=== PATIENT | male | born 1945 | race Caucasian/White ===

== ENCOUNTER 2018-07-10 09:22 | Emergency (ER) | payer MEDICARE, OTHER, SELFPAY ==
[2018-07-10 09:23] VITALS: BP 160/88; PULSE 89; RESP 17; TEMP 37.3; O2SAT 94; O2SAT 95; BMI 30.9
--- NOTE | 2018-07-10 09:24 | RAD_ITS ---
STUDY: X-RAY CHEST REASON FOR EXAM: Male, 73 years old. Cough and chest congestion. TECHNIQUE: PA and lateral views of the chest. COMPARISON: None. FINDINGS: The lungs are clear and expanded. Scattered calcified granulomas. There is no demonstrated pleural abnormality. Normal size heart. Normal mediastinum and luann. Normal visualized pulmonary arteries. Normal visualized aortic arch and descending thoracic aorta. There are degenerative changes of the visualized thoracic spine. Normal visualized ribs, clavicles, and shoulders. Hiatal hernia. RAD/Chest PA and Lateral IMPRESSION: No acute abnormality is seen. Electronically Signed: Miguel Snyder, at 10:37 EDT , Service support ,
--- NOTE | 2018-07-10 09:25 | ED.VISSUMM ---
- ER Visit Summary Date of Service: 07/10/18 Chief Complaint: Cough congestion fever History of Present Illness: The patient is a 73 M with cough congestion and myalgias for the past 3 days he noticed a temperature of 100 today. He has sputum that is clear but was yellow earlier today. He has no breathing difficulty. He has no abdominal pain nausea vomiting or diarrhea. Physical Examination: Not appear in acute distress. Moist mucous membranes, he has upper airway congestion, rhinorrhea, swollen nasal turbinates some postnasal drip. No C-spine tenderness supple neck. Regular rate and rhythm without any obvious murmurs Clear lungs bilaterally speaking in full sentences without any obvious respiratory distress Abdomen soft and nontender no guarding or rebound Moves all extremities without any difficulty or pain. Skin does not show any obvious rashes or lesions, no trauma. Alert oriented ?3 with no gross focal deficit Emergency Department Course and Treatment: An unremarkable ED work-up. He has bronchitis, he has yellow sputum and fever he may have early pneumonia I will treat as such. Discharge stable condition Impression: [Acute bronchitis] This note was generated with [employer] dictation software. It may contain incorrect words, spelling, and punctuation that were not noted in review of the chart prior to signing ED Disposition - Plan for ED Patient: Disposition: Home or Assisted Living Instructions: Acute Bronchitis Prescriptions: Doxycycline 100 mg PO DAILY #20 cap Referrals: Scooter Robertson [Primary Care Provider] - 5-7 Days
[2018-07-10 09:43] LABS: Absolute Lymphocyte Count 1.81 X10^3/ul (0.83-4.51); Absolute Neutrophil Count 8.1 X10^3/uL (2.0-7.7); Basophil# 0.01 X10^3/uL; Basophil% 0.1 % (0-1); Eosinophil# 0.15 X10^3/uL; Eosinophils% 1.3 % (0-5); Hematocrit 38.7 % (40-54); Hemoglobin 12.9 g/dl (13.0-16.5); Lymphocyte # 1.81 X10^3/ul (4.0); Lymphocyte % 16.1 % (19-41); Mean Corp Hgb Conc 33.3 g/gl (32-36); Mean Corpuscular Hgb 33.9 pg (27.0-32.0); Mean Corpuscular Volume 101.6 fL (80-94); Mean Platelet Vol. 9.8 fl (6.2-12.0); Monocyte% 9.8 % (0-10); Neutrophil # 8.13 X10^3/uL (2.7-7.7); Neutrophil % 72.6 % (47-70); Platelet Count 147 K/mm3 (150-450); RBC Distribution Width CV 15.7 % (11.6-14.6); Red Blood Count 3.81 M/mm3 (4.6-6.2); White Blood Count 11.2 K/mm3 (4.4-11.0)
[2018-07-10 09:44] LABS: POSITIVE COUNT NO; POSITIVE DIFFERENTIAL NO; POSITIVE MORPHOLOGY NO
[2018-07-10 10:00] LABS: AST(SGOT) 18 U/L (15-37); Alanine Aminotransfer ALT/SGPT 29 U/L (16-61); Albumin, Serum 3.7 g/dL (3.2-5.0); Alkaline Phosphatase 59 U/L (45-117); Anion Gap 6 (5-15); BUN 18 mg/dL (7-18); BUN/Creat Ratio 18.9 RATIO (10-20); Calcium,Total 8.9 mg/dL (8.5-10.1); Chloride 105 mmol/L (98-107); Creatinine, Serum 0.95 mg/dL (0.70-1.30); EST Glomerular Filtration Rate 82 mL/min (>60); Est Glom Filt Rate - Afr Amer 99 mL/min (>60); Estimated Creatinine Clearance 69.37 ml/min; Globulin 3.8 g/dL (2.2-4.2); Glucose 120 mg/dL (74-106); Potassium 4.1 mmol/L (3.5-5.1); Protein, Total 7.5 g/dL (6.4-8.2); Sodium Level 136 mmol/L (136-145)
[2018-07-10 10:47] VITALS: BP 126/65; PULSE 78; RESP 17; TEMP 37.4; O2SAT 94
== END 2018-07-10 10:48 | disposition home or self-care (01) ==
PROVIDERS: Emergency Provider Emergency Medicine; Family Provider Internal Medicine; PCP Internal Medicine
DX: J20.9 Acute bronchitis, unspecified (principal); J06.9 Acute upper respiratory infection, unspecified; E11.9 Type 2 diabetes mellitus without complications; Z79.84 Long term (current) use of oral hypoglycemic drugs
CPT/HCPCS: 71046; 80053; 85025; 87804; 99283

== ENCOUNTER 2018-07-23 21:54 | Observation (INO) | payer MEDICARE, OTHER, SELFPAY ==
[2018-07-23 21:55] VITALS: BP 161/74; PULSE 83; RESP 18; TEMP 36.5; O2SAT 94; BMI 31.8
--- NOTE | 2018-07-23 22:19 | CT_ITS ---
STUDY: CT ABDOMEN AND PELVIS WITHOUT CONTRAST REASON FOR EXAM: Male, 73 years old. Low back pain. RADIATION DOSAGE (If Supplied By Facility): CTDIvol = ( 16.36 ) mGy, DLP = ( 837.91 ) mGycm TECHNIQUE: Transaxial images were obtained from the dome of the diaphragm to the symphysis pubis without oral contrast, and without intravenous contrast. Sagittal and coronal images were reconstructed. Individualized dose optimization techniques were used for this CT. COMPARISON: July 12, 2016. FINDINGS: There are scattered small pulmonary calcifications consistent with old granulomatous disease. There are coronary calcifications. There is hepatomegaly with diffuse hepatic enlargement. There are surgical clips in the gallbladder fossa consistent with a prior cholecystectomy. Normal spleen. Normal pancreas. Normal bilateral adrenal glands. There is 0.2 cm calcification of the right kidney. There is 3.0 cm cyst of the left kidney. There is a small hiatal hernia. Normal small intestine. Normal colon. There is moderate stool. The appendix is visualized and appears normal. There is diffuse atherosclerotic calcification of the abdominal aorta, without a demonstrated aneurysm. Normal inferior vena cava. Normal retroperitoneum. Normal urinary bladder. There is no free fluid in the abdomen or pelvis. There is a small supraumbilical hernia containing fat. There are diffuse degenerative changes of the visualized lumbar spine. There is compression fracture of the lower spine with prior kyphoplasty. CT/Abdomen/Pelvis without Cont IMPRESSION: Right renal calcification. No hydronephrosis. Hepatomegaly. Electronically Signed: Ryan Torrez MD at 23:46 EDT , Service support ,
[2018-07-23] MEDS: Ondansetron 4 MG/2 ML Vial IV (22:42)
[2018-07-23] MEDS: Morphine 4 MG/ML Syringe IV (22:42)
[2018-07-23 22:45] VITALS: BP 131/80; PULSE 77; RESP 16; O2SAT 95
[2018-07-23 22:46] LABS: Absolute Lymphocyte Count 2.08 X10^3/ul (0.83-4.51); Absolute Neutrophil Count 5.1 X10^3/uL (2.0-7.7); Basophil# 0.02 X10^3/uL; Basophil% 0.3 % (0-1); Eosinophil# 0.04 X10^3/uL; Eosinophils% 0.5 % (0-5); Hematocrit 37.1 % (40-54); Hemoglobin 12.3 g/dl (13.0-16.5); Lymphocyte # 2.08 X10^3/ul (4.0); Lymphocyte % 26.1 % (19-41); Mean Corp Hgb Conc 33.2 g/gl (32-36); Mean Corpuscular Hgb 33.2 pg (27.0-32.0); Mean Platelet Vol. 9.3 fl (6.2-12.0); Monocyte# 0.78 X10^3/uL; Monocyte% 9.8 % (0-10); Neutrophil # 5.05 X10^3/uL (2.7-7.7); Neutrophil % 63.2 % (47-70); POSITIVE COUNT NO; POSITIVE DIFFERENTIAL NO; POSITIVE MORPHOLOGY NO; Platelet Count 163 K/mm3 (150-450); RBC Distribution Width CV 15.6 % (11.6-14.6); Red Blood Count 3.71 M/mm3 (4.6-6.2)
[2018-07-23] MEDS: 0.9% Normal Saline 1,000 ML 150 ML IV (22:46)
[2018-07-23 22:59] LABS: Anion Gap 7 (5-15); BUN 21 mg/dL (7-18); BUN/Creat Ratio 20.6 RATIO (10-20); Calcium,Total 9.3 mg/dL (8.5-10.1); Chloride 104 mmol/L (98-107); Creatinine, Serum 1.02 mg/dL (0.70-1.30); EST Glomerular Filtration Rate 76 mL/min (>60); Est Glom Filt Rate - Afr Amer 92 mL/min (>60); Estimated Creatinine Clearance 62.57 ml/min; Glucose 143 mg/dL (74-106); Sodium Level 137 mmol/L (136-145)
[2018-07-23 23:37] LABS: Mucous, Urine 0 SEEN /hpf (<or=2+); Red Blood Cells-Urine 0 SEEN /hpf (0-5); White Blood Cells 0 SEEN /hpf (0-5)
[2018-07-23 23:38] LABS: Color, Urine Yellow (Yellow); Glucose, Dipstick Normal (Normal); Ketone-Dipstick Negative (Negative); Leukocyte Esterase-Dipstick Negative /ul (Negative); Nitrite-Dipstick Negative (Negative); Occult Blood-Urine Negative /ul (Negative); Protein-Dipstick Negative (Negative); Specific Gravity, Urine 1.015 (1.002-1.030); Urine Bilirubin Dipstick Negative (Negative); Urine Clarity Clear (Clear); Urine Urobilinogen Normal (Normal)
[2018-07-23 23:43] LABS: Bacteria RARE /hpf (None Seen); Squamous Epithelial Cells - UA 0-5 SEEN /hpf (0-5)
[2018-07-23] MEDS: HYDROmorphone 1 MG/ML Syringe IV (23:47)
[2018-07-23] MEDS: diazePAM 2 MG Tablet PO (23:47)
--- NOTE | 2018-07-23 23:56 | HP.PCM_ITS ---
Problem List (1) Lower back pain Status: Acute Qualifiers: Chronicity: acute Back pain laterality: bilateral Sciatica presence: without sciatica Qualified Code(s): M54.5 - Low back pain History of Present Illness Date of Admission: 07/23/18 Chief Complaint: Low back pain The patient is a 73 year old M who was seen in the emergency room at [facility] with a chief complaint of low back pain and inability to ambulate secondary to low back pain. Patient states he moved some lawn furniture 3 days ago and noticed a sudden sharp pain in his lower back which has been poorly controlled with [id number] medications. Patient denies any symptoms of radiculopathy, he denies any problems with his bladder-he does complain of some constipation. Patient has had a history of degenerative disc disease of his lower back including a kyphoplasty of L3 and a microdiscectomy at L4. 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 Work-up in the emergency room included labs that were remarkable for a BUN of 21, hemoglobin was 12.3, glucose was 143. CT of the abdomen and pelvis was obtained which showed hepatomegaly, right renal calcification, moderate stool in colon, and diffuse degenerative changes of the lumbar spine with a compression fracture of the lower spine with prior kyphoplasty. Supraumbilical hernia containing fat was also noted to be present. Patient was given IV pain meds and Valium for muscle spasm, he had minimal relief of pain and it was felt that he would need to be placed in observation status to be seen by PT and OT and receive further treatment. Patient was placed in observation status on MedSurg 3. Past Medical History Past Medical History (Chronic Problems): Chronic Problems Herniation of nucleus pulposus (Chronic) DM2 (diabetes mellitus, type 2) (Chronic) Cellulitis (Chronic) Allergies cefepime Allergy (Verified 07/23/18 21:54) Rash Home Medications: Ambulatory Orders Medication Instructions Recorded Aspirin [Aspirin, Baby] 1 tab PO DAILY 07/11/16 Cyanocobalamin (Vitamin B-12) 500 mcg PO DAILY 07/11/16 [Vitamin B-12] Multivitamin [Daily Multiple 1 tab PO DAILY 07/11/16 Vitamin] Sitagliptin Phosphate [Januvia] 100 mg PO DAILY 07/11/16 metFORMIN HCl [Glucophage] 850 mg PO TIDCM 07/11/16 Doxycycline 100 mg PO DAILY #20 cap 07/10/18 Finasteride [Proscar] 5 mg PO DAILY 07/10/18 Glimepiride [Amaryl] 1 mg PO DAILY 07/10/18 Tamsulosin HCl [Flomax] 0.4 mg PO DAILY 07/10/18 Surgical History: cholecystectomy, rotator cuff repair, tonsillectomy, - - Kyphoplasty L4, microdiscectomy L3 Psychiatric History: No pertinent psych hx Lives: Spouse/ Significant Other Smoking Status: Never smoker Tobacco Use: Non-smoker Alcohol: None Drugs: None - *Family History Maternal History Items: - - History of CHF Paternal History Items: Heart Disease Review of Systems Constitutional: Denies: Anorexia, Chills, Fever, Night Sweats, Malaise, Weakness, Weight Change, Fatigue Eyes: Denies: Cataracts, Conjunctivae Inflammation, Double vision, Drainage HEENT: Denies: Difficulty Swallowing, Dysphasia, Ear Pain, Eye Pain, Hearing Changes, Nasal bleeding, Nasal Congestion, Post Nasal Drip Cardiovascular: Denies: Chest Pain, Claudication, Chest Pressure, Chest Tightness, Edema, Heaviness, Palpitations Respiratory: Denies: Cough, Hemoptysis, Pleuritic Pain, Shortness of Breath, Shortness of breath at rest, Shortness of breath upon exertion Gastrointestinal: Denies: Abdominal Pain, Constipation, Diarrhea, Hematemesis, Hematochezia, Nausea, Melena, Vomiting Genitourinary: Denies: Dysuria, Frequency, Hematuria, Hesitancy, Urgency Musculoskeletal: Reports: Back Pain - Over the lower lumbar area, Muscle pain - Over the lower lumbar area. Denies: Foot Pain, Hand Pain, Joint Pain, Joint stiffness, Joint swelling, Joint Tenderness, Leg Pain, Neck Pain, Shoulder Pain Skin: Denies: Dryness, Jaundice, Pruritis, Rash Neurological: Denies: Blurred vision, Double vision, Slurred speech, Difficulty swallowing, Focal weakness, Headaches, Incoordination, Numbness, Tingling Psychiatric: Denies: Anxiety, Depression, Homicidal Ideations, Suicidal Ideations Endocrine: Denies: Change in Body Habitus, Heat/ Cold Intolerance, Polydipsia, Polyuria Hematologic/ Lymphatic: Denies: Adenopathy, Anemia, Easy Bruising, Easy Bleeding, Petechiae, Purpura VTE Information - Inpt Only VTE Present on Admission: No VTE Mechan Device Prophylaxis: SCD's VTE Pharm Prophylaxis ordered?: No Reason prophylaxis not ordered:: Treatment Not Indicated - Physical Exam General: Alert, Oriented x3, Cooperative, Well developed, Well nourished HEENT: Atraumatic, PERRLA, EOMI, Normocephalic Oral: Moist Mucosa Neck: Supple, No JVD, Negative Carotid Bruits, No Nuchal Rigidity, Trachea Midline, Thyroid Normal Size and Texture Lungs: Clear to auscultation, Normal air movement, No rhonchi, No wheeze, No rales Cardiovascular: Regular rate, Regular Rhythm, Normal S1, Normal S2, No murmurs, No Ectopic Activity, PMI Normal, No rub noted, No Gallop Abdomen: Bowel Sounds Present, Soft, Non Tender, Non-Distended, Hernia - Large ventral abdominal hernia is noted Extremities: No edema, Capillary Refill Less than 3 Seconds Skin: No rashes, No breakdown Musculoskeletal: - - Decreased range of motion is noted in flexion and extension in the lumbar spine Neurological: Cranial nerves II-XII grossly intact, Neuro grossly intact, Unsteady Gait, Sensory exam intact to light touch and pain, Coordination normal, - - Patient has abnormal gait due to Psych/Mental Status: Normal Affect, Appropriate, Alert and oriented to time, place, person, mood and affect Vital Signs Temp Pulse Resp BP Pulse Ox 97.7 F L 77 16 131/80 H 95 07/23/18 21:55 07/23/18 22:45 07/23/18 22:45 07/23/18 22:45 07/23/18 22:45 Oxygen Delivery Method Room Air Weight: 99.1 kg Body Mass Index (BMI) 31.8 Finger Stick Blood Glucose 160 Laboratory Tests Past 24 Hrs 07/23/18 07/23/18 07/23/18 22:35 22:35 23:30 WBC 8.0 RBC 3.71 L Hgb 12.3 L Hct 37.1 L MCV 100.0 H MCH 33.2 H MCHC 33.2 RDW 15.6 H RDW Differential 57.0 H Plt Count 163 MPV 9.3 Immature Gran % (Auto) 0.100 Neut % (Auto) 63.2 Lymph % (Auto) 26.1 [place] % (Auto) 9.8 Eos % (Auto) 0.5 Baso % (Auto) 0.3 Absolute Neuts (auto) 5.1 Absolute Lymphs (auto) 2.08 Total Counted Not Reportable Sodium 137 Potassium 4.0 Chloride 104 Carbon Dioxide 26.0 Anion Gap 7 BUN 21 H Creatinine 1.02 Estim Creat Clear Calc 62.57 Est GFR (MDRD) Af Amer 92 Est GFR (MDRD) Non-Af 76 BUN/Creatinine Ratio 20.6 H Glucose 143 H Calcium 9.3 Urine Color Yellow Urine Clarity Clear Urine pH 6.0 Ur Specific [place] 1.015 Urine Protein Negative Urine Glucose (UA) Normal Urine Ketones Negative Urine Occult Blood Negative Urine Nitrite Negative Urine Bilirubin Negative Urine Urobilinogen Normal Ur Leukocyte Esterase Negative Urine RBC 0 SEEN Urine WBC 0 SEEN Ur Squamous Epith Cells 0-5 SEEN Urine Bacteria RARE Urine Mucus 0 SEEN Assessment/Plan All Active Problems Lower back pain (Acute) #1 acute low back pain-probably secondary to degenerative disc disease with muscle strain-patient will be placed and observation status on [facility] 3, I will place the patient on IV Decadron, programmed Valium at 2 mg 4 times a day, and he will receive IV pain medication as needed, patient will be seen by PT and OT. Patient does not want to be seen by Dr. Cordova due to the fact he had an osteomyelitis following his kyphoplasty by Dr. Cordova #2 degenerative disc disease of the lumbar spine # 3 type 2 diabetes-patient's blood sugars will be monitored, sliding scale insulin will be administered as needed, he may require more insulin coverage since he is on Decadron. #4 BPH #5 constipation-patient will be given mag citrate Code Visit OBSV E&M: 89609 Initial observation care L3
--- NOTE | 2018-07-23 23:57 | ED.VISSUMM ---
- ER Visit Summary Date of Service: 07/23/18 Chief Complaint: [Back pain] History of Present Illness: The patient is a 73 M [presents the emergency department with back pain that started 3 days ago. Patient states that he was moving some outdoor furniture around 3 days ago when he felt a sudden severe pain in his low back. Patient states the pain kind of radiates around both sides to just above his iliac crests. Pain is worse with movement. Patient having a hard time getting out of bed. He denies any pain radiating down his legs. He denies any change in bowel or bladder function other than he is had some mild constipation since yesterday. His last bowel movement was yesterday but was smaller than usual and normally he goes several times a day. He is feeling bloated. He is describing some discomfort in his abdomen. He denies any fever. He said no vomiting. He denies any saddle anesthesia. Patient denies urinary symptoms. Patient tells me he has had prior back surgery x2 with history of kyphoplasty and prior discectomy and laminectomy at L4-5.] Physical Examination: [HEENT-PERRLA, EOMI. Cranial nerves II through XII grossly intact. TMs clear. Mucous membranes moist. No adenopathy. Cardiovascular-regular rate and rhythm without murmur or ectopy Lungs-clear to auscultation, chest wall stable without crepitus or subcu emphysema Abdomen-normoactive bowel sounds, soft. Patient has some mild diffuse tenderness. There is no rebound, rigidity, or perineal signs. Back exam-patient has tenderness diffusely to the lower lumbar spine. Patient has tenderness over lumbar paraspinal muscle which are bilaterally. He has negative straight leg raises. Deep tendon reflexes are plus 1 out of 4 bilaterally at the patella and unable to obtain at the Achilles bilaterally. Patient has diminished ability to extend L5 on the right which is a chronic issue for him as patient has a foot drop on the right. Extremities-intact ?4, normal range of motion, normal pulses, atraumatic] Test Results: [CBC with differential obtained was unremarkable. Chemistries unremarkable. Urinalysis was normal. CT scan of the abdomen pelvis without contrast showed degenerative changes of the lumbar spine otherwise nothing acute.] Emergency Department Course and Treatment: [Patient was medicated with morphine and had some mild pain relief initially but then he was having a hard time getting off the CT table requiring several nurses to help him. Patient continues to complain of severe pain and he was medicated with Dilaudid 1 mg IV as well as Valium 2 mg p.o.] Treatment Plan: [Admit for pain control] Disposition: [Admit] Impression: [Intractable back pain Constipation] This note was generated with [employer] dictation software. It may contain incorrect words, spelling, and punctuation that were not noted in review of the chart prior to signing ED Disposition - Plan for ED Patient: Referrals: Scooter Robertson [Primary Care Provider] -
[2018-07-24 00:50] VITALS: BP 155/78; PULSE 76; RESP 16; TEMP 36.5; O2SAT 95; BMI 31.9
[2018-07-24] MEDS: dexAMETHasone 4 MG/ML Vial IV ×3 (01:26→11:00)
[2018-07-24] MEDS: Magnesium Citrate 300 ML PO (01:37)
[2018-07-24 06:18] VITALS: BP 137/73; PULSE 79; RESP 16; TEMP 36.4; O2SAT 93
[2018-07-24] MEDS: 0.9% NaCl Peripheral Flush Adult/Peds IV ×2 (06:24→11:00)
[2018-07-24 06:35] LABS: Bedside Glucose 215 mg/dL (70-110)
[2018-07-24] MEDS: Aspirin 81 MG TAB.CHEW PO (08:00)
[2018-07-24] MEDS: Glimepiride 1 MG Tablet PO (08:00)
[2018-07-24] MEDS: metFORMIN HCl 850 MG Tablet PO ×2 (08:00→11:00)
[2018-07-24] MEDS: diazePAM 2 MG Tablet PO (09:38)
[2018-07-24] MEDS: Finasteride 5 MG Tablet PO (09:38)
[2018-07-24] MEDS: LINAGLIPTIN 5 MG TABLET PO (09:38)
[2018-07-24] MEDS: Tamsulosin HCl 0.4 MG Capsule PO (09:38)
[2018-07-24 10:01] VITALS: BP 130/70; PULSE 77; RESP 18; TEMP 36.5; O2SAT 95
--- NOTE | 2018-07-24 10:27 | DCINST_ITS ---
You will use the following diet at home:: Cardiac Your food should be the consistency of: Regular Your liquids should be the consistency of: Regular/Thin Discharge Activity: Return to Normal Activity Weight Bearing Status: Weight bearing as tolerated Call your doctor if you observe: Uncontrolled pain Instructions: How Your Back Works, Back Safety: Pushing and Pulling, Back Safety: Lifting Allergies/Adverse Reactions: Allergies cefepime Allergy (Verified 07/23/18 21:54) Rash Medications to take at Discharge Aspirin [Aspirin, Baby] 1 tab PO DAILY 07/11/16 Cyanocobalamin (Vitamin B-12) [Vitamin B-12] 500 mcg PO DAILY 07/11/16 Multivitamin [Daily Multiple Vitamin] 1 tab PO DAILY 07/11/16 Sitagliptin Phosphate [Januvia] 100 mg PO DAILY 07/11/16 metFORMIN HCl [Glucophage] 850 mg PO TIDCM 07/11/16 Finasteride [Proscar] 5 mg PO DAILY 07/10/18 Glimepiride [Amaryl] 1 mg PO DAILY 07/10/18 Tamsulosin HCl [Flomax] 0.4 mg PO DAILY 07/10/18 Acetaminophen [Tylenol] 650 mg PO Q6H PRN PRN #30 tablet 07/24/18 MethylPREDNISolone DosePak [Medrol DosePak] 4 mg PO UD #1 box 07/24/18 The following prescriptions were given: Acetaminophen [Tylenol] 650 mg PO Q6H PRN PRN #30 tablet PRN Reason: Pain MethylPREDNISolone DosePak [Medrol DosePak] 4 mg PO UD #1 box Primary Care Physician: Scooter Robertson [Primary Care Provider] - Please follow up with your Primary Care Physician in: one week Test Results: Test results from this visit will be discussed in further detail at your follow- up appointment, if applicable. Proposed Discharge Date: 07/24/18
--- NOTE | 2018-07-24 10:27 | PCM.DC.SUM ---
Discharge Date and Diagnosis Date of Admission: 07/23/18 Date of Discharge: 07/24/18 - Primary Discharge Diagnosis acute back pain - Secondary Discharge Diagnosis Chronic Problems Herniation of nucleus pulposus (Chronic) DM2 (diabetes mellitus, type 2) (Chronic) Cellulitis (Chronic) Hospital Course and Treatment Imaging Results: Diagnostic Data Abdomen/Pelvis CT 07/23/18 22:19 IMPRESSION: Right renal calcification. No hydronephrosis. Hepatomegaly. Electronically Signed: Ryan Torrez MD at 23:46 EDT , Service support , Operations: None, - - L3 Kyphoplasty 07/13/16. Procedures: None Summary of Care Provided: The patient is a 73 year old M with a past medical history as listed. He was admitted through the ED on 07/24/2018 with a complaint of low back pain and inability to ambulate due to the pain. He had moved some lawn furniture 3 days prior to admission and notes as a substitute pain in his back which have been poorly controlled with [id number] pain medications. He had no radiculopathy symptoms and denied any urinary or bladder incontinence. He had a history of kyphoplasty of L3 microdiscectomy at L4 and subsequent osteomyelitis of his lower back due to the kyphoplasty. CT of the abdomen and pelvis showed diffuse degenerative changes of the lumbar spine with a chronic compression fracture of the lower spine with prior kyphoplasty. Patient was admitted to be managed for mechanical acute back pain. He was started on IV pain medication and Valium for muscle spasm. Due to his inability to ambulate, he was admitted and started on IV Solu-Medrol. Patient remained stable and by the day after admission, he felt much better and was able to get up and ambulate. He was evaluated by PT/OT. He remained stable and was discharged home with a script for tylenol and medrol dose pack. Patient seen and examined prior to discharge. He had no complaints. Back pain had resolved. He denied any fever, chills, cough, chest pain, palpitations, dizziness, chest pain, diarrhea or vomiting. REview of systems was otherwise negative. Labs and vitals reviewed. o/e: Vital Signs Height 5 ft 9.5 in Weight: 219 lb 5.759 oz Weight in Pounds 219.4 lbs Pulse Ox 93 Temperature 98.5 F Pulse Rate 75 Respiratory Rate 16 Blood Pressure 126/62 Blood Pressure Position Semi-Fowlers []General: Alert, Oriented x3, Cooperative, Well developed, Well nourished HEENT: Atraumatic, PERRLA, EOMI, Normocephalic Oral: Moist Mucosa Neck: Supple, No JVD, Negative Carotid Bruits, No Nuchal Rigidity, Trachea Midline, Thyroid Normal Size and Texture Lungs: Clear to auscultation, Normal air movement, No rhonchi, No wheeze, No rales Cardiovascular: Regular rate, Regular Rhythm, Normal S1, Normal S2, No murmurs, No Ectopic Activity, PMI Normal, No rub noted, No Gallop Abdomen: Bowel Sounds Present, Soft, Non Tender, Non-Distended, Hernia - Large ventral abdominal hernia is noted Extremities: No edema, Capillary Refill Less than 3 Seconds Skin: No rashes, No breakdown Musculoskeletal: - - no tenderness on palpation. Neurological: Cranial nerves II-XII grossly intact, Neuro grossly intact, Unsteady Gait, Sensory exam intact to light touch and pain, Coordination normal Psych/Mental Status: Normal Affect, Appropriate, Alert and oriented to time, place, person, mood and affect Plan as above. - Physical Exam Vital Signs Temp Pulse Resp BP Pulse Ox 97.7 F L 77 18 130/70 H 95 07/24/18 10:01 07/24/18 10:01 07/24/18 10:01 07/24/18 10:01 07/24/18 10:01 Oxygen Delivery Method Room Air Weight: 219 lb 5.759 oz Body Mass Index (BMI) 31.9 Finger Stick Blood Glucose 160 Intake and Output for Last 24 Hours 07/22/18 07/23/18 07/24/18 23:59 23:59 23:59 Intake Total 360 / 360 Balance 360 / 360 Laboratory Tests Past 24 Hrs 07/23/18 07/23/18 07/23/18 22:35 22:35 23:30 WBC 8.0 RBC 3.71 L Hgb 12.3 L Hct 37.1 L MCV 100.0 H MCH 33.2 H MCHC 33.2 RDW 15.6 H RDW Differential 57.0 H Plt Count 163 MPV 9.3 Immature Gran % (Auto) 0.100 Neut % (Auto) 63.2 Lymph % (Auto) 26.1 [place] % (Auto) 9.8 Eos % (Auto) 0.5 Baso % (Auto) 0.3 Absolute Neuts (auto) 5.1 Absolute Lymphs (auto) 2.08 Total Counted Not Reportable Sodium 137 Potassium 4.0 Chloride 104 Carbon Dioxide 26.0 Anion Gap 7 BUN 21 H Creatinine 1.02 Estim Creat Clear Calc 62.57 Est GFR (MDRD) Af Amer 92 Est GFR (MDRD) Non-Af 76 BUN/Creatinine Ratio 20.6 H Glucose 143 H Calcium 9.3 Urine Color Yellow Urine Clarity Clear Urine pH 6.0 Ur Specific [place] 1.015 Urine Protein Negative Urine Glucose (UA) Normal Urine Ketones Negative Urine Occult Blood Negative Urine Nitrite Negative Urine Bilirubin Negative Urine Urobilinogen Normal Ur Leukocyte Esterase Negative Urine RBC 0 SEEN Urine WBC 0 SEEN Ur Squamous Epith Cells 0-5 SEEN Urine Bacteria RARE Urine Mucus 0 SEEN POC Glucose 07/24/18 06:30 POC Glucose 215 H Discharge Diet: Low fat/ Low Cholesterol Discharge Activity: Return to Normal Activity Weight Bearing Status: Weight bearing as tolerated Call your doctor if you observe: Uncontrolled pain Home Medications: Medications to take at Discharge Aspirin [Aspirin, Baby] 1 tab PO DAILY 07/11/16 Cyanocobalamin (Vitamin B-12) [Vitamin B-12] 500 mcg PO DAILY 07/11/16 Multivitamin [Daily Multiple Vitamin] 1 tab PO DAILY 07/11/16 Sitagliptin Phosphate [Januvia] 100 mg PO DAILY 07/11/16 metFORMIN HCl [Glucophage] 850 mg PO TIDCM 07/11/16 Finasteride [Proscar] 5 mg PO DAILY 07/10/18 Glimepiride [Amaryl] 1 mg PO DAILY 07/10/18 Tamsulosin HCl [Flomax] 0.4 mg PO DAILY 07/10/18 Acetaminophen [Tylenol] 650 mg PO Q6H PRN PRN #30 tablet 07/24/18 MethylPREDNISolone DosePak [Medrol DosePak] 4 mg PO UD #1 box 07/24/18 Following Prescrptions Were Given to Patient: Acetaminophen [Tylenol] 650 mg PO Q6H PRN PRN #30 tablet PRN Reason: Pain MethylPREDNISolone DosePak [Medrol DosePak] 4 mg PO UD #1 box Primary Care Physician: Scooter Robertson [Primary Care Provider] - Please follow up with your Primary Care Physician in: one week Patient Instructions: How Your Back Works, Back Safety: Lifting, Back Safety: Pushing and Pulling Disposition: Home Minutes spent on discharge:: 35 Patient Condition:: Stable Medical Necessity - Tobacco Use Smoking Status: Never smoker Tobacco Use: Non-smoker Meaningful Use Info Meaningful Use Diagnoses (Choose all that apply): None applicable Code Visit Inpatient E&M: 85322 Disch Hosp
[2018-07-24 11:06] LABS: Bedside Glucose 278 mg/dL (70-110)
--- NOTE | 2018-07-24 11:46 | CASEMGMT ---
Addendum entered by Doc Aguilera 07/24/18 11:54: ARIANA Luna, made aware pt would like assistance with completing AD paperwork. Original Note: RN CM TOTER CM to room to meet with patient for initial transition planning/care coordination assessment. RN JACKELYN introduced self and role at [facility]. Pt voices understanding and consents to assessment at this time. Pt resting in bed in no distress at this time. @ bedside. Pt is A/O at this time and answers all questions appropriately. Care providers, pharmacy, and demographics verified/updated at this time. PCP: Dr Robertson Specialists: none Preferred Pharmacy: [facility] Insurance: [facility], MMO Prescription Benefit: [employer], formerly [employer] Living Will/HPOA: [facility] does not have LW or HCPOA . States would like to talk to SW to complete paperwork. Pt planning to go home after lunch. Pt and made aware that SW may not be able to see him prior to discharge and, if not, he can come in as an outpatient to complete AD. Provided information on advanced directives and given Social Service rac card with number to call if chooses in the future to utilize [facility] social work LNOK: Living Arrangements: Lives with in 2-story home. Rails on stairs. Denies difficulty with stairs, staing we're just careful on them. States is indpendent with personal ADL's. and pt share home mgmt tasks. Transportation: Pt states drives self and states no transportation concerns at this time. able to drive pt home on d/c. DME: States has/uses the following DME: rails/grab bars, hand held shower, sock donnor. Has handicap bathroom. Has the following DME but does not use: shower chair, walker, W/C. Pt states no need for further DME at this time. HHC/SNF: Hx RU @ [facility] and [facility]. Denies needs of either on discharge. Pt wishes to return home and states has no concerns with going home at time of discharge. CM to follow for any discharge planning/needs. Pt voices no further concerns/needs at this time. Advised pt to ask for CM if any further questions/concerns/needs arise. Voices understanding. PLAN: Home with spousal support and discharge plans in place. SW consult for AD. Jenifer DCN RN CM
[2018-07-24 12:50] VITALS: BP 126/62; PULSE 75; RESP 16; TEMP 36.9; O2SAT 93
== END 2018-07-24 12:59 | disposition home or self-care (01) ==
LOC: ED 22:49 → MS3 07-24 00:10
PROVIDERS: Admitting Provider Internal Medicine; Emergency Provider Emergency Medicine; Family Provider Internal Medicine; PCP Internal Medicine; Referring Provider Internal Medicine; Visit Provider Student in an Organized Health Care Education/Training Program
DX: M54.5 Low back pain (principal); E11.9 Type 2 diabetes mellitus without complications; K59.00 Constipation, unspecified; N40.0 Benign prostatic hyperplasia without lower urinary tract symptoms; M51.36 Other intervertebral disc degeneration, lumbar region; Z79.899 Other long term (current) drug therapy; Z79.84 Long term (current) use of oral hypoglycemic drugs; Z79.82 Long term (current) use of aspirin
CPT/HCPCS: 74176; 80048; 81001; 82962; 85025; 96374; 96375; 96376; 97161; 99218; 99285; A4216; G0378; J2405

== ENCOUNTER 2018-07-28 20:10 | Emergency (ER) | payer MEDICARE, OTHER, SELFPAY ==
[2018-07-24 00:50] VITALS: BMI 31.9
[2018-07-28 20:10] VITALS: BP 136/83; PULSE 76; PULSE 85; RESP 14; RESP 18; TEMP 36.7; O2SAT 96; O2SAT 97; BMI 32.1
[2018-07-28] MEDS: diazePAM 5 MG Tablet 2.5 MG PO (20:50)
[2018-07-28] MEDS: oxyCODONE 5 MG Tablet PO (20:50)
[2018-07-28] MEDS: Lidocaine 5% Patch 1 PATCH TOPICAL (20:53)
--- NOTE | 2018-07-28 21:03 | ED.VIS.BACK ---
History of Present Illness Chief Complaint: Back Narrative: Patient presenting for evaluation secondary to back pain. Patient reports that last week he was lifting some lawn furniture, had an immediate onset of back pain, but it progressively got worse over the course of 3 days. Is located in his lower back, its both central and paraspinal and does not radiate down his legs. Is not associated with any sort of numbness weakness bowel or bladder incontinence or fevers patient has not had any recent surgeries or injections and denies any history of IV drug abuse. Patient was actually in the emergency department for this, had a work-up and had intractable pain with an inability to ambulate and was admitted. Patient states that he was given Dilaudid and Valium when he was in the hospital which seemed to improve his symptoms, but when he was discharged he was only sent home with a Medrol pack and with Tylenol. Patient states that since then his back pain is been getting somewhat worse again, despite completing his steroid taper. He denies any new symptoms or new injuries. Review of systems otherwise negative. Past Medical History - Allergies and Home Meds Allergies/Adverse Reactions: Allergies cefepime Allergy (Verified 07/28/18 20:14) Rash Primary Care Physician: Scooter Robertson [Primary Care Provider] - 3-5 Days Surgical History: cholecystectomy, rotator cuff repair, tonsillectomy, - - Kyphoplasty L4, microdiscectomy L3 Smoking Status: Never smoker - Family History Maternal Family History: Reports: - - History of CHF Paternal Family History: Reports: Heart Disease Review of Systems All systems negative except as indicated General: Denies: Fever Musculoskeletal: Reports: Back pain Physical Exam Vital Signs/Narrative: Vital Signs Temp Pulse Resp BP Pulse Ox 07/28/18 20:10 98.0 F 76 18 136/83 H 97 General: Well nourished, Well developed Head: Normocephalic, Atraumatic Eyes: Perrl, EOMI ENT: Moist mucous membranes, No rhinorrhea Cardiovascular: Regular rate, Regular rhythm, No murmurs, - - 2+ PT pulses bilaterally Abdomen: Soft, Nontender Back: Paraspinal Tenderness - bilateral Extremeties: Nontender, No edema Skin: Normal color Neuro: Alert, Oriented, Normal Strength, Normal Sensation, Normal DTR, - - 5 out of 5 strength at the hip knee ankle and foot with a mild amount of foot drop on the right which the patient states is baseline secondary to a surgical complication Psychological: Normal affect Diagnostic/Tx/Re-eval - Medical Decision Making Patient presented secondary to back pain. He has no red flag signs or symptoms. I reviewed his imaging, there is no indication for repeat imaging or repeat work-up at this point. Patient is simply stating that he is having persistent pain, his physical exam and history are consistent with a strain. Patient will be sent home with a protracted course of Percocet and Valium as well as lidocaine patches at his request. He was recommended range of motion and stretching and follow-up with primary care. Disposition: Home ED Disposition - Plan for ED Patient: Disposition: Home or Assisted Living Diagnosis: Lumbar strain Instructions: ED Sprain Strain Lumbar Prescriptions: Oxycodone HCl/Acetaminophen [Percocet 5/325] 1 tab PO Q6H PRN PRN 3 Days #12 tab PRN Reason: Pain Diazepam [Valium] 2 mg PO TID PRN PRN #10 tab PRN Reason: Vertigo Lidocaine [Lidoderm Patch] 1 patch TOPICAL DAILY #10 patch Referrals: Scooter Robertson [Primary Care Provider] - 3-5 Days
[2018-07-28 21:20] VITALS: BP 132/80; PULSE 70; RESP 14; O2SAT 97
== END 2018-07-28 21:21 | disposition home or self-care (01) ==
LOC: ED 21:15
PROVIDERS: Emergency Provider Emergency Medicine; Family Provider Internal Medicine; PCP Internal Medicine
DX: S39.012A Strain of muscle, fascia and tendon of lower back, initial encounter (principal); X50.0XXA Overexertion from strenuous movement or load, initial encounter; Y93.89 Activity, other specified; Y92.008 Other place in unspecified non-institutional (private) residence as the place of occurrence of the external cause; Y99.8 Other external cause status
CPT/HCPCS: 99284

== ENCOUNTER 2018-08-04 00:30 | Emergency (ER) | payer MEDICARE, OTHER, SELFPAY ==
[2018-08-04 00:31] VITALS: BP 172/78; PULSE 83; RESP 19; TEMP 36.4; O2SAT 98; BMI 31.7
--- NOTE | 2018-08-04 01:08 | ED.VISSUMM ---
- ER Visit Summary Date of Service: 08/04/18 Chief Complaint: Back pain History of Present Illness: The patient is a 73 M with back pain for about 3 weeks. This started after moving some furniture. No fever chills cough or congestion. No urinary retention symptoms. Physical Examination: Patient has lumbar tenderness, he has loss of lordosis, he has a negative straight leg test neurologically intact. Normal plantarflexion and dorsiflexion of both feet and great toes bilaterally. Emergency Department Course and Treatment: Patient was treated with analgesia muscle relaxants, he has those at home also, he has an appointment to get an MRI in 4 days. He has no neurological symptoms he is stable for discharge Disposition: Discharge stable condition Impression: [Back pain] This note was generated with [employer] dictation software. It may contain incorrect words, spelling, and punctuation that were not noted in review of the chart prior to signing ED Disposition - Plan for ED Patient: Disposition: Home or Assisted Living Instructions: ED Sprain Strain Lumbar Referrals: Scooter Robertson [Primary Care Provider] - 3-5 Days
[2018-08-04] MEDS: diazePAM 5 MG Tablet PO (01:16)
[2018-08-04] MEDS: HYDROmorphone 1 MG/ML Syringe IM (01:16)
== END 2018-08-04 01:41 | disposition home or self-care (01) ==
PROVIDERS: Emergency Provider Emergency Medicine; Family Provider Internal Medicine; PCP Internal Medicine
DX: M54.5 Low back pain (principal)
CPT/HCPCS: 96372; 99284

== ENCOUNTER → 2018-08-07 | Outpatient (CLI) | payer MEDICARE, OTHER, SELFPAY ==
[2018-07-28 20:10] VITALS: BMI 32.1
[2018-08-04 00:31] VITALS: BMI 31.7
--- NOTE | 2018-08-07 16:36 | MRI_ITS ---
HISTORY:lumbar disc disease, SEVERE LOW BACK PAIN MR Spine Lumbar W/O Contrast Technique:Sagittal T1-T2 and STIR and axial T1 and T2-weighted images # of images including paperwork:139 Comparison:August 30, 2016 Findings: The conus ends at the T12-L1 disc space and appears within normal limits On today's study there is a linear area of decreased signal is seen extending to the superior aspect of the L1 vertebral body which demonstrates surrounding T1 low signal and increased STIR signal is compatible with an acute fracture. This does extend into the posterior wall with mild bulging of the posterior wall seen best on STIR image 8 series 6. This is not imaged on axial T2-weighted images however on axial T1-weighted images the posterior bulging is not well visualized. The canal at this level measures approximately 1.5 cm.. T12-L1: Disc height and hydration are preserved. There is no evidence of the disc contour abnormality or canal stenosis. No significant neural foraminal narrowing or nerve root impingement. L1-2: Disc height and hydration are preserved. There is no evidence of the disc contour abnormality or canal stenosis. No significant neural foraminal narrowing or nerve root impingement. L2-3: Disc height and hydration are preserved. There is no evidence of the disc contour abnormality or canal stenosis. No significant neural foraminal narrowing or nerve root impingement. L3-4:Again noted is irregularity involving the L3 vertebral body with loss of height and prior kyphoplasty. There is no significant edema seen on today's study. There is intravertebral disc protrusion involving the inferotemporal to the L3 vertebral body. There is decreased disc height and hydration at this level. Posterior osteophytes are seen asymmetric to the left. There is a trefoil appearance to the canal. The thecal sac is mildly flattened and measures approximately 1 cm. There is no evidence of nerve impingement. There is mild bilateral neural foraminal narrowing L4-5:Decreased disc height and hydration. Trefoil appearance of the canal. There is a diffuse annular bulge disc material extending into the neural foramen bilaterally slightly greater on the right. The prior study was obtained with contrast and demonstrated residual disc material seen in the right lateral recess. There is difficult to assess for this without intravenous contrast however I suspect it is present on image 10 series 9. I would consider repeating the study with intravenous contrast for further evaluation if clinically indicated There is no central canal stenosis. There is moderate right and mild left neural foraminal narrowing. No significant nerve root impingement L5-S1:Decreased disc height and hydration with posterior osteophytes. There is mild down neural foraminal narrowing. Mild subarticular recess narrowing. There is minimal effacement of the bilateral L5 nerve roots as they exit the foramen. This is similar to prior study MRI/Spine Lumbar (Routine) IMPRESSION: Acute fracture involving the superior aspect of the L1 vertebral body extending from the anterior to the posterior wall. Minimal posterior wall bulge but no evidence of canal stenosis. Similar compression of the L3 vertebral body L4-5 there may be persistent disc material within the canal however without contrast is difficult to assess. No significant nerve impingement L5-S1 mild subarticular recess narrowing with minimal effacement of bilateral L5 nerve root similar to prior study at 1900 Reported and signed by: Shannon Almeida DO Electronically Signed: Shannon Almeida DO at 18:59 EDT Tel , Service support ,
== END | disposition home or self-care (01) ==
LOC: MRI 16:21
PROVIDERS: Family Provider Internal Medicine; PCP Internal Medicine; Referring Provider Internal Medicine; Visit Provider Internal Medicine
DX: M51.9 Unspecified thoracic, thoracolumbar and lumbosacral intervertebral disc disorder (principal)
CPT/HCPCS: 72148

== ENCOUNTER → 2018-09-08 | Outpatient (CLI) | payer MEDICARE, OTHER, SELFPAY ==
--- NOTE | 2018-09-08 18:52 | RAD_ITS ---
STUDY: X-RAY - ABDOMEN/PELVIS REASON FOR EXAM: Male, 73 years old. Pain TECHNIQUE: 2 views COMPARISON: None. FINDINGS: Normal visualized lung bases. There is an unremarkable bowel gas pattern. There is no demonstrated free abdominal air. The visualized liver, spleen and kidneys are grossly normal in size and morphology. Surgical clips in the right upper quadrant. Normal soft tissue structures. Gender vertebral changes. Mild compression of previous vertebroplasty of L3. RAD/Abdomen Single View IMPRESSION: No sign of bowel obstruction. Electronically Signed: Fritz Rivers DO at 23:58 EDT Tel [phone], Service support ,
== END | disposition home or self-care (01) ==
LOC: RAD 18:46
PROVIDERS: Family Provider Internal Medicine; PCP Internal Medicine; Referring Provider Internal Medicine; Visit Provider Internal Medicine
DX: R10.9 Unspecified abdominal pain (principal)
CPT/HCPCS: 74018

== ENCOUNTER 2018-09-30 08:46 | Emergency (ER) | payer MEDICARE, OTHER, SELFPAY ==
[2018-09-30] VITALS (7 sets, daily range): BP systolic 118–136; BP diastolic 65–72; PULSE 75–100; RESP 14–16; TEMP 36.4–36.7; O2SAT 97–98; BMI 31.0
--- NOTE | 2018-09-30 09:00 | CT_ITS ---
STUDY: CT ABDOMEN AND PELVIS WITH CONTRAST REASON FOR EXAM: Male, 73 years old. 4 week history of intermittent vomiting. RADIATION DOSAGE (If Supplied By Facility): CTDIvol = ( 16.78 ) mGy, DLP = ( 1053.38 ) mGycm TECHNIQUE: Transaxial images were obtained from the dome of the diaphragm to the symphysis pubis with oral contrast. 100 IV/Oral Isovue 300 was administered. Sagittal and coronal images were reconstructed. Individualized dose optimization techniques were used for this CT. COMPARISON: Comparison is made with prior examination dated July 23, 2018. FINDINGS: Stable calcified granuloma in the posterior medial segment of the right lower lobe. The visualized portions of the heart are within normal limits. There is decreased attenuation of the liver consistent with steatosis. There are surgical clips in the gallbladder fossa consistent with a prior cholecystectomy. Normal spleen. Normal pancreas. Normal bilateral adrenal glands. Normal right kidney. There is a 2.8 sinus cyst in the lateral inferior aspect of the left kidney. There is a small hiatal hernia. Normal small intestine. There are multiple colonic diverticula consistent with diverticulosis. The appendix is visualized and appears normal. There is diffuse atherosclerotic calcification of the abdominal aorta, without a demonstrated aneurysm. Normal inferior vena cava. Normal retroperitoneum. Distended urinary bladder. There is enlargement of the prostate gland. This measures 4.2 cm x 4.9 cm. Normal abdominal wall. There are diffuse degenerative changes of the visualized lumbar spine. Prior vertebroplasty of the L3 vertebrae with loss of height. 50% loss of height of the superior end plate of the L2 vertebrae. CT/Abdomen/Pelvis WITH Contrast IMPRESSION: Sigmoid diverticulosis. Fatty infiltration of the liver. Distended urinary bladder. Prostatic enlargement. Electronically Signed: Miguel Snyder, at 11:26 EDT , Service support ,
[2018-09-30] MEDS: 0.9% Normal Saline 1,000 ML 1000 ML IV (09:14)
[2018-09-30] MEDS: Ondansetron 4 MG/2 ML Vial IV (09:14)
[2018-09-30 09:33] LABS: Absolute Lymphocyte Count 0.37 X10^3/uL (0.83-4.51); Absolute Neutrophil Count 17.7 X10^3/uL (2.0-7.7); Basophil# 0.01 X10^3/uL; Basophil% 0.1 % (0-1); Eosinophil# 0.05 X10^3/uL; Eosinophils% 0.3 % (0-5); Hematocrit 35.7 % (40-54); Hemoglobin 12.2 g/dL (13.0-16.5); Lymphocyte # 0.37 X10^3/ul (4.0); Lymphocyte % 1.9 % (19-41); Mean Corp Hgb Conc 34.2 g/dL (32-36); Mean Corpuscular Hgb 34.8 pg (27.0-32.0); Mean Corpuscular Volume 101.7 fL (80-94); Monocyte# 1.28 X10^3/uL; Monocyte% 6.6 % (0-10); NRBC Flagged by Analyzer 0.1 % (0-5); Neutrophil # 17.69 X10^3/uL (2.7-7.7); Neutrophil % 90.5 % (47-70); POSITIVE DIFFERENTIAL YES; Platelet Count 153 K/mm3 (150-450); RBC Distribution Width CV 16.5 % (11.6-14.6); RBC Distribution Width SD 61.1 fl (35.1-43.9); Red Blood Count 3.51 M/mm3 (4.6-6.2); White Blood Count 19.5 K/mm3 (4.4-11.0)
[2018-09-30 09:36] LABS: Differential Indicated SCAN CRITERIA MET
[2018-09-30 09:47] LABS: AST(SGOT) 16 U/L (15-37); Alanine Aminotransfer ALT/SGPT 25 U/L (16-61); Albumin, Serum 3.7 g/dL (3.2-5.0); Alkaline Phosphatase 61 U/L (45-117); Anion Gap 9 (5-15); BUN 18 mg/dL (7-18); BUN/Creat Ratio 18.6 RATIO (10-20); Calcium,Total 8.8 mg/dL (8.5-10.1); Chloride 106 mmol/L (98-107); Creatinine, Serum 0.97 mg/dL (0.70-1.30); EST Glomerular Filtration Rate 81 mL/min (>60); Est Glom Filt Rate - Afr Amer 97 mL/min (>60); Globulin 3.7 g/dL (2.2-4.2); Glucose 188 mg/dL (74-106); Lipase 165 U/L (73-393); Potassium 4.1 mmol/L (3.5-5.1); Protein, Total 7.4 g/dL (6.4-8.2); Sodium Level 138 mmol/L (136-145)
[2018-09-30 09:53] LABS: Differential Comment SCANNED; Hypochromasia RARE; Macrocytosis 1+; Platelet Estimate ADEQUATE (ADEQ)
[2018-09-30 11:47] LABS: Mucous, Urine 0 SEEN /hpf (<or=2+); Red Blood Cells-Urine 0 SEEN /hpf (0-5); White Blood Cells 0 SEEN /hpf (0-5)
[2018-09-30 11:50] LABS: Color, Urine Yellow (Yellow); Glucose, Dipstick Normal (Normal); Ketone-Dipstick Negative (Negative); Leukocyte Esterase-Dipstick Negative /ul (Negative); Nitrite-Dipstick Negative (Negative); Occult Blood-Urine Negative /ul (Negative); Protein-Dipstick 15 mg/dl (Negative); Urine Bilirubin Dipstick Negative (Negative); Urine Clarity Clear (Clear); Urine Urobilinogen Normal (Normal)
[2018-09-30 11:56] LABS: Bacteria RARE /hpf (None Seen); Squamous Epithelial Cells - UA 0-5 SEEN /hpf (0-5)
--- NOTE | 2018-09-30 12:23 | NURSING ---
[id number] HUANG [phone]. IN ROOM WITH A PATIENT.
--- NOTE | 2018-09-30 12:26 | NURSING ---
CALLED DR HUANG OFFICE AGAIN. HAD TO LEAVE MESSAGE
--- NOTE | 2018-09-30 13:27 | ED.DCSUM_ITS ---
- ER Visit Summary Date of Service: 09/30/18 Chief Complaint: Nausea and vomiting History of Present Illness: The patient is a 73 M with nausea vomiting for weeks. It has been bilious. Associated with hiccups. He has now started to have diarrhea. Nonbloody. No significant pain. No fevers. No urinary symptoms. He was recently found to have a elevated white blood cell count and was started on Cipro. He has no urinary symptoms. No skin changes or joint pain. No other associated symptoms. Physical Examination: Afebrile and vital signs unremarkable except heart rate 100. Alert and oriented. Heart regular. Lungs clear. Abdomen soft and nontender. Skin appears unremarkable. Test Results: White count 19.5 and hemoglobin 12.2. CMP, lipase, urinalysis unremarkable. Stool studies were ordered, but not collected as the patient was unable to provide a sample. Blood and urine cultures pending. CT abdomen and pelvis showed diverticulosis, fatty liver, distended urinary bladder, and enlarged prostate. Emergency Department Course and Treatment: Patient was treated with fluids and Zofran while awaiting results. His work-up was all fairly unremarkable. He had a distended bladder and enlarged prostate, but no symptoms there. He was able to urinate. His urinalysis was unremarkable. His white count was elevated, 19.5. This is new. I am not sure the source of this and I spoke with his PCP to arrange follow-up. His PCP was concerned, and did not know how to best approach this from an outpatient standpoint and suggested observation to watch for fevers or any other new symptoms. I did contact the hospitalist and he will observe the patient. I did evaluate the patient again. He has no other infectious symptoms or possible sources of the leukocytosis. Hospitalist evaluated the patient in the ED. Please refer to his separate note. After discussion with the patient, the hospitalist is discharging the patient. Treatment Plan: As above Disposition: Discharge per hospitalist Impression: 1. Leukocytosis 2. Vomiting and diarrhea This note was generated with [employer] software. It may contain incorrect words, spelling, and punctuation that were not noted in review of the chart prior to signing ED Disposition - Plan for ED Patient: Referrals: Scooter Robertson [Primary Care Provider] -
--- NOTE | 2018-09-30 13:42 | NURSING ---
305 OBS LEUKOCYTOSIS KOTSONIS
--- NOTE | 2018-09-30 13:52 | PN_ITS ---
Subjective: 73-year-old male with history of type 2 diabetes, BPH, multiple vertebral fractures presents with little over 1 month of nausea vomiting and then an episode of diarrhea. He states that he typically has these symptoms at night after dinner. His makes him the dinner and she eats the same thing and has not had any difficulty with his symptoms. He states a lot of nausea and vomiting times to be associated with hiccups. His day is usually comprised of waking up at 5 AM and driving to work in [place], he eats breakfast at 5 lunch at 10 but then he does not eat anything until he gets home at 6:00 at night. At that point his makes him a big dinner. He states that he discuss this with his primary care physician who recommended that he come to the hospital for work-up. In the ER he had an elevated white count without a fever, chills, tachycardia or tachypnea. He does not meet any criteria for Sirs. He had a CT scan of his abdomen and pelvis which was unremarkable for any acute pathology and no signs of a small bowel obstruction, he has a history of a cholecystectomy. In fact, when I walked into the room for evaluation today he was drinking a soda from [employer] and eating a chocolate chip cookie. He states that he feels perfectly fine today and is not having any of the symptoms that brought him in to the hospital to begin with. A UA was obtained given his enlarged bladder and his history of BPH, and his UA was unremarkable, with no signs of urinary tract infection. The ER for the sake of completeness with a white count of 19.5, did obtain a urine culture and blood cultures. He denies any recent history of shortness of breath or cough. Vitals/I&O's: Vital Signs Temp Pulse Resp BP Pulse Ox 98 F 77 14 136/70 H 98 09/30/18 11:36 09/30/18 12:13 09/30/18 12:13 09/30/18 12:13 09/30/18 12:13 Oxygen Delivery Method Room Air Weight: 210 lb Body Mass Index (BMI) 31.0 Finger Stick Blood Glucose 160 General: Alert, Oriented x3, Cooperative, No apparent distress HEENT: Atraumatic, PERRLA, EOMI, Normocephalic Oral: Moist Mucosa Neck: Supple, No JVD Lungs: Clear to auscultation, Normal air movement, No rhonchi, No wheeze, No rales Cardiovascular: Regular rate, Regular Rhythm, Normal S1, Normal S2, No murmurs Abdomen: Soft, Non Tender, Non-Distended, No Hepato-splenomegaly, Obese, No hernias noted, - - Rectus diastases Extremities: No edema, Capillary Refill Less than 3 Seconds Skin: No rashes, No breakdown Neurological: Neuro grossly intact, Sensory exam intact to light touch and pain Psych/Mental Status: Normal Affect, Appropriate Laboratory Results 09/30/18 09:17: WBC 19.5 H, RBC 3.51 L, Hgb 12.2 L, Hct 35.7 L, MCV 101.7 H, MCH 34.8 H, MCHC 34.2, RDW Std Deviation 61.1 H, RDW Coeff of [place] 16.5 H, Plt Count 153, MPV 10.0, Immature Gran % (Auto) 0.600, Neut % (Auto) 90.5 H, Lymph % (Auto) 1.9 L, [place] % (Auto) 6.6, Eos % (Auto) 0.3, Baso % (Auto) 0.1, Absolute Neuts (auto) 17.7 H, Absolute Lymphs (auto) 0.37 L, Nucleated RBC % 0.1, Differential Comment SCANNED, Platelet Estimate ADEQUATE, Hypochromasia RARE, Macrocytosis 1+ 09/30/18 09:17: Sodium 138, Potassium 4.1, Chloride 106, Carbon Dioxide 23.0, Anion Gap 9, BUN 18, Creatinine 0.97, Estim Creat Clear Calc 65.80, Est GFR (MDRD) Af Amer 97, Est GFR (MDRD) Non-Af 81, BUN/Creatinine Ratio 18.6, Glucose 188 H, Calcium 8.8, Total Bilirubin 0.40, AST 16, ALT 25, Alkaline Phosphatase 61, Total Protein 7.4, Albumin 3.7, Globulin 3.7, Albumin/Globulin Ratio 1.0, Lipase 165 09/30/18 11:43: Urine Color Yellow, Urine Clarity Clear, Urine pH 5.0, Ur Specific [place] 1.010, Urine Protein 15 H, Urine Glucose (UA) Normal, Urine Ketones Negative, Urine Occult Blood Negative, Urine Nitrite Negative, Urine Bilirubin Negative, Urine Urobilinogen Normal, Ur Leukocyte Esterase Negative, Urine RBC 0 SEEN, Urine WBC 0 SEEN, Ur Squamous Epith Cells 0-5 SEEN, Urine Bacteria RARE, Urine Mucus 0 SEEN Medical Necessity - Tobacco Use Smoking Status: Never smoker Assessment/Plan All Active Problems Lower back pain (Acute) 1. Unexplained leukocytosis/nausea/vomiting/diarrhea -He states that he saw his PCP couple weeks ago and was found to have an elevated white count without any other signs of infection however he was given a course of Cipro, which he did complete. -It is possible that his nausea vomiting that occur after dinner could be in relation to the volume of food that he is eating -There are currently no signs of infection anywhere else and I discussed that we could bring the patient and to obtain blood cultures and urine cultures and repeat a CBC in the morning and if it remains unchanged and/or his symptoms remain unchanged or improved he could go home. He felt that he could have a CBC and blood work done as an outpatient and he would rather go home since he feels fine and follow-up with his primary care doctor. I discussed with him at length that this could be very early onset of something and that we would have a better chance of catching it early if he was here, he states that he does not have a problem coming back to the hospital if he needs to. I also discussed with him that he would need to have his CBC checked because of unexplained elevation in his white blood cell count could be a sign of leukemia and if it remains elevated without any worsening of his symptoms then he should probably see a paint line operator for evaluation. -Also his platelet count is borderline low and is been like that it looks like since 2011 with platelet counts at the lowest being 144 and at their highest 199. -He also has a chronic microcytic anemia, since 2011. He takes 500 mcg of vitamin B12 daily which may not be enough if he is continuing to have a macrocytic anemia. He may need to be evaluated for pernicious anemia as well as an outpatient and get B12 injections versus oral supplementation -He also states that for his back pain he has been on intermittent courses of prednisone he does not remember the last time he took it though, but he does not think that it was recent and I do not think that prednisone should cause a leukocytosis 1 to 2 weeks after discontinuation of the medication -He is also on a muscle relaxant for his history of back pain and muscle spasms, this particular one has a risk of nausea and vomiting as well as diarrhea so if he is taking muscle relaxant before getting in the car to drive back from [place] that could explain why he is symptomatic at night only especially if he is taking his pills on an empty stomach. 2. DM 2 -In the ER blood sugar was 188 -continue his home medications Code Visit Inpatient E&M: 51919 Subs Hosp L3
--- NOTE | 2018-09-30 15:20 | ED.DEP ---
ED Disposition - Plan for ED Patient: Instructions: Abdominal Pain Referrals: Scooter Robertson [Primary Care Provider] -
== END 2018-09-30 15:22 | disposition home or self-care (01) ==
PROVIDERS: Emergency Provider Emergency Medicine; Family Provider Internal Medicine; PCP Internal Medicine
DX: D72.829 Elevated white blood cell count, unspecified (principal); R11.2 Nausea with vomiting, unspecified; R19.7 Diarrhea, unspecified; E11.9 Type 2 diabetes mellitus without complications; N40.0 Benign prostatic hyperplasia without lower urinary tract symptoms; Z79.84 Long term (current) use of oral hypoglycemic drugs; Z79.899 Other long term (current) drug therapy
CPT/HCPCS: 74177; 80053; 81001; 83690; 85025; 87040; 87086; 96361; 96374; 99283; J7030; Q9967; A4216; J2405

== ENCOUNTER → 2018-10-21 | Outpatient (CLI) | payer MEDICARE, OTHER, SELFPAY ==
[2018-10-07 08:57] VITALS: BMI 31.0
--- NOTE | 2018-10-21 08:30 | RAD_ITS ---
STUDY: AIR-CONTRAST UPPER GI SERIES. Small bowel follow-through examination. REASON FOR EXAM: Male, 73 years old. Dysphagia. FLUOROSCOPY TIME (if supplied): (2:21) minutes/seconds TECHNIQUE: The patient ingested barium. Multiple images of the esophagus, stomach and duodenum were obtained. Following this, a small bowel follow-through examination was performed. COMPARISON: None. FINDINGS: There is evidence of a small sliding hiatal hernia without gastroesophageal reflux. There is no evidence of obstruction. The stomach and duodenum are unremarkable. There is no evidence of ulceration. No mass lesion is seen. A small bowel follow-through examination was obtained. The small bowel transit is normal. There is no evidence of intrinsic or extrinsic small bowel disease. The terminal ileum is unremarkable. RAD/Upper GI/w Small Bowel IMPRESSION: Small sliding hiatal hernia without gastroesophageal reflux. Electronically Signed: Miguel Snyder, at 13:34 EDT , Service support ,
== END | disposition home or self-care (01) ==
LOC: RAD 08:12
PROVIDERS: Family Provider Internal Medicine; PCP Internal Medicine; Referring Provider Surgery; Visit Provider Surgery
DX: R10.9 Unspecified abdominal pain (principal); R11.10 Vomiting, unspecified; R13.10 Dysphagia, unspecified
CPT/HCPCS: 74249

== ENCOUNTER 2018-11-04 07:22 | Day surgery (SDC) | payer MEDICARE, OTHER, SELFPAY ==
[2018-10-07 08:57] VITALS: BMI 31.0
[2018-11-04] VITALS (7 sets, daily range): BP systolic 108–134; BP diastolic 54–80; PULSE 66–78; RESP 18; TEMP 36.1–36.9; O2SAT 95–100; BMI 30.4
[2018-11-04] MEDS: Lactated Ringers 1,000 ML 100 ML IV (08:07)
[2018-11-04 08:16] LABS: Bedside Glucose 156 mg/dL (70-110)
--- NOTE | 2018-11-04 08:30 | HP.PCM_ITS ---
Problem List (1) Vomiting Status: Acute Qualifiers: Vomiting type: unspecified (2) Hiccups Status: Acute History and Physical Date of Admission: 11/04/18 OFFICE VISIT Date of Service: 10/07/18 MR#: [id number] Acct: [id number] Name: MED PRESLEY Rep #: [id number] : 1945 Provider: Manuel street MD Age/Sex: 73/M Location: [facility] Status: Signed Intake Vital Signs 10/07/18 Body Mass Index (BMI) 31.0 10/07/18 Height 5 ft 9.5 in 10/07/18 Weight: 211 lb 6 oz 10/07/18 Body Mass Index (BMI) 30.7 10/07/18 Blood Pressure 144/73 H 10/07/18 Blood Pressure Location Rt brachial 10/07/18 Respiratory Rate 18 10/07/18 Pulse Rate 79 10/07/18 Temperature 98.3 F 10/07/18 Temperature Source Oral 10/07/18 Pulse Ox 97 Intake Visit Reasons: VOMITING Chief Complaint: vomiting/ hiccups Research Archaeologist Required: No Is patient in pain?: No Allergies cefepime Allergy (Verified 10/07/18 08:47) Rash Medications Aspirin [Aspirin, Baby] 1 tab PO DAILY 07/11/16 [History Confirmed 10/07/18] Cyanocobalamin (Vitamin B-12) [Vitamin B-12] 500 mcg PO DAILY 07/11/16 [History Confirmed 10/07/18] Multivitamin [Daily Multiple Vitamin] 1 tab PO DAILY 07/11/16 [History Confirmed 10/07/18] Sitagliptin Phosphate [Januvia] 100 mg PO DAILY 07/11/16 [History Confirmed 10/07/18] metFORMIN HCl [Glucophage] 850 mg PO TIDCM 07/11/16 [History Confirmed 10/07/18] Finasteride [Proscar] 5 mg PO DAILY 07/10/18 [History Confirmed 10/07/18] Tamsulosin HCl [Flomax] 0.4 mg PO DAILY 07/10/18 [History Confirmed 10/07/18] Lidocaine [Lidoderm Patch] 1 patch TOPICAL DAILY #10 patch 07/28/18 [Rx Confirmed 10/07/18] Orphenadrine Citrate [Orphenadrine Citrate ER] 100 mg PO BID 08/04/18 [History Confirmed 10/07/18] alendronate 70 mg tablet 70 mg PO QWEEK 10/07/18 [History Confirmed 10/07/18] gabapentin 100 mg capsule 100 mg PO TID 10/07/18 [History Confirmed 10/07/18] meloxicam 15 mg tablet 15 mg PO DAILY 10/07/18 [History Confirmed 10/07/18] [facility] Medical History (Updated 10/07/18 @ 10:04 by Manuel Marley MD) Vomiting (Acute) Hiccups (Acute) Diastasis recti (Acute) Hepatomegaly (Acute) Ventral hernia (Acute) Anemia (Acute) Testosterone deficiency (Acute) Lumbar disc disease (Acute) Diverticulitis (Acute) Osteoarthritis (Acute) Hyperlipidemia (Acute) HTN (hypertension) (Chronic) Enlarged prostate (Acute) Leukocytosis (Acute) Lower back pain (Acute) Herniation of nucleus pulposus (Chronic) DM2 (diabetes mellitus, type 2) (Chronic) Cellulitis (Chronic) Surgical History (Updated 10/07/18 @ 08:45 by Manisha Jang) History of back surgery (Acute) History of cholecystectomy (Acute) History of rotator cuff surgery (Acute) History of colonoscopy (Acute ~2006) Family History (Updated 10/07/18 @ 08:46 by Manisha Jang) Father COPD (chronic obstructive pulmonary disease) Mother Heart disease CHF (congestive heart failure) Social History (Updated 10/07/18 @ 10:09 by Manuel Marley MD) Smoking Status: Never smoker HPI HPI HPI: MED PRESLEY, is a 73 M who presents to the office today for general surgical consultation regarding hiccups and vomiting. The patient was referred by his primary care physician Dr Robertson and a written copy of my surgical consult recommendations will return to him. 73-year-old gentleman. He claims that on 6 different intermittent occasions he has had the onset of hiccups followed by vomiting. Once his stomach is empty the episodes resolve. He also complains that by evening time he has discomfort just superior to the left iliac crest more so than discomfort in the right iliac crest. He denies fever or chills or sweats or bright red blood per rectum or melena. He has been seen by his primary care physician. He has been seen in the emergency room. By the patient report blood cultures have been drawn he is not aware of any positive results. 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 He this was diagnosed by an orthopedic surgeon and and he also saw infectious disease at that time. As well Dr Hogue.. On this occasion there is concern because his white blood cell count is 19.5 and hemoglobin 12.2 hematocrit 35.7 platelet count 153,000 with 90% segs. The etiology of the patient's leukocytosis is not identified. It is of additional note that is recent as August 07, 2018 the patient had a spine MRI performed at the [facility]. There was irregularity noted of the L3 vertebral body with loss of height and prior kyphoplasty. No significant edema. There is some protrusion of the disc. There is trefoil appearance of the canal. No nerve impingement. There is felt to be an acute fracture involving the superior aspect of L1 extending from the anterior to posterior wall. No evidence of canal stenosis. With L4-5 there may be disc material into the canal. The patient's not been seen by his orthopedic doctor or his infectious disease doctor as of yet. With his previous ostium myelitis he states that he self- administered antibiotics for 6 weeks at home. He denies abdominal pain. He was treated empirically for the leukocytosis with ciprofloxacin with my understanding is without resolution. He does not have any abdominal pain. He is previously had diverticulitis by his report in the past but no similar symptoms. The CT scan did not demonstrate any liver abscess or signs of diverticulitis or diaphragmatic fluid collections. He denies cough or productive sputum. He denies dysuria but he does have urinary frequency. He states that urinalysis was checked. He denies calf pain or swelling. He denies any recent trip. He denies history of DVT or pulmonary HPI HPI HPI: MED PRESLEY, is a 73 M who presents to the office today for ROS General General: Yes fatigue; no weight change, appetite, colon cancer, breast cancer or weakness HEENT HEENT: Yes eye surgery; no difficulty swallowing, eye injury, swollen glands or hoarseness Endo Endocrine: Yes diabetes mellitus; no thyroid disease, thyroid cancer, Hair loss, heat intolerance or cold intolerance Cardio Cardiovascular: No murmur, pacemaker, heart disease, atrial fibrillation, high blood pressure, heart attack, heart stent, palpitations, shortness of breat with exertion or chest pain Resp Respiratory: Yes shortness of breath, No sleep apnea, No cough, No COPD, No asthma, No emphysema, No wheezing Gastro Gastrointestinal: Yes abdominal pain, Yes nausea or vomiting, Yes diarrhea, No constipation, No blood in stool, No acid reflux, No hemorrhoids, No ulcers, No gallbladder problem, Yes black,tarry stools Ciaran Hematologic: No blood thinners, No blood disorders, No bleeding, No anemia, No blood clots Neuro Neurologic: No weakness Exam Const General: cooperative, comfortable, no acute distress Nutritional Appearance: obese Orientation: alert, awake Resp Effort & Inspection: normal respiratory effort Auscultation: clear to auscultation bilaterally Cardio Rate: regular rate Rhythm: regular rhythm Heart Sounds: no murmurs GI Palpation: soft, no hepatosplenomegaly Auscultation: normal bowel sounds Other: Diastases recti noted. No mass, no tenderness, normal bowel sounds Neuro Cognition: normal cognition Extrem General: no calf tenderness bilaterally Assessment & Plan Problems 1. Leukocytosis, unspecified type D72.829 2. Diastasis recti M62.08 3. Hiccups R06.6 4. Non-intractable vomiting without nausea, unspecified vomiting type R11.11 Plan 73-year-old gentleman is referred because of intermittent hiccups followed by vomiting. These episodes are not associated with any particular activity or di et or behavior. There is additional concern about peripheral lab demonstrating leukocytosis. The patient does not appear to have an acute surgical abdomen. He has had an unremarkable CT scan. I have a lower level of suspicion that this represents an acute general surgical illness. It is of note that 2017 he had osteomyelitis of the spine. This was treated with 6 weeks of antibiotics. Recent MRI suggests new onset of an L1 fracture. He has symptoms of urinary frequency but states that urinalysis was normal I do not have access that information at this moment. He does not have history of presenting findings that would suggest DVT or PE. I recommend a contrast upper GI study with small bowel follow-through looking for tentative gnosis to have diabetic gastroparesis. I recommend evaluation by his back surgeon and his infectious disease specialist. Pending the results of the contrast upper GI Study can consider whether a upper endoscopy would be of benefit. I appreciate the opportunity of assisting with his surgical care. He has had an opportunity to ask and have questions answered. cc: Dr Scooter Marley M.D., F.A.C.S. Orders Orders: Upper GI/w Small Bowel Today R10.9, R11.10, R13.10 Medications New: alendronate (Fosamax) 70 mg PO QWEEK meloxicam 15 mg PO DAILY gabapentin 100 mg PO TID Coding Level of Care Code 46405 Diagnoses Leukocytosis, unspecified type D72.829 ??Leukocytosis type: unspecified Diastasis recti M62.08 Hiccups R06.6 Non-intractable vomiting without nausea, unspecified vomiting type R11.11 ??Vomiting type: unspecified ??Vomiting Intractability: non-intractable ??Nausea presence: without nausea 10/07/18 1009 <Electronically signed by Manuel sorto MD> Date _ Manuel Marley MD Cosigner Signature: Date (if applicable) CC: Scooter Robertson ~ Upper GI with small bowel follow-through demonstrates small hiatal hernia. No o bstruction. The small bowel follow-through does not demonstrate any signs of small bowel obstruction. We will proceed with a esophagogastroduodenoscopy with close inspection of esophagogastric mucosa and biopsies as indicated. Manuel Marley M.D., F.A.C.S.
--- NOTE | 2018-11-04 08:45 | IMM_PTH ---
PATIENT: MED PRESLEY LOC: EN U#:[id number] AGE/SX: 73/M ROOM: RE11/04/[address]: Dr. Manuel Marley MD : 1945 BED: DIS: 11/04/2018 SPEC #: [id number] RECD: 11/04/18 10:12 STATUS: NICHOLAS REQ #: [id number] MARK: 11/04/18 08:[address]: Manuel Marley DEPT: IMMUNOHISTOCHEMISTRY RECD BY: Christen Mckeon ENTERED: 11/04/18 10:13 SP TYPE: IMMUNO OTHR DR: Dr. Scooter Robertson MD Tissues: B - Stomach, NOS Procedures: H Pylori (initial) PHYSICIAN & INSTITUTION [place] [id number] SPECIMEN INFORMATION: Tissue Source: B - Antrum biopsy Clinical Info: jose elias Law Specimen Number: [id number] CPT code: 91202 METHODOLOGY: Deparaffinized sections of prefer/formalin-fixed tissue or PAP/DQ stained slides are incubated with monoclonal/polyclonal antibodies/oligonucleotide probes. Localization is made via biotin free immunoperoxidase method. Appropriate controls are performed and reacted as expected. Results on target cell population are indicated in the following table: RESULTS: ANTIBODY / CLONE RESULT Block B H Pylori (polyclonal) negative These tests were developed and their performance characteristics determined by [facility]. They may not have been cleared or approved by the U.S. Food and Drug Administration. The FDA has determined that such clearance or approval is not necessary. INTERPRETATION: B. Antrum biopsy: Negative for Helicobacter pylori organisms. SJ:[place] 11/05/18
--- NOTE | 2018-11-04 08:45 | EGD_PTH ---
PATIENT: MED PRESLEY LOC: EN U#:[id number] AGE/SX: 73/M ROOM: RE11/04/[address]: Dr. Manuel Marley MD : 1945 BED: DIS: 11/04/2018 SPEC #: [id number] RECD: 11/04/18 09:30 STATUS: NICHOLAS LARRY #: [id number] MARK: 11/04/18 08:[address]: Manuel Marley DEPT: SURGICAL PATHOLOGY RECD BY: Gloria Miranda ENTERED: 11/04/18 10:40 SP TYPE: EGD [facility] DR: Dr. Scooter Robertson MD Tissues: A - Duodenum, NOS B - Gastric mucous membrane C - Esophagus, NOS Procedures: Surgery Specimen Level IV HEADER OPERATION: EGD ([facility]) PRE-OP DIAGNOSIS: Hiccups, vomiting TISSUE SUBMITTED: A. Duodenum biopsy, B. Antrum biopsy for H. pylori and path, C. Distal esophagus biopsy MICROSCOPIC DIAGNOSIS A. Duodenum, biopsy: Fragments of duodenal mucosa with mild nonspecific chronic inflammation and Maki gland hyperplasia. B. Antrum, biopsy: Mild gastritis. See microscopic description and comment. C. Distal esophageal biopsy: Fragments of squamous epithelium with mild chronic inflammation. SJ:rg 11/05/18 COMMENT B. The results of immunohistochemistry for Helicobacter pylori will be reported separately ([id number]). MICROSCOPIC DESCRIPTION Slides are reviewed. B. The specimen shows fragments of gastric mucosa with chronic inflammatory cell infiltrates in the lamina propria consisting of lymphocytes and plasma cells, consistent with mild chronic gastritis. GROSS DESCRIPTION A - Received in fixative is one container labeled with the patient's name and designated duodenum biopsy. The specimen consists of two irregular fragments of light schaffer soft tissue that in aggregate measure 0.4 x 0.3 x 0.1 cm. The specimen is totally submitted in one cassette. B - Received in fixative is one container labeled with the patient's name and designated antral biopsy for H. pylori and path. The specimen consists of multiple irregular fragments of light schaffer soft tissue that in aggregate measure 0.6 x 0.5 x 0.1 cm. The specimen is totally submitted in one cassette. C - Received in fixative is one container labeled with the patient's name and designated distal esophagus biopsy. The specimen consists of one irregular fragment of light schaffer soft tissue that measures 0.3 x 0.2 x 0.1 cm. The specimen is totally submitted in one cassette. / SJ:rg 11/04/18 TC:3 CPT: 32844 x3
--- NOTE | 2018-11-04 09:20 | OP.ENDO_ITS ---
11/04/2018 Scooter Robertson Re : Upper GI endoscopy procedure for Joss Oropeza Dear Ailyn This procedure was performed on Sunday, November 04, 2018. My impressions and recommendations are as follows: Impressions : - Small hiatal hernia. Biopsied. - Z-line variable, 41 cm from the incisors. - Erythematous mucosa in the greater curvature and antrum. Very mild with some bile staining--not remarkable. Biopsied. - Normal examined duodenum. Biopsied. Recommendations : - Discharge patient to home. - Resume previous diet. - Continue present medications. - Await pathology results. - Telephone my office for pathology results in 1 week. A source for significant hiccoughs or vomiting not identified. My findings are described in the full procedure note, which is enclosed. If I can be of further assistance, please feel free to contact me at Doctor phone number(s): Work: . Sincerely, Manuel Marley MD 11/04/2018 9:19:30 AM This report has been signed electronically.
== END 2018-11-04 09:58 | disposition home or self-care (01) ==
LOC: EN 07:23 → AC 07:24
PROVIDERS: Family Provider Internal Medicine; PCP Internal Medicine; Referring Provider Internal Medicine; Visit Provider Surgery
PROC: 0DJ08ZZ Inspection of Upper Intestinal Tract, Via Natural or Artificial Opening Endoscopic (ICD-10-PCS; CPT 43235; principal; 2018-11-04 08:40)
DX: K29.70 Gastritis, unspecified, without bleeding (principal); K29.80 Duodenitis without bleeding; K20.9 Esophagitis, unspecified; K44.9 Diaphragmatic hernia without obstruction or gangrene; R06.6 Hiccough; M62.08 Separation of muscle (nontraumatic), other site; D64.9 Anemia, unspecified; M19.90 Unspecified osteoarthritis, unspecified site; E78.5 Hyperlipidemia, unspecified; I10 Essential (primary) hypertension; N40.0 Benign prostatic hyperplasia without lower urinary tract symptoms; E11.9 Type 2 diabetes mellitus without complications; E66.9 Obesity, unspecified; D72.829 Elevated white blood cell count, unspecified; Z68.30 Body mass index [BMI] 30.0-30.9, adult; Z85.828 Personal history of other malignant neoplasm of skin; Z79.84 Long term (current) use of oral hypoglycemic drugs; Z79.82 Long term (current) use of aspirin; Z79.899 Other long term (current) drug therapy
CPT/HCPCS: 43239; 82962; 88305; 88342; J7120; J2405

== ENCOUNTER → 2018-12-25 | Outpatient (CLI) | payer MEDICARE, OTHER, SELFPAY ==
[2018-11-04 07:45] VITALS: BMI 30.4
--- NOTE | 2018-12-25 18:41 | RAD_ITS ---
STUDY: X-RAY CHEST REASON FOR EXAM: Male, 73 years old. Cough TECHNIQUE: Frontal and lateral views of the chest. COMPARISON: 07/10/2018 FINDINGS: Stable hiatal hernia. The lungs are clear and expanded. There is no demonstrated pleural abnormality. Normal size heart. Normal mediastinum and luann. Normal visualized pulmonary arteries. Normal visualized aortic arch and descending thoracic aorta. Normal visualized thoracic spine. Right rotator cuff repair. Abdominal clips. RAD/Chest PA and Lateral IMPRESSION: No acute pulmonary findings. Stable hiatal hernia. Electronically Signed: Jose Ramon Ramirez MD at 21:41 EDT Tel , Service support ,
== END | disposition home or self-care (01) ==
LOC: RAD 18:34
PROVIDERS: Family Provider Internal Medicine; PCP Internal Medicine; Referring Provider Internal Medicine; Visit Provider Internal Medicine
DX: J20.9 Acute bronchitis, unspecified (principal)
CPT/HCPCS: 71046

== ENCOUNTER → 2020-01-27 14:03 | Outpatient (CLI) | payer MEDICARE, OTHER, SELFPAY ==
[2020-01-27 13:42] VITALS: BMI 30.6
[2020-01-27 14:36] LABS: Hematocrit 37.5 % (40-54); Hemoglobin 12.4 g/dL (13.0-16.5); Mean Corp Hgb Conc 33.1 g/dL (32-36); Mean Corpuscular Hgb 34.1 pg (27.0-32.0); Mean Platelet Vol. 9.7 fl (6.2-12.0); Platelet Count 165 K/mm3 (150-450); RBC Distribution Width CV 16.7 % (11.6-14.6); RBC Distribution Width SD 63.6 fl (35.1-43.9); Red Blood Count 3.64 M/mm3 (4.6-6.2)
== END ==
PROVIDERS: PCP Internal Medicine; Referring Provider Surgery; Visit Provider Surgery
DX: K92.1 Melena (principal)
CPT/HCPCS: 36415; 85027

== ENCOUNTER → 2020-01-28 10:33 | Outpatient (CLI) | payer MEDICARE, OTHER, SELFPAY ==
[2020-01-27 13:42] VITALS: BMI 30.6
== END ==
PROVIDERS: PCP Internal Medicine; Referring Provider Surgery; Visit Provider Surgery
DX: K92.1 Melena (principal)
CPT/HCPCS: 82274

== ENCOUNTER 2020-02-23 17:34 | Emergency (ER) | payer MEDICARE, OTHER, SELFPAY ==
[2020-01-27 13:42] VITALS: BMI 30.6
[2020-02-23 17:35] VITALS: BP 148/70; PULSE 93; RESP 15; TEMP 36.4; O2SAT 98; BMI 31.0
--- NOTE | 2020-02-23 17:52 | ED.DCSUM_ITS ---
History of Present Illness Chief Complaint: General Illness Informant: Patient Onset: Today Context: Sudden Onset Timing: Continuous Quality: Flulike symptoms with nausea and vomiting Location: Presents from home Current Severity: Mild Maximum Severity: Moderate Worsened by: Nothing Relieved by: Nothing Associated Symptoms: Elevated blood sugars Narrative: Patient is an elderly male with type 2 diabetes who presents with chills, cough, dyspnea on exertion, nausea and vomiting x2, myalgias and arthralgias and congestion with change in smell. Symptoms started this morning. Patient attributes his elevated blood sugars which are markedly higher than normal because of change in work shift. He denies headache. Denies photophobia, neck pain or neck stiffness. He denies sore throat. He does report dyspnea exertion. No orthopnea or PND. He denies diarrhea. Denies blood or mucus in his stool. He denies urologic symptoms. He denies neurologic symptoms. Prior similar symptoms: No Recent Illness/Hospitalization: No - Past Medical History (1) Diverticulitis Status: Acute (2) Enlarged prostate Status: Acute (3) Hyperlipidemia Status: Acute (4) Ventral hernia Status: Acute (5) DM2 (diabetes mellitus, type 2) Status: Chronic (6) HTN (hypertension) Status: Chronic Past Medical History - Allergies and Home Meds Allergies/Adverse Reactions: Allergies cefepime Allergy (Verified 01/27/20 13:43) Rash Primary Care Physician: Scooter Robertson MD [Primary Care Provider] - Prior records reviewed: Yes Surgical History: cholecystectomy, rotator cuff repair, tonsillectomy, - - Kyphoplasty L4, microdiscectomy L3 Lives: Spouse/ Significant Other Smoking Status: Never smoker Alcohol: None Drugs: None - Family History Maternal Family History: Family History (Last Reviewed 01/27/20 @ 13:42 by Manisha Jang) Father COPD (chronic obstructive pulmonary disease) Mother Heart disease CHF (congestive heart failure) Family History: Reports: - Paternal Family History: Family History (Last Reviewed 01/27/20 @ 13:42 by Manisha Jang) Father COPD (chronic obstructive pulmonary disease) Mother Heart disease CHF (congestive heart failure) Family History: Reports: Heart Disease Review of Systems General: Reports: Malaise. Denies: Chills, Fever, Subjective, Sweats, Weight loss Eyes: Denies: Visual changes - bilaterally, Blurred Vision - bilaterally ENT: Reports: Rhinorrhea, - - Change in smell. Denies: Bilateral ear pain, Sore throat Cardiovascular: Denies: Chest pain, Palpitations Respiratory: Reports: Dyspnea, Cough, Dyspnea on exertion. Denies: Sputum, Orthopnea, Paroxysmal nocturnal dyspnea Gastrointestinal: Reports: Nausea, Vomiting. Denies: Abdominal pain, Diarrhea, Melena Genitourinary: Denies: Dysuria, Hematuria, Frequency Musculoskeletal: Reports: Myalgias, Arthralgias. Denies: Neck pain, Back pain, Swelling, Extremity Pain Skin: Denies: Rash, Wounds Neurological: Reports: Weakness. Denies: Headache Endocrine: Denies: Polyuria, Polydipsia Hematologic: Denies: Easy bruising Physical Exam Vital Signs/Narrative: Vital Signs Temp Pulse Resp BP Pulse Ox 02/23/20 17:35 97.6 F L 93 15 148/70 H 98 Inital Vital Signs reviewed: Yes General: Well nourished, Well developed, Obese, No Acute Distress Head: Normocephalic, Atraumatic Eyes: Perrl, EOMI. Negative for: Pale conjunctiva, Scleral icterus ENT: No rhinorrhea, TM's clear, Nasal congestion. Negative for: Sinus tenderness Neck: Supple, Nontender, No lymphadenopathy, No JVD Cardiovascular: Regular rate, Regular rhythm, No murmurs, Normal S1, Normal S2 Respiratory: No distress, CTA bilaterally, Chest nontender Abdomen: Soft, Nontender, Nondistended, Normal bowel sounds Back: Nontender Extremities: Nontender, No edema Skin: Normal color, No rash, No Trauma. Negative for: Cyanosis, Diaphoresis, Jaundice Neurological: Alert, Oriented x3, Cranial nerves II-XII grossly intact, Normal Strength, Normal Sensation Psychological: Normal affect Diagnostic/Tx/Re-eval 02/23/20 17:55 Mucosa - Nose SARS-CoV-2 Antigen (Rapid) - Final 02/23/20 17:55 Mucosa - Nose Influenza Types A,B Direct FA (LELA) - Final Laboratory Results 02/23/20 02/23/20 18:14 18:14 WBC 11.5 H RBC 3.75 L Hgb 12.8 L Hct 39.0 L MCV 104.0 H MCH 34.1 H MCHC 32.8 RDW Std Deviation 64.3 H RDW Coeff of Ninoska 17.0 H Plt Count 161 MPV 9.8 Immature Gran % (Auto) 0.300 Neut % (Auto) 79.4 H Lymph % (Auto) 12.7 L [place] % (Auto) 6.6 Eos % (Auto) 0.8 Baso % (Auto) 0.2 Absolute Neuts (auto) 9.1 H Absolute Lymphs (auto) 1.46 Nucleated RBC % 0 Sodium 139 Potassium 4.2 Chloride 105 Carbon Dioxide 26.0 Anion Gap 8 BUN 16 Creatinine 1.03 Estim Creat Clear Calc 61.01 Est GFR (MDRD) Af Amer 90 Est GFR (MDRD) Non-Af 75 BUN/Creatinine Ratio 15.5 Glucose 182 H Calcium 9.2 White count is elevated which is nonspecific. BUN and creatinine are normal. GFR is greater than 60. Blood sugar is elevated 182 with a normal CO2 and anion gap. Influenza a and B rapid and Covid are both negative. Patient has symptoms consistent with viral illness. Plan is to discharge to home. - Medical Decision Making Need to evaluate for infectious etiology for to explain patient's hyperglycemia. He does have flulike symptoms. Will assess for influenza as well as Covid. Suspect Covid since he has altered smell. CBC was obtained to assess white count and differential. Basic metabolic panel to assess electrolytes and renal function since he is diabetic with elevated blood sugar and history of nausea and vomiting. ED Disposition - Plan for ED Patient: Disposition: Home or Assisted Living Diagnosis: Viral illness, Hyperglycemia due to diabetes mellitus Instructions: ED Viral Syndrome (Adult) Referrals: Scooter Robertson MD [Primary Care Provider] - As Needed
[2020-02-23 18:22] LABS: Absolute Lymphocyte Count 1.46 X10^3/uL (0.83-4.51); Absolute Neutrophil Count 9.1 X10^3/uL (2.0-7.7); Basophil# 0.02 X10^3/uL; Basophil% 0.2 % (0-1); Eosinophil# 0.09 X10^3/uL; Eosinophils% 0.8 % (0-5); Hemoglobin 12.8 g/dL (13.0-16.5); Lymphocyte # 1.46 X10^3/ul (4.0); Lymphocyte % 12.7 % (19-41); Mean Corp Hgb Conc 32.8 g/dL (32-36); Mean Corpuscular Hgb 34.1 pg (27.0-32.0); Mean Platelet Vol. 9.8 fl (6.2-12.0); Monocyte# 0.76 X10^3/uL; Monocyte% 6.6 % (0-10); NRBC Flagged by Analyzer 0 % (0-5); Neutrophil % 79.4 % (47-70); Platelet Count 161 K/mm3 (150-450); RBC Distribution Width SD 64.3 fl (35.1-43.9); Red Blood Count 3.75 M/mm3 (4.6-6.2); White Blood Count 11.5 K/mm3 (4.4-11.0)
[2020-02-23 18:37] LABS: Anion Gap 8 (5-15); BUN 16 mg/dL (7-18); BUN/Creat Ratio 15.5 RATIO (10-20); Calcium,Total 9.2 mg/dL (8.5-10.1); Chloride 105 mmol/L (98-107); Creatinine, Serum 1.03 mg/dL (0.70-1.30); EST Glomerular Filtration Rate 75 mL/min (>60); Est Glom Filt Rate - Afr Amer 90 mL/min (>60); Estimated Creatinine Clearance 61.01 ml/min; Glucose 182 mg/dL (74-106); Potassium 4.2 mmol/L (3.5-5.1); Sodium Level 139 mmol/L (136-145)
[2020-02-23 18:56] VITALS: RESP 15
== END 2020-02-23 18:57 | disposition home or self-care (01) ==
PROVIDERS: Emergency Provider Emergency Medicine; PCP Internal Medicine
DX: B34.9 Viral infection, unspecified (principal); E11.65 Type 2 diabetes mellitus with hyperglycemia; E78.5 Hyperlipidemia, unspecified; I10 Essential (primary) hypertension; Z79.84 Long term (current) use of oral hypoglycemic drugs; Z79.899 Other long term (current) drug therapy; E66.9 Obesity, unspecified
CPT/HCPCS: 80048; 85025; 87426; 87804; 99283

== ENCOUNTER 2020-08-03 13:30 | Outpatient (RCR) | payer MEDICARE, OTHER, SELFPAY ==
--- NOTE | 2020-07-08 11:43 | HP.OTEVAL ---
Patient's Visit Information MED PRESLEY is a 75 year old M, referred to Occupational Therapy by ALLY MIRELES, with a diagnosis of cva. Date of Evaluation: 07/06/20 Occupational Therapist: Katiuska Jhaveri, OTR/Lesly, CHT - Subjective This 75 year old male was seen for OT eval with dx of CVA- pt states June 24, 2020 late morning he was painting his deck and noticed his left hand could not hold his paint brush- Dtr rec'd to squad- pt states he had hospital care- pt states he feels left hand is almost back to normal- pt denies LE weakness - ROM ROM Comments: WNL - Strength Fibreglass Laminator: right 75# left 55# Lateral Pinch: right 14# left 16# Tripod Pinch: right13# left 15# - Sensation Sensation Comments: denies - Nine Hole Peg Right: 29.5 Left: 29.5 Comments: WFL - Quick DASH-Disab of Arm,Shoulder& Hand Quick DASH Score: 11.3625 - Rehabilitation General Assessment: pt demo full functional UB ROM and equal UB MMT -pt demo with min decrease in left food sanitarian strength-pt and agree pt is back to his baseline with daily tasks- pt was given strengthening ideas for left hand pt and pts demo understanding and agree to d/c with HEP- pt to see PT in two days for assessment for LE. - Visit Plan General Plan: pt does not demonstrate a need for skilled OT services at this time. TEXT: Thank you for the opportunity to evaluate your patient. For Medicare and Medicare HMO plans, please review the plan of care and approve it. It will need to be FAXED BACK to us at [phone] for Medicare purposes. Please let me know if there are questions or concerns regarding this plan of care. Physician Signature: Date:
--- NOTE | 2020-07-08 13:16 | HP.PTEVAL ---
Patient's Visit Information MED PRESLEY is a 75 year old M referred to Physical Therapy by [facility] with a diagnosis of CVA. Date of Evaluation: 07/07/20 Physical Therapist: Chanel Logan DPT - Visit Plan Frequency: 2x /Week Duration: 4 Weeks Plan: Focus on LE and core strength/stabilization- can use modalities as needed. Neutral spine exercises. - Subjective June 24 he had a slight stroke and has a left hand deficit. [facility]- CT Scan- CVA with a transfer to [facility]- June 28 was released. Since then he has gotten the strength back in both hands and has no significant deficits. He has pain in right hip that was there prior to the stroke. He thinks it was flared up by the ambulance ride to [facility]. He is back to his normal stuff and did not have home health. Yesterday he spent the day on a zero turn mower- he does not push mow. Walks on uneven surfaces- painful when he puts weight on his right hip. Pain is in the right buttock- the pain stays in the same spot. Worst: 7/10 Agg: putting weight on it, getting out of a vehicle- drivers side. Eases: sitting down. Best; 0/10. Pain instantly goes away. Describes the pain as dull and achy- intense tooth ache. Sleep: not disturbed. No falls or loss of balance. No noticed weakness or buckling of the LE. Does have drop foot from a surgical error during a back surgery at [facility]- right foot- he consciously lift his leg more than the other one. Lives with and has a 2 story home- does stairs without an issue with a handrail. Everything on main floor as needed. No pain in the left side. Retired in February. He has had 2 back surgeries- Dr. Villanueva at [facility]- one 2016 Dr. Cordova performed a Kyphoplasty. He has little to no back pain. He had injections in his back but they did not help. PMHx/Meds: see list- add Plavix - Objective Posture: FH, RS- can correct but is unable to maintain. Gait: right LE has foot drop (prior back surgery complication) valgus at the knees and toes turned out to the side. Palpation: tender along sacrum on the right. ROM: WFL in all planes- pain with SKTC. Strength: Core: poor, Hip: 4/5 throughout, Knee: 5/5 Ankle: left: 5/5, Right: DF: 2+/5 all other motions 5/5. Flex: HS: severe, Gastroc: moderate, Piriformis: severe. Special Test: KAMAR: positive, LLD:negative, Pelvic Alignment: WFL. Sensation/Reflex: WNL. Balance: see FGA. Stairs: asc/desc 8 recip with 1 HR - Balance Scores Functional Gait Assessment Score: 20 % Disability: 33.3400 - Goals Goal 1:: Patient will be I with HEP and progression Goal Time Frame: 4-6 Weeks Goal 2:: Patient will maintain proper posture t/o tx session to demo increased core s/s Goal Time Frame: 4-6 Weeks Goal 3:: Patient will report no pain in his hip for 1 week Goal Time Frame: 4-6 Weeks - Rehabilitation Potential Physical Therapy Diagnosis: Patient presents with hypmobility- he has decreased painfree ROM, core strength/stabilization, flexibility and muscular endurance leading to increased pain with ADL's. Rehabilitation Potential: Fair - Anticipated Interventions Patient/Client Instruction: Educate patient on: Benefits of Fitness Program Therapeutic Exercise to Include: Strength training, Endurance training, Body mechanics, Postural training, Flexibilty training, Neuromotor development, Dynamic Lumbar Stabilization, Steven Exercises For the Purpose of:: To improve muscle performance and motor function TENS: Yes Cryotherapy (ice pack, ice massage): Yes Thermo therapy (hot pack): Yes Ultrasound (thermal/non thermal): Yes Thank you for the opportunity to evaluate your patient. For Medicare and Medicare HMO plans, please review the plan of care and approve it. It will need to be FAXED BACK to us at [phone] for Medicare purposes. For Medicare only, by signing this I certify the plan of care. Please let me know if there are questions or concerns regarding this plan of care. Physician Signature: Date:
--- NOTE | 2020-08-03 13:57 | HP.PTDCSUM ---
It has been my pleasure to treat MED PRESLEY referred by ALLY MIRELES, with the diagnosis of CVA for a total of 8 visit(s). Discharge Date: Please see the following information for a summary of their discharge status. Subjective: Patient reports that he is doing great- he is back to all of his normal activities without issues. % Improvement: 100 Objective/Function: Posture: FH, RS- can correct but is unable to maintain. Gait: right LE has foot drop (prior back surgery complication) valgus at the knees and toes turned out to the side. Palpation: not tender. ROM: WFL in all planes- pain with SKTC. Strength: Core: fair, Hip: 4+/5 throughout, Knee: 5/5 Ankle: left: 5/5, Right: DF: 2+/5 all other motions 5/5. Flex: HS: severe, Gastroc: moderate, Piriformis: severe. Special Test: KAMAR: positive, LLD:negative, Pelvic Alignment: WFL. Sensation/Reflex: WNL. Balance: see FGA. Stairs: asc/desc 8 recip with 1 HR Goal 1:: Patient will be I with HEP and progression Goal Progress: Goal Met Goal 2:: Patient will maintain proper posture t/o tx session to demo increased core s/s Goal Progress: Goal Met Goal 3:: Patient will report no pain in his hip for 1 week Goal Progress: Goal Met Plan: 08/03/2020: Gave written HEP with machine weights- discharge to I HEP. Focus on LE and core (neutral spine) strength/stabilization. Modalities as needed. If there are questions or concerns regarding this patient's physical therapy, please feel free to call me at [phone]. Thank you for the referral of this patient. Sincerely, Chanel Logan DPT
== END 2020-08-03 19:00 | disposition home or self-care (01) ==
LOC: PT 13:30
PROVIDERS: PCP Internal Medicine
DX: I63.00 Cerebral infarction due to thrombosis of unspecified precerebral artery (principal)
CPT/HCPCS: 97110; 97162; 97164; 97165

== ENCOUNTER 2020-08-07 04:37 | Emergency (ER) | payer MEDICARE, OTHER, SELFPAY ==
[2020-08-07 04:38] VITALS: BP 172/85; PULSE 92; RESP 18; TEMP 36.5; O2SAT 97; BMI 35.4
[2020-08-07 04:41] VITALS: BP 172/85; PULSE 92; RESP 18; TEMP 36.5; O2SAT 97
--- NOTE | 2020-08-07 05:03 | EKG12_ITS ---
Test Reason : SOB Blood Pressure : / mmHG Vent. Rate : 084 BPM Atrial Rate : 084 BPM P-R Int : 162 ms QRS Dur : 092 ms QT Int : 382 ms P-R-T Axes : 048 043 048 degrees QTc Int : 451 ms Normal sinus rhythm Normal ECG Confirmed by BAKARI ZIEGLER, JEFF ([id number]), editorial specialist JOHANA LI ([id number]) on 08/11/2020 9:43:35 AM Referred By: FREDERICK Confirmed By:JEFF VILLEGAS MD
[2020-08-07 05:28] VITALS: BP 172/85; PULSE 92; RESP 18; TEMP 36.5; O2SAT 97
--- NOTE | 2020-08-07 05:36 | RAD_ITS ---
STUDY: X-RAY CHEST REASON FOR EXAM: Male, 75 years old. sob TECHNIQUE: Single AP portable view of the chest. COMPARISON: None. FINDINGS: The lungs are clear and expanded. There is no demonstrated pleural abnormality. Normal size heart. Normal mediastinum and luann. Normal visualized pulmonary arteries. Normal visualized aortic arch and descending thoracic aorta. Normal visualized thoracic spine. There is degenerative osteoarthritis of the bilateral shoulders. There is no demonstrated abnormality of the visualized soft tissue structures of the upper abdomen. RAD/Chest 1 View (Portable) IMPRESSION: Degenerative changes, as described above. No demonstrated acute cardiopulmonary process. Electronically Signed: Angie Vogt MD at 6:00 EDT Tel , Service support ,
[2020-08-07 05:52] LABS: Absolute Lymphocyte Count 1.44 X10^3/uL (0.83-4.51); Absolute Neutrophil Count 6.3 X10^3/uL (2.0-7.7); Basophil# 0.02 X10^3/uL; Basophil% 0.2 % (0-1); Eosinophil# 0.13 X10^3/uL; Eosinophils% 1.5 % (0-5); Hemoglobin 10.1 g/dL (13.0-16.5); Lymphocyte # 1.44 X10^3/ul (0.83-4.51); Lymphocyte % 16.6 % (19-41); Mean Corp Hgb Conc 32.6 g/dL (32-36); Mean Corpuscular Hgb 33.1 pg (27.0-32.0); Mean Corpuscular Volume 101.6 fL (80-94); Mean Platelet Vol. 10.6 fl (6.2-12.0); Monocyte# 0.71 X10^3/uL; Monocyte% 8.2 % (0-10); NRBC Flagged by Analyzer 0 % (0-5); Neutrophil # 6.34 X10^3/uL (2.7-7.7); Platelet Count 158 K/mm3 (150-450); RBC Distribution Width CV 17.2 % (11.6-14.6); RBC Distribution Width SD 63.9 fl (35.1-43.9); Red Blood Count 3.05 M/mm3 (4.6-6.2); White Blood Count 8.7 K/mm3 (4.4-11.0)
--- NOTE | 2020-08-07 06:10 | EDS_ITS ---
HPI History of Present Illness Chief Complaint: Cold Sx Informant: patient Narrative Narrative: 75-year-old male presenting with congestion, sore throat, shortness of breath. He states the symptoms started yesterday. He denies fever. Denies chest pain. He had a stroke in May and family was concerned about possible pneumonia. He has had Covid vaccine. Denies other complaints. Prior similar symptoms: Yes PFSH PFS Medical History (Updated 08/07/20 @ 07:[address] Gill Velez MD) Anemia Cellulitis Complaint of melena Diastasis recti Diverticulitis DM2 (diabetes mellitus, type 2) Enlarged prostate Hepatomegaly Herniation of nucleus pulposus Hiccups HTN (hypertension) Hyperlipidemia Leukocytosis Lower back pain Lumbar disc disease Osteoarthritis Testosterone deficiency Ventral hernia Vomiting Home Medications aspirin 1 tab PO DAILY 07/11/16 [History Last Taken 07/23/18 05:00 81 mg] cyanocobalamin (vitamin B-12) 500 mcg PO DAILY 07/11/16 [History Last Taken 07/23/18 05:00 500 mcg] metformin 850 mg PO TIDCM 07/11/16 [History Last Taken 07/23/18 18:00 850 mg] multivitamin 1 tab PO DAILY 07/11/16 [History Last Taken 07/23/18 05:00] sitagliptin 100 mg PO DAILY 07/11/16 [History Last Taken 07/23/18 18:00 100 mg] finasteride 5 mg PO DAILY 07/10/18 [History Last Taken 07/23/18 18:00] tamsulosin 0.4 mg PO DAILY 07/10/18 [History Last Taken 07/23/18 05:00] alendronate 70 mg tablet 70 mg PO QWEEK 10/07/18 [History Last Taken Unknown] glimepiride 2 mg PO DAILY 10/30/18 [History Last Taken Unknown] amoxicillin 500 mg PO BID #14 cap 08/07/20 [Rx Last Taken Unknown] Allergy/AdvReac Type Severity Reaction Status Date / Time cefepime Allergy Rash Verified 08/07/20 04:41 Family History Father COPD (chronic obstructive pulmonary disease) Mother Heart disease CHF (congestive heart failure) Surgical History History of back surgery History of cholecystectomy History of colonoscopy (~2006) History of rotator cuff surgery Social History Smoking Status: Never smoker ROS ROS ED Constitutional Constitutional ED: Denies fever(s) Eyes Eyes: Denies change in vision ENT ENT ED: Reports rhinorrhea and sore throat Cardiovascular Cardiovascular: Denies chest pain or palpitations Respiratory/Chest Respiratory/Chest: Reports dyspnea; Denies cough Gastrointestinal Gastrointestinal: Denies abdominal pain, diarrhea, nausea or vomiting Genitourinary Genitourinary ED: Denies dysuria Musculoskeletal Musculoskeletal: Denies myalgias Integumentary Denies rash Neurologic Neurologic: Denies headache(s) Psychiatric Psychiatric: Denies suicidal thoughts EXAM Physical Exam Const Vital Signs: 08/07/20 04:38 08/07/20 04:41 08/07/20 04:43 Temperature 97.7 F L 97.7 F L Temperature Source Oral Oral Pulse Rate 92 92 Respiratory Rate 18 18 Respiratory Effort Normal Respiratory Pattern Normal Blood Pressure 172/85 H 172/85 H Blood Pressure Mean 114 114 Pulse Ox 97 97 08/07/20 05:28 Temperature 97.7 F L Temperature Source Oral Pulse Rate 92 Respiratory Rate 18 Respiratory Effort Respiratory Pattern Blood Pressure 172/85 H Blood Pressure Mean 114 Pulse Ox 97 Positive well nourished and well developed General Appearance ED: well developed HEENT Reports normocephalic and head/scalp atraumatic HEENT Narrative: Mild pharyngeal erythema, uvula swollen. Eyes PERRL and EOMs intact bilaterally Neck supple General: Negative for tenderness Chest Wall inspection of chest normal Resp normal respiratory effort and clear to auscultation bilaterally Cardio regular rate and regular rhythm GI non-tender and non-distended Palpation: soft; Negative for guarding or rebound tenderness present no CVA tenderness Extremity normal to inspection Neuro oriented x3 Sensorium / Orientation: alert Psych mental status grossly normal MDM MDM MDM Narrative Medical decision making narrative: EKG is sinus rhythm rate of 84 with no acute ischemic changes. Pulse ox 94% on room air with ambulation. Covid is negative. Age-adjusted D-dimer is normal. CT soft tissue neck shows no evidence of abscess. Patient was given decadron, amoxicillin. Advised to follow up with primary care physician. Advised to return to the ED for worsening complaints. Lab Data Attestation: I reviewed the patient's lab results. Labs: Laboratory Results - last 24 hr 08/07/20 08/07/20 08/07/20 05:20 05:20 05:20 WBC 8.7 RBC 3.05 L Hgb 10.1 L Hct 31.0 L MCV 101.6 H MCH 33.1 H MCHC 32.6 RDW Std Deviation 63.9 H RDW Coeff of [place] 17.2 H Plt Count 158 MPV 10.6 Immature Gran % (Auto) 0.500 Neut % (Auto) 73.0 H Lymph % (Auto) 16.6 L [place] % (Auto) 8.2 Eos % (Auto) 1.5 Baso % (Auto) 0.2 Absolute Neuts (auto) 6.3 Absolute Lymphs (auto) 1.44 Nucleated RBC % 0 D-Dimer Quant (PE/DVT) 0.51 H* Sodium 139 Potassium 3.8 Chloride 106 Carbon Dioxide 24.0 Anion Gap 9 BUN 17 Creatinine 0.93 Estim Creat Clear Calc 66.52 Est GFR (MDRD) Af Amer 101 Est GFR (MDRD) Non-Af 83 BUN/Creatinine Ratio 18.2 Glucose 194 H Calcium 8.8 Troponin I < 0.015 Radiography Chest X-Ray - ED: 1 View, Read by ED Physician, Read by Radiologist and No Acute Disease Diagnostic Testing: Radiology Impression Chest X-Ray 08/07/20 05:36 IMPRESSION: Degenerative changes, as described above. No demonstrated acute cardiopulmonary process. Electronically Signed: Angie Vogt MD at 6:00 EDT Tel , Service support , Soft Tissue Neck CT 08/07/20 06:30 IMPRESSION: There is nonspecific nodule in the thyroid isthmus measures 20 mm. There is no evidence of peritonsillar abscess or retropharyngeal abscess. Electronically Signed: Angie Vogt MD at 7:22 EDT Tel , Service support , EKG Initial EKG: Attestation: I personally reviewed and interpreted this EKG as follows: Interpretation: Sinus Rhythm and No Acute Injury Pattern Discharge Plan Triage Chief Complaint: Cold Sx ED Provider: Gill Velez Dx/Rx/DC Orders Clinical Impression: Uvulitis Instructions: ED Uvulitis Prescriptions: New amoxicillin 500 mg capsule 500 mg PO BID Qty: 14 RF: 0 No Action alendronate [Fosamax] 70 mg tablet 70 mg PO QWEEK RF: 0 multivitamin 1 EACH tablet 1 tab PO DAILY RF: 0 metformin 850 MG tablet 850 mg PO TIDCM RF: 0 cyanocobalamin (vitamin B-12) 500 MCG tablet 500 mcg PO DAILY RF: 0 aspirin 81 MG tablet,chewable 1 tab PO DAILY RF: 0 sitagliptin 100 MG tablet 100 mg PO DAILY RF: 0 tamsulosin 0.4 MG capsule 0.4 mg PO DAILY RF: 0 finasteride 5 MG tablet 5 mg PO DAILY RF: 0 glimepiride 2 MG tablet 2 mg PO DAILY RF: 0 Primary Care Provider: Scooter Robertson Referrals: Scooter Robertson MD [Primary Care Provider] - Disposition Disposition: Home, self care
[2020-08-07 06:15] LABS: Anion Gap 9 (5-15); BUN 17 mg/dL (7-18); BUN/Creat Ratio 18.2 RATIO (10-20); Calcium,Total 8.8 mg/dL (8.5-10.1); Chloride 106 mmol/L (98-107); Creatinine, Serum 0.93 mg/dL (0.70-1.30); EST Glomerular Filtration Rate 83 mL/min (>60); Est Glom Filt Rate - Afr Amer 101 mL/min (>60); Estimated Creatinine Clearance 66.52 ml/min; Glucose 194 mg/dL (74-106); Potassium 3.8 mmol/L (3.5-5.1); Sodium Level 139 mmol/L (136-145)
[2020-08-07 06:29] LABS: D-Dimer Quantitative (DVT/PE) 0.51 FEU/ug/m (0.27-0.49)
--- NOTE | 2020-08-07 06:30 | CT_ITS ---
STUDY: CT SOFT TISSUE NECK WITH CONTRAST REASON FOR EXAM: Male, 75 years old. sore throat RADIATION DOSAGE (If Supplied By Facility): CTDIvol = ( 16.48 ) mGy, DLP = ( 432.21 ) mGycm TECHNIQUE: The patient was scanned in a multi-detector CT scanner. High resolution transaxial imaging was performed following intravenous administration of IV 75mL Isovue-370. Sagittal and coronal images were reconstructed. Individualized dose optimization techniques were used for this CT. COMPARISON: None. FINDINGS: Normal bilateral parotid glands. Normal bilateral pump assembler spaces. Normal bilateral parapharyngeal spaces. Normal bilateral carotid spaces. Normal bilateral sublingual and submandibular glands and spaces. Normal visualized nasopharynx. Normal retropharyngeal space. Normal perivertebral space. Normal visualized bilateral faucial tonsils. The visualized tongue, tongue base and oropharynx are normal. The visualized cervical lymph nodes (levels I-) are within normal size limits, and maintain normal morphology. There is no demonstrated solid or cystic mass lesion. There is no abnormal contrast enhancement. Normal epiglottis, bilateral vallecula and hypopharynx. The pre-epiglottic and paraglottic adipose spaces are normal. Normal visualized bilateral piriform sinuses, aryepiglottic folds, vocal cords, and arytenoid-cricoid articulations. Normal subglottic trachea. There is nonspecific nodule in the thyroid isthmus measures 20 mm. Normal visualized pulmonary apices. Normal visualized paranasal sinuses. Normal visualized cervical spine. CT/Soft Tissue Neck WITH Contrast IMPRESSION: There is nonspecific nodule in the thyroid isthmus measures 20 mm. There is no evidence of peritonsillar abscess or retropharyngeal abscess. Electronically Signed: Angie Vogt MD at 7:22 EDT Tel , Service support ,
[2020-08-07 06:41] VITALS: O2SAT 97
[2020-08-07] MEDS: dexAMETHasone 4 MG Tablet PO (07:45)
[2020-08-07] MEDS: AMOXICILLIN 500 MG CAPSULE PO (07:45)
[2020-08-07 07:51] VITALS: BP 171/82; PULSE 62; RESP 14; O2SAT 98
== END 2020-08-07 08:00 | disposition home or self-care (01) ==
PROVIDERS: Emergency Provider Emergency Medicine; PCP Internal Medicine
DX: K12.2 Cellulitis and abscess of mouth (principal); E11.9 Type 2 diabetes mellitus without complications; I10 Essential (primary) hypertension; E78.5 Hyperlipidemia, unspecified; M19.90 Unspecified osteoarthritis, unspecified site; Z86.73 Personal history of transient ischemic attack (TIA), and cerebral infarction without residual deficits; Z79.84 Long term (current) use of oral hypoglycemic drugs; Z79.899 Other long term (current) drug therapy
CPT/HCPCS: 70491; 71045; 80048; 84484; 85025; 85379; 87426; 87880; 93005; 99283; Q9967; A4216

== ENCOUNTER 2020-08-08 14:06 | Emergency (ER) | payer MEDICARE, OTHER, SELFPAY ==
[2020-08-07 04:38] VITALS: BMI 35.4
[2020-08-08 14:07] VITALS: BP 148/73; PULSE 86; RESP 18; TEMP 36.6; O2SAT 97; BMI 34.0
--- NOTE | 2020-08-08 14:29 | EDS_ITS ---
HPI History of Present Illness Chief Complaint: Shortness of Breath Informant: patient Narrative Narrative: 75-year-old male presents the emergency department out of concern for pneumonia. He was seen and discharged from the emergency department early yesterday morning. At that time he was diagnosed with uvulitis and given a prescription for amoxicillin. He also received a dose of Decadron. He states that is improved but his cough is worsened. His daughter is worried that he has an aspiration pneumonia because he had a stroke in the spring. He denies any known lung conditions. Non-smoker. He does note sputum production as well as sneezing and rhinorrhea. Patient notes chest pain with his cough. [facility] Medical History (Updated 08/08/20 @ 15:[address] Junior Seals, ) Anemia Cellulitis Complaint of melena Diastasis recti Diverticulitis DM2 (diabetes mellitus, type 2) Enlarged prostate Hepatomegaly Herniation of nucleus pulposus Hiccups HTN (hypertension) Hyperlipidemia Leukocytosis Lower back pain Lumbar disc disease Osteoarthritis Testosterone deficiency Ventral hernia Vomiting Home Medications aspirin 1 tab PO DAILY 07/11/16 [History Last Taken 07/23/18 05:00 81 mg] cyanocobalamin (vitamin B-12) 500 mcg PO DAILY 07/11/16 [History Last Taken 07/23/18 05:00 500 mcg] metformin 850 mg PO TIDCM 07/11/16 [History Last Taken 07/23/18 18:00 850 mg] multivitamin 1 tab PO DAILY 07/11/16 [History Last Taken 07/23/18 05:00] sitagliptin 100 mg PO DAILY 07/11/16 [History Last Taken 07/23/18 18:00 100 mg] finasteride 5 mg PO DAILY 07/10/18 [History Last Taken 07/23/18 18:00] tamsulosin 0.4 mg PO DAILY 07/10/18 [History Last Taken 07/23/18 05:00] alendronate 70 mg tablet 70 mg PO QWEEK 10/07/18 [History Last Taken Unknown] amoxicillin 500 mg PO BID #14 cap 08/07/20 [Rx Last Taken Unknown] albuterol sulfate [Ventolin HFA] 2 puff INHALATION Q4H PRN PRN #1 inhaler 08/08/20 [Rx Last Taken Unknown] clopidogrel 75 mg PO DAILY 08/08/20 [History Last Taken Unknown] glimepiride 1 mg PO DAILY 08/08/20 [History Last Taken Unknown] prednisone 40 mg PO DAILY #12 tablet 08/08/20 [Rx Last Taken Unknown] Allergy/AdvReac Type Severity Reaction Status Date / Time cefepime Allergy Rash Verified 08/08/20 14:11 Family History Father COPD (chronic obstructive pulmonary disease) Mother Heart disease CHF (congestive heart failure) Surgical History History of back surgery History of cholecystectomy History of colonoscopy (~2006) History of rotator cuff surgery Social History (Updated 08/08/20 @ 14:[address] Junior Seals DO) Smoking Status: Never smoker substance use type: does not use ROS ROS ED Constitutional Constitutional ED: Denies chills, fever(s) or weight loss Eyes Eyes: Denies change in vision or diplopia ENT ENT ED: Reports rhinorrhea and sore throat; Denies ear pain Cardiovascular Cardiovascular: Denies chest pain, orthopnea, palpitations or racing heartbeat Respiratory/Chest Respiratory/Chest: Reports cough and sputum; Denies dyspnea or orthopnea Gastrointestinal Gastrointestinal: Denies abdominal pain, diarrhea, nausea or vomiting Genitourinary Genitourinary ED: Denies dysuria, hematuria or urinary frequency Musculoskeletal Musculoskeletal: Denies arthralgias or myalgias Integumentary Denies abscess or rash Neurologic Neurologic: Denies headache(s) or weakness Psychiatric Psychiatric: Denies anxiety, depression, suicidal ideation or suicidal thoughts Endocrine Endocrinology: Denies polydipsia, polyphagia or polyuria Allergic/Immunologic Allergic/Immunologic ED: Denies mouth swelling, tongue swelling or urticaria EXAM Physical Exam Const Vital Signs: 08/08/20 14:07 08/08/20 14:36 08/08/20 14:45 Temperature 97.9 F Temperature Source Temporal Pulse Rate 86 85 Respiratory Rate 18 18 Respiratory Effort Normal Non-Labored Respiratory Depth Normal Respiratory Pattern Normal Normal Blood Pressure 148/73 H Blood Pressure Mean 98 Pulse Ox 97 Oxygen Delivery Method Room Air Room Air Positive well nourished and well developed General Appearance ED: well developed HEENT Reports normocephalic, head/scalp atraumatic and moist mucous membranes Eyes PERRL and EOMs intact bilaterally Neck no lymphadenopathy, supple and no JVD Resp normal respiratory effort Auscultation: wheezes Cardio regular rate, regular rhythm and no murmurs GI normal to inspection, nondistended, normoactive bowel sounds and non-tender Palpation: soft Back/Spine no CVA tenderness and normal ROM Extremity normal to inspection General Extremety ED: Negative for edema General Extremity: Negative for edema Neuro oriented x3 and CN's II-XII intact bilaterally Sensorium / Orientation: alert Motor Exam: strength 5/5 throughout Psych mental status grossly normal Mood & Affect: Negative for depressed or tearful Skin no rashes or lesions noted and no wounds MDM MDM MDM Narrative Medical decision making narrative: My interpretation of the plain film of the chest is no acute process. No change from yesterday. Patient received a DuoNeb. His wheezing is less. We will place the patient on albuterol MDI 40 of prednisone a day have him continue his antibiotics return if worsening or concerns follow-up primary care if not improving Radiography Diagnostic Testing: Radiology Impression Chest X-Ray 08/08/20 14:55 IMPRESSION: No acute abnormality is seen. Electronically Signed: Miguel Snyder MD at 15:13 EDT , Service support , Discharge Plan Triage Chief Complaint: Shortness of Breath ED Provider: Junior Seals Dx/Rx/DC Orders Clinical Impression: Bronchitis with acute wheezing Instructions: ED Bronchitis with Wheezing (Adult) Prescriptions: New albuterol sulfate [Ventolin HFA] 1 INHALER inhaler 2 puff inhalation Q4H PRN PRN (Reason: Wheezing) Qty: 1 RF: 0 prednisone 20 MG tablet 40 mg PO DAILY Qty: 12 RF: 0 No Action alendronate [Fosamax] 70 mg tablet 70 mg PO QWEEK RF: 0 multivitamin 1 EACH tablet 1 tab PO DAILY RF: 0 metformin 850 MG tablet 850 mg PO TIDCM RF: 0 cyanocobalamin (vitamin B-12) 500 MCG tablet 500 mcg PO DAILY RF: 0 aspirin 81 MG tablet,chewable 1 tab PO DAILY RF: 0 sitagliptin 100 MG tablet 100 mg PO DAILY RF: 0 tamsulosin 0.4 MG capsule 0.4 mg PO DAILY RF: 0 finasteride 5 MG tablet 5 mg PO DAILY RF: 0 amoxicillin 500 mg capsule 500 mg PO BID Qty: 14 RF: 0 clopidogrel 75 mg tablet 75 mg PO DAILY RF: 0 glimepiride 1 mg tablet 1 mg PO DAILY RF: 0 Primary Care Provider: Scooter Robertson Referrals: Scooter Robertson MD [Primary Care Provider] - 1 Week if not improving Disposition Disposition: Home, self care
[2020-08-08] MEDS: Ipratropium/Albuterol Sulfate 3 ML AMPUL.NEB INHALATION (14:33)
[2020-08-08 14:36] VITALS: PULSE 85; RESP 18
[2020-08-08 14:45] VITALS: O2SAT 98
--- NOTE | 2020-08-08 14:55 | RAD_ITS ---
STUDY: X-RAY CHEST REASON FOR EXAM: Male, 75 years old. Cough TECHNIQUE: Single AP portable view of the chest. COMPARISON: Comparison is made with prior examination dated 08/07/2020. FINDINGS: Scattered calcified granulomas. The lungs are clear. There is no demonstrated pleural abnormality. Normal size heart. Normal mediastinum and luann. Normal visualized pulmonary arteries. There is atherosclerotic calcification of the aortic arch with tortuosity. There are diffuse degenerative changes of the visualized thoracic spine. Normal visualized ribs, clavicles, and shoulders. There is no demonstrated abnormality of the visualized soft tissue structures of the upper abdomen. RAD/Chest 1 View (Portable) IMPRESSION: No acute abnormality is seen. Electronically Signed: Miguel Snyder MD at 15:13 EDT , Service support ,
[2020-08-08 16:05] VITALS: BP 157/72; PULSE 83; RESP 18; O2SAT 96
== END 2020-08-08 16:06 | disposition home or self-care (01) ==
PROVIDERS: Emergency Provider Emergency Medicine; PCP Internal Medicine
DX: J40 Bronchitis, not specified as acute or chronic (principal); R06.2 Wheezing; E11.9 Type 2 diabetes mellitus without complications; I10 Essential (primary) hypertension; E78.5 Hyperlipidemia, unspecified; M19.90 Unspecified osteoarthritis, unspecified site; Z79.84 Long term (current) use of oral hypoglycemic drugs; Z79.899 Other long term (current) drug therapy
CPT/HCPCS: 71045; 94640; 99282

== ENCOUNTER 2021-09-07 05:12 | Day surgery (SDC) | payer MEDICARE, SELFPAY ==
[2021-09-07] VITALS (7 sets, daily range): BP systolic 122–150; BP diastolic 63–77; PULSE 60–67; RESP 16–18; TEMP 36.1–36.9; O2SAT 93–100; BMI 30.8
[2021-09-07] MEDS: Lactated Ringers 1,000 ML 15 ML IV (06:07)
--- NOTE | 2021-09-07 06:30 | COLBX_PTH ---
PATIENT: MED PRESLEY LOC: EN U#:[id number] AGE/SX: 76/M ROOM: RE09/07/[address]: Dr. Naveen Hernandez DO : 1945 BED: DIS: 09/07/2021 SPEC #: [id number] RECD: 09/07/21 10:26 STATUS: NICHOLAS RETimi #: [id number] MARK: 09/07/21 06:[address]: Naveen Hernandez DEPT: SURGICAL PATHOLOGY RECD BY: Serina Jasmine ENTERED: 09/07/21 11:08 SP TYPE: COLON BX OTHR DR: Dr. Scooter Robertson MD Tissues: COLON BIOPSY Procedures: Surgery Specimen Level IV HEADER OPERATION: Colonoscopy (MAC), biopsy PRE-OP DIAGNOSIS: Screening TISSUE SUBMITTED: Base of colon polyp biopsy MICROSCOPIC DIAGNOSIS Base of colon polyp, biopsy: Tubular adenoma. SJ:[place] 09/08/2021 MICROSCOPIC DESCRIPTION Slides are reviewed. GROSS DESCRIPTION Received in fixative is one container labeled with the patient's name and designated base of colon polyp biopsy. The specimen consists of one irregular fragment of light schaffer soft tissue that measures 0.3 x 0.3 x 0.1 cm. The specimen is totally submitted in one cassette. / SJ:rg 09/07/2021 TC:1 CPT: 73610
[2021-09-07 06:31] LABS: Bedside Glucose 186 mg/dL (74-106)
--- NOTE | 2021-09-07 06:32 | HP.PCM_ITS ---
History and Physical Date of Admission: 09/07/21 Details: MED PRESLEY, is a 76 M who presents to the office today for Initial consult. Med established with this clinic 6.05.16 for screening colonoscopy. He is above the age of 73 and therefore unable to pursue this through open access. History of stroke 2020 and saw Valarie Youssef. He is not currently following with cardiology. PCP Scooter Robertson ([facility]) and is monitoring any residual symptoms. No personal or family history of bowel disease or cancer. He does have an abdominal hernia. Denies reflux or dysphagia. ROS Const Constitutional: No fatigue, malaise, night sweats, weight change, sleep problems, abnormal sleep pattern or change in appetite ENT ENT: No difficulty swallowing, hoarseness or sore throat Cardio Cardiology: No chest pain at rest Gastro GI: No abdominal pain, belching, bloating, change in bowel habits, change in stool character, coffee ground emesis, constipation, cramping, diarrhea, heartburn, difficulty swallowing, feeling full early, excessive flatus, incontinent of stools, Vomiting blood/hematemesis, Blood in stool, loose stools, Black,tarry stools, nausea/dyspepsia, pain with swallowing, vomiting or other Musc Musculoskeletal: No joint pain Skin Skin: No yellowing of the eye or itchy eyes Neuro Neurology: No behavioral changes Psych Psychiatric: No abnormal sleep pattern, No anxiety, No behavioral changes, No change in appetite and No depression Endo Endocrine: No fatigue or weight change Aller/Imm Allergy/Immunologic: No itchy eyes Ciaran/Lymp Hematologic/Lymphatic: No easy bleeding or easy bruising Exam Const General: cooperative and comfortable Nutritional Appearance: average body habitus and well nourished [facility] Head: normal to inspection Ears: hearing grossly normal bilaterally Nose: external nose normal Face and sinus: normal facial exam Mouth: oral mucosae normal Throat: posterior oropharynx normal Eyes General: appearance normal, both eyes and all related structures Neck Neck: normal visual inspection Chest Chest palpation & inspection: normal inspection of the chest and normal p alpation of entire chest wall Resp Effort & Inspection: normal respiratory effort Auscultation: Bilateral: Clear to Auscultation Cardio Palpation: normal PMI Rate: regular rate Rhythm: regular rhythm GI Inspection: normal to inspection Auscultation: normal bowel sounds Percussion: normal to percussion Palpation: no hepatosplenomegaly Skin General: no rashes or lesions noted Neuro General: patient alert Extrem General: normal to inspection Psych Affect: normal affect Quality Reporting Tobacco Screening ([facility] 138) Smoking Status: Never smoker Assessment and Plan Assessment and Plan (1) Encounter for screening colonoscopy: ?Status:?Acute ? ? ? Orders:?Orders: ? Colonoscopy Today ?Plan - Dr. Hodge Friend, DO: He does not have any history of polyps.? It has been at least 10 years since he had his last colonoscopy.? He was explained alternatives, risk, benefits including outstanding bleeding, infection, sepsis, perforation, need for emergent .? Have an ASA of 3. I have re-examined the patient. There are no clinical changes since date of exam.
--- NOTE | 2021-09-07 07:05 | OP.CCLET_ITS ---
11/29/2021 Scooter Robertson Re : Colonoscopy procedure for Joss Oropeza Dear Ailyn This procedure was performed on August. My impressions and recommendations are as follows: Impressions : - Severe diverticulosis in the entire examined colon. There was no evidence of diverticular bleeding. - One 5 mm polyp in the ascending colon, removed with a cold biopsy forceps. Resected and retrieved. Recommendations : - Repeat colonoscopy in 5 years for surveillance. - Continue present medications. My findings are described in the full procedure note, which is enclosed. If I can be of further assistance, please feel free to contact me at . Sincerely, Naveen Hernandez, 09/07/2021 7:04:32 AM This report has been signed electronically.
--- NOTE | 2021-09-07 07:05 | OP.COLON_ITS ---
Patient Name: Joss Oropeza Procedure Date: 09/07/2021 6:23 AM Date of : 1945 Age: 76 Procedure: Colonoscopy Indications: Screening for colorectal malignant neoplasm Providers: Naveen Hernandez DO Medicines: Monitored Anesthesia Care Patient Profile: This is a 76 year old male. Refer to note in patient chart for documentation of history and physical. Last Colonoscopy: more than 10 years ago. Complications: No immediate complications. Procedure: Pre-Anesthesia Assessment: - Prior to the procedure, a History and Physical was performed, and patient medications and allergies were reviewed. The risks and benefits of the procedure and the sedation options and risks were discussed with the patient. All questions were answered and informed consent was obtained. Patient identification and proposed procedure were verified by the physician. Mental Status Examination: alert and oriented. Airway Examination: normal oropharyngeal airway and neck mobility. Respiratory Examination: clear to auscultation. CV Examination: normal. Prophylactic Antibiotics: The patient does not require prophylactic antibiotics. Prior Anticoagulants: The patient has taken no previous anticoagulant or antiplatelet agents. After reviewing the risks and benefits, the patient was deemed in satisfactory condition to undergo the procedure. The anesthesia plan was to use moderate sedation / analgesia (conscious sedation). Immediately prior to administration of medications, the patient was re-assessed for adequacy to receive sedatives. The heart rate, respiratory rate, oxygen saturations, blood pressure, adequacy of pulmonary ventilation, and response to care were monitored throughout the procedure. The physical status of the patient was re-assessed after the procedure. After I obtained informed consent, the scope was passed under direct vision. Throughout the procedure, the patient's blood pressure, pulse, and oxygen saturations were monitored continuously. The Colonoscope was introduced through the anus and advanced to the cecum, identified by appendiceal orifice and ileocecal valve. The colonoscopy was performed without difficulty. The patient tolerated the procedure well. The quality of the bowel preparation was adequate. Scope In: 6:39:13 AM Scope Withdrawal Time 0 hours 12 minutes 5 seconds Scope Out: 6:57:40 AM Total Procedure Duration Time 0 hours 18 minutes 27 seconds Findings: The perianal and digital rectal examinations were normal. Multiple small and large-mouthed diverticula were found in the entire colon. There was no evidence of diverticular bleeding. A 5 mm polyp was found in the ascending colon. The polyp was sessile. The polyp was removed with a cold biopsy forceps. Resection and retrieval were complete. Verification of patient identification for the specimen was done. Estimated blood loss was minimal. Impression: - Severe diverticulosis in the entire examined colon. There was no evidence of diverticular bleeding. - One 5 mm polyp in the ascending colon, removed with a cold biopsy forceps. Resected and retrieved. Recommendation: - Repeat colonoscopy in 5 years for surveillance. - Continue present medications. Procedure Code(s): --- Professional --- 17694, Colonoscopy, flexible; with biopsy, single or multiple CPT copyright 2017 [employer]. All rights reserved. The codes documented in this report are preliminary and upon curtain fitter review may be revised to meet current compliance requirements. Naveen Hernandez DO 09/07/2021 7:04:32 AM This report has been signed electronically. Number of Addenda: 1 Note Initiated On: 09/07/2021 6:23 AM Addendum Number: 1 Addendum Date: 11/29/2021 6:19:34 AM MAC was used as sedation for this procedure. Naveen Hernandez DO 11/29/2021 6:19:38 AM This report has been signed electronically.
== END 2021-09-07 07:53 | disposition home or self-care (01) ==
LOC: EN 05:15 → AC 05:17
PROVIDERS: PCP Internal Medicine; Referring Provider Internal Medicine; Visit Provider Internal Medicine Gastroenterology
PROC: 0DJD8ZZ Inspection of Lower Intestinal Tract, Via Natural or Artificial Opening Endoscopic (ICD-10-PCS; CPT 45378; principal; 2021-09-07 06:25)
DX: Z12.11 Encounter for screening for malignant neoplasm of colon (principal); E11.9 Type 2 diabetes mellitus without complications; D12.2 Benign neoplasm of ascending colon; K57.30 Diverticulosis of large intestine without perforation or abscess without bleeding; E78.5 Hyperlipidemia, unspecified; Z79.82 Long term (current) use of aspirin; Z79.84 Long term (current) use of oral hypoglycemic drugs; Z79.899 Other long term (current) drug therapy; Z86.73 Personal history of transient ischemic attack (TIA), and cerebral infarction without residual deficits
CPT/HCPCS: 45380; 82962; 88305; J7120; J2405

== ENCOUNTER → 2022-05-22 | Outpatient (CLI) | payer MEDICARE, SELFPAY ==
--- NOTE | 2022-05-22 14:20 | RAD_ITS ---
STUDY: X-RAY CHEST REASON FOR EXAM: Male, 76 years old. Dyspnea on exertion. TECHNIQUE: PA and lateral views of the chest. COMPARISON: Comparison is made with prior study dated August 08, 2020. FINDINGS: Vascular congestion and mild CHF with increased markings at the right lung base suggestive of a right basilar atelectasis. There is no demonstrated pleural abnormality. Normal size heart. Normal mediastinum and luann. Normal visualized pulmonary arteries. Metallic anchor is seen overlying the right humeral head. Normal visualized thoracic spine. Normal visualized ribs, clavicles, and shoulders. There is no demonstrated abnormality of the visualized soft tissue structures of the upper abdomen. RAD/Chest PA and Lateral IMPRESSION: Mild degree of vascular congestion and CHF with right basilar atelectasis. Electronically Signed: Miguel Snyder MD at 15:10 EDT ,
== END | disposition home or self-care (01) ==
LOC: RAD 14:13
PROVIDERS: PCP Internal Medicine; Visit Provider Internal Medicine
DX: R06.00 Dyspnea, unspecified (principal)
CPT/HCPCS: 71046

== ENCOUNTER → 2022-06-14 | Outpatient (CLI) | payer MEDICARE, SELFPAY ==
--- NOTE | 2022-06-14 17:56 | STRESSREP_ITS ---
Stress Test Report Lexiscan myocardial perfusion stress test. Indication; 77-year-old patient multiple risk factors for CAD Hypertension, hyperlipidemia, diabetes mellitus Lexiscan sestamibi was done to evaluate for CAD Stress protocol: Resting EKG demonstrates. Normal sinus rhythm. 0.4 mg of regadenoson was infused per usual protocol followed by rapid intravenous saline flush injection continuous EKG monitoring was performed. The maximum heart rate attained was 110 bpm which was 78% of maximum predicted heart . Stress EKG showed[, no significant change from the resting EKG, with maximum heart rate of 100 bpm. Arrhythmia: No arrhythmia demonstrated Symptoms: Patient had no symptoms of chest pain Blood pressure at rest: 138/62 mmHg blood pressure at the end of stress: 158/70 mmHg Myocardial perfusion protocol. 14.8 mCi ]of Technetium 99m Sestamibi was injected at rest. [ 0.4 mg ]of Regadenoson was infused per usual protocol peak infusion 44.6 mCi ]of Technetium 99m sestamibi was injected. Stress images were obtained stress and rest images were reconstructed and compared in the short axis vertical and horizontal long axis. Gated images were also obtained Perfusion SPECT analysis: Review of the images demonstrate normal uptake of sestamibi at rest, post stress images demonstrate similar uptake of sestamibi to the resting images, homogeneous tracer uptake With no evidence of reversible myocardial ischemia. Gated SPECT analysis: The gated ejection fraction is 76%. Normal left ventricular wall motion Conclusion: Negative Lexiscan sestamibi myocardial perfusion study for reversible myocardial ischemia Normal LV systolic function Sade Castellanos MD,FACC,[facility]
== END | disposition home or self-care (01) ==
LOC: CVS 06:34
PROVIDERS: PCP Internal Medicine; Referring Provider Internal Medicine; Visit Provider Internal Medicine
DX: R06.09 Other forms of dyspnea (principal)
CPT/HCPCS: 78452; 93017; A9500; A4216; J2785

== ENCOUNTER → 2022-07-26 | Outpatient (CLI) | payer MEDICARE, SELFPAY ==
[2022-07-26 17:21] LABS: Hemoglobin A1c 7.7 % (3.8-5.6)
== END | disposition home or self-care (01) ==
LOC: LAB 16:15
PROVIDERS: PCP Internal Medicine; Referring Provider Internal Medicine Endocrinology, Diabetes & Metabolism; Visit Provider Internal Medicine Endocrinology, Diabetes & Metabolism
DX: E11.9 Type 2 diabetes mellitus without complications (principal)
CPT/HCPCS: 36415; 83036

== ENCOUNTER → 2024-08-09 | Outpatient (CLI) | payer MEDICARE, SELFPAY ==
--- OUTSIDE RECORDS SUMMARY | 2024-08-09 15:33 | XMS RPT_ITS | CCD ---
Author Organization [facility] Care Team Providers Care Performance Improvement Analyst Name Role Phone Mendpara, Carlos Devjibhai Unavailable Unava ilable Mendpara, Carlos Devjibhai Unavailable Unava ilable German Robertson Unavailable Unavaila ble Katsaros, German Denney Unavailable Unavaila ble Mendpara, Carlos Devjibhai Unavailable Unava ilable Mendpara, Carlos Devjibhai Unavailable Unava ilable German Robertson Unavailable Unavaila ble KatsaGerman petersen Unavailable Unavaila ble NO REFERRING Unavailable Unavailable TRACY MARTINEZ Unavailable Unavailable TRAYC MARTINEZ Unavailable Unavailable YO KOHLI Unavailable Unavailable BUCHINOMERARY Unavailable Unavailable JANE, RONALD Unavailable Unavailable BUCHINO, MERARY Unavailable Unavailable EDUAR, MARTIR Unavailable Unavailable EDUAR, MARTIR Unavailable Unavailable NO REFERRING Unavailable Unavailable GERMAN ROBERTSON Unavailable Unavailable GERMAN ROBERTSON Unavailable Unavailable NO REFERRING Unavailable Unavailable IMCA Unavailable Unavailable IMCA Unavailable Unavailable NO REFERRING DR Unavailable Unavailable YO KOHLI Unavailable Unavailable YO KOHLI Unavailable Unavailable YO KOHLI Unavailable Unavailable Dr. German Robertson Primary Care Provider Dr. German Robertson Referring Provider [phone] Dr. Naveen Hernandez Attending Provider FriendDr. Hodge Other Provider [phone] German Robertson Primary Care Provider [phone] Dr. German Robertson Primary Care Provider Dr. German Robertson Referring Provider [phone] Dr. Maurisio Londono Attending Provider Ailyn ZIEGLER, German [facility] Primary Care Provider Dr. German Robertson Other Provider Dr. Sade Castellanos Attending Provider [phone] Ailyn [facility] Provider Alka Noriega MD Unavailable [phone] AILYN [facility] Primary Care Unavaila ble KILANI, AHMAD FABRICE Admitting Unavailable SARALAYA, SPARSHA Attending Unavailable PHILIP SMITH Consulting Unavailable Ailyn ZIEGLER, [facility] Primary Care Provider Maurisio Londono Attending Unavailable Katestevan, German Primary Care Unavailable Katsaros, German Referring Unavailable Maurisio Londono Attending Unavailable Ailyn, German Primary Care Unavailable Katsanicola, German Referring Unavailable Katsanicola, German Primary Care Unavailable Katestevan, German Referring Unavailable Maurisio Londono Attending Unavailable ROWENA PARRA Attending Unavailable KATROS, [facility] Primary Care Unavaila ble KATSAROS, [facility] Care Unavaila ble THUESTAD, MAYNOR A Referring Unavailable TRACY FARFAN Attending Unavailable Girma Vargas MD, Greg Unavailable SABAS HERRING Attending Unavailable AILYN, GERMAN [facility] Care Unavailable KATSAROS, [facility] Care Unavaila ble KATSANICOLA, [facility] Primary Care Unavaila ble GARCIA-ALKA CRUZ Referring Unavailabl e KATSAROS, [facility] Primary Care Unavaila ble GARCIA-ALKA CRUZ Referring Unavailabl e KATSAROS, [facility] Primary Care Unavaila ble GARCIA-ALKA CRUZ Referring Unavailabl e KATSAROS, [facility] Primary Care Unavaila ble KATSAROS, [facility] Primary Care Unavaila ble GARCIA-ALKA CRUZ Attending Unavailabl e KATSAROS, [facility] Care Unavaila ble GARCIA-ALKA CRUZ Referring Unavailabl e KATSAROS, [facility] Primary Care Unavaila ble GARCIA-ALKA CRUZ Attending Unavailabl e KATSAROS, PETER NIKETAS Primary Care Unavaila ble SCHAEF, IOANA Admitting Unavailable GARRETTNEO BUI Attending Unavailable KATSAROS, [facility] Care Unavaila ble GARCIA-ANTHONYALKA GRACE Referring Unavailabl e KATSAROS, [facility] Care Unavaila ble GARCIA-ANTHONYALKA Referring Unavailabl e KATSAROS, [facility] Care Unavaila ble BERNARD MOORE Attending Unavailable KIRTI ARELLANO Attending Unavaila ble KATSAROS, [facility] Care Unavaila ble KATSAROS, [facility] Care Unavaila ble MARÍATHOMAS Attending Unavailable MARÍA, THOMAS Admitting Unavailable KATSAROS, [facility] Unavaila ble PRABHAKARAN, KYLEIGHBAZHAGAN Admitting Unavaila ble PRABHAKALETTY VALLECILLOZHAGAN Attending Unavaila ble GARCIA-ALKA CRUZ Referring Unavailabl e KATSAROS, [facility] Unavaila ble GARCIA-ANTHONYALKA Grace Referring Unavailabl e KATSAROS, [facility] Care Unavaila ble KATSAROS, [facility] Unavaila ble GARCIA-ANTHONYALKA GRACE Referring Unavailabl e KATSAROS, [facility] Unavaila ble GARCIA-ALKA CRUZ Referring Unavailabl e KATSAROS, [facility] Unavaila ble GARCIA-ANTHONYALKA Grace Referring Unavailabl e KATSAROS, [facility] Care Unavaila ble GARCIA-ALKA CRUZ Referring Unavailabl e GARCIA-ANTHONYALKA Attending Unavailabl e KATSAROS, [facility] Unavaila ble RODRIGO MAGANA Admitting Unavailable CHINO, RODRIGO Garcia Attending Unavailable KATSAROS, [facility] Unavaila ble OWEN AC Referring Unavailable KATSAROS, [facility] Unavaila ble KATSAROS, [facility] Unavaila ble GARCIA-ANTHONYALKA Referring Unavailabl e KATSAROS, [facility] Care Unavaila OWEN Wilson Attending Unavailable GARCIA-ANTHONYALKA GRACE Referring Unavailabl e KATSAROS, [facility] Unavaila ble THUESTAD, MAYNOR A Attending Unavailable KATSAROS, [facility] Unavaila ble HAZZI, NELSONI Admitting Unavailable KATSAROS, [facility] Unavaila ble GARCIA-ANTHONY, ALKA Sesay Referring Unavailabl e GARCIA-ANTHONY, ALKA Sesay Referring Unavailabl e KATSAROS, [facility] Care Unavaila ble GARCIA-ANTHONY, ALKA Sesay Referring Unavailabl e KATSAROS, [facility] Care Unavaila ble GARCIA-ANTHONY, ALKA Sesay Referring Unavailabl e KATSAROS, [facility] Unavaila ble KATSAROS, [facility] Unavaila ble GARCIA-ANTHONY, ALKA Sesay Referring Unavailabl e GARCIA-ANTHONY, ALKA Sesay Attending Unavailabl e KATSAROS, [facility] Unavaila ble GARCIA-ANTHONY, ALKA Sesay Referring Unavailabl e GARCIA-ANTHONY, ALKA Sesay Attending Unavailabl e KATSAROS, [facility] Unavaila ble GARCIA-ANTHONY, ALKA Sesay Referring Unavailabl e GARCIA-ANTHONY, ALKA Sesay Attending Unavailabl e KATSAROS, [facility] Unavaila ble KATSAROS, [facility] Unavaila ble GARCIA-ANTHONY, ALKA Sesay Referring Unavailabl e KATSAROS, [facility] Unavaila ble GARCIA-ANTHONY, ALKA Sesay Referring Unavailabl e GARCIA-ANTHONYALKA Attending Unavailabl e KATSAROS, [facility] Unavaila ble GARCIA-ANTHONY, ALKA Sesay Referring Unavailabl e GARCIA-ANTHONYALKA Attending Unavailabl e KATSAROS, [facility] Unavaila ble GARCIA-ANTHONY, ALKA Sesay Referring Unavailabl e KATSAROS, [facility] Unavaila ble KATSAROS, [facility] Unavaila ble KATSAROS, [facility] Unavaila ble GARCIA-ANTHONY, ALKA Sesay Referring Unavailabl e KATSAROS, [facility] Unavaila ble KATSAROS, [facility] Unavaila ble GARCIA-ANTHONY, ALKA Sesay Referring Unavailabl e KATSAROS, [facility] Unavaila ble GARCIA-ANTHONY, ALKA Sesay Referring Unavailabl e KATSAROS, [facility] Unavaila ble KATSAROS, [facility] Unavaila ble GARCIA-ANTHONY, ALKA Sesay Referring Unavailabl e KATSAROS, [facility] Unavaila ble GARCIA-ANTHNOY, ALKA Sesay Referring Unavailabl e KATSAROS, [facility] Primary [facility] Unavaila ble GARCIA-ANTHONY, ALKA Sesay Referring Unavailabl e KATSAROS, [facility] Unavaila ble GARCIA-ANTHONY, ALKA Sesay Referring Unavailabl e KATSAROS, [facility] Unavaila ble GARCIA-ANTHONY, ALKA Sesay Referring Unavailabl e KATSAROS, [facility] Unavaila ble KATSAROS, [facility] Unavaila ble GARCIA-ANTHONY, ALKA Sesay Referring Unavailabl e KATSAROS, [facility] Unavaila ble GARCIA-ANTHONY, ALKA Sesay Referring Unavailabl e KATSAROS, [facility] Unavaila ble GARCIA-ANTHONY, ALKA Sesay Referring Unavailabl e KATSAROS, [facility] Unavaila ble GARCIA-ANTHONY, ALKA Sesay Referring Unavailabl e KATSAROS, [facility] Unavaila ble KATSAROS, [facility] Unavaila ble GARCIA-ANTHONY, ALKA Sesay Referring Unavailabl e KATSAROS, [facility] Unavaila ble Allergies Allergy Classification Reported Allergen(s) Allergy Type Date of Onset Reaction(s) Facility Cephalosporins (antibiotic) (2 sources) cefepime Drug Allergy 1 Unknown [facility] (1 source) NO KNOWN ALLERGIES; Translations: [NO KNOWN ALLERGIES] Propensity to adverse reactions (disorder) [facility] (1 source) NKA; Translations: [NKA] Propensity to adverse reactions (disorder) [facility] (20 sources) cefepime; Translations: [CEFEPIME] Drug Allergy 1 Unknown [facility] (8 sources) HMG-CoA reductase inhibitor Drug Allergy 1 Other: See Comments, Unknown [facility] (1 source) cefepime Drug Allergy 3 [facility] Rep[facility] Medications Current Medications Medication Drug Class(es) Dates Sig (Normalized) Sig (Original) alendronic acid 70 mg oral tablet (20 sources) Bisphosphonate Start: 10-07-2018 take 1 tablet by mouth every week Alendronate (Fosamax) 70 mg tablet Active 70 MG PO EVERY WEEK October 07, 2018 12:00am Fridays Comment on above: Take 70 mg by mouth one time a week. In AM with cup of water on empty stomach. Nothing else by mouth and stay upright for 30 min. amLODIPine 5 mg oral tablet (6 sources) Dihydropyridine Calcium Channel Monster Start: 06-10-2024 take 1 tablet by mouth once daily amLODIPine (NORVASC) 5 mg tablet Take 1 tablet by mouth once daily. 90 tablet 06/10/2024 Active aspirin 81 mg chewable tablet (20 sources) Platelet Aggregation Inhibitor, Nonsteroidal Anti-inflammatory Drug Start: 07-11-2016 take 1 tablet by mouth once daily aspirin 81 mg chewable tablet Take 81 mg by mouth once daily. 07/11/2016 Active Start: 01-03-2013 End: 03-05-2023 take 1 tablet by mouth once daily aspirin, enteric coated (ASPIR-LOW) 81 mg EC tablet Take 1 tablet by mouth once daily. 0 01/03/2013 03/05/2023 Discontinued (Changing Therapy/Dosage Form) Comment on above: Take 1 tablet by lauryn th once daily. Take by mouth. bisacodyl 5 mg delayed release oral tablet (1 source) Stimulant Laxative Start: 5 End: 5 take 1 tablet by mouth once daily as needed bisacodyl EC (DULCOLAX) 5 mg EC tablet Take 1-2 tablets by mouth once daily as needed for constipation for up to 14 days. 10 tablet 07/02/2024 07/16/2024 Active clopidogrel 75 mg oral tablet (20 sources) P2Y12 Platelet Inhibitor Start: 4 End: 4 take 1 tablet by mouth once daily clopidogrel (PLAVIX) 75 mg tablet Take 1 tablet by mouth once daily for 19 doses. 19 tablet 06/11/2023 Active finasteride 5 mg oral tablet (20 sources) 5-alpha Reductase Inhibitor Start: 9 take 1 tablet by mouth once daily Finasteride (Proscar) 5 MG tablet Active 5 MG PO DAILY July 10, 2018 12:00am Comment on above: Take 5 mg by mouth o nce daily. finasteride 0.1% minoxidil 7.5% topical solution (CPD) (20 sources) Start: 9 finasteride 0.1% minoxidil 7.5% topical solution (CPD) Finasteride Active 5 MG DAILY July 10, 2018 9:31am 07/10/2018 Active Start: 07-10-2018 finasteride 0. 1% minoxidil 7.5% topical solution (CPD) Finasteride Active 5 MG DAILY July 10, 2018 9:31am 0 07/10/2018 Active Comment on above: Finasteride Active 5 MG DAILY July 10, 2018 9:31am glimepiride 4 mg oral tablet (20 sources) Sulfonylurea Start: take 1 tablet by mouth once daily at dinner glimepiride (AMARYL) 4 mg tablet Take 4 mg by mouth daily with dinner. 01/11/2023 Active Start: 01-11-2023 take 1 tablet by lauryn th twice daily at mealtime glimepiride (AMARYL) 4 mg tablet Take 4 mg by mouth two times a day with meals. 01/11/2023 Active Start: 04-13-2022 End: 07-31-2022 take 4 mg by mouth twice daily Glimepiride Discontinue d 4 MG PO TWICE A DAY July 31, 2022 2:11pm July 31, 2022 2:32pm Start: 01-04-2022 End: 04-13-2022 take 4 tablets by mouth once daily Glimepiride (Amaryl) 1 mg tablet Discontinued 4 MG PO DAILY January 04, 2022 2:25pm April 13, 2022 4:33pm Start: 08-08-2020 End: 01-22-2023 take 1 tablet by mouth once daily at dinner glimepiride (AMARYL) 1 mg tablet Take 1 tablet by mouth daily with dinner. 0 06/12/2021 01/22/2023 Discontinued (Changing Therapy/Dosage Form) Start: 07-10-2018 End: 10-07-2018 take 1 mg by mouth once daily Glimepiride Discontinued 1 MG PO DAILY July 10, 2018 12:00am October 07, 2018 8:53am Comment on above: Take 1 tablet by lauryn th daily with dinner. 3 ml insulin glargine 100 unt/ml pen injector (20 sources) Insulin Analog Start: 01-29-2023 BASAGLAR KWIKPEN U-100 INSULIN 100 unit/mL (3 mL) Inject 27 Units subcutaneously every morning. 01/29/2023 Active Start: 01-29-2023 BASAGLAR KWIKP EN U-100 INSULIN 100 unit/mL (3 mL) Inject 25 Units subcutaneously every morning. 01/29/2023 Active Start: 01-29-2023 BASAGLAR KWIKP EN U-100 INSULIN 100 unit/mL (3 mL) MEN'S MULTI-VITAMIN ORAL (20 sources) MEN'S MULTI-KAILA MIN ORAL Take 1 tablet by mouth. Active MEN'S MULTI-KAILA MIN ORAL Take 1 tablet by mouth. 0 Active Comment on above: Take 1 tablet by lauryn th. Multiple Vitamin (MULTIVITAMIN ADULT PO) (8 sources) Multiple Vitamin (MULTIVITAMIN ADULT PO) Take by mouth. Active Multivitamin preparation (4 sources) Start: 7 take 1 tablet by mouth once daily Multivitamin Active 1 TABLET PO DAILY July 11, 2016 12:00am oxycodone HCl/acetaminophen (PERCOCET ORAL) (4 sources) oxycodone HCl/acetaminophen (PERCOCET ORAL) Take by mouth. 0 Active polyethylene glycol 3350 74004 mg powder for oral solution (6 sources) Osmotic Laxative Start: 5 polyethylene glycol 3350 17 gram packet Take 1 packet by mouth once daily. Dissolve dose in 4 - 8 ounces of liquid and take as directed. 06/10/2024 Active psyllium 400 mg oral capsule (3 sources) Start: 5 End: 5 psyllium husk (METAMUCIL) 0.4 gram cap Take 1 capsule by mouth once daily. 100 capsule 07/02/2024 08/01/2024 Active rosuvastatin calcium 10 mg oral tablet (20 sources) HMG-CoA Reductase Inhibitor Start: 1 End: 2 take 1 tablet by mouth once daily at bedtime rosuvastatin (CRESTOR) 10 mg tablet Take 1 tablet by mouth daily at bedtime. 90 tablet 3 12/12/2020 Active Comment on above: Take 1 tablet by lauryn daily at bedtime. SITagliptin 100 mg oral tablet (20 sources) Dipeptidyl Peptidase 4 Inhibitor Start: 7 End: 3 SITagliptin (ZITUVIO) 100 mg tablet Take by mouth. 07/11/2016 Active take 1 tablet by mouth once steven y SITagliptin (Januvia) 100 MG tablet Take 100 mg by mouth daily. Active Comment on above: Take 1 tablet by lauryn twice daily. tamsulosin hydrochloride 0.4 mg oral capsule (20 sources) alpha-Adrenergic Monster Start: 07-10-2018 take 0.4 mg by mouth once daily Tamsulosin Active 0.4 MG PO DAILY July 10, 2018 12:00am take 0.4 mg by mouth twice daily tamsulosin (FLOMAX) 0.4 mg Take 0.4 mg by mouth two times a day. Active Comment on above: Take 0.4 mg by mouth once daily. traMADol (4 sources) Opioid Agonist tramadol HCl (UL TRAM ORAL) Take by mouth. Active vitamin b12 0.5 mg oral tablet (20 sources) Vitamin B12 Start: 07-11-2016 take 500 ug by mouth once daily Cyanocobalamin (Vitamin B-12) Active 500 MCG PO DAILY July 11, 2016 12:00am take 1 tablet by mouth once steven y cyanocobalamin (VITAMIN B-12) 1,000 mcg tab Take 1,000 mcg by mouth once daily. Active Comment on above: Take 1,000 mcg by mo [facility] once daily. Completed/Discontinued Medications Medication Drug Class(es) Dates Sig (Normalized) Sig (Original) acetaminophen 325 mg oral tablet (8 sources) Start: 07-21-2024 End: 07-22-2024 take 1 tablet by mouth every four hours as needed Start: 06-05-2024 End: 07-05-2024 take 2 tablets by mouth every eight hours acetaminophen (TYLENOL) 500 mg tablet Take 2 tablets by mouth every 8 hours. 180 tablet 06/05/2024 07/05/2024 Start: 07-24-2018 End: 07-28-2018 take 2 tablets by mouth every six hours as needed Acetaminophen (Tylenol) 325 MG tablet Discontinued 650 MG PO EVERY 6 HOURS NEEDED July 24, 2018 10:24am July 28, 2018 8:53pm acetaminophen 325 mg / HYDROcodone bitartrate 5 mg oral tablet (5 sources) Opioid Agonist Start: 07-21-2024 End: 07-22-2024 take 1-2 tablets by mouth every four hours as needed Start: 07-11-2016 End: 07-14-2016 Hydrocodone-Acetaminophen (N orco 5-325 Tablet) 1 EACH tablet Discontinued 1 EACH PO EVERY 6 HOURS NEEDED July 11, 2016 12:00am July 14, 2016 11:08am acetaminophen 325 mg / oxyCODONE hydrochloride 5 mg oral tablet (4 sources) Opioid Agonist Start: 07-28-2018 End: 07-31-2018 take 1 tablet by mouth every six hours as needed Oxycodone-Acetaminophen Discontinued 1 TABLET PO EVERY 6 HOURS NEEDED 12 3 July 28, 2018 12:00am July 31, 2018 12:06am dapagliflozin 10 mg oral tablet (3 sources) Sodium-Glucose Cotransporter 2 Inhibitor Start: 04-13-2022 End: 07-31-2022 take 1 tablet by mouth once daily Dapagliflozin Propanediol (Farxiga) 10 mg tablet Discontinued 10 MG PO DAILY April 13, 2022 1:00am July 31, 2022 2:11pm diclofenac sodium 0.01 mg/mg topical gel (3 sources) Nonsteroidal Anti-inflammator y Drug Start: 06-05-2024 End: 07-05-2024 apply 4 g topically four times daily diclofenac (VOLTAREN ARTHRITIS PAIN) 1 % topical gel Apply 4 g to affected area four times daily. 450 g 06/05/2024 07/05/2024 diphenhydrAMINE hydrochloride 25 mg oral capsule (6 sources) Histamine-1 Receptor Antagonist Start: 06-30-2024 End: 06-30-2024 take 1 dose by mouth once 50 mg, ORAL, ONCE, 1 dose, On Sat06/30/24 at 1230 Start: 06-02-2024 End: 06-02-2024 take 1 dose by mouth once 50 mg, ORAL, ONCE, 1 dose, O n Sat06/02/24 at 1200 Start: 05-05-2024 End: 05-05-2024 take 1 dose by mouth once 50 mg, ORAL, ONCE, 1 dose, O n 05/05/24 at 1230 Start: 04-07-2024 End: 04-07-2024 take 1 dose by mouth once 50 mg, ORAL, ONCE, 1 dose, O n 04/07/24 at 1230 Start: 02-07-2024 End: 02-07-2024 take 1 dose by mouth once 50 mg, ORAL, ONCE, 1 dose, O n Sat02/07/24 at 1100 Start: 01-10-2024 End: 01-10-2024 take 1 dose by mouth once 50 mg, ORAL, ONCE, 1 dose, O n Sat01/10/24 at 1100 docusate sodium 100 mg oral capsule (3 sources) Start: 06-05-2024 End: 07-05-2024 take 1 capsule by mouth every twelve hours as needed docusate sodium (COLACE) 100 mg capsule Take 1 capsule by mouth two times a day as needed for constipation. 30 capsule 06/05/2024 07/05/2024 doxycycline monohydrate 100 mg oral capsule (4 sources) Tetracycline-class Drug Start: 07-10-2018 End: 07-24-2018 take 100 mg by mouth once daily Doxycycline Monohydrate Discontinued 100 MG PO DAILY July 10, 2018 12:00am July 24, 2018 10:22am infection hydrocortisone 100 mg injection (6 sources) Corticosteroid Start: 06-30-2024 End: 06-30-2024 100 mg, INTRAVENOUS, ONCE, 1 dose, On Sat06/30/24 at 1230 Start: 06-02-2024 End: 06-02-2024 100 mg, INTRAVENOUS, ONCE, 1 dose, On Sat06/02/24 at 1200 Start: 05-05-2024 End: 05-05-2024 100 mg, INTRAVENOUS, ONCE, 1 dose, On Sat05/05/24 at 1230 Start: 04-07-2024 End: 04-07-2024 100 mg, INTRAVENOUS, ONCE, 1 dose, On Sat04/07/24 at 1230 Start: 02-07-2024 End: 02-07-2024 100 mg, INTRAVENOUS, ONCE, 1 dose, On Sat02/07/24 at 1100 Start: 01-10-2024 End: 01-10-2024 100 mg, INTRAVENOUS, ONCE, 1 dose, On Sat01/10/24 at 1100 imetelstat 543.76 mg in NaCl 0.9% 500 mL (RYTELO) (4 sources) Start: 06-30-2024 End: 06-30-2024 543.76 mg (5.6 mg/kg/dose 97 .1 kg Treatment plan Recorded weight), INTRAVENOUS, Administer over 120 Minutes, ONCE, 1 dose, On Sat06/30/24 at 1300, Total Volume. Refrigerate. Hazardous Chemotherapy Drug: Use appropriate PPE. Start: 06-02-2024 End: 06-02-2024 543.76 mg (5.6 mg/kg/dose 97 .1 kg Treatment plan Recorded weight), INTRAVENOUS, Administer over 120 Minutes, ONCE, 1 dose, On Sat06/02/24 at 1230, Total volume = 557.3ml Total Volume. Refrigerate. Hazardous Chemotherapy Drug: Use appropriate PPE. Start: 05-05-2024 End: 05-05-2024 543.76 mg (5.6 mg/kg/dose 97 .1 kg Treatment plan Recorded weight), INTRAVENOUS, Administer over 120 Minutes, ONCE, 1 dose, On Sat05/05/24 at 1300, Total Volume. Refrigerate. Hazardous Chemotherapy Drug: Use appropriate PPE. Start: 04-07-2024 End: 04-07-2024 543.76 mg (5.6 mg/kg/dose 97 .1 kg Treatment plan Recorded weight), INTRAVENOUS, Administer over 120 Minutes, ONCE, 1 dose, On Sat04/07/24 at 1300, Total Volume. Refrigerate. Hazardous Chemotherapy Drug: Use appropriate PPE. imetelstat 689.41 mg in NaCl 0.9% 500 mL (RYTELO) (2 sources) Start: 02-07-2024 End: 02-07-2024 689.41 mg (7.1 mg/kg/dose 97 .1 kg Treatment plan Recorded weight), INTRAVENOUS, Administer over 120 Minutes, ONCE, 1 dose, On Sat02/07/24 at 1130, Total Volume. Refrigerate. Hazardous Chemotherapy Drug: Use appropriate PPE. Start: 01-10-2024 End: 01-10-2024 689.41 mg (7.1 mg/kg/dose 97 .1 kg Treatment plan Recorded weight), INTRAVENOUS, Administer over 120 Minutes, ONCE, 1 dose, On Sat01/10/24 at 1130, Total Volume. Refrigerate. Hazardous Chemotherapy Drug: Use appropriate PPE. insulin glargine-aglr 100 unit/mL (3 mL) inpn (1 source) Start: 01-29-2023 End: 03-05-2023 insulin glargine-aglr 100 unit/mL (3 mL) inpn Insulin Glargine (Basaglar Kwikpen U-100 Insulin) 100 unit/mL (3 mL) insulin pen Active 10 UNIT SC EVERY EVENING January 29, 2023 12:00am 0 01/29/2023 03/05/2023 Discontinued (Changing Therapy/Dosage Form) luspatercept-aamt 125 mg in syringe 2.5 mL (REBLOZYL) (2 sources) Start: 07-12-2023 End: 07-12-2023 luspatercept-aamt 125 mg in syringe 2.5 mL (REBLOZYL) Start: 06-21-2023 End: 06-21-2023 luspatercept-aamt 125 mg in syringe 2.5 mL (REBLOZYL) luspatercept-aamt 170.5 mg i n syringe 3.41 mL (REBLOZYL) (12 sources) Start: 06-30-2024 End: 06-30-2024 170.5 mg (rounded from 170.625 mg = 1.75 mg/kg/dose 97.5 kg Treatment plan Recorded weight), SUBCUTANEOUS, ONCE, 1 dose, On Sat06/30/24 at 1230, EXP: 06/30/24 at 2100 Refrigerate - EXP: (24 HR) Inject into the upper arm, thigh, and/or abdomen. Doses requiring larger reconstituted volumes (greater than 1.2 mL) should be divided into separate syringes; inject into separate sites. Start: 05-26-2024 End: 05-26-2024 170.5 mg (rounded from 170.6 25 mg = 1.75 mg/kg/dose 97.5 kg Treatment plan Recorded weight), SUBCUTANEOUS, ONCE, 1 dose, On Sat05/26/24 at 1400, EXP: 05/06/24 @ 1400 Refrigerate - EXP: (24 HR) Inject into the upper arm, thigh, and/or abdomen. Doses requiring larger reconstituted volumes (greater than 1.2 mL) should be divided into separate syringes; inject into separate sites. Start: 05-05-2024 End: 05-05-2024 170.5 mg (rounded from 170.6 25 mg = 1.75 mg/kg/dose 97.5 kg Treatment plan Recorded weight), SUBCUTANEOUS, ONCE, 1 dose, On Sat05/05/24 at 1330, EXP: 05/06/24 @ 1400 Refrigerate - EXP: (24 HR) Inject into the upper arm, thigh, and/or abdomen. Doses requiring larger reconstituted volumes (greater than 1.2 mL) should be divided into separate syringes; inject into separate sites. Start: 04-14-2024 End: 04-14-2024 170.5 mg (rounded from 170.6 25 mg = 1.75 mg/kg/dose 97.5 kg Treatment plan Recorded weight), SUBCUTANEOUS, ONCE, 1 dose, On Sat04/14/24 at 1330, EXP: Refrigerate - EXP: (24 HR) Inject into the upper arm, thigh, and/or abdomen. Doses requiring larger reconstituted volumes (greater than 1.2 mL) should be divided into separate syringes; inject into separate sites. Start: 03-24-2024 End: 03-24-2024 170.5 mg (rounded from 170.6 25 mg = 1.75 mg/kg/dose 97.5 kg Treatment plan Recorded weight), SUBCUTANEOUS, ONCE, 1 dose, On Sat03/24/24 at 1400, EXP: 03/25/23 @ 1330 Refrigerate - EXP: (24 HR) Inject into the upper arm, thigh, and/or abdomen. Doses requiring larger reconstituted volumes (greater than 1.2 mL) should be divided into separate syringes; inject into separate sites. Start: 12-11-2023 End: 12-11-2023 170.5 mg (rounded from 170.6 25 mg = 1.75 mg/kg/dose 97.5 kg Treatment plan Recorded weight), SUBCUTANEOUS, ONCE, 1 dose, On Sat12/11/23 at 1430, Refrigerate - EXP: (24 HR) Inject into the upper arm, thigh, and/or abdomen. Doses requiring larger reconstituted volumes (greater than 1.2 mL) should be divided into separate syringes; inject into separate sites. Start: 11-19-2023 End: 11-19-2023 170.5 mg (rounded from 170.6 25 mg = 1.75 mg/kg/dose 97.5 kg Treatment plan Recorded weight), SUBCUTANEOUS, ONCE, 1 dose, On Sat11/19/23 at 1330, Refrigerate - EXP: (24 HR) Inject into the upper arm, thigh, and/or abdomen. Doses requiring larger reconstituted volumes (greater than 1.2 mL) should be divided into separate syringes; inject into separate sites. Start: 10-29-2023 End: 10-29-2023 170.5 mg (rounded from 170.6 25 mg = 1.75 mg/kg/dose 97.5 kg Treatment plan Recorded weight), SUBCUTANEOUS, ONCE, 1 dose, On Sat10/29/23 at 1400, Refrigerate - EXP: (24 HR) Inject into the upper arm, thigh, and/or abdomen. Doses requiring larger reconstituted volumes (greater than 1.2 mL) should be divided into separate syringes; inject into separate sites. Start: 10-08-2023 End: 10-08-2023 luspatercept-aamt 170.5 mg i n syringe 3.41 mL (REBLOZYL) Start: 09-13-2023 End: 09-13-2023 luspatercept-aamt 170.5 mg i n syringe 3.41 mL (REBLOZYL) Start: 08-23-2023 End: 08-23-2023 luspatercept-aamt 170.5 mg i n syringe 3.41 mL (REBLOZYL) Start: 08-02-2023 End: 08-02-2023 luspatercept-aamt 170.5 mg i n syringe 3.41 mL (REBLOZYL) metFORMIN hydrochloride 1000 mg oral tablet (20 sources) Biguanide Start: 12-31-2022 End: 03-05-2023 metFORMIN (GLUCOPHAGE) 1,000 mg tablet Start: 06-12-2021 End: 01-22-2023 take 1 tablet by mouth twice daily metFORMIN ER (GLUCOPHAGE XR) 750 mg 24 hr tablet Take 1 tablet by mouth twice daily. 0 06/12/2021 01/22/2023 Discontinued (Changing Therapy/Dosage Form) Start: 07-11-2016 End: 07-31-2022 take 850 mg by mouth once daily Metformin Discontinued 850 MG PO DAILY July 11, 2016 12:00am July 31, 2022 2:32pm Comment on above: Take 1 tablet by lauryn twice daily. metFORMIN hydrochloride 1000 mg / SITagliptin 50 mg oral tablet (20 sources) Biguanide, Dipeptidyl Peptidase 4 Inhibitor Start: 09-28-2022 End: 01-22-2023 JANUMET 50-1,000 mg per tablet Start: 01-04-2022 End: 01-04-2022 take 1 tablet by mouth twice daily Sitagliptin Phos-Metformin (Janumet) 50-1,000 mg tablet Discontinued 1 TABLET PO TWICE A DAY January 04, 2022 2:12pm January 04, 2022 2:25pm Start: 12-20-2021 End: 07-31-2022 take 1 tablet by mouth once daily Sitagliptin Phos-Metformin (Janumet Xr) 100-1,000 mg tablet, ER multiphase 24 hr Active 1 TABLET PO DAILY 180 July 31, 2022 2:32pm Start: 09-05-2021 End: 01-04-2022 take 1 tablet by mouth once daily Sitagliptin Phos-Metformin (Janumet) 50-1,000 mg Tablet Discontinued 1 TABLET PO DAILY September 05, 2021 12:00am January 04, 2022 2:13pm 2 ml ondansetron 2 mg/ml injection (1 source) Serotonin-3 Receptor Antagonist Start: 07-21-2024 End: 07-22-2024 take 4 mg intravenously every six hours as needed oxyCODONE hydrochloride 5 mg oral tablet (4 sources) Opioid Agonist Start: 07-14-2016 End: 09-15-2016 take 5 mg by mouth every four hours as needed Oxycodone Discontinued 5 MG PO EVERY 4 HOURS NEEDED July 14, 2016 12:00am September 15, 2016 2:16am pantoprazole 40 mg delayed release oral tablet (10 sources) Proton Pump Inhibitor Start: 2022 End: 01-22-2023 take 1 tablet by mouth once daily, then take 6 tablets by mouth in the morning pantoprazole DR (PROTONIX) 40 mg tablet Take 1 tablet by mouth DAILY (6 AM). 30 tablet 0 2022 01/22/2023 Discontinued (Changing Therapy/Dosage Form) Comment on above: Take 1 tablet by lauryn th DAILY (6 AM). predniSONE 20 mg oral tablet (4 sources) Start: 08-04-2018 End: 10-07-2018 take 20 mg by mouth once daily Prednisone Discontinued 20 MG PO DAILY August 04, 2018 12:00am October 07, 2018 8:53am sildenafil (1 source) Phosphodiesterase 5 Inhibitor sildenafil citrate (VIAGRA ORAL) Take 1 tablet by mouth as needed. 0 Active Comment on above: Take 1 tablet by lauryn th as needed. sitagliptin phos/metformin HCl (JANUMET ORAL) (9 sources) End: 01-22-2023 sitagliptin phos/metformin HCl (JANUMET ORAL) Take 100 mg by mouth. 0 01/22/2023 Discontinued (Discontinued by another Health Care Provider) sitagliptin phos /metformin HCl (JANUMET ORAL) Take 100 mg by mouth. 0 Active Comment on above: Take 100 mg by mouth . tiZANidine 2 mg oral tablet (3 sources) Central alpha-2 Adrenergic Agonist Start: 06-05-2024 End: 07-05-2024 take 1 tablet by mouth every eight hours as needed tiZANidine (ZANAFLEX) 2 mg tablet Take 1 tablet by mouth every 8 hours as needed. 60 tablet 06/05/2024 07/05/2024 Problems Active Problems Problem Classification Problem Date Documented Da te Episodic/Chronic Abdominal hernia (6 sources) Unspecified abdominal hernia without obstruction or gangrene; Translations: [Hernia of anterior abdominal wall] Onset: 7 11-04-2018 Episodic Acquired foot deformities (1 source) Foot drop, right foot; Translations: [Right foot drop] Onset: 5 Episodic Acute cerebrovascular disease (20 sources) Cerebrovascular accident; Translations: [Cerebral infarction, unspecified] Onset: 1 06-27-2020 Chronic Cardiac dysrhythmias (1 source) Supraventricular tachycardia; Translations: [SVT (supraventricular tachycardia) (HCC)] 09-19-2023 Chronic Chronic obstructive pulmonary disease and bronchiectasis (12 sources) Bronchitis co-occurrent with acute wheeze; Translations: [Bronchitis, not specified as acute or chronic] Onset: 5 08-08-2020 Episodic Coagulation and hemorrhagic disorders (20 sources) Platelet count below reference range; Translations: [Thrombocytopenia, unspecified] Onset: 3 01-22-2023 Chronic Conduction disorders (1 source) Mobitz type I incomplete atrioventricular block; Translations: [Atrioventricular block, second degree] 09-19-2023 Chronic Congestive heart failure; nonhypertensive (8 sources) Heart failure; Translations: [Heart failure, unspecified] Onset: 5 07-24-2024 Chronic Deficiency and other anemia (3 sources) Anemia, unspecified; Translations: [Anemia, unspecified type] Onset: 4 Episodic Deficiency and other anemia (1 source) Deficiency and other anemia Onset: 8 Diabetes mellitus with complications (20 sources) Hyperglycemia due to diabetes mellitus; Translations: [Type 2 diabetes mellitus with hyperglycemia] Onset: 4 02-24-2020 Chronic Diabetes mellitus with complications (1 source) Type 2 diabetes mellitus with diabetic neuropathy, unspecified; Translations: [TYPE 2 DM W/DIABETIC OSMEL] Onset: 7 Diabetes mellitus without complication (20 sources) Type 2 diabetes mellitus; Translations: [Type 2 diabetes mellitus without complications] Onset: 3 04-16-2022 Chronic Diseases of mouth; excluding dental (12 sources) Uvulitis; Translations: [Cellulitis and abscess of mouth] Onset: 5 08-07-2020 Episodic Diseases of white blood cells (12 sources) Leukocytosis; Translations: [Elevated white blood cell count, unspecified] Onset: 5 11-04-2018 Chronic Disorders of lipid metabolism (20 sources) Hyperlipidemia; Translations: [Hyperlipidemia, unspecified] Onset: 3 11-04-2018 Chronic Diverticulosis and diverticulitis (12 sources) Diverticulitis; Translations: [Diverticulitis of intestine, part unspecified, without perforation or abscess without bleeding] Onset: 5 11-04-2018 Chronic Essential hypertension (15 sources) Hypertensive disorder; Translations: [Essential (primary) hypertension] Onset: 5 04-16-2022 Chronic Gastritis and duodenitis (8 sources) Gastritis; Translations: [Gastritis, unspecified, without bleeding] Onset: 5 07-24-2024 Episodic Gastrointestinal hemorrhage (4 sources) Black feces symptom; Translations: [Melena] 01-27-2020 Episodic Hyperplasia of prostate (20 sources) Benign prostatic hyperplasia without lower urinary tract symptoms; Translations: [Large prostate ] Onset: 7 11-04-2018 Chronic Infective arthritis and osteomyelitis (except that caused by tuberculosis or sexually transmitted di (3 sources) Osteomyelitis of vertebra, lumbar region; Translations: [OSTEOMYELITIS VERTEBRA L] Onset: Chronic Intestinal obstruction without hernia (1 source) Fecal impaction; Translations: [Fecal impaction (HCC)] Onset: 5 Episodic Malignant neoplasm without specification of site (20 sources) Malignant tumor of unknown origin; Translations: [Malignant (primary) neoplasm, unspecified] Onset: 3 03-29-2023 Chronic Nausea and vomiting (12 sources) Vomiting; Translations: [Vomiting, unspecified] Onset: 5 11-04-2018 Episodic Neoplasms of unspecified nature or uncertain behavior (20 sources) Myelodysplastic syndrome (clinical); Translations: [Myelodysplastic syndrome, unspecified] Onset: 4 08-02-2023 Episodic Occlusion or stenosis of precerebral arteries (8 sources) Carotid artery stenosis; Translations: [Occlusion and stenosis of unspecified carotid artery] Onset: 5 07-24-2024 Chronic Osteoarthritis (12 sources) Osteoarthritis; Translations: [Unspecified osteoarthritis, unspecified site] Onset: 5 11-04-2018 Chronic Osteoporosis (12 sources) Age-related osteoporosis without current pathological fracture; Translations: [Osteoporosis] Onset: 7 01-04-2022 Chronic Other aftercare (1 source) assisted (current) use of insulin; Translations: [Type 2 diabetes mellitus without complication, with long-term current use of insulin (HCC)] Onset: 4 Episodic Other aftercare (6 sources) Follow-up status; Translations: [Encounter for other specified aftercare] Onset: 5 06-09-2024 Episodic Other and unspecified benign neoplasm (11 sources) Tubular adenoma of colon; Translations: [Benign neoplasm of colon, unspecified] Onset: 5 10-06-2021 Episodic Other circulatory disease (6 sources) History of cerebrovascular accident; Translations: [Personal history of transient ischemic attack (TIA), and cerebral infarction without residual deficits] Onset: 5 06-10-2024 Episodic Other endocrine disorders (8 sources) Deficiency of testosterone biosynthesis; Translations: [Testicular hypofunction] Onset: 5 07-24-2024 Chronic Other endocrine disorders (12 sources) Hypotestosteronism; Translations: [Endocrine disorder, unspecified] Onset: 5 11-04-2018 Episodic Other gastrointestinal disorders (8 sources) Constipation; Translations: [Constipation, unspecified] Onset: 5 07-24-2024 Episodic Other gastrointestinal disorders (1 source) Drug induced constipation; Translations: [Drug-induced constipation] Onset: 5 Episodic Other hematologic conditions (16 sources) Cytopenia; Translations: [Disease of blood and blood-forming organs, unspecified] 07-03-2022 Episodic Other hematologic conditions (1 source) Disease of blood and blood-forming organs, unspecified; Translations: [Clonal cytopenia of undetermined significance (CCUS)] Onset: 5 Episodic Other liver diseases (8 sources) Lesion of liver; Translations: [Liver disease, unspecified] Onset: 5 07-24-2024 Chronic Other liver diseases (12 sources) Large liver; Translations: [Hepatomegaly, not elsewhere classified] Onset: 5 11-04-2018 Episodic Other lower respiratory disease (12 sources) Hiccoughs; Translations: [Hiccough] Onset: 5 10-07-2018 Episodic Other male genital disorders (8 sources) Male erectile dysfunction, unspecified; Translations: [Impotence of organic origin] Onset: 5 07-24-2024 Chronic Other nervous system disorders (20 sources) Expressive dysphasia; Translations: [Aphasia] Onset: 4 06-09-2023 Chronic Other nervous system disorders (8 sources) Paresthesia; Translations: [Paresthesia of skin] Onset: 5 07-24-2024 Episodic Other nervous system disorders (1 source) Unspecified abnormalities of gait and mobility; Translations: [Gait difficulty] Onset: 5 Episodic Other nutritional; endocrine; and metabolic disorders (3 sources) Obesity; Translations: [Obesity, unspecified] 01-04-2022 Chronic Other nutritional; endocrine; and metabolic disorders (3 sources) Obesity, unspecified; Translations: [Obesity, unspecified] 04-13-2022 Chronic Other nutritional; endocrine; and metabolic disorders (20 sources) Obese class I; Translations: [Obesity, unspecified] Onset: 3 05-26-2022 Chronic Other screening for suspected conditions (not mental disorders or infectious disease) (5 sources) Patient encounter status; Translations: [Encounter for screening for malignant neoplasm of colon] Episodic Residual codes; unclassified (4 sources) History of colonoscopy; Translations: [Other specified postprocedural states] 11-04-2018 Episodic Residual codes; unclassified (4 sources) H/O Spinal surgery; Translations: [Other specified postprocedural states] 11-04-2018 Episodic Residual codes; unclassified (1 source) Other specified health status; Translations: [Decreased activities of daily living (ADL)] Onset: 5 Episodic Skin and subcutaneous tissue infections (12 sources) Cellulitis; Translations: [Cellulitis, unspecified] Onset: 5 10-07-2018 Episodic Spondylosis; intervertebral disc disorders; other back problems (20 sources) Infection of intervertebral disc (pyogenic), lumbar region; Translations: [Herniation of nucleus pulposus] Onset: 7 10-07-2018 Chronic Spondylosis; intervertebral disc disorders; other back problems (20 sources) Intervertebral disc disorders with radiculopathy, lumbosacral region; Translations: [Spinal stenosis, lumbar region] Onset: 7 10-07-2018 Episodic Sprains and strains (16 sources) Low back strain; Translations: [Strain of muscle, fascia and tendon of lower back, initial encounter] Onset: 5 07-06-2016 Episodic Transient cerebral ischemia (20 sources) Transient cerebral ischemic attack, unspecified; Translations: [Transient cerebral ischemia] Onset: 4 06-08-2023 Chronic Unclassified (1 source) Abnormal weight loss / R63.4(ICD-10) Onset: 8 Unclassified (1 source) assisted (current) use of oral hypoglycemic drugs; Translations: [RESIDENTIAL USE ORAL HYPOG] Onset: 7 Unclassified (1 source) Unknown / UNK(Unknown) Onset: 7 Unclassified (1 source) Acute bilateral low back pain without sciatica; Translations: [Acute bilateral low back pain without sciatica] Onset: 5 Unclassified (1 source) Established Patient Onset: 4 Viral infection (12 sources) Viral disease; Translations: [Viral infection, unspecified] Onset: 5 02-24-2020 Episodic Past or Other Problems Problem Classification Problem Date Documented Da te Episodic/Chronic Bacterial infection (1 source) Personal history of Methicillin resistant Staphylococcus aureus infection; Translations: [PERS HX METHICILLIN RSIS] Onset: 08-31-2016 Episodic Deficiency and other anemia (20 sources) Anemia; Translations: [Anemia, unspecified] Onset: 05-22-2022 09-05-2021 Episodic Genitourinary symptoms and ill-defined conditions (1 source) Frequency of micturition; Translations: [FREQUENCY OF MICTURITION] Onset: 08-31-2016 Episodic Malaise and fatigue (20 sources) Asthenia; Translations: [Weakness] Onset: 06-12-2021 06-12-2021 Episodic Other acquired deformities (1 source) Other specified deforming dorsopathies, lumbar region; Translations: [OTH DEFORMING DORSOPATHI] Onset: 10-31-2016 Episodic Other aftercare (2 sources) termite control representative (current) use of aspirin; Translations: [Other meterman (current) drug therapy] Onset: 08-31-2016 Episodic Other connective tissue disease (20 sources) Diastasis recti; Translations: [Separation of muscle (nontraumatic), other site] Onset: 01-03-2013 01-03-2013 Episodic Other diseases of kidney and ureters (3 sources) Cyst of kidney, acquired; Translations: [CYST OF KIDNEY ACQUIRED] Onset: 10-22-2016 Episodic Other gastrointestinal disorders (1 source) Constipation, unspecified; Translations: [CONSTIPATION UNSPECIFIED] Onset: 08-31-2016 Episodic Pneumonia (except that caused by tuberculosis or sexually transmitted disease) (20 sources) Pneumonia; Translations: [Pneumonia, unspecified organism] Onset: 06-11-2021 06-11-2021 Episodic Superficial injury; contusion (1 source) Contusion of right front wall of thorax, initial encounter; Translations: [Contusion of right chest wall, initial encounter] Onset: 09-30-2023 Episodic Unclassified (1 source) Localized edema; Translations: [LOCALIZED EDEMA] Onset: 10-31-2016 Episodic Unclassified (1 source) M54.16...LUMBAR RADIUCULOPATHY Onset: 11-19-2016 Results Test Name Value Interpretation Reference Range Facility [facility] 08-05-2024 CNPN Normal [facility] CBC W Auto Differential pane l (Bld)on 08-04-2024 Basophils (Bld) [#/Vol] 0.04 10*3/uL Normal <0.11 [facility] Comment on above: Order Comment: Speci men Type: BLOOD SPECIMENOrdering Facility: [facility] Address: [address] [place] [address] Performed By: #### 5 7021-8 ####[facility] [place] LABCLIA [id number] [address] [place] Basophils/100 WBC (Bld) 0.6 % Normal [facility] Comment on above: Order Comment: Speci men Type: BLOOD SPECIMENOrdering Facility: [facility] Address: [address] [place] [address] Performed By: #### 5 7021-8 ####[facility] [place] LABCLIA [id number] [place] [id number] [place] Differential cell count method Nom (Bld) Auto Normal [facility] Comment on above: Order Comment: Speci men Type: BLOOD SPECIMENOrdering Facility: [facility] Address: [address] [place] [address] Performed By: #### 5 7021-8 ####[facility] [place] LABCLIA [id number] [facility] [place] [address] [facility] Eosinophils (Bld) [#/Vol] 10*3/uL Normal <0.46 [facility] Comment on above: Order Comment: Speci men Type: BLOOD SPECIMENOrdering Facility: [facility] Address: [address] [place] [address] Performed By: #### 5 7021-8 ####[facility] [place] LABCLIA [id number] [facility] [place] [address] [facility] Eosinophils/100 WBC (Bld) 0.1 % Normal [facility] Comment on above: Order Comment: Speci men Type: BLOOD SPECIMENOrdering Facility: [facility] Address: [address] [place] [address] Performed By: #### 5 7021-8 ####[facility] [place] LABCLIA [id number] [facility] [place] [address] [facility] Erythrocyte distribution width (RBC) [Ratio] 16.2 % High 11.5-15.0 [facility] Comment on above: Order Comment: Speci men Type: BLOOD SPECIMENOrdering Facility: [facility] Address: [address] [place] [address] Performed By: #### 5 7021-8 ####[facility] [place] LABCLIA [id number] [facility] [place] [address] [facility] Hematocrit (Bld) [Volume fraction] 22.1 % Low 39.0-51.0 [facility] Comment on above: Order Comment: Speci men Type: BLOOD SPECIMENOrdering Facility: [facility] Address: [address] [place] [address] Performed By: #### 5 7021-8 ####[facility] [place] LABCLIA [id number] [facility] [place] [address] [place] Hemoglobin (Bld) [Mass/Vol] 7.2 g/dL Low 13.0-17.0 [facility] Comment on above: Order Comment: Speci men Type: BLOOD SPECIMENOrdering Facility: [facility] Address: [address] [place] [address] Performed By: #### 5 7021-8 ####[facility] [place] LABCLIA [id number] [place] [address] [place] Immature granulocytes (Bld) [#/Vol] 10*3/uL Normal <0.10 [facility] Comment on above: Order Comment: Speci men Type: BLOOD SPECIMENOrdering Facility: [facility] Address: [address] [place] [address] Performed By: #### 5 7021-8 ####[facility] [place] LABCLIA [id number] [place] [address] [place] Immature granulocytes/100 WBC (Bld) 0.3 % Normal [facility] Comment on above: Order Comment: Speci men Type: BLOOD SPECIMENOrdering Facility: [facility] Address: [address] [place] [address] Performed By: #### 5 7021-8 ####[facility] [place] LABCLIA [id number] [place] [address] [place] Lymphocytes (Bld) [#/Vol] 2.63 10*3/uL Normal 1.00-4.00 [facility] Comment on above: Order Comment: Speci men Type: BLOOD SPECIMENOrdering Facility: [facility] Address: [address] [place] [address] Performed By: #### 5 7021-8 ####[facility] [place] LABCLIA [id number] [place] [id number] [facility] [place] Lymphocytes/100 WBC (Bld) 38.8 % Normal [facility] Comment on above: Order Comment: Speci men Type: BLOOD SPECIMENOrdering Facility: [facility] Address: [address] [place] [address] Performed By: #### 5 7021-8 ####[facility] [place] LABCLIA [id number] [place] [address] [facility] MCH (RBC) [Entitic mass] 28.8 pg Normal 26.0-34.0 [facility] Comment on above: Order Comment: Speci men Type: BLOOD SPECIMENOrdering Facility: [facility] Address: [address] [place] [address] Performed By: #### 5 7021-8 ####[facility] [place] LABCLIA [id number] [place] [address] [facility] MCHC (RBC) [Mass/Vol] 32.6 g/dL Normal 30.5-36.0 [facility] Comment on above: Order Comment: Speci men Type: BLOOD SPECIMENOrdering Facility: [facility] Address: [address] [place] [address] Performed By: #### 5 7021-8 ####[facility] LABCLIA [id number] [address] MCV (RBC) [Entitic vol] 88.4 fL Normal 80.0-100.0 [facility] Comment on above: Order Comment: Speci men Type: BLOOD SPECIMENOrdering Facility: [facility] Address: [address] [place] [address] Performed By: #### 5 7021-8 ####[facility] LABCLIA [id number] [place] [id number] [place] [facility] Monocytes (Bld) [#/Vol] 0.54 10*3/uL Normal <0.87 [facility] Comment on above: Order Comment: Speci men Type: BLOOD SPECIMENOrdering Facility: [facility] Address: [address] [place] [address] Performed By: #### 5 7021-8 ####[facility] LABCLIA [id number] [place] [address] [facility] Monocytes/100 WBC (Bld) 8.0 % Normal [facility] Comment on above: Order Comment: Speci men Type: BLOOD SPECIMENOrdering Facility: [facility] Address: [address] [place] [address] Performed By: #### 5 7021-8 ####[facility] [place] LABCLIA [id number] [place] [address] [place] Neutrophils (Bld) [#/Vol] 3.53 10*3/uL Normal 1.45-7.50 [facility] Comment on above: Order Comment: Speci men Type: BLOOD SPECIMENOrdering Facility: [facility] Address: [address] [place] [address] Performed By: #### 5 7021-8 ####[facility] [place] LABCLIA [id number] [place] [address] [place] Neutrophils/100 WBC (Bld) 52.2 % Normal [facility] Comment on above: Order Comment: Speci men Type: BLOOD SPECIMENOrdering Facility: [facility] Address: [address] [place] [address] Performed By: #### 5 7021-8 ####[facility] [place] LABCLIA [id number] [place] [address] [place] Nucleated RBC (Bld) [#/Vol] Normal [facility] Comment on above: Order Comment: Speci men Type: BLOOD SPECIMENOrdering Facility: [facility] Address: [address] [place] [address] Performed By: #### 5 7021-8 ####[facility] [place] LABCLIA [id number] [place] [address] [place] [place] Nucleated RBC/100 WBC (Bld) [Ratio] Normal [facility] Comment on above: Order Comment: Speci men Type: BLOOD SPECIMENOrdering Facility: [facility] Address: [address] [place] [address] Performed By: #### 5 7021-8 ####[facility] [place] LABCLIA [id number] [place] [address] [place] Platelet mean volume (Bld) [Entitic vol] 11.1 fL Normal 9.0-12.7 [facility] Comment on above: Order Comment: Speci men Type: BLOOD SPECIMENOrdering Facility: [facility] Address: [address] [place], [place] [id number] Performed By: #### 5 7021-8 ####[facility] [place] LABCLIA [id number] [place] [address] [facility] [place] Platelets (Bld) [#/Vol] 119 10*3/uL Low 150-400 [facility] Comment on above: Order Comment: Speci men Type: BLOOD SPECIMENOrdering Facility: [facility] Address: [address] [place] [address] Performed By: #### 5 7021-8 ####[facility] LAB[facility] [id number] [place] [address] [facility] RBC (Bld) [#/Vol] 2.50 10*6/uL Low 4.20-6.00 [facility] Comment on above: Order Comment: Speci men Type: BLOOD SPECIMENOrdering Facility: [facility] Address: [address] [place] [address] Performed By: #### 5 7021-8 ####[facility] LABCLIA [id number] [place] [address] [facility] [place] WBC (Bld) [#/Vol] 6.77 10*3/uL Normal 3.70-11.00 [facility] Comment on above: Order Comment: Speci men Type: BLOOD SPECIMENOrdering Facility: [facility] Address: [address] [place] [address] Performed By: #### 5 7021-8 ####[facility] LABCLIA [id number] [place] [address] [facility] TYPE + SCREENon 08-04-2024 ABO B Normal [facility] Comment on above: Order Comment: Speci men Type: BLOOD SPECIMENOrdering Facility: [facility] Address: [address] [place], [place] [id number] Performed By: #### T SCR ####[facility] BLOOD BANKCLIA [id number] [place] [id number] [facility] Rh Nom (Bld) Positive Normal [facility] Comment on above: Order Comment: Speci men Type: BLOOD SPECIMENOrdering Facility: [facility] Address: [address] [place] [address] Performed By: #### T SCR ####[facility] BLOOD BANKCLIA [id number] [place] [id number] [facility] TYPE AND SCREEN EXPIRATION 08/07/2024 23:59 Normal [facility] Comment on above: Order Comment: Speci men Type: BLOOD SPECIMENOrdering Facility: [facility] Address: [address] [place] [address] Performed By: #### T SCR ####[facility] BLOOD BANKCLIA [id number] [place] [phone] [facility] BONE MARROW ANALYSISOrdered By: Carla Storm on 07-31-2024 Addendum z2kqgEMvPCMumWZdYCWq NlxhbnN jLXSnmXBrC0LyjwmrVRuzKR0zAY 0ziCcxgTFhbOEdSHNzNoPxe2viv 703xLKjg4hjRKRXrnukcIy7yCku L01nv3Q4SlsvA01kjVHxLLS5HIA rHBWpbEHaSRJdZOK1WHWldUOwG1 cxZAIyMV0qldkzLVryRTtvBLRpf WL1HOZqvZDqQ4FaFNBdNFvyTXQq rbi4QzDcGy9gmPZphYlbEOwfJVW kXHBsYWluXGZzMjAgUGVyIHJlcG 2ksBEgvn4dYROGJgMcESogRUZpe MSon5aaDQ7NQpWjZQ7kkkC0hnQ1 MNC4UJBkoaKSRFTJRDVsV6AMMKW HKBMPLMYgAD98mjBTJSHdM2JuMY IUtCVeuttgK3mhkxboZRpkP0zkl mlmaWNhbmNlIFBvdGVudGlhbCBD aYndpCJfsJANtWfbyUOmB1GgS7P xMEAOCQIwtE3YPEs0FumnBn3aMG AzNjIwLjMsIGMuMTQzNEM+QSBWQ EB6ZPQ2EGOKTJgXTKLGZHJGTnUD Qs2UOFnHIeU2NR61BMPoBG5kEQY zEHbzIUdgaJfnQAHjpPC2e4I0BW 3zVL5pL0GyY1h6aOSoPZ2zoTbbA SKvJNR6gPQgwYCnS0t4e1Niqbcc FJBgzK3kSNE1REq7VJKlUZSzw1C ayA7uw7qnfSVbtSownL0vzUSkmN McdIkzZUA2zxEjt16lMlNQu44kA U7pxvLaleLwyI8bcT8epmXjQ5Co EG9uMQB7VIFzFG4eiVIpUGL8UFB deU92AE2boq7uH2HazTMsGORzjJ Qigr41CZzmqAyqQZzbSYP0mTsxb 9LdcXWldRFdeB7nqJEaiL4bJSHe vtpnu8ooDTNbBjhad0TyQHHfUAU neElnMK9bP6WvDSY8o6Q9vDXeAL J5wMcnDyARFQU9r5I2vFboVrIux eGsk0VvSTpbUIRikI5sPK2UXaXx DI2zlUKgsbIkn05eDV7xxiLflnT ptkFKnQKirTGxYGNjSRoeZR47fP CcTMSldXieQPQxwEdpa0hcHxQyv DpudDRpsXr6AIAsW57jFocyGR14 BADycsmesyI3ZEUAQCTQKDUoDuH 7KUsfPSHtDMF5YxSZZjZeHDWGCi ogMzguMyUpLiBJTlRFUlBSRVRBV CiFLePVSI2QHOROSWZueZPpxxFf mrckTI0qiSrolMApo0zle5OuoEs dUOBqWSNgu8XydUtwjPDxkaFuVb jfYZC1WQHvGQ30HW8yNDZwcH2vE 4TrTDZqY31eYddkCF7iFSDdfjBQ RP3fMC2bULkhJUKhknGgbsxdIXp wFGyuYCIrTKXcCREulrQdYU8fJK GbFyVtCXFmhBZ0AR05HIFne03ga CGoBC8taJ6mk4kwh5ecDjOUmLC0 wK1xnExexeDcPGK9NIHfBRBso83 jpUUxJU0exJ3yd2vwa0apEVGea9 4lgGY0NMJwg4s7jKJrkWNbs1ijQ I7fs8GpLXLoFRPxSEPndD4uBVlo dZLgNWSpgG8yFRJqxoM4uJCwt9L 0SA99YQM4BM30CMmxjOVekqDpqX yui20rNFSLVOPcEDCPLRPbTDCMW VMpIHJlcXVpcmVzIGNvcnJlbGF0 eG0hDSompOkfyWzoYGXvgA7hE0Y eHFfub7FirdspPP7waoZkcfLkt2 KcdC9sa6v6BUGgLDJeeKIpG6HtC BQnZ6GaIEZJULK5TUV1PVI3GRSd ZK9iFYZ2WWHkh41jTScmNPPFLPW MGCLiVXRmc1CoO7otfLTnZYlytJ bqoMCok5GfKTvul1Y9mrRnpH8oA P2UILYibJGxgC6eKOEqKN06ihzw BU0cDCHzWRGuliLcUU49WLspJGC plYtgnFOqIBEbEA24ZIkfFO6bES Fbn0EdDV1vILXdBPEhdBmcetQyB CJpKMXgfEYzo2meHH0sl5ZkFMYb qxAnAK2VHKpwNzKqOQj5TaCyMvT lPTNjYMEii1SikXFol2pevSigRC JlIGludGVycHJldGVkIGluIHRoZ NOfv949EGh8MZ1zNEOlKZVcrDtq bYWvzWQgcyFojGK9fO0hb1lmK1N uDPAqhpTiqhanSFHpsvHmrY6bkM SoxnGrsZC8nO5pXonnWGIktUVwT SCmIGNxfL0wtV2wfuNmkfXmH96a m4uuuUDdnZF1qEMtBXJ4ZHquJMW 4KQWmn50dxRNbiIPmtKYmeAFsz8 OywM1lZGFehz9jnhYaQQQvO24cL wpkYD2tFWWkoXXfx9XhwYBpzsWm jKT7kQ2eIYCkbkVhrIBpvJCnxDV gaXMgbGltaXRlZCBpbiBhIHBvc3 FfgHQgZUPoRQ36MBMtggTqxTXci w04YsGDDBTekR5vxhKcY6dvjgwh YWlzM42dvaAsMNJhu65zGFKgcpK JGTYcHDFzlrDkxVd8KSOqmMcmXD WhwS1qzYFxpM8aYTYcjhkdlIFiJ YxqSylvw7Yyr52hPPNcTTJudHrk JZJyZUCnqP4xr5nhBYvrz99cy3H yjE5qMQXvVZIukA32ly3vwTI2s7 QvXB8wW4DjARH2MYbbbzZyl0KeW 0QzLCBDRDIwLCBDRDEzOCBhbmQg m0UarQAxoQQbXqMyWVOPP1gcw8K pQFJiwY23skVxjRHYE2WdaGJuKA XscTB9pJ4qi5k6PSEauqEykfJ6p pFru97eVBCpmfZxPGCtZWA7QXcz jRL0jQ8il5z2PK8hZBElCi0tEHM 3dDNxYXFjxkKzciJ6kzFhylC3wY ZjFZhvO78mx0zqMXcJiu5dX32ix ywgRHIuIEJoYXZzYXIpLlxwYXJ9 [facility] Work Phone: Case Report Bone Marrow Patholog y Report Case: [id number] Authorizing Provider: Alka Noriega MD Collected: 07/21/2024 12:28 PM Ordering Location: [facility] Hematology/Oncology Received: 07/21/2024 01:43 PM Pathologist: Carla Storm MD Specimens: A) - Bone Marrow, Aspirate, Left, Posterior, Iliac Crest B) - Bone Marrow, Biopsy, Left, Posterior, Iliac Crest C) - Bone Marrow, Clot, Left, Posterior, Iliac Crest [facility] Work Phone: Clinical History m5kmjBDeJWFpqPEqTBCv NlxhbnN rOOBijDQzX7CsegdkWLocSO4rZJ 6grJoasYOyfIWtXYUlEuDcj4yrn 811qCRuj9leLXZUnssnxYo4fLcx M14xb0X8FrpaT6mzSGXiDQcmZFB rMEhloQFrWJl8ALPxqQBfocJyNd ByGOIyfUOuyXR3QACaVN8mvzccD WkfVDwdZLWxuqV1BECjcPZdP3Ch ZRMgBL8resbhNXT3AWdrJHTpJYL 0OuAcLRKlx4Tpwfc5ApPjfVNaEY xwbGFpblxmczIwIDgxLXllYXItb 8lfZF3byKZmy1k8uNHeagNmnFGz TQAScSduwCZwyCS1EJdye5Stiwf kc5VsAEMqGQGVADVtq7r3fCNcnk PanUFqGN7jUFNoth4sPe0ogLUor QJthPVzLVEwoUBhoocgLtG7pjEo f1L3w4xbomLmnoApV8TvqgNdfPe 5YS0nEIQxCS3cSDI3oGHwuzTavi TwcqAgtP47gYqgGQF6ZeFmDwMaI u9dZVZhUEAgr6ssHvyOKCWinP9d o5DxBCEsZTIleCYrgEapxzXuxsF SPP3qAXPlJjfnOrZsNiLGQDInCo Yau4XlivQcQBppW3nyivrkLSvlx 3ucuyjzkDPiybMvBYNkFROvh9Cp GVvtL3g0p6qidnX1iWBwGyroNCM 9 [facility] Work Phone: Diagnosis Comment e4yvsMIaONRdxWRoLDCw NlxhbnN iSHXtdUHqH9HhqsheXVsgAJ0tED 6scPsdfBUzpAIuLREvIeJst9nrc 173fEJpe5vuWOJCjwzwjUl1sDqg B77tk9K8LxzhO12esTYwALO5SYD rZNCnwABwLYYjHGM5JMGerOMlJ4 hiIIIxOU9lyolmCTuhBJfhXFNsb MR6BOEozBCsQ0UeLHEpITwrXDKl wzu2RlSfUg5stOPhdHixRNxbVAK kXHBsYWluXGZzMjAgVGhlIHBhdG goplNngQXdZTPlqOwjcS0yhEBvF dDxs26oNT8vmmRdooCyvC3ok8jg j8o9rSIfgbg2zTHkiQSrOD4fFI6 kF4RtTFJ8o5K0pNVjVAX1tIvsZE QmJHFeTTNtwA4cR7AvEBWyIUaij 8NnzeNeXuZir9elY7HuCEHssSct fA0tqOXesVJchSwmJMO1ciHgh11 eNwYhZTcqSGU3zaFklkByKwjnaQ E5PHTeeM9wa9GeYLQlrvIjzEZjk pi6rQUkgR6kWMRdlqQcrdMjEYOe SXKnAHEpODEihjVnjdv4fBTytQF iHmIySMJvoG7ltFGlLECxsjv9tX JvaWRzIGNvbnRpbnVlIHRvIGRlb I1ky8XvYHBpJIM2aN3ieVXotXjv HTIrQ4IqkDKbJItbpKMkPKUmkEI xUOJyQFSpk5PglAGvbRd8iCVyf6 RvKTBfTVBnnCOzCP5ecU6iZNOfL 41jlEReBTRyi2WhPMpqvHqrnuX3 aXRoIHNlcnVtIGNvcHBlciBsZXZ ogGVoMPCOORJ4PLApqUazEPxhlC nsoE3zCQ0hictfTpekZQ9viyMxo 5pwU4ycYMVty3AfdRWpbxHyl0c9 sUnjeBSsfLzof95uBTLotMqzNKP rOMZcawHwGWBcCLErTCO7KGzbHU KdVDYvuo4vCAqpZMgeN6RnJAPlV E3cWAdkCRJdQzieibCpuSJmrEP2 jzgzHTI4CQR4VHJvJTRolVLfxIL ax6E5vRQ0aP5mZK1mENGugAncQ2 thicNkORCIGZXaTBzmiSp1HSpiW 3EeZZAbTOimqJo0JBDitYFzzUUL IGNlbGxzIGFzIHdlbGwgYXMgYSB upWT3kO2ppTLaj8R3uPX1eB0mIC 7dRHQrQ6UzvWLuy7x0aDSxn5J6K MIoRQSBSkPlLKsoqlKaj4bppu3z VWKgXImxfKGkl4M9FVrsTHCbllL TJYDwYAXhILTms6XdJRS4BOG4FC Wqt2qynvdzoLPselQriX7emsOhh 0IvyT9il59tySziKfDuHMbqps6k VPMgEGkekLWup2E6SBroBRHsbeF RAIVvgEsqiJukF6p6HNZhKZSukK qwUAkgY1AyIZYwPZunGBzohPUdd 3RpdGlhbCBUIGNlbGxzIGFsdGhv uNnkGKOzFVAeTEhdLE5yMDNtjli wjHOtFWrdBanmt3QijKiyaZetA6 r4i0Dusb3kIIHmO60caLYySCOhb WsvaOGxiVLmc8UxXSyqqKpkwgTc onZkJx6kqR64AEYfOpVvRnTlh25 uKU7zQZSllqGpqKG8dH3cJMlooO jmfEUnCSkoKqQbgVGfa9wgWS5CU s0nfBQfFDEnErNUqiYyHRqgP4Ei GjXvGBFegahrw9IwJNEpLJRrQMQ iSSZdKNNlG1ZiGXQvs5y7lDJ6tW PxTXgrC89lw4beNlqqDQN1 [facility] Work Phone: Disclaimer a0rnlJHkCXGvf9keWNCd bGFuZzE wMzNcZnRuYmpcdWMxIHtccnRmMV uorRoxRALrYURly8omz4wqmIAsP YPnl3swp2ZwgJIeqFXuYRpjpUSt ctUnda85sRA9zO90DV5mQOHeGlS 7SPDideK7Kpy7ZZBcZNJrhQHjH2 79v2mud2cycjLjxGV3KMJoOTXfN 3IpWT7oOTTgtPQyF03lyKYjNJL2 IXLjNYVpaVGxAEJcUXZ6FBRpkYR nW0aoJYJtVZ1idiqjWExgCEjdAG VjfKL3ETOyeXMbP6KyXZUkDEckP GCjted9DwWxRl0mlRJpkAscIYzf U8ktjP1vZtC1IMmwZ3ztmQ9oFRw 5IAhsQZXivDN1prL9EVUfjQDiQ1 XnlK7sFLEgIP9qcwb2n3ytYDJ4R TbbTQJzDmU4zvX2MFBkhGTyXMmd qXHoixnaBRToADRjK3TdTSqhRy1 sNEQcpxdhDYY8RGoxjSDjITEkf5 KpTBhKIZfpTCkgF7arbK7ztzsip FDkXFJnVMQgSEKHLZTqa2QjTK1x PWSjtBYjVOH7XOQgx8McH1Idf8U dcU4lzL3ntHfzwX7vcZUrvVRnqY hveQ7kbI1fFzs4v2Rle4JkolLxH NGaHJVjrQGvrV9cMO9nCiSfcr8i rMQ4LKf3PjJhKIk6UEVci72eeAE qeZVlzXZ2JNFdBMAdXMKolJKgnA jdJZRlMzwhkYvpBFYqrjUgaq9qs hlzgMCyf4CssE5ovWF5oNDvdB2k J5irvrXyWD0hCPGqcL9gLxoeXLS sYoSkcZEVTzOJp32duOXwZQJwzL wmcH9riDVqkaQnVSRbe8NxxQ6bk DWTOQSrI7srMOYDEIUfqbEhAZ46 SDgXVMgvHIGpoIG7clLSm2JvzRI vaGceHMjup14pQ8UsLQHorZYXj0 AhpUUaiYauPnoobrhmGNSFXAD6g 25zHI7mnHd3BZlfUS7xmcW5DTvb w9HphITvCAMXleLuXX2bQtk8MWA sDWAozUPpeOJKGR52DKVpRR0wpb IcooEDNHJttAfeLw7glUavBX6oz Pm2CNmiXI4zAEMmdP6jNOljp6Fk sTWcBQQarkSzVM8ivk1kotWpd33 nnOM7MP10UNsggSmeD5rAMVDtXJ W2kSRwhISlwMVtRS5cRBAhyvFhh 0FhJP6yTUBzVUWmATPat1EvEC3h kIBya7MfvKL5OOSoFQLdABWiDQB rLIKhz7HmPZBdmk50XAPdPcakgM qgHQVNDI1jYuMsTHmSCOsaUQYnH 4GuMRNqWYN3xvLairYRSDkJVTXq QJQ7ACerXanwPCW3qiQmGGGue8X sQNdxB3rsI38ujSofoKf1wSB7BK V8rD3tBlIDwSWbOMH4ZCM4wuVvd jRwdEDaHRDjm8PbT7ttftooWRyi vIMfjQ6tFHPfHRBcQREpQHWuh7J fRVRqd2KfAwWxokCcGIUmLWPaJK ObiS84EZR2kRbzvYacpkImPM9fD MUykjAnXEKhNTLlqN3jDN2wuGFy liHfZN5gYS7oC2I1pXVgUVLqokR gg4ogJUL8THjdXSKadJUwvTZgMX IxbXfiROXtlh82 [facility] Work Phone: FINAL DIAGNOSIS y9efwSWwPBJcdFFaTCSw NlxhbnN iOGDjeJQhS0ErgizxMPdoTD0hYI 5qmJmnuNXzqCRuJLNvXnHys4qba 539wUEif7wmCFEUkbeglNl8uDtb L46nj3C8CazjA33wuRZwCZE4HVN dLGTrvBQoUGTaPSP4JFIsoVWeH6 yrPVOhZV5uwlsxRItsEHlrQCSva QL6GPVtyTHtL5QgAHIuIWxzEFLf zek3YlEsSi1vwBKeoYvxHXnuAUC kXHBsYWluXGZzMjAgQSwgQiwgYW 9cXZYeSORLt34wZO4ohfKjlvumU VZepHAmlSBbGNSql4JymCcmW2nr dCBwcmVwYXJhdGlvbiBhbmQgcGV yaXBoZXJhbCBzbWVhcjpccGFyXG ArDFUuxYUiVf7odO5rLQdzwHuzj rIgQVWhc2bcr9e0rEM1llbbqW8n QGhuHMijfYR1i3YlgLXjnMDyPGI oY3TsIKDpTFYrkkl8xUBhvGYlFA tizZcmCAzwEIR2bFaua2YmcWWao VVviY8hnRSjaY3jGLNdzilxv8sh RTVfYpbew8ViASAmavZleEdaVBX nGTagt2LuzN4jfHWlBOE2lWDfBG 1gcTMfLFByIVPkmYBuB28beAknr H9poNezzQwkefKmUlXgcI0sLOrv G3P4QG6xG4H7qNOpCBZZKAJpFX8 yG2G1zTTmKGAuJ6BlfBUnBFQ3WM H1TAIsBwkvAurwtsBuuQLswNI4o utjKZGfhkmegoZvp5ibIBYjNOqx OCYuf1WwxgC8CBQlqMJtBBKyr70 fj0GrQ4G2LCJwh3w2xYShZAYIPV P7A8PMHZLvCWWkYLtmqaPgBTAyY 9YbBHNhrQWmrA97ZRA1hZ3lBOJb jX7xFLSbXRIeHJNpreZdWtBfp3o pYQPypijxwbTzv5pfQO2afFXkiY DdheZfQKVbRBFobQ7maEP0nNcvL FPaEXDcSTDjBTjfdc4quRAaRDOg AEIzzLSgIZ5tvyCdk5FgAVN2CBg aHCDpVKRmrs9kBwafOYGxAH6nDY NoICBNaWxkIChNRiAxKSByZXRpY 3SnlN6mWsytiw0eeSFcBOPyruir seMjx1xvGPRnbsmkiHVlSIzwXcz bd8Nryy9zqG8jfLSwYjQfhlHbcA VuJX4kMGKbrh4fCz8tkCZmhCPqt WEuXHBhcn0= [facility] Work Phone: Gross Description z2mqlWGpWAZfqSZDVCZj MDNcYW5 xhIwjsUb1kWotCIUwikF6zGPhYR stk3vkKMG5v1xajySQLhbbRDBcP Q1kSVlaFSXvKE3lIaDrDECnEqCn XHBhcGVydzEyMjQwXHBhcGVyaDE 3CGMpDY5aulaxMFsbEUrbXKHfil V2CVEobOAqZ0KlWLRzCW2hntdbF AZ6LHKEOwrfWi1jrXKwoShiJpMj RuUiBAGvJKPmYXGwd0oljcPKwnr djHc6iT2TRIPfA6LyNM3Hl9srAU DeiKHkSDE7JZzxh6soOJudBXZ1U SPzRLJbPWHtJZ0XCvTeIPa7DSW2 JCz9YyD6POs7UTKASCSpUBW6Ncn 7RAwkOLd1DAqqMUrjcSGzCOWxKS DaMEMpPQbsrsW9y6vtZIUboRLfU DB0HOrjk2lrYCztHZF2PHNoWlFx BDSoRC1ZKbElPHw0WOW1LJv1DuE 7VHf7OYAKBeKfKlMvEgWxInbrBj qrNOa4BTg2TWfGPhRzMVlmRJB3C wZ5XPF1KUU9LKAlWLQbMzMwBZAi QADnHYhoeKQpDL0usUslOGYzIU1 KYBGrKNxuBNGqYsBlXQ1rFt7cHU FUNTFxb7bmJTRlwDnrTRBuRZGWG RM2YFVLg6N2ZEWdv0ZuLQxyjTSw EBBaIIS3KEm6isGaTZDtCnEufGA pQW1FIIZyhmVqBDohhQmtyR9hlO YhZ6ujEuIsAxhnwVxjGpHipNIjP mQtQBpriFOcxITeCP7YOEIfZlPr RqEsHPj5VUZzUPQkABYdou6likp rRQYju56pJH0evnSpxpCgz7Qeam R9EJKnwLAfglKuQXD4Pg8fvZQmF NDmw3DtfTahdPWsyQhsbi1zK70p eC7mqDBpYA6EJIHsJaHjRYIyI4d aDWFdQJ4TMQCvdSQHAGH8CI9pCY yeVDMaC6ZfO4BzvmC8JIDlkvZHY coeQviofJsds7LpuIWpNAZjATwu aWQgNTEwMDIgXFxkYiBPVlIgIiA 4LGP9FcI5OrKzMWz1UOscR6TXLW DoFIbrHKeiScQdCwW9UMf6UCGHX i6jQOP8FRxxENE7KVZsVMQrMajr KQe8SRZgGNmuylAsEQwgBfssJOj zQ59stZQiUAgcLsVbBXvhfNjcOD XzFRR4JB5RHk4qEd4lAGYNFKDwj 8usEJSeh1GldQgsGFFwfQjaZC3j ePCaeL2cAAJWuOksVbGItcGhuEt uhkNsNHBvhsDUKhqrKUOaOJ3AIL VoSFipYHb7icDbRWDrDrFyJNUcC 93io1GZj6PpUA8KDHw1jsSdkkcj IhHhCVSbuTRCp1HlOZnlHBZcXCY aiMRNu2TbNZXRSgRtJ9KkivBjLU jzWENtku3mwDyrWQwoJnMoQMGyM PFeFaBitqQmuVTbvz43WXSfa0So dHOeSFM6NGPgf1XfmdtfpyKncSw hYyBjcmVzdCIgaXMgYSBjeWxpbm BagMHrvTBtLPsgZN52DG6oMJHmz gZaaZJtr7GvlF7mRJBpVbR2JOCv OzH9RQTnBtPqlF6fPUJfPURueJM xkT5lebMjyhR2v7AreBd8XSB4Xg 3ivCOuMKRdyfPmijPgG0Eys3N5p EArFGWfgWmbz4qeTlBhzZvdaYVx INOrxWRuApabCUHfs29iRDprPGK tH90oh0MYt7Fxj1kyaPgfm1GtnV ObHE2fzMOxLX0Jc6xlYQOtgAArZ MT8SRltv8erKLhwHCA9DISdTcQs ESRhCV3IHmRqDEl4KHR8YUy1GdL 9LBn4VTYXBzAkMsAvHuLmDKA7Qa pqYMk6ETp2BYfIKwQyVZoaXQN0N ZdcCWH3LLF6CDHjHBSbMgPcVGAt VBXuRVjzyHMwCM1hdQnaUPKpIXE nFEG9IBJqwXBKm2OvLXDqDTreTf WaDZHYKzNWh64bOI5nvtIhuycqN 7rrqGlyFQOziKoaZY6muTUvdN3q LCBJbGlhYyBDcmVzdFxmczIyXHB iewQKIgbvYATfDX4BRJSgSGygOO l5kvDkQYWpAmIrBMViL80ny0EKv 5IjIC3QUYh9ilTfioqhFpDeXGYr kJMJi6LxZGFCNkDwT3DjmnDuTTi fTHYilq9dhNphTOtrOiUxXQKwVG FjUjYhamJqrZXuft92EJRbf7Bwu NOnhWOxw0M6YXYvy9RnfBjsSPZb U2Tjz8HwPYCcXIRvmMn7wZJcKIF oBGgxXP79njVeZwApMNGyUJZoAE CjUF0jeoKdTDymMxYfMPAxnLQsS HooCGnefeVeMKSrjibsbF3nSP5f EZvtDK2rORmpJK81TLZaUiWCf6O grUk8KNU7Yl8iwVVnMWVwmyKmei NbH3Sgt1X3sAUpZKPxgmUTKosiU LDePHo2xvGugyCAJmupJTYtCImx mAKlFV9SY6Hms8DqCIpufGflIPB ci75sxSTyXu1grAGdDXC8OJAbWM PhzWWmQQWCqHjzbKAmTAbzl63jX 1CkNZJfwVHYWJFmD3LdJDSgfeEb jlkjRZVDp3PjvnZJNO3cxeOtHHI 8QB39WIheJDetf29oIC9ORJQ9Kk Y1QRouPTMbOPdTIjvfAQJ0XDJ0P NSfBNH2AAY9IMfbYM7gtMUlIF1I DGDbMcDwRABeM1mhSLWiGV2UGNN ifTVBOUV2PT6yHGhkAXMmU3IfR9 JsfvE2q5cltYhux0MxxFGlKN4le CWgXK2XWGEpylUlCVpazAnfkO8z DQp9 [facility] Work Phone: Microscopic Description l8sosVZeEAKwwXEbDHPgSdocfsB aGTAipPZtB9QftbefHDiqMX7wZK 1wePjfcKKnlYXsZJMrDfBhj2zeh 936gYXrh5ouLNOJmscyuQx6uIuz L94ej1O5WfkdJ6dcARBwQLorR7Y dQA5iYDOdGtj2YMIiQEonfzCcRR uxlzEjmtChIrl2HXO8NRVpGDReG ntvwlMaxbPtTujktAMpHfR0E5lo ZWQxMFxncmVlbjEwMFxibHVlMTU 2M8bvVJRfCBTuV6LrBX5vPVWuAl z2NOB1DFwdzkGyDIa0KYwxMPVjG Tc9MSGqpMUrCIu2zHsmHMPbdyzg BxK2LXhnIIJujbruHVl9KBwwJCK dqUW2BVKutOPzA2KqEOEoJD9mcl l5SRW9NTjeXQUzAjA3JZFbbBRpZ BPquKqmDMcfz140ZBE7FxUoYUKm vlQzmPlofF9cStdzwfFtPCYONum NITGSPLgsFlzBX9C6KCrvJWJxuN Evb5UuxAUdxET8HGm1jnZtPOWwh DNcdHJwYWRkZmwzXHRycGFkZGwx MDVcdHJwYWRkZnIzXHRycGFkZHI oSFWjwKGcQJYhIoJpIMGpZ4FrZM QxXGNsYnJkcnRcYnJkcnNcYnJkc ncxMFxjbGJyZHJsXGJyZHJzXGJy FDA6DPIuY8ueleJltrkgabLnq0s icmRydzEwXGNsYnJkcmJcYnJkcn NcYnJkcncxMFxjbHZlcnRhbHRcY 4ibtZJJlFT3wZOhV5d5R1jvqPqh KhPjMKEcuNy4YyS5DYxlpLDnbTA 4QVrftBKdUEI9VAYmNCJlMMOwRB F1BWEdK6fwbtWdkFjstzPca1wub mRydzEwXGNsYnJkcnJcYnJkcnNc YnJkcncxMFxjbGJyZHJiXGJyZHJ gMTSnMFX0FIVgR5m7WFK1XYw5QF BmOgOlJ2rhgYlfQCQqp8jhRPKbP tA2DProFQwxyCCmJBKxxUUtLYdt nfCquIwlL5k4sSKadZtcVWPkC2R mWOEABwMlXIZop2WnD9W5XZVyRK uol7dfSDBuISyrg7ReMUiHEUCTZ W0AQZ7azUG9QBuLP3MDS1hCgRGp ZoVbSIKqHHO8IEgHUTBSOPvIAQJ LqLNaCEN4CTBhYXcnvHgxmPc8c6 dggIGxr7y4BIvxEAJ5vLSnKzgbX jAyNSAxMTozMCBBTXtcZmllbGR7 KZpuUmnnzQ5anOVJXHGLFwbHMzk lvwWtYV9DFM4VQC1CfBEvSeCoTO BdRTM3KRaIBHKTLMtUXUTCrNRdM VA3FQAjBZcaqOtltQw5s0ikfXIm n6k1DXabCCE4vAferAEedpmaCFU jSwRhZ1LqERwvC7LgeYjpCYCgEY gwxUXcQIYyRLmbMND5jJInynDCl WZmOiBccHJvdGVjdHtcZmllbGR7 RXpdLozawC7slZNSWKDBDkeEXvk wglYlQP5PMB6RMtDTBY97ARZsEx R8QQNoHWjuuCpAWqFBOSQHGiR2C OGdWan2AfE2SRM1zEZ4cZ40DXAz FKRpsGNfMUmhV876UXH6b4uyRgy trJM2HObuAbdshM1abSNAXNOOOs bLDoqsetEsFZ9IUK8CMP6IkJHcG bToAWTjODG5CfsQPAJEHQtDOPBQ wFVcTBZ0XHMpPKnojOpjuRt7l5u crROdn5g3ZLarTSX0aJcwjDZxga evQTDgErIkR8KuBYYeoOrknY79F qybdn14LDJjo0mcBVQyn6JqbUl4 cnBhZGRmdDNcdHJwYWRkZmwzXHR ycGFkZGwxMDVcdHJwYWRkZnIzXH RycGFkZHIxMDVcdHJwYWRkZmIzX GNsYnJkcnRcYnJkcnNcYnJkcncx MFxjbGJyZHJsXGJyZHJzXGJyZHJ 7WVKaK8cxwrFzxzdbxcLzw4vzdj RydzEwXGNsYnJkcmJcYnJkcnNcY tMwmzpwAPnycKLlsjPqeDIzV8wc uEGCaIU1zUQnP1c6W5hcgRlwXeJ uYNLmfQg5YKNqZAhfoBXuOHF7FQ BhTDHbZNWaRYH1XTUhM5lcotTmj FhwvxWmt2bysyDragFwJEMhPdAt cnJcYnJkcnNcYnJkcncxMFxjbGJ fSMXuYDIbWWOmVQWvGQW9NPIlS1 j5VOA2RNs5JLNcZbMmN4lbkXtmG DTcs8duXDLbFDMfLSnfDRziiGUy KCJfI0huevQuxAqbcqFrm4smezU ydzEwXGNsYnJkcmxcYnJkcnNcYn JkcncxMFxjbGJyZHJyXGJyZHJzX AZiPSM4RLDpR3tlfdJsRppnghXr k6dlwjLzznAxVDWacdAgzZQqkUz dtMK7c0drZYFaB4ymvQeDhUX0vD O2RdBqE2ScmHe0CaoyQKFdRuEhg nRcYnJkcnNcYnJkcncxMFxjbGJy TQTyZPBmWEYmFQLwFHW5LXWpV8b kigMvkunqmiRqd3bzoaMeqrJrMQ NsYnJkcmJcYnJkcnNcYnJkcncxM FywrUFvwzTfuLYiM6slpMFSiEW3 hAQsP7h7F5jtiZvwDHMsVJZrrOv 4NjMwMFxwYXJkXGludGJsXHdpZG D5pNQjvnppFVvjRwKuoGSppXGxj CxiLmoicEP9MDmdRoldfT6puTCS OVBHThcLMwglzsCjNI8TEB1EDtI UAN77LHLtUMr3X2oTXYBHU24DGM 9FV9lqAuIjvVtSHqzUH32IYhHGP KlbQDexgAgtsOf1q1hzhZOce8j2 OCjsEON7wOeZM1ayNgkbzLT5EMu aLxlbmE1chNVYIGAXCicPZpviwl VlZI2NKM6JOC5OvFJsPSA0tIX4U TBFO05VYHoEWf57BHFuTshGInUq E12YHY9DUFHoXGwiITq3GTq8sWm lJxitjgBfbWZwBnRrdK4owDppyI 9tUqEfUWsaMcYqY8EbmIknVVGzS MxrpQFeWZmoSAD8uUJcscjxJcLh nDJraFNeoEleRhglcTM3OWtvCbh amT3knQRBBLFOEosLBswowiPpOQ 0SVO1AYmBPAP36ZZGjVKj1CJuVM FBMY99MVY3XJ9igRoWrvLtMDrtM UDlIEHcnTThhiPyaqXd7k6cszDR to4v8RPueQWF4lDRdHbU4JIPgJE zgs6qlOQWaBBnxf6HzCMkABNWCK K1UTB2bhOX1JYuUJ9XSUTz1EIMj JYl9fQfXEeYELUQECkUStVRlHQZ 3E5CYQXKMAGBQZQGkOOJ9cHI1wT 20NMRoYGSkjQJnHHjeO903EAHrQ AhpCGOmWwXnM5OeNIGurBDzlVAr vIykSyU5ZDGqJFbes0kbZMSlBGn fm5LnOJtIHINWEB8QRS2uxCV9RU yAK0QCK4vRfBQdQUW4eNG2SLTKO 36CTXlDZj50MHZrJmnGEfCyGB9F VGdrVKhyuEojsMu6g0wxtHUek3t 4DIegPHX8eKpnxJl1ZDTzINfsb3 oaIPWsIEugb1QfVAqGSKWRMM2IH T4rzTO5QQeMU1NOZSu8THNfGTz9 dHnXHsAXLPPKImUMwWFqAVB4C9E XHYDUTWSxDYsrNVe1VPl7qKkuFa pjuqWaoTQbDtUfwX7ubVgpyE6gN rAaAEzcNvBiV3TejKunAVMyIYwq dMZrNSrvWRD6oYTvednxXtZlcNJ etQLygOtsEriobGT9BXojLmcpmP 0alUXKNYIGZagILmbxqjFyKB6BP I7BVpWUHX84ITSbCAq3BgsVNXKH S73ZVN1OG8gmQqCxaL9QCIMrVVQ QBSBUNR1UBPGiOTQ2sFO1gR56WQ OwATWbkMVeIOsuQ464OwI9dIAvv BskeOLfOEovEfugqBR3XRxrWhjy lV0exAPFRHLBDyqCAelrowOfTV5 HLI5MLT6SySVwMZC9rET3TWUHO9 1YSRqTRb24LYWsLgvVDGPUYBkKD 49JPjFWHBotKVicmOnrjMv0b3nm tCOtl8l7NJenPOV9lWvztKDkpba mczIwXGNmMlxjZWxsXHBhcmRcaW 40EcrmW2XxABQlm4HxI5S5QLYyD Drjq6sgWCChITcgg4FvQNzMTLNY OQ7IWH4drPZ6ODoME9HCQ2jXaWP ePfVlUQYlYTN2K4iIXEEVDJkGNX VHyEXlGBF1ICIlVASewLjkbTo6h 9jcaUPfd8u2RLdkOFP2yOG6RfB0 BCOyWZbui9vkLLUwTQwbb3AtRHa DDSIXHA2ZJT6tsZO7BTvND1JBAR rdWwN5NPYyVsChnRn7QAEDWoDAK JSUNzoiZhVkpGalUcb2Wsn1BDs6 rYcsStgnrhMwvRAkNwOijN1shWb bcZ4iDhSaPLydJcFtE4PsaPkebl UjfSjin8djlGAxi1XahXQgBUUqC xDkYYMmgYVuMXYoQ5j9ntVgLNBh DEN8ZKNyxVBoWMRyF9g9spRvATV nJSK9QMAquJNpXSSyL8hjiZLrUF O3FXTbRRMnJCAhDKG9XPEsM1dnf eXkeVqzbnPew3jibaCrwaVxUDDb YnJkcnJcYnJkcnNcYnJkcncxMFx qgODlBKUjLPItMJYdSBOwAMN2SP FjP5g1CFM4UTe1JMMvCoXzH2iht JhtGWQep8dhJGWpFROlXKbnVEze hBS0SmHoG7yzwhEufMqwgqOgp1m icmRydzEwXGNsYnJkcmxcYnJkcn NcYnJkcncxMFxjbGJyZHJyXGJyZ DIkBFOnQYA9LJEhS9vcvmKdWcda qsEmm8jlzqZkkgEkNDGsrzUtiDU vrQakcPW1u9iiFJXaT5vszPaUdR T9pZU0KyTdQ1CyrJdrTcZtQAPkU nJkcnRcYnJkcnNcYnJkcncxMFxj dVDwLBQhBUJmHZNtPGNuEZD9NGQ mP9fvzhWuljfiusJvr6bjbyXuec EwXGNsYnJkcmJcYnJkcnNcYnJkc bjfJBaglBGwswLgbDStC2hpcHNM mFU6jDCaY4t2H9qhmEhnMWLvRIH wiJt8VSc3QBjqqPOmGQJ2XHKfVB ViIMRmHUO9ABQoR1adncBneFnsq gKoi9bmjxTnafPiNKXzWlNrxbDi YnJkcnNcYnJkcncxMFxjbGJyZHJ sVOZoFAJzLQUjWYL3XBIjZ7s2QC C9MCp7QTVmEtDbY9cptQjgTKCfj 1dpZHRoMTUzMFxjZWxseDYzMDBc nYGwFQwiqoUheWb0bYOqeRtoEOI rO6CfJUDbw2DxY8H2NECpAXtdi8 lhSWCwXKqlz8AnGDcSBBJBPF8UV S6irHS7EFgWN7DSB3nEgNKgRHL5 yYv2BGFJD84JEChNYr59CRErDes JBE0TG2tTGotGRLZOOFUFSC3BYI LePYF3tGP1qN96VXJiQOThuJHtK NttK942RQJas0rcc5HfgcuaWehi pTT9UFhvAikkqI1qkHROFQRYMrp FEdapnxVkSX9ZYI3DQR6UqEOsEV M4vOr3OGNXR66HWEeLJu06CWMfS kpDCE7TH8yOSzsFHGSDTWYMFG5U EGImVSM8fQK5pN64XIXkLPKguEY wZLuuC362TRMpRGxoKZWiRbZqE6 OhTKNhoXiihVBhKDgxtbJmaZe2u MYpuBcnJCPjA3WsVJUsw6WoE7S4 WXRwMQbvl7cgDDLuCCblf3GmQHy DZATTCG1NNV2luFQ6TKtPH6YJS6 pQpZCrIBM8wFz8HCXCO34PCHaKR j13NWLfNknNNU6MG4pCGxrZKZOG XTGBTHMjQUG7zVF6uB77PVVfDCU pmBPxCHmeG741Tz81u4lylZSiRL kfBbpavVMptaP1POnNUFFHTArQG iNePZ6qRCpBAusLUqN3UHTeGXk5 AKkSTPRFY67REM5CI1jsZvMkpGw HIV2PPX0JAC8mFxOGCNLoDUaqQU m7BQs1iHxgDikpdbFocJOwSgXib V3cvCkcaZ2yOdHcMBatFvQeGQji yq14NYN1GVVoNMwwDplqvKO0LEy hIhdyqE9cgFXILQARAcsMQcxpfo JgWD8IVM3ITgTRPX90YBVlESu5E CG0MYZFU88TYUfNWz07NPDkJquP KI6ZN1bWNygOCRGMPACzDHngNHl 8VQa3nWicMafunvAewVOnGhMdkJ 0nH4TJe3ffjCQfPMbaDxwkeRDgw kC7WJdUHSMFMViUGrRtVD6oAWaJ ItdBYmC4GPAdINp7BHK6XKJTP65 IPTuAUo13AJTgTlvXHM8VT0wQVs sMPMOXWQLeNVndWSe1NKk6oUcaG dltdkJteZMbJlYeaH4lwLnvnW3k FfKuULdfBiHyT9MhtVyvUBBvWXn wgOMqKPvhYYH8oMOcxfypHkJzfT PreESzmDwkOkxsqSC7ABueJcfus P4rrAAZDYVTKwiDGivnzeIjWJ1G CA1HMiUDJH00OJWwUFz7UWG7AOA OD98IWOsYEp09XVLdMblZKW0JVY QyN95VQX7QCQDsHJkvJEz6JFd5l DabIkujezGiaDWlUmJttY8YpK8z kU4rwGPugpNuw6xhqNHbJOrzEji gaBQaasE3JEyTKNTFIDlMMdUtCK 4jQXzWNrhURsC5GDIkHHw7DUK1P WGCB22KSLfILs16KMMmUfdIMM0Z QNXvK30VUN3YFJVvNKcjITl8RNy 4uJvpXsoilhBnqFKqGeKffP5hwD mliS8cEiAmFEfnZyMgZ0JwyNocE CXgYWdjzEScWYPgROoplz86WIR6 s9aiuXWgPRosKlvdbGRasqR7OIh CBOWKQPwPQmWcTM5oGOuFJvxFCA qPSskpHbA1ODHvHcJfgDRujAaSQ yDJSIPUFtM3JFIdBjz6XeM9UPW4 hPE2cM47MBEnOGQujNYnUSdrF81 7UIKyHVzwBcbvzJK8YXgaXgqftS 0cdPTYGUOVMqqSZmhxjeCvGN4NE Q4CJC3AcHUvPzPpYQBsMBQ8FSE1 TEFCUlVMRUVSUnwxMjAyfDgzMzg 9I8b2TZx9dGubNnoebqOdwXQqTa HbhJ3mlHfvrT4sOeKkKZzaGjDeU 0XgwHxomqMgeKose5jenXEab7Cz wEObBIGsStUiNMZpeUVlETUjP0c 7veYcVXVwRQI2TRDlnGOhZMOoF9 k7zrVsXQPuBFF2BJQrsTDhFTYhA 7ltbQExZWD7EMAyXJDfUDXeBFU5 FLZyI3jcvyWjnVecriLxn7xjrxQ ydzEwXGNsYnJkcnJcYnJkcnNcYn JkcncxMFxjbGJyZHJiXGJyZHJzX CUuSFL9WJCnT0n9CYY3KKy1HVZk MhWtS1berRlgWXBkf2tgZQSsZVZ wEPgcESutwCJ5IwTtJ1urdkKjcH iuviQen1elvxQgmyGpUUMqHeRxi mxcYnJkcnNcYnJkcncxMFxjbGJy VGLiQUZiIZEdTBIuPIG4VLYnG3i bpaHnEpfjvjSrh8wdexCenjCiQA SnapAvgQUtsZxzfQW8s1rhKBDyF 7gziFkRiTM7oTO6MnVgV0JusDiu MjQwXGNsYnJkcnRcYnJkcnNcYnJ kcncxMFxjbGJyZHJsXGJyZHJzXG NtKDN4KGFoV6lmwqHfhzprpeDsa 1xicmRydzEwXGNsYnJkcmJcYnJk cnNcYnJkcncxMFxjbHZlcnRhbHR yK7xoeWQLxDY8eGBkM2q3J7jicZ fsJKWcKHVqdFg7MPm6QBvcfJIaV VK6QFKoKZSgDNZqTOM8QZRnE1od heQbeFbdciYge5hbzcRebkBuLXR sYnJkcnJcYnJkcnNcYnJkcncxMF ccnZFgKRGwNZJfXTRaZDNaKBF8Q NGtL6v8FLW9PUw1FNKpRvPiW6hn qZqyUTEaa4zoGZMiEVDsGYnmQZj euZUyFNDuuXDaVOzyeyEmmQn6wV XifYrjVJSrM8GhNMNet5TnJ9N0C QFtGFnqk7qwNMXwVMvdv7IqVUaF AAQRHS6XDD1btTX8TVjXI0DEA5y HnVSbPTJ1eYCmePnXLoBHULHVSm QLbVUbYWM3JHDIALNIBGUNGW7AJ NReMAP0bEE9eI56RTWhPKYgoSPb WJkdK381LLCHd5ilkAHbKLjbYwy vvYRuphD3PKhSMVKKBBiRJlSjOU 0yHZaNTokINjE8JQLcYTe8ITP5D HYYX70ZACkCAg39IBNmQhmTW1Ya V77VIX2TSQFiNUvkHQz4JYa4eLd aUyjyhkQbyJUpGhYhgD6zcGtptP 6xAkTdROzsHcDaC4LhtMpaIHFeW VrceYIfRRfsKVA1oQCvrwziTsRp xQWwmOSzhTnjXuqbgID6BUwwQhd fvF5unILSXIECWtmSZlnprxFgAZ 8OTE4HUgGTUX56VJZvMYf0POH6Z SKNH94FEEfQZl32EAEfBpfOA2Di XuFMVMHwZEbeBCc4LXq1nMryZcd aydCclUQhMzOqyL73FL3tz1jwsJ KdVSxtOsmwbTComgC2WYeVEHDHF DuMYfOeKV4uGEhNVieIVnV6PDIq WVc3QHT5ETWFE22NVCxZIr89ACQ zLqtCP4AyQpWCKWUmSNesMIw1TA r0vQycNzjwqwQupSHvBeBchE2hq RjamC1eDbZiSRpvDrJhDQhnnx49 XHV3XFYqAWsxMwjkoCP2DSgjBqr sxI2fdJZKTZPXZdmPTecbqqAnBM 7HEA3WTuBHIG60JQJcVLu8AIZ3D JIWE40BTPyAKt43SIQtQtoMN9Qq HV5BRKbeSTeuvPneyWe7e2ldaTS go4x1CTxjLAK5sUDEk9fvqVVvKD ljMjhpiBFbgoI1WPyGVRGQRXeUQ eAzRL4pKXcOInbSZsI5OJErJIx5 GQX5KUSYH47ZZMiCEg55KSGwPgt CD4YuXC4MZUnwFAonaWvgpKu2k2 cliNYsz4z8PIesAJN4mWaiwQWpe lxmczIwXGNmMlxjZWxsXHBhcmRc dS38Trddq9woT5HnyGDdFHEcGBm nzr48GQB7a5jpfJVgQWnlFhjcsK RzpmY8YRaHIZYZHSqFJsVdYB2mA FyGEwrHDUnUJqc8SKAsJUuzCxfZ QIWDO05UUV7AE0odNsJwpY0RRb3 yGACLBIFSDG6BMNXrIIP0gQP0hK 84DROoQTYlbLEoDYxbB533XZ2fk 0D8pWNxBBL8UWXoTFcgy2vpXKEo NUzwi2ToVIrYHAEDXM4TBP2xgRO 2RIwLO7WOJWf7OXWjJKeyYujWQK QTC58RQT6FS1xnMxKudV9FRb1rO UBFYDAXVN8WACHyHYG6zME2cW59 VIRvZZNysAQlHSgaU188QHDlFLj zEGXoEpLmG2AxVHVxvYafmGBwAI xpbnRibFxjZjBccHJvdGVjdHtcZ ckikJC5PYprFfrkoP6cqUNMAPNM AjjSFymciuPaWI7YIC5ONyHTTF0 2DLKqGuU0EBBySSqnD7hKHSSPOJ pEOFWGgUQaAVO4CXEtBVJ3vZuty Yr5c5qrdGJxo9y5NDjzYDI6uEq1 GNFrENfth3suPLZeAOuxw1EzCYx OURBMAH7IFO4hsAJ1URtCQ7MYBF ygJpE0OJUgWeLzmYE3nNjZViXLC PIUMtK4KTLkXwc6VdO2GYL9cDO2 uV92UHVyQXWtsGGrPSedP159KAX iMDazIPDwPbDvJ3RtJVVyxRxcdC 57Hjihhm95QCRbl8deCZVhwJZeR QM9R8t9jeLnOSIrfEPdvMHuYLQk sDXuRHu2lnOcSBZqtiRrsTPwSHH wgwVnZWy7oaOvJPQpAkIjZ6tfvt GkaFhvybXrq0juucQspoPfDQJtZ nJkcmxcYnJkcnNcYnJkcncxMFxj vYGiQJYuDYWySYLbOTTnRUN8HBW lY9zjzfFmBtnlsaBms8dcyiBcbu YwVXUtnhMhmJQxyHcplFF5b5igC CJzJ7cdrLtWcRK4zHH2DgBxG2Jg bHgxNjIwXGNsYnJkcnRcYnJkcnN cYnJkcncxMFxjbGJyZHJsXGJyZH VgCJTaVQR6GIXzH7mtxiFjwlmqy pFiq7tjbhPdqjUlBOMiKsDfhrLv YnJkcnNcYnJkcncxMFxjbHZlcnR imLIfJ1ltfLHHnOO1cSOiZ3f1W7 bitRfdMsAhKOUbtZb8CbR2KGogs TDiCSO0EBJyFHJlPQDlUXC7TQDs I5byhtCkvQuczbOlm2rpbzLwfwL wXGNsYnJkcnJcYnJkcnNcYnJkcn cxMFxjbGJyZHJiXGJyZHJzXGJyZ XJ3MMUqR1s8ZGB8VFu0PHBpUfPn C2gbfSwcOCVxc5jpVUUyPDHcSXm kNFbqdMV9TzQmU6stsqAjhBguvs Qot4uikxInvbIlDNYyHwXtvbnvG nJkcnNcYnJkcncxMFxjbGJyZHJy YNChUFDzAZHsQSS8CWDgL8evooN gToigrrKga1uqmzIyiaUqKYDdyg QyjEBwyGkloRR9r7yiXAHzW9qzm SfDpME2lME5ToNgO5QpaWm4CuEa GWZyivPfqW50Ctqqr9sfT3JwnTA tWMJpODpygs23MFO5s2nvtVSdDZ isEpnlcJQzeyF7VHpFVNFCNHvGB uMhQU4iPWlMDkbIBPcANlm3DIWr FAtoRVnZYPFDV15LXC4ZC4hdTcD oiPPEAm6SObeQJ66RImVVMZepQV kmnDypfZr6w4qjmNDoc7y7PBmmN VM3xOKQSe5IJbynGpqzdFH8WZgp FpbmfU8tsYCOGSOLTmwTAaiqlbU xGB9STC9GYY6YjTKqIAR3uRS7sH iVEaHJVLUDUvYMaEFjVVI1AmFFV XARGBNLWGYHPT4YOAEgIIL8oOJ9 xR16OIIuNLZnzYCuKMdgE297FFG ePDudORVkScGbQ7RaFHVndKaehT HmDMqozwVmoOr1uQBvpHldSOWxR 3GmVALso9HtA1C4SMUbGSsxl7hj OJPcFWzil9OmNQxYKFJDMN8ZCF4 olAH8TPmTG2GOH8gFuKVhZET0pB J0nOeLHsDUHQGLOsQEkEYiFVL2T lSNIRDAJLNFKITFUCPhLYG4uBJ4 cA52EOUaPZSasFOwYCdrX040QCN yFHeaTksvtIG3MNgsAradaD6jzY FIFJNCRarWHyiokeXcTU2JYD7QJ L5YpHYbGGT3sUV1iMkBDpNFUKKS AbPQcHIkOZS4DhYVRMQSGMAJIAN XOADeZBS2mPY7dS62JTDxIOXtjK IrOYliT895OBZbHSvlAMEtRpXpW 6EiDCKvnMFqpPYimPdjPfD5JSUi PCwmt8cpRTWuIOhuo6MkHMmKEUX BSX7YWT4anJZ6GPqWJ5TOY9aKbH EhDRA1iCGhjYfRDkVWBPVKSqNUg OYjUTC2BiLUUURLFONYLTQpWRlt UWu1ZIo9bQnoKtprywQjePVtWaB diR7ql8lngSQfFTssLvwwdYHeqm C1BPcFEOLJXIkAEbZxLQ8zSJcVL brRDzF1YXXcDLs7TeE2UBYZE10Q HJxMSq47ZBUgYqaXLSobZ1WiUA1 CDLnfSBzyoYocpHk9l9jlwAEzl5 g3JVlxWZN9fQfdqXKxcaywdjTiI JXsQnzsKXdfJTKqxuRakY57Nxpp n9gvU7PdnHWfASIdPRfnuq61NFZ 9b8ezbHGaNHbyDhlejCHwqpV7KZ jKYGGOBHcQPqDtAL1mMBfSEjhHX KiEDah1NSGnYEgrAQlMTQFQO54V ZB2HK1zlXyTkqZNHN8tKQHjUS24 PShEGGZhmTUthaFkosNn5b6zncQ Vah6h9SGgoGCR1yIHpy0lwi8Xdh OthXAE8JZTcCHbzc6zcCROaTCqs z7TbTHcONEYJUH7SCA0gcJD6GPj TR6WEUFo9NYZmNMsnJFcVQXRZA2 8ILJ6QK9koKsTigRHVF0zDOEeTM 36CNcJBFVreTDhogKpjrKv6y8jk fNExg7h4NNggZMU3gYbnlZEqoen mczIwXGNmMlxjZWxsXHBhcmRcaW 59MmuzH5KxTUGwp9CfH8I6AOKoY Aqzm5ahXDIbYCrsv5LvVCkXNGBA ZL9UTI6ruXL1LYiWO6XMD2yFcHI kQiPnWGJpJAP1UnW5VRLGSlENTA AQAmouAgVhkKolDxl2FMb5EBn9b DifBitaprRxaRYkKfWciM0gQtP4 AVUqMXsdi3klPJMcDCxqu3DqHQk QOTCWIT4SIL3ltRI0HIfQF0KHAI vgBiM7AGXvXtQksAWruYrOQtOFW AQFVrY2RUWcHqc9QwS1ZOM2rQG7 kW40JHFuZEEjjIEaOTyoC684WYZ nAWkpZCEpAyNtG5NgJDVraHuasO 52Fmxanj84IQXhy5koATUwh7Mky Oq6xiJxOYXxxJMczNSlWRObHlxn XHRycGFkZGwxMDVcdHJwYWRkZnI zXHRycGFkZHIxMDVcdHJwYWRkZm IzXGNsYnJkcnRcYnJkcnNcYnJkc ncxMFxjbGJyZHJsXGJyZHJzXGJy MBO6QETyA5fwjvBereowsnCfg9t icmRydzEwXGNsYnJkcmJcYnJkcn NcYnJkcncxMFxjbHZlcnRhbHRcY 6gfsYKWvMY2aKYnY8c6T4fnrQbn FdGwBEMymUh8NMMyQIpfdSNzBNC 4WZOnAWVlAOWpFKK8WTPxI2pmju MvuEplpgCco5qahvMaqcWcDLQsY nJkcnJcYnJkcnNcYnJkcncxMFxj fNYwSOUrQEBwZICfSAQuPVU4JRW wX9k8KQK2XKg9GJFuRsQhT1ubxS soSOFer8msEVVoOJJqVYwwSQtnw YFdECKjP7afueEkgRbevnGce8xt cmRydzEwXGNsYnJkcmxcYnJkcnN cYnJkcncxMFxjbGJyZHJyXGJyZH FxQNWaEXO4GJDiD6nefnApJppdx vVza6qgmtIscuAzMTKewuXgsPDg bLocrXY8b7suCOZlJ6bwxMfCuUV 8zQZ8GoSiB2XcaXy2DxkhSIVoZh JkcnRcYnJkcnNcYnJkcncxMFxjb BTdINYwYMOeNJTeOFKoBDK7VMEq B9aefgPpizkjdzXky0fuypVmdjX wXGNsYnJkcmJcYnJkcnNcYnJkcn spKBuepGEthcVsxXZdA4eliCLHc UM0bXKbA8o0A0zwyAosNLVgXNHb hHz4RkHjCJkrRGAvRXfpwNZeFWj oZSF0dHToyvvfOxBxoPUvlIVneA juHfvbkHX0UYqqYooobU3piYFSJ IJXPsfLYfqxqtVkAH6GHG0IGuVD KK97LSRtGGd6ShF2CFKTG93UKVq FBt18KEYmHcoLORBPAShOSGIyW0 5XVS5WTWIsVXtpHKm8PYc5sMitU kgvwfAjgKAuWxTcfJ9QoUN2ZHbi bJQJu5WkhLmfAivzyBX8SJlnRdt glC1bmZSIZAKZNrgGDjjtamMmQM 8VME2MMN5VgOMmSHS0oLZemEgEJ dMVFXYWBjKRxVZqHGM7PWkPULEO RSUVKVGMWZUEDN2AHVNwBLN9cKU 6xS54GNYjQAZyeQOzLJmeY018JY OoAIojEHVnPrOnX9KhAMNckIzmu VTdQRbmazOvcRg2zRWfvSvvIBZq Z1YfAHRzw4DiT0B1GTUnFUnau9p qVQWgNKvxw6GmGLkAFMEXVH8MFE 3xaED5ZVuMJ8MIU0mFdCQoBTF5r JT4wVwWFzBDQSZOIrMJiPFkZDF1 UExBVEVMRVRTLFZBTFVFLDAsLDF 8wGJ9zQ63HRZwJWMxaRIxSDqiN6 27ERl5NWKbWPwqr8haDKEoQPviy 1AjTLoVSDBMKW5NWH7ceWF9DUgK I8TCCOf9PYYdFPacQVgWIYRUK22 CEA0JQ2frOzFenLUWQRETXRUGUq xMGPfXOStqGIwmeJtxbCl1g4smb LNju1a9RYaiQGZ2pAeknAPflszk hsGyKXHiVdZfUMWon4IhU6KzX3K qy4vanGXrTVjeXgahtRWsstF6XW lICNJQKPtMLdSuWD3iGAtZHwzVJ IwNClm6AHEkYYmwTWkGZNPAD91P MX1BL0sfOrKtbVWQMTSJADABZld ILnmJHHBrBVG6zCN8vP19GTNpPV KlkPXjLDolJ192rm54EUefYzllq FO9NPqqYbccuU6vlWTLWJRLYpjP WegmxtKzJP3DPK0ELP7VmHRjUUU 6oQM1cFyZInMOXBOSWzGNjMQkIH O6DNvWTCGDPTFFTAFBMQPdPTqoS Wv6LSt5lPacBdcrnwBjaLCrFuGb sO5lyZltqT0jHzCiSIleTgLjI7P cwUfgVGPyFKdsxKJyTBsbQWE7cT BhclxjZjBccHJvdGVjdHtcZmllb QB9QYacCsfgtD8ygAZNXDTHQwgL BfimseDtCC5IJW4ASyLRZQ74NIE tUPm9AaQ9MXJWI48FHWxEQm91IC ZtIptCBVLACMvCE20KVhIJKRrqY ZxyxAkgqPb9f5sqsDWvx1f3HIeh DHU3oYPje26qdFxptsBqf2vbdVA sDWqqLqmreINiymP6OAqXGSNCLY kKZpKgJG9sXDdIVvbGSfE1SLUpU Km5ZuL7AABFY67JXBpRJs13PBQz IssYWXDPBOsEI37GNcBYXIrtDCm hnMsaqMr5f5bcvATgd0j0HIthUD B2uDyzlCUsxbczdnYgATMrBuxzA IlzDBGafxCdkA00NzrqN8KfLMSk y9GoS3M1VTNoPHwia7qnOBLmUOd uw7QnNCdRWGPWLN5YIR4ufFZ6WL uPH6IXF9vVgYOmZvIcSWIdWWG7D ib4SOGPUvTIIHZMJcbwEpPwbEka Rzw4Rje5MHx2aSqvPcujvjNmrOR mNtJfhI0wXqP5BCEjHMdku4emDM NnPAgwr2LqZNmCEWIGOE0FJW5xp YL3GHdXQ9PTZAfdTzI7LGPsVzWs hTO0xMxKWqBEUASAAdQ1BLQjVqa 4GeB0RQB4tKA6hD79RWTvLAXqqN TaCKvcF857ZIGgAPshLLCkPiImM 1NaUGMwvSqyzS33Dphuqg55VQDp i5dfXIQepDVoVUF5I8s1iyQrWTC elOKxpMCcFWPkwJIsNNy5dkLbRT DcdgPzmBBtIMHqrrDrTEs0xqNeP QHyNoZwR9mevhEybRxfpqNyi6mv cmRydzEwXGNsYnJkcmxcYnJkcnN cYnJkcncxMFxjbGJyZHJyXGJyZH OrHKQkESY3ZFPbS0vsnrSySamgm oOhk7uvooWaobViFUTrdtEgeCXn tLibnCU8v7gyLFJkN8tssRxPwHX 5hRS0AdQoN5RgwDhkKlIuTXOvOo JkcnRcYnJkcnNcYnJkcncxMFxjb WUpRQInILLlVSTbCEMoMWG4CHDt F3vxafSysqhpxzAjb1pzrbZwopO wXGNsYnJkcmJcYnJkcnNcYnJkcn lxJMlpkLGqkfVetMEwZ7gjsWTRm DE5mKAqM3b9U6rarAbeEuDvAVJu bXg0AeL5GHapgQKgNNH1MVIvXZB aUFBeOAH8OLHmK4uzwnUtpYybot Abt0bscrXuqyBxXNTyDkKyxyGkK nJkcnNcYnJkcncxMFxjbGJyZHJi FAYjXBUnCQLaVTI2CQBcM6r1RHW 4WKe1HZJdIlKsH0lffCntLQMft3 aePSKdEBMkTWkpHSpwpKI4OrGvT 0bovzBedKvagtLwp9nhlwNnerBx XGNsYnJkcmxcYnJkcnNcYnJkcnc xMFxjbGJyZHJyXGJyZHJzXGJyZH O2UURzV2pbbbQoAobyhhWzu8cvp mRydzEwXGNsdmVydGFsdFxjbGZ0 a4seFNEqH7zolOgYjHY1sKS0HsQ uR0AszOh3BaHiGGUaetDvpM74Js hsc0bvY9ArwMXmAAKpxTxpnZPnA DybjdEtwWh1cNJhoRftTHXrC5Zh rLgzIWJiQOyjtWDzFBwrETH9cXR hclxjZjBccHJvdGVjdHtcZmllbG J6LJgwKaopuV4nhSIEAZVDPxbIC yybqvWyNV4NCD1YQwVMCR03UPZh NMu1Tdo0OQOCL55NDVxTSa02EJM oCdqIDA3UWEMERVGAQaRNHmdCI2 1LVuRTACtxXUjbjLimkXm8a7jqi MLhh3n8BFziDSS5xJrvlJJ3dLNf KCqkDC61qX2kmYZpxhQlp1gscQC kLVwcZitzsQEtbmV0KVfXOLYYXR aBKyHeJT7kZWoTFzuSIsJ4FWRiY Ou6Gvn3ZRQUA19SZTpMGu15GWVy CljFDS1UJGSIMQIOLbYABzoPI70 ZQyZACPhlPVijaHvqzNp7r9oobR Mmi5q6UTpxXWJ6hOzwvDXeulers oRfBXOrOhpdNFgaKYKdraTriA39 DvwnL1RoTQNiu3DsY6R9QSAfZXg jn9ibXMHrSTznm0WbBQoATUZDGT 1UKZ0nrZE0GZlDK0IXG5wNgQMsC aYrJFGjEPK9Ehu5FZDRZlXOGVOP IkvtCqScqGa9TZzxSZm6ZUj5gOu mCzjghiNifOFeSvUlyW7iCjE7PJ RkOQxvb0vmTIOnMVvql8IgAKrJV DYTSW5GWL4kyTT2CWnLJ6VRKZtx SwE7JPDnKkGrsWH8eLfTRiTUXCO SUmI3XSNqMkm5XjQ5ZRm4wGU5bU 26PJZuEKOzrXXnKAzlA824KJKhY XecJGOoLmKuB6HoEIPcyBcmjJ32 Wkcykb64YRNot5bnXGAeayxxAwO eqJRsMMGoRRrys5Lcj4vvzWVmCI ToTaTlOXAleRFiKBBlQ9e3kmZsI ZVnLXV8XFUeoHTlWZEqU0x5zwLf SNWsBVT4DJKknIUeLGUyH4fxbBX hQBF8SNMgLAKxDWPgZCA8BTOcB9 zxslXdqJvnalQoc8efnpLirkOnR GNsYnJkcnJcYnJkcnNcYnJkcncx MFxjbGJyZHJiXGJyZHJzXGJyZHJ 2BVRrB8q4YCO9TSz7YMPfYbKmO0 fwiAqkWCZyr5gyKAStLbUcVLyiH WxseDYzMDBccGFyZFxpbnRibFx3 eAFolTxdYKXnL3HiuCaejjLdxGd vg4crjEMnRWztRhLkvNKxFT4oki Dnx9qzQ2miXM58HMQcxrE1STNhy 241TH7qim6bG5t5nPZpWQ5jqNws XOrgiYahw5taA0d5VOSrlKyvVJY 6BMZzfa7aeKnmqxMyehWynuLtUZ TlvGTnVRF9WXNhlpXqMEKot56pG THwdIecBtVyXRdyr62be3D3vB9r SJ2xLM3oPJ7ggQPaluBnoVPqwxG dAOxjCR82MRDbl58pJJC4kJqvXO ckRMGaHXZntzXyiVlsU4b1WXWjg 5gyF6xdXUDfJIUvxwhzq1esH4i4 bHkgbGVmdCBzaGlmdGVkLlxwYXJ noFYpGCCkWq1XLJQLVBUNY7fpOA EMXAPBCRQ9SFDphcngPSzwYOIbx YXch8JojXNuGNC4NpwqNJJjkXPv XCC5Y9e4uuKqFANmpCYjuMXcXFK bxOXnOTs2hrDjTLOiazKehDJgMC ArizYcMNo9fhLiQJHzNuIvI2kzj jOquZzwdyLvx4komtOkyeVpVLJd YnJkcmxcYnJkcnNcYnJkcncxMFx uhWKgDQTeWTVbMTHgJLZpKHE7NG SiO9tfvpDaVqoneoPzm3zpnlVfk xNiKSFvwuWemNUcsAlznZL4t7pe WNZuT6liuCmTtPY8rYigIFvdPNx pzHMxBaEdM4njexVksWhotbOmv6 xicmRydzEwXGNsYnJkcmxcYnJkc nNcYnJkcncxMFxjbGJyZHJyXGJy TWYtAIAgLVR4BHSnY2drihVyCen lmbKmn7eyiiBhhvWpCRHejiHisM PbrTgttXH5u2noVTYwZ3zrnKiEn XQ2jLO2QRJsW5LsjKa5LYXmUTUi YnJkcnRcYnJkcnNcYnJkcncxMFx ncJRdJUTvZSCyBQPwEIFmOLJ4ZS FpP0ljhkPrwcwamrYqj4zlitMjn zEwXGNsYnJkcmJcYnJkcnNcYnJk bjdoJOzspMOsazJomDKyD0sqkBB SzYE1nHJtU4h3O6eudWxzGQvvSN UgsHq5GcswROwoZRKmLGbveZHaT LJuUXjbWDS1qCTwvjJYIVD9hDKv G8BvoXyoSYNhLPkwiQNkBIasMKB 8lAAgeaftCeIgY5HaaMrjHMQcQZ myhTSvYOewNOD9jZVedcmaWmHoR x0syQVgGSBduszuFCChBokrWQvw INywxCExUJUsn7h6pd46YEh3hiy lZnQyNzBcdHJwYWRkZnQzXHRycG CvIGRdZ4g5tkYpLHVyXCI3FKQah SYwUFAxS4p2kaFzDQMcCZS0UDBk gEYjKYReB2jmzHSuINR5IZKrTDW mLDTiZVR8WLEiM1urmvRwdUqomc Plr0nsecPbmoRzFQMqTsGfidGxV nJkcnNcYnJkcncxMFxjbGJyZHJi JOLpXSAjFXXmPNI3HVWxY2w5RNA 6PWq8MPYpWpLdF9dicKgkGRNqb7 naCFBgDPVzNRGopBr9OAA3KDmze VDnVPP6AKUyXRQyVCXzHNP4VKBn J6fiphApcTsqqjQeu8zvceVnjoQ wXGNsYnJkcnJcYnJkcnNcYnJkcn cxMFxjbGJyZHJiXGJyZHJzXGJyZ UD5ZRLyE1w3YWE8VUy4PWDfRoXt R8keaVprAEDms0maRUZrIwe7QQc oAUuqrEV8BVRhI2xzyfYyfOgumu Smz1pzlgTutuGtHJYpTtOdpmuzR nJkcnNcYnJkcncxMFxjbGJyZHJy JQFtRVQaKKDyADB2JIZpT4hccpP rCgvnffEet9ubiyYsikFnEYHvkb QmdOSjaVkfaYF2j2hsXRCzX5qav DoCwSI4bYL3FCApF8XayZg1CPVz ABOxapDubV75LpkfpITka7wmD9R scGFyXGNmMiAwXGNlbGxccGFyZF wqwjWhxWa5gPRquWpoORUrI9NbT APbGTGnWhDAfVEetAUfU9HnsGzd LZPaVFfqdDPfJZayDLA5xINxovn tHlCnZL5aZROdpKrwfQ81Anrvml 77SRAev7mvFKVvoEYxdFS0KNk0c nBhZGRmdDNcdHJwYWRkZmwzXHRy cGFkZGwxMDVcdHJwYWRkZnIzXHR ycGFkZHIxMDVcdHJwYWRkZmIzXG NsYnJkcnRcYnJkcnNcYnJkcncxM FxjbGJyZHJsXGJyZHJzXGJyZHJ3 NWUtP5kwotZriqgywcDeb3iyzxE ydzEwXGNsYnJkcmJcYnJkcnNcYn IlaqjmSKntqSMvwxLppNPuL3mbj INOjDC6vJMcS7o5T4otmOt7MYCf H3CnpPofOQfnKMSlPnWnoxTgLkY kcnNcYnJkcncxMFxjbGJyZHJsXG MiMPJbCOPgDQY1FGLhI9hugdQqy bevpmXsa0jbeaNlknJlLUJlRyRp cmJcYnJkcnNcYnJkcncxMFxjbHZ bqcSyrDEsK1qtoOBVjAM1cCWvL4 w6C9wslKgaUmqwPTBjtZl1IBk3W PamyULpPLE1RGEdYQOjRJNiYFQ5 SKBvQ2weaxMmqRmantBcx0smyzM ydzEwXGNsYnJkcnJcYnJkcnNcYn JkcncxMFxjbGJyZHJiXGJyZHJzX RSxWSK2OAGtZ0d8YYR3EAa1VNXj AiXcT6jgoCncXYMlc2luKTBrZQm 9HOhgTIozxDK0MsHamRBqZLkboh JubUetdaw1pHKzeOuaOTMkM2PcN NDaE3NjoIxhWQUaRRuvgWKoSOhh VRV0pMTyctuvNzWeOIUaS2AyKSX vm678NHzjJVSkDGUwhTVsy8eoNP geHQMqqrAqxI31Ehhzb0vqE9Qou GFyIDEtNVxjZWxsXGludGJsXHJv r0c5rj65YAj2vawhQbKuFhQpzQY kSCGyFdWuRRFucHRhLDQhI7s6fs LxURGfMFO2RZHzbQLeTYOwL6a2l vVyIQGdZVK2BLHasBZbNOJuS6fm aHNmKXY1KSDjRLMvIOUhPOL2BQE hM5mcnrNybGdewmEag4nfdvQzca EwXGNsYnJkcnJcYnJkcnNcYnJkc ncxMFxjbGJyZHJiXGJyZHJzXGJy WKG4ZBAiC9x4DGY1NIg8VNSbJtI rY0hvoThpTMZvf7upTRHqECVqVC SueEt6LWS5ZUyylHZfXCO6SOLyC RZrVSUxTDI1OGLuD7qjzhWbzCld mjZbw3vfngFrguDzKNEzElUywoV cYnJkcnNcYnJkcncxMFxjbGJyZH UlUPYgHGPoZPRqYNK2DGAsS8a6Q DZ1MUh6GSWnBxZrD1uooFwrCYRh o3ykVHZyRwp1MMufXWrwiCH1JHW nT8gspkEyjUsqjuExn2onuoYcxh EwXGNsYnJkcmxcYnJkcnNcYnJkc ncxMFxjbGJyZHJyXGJyZHJzXGJy CYI7KBMzT8wubfNjLngcvcPdq0m icmRydzEwXGNsdmVydGFsdFxjbG U3v0emHGXvG5uepSkWpTL7wIW9H IGdA1JgdBw5KPIiLOHmycVxzQ77 IgvgaCBjr8jdD0AckXAnQNDrSyI 9S1tgOOsxJJEtjoMvtH52Xpiuq1 hoZ3GzrGEmQIWoGBPhTYgoUfAtX OhqbR8eS97anQLeU7EsfkWhA6Sd A9UzF4KteMatPPHgIZiqwCYaQSx rBFX5wNUzwsjbYkEhKfJbRvUrE5 RrpUswolOspGing1odpTXuk4Dpn PFiQYF1VtahTIIzvNNpFGS6O1e2 cnBhZGRmbDNcdHJwYWRkbDEwNVx 0cnBhZGRmcjNcdHJwYWRkcjEwNV m7pbCeJKOlQpQkE4tjsgGvqVtdd nTvm0taovZhqeZrCCAbCzDrojia YnJkcnNcYnJkcncxMFxjbGJyZHJ tHJFmYDLoFSWsBTS7KFWjU3nuyp FvTgvukeDpl0avctXivfVaDSTwc iAgcWPdzWspbQF4u1dtWWKfY0cd mPoZjOU3hSacEQlhPThfiXFfSvJ oH7ygkyOhfSlzpxOdl9mgevDowl EwXGNsYnJkcmxcYnJkcnNcYnJkc ncxMFxjbGJyZHJyXGJyZHJzXGJy FZO6VFJwU1aviyLsMcifjvLel1z icmRydzEwXGNsdmVydGFsdFxjbG A4l1jmTITpD2ahdMsZaYB7nMT2I UGmZ8LtoJw0TSIkHJVeSuRkesKx YnJkcnNcYnJkcncxMFxjbGJyZHJ bVZPoLZOmUZAkQBN8JEGxP0byje PtofmnqtTqf0owcqVojnWiCLXrY nJkcmJcYnJkcnNcYnJkcncxMFxj aOXntgIapJEzA2kepVUXmZM2pWN cN6r1G2pusHncMUgyIFWffBb6Ma kzMFxwYXJkXGludGJsXHFyXHdpZ BA1tNLjujjuVlXwDBluQJlkEHWz ekIgrY64Pihfz2ggB9OyyOVjGEL hGPQfLUdoYzXlZD7zsG2nfQvqbZ BkT3WbeCjfWZZmLYmvgUNfASgzC RA7sQFwihecHpYaYS67UFTeoAru xE65Sswwii78UJLio0rnEKMddYZ djBD0BXd7wpQwGVExdAVaxKXzCQ RkZmwzXHRycGFkZGwxMDVcdHJwY WRkZnIzXHRycGFkZHIxMDVcdHJw YWRkZmIzXGNsYnJkcnRcYnJkcnN cYnJkcncxMFxjbGJyZHJsXGJyZH VuWEWjAVY9DRMsD6bezrHavbmci aNhj8flzoTyimLdITPcDlVedcNu YnJkcnNcYnJkcncxMFxjbHZlcnR apZTuO2xnuENCyFV3hJZwN2k0L5 abmLj3HAZtH8HaqOxoVKysOTKuR nJkcnRcYnJkcnNcYnJkcncxMFxj tDApFZBiEMMbUHUkVQKiELJ0KSR sM0dlqcNymevatxTmm5kgmvObel EwXGNsYnJkcmJcYnJkcnNcYnJkc hprHHjhzQGcayOhuZZqE4lhgPHT kEA9rUTvS6w2J9ukeVlfGgzdBNR lyRi5LWk9XMlmsXQbBCX7YCClEP KiYIUsCXV3BZDjI1wbocVkqLhlt xEma2ykosKbrtIdMHHjKdJwqzGp YnJkcnNcYnJkcncxMFxjbGJyZHJ pWRGuXONdLRAgMMC4LXZbQ8b0PZ V2UTp8BPMiMwYiC0yvaRpvEJPlk 1mzMEWhWYg9NPxvMHomnNY8CaHl nWOqXOvvvzJgxTqgryr4rLAwsLb sTEOaG8PlQEIkT5CozQrwDYWbAK dzoIUxHVkhPVG3cLWiivotGkQyX ALaC9WgWIRjk32fvTrlv6uhITap FOLyexZteR16Ycwsz2hjW7JcbGN qRDPtCTSeWBYuM2OjtKxxiuYnrN wbx6ubmTWsb0HipQYpJWU8DlaaA PUefXVmJXW3Q5m9khQrBXAllIAh lCQbNFEsfKNmCKt6ztBfOEJqyoJ scUNvKZWzqxNgKSg0xxAuWDDwHw KjC3nsmiIrlVgjukHku8mesyWxn zEwXGNsYnJkcmxcYnJkcnNcYnJk cncxMFxjbGJyZHJyXGJyZHJzXGJ zJYO0XPHoE6nzuePdZhrknrHsa6 xicmRydzEwXGNsdmVydGFsdFxjb YC3z2kbPTBoQ7nuoAmFvFV9uMlm MLhoOLuubRPmUwCeQ6nyqtJfaIe tvrMqv9wobpMcutYoSUHwCbVmgw xcYnJkcnNcYnJkcncxMFxjbGJyZ OMkUKRcSYFmCLVtNYD4BIDcU7kd knVnSrmmmsDiy2kcutGqjvGrLFD iivEvaCChwGcynFV9x5nePZLvT7 gutCvHxGL3wZF0VXQmP6WzmPu3P TUwXGNsYnJkcnRcYnJkcnNcYnJk cncxMFxjbGJyZHJsXGJyZHJzXGJ yRQH8TWWpE2ndgeMcnofturBll7 xicmRydzEwXGNsYnJkcmJcYnJkc nNcYnJkcncxMFxjbHZlcnRhbHRc Z0vriWTBcAT2dLZpO4j1A5amkGn fYPmcIAEylKk8RvgjZNcfIKAhJI yluMCuKARpAZcdXIU2lWCbuydpY fRiYatcUMtwJVRjzrXvdQ53Yebe h4rzB0LgwPZwIGYnKZHjTEyqCdC tWA7tz8L7qWBzBWEzoArujXZpRY sqwbZnvQk1gQCsnIivYSUuU9EgR ZRjNRxeRBruABlmwMVfOLZmv4d1 fg49PAo4clwbWhWvRqJljWIjYGW kKfItPMXzgXMbSOPoV6j1rhOpIH PmMDL3AWUliFBiFWWeI8f7vjTnU QJdCNB4AMPmuJKnJIVlO2qfbCHb JQZ3XYXhKMKjIQQdTYK4WUMeC1w jimQgiGexllYny3nswvCxuzOtYU NsYnJkcnJcYnJkcnNcYnJkcncxM FxjbGJyZHJiXGJyZHJzXGJyZHJ3 LUXhR8k7KFQ0HSf3VIWhGfGgB9b pbFwqULJcq7lyGXOlUKVaMCYtoW h5LMT5BQkzcQIfFHN9ESRwPQUdK OFxBGX8UXBxW7ynrxGxiDoslsAq m6ckrdOplgOsETFlRcHgkqLdVpW kcnNcYnJkcncxMFxjbGJyZHJiXG WfPJPeBHLaVXU3HBNuP7s9TWK4U Ya7UCLnOgDtB1xfyJamZFXdz2iq MMNvHpp1GPhuZIawlVM9MEVsI6d ztjKzqRcvhnLtz8qivyBoisNrVV NsYnJkcmxcYnJkcnNcYnJkcncxM FxjbGJyZHJyXGJyZHJzXGJyZHJ3 GQEtV3iczfTpAlqrqyJhi4rpgpR yltBkOHZqlxXlhGFkeVzhvQK0t0 bbXIXrK1aslWlPiZQ0bJP2JQTiV 4KxaFx5PJNrRGEhevDonY36Brjo mBJja2cjM5KrrAMtOKMoAmK8BQW qfOlebOXyBRqcyqSntFe7nPBxiJ leNXAjK4MbEQBjQCDvNfARoup4r ENvfMCkjMQeG0Pkr59dr1cgFSfj SDDatwFabV86Hputd9yzS7TdvYH pNJCiGAXqWo0nR2kqWJsmQVurcO QnJQLta2s9sh25LTw6xpiaDxEwA zBcdHJwYWRkZnQzXHRycGFkZGZs G6l4sfNvYEJtIPG9GRTamLXfLRZ rC3x6qoLqCRIxKYB7WZAvaSKyAC WiU1vbbJQvEBL7QUPuTYSnCSViL UT6WARiY9niqbNcfClkrmGcs6kj cmRydzEwXGNsYnJkcnJcYnJkcnN cYnJkcncxMFxjbGJyZHJiXGJyZH HhREVxIQW4AQTxE7t2CAQ8DAq1X JIwRsEuD0ohcLxcDAYtm0mcBTXn CTLfEARslMr0BPD5DNqnsMLrPJT 2MKFtZAGuCHPsNER7DXEiK4ncdv VzhWguzyZyb5wfxyYxutWeBIJpH nJkcnJcYnJkcnNcYnJkcncxMFxj jOEwITEpMHPyEGBbPQFxHHY9QOB vT9w5ILU9ZGd5UYEuBgIoN0grwM toSQWth8qjDXUuVvs6PXzyEJcfn QE1PWZkT6zhwwFotRqkpnAnb2mj cmRydzEwXGNsYnJkcmxcYnJkcnN cYnJkcncxMFxjbGJyZHJyXGJyZH ZlWCVzVJB1IKOqZ1oxcvLiKjpvw wJbl8mpmmDhpmJaWIMeubGghEYl sVmqiPN2p0hmGTLpH8blnHqUuLY 5kDK4DLAmV6PvaLq4GXGdJDLdea QfnN23MlkmiNRjm1isW5XxjFCaX YRbHvNeKQzbRMqzEHFmemTuhI69 Mpcsb6yiY5UixSGjFSMpIJSyWDr yBlBiAViwfVdnZ2y3KGNzZ4GrkF qdMXSgMGmeeJIwJQmiIWR2nUYgw iqrBnTyZf1lJ5gdAQygVSeojJDl LMItt9c9jy05MKn3knuvEiTfNoX oaDAcuBNld5q8gxXdGVAopBCwpX JwYWRkZmwzXHRycGFkZGwxMDVcd HJwYWRkZnIzXHRycGFkZHIxMDVc dHJwYWRkZmIzXGNsYnJkcnRcYnJ kcnNcYnJkcncxMFxjbGJyZHJsXG KlNGWoEMBfZPM1ABVxZ1gxxpFzn tduokGtr7xkegNnbqHxGBEyNoDe cmJcYnJkcnNcYnJkcncxMFxjbHZ ydsCmxCZpC7fdqPUJwDD1uVNhQ5 u3O3engWu0RZAcJ0WtbUgiGLidT GNsYnJkcnRcYnJkcnNcYnJkcncx MFxjbGJyZHJsXGJyZHJzXGJyZHJ 1JJJbY7bcfzKgtzmypgAhl6kwss RydzEwXGNsYnJkcmJcYnJkcnNcY hMvowykXIqjoPFbldJdeRUrT1vf dKNAoRJ2oXUoX3u2C5nvbYpfCjk xJUFcgPd7HDm0FTigsWWtKOK1TL TcYANjPZNiWVU5XVCdC0girlXdg FtukqKvy7ctqyPafoSeHNBnHkXl cnJcYnJkcnNcYnJkcncxMFxjbGJ jGILpYHZsGAHiOCNqEOL5RVSgX3 c4IAF4KRe7HEUfTxLoS9foiSrvM IVuz1cyUEJtTMo2SGdeCEtzuNZ0 NeAkzTHeIZvzsbGtkMvvwek3aAO ukLgrLJJjW8MvKELmL3QqcFtxPJ VnRAsapRIxQCdtLZH7eNUiyswyH tEjDKTqY4IaAXNsLUUbMSMzGKot a0rwGHlcLFRavhRwoC39Uwovq2p vE0OrhVCvONAaKSDxZCPwL4MakW uigyRhrTdlo0jkkTXuVVU9RMHmI OF4SGFlwSejGWPrsxzgOCPoFIYs NLdknM7eVO4Glvj1oPYtYRhfAbB qJFc2EYBxOXUaMZIADDybxqYpi8 ZmoJBnSeB3CDSuBTQgTQPqUJcdQ PCvnUXxBBRkLFxkn59hl0ZifT2o aySegEb5XpYUplFoSFDhCOWam7D ssiIqYZPhnv1nQWfcwNmpUSXqUK Xfnqdxe4uiCPXtXdgru1BpYbluZ XJccGFyICAgIFNwZWNpbWVuIFF1 TFtycQa2YOFptWe0kBWdWSIjlNS 1bGVzIHdpdGggdHJpbGluZWFnZS FcYC0pjJ2ok7xdg6mkLVHvDDQsj rFeUGMlTXLvzCMieCRkGWgqwg7i XHBhclxwYXIgICAgTWVnYWthcnl zI6x7JYT5KTHjQYRdysIcGMHCKO QqkkElMT5hn4GzPU4yV4QoRRD8z 6R6hAWqxxWkcUAeKn7qkZBnFCJz vsNjWQLZdxp7gYPemK7zDCNemoj fYFDii8NtxRQerYIwFFSeyxYhf5 YlRR4hR4YbcC3mUIhyoGH5fAUpY ZK2eY1mnXGluFraXJWyS7SsgBCp NrrsVTVndNChHQOiSLgyCP69aY7 ei9wfg2neBzUZdpUnSJ31CJvnbT ojwUEhJ7Ooh4PvbwDcvQD8mQKcb Gilwx7zaVFdVQJjliGxCGSVzRrl wbqwTKbdoVuuQ2p2YIRjQZOaPET mWVeeVCSeBZNxFYZ5mpKmd3e6eX Coy9KhAISeyLDaZTbsBRZTYUZ2H GNlbGxzIGFyZSBpbmNyZWFzZWQg WJ3mHOBoiD5fc7PgNOPvKUIwuUU axXLjk0WmWJkvdF8ucRuimA4baS O6oRXnPYKmzc60ubDcB3RpyLOmf CBudWNsZXVzIGFuZCBhYnVuZGFu gGDryDEojLjfa83jWaIrlgLheYs mvi8nAHLzRDGrGWOyDSoaegDrdl ZfqMfkIZk8IOvrH9McOYRlSKSjh lNkiXxoODx7RXO4cGDxE3FeNYew V7f9HQugTvUopOyfvKHzrGRczob jbgfxXMGhc8Ymgp4zJQbhMMBuzQ YkHKJpVk4AYQTDJLPYM4wjElqRL FNZOlxwYXJcYjBccGFyICAgIEFk GJR3XWZ9TzVVfFOirUNtfWFeWKO hTKXutHWxy4H8gBWqrFU6vGGpTW VpTvRvK3CyjUwzDQynfw34lxC8j JUetRBxFZSyvguwLXUkBOKwQ3Un fMMdAMWxzPq2MUXabXd0wJSuuJO 8QQrnCXFtXzPnC3CakQM3giSsZP Xtwp4vcnWaTJs7yU20A4acz2yux rNhxRTzfq83NCVyKC7iufQiKEVq WJXyrgXnRW82ZWMjhFPrcYTmMGZ kQZFvULWfLLCrsJHhlBOxu2Xcn7 QvhXt5wIXpHXpdTP2mILXfL5Nha NNcIJXrIcevHYOamWXpQYNeXY2E KXHuuLncLsTDlKKrVHBqNNcjE8L sXUZxDI9tzWGxFUBnlvUkSEUTKN 9cjN7ez7rny5kbEgSUrpemfQ5hF RnyBSgzaLF7a0PphYEarATuWSXb qlreFYAqEHWfKAMhXYxtsfttM0c 6FFL2ESIuBXErwmHoKHOjwsisEL YuZMYbTINeGDqfkgxgS3q7RGAou 6MfiF4iu5q6OcPJm40eLzI3XZ4l Z1TrSAD9s4I4bXPmECVoCDCbzsZ sSa6gCVItDDO8TAPsSYK8RNr1PN Lzt68dv5OaLJalgEvbc6xfJpTgH xDcJRDzpGXopYBxf1ZfggD7hXXc KXzuP0rgErkgEsOjHUDagq7ieJS fROAxhdCpLGQYxS8gaH1kMTHhtl OdeDOsVCEzZmFLh16eRFmeOC75i NAsIXZkMZCqgidnOVQpREHxLa4j GKF0gtIwEJS6cQXfOfWJqXFjFDZ jj6z4dVcrJR5jie1bfBSuxZ0moV GbRLQfblraIMCtEMNnJ6FuZKW1K PPvJTSqMDrac5QnjN8sLk4vUDfk s63lCVOco72mnVGbkYGaJJteQ6A nSVLjBZBogK8kTJljKQmli82oUN AOiYWdhRZhDPD9SRcmICEnlzMNO IScFDWxp51qnLPwkWTjSXWrviUq bvrrLXUinRdqIXKxsT1fhHdkTRx mNZ8sRCSdOSMaGDdzo9RcaB3bLi 9pQJMxgVyjiYtnkwXkBO8qqbY8m eY3QFIquBphXUOyZJQjMXyhgvR7 sPI0hWhtRGSkHxKym6igSryvXOJ bNW0fhN9ckCwsmO2miBVrwPFssB CynRVwbiMzb4UpWY9uHWOhTWMjj aNiDI3nvxE7zxC2OHRvXADycwHg s3FzHWUghDYdwq7yTVXqKNugyJE mg0lzy5PzN7miyShvFHpsz4AlyU 4uDq2aSOSGDnXqnIfrsVdfQ4g7o wRnU0P4dKTgDBXqNHJtvfetJBEx sDUrnJCrNLwll5PdpVrkunE6OCx fAUAFoP76ic5qnKT9h3EmIS2rK4 SxKPP9KWlcKUMnjxVIWHUwErPop YornPxykIHsVUmomFS3vMBxNC28 ZWxvaWRzIGFuZCBtaWxkbHkgaW5 flhAyu3XqXQ0lw3XwE8SydQLdOX UOcS21ae0inVP2o4UkTI8yN1HjT DK7YXcvAIZmstIEVHSkEHHusDew dAhayBAhBQVzGUN3HPScRSYqwMK wuIPrX8LgrRAvWSZbNMLmTAluxT PaSAZiHLFna0y8iUjxnLKoDc4tV KkiyPMmGMZmLMRxRF9oIIIxPrnn M7iFIN2xOMKvYDUbSUejw3IlxR4 cSw6dADWdjctlUOOrILFakgKnNY ovtBq8UPSpc8RrXHRdvVRdE7UhW X8aJzlaGGPueB9pCX5yHF2eZJng yGPak0pbo3IsZ1zobSufBYzpq8N reZ2bYl6oFVUBAeLynKtwsWneD8 h4ldQoBUvsQCEjPUK3ZISeITPzo WFsbCBCIGNlbGxzIHdpdGggMSB0 tW50NNTyG5BoD2N3CGIligU7wDC jKPKgBWAhOaK4cLOblPsjb1MkRs NbY7XdEPcwI9dfqGwjqQAqpCmfP Li8RKlxP1IfHWDlYAOdbrFhwoL9 sLBbWRoeGVFaVPhhbtN9jLungFI hcmUgYWxzbyBpbmNyZWFzZWQgYW 9mVSHudNf3YQZtjZ9eaEnbVHUtd 21hbGwgYWdncmVnYXRlLlxwYXJc gIYjSLOwZ6fJALTBEHVJRF3BDap eGHAcGfAtoFZsVYMxBE3selZbst DaNSH1nSDlYGT0GFHpFAdhSMVyj cElD8wfrpX6fUEzVScaMA90uU8p eUKyRRVuHQFfgFgrQN65ICAayYg lsePmI8AjcMYkEIWntK5nJGSutg 5nnOXiNLIfxuMhFYFSv5FkoU1cl 8n2PsJGJZW3uQRjHKYlZLGoMXHu MV3vbIFkzQDxgXEfD6CchQDcAQX jCVVePPWoEXYfeTg4cHBcZO1fyC PaKZEzfrxkREWSR8uLBDBIFGBAT LDGVyfnD0YuDBEfbABhTIYaVBFf MFxwYXIgICAgRmxvdyBjeXRvbWV 5fum5SAZbfsUrJJGqvjPqKxTjnL APG5HnoSOkzjapJoqvilYeoUYbe IW0oulzDLEmv38ksICkoHVqFlax IQHjjTLxu1PgG8ylqjTttRzyczK wap4mKFoniSQvVAUpSLMaILZmh9 6lAVMkFzTyuuUqRlProa4sptIxY 4adggImPvzcrlBkkk0iYGtoqGJd gbFegITvX4zrjJPRrYX9wTZsH6t 7M7lsxAy6PWIlVNEmtNf9BQSdVH xwYXJkXGludGJsXGxpMjQwXGJyZ JT1AUAkMNBxb79vEAJbXWSwVYGz NFCiq58xXOEdPFDbGXQjOPSfq14 bSWCiUXMyZEHkCWBbETJnTZM1GG DvYvLdizGtZ0yyRERxOEJVwtEcz uOtVKZxhAsttbdoDQXlHgYoG7Pz QENinpjgUMUtBEyqhPTtJIo8NKN yXGNmMCBUaGVyZSBpcyBhbiBpbW 95eg5fhQEel9U6wZktMBmgzQAmp NA7fB3abVVXIZJxlQuay8Qzg5P6 EBjULYT9FsEGTCXrFaJmSXvxDmI 1GYVaYuUitF7oaF6tjXZtaissLM ycPXTgKkWkn0oia6GcGUEkBtCin 3c4sJxsgPGcHqOiVGonkd5wM9iy oGidxtO1jNuxYGFjyYWem8RdmOU mjUcaKZDwr0S5RFZfmIMovnHmLP 46ZY0vOIAodK5mq9Zlt27quUVSH ZLwnPrquEdvyXjhL4n2o4KgdhHv ymDnn2cenCC8WTcpwH60c7u5FD3 cxlPzYlbkCDWknHL2RM0xShMunT 4qkX6cCUEgZL8hUsYzCGEukE5lt ZU5a08dQXy6iNDax05dWKSyjT3e wJ2pjBVmqSXvpXKbYmExhM0aqJ9 fDPwdMY5mxtoay0BoYOSwiUoquO stpBSloMwiWMIfyUi8QAPkqMItm rNipbFtl0u1hKMtJA4zkaOmBKGo EweiQGBGNY6SSAZxKW8tF6G5fZF iIRdzjLDni8UjVR7nvGbxOGxrgf UfvHuuJOGvU82xujNyHGRht51mw 8w1dRE6oBHsH5ilpsyxHGzlNZ0v ZWPvszCurABxzx70ZHquc1UzyLM 5dF8dv8stBiFguB8aiE1rin7rvQ JvTU2mkCVtFAOaNEPxTJoxGUNdF PpqfOFsf7UhHW9roWiptYBkiXc5 FBWgm7TdmaR0DUEvE4QybJMgyYM yPNQkAIFWXybypK0gX7L8UyKOPZ P7JaG7TpvyBaWye0UsiJxneWkiD 9e1AODfVFDhihSpRSFmB6xmrr74 arGfx2ZqrE2pIR3stqxgDvgoLST zO9YoaHDsDYnsPBAsGXLvbZeuqt XfALJuTTHrjkTlHUQqkgEaO4Zjx yVtWYXcQNtbOWY8fUQmy3tkziTd AE2wDbGiaARxeS5daJ8fQHHavTq iRdHhnWMfuG4rkK4jMULxm21fAN JiSQWwmtKwZT6aOUDhk93lAMnqF lLtjAokjcaxWY5blvqqh9EcYRBj H1J5o6XhCWRjumFbDEFhA4KtgGD knZ8yrX0qjc1qoOQupbM3bDSzCW Lax44gQXGrSTBluNHecsCgSVQvd cDyaII2dU3uOFvgdCrbpIbiOPBj vG8dA5WyUNUkTEPcn53yVM0cyiU iktItfHD5b4XusEmatP6oxKOqLi fiQAejW8WyWRAnbhs+XHBhciBUa CHoIZJuagXrqlFitK73cc6mnPFa b0C9sVywLTT5gKPxfjHsWP2dYLF lZHMhit0uiGYmTHAqDUH5ZCVtgL UhWZQhe45tRKUlcR3jY0CkPQDlt gPpkAW6aG5rIVpgQVHaL09sxZFo HLGnGdtoWXNdPSIrVHFzLD3yq4E tBKzhg3wcb53bv9D6PWWqOFVtmR IbxStxdjZipIkabTEoKgx0UQpsi gHsuKMtOtlxiTCqyEYsxLXvg4Ik vRWpLUR2TpBoHQmpl0Mms1lqR3q yNlFsvLLmV7uxnhFjdGjhcjNudl 6vTGqkvVTcQXHeSPYuLEZhm53dS KMbRyJdfsLqUhPovr6mdcGiO1ws ewJuRbfawhVvzv1uWUwxqYHsdwP qyMNpY2thcRBCxUA7oVWqE2d4F5 exxKq2QlP1ZGThkZk1QGU2ZIprE GE4py98bXhent2mYPF9oSWauRGr QFWvlo90XWZwqoXibE79AoveK7K uEWRvoNujdL60Tqhhfc77OSKar1 xbORkuf2Yvn5myI8kyyqDyiWfpz aCzfc0jHDgiyDUyBKRkENBkAFAo c67bNSYdAoDqldZpNmFhzi6gfpC aX5qsjyKjUdezzaEjle5mKAmvfA IvgkJtpFOiI9mdiIUGpWQ7hSOqB 0c9Z6sxmIm4BNTuWFCbiSc2CDOg MFxwYXJkXGludGJsXGxpMjQwXGJ zHMH4YYIdBSDgb25nBTJzUTFiVF XuSDMuf15bFICcJMVwGAJiMJHfi 57dYRTnINKgIURpLUFuTRIfFEE4 ECSmAnOqvsJxN3uhUZIxXKRNTVN 1bHRzXHBhclxiMFxjZjJccGFyXH WkxcPinM39XdlsxCVoqKRjInLJe O46XOT6eR7xKATyjRGVy06kJF4e iiTlzaUDeW55yu2liBHqn1J0rYb nI9lpHLIrdjkuVBArZqKdY3AyTC 5kkMKgNPNrlaVeyA50VzgmlZGzs RHwjva9WXizQKHlIsJECXRgRTOg yjIbuKSrbEi3YM6xtnIccCPlCry cp8stMQY4HMXxhvIhiM78RghdnN GixNSaqak4KYVCz4ArVTlkL3Siy SOMcGFqCE3oy3ZeGQcgn5anz54y z6R6OBPuNPYreOKvgCgaPESfKSl scMQyQBx2NMQhSRSjOTDxIgOiyG j4UJqCGf0wvt8hxCXDTFDgwXpqs 2Taf6V2MOvcSHR1Z9ZhcOypwg4z IVH5xGZgwDPxRWBbtc4sgT93Exi npJUwtDX5w7nuNP8ml9N2RMSwLV Caq9VzQVPkc6kgYLFjJ0XvMNB2R WFbKhTbhfDwTrOlbb6pkpZbI5sh tvReoJavfqMggg2jCYuqqISvFXI bWKVsWPOyo04aQQSpQlUgwxQyYt Szgq6dmlGcX6u0WXK7NZa1FVGuF aGiR5ecmOacRBOnv4lyFXLoIYrd SOnaFKtogOQ0CVEyO4boFiEjiNK bI9fqjzHdnDjmxvCaaj2fXPcmnX IdUFVmTGRqZMBtc88hJMIhFfMlz sHySaRqmc0qgwXrV6pzjbVwYtey dtNlih1lCXwwaOWwbqLgoKRhH8a unCEFnGA0zCUbO4d4S7swsBbjKT N8RMNhuHu0TVO8O9bduBUaeVV1A sjmjYMpJLW4TVWjWQCax31dUSOa XeEquuubJuVoug8fdrGsC4gllgJ lpryshtQqld1hAYytcSLfJFNoQO SgCOBjh69pQGCcgjXyvWRsyCzze PF5f1zbAZZdG0yupLxDeVP3jAB9 DCKbU9SqvOd4MbE3HL2ul1Eci7r 9d9ydz83md2V5KDLoZSWthFNndZ 7uqZJuPXgsyyMgiCjzgNYnR6oho TkwXGIwXGNmMCBDRDJcbmVzdGNl gEa0UA6awfLfnMRvDlwko2irRFS 4SHBnwjJjqP75FzznrULloJNuls s5ZCNRY15DYKLxzCzuWS5np5QfR Umzp8elg59ei7A7QPSzFMZyaDWc mFlaXLDtKLqxrBNtYDd1YKMwRWS pOTAgTmVnYXRpdmVcbmVzdGNlbG c2PE9nzdDbaJHdMmrgq9moLSC2I MtlgJOqQVe6KLHsd9ssRfrwVMG4 aTKedJZlvj5wm6a7ef65KNmrfAM upBE8TDdkcQVrGVS3ARGlERPlAP EpUWD3DZHfR8mvzsIocKkimgGie l7lQYgqzAYaXWFfXFPnAYWid37t NYDvVgXlhwGwVbIjow0bqeZtJ5u 7CJA6RIg3KJKrAzUuA3bicWwyTL Jmm8kuYYBvHAlsSDalOJxjkES0G QIxB5tbLhUarQEfQ0jsleQrfKec bjSxp5vmfwDiovOyOIBdNnHqnzu eCdRnsa7isbIyA0ictmZhtalgiz Rktc8hVPuegZIlGOMaBQJrHDXld 43wQORlmbIfuSDwvEnexRH3k9nm FOIqE8kygNfEoRB2wKX5OFijW9N dnLm0COgjOHTiB3GxPFC3WOFgTg JkcnRcYnJkcnNcYnJkcncxMFxjb NCdNDWaHJHmXPDxh12qLNPdKaQt gmGlItFbpm0qumMcN5fowvKqKoi ierKcqm2aUNqubHOemgFhvZUrG8 aazGATqIX7gVStT7r1G3khuQaoM gCiBIWooEy0PUBkGqanVLV5vn71 hSlkwb1aGOC9zWLidGAzKCOkgn7 9IYHqokFsqP37WmnluVKtyFRtyf n6TJEDZXMckgGpbGVqkVj1IT0ox cGxbYViUerha9exMTI0PWOqlyOu bS52PphfjLXqtARcyzf0FCFIQTH dkGxrQZ5jx9NdHWiin1zeh59bi3 W6DQYqLYGusHFurVorPZInNByzm SHlNNe5GHFfJARjVIPwEnLkOPNl loEavuWpdDRyjBs0IJ8ukrXbaGV rJuxpk0leEUJ2WXdzaJMpRVy0NA Ezp7itTpczHAK5gOXrnJEflt8wm 1v7ou22YSltlPSjdFR8AQrssYVc QPA5OONrZXLqIEUpJKI7ZIJnQ8e ztjSnxKjxdaIleq1jBNhqiRFpWX MtFRPqWHFkm34sPEGkAhNjsmLtK mFwrr5ysjJhW6k6IPJ9OYr2JRUt RnQmD2icmNmzTOUio0jeZVTuWEn dHKqhOFzbnMO0NHDvA1zhHcHkxD EsC0utxeGvuKycuaRyk6nexnOfe bKzTFXyIdYyvsfyAqHafi4zggCc Q9zqnaUzswfiwbAasb8aMMkflQZ sKJCaWNWwJIJry70jCKAhqeBnvY RrmRxicWI3r6xnBRSyZ4ufjUpLx LA4pVF2XFwxT0JhmJf7YFebKKUi M9YrHKG4EIOeEsSatbGkCwMtroS cYnJkcncxMFxjbGJyZHJsXGJyZH Smg50jGBBxDnJwdaXnHkHvzx7jt gApQ8rqryCrJhzwjtLhrt1eMVse cIZqajCeuEEkY1obqDKRaAY9yKO yD3r7V9cebSiqLvWfDQVewPf5RJ HhWmmpTDV5kz75pXwtaz0cGAU4b YZkbHAjIOLzpx54SURvpnLevG71 XwaqySHjsEUoyye4OUGOESFndbV nhTAqnYr9NQ5eufYjoOPgKnnbv7 lqNNX6WXZzqlFpgZ67IkzbfXDoi CRjnxc6SYMVBSCtyVjru0Fxz8C8 ZE8ti2XtAPkww5xxo24gb6Y7DDK sZXNccGFyfVxwYXJkXGludGJsXG m4JIWzHESqIUOdYpOgWAMkjfYnf sMtjUQxpZr0PN3ujfPukOJgWvqq f4zxEDL8JNyrmLIdWZf9ZSUil5j sRqlmDLH6lSKllDDcts1hb1z9ut 99JLpbuYEumSM9MRejjCVsPAA1O UHqYJYzKFKyXIR7AHYpO2iosqTw nXmaowWosd7wXDjedRQjWJIqESR uRBAdv56vHFLhPxHuenQjIpFdhf 1thsLsY2i2CVI2FJq3NEEzZcIpO 9vycEvyJUYbp5ynMPGaZMwaNNjf BVxfbKQ2PIVxA9ciXnVcpJLsX1c adcNkhDtkkmMjb7lqbzByyfPvVG XpIyBcxaooMdOtjx5pwjGiH2qan rMtqqgspdPfzg9hRVwgdBYaQHBw EPZcPXVwo70vXBYqjzBqqXRilMx urVG9o5fvCMCyN0uitBrKgSB5fJ O7VZpcL2CkkMj3TIddMPNkR9TyR BZ6DURpFlCgxjAkVwTiryUgPpLq uetxLTubfRRqEAUvMAEnQBAmh97 bBWIfDcDtiuHlKuCrkb3psqZkJ4 osvwYvSgtzqsDucb7uZVsntKDiv fIlgHVqQ1cojUSVnNI0fSOcT0n8 F6quuWfgHbQjZYQbuPm3CGIsFuy bJCI7io45vHbjrp4wSZQ7lUSkxY UcCYWfrv36GUZkjhZrvY28Yntjq FPqtYImmai1ZLCWRQGirjFyjAMq rYn2IM4dotRmkTCaOemkc5ulVUP 3SZAioiPecY78BmbgdCBcrYQjsr g0BUOALHGovSecWT6si0BfJGtlo 5iyc51lq9S6MZFnLXQjaZAflYws RYJpXHqjzOKfWJc7DECrXFSaGFK vIqTzNLGrltCtglZhxINxuRt8WV 3prqRkcQTjZhovp8iyQUG6HDieh UNmVRz9CAOdk1buPtnjBEB2xGUs jLJeyf7rr4o5xa95WNh4njCuNqs uTSOtH6ObTTI1HBAlJzCvurTpLp JkcnNcYnJkcncxMFxjbGJyZHJsX EQmMMByj53zKFSmAwSwhkCyTfSz rk6yjfOeT1iimwFeZpcnltZmvs6 jQHxkjASwywYntYKhJ4gmbNCOgU P7cLNnQ9z9N2xrzMmrHGS6CTBjm Nl6IIsdPXrkvGOtxNQ0TKvzaZJx JML0WMIsQSWoLGBbKLJ4PUGpK1l spxMtiRopliKzsm8jHPkfcIFtVS TfGTNiSCDcx88sGBPgLtLlkrUkM cCjpl0hbzAmX4t3BEY6YAo5XFCn YiGdF9uzdYukLFAep6zaKJEuRxB 8LLxqMIjhdNJ7VrYpS9uyWjBdjZ OzG4zgngQdyTigatSdx2abnmRiu bUuGVOrNlAagjzkFqGwdq1lafCo D9dlyaKatbhryyNukq6jWXyuhBN uURFeFRHyFPDlp92cVXLpfpQmzI TegXimoZW2a2dgEDJzQ3nfpRcNs XH9aCX5IHLkN7FarOa0RyI7YQ9q n7Nkp5h7k2yec59iq0K6FPEoZOJ igLCbeQ0vpREeDMmbzvYrtBjhoT VmX0jgbVofNNTOC5yjJFD4N1Riw Vdobu5lIEL8nJIrnVDjWTJfme9k qMXxOSwqsaEquIkbwGLlT1resIs gTBDfKqbgF8UagJWvmuUfcJFnvE e8DY3hgwGxbDVvJqkzu5zpUMO7Q GOnkeTuqB87FqedmDOvzVHjngy7 JKTOZGjjzPf5XGxjLNH1D2CqxJf dsn0rADN6iFDjfQNfNCHrbm3odC 71OvomuWTsvDR2n4jvID8bv1M3P TEkZLOzd7GaDDEuc3vhUTOhK0Bl OTN0AYAiVxAqpxYmSwIkbkUbFzN kcncxMFxjbGJyZHJsXGJyZHJub2 8zZZMpSvFeqyYjIxVhxy9wpyPmA 1npqyGwUgbwlzLttc4fJQbkxCRt tjEzsCHkR1ydqXNIyJV3nUAqU0z 5V3jlgKctENR8RWNewAp6FYuhLT nahVPmnTN5GKucfYFiAYC8XMNfK OQkCXCrYLB7QSPcF9nalsYcyIxp osLhfb4pDOybxCVlHXApOIUjDBM xe67lZLEaEwSezbQsDsLbfw4nxf ZiO7i0ZLR6BPp7BIVeVkUjD9pps JyvLLQmt2uyJNXcMvH9YBwuUEss uCS7NuHvM8xmOkJlmUQlP0fkwuI baJpeljGgk4yvyzMyxoJeCQGgIz QdpfseOuKcvj3frtOhZ0mcraMfq nxsfkFrwa4rCZjsbEGzOCPzPHMs MRCtf47tLKYfrlFudYOsyBfgmYZ 2y6mfGVMhE9kxtTtGeVI0uPD8XM WqB9HcgBk2RcI9BU4wn4Bnj4a2k 9gyz22nk5S0CCWcFNJsiCEprZ9d tMOeNDrohdHnvPbvkSQaF0eilWv cCHGJRDtoEAW7M8PzsJaebc9zFR P6jFDtmGPvRKXgra5exCVmASiyw xNcoUwpkZWzX4acrZmxGMZwO2Yl dCDuhGNfWIIaenPjyXLmsAh3OQ2 iekQxiKWgJewle9xtHAR7AFDhtd VsvY86MokgyVJyrRVtlbk1CUUQW DuqhFj9HPbfDUP3F7MifSvumu9k GUP1kWAddVJdKQTtbs9kiT13Kea ksTZiuUM2u9euDF0ba0N9ZWYgGY Vdz9KtOESqs8nyLFCmT4PiCXV3O GNsYnJkcnRcYnJkcnNcYnJkcncx XQivfAUxJCDyXSJiGTHpd52cLCE cAlMkwlSpAdUdgl6rfaSmM9ntpl OkDsynznPszd3cGSegmMCvmuRjo XRfZ7ibkWMGrMK8jHGaI8z8X0kn mIkzCSZ6CLFvrGn5MBcpAFtltBZ zqTM8GBjvoEFpBPF0HWPkRLIvZD HjZJI9GHYhZ6nuagJzhMqdwoIoo d1oLOlasMYlRBLsCQLdCKGnj17s PXEjNgFrglNnUkWhua4iugDfO8r 3DEJ0DNb6TJKvDtMqR8kovKwwGE Ejd5mmRBCaHqN4ZEkvQSgjsEO0Y sKgE5gsObPkiXSfQ0gtlyBixJxc svGdz4bfniLsycTfKNKsQqOvmlu hCmDxxu4jsmOmX4xbrmExorynan Gfgs4fAZrxxASfRRPuWAXwVTBpm 51nMBWmajHfzUPgqVuhbNW6w6cz OAHwJ9pzkDxQxUJ1pTA9COSqU6J ysCt2QtJ6EI7wq9Dhy8v6c6gmr4 4ds6T0OZChYCRqiTWivA1wcNXeP RzydlQqwIojqGRkZ8hczBfhNQCM BDVajpOiuCPcsZj9AG3hczYbvMG iBdabv6geXUT3CDLockJueD45Uz udjYWqaYPmqoa7ZFSCAEXvqJvsp 7Uil8J0LD1fi1RbVJnpa3sbf16z j6V8VFRaWSKfiDOibFgqNZHnQOm ppNKdNSk1FDXfPTTgCVYoXjUzTI LcpySnbkChfQPffIf7OQ7ikqBra KYrPypdu4seAHD7XLpwoWNoOVm4 PGOvd2omYmwkAOE5pLVplBJapr4 hj5c4mx14ARlaoURctNW4YTiapA LpDSR6NJOkTOJgYXVlOFT0NRDdS 4nvdqCmcAqtciUiet3cLBugaBJt SNMgFIMhYGZqu38oKIVuSqOeczS bUpNrav4ornSpA4q8DOR6UTu7WB ZeGtRhY7gssKcaGKQjk9qsGYYtB RsbKMglFVhvbIR7UBNrJ2vsNsVl gXPwA9gifhTkkYpdvwYhz5mwofC rqbVtRWZbZbMdrhmtByMxjv8mfl PpQ8xmmtLqmbuwxlXayt5wCQceo HZiOIDiJWCjMLZpc87aIECqdrCv lDMtuXawoZM1z4oaLPOaJ3rdfNr JoXL9rFQ8ASiaN3SmxXf3SWtgRY KnZ3NcUIP1EPViSzLcsiUmYdTpj nNcYnJkcncxMFxjbGJyZHJsXGJy SQGbo71iCDGuMxSisbPnUhWquc2 ykpCoP3gjisSwSraspjMndz3rZQ blwDMeluHgcUQfC7motNUIfEK4s TFfU1j8F8wfvWuuHoGrYTYojGd9 VSGwPjinZUS9kt17tIchdg1hBML 0zOMfmHTrQEKxvt04QPPkvjFwbM 96QohokAOpvCWqris5PXSMKCUyL M3uq3DeNJbho5mhu04oh3G7HUJp ZXNccGFyfVxwYXJkXGludGJsXGl 0UUUuIQSkVXVlCWuxqZ5oPSjdMM K6W0TryZquzk4qLUD8pTPbeYEtF RTvad1yzNQnOQyqivVftRembXYt A1mrlGjlTO1qW4B4iNIsFM1tf4L eCKrie4rhh65fo9B8HGUaBXTsgJ MehOdyexHysAwaqJVjA3x6RNjys oDmyBRpVvbltHTpsNZmnGZen3Zu K4ukAgOloINnW6frscTswXkhwkG yj8qideEqhxEyXERmNlLjookmSm Iwmt4khnIlO6sdmdOlrjfzomBil v8mERrqwGKpCCCpOMUhZNKsl76c VQTfsbGulJTjaHqxtKZ0n1iuWCT cQ0eqjTeHgAW9kQE0ENTiF3DubO uuXGP0MWOsT5DdHXX0GIZjAkWrr nRcYnJkcnNcYnJkcncxMFxjbGJy BQNoZONjJGSgs72kFFYwBxVhzgN kCiIeiq3rldMxW1qdvyWdSpdfzf Mtcw0fJHuclNYtzkBuzYRrD1dcd HCRpWD2cMKbU7u6L1mmxKpyWDA3 TJPypYp1GHW1F5ewuEYrcWC4SYq uwGIvGJN5RFCiQMRzTSAlJTL0WB IvE6ikmpSlnJxejxUpfp1kUWels KKzNECtAETtQCBdm42kFJCbPyYi iiRtUqMlfb0dkjMgI0n9JZY5LCw 0TFDlHwElD9npnAwmZOHtr5vqKR GjScy8E7eiMLrbvOjcHxOhmyEiv HHjd228YL9kxhFvoYFvYcjfh1oi GLY4yLpuGXGgNXodxVGgELu8RLX wLOEtJNWhZ3ZgBs14XckpDPK8T2 ElhYpzoa5yXSE8lEBrgOLcIMBto f2orZNiSTmvfuVdmFnvgCNzT0an iSalYT6AFYLrmPfsHJ6kj9GjBYv ai1jjr75jd0G7BGBxLONlcOXwvR spVCRuKMlryTEfXSk7UYYsLAXdA TAgTmVnYXRpdmVcbmVzdGNlbGx7 XQ3kcyGmkNJtIravm0diIGX7ZRj dfOBpRXm7KHZan1ihGqngREZ8uK VgmTWuoj2id0h8uk04FXiehNTfy KC0IEtpxDSnGBW6ZIXlHJSbVYEv IRG8HFOyQ0dongMivZeyprZmtt1 uTUikpMTiDYDmEUXfIMXvk59jUE TyMqIyeaUrHeExjv3dldKnP2u0P IH8XOj8DYJnRzJiD5qcaBluXUXt t5ryPOAcAZlkZEtkXBqmlFK2BPS wM9smHwMmmVCuW6amkiDidGeebd Wfw9lxksUqiqBnEHKdLtCabsxcF oTcmm4jbjDmK2twgcVtxlihkbAh ec3yZFiisGIvAQOxHBDhFTVrl39 vZXDuciMbmKHobOjvqEG0e1diFI DqJ3swtPeVzPW7cKC3IYgoH5Kpe Yk2FAwaJEZpA3WiUQQ2ACLmFgYe cnRcYnJkcnNcYnJkcncxMFxjbGJ nEVPwXMFhFXThd48qUDWsZqIxpv GbJsAkxg5gyzQbF7uyduLhSsqks qAaec3mYBmvvNXwgeUhbTBnI6tv iHLJmID9bAHpT2n4O0zjnGeyBbR eIJAjcGs0NLWpTgccWFX7bn92qH pycm7fTRQ8xSRrfHCrZZFphc22J LWdotVfkY22RzuorVEodZJwnrp8 CUTSMZW3AI8lr4WfYLapn5axx94 pv3J5LQZsNLNplKBrbEitMGNwSG fykNCyMYh4OCYzBANhESRvRd3hQ Nfia3ubJCM6E5EdwVuwqk0aQKU9 iGToiKKgVQZcgd7tkTZgOEggbaG joDerkGSgD6zxvOogUZ6vS7Q2sM KkZP2kr8OaDQzup9zmp74xv9R4E WJsZXNccGFyfVxpbnRibFxpdGFw W4c4ALeixiHfgTUmQnupyQKueID fuWXlj0HswPRxcAT0SYmcrEZovI C5EQdueRFcRPZ5LAGaXHLqTDCiU HS3UXXxY4oihmVqxAwclsLupr8c SMncmEJfHHRsAMZtSDVkh89eHEP bCbCgllViZbGbpt0tijEvN4c0UZ M0KTw2UKFaMfTsK1aycTyiIVXhg 1yjBNWdHZndIKhoEFpksTD0TABj S3xyCzVfcSJvH7qqarXaxFspvpY yn9dmmtHdseWsBKSwMcQkejihEy Fpcw2fkrYlY1hscrDqgmrqowXtd m2hLUswaXHpSXKiCXLnFJGlo78i USXiteTquKStaXdfnMN0o7enNYP nA0izlVuBkDV9iQF9GSewP6GfrD y2BKvmQZMwA6VwFVL6MPXlGxFah nRcYnJkcnNcYnJkcncxMFxjbGJy HXNkTFZsACOzr86fSOOwGqGiweX cEtKyqa9muyReI7asixIvElzrsp Uihq9fOQsmiZGkfpQrrDLkD7poy ITJfNA1mPPtO1i4Z9mgdGeyWwNi QWZtuUx4JFHdGubpOIF1yk98rRn ziy3yDSE2jAFbxNFcNXDkdl66WE GlkiLgqP07VbdfgRZvgZOmbsw2P WNMHYUcPI3ty4QsKZcki1sgr85h h0U1SIBfBQIodSRnwKnrEWPkUZy ifGLuNXj4YHVdGHMoGPSiUu3iEB vtl1ufQLS8I2LuaEysvr6oPRT0x JVniRCkOEBqkh0huJXjWFtceiMb lLuhwNWaQ9ujqSsbJUYoz8m8oJQ pIV0ds9WqYQmvy1rxw96mq2K0UL JsZXNccGFyfVxpbnRibFxpdGFwM 9q1NOscuiQxwAGiEwgqoLXuhXEf kCRpu3CbT2ofAqMthGTkS3ktzaF crKgrdrHck8opeaMftfApZFErEv YslxkyRnVjlc8mibLwR6hnclZiy gqutdTxfx4bAXuepHEyXNRuAMGj QPZea94sUEZgquAamYNzhVptxWB 5i4ozLXAoB4lazVtVuDC0vKN6RW DkL1IvdXmqRCR8UPGdA7OfGPS3R GNsYnJkcnRcYnJkcnNcYnJkcncx GJruxOUvRNYpWGUvNKUuj94rTCE yVdTlsuCiCrHrda3swpMvR3lwge GrQticcmXscd9xBNbzwEMayqJzz DZeW5cinEZMmGJ4eLLsI4t3P1ec hJdsTFU1KVBnhZr2GZK1X6xnwBE ruQI1VAgcbYSdEBA0YABtPQOgLV RjKHZ1BINdG1aebhPoiLpcsyOqg x0rDUgsxUAwCRZsHGNnCVQfg27t OKMhXmXxbjEvToArgt9ufvObS1n 4VHF0LBd6HKQjXeIqA3zdcFkxCF Vlx2aaCQIiJpt6X4xxAIeycVdmR eDjywWpmHLpo950IO1uzhAqbYWd Aztrg4vmDNC1bEicDSSeLAygfFK jEAh9MGFbYLPiOPYcR6HvF7owWS E9Q6DsbBvhon8pECA6sFDlkHQsI LXjxq1zcJNiEFampdQjaLmqbPBn F0jzjRxaOKDuN0FjbETtg9Dhy2G 6KP3bk3QaOKhvc6tof30wy9O6FM JsZXNccGFyfVxwYXJkXGludGJsX Fp5ZRNcOOHzRDIiRlOwQELvisTz ubZnnDTqfDf4UO4qwtAayUQmKlu rn6xiFLE5MMwutTEjLOc5EXJtb0 opAljkUCY0iOVdyFMols4sg5b5y m19IKmttAQlyEC9KDwioSDpDEU4 HQEpBAHgDOAyGLW2MKWuG6vdmpK enUgtbbDrjr1xEPxbbUBdKGErAK FhTPTjf02mDZSdMfTmzmXzOeUdv m6qmiSfJ8f5DPB4KGf8DVVgZsRy L9jqtJmyRXOqb5flXQFySWdhWLe mMZkivQV6QQUiT4miTlAohOPbP4 bxlwHfaZyvklGlf8vnbcPllkMuD UPbGqTxbxvlClGxfy7wdyWpQ2zs ndRszltdqjGjir6cARqtgLNiCJI oMRWfBFPfd83hSVGyvzBcyZDuqT pycWQ2q7drSRNxE9vstGoWaAM2t HP4PQqvL6KtwEo6YUeoGJBoX8Qr LGX4NIMjNiKinaTcXoGqyjWcJmF kcncxMFxjbGJyZHJsXGJyZHJub2 0uPRGjCwCnrmKwEmXcyw5jraCbU 1hfqdCnXjvritQdsy6eRJtwfSHo dlUifIHeD6mjuNKVqHJ6xDCvU2h 6B6zqzSshIkAcOGVssZx6JYUvMt swBHI0oo83oFisio2pRTZ1fSTzk AWzINSclh45XUIofwNnzD23Hydt dUCnsRLwgua0PSAAFKH3ZT6zz1K zPXtok2jqr85gz0P2QXIkDUVhpU DpbFzrZXPrQFfokRBbMFw8QIHmP VPpZASuQwfyq5WfibYonVKbhLs0 PD3rcaCuvIKnFgqrp7zxFYV5MVG ddaNmpD37EpjsmRGjtAMhtai8OM CXZUyodJv9NKzuBJW3G6EjlOrzw r0rNBV9rNZncATlVFYxjn7pqY66 ZrvocFYwmUS8z9kcPJ8uv1O5ALL iALDnx1OkVWChh5rgXDHcV3FfKA Y6QJGtOxYaesWqLaIebkBgMwMdy nnhOTilrVDiDVQlZUDbQWAan27l JBNeRjJmtcUgJaFbtj1xeiNhQ3m ubmPpUxvvkmCsvt6zSNwvuSRatm PsrGFjT0qufLVZmRV1fVHzP1v3M 8ihzNqoHTK5VFGddGb5RRtfSXsc jELkySX7KHeaeFTyCFJ0DMVbCDO eTWXtKXB8EGHxF8wufoJxyWlncc Kafh4pFHnyfUAhJODhUXWsACRqp 39aNGXwPpPcypXlYnAael6figRx Z3c3LJY6JZw3FXRbPcRkC8nzfGm qMCTdm7suVINuLsW1WIzrPPdnnP B4OxDwJ1mbNtSnnPDjS8fmshQnr CsjirSdx7ylfkPjwlFvBLRtGaZb vwetAzUasj9oanCcT4xqlyYdile nfqKxnr3rCRrvvAVhPNQkKRXlUY Llq90dQNYjiqNddVNagGafiGC3g 4zqQCYmF8afeOkWwYL6nSW2WJMx S9BpoHc4KfE5EV7tq3Owr4u5x7u fn16mm8G4PCNpIVAmbXYyuA7vbR TpAWndyrMlxAhzrRWsP7hquAgtQ VYSAQUzueBwnGTuwQq8VY4iiwXo zASgYczvg7giXBO4VACrkyIpsO7 1RixsnYAmpJIxzsd8EQXUUL1fzP U0d19omAZzFD5da1KhBSqzc9mor 48id0M6RXFuDIBjvKKvjVatAOTt QNrsdIAlZOk4AKSxALOsGCGqAX8 hhFEgwzYuenKisWMufYr3OW6emy CkySLsCqabk0knNPC9MQylbNPzN St5HMScx5liCtagNCZ4oAFioLHb sg4dr5f7bw05NXsuuJWosMW9EPw clNCjJYL2BHEmKEDrJRJoDAI9NH ZyA6twkaDzlGtgopFxoz7dZIqlw NUgAXJiRIAuZSPrv26qQPXbXmUx vbEiRsArcx2ghxWxU1y1ESK5DYo 6ZAWwLdPbH4pnqPbuGYTor7afID HbTGnwQYthXFfmjIK2DTUqA3ujW qHduUFjB5vxwpUhdBhzcdAui2qx cmRydzEwXGNsYnJkcmxcYnJkcm5 cqgIqT6qcjqVafnznvvIzfi0wJA mpaLOdJYRcLSWvDWVif76fAEQbc jXpoXDejQgdpEI6g0kxSUPdS3hx fObNyKJ8tMP5EXhlC4LrrAa2LRi hDDPjX5VtERO5MHFrFhMyoxVlNk JkcnNcYnJkcncxMFxjbGJyZHJsX IHmNXPwf13eLBFhPgMeywWuBuFc vo4prpNaO8zxqpCjEzhxrtGtmc9 mJMltfPRjuqPrjXRnO2ngjNMQyN N8sWNcS3j4I2timFlaXpWdHFNsw Dw3HCBqHbolTBZ9rh91xIapfe1s ZCV2fRPzqKUvJWTarl66LQCamyM kuY17OrowgSXqtSKevhr2FHSUEI LqX9fqZVD2E3JkbBzbsj1wSZU7y HFizALtVVLvli7xgRYsMZzawaMi sGzmgZLkE7nhfXqkHGQrphHvqKF oV3cxWZS5C8AgaUmehl3rDJC8aC IkxTXwZZCakb5qvSQzVHtjtoFmw HulrFAlM0jvtOpjXB8eD7Q9fPKl HR0xd1OpWBtap8yst76mz5G0ANL sZXNccGFyfVxpbnRibFxpdGFwM3 k7MHjaqlLboSDmYdxpkBJkcPDmh JSmc6UoL8zmGtHvvPGkX4uiykJp fThxpePry2gceuLjsrErYHAiEfS dfnptYqLmsr9qcqKhI4ktclMijc pigoEdbl3iGGovqPTlBIJmTFHrJ DCux46wULRakrIyjJOmsGbmnLP5 x6wjHOQsN3mnfNaAxTV1nKM3FKS cY6TweTznVAY8DNNhT9IjYXI3FO NsYnJkcnRcYnJkcnNcYnJkcncxM BwxpYGoMIAfYJKzZSPeb11vCWHy RwHdjcYtXrXdpi0oetYiN5uulxT dWqkfdsMcev8eJRweqYUkogDbuL PbD5rhhUOVkEL0mWGtM2r5C2xzi FyoLEK2BSFxqYl6YLS8A1yqbZQo cFL7SGhyyYUgARH5DFMjIJQtAUY fBBX3JSJoU3cdbpGqaJkqicRfzt 5sMXjdhDXlEYYnJDWjFJLje40pM LGbNxHqpnGxXzRziq5oioCcG5g2 NBN1BPs9FCSaGdOwX3rvaCxvSXQ xz2oiMBGsLwg0C1gjIEjkiOmiDs SdxuNwaJDzw725DE7aoqPtsOVuE yejd1cbGJD7zZcpZEJqPBhkiNSe IEx6GTZiWFXdIKRmD9VjLMNmioH mpPMblIj5UZ1taiFlqFGwMjqcw4 lgXNV4AQGstyJigU79FvzhlKYeb FSfrob7XDVQUHQadLznWB4bd5Vt JVqzk0sub82pl7V9ETEzDEMypCU nfFwzSWEzYVyusVBbFWz7GKChJH QtWTTbQI1viOZumsUcCMZyhUfjy vOghHUydGd4HV9ptxWmrAHaPijj t5bpNUE2XYizoNMxMFa0PENus7o sXznwTXQ3aISetQGbpr9ts2g9it 33NSdrmLHtcQO5DXdggLXvDKO2I VCyQYGtSPVzVQU8USAzH3alhzAb aJkqriLndl1lXXabbHUiISLmLXY pIDPbp17nCMFzWaQznsVbSpDunf 6mnrGfN3a5QFN7RWo1AEXrBqEfT 9fioIqyOXEot4jySQOcXKdsCRic TIpalIE1AYWgB3gdEcUeaRJtS8y lyhOujGqupaSkn7qtyqFmdsHmWR MwIfTsveewAcXojk7qdsTfX5lgc oFjsffdwjOcoc1uEOjgbKKbZSGt UMNvENBcy06rAELezbHakKMmsEa idUW1l4mxEXSeN9ipsOoAbKY9wJ P9HFsrL4BxqGt5ELnpUPAuX9RlK EA2PIHgVxUjfnKwNgKqozDhJnCk rupwVRoxlMVpGZPdTMSmVJQls25 vQVVbTbInqePcEaGxqb3nikFmW0 yoxiJdYkzasfZsno3fHVxdfRSud ySulUGkM2skjUKIaFR8iMFnL9l5 G2gitTbgLgFtIXYpnFk3GZKaGpd pOBN0rg69fOjwqd2vQCI3pNEndI TeZWLxgi96JFAstjGmaS73Uxhat ZDmgASnerq6QLCyRHRlOQ0nIE9e UGZwhpSjuSWlqBw1XE3kenSlqPJ bQliuh8cdXDP2LPRtyrNfwI63Be tcxJMidZUrPf3uCGpji5gqPSY8J 2NubLrfsg4eDNY4oDHihGBnRZQw sp4uhVDfXIigfcXuoZugfRJbL3a xzYjoOD1eB8T3hKCbZU4le2YtBE ecm4oqh62ik3N5YGFtWFOvmWFtt DhnisGjqWkybJSyU2k1NIdyfdUr dLYfZzpgtVZhfJBooEMte3TiI8v nEhXyvRJuO2bujtYygIsnqxZfw6 xicmRydzEwXGNsYnJkcmxcYnJkc f5pazUcG5cpvqYyggvhejDpvr2m PPgjwFDlFWYfCLHkXJYkl95oCUL vusIkoXWlfKmkbER8f5mzUKCcY3 dpdEuIyRW7zHR2PFFzJ2DatFrfX IS6PDOcK4RtPUQ8GLWmZcKsksRx YnJkcnNcYnJkcncxMFxjbGJyZHJ uLEKdDRBqp64gAUEmOaGnoxRlOx Ybsm9oxhVhA6zltzDaJhopduZga p4oAIxfiXQinuZmzRHcP4lkmSGB oGN9uARvH7m8A9offSocDTU4ILO idOw7OMF8M3pdlTNvsPR6QOnwdD FhPZZ3FQBdSLYcIZTsPSK5FHUoI 2ldevSvmAxdhxJwho0dXRcvqJEa TQVyZBKlVPWbd55tCFHqRuKrhkH nKbVula2jheFoW7p0JIM1OAu0AM VeZtFuD7erxFcvNPGcw0bjFYQgE vx9X9jnABvndTgtFmBemtYgmRJw a259JT7jvaQvxNNtKubjh0bpHPU 4gGtiNEWfHCztfLRrFNl9IJCnCE ZqVAQeRQAVUmFlapAdnODmlRd3O M2zgyNesISyJgjyi0huXBY9RWIf vrYjwE94ApuvuFGstPSzNT3gDBm ia0myJIM2V0UgrZfcyy1vQZX5nH BxnXOeMXGrsr6awQOeNNnpnzSqp PziwEJtM5zcpZxcFZ2dT7H7kSSn FK9cb9DvFEbgk1urb14cl2N0HQD sZXNccGFyfVxpbnRibFxpdGFwM3 v8JLnoanMptGHvQobywTDzoSSgk LEpu3HgjWMpfUWoc8lkjOZixXX0 EJrnuOUvWUR1CEEeMEHyGPIhTSO 7QPCxB4jhmeJjfVmzkoWquz4kPD hdaAUoVHLpCRMgKZBfr37uUGRrM tIdqaLkOhYvui1hmaDpA1o9PLO2 FMm4KAXtXeOqP2yomOycZFIbf8o zYSTsKCteFVwtFSsguRD5LAKeA3 kuLsAllWGwJ6ngoxQpbScjunRsn 1xicmRydzEwXGNsYnJkcmxcYnJk bo7zroZrK2sljuOphvloxsAktq6 hKFjbdKTiQRPpOFDbPUTsy54iWO NelqYfxARoxZxapJB2g1pvNCYwS 9djiNnNrLT8zDA8UApjD9IuqQf0 SJnoUILtP5LdFOS2EWRmFuFamwJ cYnJkcnNcYnJkcncxMFxjbGJyZH MjHMMkGXGkz45lQEWnYtGypiTgP dUpnf3oypMfI5srznYxGjdujaTb af5yMZeurHTxrtAzeCDhZ6sxqJE ZrGM2tOJyZ4q6R1gcaHbdBaLsTD BsdFi0EJItXjhkGSB9qr59xMqee c0bJCJ9qOWilDHxGIAgoc75NTOa ilYaeU58AeiooIZurUKlgfzgTKU xGdfrefYycIQboJD0wkpoOYAlNF u0p8ewYR7nTRVvVZWrm87qGQ2dw cTjsjLgd3QwtgI9TTKeQFOjYGlm PCAoPUAwNsEdPO0fXZOwhVNkKXW 1GH62dmHzVIIaMKGxVVEJGRS9AK OtIHFljDOvVSHkLQZ8BUJvaTOee ZOjgXmeovVmViIjoA3fuU5uoHAf fk4dRMgxJHi4zOVgn4C4tCMfKOV nIPUog66hr8TcRZSqJhIjWH3bqM C2jyZia0DhpCT9HWYoL4Oeq5IvX YRuO2WltGWiROg7HWhzD5W8MjRW YPVbKWIixvE1MIZrPrObGJIEAqT wIYcgbsZzHVVpZHCscnSlOu0nLF fdihXiWNDoFD2lJItkdgXoiCZbU XCiaCWxfVNfjCVgBAQkAGBwEF0l GZe2bZOtb8N1nEFrZlS9GGQhBmB JHFUayZbkJHwua2xzK8dtsKZjgP 9bfC2aaYzatc89oUWaQ8OcvYvpH QqvmFlcO6OnYBBRGedvtU2cR0Cw Sg33DdmgOXBrj0AvqNe8LQEew4Q xG7I6LOenQ4XxRRkloC7eYXRUCL W4TgH0VRUWGKjrMWctnMHqr7ppw zSaoVMoSBHquHM2fzJiYAfkuNc0 SBpoTEQOHdiyV4U3ZWHFMLFzYEH lfBojWYDzq4wew8aie5MuGFZERw CiAPD9wZMbe0Vrf50kMHzpPIEfY cHhh6O6wHQ5rP0vRMgxQA6cR3T1 lKXdMXBtxhQOSfDSQSwbZU9gVN0 vW5T1oHOcBVKzpiN3yTWxarSjMY mmfM2ySQXvj5FcWQJbJEYoUDTrD FRjXYqzz9XvUVYjHl49CD1xOPcg jcLufTJaHLFJUVKkzUxmd2Oyw6U 9QRl9OHCaBgQqzH8zfF3zoXVbyf aaXYCwHA8wQPIjM1TrsWGwFYS4l BdzzAThaR34bhKmb0gtGw5xo2Gr DLGnicHklY86ZKRtGEOjd5SwbSH jzxJyADUxCQJqK3XbsmwnhMtykr ElhdEdfKFglF9wvY9mbMlzff76b YFvX6QaiVopLEnfvHseI4VpOJRK ERclM9YPPsGrK0LPLi4iMAEjp2I veAz7SYSfx8XcO9A0LGqnV9HqAF aeN3DyGYdeR2CaAWUlEAPntPniG CZhQELnQPmvyZb5PAJgb8Dhp4Ey HvXoEZInwS11yf4iiN5ptTngijY wnIkdqFUivSWrbrSmAA5wIMIrPZ OtRB4csV9suoxvqAHwkEGnTV5xx tbuzxSsGOYnuFqbuVDgSDUvc5Bw DmLKyHGfpgDmZFwlkS7xJWFkS8Y fuSMiREZxZHeicSNbl3PeXZ2whB dzjUUzeQc9DIYtmcViBVTvBYXcH RAcetHeyZ2aoJM7cDhiXTDbcuSn ZCSkWJGubmIdxEYrRtRhFNC4zpZ jJ3ApcE2srP7dC5zkAtSjwS8pcS uvwIMzA1ecgF7eAbSUriXdyHbbR 5x4TSEhSYYyCPH2JOSsTbY7b8Xx oOTzauFskYEwFGJzAHX3kdEvsuB anb26VMtyQ5BcCUDmRB9iTT9nm9 TgEEzaj2whz53gx3Q5MSBbGQBux KPdwPimobJuzGmiyNHgUuc3OCpl dmBmrTKgArprrVXtzFZgzRAqm3G jzWBvEOT4AgDdJLjlu5Qwb3vtY7 slHsSsvFLgZ2uuvfKyxWcohbPjl a1vYVezgNVlUCOeHMNoXYVqv75h PAGeMpXnpiAuHbPogh8uimPqE3d hvvUxSsfojtDubu7rMImpjPNyii RrlNMbK2wkfAMBpTP3mCSgR5b1D 5lggTu8OaT3BIEyaUd1BOK5OJxf OOP2dx30zZhoru6fYHV3vMCrhGG hCLIixf01LDRuvqVkvZ49JysnU0 WuIXWylTjkjG39Xspkmm28ASJmq mSaAMmqIJNrSFSrMXXqk42leVF0 ZSByZXBvcnRccGFyXGNmMFxwYXI hJSMgZ4s1v2locmR9xKIaKuKSHP MvlqGqi2A9BGLte35kG4SJRQ0nh F4tREB9yB8rVR9jwByvYANnWEm5 q1noDEDetC1pf7HfMTMnIXyxxED bJWBXQRuKV1MXJoxyVMOuWNfzeO 52KDkpKHAxMnExMyljWzIwXSBcb IlqSWpacR8bWFpETJYOWTXOHJFO FH9UCvMtgq4yct1epDzeuILbWRL eLLF1u6Y3wZLjDCpmrbEanQddCS ZWZ81MIX1BQlJXKO1dbKU9PRIhP DPjZENexPfqKHunvwCsSA1gqJq3 UABvVnCmyFO3fUGiZ2NgbPKpZOZ jlFtbZVEmeMMyhQNzZL33ZSSfo8 t0cFMZKK9BG3BzWP7zCMVjwdOgE SSomHndr2YrQ5BhqBFbu4RcXFUs weUdeBsfAJHpjq4iUHlzpE4wWVD tTCMnQRJpp4OrGKOrd7LnsNIeBI TnFNDvrDl6bCXcPyIkjzC3XY90s PXsDAapjvDkvuFjdFtbHIWzmE62 JKExPIShwWmpZLZ1GyaHQEemgrZ mREqzgQGkdLChCIUoOVI8l6E1jB DzZOVxJIIyCDIiZ1YvdKDbFgWgd aQztmEsm56qm7KcWUffkuFcW7qr l30qw85nBYL1ODrqENYcPpLmgAv cMMItc07nhFo4yATfh24fhXE8DS XaHX13LMzjuUbnoj9iA9mcvgtxH LhaJAtacrMqp8zxyeblsYYfukQj LhTPyXRmZFS9CAAlyv4iv9bvsvj sgTCgdrAgocRfVSOvP0EqEZJjlu 4cv9ZwpNQnSAevrrQpXKJvf9EnK HzbjWmuNJ0sHV9xJPZ5ttVggHSs QDfjB2dkgotbARWmqEKvdAZeRVs lkDinjuB2iOVrzDwrtJVzTR1qJV lvmN8hAQSrs44htEMsf76vEMZHw KUuv6Qwy3ZvWZBhhCNzXLKmBLSf eR1caP4urCOzYJTlckKyhHTlSMK sXS1muXLlePlplspfRYxwsC8cKK MGO4LboTLnOAaoIp5gWYKwxk4= [facility] Work Phone: Performing Lab l4nfiJWrMQSynDUdURIc MlxhbnN jHVZnyLQdZ3VupwrgPIvjWV5qLC 6hpFkmdJDijGMcTHTxGvVmq1jat 630aSFvj0obOXLVyqenmEv8oIjl K55gp9P8CtxaL83yvUPlZMK4FQF rGINbvXWsMCRjDSK2QYKjzWVgZ2 wlBKLmHX0omvqpLZgkUIqjQKRrx WK8DYHurIUtJ8GxMSAuNChgXBKb xue0AyBwJh3ivBQhhXbdXTicG0t rcN9vKvI5RPjzF5cjnM2fWPu8RH asXZNfaJI6yhO2SPBfhQCoV2Tfh H3dONOjHK6ctde2k9rhDYN9ETyl HGFjBfO7mmS2HXTtiEZwMHaosFU dguftrgZaFVZeLLgrp6P5eYVrfU 35PRTuuzK7DLQof80rgMEjNh5uv KUwZEM7NrKHp7DtgyIFUQ0byuGl JPrrl7PxzKYlHGhbKo3sZKLkkxs nDQLyNGmjt93iI6AdHDXrlKDHpn CqpZSkZVDtdk4jFH8KWYN2TnF1U XWyO0gJZVFhJlMBMTI4XCV8O7fj IQBvNNWpwuVIXPFzqwV6h1Y8QWI tprObnE0eXdHJsbywPMFzUCVinE FuLCBNRFxwYXJ9 [facility] Work Phone: [facility] Work Phone: MYELOID NGS PANEL BONE MARRO WOrdered By: Alla Norman on 07-30-2024 MYELOID NGS PANEL BONE MARROW Myeloid NGS Panel Bone Marrow Laboratory Accession Number: [id number] Result: Please see linked document and/or separate report for full result when available. 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 Twenty cells analyzed showed a 46,XY,inv(9)(p12q13) karyotype. The pericentric inversion of chromosome 9 is a benign, constitutional variant with no clinical significance. There was no significant numerical chromosome abnormality and no structural change detected within the limits of resolution. The analysis in May 2022 also showed a normal, male karyotype. Clinical and pathologic correlation is recommended. Interpretation performed by Philip De Oliveira, PhD, FACMG Performed by [facility] ([id number]), Division of Laboratory Medicine Manuel Renteria Department of Pathology & Laboratory Medicine, [facility] [place] [address] [place] [address] Toll free: [facility] CBC W Auto Differential pane l (Bld)on 07-28-2024 Basophils (Bld) [#/Vol] 0.04 10*3/uL Normal <0.11 [facility] Comment on above: Order Comment: Speci men Type: BLOOD SPECIMENOrdering Facility: [facility] Address: [address] [place] [address] Performed By: #### 5 7021-8 ####[facility] [place] LABCLIA [id number] [place] [address] [place] Basophils/100 WBC (Bld) 0.7 % Normal [facility] Comment on above: Order Comment: Speci men Type: BLOOD SPECIMENOrdering Facility: [facility] Address: [address] [place] [address] Performed By: #### 5 7021-8 ####[facility] [place] LABCLIA [id number] [place] [address] [place] Differential cell count method Nom (Bld) Auto Normal [facility] Comment on above: Order Comment: Speci men Type: BLOOD SPECIMENOrdering Facility: [facility] Address: [address] [place] [address] Performed By: #### 5 7021-8 ####[facility] [place] LABCLIA [id number] [place] [address] [place] Eosinophils (Bld) [#/Vol] 10*3/uL Normal <0.46 [facility] Comment on above: Order Comment: Speci men Type: BLOOD SPECIMENOrdering Facility: [facility] Address: [address] [place] [address] Performed By: #### 5 7021-8 ####[facility] [place] LABCLIA [id number] [place] [address] [place] Eosinophils/100 WBC (Bld) 0.2 % Normal [facility] Comment on above: Order Comment: Speci men Type: BLOOD SPECIMENOrdering Facility: [facility] Address: [address] [place] [address] Performed By: #### 5 7021-8 ####[facility] [place] LABCLIA [id number] [facility] [place] [address] [place] Erythrocyte distribution width (RBC) [Ratio] 16.6 % High 11.5-15.0 [facility] Comment on above: Order Comment: Speci men Type: BLOOD SPECIMENOrdering Facility: [facility] Address: [address] [place] [address] Performed By: #### 5 7021-8 ####[facility] LABCLIA [id number] [facility] [place] [address] [place] Hematocrit (Bld) [Volume fraction] 20.3 % Low 39.0-51.0 [facility] Comment on above: Order Comment: Speci men Type: BLOOD SPECIMENOrdering Facility: [facility] Address: [address] [place] [address] Performed By: #### 5 7021-8 ####[facility] [place] LABCLIA [id number] [facility], [place] [address] [place] Hemoglobin (Bld) [Mass/Vol] 6.6 g/dL Low 13.0-17.0 [facility] Comment on above: Order Comment: Speci men Type: BLOOD SPECIMENOrdering Facility: [facility] Address: [address] [place] [address] Performed By: #### 5 7021-8 ####[facility] [place] LABCLIA [id number] [facility] [place] [address] [facility] [place] Immature granulocytes (Bld) [#/Vol] 0.05 10*3/uL Normal <0.10 [facility] Comment on above: Order Comment: Speci men Type: BLOOD SPECIMENOrdering Facility: [facility] Address: [address] [place] [address] Performed By: #### 5 7021-8 ####[facility] [place] LABCLIA [id number] [place] [address] [facility] Immature granulocytes/100 WBC (Bld) 0.8 % Normal [facility] Comment on above: Order Comment: Speci men Type: BLOOD SPECIMENOrdering Facility: [facility] Address: [address] [place] [address] Performed By: #### 5 7021-8 ####[facility] [place] LABCLIA [id number] [place] [address] [place] [facility] Lymphocytes (Bld) [#/Vol] 2.76 10*3/uL Normal 1.00-4.00 [facility] Comment on above: Order Comment: Speci men Type: BLOOD SPECIMENOrdering Facility: [facility] Address: [address] [place] [address] Performed By: #### 5 7021-8 ####[facility] [place] LABCLIA [id number] [place] [id number] [facility] Lymphocytes/100 WBC (Bld) 46.5 % Normal [facility] Comment on above: Order Comment: Speci men Type: BLOOD SPECIMENOrdering Facility: [facility] Address: [address] [place] [address] Performed By: #### 5 7021-8 ####[facility] [place] LABCLIA [id number] [place] [address] [place] MCH (RBC) [Entitic mass] 28.3 pg Normal 26.0-34.0 [facility] Comment on above: Order Comment: Speci men Type: BLOOD SPECIMENOrdering Facility: [facility] Address: [address] [place] [address] Performed By: #### 5 7021-8 ####[facility] [place] LABCLIA [id number] [place] [address] [facility] MCHC (RBC) [Mass/Vol] 32.5 g/dL Normal 30.5-36.0 [facility] Comment on above: Order Comment: Speci men Type: BLOOD SPECIMENOrdering Facility: [facility] Address: [address] [place] [address] Performed By: #### 5 7021-8 ####[facility] [place] LABCLIA [id number] [place] [address] [place] MCV (RBC) [Entitic vol] 87.1 fL Normal 80.0-100.0 [facility] Comment on above: Order Comment: Speci men Type: BLOOD SPECIMENOrdering Facility: [facility] Address: [address] [place] [address] Performed By: #### 5 7021-8 ####[facility] [place] LABCLIA [id number] [facility] [address] [place] Monocytes (Bld) [#/Vol] 0.69 10*3/uL Normal <0.87 [facility] Comment on above: Order Comment: Speci men Type: BLOOD SPECIMENOrdering Facility: [facility] Address: [address] [place] [address] Performed By: #### 5 7021-8 ####[facility] [place] LABCLIA [id number] [place] [address] [place] Monocytes/100 WBC (Bld) 11.6 % Normal [facility] Comment on above: Order Comment: Speci men Type: BLOOD SPECIMENOrdering Facility: [facility] Address: [address] [place] [address] Performed By: #### 5 7021-8 ####[facility] [place] LABCLIA [id number] [place] [address] [place] Neutrophils (Bld) [#/Vol] 2.39 10*3/uL Normal 1.45-7.50 [facility] Comment on above: Order Comment: Speci men Type: BLOOD SPECIMENOrdering Facility: [facility] Address: [address] [place] [address] Performed By: #### 5 7021-8 ####[facility] [place] LABCLIA [id number] [place] [address] [place] Neutrophils/100 WBC (Bld) 40.2 % Normal [facility] Comment on above: Order Comment: Speci men Type: BLOOD SPECIMENOrdering Facility: [facility] Address: [address] [place] [address] Performed By: #### 5 7021-8 ####[facility] [place] LABCLIA [id number] [place] [address] [place] Nucleated RBC (Bld) [#/Vol] Normal [facility] Comment on above: Order Comment: Speci men Type: BLOOD SPECIMENOrdering Facility: [facility] Address: [address] [place] [address] Performed By: #### 5 7021-8 ####[facility] [place] LABCLIA [id number] [facility] [place] [address] [place] Nucleated RBC/100 WBC (Bld) [Ratio] Normal [facility] Comment on above: Order Comment: Speci men Type: BLOOD SPECIMENOrdering Facility: [facility] Address: [address] [place] [address] Performed By: #### 5 7021-8 ####[facility] [place] LABCLIA [id number] [facility] [place] [address] [place] Platelet mean volume (Bld) [Entitic vol] 11.0 fL Normal 9.0-12.7 [facility] Comment on above: Order Comment: Speci men Type: BLOOD SPECIMENOrdering Facility: [facility] Address: [address] [place] [address] Performed By: #### 5 7021-8 ####[facility] [place] LABCLIA [id number] [facility] [place] [address] [place] Platelets (Bld) [#/Vol] 122 10*3/uL Low 150-400 [facility] Comment on above: Order Comment: Speci men Type: BLOOD SPECIMENOrdering Facility: [facility] Address: [address] [place] [address] Performed By: #### 5 7021-8 ####[facility] [place] LABCLIA [id number] [place] [address] [place] RBC (Bld) [#/Vol] 2.33 10*6/uL Low 4.20-6.00 [facility] Comment on above: Order Comment: Speci men Type: BLOOD SPECIMENOrdering Facility: [facility] Address: [address] [place] [address] Performed By: #### 5 7021-8 ####[facility] [place] LABCLIA [id number] [place] [address] [facility] WBC (Bld) [#/Vol] 5.94 10*3/uL Normal 3.70-11.00 [facility] Comment on above: Order Comment: Speci men Type: BLOOD SPECIMENOrdering Facility: [facility] Address: [address] [place] [address] Performed By: #### 5 7021-8 ####[facility] [place] LABCLIA [id number] [place] [address] [facility] TYPE + SCREENon 07-28-2024 ABO B Normal [facility] Comment on above: Order Comment: Speci men Type: BLOOD SPECIMENOrdering Facility: [facility] Address: [address] [place] [address] Performed By: #### T SCR ####[facility] BLOOD BANKCLIA [id number] [address] Rh Nom (Bld) Positive Normal [facility] Comment on above: Order Comment: Speci men Type: BLOOD SPECIMENOrdering Facility: [facility] Address: [address] [place] [address] Performed By: #### T SCR ####[facility] BLOOD BANKCLIA [id number] [address] TYPE AND SCREEN EXPIRATION 07/31/2024 23:59 Normal [facility] Comment on above: Order Comment: Speci men Type: BLOOD SPECIMENOrdering Facility: [facility] Address: [address] [place] [id number] Performed By: #### T SCR ####[facility] BLOOD BANKCLIA [id number] [place] [address] [facility] 36on 07-27-2024 36 Noted. Message sent to PHIL Barros. No further orders at this time. Normal [facility] 36 Noted. No need to chanel ve him come back for redraw. We can await labs we have and discuss at next appt Carla Spears RN to Nh (Selected Message) [place] 07/27/24 11:30 AM Please see message and advise, thanks Carla Spears RN [place] 07/27/24 11:29 AM Note Noted. Message sent to . 07/27/24 11:28 AM Fiorella Murdock MA routed this conversation to [facility] Clinical Director Of Employer Services MD Fiorella Coon MA VE 07/27/24 11:27 AM Note Zinc and Copper tests where Canceled. Send outs called me and stated that I did not spin tubes properly. New Store Protection Specialist in Send outs. She states that the way I have been sending these tests is incorrect and they need redrawn. DO NOT spin them and I am [facility]royal blue[facility] Do you want these test redrawn?? Or wait till he comes back in to see you? Thank You José Miguel : ) [facility] 36 Noted. Message sent to . Normal [facility] 36 Zinc and Copper test s where Canceled. Send outs called me and stated that I did not spin tubes properly. New Store Protection Specialist in Send outs. She states that the way I have been sending these tests is incorrect and they need redrawn. DO NOT spin them and I am to send these [facility]royal blue[facility] Do you want these test redrawn?? Or wait till he comes back in to see you? Thank You José Miguel : ) [facility] DNA EXTRACTION BONE MARROW ( BUFFY COAT)on 07-25-2024 DNA Extraction Bone Marrow (Buffy Coat) This specimen was received and successfully processed for future DNA purification should molecular testing be needed. Specimens will be available for 3 years from date of collection. To order testing on this specimen for [facility] patients, please place an [facility] order for DNA and RNA Clinical Testing ([id number]). To order testing for patients outside of the [facility] system, please request DNA and RNA for Clinical Testing, order code [id number]. If additional paperwork is required for testing, please send completed forms via secure email to [email or web address]. [facility] CBC W Auto Differential pane l (Bld)Ordered By: Julia Moore on 07-24-2024 Basophils (Bld) [#/Vol] 0 10*3/uL 0.0 - 0.2 10*3/uL [employer] Basophils/100 WBC (Bld) 0.5 % 0.0 - 2.0 % [facility] [employer] Eosinophils (Bld) [#/Vol] 0 10*3/uL 0.0 - 0.5 10*3/uL [employer] Eosinophils/100 WBC (Bld) 0.2 % 0.0 - 6.0 % [employer] Erythrocyte distribution width (RBC) [Ratio] 16.3 % High 11.5 - 15.0 % [facility] [employer] Hematocrit (Bld) [Volume fraction] 20.7 % Low 40.0 - 52.0 % [employer] Hemoglobin (Bld) [Mass/Vol] 7.1 g/dL Low 13.0 - 18.0 g/dL [employer] Immature granulocytes (Bld) [#/Vol] 0 10*3/uL NINF - 0.1 10*3/uL [employer] Immature granulocytes/100 WBC (Bld) 0.9 % 0.0 - 2.0 % [employer] Interpretation and review of laboratory results Abnormal [employer] Lymphocytes (Bld) [#/Vol] 1.7 10*3/uL 1.0 - 4.3 10*3/uL [facility] Lymphocytes/100 WBC (Bld) 37.6 % 15.0 - 45.0 % [employer] MCH (RBC) [Entitic mass] 29.2 pg 26.0 - 34.0 pg [employer] MCHC (RBC) [Mass/Vol] 34.3 % 30.5 - 36.0 % [facility] MCV (RBC) [Entitic vol] 85.2 fL 77.0 - 99.0 fL [facility] Monocytes (Bld) [#/Vol] 0.4 10*3/uL 0.0 - 0.9 10*3/uL [facility] Monocytes/100 WBC (Bld) 10 % 5.0 - 13.0 % [facility] Neutrophils (Bld) [#/Vol] 2.2 10*3/uL 1.8 - 7.5 10*3/uL [facility] Neutrophils/100 WBC (Bld) 50.8 % 38.0 - 82.0 % [facility] Nucleated RBC/100 WBC (Bld) [Ratio] 1.1 % [facility] Platelet mean volume (Bld) [Entitic vol] 11.6 fL 9.0 - 12.7 fL [facility] Platelets (Bld) [#/Vol] 112 10*3/uL Low 140 - 440 10*3/uL [facility] RBC (Bld) [#/Vol] 2.43 10*6/uL Low 4.40 - 5.9 0 10*6/uL [facility] WBC (Bld) [#/Vol] 4.4 10*3/uL 3.6 - 10.7 10*3/uL [facility] CBC WITH AUTO DIFFERENTIALon 07-24-2024 Basophils (Bld) [#/Vol] 0.0 10*3/uL Normal 0.0-0.2 [facility] Comment on above: Performed By: #### Lesly [id number], [id number], QEG474 #### Policy Manager: DARIA SANTIAGO ([id number]) [facility] ([facility]) [address] [place] [address] Basophils/100 WBC (Bld) 0.5 % Normal 0.0-2.0 [facility] Comment on above: Performed By: #### L [id number], [id number], [id number] #### Policy Manager: DARIA SANTIAGO ([id number]) [facility] ([facility]) [address] [place] [address] Eosinophils (Bld) [#/Vol] 0.0 10*3/uL Normal 0.0-0.5 [facility] Comment on above: Performed By: #### L [id number], YIL053, ESC597 #### Policy Manager: DARIA SANTIAGO ([id number]) [facility]) [address] [place] [address] Eosinophils/100 WBC (Bld) 0.2 % Normal 0.0-6.0 [facility] Comment on above: Performed By: #### L [id number], UJX948, DNU855 #### Policy Manager: DARIA SANTIAGO ([id number]) [facility]) [address] [place] [address] Erythrocyte distribution width (RBC) [Ratio] 16.3 % High 11.5-15.0 [facility] Comment on above: Performed By: #### L [id number], EGH372, OSJ092 #### Policy Manager: DARIA SANTIAGO ([id number]) [address] Hematocrit (Bld) [Volume fraction] 20.7 % Low 40.0-52.0 [facility] Comment on above: Performed By: #### L [id number], UCQ356, LUD518 #### Policy Manager: DARIA SANTIAGO ([id number]) [address] Hemoglobin (Bld) [Mass/Vol] 7.1 g/dL Low 13.0-18.0 [facility] Comment on above: Performed By: #### L [id number], JGA474, BZV533 #### Policy Manager: DARIA SANTIAGO ([id number]) [facility]) [address] [place] [address] IMMATURE GRANS % 0.9 % Normal 0.0-2.0 [facility] Comment on above: Performed By: #### L [id number], [id number], PVH356 #### Policy Manager: DARIA SANTIAGO ([id number]) [address] IMMATURE GRANS ABSOLUTE 0.0 10*3/uL Normal <0.1 [facility] Comment on above: Performed By: #### L [id number], NJG508, JPL278 #### Policy Manager: DARIA SANTIAGO ([id number]) [facility]) [address] [place] [address] Lymphocytes (Bld) [#/Vol] 1.7 10*3/uL Normal 1.0-4.3 [facility] Comment on above: Performed By: #### L [id number], EIH258, KTM442 #### Policy Manager: DARIA SANTIAGO ([id number]) [facility]) [address] [place] [address] Lymphocytes/100 WBC (Bld) 37.6 % Normal 15.0-45.0 [facility] Comment on above: Performed By: #### L [id number], FSS938, ZLZ190 #### Policy Manager: DARIA SANTIAGO ([id number]) [facility] ([facility]) [address] [place] [address] MCH (RBC) [Entitic mass] 29.2 pg Normal 26.0-34.0 [facility] Comment on above: Performed By: #### L [id number], OUH171, BGO266 #### Policy Manager: DARIA SANTIAGO ([id number]) [facility]) [address] [place] [address] MCHC 34.3 % Normal 30.5-36.0 [facility] Comment on above: Performed By: #### L [id number], CYN243, HQF444 #### Policy Manager: DARIA SANTIAGO ([id number]) [facility]) [address] [place] [address] MCV (RBC) [Entitic vol] 85.2 fL Normal 77.0-99.0 [facility] Comment on above: Performed By: #### L [id number], DIF033, YZC220 #### Policy Manager: DARIA SANTIAGO ([id number]) [facility]) [address] [place] [address] Monocytes (Bld) [#/Vol] 0.4 10*3/uL Normal 0.0-0.9 [facility] Comment on above: Performed By: #### L [id number], FUQ710, CNS974 #### Policy Manager: DARIA SANTIAGO ([id number]) [facility] ([facility]) [address] [place] [address] Monocytes/100 WBC (Bld) 10.0 % Normal 5.0-13.0 [facility] Comment on above: Performed By: #### L [id number], NRQ800, USQ421 #### Policy Manager: DARIA SANTIAGO ([id number]) [facility]) [address] [place] [address] NEUTROPHILS ABSOLUTE 2.2 10*3/uL Normal 1.8-7.5 [facility] Comment on above: Performed By: #### L [id number], GLR932, LED068 #### Policy Manager: DARIA SANTIAGO ([id number]) [facility] ([facility]) [address] [place] [address] Neutrophils/100 WBC (Bld) 50.8 % Normal 38.0-82.0 [facility] Comment on above: Performed By: #### L [id number], GRF071, YFA140 #### Policy Manager: DARIA SANTIAGO ([id number]) [facility] ([facility]) [address] [place] [address] NRBC 1.1 /100 WBCs Normal 0.0-2.0 [facility] Comment on above: Performed By: #### L [id number], QJZ423, LOG304 #### Policy Manager: DARIA SANTIAGO ([id number]) [facility]) [address] [place] [address] Platelet mean volume (Bld) [Entitic vol] 11.6 fL Normal 9.0-12.7 [facility] Comment on above: Performed By: #### L [id number], DMP860, DVR297 #### Policy Manager: DARIA [id number]) [facility] [address] [place] [address] Platelets (Bld) [#/Vol] 112 10*3/uL Low 140-440 [facility] Comment on above: Performed By: #### L [id number], PUI434, ZZA665 #### Policy Manager: DARIA SANTIAGO ([id number]) [facility] ([facility]) [address] [place] [address] RBC (Bld) [#/Vol] 2.43 10*6/uL Low 4.40-5.90 [facility] Comment on above: Performed By: #### L [id number], OIA384, WOP447 #### Policy Manager: DARIA SANTIAGO ([id number]) [facility] ([facility]) [address] [place] [address] WBC (Bld) [#/Vol] 4.4 10*3/uL Normal 3.6-10.7 [facility] Comment on above: Performed By: #### L [id number], CAP119, JNT708 #### Policy Manager: DARIA SANTIAGO ([id number]) [facility] ([facility]) [address] [place] [address] COMPREHENSIVE METABOLIC PANE Siva 07-24-2024 Albumin [Mass/Vol] 3.3 g/dL Low 3.4-4.8 [facility] Comment on above: Performed By: #### L AB17, LAB89, LAB96, LAB67, LAB68, LAB69 #### Policy Manager: DARIA SANTIAGO ([id number]) [facility] ([facility]) [address] [place] [address] ALP [Catalytic activity/Vol] 119 U/L Normal 40-150 [facility] Comment on above: Performed By: #### L AB17, LAB89, LAB96, LAB67, LAB68, LAB69 #### Policy Manager: DARIA SANTIAGO ([id number]) [facility] ([facility]) [address] [place] [address] ALT [Catalytic activity/Vol] 21 U/L Normal <40 [facility] Comment on above: Performed By: #### L AB17, LAB89, LAB96, LAB67, LAB68, LAB69 #### Policy Manager: DARIA SANTIAGO ([id number]) [facility]) [address] [place] [address] Anion gap [Moles/Vol] 6 mmol/L Normal 3-13 [facility] Comment on above: Performed By: #### L AB17, LAB89, LAB96, LAB67, LAB68, LAB69 #### Policy Manager: DARIA SANTIAGO ([id number]) [facility] ([facility]) [address] [place] [address] AST [Catalytic activity/Vol] 22 U/L Normal <34 [facility] Comment on above: Performed By: #### L AB17, LAB89, LAB96, LAB67, LAB68, LAB69 #### Policy Manager: DARIA SANTIAGO ([id number]) [facility] ([facility]) [address] [place] [address] Bilirubin [Mass/Vol] 0.2 mg/dL Normal <1.2 [facility] Comment on above: Performed By: #### L AB17, LAB89, LAB96, LAB67, LAB68, LAB69 #### Policy Manager: DARIA SANTIAGO ([id number]) [facility] ([facility]) [address] [place] [address] Calcium [Mass/Vol] 9.0 mg/dL Normal 8.8-10.0 [facility] Comment on above: Performed By: #### L AB17, LAB89, LAB96, LAB67, LAB68, LAB69 #### Policy Manager: DARIA SANTIAGO ([id number]) [facility] ([facility]) [address] [place] [address] Chloride [Moles/Vol] 103 mmol/L Normal 98-107 [facility] Comment on above: Performed By: #### L AB17, LAB89, LAB96, LAB67, LAB68, LAB69 #### Policy Manager: DARIA SANTIAGO ([id number]) [facility]) [address] [place] [address] CO2 [Moles/Vol] 24 mmol/L Normal 23-31 [facility] Comment on above: Performed By: #### L AB17, LAB89, LAB96, LAB67, LAB68, LAB69 #### Policy Manager: DARIA SANTIAGO ([id number]) [facility]) [address] [place] [address] Creatinine [Mass/Vol] 1.08 mg/dL Normal 0.72-1.25 [facility] Comment on above: Performed By: #### L AB17, LAB89, LAB96, LAB67, LAB68, LAB69 #### Policy Manager: DARIA SANTIAGO ([id number]) [facility]) [address] [place] [address] GLOMERULAR FILTRATION RATE ML/MIN/1.73 SQ M.PREDICTED 68.9 mL/min/1.73m*2 Normal >60.0 [facility] Comment on above: Result Comment: Calc ulation based on the Chronic Kidney Disease Epidemiology Collaboration (CKD-EPI) equation refit without adjustment for race Performed By: #### L AB17, LAB89, LAB96, LAB67, LAB68, LAB69 #### Policy Manager: DARIA SANTIAGO ([id number]) [facility]) [address] [place] [address] Glucose [Mass/Vol] 215 mg/dL High 82-115 [facility] Comment on above: Performed By: #### L AB17, LAB89, LAB96, LAB67, LAB68, LAB69 #### Policy Manager: DARIA SANTIAGO ([id number]) [facility]) [address] [place] [address] [place] Potassium [Moles/Vol] 4.4 mmol/L Normal 3.5-5.1 [facility] Comment on above: Result Comment: Plas ma potassium values may be up to 0.5 mmol/L lower than serum values. Performed By: #### L AB17, LAB89, LAB96, LAB67, LAB68, LAB69 #### Policy Manager: DARIA SANTIAGO ([phone]) [facility] ([facility]) [address] [place] [address] Protein [Mass/Vol] 6.7 g/dL Normal 6.4-8.3 [facility] Comment on above: Performed By: #### L AB17, LAB89, LAB96, LAB67, LAB68, LAB69 #### Policy Manager: DARIA SANTIAGO ([phone]) [facility] [address] [place] [address] Sodium [Moles/Vol] 133 mmol/L Low 136-145 [facility] Comment on above: Performed By: #### L AB17, LAB89, LAB96, LAB67, LAB68, LAB69 #### Policy Manager: DARIA SANTIAGO ([id number]) [facility] [address] [place] [address] Urea nitrogen [Mass/Vol] 23 mg/dL Normal 9-23 [facility] Comment on above: Performed By: #### L AB17, LAB89, LAB96, LAB67, LAB68, LAB69 #### Policy Manager: DARIA SANTIAGO ([phone]) [facility] - [place] ([facility] [address] [place] [address] Cobalamin (Vitamin B12) [Mas s/Vol]on 07-24-2024 Interpretation and review of laboratory results Normal [facility] Comprehensive metabolic 1998 panelon 07-24-2024 Albumin [Mass/Vol] 3.3 g/dL Low 3.4 - 4.8 g/dL [facility] ALP [Catalytic activity/Vol] 119 U/L 40 - 150 U/L [facility] ALT [Catalytic activity/Vol] 21 U/L NINF - 40 U/L [facility] Anion gap [Moles/Vol] 6 mmol/L 3 - 13 mmol/L [facility] AST [Catalytic activity/Vol] 22 U/L NINF - 34 U/L [facility] Bilirubin [Mass/Vol] 0.2 mg/dL NINF - 1.2 mg/dL [facility] Calcium [Mass/Vol] 9 mg/dL 8.8 - 10. 0 mg/dL [facility] Chloride [Moles/Vol] 103 mmol/L 98 - 10 7 mmol/L [facility] CO2 [Moles/Vol] 24 mmol/L 23 - 31 mmol/L [facility] Creatinine [Mass/Vol] 1.08 mg/dL 0.72 - 1.25 mg/dL [facility] GFR/1.73 sq M.predicted (S/P/Bld) [Vol rate/Area] 68.9 mL/min - PINF [facility] Comment on above: Calculation based on the Chronic Kidney Disease Epidemiology Collaboration (CKD-EPI) equation refit without adjustment for race Glucose [Mass/Vol] 215 mg/dL High 82 - 115 mg/dL [facility] Interpretation and review of laboratory results Abnormal [facility] Potassium [Moles/Vol] 4.4 mmol/L 3.5 - 5.1 mmol/L [facility] Comment on above: Plasma potassium ermias ues may be up to 0.5 mmol/L lower than serum values. Protein [Mass/Vol] 6.7 g/dL 6.4 - 8.3 g/dL [facility] Sodium [Moles/Vol] 133 mmol/L Low 136 - 145 mmol/L [facility] Urea nitrogen [Mass/Vol] 23 mg/dL 9 - 23 mg/dL [facility] FERRITINon 07-24-2024 Ferritin [Mass/Vol] 3521 ng/mL High 22-275 [facility] Comment on above: Result Comment: ERNESTO Garcia COMMENTS: Ferritin levels below 10 ng/mL have been reported as indicative of iron deficiency anemia. Performed By: #### L AB17, LAB89, LAB96, LAB67, LAB68, LAB69 #### Policy Manager: DARIA SANTIAGO ([phone]) [facility] [place] ([facility]) [address] [place] [address] FOLATEon 07-24-2024 FOLATE RESULT 16.9 ng/mL Normal 7.0-31.4 [facility] Comment on above: Performed By: #### L AB17, LAB89, LAB96, LAB67, LAB68, LAB69 #### Policy Manager: DARIA SANTIAGO ([id number]) [facility] [place] ([facility]) [address] [place] [address] Ferritin [Mass/Vol]on 2024 Interpretation and review of laboratory results Abnormal [facility] Ferritin levels belo w 10 ng/mL have been reported as indicative of iron deficiency anemia. [facility] Folate [Mass/Vol]on 07-25-19 Interpretation and review of laboratory results Normal [facility] HAPTOGLOBINon 07-24-2024 HAPTOGLOBIN 218 mg/dL Normal 50-270 [facility] Comment on above: Performed By: #### L AB17, LAB89, LAB96, LAB67, LAB68, LAB69 #### Policy Manager: DARIA SANTIAGO ([id number]) [facility] [place] ([facility]) [address] [place] [address] IG CONCENTRATION, BLOOD (IMM UNOFIXATION ELECTROPHORESIS)on 07-24-2024 IGA, BLOOD 374 mg/dL Normal 85-600 [facility] Comment on above: Order Comment: THIS IS A CARVE-OUT LAB: SPECIMEN MUST BE SENT TO [facility] FOR PROCESSING Performed By: #### L [id number], [id number], [id number] #### Policy Manager: DARIA SANTIAGO ([id number]) [facility] [place] ([facility]) [address] [place] [address] IGG, BLOOD 1114 mg/dL Normal 540-1722 [facility] Comment on above: Order Comment: THIS IS A CARVE-OUT LAB: SPECIMEN MUST BE SENT TO [facility] FOR PROCESSING Performed By: #### L [id number], [id number], [id number] #### Policy Manager: DARIA SANTIAGO ([id number]) [facility] [place] ([facility]) [address] [place] [address] IGM, BLOOD 146 mg/dL Normal 25-265 [facility] Comment on above: Order Comment: THIS IS A CARVE-OUT LAB: SPECIMEN MUST BE SENT TO [facility] FOR PROCESSING Performed By: #### L [id number], [id number], [id number] #### Policy Manager: DARIA SANTIAGO ([id number]) [facility]) [address] [place] [address] IMMUNOFIXATION ELECTROPHORES Leda 07-24-2024 IMMUNOFIXATION ELECTROPHORESIS See Below Normal [facility] Comment on above: Order Comment: THIS IS A CARVE-OUT LAB: SPECIMEN MUST BE SENT TO [facility] FOR PROCESSING Result Comment: A fa int monoclonal IgG kappa protein cannot be excluded. Serum free light chain levels are recommended, if clinically indicated. Performed By: #### L [id number], [id number], [id number] #### Policy Manager: DARIA SANTIAGO ([phone]) [facility] [place] ([facility]) [address] [place] [address] IRON AND TIBCon 07-24-2024 IRON BINDING CAPACITY <303 Normal 250-450 [facility] Comment on above: Performed By: #### L [id number], [id number], [id number] #### Policy Manager: DARIA SANTIAGO ([id number]) [facility] [place] ([facility]) [address] [place] [address] IRON SATURATION >91.7 High 20.0-50.0 [facility] Comment on above: Performed By: #### L [id number], [id number], [id number] #### Policy Manager: DARIA SANTIAGO ([id number]) [facility] [place] ([facility]) [address] [place] [address] IRON, TOTAL 278 ug/dL High 65-175 [facility] Comment on above: Performed By: #### L [id number], [id number], [id number] #### Policy Manager: DARIA SANTIAGO ([id number]) [facility]) [address] [place] [address] Iron and Iron binding capaci ty panelon 07-24-2024 Interpretation and review of laboratory results Abnormal [facility] Iron [Mass/Vol] 278 ug/dL High 65 - 175 ug/dL [facility] Iron binding capacity [Mass/Vol] ug/dL 250 - 450 ug/dL [facility] Iron saturation [Mass fraction] % High 20.0 - 50.0 % [facility] LACTATE DEHYDROGENASEon 06-27 LDH [Catalytic activity/Vol] 152 U/L Normal 125-220 [facility] Comment on above: Performed By: #### L AB17, LAB89, LAB96, LAB67, LAB68, LAB69 #### Policy Manager: DARIA SANTIAGO ([id number]) [facility] [place] ([facility]) [address] [place] [address] LDH Lactate to pyruvate reac tion [Catalytic activity/Vol]on 07-24-2024 Interpretation and review of laboratory results Normal [facility] Laboratory - Chemistry and C hemistry - challengeon 07-24-2024 Ferritin [Mass/Vol] 3521 ng/mL High 22 - 275 ng/mL [facility] Folate [Mass/Vol] 16.9 ng/mL 7.0 - 31.4 ng/mL [facility] Cobalamin (Vitamin B12) [Mass/Vol] 662 pg/mL 213 - 816 pg/mL [facility] LDH Lactate to pyruvate reaction [Catalytic activity/Vol] 152 U/L 125 - 220 U/L [facility] TSH Qn 1.33 m[IU]/L [facility] IgA [Mass/Vol] 374 mg/dL 85 - 600 mg/dL [facility] IgG [Mass/Vol] 1114 mg/dL 540 - 1722 mg/dL [facility] IgM [Mass/Vol] 146 mg/dL 25 - 265 mg/dL [facility] Laboratory - Hematology and Cell countson 07-24-2024 Haptoglobin [Mass/Vol] 218 mg/dL 50 - 270 mg/dL [facility] No Panel Informationon 07-24 Interpretation and review of laboratory results Normal [facility] Interpretation and review of laboratory results Normal [facility] Office Visiton 07-24-2024 Follow-up visit [id number] Oropeza Joss 1945 M Date Provider Department Center 07/24/2024 [id number] YOU [facility] ONC None Family History Problem Relation Age of Onset Thyroid cancer Mother Pulmonary embolism Sister Thyroid cancer Daughter Family Status - Relation Status Age at Mother Father Sister Daughter Alive Level of Service:13089 [place] OFFICE/OUTPATIENT NEW HIGH MDM 60 MINUTES Reason for Visit and Comments: New Patient [542] - Myelodysplastic syndrome, Clonal cytopenia of undetermined significance (CCUS) Normal [facility] Progress Noteon 07-24-2024 Progress Note Sabas You MD [facility] Hematology/Oncology - [facility] [address] [facility] [address] [facility] [address] Dept: [phone] Dept PROBLEM LIST: 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 -03/08/2023 started Luspatercept which was increased to max dose -01/10/2024 = started on Imetelstat via Dr Alka Noriega -Receiving luspatercept and Imetelstat through [facility]/Alka Noriega -07/24/2024 =2nd opinion w/ me 2. Fatty liver Documented on 11/24/2021 abd u/s 3.Iron overload ASSESSMENT AND PLAN: Joss Oropeza is a 79 y.o. male here for 1. MDS: I have reviewed the entire case including the past bone marrow biopsy as well as the interventions taken in the past. 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 I discussed options going forward including pursuing a bone marrow biopsy to further evaluate the disease and evaluate for further clonal evolution. With the worsening platelet count, hypomethylating agent may be indicated. Pt reports a BMBx was done last week at [facility] We discussed all options going forward including second opinion at academic center based on the bone marrow biopsy report versus other interventions etc. -All questions were answered to patient, son/ satisfaction - Labs today and - Follow-up after bone marrow biopsy to discuss next steps On this date, 07/24/24 , I have spent 60 minutes preparing to see the patient, reviewing previous notes and test results, completing clinical documentation as well as with [id number] patient care, performing a medically appropriate examination, counseling / educating the patient/family/caregiver, and ordering medications, tests, or procedures. HPI: Joss Oropeza is a 79 y.o. male who presents here today with MDS Patient with a past medical history of diabetes, dyslipidemia, myelodysplastic syndrome who reported a prodrome of 1 year of weakness and fatigue. He presented with macrocytic anemia and thrombocytopenia in the setting of normal kidney function. Reportedly CT imaging is all negative including a CT of the chest, abdomen pelvis He was admitted in May 2024 with back pain complaints. MRI was obtained and he was then transferred to [place] for rehab services The most recent communication from Dr. Zelaya was on July 09 at which time the hemoglobin was reported at 7.9 and patient was requesting RBC transfusion. Dr. Zelaya plan to hold off with transfusion and repeat labs 1 week from that With each dose of Imetelstat pt reports drop in Hgb. 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 Vaping Use Vaping status: Never Used Substance and Sexual Activity Alcohol use: Yes Comment: rare Drug use: Never Sexual activity: Not on file Other Topics Concern Not on file Social History Narrative Not on file Social Drivers of Health Financial Resource Strain: Low Risk (05/23/2022) Received from [facility] Overall Financial Resource Strain (CARDIA) Difficulty of Paying Living Expenses: Not hard at all Food Insecurity: No Food Insecurity (06/07/2024) Received from [facility] Hunger Vital Sign Worried About Running Out of Food in the Last Year: Never true Ran Out of Food in the Last Year: Never true Transportation Needs: No Transportation Needs (06/07/2024) Received from [facility] PRAPARE - Transportation Lack of Transportation (Medical): No Lack of Transportation (Non-Medical): No Physical Activity: Not on file Stress: Not on file Social Connections: Not on file Intimate Partner Violence: Not on file Housing Stability: Unknown (06/07/2024) Received from [facility] Housing Stability Vital Sign Unable to Pay for Housing in the Last Year: No Number of Times Moved in the Last Year: Not on file Homeless in the Last Year: No Family History[7] Allergies[8] Reviewed medications, allergies, past medical history, social history, family history as above. ROS: Constitutional: No fever, chills, night sweats, weight loss FISH PITCHER: No blurry vision , headaches, focal neurologic deficits HEENT: no oral lesions, sores, dys (more content not included)... Normal [facility] Progress Note Patient seen by Dr Asha blancas Labs drawn 1 stick right arm 2 lav 2 royal blue 4-10ml sst All labs sent to [facility] Normal [facility] RETICULOCYTESon 07-24-2024 Reticulocytes/100 RBC (Bld) 0.78 % Normal [facility] Comment on above: Result Comment: Newb orn < 5% Adults 0.4 - 2.0% Performed By: #### L [id number], [id number], [id number] #### Policy Manager: DARIA SANTIAGO ([id number]) [facility] [place] ([facility]) [address] [place] [address] Reticulocytes panel (Bld)on 07-24-2024 Reticulocytes/100 RBC (Bld) 0.78 % [facility] Comment on above: < 5% Adults 0.4 - 2.0% [facility] SERUM ELECTROPHORESISon 06-27 Albumin [Mass/Vol] 3.6 g/dL Normal 3.1-4.8 [facility] Comment on above: Order Comment: THIS IS A CARVE-OUT LAB: SPECIMEN MUST BE SENT TO [facility] FOR PROCESSING Performed By: #### L [id number] #### Policy Manager: DARIA SANTIAGO ([phone]) [address] ALPHA 1 0.3 g/dL Normal 0.2-0.4 [facility] Comment on above: Order Comment: THIS IS A CARVE-OUT LAB: SPECIMEN MUST BE SENT TO [facility] FOR PROCESSING Performed By: #### L [id number] #### Policy Manager: DARIA SANTIAGO ([id number]) [facility]) [address] [place] [address] ALPHA 2 0.9 g/dL Normal 0.6-1.0 [facility] Comment on above: Order Comment: THIS IS A CARVE-OUT LAB: SPECIMEN MUST BE SENT TO [facility] FOR PROCESSING Performed By: #### L [id number] #### Policy Manager: DARIA SANTIAGO ([phone]) [facility]) [address] [place] [address] BETA 1 0.4 g/dl Normal 0.3-0.6 [facility] Comment on above: Order Comment: THIS IS A CARVE-OUT LAB: SPECIMEN MUST BE SENT TO [facility] FOR PROCESSING Performed By: #### L [id number] #### Policy Manager: DARIA SANTIAGO ([id number]) [facility]) [address] [place] [address] BETA 2 0.4 g/dl Normal 0.3-0.5 [facility] Comment on above: Order Comment: THIS IS A CARVE-OUT LAB: SPECIMEN MUST BE SENT TO [facility] FOR PROCESSING Performed By: #### L [id number] #### Policy Manager: DARIA SANTIAGO ([id number]) [address] GAMMA GLOBULIN 1.1 g/dL Normal 0.4-1.4 [facility] Comment on above: Order Comment: THIS IS A CARVE-OUT LAB: SPECIMEN MUST BE SENT TO [facility] FOR PROCESSING Performed By: #### L [id number] #### Policy Manager: DARIA SANTIAGO ([id number]) [address] PROTEIN FRACTION (INTERPRETATION) IN SER/PLAS BY ELECTROPHORESIS See Below Normal [facility] Comment on above: Order Comment: THIS IS A CARVE-OUT LAB: SPECIMEN MUST BE SENT TO [facility] FOR PROCESSING Result Comment: Ques tionable band present in the gamma region. The band has a concentration of 0.15 g/dL. See NAEL for additional information. Performed By: #### L [id number] #### Policy Manager: DARIA SANTIAGO ([id number]) [address] RELEASED BY Daria Santiago M.D. [facility] Comment on above: Order Comment: THIS IS A CARVE-OUT LAB: SPECIMEN MUST BE SENT TO [facility] FOR PROCESSING Result Comment: This is an appended report. These results have been appended to a previously preliminary verified report. Performed By: #### L [id number] #### Policy Manager: DARIA SANTIAGO ([id number]) [facility]) [address] [place] [address] Performed By: #### L [id number], [id number], [id number] #### Policy Manager: DARIA SANTIAGO ([id number]) [facility]) [address] [place] [address] REVIEWED BY Arlette Guo, Ph.D. Normal [facility] Comment on above: Order Comment: THIS IS A CARVE-OUT LAB: SPECIMEN MUST BE SENT TO [facility] FOR PROCESSING Performed By: #### L [id number] #### Policy Manager: DARIA SANTIAGO ([id number]) [facility]) [address] [place] [address] Performed By: #### L [id number], [id number], ZSP989 #### Policy Manager: DARIA SANTIAGO ([id number]) [facility] [place] ([facility]) [address] [place] [address] THYROID STIMULATING HORMONEo n 07-24-2024 THYROID STIMULATING HORMONE 1.33 uIU/mL Normal 0.35-4.94 [facility] Comment on above: Performed By: #### L [id number], [id number], [id number] #### Policy Manager: DARIA SANTIAGO ([id number]) [facility]) [address] [place] [address] TSH Qnon 07-24-2024 Interpretation and review of laboratory results Normal [facility] VITAMIN B12on 07-24-2024 Cobalamin (Vitamin B12) [Mass/Vol] 662 pg/mL Normal 213-816 [facility] Comment on above: Performed By: #### L AB17, LAB89, LAB96, LAB67, LAB68, LAB69 #### Policy Manager: DARIA SANTIAGO ([id number]) [facility] ([facility]) [address] [place] [address] CBC W Auto Differential pane l (Bld)on 07-23-2024 Basophils (Bld) [#/Vol] 0.03 10*3/uL Normal <0.11 [facility] Comment on above: Order Comment: Speci men Type: BLOOD SPECIMENOrdering Facility: [facility] Address: [address] [place] [address] Performed By: #### 5 7021-8 ####[facility] [place] LABCLIA [id number] [facility] [place] [address] [place] Basophils/100 WBC (Bld) 0.7 % Normal [facility] Comment on above: Order Comment: Speci men Type: BLOOD SPECIMENOrdering Facility: [facility] Address: [address] [place] [address] Performed By: #### 5 7021-8 ####[facility] [place] [facility]IA [id number] [facility] [place] [address] [place] Differential cell count method Nom (Bld) Auto Normal [facility] Comment on above: Order Comment: Speci men Type: BLOOD SPECIMENOrdering Facility: [facility] Address: [address] [place] [address] Performed By: #### 5 7021-8 ####[facility] [place] [facility] [id number] [facility] [place] [address] [place] Eosinophils (Bld) [#/Vol] 10*3/uL Normal <0.46 [facility] Comment on above: Order Comment: Speci men Type: BLOOD SPECIMENOrdering Facility: [facility] Address: [address] [place] [address] Performed By: #### 5 7021-8 ####[facility] [place] [facility]CLIA [id number] [facility] [place] [address] [place] Eosinophils/100 WBC (Bld) 0.2 % Normal [facility] Comment on above: Order Comment: Speci men Type: BLOOD SPECIMENOrdering Facility: [facility] Address: [address] [place] [address] Performed By: #### 5 7021-8 ####[facility] [place] LABCLIA [id number] [place] [address] [place] Erythrocyte distribution width (RBC) [Ratio] 16.5 % High 11.5-15.0 [facility] Comment on above: Order Comment: Speci men Type: BLOOD SPECIMENOrdering Facility: [facility] Address: [address] [place] [address] Performed By: #### 5 7021-8 ####[facility] [place] LABCLIA [id number] [place] [address] [place] Hematocrit (Bld) [Volume fraction] 21.5 % Low 39.0-51.0 [facility] Comment on above: Order Comment: Speci men Type: BLOOD SPECIMENOrdering Facility: [facility] Address: [address] [place] [address] Performed By: #### 5 7021-8 ####[facility] [place] LABCLIA [id number] [place] NetworksYRIA [place] [address] [place] Hemoglobin (Bld) [Mass/Vol] 7.2 g/dL Low 13.0-17.0 [facility] Comment on above: Order Comment: Speci men Type: BLOOD SPECIMENOrdering Facility: [facility] Address: [address] [place] [address] Performed By: #### 5 7021-8 ####[facility] [place] [facility]CLIA [id number] [facility] [place] [address] [place] Immature granulocytes (Bld) [#/Vol] 10*3/uL Normal <0.10 [facility] Comment on above: Order Comment: Speci men Type: BLOOD SPECIMENOrdering Facility: [facility] Address: [address] [place] [address] Performed By: #### 5 7021-8 ####[facility] [place] LABCLIA [id number] [facility] [place] [address] [facility] Immature granulocytes/100 WBC (Bld) 0.4 % Normal [facility] Comment on above: Order Comment: Speci men Type: BLOOD SPECIMENOrdering Facility: [facility] Address: [address] [place] [address] Performed By: #### 5 7021-8 ####[facility] [place] LABCLIA [id number] [address] [place] Lymphocytes (Bld) [#/Vol] 1.95 10*3/uL Normal 1.00-4.00 [facility] Comment on above: Order Comment: Speci men Type: BLOOD SPECIMENOrdering Facility: [facility] Address: [address] [place] [address] Performed By: #### 5 7021-8 ####[facility] [id number] [address] Lymphocytes/100 WBC (Bld) 43.8 % Normal [facility] Comment on above: Order Comment: Speci men Type: BLOOD SPECIMENOrdering Facility: [facility] Address: [address] [place] [address] Performed By: #### 5 7021-8 ####[facility] LAB[facility] [id number] [place], [place] [id number] [place] [address] [place] MCH (RBC) [Entitic mass] 28.8 pg Normal 26.0-34.0 [facility] Comment on above: Order Comment: Speci men Type: BLOOD SPECIMENOrdering Facility: [facility] Address: [address] [place] [address] Performed By: #### 5 7021-8 ####[facility] LAB[facility] [id number] [place] [address] [place] MCHC (RBC) [Mass/Vol] 33.5 g/dL Normal 30.5-36.0 [facility] Comment on above: Order Comment: Speci men Type: BLOOD SPECIMENOrdering Facility: [facility] Address: [address] [place] [address] Performed By: #### 5 7021-8 ####[facility] LABCLIA [id number] [place] [address] [place] MCV (RBC) [Entitic vol] 86.0 fL Normal 80.0-100.0 [facility] Comment on above: Order Comment: Speci men Type: BLOOD SPECIMENOrdering Facility: [facility] Address: [address] [place] [address] Performed By: #### 5 7021-8 ####[facility] LABCLIA [id number] [place] [address] [place] Monocytes (Bld) [#/Vol] 0.49 10*3/uL Normal <0.87 [facility] Comment on above: Order Comment: Speci men Type: BLOOD SPECIMENOrdering Facility: [facility] Address: [address] [place] [address] Performed By: #### 5 7021-8 ####[facility] LABCLIA [id number] [place] [address] [place] Monocytes/100 WBC (Bld) 11.0 % Normal [facility] Comment on above: Order Comment: Speci men Type: BLOOD SPECIMENOrdering Facility: [facility] Address: [address] [place] [address] Performed By: #### 5 7021-8 ####[facility] LABCLIA [id number] [place] [address] [place] Neutrophils (Bld) [#/Vol] 1.95 10*3/uL Normal 1.45-7.50 [facility] Comment on above: Order Comment: Speci men Type: BLOOD SPECIMENOrdering Facility: [facility] Address: [address] [place] [address] Performed By: #### 5 7021-8 ####[facility] LABCLIA [id number] [place] [address] [facility] [place] Neutrophils/100 WBC (Bld) 43.9 % Normal [facility] Comment on above: Order Comment: Speci men Type: BLOOD SPECIMENOrdering Facility: [facility] Address: [address] [place] [address] Performed By: #### 5 7021-8 ####[facility] LABCLIA [id number] [facility] [place] [address] [place] Nucleated RBC (Bld) [#/Vol] Normal [facility] Comment on above: Order Comment: Speci men Type: BLOOD SPECIMENOrdering Facility: [facility] Address: [address] [place] [address] Performed By: #### 5 7021-8 ####[facility] LABCLIA [id number] [facility] [address] [place] Nucleated RBC/100 WBC (Bld) [Ratio] Normal [facility] Comment on above: Order Comment: Speci men Type: BLOOD SPECIMENOrdering Facility: [facility] Address: [address] [place] [address] Performed By: #### 5 7021-8 ####[facility] LABCLIA [id number] [facility] [place] [address] [place] Platelet mean volume (Bld) [Entitic vol] 11.5 fL Normal 9.0-12.7 [facility] Comment on above: Order Comment: Speci men Type: BLOOD SPECIMENOrdering Facility: [facility] Address: [address] [place] [address] Performed By: #### 5 7021-8 ####[facility] LABCLIA [id number] [place] [address] [place] Platelets (Bld) [#/Vol] 98 10*3/uL Low 150-400 [facility] Comment on above: Order Comment: Speci men Type: BLOOD SPECIMENOrdering Facility: [facility] Address: [address] [place] [address] Performed By: #### 5 7021-8 ####[facility]I LABCLIA [id number] [facility] [place] [address] [place] RBC (Bld) [#/Vol] 2.50 10*6/uL Low 4.20-6.00 [facility] Comment on above: Order Comment: Speci men Type: BLOOD SPECIMENOrdering Facility: [facility] Address: [address] [place] [address] Performed By: #### 5 7021-8 ####[facility] LABCLIA [id number] [place] [address] [facility] WBC (Bld) [#/Vol] 4.45 10*3/uL Normal 3.70-11.00 [facility] Comment on above: Order Comment: Speci men Type: BLOOD SPECIMENOrdering Facility: [facility] Address: [address] [place] [address] Performed By: #### 5 7021-8 ####[facility] LABCLIA [id number] [place] [address] [facility] TYPE + SCREENon 07-23-2024 ABO B Normal [facility] Comment on above: Order Comment: Speci men Type: BLOOD SPECIMENOrdering Facility: [facility] Address: [address] [place] [address] Performed By: #### T SCR ####[facility] BLOOD BANKCLIA [id number] [address] Rh Nom (Bld) Positive Normal [facility] Comment on above: Order Comment: Speci men Type: BLOOD SPECIMENOrdering Facility: [facility] Address: [address] [place] [address] Performed By: #### T SCR ####[facility] BLOOD BANKCLIA [id number] [address] TYPE AND SCREEN EXPIRATION 07/26/2024 23:59 Normal [facility] Comment on above: Order Comment: Speci men Type: BLOOD SPECIMENOrdering Facility: [facility] Address: [address] [place] [address] Performed By: #### T SCR ####[facility] BLOOD BANKCLIA [id number] [address] [place] BONE MARROW ANALYSISon 07-21 ADDENDUM 1: Normal [facility] Comment on above: Order Comment: Speci men Type: BONE MARROW SPECIMENOrdering Facility: [facility] Address: [address] [place], [place] [id number] Result Comment: [facility], myeloid NGS demonstrated:RESULT SUMMARY Variants Detected Strong Clinical Significance Potential Clinical Significance 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 Bone marrow findings ([id number], June 2024) show normocellular marrow with dyserythropoiesis including ring sideroblasts and mild megakaryocyte atypia. Karyotyping is normal. 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 Distinction between clonal hematopoiesis associated with myeloid neoplasm and clonal hematopoiesis without overt myeloid neoplasm (CHIP, CCUS, CMUS) requires correlation with the clinical history, marrow morphology and cytogenetics (PMID: 18483814). 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 Recommend clinical correlation.Spool Worker slides including peripheral blood smear, aspirate, biopsy, iron stains and immunohistochemical stains for CD3, CD20, CD138 and kappa/lambda CISH were shown at [facility] hemat[facility] consensus conference via telepathology on 07.31.24 with consensus in the diagnosis (Dr. Espinal, Dr. Yanez).Addendum electronically signed by Carla Storm MD on 07/31/2024 at 1257 EDT Performed By: #### B MRT ####[facility] LABORATORYCLIA [id number] [place] [address] [place] AP DISCLAIMER Normal [facility] Comment on above: Order Comment: Speci men Type: BONE MARROW SPECIMENOrdering Facility: [facility] Address: [address] [place] [address] Result Comment: Freda Pickering Test (LDT) Disclaimer:Performance characteristics of immunohistochemical, immunofluorescent, and chromogenic in-situ hybridization tests have been determined by the performing laboratory within [facility] Pathology and Laboratory Medicine Department ([facility], [facility], [facility], [facility], [facility], [facility], or [facility]) in a manner consistent with CLIA requirements. One or more of these tests may not have been cleared or approved by the FDA. RT-PLM is regulated under CLIA as qualified to perform high-complexity testing. These tests are used for clinical purposes. These should not be regarded as investigational or for research. Positive and negative controls stain appropriately. Performed By: #### B MRT ####[facility] [id number] [address] [place] CASE REPORT Normal [facility] Comment on above: Order Comment: Speci men Type: BONE MARROW SPECIMENOrdering Facility: [facility] Address: [address] [place] [address] Result Comment: Bone Marrow Pathology Report Case: [id number] Provider: Alka Noriega MD Collected: 07/21/2024 12:28 PMOrdering Location: [facility] Hematology/Oncology Received: 07/21/2024 01:43 PMPathologist: Carla Storm MDSpecimens: A) - Bone Marrow, Aspirate, Left, Posterior, Iliac Crest B) - Bone Marrow, Biopsy, Left, Posterior, Iliac Crest C) - Bone Marrow, Clot, Left, Posterior, Iliac Crest Performed By: #### B MRT ####[facility] LABORATORYCLIA [id number] [address] [place] CLINICAL HISTORY Normal [facility] Comment on above: Order Comment: Speci lindsey Type: BONE MARROW SPECIMENOrdering Facility: [facility] Address: [address] [place] [address] Performed By: #### B MRT ####[facility] LABORATORYCLIA [id number] [address] FINAL DIAGNOSIS Normal [facility] Comment on above: Order Comment: Mathew portillo Type: BONE MARROW SPECIMENOrdering Facility: [facility] Address: [address] [place] [address] Result Comment: A, B , and C. Bone marrow, aspirate, biopsy, clot preparation and peripheral smear:- Normocellular marrow with trilineage hematopoiesis, decreased erythroids with dyserythropoiesis including ring sideroblasts, and mild megakaryocyte atypia.- Small population of clonal CD5 negative, CD10 negative B cells detected by flow cytometry.- Small distinct population of CD8 positive, CD16/CD56 T cells detected by flow cytometry. See report below.- Mildly increased polytypic plasma cells.- Increased stainable iron.- Mild (MF 1) reticulin fibrosis.- Peripheral blood normocytic anemia and thrombocytopenia. at 1622 EDT Performed By: #### B MRT ####[facility] LABORATORYCLIA [id number] [address] GROSS DESCRIPTION Normal [facility] Comment on above: Order Comment: Mathew portillo Type: BONE MARROW SPECIMENOrdering Facility: [facility] Address: [address] [place] [address] Result Comment: A. B one Marrow, Aspirate, Left, Posterior, Iliac CrestReceived are air-dried bone marrow aspirate smears. Submitted for light microscopy.B. Bone Marrow, Biopsy, Left, Posterior, Iliac CrestReceived in formalin labeled as bone marrow biopsy left posterior iliac crest is a cylindrical segment of bone measuring 1.6 x 0.2 x 0.2 cm. The specimen is totally submitted in one cassette, following light decalcification.C. Bone Marrow, Clot, Left, Posterior, Iliac CrestReceived in formalin labeled as bone marrow clot left posterior iliac crest are multiple segments of dark red hemorrhagic mateirial aggregating to 1.2 x 1.0 x 0.5 cm. Totally submitted in one cassette.Gross examination performed at [facility], [address] July 22, 2024 2:59 PM Performed By: #### B MRT ####[facility] LABORATORYCLIA [id number] [place] [address] [place] MICROSCOPIC DESCRIPTION Normal [facility] Comment on above: Order Comment: Speci men Type: BONE MARROW SPECIMENOrdering Facility: [facility] Address: [address] [place] [id number] Result Comment: TATA PHERAL BLOOD:CBC (07/21/2024 11:30 AM) Diff: AutoWBC 4.66 k/uL Neutrophils % 45.4Hemoglobin 7.9 g/dL Lymphocytes % 44.4MCV 85.2 fL Monocytes % 9RDW-CV 15.9 % Eosinophils % 0.4Platelet Count 99 k/uL Basophils % 0.2 Immature Granulocytes % 0.6Morphology/Interpretation: Normocytic anemia with slight rouleaux formation and rare nucleated red blood cells. Thrombocytopenia. Mild nuclear segmentation atypia in the granulocytes which are very slightly left shifted.BONE MARROW ASPIRATE:Result Normal Range0 % Blasts 0-20 % Promyelocytes 1-547 % Myelos/Metas/Bands/Segs 32-721 % Eosinophils 1-61 % Basophils 0-16 % Monocytes 0-49 % Erythroid precursors 13-3730 % Lymphocytes 7-236 % Plasma cells 0-25% mast cells Myeloid/Erythro (1.5-4): 5.4 Cells counted: 500. Iron stain result: Increased storage iron with 11% ring sideroblasts. Specimen Quality: Cellular spicules with trilineage hematopoiesis and increased mast cells.. Megakaryocytes: Present. Several naked megakaryocyte nuclei.. Erythropoiesis: Present but decreased occasionally with cytoplasmic vacuoles. Granulopoiesis: Present with progressive maturation. Other: Lymphocytes are small and mature with round nuclei. Mast cells are increased and demonstrate fairly normal morphology with a round central nucleus and abundant cytoplasmic granules. Plasma cells are mildly increased and mildly atypical including slightly enlarged forms.BONE MARROW BIOPSY: Adequacy: Suboptimal and subcortical with fibrocartilaginous tissue. Cellularity: Cellularity is difficult to determine although where marrow elements are present, it appears to be fairly normocellular (10-20% cellular). ME ratio: Appears increased. Hematopoiesis: Trilineage hematopoiesis. Megakaryocytes: Present. Megakaryocyte morphology: Too few megakaryocytes present for adequate evaluation of dysplasia. Rare small forms with high N: C ratio. Lymphoid infiltrate: None identified. Bone trabeculae: Appear within normal limits. Other: Special stain for iron demonstrates increased storage iron. Special stain for PAS demonstrates findings similar to the H&E. Special stain for reticulin demonstrates mild (MF 1) reticulin fibrosis.Immunohistochemical stain for E-cadherin demonstrates decreased erythroids. Immunohistochemical stain for CD34 highlights scattered, single blasts (less than 5%). Immunohistochemical stain for CD117 highlights immature myeloids and mildly increased mast cells. Immunohistochemical stain for CD138 highlights scattered plasma cells (6-9%) which are polytypic for kappa and lambda by CISH. Special stain for Congo red is negative for apple green birefringence. Immunohistochemical stain for CD20 highlights few, scattered small B cells with 1 tiny aggregate on the edge of the tissue. CD3 highlights mildly increased interstitial T cells which are also increased and admixed in the 1 small aggregate.CLOT SECTION: Marrow particles: Small particles with granulocyte predominant trilineage hematopoiesis. Morphology: Particles appear mildly hypocellular (5-10% cellular).ANCILLARY TESTS: Flow cytometry: [facility], flow cytometry demonstrated:InterpretationThere is an immunophenotypically distinct B cell subset (CD19+ CD20+ sIg-; 6% of lymphocytes), in a background of polytypic B cells. Whether this represents the tissue equivalent of a monoclonal B cell lymphocytosis or low level involvement by a systemic lymphoma (e.g. marginal zone lymphoma, lymphoplasmacytic lymphoma, among other lymphoproliferative disorders with a nonspecific CD5/AP78-tkexlcok immunophenotype) requires correlation with the clinical and bone marrow histopathologic findings.There is an immunophenotypically distinct T cell subset (CD3+dim CD8+ CD16/56+; 3% of lymphocytes), in a background of unremarkable T cells. Whether this represents a reactive T cell expansion (e.g. due to underlying autoimmune disorder, inflammation, infection, among other causes) or a T cell lymphoproliferative disorder requires correlation with the clinical and bone marrow histopathologic findings.There is no immunophenotypic evidence of an abnormal blast population. Clinical correlation is recommended.ResultsFlow Cytometry Bone Marrow ImmunophenotypingMarker Normal Cell Type Result (Abnormal B cell subset)CD2 T/NK cells NegativeCD3 T-cells NegativeCD4 T-cell subset NegativeCD5 T-cells NegativeCD7 T/NK-cells NegativeCD8 T-cell subset IzsjypapSJ12 B-cell subset GlbbohwkWT15 Myeloid TgixiigsRN23/56 NK cells AfdclqriWK84 B-cells SowkranpJD93 B-cells AcdxjbriQI92 B-cells subset MfjxxapvTV76 Blast UihjrljyLN95 Taylor-leukocyte SfntsdvaGC491 Dendritic PtsywzehQO596 B-cells Positive (dim)kappa/lambda B-cells NegativeTRBC1 T-cells NegativeFlow cytometric analysis of the bone marrow aspirate reveals that 26% of total events have the CD45 and side scatter properties of lymphocytes. The lymphocytes are composed of a mixture of heterogenous T-cells (77%; CD4:CD8 ratio = 2.73), NK cells (12%) and B-cells (11%). There is a small subset (3% of lymphocytes; 4% of T cells), which is immunophenotypically distinct (CD3+dim/CD16/56+), positive for CD45, CD3 (dim), CD16/56, CD8 (heterogeneous, dim to negative), CD2, CD7, CD5 (dim), show skewed TRBC1 expression (83% of population is negative for TRBC1, and negative for the remaining tested markers as listed above. There is a B cell subset (6% of lymphocytes; 55% of B cells), which shows low forward and low side scattered characteristics and is immunophenotypically distinct (CD19+/CD20+/sIg-), positive for CD45, CD19, CD20, CD200 (dim), and negative for surface immunoglobulin light chains and the remaining tested markers as listed above. The remaining B cells are immunophenotypically unremarkable and polytypic for kappa and lambda surface immunoglobulin light chains. Granulocytes are 56% of total events. Blasts are not increased.Please see complete report Cytogenetics: Per report from [facility] main, cytogenetic analysis demonstrated:DIAGNOSIS: 46,XY,inv(9)(p12q13)c[20]INTERPRETATION: Normal, male karyotypeCOMMENT: Ten metaphase cells were analyzed from the culturesupplemented with GM-CSF and ten metaphase cells were analyzed fromthe 24 hour unstimulated culture. Twenty cells analyzed showed a46,XY,inv(9)(p12q13) karyotype. The pericentric inversion ofchromosome 9 is a benign, constitutional variant with no clinicalsignificance. There was no significant numerical chromosomeabnormality and no structural change detected within the limits ofresolution. Please see complete report. Molecular: Myeloid NGS pending. Performed By: #### B MRT ####[facility] LABORATORYCLIA [id number] [address] [place] BONE MARROW CHROMOSOME ANALo n 07-21-2024 CHROMOSOME BM Normal [facility] Comment on above: Order Comment: Speci men Type: BONE MARROW SPECIMENOrdering Facility: [facility] Address: [address] [place] [address] Result Comment: Freda murray Accession Number: [id number]: ALKA NORIEGAPathologist: Robynurgical Pathology No: [id number] diagnosis: Myelodysplastic syndromeSpecimen Type: Bone marrowReceived Date: 07/22/2024Number of cells counted: 20Number of cells analyzed: 20Number of cells karyotyped: 20Banding resolution: 400Banding method: G-bandingDIAGNOSIS: 46,XY,inv(9)(p12q13)c[20]INTERPRETATION: Normal, male karyotypeCOMMENT: Ten metaphase cells were analyzed from the culturesupplemented with GM-CSF and ten metaphase cells were analyzed fromthe 24 hour unstimulated culture. Twenty cells analyzed showed a46,XY,inv(9)(p12q13) karyotype. The pericentric inversion ofchromosome 9 is a benign, constitutional variant with no clinicalsignificance. There was no significant numerical chromosomeabnormality and no structural change detected within the limits ofresolution.The analysis in May 2022 also showed a normal, male karyotype.Clinical and pathologic correlation is recommended.Interpretation performed by Philip De Oliveira, PhD, FACMGPerformed by [facility]onlecular Pathology and Cytogenomics ([id number]), Division of LaboratoryMedicineRobert Jose [facility] Department of Pathology & Laboratory Medicine,Diagnostics [id number] [place] [address]. [place], [place] [address]Phone: Toll free: Performed By: #### C MERGED WITH [facility] ####[facility] ILLUMINA LIMSCLIA [id number] [address] [place] BRIEF OP NOTon 07-21-2024 BRIEF OP NOT Normal [facility] CBC W Auto Differential pane l (Bld)on 07-21-2024 Basophils (Bld) [#/Vol] [facility] Basophils/100 WBC (Bld) 0.2 % [facility] Differential cell count method Nom (Bld) Auto [facility] Eosinophils (Bld) [#/Vol] [facility] Eosinophils/100 WBC (Bld) 0.4 % [facility] Erythrocyte distribution width (RBC) [Ratio] 15.9 % High 11.5 - 15.0 % [facility] Hematocrit (Bld) [Volume fraction] 23.6 % Low 39.0 - 51.0 % [facility] Hemoglobin (Bld) [Mass/Vol] 7.9 g/dL Low 13.0 - 17.0 g/dL [facility] Immature granulocytes (Bld) [#/Vol] 0.03 10*3/uL [facility] Immature granulocytes/100 WBC (Bld) 0.6 % [facility] Interpretation and review of laboratory results Abnormal [facility] Lymphocytes (Bld) [#/Vol] 2.07 10*3/uL [facility] Lymphocytes/100 WBC (Bld) 44.4 % [facility] MCH (RBC) [Entitic mass] 28.5 pg 26.0 - 34.0 pg [facility] MCHC (RBC) [Mass/Vol] 33.5 g/dL 30.5 - 36.0 g/dL [facility] MCV (RBC) [Entitic vol] 85.2 fL 80.0 - 100.0 fL [facility] Monocytes (Bld) [#/Vol] 0.42 10*3/uL [facility] Monocytes/100 WBC (Bld) 9 % [facility] Neutrophils (Bld) [#/Vol] 2.11 10*3/uL [facility] Neutrophils/100 WBC (Bld) 45.4 % [facility] Nucleated RBC (Bld) [#/Vol] 0.04 10*3/uL High [facility] Nucleated RBC/100 WBC (Bld) [Ratio] 0.9 % /100 WBC [facility] Platelet mean volume (Bld) [Entitic vol] 10.7 fL 9.0 - 12.7 fL [facility] Platelets (Bld) [#/Vol] 99 10*3/uL Low [facility] Comment on above: No clot detected. RBC (Bld) [#/Vol] 2.77 10*6/uL Low 4.20 - 6.0 0 m/uL [facility] WBC (Bld) [#/Vol] 4.66 10*3/uL [facility] Basophils (Bld) [#/Vol] 10*3/uL Normal <0.11 [facility] Comment on above: Order Comment: Speci men Type: BLOOD SPECIMENOrdering Facility: [facility] Address: [address] [place] [address] Performed By: #### 5 7021-8 ####[facility]ORATORYCLIA [id number] [address] [place] Basophils/100 WBC (Bld) 0.2 % Normal [facility] Comment on above: Order Comment: Speci men Type: BLOOD SPECIMENOrdering Facility: [facility] Address: [address] [place] [address] Performed By: #### 5 7021-8 ####[facility] LABORATORYCLIA [id number] [address] [place] Differential cell count method Nom (Bld) Auto Normal [facility] Comment on above: Order Comment: Speci men Type: BLOOD SPECIMENOrdering Facility: [facility] Address: [address] [place] [address] Performed By: #### 5 7021-8 ####[facility] LABORATORYCLIA [id number] [place] [address] [place] Eosinophils (Bld) [#/Vol] 10*3/uL Normal <0.46 [facility] Comment on above: Order Comment: Speci men Type: BLOOD SPECIMENOrdering Facility: [facility] Address: [address] [place] [address] Performed By: #### 5 7021-8 ####[facility]ATORYCLIA [id number] [address] [place] Eosinophils/100 WBC (Bld) 0.4 % Normal [facility] Comment on above: Order Comment: Speci men Type: BLOOD SPECIMENOrdering Facility: [facility] Address: [address] [place] [address] Performed By: #### 5 7021-8 ####[facility] LABORATORYCLIA [id number] [address] [place] Erythrocyte distribution width (RBC) [Ratio] 15.9 % High 11.5-15.0 [facility] Comment on above: Order Comment: Speci men Type: BLOOD SPECIMENOrdering Facility: [facility] Address: [address] [place] [address] Performed By: #### 5 7021-8 ####[facility] LABORATORYCLIA [id number] [address] [place] Hematocrit (Bld) [Volume fraction] 23.6 % Low 39.0-51.0 [facility] Comment on above: Order Comment: Speci men Type: BLOOD SPECIMENOrdering Facility: [facility] Address: [address] [place] [address] Performed By: #### 5 7021-8 ####[facility] LABORATORYCLIA [id number] [address] [place] Hemoglobin (Bld) [Mass/Vol] 7.9 g/dL Low 13.0-17.0 [facility] Comment on above: Order Comment: Speci men Type: BLOOD SPECIMENOrdering Facility: [facility] Address: [address] [place] [address] Performed By: #### 5 7021-8 ####[facility] LABORATORYCLIA [id number] [address] [place] Immature granulocytes (Bld) [#/Vol] 0.03 10*3/uL Normal <0.10 [facility] Comment on above: Order Comment: Speci men Type: BLOOD SPECIMENOrdering Facility: [facility] Address: [address] [place] [address] Performed By: #### 5 7021-8 ####[facility] LABORATORYCLIA [id number] [address] [place] Immature granulocytes/100 WBC (Bld) 0.6 % Normal [facility] Comment on above: Order Comment: Speci men Type: BLOOD SPECIMENOrdering Facility: [facility] Address: [address] [place] [address] Performed By: #### 5 7021-8 ####[facility] LABORATORYCLIA [id number] [address] STATES OF [facility] Lymphocytes (Bld) [#/Vol] 2.07 10*3/uL Normal 1.00-4.00 [facility] Comment on above: Order Comment: Speci men Type: BLOOD SPECIMENOrdering Facility: [facility] Address: [address] [place] [address] Performed By: #### 5 7021-8 ####[facility] LABORATORYCLIA [id number] [address] Lymphocytes/100 WBC (Bld) 44.4 % Normal [facility] Comment on above: Order Comment: Speci men Type: BLOOD SPECIMENOrdering Facility: [facility] Address: [address] [place] [address] Performed By: #### 5 7021-8 ####[facility] LABORATORYCLIA [id number] [address] MCH (RBC) [Entitic mass] 28.5 pg Normal 26.0-34.0 [facility] Comment on above: Order Comment: Speci men Type: BLOOD SPECIMENOrdering Facility: [facility] Address: [address] [place] [address] Performed By: #### 5 7021-8 ####[facility] LABORATORYCLIA [id number] [address] [place] MCHC (RBC) [Mass/Vol] 33.5 g/dL Normal 30.5-36.0 [facility] Comment on above: Order Comment: Speci men Type: BLOOD SPECIMENOrdering Facility: [facility] Address: [address] [place] [address] Performed By: #### 5 7021-8 ####[facility] LABORATORYCLIA [id number] [place] [address] [place] MCV (RBC) [Entitic vol] 85.2 fL Normal 80.0-100.0 [facility] Comment on above: Order Comment: Speci men Type: BLOOD SPECIMENOrdering Facility: [facility] Address: [address] [place] [address] Performed By: #### 5 7021-8 ####[facility] LABORATORYCLIA [id number] [place] [address] [place] Monocytes (Bld) [#/Vol] 0.42 10*3/uL Normal <0.87 [facility] Comment on above: Order Comment: Speci men Type: BLOOD SPECIMENOrdering Facility: [facility] Address: [address] [place] [address] Performed By: #### 5 7021-8 ####[facility] LABORATORYCLIA [id number] [address] [place] Monocytes/100 WBC (Bld) 9.0 % Normal [facility] Comment on above: Order Comment: Speci men Type: BLOOD SPECIMENOrdering Facility: [facility] Address: [address] [place] [address] Performed By: #### 5 7021-8 ####[facility] LABORATORYCLIA [id number] [address] [place] Neutrophils (Bld) [#/Vol] 2.11 10*3/uL Normal 1.45-7.50 [facility] Comment on above: Order Comment: Speci men Type: BLOOD SPECIMENOrdering Facility: [facility] Address: [address] [place] [address] Performed By: #### 5 7021-8 ####[facility] LABORATORYCLIA [id number] [address] [place] Neutrophils/100 WBC (Bld) 45.4 % Normal [facility] Comment on above: Order Comment: Speci men Type: BLOOD SPECIMENOrdering Facility: [facility] Address: [address] [place] [address] Performed By: #### 5 7021-8 ####[facility] LABORATORYCLIA [id number] [place] [address] [place] Nucleated RBC (Bld) [#/Vol] 0.04 10*3/uL High <0.01 [facility] Comment on above: Order Comment: Speci men Type: BLOOD SPECIMENOrdering Facility: [facility] Address: [address] [place] [address] Performed By: #### 5 7021-8 ####[facility] LABORATORYCLIA [id number] [address] [place] Nucleated RBC/100 WBC (Bld) [Ratio] 0.9 /100 WBC Normal [facility] Comment on above: Order Comment: Speci men Type: BLOOD SPECIMENOrdering Facility: [facility] Address: [address] [place] [address] Performed By: #### 5 7021-8 ####[facility] LABORATORYCLIA [id number] [address] [place] Platelet mean volume (Bld) [Entitic vol] 10.7 fL Normal 9.0-12.7 [facility] Comment on above: Order Comment: Speci men Type: BLOOD SPECIMENOrdering Facility: [facility] Address: [address] [place] [address] Performed By: #### 5 7021-8 ####[facility] LABORATORYCLIA [id number] [address] [place] Platelets (Bld) [#/Vol] 99 10*3/uL Low 150-400 [facility] Comment on above: Order Comment: Speci men Type: BLOOD SPECIMENOrdering Facility: [facility] Address: [address] [place] [address] Result Comment: No c lot detected. Performed By: #### 5 7021-8 ####[facility] LABORATORYCLIA [id number] [place] [address] [place] RBC (Bld) [#/Vol] 2.77 10*6/uL Low 4.20-6.00 [facility] Comment on above: Order Comment: Speci men Type: BLOOD SPECIMENOrdering Facility: [facility] Address: [address] [place] [address] Performed By: #### 5 7021-8 ####[facility]ENTERCLIA [id number] [place] [id number] [place] WBC (Bld) [#/Vol] 4.66 10*3/uL Normal 3.70-11.00 [facility] Comment on above: Order Comment: Speci men Type: BLOOD SPECIMENOrdering Facility: [facility] Address: [address] [place] [address] Performed By: #### 5 7021-8 ####[facility]ENTERCLIA [id number] [place] [id number] [facility] [place] CT BONE MARROW BX AND ASPIRA TIONon 07-21-2024 CT BONE MARROW BX AND ASPIRATION Normal [facility] DNA EXTRACTION BONE MARROW ( BUFFY COAT)on 07-21-2024 DNA EXTRACTION BONE MARROW (BUFFY COAT) Normal [facility] Comment on above: Order Comment: Speci men Type: BONE MARROW SPECIMENOrdering Facility: [facility] Address: [address] [place] [address] Result Comment: This specimen was received and successfully processed for future DNA purification should molecular testing be needed. Specimens will be available for 3 years from date of collection.To order testing on this specimen for [facility] patients, please place an [facility] order for DNA and RNA Clinical Testing ([id number]). To order testing for patients outside of the [facility] system, please request DNA and RNA for Clinical Testing, order code [id number].If additional paperwork is required for testing, please send completed forms via secure email to . Performed By: #### N UCBUF ####[facility] LIMSCLIA [id number] [address] [place] FLOW CYTOMETRY FOR LEUKEMIA/ LYMPHOMA (FCLL) PERFORMABLEon 07-21-2024 FLOW CYTOMETRY ORDER STATUS Results will be reported under F case ID when completed Normal [facility] Comment on above: Order Comment: Speci men Type: BONE MARROW SPECIMENOrdering Facility: [facility] Address: [address] [place] [address] Performed By: #### F CLLP ####[facility] LABCLIA [id number] [place] [id number] [facility] FLOW CYTOMETRY FOR LEUKEMIA/ LYMPHOMA (FCLL) REFLEXon 07-21-2024 DIAGNOSIS COMMENT Normal [facility] Comment on above: Order Comment: Speci men Type: BONE MARROW SPECIMENOrdering Facility: [facility] Address: [address] [place] [address] Result Comment: This test was developed and its performance characteristics determined by [facility] [place] ([facility]). It has not been cleared or approved by the FDA. -[facility] is regulated under CLIA as qualified to perform high-complexity testing. This test is used for clinical purposes. It should not be regarded as investigational or for research. Performed By: #### F CLLRFLX ####[facility] LABCLIA [id number] [address] [place] [facility] Result Comment: The patient has a history of bone marrow biopsy with erythroid and megakaryocyte atypia and a clinical diagnosis of low-grade myelodysplastic syndrome. The current biopsy demonstrates dyserythropoiesis and a decrease in erythroids.The immature erythroids continue to demonstrate cytoplasmic vacuoles which raise the possibility copper deficiency. Recommend correlation with serum copper levels. Mast cells with unremarkable morphology as well as polytypic plasma cells are increased. Stainable iron is increased.Flow cytometry detected a small population of both clonal CD5 negative, CD10 negative small B cells as well as a distinct population of T cells with skewed TRBC1 expression. An immunostain for CD20 did not detect a significant increase in small B cells. An immunostain for CD3 highlighted a mild increase in interstitial T cells although there is no peripheral blood lymphocytosis. Recommend clinical correlation and follow-up. Recommend correlation with pending myeloid NGS.Dr. Syed Phan reviewed the case and agrees with the diagnosis. Performed By: #### B MRT ####[facility] LABORATORYCLIA [id number] [place] [id number] [place] FINAL PERFORMING LAB Normal [facility] Comment on above: Order Comment: Speci men Type: BONE MARROW SPECIMENOrdering Facility: [facility] Address: [address] [place] [address] Result Comment: Diag nostic interpretation performed at [facility], [address] [place] [address] CLIA# [id number] Director: Frantz Rosas M.D. Performed By: #### F CLLRFLX ####[facility] LABCLIA [id number] [address] Result Comment: Diag nostic interpretation performed at: [facility], [address] [place] [address] CLIA# [id number] Director: Panchito Phelps MD Performed By: #### B MRT ####[facility] LABORATORYCLIA [id number] [address] FLOW CYTOMETRY RESULTS Normal [facility] Comment on above: Order Comment: Speci men Type: BONE MARROW SPECIMENOrdering Facility: [facility] Address: [address] [place] [address] Result Comment: Spec imen type: Bone marrow aspirateMorphology comments: See bone marrow biopsy report ([id number])Viability: 98%Flow Cytometry Bone Marrow ImmunophenotypingMarker Normal Cell Type Result (Abnormal B cell subset)CD2 T/NK cells NegativeCD3 T-cells NegativeCD4 T-cell subset NegativeCD5 T-cells NegativeCD7 T/NK-cells NegativeCD8 T-cell subset WcjivlpfUW65 B-cell subset XbfkvsmqIV25 Myeloid UmzoqqneEF47/56 NK cells MtkmrwioMY26 B-cells BsnbczraNV54 B-cells VgugzskzGL43 B-cells subset CfniecgoAT32 Blast EnobgvrcLZ43 Taylor-leukocyte KxagztagVX056 Dendritic YemdswxoCW809 B-cells Positive (dim)kappa/lambda B-cells NegativeTRBC1 T-cells NegativeFlow cytometric analysis of the bone marrow aspirate reveals that 26% of total events have the CD45 and side scatter properties of lymphocytes. The lymphocytes are composed of a mixture of heterogenous T-cells (77%; CD4:CD8 ratio = 2.73), NK cells (12%) and B-cells (11%). There is a small subset (3% of lymphocytes; 4% of T cells), which is immunophenotypically distinct (CD3+dim/CD16/56+), positive for CD45, CD3 (dim), CD16/56, CD8 (heterogeneous, dim to negative), CD2, CD7, CD5 (dim), show skewed TRBC1 expression (83% of population is negative for TRBC1, and negative for the remaining tested markers as listed above. There is a B cell subset (6% of lymphocytes; 55% of B cells), which shows low forward and low side scattered characteristics and is immunophenotypically distinct (CD19+/CD20+/sIg-), positive for CD45, CD19, CD20, CD200 (dim), and negative for surface immunoglobulin light chains and the remaining tested markers as listed above. The remaining B cells are immunophenotypically unremarkable and polytypic for kappa and lambda surface immunoglobulin light chains. Granulocytes are 56% of total events. Blasts are not increased.KAB/JENNIFER 07/22/2024 Performed By: #### F CLLRFLX ####[facility] LABIA [id number] [place] [address] [place] GROSS DESCRIPTION A. Bone Marrow Normal [facility] Comment on above: Order Comment: Mathew portillo Type: BONE MARROW SPECIMENOrdering Facility: [facility] Address: [address] [place] [address] Result Comment: RECE IVED 4 MLS BONE MARROW IN HEPARIN Performed By: #### F CLLRFLX ####[facility] LABCLIA [id number] [address] [place] INTERPRETATION Normal [facility] Comment on above: Order Comment: Mathew portillo Type: BONE MARROW SPECIMENOrdering Facility: [facility] Address: [address] [place] [address] Result Comment: Ther e is an immunophenotypically distinct B cell subset (CD19+ CD20+ sIg-; 6% of lymphocytes), in a background of polytypic B cells. Whether this represents the tissue equivalent of a monoclonal B cell lymphocytosis or low level involvement by a systemic lymphoma (e.g. marginal zone lymphoma, lymphoplasmacytic lymphoma, among other lymphoproliferative disorders with a nonspecific CD5/VA31-ayuhcjnc immunophenotype) requires correlation with the clinical and bone marrow histopathologic findings.There is an immunophenotypically distinct T cell subset (CD3+dim CD8+ CD16/56+; 3% of lymphocytes), in a background of unremarkable T cells. Whether this represents a reactive T cell expansion (e.g. due to underlying autoimmune disorder, inflammation, infection, among other causes) or a T cell lymphoproliferative disorder requires correlation with the clinical and bone marrow histopathologic findings.There is no immunophenotypic evidence of an abnormal blast population. Clinical correlation is recommended. at 1404 EDT Performed By: #### F CLLRFLX ####[facility] LABCLIA [id number] [place] [address] [place] FLT3 ITD HN BONE MARROWon VALDEZ SIGNOUT PATHOLOGIST [id number] Normal [facility] Comment on above: Order Comment: Mathew portillo Type: BONE MARROW SPECIMENOrdering Facility: [facility] Address: [address] [place] [address] Performed By: #### M YNGEH, RoseliaIM ####[facility] LIMSCLIA [id number] [address] [place] FLT3 ITD HN PANEL BONE MARROW Normal [facility] Comment on above: Order Comment: Mathew portillo Type: BONE MARROW SPECIMENOrdering Facility: [facility] Address: [address] [place] [address] Result Comment: FLT3 Internal Tandem Duplication (ITD) Mutation TestingLaboratory Accession Number: [id number] Internal Tandem Duplication (ITD) mutation: Not DetectedComment:FLT3/ITD is found in approx. 20-30% of adult patients and in approx.5-12% of infants and children with acute myeloid leukemia (AML).FLT3/ITD are most often associated with a normal karyotype, t(15;17),and t(6;9). FLT3/ITD is associated with leukocytosis and a poorprognosis in both children and adults. In cytogenetically normal AML,FLT3/ITD has been associated with a poor prognosis. FLT3 mutationstatus has been reported to change between diagnosis and relapse; thismay relate to the instability of FLT3 mutations.Methodology:DNA is isolated from the specimen provided. Regions of the ADF3hlvtlgaz kinase receptor gene are subjected to the polymerase chainreaction (PCR) using fluorescently labeled forward PCR primers. PCRproducts are analyzed by capillary gel electrophoresis for in-framelength mutations (ITD mutations). This assay can detect ITD mutantalleles which represent approx. 5-10% of the total alleles. The ITDratio is calculated as the area under the curve of the ITD signal tothe area under the curve of the wild type signal.Limitations:Due to the diversity of potential ITD mutations, standardizedcalibration material is not available and calculated ITD peak ratiosmay therefore not be directly comparable across laboratories. As PCRefficiency varies with the size of the insertion mutation, calculatedpeak ratios may not necessarily correlate with percentage of mutantalleles. ITD ratio information should be interpreted with caution, inconjunction with other cytogenetic and molecular findings to assessprognosis within myeloid neoplasms.References:1) Luis MP, Ml P, Violeti E, et al. Mutational landscapeof AML with normal cytogenetics: biological and clinical implications.Blood Rev.2013;27:13-22.2) Mingo MISSAEL, Lanre M, Hassan ME, et al. Prognostic relevance ofintegrated genetic profiling in acute myeloid leukemia. N Engl J Med.2011May 16;366 (12):1079-89.3) Erin H, Blair E, Jessenia Lai, et al. Diagnosis and mangement ofAML in adults: 2017 ELN recommendations from an international expertpanel. Blood [phone] (2017).Disclaimer:This test was developed and its performance characteristics determinedby [facility]'s Pathology and Laboratory Medicine Department. Ithas not been cleared or approved by the FDA. [facility] is regulated under CLIAas certified to perform high-complexity testing. This test is used forclinical purposes. It should not be regarded as investigational or forresearch.Test performed at [facility], [address] [place] [address], [id number]. CLIA Number: [id number] performed at remote location (SSR1) by Jesusita, PhD, HCLD Performed By: #### M Roselia ROCA ####[facility] RAMIREZ JASPAL [id number] [address] [place] Guidance for biopsy of Bone marrowon 07-21-2024 IMPRESSION: Techncharbel elena successful CT-guided bone marrow aspirate and biopsy. Backhaul Driver: PSCLázaro Transcribe Date/Time: Jul 21 2024 1:01P Dictated by : RODRIGO MAGANA MD This examination was interpreted and the report reviewed and electronically signed by: RODRIGO MAGANA MD on Jul 21 2024 1:01PM EST [facility] * * *Final Report* * * DATE OF EXAM: Jul 21 2024 12:42PM [facility] 2218 - CT BONE MARROW BX AND ASPIRATION / PROCEDURE REASON: D46.9, D75.9 * * * * Physician Interpretation * * * * EXAM TITLE: CT GUIDED BONE MARROW ASPIRATION AND BIOPSY DATE: July 21, 2024 at 12:17 PM COMPARISON: None. CLINICAL INDICATION/HISTORY: The patient is a 79-year-old male with thrombocytopenia. CT Radiation dose: Integrated dose-length product (DLP) for this visit = 94 mGy*cm. CT Dose Reduction Employed: mAs or kVp was manually adjusted based on either the patient's size or age. TECHNIQUE: Informed consent was obtained from the patient. The risks, benefits, and alternatives to the procedure were explained. The patient agrees to the procedure. The patient was evaluated for the safety and appropriateness of conscious sedation and the Moderate Sedation Record was completed. The patient was sedated with intravenous Fentanyl and Versed administered by the trained independent radiology nurse observer. The patient's vital signs were monitored during the procedure by the trained independent radiology nurse observer. Total intra-service work encounter time was approximately 0 hours and 15 minutes. The patient was placed in a prone position and with CT guidance an appropriate skin entrance site was identified, prepped, and anesthetized. The bone drill was used to enter the left posterior medial iliac wing. 25 cc of marrow were aspirated and then the bone drill was used to obtain a core specimen. There were no apparent complications. FINDINGS: Marrow aspirated easily. The core specimen appeared adequate. . [facility] Provider, Maurisio Susannah jj [place] - 07/21/2024 * * *Final Report* * * DATE OF EXAM: Jul 21 2024 12:42PM [facility] 2218 - CT BONE MARROW BX AND ASPIRATION / PROCEDURE REASON: D46.9, D75.9 * * * * Physician Interpretation * * * * EXAM TITLE: CT GUIDED BONE MARROW ASPIRATION AND BIOPSY DATE: July 21, 2024 at 12:17 PM COMPARISON: None. CLINICAL INDICATION/HISTORY: The patient is a 79-year-old male with thrombocytopenia. CT Radiation dose: Integrated dose-length product (DLP) for this visit = 94 mGy*cm. CT Dose Reduction Employed: mAs or kVp was manually adjusted based on either the patient's size or age. TECHNIQUE: Informed consent was obtained from the patient. The risks, benefits, and alternatives to the procedure were explained. The patient agrees to the procedure. The patient was evaluated for the safety and appropriateness of conscious sedation and the Moderate Sedation Record was completed. The patient was sedated with intravenous Fentanyl and Versed administered by the trained independent radiology nurse observer. The patient's vital signs were monitored during the procedure by the trained independent radiology nurse observer. Total intra-service work encounter time was approximately 0 hours and 15 minutes. The patient was placed in a prone position and with CT guidance an appropriate skin entrance site was identified, prepped, and anesthetized. The bone drill was used to enter the left posterior medial iliac wing. 25 cc of marrow were aspirated and then the bone drill was used to obtain a core specimen. There were no apparent complications. FINDINGS: Marrow aspirated easily. The core specimen appeared adequate. . IMPRESSION IMPRESSION: Technically successful CT-guided bone marrow aspirate and biopsy. Backhaul Driver: PSCLázaro Transcribe Date/Time: Jul 21 2024 1:01P Dictated by : RODRIGO MAGANA MD This examination was interpreted and the report reviewed and electronically signed by: RODRIGO MAGANA MD on Jul 21 2024 1:01PM EST [facility] Radiology Study observation (narrative) [facility] Guidance for biopsy of Bone marrowOrdered By: [facility]cf Provider on 07-21-2024 [facility] HISTORY PHYSICALon HISTORY PHYSICAL Normal [facility] MYELOID NGS PANEL BONE MARRO Won 07-21-2024 MYELOID NGS PANEL BONE MARROW Normal [facility] Comment on above: Order Comment: Speci men Type: BONE MARROW SPECIMENOrdering Facility: [facility] Address: [address] [place] [address] Result Comment: Myel oid NGS Panel Bone MarrowLaboratory Accession Number: [id number]:Please see linked document and/or separate report for full result whenavailable.Interpretation performed by Tracy Curtis MD Performed By: #### M YRALPH, F3IM ####[facility] LIMSCLIA [id number] [facility] [id number] [place] [address] [place] CBC W Auto Differential pane l (Bld)on 07-16-2024 Basophils (Bld) [#/Vol] 10*3/uL Normal <0.11 [facility] Comment on above: Order Comment: Speci men Type: BLOOD SPECIMENOrdering Facility: [facility] Address: [address] [place] [address] Performed By: #### 5 7021-8 ####[facility] [place] LABCLIA [id number] [place] [address] [place] Basophils/100 WBC (Bld) 0.3 % Normal [facility] Comment on above: Order Comment: Speci men Type: BLOOD SPECIMENOrdering Facility: [facility] Address: [address] [place] [address] Performed By: #### 5 7021-8 ####[facility] [place] LABCLIA [id number] [place] [address] [place] Differential cell count method Nom (Bld) Auto Normal [facility] Comment on above: Order Comment: Speci men Type: BLOOD SPECIMENOrdering Facility: [facility] Address: [address] [place] [address] Performed By: #### 5 7021-8 ####[facility] [place] LABCLIA [id number] [place] [address] [place] Eosinophils (Bld) [#/Vol] 10*3/uL Normal <0.46 [facility] Comment on above: Order Comment: Speci men Type: BLOOD SPECIMENOrdering Facility: [facility] Address: [address] [place] [address] Performed By: #### 5 7021-8 ####[facility] [place] LABCLIA [id number] [facility] [place] [address] [place] Eosinophils/100 WBC (Bld) 0.3 % Normal [facility] Comment on above: Order Comment: Speci men Type: BLOOD SPECIMENOrdering Facility: [facility] Address: [address] [place] [address] Performed By: #### 5 7021-8 ####[facility] [place] LABCLIA [id number] [place] [address] [place] Erythrocyte distribution width (RBC) [Ratio] 16.8 % High 11.5-15.0 [facility] Comment on above: Order Comment: Speci men Type: BLOOD SPECIMENOrdering Facility: [facility] Address: [address] [place] [address] Performed By: #### 5 7021-8 ####[facility] LABCLIA [id number] [place] [address] [place] Hematocrit (Bld) [Volume fraction] 20.1 % Low 39.0-51.0 [facility] Comment on above: Order Comment: Speci men Type: BLOOD SPECIMENOrdering Facility: [facility] Address: [address] [place] [address] Performed By: #### 5 7021-8 ####[facility] [place] LABCLIA [id number] [facility] [place] [address] [place] Hemoglobin (Bld) [Mass/Vol] 6.7 g/dL Low 13.0-17.0 [facility] Comment on above: Order Comment: Speci men Type: BLOOD SPECIMENOrdering Facility: [facility] Address: [address] [place] [address] Performed By: #### 5 7021-8 ####[facility] [place] LABCLIA [id number] [place] [address] [place] Immature granulocytes (Bld) [#/Vol] 10*3/uL Normal <0.10 [facility] Comment on above: Order Comment: Speci men Type: BLOOD SPECIMENOrdering Facility: [facility] Address: [address] [place] [address] Performed By: #### 5 7021-8 ####[facility] [place] LABCLIA [id number] [place] [address] [place] Immature granulocytes/100 WBC (Bld) 0.3 % Normal [facility] Comment on above: Order Comment: Speci men Type: BLOOD SPECIMENOrdering Facility: [facility] Address: [address] [place] [address] Performed By: #### 5 7021-8 ####[facility] [place] LABCLIA [id number] [place] [address] [place] Lymphocytes (Bld) [#/Vol] 2.82 10*3/uL Normal 1.00-4.00 [facility] Comment on above: Order Comment: Speci men Type: BLOOD SPECIMENOrdering Facility: [facility] Address: [address] [place] [address] Performed By: #### 5 7021-8 ####[facility] [place] LABCLIA [id number] [place] [address] [place] Lymphocytes/100 WBC (Bld) 44.3 % Normal [facility] Comment on above: Order Comment: Speci men Type: BLOOD SPECIMENOrdering Facility: [facility] Address: [address] [place] [address] Performed By: #### 5 7021-8 ####[facility] [place] LABCLIA [id number] [place] [address] [place] MCH (RBC) [Entitic mass] 27.9 pg Normal 26.0-34.0 [facility] Comment on above: Order Comment: Speci men Type: BLOOD SPECIMENOrdering Facility: [facility] Address: [address] [place] [address] Performed By: #### 5 7021-8 ####[facility] [place] LABCLIA [id number] [place] [address] [place] [facility] MCHC (RBC) [Mass/Vol] 33.3 g/dL Normal 30.5-36.0 [facility] Comment on above: Order Comment: Speci men Type: BLOOD SPECIMENOrdering Facility: [facility] Address: [address] [place] [address] Performed By: #### 5 7021-8 ####[facility] [place] LABCLIA [id number] [place] [address] [place] [facility] MCV (RBC) [Entitic vol] 83.8 fL Normal 80.0-100.0 [facility] Comment on above: Order Comment: Speci men Type: BLOOD SPECIMENOrdering Facility: [facility] Address: [address] [place] [address] Performed By: #### 5 7021-8 ####[facility] LABCLIA [id number] [place], [place] [id number] [place] [address] [place] Monocytes (Bld) [#/Vol] 0.46 10*3/uL Normal <0.87 [facility] Comment on above: Order Comment: Speci men Type: BLOOD SPECIMENOrdering Facility: [facility] Address: [address] [place] [address] Performed By: #### 5 7021-8 ####[facility] [place] LABCLIA [id number] [place] [address] [facility] Monocytes/100 WBC (Bld) 7.2 % Normal [facility] Comment on above: Order Comment: Speci men Type: BLOOD SPECIMENOrdering Facility: [facility] Address: [address] [place] [address] Performed By: #### 5 7021-8 ####[facility] [place] LABCLIA [id number] [place] [address] [facility] [place] Neutrophils (Bld) [#/Vol] 3.02 10*3/uL Normal 1.45-7.50 [facility] Comment on above: Order Comment: Speci men Type: BLOOD SPECIMENOrdering Facility: [facility] Address: [address] [place] [address] Performed By: #### 5 7021-8 ####[facility] [place] LABCLIA [id number] [place] [address] [place] Neutrophils/100 WBC (Bld) 47.6 % Normal [facility] Comment on above: Order Comment: Speci men Type: BLOOD SPECIMENOrdering Facility: [facility] Address: [address] [place] [address] Performed By: #### 5 7021-8 ####[facility] [place] LABCLIA [id number] [facility] [place] [address] [place] Nucleated RBC (Bld) [#/Vol] Normal [facility] Comment on above: Order Comment: Speci men Type: BLOOD SPECIMENOrdering Facility: [facility] Address: [address] [place] [address] Performed By: #### 5 7021-8 ####[facility] [place] LABCLIA [id number] [facility] [place] [address] [place] Nucleated RBC/100 WBC (Bld) [Ratio] Normal [facility] Comment on above: Order Comment: Speci men Type: BLOOD SPECIMENOrdering Facility: [facility] Address: [address] [place] [address] Performed By: #### 5 7021-8 ####[facility] [place] LABCLIA [id number] [place] [address] [place] Platelet mean volume (Bld) [Entitic vol] 11.0 fL Normal 9.0-12.7 [facility] Comment on above: Order Comment: Speci men Type: BLOOD SPECIMENOrdering Facility: [facility] Address: [address] [place] [address] Performed By: #### 5 7021-8 ####[facility] [place] LABCLIA [id number] [place] [address] [facility] Platelets (Bld) [#/Vol] 86 10*3/uL Low 150-400 [facility] Comment on above: Order Comment: Speci men Type: BLOOD SPECIMENOrdering Facility: [facility] Address: [address] [place] [address] Result Comment: No c lot detected. Performed By: #### 5 7021-8 ####[facility] [place] LABCLIA [id number] [place] [address] [facility] [place] RBC (Bld) [#/Vol] 2.40 10*6/uL Low 4.20-6.00 [facility] Comment on above: Order Comment: Speci men Type: BLOOD SPECIMENOrdering Facility: [facility] Address: [address] [place] [address] Performed By: #### 5 7021-8 ####[facility] LABCLIA [id number] [address] WBC (Bld) [#/Vol] 6.36 10*3/uL Normal 3.70-11.00 [facility] Comment on above: Order Comment: Speci men Type: BLOOD SPECIMENOrdering Facility: [facility] Address: [address] [place] [address] Performed By: #### 5 7021-8 ####[facility] [place] LABCLIA [id number] [place] [id number] [facility] TYPE + SCREENon 07-16-2024 ABO B Normal [facility] Comment on above: Order Comment: Speci men Type: BLOOD SPECIMENOrdering Facility: [facility] Address: [address] [place] [address] Performed By: #### T SCR ####[facility] BLOOD BANKCLIA [id number] [address] Rh Nom (Bld) Positive Normal [facility] Comment on above: Order Comment: Speci men Type: BLOOD SPECIMENOrdering Facility: [facility] Address: [address] [place] [address] Performed By: #### T SCR ####[facility] BLOOD BANKCLIA [id number] [place] [address] [facility] TYPE AND SCREEN EXPIRATION 07/19/2024 23:59 Normal [facility] Comment on above: Order Comment: Speci men Type: BLOOD SPECIMENOrdering Facility: [facility] Address: [facility] [place] [address] Performed By: #### T SCR ####[facility] BLOOD BANKCLIA [id number] [place] [address] [facility] CNOVon 07-15-2024 CNOV Office Visit (SPNMED ) JOSS OROPEZA ([id number]) 1945 M Date Time Provider Department 07/15/24 9:40 AM TRACY FARFAN SPNMED During your visit today, we recorded the following information about you: Pulse Blood pressure Weight Height 102/minute 79/41 95.6 kg 1.765 m Tracy Farfan PA-C 07/15/2024 10:43 AM Signed Tracy Farfan [facility]-C [facility] [address] [address] 07/15/2024 ASSESSMENT AND PLAN: Assessment : Encounter Diagnosis ICD-10-CM 1. Mechanical low back pain M54.59 2. Right foot drop M21.371 Discussion: Mr. Oropeza is a pleasant 79-year-old man accompanied by his oldest son Won today. The patient is here for evaluation of chronic central lumbosacral pain. Getting facet injections by Dr. Cordova and may get an RFA next Getting home PT 1x/wk but admits to not doing much for his HEP EXAM Highlights: Patient is slow to mobilize from sitting to standing posture and uses the arms of his chair to help himself elevate. He does not stand straight up and his gait is unsteady. He uses a walker to help himself get around. He has chronic right foot drop There is diminished reflexes distally but it is equal bilaterally. He is unable to fully straighten out his knees which also obligates him to lean forward as he walks with positive sagittal balance. No other focal strength deficit then foot drop and EHL weakness severely on the RIGHT. Seated SLR's are negative bilaterally There is pain to palpation directly at the lumbosacral junction in the midline and no other posterior pelvic bony prominences are bothersome to him. IMAGING: We reviewed his current lumbar MRI study from May 2024. 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 He also has what appears to be at least partial autofusion at L5-S1 with anterior bone spurring additionally noted. There is old fracture at L1 There is no severe central stenosis or foraminal stenosis. Additional imaging reviewed today included 06/03/2024 CT lumbar. Findings consistent with MRI findings noted above. No recent fracture and issues regarding L3 vertebroplasty also noted. SUMMARY/PLAN: He will continue with conservative treatment with his home physical therapy. I encouraged strong participation in this. He will also continue with Dr. Cordova doing facet injections and possible future RFA's. He seems to think that this is helping somewhat. Finally, he will consider weight loss as an additional help to diminish his overall physical load that he carries when he gets up and moves around. We talked about various types of therapies and medications that he could consider. He probably would not be good candidate for gabapentin or Lyrica partially due to his age and partially due to to the fact that he does not really have much in the way of radiating nerve pain. I would also shy away from muscle relaxant as an option for him because how it could cause additional instability and he may fall and have another fracture. He does not appear to have severe muscle spasm anywhere. Plan : ACTIVITY RECOMMENDATIONS: -The patient is encouraged to avoid bed rest and maintain normal activity. -The patient is encouraged to exercise regularly as tolerated. -The patient advised to avoid prolonged sitting. FOLLOW-UP: -The patient is instructed to return as needed. ADDITIONAL DISCUSSION: -We discussed the difference between hurt vs harm as it relates to chronic pain. This document has been created with the use of voice recognition technology. It may contain inaccuracies: (e.g. misspellings, inaccurate syntax or word sense) that have escaped review. Time spent: 38 minutes today with this patient visit. This includes [id number] time, review of chart records regarding conservative care history, spine-pertinent imaging, and communication/care coordination with referring provider, problem-specific history-taking and counseling/education regarding treatment options. cc: Maynor Andres [address] [facility] [address] Results of consultation to be transmitted via electronic medical record for those providers who practice within [facility] or with access to [employer] via [employer], or via letter. ########################### ########################### ################## CHIEF COMPLAINT: Patient is here for the lower back pain. Has this pain for a month and half, he was lifting something heavy and pain started. Level of the pain is at 7/10. Will have stabbing pain with some movements. Has general weakness. Has flare ups, the last on was about 8 years ago. HPI: see Dis (more content not included)... Normal [facility] CBC W Auto Differential pane l (Bld)on 07-09-2024 Basophils (Bld) [#/Vol] 0.03 10*3/uL [facility] Basophils/100 WBC (Bld) 0.4 % [facility] Differential cell count method Nom (Bld) Auto [facility] Eosinophils (Bld) [#/Vol] [facility] Eosinophils/100 WBC (Bld) 0.1 % [facility] Erythrocyte distribution width (RBC) [Ratio] 16.2 % High 11.5 - 15.0 % [facility] Hematocrit (Bld) [Volume fraction] 23.9 % Low 39.0 - 51.0 % [facility] Hemoglobin (Bld) [Mass/Vol] 7.9 g/dL Low 13.0 - 17.0 g/dL [facility] Immature granulocytes (Bld) [#/Vol] 0.12 10*3/uL [facility] Immature granulocytes/100 WBC (Bld) 1.4 % [facility] Interpretation and review of laboratory results Abnormal [facility] Lymphocytes (Bld) [#/Vol] 2.74 10*3/uL [facility] Lymphocytes/100 WBC (Bld) 32.9 % [facility] MCH (RBC) [Entitic mass] 27.4 pg 26.0 - 34.0 pg [facility] MCHC (RBC) [Mass/Vol] 33.1 g/dL 30.5 - 36.0 g/dL [facility] MCV (RBC) [Entitic vol] 83 fL 80.0 - 100.0 fL [facility] Monocytes (Bld) [#/Vol] 0.47 10*3/uL [facility] Monocytes/100 WBC (Bld) 5.6 % [facility] Neutrophils (Bld) [#/Vol] 4.97 10*3/uL [facility] Neutrophils/100 WBC (Bld) 59.6 % [facility] Nucleated RBC (Bld) [#/Vol] [facility] Nucleated RBC/100 WBC (Bld) [Ratio] [facility] Platelet mean volume (Bld) [Entitic vol] 11.8 fL 9.0 - 12.7 fL [facility] Platelets (Bld) [#/Vol] 75 10*3/uL Low [facility] Comment on above: No clot detected. RBC (Bld) [#/Vol] 2.88 10*6/uL Low 4.20 - 6.0 0 m/uL [facility] WBC (Bld) [#/Vol] 8.34 10*3/uL [facility] Basophils (Bld) [#/Vol] 0.03 10*3/uL Normal <0.11 [facility] Comment on above: Order Comment: Speci men Type: BLOOD SPECIMENOrdering Facility: [facility] Address: [address] [place] [address] Performed By: #### 5 7021-8 ####[facility] [place] LABCLIA [id number] [place] [address] [facility] [place] Basophils/100 WBC (Bld) 0.4 % Normal [facility] Comment on above: Order Comment: Speci men Type: BLOOD SPECIMENOrdering Facility: [facility] Address: [address] [place] [address] Performed By: #### 5 7021-8 ####[facility] [place] LABCLIA [id number] [place] [id number] [facility] Differential cell count method Nom (Bld) Auto Normal [facility] Comment on above: Order Comment: Speci men Type: BLOOD SPECIMENOrdering Facility: [facility] Address: [address] [place] [address] Performed By: #### 5 7021-8 ####[facility] [place] LABCLIA [id number] [place] [address] [place] Eosinophils (Bld) [#/Vol] 10*3/uL Normal <0.46 [facility] Comment on above: Order Comment: Speci men Type: BLOOD SPECIMENOrdering Facility: [facility] Address: [address] [place] [address] Performed By: #### 5 7021-8 ####[facility] [place] LABCLIA [id number] [place] [address] [facility] Eosinophils/100 WBC (Bld) 0.1 % Normal [facility] Comment on above: Order Comment: Speci men Type: BLOOD SPECIMENOrdering Facility: [facility] Address: [address] [place] [address] Performed By: #### 5 7021-8 ####[facility] [place] LABCLIA [id number] [place] [address] [place] Erythrocyte distribution width (RBC) [Ratio] 16.2 % High 11.5-15.0 [facility] Comment on above: Order Comment: Speci men Type: BLOOD SPECIMENOrdering Facility: [facility] Address: [address] [place] [address] Performed By: #### 5 7021-8 ####[facility] [place] LABCLIA [id number] [place] [address] [facility] Hematocrit (Bld) [Volume fraction] 23.9 % Low 39.0-51.0 [facility] Comment on above: Order Comment: Speci men Type: BLOOD SPECIMENOrdering Facility: [facility] Address: [address] [place] [address] Performed By: #### 5 7021-8 ####[facility] LABCLIA [id number] [place] [address] [place] Hemoglobin (Bld) [Mass/Vol] 7.9 g/dL Low 13.0-17.0 [facility] Comment on above: Order Comment: Speci men Type: BLOOD SPECIMENOrdering Facility: [facility] Address: [address] [place] [address] Performed By: #### 5 7021-8 ####[facility] LABCLIA [id number] [place] [address] [facility] Immature granulocytes (Bld) [#/Vol] 0.12 10*3/uL High <0.10 [facility] Comment on above: Order Comment: Speci men Type: BLOOD SPECIMENOrdering Facility: [facility] Address: [address] [place] [address] Performed By: #### 5 7021-8 ####[facility] [place] LABCLIA [id number] [place] [address] [facility] Immature granulocytes/100 WBC (Bld) 1.4 % Normal [facility] Comment on above: Order Comment: Speci men Type: BLOOD SPECIMENOrdering Facility: [facility] Address: [address] [place] [address] Performed By: #### 5 7021-8 ####[facility] LABCLIA [id number] [place] [address] [place] Lymphocytes (Bld) [#/Vol] 2.74 10*3/uL Normal 1.00-4.00 [facility] Comment on above: Order Comment: Speci men Type: BLOOD SPECIMENOrdering Facility: [facility] Address: [address] [place] [address] Performed By: #### 5 7021-8 ####[facility] LABCLIA [id number] [place] [address] [place] [facility] Lymphocytes/100 WBC (Bld) 32.9 % Normal [facility] Comment on above: Order Comment: Speci men Type: BLOOD SPECIMENOrdering Facility: [facility] Address: [address] [place] [address] Performed By: #### 5 7021-8 ####[facility] LABCLIA [id number] [place] [address] [place] MCH (RBC) [Entitic mass] 27.4 pg Normal 26.0-34.0 [facility] Comment on above: Order Comment: Speci men Type: BLOOD SPECIMENOrdering Facility: [facility] Address: [address] [place] [address] Performed By: #### 5 7021-8 ####[facility] LABCLIA [id number] [place] [address] [place] MCHC (RBC) [Mass/Vol] 33.1 g/dL Normal 30.5-36.0 [facility] Comment on above: Order Comment: Speci men Type: BLOOD SPECIMENOrdering Facility: [facility] Address: [address] [place] [address] Performed By: #### 5 7021-8 ####[facility] [place] LABCLIA [id number] [facility] [place] [address] [place] MCV (RBC) [Entitic vol] 83.0 fL Normal 80.0-100.0 [facility] Comment on above: Order Comment: Speci men Type: BLOOD SPECIMENOrdering Facility: [facility] Address: [address] [place] [address] Performed By: #### 5 7021-8 ####[facility] [place] LABCLIA [id number] [place] [address] [place] Monocytes (Bld) [#/Vol] 0.47 10*3/uL Normal <0.87 [facility] Comment on above: Order Comment: Speci men Type: BLOOD SPECIMENOrdering Facility: [facility] Address: [address] [place] [address] Performed By: #### 5 7021-8 ####[facility] [place] LABCLIA [id number] [place] [address] [facility] [place] Monocytes/100 WBC (Bld) 5.6 % Normal [facility] Comment on above: Order Comment: Speci men Type: BLOOD SPECIMENOrdering Facility: [facility] Address: [address] [place] [address] Performed By: #### 5 7021-8 ####[facility] [place] LABCLIA [id number] [place] [address] [place] Neutrophils (Bld) [#/Vol] 4.97 10*3/uL Normal 1.45-7.50 [facility] Comment on above: Order Comment: Speci men Type: BLOOD SPECIMENOrdering Facility: [facility] Address: [address] [place] [address] Performed By: #### 5 7021-8 ####[facility] [place] LABCLIA [id number] [place] [address] [place] Neutrophils/100 WBC (Bld) 59.6 % Normal [facility] Comment on above: Order Comment: Speci men Type: BLOOD SPECIMENOrdering Facility: [facility] Address: [address] [place] [address] Performed By: #### 5 7021-8 ####[facility] [place] LABCLIA [id number] [place] [address] [place] Nucleated RBC (Bld) [#/Vol] Normal [facility] Comment on above: Order Comment: Speci men Type: BLOOD SPECIMENOrdering Facility: [facility] Address: [facility] [place] [place] [address] Performed By: #### 5 7021-8 ####[facility] LABCLIA [id number] [place] [address] [place] Nucleated RBC/100 WBC (Bld) [Ratio] Normal [facility] Comment on above: Order Comment: Speci men Type: BLOOD SPECIMENOrdering Facility: [facility] Address: [address] [place] [address] Performed By: #### 5 7021-8 ####[facility] LABCLIA [id number] [place] [address] [place] Platelet mean volume (Bld) [Entitic vol] 11.8 fL Normal 9.0-12.7 [facility] Comment on above: Order Comment: Speci men Type: BLOOD SPECIMENOrdering Facility: [facility] Address: [address] [place] [address] Performed By: #### 5 7021-8 ####[facility] LABCLIA [id number] [place] [address] [place] Platelets (Bld) [#/Vol] 75 10*3/uL Low 150-400 [facility] Comment on above: Order Comment: Speci men Type: BLOOD SPECIMENOrdering Facility: [facility] Address: [address] [place] [address] Result Comment: No c lot detected. Performed By: #### 5 7021-8 ####[facility] [place] LABCLIA [id number] [place] [address] [facility] [place] RBC (Bld) [#/Vol] 2.88 10*6/uL Low 4.20-6.00 [facility] Comment on above: Order Comment: Speci men Type: BLOOD SPECIMENOrdering Facility: [facility] Address: [address] [place] [address] Performed By: #### 5 7021-8 ####[facility] [place] LABCLIA [id number] [place] [address] [facility] [place] WBC (Bld) [#/Vol] 8.34 10*3/uL Normal 3.70-11.00 [facility] Comment on above: Order Comment: Speci men Type: BLOOD SPECIMENOrdering Facility: [facility] Address: [address] [place] [address] Performed By: #### 5 7021-8 ####[facility] [place] LABCLIA [id number] [place] [address] [facility] TYPE + SCREENon 07-09-2024 ABO B Normal [facility] Comment on above: Order Comment: Speci men Type: BLOOD SPECIMENOrdering Facility: [facility] Address: [address] [place] [address] Performed By: #### T SCR ####[facility] BLOOD BANKCLIA [id number] [address] Rh Nom (Bld) Positive Normal [facility] Comment on above: Order Comment: Speci men Type: BLOOD SPECIMENOrdering Facility: [facility] Address: [address] [place] [address] Performed By: #### T SCR ####[facility] BLOOD BANKCLIA [id number] [address] TYPE AND SCREEN EXPIRATION 07/12/2024 23:59 Normal [facility] Comment on above: Order Comment: Speci men Type: BLOOD SPECIMENOrdering Facility: [facility] Address: [address] [place] [address] Performed By: #### T SCR ####[facility] BLOOD BANKCLIA [id number] [address] CNCOon 07-07-2024 CNCO Letter Text Normal [facility] ED NOTEon 07-02-2024 ED NOTE HNO ID: [id number] Author: KEVIN JOYA RN Service: ? Author Type: Registered Nurse Type: ED Notes Filed: 07/02/2024 11:08 Note Text: Rectal exam per dr nieves with nurse present in room Normal [facility] ED NOTE HNO ID: [id number] Author: KEVIN JOYA, RN Service: ? Author Type: Registered Nurse Type: ED Notes Filed: 07/02/2024 11:03 Note Text: Dr nieves at bedside for exam Normal [facility] ED NOTE HNO ID: [id number] Author: KEVIN JOYA, RN Service: ? Author Type: Registered Nurse Type: ED Notes Filed: 07/02/2024 11:02 Note Text: Pt is currently taking percocet for a back injury. Pt is having problems with constipation, no bm for 2 days. Normal [facility] ED PROV NOTEon 07-02-2024 ED PROV NOTE Normal [facility] CBC W Auto Differential pane l (Bld)on 06-30-2024 Basophils (Bld) [#[facility]Vol] [facility] Basophils/100 WBC (Bld) 0.2 % [facility] Differential cell count method Nom (Bld) Auto [facility] Eosinophils (Bld) [#/Vol] [facility] Eosinophils/100 WBC (Bld) 0 % [facility] Erythrocyte distribution width (RBC) [Ratio] 16.1 % High 11.5 - 15.0 % [facility] Hematocrit (Bld) [Volume fraction] 20 % Low 39.0 - 51.0 % [facility] Hemoglobin (Bld) [Mass/Vol] 7 g/dL Low 13.0 - 17.0 g/dL [facility] Immature granulocytes (Bld) [#/Vol] 0.06 10*3/uL [facility] Immature granulocytes/100 WBC (Bld) 0.9 % [facility] Interpretation and review of laboratory results Abnormal [facility] Lymphocytes (Bld) [#/Vol] 2 10*3/uL [facility] Lymphocytes/100 WBC (Bld) 30.3 % [facility] MCH (RBC) [Entitic mass] 28.3 pg 26.0 - 34.0 pg [facility] MCHC (RBC) [Mass/Vol] 35 g/dL 30.5 - 36.0 g/dL [facility] MCV (RBC) [Entitic vol] 81 fL 80.0 - 100.0 fL [facility] Monocytes (Bld) [#/Vol] 0.55 10*3/uL [facility] Monocytes/100 WBC (Bld) 8.3 % [facility] Neutrophils (Bld) [#/Vol] 3.99 10*3/uL [facility] Neutrophils/100 WBC (Bld) 60.3 % [facility] Nucleated RBC (Bld) [#/Vol] 0.07 10*3/uL High [facility] Nucleated RBC/100 WBC (Bld) [Ratio] 1.1 % /100 WBC [facility] Platelet mean volume (Bld) [Entitic vol] 12.2 fL 9.0 - 12.7 fL [facility] Platelets (Bld) [#/Vol] 67 10*3/uL Low [facility] Comment on above: No clot detected. RBC (Bld) [#/Vol] 2.47 10*6/uL Low 4.20 - 6.0 0 m/uL [facility] WBC (Bld) [#/Vol] 6.61 10*3/uL [facility] Basophils (Bld) [#/Vol] 10*3/uL Normal <0.11 [facility] Comment on above: Order Comment: Speci men Type: BLOOD SPECIMENOrdering Facility: [facility] Address: [address] [place] [address] Performed By: #### 5 7021-8 ####[facility] LABORATORYCLIA [id number] [address] [place] Basophils/100 WBC (Bld) 0.2 % Normal [facility] Comment on above: Order Comment: Speci men Type: BLOOD SPECIMENOrdering Facility: [facility] Address: [address] [place] [address] Performed By: #### 5 7021-8 ####[facility] LABORATORYCLIA [id number] [address] [place] Differential cell count method Nom (Bld) Auto Normal [facility] Comment on above: Order Comment: Speci men Type: BLOOD SPECIMENOrdering Facility: [facility] Address: [address] [place] [address] Performed By: #### 5 7021-8 ####[facility] LABORATORYCLIA [id number] [address] [place] Eosinophils (Bld) [#/Vol] 10*3/uL Normal <0.46 [facility] Comment on above: Order Comment: Speci men Type: BLOOD SPECIMENOrdering Facility: [facility] Address: [address] [place] [address] Performed By: #### 5 7021-8 ####[facility] LABORATORYCLIA [id number] [address] STATES [facility] Eosinophils/100 WBC (Bld) 0.0 % Normal [facility] Comment on above: Order Comment: Speci men Type: BLOOD SPECIMENOrdering Facility: [facility] Address: [address] [place] [address] Performed By: #### 5 7021-8 ####[facility] LABORATORYCLIA [id number] [address] [place] Erythrocyte distribution width (RBC) [Ratio] 16.1 % High 11.5-15.0 [facility] Comment on above: Order Comment: Speci men Type: BLOOD SPECIMENOrdering Facility: [facility] Address: [address] [place] [address] Performed By: #### 5 7021-8 ####[facility] LABORATORYCLIA [id number] [address] [place] Hematocrit (Bld) [Volume fraction] 20.0 % Low 39.0-51.0 [facility] Comment on above: Order Comment: Speci men Type: BLOOD SPECIMENOrdering Facility: [facility] Address: [address] [place] [address] Performed By: #### 5 7021-8 ####[facility] LABORATORYCLIA [id number] [address] [place] Hemoglobin (Bld) [Mass/Vol] 7.0 g/dL Low 13.0-17.0 [facility] Comment on above: Order Comment: Speci men Type: BLOOD SPECIMENOrdering Facility: [facility] Address: [address] [place] [address] Performed By: #### 5 7021-8 ####[facility] LABORATORYCLIA [id number] [address] Immature granulocytes (Bld) [#/Vol] 0.06 10*3/uL Normal <0.10 [facility] Comment on above: Order Comment: Speci men Type: BLOOD SPECIMENOrdering Facility: [facility] Address: [address] [place] [address] Performed By: #### 5 7021-8 ####[facility] LABORATORYCLIA [id number] [address] Immature granulocytes/100 WBC (Bld) 0.9 % Normal [facility] Comment on above: Order Comment: Speci men Type: BLOOD SPECIMENOrdering Facility: [facility] Address: [address] [place] [address] Performed By: #### 5 7021-8 ####[facility] LABORATORYCLIA [id number] [address] Lymphocytes (Bld) [#/Vol] 2.00 10*3/uL Normal 1.00-4.00 [facility] Comment on above: Order Comment: Speci men Type: BLOOD SPECIMENOrdering Facility: [facility] Address: [address] [place] [address] Performed By: #### 5 7021-8 ####[facility] LABORATORYCLIA [id number] [address] Lymphocytes/100 WBC (Bld) 30.3 % Normal [facility] Comment on above: Order Comment: Speci men Type: BLOOD SPECIMENOrdering Facility: [facility] Address: [address] [place] [address] Performed By: #### 5 7021-8 ####[facility] LABORATORYCLIA [id number] [place] [address] [place] MCH (RBC) [Entitic mass] 28.3 pg Normal 26.0-34.0 [facility] Comment on above: Order Comment: Speci men Type: BLOOD SPECIMENOrdering Facility: [facility] Address: [address] [place] [address] Performed By: #### 5 7021-8 ####[facility] LABORATORYCLIA [id number] [address] [place] MCHC (RBC) [Mass/Vol] 35.0 g/dL Normal 30.5-36.0 [facility] Comment on above: Order Comment: Speci men Type: BLOOD SPECIMENOrdering Facility: [facility] Address: [address] [place] [address] Performed By: #### 5 7021-8 ####[facility] LABORATORYCLIA [id number] [address] [place] MCV (RBC) [Entitic vol] 81.0 fL Normal 80.0-100.0 [facility] Comment on above: Order Comment: Speci men Type: BLOOD SPECIMENOrdering Facility: [facility] Address: [address] [place] [address] Performed By: #### 5 7021-8 ####[facility] LABORATORYCLIA [id number] [address] [place] Monocytes (Bld) [#/Vol] 0.55 10*3/uL Normal <0.87 [facility] Comment on above: Order Comment: Speci men Type: BLOOD SPECIMENOrdering Facility: [facility] Address: [address] [place] [address] Performed By: #### 5 7021-8 ####[facility] LABORATORYCLIA [id number] [address] Monocytes/100 WBC (Bld) 8.3 % Normal [facility] Comment on above: Order Comment: Speci men Type: BLOOD SPECIMENOrdering Facility: [facility] Address: [address] [place] [address] Performed By: #### 5 7021-8 ####[facility]ORATORYCLIA [id number] [place] [address] [place] Neutrophils (Bld) [#/Vol] 3.99 10*3/uL Normal 1.45-7.50 [facility] Comment on above: Order Comment: Speci men Type: BLOOD SPECIMENOrdering Facility: [facility] Address: [address] [place] [address] Performed By: #### 5 7021-8 ####[facility] LABORATORYCLIA [id number] [address] [place] Neutrophils/100 WBC (Bld) 60.3 % Normal [facility] Comment on above: Order Comment: Speci men Type: BLOOD SPECIMENOrdering Facility: [facility] Address: [address] [place] [address] Performed By: #### 5 7021-8 ####[facility] LABORATORYCLIA [id number] [address] [place] Nucleated RBC (Bld) [#/Vol] 0.07 10*3/uL High <0.01 [facility] Comment on above: Order Comment: Speci men Type: BLOOD SPECIMENOrdering Facility: [facility] Address: [address] [place] [address] Performed By: #### 5 7021-8 ####[facility] LABORATORYCLIA [id number] [address] [place] Nucleated RBC/100 WBC (Bld) [Ratio] 1.1 /100 WBC Normal [facility] Comment on above: Order Comment: Speci men Type: BLOOD SPECIMENOrdering Facility: [facility] Address: [address] [place] [address] Performed By: #### 5 7021-8 ####[facility] LABORATORYCLIA [id number] [address] [place] Platelet mean volume (Bld) [Entitic vol] 12.2 fL Normal 9.0-12.7 [facility] Comment on above: Order Comment: Speci men Type: BLOOD SPECIMENOrdering Facility: [facility] Address: [address] [place] [address] Performed By: #### 5 7021-8 ####[facility] LABORATORYCLIA [id number] [address] Platelets (Bld) [#/Vol] 67 10*3/uL Low 150-400 [facility] Comment on above: Order Comment: Speci men Type: BLOOD SPECIMENOrdering Facility: [facility] Address: [address] [place] [address] Result Comment: No c lot detected. Performed By: #### 5 7021-8 ####[facility] LABORATORYCLIA [id number] [address] OF [facility] RBC (Bld) [#/Vol] 2.47 10*6/uL Low 4.20-6.00 [facility] Comment on above: Order Comment: Speci men Type: BLOOD SPECIMENOrdering Facility: [facility] Address: [address] [place] [address] Performed By: #### 5 7021-8 ####[facility] LABORATORYCLIA [id number] [address] OF [facility] WBC (Bld) [#/Vol] 6.61 10*3/uL Normal 3.70-11.00 [facility] Comment on above: Order Comment: Speci men Type: BLOOD SPECIMENOrdering Facility: [facility] Address: [address] [place] [address] Performed By: #### 5 7021-8 ####[facility] LABORATORYCLIA [id number] [address] [place] CNOVSPon 06-30-2024 CNOVSP Normal [facility] Comprehensive metabolic 2000 panelon 06-30-2024 Albumin [Mass/Vol] 3.8 g/dL Low 3.9 - 4.9 g/dL [facility] ALP [Catalytic activity/Vol] 123 U/L High 38 - 113 U/L [facility] ALT With P-5'-P [Catalytic activity/Vol] 19 U/L 10 - 54 U/L [facility] Anion gap [Moles/Vol] 13 mmol/L 8 - 15 mmol/L [facility] AST With P-5'-P [Catalytic activity/Vol] 21 U/L 14 - 40 U/L [facility] Bilirubin [Mass/Vol] 0.2 mg/dL 0.2 - 1 .3 mg/dL [facility] Calcium [Mass/Vol] 9.4 mg/dL 8.5 - 10. 2 mg/dL [facility] Chloride [Moles/Vol] 100 mmol/L 98 - 10 7 mmol/L [facility] CO2 [Moles/Vol] 22 mmol/L 22 - 30 mmol/L [facility] Creatinine [Mass/Vol] 0.84 mg/dL 0.73 - 1.22 mg/dL [facility] GFR/1.73 sq M.predicted among non-blacks MDRD (S/P/Bld) [Vol rate/Area] 88 mL/min/{1.73_m2} - PINF [facility] Comment on above: Estimated Glomerular Filtration Rate (eGFR) is calculated using the 2020 CKD-EPI creatinine equation. This equation utilizes serum creatinine, sex, and age as parameters. The creatinine assay has traceable calibration to isotope dilution-mass spectrometry. Refer to KDIGO guidelines for clinical interpretation. In patients with unstable renal function, e.g. those with acute kidney injury, the eGFR may not accurately reflect actual GFR. Glucose [Mass/Vol] 197 mg/dL High 74 - 99 mg/dL [facility] Comment on above: The [place] [employer] (ADA) provides guidance for cutoff values for fasting glucose and random glucose. The ADA defines fasting as no caloric intake for at least 8 hours. Fasting plasma glucose results between 100 to 125 mg/dL indicate increased risk for diabetes (prediabetes). Fasting plasma glucose results greater than or equal to 126 mg/dL meet the criteria for diagnosis of diabetes. In the absence of unequivocal hyperglycemia, results should be confirmed by repeat testing. In a patient with classic symptoms of hyperglycemia or hyperglycemic crisis, random plasma glucose results greater than or equal to 200 mg/dL meet the criteria for diagnosis of diabetes. Reference: Standards of Medical Care in Diabetes 2016, [place] [employer]. Diabetes Care. 2016.39(Suppl 1). Interpretation and review of laboratory results Abnormal [facility] Potassium [Moles/Vol] 4 mmol/L 3.7 - 5.1 mmol/L [facility] Protein [Mass/Vol] 7.2 g/dL 6.3 - 8.0 g/dL [facility] Sodium [Moles/Vol] 135 mmol/L Low 136 - 144 mmol/L [facility] Urea nitrogen [Mass/Vol] 21 mg/dL 9 - 24 mg/dL [facility] Albumin [Mass/Vol] 3.8 g/dL Low 3.9-4.9 [facility] Comment on above: Order Comment: Speci men Type: BLOOD SPECIMENOrdering Facility: [facility] Address: [address] [place] [address] Performed By: #### 2 4323-8 ####[facility] LABORATORYCLIA [id number] [address] OF [facility] ALP [Catalytic activity/Vol] 123 U/L High 38-113 [facility] Comment on above: Order Comment: Speci men Type: BLOOD SPECIMENOrdering Facility: [facility] Address: [address] [place] [address] Performed By: #### 2 4323-8 ####[facility] LABORATORYCLIA [id number] [address] [place] ALT With P-5'-P [Catalytic activity/Vol] 19 U/L Normal 10-54 [facility] Comment on above: Order Comment: Speci men Type: BLOOD SPECIMENOrdering Facility: [facility] Address: [address] [place] [address] Performed By: #### 2 4323-8 ####[facility] LABORATORYCLIA [id number] [address] Anion gap [Moles/Vol] 13 mmol/L Normal 8-15 [facility] Comment on above: Order Comment: Speci men Type: BLOOD SPECIMENOrdering Facility: [facility] Address: [address] [place] [address] Performed By: #### 2 4323-8 ####[facility] LABORATORYCLIA [id number] [place] [address] [place] AST With P-5'-P [Catalytic activity/Vol] 21 U/L Normal 14-40 [facility] Comment on above: Order Comment: Speci men Type: BLOOD SPECIMENOrdering Facility: [facility] Address: [address] [place] [address] Performed By: #### 2 4323-8 ####[facility] LABORATORYCLIA [id number] [place] [address] [place] Bilirubin [Mass/Vol] 0.2 mg/dL Normal 0.2-1.3 [facility] Comment on above: Order Comment: Speci men Type: BLOOD SPECIMENOrdering Facility: [facility] Address: [address] [place] [address] Performed By: #### 2 4323-8 ####[facility] LABORATORYCLIA [id number] [place] [address] [place] Calcium [Mass/Vol] 9.4 mg/dL Normal 8.5-10.2 [facility] Comment on above: Order Comment: Speci men Type: BLOOD SPECIMENOrdering Facility: [facility] Address: [address] [place] [address] Performed By: #### 2 4323-8 ####[facility] LABORATORYCLIA [id number] [place] [address] [place] Chloride [Moles/Vol] 100 mmol/L Normal 98-107 [facility] Comment on above: Order Comment: Speci men Type: BLOOD SPECIMENOrdering Facility: [facility] Address: [address] [place] [address] Performed By: #### 2 4323-8 ####[facility] LABORATORYCLIA [id number] [place] [address] [place] CO2 [Moles/Vol] 22 mmol/L Normal 22-30 [facility] Comment on above: Order Comment: Speci men Type: BLOOD SPECIMENOrdering Facility: [facility] Address: [address] [place] [address] Performed By: #### 2 4323-8 ####[facility] LABORATORYCLIA [id number] [place] [address] [place] Creatinine [Mass/Vol] 0.84 mg/dL Normal 0.73-1.22 [facility] Comment on above: Order Comment: Mathew portillo Type: BLOOD SPECIMENOrdering Facility: [facility] Address: [address] [place] [address] Performed By: #### 2 4323-8 ####[facility] LABORATORYCLIA [id number] [place] [id number] [facility] Creatinine and Glomerular filtration rate.predicted panel (S/P/Bld) 88 mL/min/1.73m??? Normal >=60 [facility] Comment on above: Order Comment: Mathew portillo Type: BLOOD SPECIMENOrdering Facility: [facility] Address: [address] [place] [address] Result Comment: Hsaron mated Glomerular Filtration Rate (eGFR) is calculated using the 2020 CKD-EPI creatinine equation. This equation utilizes serum creatinine, sex, and age as parameters. The creatinine assay has traceable calibration to isotope dilution-mass spectrometry. Refer to KDIGO guidelines for clinical interpretation. In patients with unstable renal function, e.g. those with acute kidney injury, the eGFR may not accurately reflect actual GFR. Performed By: #### 2 4323-8 ####[facility] LABORATORYCLIA [id number] [address] [place] Glucose [Mass/Vol] 197 mg/dL High 74-99 [facility] Comment on above: Order Comment: Mathew portillo Type: BLOOD SPECIMENOrdering Facility: [facility] Address: [address] [place] [address] Result Comment: The [place] [employer] (ADA) provides guidance for cutoff values for fasting glucose and random glucose. The ADA defines fasting as no caloric intake for at least 8 hours. Fasting plasma glucose results between 100 to 125 mg/dL indicate increased risk for diabetes (prediabetes).Fasting plasma glucose results greater than or equal to 126 mg/dL meet the criteria for diagnosis of diabetes. In the absence of unequivocal hyperglycemia, results should be confirmed by repeat testing. In a patient with classic symptoms of hyperglycemia or hyperglycemic crisis, random plasma glucose results greater than or equal to 200 mg/dL meet the criteria for diagnosis of diabetes.Reference: Standards of Medical Care in Diabetes 2016, [employer] [place] [employer]. Diabetes Care. 2016.39(Suppl 1). Performed By: #### 2 4323-8 ####[facility] LABORATORYCLIA [id number] [place] [address] [place] Potassium [Moles/Vol] 4.0 mmol/L Normal 3.7-5.1 [facility] Comment on above: Order Comment: Speci men Type: BLOOD SPECIMENOrdering Facility: [facility] Address: [address] [place] [address] Performed By: #### 2 4323-8 ####[facility] LABORATORYCLIA [id number] [place] [address] [place] Protein [Mass/Vol] 7.2 g/dL Normal 6.3-8.0 [facility] Comment on above: Order Comment: Speci men Type: BLOOD SPECIMENOrdering Facility: [facility] Address: [address] [place] [address] Performed By: #### 2 4323-8 ####[facility] LABORATORYCLIA [id number] [place] [address] [place] Sodium [Moles/Vol] 135 mmol/L Low 136-144 [facility] Comment on above: Order Comment: Speci men Type: BLOOD SPECIMENOrdering Facility: [facility] Address: [address] [place] [address] Performed By: #### 2 4323-8 ####[facility] LABORATORYCLIA [id number] [place] [address] [place] Urea nitrogen [Mass/Vol] 21 mg/dL Normal 9-24 [facility] Comment on above: Order Comment: Speci men Type: BLOOD SPECIMENOrdering Facility: [facility] Address: [address] [place] [address] Performed By: #### 2 4323-8 ####[facility] LABORATORYCLIA [id number] [place] [address] [place] TYPE + SCREENon 06-30-2024 ABO group Nom (Bld) B [facility] Blood group antibody screen Ql Negative [facility] Rh Nom (Bld) Positive [facility] Type and Screen Expiration 07/03/2024 23:59 [facility] ABO B Normal [facility] Comment on above: Order Comment: Speci men Type: BLOOD SPECIMENOrdering Facility: [facility] Address: [address] [place] [address] Performed By: #### T SCR ####[facility] BLOOD BANKCLIA [id number] [place] [id number] [facility] Rh Nom (Bld) Positive Normal [facility] Comment on above: Order Comment: Speci men Type: BLOOD SPECIMENOrdering Facility: [facility] Address: [address] [place] [address] Performed By: #### T SCR ####[facility] BLOOD BANKCLIA [id number] [place] [id number] [facility] TYPE AND SCREEN EXPIRATION 07/03/2024 23:59 Normal [facility] Comment on above: Order Comment: Speci men Type: BLOOD SPECIMENOrdering Facility: [facility] Address: [address] [place] [address] Performed By: #### T SCR ####[facility] BLOOD BANKCLIA [id number] [place] [phone] [facility] 36on 06-20-2024 36 S: Patient called [facility] [place] with complaints of a missing antihypertensive. B: Asymptomatic. Patient was in [facility], and was released last night. Allergies and pharmacy, [facility] in [place], verified. A: Patient reports that while in the TCU he was discharged with an antihypertensive. Denies blurry vision or vision loss, chest pain, difficulty breathing, headache, numbness, or weakness. Has no way to check blood pressure. R: ECW Chart reviewed. Notation of GINO paperwork exists from yesterday, but no mention is made about any new medications. Patient advised that message would be sent to provider for review on Saturday regarding new medication. Home care advice reviewed with patient per protocol. Patient instructed to call back with new or worsening symptoms, with repeated emphasis on those listed above. Patient verbalizes understanding. Reason for Disposition Systolic BP >= 160 OR Diastolic >= 100 Protocols used: Blood Pressure - [id number] Normal [facility] SHS CNDSon 06-19-2024 CNDS Normal [facility] NURSING PROGon 06-19-2024 NURSING PROG Normal [facility] THERAPY NTon 06-19-2024 THERAPY NT Normal [facility] THERAPY NT Normal [facility] THERAPY NT Normal [facility] THERAPY NT Normal [facility] CASE MANAGEMon 06-18-2024 CASE MANAGEM Normal [facility] THERAPY NTon 06-18-2024 THERAPY NT Normal [facility] THERAPY NT Normal [facility] THERAPY NT Normal [facility] CASE MANAGEMon 06-17-2024 CASE MANAGEM Normal [facility] CASE MANAGEM Normal [facility] CASE MANAGEM Normal [facility] CBC panel Auto (Bld)on 06-17 Erythrocyte distribution width (RBC) [Ratio] 15.8 % High 11.5-15.0 [facility] Comment on above: Order Comment: Speci men Type: BLOOD SPECIMENOrdering Facility: [facility] Address: [address] [place] [address] Performed By: #### 5 8410-2 ####[facility] WeditI LABCLIA [id number] [place] [id number] [place] Hematocrit (Bld) [Volume fraction] 21.0 % Low 39.0-51.0 [facility] Comment on above: Order Comment: Speci men Type: BLOOD SPECIMENOrdering Facility: [facility] Address: [address] [place] [address] Performed By: #### 5 8410-2 ####[facility] WeditI LABCLIA [id number] [place] [id number] [place] Hemoglobin (Bld) [Mass/Vol] 7.1 g/dL Low 13.0-17.0 [facility] Comment on above: Order Comment: Speci men Type: BLOOD SPECIMENOrdering Facility: [facility] Address: [address] [place] [address] Performed By: #### 5 8410-2 ####[facility] LODI LABCLIA [id number] [place] [address] [place] [facility] MCH (RBC) [Entitic mass] 27.8 pg Normal 26.0-34.0 [facility] Comment on above: Order Comment: Speci men Type: BLOOD SPECIMENOrdering Facility: [facility] Address: [address] [place] [address] Performed By: #### 5 8410-2 ####[facility] LABCLIA [id number] [place] [address] [place] [facility] MCHC (RBC) [Mass/Vol] 33.8 g/dL Normal 30.5-36.0 [facility] Comment on above: Order Comment: Speci men Type: BLOOD SPECIMENOrdering Facility: [facility] Address: [address] [place] [address] Performed By: #### 5 8410-2 ####[facility] LABCLIA [id number] [place] [address] [place] MCV (RBC) [Entitic vol] 82.4 fL Normal 80.0-100.0 [facility] Comment on above: Order Comment: Speci men Type: BLOOD SPECIMENOrdering Facility: [facility] Address: [address] [place] [address] Performed By: #### 5 8410-2 ####[facility] LABCLIA [id number] [place] [address] [place] Platelet mean volume (Bld) [Entitic vol] 11.2 fL Normal 9.0-12.7 [facility] Comment on above: Order Comment: Speci men Type: BLOOD SPECIMENOrdering Facility: [facility] Address: [address] [place] [address] Performed By: #### 5 8410-2 ####[facility] LABCLIA [id number] [place] [address] [facility] [place] Platelets (Bld) [#/Vol] 81 10*3/uL Low 150-400 [facility] Comment on above: Order Comment: Speci men Type: BLOOD SPECIMENOrdering Facility: [facility] Address: [address] [place] [address] Result Comment: No c lot detected. Performed By: #### 5 8410-2 ####[facility] LODI LABCLIA [id number] [place] [address] [place] RBC (Bld) [#/Vol] 2.55 10*6/uL Low 4.20-6.00 [facility] Comment on above: Order Comment: Speci men Type: BLOOD SPECIMENOrdering Facility: [facility] Address: [address] [place] [address] Performed By: #### 5 8410-2 ####[facility] LODI LABCLIA [id number] [place] [address] [facility] WBC (Bld) [#/Vol] 6.54 10*3/uL Normal 3.70-11.00 [facility] Comment on above: Order Comment: Speci men Type: BLOOD SPECIMENOrdering Facility: [facility] Address: [address] [place] [address] Performed By: #### 5 8410-2 ####[facility] LODI LABCLIA [id number] [place] [address] [facility] NURSING PROGon 06-17-2024 NURSING PROG Normal [facility] NUTRITIONon 06-17-2024 NUTRITION Normal [facility] THERAPY NTon 06-17-2024 THERAPY NT Normal [facility] THERAPY NT Normal [facility] THERAPY NT Normal [facility] THERAPY NT Normal [facility] TYPE + SCREENon 06-17-2024 ABO B Normal [facility] Comment on above: Order Comment: Speci men Type: BLOOD SPECIMENOrdering Facility: [facility] Address: [address] [place] [address] Performed By: #### T SCR ####[facility] BLOOD BANKCLIA [id number] [place] [address] [facility] [place] Rh Nom (Bld) Positive Normal [facility] Comment on above: Order Comment: Speci men Type: BLOOD SPECIMENOrdering Facility: [facility] Address: [address] [place] [address] Performed By: #### T SCR ####[facility] BLOOD BANKCLIA [id number] [place] [address] [facility] TYPE AND SCREEN EXPIRATION 06/20/2024 23:59 Normal [facility] Comment on above: Order Comment: Speci men Type: BLOOD SPECIMENOrdering Facility: [facility] Address: [address] [place] [address] Performed By: #### T SCR ####[facility] BLOOD BANKCLIA [id number] [place] [id number] [facility] CASE MANAGEMon 06-16-2024 CASE MANAGEM Normal [facility] THERAPY NTon 06-16-2024 THERAPY NT Normal [facility] THERAPY NT Normal [facility] CASE MANAGEMon 06-15-2024 CASE MANAGEM Normal [facility] THERAPY NTon 06-15-2024 THERAPY NT Normal [facility] THERAPY NT Normal [facility] CBC panel Auto (Bld)on 06-14 Erythrocyte distribution width (RBC) [Ratio] 15.7 % High 11.5-15.0 [facility] Comment on above: Order Comment: Speci men Type: BLOOD SPECIMENOrdering Facility: [facility] Address: [address] [place] [address] Performed By: #### 5 8410-2 ####[facility] L[facility] LABCLIA [id number] [place] [address] [facility] Hematocrit (Bld) [Volume fraction] 21.5 % Low 39.0-51.0 [facility] Comment on above: Order Comment: Speci men Type: BLOOD SPECIMENOrdering Facility: [facility] Address: [address] [place] [address] Performed By: #### 5 8410-2 ####[facility] L[facility] LABCLIA [id number] [place] [address] [place] [facility] Hemoglobin (Bld) [Mass/Vol] 7.3 g/dL Low 13.0-17.0 [facility] Comment on above: Order Comment: Speci men Type: BLOOD SPECIMENOrdering Facility: [facility] Address: [address] [place] [address] Performed By: #### 5 8410-2 ####[facility] LABCLIA [id number] [place] [address] [facility] MCH (RBC) [Entitic mass] 27.8 pg Normal 26.0-34.0 [facility] Comment on above: Order Comment: Speci men Type: BLOOD SPECIMENOrdering Facility: [facility] Address: [address] [place] [address] Performed By: #### 5 8410-2 ####[facility] LABCLIA [id number] [place] [address] [facility] MCHC (RBC) [Mass/Vol] 34.0 g/dL Normal 30.5-36.0 [facility] Comment on above: Order Comment: Speci men Type: BLOOD SPECIMENOrdering Facility: [facility] Address: [address] [place] [address] Performed By: #### 5 8410-2 ####[facility] LABCLIA [id number] [place] [address] [facility] [place] MCV (RBC) [Entitic vol] 81.7 fL Normal 80.0-100.0 [facility] Comment on above: Order Comment: Speci men Type: BLOOD SPECIMENOrdering Facility: [facility] Address: [address] [place] [address] Performed By: #### 5 8410-2 ####[facility] LABCLIA [id number] [place] [address] [place] Platelet mean volume (Bld) [Entitic vol] 11.6 fL Normal 9.0-12.7 [facility] Comment on above: Order Comment: Speci men Type: BLOOD SPECIMENOrdering Facility: [facility] Address: [address] [place] [address] Performed By: #### 5 8410-2 ####[facility] LABCLIA [id number] [place] [address] [facility] [place] Platelets (Bld) [#/Vol] 75 10*3/uL Low 150-400 [facility] Comment on above: Order Comment: Speci men Type: BLOOD SPECIMENOrdering Facility: [facility] Address: [address] [place] [address] Result Comment: No c lot detected. Performed By: #### 5 8410-2 ####[facility] LABCLIA [id number] [place] [address] [place] RBC (Bld) [#/Vol] 2.63 10*6/uL Low 4.20-6.00 [facility] Comment on above: Order Comment: Speci men Type: BLOOD SPECIMENOrdering Facility: [facility] Address: [address] [place] [address] Performed By: #### 5 8410-2 ####[facility] LABCLIA [id number] [place] [address] [facility] WBC (Bld) [#/Vol] 5.52 10*3/uL Normal 3.70-11.00 [facility] Comment on above: Order Comment: Speci men Type: BLOOD SPECIMENOrdering Facility: [facility] Address: [address] [place] [address] Performed By: #### 5 8410-2 ####[facility] L[facility]I LABCLIA [id number] [place] [address] [facility] THERAPY NTon 06-13-2024 THERAPY NT Normal [facility] THERAPY NT Normal [facility] CASE MANAGEMon 06-12-2024 CASE MANAGEM Normal [facility] THERAPY NTon 06-12-2024 THERAPY NT Normal [facility] THERAPY NT Normal [facility] THERAPY NTon 06-11-2024 THERAPY NT Normal [facility] THERAPY NT Normal [facility] THERAPY NT Normal [facility] CASE MANAGEMon 06-10-2024 CASE MANAGEM Normal [facility] CASE MGT INIT ASSESon 2024 CASE MGT INIT ASSES Normal [facility] HISTORY PHYSICALon HISTORY PHYSICAL Normal [facility] NUTRITIONon 06-10-2024 NUTRITION Normal [facility] THERAPY NTon 06-10-2024 THERAPY NT Normal [facility] THERAPY NT Normal [facility] CASE MANAGEMon 06-09-2024 CASE MANAGEM Normal [facility] CNDSon 06-09-2024 CNDS Normal [facility] ALLIED HEALTHon 06-08-2024 ALLIED HEALTH Normal [facility] CASE MANAGEMon 06-08-2024 CASE MANAGEM Normal [facility] MRI LUMBAR SPINE WO IVCONon 06-08-2024 MRI LUMBAR SPINE WO IVCON Normal [facility] THERAPY NTon 06-08-2024 THERAPY NT Normal [facility] Basic metabolic 2000 panelon 06-07-2024 Anion gap [Moles/Vol] 12 mmol/L Normal 8-15 [facility] Comment on above: Order Comment: Speci men Type: BLOOD SPECIMENOrdering Facility: [facility] Address: [address] [place] [address] Performed By: #### 1 9123-9, 13888-7 ####[facility] LABORATORYCLIA [id number] [place] [address] [place] Calcium [Mass/Vol] 9.1 mg/dL Normal 8.5-10.2 [facility] Comment on above: Order Comment: Speci men Type: BLOOD SPECIMENOrdering Facility: [facility] Address: [address] [place] [address] Performed By: #### 1 9123-9, 93201-0 ####[facility] LABORATORYCLIA [id number] [place] [address] [place] Chloride [Moles/Vol] 103 mmol/L Normal 98-107 [facility] Comment on above: Order Comment: Speci men Type: BLOOD SPECIMENOrdering Facility: [facility] Address: [address] [place] [address] Performed By: #### 1 9123-9, 46386-3 ####[facility] LABORATORYCLIA [id number] [place] [id number] [place] CO2 [Moles/Vol] 21 mmol/L Low 22-30 [facility] Comment on above: Order Comment: Speci men Type: BLOOD SPECIMENOrdering Facility: [facility] Address: [address] [place] [address] Performed By: #### 1 91239, 26512-0 ####[facility] [id number] [address] [place] Creatinine [Mass/Vol] 0.85 mg/dL Normal 0.73-1.22 [facility] Comment on above: Order Comment: Speci men Type: BLOOD SPECIMENOrdering Facility: [facility] Address: [address] [place] [address] Performed By: #### 1 91239, 57003-0 ####[facility] CENTERCLIA [id number] [address] Creatinine and Glomerular filtration rate.predicted panel (S/P/Bld) 87 mL/min/1.73m??? Normal >=60 [facility] Comment on above: Order Comment: Speci men Type: BLOOD SPECIMENOrdering Facility: [facility] Address: [address] [place] [address] Result Comment: Sharon mated Glomerular Filtration Rate (eGFR) is calculated using the 2020 CKD-EPI creatinine equation. This equation utilizes serum creatinine, sex, and age as parameters. The creatinine assay has traceable calibration to isotope dilution-mass spectrometry. Refer to KDIGO guidelines for clinical interpretation. In patients with unstable renal function, e.g. those with acute kidney injury, the eGFR may not accurately reflect actual GFR. Performed By: #### 1 9123-9, 79332-4 ####[facility] LABORATORYCLIA [id number] [place] [id number] [place] Glucose [Mass/Vol] 176 mg/dL High 74-99 [facility] Comment on above: Order Comment: Speci men Type: BLOOD SPECIMENOrdering Facility: [facility] Address: [address] [place] [address] Result Comment: The [place] [employer] (ADA) provides guidance for cutoff values for fasting glucose and random glucose. The ADA defines fasting as no caloric intake for at least 8 hours. Fasting plasma glucose results between 100 to 125 mg/dL indicate increased risk for diabetes (prediabetes).Fasting plasma glucose results greater than or equal to 126 mg/dL meet the criteria for diagnosis of diabetes. In the absence of unequivocal hyperglycemia, results should be confirmed by repeat testing. In a patient with classic symptoms of hyperglycemia or hyperglycemic crisis, random plasma glucose results greater than or equal to 200 mg/dL meet the criteria for diagnosis of diabetes.Reference: Standards of Medical Care in Diabetes 2016, [employer] [place] [employer]. Diabetes Care. 2016.39(Suppl 1). Performed By: #### 1 9123-9, 19661-1 ####[facility] LABORATORYCLIA [id number] [place] [address] [place] Potassium [Moles/Vol] 4.3 mmol/L Normal 3.7-5.1 [facility] Comment on above: Order Comment: Mathew lindsey Type: BLOOD SPECIMENOrdering Facility: [facility] Address: [address] [place] [address] Performed By: #### 1 9123-9, 67157-5 ####[facility] LABORATORYCLIA [id number] [place] [address] [place] Sodium [Moles/Vol] 136 mmol/L Normal 136-144 [facility] Comment on above: Order Comment: Mayuri men Type: BLOOD SPECIMENOrdering Facility: [facility] Address: [address] [place] [address] Performed By: #### 1 9123-9, 34401-7 ####[facility] LABORATORYCLIA [id number] [place] [address] [place] Urea nitrogen [Mass/Vol] 16 mg/dL Normal 9-24 [facility] Comment on above: Order Comment: Speci men Type: BLOOD SPECIMENOrdering Facility: [facility] Address: [address] [place] [address] Performed By: #### 1 9123-9, 47252-3 ####[facility] LABORATORYCLIA [id number] [address] [place] CASE MGT INIT ASSESon 2024 CASE MGT INIT ASSES Normal [facility] CBC W Auto Differential pane l (Bld)on 06-07-2024 Basophils (Bld) [#/Vol] 0.03 10*3/uL Normal <0.11 [facility] Comment on above: Order Comment: Speci men Type: BLOOD SPECIMENOrdering Facility: [facility] Address: [address] [place] [address] Performed By: #### 5 7021-8 ####[facility] LABORATORYCLIA [id number] [address] [place] Basophils/100 WBC (Bld) 0.5 % Normal [facility] Comment on above: Order Comment: Speci men Type: BLOOD SPECIMENOrdering Facility: [facility] Address: [address] [place] [address] Performed By: #### 5 7021-8 ####[facility] LABORATORYCLIA [id number] [address] [place] Differential cell count method Nom (Bld) Auto Normal [facility] Comment on above: Order Comment: Speci men Type: BLOOD SPECIMENOrdering Facility: [facility] Address: [facility] [place] [place] [address] Performed By: #### 5 7021-8 ####[facility]ORATORYCLIA [id number] [place] [address] [place] Eosinophils (Bld) [#/Vol] 10*3/uL Normal <0.46 [facility] Comment on above: Order Comment: Speci men Type: BLOOD SPECIMENOrdering Facility: [facility] Address: [facility] [place] [address] Performed By: #### 5 7021-8 ####[facility]ORATORYCLIA [id number] [address] [place] Eosinophils/100 WBC (Bld) 0.2 % Normal [facility] Comment on above: Order Comment: Speci men Type: BLOOD SPECIMENOrdering Facility: [facility] Address: [address] [place] [address] Performed By: #### 5 7021-8 ####[facility] LABORATORYCLIA [id number] [address] Erythrocyte distribution width (RBC) [Ratio] 16.9 % High 11.5-15.0 [facility] Comment on above: Order Comment: Speci men Type: BLOOD SPECIMENOrdering Facility: [facility] Address: [address] [place] [address] Performed By: #### 5 7021-8 ####[facility] LABORATORYCLIA [id number] [address] Hematocrit (Bld) [Volume fraction] 25.9 % Low 39.0-51.0 [facility] Comment on above: Order Comment: Speci men Type: BLOOD SPECIMENOrdering Facility: [facility] Address: [address] [place] [address] Performed By: #### 5 7021-8 ####[facility] LABORATORYCLIA [id number] [address] OF [place] Hemoglobin (Bld) [Mass/Vol] 9.0 g/dL Low 13.0-17.0 [facility] Comment on above: Order Comment: Speci men Type: BLOOD SPECIMENOrdering Facility: [facility] Address: [address] [place] [address] Performed By: #### 5 7021-8 ####[facility] LABORATORYCLIA [id number] [address] Immature granulocytes (Bld) [#/Vol] 0.08 10*3/uL Normal <0.10 [facility] Comment on above: Order Comment: Speci men Type: BLOOD SPECIMENOrdering Facility: [facility] Address: [address] [place] [address] Performed By: #### 5 7021-8 ####[facility]ATORYCLIA [id number] [address] OF [place] Immature granulocytes/100 WBC (Bld) 1.2 % Normal [facility] Comment on above: Order Comment: Speci men Type: BLOOD SPECIMENOrdering Facility: [facility] Address: [address] [place] [address] Performed By: #### 5 7021-8 ####[facility]ATORYCLIA [id number] [place] [address] [place] Lymphocytes (Bld) [#/Vol] 2.19 10*3/uL Normal 1.00-4.00 [facility] Comment on above: Order Comment: Speci men Type: BLOOD SPECIMENOrdering Facility: [facility] Address: [address] [place] [address] Performed By: #### 5 7021-8 ####[facility] LABORATORYCLIA [id number] [address] STATES [facility] Lymphocytes/100 WBC (Bld) 33.8 % Normal [facility] Comment on above: Order Comment: Speci men Type: BLOOD SPECIMENOrdering Facility: [facility] Address: [address] [place] [address] Performed By: #### 5 7021-8 ####[facility]ATORYCLIA [id number] [address] [place] MCH (RBC) [Entitic mass] 28.4 pg Normal 26.0-34.0 [facility] Comment on above: Order Comment: Speci men Type: BLOOD SPECIMENOrdering Facility: [facility] Address: [address] [place] [address] Performed By: #### 5 7021-8 ####[facility]ATORYCLIA [id number] [address] [place] MCHC (RBC) [Mass/Vol] 34.7 g/dL Normal 30.5-36.0 [facility] Comment on above: Order Comment: Speci men Type: BLOOD SPECIMENOrdering Facility: [facility] Address: [address] [place] [address] Performed By: #### 5 7021-8 ####[facility] LABORATORYCLIA [id number] [address] [place] MCV (RBC) [Entitic vol] 81.7 fL Normal 80.0-100.0 [facility] Comment on above: Order Comment: Speci men Type: BLOOD SPECIMENOrdering Facility: [facility] Address: [address] [place] [address] Performed By: #### 5 7021-8 ####[facility] LABORATORYCLIA [id number] [place] [address] [place] Monocytes (Bld) [#/Vol] 0.63 10*3/uL Normal <0.87 [facility] Comment on above: Order Comment: Speci men Type: BLOOD SPECIMENOrdering Facility: [facility] Address: [address] [place] [address] Performed By: #### 5 7021-8 ####[facility] LABORATORYCLIA [id number] [address] [place] Monocytes/100 WBC (Bld) 9.7 % Normal [facility] Comment on above: Order Comment: Speci men Type: BLOOD SPECIMENOrdering Facility: [facility] Address: [address] [place] [address] Performed By: #### 5 7021-8 ####[facility] LABORATORYCLIA [id number] [place] [address] [place] Neutrophils (Bld) [#/Vol] 3.54 10*3/uL Normal 1.45-7.50 [facility] Comment on above: Order Comment: Speci men Type: BLOOD SPECIMENOrdering Facility: [facility] Address: [address] [place] [address] Performed By: #### 5 7021-8 ####[facility] LABORATORYCLIA [id number] [place] [address] [place] Neutrophils/100 WBC (Bld) 54.6 % Normal [facility] Comment on above: Order Comment: Speci men Type: BLOOD SPECIMENOrdering Facility: [facility] Address: [facility] [place] [address] Performed By: #### 5 7021-8 ####[facility] LABORATORYCLIA [id number] [place] [address] [place] Nucleated RBC (Bld) [#/Vol] 10*3/uL Normal <0.01 [facility] Comment on above: Order Comment: Speci men Type: BLOOD SPECIMENOrdering Facility: [facility] Address: [address] [place] [address] Performed By: #### 5 7021-8 ####[facility] LABORATORYCLIA [id number] [address] [place] Nucleated RBC/100 WBC (Bld) [Ratio] 0.0 /100 WBC Normal [facility] Comment on above: Order Comment: Speci men Type: BLOOD SPECIMENOrdering Facility: [facility] Address: [address] [place] [address] Performed By: #### 5 7021-8 ####[facility] LABORATORYCLIA [id number] [place] [address] [place] Platelet mean volume (Bld) [Entitic vol] 11.9 fL Normal 9.0-12.7 [facility] Comment on above: Order Comment: Speci men Type: BLOOD SPECIMENOrdering Facility: [facility] Address: [address] [place] [address] Performed By: #### 5 7021-8 ####[facility] LABORATORYCLIA [id number] [place] [address] [place] Platelets (Bld) [#/Vol] 54 10*3/uL Low 150-400 [facility] Comment on above: Order Comment: Speci men Type: BLOOD SPECIMENOrdering Facility: [facility] Address: [address] [place] [address] Performed By: #### 5 7021-8 ####[facility] LABORATORYCLIA [id number] [place] [address] [place] RBC (Bld) [#/Vol] 3.17 10*6/uL Low 4.20-6.00 [facility] Comment on above: Order Comment: Speci men Type: BLOOD SPECIMENOrdering Facility: [facility] Address: [address] [place] [address] Performed By: #### 5 7021-8 ####[facility] LABORATORYCLIA [id number] [address] WBC (Bld) [#/Vol] 6.48 10*3/uL Normal 3.70-11.00 [facility] Comment on above: Order Comment: Speci men Type: BLOOD SPECIMENOrdering Facility: [facility] Address: [address] [place] [address] Performed By: #### 5 7021-8 ####[facility] CENTERCLIA [id number] [address] OF [facility] Magnesium SerPl-mCncon 06-07 Magnesium [Mass/Vol] 1.9 mg/dL Normal 1.7-2.3 [facility] Comment on above: Order Comment: Speci men Type: BLOOD SPECIMENOrdering Facility: [facility] Address: [address] [place] [address] Performed By: #### 1 9123-9, 89212-8 ####[facility] LABORATORYCLIA [id number] [address] STATES OF [facility] CBC W Auto Differential pane l (Bld)on 06-06-2024 Basophils (Bld) [#/Vol] 10*3/uL Normal <0.11 [facility] Comment on above: Order Comment: Speci men Type: BLOOD SPECIMENOrdering Facility: [facility] Address: [address] [place] [address] Performed By: #### 5 7021-8 ####[facility] LABORATORYCLIA [id number] [address] Basophils/100 WBC (Bld) 0.1 % Normal [facility] Comment on above: Order Comment: Speci men Type: BLOOD SPECIMENOrdering Facility: [facility] Address: [address] [place] [address] Performed By: #### 5 7021-8 ####[facility] LABORATORYCLIA [id number] [address] [place] Differential cell count method Nom (Bld) Auto Normal [facility] Comment on above: Order Comment: Speci men Type: BLOOD SPECIMENOrdering Facility: [facility] Address: [address] [place] [address] Performed By: #### 5 7021-8 ####[facility] LABORATORYCLIA [id number] [address] Eosinophils (Bld) [#/Vol] 10*3/uL Normal <0.46 [facility] Comment on above: Order Comment: Speci men Type: BLOOD SPECIMENOrdering Facility: [facility] Address: [address] [place] [address] Performed By: #### 5 7021-8 ####[facility] LABORATORYCLIA [id number] [address] Eosinophils/100 WBC (Bld) 0.0 % Normal [facility] Comment on above: Order Comment: Speci men Type: BLOOD SPECIMENOrdering Facility: [facility] Address: [address] [place] [address] Performed By: #### 5 7021-8 ####[facility] LABORATORYCLIA [id number] [address] Erythrocyte distribution width (RBC) [Ratio] 16.8 % High 11.5-15.0 [facility] Comment on above: Order Comment: Speci men Type: BLOOD SPECIMENOrdering Facility: [facility] Address: [address] [place] [address] Performed By: #### 5 7021-8 ####[facility] LABORATORYCLIA [id number] [address] [place] Hematocrit (Bld) [Volume fraction] 25.1 % Low 39.0-51.0 [facility] Comment on above: Order Comment: Speci men Type: BLOOD SPECIMENOrdering Facility: [facility] Address: [address] [place] [address] Performed By: #### 5 7021-8 ####[facility]ATORYCLIA [id number] [address] [place] Hemoglobin (Bld) [Mass/Vol] 8.8 g/dL Low 13.0-17.0 [facility] Comment on above: Order Comment: Speci men Type: BLOOD SPECIMENOrdering Facility: [facility] Address: [address] [place] [address] Performed By: #### 5 7021-8 ####[facility]ORATORYCLIA [id number] [address] [place] Immature granulocytes (Bld) [#/Vol] 0.07 10*3/uL Normal <0.10 [facility] Comment on above: Order Comment: Speci men Type: BLOOD SPECIMENOrdering Facility: [facility] Address: [address] [place] [address] Performed By: #### 5 7021-8 ####[facility] LABORATORYCLIA [id number] [address] OF [place] Immature granulocytes/100 WBC (Bld) 1.0 % Normal [facility] Comment on above: Order Comment: Speci men Type: BLOOD SPECIMENOrdering Facility: [facility] Address: [address] [place] [address] Performed By: #### 5 7021-8 ####[facility]ATORYCLIA [id number] [place] [address] [place] Lymphocytes (Bld) [#/Vol] 1.16 10*3/uL Normal 1.00-4.00 [facility] Comment on above: Order Comment: Speci men Type: BLOOD SPECIMENOrdering Facility: [facility] Address: [address] [place] [address] Performed By: #### 5 7021-8 ####[facility]ORATORYCLIA [id number] [address] Lymphocytes/100 WBC (Bld) 16.9 % Normal [facility] Comment on above: Order Comment: Speci men Type: BLOOD SPECIMENOrdering Facility: [facility] Address: [address] [place] [address] Performed By: #### 5 7021-8 ####[facility] LABORATORYCLIA [id number] [address] MCH (RBC) [Entitic mass] 27.8 pg Normal 26.0-34.0 [facility] Comment on above: Order Comment: Speci men Type: BLOOD SPECIMENOrdering Facility: [facility] Address: [address] [place] [address] Performed By: #### 5 7021-8 ####[facility] LABORATORYCLIA [id number] [address] MCHC (RBC) [Mass/Vol] 35.1 g/dL Normal 30.5-36.0 [facility] Comment on above: Order Comment: Speci men Type: BLOOD SPECIMENOrdering Facility: [facility] Address: [address] [place] [address] Performed By: #### 5 7021-8 ####[facility]ORATORYCLIA [id number] [address] MCV (RBC) [Entitic vol] 79.4 fL Low 80.0-100.0 [facility] Comment on above: Order Comment: Speci men Type: BLOOD SPECIMENOrdering Facility: [facility] Address: [address] [place] [address] Performed By: #### 5 7021-8 ####[facility]ORATORYCLIA [id number] [address] Monocytes (Bld) [#/Vol] 0.49 10*3/uL Normal <0.87 [facility] Comment on above: Order Comment: Speci men Type: BLOOD SPECIMENOrdering Facility: [facility] Address: [address] [place] [address] Performed By: #### 5 7021-8 ####[facility]ATORYCLIA [id number] [address] [place] Monocytes/100 WBC (Bld) 7.1 % Normal [facility] Comment on above: Order Comment: Speci men Type: BLOOD SPECIMENOrdering Facility: [facility] Address: [address] [place] [address] Performed By: #### 5 7021-8 ####[facility]ATORYCLIA [id number] [place] [address] [place] Neutrophils (Bld) [#/Vol] 5.14 10*3/uL Normal 1.45-7.50 [facility] Comment on above: Order Comment: Speci men Type: BLOOD SPECIMENOrdering Facility: [facility] Address: [address] [place] [address] Performed By: #### 5 7021-8 ####[facility]ATORYCLIA [id number] [address] [place] Neutrophils/100 WBC (Bld) 74.9 % Normal [facility] Comment on above: Order Comment: Speci men Type: BLOOD SPECIMENOrdering Facility: [facility] Address: [address] [place] [address] Performed By: #### 5 7021-8 ####[facility]ORATORYCLIA [id number] [place] [address] [place] Nucleated RBC (Bld) [#/Vol] 0.02 10*3/uL High <0.01 [facility] Comment on above: Order Comment: Speci men Type: BLOOD SPECIMENOrdering Facility: [facility] Address: [address] [place] [address] Performed By: #### 5 7021-8 ####[facility]ATORYCLIA [id number] [place] [address] [place] Nucleated RBC/100 WBC (Bld) [Ratio] 0.3 /100 WBC Normal [facility] Comment on above: Order Comment: Speci men Type: BLOOD SPECIMENOrdering Facility: [facility] Address: [address] [place] [address] Performed By: #### 5 7021-8 ####[facility] LABORATORYCLIA [id number] [address] [place] Platelet mean volume (Bld) [Entitic vol] Normal [facility] Comment on above: Order Comment: Speci men Type: BLOOD SPECIMENOrdering Facility: [facility] Address: [address] [place] [address] Result Comment: Unab le to Report. Performed By: #### 5 7021-8 ####[facility]ORATORYCLIA [id number] [address] [place] Platelets (Bld) [#/Vol] 54 10*3/uL Low 150-400 [facility] Comment on above: Order Comment: Speci men Type: BLOOD SPECIMENOrdering Facility: [facility] Address: [address] [place] [address] Result Comment: No c lot detected. Performed By: #### 5 7021-8 ####[facility]ORATORYCLIA [id number] [address] [place] RBC (Bld) [#/Vol] 3.16 10*6/uL Low 4.20-6.00 [facility] Comment on above: Order Comment: Speci men Type: BLOOD SPECIMENOrdering Facility: [facility] Address: [address] [place] [address] Performed By: #### 5 7021-8 ####[facility] LABORATORYCLIA [id number] [place] [address] [place] WBC (Bld) [#/Vol] 6.87 10*3/uL Normal 3.70-11.00 [facility] Comment on above: Order Comment: Speci men Type: BLOOD SPECIMENOrdering Facility: [facility] Address: [address] [place] [address] Performed By: #### 5 7021-8 ####[facility] LABORATORYCLIA [id number] [address] OF [facility] Comprehensive metabolic 2000 panelon 06-06-2024 Albumin [Mass/Vol] 3.6 g/dL Low 3.9-4.9 [facility] Comment on above: Order Comment: Speci men Type: BLOOD SPECIMENOrdering Facility: [facility] Address: [address] [place] [address] Performed By: #### 2 4323-8 ####[facility] LABORATORYCLIA [id number] [address] [place] ALP [Catalytic activity/Vol] 94 U/L Normal 38-113 [facility] Comment on above: Order Comment: Speci men Type: BLOOD SPECIMENOrdering Facility: [facility] Address: [address] [place] [address] Performed By: #### 2 4323-8 ####[facility] LABORATORYCLIA [id number] [address] STATES [facility] ALT With P-5'-P [Catalytic activity/Vol] 13 U/L Normal 10-54 [facility] Comment on above: Order Comment: Speci men Type: BLOOD SPECIMENOrdering Facility: [facility] Address: [address] [place] [address] Performed By: #### 2 4323-8 ####[facility] LABORATORYCLIA [id number] [address] STATES [facility] Anion gap [Moles/Vol] 13 mmol/L Normal 8-15 [facility] Comment on above: Order Comment: Speci men Type: BLOOD SPECIMENOrdering Facility: [facility] Address: [address] [place] [address] Performed By: #### 2 4323-8 ####[facility]ATORYCLIA [id number] [place] [address] [place] AST With P-5'-P [Catalytic activity/Vol] 17 U/L Normal 14-40 [facility] Comment on above: Order Comment: Speci men Type: BLOOD SPECIMENOrdering Facility: [facility] Address: [address] [place] [address] Performed By: #### 2 4323-8 ####[facility]ATORYCLIA [id number] [place] [address] [place] Bilirubin [Mass/Vol] 0.4 mg/dL Normal 0.2-1.3 [facility] Comment on above: Order Comment: Speci men Type: BLOOD SPECIMENOrdering Facility: [facility] Address: [address] [place] [address] Performed By: #### 2 4323-8 ####[facility]ATORYCLIA [id number] [place] [address] [place] Calcium [Mass/Vol] 9.3 mg/dL Normal 8.5-10.2 [facility] Comment on above: Order Comment: Speci men Type: BLOOD SPECIMENOrdering Facility: [facility] Address: [address] [place] [address] Performed By: #### 2 4323-8 ####[facility]ATORYCLIA [id number] [place] [address] [place] Chloride [Moles/Vol] 98 mmol/L Normal 98-107 [facility] Comment on above: Order Comment: Speci men Type: BLOOD SPECIMENOrdering Facility: [facility] Address: [address] [place] [address] Performed By: #### 2 4323-8 ####[facility]ATORYCLIA [id number] [place] [address] [place] CO2 [Moles/Vol] 22 mmol/L Normal 22-30 [facility] Comment on above: Order Comment: Speci men Type: BLOOD SPECIMENOrdering Facility: [facility] Address: [address] [place] [address] Performed By: #### 2 4323-8 ####[facility]ATORYCLIA [id number] [place] [address] [place] Creatinine [Mass/Vol] 0.87 mg/dL Normal 0.73-1.22 [facility] Comment on above: Order Comment: Speci men Type: BLOOD SPECIMENOrdering Facility: [facility] Address: [address] [place] [address] Performed By: #### 2 4323-8 ####[facility] LABORATORYCLIA [id number] [address] [place] Creatinine and Glomerular filtration rate.predicted panel (S/P/Bld) 87 mL/min/1.73m??? Normal >=60 [facility] Comment on above: Order Comment: Mathew men Type: BLOOD SPECIMENOrdering Facility: [facility] Address: [address] [place] [address] Result Comment: Sharon mated Glomerular Filtration Rate (eGFR) is calculated using the 2020 CKD-EPI creatinine equation. This equation utilizes serum creatinine, sex, and age as parameters. The creatinine assay has traceable calibration to isotope dilution-mass spectrometry. Refer to KDIGO guidelines for clinical interpretation. In patients with unstable renal function, e.g. those with acute kidney injury, the eGFR may not accurately reflect actual GFR. Performed By: #### 2 4323-8 ####[facility] LABORATORYIA [id number] [place] [address] [place] Glucose [Mass/Vol] 233 mg/dL High 74-99 [facility] Comment on above: Order Comment: Mathew portillo Type: BLOOD SPECIMENOrdering Facility: [facility] Address: [address] [place] [address] Result Comment: The [place] [employer] (ADA) provides guidance for cutoff values for fasting glucose and random glucose. The ADA defines fasting as no caloric intake for at least 8 hours. Fasting plasma glucose results between 100 to 125 mg/dL indicate increased risk for diabetes (prediabetes).Fasting plasma glucose results greater than or equal to 126 mg/dL meet the criteria for diagnosis of diabetes. In the absence of unequivocal hyperglycemia, results should be confirmed by repeat testing. In a patient with classic symptoms of hyperglycemia or hyperglycemic crisis, random plasma glucose results greater than or equal to 200 mg/dL meet the criteria for diagnosis of diabetes.Reference: Standards of Medical Care in Diabetes 2016, [employer]. Diabetes Care. 2016.39(Suppl 1). Performed By: #### 2 4323-8 ####[facility]ATORYCLIA [id number] [place] [address] [place] Potassium [Moles/Vol] 4.1 mmol/L Normal 3.7-5.1 [facility] Comment on above: Order Comment: Speci men Type: BLOOD SPECIMENOrdering Facility: [facility] Address: [address] [place] [address] Performed By: #### 2 4323-8 ####[facility]ORYCLIA [id number] [place] [address] [place] Protein [Mass/Vol] 7.1 g/dL Normal 6.3-8.0 [facility] Comment on above: Order Comment: Speci men Type: BLOOD SPECIMENOrdering Facility: [facility] Address: [address] [place] [address] Performed By: #### 2 4323-8 ####[facility] LABORATORYCLIA [id number] [address] STATES [facility] Sodium [Moles/Vol] 133 mmol/L Low 136-144 [facility] Comment on above: Order Comment: Speci men Type: BLOOD SPECIMENOrdering Facility: [facility] Address: [address] [place] [address] Performed By: #### 2 4323-8 ####[facility] LABORATORYCLIA [id number] [address] [place] Urea nitrogen [Mass/Vol] 15 mg/dL Normal 9-24 [facility] Comment on above: Order Comment: Speci men Type: BLOOD SPECIMENOrdering Facility: [facility] Address: [address] [place] [address] Performed By: #### 2 4323-8 ####[facility] LABORATORYCLIA [id number] [address] OF [place] ED NOTEon 06-06-2024 ED NOTE HNO ID: [id number] Author: ANIYA FARFAN RN Service: ? Author Type: Registered Nurse Type: ED Notes Filed: 06/06/2024 11:37 Note Text: Verified room is clean with 8100 Normal [facility] ED NOTE Normal [facility] ED PROV NOTEon 06-06-2024 ED PROV NOTE Normal [facility] HISTORY PHYSICALon HISTORY PHYSICAL Normal [facility] THERAPY NTon 06-06-2024 THERAPY NT Normal [facility] Basic metabolic 2000 panelon 06-05-2024 Anion gap [Moles/Vol] 14 mmol/L Normal 8-15 [facility] Comment on above: Order Comment: Speci men Type: BLOOD SPECIMENOrdering Facility: [facility] Address: [address] [place] [address] Performed By: #### 2 4321-2, ####[facility] [place] LABCLIA [id number] [facility] [place] [address] [place] Calcium [Mass/Vol] 9.2 mg/dL Normal 8.5-10.2 [facility] Comment on above: Order Comment: Speci men Type: BLOOD SPECIMENOrdering Facility: [facility] Address: [address] [place] [address] Performed By: #### 2 4321-2, ####[facility] [place] LABCLIA [id number] [place] [address] [place] Chloride [Moles/Vol] 101 mmol/L Normal 98-107 [facility] Comment on above: Order Comment: Speci men Type: BLOOD SPECIMENOrdering Facility: [facility] Address: [address] [place] [address] Performed By: #### 2 4321-2, ####[facility] [place] LABCLIA [id number] [place] [address] [place] CO2 [Moles/Vol] 18 mmol/L Low 22-30 [facility] Comment on above: Order Comment: Speci men Type: BLOOD SPECIMENOrdering Facility: [facility] Address: [address] [place], [place] [id number] Performed By: #### 2 4321-2, ####[facility] [place] LABCLIA [id number] [place] [address] [place] [facility] Creatinine [Mass/Vol] 0.90 mg/dL Normal 0.73-1.22 [facility] Comment on above: Order Comment: Mathew portillo Type: BLOOD SPECIMENOrdering Facility: [facility] Address: [address] [place] [address] Performed By: #### 2 4321-2, ####[facility] LABCLIA [id number] [place] [id number] [facility] Creatinine and Glomerular filtration rate.predicted panel (S/P/Bld) 86 mL/min/1.73m??? Normal >=60 [facility] Comment on above: Order Comment: Mathew portillo Type: BLOOD SPECIMENOrdering Facility: [facility] Address: [address] [place] [address] Result Comment: Sharon mated Glomerular Filtration Rate (eGFR) is calculated using the 2020 CKD-EPI creatinine equation. This equation utilizes serum creatinine, sex, and age as parameters. The creatinine assay has traceable calibration to isotope dilution-mass spectrometry. Refer to KDIGO guidelines for clinical interpretation. In patients with unstable renal function, e.g. those with acute kidney injury, the eGFR may not accurately reflect actual GFR. Performed By: #### 2 4321-2, ####[facility] LABCLIA [id number] [place] [address] [place] [facility] Glucose [Mass/Vol] 181 mg/dL High 74-99 [facility] Comment on above: Order Comment: Mathew portillo Type: BLOOD SPECIMENOrdering Facility: [facility] Address: [address] [place] [address] Result Comment: The [place] [employer] (ADA) provides guidance for cutoff values for fasting glucose and random glucose. The ADA defines fasting as no caloric intake for at least 8 hours. Fasting plasma glucose results between 100 to 125 mg/dL indicate increased risk for diabetes (prediabetes).Fasting plasma glucose results greater than or equal to 126 mg/dL meet the criteria for diagnosis of diabetes. In the absence of unequivocal hyperglycemia, results should be confirmed by repeat testing. In a patient with classic symptoms of hyperglycemia or hyperglycemic crisis, random plasma glucose results greater than or equal to 200 mg/dL meet the criteria for diagnosis of diabetes.Reference: Standards of Medical Care in Diabetes 2016, [employer] [place] [employer]. Diabetes Care. 2016.39(Suppl 1). Performed By: #### 2 4321-2, ####[facility] LABCLIA [id number] [place] [address] [place] Potassium [Moles/Vol] 4.5 mmol/L Normal 3.7-5.1 [facility] Comment on above: Order Comment: Mathew men Type: BLOOD SPECIMENOrdering Facility: [facility] Address: [address] [place] [address] Performed By: #### 2 4320-2, ####[employer] [facility] Wed[facility]I LABCLIA [id number] [place] [address] [place] Sodium [Moles/Vol] 133 mmol/L Low 136-144 [facility] Comment on above: Order Comment: Mathew portillo Type: BLOOD SPECIMENOrdering Facility: [facility] Address: [address] [place] [address] Performed By: #### 2 4320-2, ####[facility] LABCLIA [id number] [place] [address] [place] Urea nitrogen [Mass/Vol] 20 mg/dL Normal 9-24 [facility] Comment on above: Order Comment: Mathew portillo Type: BLOOD SPECIMENOrdering Facility: [facility] Address: [address] [place] [address] Performed By: #### 2 4320-2, ####[employer] [facility] LABCLIA [id number] [place] [address] [place] CASE MANAGEMon 06-05-2024 CASE MANAGEM Normal [facility] CBC panel Auto (Bld)on 06-05 Erythrocyte distribution width (RBC) [Ratio] 17.4 % High 11.5-15.0 [facility] Comment on above: Order Comment: Mathew men Type: BLOOD SPECIMENOrdering Facility: [facility] Address: [address] [place] [address] Performed By: #### 5 8410-2 ####[facility] [place] LABCLIA [id number] [place] [address] [place] Hematocrit (Bld) [Volume fraction] 26.5 % Low 39.0-51.0 [facility] Comment on above: Order Comment: Speci men Type: BLOOD SPECIMENOrdering Facility: [facility] Address: [address] [place] [address] Performed By: #### 5 8410-2 ####[facility] [place] LABCLIA [id number] [place] [address] [place] Hemoglobin (Bld) [Mass/Vol] 9.2 g/dL Low 13.0-17.0 [facility] Comment on above: Order Comment: Speci men Type: BLOOD SPECIMENOrdering Facility: [facility] Address: [address] [place] [address] Performed By: #### 5 8410-2 ####[facility] LABCLIA [id number] [place] [address] [place] MCH (RBC) [Entitic mass] 28.3 pg Normal 26.0-34.0 [facility] Comment on above: Order Comment: Speci men Type: BLOOD SPECIMENOrdering Facility: [facility] Address: [address] [place] [address] Performed By: #### 5 8410-2 ####[facility] [place] LABCLIA [id number] [place] [address] [place] MCHC (RBC) [Mass/Vol] 34.7 g/dL Normal 30.5-36.0 [facility] Comment on above: Order Comment: Speci men Type: BLOOD SPECIMENOrdering Facility: [facility] Address: [address] [place] [address] Performed By: #### 5 8410-2 ####[facility] [place] LABCLIA [id number] [place] [address] [place] [facility] MCV (RBC) [Entitic vol] 81.5 fL Normal 80.0-100.0 [facility] Comment on above: Order Comment: Speci men Type: BLOOD SPECIMENOrdering Facility: [facility] Address: [address] [place] [address] Performed By: #### 5 8410-2 ####[facility] WeditI LABCLIA [id number] [place] [address] [place] Platelet mean volume (Bld) [Entitic vol] Normal [facility] Comment on above: Order Comment: Speci men Type: BLOOD SPECIMENOrdering Facility: [facility] Address: [address] [place] [address] Result Comment: Unab le to Report. Performed By: #### 5 8410-2 ####[facility] LABCLIA [id number] [place] [address] [place] Platelets (Bld) [#/Vol] 63 10*3/uL Low 150-400 [facility] Comment on above: Order Comment: Speci men Type: BLOOD SPECIMENOrdering Facility: [facility] Address: [address] [place] [address] Result Comment: Resu lts checked and verified.No clot detected. Performed By: #### 5 8410-2 ####[facility] WeditI LABCLIA [id number] [place] [address] [place] RBC (Bld) [#/Vol] 3.25 10*6/uL Low 4.20-6.00 [facility] Comment on above: Order Comment: Speci men Type: BLOOD SPECIMENOrdering Facility: [facility] Address: [address] [place] [address] Performed By: #### 5 8410-2 ####[facility] LABCLIA [id number] [place] [address] [place] WBC (Bld) [#/Vol] 5.85 10*3/uL Normal 3.70-11.00 [facility] Comment on above: Order Comment: Speci men Type: BLOOD SPECIMENOrdering Facility: [facility] Address: [address] [place] [address] Performed By: #### 5 8410-2 ####[facility] [place] LABCLIA [id number] [place] [address] [place] CNDSon 06-05-2024 CNDS Normal [facility] Magnesium SerPl-mCncon 06-05 Magnesium [Mass/Vol] 1.7 mg/dL Normal 1.7-2.3 [facility] Comment on above: Order Comment: Speci men Type: BLOOD SPECIMENOrdering Facility: [facility] Address: [address] [place] [address] Performed By: #### 2 4321-2, 18770-0 ####[facility] [place] LABCLIA [id number] [place] [address] [place] THERAPY NTon 06-05-2024 THERAPY NT Normal [facility] Basic metabolic 2000 panelon 06-04-2024 Anion gap [Moles/Vol] 12 mmol/L Normal 8-15 [facility] Comment on above: Order Comment: Speci men Type: BLOOD SPECIMENOrdering Facility: [facility] Address: [address] [place] [address] Performed By: #### 1 9123-9, 03854-8 ####[facility] [place] LABCLIA [id number] [place] [address] [place] Calcium [Mass/Vol] 8.9 mg/dL Normal 8.5-10.2 [facility] Comment on above: Order Comment: Speci men Type: BLOOD SPECIMENOrdering Facility: [facility] Address: [address] [place] [address] Performed By: #### 1 9123-9, 81319-9 ####[facility] [place] LABCLIA [id number] [place] [address] [place] Chloride [Moles/Vol] 108 mmol/L High 98-107 [facility] Comment on above: Order Comment: Speci men Type: BLOOD SPECIMENOrdering Facility: [facility] Address: [address] [place] [address] Performed By: #### 1 9123-9, 16269-6 ####[facility] LABCLIA [id number] [place] [address] [place] CO2 [Moles/Vol] 21 mmol/L Low 22-30 [facility] Comment on above: Order Comment: Speci men Type: BLOOD SPECIMENOrdering Facility: [facility] Address: [address] [place] [address] Performed By: #### 1 91239, 24630-7 ####[facility] LABCLIA [id number] [place] [address] [place] [facility] Creatinine [Mass/Vol] 0.95 mg/dL Normal 0.73-1.22 [facility] Comment on above: Order Comment: Speci men Type: BLOOD SPECIMENOrdering Facility: [facility] Address: [address] [place] [address] Performed By: #### 1 91239, 62488-7 ####[facility] LABCLIA [id number] [place] [address] [facility] Creatinine and Glomerular filtration rate.predicted panel (S/P/Bld) 80 mL/min/1.73m??? Normal >=60 [facility] Comment on above: Order Comment: Speci men Type: BLOOD SPECIMENOrdering Facility: [facility] Address: [address] [place] [address] Result Comment: Sharon mated Glomerular Filtration Rate (eGFR) is calculated using the 2020 CKD-EPI creatinine equation. This equation utilizes serum creatinine, sex, and age as parameters. The creatinine assay has traceable calibration to isotope dilution-mass spectrometry. Refer to KDIGO guidelines for clinical interpretation. In patients with unstable renal function, e.g. those with acute kidney injury, the eGFR may not accurately reflect actual GFR. Performed By: #### 1 9123-9, 49296-4 ####[facility] LABCLIA [id number] [place] [address] [place] Glucose [Mass/Vol] 183 mg/dL High 74-99 [facility] Comment on above: Order Comment: Mathew portillo Type: BLOOD SPECIMENOrdering Facility: [facility] Address: [address] [place] [address] Result Comment: The [place] [employer] (ADA) provides guidance for cutoff values for fasting glucose and random glucose. The ADA defines fasting as no caloric intake for at least 8 hours. Fasting plasma glucose results between 100 to 125 mg/dL indicate increased risk for diabetes (prediabetes).Fasting plasma glucose results greater than or equal to 126 mg/dL meet the criteria for diagnosis of diabetes. In the absence of unequivocal hyperglycemia, results should be confirmed by repeat testing. In a patient with classic symptoms of hyperglycemia or hyperglycemic crisis, random plasma glucose results greater than or equal to 200 mg/dL meet the criteria for diagnosis of diabetes.Reference: Standards of Medical Care in Diabetes 2016, [employer]. Diabetes Care. 2016.39(Suppl 1). Performed By: #### 1 9123-9, 17729-3 ####[facility] Wed[facility]I LABCLIA [id number] [place] [address] [place] Potassium [Moles/Vol] 4.4 mmol/L Normal 3.7-5.1 [facility] Comment on above: Order Comment: Mathew portillo Type: BLOOD SPECIMENOrdering Facility: [facility] Address: [address] [place] [address] Performed By: #### 1 9123-9, 63457-6 ####[facility] LABCLIA [id number] [place] [address] [place] Sodium [Moles/Vol] 141 mmol/L Normal 136-144 [facility] Comment on above: Order Comment: Mathew portillo Type: BLOOD SPECIMENOrdering Facility: [facility] Address: [address] [place] [address] Performed By: #### 1 9123-9, 52280-0 ####[facility] LABCLIA [id number] [place] [address] [place] Urea nitrogen [Mass/Vol] 23 mg/dL Normal 9-24 [facility] Comment on above: Order Comment: Speci men Type: BLOOD SPECIMENOrdering Facility: [facility] Address: [address] [place] [address] Performed By: #### 1 9123-9, 58168-0 ####[facility] [place] LABCLIA [id number] [place] [address] [place] CASE MGT INIT ASSESon 2024 CASE MGT INIT ASSES Normal [facility] CBC panel Auto (Bld)on 06-04 Erythrocyte distribution width (RBC) [Ratio] 16.7 % High 11.5-15.0 [facility] Comment on above: Order Comment: Speci men Type: BLOOD SPECIMENOrdering Facility: [facility] Address: [address] [place] [address] Performed By: #### 5 8410-2 ####[facility] LABCLIA [id number] [place] [address] [place] Hematocrit (Bld) [Volume fraction] 23.2 % Low 39.0-51.0 [facility] Comment on above: Order Comment: Speci men Type: BLOOD SPECIMENOrdering Facility: [facility] Address: [address] [place] [address] Performed By: #### 5 8410-2 ####[facility] LABCLIA [id number] [facility] [place] [address] [place] Hemoglobin (Bld) [Mass/Vol] 7.8 g/dL Low 13.0-17.0 [facility] Comment on above: Order Comment: Speci men Type: BLOOD SPECIMENOrdering Facility: [facility] Address: [address] [place] [address] Performed By: #### 5 8410-2 ####[facility] [place] LABCLIA [id number] [place] [address] [place] MCH (RBC) [Entitic mass] 27.7 pg Normal 26.0-34.0 [facility] Comment on above: Order Comment: Speci men Type: BLOOD SPECIMENOrdering Facility: [facility] Address: [address] [place] [address] Performed By: #### 5 8410-2 ####[facility] LABCLIA [id number] [place] [address] [place] [facility] MCHC (RBC) [Mass/Vol] 33.6 g/dL Normal 30.5-36.0 [facility] Comment on above: Order Comment: Speci men Type: BLOOD SPECIMENOrdering Facility: [facility] Address: [address] [place] [address] Performed By: #### 5 8410-2 ####[facility] LABCLIA [id number] [place] [address] [place] MCV (RBC) [Entitic vol] 82.3 fL Normal 80.0-100.0 [facility] Comment on above: Order Comment: Speci men Type: BLOOD SPECIMENOrdering Facility: [facility] Address: [address] [place] [address] Performed By: #### 5 8410-2 ####[facility] LABCLIA [id number] [place] [id number] [facility] [place] Platelet mean volume (Bld) [Entitic vol] Normal [facility] Comment on above: Order Comment: Speci men Type: BLOOD SPECIMENOrdering Facility: [facility] Address: [address] [place] [address] Result Comment: Unab le to Report. Performed By: #### 5 8410-2 ####[facility] LABCLIA [id number] [place] [address] [place] Platelets (Bld) [#/Vol] 55 10*3/uL Low 150-400 [facility] Comment on above: Order Comment: Speci men Type: BLOOD SPECIMENOrdering Facility: [facility] Address: [address] [place] [address] Result Comment: Resu lts checked and verified.No clot detected. Performed By: #### 5 8410-2 ####[facility] [place] LABCLIA [id number] [facility] [place] [address] [place] RBC (Bld) [#/Vol] 2.82 10*6/uL Low 4.20-6.00 [facility] Comment on above: Order Comment: Speci men Type: BLOOD SPECIMENOrdering Facility: [facility] Address: [address] [place] [address] Performed By: #### 5 8410-2 ####[facility] LABCLIA [id number] [place] [address] [place] WBC (Bld) [#/Vol] 4.18 10*3/uL Normal 3.70-11.00 [facility] Comment on above: Order Comment: Speci men Type: BLOOD SPECIMENOrdering Facility: [facility] Address: [address] [place] [address] Performed By: #### 5 8410-2 ####[facility] LABCLIA [id number] [place] [address] [place] Erythrocyte distribution width (RBC) [Ratio] 13.9 % Normal 11.5-15.0 [facility] Comment on above: Order Comment: Speci men Type: BLOOD SPECIMENOrdering Facility: [facility] Address: [address] [place] [address] Performed By: #### 5 8410-2 ####[facility] LABCLIA [id number] [place] [address] [facility] Hematocrit (Bld) [Volume fraction] 20.0 % Low 39.0-51.0 [facility] Comment on above: Order Comment: Speci men Type: BLOOD SPECIMENOrdering Facility: [facility] Address: [address] [place] [address] Performed By: #### 5 8410-2 ####[facility] LABCLIA [id number] [facility] [place] [address] [place] Hemoglobin (Bld) [Mass/Vol] 6.8 g/dL Low 13.0-17.0 [facility] Comment on above: Order Comment: Speci men Type: BLOOD SPECIMENOrdering Facility: [facility] Address: [address] [place] [address] Performed By: #### 5 8410-2 ####[facility] LABCLIA [id number] [place] [address] [place] [facility] MCH (RBC) [Entitic mass] 29.2 pg Normal 26.0-34.0 [facility] Comment on above: Order Comment: Speci men Type: BLOOD SPECIMENOrdering Facility: [facility] Address: [address] [place] [address] Performed By: #### 5 8410-2 ####[facility] LABCLIA [id number] [address] STATES OF [facility] MCHC (RBC) [Mass/Vol] 34.0 g/dL Normal 30.5-36.0 [facility] Comment on above: Order Comment: Speci men Type: BLOOD SPECIMENOrdering Facility: [facility] Address: [address] [place] [address] Performed By: #### 5 8410-2 ####[facility] LABCLIA [id number] [address] MCV (RBC) [Entitic vol] 85.8 fL Normal 80.0-100.0 [facility] Comment on above: Order Comment: Speci men Type: BLOOD SPECIMENOrdering Facility: [facility] Address: [address] [place] [address] Performed By: #### 5 8410-2 ####[facility] LABCLIA [id number] [place] [address] [place] [facility] Platelet mean volume (Bld) [Entitic vol] 12.2 fL Normal 9.0-12.7 [facility] Comment on above: Order Comment: Speci men Type: BLOOD SPECIMENOrdering Facility: [facility] Address: [address] [place] [address] Performed By: #### 5 8410-2 ####[facility] LABCLIA [id number] [place] [address] [place] Platelets (Bld) [#/Vol] 45 10*3/uL Low 150-400 [facility] Comment on above: Order Comment: Speci men Type: BLOOD SPECIMENOrdering Facility: [facility] Address: [address] [place] [address] Performed By: #### 5 8410-2 ####[facility] LABCLIA [id number] [place] [address] [place] RBC (Bld) [#/Vol] 2.33 10*6/uL Low 4.20-6.00 [facility] Comment on above: Order Comment: Speci men Type: BLOOD SPECIMENOrdering Facility: [facility] Address: [address] [place] [address] Performed By: #### 5 8410-2 ####[facility] LABCLIA [id number] [place] [address] [facility] WBC (Bld) [#/Vol] 4.61 10*3/uL Normal 3.70-11.00 [facility] Comment on above: Order Comment: Speci men Type: BLOOD SPECIMENOrdering Facility: [facility] Address: [address] [place] [address] Performed By: #### 5 8410-2 ####[facility] LABCLIA [id number] [place] [address] [facility] [place] ECG COMPLETEon 06-04-2024 ECG COMPLETE Normal [facility] HISTORY PHYSICALon HISTORY PHYSICAL Normal [facility] Magnesium SerPl-mCncon 06-04 Magnesium [Mass/Vol] 1.8 mg/dL Normal 1.7-2.3 [facility] Comment on above: Order Comment: Speci men Type: BLOOD SPECIMENOrdering Facility: [facility] Address: [address] [place] [address] Performed By: #### 1 9123-9, 46555-5 ####[facility] LODI LABCLIA [id number] [place] [address] [place] NURSING PROGon 06-04-2024 NURSING PROG Normal [facility] THERAPY NTon 06-04-2024 THERAPY NT Normal [facility] THERAPY NT Normal [facility] TYPE + SCREENon 06-04-2024 ABO B Normal [facility] Comment on above: Order Comment: Speci men Type: BLOOD SPECIMENOrdering Facility: [facility] Address: [address] [place] [address] Performed By: #### T SCR ####[facility] BLOOD BANKCLIA [id number] [address] [place] Rh Nom (Bld) Positive Normal [facility] Comment on above: Order Comment: Speci men Type: BLOOD SPECIMENOrdering Facility: [facility] Address: [address] [place] [address] Performed By: #### T SCR ####[facility] BLOOD BANKCLIA [id number] [address] [place] TYPE AND SCREEN EXPIRATION 06/07/2024 23:59 Normal [facility] Comment on above: Order Comment: Speci men Type: BLOOD SPECIMENOrdering Facility: [facility] Address: [address] [place] [address] Performed By: #### T SCR ####[facility] BLOOD BANKCLIA [id number] [address] [place] CT LUMBAR SPINE WO IVCONon 0 06-03-2024 CT LUMBAR SPINE WO IVCON Normal [facility] ED NOTEon 06-03-2024 ED NOTE HNO ID: [id number] Author: DERRICK MUNGUIA RN Service: Emergency Medicine Author Type: Registered Nurse Type: ED Notes Filed: 06/03/2024 23:16 Note Text: Called and updated Bill LEOS with medications and VS. Patient stable on leaving department. Normal [facility] ED NOTE Normal [facility] ED NOTE Normal [facility] ED NOTE HNO ID: [id number] Author: DERRICK MUNGUIA, DERIC Service: Emergency Medicine Author Type: Registered Nurse Type: ED Notes Filed: 06/03/2024 22:27 Note Text: Assumed care of patient from DERIC Santiago. Normal [facility] ED NOTE HNO ID: [id number] Author: PHILIP DUBOIS, RN Service: Nursing Author Type: Registered Nurse Type: ED Notes Filed: 06/03/2024 20:16 Note Text: Pt reports he tried to lift a batteryman into trunk of car and hurt his back yesterday Normal [facility] ED PROV NOTEon 06-03-2024 ED PROV NOTE Normal [facility] NURSING PROGon 06-03-2024 NURSING PROG Normal [facility] CBC W Auto Differential pane l (Bld)on 06-02-2024 Basophils (Bld) [#[facility]Vol] [facility] Basophils/100 WBC (Bld) 0.2 % [facility] Differential cell count method Nom (Bld) Auto [facility] Eosinophils (Bld) [#/Vol] [facility] Eosinophils/100 WBC (Bld) 0 % [facility] Erythrocyte distribution width (RBC) [Ratio] 13.4 % 11.5 - 15.0 % [facility] Hematocrit (Bld) [Volume fraction] 22.2 % Low 39.0 - 51.0 % [facility] Hemoglobin (Bld) [Mass/Vol] 7.7 g/dL Low 13.0 - 17.0 g/dL [facility] Immature granulocytes (Bld) [#/Vol] 0.06 10*3/uL [facility] Immature granulocytes/100 WBC (Bld) 1.4 % [facility] Interpretation and review of laboratory results Abnormal [facility] Lymphocytes (Bld) [#/Vol] 1.96 10*3/uL [facility] Lymphocytes/100 WBC (Bld) 46 % [facility] MCH (RBC) [Entitic mass] 29.4 pg 26.0 - 34.0 pg [facility] MCHC (RBC) [Mass/Vol] 34.7 g/dL 30.5 - 36.0 g/dL [facility] MCV (RBC) [Entitic vol] 84.7 fL 80.0 - 100.0 fL [facility] Monocytes (Bld) [#/Vol] 0.37 10*3/uL [facility] Monocytes/100 WBC (Bld) 8.7 % [facility] Neutrophils (Bld) [#/Vol] 1.86 10*3/uL [facility] Neutrophils/100 WBC (Bld) 43.7 % [facility] Nucleated RBC (Bld) [#/Vol] NINF [facility] Nucleated RBC/100 WBC (Bld) [Ratio] 0 % /100 WBC [facility] Platelet mean volume (Bld) [Entitic vol] 12.1 fL 9.0 - 12.7 fL [facility] Platelets (Bld) [#/Vol] 60 10*3/uL Low [facility] Comment on above: No clot detected. RBC (Bld) [#/Vol] 2.62 10*6/uL Low 4.20 - 6.0 0 m/uL [facility] WBC (Bld) [#/Vol] 4.26 10*3/uL [facility] Basophils (Bld) [#/Vol] 10*3/uL Normal <0.11 [facility] Comment on above: Order Comment: Speci men Type: BLOOD SPECIMENOrdering Facility: [facility] Address: [address] [place] [address] Performed By: #### 5 7021-8 ####[facility] LABORATORYCLIA [id number] [address] [place] Basophils/100 WBC (Bld) 0.2 % Normal [facility] Comment on above: Order Comment: Speci men Type: BLOOD SPECIMENOrdering Facility: [facility] Address: [address] [place] [address] Performed By: #### 5 7021-8 ####[facility] LABORATORYCLIA [id number] [address] [place] Differential cell count method Nom (Bld) Auto Normal [facility] Comment on above: Order Comment: Speci men Type: BLOOD SPECIMENOrdering Facility: [facility] Address: [address] [place] [address] Performed By: #### 5 7021-8 ####[facility] LABORATORYCLIA [id number] [address] [place] Eosinophils (Bld) [#/Vol] 10*3/uL Normal <0.46 [facility] Comment on above: Order Comment: Speci men Type: BLOOD SPECIMENOrdering Facility: [facility] Address: [address] [place] [address] Performed By: #### 5 7021-8 ####[facility] LABORATORYCLIA [id number] [address] [place] Eosinophils/100 WBC (Bld) 0.0 % Normal [facility] Comment on above: Order Comment: Speci men Type: BLOOD SPECIMENOrdering Facility: [facility] Address: [address] [place] [address] Performed By: #### 5 7021-8 ####[facility] LABORATORYCLIA [id number] [address] [place] Erythrocyte distribution width (RBC) [Ratio] 13.4 % Normal 11.5-15.0 [facility] Comment on above: Order Comment: Speci men Type: BLOOD SPECIMENOrdering Facility: [facility] Address: [address] [place] [address] Performed By: #### 5 7021-8 ####[facility] LABORATORYCLIA [id number] [address] [place] Hematocrit (Bld) [Volume fraction] 22.2 % Low 39.0-51.0 [facility] Comment on above: Order Comment: Speci men Type: BLOOD SPECIMENOrdering Facility: [facility] Address: [address] [place] [address] Performed By: #### 5 7021-8 ####[facility] LABORATORYCLIA [id number] [address] [place] Hemoglobin (Bld) [Mass/Vol] 7.7 g/dL Low 13.0-17.0 [facility] Comment on above: Order Comment: Speci men Type: BLOOD SPECIMENOrdering Facility: [facility] Address: [address] [place] [address] Performed By: #### 5 7021-8 ####[facility] LABORATORYCLIA [id number] [address] STATES [facility] Immature granulocytes (Bld) [#/Vol] 0.06 10*3/uL Normal <0.10 [facility] Comment on above: Order Comment: Speci men Type: BLOOD SPECIMENOrdering Facility: [facility] Address: [address] [place] [address] Performed By: #### 5 7021-8 ####[facility] LABORATORYCLIA [id number] [address] Immature granulocytes/100 WBC (Bld) 1.4 % Normal [facility] Comment on above: Order Comment: Speci men Type: BLOOD SPECIMENOrdering Facility: [facility] Address: [address] [place] [address] Performed By: #### 5 7021-8 ####[facility] LABORATORYCLIA [id number] [address] Lymphocytes (Bld) [#/Vol] 1.96 10*3/uL Normal 1.00-4.00 [facility] Comment on above: Order Comment: Speci men Type: BLOOD SPECIMENOrdering Facility: [facility] Address: [address] [place] [address] Performed By: #### 5 7021-8 ####[facility] LABORATORYCLIA [id number] [address] Lymphocytes/100 WBC (Bld) 46.0 % Normal [facility] Comment on above: Order Comment: Speci men Type: BLOOD SPECIMENOrdering Facility: [facility] Address: [address] [place] [address] Performed By: #### 5 7021-8 ####[facility] LABORATORYCLIA [id number] [address] MCH (RBC) [Entitic mass] 29.4 pg Normal 26.0-34.0 [facility] Comment on above: Order Comment: Speci men Type: BLOOD SPECIMENOrdering Facility: [facility] Address: [address] [place] [address] Performed By: #### 5 7021-8 ####[facility] LABORATORYCLIA [id number] [address] STATES [facility] MCHC (RBC) [Mass/Vol] 34.7 g/dL Normal 30.5-36.0 [facility] Comment on above: Order Comment: Speci men Type: BLOOD SPECIMENOrdering Facility: [facility] Address: [address] [place] [address] Performed By: #### 5 7021-8 ####[facility] LABORATORYCLIA [id number] [address] MCV (RBC) [Entitic vol] 84.7 fL Normal 80.0-100.0 [facility] Comment on above: Order Comment: Speci men Type: BLOOD SPECIMENOrdering Facility: [facility] Address: [address] [place] [address] Performed By: #### 5 7021-8 ####[facility] LABORATORYCLIA [id number] [address] [place] Monocytes (Bld) [#/Vol] 0.37 10*3/uL Normal <0.87 [facility] Comment on above: Order Comment: Speci men Type: BLOOD SPECIMENOrdering Facility: [facility] Address: [address] [place] [address] Performed By: #### 5 7021-8 ####[facility] LABORATORYCLIA [id number] [address] Monocytes/100 WBC (Bld) 8.7 % Normal [facility] Comment on above: Order Comment: Speci men Type: BLOOD SPECIMENOrdering Facility: [facility] Address: [address] [place] [address] Performed By: #### 5 7021-8 ####[facility] LABORATORYCLIA [id number] [address] [place] Neutrophils (Bld) [#/Vol] 1.86 10*3/uL Normal 1.45-7.50 [facility] Comment on above: Order Comment: Speci men Type: BLOOD SPECIMENOrdering Facility: [facility] Address: [address] [place] [address] Performed By: #### 5 7021-8 ####[facility] LABORATORYCLIA [id number] [address] Neutrophils/100 WBC (Bld) 43.7 % Normal [facility] Comment on above: Order Comment: Speci men Type: BLOOD SPECIMENOrdering Facility: [facility] Address: [address] [place] [address] Performed By: #### 5 7021-8 ####[facility] LABORATORYCLIA [id number] [address] Nucleated RBC (Bld) [#/Vol] 10*3/uL Normal <0.01 [facility] Comment on above: Order Comment: Speci men Type: BLOOD SPECIMENOrdering Facility: [facility] Address: [address] [place] [address] Performed By: #### 5 7021-8 ####[facility] LABORATORYCLIA [id number] [address] Nucleated RBC/100 WBC (Bld) [Ratio] 0.0 /100 WBC Normal [facility] Comment on above: Order Comment: Speci men Type: BLOOD SPECIMENOrdering Facility: [facility] Address: [address] [place] [address] Performed By: #### 5 7021-8 ####[facility] LABORATORYCLIA [id number] [address] Platelet mean volume (Bld) [Entitic vol] 12.1 fL Normal 9.0-12.7 [facility] Comment on above: Order Comment: Speci men Type: BLOOD SPECIMENOrdering Facility: [facility] Address: [address] [place] [address] Performed By: #### 5 7021-8 ####[facility] LABORATORYCLIA [id number] [address] Platelets (Bld) [#/Vol] 60 10*3/uL Low 150-400 [facility] Comment on above: Order Comment: Speci men Type: BLOOD SPECIMENOrdering Facility: [facility] Address: [address] [place] [address] Result Comment: No c lot detected. Performed By: #### 5 7021-8 ####[facility] LABORATORYCLIA [id number] [address] RBC (Bld) [#/Vol] 2.62 10*6/uL Low 4.20-6.00 [facility] Comment on above: Order Comment: Speci men Type: BLOOD SPECIMENOrdering Facility: [facility] Address: [address] [place] [address] Performed By: #### 5 7021-8 ####[facility] LABORATORYCLIA [id number] [address] WBC (Bld) [#/Vol] 4.26 10*3/uL Normal 3.70-11.00 [facility] Comment on above: Order Comment: Speci men Type: BLOOD SPECIMENOrdering Facility: [facility] Address: [address] [place] [address] Performed By: #### 5 7021-8 ####[facility] LABORATORYCLIA [id number] [address] Comprehensive metabolic 2000 panelon 06-02-2024 Albumin [Mass/Vol] 3.8 g/dL Low 3.9 - 4.9 g/dL [facility] ALP [Catalytic activity/Vol] 106 U/L 38 - 113 U/L [facility] ALT With P-5'-P [Catalytic activity/Vol] 14 U/L 10 - 54 U/L [facility] Anion gap [Moles/Vol] 15 mmol/L 8 - 15 mmol/L [facility] AST With P-5'-P [Catalytic activity/Vol] 17 U/L 14 - 40 U/L [facility] Bilirubin [Mass/Vol] 0.2 mg/dL 0.2 - 1 .3 mg/dL [facility] Calcium [Mass/Vol] 9 mg/dL 8.5 - 10. 2 mg/dL [facility] Chloride [Moles/Vol] 102 mmol/L 98 - 10 7 mmol/L [facility] CO2 [Moles/Vol] 19 mmol/L Low 22 - 30 mmol/L [facility] Creatinine [Mass/Vol] 0.97 mg/dL 0.73 - 1.22 mg/dL [facility] GFR/1.73 sq M.predicted among non-blacks MDRD (S/P/Bld) [Vol rate/Area] 78 mL/min/{1.73_m2} - PINF [facility] Comment on above: Estimated Glomerular Filtration Rate (eGFR) is calculated using the 2020 CKD-EPI creatinine equation. This equation utilizes serum creatinine, sex, and age as parameters. The creatinine assay has traceable calibration to isotope dilution-mass spectrometry. Refer to KDIGO guidelines for clinical interpretation. In patients with unstable renal function, e.g. those with acute kidney injury, the eGFR may not accurately reflect actual GFR. Glucose [Mass/Vol] 217 mg/dL High 74 - 99 mg/dL [facility] Comment on above: The [place] [employer] (ADA) provides guidance for cutoff values for fasting glucose and random glucose. The ADA defines fasting as no caloric intake for at least 8 hours. Fasting plasma glucose results between 100 to 125 mg/dL indicate increased risk for diabetes (prediabetes). Fasting plasma glucose results greater than or equal to 126 mg/dL meet the criteria for diagnosis of diabetes. In the absence of unequivocal hyperglycemia, results should be confirmed by repeat testing. In a patient with classic symptoms of hyperglycemia or hyperglycemic crisis, random plasma glucose results greater than or equal to 200 mg/dL meet the criteria for diagnosis of diabetes. Reference: Standards of Medical Care in Diabetes 2016, [employer] [place] [employer]. Diabetes Care. 2016.39(Suppl 1). Interpretation and review of laboratory results Abnormal [facility] Potassium [Moles/Vol] 4.2 mmol/L 3.7 - 5.1 mmol/L [facility] Protein [Mass/Vol] 6.7 g/dL 6.3 - 8.0 g/dL [facility] Sodium [Moles/Vol] 136 mmol/L 136 - 144 mmol/L [facility] Urea nitrogen [Mass/Vol] 23 mg/dL 9 - 24 mg/dL [facility] Albumin [Mass/Vol] 3.8 g/dL Low 3.9-4.9 [facility] Comment on above: Order Comment: Speci men Type: BLOOD SPECIMENOrdering Facility: [facility] Address: [address] [place] [address] Performed By: #### 2 4323-8 ####[facility] LABORATORYCLIA [id number] [address] ALP [Catalytic activity/Vol] 106 U/L Normal 38-113 [facility] Comment on above: Order Comment: Speci men Type: BLOOD SPECIMENOrdering Facility: [facility] Address: [address] [place] [address] Performed By: #### 2 4323-8 ####[facility] LABORATORYCLIA [id number] [address] STATES OF [facility] ALT With P-5'-P [Catalytic activity/Vol] 14 U/L Normal 10-54 [facility] Comment on above: Order Comment: Speci men Type: BLOOD SPECIMENOrdering Facility: [facility] Address: [address] [place] [address] Performed By: #### 2 4323-8 ####[facility] LABORATORYCLIA [id number] [address] Anion gap [Moles/Vol] 15 mmol/L Normal 8-15 [facility] Comment on above: Order Comment: Speci men Type: BLOOD SPECIMENOrdering Facility: [facility] Address: [address] [place] [address] Performed By: #### 2 4323-8 ####[facility] LABORATORYCLIA [id number] [address] [place] AST With P-5'-P [Catalytic activity/Vol] 17 U/L Normal 14-40 [facility] Comment on above: Order Comment: Speci men Type: BLOOD SPECIMENOrdering Facility: [facility] Address: [address] [place] [address] Performed By: #### 2 4323-8 ####[facility] LABORATORYCLIA [id number] [place] [address] [place] Bilirubin [Mass/Vol] 0.2 mg/dL Normal 0.2-1.3 [facility] Comment on above: Order Comment: Speci men Type: BLOOD SPECIMENOrdering Facility: [facility] Address: [address] [place] [address] Performed By: #### 2 4323-8 ####[facility] LABORATORYCLIA [id number] [place] [address] [place] Calcium [Mass/Vol] 9.0 mg/dL Normal 8.5-10.2 [facility] Comment on above: Order Comment: Speci men Type: BLOOD SPECIMENOrdering Facility: [facility] Address: [address] [place] [address] Performed By: #### 2 4323-8 ####[facility] LABORATORYCLIA [id number] [place] [address] [place] Chloride [Moles/Vol] 102 mmol/L Normal 98-107 [facility] Comment on above: Order Comment: Speci men Type: BLOOD SPECIMENOrdering Facility: [facility] Address: [address] [place] [address] Performed By: #### 2 4323-8 ####[facility] LABORATORYCLIA [id number] [place] [address] [place] CO2 [Moles/Vol] 19 mmol/L Low 22-30 [facility] Comment on above: Order Comment: Speci men Type: BLOOD SPECIMENOrdering Facility: [facility] Address: [address] [place] [address] Performed By: #### 2 4323-8 ####[facility]ORATORYCLIA [id number] [place] [address] [place] Creatinine [Mass/Vol] 0.97 mg/dL Normal 0.73-1.22 [facility] Comment on above: Order Comment: Speci men Type: BLOOD SPECIMENOrdering Facility: [facility] Address: [address] [place] [address] Performed By: #### 2 4323-8 ####[facility] LABORATORYCLIA [id number] [place] [address] [place] Creatinine and Glomerular filtration rate.predicted panel (S/P/Bld) 78 mL/min/1.73m??? Normal >=60 [facility] Comment on above: Order Comment: Specmagdalena portillo Type: BLOOD SPECIMENOrdering Facility: [facility] Address: [address] [place] [address] Result Comment: Sharon mated Glomerular Filtration Rate (eGFR) is calculated using the 2020 CKD-EPI creatinine equation. This equation utilizes serum creatinine, sex, and age as parameters. The creatinine assay has traceable calibration to isotope dilution-mass spectrometry. Refer to KDIGO guidelines for clinical interpretation. In patients with unstable renal function, e.g. those with acute kidney injury, the eGFR may not accurately reflect actual GFR. Performed By: #### 2 4323-8 ####[facility] LABORATORYCLIA [id number] [place] [address] [place] Glucose [Mass/Vol] 217 mg/dL High 74-99 [facility] Comment on above: Order Comment: Mathew portillo Type: BLOOD SPECIMENOrdering Facility: [facility] Address: [address] [place] [address] Result Comment: The [place] [employer] (ADA) provides guidance for cutoff values for fasting glucose and random glucose. The ADA defines fasting as no caloric intake for at least 8 hours. Fasting plasma glucose results between 100 to 125 mg/dL indicate increased risk for diabetes (prediabetes).Fasting plasma glucose results greater than or equal to 126 mg/dL meet the criteria for diagnosis of diabetes. In the absence of unequivocal hyperglycemia, results should be confirmed by repeat testing. In a patient with classic symptoms of hyperglycemia or hyperglycemic crisis, random plasma glucose results greater than or equal to 200 mg/dL meet the criteria for diagnosis of diabetes.Reference: Standards of Medical Care in Diabetes 2016, [place] [employer]. Diabetes Care. 2016.39(Suppl 1). Performed By: #### 2 4323-8 ####[facility] LABORATORYCLIA [id number] [place] [id number] [place] Potassium [Moles/Vol] 4.2 mmol/L Normal 3.7-5.1 [facility] Comment on above: Order Comment: Speci men Type: BLOOD SPECIMENOrdering Facility: [facility] Address: [address] [place] [address] Performed By: #### 2 4323-8 ####[facility] LABORATORYCLIA [id number] [place] [address] [place] Protein [Mass/Vol] 6.7 g/dL Normal 6.3-8.0 [facility] Comment on above: Order Comment: Speci men Type: BLOOD SPECIMENOrdering Facility: [facility] Address: [address] [place] [address] Performed By: #### 2 4323-8 ####[facility] LABORATORYCLIA [id number] [place] [address] [place] Sodium [Moles/Vol] 136 mmol/L Normal 136-144 [facility] Comment on above: Order Comment: Speci men Type: BLOOD SPECIMENOrdering Facility: [facility] Address: [address] [place] [address] Performed By: #### 2 4323-8 ####[facility] LABORATORYCLIA [id number] [place] [address] [place] Urea nitrogen [Mass/Vol] 23 mg/dL Normal 9-24 [facility] Comment on above: Order Comment: Speci men Type: BLOOD SPECIMENOrdering Facility: [facility] Address: [address] [place] [address] Performed By: #### 2 4323-8 ####[facility] LABORATORYCLIA [id number] [place] [address] [place] TYPE + SCREENon 06-02-2024 ABO group Nom (Bld) B [facility] Comment on above: Patient received O p ositive blood on 05/28/24. Blood group antibody screen Ql Negative [facility] Rh Nom (Bld) Positive [facility] Type and Screen Expiration 06/05/2024 23:59 [facility] ABO B Normal [facility] Comment on above: Order Comment: Speci men Type: BLOOD SPECIMENOrdering Facility: [facility] Address: [address] [place] [address] Result Comment: Kasia ent received O positive blood on 05/28/24. Performed By: #### T SCR ####[facility] BLOOD BANKCLIA [id number] [address] Rh Nom (Bld) Positive Normal [facility] Comment on above: Order Comment: Speci men Type: BLOOD SPECIMENOrdering Facility: [facility] Address: [address] [place] [address] Performed By: #### T SCR ####[facility] BLOOD BANKCLIA [id number] [address] TYPE AND SCREEN EXPIRATION 06/05/2024 23:59 Normal [facility] Comment on above: Order Comment: Speci men Type: BLOOD SPECIMENOrdering Facility: [facility] Address: [address] [place] [address] Performed By: #### T SCR ####[facility] BLOOD BANKCLIA [id number] [address] CBC W Auto Differential pane l (Bld)on 05-25-2024 Basophils (Bld) [#/Vol] 0.04 10*3/uL Normal <0.11 [facility] Comment on above: Order Comment: Speci men Type: BLOOD SPECIMENOrdering Facility: [facility] Address: [address] [place] [address] Performed By: #### 5 7021-8 ####[facility] LABCLIA [id number] [address] Basophils/100 WBC (Bld) 0.9 % Normal [facility] Comment on above: Order Comment: Speci men Type: BLOOD SPECIMENOrdering Facility: [facility] Address: [address] [place] [address] Performed By: #### 5 7021-8 ####[facility] LABCLIA [id number] [address] [place] Differential cell count method Nom (Bld) Auto Normal [facility] Comment on above: Order Comment: Speci men Type: BLOOD SPECIMENOrdering Facility: [facility] Address: [address] [place] [address] Performed By: #### 5 7021-8 ####[facility] LABCLIA [id number] [place] [address] [facility] Eosinophils (Bld) [#/Vol] 10*3/uL Normal <0.46 [facility] Comment on above: Order Comment: Speci men Type: BLOOD SPECIMENOrdering Facility: [facility] Address: [address] [place] [address] Performed By: #### 5 7021-8 ####[facility] LABCLIA [id number] [address] Eosinophils/100 WBC (Bld) 0.2 % Normal [facility] Comment on above: Order Comment: Speci men Type: BLOOD SPECIMENOrdering Facility: [facility] Address: [address] [place] [address] Performed By: #### 5 7021-8 ####[facility] LABCLIA [id number] [address] [place] Erythrocyte distribution width (RBC) [Ratio] 13.7 % Normal 11.5-15.0 [facility] Comment on above: Order Comment: Speci men Type: BLOOD SPECIMENOrdering Facility: [facility] Address: [address] [place] [address] Performed By: #### 5 7021-8 ####[facility] LABCLIA [id number] [place] [id number] [facility] Hematocrit (Bld) [Volume fraction] 19.0 % Low 39.0-51.0 [facility] Comment on above: Order Comment: Speci men Type: BLOOD SPECIMENOrdering Facility: [facility] Address: [address] [place] [address] Performed By: #### 5 7021-8 ####[facility] LABCLIA [id number] [place] [address] [place] Hemoglobin (Bld) [Mass/Vol] 6.4 g/dL Low 13.0-17.0 [facility] Comment on above: Order Comment: Speci men Type: BLOOD SPECIMENOrdering Facility: [facility] Address: [address] [place] [address] Performed By: #### 5 7021-8 ####[facility] LABCLIA [id number] [place] [address] [place] Immature granulocytes (Bld) [#/Vol] 0.03 10*3/uL Normal <0.10 [facility] Comment on above: Order Comment: Speci men Type: BLOOD SPECIMENOrdering Facility: [facility] Address: [address] [place] [address] Performed By: #### 5 7021-8 ####[facility] LABCLIA [id number] [place] [address] [place] Immature granulocytes/100 WBC (Bld) 0.7 % Normal [facility] Comment on above: Order Comment: Speci men Type: BLOOD SPECIMENOrdering Facility: [facility] Address: [address] [place] [address] Performed By: #### 5 7021-8 ####[facility] LABCLIA [id number] [place] [address] [place] Lymphocytes (Bld) [#/Vol] 2.26 10*3/uL Normal 1.00-4.00 [facility] Comment on above: Order Comment: Speci men Type: BLOOD SPECIMENOrdering Facility: [facility] Address: [address] [place] [address] Performed By: #### 5 7021-8 ####[facility] LABCLIA [id number] [place] [address] [facility] [place] Lymphocytes/100 WBC (Bld) 49.5 % Normal [facility] Comment on above: Order Comment: Speci men Type: BLOOD SPECIMENOrdering Facility: [facility] Address: [address] [place] [address] Performed By: #### 5 7021-8 ####[facility] LABCLIA [id number] [address] MCH (RBC) [Entitic mass] 29.6 pg Normal 26.0-34.0 [facility] Comment on above: Order Comment: Speci men Type: BLOOD SPECIMENOrdering Facility: [facility] Address: [address] [place] [address] Performed By: #### 5 7021-8 ####[facility] LAB[facility] [id number] [address] [place] [facility] MCHC (RBC) [Mass/Vol] 33.7 g/dL Normal 30.5-36.0 [facility] Comment on above: Order Comment: Speci men Type: BLOOD SPECIMENOrdering Facility: [facility] Address: [address] [place] [address] Performed By: #### 5 7021-8 ####[facility] LABCLIA [id number] [address] MCV (RBC) [Entitic vol] 88.0 fL Normal 80.0-100.0 [facility] Comment on above: Order Comment: Speci men Type: BLOOD SPECIMENOrdering Facility: [facility] Address: [address] [place] [address] Performed By: #### 5 7021-8 ####[facility] LABCLIA [id number] [place] [address] [facility] Monocytes (Bld) [#/Vol] 0.46 10*3/uL Normal <0.87 [facility] Comment on above: Order Comment: Speci men Type: BLOOD SPECIMENOrdering Facility: [facility] Address: [address] [place] [address] Performed By: #### 5 7021-8 ####[facility] LABCLIA [id number] [place] [address] [place] Monocytes/100 WBC (Bld) 10.1 % Normal [facility] Comment on above: Order Comment: Speci men Type: BLOOD SPECIMENOrdering Facility: [facility] Address: [address] [place] [address] Performed By: #### 5 7021-8 ####[facility] LABCLIA [id number] [place] [address] [place] Neutrophils (Bld) [#/Vol] 1.77 10*3/uL Normal 1.45-7.50 [facility] Comment on above: Order Comment: Speci men Type: BLOOD SPECIMENOrdering Facility: [facility] Address: [address] [place] [address] Performed By: #### 5 7021-8 ####[facility] LABCLIA [id number] [place] [address] [place] Neutrophils/100 WBC (Bld) 38.6 % Normal [facility] Comment on above: Order Comment: Speci men Type: BLOOD SPECIMENOrdering Facility: [facility] Address: [address] [place] [address] Performed By: #### 5 7021-8 ####[facility] LABCLIA [id number] [place] [address] [place] Nucleated RBC (Bld) [#/Vol] Normal [facility] Comment on above: Order Comment: Speci men Type: BLOOD SPECIMENOrdering Facility: [facility] Address: [address] [place] [address] Performed By: #### 5 7021-8 ####[facility] LABCLIA [id number] [place] [address] [place] Nucleated RBC/100 WBC (Bld) [Ratio] Normal [facility] Comment on above: Order Comment: Speci men Type: BLOOD SPECIMENOrdering Facility: [facility] Address: [address] [place] [address] Performed By: #### 5 7021-8 ####[facility] LABCLIA [id number] [place] [address] [place] Platelet mean volume (Bld) [Entitic vol] 12.4 fL Normal 9.0-12.7 [facility] Comment on above: Order Comment: Speci men Type: BLOOD SPECIMENOrdering Facility: [facility] Address: [address] [place] [address] Performed By: #### 5 7021-8 ####[facility] [id number] [facility] [place] [address] [place] Platelets (Bld) [#/Vol] 67 10*3/uL Low 150-400 [facility] Comment on above: Order Comment: Speci men Type: BLOOD SPECIMENOrdering Facility: [facility] Address: [address] [place] [address] Result Comment: No c lot detected. Performed By: #### 5 7021-8 ####[facility] LABCLIA [id number] [place] [address] [place] RBC (Bld) [#/Vol] 2.16 10*6/uL Low 4.20-6.00 [facility] Comment on above: Order Comment: Speci men Type: BLOOD SPECIMENOrdering Facility: [facility] Address: [address] [place] [address] Performed By: #### 5 7021-8 ####[facility] LABCLIA [id number] [facility] [place] [address] [place] WBC (Bld) [#/Vol] 4.57 10*3/uL Normal 3.70-11.00 [facility] Comment on above: Order Comment: Speci men Type: BLOOD SPECIMENOrdering Facility: [facility] Address: [address] [place] [address] Performed By: #### 5 7021-8 ####[facility] LABCLIA [id number] [facility] [place] [address] [facility] [place] TYPE + SCREENon 05-25-2024 ABO B Normal [facility] Comment on above: Order Comment: Speci men Type: BLOOD SPECIMENOrdering Facility: [facility] Address: [address] [place] [address] Performed By: #### T SCR ####[facility] BLOOD BANKCLIA [id number] [address] Rh Nom (Bld) Positive Normal [facility] Comment on above: Order Comment: Speci men Type: BLOOD SPECIMENOrdering Facility: [facility] Address: [address] [place] [address] Performed By: #### T SCR ####[facility] BLOOD BANKCLIA [id number] [address] TYPE AND SCREEN EXPIRATION 05/28/2024 23:59 Normal [facility] Comment on above: Order Comment: Speci men Type: BLOOD SPECIMENOrdering Facility: [facility] Address: [address] [place] [address] Performed By: #### T SCR ####[facility] BLOOD BANKCLIA [id number] [address] CBC W Auto Differential pane l (Bld)on 05-20-2024 Basophils (Bld) [#/Vol] 0.03 10*3/uL Normal <0.11 [facility] Comment on above: Order Comment: Speci men Type: BLOOD SPECIMENOrdering Facility: [facility] Address: [address] [place] [address] Performed By: #### 5 7021-8 ####[facility] LABCLIA [id number] [place], [place] [id number] [place] [address] Basophils/100 WBC (Bld) 0.5 % Normal [facility] Comment on above: Order Comment: Speci men Type: BLOOD SPECIMENOrdering Facility: [facility] Address: [address] [place] [address] Performed By: #### 5 7021-8 ####[facility] LABCLIA [id number] [place] [address] [facility] Differential cell count method Nom (Bld) Auto Normal [facility] Comment on above: Order Comment: Speci men Type: BLOOD SPECIMENOrdering Facility: [facility] Address: [address] [place] [address] Performed By: #### 5 7021-8 ####[facility] LABCLIA [id number] [place] [address] [facility] Eosinophils (Bld) [#/Vol] 0.03 10*3/uL Normal <0.46 [facility] Comment on above: Order Comment: Speci men Type: BLOOD SPECIMENOrdering Facility: [facility] Address: [address] [place] [address] Performed By: #### 5 7021-8 ####[facility] LABCLIA [id number] [address] Eosinophils/100 WBC (Bld) 0.5 % Normal [facility] Comment on above: Order Comment: Speci men Type: BLOOD SPECIMENOrdering Facility: [facility] Address: [address] [place] [address] Performed By: #### 5 7021-8 ####[facility] LABCLIA [id number] [address] Erythrocyte distribution width (RBC) [Ratio] 13.5 % Normal 11.5-15.0 [facility] Comment on above: Order Comment: Speci men Type: BLOOD SPECIMENOrdering Facility: [facility] Address: [address] [place] [address] Performed By: #### 5 7021-8 ####[facility] LABCLIA [id number] [place] [id number] [facility] Hematocrit (Bld) [Volume fraction] 20.8 % Low 39.0-51.0 [facility] Comment on above: Order Comment: Speci men Type: BLOOD SPECIMENOrdering Facility: [facility] Address: [address] [place] [address] Performed By: #### 5 7021-8 ####[facility] LABCLIA [id number] [facility] [place] [address] [place] Hemoglobin (Bld) [Mass/Vol] 7.1 g/dL Low 13.0-17.0 [facility] Comment on above: Order Comment: Speci men Type: BLOOD SPECIMENOrdering Facility: [facility] Address: [address] [place] [address] Performed By: #### 5 7021-8 ####[facility] LABCLIA [id number] [facility] [place] [address] [place] Immature granulocytes (Bld) [#/Vol] 0.04 10*3/uL Normal <0.10 [facility] Comment on above: Order Comment: Speci men Type: BLOOD SPECIMENOrdering Facility: [facility] Address: [address] [place] [address] Performed By: #### 5 7021-8 ####[facility] LABCLIA [id number] [place] [address] [place] Immature granulocytes/100 WBC (Bld) 0.7 % Normal [facility] Comment on above: Order Comment: Speci men Type: BLOOD SPECIMENOrdering Facility: [facility] Address: [address] [place] [address] Performed By: #### 5 7021-8 ####[facility] LABCLIA [id number] [place] [address] [place] Lymphocytes (Bld) [#/Vol] 2.27 10*3/uL Normal 1.00-4.00 [facility] Comment on above: Order Comment: Speci men Type: BLOOD SPECIMENOrdering Facility: [facility] Address: [address] [place] [address] Performed By: #### 5 7021-8 ####[facility] LABCLIA [id number] [place] [address] [place] Lymphocytes/100 WBC (Bld) 39.5 % Normal [facility] Comment on above: Order Comment: Speci men Type: BLOOD SPECIMENOrdering Facility: [facility] Address: [address] [place] [address] Performed By: #### 5 7021-8 ####[facility] LABCLIA [id number] [place], [place] [id number] [place] [address] MCH (RBC) [Entitic mass] 29.5 pg Normal 26.0-34.0 [facility] Comment on above: Order Comment: Speci men Type: BLOOD SPECIMENOrdering Facility: [facility] Address: [address] [place] [address] Performed By: #### 5 7021-8 ####[facility] LABCLIA [id number] [address] [place] [facility] MCHC (RBC) [Mass/Vol] 34.1 g/dL Normal 30.5-36.0 [facility] Comment on above: Order Comment: Speci men Type: BLOOD SPECIMENOrdering Facility: [facility] Address: [address] [place] [address] Performed By: #### 5 7021-8 ####[facility] LABCLIA [id number] [address] MCV (RBC) [Entitic vol] 86.3 fL Normal 80.0-100.0 [facility] Comment on above: Order Comment: Speci men Type: BLOOD SPECIMENOrdering Facility: [facility] Address: [address] [place] [address] Performed By: #### 5 7021-8 ####[facility] LABCLIA [id number] [place] [address] [facility] Monocytes (Bld) [#/Vol] 0.45 10*3/uL Normal <0.87 [facility] Comment on above: Order Comment: Speci men Type: BLOOD SPECIMENOrdering Facility: [facility] Address: [address] [place] [address] Performed By: #### 5 7021-8 ####[facility]CLIA [id number] [facility] [place] [address] [place] Monocytes/100 WBC (Bld) 7.8 % Normal [facility] Comment on above: Order Comment: Speci men Type: BLOOD SPECIMENOrdering Facility: [facility] Address: [address] [place] [address] Performed By: #### 5 7021-8 ####[facility] LABCLIA [id number] [facility] [place] [address] [place] Neutrophils (Bld) [#/Vol] 2.93 10*3/uL Normal 1.45-7.50 [facility] Comment on above: Order Comment: Speci men Type: BLOOD SPECIMENOrdering Facility: [facility] Address: [address] [place] [address] Performed By: #### 5 7021-8 ####[facility] LABCLIA [id number] [facility] [place] [address] [place] Neutrophils/100 WBC (Bld) 51.0 % Normal [facility] Comment on above: Order Comment: Speci men Type: BLOOD SPECIMENOrdering Facility: [facility] Address: [address] [place] [address] Performed By: #### 5 7021-8 ####[facility] LABCLIA [id number] [facility] [place] [address] [place] Nucleated RBC (Bld) [#/Vol] Normal [facility] Comment on above: Order Comment: Speci men Type: BLOOD SPECIMENOrdering Facility: [facility] Address: [address] [place] [address] Performed By: #### 5 7021-8 ####[facility] LABCLIA [id number] [place] [address] [place] Nucleated RBC/100 WBC (Bld) [Ratio] Normal [facility] Comment on above: Order Comment: Speci men Type: BLOOD SPECIMENOrdering Facility: [facility] Address: [address] [place] [address] Performed By: #### 5 7021-8 ####[facility] LABCL[facility] [id number] [place] [address] [place] Platelet mean volume (Bld) [Entitic vol] 11.7 fL Normal 9.0-12.7 [facility] Comment on above: Order Comment: Speci men Type: BLOOD SPECIMENOrdering Facility: [facility] Address: [address] [place] [address] Performed By: #### 5 7021-8 ####[facility] [id number] [facility] [place] [address] [place] [facility] Platelets (Bld) [#/Vol] 46 10*3/uL Low 150-400 [facility] Comment on above: Order Comment: Speci men Type: BLOOD SPECIMENOrdering Facility: [facility] Address: [address] [place] [address] Result Comment: No c lot detected.Platelet count confirmed by manual review of peripheral blood smear. Performed By: #### 5 7021-8 ####[facility] LABCLIA [id number] [place] [address] [place] RBC (Bld) [#/Vol] 2.41 10*6/uL Low 4.20-6.00 [facility] Comment on above: Order Comment: Speci men Type: BLOOD SPECIMENOrdering Facility: [facility] Address: [address] [place] [address] Performed By: #### 5 7021-8 ####[facility] LABCLIA [id number] [place] [address] [place] WBC (Bld) [#/Vol] 5.75 10*3/uL Normal 3.70-11.00 [facility] Comment on above: Order Comment: Speci men Type: BLOOD SPECIMENOrdering Facility: [facility] Address: [address] [place] [address] Performed By: #### 5 7021-8 ####[facility] [id number] [facility] [place] [address] [facility] Comprehensive metabolic 2000 panelon 05-20-2024 Albumin [Mass/Vol] 3.8 g/dL Low 3.9-4.9 [facility] Comment on above: Order Comment: Speci men Type: BLOOD SPECIMENOrdering Facility: [facility] Address: [address] [place] [address] Performed By: #### 2 4323-8 ####[facility] LABCLIA [id number] [facility] [place] [address] [place] [facility] ALP [Catalytic activity/Vol] 92 U/L Normal 38-113 [facility] Comment on above: Order Comment: Speci men Type: BLOOD SPECIMENOrdering Facility: [facility] Address: [address] [place] [address] Performed By: #### 2 4323-8 ####[facility] [place] LABCLIA [id number] [facility] [place] [address] [facility] ALT With P-5'-P [Catalytic activity/Vol] 16 U/L Normal 10-54 [facility] Comment on above: Order Comment: Speci men Type: BLOOD SPECIMENOrdering Facility: [facility] Address: [address] [place] [address] Performed By: #### 2 4323-8 ####[facility] [place] LABCLIA [id number] [place] [address] [facility] Anion gap [Moles/Vol] 17 mmol/L High 8-15 [facility] Comment on above: Order Comment: Speci men Type: BLOOD SPECIMENOrdering Facility: [facility] Address: [address] [place] [address] Performed By: #### 2 4323-8 ####[facility] [place] LABCLIA [id number] [facility] [place] [address] [facility] AST With P-5'-P [Catalytic activity/Vol] 20 U/L Normal 14-40 [facility] Comment on above: Order Comment: Speci men Type: BLOOD SPECIMENOrdering Facility: [facility] Address: [address] [place] [address] Performed By: #### 2 4323-8 ####[facility] [place] LABCLIA [id number] [place] [address] [place] Bilirubin [Mass/Vol] 0.2 mg/dL Normal 0.2-1.3 [facility] Comment on above: Order Comment: Speci men Type: BLOOD SPECIMENOrdering Facility: [facility] Address: [address] [place] [address] Performed By: #### 2 4323-8 ####[facility] [place] LABCLIA [id number] [place] [address] [place] Calcium [Mass/Vol] 9.6 mg/dL Normal 8.5-10.2 [facility] Comment on above: Order Comment: Speci men Type: BLOOD SPECIMENOrdering Facility: [facility] Address: [address] [place] [address] Performed By: #### 2 4323-8 ####[facility] [place] LABCLIA [id number] [facility] [place] [address] [place] Chloride [Moles/Vol] 103 mmol/L Normal 98-107 [facility] Comment on above: Order Comment: Speci men Type: BLOOD SPECIMENOrdering Facility: [facility] Address: [address] [place] [address] Performed By: #### 2 4323-8 ####[facility] [place] LABCLIA [id number] [facility] [place] [address] [place] CO2 [Moles/Vol] 18 mmol/L Low 22-30 [facility] Comment on above: Order Comment: Speci men Type: BLOOD SPECIMENOrdering Facility: [facility] Address: [address] [place] [address] Performed By: #### 2 4323-8 ####[facility] [place] LABCLIA [id number] [place] [address] [place] Creatinine [Mass/Vol] 1.08 mg/dL Normal 0.73-1.22 [facility] Comment on above: Order Comment: Speci lindsey Type: BLOOD SPECIMENOrdering Facility: [facility] Address: [address] [place] [address] Performed By: #### 2 4323-8 ####[facility] LABIA [id number] [place] [address] [place] Creatinine and Glomerular filtration rate.predicted panel (S/P/Bld) 69 mL/min/1.73m??? Normal >=60 [facility] Comment on above: Order Comment: Mathew lindsey Type: BLOOD SPECIMENOrdering Facility: [facility] Address: [address] [place] [address] Result Comment: Sharon mated Glomerular Filtration Rate (eGFR) is calculated using the 2020 CKD-EPI creatinine equation. This equation utilizes serum creatinine, sex, and age as parameters. The creatinine assay has traceable calibration to isotope dilution-mass spectrometry. Refer to KDIGO guidelines for clinical interpretation. In patients with unstable renal function, e.g. those with acute kidney injury, the eGFR may not accurately reflect actual GFR. Performed By: #### 2 4323-8 ####[facility] LABIA [id number] [place] [address] [place] Glucose [Mass/Vol] 191 mg/dL High 74-99 [facility] Comment on above: Order Comment: Mayurmagdalena portillo Type: BLOOD SPECIMENOrdering Facility: [facility] Address: [address] [place] [address] Result Comment: The [place] Diabetes [employer] (ADA) provides guidance for cutoff values for fasting glucose and random glucose. The ADA defines fasting as no caloric intake for at least 8 hours. Fasting plasma glucose results between 100 to 125 mg/dL indicate increased risk for diabetes (prediabetes).Fasting plasma glucose results greater than or equal to 126 mg/dL meet the criteria for diagnosis of diabetes. In the absence of unequivocal hyperglycemia, results should be confirmed by repeat testing. In a patient with classic symptoms of hyperglycemia or hyperglycemic crisis, random plasma glucose results greater than or equal to 200 mg/dL meet the criteria for diagnosis of diabetes.Reference: Standards of Medical Care in Diabetes 2016, [place] [employer]. Diabetes Care. 2016.39(Suppl 1). Performed By: #### 2 4323-8 ####[facility] [place] LABCLIA [id number] [facility] [place] [address] [place] Potassium [Moles/Vol] 4.5 mmol/L Normal 3.7-5.1 [facility] Comment on above: Order Comment: Speci men Type: BLOOD SPECIMENOrdering Facility: [facility] Address: [address] [place] [address] Performed By: #### 2 4323-8 ####[facility] [place] LABCLIA [id number] [facility] [place] [address] [place] Protein [Mass/Vol] 7.2 g/dL Normal 6.3-8.0 [facility] Comment on above: Order Comment: Speci men Type: BLOOD SPECIMENOrdering Facility: [facility] Address: [address] [place] [address] Performed By: #### 2 4323-8 ####[facility] [place] LABCLIA [id number] [place] [address] [place] Sodium [Moles/Vol] 138 mmol/L Normal 136-144 [facility] Comment on above: Order Comment: Speci men Type: BLOOD SPECIMENOrdering Facility: [facility] Address: [address] [place] [address] Performed By: #### 2 4323-8 ####[facility] [place] LABCLIA [id number] [place] [address] [place] Urea nitrogen [Mass/Vol] 26 mg/dL High 9-24 [facility] Comment on above: Order Comment: Speci men Type: BLOOD SPECIMENOrdering Facility: [facility] Address: [address] [place] [address] Performed By: #### 2 4323-8 ####[facility] [place] LABCLIA [id number] [place] [address] [place] TYPE + SCREENon 05-20-2024 ABO B Normal [facility] Comment on above: Order Comment: Speci men Type: BLOOD SPECIMENOrdering Facility: [facility] Address: [address] [place] [address] Performed By: #### T SCR ####[facility] BLOOD BANKCLIA [id number] [place] [id number] [facility] Rh Nom (Bld) Positive Normal [facility] Comment on above: Order Comment: Speci men Type: BLOOD SPECIMENOrdering Facility: [facility] Address: [address] [place] [address] Performed By: #### T SCR ####[facility] BLOOD BANKCLIA [id number] [place] [id number] [facility] TYPE AND SCREEN EXPIRATION 05/23/2024 23:59 Normal [facility] Comment on above: Order Comment: Speci men Type: BLOOD SPECIMENOrdering Facility: [facility] Address: [address] [place] [address] Performed By: #### T SCR ####[facility] BLOOD BANKCLIA [id number] [place] [id number] [facility] [place] CBC W Auto Differential pane l (Bld)on 05-05-2024 Basophils (Bld) [#/Vol] NINF [facility] Basophils/100 WBC (Bld) 0.4 % [facility] Differential cell count method Nom (Bld) Auto [facility] Eosinophils (Bld) [#/Vol] NINF [facility] Eosinophils/100 WBC (Bld) 0.4 % [facility] Erythrocyte distribution width (RBC) [Ratio] 14.4 % 11.5 - 15.0 % [facility] Hematocrit (Bld) [Volume fraction] 18.5 % Low 39.0 - 51.0 % [facility] Hemoglobin (Bld) [Mass/Vol] 6.4 g/dL Low 13.0 - 17.0 g/dL [facility] Immature granulocytes (Bld) [#/Vol] NINF [facility] Immature granulocytes/100 WBC (Bld) 0.4 % [facility] Interpretation and review of laboratory results Abnormal [facility] Lymphocytes (Bld) [#/Vol] 1.8 10*3/uL [facility] Lymphocytes/100 WBC (Bld) 36.4 % [facility] MCH (RBC) [Entitic mass] 29.4 pg 26.0 - 34.0 pg [facility] MCHC (RBC) [Mass/Vol] 34.6 g/dL 30.5 - 36.0 g/dL [facility] MCV (RBC) [Entitic vol] 84.9 fL 80.0 - 100.0 fL [facility] Monocytes (Bld) [#/Vol] 0.24 10*3/uL [facility] Monocytes/100 WBC (Bld) 4.9 % [facility] Neutrophils (Bld) [#/Vol] 2.84 10*3/uL [facility] Neutrophils/100 WBC (Bld) 57.5 % [facility] Nucleated RBC (Bld) [#/Vol] 0.02 10*3/uL High [facility] Nucleated RBC/100 WBC (Bld) [Ratio] 0.4 % /100 WBC [facility] Platelet mean volume (Bld) [Entitic vol] 11.7 fL 9.0 - 12.7 fL [facility] Platelets (Bld) [#/Vol] 53 10*3/uL Low [facility] Comment on above: No clot detected. RBC (Bld) [#/Vol] 2.18 10*6/uL Low 4.20 - 6.0 0 m/uL [facility] WBC (Bld) [#/Vol] 4.94 10*3/uL [facility] Basophils (Bld) [#/Vol] 10*3/uL Normal <0.11 [facility] Comment on above: Order Comment: Speci men Type: BLOOD SPECIMENOrdering Facility: [facility] Address: [address] [place] [address] Performed By: #### 5 7021-8 ####[facility] LABORATORYCLIA [id number] [address] [place] Basophils/100 WBC (Bld) 0.4 % Normal [facility] Comment on above: Order Comment: Speci men Type: BLOOD SPECIMENOrdering Facility: [facility] Address: [address] [place] [address] Performed By: #### 5 7021-8 ####[facility] LABORATORYCLIA [id number] [address] Differential cell count method Nom (Bld) Auto Normal [facility] Comment on above: Order Comment: Speci men Type: BLOOD SPECIMENOrdering Facility: [facility] Address: [address] [place] [address] Performed By: #### 5 7021-8 ####[facility] LABORATORYCLIA [id number] [address] [place] Eosinophils (Bld) [#/Vol] 10*3/uL Normal <0.46 [facility] Comment on above: Order Comment: Speci men Type: BLOOD SPECIMENOrdering Facility: [facility] Address: [address] [place] [address] Performed By: #### 5 7021-8 ####[facility] LABORATORYCLIA [id number] [address] Eosinophils/100 WBC (Bld) 0.4 % Normal [facility] Comment on above: Order Comment: Speci men Type: BLOOD SPECIMENOrdering Facility: [facility] Address: [address] [place] [address] Performed By: #### 5 7021-8 ####[facility] LABORATORYCLIA [id number] [address] Erythrocyte distribution width (RBC) [Ratio] 14.4 % Normal 11.5-15.0 [facility] Comment on above: Order Comment: Speci men Type: BLOOD SPECIMENOrdering Facility: [facility] Address: [address] [place] [address] Performed By: #### 5 7021-8 ####[facility] LABORATORYCLIA [id number] [address] Hematocrit (Bld) [Volume fraction] 18.5 % Low 39.0-51.0 [facility] Comment on above: Order Comment: Speci men Type: BLOOD SPECIMENOrdering Facility: [facility] Address: [address] [place] [address] Performed By: #### 5 7021-8 ####[facility]ORATORYCLIA [id number] [place] [address] [place] Hemoglobin (Bld) [Mass/Vol] 6.4 g/dL Low 13.0-17.0 [facility] Comment on above: Order Comment: Speci men Type: BLOOD SPECIMENOrdering Facility: [facility] Address: [address] [place] [address] Performed By: #### 5 7021-8 ####[facility]ORATORYCLIA [id number] [address] [place] Immature granulocytes (Bld) [#/Vol] 10*3/uL Normal <0.10 [facility] Comment on above: Order Comment: Speci men Type: BLOOD SPECIMENOrdering Facility: [facility] Address: [address] [place] [address] Performed By: #### 5 7021-8 ####[facility] LABORATORYCLIA [id number] [address] [place] Immature granulocytes/100 WBC (Bld) 0.4 % Normal [facility] Comment on above: Order Comment: Speci men Type: BLOOD SPECIMENOrdering Facility: [facility] Address: [address] [place] [address] Performed By: #### 5 7021-8 ####[facility] LABORATORYCLIA [id number] [address] [place] Lymphocytes (Bld) [#/Vol] 1.80 10*3/uL Normal 1.00-4.00 [facility] Comment on above: Order Comment: Speci men Type: BLOOD SPECIMENOrdering Facility: [facility] Address: [address] [place] [address] Performed By: #### 5 7021-8 ####[facility]ORATORYCLIA [id number] [address] [place] Lymphocytes/100 WBC (Bld) 36.4 % Normal [facility] Comment on above: Order Comment: Speci men Type: BLOOD SPECIMENOrdering Facility: [facility] Address: [address] [place], [place] [id number] Performed By: #### 5 7021-8 ####[facility] LABORATORYCLIA [id number] [address] MCH (RBC) [Entitic mass] 29.4 pg Normal 26.0-34.0 [facility] Comment on above: Order Comment: Speci men Type: BLOOD SPECIMENOrdering Facility: [facility] Address: [address] [place] [address] Performed By: #### 5 7021-8 ####[facility] LABORATORYCLIA [id number] [address] [place] MCHC (RBC) [Mass/Vol] 34.6 g/dL Normal 30.5-36.0 [facility] Comment on above: Order Comment: Speci men Type: BLOOD SPECIMENOrdering Facility: [facility] Address: [address] [place] [address] Performed By: #### 5 7021-8 ####[facility] LABORATORYCLIA [id number] [address] STATES OF [facility] MCV (RBC) [Entitic vol] 84.9 fL Normal 80.0-100.0 [facility] Comment on above: Order Comment: Speci men Type: BLOOD SPECIMENOrdering Facility: [facility] Address: [address] [place] [address] Performed By: #### 5 7021-8 ####[facility] LABORATORYCLIA [id number] [address] [place] Monocytes (Bld) [#/Vol] 0.24 10*3/uL Normal <0.87 [facility] Comment on above: Order Comment: Speci men Type: BLOOD SPECIMENOrdering Facility: [facility] Address: [address] [place] [address] Performed By: #### 5 7021-8 ####[facility] LABORATORYCLIA [id number] [address] Monocytes/100 WBC (Bld) 4.9 % Normal [facility] Comment on above: Order Comment: Speci men Type: BLOOD SPECIMENOrdering Facility: [facility] Address: [address] [place] [address] Performed By: #### 5 7021-8 ####[facility] LABORATORYCLIA [id number] [place] [address] [place] Neutrophils (Bld) [#/Vol] 2.84 10*3/uL Normal 1.45-7.50 [facility] Comment on above: Order Comment: Speci men Type: BLOOD SPECIMENOrdering Facility: [facility] Address: [address] [place] [address] Performed By: #### 5 7021-8 ####[facility] LABORATORYCLIA [id number] [address] [place] Neutrophils/100 WBC (Bld) 57.5 % Normal [facility] Comment on above: Order Comment: Speci men Type: BLOOD SPECIMENOrdering Facility: [facility] Address: [address] [place] [address] Performed By: #### 5 7021-8 ####[facility] LABORATORYCLIA [id number] [place] [address] [place] Nucleated RBC (Bld) [#/Vol] 0.02 10*3/uL High <0.01 [facility] Comment on above: Order Comment: Speci men Type: BLOOD SPECIMENOrdering Facility: [facility] Address: [address] [place] [address] Performed By: #### 5 7021-8 ####[facility] LABORATORYCLIA [id number] [place] [address] [place] Nucleated RBC/100 WBC (Bld) [Ratio] 0.4 /100 WBC Normal [facility] Comment on above: Order Comment: Speci men Type: BLOOD SPECIMENOrdering Facility: [facility] Address: [address] [place] [address] Performed By: #### 5 7021-8 ####[facility]ORATORYCLIA [id number] [place] [address] [place] Platelet mean volume (Bld) [Entitic vol] 11.7 fL Normal 9.0-12.7 [facility] Comment on above: Order Comment: Speci men Type: BLOOD SPECIMENOrdering Facility: [facility] Address: [address] [place] [address] Performed By: #### 5 7021-8 ####[facility] LABORATORYCLIA [id number] [place] [address] [place] Platelets (Bld) [#/Vol] 53 10*3/uL Low 150-400 [facility] Comment on above: Order Comment: Speci men Type: BLOOD SPECIMENOrdering Facility: [facility] Address: [address] [place] [address] Result Comment: No c lot detected. Performed By: #### 5 7021-8 ####[facility] LABORATORYCLIA [id number] [address] [place] RBC (Bld) [#/Vol] 2.18 10*6/uL Low 4.20-6.00 [facility] Comment on above: Order Comment: Speci men Type: BLOOD SPECIMENOrdering Facility: [facility] Address: [address] [place] [address] Performed By: #### 5 7021-8 ####[facility] LABORATORYCLIA [id number] [address] [place] WBC (Bld) [#/Vol] 4.94 10*3/uL Normal 3.70-11.00 [facility] Comment on above: Order Comment: Speci men Type: BLOOD SPECIMENOrdering Facility: [facility] Address: [address] [place] [address] Performed By: #### 5 7021-8 ####[facility] LABORATORYCLIA [id number] [address] [place] CNOVSPon 05-05-2024 CNOVSP Normal [facility] Comprehensive metabolic 2000 panelon 05-05-2024 Albumin [Mass/Vol] 3.7 g/dL Low 3.9 - 4.9 g/dL [facility] ALP [Catalytic activity/Vol] 91 U/L 38 - 113 U/L [facility] ALT With P-5'-P [Catalytic activity/Vol] 15 U/L 10 - 54 U/L [facility] Anion gap [Moles/Vol] 15 mmol/L 8 - 15 mmol/L [facility] AST With P-5'-P [Catalytic activity/Vol] 19 U/L 14 - 40 U/L [facility] Bilirubin [Mass/Vol] 0.2 mg/dL 0.2 - 1 .3 mg/dL [facility] Calcium [Mass/Vol] 9.2 mg/dL 8.5 - 10. 2 mg/dL [facility] Chloride [Moles/Vol] 103 mmol/L 98 - 10 7 mmol/L [facility] CO2 [Moles/Vol] 18 mmol/L Low 22 - 30 mmol/L [facility] Creatinine [Mass/Vol] 0.97 mg/dL 0.73 - 1.22 mg/dL [facility] GFR/1.73 sq M.predicted among non-blacks MDRD (S/P/Bld) [Vol rate/Area] 79 mL/min/{1.73_m2} - PINF [facility] Comment on above: Estimated Glomerular Filtration Rate (eGFR) is calculated using the 2020 CKD-EPI creatinine equation. This equation utilizes serum creatinine, sex, and age as parameters. The creatinine assay has traceable calibration to isotope dilution-mass spectrometry. Refer to KDIGO guidelines for clinical interpretation. In patients with unstable renal function, e.g. those with acute kidney injury, the eGFR may not accurately reflect actual GFR. Glucose [Mass/Vol] 264 mg/dL High 74 - 99 mg/dL [facility] Comment on above: The [place] Di[employer] Association (ADA) provides guidance for cutoff values for fasting glucose and random glucose. The ADA defines fasting as no caloric intake for at least 8 hours. Fasting plasma glucose results between 100 to 125 mg/dL indicate increased risk for diabetes (prediabetes). Fasting plasma glucose results greater than or equal to 126 mg/dL meet the criteria for diagnosis of diabetes. In the absence of unequivocal hyperglycemia, results should be confirmed by repeat testing. In a patient with classic symptoms of hyperglycemia or hyperglycemic crisis, random plasma glucose results greater than or equal to 200 mg/dL meet the criteria for diagnosis of diabetes. Reference: Standards of Medical Care in Diabetes 2016, [place] [employer]. Diabetes Care. 2016.39(Suppl 1). Interpretation and review of laboratory results Abnormal [facility] Potassium [Moles/Vol] 4.4 mmol/L 3.7 - 5.1 mmol/L [facility] Protein [Mass/Vol] 6.6 g/dL 6.3 - 8.0 g/dL [facility] Sodium [Moles/Vol] 136 mmol/L 136 - 144 mmol/L [facility] Urea nitrogen [Mass/Vol] 22 mg/dL 9 - 24 mg/dL [facility] Albumin [Mass/Vol] 3.7 g/dL Low 3.9-4.9 [facility] Comment on above: Order Comment: Speci men Type: BLOOD SPECIMENOrdering Facility: [facility] Address: [address] [place] [address] Performed By: #### 2 4323-8 ####[facility] LABORATORYCLIA [id number] [address] STATES OF [facility] ALP [Catalytic activity/Vol] 91 U/L Normal 38-113 [facility] Comment on above: Order Comment: Speci men Type: BLOOD SPECIMENOrdering Facility: [facility] Address: [address] [place] [address] Performed By: #### 2 4323-8 ####[facility] LABORATORYCLIA [id number] [place] [address] [place] ALT With P-5'-P [Catalytic activity/Vol] 15 U/L Normal 10-54 [facility] Comment on above: Order Comment: Speci men Type: BLOOD SPECIMENOrdering Facility: [facility] Address: [address] [place] [address] Performed By: #### 2 4323-8 ####[facility] LABORATORYCLIA [id number] [place] [address] [place] Anion gap [Moles/Vol] 15 mmol/L Normal 8-15 [facility] Comment on above: Order Comment: Speci men Type: BLOOD SPECIMENOrdering Facility: [facility] Address: [facility] [place] [place] [address] Performed By: #### 2 4323-8 ####[facility] LABORATORYCLIA [id number] [place] [address] [place] AST With P-5'-P [Catalytic activity/Vol] 19 U/L Normal 14-40 [facility] Comment on above: Order Comment: Speci men Type: BLOOD SPECIMENOrdering Facility: [facility] Address: [address] [place] [address] Performed By: #### 2 4323-8 ####[facility] LABORATORYCLIA [id number] [place] [address] [place] Bilirubin [Mass/Vol] 0.2 mg/dL Normal 0.2-1.3 [facility] Comment on above: Order Comment: Speci men Type: BLOOD SPECIMENOrdering Facility: [facility] Address: [address] [place] [address] Performed By: #### 2 4323-8 ####[facility]ORATORYCLIA [id number] [place] [address] [place] Calcium [Mass/Vol] 9.2 mg/dL Normal 8.5-10.2 [facility] Comment on above: Order Comment: Speci men Type: BLOOD SPECIMENOrdering Facility: [facility] Address: [address] [place] [address] Performed By: #### 2 4323-8 ####[facility]ORATORYCLIA [id number] [place] [address] [place] Chloride [Moles/Vol] 103 mmol/L Normal 98-107 [facility] Comment on above: Order Comment: Speci men Type: BLOOD SPECIMENOrdering Facility: [facility] Address: [address] [place] [address] Performed By: #### 2 4323-8 ####[facility]ORATORYCLIA [id number] [place] [address] [place] CO2 [Moles/Vol] 18 mmol/L Low 22-30 [facility] Comment on above: Order Comment: Speci men Type: BLOOD SPECIMENOrdering Facility: [facility] Address: [address] [place] [address] Performed By: #### 2 4323-8 ####[facility] LABORATORYCLIA [id number] [place] [id number] [place] Creatinine [Mass/Vol] 0.97 mg/dL Normal 0.73-1.22 [facility] Comment on above: Order Comment: [facility] Type: BLOOD SPECIMENOrdering Facility: [facility] Address: [address] [place] [address] Performed By: #### 2 4323-8 ####[facility] LABORATORYCLIA [id number] [address] Creatinine and Glomerular filtration rate.predicted panel (S/P/Bld) 79 mL/min/1.73m??? Normal >=60 [facility] Comment on above: Order Comment: [facility] Type: BLOOD SPECIMENOrdering Facility: [facility] Address: [address] [place] [address] Result Comment: Sharon mated Glomerular Filtration Rate (eGFR) is calculated using the 2020 CKD-EPI creatinine equation. This equation utilizes serum creatinine, sex, and age as parameters. The creatinine assay has traceable calibration to isotope dilution-mass spectrometry. Refer to KDIGO guidelines for clinical interpretation. In patients with unstable renal function, e.g. those with acute kidney injury, the eGFR may not accurately reflect actual GFR. Performed By: #### 2 4323-8 ####[facility] LABORATORYCLIA [id number] [place] [id number] [place] Glucose [Mass/Vol] 264 mg/dL High 74-99 [facility] Comment on above: Order Comment: Mayuri lindsey Type: BLOOD SPECIMENOrdering Facility: [facility] Address: [address] [place] [address] Result Comment: The [place] [employer] (ADA) provides guidance for cutoff values for fasting glucose and random glucose. The ADA defines fasting as no caloric intake for at least 8 hours. Fasting plasma glucose results between 100 to 125 mg/dL indicate increased risk for diabetes (prediabetes).Fasting plasma glucose results greater than or equal to 126 mg/dL meet the criteria for diagnosis of diabetes. In the absence of unequivocal hyperglycemia, results should be confirmed by repeat testing. In a patient with classic symptoms of hyperglycemia or hyperglycemic crisis, random plasma glucose results greater than or equal to 200 mg/dL meet the criteria for diagnosis of diabetes.Reference: Standards of Medical Care in Diabetes 2016, [employer] [place] [employer]. Diabetes Care. 2016.39(Suppl 1). Performed By: #### 2 4323-8 ####[facility] LABORATORYCLIA [id number] [place] [address] [place] Potassium [Moles/Vol] 4.4 mmol/L Normal 3.7-5.1 [facility] Comment on above: Order Comment: Speci men Type: BLOOD SPECIMENOrdering Facility: [facility] Address: [address] [place] [address] Performed By: #### 2 4323-8 ####[facility] LABORATORYCLIA [id number] [place] [address] [place] Protein [Mass/Vol] 6.6 g/dL Normal 6.3-8.0 [facility] Comment on above: Order Comment: Speci men Type: BLOOD SPECIMENOrdering Facility: [facility] Address: [address] [place] [address] Performed By: #### 2 4323-8 ####[facility] LABORATORYCLIA [id number] [place] [address] [place] Sodium [Moles/Vol] 136 mmol/L Normal 136-144 [facility] Comment on above: Order Comment: Speci men Type: BLOOD SPECIMENOrdering Facility: [facility] Address: [address] [place] [address] Performed By: #### 2 4323-8 ####[facility] LABORATORYCLIA [id number] [place] [address] [place] Urea nitrogen [Mass/Vol] 22 mg/dL Normal 9-24 [facility] Comment on above: Order Comment: Speci men Type: BLOOD SPECIMENOrdering Facility: [facility] Address: [address] [place] [address] Performed By: #### 2 4323-8 ####[facility]ATORYCLIA [id number] [address] [place] TYPE + SCREENon 05-05-2024 ABO group Nom (Bld) B [facility] Blood group antibody screen Ql Negative [facility] Rh Nom (Bld) Positive [facility] Type and Screen Expiration 05/08/2024 23:59 [facility] ABO B Normal [facility] Comment on above: Order Comment: Speci men Type: BLOOD SPECIMENOrdering Facility: [facility] Address: [address] [place] [address] Performed By: #### T SCR ####[facility] BLOOD BANKCLIA [id number] [address] Rh Nom (Bld) Positive Normal [facility] Comment on above: Order Comment: Speci men Type: BLOOD SPECIMENOrdering Facility: [facility] Address: [address] [place] [address] Performed By: #### T SCR ####[facility] BLOOD BANKCLIA [id number] [address] TYPE AND SCREEN EXPIRATION 05/08/2024 23:59 Normal [facility] Comment on above: Order Comment: Speci men Type: BLOOD SPECIMENOrdering Facility: [facility] Address: [address] [place] [address] Performed By: #### T SCR ####[facility] BLOOD BANKCLIA [id number] [address] [place] CBC W Auto Differential pane l (Bld)on 04-27-2024 Basophils (Bld) [#/Vol] 0.04 10*3/uL Normal <0.11 [facility] Comment on above: Order Comment: Speci men Type: BLOOD SPECIMENOrdering Facility: [facility] Address: [address] [place] [address] Performed By: #### 5 7021-8 ####[facility] LODI LABCLIA [id number] [place] [address] Basophils/100 WBC (Bld) 0.6 % Normal [facility] Comment on above: Order Comment: Speci men Type: BLOOD SPECIMENOrdering Facility: [facility] Address: [address] [place] [address] Performed By: #### 5 7021-8 ####[facility] LABCLIA [id number] [facility] [place] [address] [facility] [place] Differential cell count method Nom (Bld) Auto Normal [facility] Comment on above: Order Comment: Speci men Type: BLOOD SPECIMENOrdering Facility: [facility] Address: [address] [place] [address] Performed By: #### 5 7021-8 ####[facility] LABCLIA [id number] [facility] [place] [address] [facility] [place] Eosinophils (Bld) [#/Vol] 10*3/uL Normal <0.46 [facility] Comment on above: Order Comment: Speci men Type: BLOOD SPECIMENOrdering Facility: [facility] Address: [address] [place] [address] Performed By: #### 5 7021-8 ####[facility] LABCLIA [id number] [place] [address] [facility] Eosinophils/100 WBC (Bld) 0.3 % Normal [facility] Comment on above: Order Comment: Speci men Type: BLOOD SPECIMENOrdering Facility: [facility] Address: [address] [place] [address] Performed By: #### 5 7021-8 ####[facility] LABCLIA [id number] [facility] [place] [address] [place] Erythrocyte distribution width (RBC) [Ratio] 14.9 % Normal 11.5-15.0 [facility] Comment on above: Order Comment: Speci men Type: BLOOD SPECIMENOrdering Facility: [facility] Address: [address] [place] [address] Performed By: #### 5 7021-8 ####[facility] LABCLIA [id number] [place] [address] [facility] [place] Hematocrit (Bld) [Volume fraction] 24.1 % Low 39.0-51.0 [facility] Comment on above: Order Comment: Speci men Type: BLOOD SPECIMENOrdering Facility: [facility] Address: [address] [place] [address] Performed By: #### 5 7021-8 ####[facility] L[facility] LABCLIA [id number] [place] [address] [place] Hemoglobin (Bld) [Mass/Vol] 8.1 g/dL Low 13.0-17.0 [facility] Comment on above: Order Comment: Speci men Type: BLOOD SPECIMENOrdering Facility: [facility] Address: [address] [place] [address] Performed By: #### 5 7021-8 ####[facility] L[facility] LABCLIA [id number] [address] [place] Immature granulocytes (Bld) [#/Vol] 0.05 10*3/uL Normal <0.10 [facility] Comment on above: Order Comment: Speci men Type: BLOOD SPECIMENOrdering Facility: [facility] Address: [address] [place] [address] Performed By: #### 5 7021-8 ####[facility] LABCLIA [id number] [place] [address] [facility] Immature granulocytes/100 WBC (Bld) 0.7 % Normal [facility] Comment on above: Order Comment: Speci men Type: BLOOD SPECIMENOrdering Facility: [facility] Address: [address] [place] [address] Performed By: #### 5 7021-8 ####[facility] LABCLIA [id number] [place] [id number] [place] Lymphocytes (Bld) [#/Vol] 2.45 10*3/uL Normal 1.00-4.00 [facility] Comment on above: Order Comment: Speci men Type: BLOOD SPECIMENOrdering Facility: [facility] Address: [address] [place] [address] Performed By: #### 5 7021-8 ####[facility] LABCLIA [id number] [place] [address] [facility] Lymphocytes/100 WBC (Bld) 34.8 % Normal [facility] Comment on above: Order Comment: Speci men Type: BLOOD SPECIMENOrdering Facility: [facility] Address: [address] [place] [address] Performed By: #### 5 7021-8 ####[facility] LABCLIA [id number] [place] [address] [place] [facility] MCH (RBC) [Entitic mass] 29.6 pg Normal 26.0-34.0 [facility] Comment on above: Order Comment: Speci men Type: BLOOD SPECIMENOrdering Facility: [facility] Address: [address] [place] [address] Performed By: #### 5 7021-8 ####[facility] LABCLIA [id number] [place], [place] [id number] [place] [address] [place] [facility] MCHC (RBC) [Mass/Vol] 33.6 g/dL Normal 30.5-36.0 [facility] Comment on above: Order Comment: Speci men Type: BLOOD SPECIMENOrdering Facility: [facility] Address: [address] [place] [address] Performed By: #### 5 7021-8 ####[facility] LABCLIA [id number] [place] [address] [facility] [place] MCV (RBC) [Entitic vol] 88.0 fL Normal 80.0-100.0 [facility] Comment on above: Order Comment: Speci men Type: BLOOD SPECIMENOrdering Facility: [facility] Address: [address] [place] [address] Performed By: #### 5 7021-8 ####[facility] LABCLIA [id number] [place] [address] [facility] Monocytes (Bld) [#/Vol] 0.42 10*3/uL Normal <0.87 [facility] Comment on above: Order Comment: Speci men Type: BLOOD SPECIMENOrdering Facility: [facility] Address: [address] [place] [address] Performed By: #### 5 7021-8 ####[facility] LABCLIA [id number] [facility] [place] [address] [place] Monocytes/100 WBC (Bld) 6.0 % Normal [facility] Comment on above: Order Comment: Speci men Type: BLOOD SPECIMENOrdering Facility: [facility] Address: [address] [place] [address] Performed By: #### 5 7021-8 ####[facility] LABCLIA [id number] [place] [address] [place] Neutrophils (Bld) [#/Vol] 4.06 10*3/uL Normal 1.45-7.50 [facility] Comment on above: Order Comment: Speci men Type: BLOOD SPECIMENOrdering Facility: [facility] Address: [address] [place] [address] Performed By: #### 5 7021-8 ####[facility] LABCLIA [id number] [place] [address] [place] Neutrophils/100 WBC (Bld) 57.6 % Normal [facility] Comment on above: Order Comment: Speci men Type: BLOOD SPECIMENOrdering Facility: [facility] Address: [address] [place] [address] Performed By: #### 5 7021-8 ####[facility] LABCLIA [id number] [facility] [place] [address] [place] Nucleated RBC (Bld) [#/Vol] Normal [facility] Comment on above: Order Comment: Speci men Type: BLOOD SPECIMENOrdering Facility: [facility] Address: [address] [place] [address] Performed By: #### 5 7021-8 ####[facility] LABCLIA [id number] [facility] [place] [address] [place] Nucleated RBC/100 WBC (Bld) [Ratio] Normal [facility] Comment on above: Order Comment: Speci men Type: BLOOD SPECIMENOrdering Facility: [facility] Address: [address] [place] [address] Performed By: #### 5 7021-8 ####[facility] LABCLIA [id number] [facility] [place] [address] [place] Platelet mean volume (Bld) [Entitic vol] 12.6 fL Normal 9.0-12.7 [facility] Comment on above: Order Comment: Speci men Type: BLOOD SPECIMENOrdering Facility: [facility] Address: [address] [place] [address] Performed By: #### 5 7021-8 ####[facility] LABCLIA [id number] [facility] HOSPITALSKINNYprice [facility] [address] [place] Platelets (Bld) [#/Vol] 73 10*3/uL Low 150-400 [facility] Comment on above: Order Comment: Speci men Type: BLOOD SPECIMENOrdering Facility: [facility] Address: [address] [place] [address] Result Comment: Resu lts checked and verified.No clot detected.Reviewed. Performed By: #### 5 7021-8 ####[facility] LABCLIA [id number] [facility] [place] [address] [place] RBC (Bld) [#/Vol] 2.74 10*6/uL Low 4.20-6.00 [facility] Comment on above: Order Comment: Speci men Type: BLOOD SPECIMENOrdering Facility: [facility] Address: [address] [place] [address] Performed By: #### 5 7021-8 ####[facility] LABCLIA [id number] [place] [address] [place] WBC (Bld) [#/Vol] 7.04 10*3/uL Normal 3.70-11.00 [facility] Comment on above: Order Comment: Speci men Type: BLOOD SPECIMENOrdering Facility: [facility] Address: [address] [place] [address] Performed By: #### 5 7021-8 ####[facility] LABCLIA [id number] [place] [address] [facility] Comprehensive metabolic 2000 panelon 04-27-2024 Albumin [Mass/Vol] 3.9 g/dL Normal 3.9-4.9 [facility] Comment on above: Order Comment: Speci men Type: BLOOD SPECIMENOrdering Facility: [facility] Address: [address] [place] [address] Performed By: #### 2 4323-8 ####[facility] LABCLIA [id number] [place] [address] [place] ALP [Catalytic activity/Vol] 92 U/L Normal 38-113 [facility] Comment on above: Order Comment: Speci men Type: BLOOD SPECIMENOrdering Facility: [facility] Address: [address] [place] [address] Performed By: #### 2 4323-8 ####[facility] LABCLIA [id number] [place] [address] [place] ALT With P-5'-P [Catalytic activity/Vol] 15 U/L Normal 10-54 [facility] Comment on above: Order Comment: Speci men Type: BLOOD SPECIMENOrdering Facility: [facility] Address: [address] [place], [place] [address] Performed By: #### 2 4323-8 ####[facility] LABCLIA [id number] [place] [address] [place] Anion gap [Moles/Vol] 12 mmol/L Normal 8-15 [facility] Comment on above: Order Comment: Speci men Type: BLOOD SPECIMENOrdering Facility: [facility] Address: [address] [place], [place] [address] Performed By: #### 2 4323-8 ####[facility] LABCLIA [id number] [facility] [place] [address] [place] AST With P-5'-P [Catalytic activity/Vol] 20 U/L Normal 14-40 [facility] Comment on above: Order Comment: Speci men Type: BLOOD SPECIMENOrdering Facility: [facility] Address: [address] [place] [address] Performed By: #### 2 4323-8 ####[facility] LABCLIA [id number] [facility] [place] [address] [place] Bilirubin [Mass/Vol] 0.3 mg/dL Normal 0.2-1.3 [facility] Comment on above: Order Comment: Speci men Type: BLOOD SPECIMENOrdering Facility: [facility] Address: [address] [place] [address] Performed By: #### 2 4323-8 ####[facility] LABCLIA [id number] [place] [address] [place] Calcium [Mass/Vol] 9.4 mg/dL Normal 8.5-10.2 [facility] Comment on above: Order Comment: Speci men Type: BLOOD SPECIMENOrdering Facility: [facility] Address: [address] [place] [address] Performed By: #### 2 4323-8 ####[facility] LABCLIA [id number] [place] [address] [place] Chloride [Moles/Vol] 106 mmol/L Normal 98-107 [facility] Comment on above: Order Comment: Speci men Type: BLOOD SPECIMENOrdering Facility: [facility] Address: [address] [place] [address] Performed By: #### 2 4323-8 ####[facility] LABCLIA [id number] [facility] [place] [address] [place] CO2 [Moles/Vol] 22 mmol/L Normal 22-30 [facility] Comment on above: Order Comment: Speci men Type: BLOOD SPECIMENOrdering Facility: [facility] Address: [address] [place] [address] Performed By: #### 2 4323-8 ####[facility] LABCLIA [id number] [place] [address] [place] Creatinine [Mass/Vol] 1.00 mg/dL Normal 0.73-1.22 [facility] Comment on above: Order Comment: Mathew portillo Type: BLOOD SPECIMENOrdering Facility: [facility] Address: [address] [place] [address] Performed By: #### 2 4323-8 ####[facility] LABCLIA [id number] [place] [address] [facility] Creatinine and Glomerular filtration rate.predicted panel (S/P/Bld) 76 mL/min/1.73m??? Normal >=60 [facility] Comment on above: Order Comment: Mathew portillo Type: BLOOD SPECIMENOrdering Facility: [facility] Address: [address] [place] [address] Result Comment: Sharon mated Glomerular Filtration Rate (eGFR) is calculated using the 2020 CKD-EPI creatinine equation. This equation utilizes serum creatinine, sex, and age as parameters. The creatinine assay has traceable calibration to isotope dilution-mass spectrometry. Refer to KDIGO guidelines for clinical interpretation. In patients with unstable renal function, e.g. those with acute kidney injury, the eGFR may not accurately reflect actual GFR. Performed By: #### 2 4323-8 ####[facility] LABCLIA [id number] [place] [address] [place] Glucose [Mass/Vol] 210 mg/dL High 74-99 [facility] Comment on above: Order Comment: Mathew lindsey Type: BLOOD SPECIMENOrdering Facility: [facility] Address: [address] [place] [address] Result Comment: The [place] [employer] (ADA) provides guidance for cutoff values for fasting glucose and random glucose. The ADA defines fasting as no caloric intake for at least 8 hours. Fasting plasma glucose results between 100 to 125 mg/dL indicate increased risk for diabetes (prediabetes).Fasting plasma glucose results greater than or equal to 126 mg/dL meet the criteria for diagnosis of diabetes. In the absence of unequivocal hyperglycemia, results should be confirmed by repeat testing. In a patient with classic symptoms of hyperglycemia or hyperglycemic crisis, random plasma glucose results greater than or equal to 200 mg/dL meet the criteria for diagnosis of diabetes.Reference: Standards of Medical Care in Diabetes 2016, [employer] [place] [employer]. Diabetes Care. 2016.39(Suppl 1). Performed By: #### 2 4323-8 ####[employer] [facility] LABCLIA [id number] [place] [address] [place] Potassium [Moles/Vol] 4.7 mmol/L Normal 3.7-5.1 [facility] Comment on above: Order Comment: Mathew portillo Type: BLOOD SPECIMENOrdering Facility: [facility] Address: [address] [place] [address] Performed By: #### 2 4323-8 ####[facility] LABCLIA [id number] [place] [address] [place] Protein [Mass/Vol] 7.0 g/dL Normal 6.3-8.0 [facility] Comment on above: Order Comment: Mayuri lindsey Type: BLOOD SPECIMENOrdering Facility: [facility] Address: [address] [place] [address] Performed By: #### 2 4323-8 ####[employer] [facility] [employer] LABCLIA [id number] [place] [address] [place] Sodium [Moles/Vol] 140 mmol/L Normal 136-144 [facility] Comment on above: Order Comment: Mayuri men Type: BLOOD SPECIMENOrdering Facility: [facility] Address: [address] [place] [address] Performed By: #### 2 4323-8 ####[facility] LABCLIA [id number] [place] [address] [place] Urea nitrogen [Mass/Vol] 20 mg/dL Normal 9-24 [facility] Comment on above: Order Comment: Mayuri men Type: BLOOD SPECIMENOrdering Facility: [facility] [facility] Address: [address] [place] [address] Performed By: #### 2 4323-8 ####[facility] [place] LABCLIA [id number] [place] [address] [place] TYPE + SCREENon 04-27-2024 ABO B Normal [facility] Comment on above: Order Comment: Speci men Type: BLOOD SPECIMENOrdering Facility: [facility] Address: [address] [place] [address] Performed By: #### T SCR ####[facility] BLOOD BANKCLIA [id number] [address] [place] Rh Nom (Bld) Positive Normal [facility] Comment on above: Order Comment: Speci men Type: BLOOD SPECIMENOrdering Facility: [facility] Address: [address] [place] [address] Performed By: #### T SCR ####[facility] BLOOD BANKCLIA [id number] [address] [place] TYPE AND SCREEN EXPIRATION 04/30/2024 23:59 Normal [facility] Comment on above: Order Comment: Speci men Type: BLOOD SPECIMENOrdering Facility: [facility] Address: [address] [place] [address] Performed By: #### T SCR ####[facility] BLOOD BANKCLIA [id number] [address] [place] CNPNon 04-15-2024 CNPN Normal [facility] TYPE + SCREENon 04-15-2024 ABO B Normal [facility] Comment on above: Order Comment: Speci men Type: BLOOD SPECIMENOrdering Facility: [facility] Address: [address] [place] [address] Performed By: #### T SCR ####[facility] BLOOD BANKCLIA [id number] [address] [place] Rh Nom (Bld) Positive Normal [facility] Comment on above: Order Comment: Speci men Type: BLOOD SPECIMENOrdering Facility: [facility] Address: [facility], [place] [address] Performed By: #### T SCR ####[facility] BLOOD BANKCLIA [id number] [place] [address] [facility] TYPE AND SCREEN EXPIRATION 04/18/2024 23:59 Normal [facility] Comment on above: Order Comment: Speci men Type: BLOOD SPECIMENOrdering Facility: [facility] Address: [address] [place] [address] Performed By: #### T SCR ####[facility] BLOOD BANKCLIA [id number] [place] [address] [facility] CBC W Auto Differential pane l (Bld)on 04-14-2024 Anisocytosis Ql (Bld) Present [facility] Basophils (Bld) [#/Vol] NINF [facility] Basophils/100 WBC (Bld) 0.4 % [facility] Differential cell count method Nom (Bld) Auto [facility] Eosinophils (Bld) [#/Vol] [facility] Eosinophils/100 WBC (Bld) 0.2 % [facility] Erythrocyte distribution width (RBC) [Ratio] 16.7 % High 11.5 - 15.0 % [facility] Hematocrit (Bld) [Volume fraction] 20.9 % Low 39.0 - 51.0 % [facility] Hemoglobin (Bld) [Mass/Vol] 6.9 g/dL Low 13.0 - 17.0 g/dL [facility] Immature granulocytes (Bld) [#/Vol] [facility] Immature granulocytes/100 WBC (Bld) 0.4 % [facility] Interpretation and review of laboratory results Abnormal [facility] Lymphocytes (Bld) [#/Vol] 1.52 10*3/uL [facility] Lymphocytes/100 WBC (Bld) 27.9 % [facility] MCH (RBC) [Entitic mass] 29.6 pg 26.0 - 34.0 pg [facility] MCHC (RBC) [Mass/Vol] 33 g/dL 30.5 - 36.0 g/dL [facility] MCV (RBC) [Entitic vol] 89.7 fL 80.0 - 100.0 fL [facility] Monocytes (Bld) [#/Vol] 0.37 10*3/uL [facility] Monocytes/100 WBC (Bld) 6.8 % [facility] Neutrophils (Bld) [#/Vol] 3.51 10*3/uL [facility] Neutrophils/100 WBC (Bld) 64.3 % [facility] Nucleated RBC (Bld) [#/Vol] [facility] Nucleated RBC/100 WBC (Bld) [Ratio] [facility] Platelet mean volume (Bld) [Entitic vol] 11.7 fL 9.0 - 12.7 fL [facility] Platelets (Bld) [#/Vol] 96 10*3/uL Low [facility] Comment on above: No clot detected. Platelets Estimate (Bld) [#/Vol] Decreased [facility] Polychromasia LM Ql (Bld) Slight [facility] RBC (Bld) [#/Vol] 2.33 10*6/uL Low 4.20 - 6.0 0 m/uL [facility] Red Cell Morph Reviewed: see result s of individual morphologies [facility] WBC (Bld) [#/Vol] 5.45 10*3/uL [facility] This is an appended report. These results have been appended to a previously verified report. [facility] Anisocytosis Ql (Bld) Present Normal [facility] Comment on above: Order Comment: Speci men Type: BLOOD SPECIMENOrdering Facility: [facility] Address: [address] [place] [address] Performed By: #### 5 7021-8 ####[facility] LABCLIA [id number] [place] [address] [place] [facility] Basophils (Bld) [#/Vol] 10*3/uL Normal <0.11 [facility] Comment on above: Order Comment: Speci men Type: BLOOD SPECIMENOrdering Facility: [facility] Address: [address] [place] [address] Performed By: #### 5 7021-8 ####[facility] LABCLIA [id number] [place] [address] [place] [facility] Basophils/100 WBC (Bld) 0.4 % Normal [facility] Comment on above: Order Comment: Speci men Type: BLOOD SPECIMENOrdering Facility: [facility] Address: [address] [place] [address] Performed By: #### 5 7021-8 ####[facility] [place] LABCLIA [id number] [place] [address] [facility] [place] Differential cell count method Nom (Bld) Auto Normal [facility] Comment on above: Order Comment: Speci men Type: BLOOD SPECIMENOrdering Facility: [facility] Address: [address] [place] [address] Performed By: #### 5 7021-8 ####[facility] [place] LABCLIA [id number] [facility] [place] [address] [place] Eosinophils (Bld) [#/Vol] 10*3/uL Normal <0.46 [facility] Comment on above: Order Comment: Speci men Type: BLOOD SPECIMENOrdering Facility: [facility] Address: [address] [place] [address] Performed By: #### 5 7021-8 ####[facility] [place] LABCLIA [id number] [place] [address] [facility] Eosinophils/100 WBC (Bld) 0.2 % Normal [facility] Comment on above: Order Comment: Speci men Type: BLOOD SPECIMENOrdering Facility: [facility] Address: [address] [place] [address] Performed By: #### 5 7021-8 ####[facility] [place] LABCLIA [id number] [place] [address] [place] Erythrocyte distribution width (RBC) [Ratio] 16.7 % High 11.5-15.0 [facility] Comment on above: Order Comment: Speci men Type: BLOOD SPECIMENOrdering Facility: [facility] Address: [address] [place] [address] Performed By: #### 5 7021-8 ####[facility] [place] LABCLIA [id number] [place] [address] [place] Hematocrit (Bld) [Volume fraction] 20.9 % Low 39.0-51.0 [facility] Comment on above: Order Comment: Speci men Type: BLOOD SPECIMENOrdering Facility: [facility] Address: [address] [place] [address] Performed By: #### 5 7021-8 ####[facility] [place] LABCLIA [id number] [place] [address] [place] Hemoglobin (Bld) [Mass/Vol] 6.9 g/dL Low 13.0-17.0 [facility] Comment on above: Order Comment: Speci men Type: BLOOD SPECIMENOrdering Facility: [facility] Address: [address] [place] [address] Performed By: #### 5 7021-8 ####[facility] [place] LABCLIA [id number] [place] [address] [place] Immature granulocytes (Bld) [#/Vol] 10*3/uL Normal <0.10 [facility] Comment on above: Order Comment: Speci men Type: BLOOD SPECIMENOrdering Facility: [facility] Address: [address] [place] [address] Performed By: #### 5 7021-8 ####[facility] [place] LABCLIA [id number] [place] [address] [place] Immature granulocytes/100 WBC (Bld) 0.4 % Normal [facility] Comment on above: Order Comment: Speci men Type: BLOOD SPECIMENOrdering Facility: [facility] Address: [address] [place] [address] Performed By: #### 5 7021-8 ####[facility] [place] LABCLIA [id number] [place] [address] [place] Lymphocytes (Bld) [#/Vol] 1.52 10*3/uL Normal 1.00-4.00 [facility] Comment on above: Order Comment: Speci men Type: BLOOD SPECIMENOrdering Facility: [facility] Address: [address] [place] [address] Performed By: #### 5 7021-8 ####[facility] [place] LABCLIA [id number] [place] [address] [place] [facility] Lymphocytes/100 WBC (Bld) 27.9 % Normal [facility] Comment on above: Order Comment: Speci men Type: BLOOD SPECIMENOrdering Facility: [facility] Address: [address] [place] [address] Performed By: #### 5 7021-8 ####[facility] [place] LABCLIA [id number] [place] [address] [place] [facility] MCH (RBC) [Entitic mass] 29.6 pg Normal 26.0-34.0 [facility] Comment on above: Order Comment: Speci men Type: BLOOD SPECIMENOrdering Facility: [facility] Address: [address] [place] [address] Performed By: #### 5 7021-8 ####[facility] [place] LABCLIA [id number] [address] STATES [facility] MCHC (RBC) [Mass/Vol] 33.0 g/dL Normal 30.5-36.0 [facility] Comment on above: Order Comment: Speci men Type: BLOOD SPECIMENOrdering Facility: [facility] Address: [address] [place] [address] Performed By: #### 5 7021-8 ####[facility] [place] LABCLIA [id number] [place] [address] [place] MCV (RBC) [Entitic vol] 89.7 fL Normal 80.0-100.0 [facility] Comment on above: Order Comment: Speci men Type: BLOOD SPECIMENOrdering Facility: [facility] Address: [address] [place] [address] Performed By: #### 5 7021-8 ####[facility] [place] LABCLIA [id number] [address] Monocytes (Bld) [#/Vol] 0.37 10*3/uL Normal <0.87 [facility] Comment on above: Order Comment: Speci men Type: BLOOD SPECIMENOrdering Facility: [facility] Address: [address] [place] [address] Performed By: #### 5 7021-8 ####[facility] [place] LABCLIA [id number] [facility] [place] [address] [place] Monocytes/100 WBC (Bld) 6.8 % Normal [facility] Comment on above: Order Comment: Speci men Type: BLOOD SPECIMENOrdering Facility: [facility] Address: [address] [place] [address] Performed By: #### 5 7021-8 ####[facility] [place] LABCLIA [id number] [facility] [place] [address] [place] Neutrophils (Bld) [#/Vol] 3.51 10*3/uL Normal 1.45-7.50 [facility] Comment on above: Order Comment: Speci men Type: BLOOD SPECIMENOrdering Facility: [facility] Address: [address] [place] [address] Performed By: #### 5 7021-8 ####[facility] LABCLIA [id number] [place] [address] [place] Neutrophils/100 WBC (Bld) 64.3 % Normal [facility] Comment on above: Order Comment: Speci men Type: BLOOD SPECIMENOrdering Facility: [facility] Address: [address] [place] [address] Performed By: #### 5 7021-8 ####[facility] LABCLIA [id number] [facility] [place] [address] [place] Nucleated RBC (Bld) [#/Vol] Normal [facility] Comment on above: Order Comment: Speci men Type: BLOOD SPECIMENOrdering Facility: [facility] Address: [address] [place] [address] Performed By: #### 5 7021-8 ####[facility] LABCLIA [id number] [place] [address] [place] Nucleated RBC/100 WBC (Bld) [Ratio] Normal [facility] Comment on above: Order Comment: Speci men Type: BLOOD SPECIMENOrdering Facility: [facility] Address: [address] [place] [address] Performed By: #### 5 7021-8 ####[facility] LABCLIA [id number] [place] [address] [place] Platelet mean volume (Bld) [Entitic vol] 11.7 fL Normal 9.0-12.7 [facility] Comment on above: Order Comment: Speci men Type: BLOOD SPECIMENOrdering Facility: [facility] Address: [address] [place] [address] Performed By: #### 5 7021-8 ####[facility] [place] LABCLIA [id number] [place] [address] [facility] [place] Platelets (Bld) [#/Vol] 96 10*3/uL Low 150-400 [facility] Comment on above: Order Comment: Speci men Type: BLOOD SPECIMENOrdering Facility: [facility] Address: [address] [place] [address] Result Comment: No c lot detected. Performed By: #### 5 7021-8 ####[facility] LABCLIA [id number] [place] [address] [facility] Platelets Estimate (Bld) [#/Vol] Decreased Normal [facility] Comment on above: Order Comment: Speci men Type: BLOOD SPECIMENOrdering Facility: [facility] Address: [address] [place] [address] Performed By: #### 5 7021-8 ####[facility] [place] LABCLIA [id number] [place] [address] [facility] [place] Polychromasia LM Ql (Bld) Slight Normal [facility] Comment on above: Order Comment: Speci men Type: BLOOD SPECIMENOrdering Facility: [facility] Address: [address] [place] [address] Performed By: #### 5 7021-8 ####[facility] LABCLIA [id number] [facility] [place] [address] [facility] [place] RBC (Bld) [#/Vol] 2.33 10*6/uL Low 4.20-6.00 [facility] Comment on above: Order Comment: Speci men Type: BLOOD SPECIMENOrdering Facility: [facility] Address: [address] [place] [address] Performed By: #### 5 7021-8 ####[facility] LABCLIA [id number] [place] [id number] [place] RED CELL MORPH Reviewed: see result s of individual morphologies Normal [facility] Comment on above: Order Comment: Speci men Type: BLOOD SPECIMENOrdering Facility: [facility] Address: [address] [place] [address] Performed By: #### 5 7021-8 ####[facility] LABCLIA [id number] [place] WBC (Bld) [#/Vol] 5.45 10*3/uL Normal 3.70-11.00 [facility] Comment on above: Order Comment: Speci men Type: BLOOD SPECIMENOrdering Facility: [facility] Address: [address] [place] [address] Performed By: #### 5 7021-8 ####[facility] LABCLIA [id number] [place] [address] [facility] [place] CNPNon 04-14-2024 CNPN Normal [facility] CBC W Auto Differential pane l (Bld)on 04-07-2024 Basophils (Bld) [#/Vol] NINF [facility] Basophils/100 WBC (Bld) 0.3 % [facility] Differential cell count method Nom (Bld) Auto [facility] Eosinophils (Bld) [#/Vol] NINF [facility] Eosinophils/100 WBC (Bld) 0.2 % [facility] Erythrocyte distribution width (RBC) [Ratio] 17 % High 11.5 - 15.0 % [facility] Hematocrit (Bld) [Volume fraction] 23.7 % Low 39.0 - 51.0 % [facility] Hemoglobin (Bld) [Mass/Vol] 8 g/dL Low 13.0 - 17.0 g/dL [facility] Immature granulocytes (Bld) [#/Vol] 0.04 10*3/uL [facility] Immature granulocytes/100 WBC (Bld) 0.7 % [facility] Interpretation and review of laboratory results Abnormal [facility] Lymphocytes (Bld) [#/Vol] 1.9 10*3/uL [facility] Lymphocytes/100 WBC (Bld) 32.9 % [facility] MCH (RBC) [Entitic mass] 29.6 pg 26.0 - 34.0 pg [facility] MCHC (RBC) [Mass/Vol] 33.8 g/dL 30.5 - 36.0 g/dL [facility] MCV (RBC) [Entitic vol] 87.8 fL 80.0 - 100.0 fL [facility] Monocytes (Bld) [#/Vol] 0.41 10*3/uL [facility] Monocytes/100 WBC (Bld) 7.1 % [facility] Neutrophils (Bld) [#/Vol] 3.4 10*3/uL [facility] Neutrophils/100 WBC (Bld) 58.8 % [facility] Nucleated RBC (Bld) [#/Vol] 0.05 10*3/uL High [facility] Nucleated RBC/100 WBC (Bld) [Ratio] 0.9 % /100 WBC [facility] Platelet mean volume (Bld) [Entitic vol] 11.9 fL 9.0 - 12.7 fL [facility] Platelets (Bld) [#/Vol] 97 10*3/uL Low [facility] Comment on above: No clot detected. RBC (Bld) [#/Vol] 2.7 10*6/uL Low 4.20 - 6.0 0 m/uL [facility] WBC (Bld) [#/Vol] 5.78 10*3/uL [facility] Basophils (Bld) [#/Vol] 10*3/uL Normal <0.11 [facility] Comment on above: Order Comment: Speci men Type: BLOOD SPECIMENOrdering Facility: [facility] Address: [address] [place] [address] Performed By: #### 5 7021-8 ####[facility]ORATORYCLIA [id number] [address] [place] Basophils/100 WBC (Bld) 0.3 % Normal [facility] Comment on above: Order Comment: Speci men Type: BLOOD SPECIMENOrdering Facility: [facility] Address: [address] [place] [address] Performed By: #### 5 7021-8 ####[facility] LABORATORYCLIA [id number] [address] [place] Differential cell count method Nom (Bld) Auto Normal [facility] Comment on above: Order Comment: Speci men Type: BLOOD SPECIMENOrdering Facility: [facility] Address: [address] [place] [address] Performed By: #### 5 7021-8 ####[facility] LABORATORYCLIA [id number] [address] [place] Eosinophils (Bld) [#/Vol] 10*3/uL Normal <0.46 [facility] Comment on above: Order Comment: Speci men Type: BLOOD SPECIMENOrdering Facility: [facility] Address: [address] [place] [address] Performed By: #### 5 7021-8 ####[facility] LABORATORYCLIA [id number] [address] [place] Eosinophils/100 WBC (Bld) 0.2 % Normal [facility] Comment on above: Order Comment: Speci men Type: BLOOD SPECIMENOrdering Facility: [facility] Address: [address] [place] [address] Performed By: #### 5 7021-8 ####[facility]ORATORYCLIA [id number] [address] [place] Erythrocyte distribution width (RBC) [Ratio] 17.0 % High 11.5-15.0 [facility] Comment on above: Order Comment: Speci men Type: BLOOD SPECIMENOrdering Facility: [facility] Address: [address] [place] [address] Performed By: #### 5 7021-8 ####[facility]ORYCLIA [id number] [address] [place] Hematocrit (Bld) [Volume fraction] 23.7 % Low 39.0-51.0 [facility] Comment on above: Order Comment: Speci men Type: BLOOD SPECIMENOrdering Facility: [facility] Address: [address] [place] [address] Performed By: #### 5 7021-8 ####[facility] LABORATORYCLIA [id number] [address] [place] Hemoglobin (Bld) [Mass/Vol] 8.0 g/dL Low 13.0-17.0 [facility] Comment on above: Order Comment: Speci men Type: BLOOD SPECIMENOrdering Facility: [facility] Address: [address] [place] [address] Performed By: #### 5 7021-8 ####[facility] LABORATORYCLIA [id number] [address] [place] Immature granulocytes (Bld) [#/Vol] 0.04 10*3/uL Normal <0.10 [facility] Comment on above: Order Comment: Speci men Type: BLOOD SPECIMENOrdering Facility: [facility] Address: [address] [place] [address] Performed By: #### 5 7021-8 ####[facility] LABORATORYCLIA [id number] [address] [place] Immature granulocytes/100 WBC (Bld) 0.7 % Normal [facility] Comment on above: Order Comment: Speci men Type: BLOOD SPECIMENOrdering Facility: [facility] Address: [address] [place] [address] Performed By: #### 5 7021-8 ####[facility] LABORATORYCLIA [id number] [address] [place] Lymphocytes (Bld) [#/Vol] 1.90 10*3/uL Normal 1.00-4.00 [facility] Comment on above: Order Comment: Speci men Type: BLOOD SPECIMENOrdering Facility: [facility] Address: [address] [place] [address] Performed By: #### 5 7021-8 ####[facility] LABORATORYCLIA [id number] [address] STATES [facility] Lymphocytes/100 WBC (Bld) 32.9 % Normal [facility] Comment on above: Order Comment: Speci men Type: BLOOD SPECIMENOrdering Facility: [facility] Address: [address] [place] [address] Performed By: #### 5 7021-8 ####[facility] LABORATORYCLIA [id number] [address] [place] MCH (RBC) [Entitic mass] 29.6 pg Normal 26.0-34.0 [facility] Comment on above: Order Comment: Speci men Type: BLOOD SPECIMENOrdering Facility: [facility] Address: [address] [place] [address] Performed By: #### 5 7021-8 ####[facility] LABORATORYCLIA [id number] [address] [place] MCHC (RBC) [Mass/Vol] 33.8 g/dL Normal 30.5-36.0 [facility] Comment on above: Order Comment: Speci men Type: BLOOD SPECIMENOrdering Facility: [facility] Address: [address] [place] [address] Performed By: #### 5 7021-8 ####[facility] LABORATORYCLIA [id number] [address] [place] MCV (RBC) [Entitic vol] 87.8 fL Normal 80.0-100.0 [facility] Comment on above: Order Comment: Speci men Type: BLOOD SPECIMENOrdering Facility: [facility] Address: [address] [place] [address] Performed By: #### 5 7021-8 ####[facility] LABORATORYCLIA [id number] [address] [place] Monocytes (Bld) [#/Vol] 0.41 10*3/uL Normal <0.87 [facility] Comment on above: Order Comment: Speci men Type: BLOOD SPECIMENOrdering Facility: [facility] Address: [address] [place] [address] Performed By: #### 5 7021-8 ####[facility]ATORYCLIA [id number] [address] [place] Monocytes/100 WBC (Bld) 7.1 % Normal [facility] Comment on above: Order Comment: Speci men Type: BLOOD SPECIMENOrdering Facility: [facility] Address: [address] [place] [address] Performed By: #### 5 7021-8 ####[facility] LABORATORYCLIA [id number] [place] [address] [place] Neutrophils (Bld) [#/Vol] 3.40 10*3/uL Normal 1.45-7.50 [facility] Comment on above: Order Comment: Speci men Type: BLOOD SPECIMENOrdering Facility: [facility] Address: [address] [place] [address] Performed By: #### 5 7021-8 ####[facility] LABORATORYCLIA [id number] [address] [place] Neutrophils/100 WBC (Bld) 58.8 % Normal [facility] Comment on above: Order Comment: Speci men Type: BLOOD SPECIMENOrdering Facility: [facility] Address: [address] [place] [address] Performed By: #### 5 7021-8 ####[facility] LABORATORYCLIA [id number] [place] [address] [place] Nucleated RBC (Bld) [#/Vol] 0.05 10*3/uL High <0.01 [facility] Comment on above: Order Comment: Speci men Type: BLOOD SPECIMENOrdering Facility: [facility] Address: [address] [place] [address] Performed By: #### 5 7021-8 ####[facility]ORATORYCLIA [id number] [place] [address] [place] Nucleated RBC/100 WBC (Bld) [Ratio] 0.9 /100 WBC Normal [facility] Comment on above: Order Comment: Speci men Type: BLOOD SPECIMENOrdering Facility: [facility] Address: [address] [place] [address] Performed By: #### 5 7021-8 ####[facility] LABORATORYCLIA [id number] [place] [address] [place] Platelet mean volume (Bld) [Entitic vol] 11.9 fL Normal 9.0-12.7 [facility] Comment on above: Order Comment: Speci men Type: BLOOD SPECIMENOrdering Facility: [facility] Address: [address] [place] [address] Performed By: #### 5 7021-8 ####[facility] LABORATORYCLIA [id number] [address] [place] Platelets (Bld) [#/Vol] 97 10*3/uL Low 150-400 [facility] Comment on above: Order Comment: Speci men Type: BLOOD SPECIMENOrdering Facility: [facility] Address: [address] [place] [address] Result Comment: No c lot detected. Performed By: #### 5 7021-8 ####[facility] LABORATORYCLIA [id number] [address] [place] RBC (Bld) [#/Vol] 2.70 10*6/uL Low 4.20-6.00 [facility] Comment on above: Order Comment: Speci men Type: BLOOD SPECIMENOrdering Facility: [facility] Address: [address] [place] [address] Performed By: #### 5 7021-8 ####[facility] LABORATORYCLIA [id number] [address] [place] WBC (Bld) [#/Vol] 5.78 10*3/uL Normal 3.70-11.00 [facility] Comment on above: Order Comment: Speci men Type: BLOOD SPECIMENOrdering Facility: [facility] Address: [address] [place], [place] [id number] Performed By: #### 5 7021-8 ####[facility] LABORATORYCLIA [id number] [place] [address] [place] CNOVSPon 04-07-2024 CNOVSP Normal [facility] Comprehensive metabolic 2000 panelon 04-07-2024 Albumin [Mass/Vol] 4.1 g/dL 3.9 - 4.9 g/dL [facility] ALP [Catalytic activity/Vol] 100 U/L 38 - 113 U/L [facility] ALT With P-5'-P [Catalytic activity/Vol] 15 U/L 10 - 54 U/L [facility] Anion gap [Moles/Vol] 11 mmol/L 8 - 15 mmol/L [facility] AST With P-5'-P [Catalytic activity/Vol] 18 U/L 14 - 40 U/L [facility] Bilirubin [Mass/Vol] 0.2 mg/dL 0.2 - 1 .3 mg/dL [facility] Calcium [Mass/Vol] 9.5 mg/dL 8.5 - 10. 2 mg/dL [facility] Chloride [Moles/Vol] 101 mmol/L 98 - 10 7 mmol/L [facility] CO2 [Moles/Vol] 24 mmol/L 22 - 30 mmol/L [facility] Creatinine [Mass/Vol] 0.89 mg/dL 0.73 - 1.22 mg/dL [facility] GFR/1.73 sq M.predicted among non-blacks MDRD (S/P/Bld) [Vol rate/Area] 87 mL/min/{1.73_m2} - PINF [facility] Comment on above: Estimated Glomerular Filtration Rate (eGFR) is calculated using the 2020 CKD-EPI creatinine equation. This equation utilizes serum creatinine, sex, and age as parameters. The creatinine assay has traceable calibration to isotope dilution-mass spectrometry. Refer to KDIGO guidelines for clinical interpretation. In patients with unstable renal function, e.g. those with acute kidney injury, the eGFR may not accurately reflect actual GFR. Glucose [Mass/Vol] 296 mg/dL High 74 - 99 mg/dL [facility] Comment on above: The [place] [employer] (ADA) provides guidance for cutoff values for fasting glucose and random glucose. The ADA defines fasting as no caloric intake for at least 8 hours. Fasting plasma glucose results between 100 to 125 mg/dL indicate increased risk for diabetes (prediabetes). Fasting plasma glucose results greater than or equal to 126 mg/dL meet the criteria for diagnosis of diabetes. In the absence of unequivocal hyperglycemia, results should be confirmed by repeat testing. In a patient with classic symptoms of hyperglycemia or hyperglycemic crisis, random plasma glucose results greater than or equal to 200 mg/dL meet the criteria for diagnosis of diabetes. Reference: Standards of Medical Care in Diabetes 2016, [employer] [place] [employer]. Diabetes Care. 2016.39(Suppl 1). Interpretation and review of laboratory results Abnormal [facility] Potassium [Moles/Vol] 4.3 mmol/L 3.7 - 5.1 mmol/L [facility] Protein [Mass/Vol] 6.9 g/dL 6.3 - 8.0 g/dL [facility] Sodium [Moles/Vol] 136 mmol/L 136 - 144 mmol/L [facility] Urea nitrogen [Mass/Vol] 21 mg/dL 9 - 24 mg/dL [facility] Albumin [Mass/Vol] 4.1 g/dL Normal 3.9-4.9 [facility] Comment on above: Order Comment: Speci men Type: BLOOD SPECIMENOrdering Facility: [facility] Address: [address] [place] [address] Performed By: #### 2 4323-8 ####[facility] LABORATORYCLIA [id number] [address] [place] OF [facility] ALP [Catalytic activity/Vol] 100 U/L Normal 38-113 [facility] Comment on above: Order Comment: Speci men Type: BLOOD SPECIMENOrdering Facility: [facility] Address: [address] [place] [address] Performed By: #### 2 4323-8 ####[facility] LABORATORYCLIA [id number] [place] [address] [place] ALT With P-5'-P [Catalytic activity/Vol] 15 U/L Normal 10-54 [facility] Comment on above: Order Comment: Speci men Type: BLOOD SPECIMENOrdering Facility: [facility] Address: [address] [place] [address] Performed By: #### 2 4323-8 ####[facility]ORATORYCLIA [id number] [place] [address] [place] Anion gap [Moles/Vol] 11 mmol/L Normal 8-15 [facility] Comment on above: Order Comment: Speci men Type: BLOOD SPECIMENOrdering Facility: [facility] Address: [address] [place] [address] Performed By: #### 2 4323-8 ####[facility] LABORATORYCLIA [id number] [place] [address] [place] AST With P-5'-P [Catalytic activity/Vol] 18 U/L Normal 14-40 [facility] Comment on above: Order Comment: Speci men Type: BLOOD SPECIMENOrdering Facility: [facility] Address: [address] [place] [address] Performed By: #### 2 4323-8 ####[facility] LABORATORYCLIA [id number] [place] [address] [place] Bilirubin [Mass/Vol] 0.2 mg/dL Normal 0.2-1.3 [facility] Comment on above: Order Comment: Speci men Type: BLOOD SPECIMENOrdering Facility: [facility] Address: [address] [place] [address] Performed By: #### 2 4323-8 ####[facility] LABORATORYCLIA [id number] [address] [place] Calcium [Mass/Vol] 9.5 mg/dL Normal 8.5-10.2 [facility] Comment on above: Order Comment: Speci men Type: BLOOD SPECIMENOrdering Facility: [facility] Address: [address] [place] [address] Performed By: #### 2 4323-8 ####[facility]ORATORYCLIA [id number] [address] [place] Chloride [Moles/Vol] 101 mmol/L Normal 98-107 [facility] Comment on above: Order Comment: Speci men Type: BLOOD SPECIMENOrdering Facility: [facility] Address: [address] [place] [address] Performed By: #### 2 4323-8 ####[facility] LABORATORYCLIA [id number] [place] [id number] [place] CO2 [Moles/Vol] 24 mmol/L Normal 22-30 [facility] Comment on above: Order Comment: Speci men Type: BLOOD SPECIMENOrdering Facility: [facility] Address: [address] [place] [address] Performed By: #### 2 4323-8 ####[facility] LABORATORYCLIA [id number] [address] [place] Creatinine [Mass/Vol] 0.89 mg/dL Normal 0.73-1.22 [facility] Comment on above: Order Comment: Speci men Type: BLOOD SPECIMENOrdering Facility: [facility] Address: [address] [place] [address] Performed By: #### 2 4323-8 ####[facility] LABORATORYCLIA [id number] [address] Creatinine and Glomerular filtration rate.predicted panel (S/P/Bld) 87 mL/min/1.73m??? Normal >=60 [facility] Comment on above: Order Comment: Speci men Type: BLOOD SPECIMENOrdering Facility: [facility] Address: [address] [place] [address] Result Comment: Sharon mated Glomerular Filtration Rate (eGFR) is calculated using the 2020 CKD-EPI creatinine equation. This equation utilizes serum creatinine, sex, and age as parameters. The creatinine assay has traceable calibration to isotope dilution-mass spectrometry. Refer to KDIGO guidelines for clinical interpretation. In patients with unstable renal function, e.g. those with acute kidney injury, the eGFR may not accurately reflect actual GFR. Performed By: #### 2 4323-8 ####[facility] LABORATORYCLIA [id number] [address] [place] Glucose [Mass/Vol] 296 mg/dL High 74-99 [facility] Comment on above: Order Comment: Speci men Type: BLOOD SPECIMENOrdering Facility: [facility] Address: [address] [place] [id number] Result Comment: The [place] [employer] (ADA) provides guidance for cutoff values for fasting glucose and random glucose. The ADA defines fasting as no caloric intake for at least 8 hours. Fasting plasma glucose results between 100 to 125 mg/dL indicate increased risk for diabetes (prediabetes).Fasting plasma glucose results greater than or equal to 126 mg/dL meet the criteria for diagnosis of diabetes. In the absence of unequivocal hyperglycemia, results should be confirmed by repeat testing. In a patient with classic symptoms of hyperglycemia or hyperglycemic crisis, random plasma glucose results greater than or equal to 200 mg/dL meet the criteria for diagnosis of diabetes.Reference: Standards of Medical Care in Diabetes 2016, [place] [employer]. Diabetes Care. 2016.39(Suppl 1). Performed By: #### 2 4323-8 ####[facility] LABORATORYCLIA [id number] [place] [address] [place] Potassium [Moles/Vol] 4.3 mmol/L Normal 3.7-5.1 [facility] Comment on above: Order Comment: Speci men Type: BLOOD SPECIMENOrdering Facility: [facility] Address: [address] [place] [address] Performed By: #### 2 4323-8 ####[facility] LABORATORYCLIA [id number] [place] [address] [place] Protein [Mass/Vol] 6.9 g/dL Normal 6.3-8.0 [facility] Comment on above: Order Comment: Speci men Type: BLOOD SPECIMENOrdering Facility: [facility] Address: [address] [place] [id number] Performed By: #### 2 4323-8 ####[facility] LABORATORYCLIA [id number] [place] [address] [place] Sodium [Moles/Vol] 136 mmol/L Normal 136-144 [facility] Comment on above: Order Comment: Speci men Type: BLOOD SPECIMENOrdering Facility: [facility] Address: [address] [place] [id number] Performed By: #### 2 4323-8 ####[facility] LABORATORYCLIA [id number] [address] [place] Urea nitrogen [Mass/Vol] 21 mg/dL Normal 9-24 [facility] Comment on above: Order Comment: Speci men Type: BLOOD SPECIMENOrdering Facility: [facility] Address: [address] [place] [address] Performed By: #### 2 4323-8 ####[facility] LABORATORYCLIA [id number] [address] [place] CBC W Auto Differential pane l (Bld)on 03-24-2024 Basophils (Bld) [#/Vol] 10*3/uL Normal <0.11 [facility] Comment on above: Order Comment: Speci men Type: BLOOD SPECIMENOrdering Facility: [facility] Address: [address] [place] [address] Performed By: #### 5 7021-8 ####[facility] LABORATORYCLIA [id number] [address] [place] Basophils/100 WBC (Bld) 0.2 % Normal [facility] Comment on above: Order Comment: Speci men Type: BLOOD SPECIMENOrdering Facility: [facility] Address: [address] [place] [address] Performed By: #### 5 7021-8 ####[facility] LABORATORYCLIA [id number] [address] Differential cell count method Nom (Bld) Auto Normal [facility] Comment on above: Order Comment: Speci men Type: BLOOD SPECIMENOrdering Facility: [facility] Address: [address] [place] [address] Performed By: #### 5 7021-8 ####[facility] LABORATORYCLIA [id number] [place] [address] [place] Eosinophils (Bld) [#/Vol] 10*3/uL Normal <0.46 [facility] Comment on above: Order Comment: Speci men Type: BLOOD SPECIMENOrdering Facility: [facility] Address: [address] [place] [address] Performed By: #### 5 7021-8 ####[facility] LABORATORYCLIA [id number] [address] Eosinophils/100 WBC (Bld) 0.3 % Normal [facility] Comment on above: Order Comment: Speci men Type: BLOOD SPECIMENOrdering Facility: [facility] Address: [address] [place] [address] Performed By: #### 5 7021-8 ####[facility] LABORATORYCLIA [id number] [address] [place] Erythrocyte distribution width (RBC) [Ratio] 19.3 % High 11.5-15.0 [facility] Comment on above: Order Comment: Speci men Type: BLOOD SPECIMENOrdering Facility: [facility] Address: [address] [place] [address] Performed By: #### 5 7021-8 ####[facility] LABORATORYCLIA [id number] [address] Hematocrit (Bld) [Volume fraction] 19.5 % Low 39.0-51.0 [facility] Comment on above: Order Comment: Speci men Type: BLOOD SPECIMENOrdering Facility: [facility] Address: [address] [place] [address] Performed By: #### 5 7021-8 ####[facility] LABORATORYCLIA [id number] [address] [place] Hemoglobin (Bld) [Mass/Vol] 6.4 g/dL Low 13.0-17.0 [facility] Comment on above: Order Comment: Speci men Type: BLOOD SPECIMENOrdering Facility: [facility] Address: [address] [place] [address] Performed By: #### 5 7021-8 ####[facility] LABORATORYCLIA [id number] [address] [place] Immature granulocytes (Bld) [#/Vol] 0.03 10*3/uL Normal <0.10 [facility] Comment on above: Order Comment: Speci men Type: BLOOD SPECIMENOrdering Facility: [facility] Address: [address] [place] [address] Performed By: #### 5 7021-8 ####[facility] LABORATORYCLIA [id number] [address] [place] Immature granulocytes/100 WBC (Bld) 0.5 % Normal [facility] Comment on above: Order Comment: Speci men Type: BLOOD SPECIMENOrdering Facility: [facility] Address: [address] [place] [address] Performed By: #### 5 7021-8 ####[facility] LABORATORYCLIA [id number] [place] [address] [place] Lymphocytes (Bld) [#/Vol] 2.08 10*3/uL Normal 1.00-4.00 [facility] Comment on above: Order Comment: Speci men Type: BLOOD SPECIMENOrdering Facility: [facility] Address: [address] [place] [address] Performed By: #### 5 7021-8 ####[facility] LABORATORYCLIA [id number] [address] STATES [facility] Lymphocytes/100 WBC (Bld) 32.8 % Normal [facility] Comment on above: Order Comment: Speci men Type: BLOOD SPECIMENOrdering Facility: [facility] Address: [address] [place] [address] Performed By: #### 5 7021-8 ####[facility] LABORATORYCLIA [id number] [place] [address] [place] MCH (RBC) [Entitic mass] 31.7 pg Normal 26.0-34.0 [facility] Comment on above: Order Comment: Speci men Type: BLOOD SPECIMENOrdering Facility: [facility] Address: [address] [place] [address] Performed By: #### 5 7021-8 ####[facility] LABORATORYCLIA [id number] [address] [place] MCHC (RBC) [Mass/Vol] 32.8 g/dL Normal 30.5-36.0 [facility] Comment on above: Order Comment: Speci men Type: BLOOD SPECIMENOrdering Facility: [facility] Address: [address] [place] [address] Performed By: #### 5 7021-8 ####[facility] LABORATORYCLIA [id number] [address] [place] MCV (RBC) [Entitic vol] 96.5 fL Normal 80.0-100.0 [facility] Comment on above: Order Comment: Speci men Type: BLOOD SPECIMENOrdering Facility: [facility] Address: [address] [place] [address] Performed By: #### 5 7021-8 ####[facility] LABORATORYCLIA [id number] [place] [address] [place] Monocytes (Bld) [#/Vol] 0.50 10*3/uL Normal <0.87 [facility] Comment on above: Order Comment: Speci men Type: BLOOD SPECIMENOrdering Facility: [facility] Address: [address] [place] [address] Performed By: #### 5 7021-8 ####[facility] LABORATORYCLIA [id number] [address] [place] Monocytes/100 WBC (Bld) 7.9 % Normal [facility] Comment on above: Order Comment: Speci men Type: BLOOD SPECIMENOrdering Facility: [facility] Address: [address] [place] [address] Performed By: #### 5 7021-8 ####[facility]ATORYCLIA [id number] [place] [address] [place] Neutrophils (Bld) [#/Vol] 3.71 10*3/uL Normal 1.45-7.50 [facility] Comment on above: Order Comment: Speci men Type: BLOOD SPECIMENOrdering Facility: [facility] Address: [address] [place] [address] Performed By: #### 5 7021-8 ####[facility]ORATORYCLIA [id number] [address] [place] Neutrophils/100 WBC (Bld) 58.3 % Normal [facility] Comment on above: Order Comment: Speci men Type: BLOOD SPECIMENOrdering Facility: [facility] Address: [address] [place] [address] Performed By: #### 5 7021-8 ####[facility]ORATORYCLIA [id number] [place] [address] [place] Nucleated RBC (Bld) [#/Vol] 0.02 10*3/uL High <0.01 [facility] Comment on above: Order Comment: Speci men Type: BLOOD SPECIMENOrdering Facility: [facility] Address: [address] [place] [address] Performed By: #### 5 7021-8 ####[facility] LABORATORYCLIA [id number] [address] [place] Nucleated RBC/100 WBC (Bld) [Ratio] 0.3 /100 WBC Normal [facility] Comment on above: Order Comment: Speci men Type: BLOOD SPECIMENOrdering Facility: [facility] Address: [address] [place] [address] Performed By: #### 5 7021-8 ####[facility] LABORATORYCLIA [id number] [address] [place] Platelet mean volume (Bld) [Entitic vol] 10.9 fL Normal 9.0-12.7 [facility] Comment on above: Order Comment: Speci men Type: BLOOD SPECIMENOrdering Facility: [facility] Address: [address] [place] [address] Performed By: #### 5 7021-8 ####[facility] LABORATORYCLIA [id number] [address] [place] Platelets (Bld) [#/Vol] 93 10*3/uL Low 150-400 [facility] Comment on above: Order Comment: Speci men Type: BLOOD SPECIMENOrdering Facility: [facility] Address: [address] [place] [address] Result Comment: No c lot detected. Performed By: #### 5 7021-8 ####[facility] LABORATORYCLIA [id number] [address] OF [facility] RBC (Bld) [#/Vol] 2.02 10*6/uL Low 4.20-6.00 [facility] Comment on above: Order Comment: Speci men Type: BLOOD SPECIMENOrdering Facility: [facility] Address: [address] [place] [address] Performed By: #### 5 7021-8 ####[facility] LABORATORYCLIA [id number] [address] WBC (Bld) [#/Vol] 6.35 10*3/uL Normal 3.70-11.00 [facility] Comment on above: Order Comment: Speci men Type: BLOOD SPECIMENOrdering Facility: [facility] Address: [address] [place] [address] Performed By: #### 5 7021-8 ####[facility] LABORATORYCLIA [id number] [address] CNOVSPon 03-24-2024 CNOVSP Normal [facility] TYPE + SCREENon 03-24-2024 ABO B Normal [facility] Comment on above: Order Comment: Speci men Type: BLOOD SPECIMENOrdering Facility: [facility] Address: [address] [place] [address] Performed By: #### T SCR ####[facility] BLOOD BANKCLIA [id number] [address] Rh Nom (Bld) Positive Normal [facility] Comment on above: Order Comment: Speci men Type: BLOOD SPECIMENOrdering Facility: [facility] Address: [address] [place] [address] Performed By: #### T SCR ####[facility] BLOOD BANKCLIA [id number] [address] TYPE AND SCREEN EXPIRATION 03/27/2024 23:59 Normal [facility] Comment on above: Order Comment: Speci men Type: BLOOD SPECIMENOrdering Facility: [facility] Address: [address] [place] [address] Performed By: #### T SCR ####[facility] BLOOD BANKCLIA [id number] [place] [id number] [place] CNOVSPon 03-13-2024 CNOVSP Normal [facility] CBC W Auto Differential pane l (Bld)on 03-11-2024 Basophils (Bld) [#/Vol] 0.03 10*3/uL Normal <0.11 [facility] Comment on above: Order Comment: Speci men Type: BLOOD SPECIMENOrdering Facility: [facility] Address: [address] [place] [address] Performed By: #### 5 7021-8 ####[facility] LODI LABCLIA [id number] [place] [address] [place] Basophils/100 WBC (Bld) 0.5 % Normal [facility] Comment on above: Order Comment: Speci men Type: BLOOD SPECIMENOrdering Facility: [facility] Address: [address] [place] [address] Performed By: #### 5 7021-8 ####[facility] [place] LABCLIA [id number] [place] [address] [place] Differential cell count method Nom (Bld) Auto Normal [facility] Comment on above: Order Comment: Speci men Type: BLOOD SPECIMENOrdering Facility: [facility] Address: [address] [place] [address] Performed By: #### 5 7021-8 ####[facility] [place] LABCLIA [id number] [place] [address] [place] Eosinophils (Bld) [#/Vol] 10*3/uL Normal <0.46 [facility] Comment on above: Order Comment: Speci men Type: BLOOD SPECIMENOrdering Facility: [facility] Address: [address] [place] [address] Performed By: #### 5 7021-8 ####[facility] [place] LABCLIA [id number] [place] [address] [place] Eosinophils/100 WBC (Bld) 0.2 % Normal [facility] Comment on above: Order Comment: Speci men Type: BLOOD SPECIMENOrdering Facility: [facility] Address: [address] [place] [address] Performed By: #### 5 7021-8 ####[facility] [place] LABCL[facility] [id number] [place] [address] [place] Erythrocyte distribution width (RBC) [Ratio] 19.8 % High 11.5-15.0 [facility] Comment on above: Order Comment: Speci men Type: BLOOD SPECIMENOrdering Facility: [facility] Address: [address] [place] [address] Performed By: #### 5 7021-8 ####[facility] [place] LABCLIA [id number] [facility] [place] [address] [place] Hematocrit (Bld) [Volume fraction] 25.1 % Low 39.0-51.0 [facility] Comment on above: Order Comment: Speci men Type: BLOOD SPECIMENOrdering Facility: [facility] Address: [address] [place] [address] Performed By: #### 5 7021-8 ####[facility] [place] LABCLIA [id number] [facility] [place] [address] [place] Hemoglobin (Bld) [Mass/Vol] 8.1 g/dL Low 13.0-17.0 [facility] Comment on above: Order Comment: Speci men Type: BLOOD SPECIMENOrdering Facility: [facility] Address: [address] [place] [address] Performed By: #### 5 7021-8 ####[facility] [place] LABCLIA [id number] [facility] [place] [address] [place] Immature granulocytes (Bld) [#/Vol] 10*3/uL Normal <0.10 [facility] Comment on above: Order Comment: Speci men Type: BLOOD SPECIMENOrdering Facility: [facility] Address: [address] [place] [address] Performed By: #### 5 7021-8 ####[facility] [place] LABCLIA [id number] [place] [address] [place] [facility] Immature granulocytes/100 WBC (Bld) 0.2 % Normal [facility] Comment on above: Order Comment: Speci men Type: BLOOD SPECIMENOrdering Facility: [facility] Address: [address] [place] [address] Performed By: #### 5 7021-8 ####[facility] [place] LABCLIA [id number] [place] [address] [place] [facility] Lymphocytes (Bld) [#/Vol] 2.55 10*3/uL Normal 1.00-4.00 [facility] Comment on above: Order Comment: Speci men Type: BLOOD SPECIMENOrdering Facility: [facility] Address: [address] [place] [address] Performed By: #### 5 7021-8 ####[facility] [place] LABCLIA [id number] [place] [address] [facility] Lymphocytes/100 WBC (Bld) 39.4 % Normal [facility] Comment on above: Order Comment: Speci men Type: BLOOD SPECIMENOrdering Facility: [facility] Address: [address] [place] [address] Performed By: #### 5 7021-8 ####[facility] [place] LABCLIA [id number] [place] [address] [place] MCH (RBC) [Entitic mass] 31.3 pg Normal 26.0-34.0 [facility] Comment on above: Order Comment: Speci men Type: BLOOD SPECIMENOrdering Facility: [facility] Address: [address] [place] [address] Performed By: #### 5 7021-8 ####[facility] [place] LABCLIA [id number] [place] [address] [facility] MCHC (RBC) [Mass/Vol] 32.3 g/dL Normal 30.5-36.0 [facility] Comment on above: Order Comment: Speci men Type: BLOOD SPECIMENOrdering Facility: [facility] Address: [address] [place] [address] Performed By: #### 5 7021-8 ####[facility] [place] LABCLIA [id number] [place] [address] [place] MCV (RBC) [Entitic vol] 96.9 fL Normal 80.0-100.0 [facility] Comment on above: Order Comment: Speci men Type: BLOOD SPECIMENOrdering Facility: [facility] Address: [address] [place] [address] Performed By: #### 5 7021-8 ####[facility] [place] LABCLIA [id number] [place], [place] [id number] [place] [address] [place] Monocytes (Bld) [#/Vol] 0.53 10*3/uL Normal <0.87 [facility] Comment on above: Order Comment: Speci men Type: BLOOD SPECIMENOrdering Facility: [facility] Address: [address] [place] [address] Performed By: #### 5 7021-8 ####[facility] [place] LABCLIA [id number] [place] [address] [facility] [place] Monocytes/100 WBC (Bld) 8.2 % Normal [facility] Comment on above: Order Comment: Speci men Type: BLOOD SPECIMENOrdering Facility: [facility] Address: [address] [place] [address] Performed By: #### 5 7021-8 ####[facility] [place] LABCLIA [id number] [place] [address] [place] Neutrophils (Bld) [#/Vol] 3.34 10*3/uL Normal 1.45-7.50 [facility] Comment on above: Order Comment: Speci men Type: BLOOD SPECIMENOrdering Facility: [facility] Address: [address] [place] [address] Performed By: #### 5 7021-8 ####[facility] [place] LABCLIA [id number] [facility] [place] [address] [place] Neutrophils/100 WBC (Bld) 51.5 % Normal [facility] Comment on above: Order Comment: Speci men Type: BLOOD SPECIMENOrdering Facility: [facility] Address: [address] [place] [address] Performed By: #### 5 7021-8 ####[facility] [place] LABCLIA [id number] [place] [address] [place] Nucleated RBC (Bld) [#/Vol] Normal [facility] Comment on above: Order Comment: Speci men Type: BLOOD SPECIMENOrdering Facility: [facility] Address: [address] [place] [address] Performed By: #### 5 7021-8 ####[facility] [place] LABCLIA [id number] [facility] [place] [address] [place] Nucleated RBC/100 WBC (Bld) [Ratio] Normal [facility] Comment on above: Order Comment: Speci men Type: BLOOD SPECIMENOrdering Facility: [facility] Address: [address] [place] [address] Performed By: #### 5 7021-8 ####[facility] [place] LABCLIA [id number] [facility] [place] [address] [place] Platelet mean volume (Bld) [Entitic vol] 11.7 fL Normal 9.0-12.7 [facility] Comment on above: Order Comment: Speci men Type: BLOOD SPECIMENOrdering Facility: [facility] Address: [address] [place] [address] Performed By: #### 5 7021-8 ####[facility] [place] LABCLIA [id number] [facility] [place] [address] [place] Platelets (Bld) [#/Vol] 86 10*3/uL Low 150-400 [facility] Comment on above: Order Comment: Speci men Type: BLOOD SPECIMENOrdering Facility: [facility] Address: [address] [place] [address] Result Comment: No c lot detected. Performed By: #### 5 7021-8 ####[facility] LABCLIA [id number] [place] [address] [facility] RBC (Bld) [#/Vol] 2.59 10*6/uL Low 4.20-6.00 [facility] Comment on above: Order Comment: Speci men Type: BLOOD SPECIMENOrdering Facility: [facility] Address: [address] [place] [address] Performed By: #### 5 7021-8 ####[facility] LABCLIA [id number] [place] [address] [facility] WBC (Bld) [#/Vol] 6.47 10*3/uL Normal 3.70-11.00 [facility] Comment on above: Order Comment: Speci men Type: BLOOD SPECIMENOrdering Facility: [facility] Address: [address] [place] [address] Performed By: #### 5 7021-8 ####[facility] [place] LABCLIA [id number] [place] [address] [facility] Comprehensive metabolic 2000 panelon 03-11-2024 Albumin [Mass/Vol] 3.9 g/dL Normal 3.9-4.9 [facility] Comment on above: Order Comment: Speci men Type: BLOOD SPECIMENOrdering Facility: [facility] Address: [address] [place] [address] Performed By: #### 2 4323-8 ####[facility] LABCLIA [id number] [place] [address] [facility] ALP [Catalytic activity/Vol] 74 U/L Normal 38-113 [facility] Comment on above: Order Comment: Speci men Type: BLOOD SPECIMENOrdering Facility: [facility] Address: [address] [place] [address] Performed By: #### 2 4323-8 ####[facility] [place] LABCLIA [id number] [place] [address] [place] ALT With P-5'-P [Catalytic activity/Vol] 16 U/L Normal 10-54 [facility] Comment on above: Order Comment: Speci men Type: BLOOD SPECIMENOrdering Facility: [facility] Address: [address] [place] [address] Performed By: #### 2 4323-8 ####[facility] [place] LABCLIA [id number] [place] [address] [place] Anion gap [Moles/Vol] 11 mmol/L Normal 8-15 [facility] Comment on above: Order Comment: Speci men Type: BLOOD SPECIMENOrdering Facility: [facility] Address: [address] [place] [address] Performed By: #### 2 4323-8 ####[facility] [place] LABCLIA [id number] [place] [address] [place] AST With P-5'-P [Catalytic activity/Vol] 22 U/L Normal 14-40 [facility] Comment on above: Order Comment: Speci men Type: BLOOD SPECIMENOrdering Facility: [facility] Address: [address] [place] [address] Performed By: #### 2 4323-8 ####[facility] [place] LABCLIA [id number] [place] [address] [place] Bilirubin [Mass/Vol] 0.2 mg/dL Normal 0.2-1.3 [facility] Comment on above: Order Comment: Speci men Type: BLOOD SPECIMENOrdering Facility: [facility] Address: [address] [place] [address] Performed By: #### 2 4323-8 ####[facility] [place] LABCLIA [id number] [place] [address] [place] Calcium [Mass/Vol] 9.8 mg/dL Normal 8.5-10.2 [facility] Comment on above: Order Comment: Speci men Type: BLOOD SPECIMENOrdering Facility: [facility] Address: [address] [place] [address] Performed By: #### 2 4323-8 ####[facility] [place] LABCLIA [id number] [place] [address] [place] Chloride [Moles/Vol] 100 mmol/L Normal 98-107 [facility] Comment on above: Order Comment: Speci men Type: BLOOD SPECIMENOrdering Facility: [facility] Address: [address] [place] [address] Performed By: #### 2 4323-8 ####[facility] [place] LABCLIA [id number] [place] [address] [place] CO2 [Moles/Vol] 22 mmol/L Normal 22-30 [facility] Comment on above: Order Comment: Speci men Type: BLOOD SPECIMENOrdering Facility: [facility] Address: [address] [place] [address] Performed By: #### 2 4323-8 ####[facility] LABCLIA [id number] [place] [address] [place] Creatinine [Mass/Vol] 0.90 mg/dL Normal 0.73-1.22 [facility] Comment on above: Order Comment: Speci men Type: BLOOD SPECIMENOrdering Facility: [facility] Address: [address] [place] [address] Performed By: #### 2 4323-8 ####[facility] [place] LABCLIA [id number] [place] [address] [facility] Creatinine and Glomerular filtration rate.predicted panel (S/P/Bld) 86 mL/min/1.73m??? Normal >=60 [facility] Comment on above: Order Comment: Speci men Type: BLOOD SPECIMENOrdering Facility: [facility] Address: [address] [place] [address] Result Comment: Sharon mated Glomerular Filtration Rate (eGFR) is calculated using the 2020 CKD-EPI creatinine equation. This equation utilizes serum creatinine, sex, and age as parameters. The creatinine assay has traceable calibration to isotope dilution-mass spectrometry. Refer to KDIGO guidelines for clinical interpretation. In patients with unstable renal function, e.g. those with acute kidney injury, the eGFR may not accurately reflect actual GFR. Performed By: #### 2 4323-8 ####[facility] LABCLIA [id number] [place] [address] [place] Glucose [Mass/Vol] 219 mg/dL High 74-99 [facility] Comment on above: Order Comment: Mathew portillo Type: BLOOD SPECIMENOrdering Facility: [facility] Address: [address] [place], [place] [address] Result Comment: The [place] [employer] (ADA) provides guidance for cutoff values for fasting glucose and random glucose. The ADA defines fasting as no caloric intake for at least 8 hours. Fasting plasma glucose results between 100 to 125 mg/dL indicate increased risk for diabetes (prediabetes).Fasting plasma glucose results greater than or equal to 126 mg/dL meet the criteria for diagnosis of diabetes. In the absence of unequivocal hyperglycemia, results should be confirmed by repeat testing. In a patient with classic symptoms of hyperglycemia or hyperglycemic crisis, random plasma glucose results greater than or equal to 200 mg/dL meet the criteria for diagnosis of diabetes.Reference: Standards of Medical Care in Diabetes 2016, [employer] [place] [employer]. Diabetes Care. 2016.39(Suppl 1). Performed By: #### 2 4323-8 ####[facility] LABCLIA [id number] [place] [address] [place] Potassium [Moles/Vol] 4.5 mmol/L Normal 3.7-5.1 [facility] Comment on above: Order Comment: Mathew portillo Type: BLOOD SPECIMENOrdering Facility: [facility] Address: [address] [place] [address] Performed By: #### 2 4323-8 ####[facility] LABCLIA [id number] [place] [address] [place] Protein [Mass/Vol] 7.1 g/dL Normal 6.3-8.0 [facility] Comment on above: Order Comment: Mathew portillo Type: BLOOD SPECIMENOrdering Facility: [facility] Address: [address] [place] [address] Performed By: #### 2 4323-8 ####[facility] [place] LABCLIA [id number] [place] [id number] [place] Sodium [Moles/Vol] 133 mmol/L Low 136-144 [facility] Comment on above: Order Comment: Speci men Type: BLOOD SPECIMENOrdering Facility: [facility] Address: [address] [place] [address] Performed By: #### 2 4323-8 ####[facility] [place] LABCLIA [id number] [address] STATES [facility] Urea nitrogen [Mass/Vol] 19 mg/dL Normal 9-24 [facility] Comment on above: Order Comment: Speci men Type: BLOOD SPECIMENOrdering Facility: [facility] Address: [address] [place] [address] Performed By: #### 2 4323-8 ####[facility] [place] LABCLIA [id number] [address] OF [facility] TYPE + SCREENon 03-11-2024 ABO B Normal [facility] Comment on above: Order Comment: Speci men Type: BLOOD SPECIMENOrdering Facility: [facility] Address: [address] [place] [address] Performed By: #### T SCR ####[facility] BLOOD BANKCLIA [id number] [address] [place] Rh Nom (Bld) Positive Normal [facility] Comment on above: Order Comment: Speci men Type: BLOOD SPECIMENOrdering Facility: [facility] Address: [address] [place] [address] Performed By: #### T SCR ####[facility] BLOOD BANKCLIA [id number] [address] [place] TYPE AND SCREEN EXPIRATION 03/14/2024 23:59 Normal [facility] Comment on above: Order Comment: Speci men Type: BLOOD SPECIMENOrdering Facility: [facility] Address: [address] [place] [address] Performed By: #### T SCR ####[facility] BLOOD BANKCLIA [id number] [place] [id number] [place] CNPNon 03-09-2024 CNPN Normal [facility] Basic metabolic 2000 panelon 03-06-2024 Anion gap [Moles/Vol] 12 mmol/L Normal 8-15 [facility] Comment on above: Order Comment: Speci men Type: BLOOD SPECIMENOrdering Facility: [facility] Address: [address] [place] [address] Performed By: #### 1 9123-9, 89260-9 ####[facility] [place] LABCLIA [id number] [place] [address] [place] Calcium [Mass/Vol] 9.0 mg/dL Normal 8.5-10.2 [facility] Comment on above: Order Comment: Speci men Type: BLOOD SPECIMENOrdering Facility: [facility] Address: [address] [place] [address] Performed By: #### 1 9123-9, 51000-1 ####[facility] [place] LABCLIA [id number] [place] [address] [place] Chloride [Moles/Vol] 105 mmol/L Normal 98-107 [facility] Comment on above: Order Comment: Speci men Type: BLOOD SPECIMENOrdering Facility: [facility] Address: [address] [place] [address] Performed By: #### 1 9123-9, 12798-0 ####[facility] [place] LABCLIA [id number] [place] [address] [place] CO2 [Moles/Vol] 21 mmol/L Low 22-30 [facility] Comment on above: Order Comment: Speci men Type: BLOOD SPECIMENOrdering Facility: [facility] Address: [address] [place] [address] Performed By: #### 1 9123-9, 82413-1 ####[facility] [place] LABCLIA [id number] [place] [address] [place] Creatinine [Mass/Vol] 0.84 mg/dL Normal 0.73-1.22 [facility] Comment on above: Order Comment: Mathew portillo Type: BLOOD SPECIMENOrdering Facility: [facility] Address: [address] [place] [address] Performed By: #### 1 9123-9, 26519-2 ####[facility] LABIA [id number] [place] [address] [facility] Creatinine and Glomerular filtration rate.predicted panel (S/P/Bld) 88 mL/min/1.73m??? Normal >=60 [facility] Comment on above: Order Comment: Mathew portillo Type: BLOOD SPECIMENOrdering Facility: [facility] Address: [address] [place] [address] Result Comment: Sharon mated Glomerular Filtration Rate (eGFR) is calculated using the 2020 CKD-EPI creatinine equation. This equation utilizes serum creatinine, sex, and age as parameters. The creatinine assay has traceable calibration to isotope dilution-mass spectrometry. Refer to KDIGO guidelines for clinical interpretation. In patients with unstable renal function, e.g. those with acute kidney injury, the eGFR may not accurately reflect actual GFR. Performed By: #### 1 9123-9, 08206-9 ####[facility] LABIA [id number] [place] [address] [place] [facility] Glucose [Mass/Vol] 216 mg/dL High 74-99 [facility] Comment on above: Order Comment: Mathew portillo Type: BLOOD SPECIMENOrdering Facility: [facility] Address: [address] [place] [address] Result Comment: The [place] [employer] (ADA) provides guidance for cutoff values for fasting glucose and random glucose. The ADA defines fasting as no caloric intake for at least 8 hours. Fasting plasma glucose results between 100 to 125 mg/dL indicate increased risk for diabetes (prediabetes).Fasting plasma glucose results greater than or equal to 126 mg/dL meet the criteria for diagnosis of diabetes. In the absence of unequivocal hyperglycemia, results should be confirmed by repeat testing. In a patient with classic symptoms of hyperglycemia or hyperglycemic crisis, random plasma glucose results greater than or equal to 200 mg/dL meet the criteria for diagnosis of diabetes.Reference: Standards of Medical Care in Diabetes 2016, [place] [employer]. Diabetes Care. 2016.39(Suppl 1). Performed By: #### 1 9123-9, 07243-3 ####[employer] [facility] LABCLIA [id number] [place] [address] [place] Potassium [Moles/Vol] 4.2 mmol/L Normal 3.7-5.1 [facility] Comment on above: Order Comment: Speci men Type: BLOOD SPECIMENOrdering Facility: [facility] Address: [address] [place] [address] Performed By: #### 1 91239, 43135-1 ####[facility] LABCLIA [id number] [place] [address] [place] [facility] Sodium [Moles/Vol] 138 mmol/L Normal 136-144 [facility] Comment on above: Order Comment: Mayuri lindsey Type: BLOOD SPECIMENOrdering Facility: [facility] Address: [address] [place] [address] Performed By: #### 1 91239, 83141-8 ####[facility] LABCLIA [id number] [place] [address] [place] Urea nitrogen [Mass/Vol] 19 mg/dL Normal 9-24 [facility] Comment on above: Order Comment: Speci men Type: BLOOD SPECIMENOrdering Facility: [facility] Address: [address] [place] [address] Performed By: #### 1 9123-9, 74992-6 ####[facility] LABCLIA [id number] [place] [address] [place] CBC panel Auto (Bld)on 03-06 Erythrocyte distribution width (RBC) [Ratio] 21.3 % High 11.5-15.0 [facility] Comment on above: Order Comment: Speci men Type: BLOOD SPECIMENOrdering Facility: [facility] Address: [address] [place] [address] Performed By: #### 5 8410-2 ####[facility] [place] LABCLIA [id number] [place] [address] [place] [facility] Hematocrit (Bld) [Volume fraction] 25.5 % Low 39.0-51.0 [facility] Comment on above: Order Comment: Speci men Type: BLOOD SPECIMENOrdering Facility: [facility] Address: [address] [place] [address] Performed By: #### 5 8410-2 ####[facility] LABCLIA [id number] [place] [address] [facility] Hemoglobin (Bld) [Mass/Vol] 8.5 g/dL Low 13.0-17.0 [facility] Comment on above: Order Comment: Speci men Type: BLOOD SPECIMENOrdering Facility: [facility] Address: [address] [place] [address] Performed By: #### 5 8410-2 ####[facility] LABCLIA [id number] [place] [address] [place] MCH (RBC) [Entitic mass] 31.5 pg Normal 26.0-34.0 [facility] Comment on above: Order Comment: Speci men Type: BLOOD SPECIMENOrdering Facility: [facility] Address: [address] [place] [address] Performed By: #### 5 8410-2 ####[facility] [place] LABCLIA [id number] [place] [address] [place] MCHC (RBC) [Mass/Vol] 33.3 g/dL Normal 30.5-36.0 [facility] Comment on above: Order Comment: Speci men Type: BLOOD SPECIMENOrdering Facility: [facility] Address: [address] [place] [address] Performed By: #### 5 8410-2 ####[facility] [place] LABCLIA [id number] [place] [address] [facility] [place] MCV (RBC) [Entitic vol] 94.4 fL Normal 80.0-100.0 [facility] Comment on above: Order Comment: Speci men Type: BLOOD SPECIMENOrdering Facility: [facility] Address: [address] [place] [address] Performed By: #### 5 8410-2 ####[facility] [place] LABCLIA [id number] [place] [address] [place] Platelet mean volume (Bld) [Entitic vol] 10.3 fL Normal 9.0-12.7 [facility] Comment on above: Order Comment: Speci men Type: BLOOD SPECIMENOrdering Facility: [facility] Address: [address] [place] [address] Performed By: #### 5 8410-2 ####[facility] LABCLIA [id number] [place], [place] [id number] [place] [address] Platelets (Bld) [#/Vol] 66 10*3/uL Low 150-400 [facility] Comment on above: Order Comment: Speci men Type: BLOOD SPECIMENOrdering Facility: [facility] Address: [address] [place] [address] Performed By: #### 5 8410-2 ####[facility] LABCLIA [id number] [place] [address] [place] RBC (Bld) [#/Vol] 2.70 10*6/uL Low 4.20-6.00 [facility] Comment on above: Order Comment: Speci men Type: BLOOD SPECIMENOrdering Facility: [facility] Address: [address] [place] [address] Performed By: #### 5 8410-2 ####[facility] [place] LABCLIA [id number] [place] [address] [facility] WBC (Bld) [#/Vol] 5.48 10*3/uL Normal 3.70-11.00 [facility] Comment on above: Order Comment: Speci men Type: BLOOD SPECIMENOrdering Facility: [facility] Address: [address] [place] [address] Performed By: #### 5 8410-2 ####[facility]I LABCLIA [id number] [place] [address] [place] [facility] Erythrocyte distribution width (RBC) [Ratio] 19.6 % High 11.5-15.0 [facility] Comment on above: Order Comment: Speci men Type: BLOOD SPECIMENOrdering Facility: [facility] Address: [address] [place] [address] Performed By: #### 5 8410-2 ####[facility] LABCLIA [id number] [place] [id number] [place] Hematocrit (Bld) [Volume fraction] 17.5 % Low 39.0-51.0 [facility] Comment on above: Order Comment: Speci men Type: BLOOD SPECIMENOrdering Facility: [facility] Address: [address] [place] [address] Performed By: #### 5 8410-2 ####[facility] LABCLIA [id number] [place] [id number] [place] Hemoglobin (Bld) [Mass/Vol] 5.8 g/dL Critically low 13.0-17.0 [facility] Comment on above: Order Comment: Speci men Type: BLOOD SPECIMENOrdering Facility: [facility] Address: [address] [place] [address] Result Comment: No c lot detected. Performed By: #### 5 8410-2 ####[facility] LABCLIA [id number] [place] [address] [place] MCH (RBC) [Entitic mass] 34.3 pg High 26.0-34.0 [facility] Comment on above: Order Comment: Speci men Type: BLOOD SPECIMENOrdering Facility: [facility] Address: [address] [place] [address] Performed By: #### 5 8410-2 ####[facility] LABCLIA [id number] [place] [address] [place] [facility] MCHC (RBC) [Mass/Vol] 33.1 g/dL Normal 30.5-36.0 [facility] Comment on above: Order Comment: Speci men Type: BLOOD SPECIMENOrdering Facility: [facility] Address: [address] [place] [address] Performed By: #### 5 8410-2 ####[facility] [place] LABCLIA [id number] [place] [address] [place] MCV (RBC) [Entitic vol] 103.6 fL High 80.0-100.0 [facility] Comment on above: Order Comment: Speci men Type: BLOOD SPECIMENOrdering Facility: [facility] Address: [address] [place] [address] Performed By: #### 5 8410-2 ####[facility] LABCLIA [id number] [place] [address] [place] Platelet mean volume (Bld) [Entitic vol] 11.8 fL Normal 9.0-12.7 [facility] Comment on above: Order Comment: Speci men Type: BLOOD SPECIMENOrdering Facility: [facility] Address: [address] [place] [address] Performed By: #### 5 8410-2 ####[facility] LABCLIA [id number] [place] [address] [place] Platelets (Bld) [#/Vol] 68 10*3/uL Low 150-400 [facility] Comment on above: Order Comment: Speci men Type: BLOOD SPECIMENOrdering Facility: [facility] Address: [address] [place] [address] Performed By: #### 5 8410-2 ####[facility] [place] LABCLIA [id number] [place] [address] [place] RBC (Bld) [#/Vol] 1.69 10*6/uL Low 4.20-6.00 [facility] Comment on above: Order Comment: Speci men Type: BLOOD SPECIMENOrdering Facility: [facility] Address: [address] [place] [address] Performed By: #### 5 8410-2 ####[facility] LABCLIA [id number] [place] [address] [facility] WBC (Bld) [#/Vol] 4.20 10*3/uL Normal 3.70-11.00 [facility] Comment on above: Order Comment: Speci men Type: BLOOD SPECIMENOrdering Facility: [facility] Address: [address] [place] [address] Performed By: #### 5 8410-2 ####[facility] LABCLIA [id number] [place] [address] [facility] CNDSon 03-06-2024 CNDS Normal [facility] Magnesium SerPl-mCncon 03-06 Magnesium [Mass/Vol] 1.7 mg/dL Normal 1.7-2.3 [facility] Comment on above: Order Comment: Speci men Type: BLOOD SPECIMENOrdering Facility: [facility] Address: [address] [place] [address] Performed By: #### 1 9123-9, 26505-3 ####[facility] LABCLIA [id number] [place] [id number] [facility] CBC panel Auto (Bld)on 03-05 Erythrocyte distribution width (RBC) [Ratio] 19.8 % High 11.5-15.0 [facility] Comment on above: Order Comment: Speci men Type: BLOOD SPECIMENOrdering Facility: [facility] Address: [address] [place] [address] Performed By: #### 5 8410-2 ####[facility] LABCLIA [id number] [place] [address] [facility] Hematocrit (Bld) [Volume fraction] 17.7 % Low 39.0-51.0 [facility] Comment on above: Order Comment: Speci men Type: BLOOD SPECIMENOrdering Facility: [facility] Address: [address] [place] [address] Performed By: #### 5 8410-2 ####[facility] LABCLIA [id number] [place] [address] [place] [facility] Hemoglobin (Bld) [Mass/Vol] 5.7 g/dL Critically low 13.0-17.0 [facility] Comment on above: Order Comment: Speci men Type: BLOOD SPECIMENOrdering Facility: [facility] Address: [address] [place] [address] Performed By: #### 5 8410-2 ####[facility] LABCLIA [id number] [place] [phone] [place] [facility] MCH (RBC) [Entitic mass] 33.1 pg Normal 26.0-34.0 [facility] Comment on above: Order Comment: Speci men Type: BLOOD SPECIMENOrdering Facility: [facility] Address: [address] [place] [address] Performed By: #### 5 8410-2 ####[facility] LABCLIA [id number] [place] [address] [place] MCHC (RBC) [Mass/Vol] 32.2 g/dL Normal 30.5-36.0 [facility] Comment on above: Order Comment: Speci men Type: BLOOD SPECIMENOrdering Facility: [facility] Address: [address] [place] [address] Performed By: #### 5 8410-2 ####[facility] LABCLIA [id number] [place] [address] [place] MCV (RBC) [Entitic vol] 102.9 fL High 80.0-100.0 [facility] Comment on above: Order Comment: Speci men Type: BLOOD SPECIMENOrdering Facility: [facility] Address: [address] [place] [address] Performed By: #### 5 8410-2 ####[facility] LABCLIA [id number] [place] [address] [place] Platelet mean volume (Bld) [Entitic vol] 11.5 fL Normal 9.0-12.7 [facility] Comment on above: Order Comment: Speci men Type: BLOOD SPECIMENOrdering Facility: [facility] Address: [address] [place] [address] Performed By: #### 5 8410-2 ####[facility]I LABCLIA [id number] [place] [address] [place] Platelets (Bld) [#/Vol] 69 10*3/uL Low 150-400 [facility] Comment on above: Order Comment: Speci men Type: BLOOD SPECIMENOrdering Facility: [facility] Address: [address] [place] [address] Result Comment: No c lot detected. Performed By: #### 5 8410-2 ####[facility] LABCLIA [id number] [place] [address] [place] RBC (Bld) [#/Vol] 1.72 10*6/uL Low 4.20-6.00 [facility] Comment on above: Order Comment: Speci men Type: BLOOD SPECIMENOrdering Facility: [facility] Address: [address] [place] [address] Performed By: #### 5 8410-2 ####[facility] LABCLIA [id number] [place] [address] [place] WBC (Bld) [#/Vol] 4.11 10*3/uL Normal 3.70-11.00 [facility] Comment on above: Order Comment: Speci men Type: BLOOD SPECIMENOrdering Facility: [facility] Address: [address] [place] [address] Performed By: #### 5 8410-2 ####[facility] LABCLIA [id number] [place] [address] [facility] Comprehensive metabolic 2000 panelon 03-05-2024 Albumin [Mass/Vol] 3.7 g/dL Low 3.9-4.9 [facility] Comment on above: Order Comment: Speci men Type: BLOOD SPECIMENOrdering Facility: [facility] Address: [facility] [place] [place] [address] Performed By: #### 2 4323-8 ####[facility] [place] LABCLIA [id number] [place] [address] [place] ALP [Catalytic activity/Vol] 70 U/L Normal 38-113 [facility] Comment on above: Order Comment: Speci men Type: BLOOD SPECIMENOrdering Facility: [facility] Address: [address] [place] [address] Performed By: #### 2 4323-8 ####[facility] [place] LABCLIA [id number] [place] [address] [place] ALT With P-5'-P [Catalytic activity/Vol] 14 U/L Normal 10-54 [facility] Comment on above: Order Comment: Speci men Type: BLOOD SPECIMENOrdering Facility: [facility] Address: [address] [place] [address] Performed By: #### 2 4323-8 ####[facility] [place] LABCLIA [id number] [place] [address] [place] Anion gap [Moles/Vol] 15 mmol/L Normal 8-15 [facility] Comment on above: Order Comment: Speci men Type: BLOOD SPECIMENOrdering Facility: [facility] Address: [address] [place] [address] Performed By: #### 2 4323-8 ####[facility] [place] LABCLIA [id number] [place] [address] [place] AST With P-5'-P [Catalytic activity/Vol] 17 U/L Normal 14-40 [facility] Comment on above: Order Comment: Speci men Type: BLOOD SPECIMENOrdering Facility: [facility] Address: [address] [place] [address] Performed By: #### 2 4323-8 ####[facility] [place] LABCLIA [id number] [place] [address] [place] Bilirubin [Mass/Vol] 0.2 mg/dL Normal 0.2-1.3 [facility] Comment on above: Order Comment: Speci men Type: BLOOD SPECIMENOrdering Facility: [facility] Address: [address] [place] [address] Performed By: #### 2 4323-8 ####[facility] [place] LABCLIA [id number] [place] [address] [place] Calcium [Mass/Vol] 9.2 mg/dL Normal 8.5-10.2 [facility] Comment on above: Order Comment: Speci men Type: BLOOD SPECIMENOrdering Facility: [facility] Address: [address] [place] [address] Performed By: #### 2 4323-8 ####[facility] [place] LABCLIA [id number] [place] [address] [place] Chloride [Moles/Vol] 100 mmol/L Normal 98-107 [facility] Comment on above: Order Comment: Speci men Type: BLOOD SPECIMENOrdering Facility: [facility] Address: [address] [place] [address] Performed By: #### 2 4323-8 ####[facility] [place] LABCLIA [id number] [place] [address] [place] CO2 [Moles/Vol] 20 mmol/L Low 22-30 [facility] Comment on above: Order Comment: Speci men Type: BLOOD SPECIMENOrdering Facility: [facility] Address: [address] [place] [address] Performed By: #### 2 4323-8 ####[facility] [place] LABCLIA [id number] [place] [address] [place] Creatinine [Mass/Vol] 0.87 mg/dL Normal 0.73-1.22 [facility] Comment on above: Order Comment: Speci men Type: BLOOD SPECIMENOrdering Facility: [facility] Address: [address] [place] [address] Performed By: #### 2 4323-8 ####[facility] [employer] LABCLIA [id number] [place] [address] [place] Creatinine and Glomerular filtration rate.predicted panel (S/P/Bld) 87 mL/min/1.73m??? Normal >=60 [facility] Comment on above: Order Comment: Mathew lindsey Type: BLOOD SPECIMENOrdering Facility: [facility] Address: [address] [place] [address] Result Comment: Sharon mated Glomerular Filtration Rate (eGFR) is calculated using the 2020 CKD-EPI creatinine equation. This equation utilizes serum creatinine, sex, and age as parameters. The creatinine assay has traceable calibration to isotope dilution-mass spectrometry. Refer to KDIGO guidelines for clinical interpretation. In patients with unstable renal function, e.g. those with acute kidney injury, the eGFR may not accurately reflect actual GFR. Performed By: #### 2 4323-8 ####[facility] Olson NetworksIA [id number] [place] [id number] [place] Glucose [Mass/Vol] 255 mg/dL High 74-99 [facility] Comment on above: Order Comment: Specmagdalena portillo Type: BLOOD SPECIMENOrdering Facility: [facility] Address: [address] [place] [address] Result Comment: The [place] [employer] (ADA) provides guidance for cutoff values for fasting glucose and random glucose. The ADA defines fasting as no caloric intake for at least 8 hours. Fasting plasma glucose results between 100 to 125 mg/dL indicate increased risk for diabetes (prediabetes).Fasting plasma glucose results greater than or equal to 126 mg/dL meet the criteria for diagnosis of diabetes. In the absence of unequivocal hyperglycemia, results should be confirmed by repeat testing. In a patient with classic symptoms of hyperglycemia or hyperglycemic crisis, random plasma glucose results greater than or equal to 200 mg/dL meet the criteria for diagnosis of diabetes.Reference: Standards of Medical Care in Diabetes 2016, [place] [employer]. Diabetes Care. 2016.39(Suppl 1). Performed By: #### 2 4323-8 ####[facility] [employer] LABCLIA [id number] [place] [address] [place] Potassium [Moles/Vol] 4.2 mmol/L Normal 3.7-5.1 [facility] Comment on above: Order Comment: Speci men Type: BLOOD SPECIMENOrdering Facility: [facility] Address: [address] [place] [address] Performed By: #### 2 4323-8 ####[facility] [place] LABCLIA [id number] [facility] [place] [address] [place] [facility] Protein [Mass/Vol] 6.6 g/dL Normal 6.3-8.0 [facility] Comment on above: Order Comment: Speci men Type: BLOOD SPECIMENOrdering Facility: [facility] Address: [address] [place] [address] Performed By: #### 2 4323-8 ####[facility] [place] LABCLIA [id number] [facility] [place] [address] [facility] Sodium [Moles/Vol] 135 mmol/L Low 136-144 [facility] Comment on above: Order Comment: Speci men Type: BLOOD SPECIMENOrdering Facility: [facility] Address: [address] [place] [address] Performed By: #### 2 4323-8 ####[facility] [place] LABCLIA [id number] [place] [address] [place] [facility] Urea nitrogen [Mass/Vol] 22 mg/dL Normal 9-24 [facility] Comment on above: Order Comment: Speci men Type: BLOOD SPECIMENOrdering Facility: [facility] Address: [address] [place] [address] Performed By: #### 2 4323-8 ####[facility] [place] LABCLIA [id number] [facility] [place] [address] [facility] ED NOTEon 03-05-2024 ED NOTE HNO ID: [id number] Author: COLLEEN HUIZAR RN Service: Emergency Medicine Author Type: Registered Nurse Type: ED Notes Filed: 03/05/2024 17:35 Note Text: Report given to Mireya LEOS Normal [facility] ED NOTE HNO ID: [id number] Author: KEVIN JOYA, DERIC Service: ? Author Type: Registered Nurse Type: ED Notes Filed: 03/05/2024 17:24 Note Text: Diabetic meal tray ordered Normal [facility] ED NOTE Normal [facility] ED PROV NOTEon 03-05-2024 ED PROV NOTE Normal [facility] HISTORY PHYSICALon HISTORY PHYSICAL Normal [facility] TYPE + SCREENon 03-05-2024 ABO B Normal [facility] Comment on above: Order Comment: Speci men Type: BLOOD SPECIMENOrdering Facility: [facility] Address: [address] [place] [address] Performed By: #### T SCR ####[facility] BLOOD BANKCLIA [id number] [address] Rh Nom (Bld) Positive Normal [facility] Comment on above: Order Comment: Speci men Type: BLOOD SPECIMENOrdering Facility: [facility] Address: [address] [place] [address] Performed By: #### T SCR ####[facility] BLOOD BANKCLIA [id number] [address] TYPE AND SCREEN EXPIRATION 03/08/2024 23:59 Normal [facility] Comment on above: Order Comment: Speci men Type: BLOOD SPECIMENOrdering Facility: [facility] Address: [address] [place] [address] Performed By: #### T SCR ####[facility] BLOOD BANKCLIA [id number] [address] CBC W Auto Differential pane l (Bld)on 02-11-2024 Basophils (Bld) [#/Vol] 10*3/uL Normal <0.11 [facility] Comment on above: Order Comment: Speci men Type: BLOOD SPECIMENOrdering Facility: [facility] Address: [address] [place] [address] Performed By: #### 5 7021-8 ####[facility] [place] LABCLIA [id number] [place] [address] Basophils/100 WBC (Bld) 0.4 % Normal [facility] Comment on above: Order Comment: Speci men Type: BLOOD SPECIMENOrdering Facility: [facility] Address: [address] [place] [address] Performed By: #### 5 7021-8 ####[facility] [place] LABCLIA [id number] [place] [address] [facility] Differential cell count method Nom (Bld) Auto Normal [facility] Comment on above: Order Comment: Speci men Type: BLOOD SPECIMENOrdering Facility: [facility] Address: [address] [place] [address] Performed By: #### 5 7021-8 ####[facility] [place] LABCLIA [id number] [place] [address] [place] Eosinophils (Bld) [#/Vol] 10*3/uL Normal <0.46 [facility] Comment on above: Order Comment: Speci men Type: BLOOD SPECIMENOrdering Facility: [facility] Address: [address] [place] [address] Performed By: #### 5 7021-8 ####[facility] [place] LABCLIA [id number] [place] [id number] [facility] Eosinophils/100 WBC (Bld) 0.2 % Normal [facility] Comment on above: Order Comment: Speci men Type: BLOOD SPECIMENOrdering Facility: [facility] Address: [address] [place] [address] Performed By: #### 5 7021-8 ####[facility] [place] LABCLIA [id number] [place] [address] [facility] Erythrocyte distribution width (RBC) [Ratio] 21.2 % High 11.5-15.0 [facility] Comment on above: Order Comment: Speci men Type: BLOOD SPECIMENOrdering Facility: [facility] Address: [address] [place] [address] Performed By: #### 5 7021-8 ####[facility] [place] LABCLIA [id number] [facility] [place] [address] [place] Hematocrit (Bld) [Volume fraction] 21.1 % Low 39.0-51.0 [facility] Comment on above: Order Comment: Speci men Type: BLOOD SPECIMENOrdering Facility: [facility] Address: [address] [place] [address] Performed By: #### 5 7021-8 ####[facility] [place] LABCLIA [id number] [facility] [place] [address] [place] Hemoglobin (Bld) [Mass/Vol] 7.2 g/dL Low 13.0-17.0 [facility] Comment on above: Order Comment: Speci men Type: BLOOD SPECIMENOrdering Facility: [facility] Address: [address] [place] [address] Performed By: #### 5 7021-8 ####[facility] LABCLIA [id number] [place] [address] [place] Immature granulocytes (Bld) [#/Vol] 10*3/uL Normal <0.10 [facility] Comment on above: Order Comment: Speci men Type: BLOOD SPECIMENOrdering Facility: [facility] Address: [address] [place] [address] Performed By: #### 5 7021-8 ####[facility] LABCLIA [id number] [place] [address] [facility] [place] Immature granulocytes/100 WBC (Bld) 0.0 % Normal [facility] Comment on above: Order Comment: Speci men Type: BLOOD SPECIMENOrdering Facility: [facility] Address: [address] [place] [address] Performed By: #### 5 7021-8 ####[facility] [place] LABCLIA [id number] [place] [address] [facility] [place] Lymphocytes (Bld) [#/Vol] 1.79 10*3/uL Normal 1.00-4.00 [facility] Comment on above: Order Comment: Speci men Type: BLOOD SPECIMENOrdering Facility: [facility] Address: [address] [place] [address] Performed By: #### 5 7021-8 ####[facility] LABCLIA [id number] [place] [address] [facility] Lymphocytes/100 WBC (Bld) 33.1 % Normal [facility] Comment on above: Order Comment: Speci men Type: BLOOD SPECIMENOrdering Facility: [facility] Address: [address] [place] [address] Performed By: #### 5 7021-8 ####[facility] LABCLIA [id number] [place] [id number] [place] [facility] MCH (RBC) [Entitic mass] 36.7 pg High 26.0-34.0 [facility] Comment on above: Order Comment: Speci men Type: BLOOD SPECIMENOrdering Facility: [facility] Address: [address] [place] [address] Performed By: #### 5 7021-8 ####[facility] LABCLIA [id number] [place] [address] [place] [facility] MCHC (RBC) [Mass/Vol] 34.1 g/dL Normal 30.5-36.0 [facility] Comment on above: Order Comment: Speci men Type: BLOOD SPECIMENOrdering Facility: [facility] Address: [address] [place] [address] Performed By: #### 5 7021-8 ####[facility] LABCLIA [id number] [place] [address] [place] MCV (RBC) [Entitic vol] 107.7 fL High 80.0-100.0 [facility] Comment on above: Order Comment: Speci men Type: BLOOD SPECIMENOrdering Facility: [facility] Address: [address] [place] [address] Performed By: #### 5 7021-8 ####[facility] LABCLIA [id number] [place] [address] [place] Monocytes (Bld) [#/Vol] 0.34 10*3/uL Normal <0.87 [facility] Comment on above: Order Comment: Speci men Type: BLOOD SPECIMENOrdering Facility: [facility] Address: [address] [place] [address] Performed By: #### 5 7021-8 ####[facility] LABCLIA [id number] [place] [address] [place] Monocytes/100 WBC (Bld) 6.3 % Normal [facility] Comment on above: Order Comment: Speci men Type: BLOOD SPECIMENOrdering Facility: [facility] Address: [address] [place] [address] Performed By: #### 5 7021-8 ####[facility] LABCLIA [id number] [place] [address] [place] Neutrophils (Bld) [#/Vol] 3.24 10*3/uL Normal 1.45-7.50 [facility] Comment on above: Order Comment: Speci men Type: BLOOD SPECIMENOrdering Facility: [facility] Address: [address] [place] [address] Performed By: #### 5 7021-8 ####[facility] LABCLIA [id number] [place] [address] [place] Neutrophils/100 WBC (Bld) 60.0 % Normal [facility] Comment on above: Order Comment: Speci men Type: BLOOD SPECIMENOrdering Facility: [facility] Address: [address] [place] [address] Performed By: #### 5 7021-8 ####[facility] LABCLIA [id number] [place] [address] [place] Nucleated RBC (Bld) [#/Vol] Normal [facility] Comment on above: Order Comment: Speci men Type: BLOOD SPECIMENOrdering Facility: [facility] Address: [address] [place] [address] Performed By: #### 5 7021-8 ####[facility] LABCLIA [id number] [place] [address] [place] Nucleated RBC/100 WBC (Bld) [Ratio] Normal [facility] Comment on above: Order Comment: Speci men Type: BLOOD SPECIMENOrdering Facility: [facility] Address: [address] [place] [address] Performed By: #### 5 7021-8 ####[facility]I LABCLIA [id number] [facility] [place] [address] [facility] Platelet mean volume (Bld) [Entitic vol] 11.4 fL Normal 9.0-12.7 [facility] Comment on above: Order Comment: Speci men Type: BLOOD SPECIMENOrdering Facility: [facility] Address: [address] [place] [address] Performed By: #### 5 7021-8 ####[facility] LABCLIA [id number] [facility] Platelets (Bld) [#/Vol] 60 10*3/uL Low 150-400 [facility] Comment on above: Order Comment: Speci men Type: BLOOD SPECIMENOrdering Facility: [facility] Address: [address] [place] [address] Result Comment: No c lot detected. Performed By: #### 5 7021-8 ####[facility] LABCLIA [id number] [facility] [place] [address] [place] RBC (Bld) [#/Vol] 1.96 10*6/uL Low 4.20-6.00 [facility] Comment on above: Order Comment: Speci men Type: BLOOD SPECIMENOrdering Facility: [facility] Address: [address] [place] [address] Performed By: #### 5 7021-8 ####[facility] LABCLIA [id number] [place] [address] [place] WBC (Bld) [#/Vol] 5.40 10*3/uL Normal 3.70-11.00 [facility] Comment on above: Order Comment: Speci men Type: BLOOD SPECIMENOrdering Facility: [facility] Address: [address] [place] [address] Performed By: #### 5 7021-8 ####[facility] LABCLIA [id number] [place] [address] [facility] Comprehensive metabolic 2000 panelon 02-11-2024 Albumin [Mass/Vol] 3.7 g/dL Low 3.9-4.9 [facility] Comment on above: Order Comment: Speci men Type: BLOOD SPECIMENOrdering Facility: [facility] Address: [address] [place] [address] Performed By: #### 2 4323-8 ####[facility] LABCLIA [id number] [facility] [place] [address] [place] ALP [Catalytic activity/Vol] 73 U/L Normal 38-113 [facility] Comment on above: Order Comment: Speci men Type: BLOOD SPECIMENOrdering Facility: [facility] Address: [address] [place] [address] Performed By: #### 2 4323-8 ####[facility] LABCLIA [id number] [place] [address] [place] ALT With P-5'-P [Catalytic activity/Vol] 16 U/L Normal 10-54 [facility] Comment on above: Order Comment: Speci men Type: BLOOD SPECIMENOrdering Facility: [facility] Address: [address] [place] [address] Performed By: #### 2 4323-8 ####[facility] LABCLIA [id number] [place] [address] [place] Anion gap [Moles/Vol] 11 mmol/L Normal 8-15 [facility] Comment on above: Order Comment: Speci men Type: BLOOD SPECIMENOrdering Facility: [facility] Address: [address] [place] [address] Performed By: #### 2 4323-8 ####[facility] LABCLIA [id number] [place] [address] [place] AST With P-5'-P [Catalytic activity/Vol] 20 U/L Normal 14-40 [facility] Comment on above: Order Comment: Speci men Type: BLOOD SPECIMENOrdering Facility: [facility] Address: [address] [place] [address] Performed By: #### 2 4323-8 ####[facility] LABCLIA [id number] [facility] [place] [address] [place] Bilirubin [Mass/Vol] 0.2 mg/dL Normal 0.2-1.3 [facility] Comment on above: Order Comment: Speci men Type: BLOOD SPECIMENOrdering Facility: [facility] Address: [address] [place] [address] Performed By: #### 2 4323-8 ####[facility] LABCLIA [id number] [place] [address] [place] Calcium [Mass/Vol] 9.2 mg/dL Normal 8.5-10.2 [facility] Comment on above: Order Comment: Speci men Type: BLOOD SPECIMENOrdering Facility: [facility] Address: [address] [place] [address] Performed By: #### 2 4323-8 ####[facility] LABCLIA [id number] [place] [address] [place] Chloride [Moles/Vol] 102 mmol/L Normal 98-107 [facility] Comment on above: Order Comment: Speci men Type: BLOOD SPECIMENOrdering Facility: [facility] Address: [address] [place] [address] Performed By: #### 2 4323-8 ####[facility] LABCLIA [id number] [facility] [place] [address] [place] CO2 [Moles/Vol] 24 mmol/L Normal 22-30 [facility] Comment on above: Order Comment: Speci men Type: BLOOD SPECIMENOrdering Facility: [facility] Address: [address] [place] [address] Performed By: #### 2 4323-8 ####[facility] LABCLIA [id number] [place] [address] [place] Creatinine [Mass/Vol] 0.84 mg/dL Normal 0.73-1.22 [facility] Comment on above: Order Comment: Mathew men Type: BLOOD SPECIMENOrdering Facility: [facility] Address: [address] [place] [address] Performed By: #### 2 4323-8 ####[facility] LABCLIA [id number] [place] [address] [facility] Creatinine and Glomerular filtration rate.predicted panel (S/P/Bld) 88 mL/min/1.73m??? Normal >=60 [facility] Comment on above: Order Comment: Mathew portillo Type: BLOOD SPECIMENOrdering Facility: [facility] Address: [address] [place] [address] Result Comment: Sharon mated Glomerular Filtration Rate (eGFR) is calculated using the 2020 CKD-EPI creatinine equation. This equation utilizes serum creatinine, sex, and age as parameters. The creatinine assay has traceable calibration to isotope dilution-mass spectrometry. Refer to KDIGO guidelines for clinical interpretation. In patients with unstable renal function, e.g. those with acute kidney injury, the eGFR may not accurately reflect actual GFR. Performed By: #### 2 4323-8 ####[facility] LABCLIA [id number] [place] [address] [place] Glucose [Mass/Vol] 230 mg/dL High 74-99 [facility] Comment on above: Order Comment: Mathew lindsey Type: BLOOD SPECIMENOrdering Facility: [facility] Address: [address] [place] [address] Result Comment: The [place] [employer] (ADA) provides guidance for cutoff values for fasting glucose and random glucose. The ADA defines fasting as no caloric intake for at least 8 hours. Fasting plasma glucose results between 100 to 125 mg/dL indicate increased risk for diabetes (prediabetes).Fasting plasma glucose results greater than or equal to 126 mg/dL meet the criteria for diagnosis of diabetes. In the absence of unequivocal hyperglycemia, results should be confirmed by repeat testing. In a patient with classic symptoms of hyperglycemia or hyperglycemic crisis, random plasma glucose results greater than or equal to 200 mg/dL meet the criteria for diagnosis of diabetes.Reference: Standards of Medical Care in Diabetes 2016, [place] [employer]. Diabetes Care. 2016.39(Suppl 1). Performed By: #### 2 4323-8 ####[employer] [facility] [place] LABCLIA [id number] [place] [address] [place] Potassium [Moles/Vol] 4.3 mmol/L Normal 3.7-5.1 [facility] Comment on above: Order Comment: Mathew portillo Type: BLOOD SPECIMENOrdering Facility: [facility] Address: [address] [place] [address] Performed By: #### 2 4323-8 ####[employer] [facility] LABCLIA [id number] [place] [address] [place] Protein [Mass/Vol] 6.4 g/dL Normal 6.3-8.0 [facility] Comment on above: Order Comment: Speci lindsey Type: BLOOD SPECIMENOrdering Facility: [facility] Address: [address] [place] [address] Performed By: #### 2 4323-8 ####[employer] [facility] WeditI LABCLIA [id number] [place] [address] [place] Sodium [Moles/Vol] 137 mmol/L Normal 136-144 [facility] Comment on above: Order Comment: Speci men Type: BLOOD SPECIMENOrdering Facility: [facility] Address: [address] [place] [address] Performed By: #### 2 4323-8 ####[facility] LABCLIA [id number] [place] [address] [place] Urea nitrogen [Mass/Vol] 17 mg/dL Normal 9-24 [facility] Comment on above: Order Comment: Myauri men Type: BLOOD SPECIMENOrdering Facility: [facility] Address: [address] [place] [address] Performed By: #### 2 4323-8 ####[facility] LABCLIA [id number] [place], [place] [address] [place] [address] TYPE + SCREENon 02-11-2024 ABO B Normal [facility] Comment on above: Order Comment: Speci men Type: BLOOD SPECIMENOrdering Facility: [facility] Address: [address] [place] [address] Performed By: #### T SCR ####[facility] BLOOD BANKCLIA [id number] [address] [place] Rh Nom (Bld) Positive Normal [facility] Comment on above: Order Comment: Speci men Type: BLOOD SPECIMENOrdering Facility: [facility] Address: [address] [place] [address] Performed By: #### T SCR ####[facility] BLOOD BANKCLIA [id number] [address] TYPE AND SCREEN EXPIRATION 02/14/2024 23:59 Normal [facility] Comment on above: Order Comment: Speci men Type: BLOOD SPECIMENOrdering Facility: [facility] Address: [address] [place] [address] Performed By: #### T SCR ####[facility] BLOOD BANKCLIA [id number] [address] [place] CBC W Auto Differential pane l (Bld)on 02-07-2024 Basophils (Bld) [#/Vol] NINF [facility] Basophils/100 WBC (Bld) 0.4 % [facility] Differential cell count method Nom (Bld) Auto [facility] Eosinophils (Bld) [#/Vol] [facility] Eosinophils/100 WBC (Bld) 0.2 % [facility] Erythrocyte distribution width (RBC) [Ratio] 21.1 % High 11.5 - 15.0 % [facility] Hematocrit (Bld) [Volume fraction] 19.6 % Low 39.0 - 51.0 % [facility] Hemoglobin (Bld) [Mass/Vol] 6.6 g/dL Low 13.0 - 17.0 g/dL [facility] Immature granulocytes (Bld) [#/Vol] [facility] Immature granulocytes/100 WBC (Bld) 0.4 % [facility] Interpretation and review of laboratory results Abnormal [facility] Lymphocytes (Bld) [#/Vol] 1.56 10*3/uL [facility] Lymphocytes/100 WBC (Bld) 31.5 % [facility] MCH (RBC) [Entitic mass] 37.1 pg High 26.0 - 34.0 pg [facility] MCHC (RBC) [Mass/Vol] 33.7 g/dL 30.5 - 36.0 g/dL [facility] MCV (RBC) [Entitic vol] 110.1 fL High 80.0 - 100.0 fL [facility] Monocytes (Bld) [#/Vol] 0.32 10*3/uL [facility] Monocytes/100 WBC (Bld) 6.5 % [facility] Neutrophils (Bld) [#/Vol] 3.03 10*3/uL [facility] Neutrophils/100 WBC (Bld) 61.0 % [facility] Nucleated RBC (Bld) [#/Vol] [facility] Nucleated RBC/100 WBC (Bld) [Ratio] 0.0 % /100 WBC [facility] Platelet mean volume (Bld) [Entitic vol] 12.1 fL 9.0 - 12.7 fL [facility] Platelets (Bld) [#/Vol] 74 10*3/uL Low [facility] Comment on above: No clot detected. RBC (Bld) [#/Vol] 1.78 10*6/uL Low 4.20 - 6.0 0 m/uL [facility] WBC (Bld) [#/Vol] 4.96 10*3/uL [facility] Basophils (Bld) [#/Vol] 10*3/uL Normal <0.11 [facility] Comment on above: Order Comment: Speci men Type: BLOOD SPECIMENOrdering Facility: [facility] Address: [address] [place] [address] Performed By: #### 5 7021-8 ####[facility] LABORATORYCLIA [id number] [place] [address] [place] Basophils/100 WBC (Bld) 0.4 % Normal [facility] Comment on above: Order Comment: Speci men Type: BLOOD SPECIMENOrdering Facility: [facility] Address: [address] [place] [address] Performed By: #### 5 7021-8 ####[facility] LABORATORYCLIA [id number] [address] [place] Differential cell count method Nom (Bld) Auto Normal [facility] Comment on above: Order Comment: Speci men Type: BLOOD SPECIMENOrdering Facility: [facility] Address: [address] [place] [address] Performed By: #### 5 7021-8 ####[facility] LABORATORYCLIA [id number] [address] Eosinophils (Bld) [#/Vol] 10*3/uL Normal <0.46 [facility] Comment on above: Order Comment: Speci men Type: BLOOD SPECIMENOrdering Facility: [facility] Address: [address] [place] [address] Performed By: #### 5 7021-8 ####[facility] LABORATORYCLIA [id number] [address] Eosinophils/100 WBC (Bld) 0.2 % Normal [facility] Comment on above: Order Comment: Speci men Type: BLOOD SPECIMENOrdering Facility: [facility] Address: [address] [place] [address] Performed By: #### 5 7021-8 ####[facility] LABORATORYCLIA [id number] [address] [place] Erythrocyte distribution width (RBC) [Ratio] 21.1 % High 11.5-15.0 [facility] Comment on above: Order Comment: Speci men Type: BLOOD SPECIMENOrdering Facility: [facility] Address: [address] [place] [address] Performed By: #### 5 7021-8 ####[facility] LABORATORYCLIA [id number] [address] [place] Hematocrit (Bld) [Volume fraction] 19.6 % Low 39.0-51.0 [facility] Comment on above: Order Comment: Speci men Type: BLOOD SPECIMENOrdering Facility: [facility] Address: [address] [place] [address] Performed By: #### 5 7021-8 ####[facility] LABORATORYCLIA [id number] [place] [address] [place] Hemoglobin (Bld) [Mass/Vol] 6.6 g/dL Low 13.0-17.0 [facility] Comment on above: Order Comment: Speci men Type: BLOOD SPECIMENOrdering Facility: [facility] Address: [address] [place] [address] Performed By: #### 5 7021-8 ####[facility] LABORATORYCLIA [id number] [address] [place] Immature granulocytes (Bld) [#/Vol] 10*3/uL Normal <0.10 [facility] Comment on above: Order Comment: Speci men Type: BLOOD SPECIMENOrdering Facility: [facility] Address: [address] [place] [address] Performed By: #### 5 7021-8 ####[facility] LABORATORYCLIA [id number] [address] [place] Immature granulocytes/100 WBC (Bld) 0.4 % Normal [facility] Comment on above: Order Comment: Speci men Type: BLOOD SPECIMENOrdering Facility: [facility] Address: [address] [place] [address] Performed By: #### 5 7021-8 ####[facility]ORATORYCLIA [id number] [place] [address] [place] Lymphocytes (Bld) [#/Vol] 1.56 10*3/uL Normal 1.00-4.00 [facility] Comment on above: Order Comment: Speci men Type: BLOOD SPECIMENOrdering Facility: [facility] Address: [address] [place] [address] Performed By: #### 5 7021-8 ####[facility] LABORATORYCLIA [id number] [address] STATES [facility] Lymphocytes/100 WBC (Bld) 31.5 % Normal [facility] Comment on above: Order Comment: Speci men Type: BLOOD SPECIMENOrdering Facility: [facility] Address: [address] [place] [address] Performed By: #### 5 7021-8 ####[facility] LABORATORYCLIA [id number] [address] STATES [facility] MCH (RBC) [Entitic mass] 37.1 pg High 26.0-34.0 [facility] Comment on above: Order Comment: Speci men Type: BLOOD SPECIMENOrdering Facility: [facility] Address: [address] [place] [address] Performed By: #### 5 7021-8 ####[facility] LABORATORYCLIA [id number] [address] MCHC (RBC) [Mass/Vol] 33.7 g/dL Normal 30.5-36.0 [facility] Comment on above: Order Comment: Speci men Type: BLOOD SPECIMENOrdering Facility: [facility] Address: [address] [place] [address] Performed By: #### 5 7021-8 ####[facility] LABORATORYCLIA [id number] [address] MCV (RBC) [Entitic vol] 110.1 fL High 80.0-100.0 [facility] Comment on above: Order Comment: Speci men Type: BLOOD SPECIMENOrdering Facility: [facility] Address: [address] [place] [address] Performed By: #### 5 7021-8 ####[facility] LABORATORYCLIA [id number] [address] Monocytes (Bld) [#/Vol] 0.32 10*3/uL Normal <0.87 [facility] Comment on above: Order Comment: Speci men Type: BLOOD SPECIMENOrdering Facility: [facility] Address: [address] [place] [address] Performed By: #### 5 7021-8 ####[facility] LABORATORYCLIA [id number] [place] [id number] [place] Monocytes/100 WBC (Bld) 6.5 % Normal [facility] Comment on above: Order Comment: Speci men Type: BLOOD SPECIMENOrdering Facility: [facility] Address: [address] [place] [address] Performed By: #### 5 7021-8 ####[facility] LABORATORYCLIA [id number] [place] [address] [place] Neutrophils (Bld) [#/Vol] 3.03 10*3/uL Normal 1.45-7.50 [facility] Comment on above: Order Comment: Speci men Type: BLOOD SPECIMENOrdering Facility: [facility] Address: [address] [place] [address] Performed By: #### 5 7021-8 ####[facility] LABORATORYCLIA [id number] [address] [place] Neutrophils/100 WBC (Bld) 61.0 % Normal [facility] Comment on above: Order Comment: Speci men Type: BLOOD SPECIMENOrdering Facility: [facility] Address: [address] [place] [address] Performed By: #### 5 7021-8 ####[facility]ORATORYCLIA [id number] [place] [address] [place] Nucleated RBC (Bld) [#/Vol] 10*3/uL Normal <0.01 [facility] Comment on above: Order Comment: Speci men Type: BLOOD SPECIMENOrdering Facility: [facility] Address: [address] [place] [address] Performed By: #### 5 7021-8 ####[facility]ORATORYCLIA [id number] [place] [address] [place] Nucleated RBC/100 WBC (Bld) [Ratio] 0.0 /100 WBC Normal [facility] Comment on above: Order Comment: Speci men Type: BLOOD SPECIMENOrdering Facility: [facility] Address: [address] [place] [address] Performed By: #### 5 7021-8 ####[facility] LABORATORYCLIA [id number] [address] [place] Platelet mean volume (Bld) [Entitic vol] 12.1 fL Normal 9.0-12.7 [facility] Comment on above: Order Comment: Speci men Type: BLOOD SPECIMENOrdering Facility: [facility] Address: [address] [place] [address] Performed By: #### 5 7021-8 ####[facility] LABORATORYCLIA [id number] [address] [place] Platelets (Bld) [#/Vol] 74 10*3/uL Low 150-400 [facility] Comment on above: Order Comment: Speci men Type: BLOOD SPECIMENOrdering Facility: [facility] Address: [address] [place] [address] Result Comment: No c lot detected. Performed By: #### 5 7021-8 ####[facility] LABORATORYCLIA [id number] [place] [address] [place] RBC (Bld) [#/Vol] 1.78 10*6/uL Low 4.20-6.00 [facility] Comment on above: Order Comment: Speci men Type: BLOOD SPECIMENOrdering Facility: [facility] Address: [address] [place] [address] Performed By: #### 5 7021-8 ####[facility] LABORATORYCLIA [id number] [place] [address] [place] WBC (Bld) [#/Vol] 4.96 10*3/uL Normal 3.70-11.00 [facility] Comment on above: Order Comment: Speci men Type: BLOOD SPECIMENOrdering Facility: [facility] Address: [address] [place] [address] Performed By: #### 5 7021-8 ####[facility] LABORATORYCLIA [id number] [place] [address] [place] Comprehensive metabolic 2000 panelon 02-07-2024 Albumin [Mass/Vol] 3.8 g/dL Low 3.9 - 4.9 g/dL [facility] ALP [Catalytic activity/Vol] 70 U/L 38 - 113 U/L [facility] ALT With P-5'-P [Catalytic activity/Vol] 12 U/L 10 - 54 U/L [facility] Anion gap [Moles/Vol] 14 mmol/L 8 - 15 mmol/L [facility] AST With P-5'-P [Catalytic activity/Vol] 15 U/L 14 - 40 U/L [facility] Bilirubin [Mass/Vol] 0.2 mg/dL 0.2 - 1 .3 mg/dL [facility] Calcium [Mass/Vol] 9.2 mg/dL 8.5 - 10. 2 mg/dL [facility] Chloride [Moles/Vol] 103 mmol/L 98 - 10 7 mmol/L [facility] CO2 [Moles/Vol] 21 mmol/L Low 22 - 30 mmol/L [facility] Creatinine [Mass/Vol] 0.92 mg/dL 0.73 - 1.22 mg/dL [facility] GFR/1.73 sq M.predicted among non-blacks MDRD (S/P/Bld) [Vol rate/Area] 84 mL/min/{1.73_m2} - PINF [facility] Comment on above: Estimated Glomerular Filtration Rate (eGFR) is calculated using the 2020 CKD-EPI creatinine equation. This equation utilizes serum creatinine, sex, and age as parameters. The creatinine assay has traceable calibration to isotope dilution-mass spectrometry. Refer to KDIGO guidelines for clinical interpretation. In patients with unstable renal function, e.g. those with acute kidney injury, the eGFR may not accurately reflect actual GFR. Glucose [Mass/Vol] 241 mg/dL High 74 - 99 mg/dL [facility] Comment on above: The [place] [employer] (ADA) provides guidance for cutoff values for fasting glucose and random glucose. The ADA defines fasting as no caloric intake for at least 8 hours. Fasting plasma glucose results between 100 to 125 mg/dL indicate increased risk for diabetes (prediabetes). Fasting plasma glucose results greater than or equal to 126 mg/dL meet the criteria for diagnosis of diabetes. In the absence of unequivocal hyperglycemia, results should be confirmed by repeat testing. In a patient with classic symptoms of hyperglycemia or hyperglycemic crisis, random plasma glucose results greater than or equal to 200 mg/dL meet the criteria for diagnosis of diabetes. Reference: Standards of Medical Care in Diabetes 2016, [place] [employer]. Diabetes Care. 2016.39(Suppl 1). Interpretation and review of laboratory results Abnormal [facility] Potassium [Moles/Vol] 4.3 mmol/L 3.7 - 5.1 mmol/L [facility] Protein [Mass/Vol] 6.4 g/dL 6.3 - 8.0 g/dL [facility] Sodium [Moles/Vol] 138 mmol/L 136 - 144 mmol/L [facility] Urea nitrogen [Mass/Vol] 17 mg/dL 9 - 24 mg/dL [facility] Albumin [Mass/Vol] 3.8 g/dL Low 3.9-4.9 [facility] Comment on above: Order Comment: Mathew portillo Type: BLOOD SPECIMENOrdering Facility: [facility] Address: [address] [place] [address] Performed By: #### 2 4323-8 ####[facility] LABORATORYCLIA [id number] [address] ALP [Catalytic activity/Vol] 70 U/L Normal 38-113 [facility] Comment on above: Order Comment: Mathew portillo Type: BLOOD SPECIMENOrdering Facility: [facility] Address: [address] [place] [address] Performed By: #### 2 4323-8 ####[facility] LABORATORYCLIA [id number] [address] STATES [facility] ALT With P-5'-P [Catalytic activity/Vol] 12 U/L Normal 10-54 [facility] Comment on above: Order Comment: Mathew portillo Type: BLOOD SPECIMENOrdering Facility: [facility] Address: [address] [place] [address] Performed By: #### 2 4323-8 ####[facility] LABORATORYCLIA [id number] [address] Anion gap [Moles/Vol] 14 mmol/L Normal 8-15 [facility] Comment on above: Order Comment: Speci men Type: BLOOD SPECIMENOrdering Facility: [facility] Address: [address] [place] [address] Performed By: #### 2 4323-8 ####[facility] LABORATORYCLIA [id number] [place] [address] [place] AST With P-5'-P [Catalytic activity/Vol] 15 U/L Normal 14-40 [facility] Comment on above: Order Comment: Speci men Type: BLOOD SPECIMENOrdering Facility: [facility] Address: [address] [place] [address] Performed By: #### 2 4323-8 ####[facility] LABORATORYCLIA [id number] [address] [place] Bilirubin [Mass/Vol] 0.2 mg/dL Normal 0.2-1.3 [facility] Comment on above: Order Comment: Speci men Type: BLOOD SPECIMENOrdering Facility: [facility] Address: [address] [place] [address] Performed By: #### 2 4323-8 ####[facility] LABORATORYCLIA [id number] [place] [address] [place] Calcium [Mass/Vol] 9.2 mg/dL Normal 8.5-10.2 [facility] Comment on above: Order Comment: Speci men Type: BLOOD SPECIMENOrdering Facility: [facility] Address: [address] [place] [address] Performed By: #### 2 4323-8 ####[facility]ATORYCLIA [id number] [place] [address] [place] Chloride [Moles/Vol] 103 mmol/L Normal 98-107 [facility] Comment on above: Order Comment: Speci men Type: BLOOD SPECIMENOrdering Facility: [facility] Address: [address] [place] [address] Performed By: #### 2 4323-8 ####[facility]ATORYCLIA [id number] [place] [address] CO2 [Moles/Vol] 21 mmol/L Low 22-30 [facility] Comment on above: Order Comment: Speci men Type: BLOOD SPECIMENOrdering Facility: [facility] Address: [address] [place] [address] Performed By: #### 2 4323-8 ####[facility] LABORATORYCLIA [id number] [address] [place] Creatinine [Mass/Vol] 0.92 mg/dL Normal 0.73-1.22 [facility] Comment on above: Order Comment: Speci men Type: BLOOD SPECIMENOrdering Facility: [facility] Address: [address] [place] [address] Performed By: #### 2 4323-8 ####[facility] LABORATORYCLIA [id number] [address] Creatinine and Glomerular filtration rate.predicted panel (S/P/Bld) 84 mL/min/1.73m??? Normal >=60 [facility] Comment on above: Order Comment: Speci men Type: BLOOD SPECIMENOrdering Facility: [facility] Address: [address] [place] [address] Result Comment: Sharon mated Glomerular Filtration Rate (eGFR) is calculated using the 2020 CKD-EPI creatinine equation. This equation utilizes serum creatinine, sex, and age as parameters. The creatinine assay has traceable calibration to isotope dilution-mass spectrometry. Refer to KDIGO guidelines for clinical interpretation. In patients with unstable renal function, e.g. those with acute kidney injury, the eGFR may not accurately reflect actual GFR. Performed By: #### 2 4323-8 ####[facility] LABORATORYCLIA [id number] [address] [place] Glucose [Mass/Vol] 241 mg/dL High 74-99 [facility] Comment on above: Order Comment: Mayuri lindsey Type: BLOOD SPECIMENOrdering Facility: [facility] Address: [address] [place] [address] Result Comment: The [place] Diabetes [employer] (ADA) provides guidance for cutoff values for fasting glucose and random glucose. The ADA defines fasting as no caloric intake for at least 8 hours. Fasting plasma glucose results between 100 to 125 mg/dL indicate increased risk for diabetes (prediabetes).Fasting plasma glucose results greater than or equal to 126 mg/dL meet the criteria for diagnosis of diabetes. In the absence of unequivocal hyperglycemia, results should be confirmed by repeat testing. In a patient with classic symptoms of hyperglycemia or hyperglycemic crisis, random plasma glucose results greater than or equal to 200 mg/dL meet the criteria for diagnosis of diabetes.Reference: Standards of Medical Care in Diabetes 2016, [place] [employer]. Diabetes Care. 2016.39(Suppl 1). Performed By: #### 2 4323-8 ####[facility] LABORATORYCLIA [id number] [place] [address] [place] Potassium [Moles/Vol] 4.3 mmol/L Normal 3.7-5.1 [facility] Comment on above: Order Comment: Speci men Type: BLOOD SPECIMENOrdering Facility: [facility] Address: [address] [place] [address] Performed By: #### 2 4323-8 ####[facility] LABORATORYCLIA [id number] [place] [address] [place] Protein [Mass/Vol] 6.4 g/dL Normal 6.3-8.0 [facility] Comment on above: Order Comment: Speci men Type: BLOOD SPECIMENOrdering Facility: [facility] Address: [address] [place] [address] Performed By: #### 2 4323-8 ####[facility] LABORATORYCLIA [id number] [place] [address] [place] Sodium [Moles/Vol] 138 mmol/L Normal 136-144 [facility] Comment on above: Order Comment: Speci men Type: BLOOD SPECIMENOrdering Facility: [facility] Address: [address] [place] [address] Performed By: #### 2 4323-8 ####[facility] LABORATORYCLIA [id number] [place] [address] [place] Urea nitrogen [Mass/Vol] 17 mg/dL Normal 9-24 [facility] Comment on above: Order Comment: Speci men Type: BLOOD SPECIMENOrdering Facility: [facility] Address: [address] [place] [address] Performed By: #### 2 4323-8 ####[facility] LABORATORYCLIA [id number] [address] OF [facility] TYPE + SCREENon 02-07-2024 ABO B Normal [facility] Comment on above: Order Comment: Speci men Type: BLOOD SPECIMENOrdering Facility: [facility] Address: [address] [place] [address] Performed By: #### T SCR ####[facility] BLOOD BANKCLIA [id number] [address] [place] Rh Nom (Bld) Positive Normal [facility] Comment on above: Order Comment: Speci men Type: BLOOD SPECIMENOrdering Facility: [facility] Address: [address] [place] [address] Performed By: #### T SCR ####[facility] BLOOD BANKCLIA [id number] [address] [place] TYPE AND SCREEN EXPIRATION 02/10/2024 23:59 Normal [facility] Comment on above: Order Comment: Speci men Type: BLOOD SPECIMENOrdering Facility: [facility] Address: [address] [place] [address] Performed By: #### T SCR ####[facility] BLOOD BANKCLIA [id number] [place] [address] [place] ABO group Nom (Bld) B [facility] Blood group antibody screen Ql Negative [facility] Rh Nom (Bld) Positive [facility] Type and Screen Expiration 02/10/2024 23:59 [facility] CBC W Auto Differential pane l (Bld)on 01-28-2024 Basophils (Bld) [#/Vol] 10*3/uL Normal <0.11 [facility] Comment on above: Order Comment: Speci men Type: BLOOD SPECIMENOrdering Facility: [facility] Address: [address] [place] [address] Performed By: #### 5 7021-8 ####[facility] LABCLIA [id number] [place] [address] [facility] [place] Basophils/100 WBC (Bld) 0.4 % Normal [facility] Comment on above: Order Comment: Speci men Type: BLOOD SPECIMENOrdering Facility: [facility] Address: [address] [place] [address] Performed By: #### 5 7021-8 ####[facility] LABCLIA [id number] [place] [address] [facility] Differential cell count method Nom (Bld) Auto Normal [facility] Comment on above: Order Comment: Speci men Type: BLOOD SPECIMENOrdering Facility: [facility] Address: [address] [place] [address] Performed By: #### 5 7021-8 ####[facility] LABCLIA [id number] [place] [address] [place] Eosinophils (Bld) [#/Vol] 10*3/uL Normal <0.46 [facility] Comment on above: Order Comment: Speci men Type: BLOOD SPECIMENOrdering Facility: [facility] Address: [address] [place] [address] Performed By: #### 5 7021-8 ####[facility] [place] LABCLIA [id number] [place] [address] [facility] Eosinophils/100 WBC (Bld) 0.4 % Normal [facility] Comment on above: Order Comment: Speci men Type: BLOOD SPECIMENOrdering Facility: [facility] Address: [address] [place] [address] Performed By: #### 5 7021-8 ####[facility] [place] LABCLIA [id number] [place] [address] [facility] [place] Erythrocyte distribution width (RBC) [Ratio] 19.7 % High 11.5-15.0 [facility] Comment on above: Order Comment: Speci men Type: BLOOD SPECIMENOrdering Facility: [facility] Address: [address] [place] [address] Performed By: #### 5 7021-8 ####[facility] [place] LABCLIA [id number] [place] [address] [place] Hematocrit (Bld) [Volume fraction] 21.9 % Low 39.0-51.0 [facility] Comment on above: Order Comment: Speci men Type: BLOOD SPECIMENOrdering Facility: [facility] Address: [address] [place] [address] Performed By: #### 5 7021-8 ####[facility] LABCLIA [id number] [facility] [place] [address] [facility] [place] Hemoglobin (Bld) [Mass/Vol] 7.0 g/dL Low 13.0-17.0 [facility] Comment on above: Order Comment: Speci men Type: BLOOD SPECIMENOrdering Facility: [facility] Address: [address] [place] [address] Performed By: #### 5 7021-8 ####[facility] LABCLIA [id number] [place] [address] [place] Immature granulocytes (Bld) [#/Vol] 10*3/uL Normal <0.10 [facility] Comment on above: Order Comment: Speci men Type: BLOOD SPECIMENOrdering Facility: [facility] Address: [address] [place] [address] Performed By: #### 5 7021-8 ####[facility] LABCLIA [id number] [place] [address] [place] Immature granulocytes/100 WBC (Bld) 0.2 % Normal [facility] Comment on above: Order Comment: Speci men Type: BLOOD SPECIMENOrdering Facility: [facility] Address: [address] [place] [address] Performed By: #### 5 7021-8 ####[facility] LABCLIA [id number] [facility] [place] [address] [facility] [place] Lymphocytes (Bld) [#/Vol] 2.14 10*3/uL Normal 1.00-4.00 [facility] Comment on above: Order Comment: Speci men Type: BLOOD SPECIMENOrdering Facility: [facility] Address: [address] [place] [address] Performed By: #### 5 7021-8 ####[facility] LABCLIA [id number] [place] [address] [facility] Lymphocytes/100 WBC (Bld) 38.0 % Normal [facility] Comment on above: Order Comment: Speci men Type: BLOOD SPECIMENOrdering Facility: [facility] Address: [address] [place] [address] Performed By: #### 5 7021-8 ####[facility] LABCLIA [id number] [place] [address] [place] MCH (RBC) [Entitic mass] 37.6 pg High 26.0-34.0 [facility] Comment on above: Order Comment: Speci men Type: BLOOD SPECIMENOrdering Facility: [facility] Address: [address] [place] [address] Performed By: #### 5 7021-8 ####[facility] LABCLIA [id number] [place] [address] [place] [facility] MCHC (RBC) [Mass/Vol] 32.0 g/dL Normal 30.5-36.0 [facility] Comment on above: Order Comment: Speci men Type: BLOOD SPECIMENOrdering Facility: [facility] Address: [address] [place] [address] Performed By: #### 5 7021-8 ####[facility] [place] LABCLIA [id number] [place] [address] [place] [facility] MCV (RBC) [Entitic vol] 117.7 fL High 80.0-100.0 [facility] Comment on above: Order Comment: Speci men Type: BLOOD SPECIMENOrdering Facility: [facility] Address: [address] [place] [address] Performed By: #### 5 7021-8 ####[facility] [place] LABCLIA [id number] [place] [address] [place] Monocytes (Bld) [#/Vol] 0.52 10*3/uL Normal <0.87 [facility] Comment on above: Order Comment: Speci men Type: BLOOD SPECIMENOrdering Facility: [facility] Address: [address] [place] [address] Performed By: #### 5 7021-8 ####[facility] [place] LABCLIA [id number] [place] [address] [place] Monocytes/100 WBC (Bld) 9.2 % Normal [facility] Comment on above: Order Comment: Speci men Type: BLOOD SPECIMENOrdering Facility: [facility] Address: [address] [place] [address] Performed By: #### 5 7021-8 ####[facility] [place] LABCLIA [id number] [place] [address] [place] Neutrophils (Bld) [#/Vol] 2.92 10*3/uL Normal 1.45-7.50 [facility] Comment on above: Order Comment: Speci men Type: BLOOD SPECIMENOrdering Facility: [facility] Address: [address] [place] [address] Performed By: #### 5 7021-8 ####[facility] LABCLIA [id number] [facility] [place] [address] [place] Neutrophils/100 WBC (Bld) 51.8 % Normal [facility] Comment on above: Order Comment: Speci men Type: BLOOD SPECIMENOrdering Facility: [facility] Address: [address] [place] [address] Performed By: #### 5 7021-8 ####[facility] [place] LABCLIA [id number] [place] [address] [place] Nucleated RBC (Bld) [#/Vol] Normal [facility] Comment on above: Order Comment: Speci men Type: BLOOD SPECIMENOrdering Facility: [facility] Address: [address] [place] [address] Performed By: #### 5 7021-8 ####[facility] [place] LABCLIA [id number] [place] [address] [place] Nucleated RBC/100 WBC (Bld) [Ratio] Normal [facility] Comment on above: Order Comment: Speci men Type: BLOOD SPECIMENOrdering Facility: [facility] Address: [address] [place] [address] Performed By: #### 5 7021-8 ####[facility] [place] LABCLIA [id number] [place] [address] [place] Platelet mean volume (Bld) [Entitic vol] 12.6 fL Normal 9.0-12.7 [facility] Comment on above: Order Comment: Speci men Type: BLOOD SPECIMENOrdering Facility: [facility] Address: [address] [place] [address] Performed By: #### 5 7021-8 ####[facility] LABCLIA [id number] [facility] [place] [address] [place] Platelets (Bld) [#/Vol] 91 10*3/uL Low 150-400 [facility] Comment on above: Order Comment: Speci men Type: BLOOD SPECIMENOrdering Facility: [facility] Address: [address] [place] [address] Result Comment: No c lot detected. Performed By: #### 5 7021-8 ####[facility] [place] LABCLIA [id number] [place] [address] [place] RBC (Bld) [#/Vol] 1.86 10*6/uL Low 4.20-6.00 [facility] Comment on above: Order Comment: Speci men Type: BLOOD SPECIMENOrdering Facility: [facility] Address: [address] [place] [address] Performed By: #### 5 7021-8 ####[facility] [place] LABCLIA [id number] [place] [address] [facility] WBC (Bld) [#/Vol] 5.63 10*3/uL Normal 3.70-11.00 [facility] Comment on above: Order Comment: Speci men Type: BLOOD SPECIMENOrdering Facility: [facility] Address: [address] [place] [address] Performed By: #### 5 7021-8 ####[facility] [place] LABCLIA [id number] [place] [address] [facility] Comprehensive metabolic 2000 panelon 01-28-2024 Albumin [Mass/Vol] 4.0 g/dL Normal 3.9-4.9 [facility] Comment on above: Order Comment: Speci men Type: BLOOD SPECIMENOrdering Facility: [facility] Address: [address] [place] [address] Performed By: #### 2 4323-8 ####[facility] [place] LABCLIA [id number] [place] [address] [place] ALP [Catalytic activity/Vol] 72 U/L Normal 38-113 [facility] Comment on above: Order Comment: Speci men Type: BLOOD SPECIMENOrdering Facility: [facility] Address: [address] [place] [address] Performed By: #### 2 4323-8 ####[facility] LABCLIA [id number] [place] [address] [facility] ALT With P-5'-P [Catalytic activity/Vol] 13 U/L Normal 10-54 [facility] Comment on above: Order Comment: Speci men Type: BLOOD SPECIMENOrdering Facility: [facility] Address: [address] [place] [address] Performed By: #### 2 4323-8 ####[facility] LABCLIA [id number] [place] [address] [facility] Anion gap [Moles/Vol] 14 mmol/L Normal 8-15 [facility] Comment on above: Order Comment: Speci men Type: BLOOD SPECIMENOrdering Facility: [facility] Address: [address] [place] [address] Performed By: #### 2 4323-8 ####[facility] [place] LABCLIA [id number] [place] [address] [place] AST With P-5'-P [Catalytic activity/Vol] 15 U/L Normal 14-40 [facility] Comment on above: Order Comment: Speci men Type: BLOOD SPECIMENOrdering Facility: [facility] Address: [address] [place] [address] Performed By: #### 2 4323-8 ####[facility] LABCLIA [id number] [facility] [place] [address] [place] Bilirubin [Mass/Vol] 0.2 mg/dL Normal 0.2-1.3 [facility] Comment on above: Order Comment: Speci men Type: BLOOD SPECIMENOrdering Facility: [facility] Address: [address] [place] [address] Performed By: #### 2 4323-8 ####[facility] LABCLIA [id number] [place] [address] [place] Calcium [Mass/Vol] 9.7 mg/dL Normal 8.5-10.2 [facility] Comment on above: Order Comment: Speci men Type: BLOOD SPECIMENOrdering Facility: [facility] Address: [address] [place] [address] Performed By: #### 2 4323-8 ####[facility] LABCLIA [id number] [place] [address] [place] Chloride [Moles/Vol] 104 mmol/L Normal 98-107 [facility] Comment on above: Order Comment: Speci men Type: BLOOD SPECIMENOrdering Facility: [facility] Address: [address] [place] [address] Performed By: #### 2 4323-8 ####[facility] LABCLIA [id number] [facility] [place] [address] [place] CO2 [Moles/Vol] 20 mmol/L Low 22-30 [facility] Comment on above: Order Comment: Mathew portillo Type: BLOOD SPECIMENOrdering Facility: [facility] Address: [address] [place] [address] Performed By: #### 2 4323-8 ####[facility] LABCLIA [id number] [place] [address] [place] Creatinine [Mass/Vol] 1.04 mg/dL Normal 0.73-1.22 [facility] Comment on above: Order Comment: Mathew portillo Type: BLOOD SPECIMENOrdering Facility: [facility] Address: [address] [place] [address] Performed By: #### 2 4323-8 ####[facility] LABCLIA [id number] [place] [address] [place] Creatinine and Glomerular filtration rate.predicted panel (S/P/Bld) 73 mL/min/1.73m??? Normal >=60 [facility] Comment on above: Order Comment: Mathew portillo Type: BLOOD SPECIMENOrdering Facility: [facility] Address: [address] [place] [address] Result Comment: Sharon mated Glomerular Filtration Rate (eGFR) is calculated using the 2020 CKD-EPI creatinine equation. This equation utilizes serum creatinine, sex, and age as parameters. The creatinine assay has traceable calibration to isotope dilution-mass spectrometry. Refer to KDIGO guidelines for clinical interpretation. In patients with unstable renal function, e.g. those with acute kidney injury, the eGFR may not accurately reflect actual GFR. Performed By: #### 2 4323-8 ####[facility] LABCLIA [id number] [place] [address] [place] Glucose [Mass/Vol] 185 mg/dL High 74-99 [facility] Comment on above: Order Comment: Mathew portillo Type: BLOOD SPECIMENOrdering Facility: [facility] Address: [address] [place] [address] Result Comment: The [place] Diabetes [employer] (ADA) provides guidance for cutoff values for fasting glucose and random glucose. The ADA defines fasting as no caloric intake for at least 8 hours. Fasting plasma glucose results between 100 to 125 mg/dL indicate increased risk for diabetes (prediabetes).Fasting plasma glucose results greater than or equal to 126 mg/dL meet the criteria for diagnosis of diabetes. In the absence of unequivocal hyperglycemia, results should be confirmed by repeat testing. In a patient with classic symptoms of hyperglycemia or hyperglycemic crisis, random plasma glucose results greater than or equal to 200 mg/dL meet the criteria for diagnosis of diabetes.Reference: Standards of Medical Care in Diabetes 2016, [place] [employer]. Diabetes Care. 2016.39(Suppl 1). Performed By: #### 2 4323-8 ####[employer] [facility] [place] LABCLIA [id number] [place] [address] [place] Potassium [Moles/Vol] 4.5 mmol/L Normal 3.7-5.1 [facility] Comment on above: Order Comment: Mathew portillo Type: BLOOD SPECIMENOrdering Facility: [facility] Address: [address] [place] [address] Performed By: #### 2 4323-8 ####[facility]I LABCLIA [id number] [place] [address] [place] Protein [Mass/Vol] 6.9 g/dL Normal 6.3-8.0 [facility] Comment on above: Order Comment: Mathew portillo Type: BLOOD SPECIMENOrdering Facility: [facility] Address: [address] [place] [address] Performed By: #### 2 4323-8 ####[employer] [facility] [place] LABCLIA [id number] [place] [address] [place] Sodium [Moles/Vol] 138 mmol/L Normal 136-144 [facility] Comment on above: Order Comment: Mathew portillo Type: BLOOD SPECIMENOrdering Facility: [facility] Address: [address] [place] [address] Performed By: #### 2 4323-8 ####[facility] LABCLIA [id number] [place] [address] [place] Urea nitrogen [Mass/Vol] 25 mg/dL High 9-24 [facility] Comment on above: Order Comment: Speci men Type: BLOOD SPECIMENOrdering Facility: [facility] Address: [address] [place] [address] Performed By: #### 2 4323-8 ####[facility] LABCLIA [id number] [place] [address] [facility] TYPE + SCREENon 01-28-2024 ABO B Normal [facility] Comment on above: Order Comment: Speci men Type: BLOOD SPECIMENOrdering Facility: [facility] Address: [address] [place] [address] Performed By: #### T SCR ####[facility] BLOOD BANKCLIA [id number] [address] Rh Nom (Bld) Positive Normal [facility] Comment on above: Order Comment: Speci men Type: BLOOD SPECIMENOrdering Facility: [facility] Address: [address] [place] [address] Performed By: #### T SCR ####[facility] BLOOD BANKCLIA [id number] [address] TYPE AND SCREEN EXPIRATION 01/31/2024 23:59 Normal [facility] Comment on above: Order Comment: Speci men Type: BLOOD SPECIMENOrdering Facility: [facility] Address: [address] [place] [address] Performed By: #### T SCR ####[facility] BLOOD BANKCLIA [id number] [address] [place] BILIRUBIN, CONJUGATEDon 12-26 Bilirubin.conjugated [Mass/Vol] mg/dL NINF - 0.2 mg/dL [facility] Bilirub Conj SerPl-mCncon Bilirubin.conjugated [Mass/Vol] mg/dL Normal <0.2 [facility] Comment on above: Order Comment: Speci men Type: BLOOD SPECIMENOrdering Facility: [facility] Address: [address] [place] [address] Performed By: #### 5 0190-8, 2276-4, 08185-3, 51854-0 ####[facility] LABORATORYCLIA [id number] [place] [address] [place] Bilirubin.conjugated [Mass/V ol]on 01-10-2024 Interpretation and review of laboratory results Normal [facility] CBC W Auto Differential pane l (Bld)on 01-10-2024 Basophils (Bld) [#/Vol] NINF [facility] Basophils/100 WBC (Bld) 0.2 % [facility] Differential cell count method Nom (Bld) Auto [facility] Eosinophils (Bld) [#/Vol] [facility] Eosinophils/100 WBC (Bld) 0.4 % [facility] Erythrocyte distribution width (RBC) [Ratio] 20.6 % High 11.5 - 15.0 % [facility] Hematocrit (Bld) [Volume fraction] 26.0 % Low 39.0 - 51.0 % [facility] Hemoglobin (Bld) [Mass/Vol] 8.5 g/dL Low 13.0 - 17.0 g/dL [facility] Immature granulocytes (Bld) [#/Vol] [facility] Immature granulocytes/100 WBC (Bld) 0.2 % [facility] Interpretation and review of laboratory results Abnormal [facility] Lymphocytes (Bld) [#/Vol] 1.39 10*3/uL [facility] Lymphocytes/100 WBC (Bld) 27.9 % [facility] MCH (RBC) [Entitic mass] 37.1 pg High 26.0 - 34.0 pg [facility] MCHC (RBC) [Mass/Vol] 32.7 g/dL 30.5 - 36.0 g/dL [facility] MCV (RBC) [Entitic vol] 113.5 fL High 80.0 - 100.0 fL [facility] Monocytes (Bld) [#/Vol] 0.29 10*3/uL [facility] Monocytes/100 WBC (Bld) 5.8 % [facility] Neutrophils (Bld) [#/Vol] 3.26 10*3/uL [facility] Neutrophils/100 WBC (Bld) 65.5 % [facility] Nucleated RBC (Bld) [#/Vol] 0.06 10*3/uL High [facility] Nucleated RBC/100 WBC (Bld) [Ratio] 1.2 % /100 WBC [facility] Platelet mean volume (Bld) [Entitic vol] 11.9 fL 9.0 - 12.7 fL [facility] Platelets (Bld) [#/Vol] 133 10*3/uL Low [facility] RBC (Bld) [#/Vol] 2.29 10*6/uL Low 4.20 - 6.0 0 m/uL [facility] WBC (Bld) [#/Vol] 4.98 10*3/uL [facility] Basophils (Bld) [#/Vol] 10*3/uL Normal <0.11 [facility] Comment on above: Order Comment: Speci men Type: BLOOD SPECIMENOrdering Facility: [facility] Address: [address] [place] [address] Performed By: #### 5 7021-8 ####[facility] LABORATORYCLIA [id number] [address] [place] Basophils/100 WBC (Bld) 0.2 % Normal [facility] Comment on above: Order Comment: Speci men Type: BLOOD SPECIMENOrdering Facility: [facility] Address: [address] [place] [address] Performed By: #### 5 7021-8 ####[facility] LABORATORYCLIA [id number] [address] [place] Differential cell count method Nom (Bld) Auto Normal [facility] Comment on above: Order Comment: Speci men Type: BLOOD SPECIMENOrdering Facility: [facility] Address: [address] [place] [address] Performed By: #### 5 7021-8 ####[facility] LABORATORYCLIA [id number] [place] [address] [place] Eosinophils (Bld) [#/Vol] 10*3/uL Normal <0.46 [facility] Comment on above: Order Comment: Speci men Type: BLOOD SPECIMENOrdering Facility: [facility] Address: [address] [place] [address] Performed By: #### 5 7021-8 ####[facility] LABORATORYCLIA [id number] [address] [place] Eosinophils/100 WBC (Bld) 0.4 % Normal [facility] Comment on above: Order Comment: Speci men Type: BLOOD SPECIMENOrdering Facility: [facility] Address: [address] [place] [address] Performed By: #### 5 7021-8 ####[facility] LABORATORYCLIA [id number] [address] [place] Erythrocyte distribution width (RBC) [Ratio] 20.6 % High 11.5-15.0 [facility] Comment on above: Order Comment: Speci men Type: BLOOD SPECIMENOrdering Facility: [facility] Address: [address] [place] [address] Performed By: #### 5 7021-8 ####[facility] LABORATORYCLIA [id number] [address] [place] Hematocrit (Bld) [Volume fraction] 26.0 % Low 39.0-51.0 [facility] Comment on above: Order Comment: Speci men Type: BLOOD SPECIMENOrdering Facility: [facility] Address: [address] [place] [address] Performed By: #### 5 7021-8 ####[facility] LABORATORYCLIA [id number] [address] [place] Hemoglobin (Bld) [Mass/Vol] 8.5 g/dL Low 13.0-17.0 [facility] Comment on above: Order Comment: Speci men Type: BLOOD SPECIMENOrdering Facility: [facility] Address: [address] [place] [address] Performed By: #### 5 7021-8 ####[facility] LABORATORYCLIA [id number] [address] Immature granulocytes (Bld) [#/Vol] 10*3/uL Normal <0.10 [facility] Comment on above: Order Comment: Speci men Type: BLOOD SPECIMENOrdering Facility: [facility] Address: [address] [place] [address] Performed By: #### 5 7021-8 ####[facility] LABORATORYCLIA [id number] [address] Immature granulocytes/100 WBC (Bld) 0.2 % Normal [facility] Comment on above: Order Comment: Speci men Type: BLOOD SPECIMENOrdering Facility: [facility] Address: [address] [place] [address] Performed By: #### 5 7021-8 ####[facility] LABORATORYCLIA [id number] [address] [place] Lymphocytes (Bld) [#/Vol] 1.39 10*3/uL Normal 1.00-4.00 [facility] Comment on above: Order Comment: Speci men Type: BLOOD SPECIMENOrdering Facility: [facility] Address: [address] [place] [address] Performed By: #### 5 7021-8 ####[facility] LABORATORYCLIA [id number] [address] Lymphocytes/100 WBC (Bld) 27.9 % Normal [facility] Comment on above: Order Comment: Speci men Type: BLOOD SPECIMENOrdering Facility: [facility] Address: [address] [place] [address] Performed By: #### 5 7021-8 ####[facility] LABORATORYCLIA [id number] [address] [place] MCH (RBC) [Entitic mass] 37.1 pg High 26.0-34.0 [facility] Comment on above: Order Comment: Speci men Type: BLOOD SPECIMENOrdering Facility: [facility] Address: [address] [place] [address] Performed By: #### 5 7021-8 ####[facility] LABORATORYCLIA [id number] [address] [place] MCHC (RBC) [Mass/Vol] 32.7 g/dL Normal 30.5-36.0 [facility] Comment on above: Order Comment: Speci men Type: BLOOD SPECIMENOrdering Facility: [facility] Address: [facility] [place] [place] [address] Performed By: #### 5 7021-8 ####[facility] LABORATORYCLIA [id number] [address] [place] MCV (RBC) [Entitic vol] 113.5 fL High 80.0-100.0 [facility] Comment on above: Order Comment: Speci men Type: BLOOD SPECIMENOrdering Facility: [facility] Address: [address] [place] [address] Performed By: #### 5 7021-8 ####[facility] LABORATORYCLIA [id number] [address] [place] Monocytes (Bld) [#/Vol] 0.29 10*3/uL Normal <0.87 [facility] Comment on above: Order Comment: Speci men Type: BLOOD SPECIMENOrdering Facility: [facility] Address: [address] [place] [address] Performed By: #### 5 7021-8 ####[facility] LABORATORYCLIA [id number] [address] [place] Monocytes/100 WBC (Bld) 5.8 % Normal [facility] Comment on above: Order Comment: Speci men Type: BLOOD SPECIMENOrdering Facility: [facility] Address: [address] [place] [address] Performed By: #### 5 7021-8 ####[facility] LABORATORYCLIA [id number] [address] [place] Neutrophils (Bld) [#/Vol] 3.26 10*3/uL Normal 1.45-7.50 [facility] Comment on above: Order Comment: Speci men Type: BLOOD SPECIMENOrdering Facility: [facility] Address: [address] [place] [address] Performed By: #### 5 7021-8 ####[facility] LABORATORYCLIA [id number] [address] [place] Neutrophils/100 WBC (Bld) 65.5 % Normal [facility] Comment on above: Order Comment: Speci men Type: BLOOD SPECIMENOrdering Facility: [facility] Address: [address] [place] [address] Performed By: #### 5 7021-8 ####[facility] LABORATORYCLIA [id number] [address] [place] Nucleated RBC (Bld) [#/Vol] 0.06 10*3/uL High <0.01 [facility] Comment on above: Order Comment: Speci men Type: BLOOD SPECIMENOrdering Facility: [facility] Address: [address] [place] [address] Performed By: #### 5 7021-8 ####[facility] LABORATORYCLIA [id number] [address] [place] Nucleated RBC/100 WBC (Bld) [Ratio] 1.2 /100 WBC Normal [facility] Comment on above: Order Comment: Speci men Type: BLOOD SPECIMENOrdering Facility: [facility] Address: [address] [place] [address] Performed By: #### 5 7021-8 ####[facility] LABORATORYCLIA [id number] [address] [place] Platelet mean volume (Bld) [Entitic vol] 11.9 fL Normal 9.0-12.7 [facility] Comment on above: Order Comment: Speci men Type: BLOOD SPECIMENOrdering Facility: [facility] Address: [address] [place] [address] Performed By: #### 5 7021-8 ####[facility] LABORATORYCLIA [id number] [place] [address] [place] Platelets (Bld) [#/Vol] 133 10*3/uL Low 150-400 [facility] Comment on above: Order Comment: Speci men Type: BLOOD SPECIMENOrdering Facility: [facility] Address: [address] [place] [address] Performed By: #### 5 7021-8 ####[facility] LABORATORYCLIA [id number] [address] OF [facility] RBC (Bld) [#/Vol] 2.29 10*6/uL Low 4.20-6.00 [facility] Comment on above: Order Comment: Speci men Type: BLOOD SPECIMENOrdering Facility: [facility] Address: [address] [place] [address] Performed By: #### 5 7021-8 ####[facility] LABORATORYCLIA [id number] [address] WBC (Bld) [#/Vol] 4.98 10*3/uL Normal 3.70-11.00 [facility] Comment on above: Order Comment: Speci men Type: BLOOD SPECIMENOrdering Facility: [facility] Address: [address] [place] [address] Performed By: #### 5 7021-8 ####[facility] LABORATORYCLIA [id number] [address] OF [facility] CNOVon 01-10-2024 CNOV Normal [facility] Comprehensive metabolic 2000 panelon 01-10-2024 Albumin [Mass/Vol] 4.0 g/dL 3.9 - 4.9 g/dL [facility] ALP [Catalytic activity/Vol] 73 U/L 38 - 113 U/L [facility] ALT With P-5'-P [Catalytic activity/Vol] 13 U/L 10 - 54 U/L [facility] Anion gap [Moles/Vol] 15 mmol/L 8 - 15 mmol/L [facility] AST With P-5'-P [Catalytic activity/Vol] 15 U/L 14 - 40 U/L [facility] Bilirubin [Mass/Vol] 0.2 mg/dL 0.2 - 1 .3 mg/dL [facility] Calcium [Mass/Vol] 9.2 mg/dL 8.5 - 10. 2 mg/dL [facility] Chloride [Moles/Vol] 103 mmol/L 98 - 10 7 mmol/L [facility] CO2 [Moles/Vol] 20 mmol/L Low 22 - 30 mmol/L [facility] Creatinine [Mass/Vol] 0.98 mg/dL 0.73 - 1.22 mg/dL [facility] GFR/1.73 sq M.predicted among non-blacks MDRD (S/P/Bld) [Vol rate/Area] 78 mL/min/{1.73_m2} - PINF [facility] Comment on above: Estimated Glomerular Filtration Rate (eGFR) is calculated using the 2020 CKD-EPI creatinine equation. This equation utilizes serum creatinine, sex, and age as parameters. The creatinine assay has traceable calibration to isotope dilution-mass spectrometry. Refer to KDIGO guidelines for clinical interpretation. In patients with unstable renal function, e.g. those with acute kidney injury, the eGFR may not accurately reflect actual GFR. Glucose [Mass/Vol] 280 mg/dL High 74 - 99 mg/dL [facility] Comment on above: The [place] Di[employer] (ADA) provides guidance for cutoff values for fasting glucose and random glucose. The ADA defines fasting as no caloric intake for at least 8 hours. Fasting plasma glucose results between 100 to 125 mg/dL indicate increased risk for diabetes (prediabetes). Fasting plasma glucose results greater than or equal to 126 mg/dL meet the criteria for diagnosis of diabetes. In the absence of unequivocal hyperglycemia, results should be confirmed by repeat testing. In a patient with classic symptoms of hyperglycemia or hyperglycemic crisis, random plasma glucose results greater than or equal to 200 mg/dL meet the criteria for diagnosis of diabetes. Reference: Standards of Medical Care in Diabetes 2016, [place] [employer]. Diabetes Care. 2016.39(Suppl 1). Potassium [Moles/Vol] 4.4 mmol/L 3.7 - 5.1 mmol/L [facility] Protein [Mass/Vol] 6.6 g/dL 6.3 - 8.0 g/dL [facility] Sodium [Moles/Vol] 138 mmol/L 136 - 144 mmol/L [facility] Urea nitrogen [Mass/Vol] 21 mg/dL 9 - 24 mg/dL [facility] Albumin [Mass/Vol] 4.0 g/dL Normal 3.9-4.9 [facility] Comment on above: Order Comment: Speci lindsey Type: BLOOD SPECIMENOrdering Facility: [facility] Address: [address] [place] [address] Performed By: #### 5 0190-8, 2276-4, 94239-8, 58723-6 ####[facility] LABORATORYCLIA [id number] [place] [address] [place] ALP [Catalytic activity/Vol] 73 U/L Normal 38-113 [facility] Comment on above: Order Comment: Speci men Type: BLOOD SPECIMENOrdering Facility: [facility] Address: [address] [place] [address] Performed By: #### 5 0190-8, 2276-4, 28613-1, 36603-1 ####[facility] LABORATORYCLIA [id number] [place] [id number] [place] ALT With P-5'-P [Catalytic activity/Vol] 13 U/L Normal 10-54 [facility] Comment on above: Order Comment: Speci men Type: BLOOD SPECIMENOrdering Facility: [facility] Address: [address] [place] [address] Performed By: #### 5 0190-8, 6-4, 40181-3, 13363-1 ####[facility] LABORATORYCLIA [id number] [place] [id number] [place] [facility] Anion gap [Moles/Vol] 15 mmol/L Normal 8-15 [facility] Comment on above: Order Comment: Speci men Type: BLOOD SPECIMENOrdering Facility: [facility] Address: [address] [place] [address] Performed By: #### 5 0190-8, 6-4, 80879-7, 71140-7 ####[facility] LABORATORYCLIA [id number] [place] [id number] [place] [facility] AST With P-5'-P [Catalytic activity/Vol] 15 U/L Normal 14-40 [facility] Comment on above: Order Comment: Speci men Type: BLOOD SPECIMENOrdering Facility: [facility] Address: [address] [place] [address] Performed By: #### 5 0190-8, 2276-4, 68365-5, 49476-0 ####[facility] LABORATORYCLIA [id number] [place] [address] [place] Bilirubin [Mass/Vol] 0.2 mg/dL Normal 0.2-1.3 [facility] Comment on above: Order Comment: Speci men Type: BLOOD SPECIMENOrdering Facility: [facility] Address: [address] [place] [address] Performed By: #### 5 0190-8, 6-4, 99495-0, 06711-1 ####[facility] LABORATORYCLIA [id number] [place] [address] [place] Calcium [Mass/Vol] 9.2 mg/dL Normal 8.5-10.2 [facility] Comment on above: Order Comment: Speci men Type: BLOOD SPECIMENOrdering Facility: [facility] Address: [address] [place] [address] Performed By: #### 5 0190-8, 6-4, 41280-9, 33027-4 ####[facility] LABORATORYCLIA [id number] [place] [address] [place] Chloride [Moles/Vol] 103 mmol/L Normal 98-107 [facility] Comment on above: Order Comment: Speci men Type: BLOOD SPECIMENOrdering Facility: [facility] Address: [address] [place] [address] Performed By: #### 5 0190-8, 2275-4, 70588-8, 27028-6 ####[facility] LABORATORYCLIA [id number] [place] [address] [place] CO2 [Moles/Vol] 20 mmol/L Low 22-30 [facility] Comment on above: Order Comment: Speci men Type: BLOOD SPECIMENOrdering Facility: [facility] Address: [address] [place] [address] Performed By: #### 5 0190-8, 2275-4, 59428-7, 84295-6 ####[facility] LABORATORYCLIA [id number] [place] [address] [place] Creatinine [Mass/Vol] 0.98 mg/dL Normal 0.73-1.22 [facility] Comment on above: Order Comment: Mathew portillo Type: BLOOD SPECIMENOrdering Facility: [facility] Address: [address] [place] [address] Performed By: #### 5 0190-8, 2276-4, 90481-2, 22517-3 ####[facility]CL[facility] [id number] [address] [place] Creatinine and Glomerular filtration rate.predicted panel (S/P/Bld) 78 mL/min/1.73m??? Normal >=60 [facility] Comment on above: Order Comment: Mathew portillo Type: BLOOD SPECIMENOrdering Facility: [facility] Address: [address] [place] [address] Result Comment: Sharon mated Glomerular Filtration Rate (eGFR) is calculated using the 2020 CKD-EPI creatinine equation. This equation utilizes serum creatinine, sex, and age as parameters. The creatinine assay has traceable calibration to isotope dilution-mass spectrometry. Refer to KDIGO guidelines for clinical interpretation. In patients with unstable renal function, e.g. those with acute kidney injury, the eGFR may not accurately reflect actual GFR. Performed By: #### 5 0190-8, 2276-4, 50859-3, 19134-0 ####[facility] LABORATORYCLIA [id number] [place] [address] [place] Glucose [Mass/Vol] 280 mg/dL High 74-99 [facility] Comment on above: Order Comment: Mathew lindsey Type: BLOOD SPECIMENOrdering Facility: [facility] Address: [address] [place] [address] Result Comment: The [place] Diabetes [employer] (ADA) provides guidance for cutoff values for fasting glucose and random glucose. The ADA defines fasting as no caloric intake for at least 8 hours. Fasting plasma glucose results between 100 to 125 mg/dL indicate increased risk for diabetes (prediabetes).Fasting plasma glucose results greater than or equal to 126 mg/dL meet the criteria for diagnosis of diabetes. In the absence of unequivocal hyperglycemia, results should be confirmed by repeat testing. In a patient with classic symptoms of hyperglycemia or hyperglycemic crisis, random plasma glucose results greater than or equal to 200 mg/dL meet the criteria for diagnosis of diabetes.Reference: Standards of Medical Care in Diabetes 2016, [employer] [place] [employer]. Diabetes Care. 2016.39(Suppl 1). Performed By: #### 5 0190-8, 2276-4, 27521-0, 29786-4 ####[facility] LABORATORYCLIA [id number] [place] [address] [place] Potassium [Moles/Vol] 4.4 mmol/L Normal 3.7-5.1 [facility] Comment on above: Order Comment: Speci men Type: BLOOD SPECIMENOrdering Facility: [facility] Address: [address] [place] [address] Performed By: #### 5 0190-8, 2276-4, 94281-7, 31499-2 ####[facility] LABORATORYCLIA [id number] [place] [id number] [place] Protein [Mass/Vol] 6.6 g/dL Normal 6.3-8.0 [facility] Comment on above: Order Comment: Speci men Type: BLOOD SPECIMENOrdering Facility: [facility] Address: [address] [place] [address] Performed By: #### 5 0190-8, 6-4, 32795-8, 85751-6 ####[facility] LABORATORYCLIA [id number] [place] [address] [place] Sodium [Moles/Vol] 138 mmol/L Normal 136-144 [facility] Comment on above: Order Comment: Speci men Type: BLOOD SPECIMENOrdering Facility: [facility] Address: [address] [place] [address] Performed By: #### 5 0190-8, 6-4, 37746-6, 94869-6 ####[facility] LABORATORYCLIA [id number] [place] [address] [place] Urea nitrogen [Mass/Vol] 21 mg/dL Normal 9-24 [facility] Comment on above: Order Comment: Speci men Type: BLOOD SPECIMENOrdering Facility: [facility] Address: [address] [place] [address] Performed By: #### 5 0190-8, 2275-4, 94946-0, 52154-3 ####[facility] LABORATORYCLIA [id number] [place] [address] [place] FERRITINon 01-10-2024 Ferritin [Mass/Vol] 1130.0 ng/mL High 30.3 - 5 65.7 ng/mL [facility] Ferritin SerPl-mCncon 2023 Ferritin [Mass/Vol] 1130.0 ng/mL High 30.3-565.7 [facility] Comment on above: Order Comment: Speci men Type: BLOOD SPECIMENOrdering Facility: [facility] Address: [address] [place] [address] Performed By: #### 5 0190-8, 6-4, 61094-4, 46635-1 ####[facility] LABORATORYCLIA [id number] [place] [address] [place] Ferritin [Mass/Vol]on 2023 Interpretation and review of laboratory results Abnormal [facility] Iron and Iron binding capaci ty panelon 01-10-2024 Iron [Mass/Vol] 225 ug/dL High 41 - 186 ug/dL [facility] Iron binding capacity [Mass/Vol] 244 ug/dL 232 - 386 ug/dL [facility] Iron saturation [Mass fraction] 92.2 % High 15.0 - 57.0 % [facility] Iron [Mass/Vol] 225 ug/dL High 41-186 [facility] Comment on above: Order Comment: Speci men Type: BLOOD SPECIMENOrdering Facility: [facility] Address: [address] [place] [address] Performed By: #### 5 0190-8, 6-4, 90918-2, 27768-8 ####[facility] LABORATORYCLIA [id number] [place] [id number] [place] Iron binding capacity [Mass/Vol] 244 ug/dL Normal 232-386 [facility] Comment on above: Order Comment: Speci men Type: BLOOD SPECIMENOrdering Facility: [facility] Address: [address] [place] [address] Performed By: #### 5 0190-8, 2276-4, 20315-3, 86777-3 ####[facility] LABORATORYCLIA [id number] [place] [address] [facility] Iron saturation [Mass fraction] 92.2 % High 15.0-57.0 [facility] Comment on above: Order Comment: Speci men Type: BLOOD SPECIMENOrdering Facility: [facility] Address: [address] [place] [address] Performed By: #### 5 0190-8, 2276-4, 99252-4, 35155-8 ####[facility] LABORATORYCLIA [id number] [place] [id number] [facility] No Panel Informationon 01-09 Interpretation and review of laboratory results Abnormal [facility] TYPE + SCREENon 01-10-2024 ABO B Normal [facility] Comment on above: Order Comment: Speci men Type: BLOOD SPECIMENOrdering Facility: [facility] Address: [address] [place] [address] Performed By: #### T SCR ####[facility] BLOOD BANKCLIA [id number] [address] STATES [facility] Rh Nom (Bld) Positive Normal [facility] Comment on above: Order Comment: Speci men Type: BLOOD SPECIMENOrdering Facility: [facility] Address: [address] [place] [address] Performed By: #### T SCR ####[facility] BLOOD BANKCLIA [id number] [address] TYPE AND SCREEN EXPIRATION 01/13/2024 23:59 Normal [facility] Comment on above: Order Comment: Speci men Type: BLOOD SPECIMENOrdering Facility: [facility] Address: [address] [place] [address] Performed By: #### T SCR ####[facility] BLOOD BANKCLIA [id number] [place] [id number] [place] ABO group Nom (Bld) B [facility] Blood group antibody screen Ql Negative [facility] Rh Nom (Bld) Positive [facility] Type and Screen Expiration 01/13/2024 23:59 [facility] CBC W Auto Differential pane l (Bld)on 12-31-2023 Basophils (Bld) [#/Vol] [facility] Basophils/100 WBC (Bld) 0.3 % [facility] Differential cell count method Nom (Bld) Auto [facility] Eosinophils (Bld) [#/Vol] [facility] Eosinophils/100 WBC (Bld) 0.3 % [facility] Erythrocyte distribution width (RBC) [Ratio] 20.8 % High 11.5 - 15.0 % [facility] Hematocrit (Bld) [Volume fraction] 27.6 % Low 39.0 - 51.0 % [facility] Hemoglobin (Bld) [Mass/Vol] 8.8 g/dL Low 13.0 - 17.0 g/dL [facility] Immature granulocytes (Bld) [#/Vol] 0.05 10*3/uL [facility] Immature granulocytes/100 WBC (Bld) 0.9 % [facility] Interpretation and review of laboratory results Abnormal [facility] Lymphocytes (Bld) [#/Vol] 1.70 10*3/uL [facility] Lymphocytes/100 WBC (Bld) 29.4 % [facility] MCH (RBC) [Entitic mass] 36.5 pg High 26.0 - 34.0 pg [facility] MCHC (RBC) [Mass/Vol] 31.9 g/dL 30.5 - 36.0 g/dL [facility] MCV (RBC) [Entitic vol] 114.5 fL High 80.0 - 100.0 fL [facility] Monocytes (Bld) [#/Vol] 0.33 10*3/uL [facility] Monocytes/100 WBC (Bld) 5.7 % [facility] Neutrophils (Bld) [#/Vol] 3.67 10*3/uL [facility] Neutrophils/100 WBC (Bld) 63.4 % [facility] Nucleated RBC (Bld) [#/Vol] 0.06 10*3/uL High [facility] Nucleated RBC/100 WBC (Bld) [Ratio] 1.0 % /100 WBC [facility] Platelet mean volume (Bld) [Entitic vol] 11.8 fL 9.0 - 12.7 fL [facility] Platelets (Bld) [#/Vol] 123 10*3/uL Low [facility] RBC (Bld) [#/Vol] 2.41 10*6/uL Low 4.20 - 6.0 0 m/uL [facility] WBC (Bld) [#/Vol] 5.79 10*3/uL [facility] Basophils (Bld) [#/Vol] 10*3/uL Normal <0.11 [facility] Comment on above: Order Comment: Speci men Type: BLOOD SPECIMENOrdering Facility: [facility] Address: [address] [place] [address] Performed By: #### 5 7021-8 ####[facility] LABORATORYCLIA [id number] [address] [place] Basophils/100 WBC (Bld) 0.3 % Normal [facility] Comment on above: Order Comment: Speci men Type: BLOOD SPECIMENOrdering Facility: [facility] Address: [address] [place] [address] Performed By: #### 5 7021-8 ####[facility] LABORATORYCLIA [id number] [address] [place] Differential cell count method Nom (Bld) Auto Normal [facility] Comment on above: Order Comment: Speci men Type: BLOOD SPECIMENOrdering Facility: [facility] Address: [address] [place] [address] Performed By: #### 5 7021-8 ####[facility] LABORATORYCLIA [id number] [place] [address] [place] Eosinophils (Bld) [#/Vol] 10*3/uL Normal <0.46 [facility] Comment on above: Order Comment: Speci men Type: BLOOD SPECIMENOrdering Facility: [facility] Address: [address] [place] [address] Performed By: #### 5 7021-8 ####[facility] LABORATORYCLIA [id number] [place] [address] [place] Eosinophils/100 WBC (Bld) 0.3 % Normal [facility] Comment on above: Order Comment: Speci men Type: BLOOD SPECIMENOrdering Facility: [facility] Address: [facility] [place] [place] [address] Performed By: #### 5 7021-8 ####[facility] LABORATORYCLIA [id number] [address] [place] Erythrocyte distribution width (RBC) [Ratio] 20.8 % High 11.5-15.0 [facility] Comment on above: Order Comment: Speci men Type: BLOOD SPECIMENOrdering Facility: [facility] Address: [address] [place] [address] Performed By: #### 5 7021-8 ####[facility] LABORATORYCLIA [id number] [address] [place] Hematocrit (Bld) [Volume fraction] 27.6 % Low 39.0-51.0 [facility] Comment on above: Order Comment: Speci men Type: BLOOD SPECIMENOrdering Facility: [facility] Address: [address] [place] [address] Performed By: #### 5 7021-8 ####[facility] LABORATORYCLIA [id number] [address] [place] Hemoglobin (Bld) [Mass/Vol] 8.8 g/dL Low 13.0-17.0 [facility] Comment on above: Order Comment: Speci men Type: BLOOD SPECIMENOrdering Facility: [facility] Address: [address] [place] [address] Performed By: #### 5 7021-8 ####[facility] LABORATORYCLIA [id number] [address] [place] Immature granulocytes (Bld) [#/Vol] 0.05 10*3/uL Normal <0.10 [facility] Comment on above: Order Comment: Speci men Type: BLOOD SPECIMENOrdering Facility: [facility] Address: [address] [place] [address] Performed By: #### 5 7021-8 ####[facility] LABORATORYCLIA [id number] [address] [place] Immature granulocytes/100 WBC (Bld) 0.9 % Normal [facility] Comment on above: Order Comment: Speci men Type: BLOOD SPECIMENOrdering Facility: [facility] Address: [address] [place] [address] Performed By: #### 5 7021-8 ####[facility] LABORATORYCLIA [id number] [place] [address] [place] Lymphocytes (Bld) [#/Vol] 1.70 10*3/uL Normal 1.00-4.00 [facility] Comment on above: Order Comment: Speci men Type: BLOOD SPECIMENOrdering Facility: [facility] Address: [address] [place] [address] Performed By: #### 5 7021-8 ####[facility] LABORATORYCLIA [id number] [address] Lymphocytes/100 WBC (Bld) 29.4 % Normal [facility] Comment on above: Order Comment: Speci men Type: BLOOD SPECIMENOrdering Facility: [facility] Address: [address] [place] [address] Performed By: #### 5 7021-8 ####[facility] LABORATORYCLIA [id number] [address] [place] MCH (RBC) [Entitic mass] 36.5 pg High 26.0-34.0 [facility] Comment on above: Order Comment: Speci men Type: BLOOD SPECIMENOrdering Facility: [facility] Address: [address] [place] [address] Performed By: #### 5 7021-8 ####[facility] LABORATORYCLIA [id number] [address] [place] MCHC (RBC) [Mass/Vol] 31.9 g/dL Normal 30.5-36.0 [facility] Comment on above: Order Comment: Speci men Type: BLOOD SPECIMENOrdering Facility: [facility] Address: [address] [place] [address] Performed By: #### 5 7021-8 ####[facility] LABORATORYCLIA [id number] [place] [address] [place] MCV (RBC) [Entitic vol] 114.5 fL High 80.0-100.0 [facility] Comment on above: Order Comment: Speci men Type: BLOOD SPECIMENOrdering Facility: [facility] Address: [address] [place] [address] Performed By: #### 5 7021-8 ####[facility] LABORATORYCLIA [id number] [place] [address] [place] Monocytes (Bld) [#/Vol] 0.33 10*3/uL Normal <0.87 [facility] Comment on above: Order Comment: Speci men Type: BLOOD SPECIMENOrdering Facility: [facility] Address: [address] [place] [address] Performed By: #### 5 7021-8 ####[facility] LABORATORYCLIA [id number] [address] [place] Monocytes/100 WBC (Bld) 5.7 % Normal [facility] Comment on above: Order Comment: Speci men Type: BLOOD SPECIMENOrdering Facility: [facility] Address: [address] [place] [address] Performed By: #### 5 7021-8 ####[facility] LABORATORYCLIA [id number] [place] [address] [place] Neutrophils (Bld) [#/Vol] 3.67 10*3/uL Normal 1.45-7.50 [facility] Comment on above: Order Comment: Speci men Type: BLOOD SPECIMENOrdering Facility: [facility] Address: [address] [place] [address] Performed By: #### 5 7021-8 ####[facility] LABORATORYCLIA [id number] [address] [place] Neutrophils/100 WBC (Bld) 63.4 % Normal [facility] Comment on above: Order Comment: Speci men Type: BLOOD SPECIMENOrdering Facility: [facility] Address: [facility] [place] [address] Performed By: #### 5 7021-8 ####[facility] LABORATORYCLIA [id number] [address] [place] Nucleated RBC (Bld) [#/Vol] 0.06 10*3/uL High <0.01 [facility] Comment on above: Order Comment: Speci men Type: BLOOD SPECIMENOrdering Facility: [facility] Address: [address] [place] [address] Performed By: #### 5 7021-8 ####[facility] LABORATORYCLIA [id number] [address] [place] Nucleated RBC/100 WBC (Bld) [Ratio] 1.0 /100 WBC Normal [facility] Comment on above: Order Comment: Speci men Type: BLOOD SPECIMENOrdering Facility: [facility] Address: [address] [place] [address] Performed By: #### 5 7021-8 ####[facility] LABORATORYCLIA [id number] [place] [address] [place] Platelet mean volume (Bld) [Entitic vol] 11.8 fL Normal 9.0-12.7 [facility] Comment on above: Order Comment: Speci men Type: BLOOD SPECIMENOrdering Facility: [facility] Address: [address] [place] [address] Performed By: #### 5 7021-8 ####[facility] LABORATORYCLIA [id number] [place] [address] [place] Platelets (Bld) [#/Vol] 123 10*3/uL Low 150-400 [facility] Comment on above: Order Comment: Speci men Type: BLOOD SPECIMENOrdering Facility: [facility] Address: [address] [place] [address] Performed By: #### 5 7021-8 ####[facility] LABORATORYCLIA [id number] [place] [address] [place] RBC (Bld) [#/Vol] 2.41 10*6/uL Low 4.20-6.00 [facility] Comment on above: Order Comment: Speci men Type: BLOOD SPECIMENOrdering Facility: [facility] Address: [address] [place] [address] Performed By: #### 5 7021-8 ####[facility] LABORATORYCLIA [id number] [address] WBC (Bld) [#/Vol] 5.79 10*3/uL Normal 3.70-11.00 [facility] Comment on above: Order Comment: Speci men Type: BLOOD SPECIMENOrdering Facility: [facility] Address: [address] [place] [address] Performed By: #### 5 7021-8 ####[facility] LABORATORYCLIA [id number] [address] CNOVSPon 12-31-2023 CNOVSP Normal [facility] Comprehensive metabolic 2000 panelon 12-31-2023 Albumin [Mass/Vol] 4.1 g/dL 3.9 - 4.9 g/dL [facility] ALP [Catalytic activity/Vol] 61 U/L 38 - 113 U/L [facility] ALT With P-5'-P [Catalytic activity/Vol] 12 U/L 10 - 54 U/L [facility] Anion gap [Moles/Vol] 11 mmol/L 8 - 15 mmol/L [facility] AST With P-5'-P [Catalytic activity/Vol] 15 U/L 14 - 40 U/L [facility] Bilirubin [Mass/Vol] 0.3 mg/dL 0.2 - 1 .3 mg/dL [facility] Calcium [Mass/Vol] 9.3 mg/dL 8.5 - 10. 2 mg/dL [facility] Chloride [Moles/Vol] 105 mmol/L 98 - 10 7 mmol/L [facility] CO2 [Moles/Vol] 22 mmol/L 22 - 30 mmol/L [facility] Creatinine [Mass/Vol] 0.99 mg/dL 0.73 - 1.22 mg/dL [facility] GFR/1.73 sq M.predicted among non-blacks MDRD (S/P/Bld) [Vol rate/Area] 77 mL/min/{1.73_m2} - PINF [facility] Comment on above: Estimated Glomerular Filtration Rate (eGFR) is calculated using the 2020 CKD-EPI creatinine equation. This equation utilizes serum creatinine, sex, and age as parameters. The creatinine assay has traceable calibration to isotope dilution-mass spectrometry. Refer to KDIGO guidelines for clinical interpretation. In patients with unstable renal function, e.g. those with acute kidney injury, the eGFR may not accurately reflect actual GFR. Glucose [Mass/Vol] 179 mg/dL High 74 - 99 mg/dL [facility] Comment on above: The [place] Di[employer] (ADA) provides guidance for cutoff values for fasting glucose and random glucose. The ADA defines fasting as no caloric intake for at least 8 hours. Fasting plasma glucose results between 100 to 125 mg/dL indicate increased risk for diabetes (prediabetes). Fasting plasma glucose results greater than or equal to 126 mg/dL meet the criteria for diagnosis of diabetes. In the absence of unequivocal hyperglycemia, results should be confirmed by repeat testing. In a patient with classic symptoms of hyperglycemia or hyperglycemic crisis, random plasma glucose results greater than or equal to 200 mg/dL meet the criteria for diagnosis of diabetes. Reference: Standards of Medical Care in Diabetes 2016, [place] [employer]. Diabetes Care. 2016.39(Suppl 1). Interpretation and review of laboratory results Abnormal [facility] Potassium [Moles/Vol] 4.3 mmol/L 3.7 - 5.1 mmol/L [facility] Protein [Mass/Vol] 6.8 g/dL 6.3 - 8.0 g/dL [facility] Sodium [Moles/Vol] 138 mmol/L 136 - 144 mmol/L [facility] Urea nitrogen [Mass/Vol] 17 mg/dL 9 - 24 mg/dL [facility] Albumin [Mass/Vol] 4.1 g/dL Normal 3.9-4.9 [facility] Comment on above: Order Comment: Speci men Type: BLOOD SPECIMENOrdering Facility: [facility] Address: [address] [place] [address] Performed By: #### 2 4323-8 ####[facility] LABORATORYCLIA [id number] [place] [address] [place] ALP [Catalytic activity/Vol] 61 U/L Normal 38-113 [facility] Comment on above: Order Comment: Speci men Type: BLOOD SPECIMENOrdering Facility: [facility] Address: [address] [place] [address] Performed By: #### 2 4323-8 ####[facility] LABORATORYCLIA [id number] [address] STATES OF [facility] ALT With P-5'-P [Catalytic activity/Vol] 12 U/L Normal 10-54 [facility] Comment on above: Order Comment: Speci men Type: BLOOD SPECIMENOrdering Facility: [facility] Address: [address] [place] [address] Performed By: #### 2 4323-8 ####[facility] LABORATORYCLIA [id number] [address] Anion gap [Moles/Vol] 11 mmol/L Normal 8-15 [facility] Comment on above: Order Comment: Speci men Type: BLOOD SPECIMENOrdering Facility: [facility] Address: [address] [place] [address] Performed By: #### 2 4323-8 ####[facility] LABORATORYCLIA [id number] [address] AST With P-5'-P [Catalytic activity/Vol] 15 U/L Normal 14-40 [facility] Comment on above: Order Comment: Speci men Type: BLOOD SPECIMENOrdering Facility: [facility] Address: [address] [place] [address] Performed By: #### 2 4323-8 ####[facility] LABORATORYCLIA [id number] [address] [place] Bilirubin [Mass/Vol] 0.3 mg/dL Normal 0.2-1.3 [facility] Comment on above: Order Comment: Speci men Type: BLOOD SPECIMENOrdering Facility: [facility] Address: [address] [place] [address] Performed By: #### 2 4323-8 ####[facility] LABORATORYCLIA [id number] [place] [address] [place] Calcium [Mass/Vol] 9.3 mg/dL Normal 8.5-10.2 [facility] Comment on above: Order Comment: Speci men Type: BLOOD SPECIMENOrdering Facility: [facility] Address: [address] [place] [address] Performed By: #### 2 4323-8 ####[facility] LABORATORYCLIA [id number] [place] [address] [place] Chloride [Moles/Vol] 105 mmol/L Normal 98-107 [facility] Comment on above: Order Comment: Speci men Type: BLOOD SPECIMENOrdering Facility: [facility] Address: [address] [place] [address] Performed By: #### 2 4323-8 ####[facility] LABORATORYCLIA [id number] [address] [place] CO2 [Moles/Vol] 22 mmol/L Normal 22-30 [facility] Comment on above: Order Comment: Speci men Type: BLOOD SPECIMENOrdering Facility: [facility] Address: [address] [place] [address] Performed By: #### 2 4323-8 ####[facility] LABORATORYCLIA [id number] [place] [address] [place] Creatinine [Mass/Vol] 0.99 mg/dL Normal 0.73-1.22 [facility] Comment on above: Order Comment: Speci men Type: BLOOD SPECIMENOrdering Facility: [facility] Address: [address] [place] [address] Performed By: #### 2 4323-8 ####[facility] LABORATORYCLIA [id number] [address] Creatinine and Glomerular filtration rate.predicted panel (S/P/Bld) 77 mL/min/1.73m??? Normal >=60 [facility] Comment on above: Order Comment: Speci men Type: BLOOD SPECIMENOrdering Facility: [facility] Address: [address] [place] [address] Result Comment: Sharon mated Glomerular Filtration Rate (eGFR) is calculated using the 2020 CKD-EPI creatinine equation. This equation utilizes serum creatinine, sex, and age as parameters. The creatinine assay has traceable calibration to isotope dilution-mass spectrometry. Refer to KDIGO guidelines for clinical interpretation. In patients with unstable renal function, e.g. those with acute kidney injury, the eGFR may not accurately reflect actual GFR. Performed By: #### 2 4323-8 ####[facility] LABORATORYCLIA [id number] [place] [address] [place] Glucose [Mass/Vol] 179 mg/dL High 74-99 [facility] Comment on above: Order Comment: Mathew portillo Type: BLOOD SPECIMENOrdering Facility: [facility] Address: [address] [place] [address] Result Comment: The [place] [employer] (ADA) provides guidance for cutoff values for fasting glucose and random glucose. The ADA defines fasting as no caloric intake for at least 8 hours. Fasting plasma glucose results between 100 to 125 mg/dL indicate increased risk for diabetes (prediabetes).Fasting plasma glucose results greater than or equal to 126 mg/dL meet the criteria for diagnosis of diabetes. In the absence of unequivocal hyperglycemia, results should be confirmed by repeat testing. In a patient with classic symptoms of hyperglycemia or hyperglycemic crisis, random plasma glucose results greater than or equal to 200 mg/dL meet the criteria for diagnosis of diabetes.Reference: Standards of Medical Care in Diabetes 2016, [employer] [place] [employer]. Diabetes Care. 2016.39(Suppl 1). Performed By: #### 2 4323-8 ####[facility] LABORATORYCLIA [id number] [place] [id number] [place] Potassium [Moles/Vol] 4.3 mmol/L Normal 3.7-5.1 [facility] Comment on above: Order Comment: Mathew portillo Type: BLOOD SPECIMENOrdering Facility: [facility] Address: [address] [place] [id number] Performed By: #### 2 4323-8 ####[facility] LABORATORYCLIA [id number] [place] [address] [place] Protein [Mass/Vol] 6.8 g/dL Normal 6.3-8.0 [facility] Comment on above: Order Comment: Speci men Type: BLOOD SPECIMENOrdering Facility: [facility] Address: [address] [place] [address] Performed By: #### 2 4323-8 ####[facility] LABORATORYCLIA [id number] [place] [id number] [place] Sodium [Moles/Vol] 138 mmol/L Normal 136-144 [facility] Comment on above: Order Comment: Speci men Type: BLOOD SPECIMENOrdering Facility: [facility] Address: [address] [place] [address] Performed By: #### 2 4323-8 ####[facility] LABORATORYCLIA [id number] [place] [id number] [place] Urea nitrogen [Mass/Vol] 17 mg/dL Normal 9-24 [facility] Comment on above: Order Comment: Speci men Type: BLOOD SPECIMENOrdering Facility: [facility] Address: [address] [place] [address] Performed By: #### 2 4323-8 ####[facility] LABORATORYCLIA [id number] [place] [address] [place] Endocrinology Visit Reporton 12-31-2023 Endocrinology Visit Report [facility] [address] [place] [id number] OFFICE VISIT Date of Service: 12/31/23 MR#: [id number] Acct: [id number] Name: JOSS OROPEZA Lesly Rep #: [id number] : 1945 Provider: Asha Johnson Age/Sex: 78/M Location: [facility] Status: Signed Intake Vital Signs 08/20/23 14:47 12/31/23 13:32 Height 5 ft 7 in 5 ft 7 in Weight: 216 lb 215 lb BMI 33.8 33.6 BP 146/86 H 145/70 H Blood Pressure Location Lt brachial Rt brachial Position Sitting Sitting Pulse 75 75 Pulse Source Monitor Monitor Pulse Oximetry (%) 95 96 Oxygen Delivery Method room air room air Intake Visit Reasons: 4 M FU Chief Complaint: Diabetes Is patient in pain?: No Allergies cefepime Allergy (Verified 01/29/23 14:38) Rash Medications ???Medication ???Instructions ???Recorded ???Confirmed ???Type aspirin 81 mg chewable tablet 1 tab PO DAILY heart health 07/11/16 12/31/23 History cyanocobalamin (vitamin B-12) 500 500 mcg PO DAILY supplement 07/11/16 12/31/23 History mcg tablet multivitamin 1 tab PO DAILY supplement 07/11/16 12/31/23 History finasteride 5 mg tablet (Proscar) 5 mg PO DAILY prostate 07/10/18 12/31/23 History tamsulosin 0.4 mg capsule 0.4 mg PO DAILY urinary issues 07/10/18 12/31/23 History alendronate 70 mg tablet (Fosamax) 70 mg PO QWEEK started 10/07/18 12/31/23 History 2022 rosuvastatin 10 mg tablet 1 tab PO DAILY 09/05/21 12/31/23 History pen needle, diabetic 32 gauge x #50 ea 08/20/23 12/31/23 Rx 5/32 (BD Ultra-Fine Cristal Pen Needle) glimepiride 4 mg tablet 4 mg PO BID #180 tabs 12/31/23 12/31/23 Rx insulin glargine 100 unit/mL (3 27 unit (0.27 mL) subcut QPM #15 mL 12/31/23 12/31/23 Rx mL) subcutaneous pen (Basaglar KwikPen U-100 Insulin) Have you fallen in the past year?: No PFSH Medical History Macrocytic anemia Obesity Osteoporosis Diabetes Wears glasses Chronic pain TIA (transient ischemic attack) Complaint of melena Vomiting Hiccups Diastasis recti Hepatomegaly Ventral hernia Anemia Testosterone deficiency Lumbar disc disease Diverticulitis Osteoarthritis Hyperlipidemia HTN (hypertension) Enlarged prostate Leukocytosis Lower back pain Herniation of nucleus pulposus DM2 (diabetes mellitus, type 2) Cellulitis Surgical History History of back surgery History of cholecystectomy History of rotator cuff surgery History of colonoscopy ( 2006) Family History Father COPD (chronic obstructive pulmonary disease) Mother Heart disease CHF (congestive heart failure) Other Alcohol abuse Arthritis Blood clot in vein Breast cancer CVA (cerebral vascular accident) Cancer Diabetes Myocardial infarction Skin cancer Thyroid disorder Social History Smoking Status: Never smoker alcohol intake: current alcohol intake frequency: holidays/special occasions only substance use type: does not use what type of physical activity do you participate in: other frequency: other HPI HPI Chief Complaint: Diabetes Details: JOSS OROPEZA, is a 78 M who presents to the office today for follow up. A1C is 7.8% He is taking Basaglar 27 units daily and glimepiride 4 mg bid. He is undergoing treatment for myelodysplasia. He doesn not want to use a CGM. He had one blood sugar of 67, otherwise no lows. He is expecting a lot of family for the holidays. He states he will stop Alendronate in October. He sees podiatry every 9 weeks. ROS Const Constitutional: No fatigue or weight change ENT ENT: No dizziness/vertigo Cardio Cardiology: No chest pain at rest, chest pain with exertion, shortness of breath or palpitations Skin Skin: No wounds Endo Endocrine: No fatigue or weight change Exam Const General: cooperative, healthy appearing, comfortable, no acute distress, well developed and not cushingoid Nutritional Appearance: well nourished Orientation: alert, awake and oriented x3 HENMT Head: normal to inspection Ears: hearing grossly normal bilaterally Nose: external nose normal Mouth: oral mucosae normal Eyes General: appearance normal, both eyes and all related structures Alignment and Position: alignment normal Periorbital: periorbital findings normal Eyelids: eyelids normal Conjunctivae: conjunctivae normal Neck Neck: normal visual inspection Neck mass: No Thyroid: thyroid normal Chest Chest palpation inspection: normal inspection of the chest Resp Effort Inspection: normal respiratory effort, able to speak in complete sente (more content not included)... Normal [facility] CBC W Auto Differential pane l (Bld)on 12-10-2023 Basophils (Bld) [#/Vol] 10*3/uL Normal <0.11 [facility] Comment on above: Order Comment: Speci men Type: BLOOD SPECIMENOrdering Facility: [facility] Address: [address] [place] [address] Performed By: #### 5 7021-8 ####[facility] [place] LABCLIA [id number] [facility] [place] [address] [place] Basophils/100 WBC (Bld) 0.3 % Normal [facility] Comment on above: Order Comment: Speci men Type: BLOOD SPECIMENOrdering Facility: [facility] Address: [address] [place] [address] Performed By: #### 5 7021-8 ####[facility] [place] LABCLIA [id number] [facility] [place] [address] [facility] Differential cell count method Nom (Bld) Auto Normal [facility] Comment on above: Order Comment: Speci men Type: BLOOD SPECIMENOrdering Facility: [facility] Address: [address] [place] [address] Performed By: #### 5 7021-8 ####[facility] [place] LABCLIA [id number] [place] [address] [place] Eosinophils (Bld) [#/Vol] 10*3/uL Normal <0.46 [facility] Comment on above: Order Comment: Speci men Type: BLOOD SPECIMENOrdering Facility: [facility] Address: [address] [place] [address] Performed By: #### 5 7021-8 ####[facility] [place] LABCLIA [id number] [facility] [place] [address] [place] Eosinophils/100 WBC (Bld) 0.3 % Normal [facility] Comment on above: Order Comment: Speci men Type: BLOOD SPECIMENOrdering Facility: [facility] Address: [address] [place] [address] Performed By: #### 5 7021-8 ####[facility] [place] LABCLIA [id number] [facility] [place] [address] [place] Erythrocyte distribution width (RBC) [Ratio] 21.5 % High 11.5-15.0 [facility] Comment on above: Order Comment: Speci men Type: BLOOD SPECIMENOrdering Facility: [facility] Address: [address] [place] [address] Performed By: #### 5 7021-8 ####[facility] [place] LABCLIA [id number] [place] [address] [place] Hematocrit (Bld) [Volume fraction] 27.5 % Low 39.0-51.0 [facility] Comment on above: Order Comment: Speci men Type: BLOOD SPECIMENOrdering Facility: [facility] Address: [address] [place] [address] Performed By: #### 5 7021-8 ####[facility] LABCLIA [id number] [place] [address] [place] Hemoglobin (Bld) [Mass/Vol] 8.9 g/dL Low 13.0-17.0 [facility] Comment on above: Order Comment: Speci men Type: BLOOD SPECIMENOrdering Facility: [facility] Address: [address] [place] [address] Performed By: #### 5 7021-8 ####[facility] LABCLIA [id number] [place] [address] [facility] [place] Immature granulocytes (Bld) [#/Vol] 10*3/uL Normal <0.10 [facility] Comment on above: Order Comment: Speci men Type: BLOOD SPECIMENOrdering Facility: [facility] Address: [address] [place] [address] Performed By: #### 5 7021-8 ####[facility] [place] LABCLIA [id number] [place] [address] [facility] Immature granulocytes/100 WBC (Bld) 0.3 % Normal [facility] Comment on above: Order Comment: Speci men Type: BLOOD SPECIMENOrdering Facility: [facility] Address: [address] [place] [address] Performed By: #### 5 7021-8 ####[facility] LABCLIA [id number] [place] [address] [place] Lymphocytes (Bld) [#/Vol] 1.66 10*3/uL Normal 1.00-4.00 [facility] Comment on above: Order Comment: Speci men Type: BLOOD SPECIMENOrdering Facility: [facility] Address: [address] [place] [address] Performed By: #### 5 7021-8 ####[facility] LABCLIA [id number] [place] [address] [facility] Lymphocytes/100 WBC (Bld) 27.4 % Normal [facility] Comment on above: Order Comment: Speci men Type: BLOOD SPECIMENOrdering Facility: [facility] Address: [address] [place] [address] Performed By: #### 5 7021-8 ####[facility] LABCLIA [id number] [place] [address] [place] MCH (RBC) [Entitic mass] 36.9 pg High 26.0-34.0 [facility] Comment on above: Order Comment: Speci men Type: BLOOD SPECIMENOrdering Facility: [facility] Address: [address] [place] [address] Performed By: #### 5 7021-8 ####[facility] LABCLIA [id number] [place] [address] [place] MCHC (RBC) [Mass/Vol] 32.4 g/dL Normal 30.5-36.0 [facility] Comment on above: Order Comment: Speci men Type: BLOOD SPECIMENOrdering Facility: [facility] Address: [address] [place] [address] Performed By: #### 5 7021-8 ####[facility] LABCLIA [id number] [place] [address] [place] MCV (RBC) [Entitic vol] 114.1 fL High 80.0-100.0 [facility] Comment on above: Order Comment: Speci men Type: BLOOD SPECIMENOrdering Facility: [facility] Address: [address] [place] [address] Performed By: #### 5 7021-8 ####[facility] [place] LABCLIA [id number] [place] [address] [place] Monocytes (Bld) [#/Vol] 0.41 10*3/uL Normal <0.87 [facility] Comment on above: Order Comment: Speci men Type: BLOOD SPECIMENOrdering Facility: [facility] Address: [address] [place] [address] Performed By: #### 5 7021-8 ####[facility] [place] LABCLIA [id number] [place] [address] [facility] [place] Monocytes/100 WBC (Bld) 6.8 % Normal [facility] Comment on above: Order Comment: Speci men Type: BLOOD SPECIMENOrdering Facility: [facility] Address: [address] [place] [address] Performed By: #### 5 7021-8 ####[facility] [place] LABCLIA [id number] [place] [address] [place] Neutrophils (Bld) [#/Vol] 3.93 10*3/uL Normal 1.45-7.50 [facility] Comment on above: Order Comment: Speci men Type: BLOOD SPECIMENOrdering Facility: [facility] Address: [address] [place] [address] Performed By: #### 5 7021-8 ####[facility] [place] LABCLIA [id number] [place] [address] [place] Neutrophils/100 WBC (Bld) 64.9 % Normal [facility] Comment on above: Order Comment: Speci men Type: BLOOD SPECIMENOrdering Facility: [facility] Address: [address] [place] [address] Performed By: #### 5 7021-8 ####[facility] [place] LABCLIA [id number] [place] [address] [place] Nucleated RBC (Bld) [#/Vol] Normal [facility] Comment on above: Order Comment: Speci men Type: BLOOD SPECIMENOrdering Facility: [facility] Address: [address] [place] [address] Performed By: #### 5 7021-8 ####[facility] [place] LABCLIA [id number] [place] [address] [place] Nucleated RBC/100 WBC (Bld) [Ratio] Normal [facility] Comment on above: Order Comment: Speci men Type: BLOOD SPECIMENOrdering Facility: [facility] Address: [address] [place] [address] Performed By: #### 5 7021-8 ####[facility] LABCLIA [id number] [place] [address] [place] Platelet mean volume (Bld) [Entitic vol] 12.0 fL Normal 9.0-12.7 [facility] Comment on above: Order Comment: Speci men Type: BLOOD SPECIMENOrdering Facility: [facility] Address: [address] [place] [address] Performed By: #### 5 7021-8 ####[facility] LABCLIA [id number] [place] [address] [place] Platelets (Bld) [#/Vol] 130 10*3/uL Low 150-400 [facility] Comment on above: Order Comment: Speci men Type: BLOOD SPECIMENOrdering Facility: [facility] Address: [address] [place] [address] Performed By: #### 5 7021-8 ####[facility] [place] LABCLIA [id number] [facility] [place] [address] [place] RBC (Bld) [#/Vol] 2.41 10*6/uL Low 4.20-6.00 [facility] Comment on above: Order Comment: Speci men Type: BLOOD SPECIMENOrdering Facility: [facility] Address: [facility] [place] [place] [address] Performed By: #### 5 7021-8 ####[facility] [place] LABCLIA [id number] [place] [address] [place] WBC (Bld) [#/Vol] 6.06 10*3/uL Normal 3.70-11.00 [facility] Comment on above: Order Comment: Speci men Type: BLOOD SPECIMENOrdering Facility: [facility] Address: [address] [place] [address] Performed By: #### 5 7021-8 ####[facility] [place] LABCLIA [id number] [place] [address] [facility] TYPE + SCREENon 12-10-2023 ABO B Normal [facility] Comment on above: Order Comment: Speci men Type: BLOOD SPECIMENOrdering Facility: [facility] Address: [address] [place] [address] Performed By: #### T SCR ####[facility] BLOOD BANKCLIA [id number] [address] Rh Nom (Bld) Positive Normal [facility] Comment on above: Order Comment: Speci men Type: BLOOD SPECIMENOrdering Facility: [facility] Address: [address] [place] [address] Performed By: #### T SCR ####[facility] BLOOD BANKCLIA [id number] [address] TYPE AND SCREEN EXPIRATION 12/13/2023 23:59 Normal [facility] Comment on above: Order Comment: Speci men Type: BLOOD SPECIMENOrdering Facility: [facility] Address: [address] [place] [address] Performed By: #### T SCR ####[facility] BLOOD BANKCLIA [id number] [address] OF [place] CNOVSPon 11-28-2023 CNOVSP Normal [facility] CBC W Auto Differential pane l (Bld)on 11-19-2023 Basophils (Bld) [#/Vol] NINF [facility] Basophils/100 WBC (Bld) 0.2 % [facility] Differential cell count method Nom (Bld) Auto [facility] Eosinophils (Bld) [#/Vol] NINF [facility] Eosinophils/100 WBC (Bld) 0.2 % [facility] Erythrocyte distribution width (RBC) [Ratio] 19.6 % High 11.5 - 15.0 % [facility] Hematocrit (Bld) [Volume fraction] 22.9 % Low 39.0 - 51.0 % [facility] Hemoglobin (Bld) [Mass/Vol] 7.5 g/dL Low 13.0 - 17.0 g/dL [facility] Immature granulocytes (Bld) [#/Vol] NINF [facility] Immature granulocytes/100 WBC (Bld) 0.2 % [facility] Interpretation and review of laboratory results Abnormal [facility] Lymphocytes (Bld) [#/Vol] 1.74 10*3/uL [facility] Lymphocytes/100 WBC (Bld) 37.3 % [facility] MCH (RBC) [Entitic mass] 39.1 pg High 26.0 - 34.0 pg [facility] MCHC (RBC) [Mass/Vol] 32.8 g/dL 30.5 - 36.0 g/dL [facility] MCV (RBC) [Entitic vol] 119.3 fL High 80.0 - 100.0 fL [facility] Monocytes (Bld) [#/Vol] 0.30 10*3/uL [facility] Monocytes/100 WBC (Bld) 6.4 % [facility] Neutrophils (Bld) [#/Vol] 2.59 10*3/uL [facility] Neutrophils/100 WBC (Bld) 55.7 % [facility] Nucleated RBC (Bld) [#/Vol] [facility] Nucleated RBC/100 WBC (Bld) [Ratio] [facility] Platelet mean volume (Bld) [Entitic vol] 12.6 fL 9.0 - 12.7 fL [facility] Platelets (Bld) [#/Vol] 116 10*3/uL Low [facility] RBC (Bld) [#/Vol] 1.92 10*6/uL Low 4.20 - 6.0 0 m/uL [facility] WBC (Bld) [#/Vol] 4.66 10*3/uL [facility] Basophils (Bld) [#/Vol] 10*3/uL Normal <0.11 [facility] Comment on above: Order Comment: Speci men Type: BLOOD SPECIMENOrdering Facility: [facility] Address: [address] [place] [address] Performed By: #### 5 7021-8 ####[facility] [place] LABCLIA [id number] [place] [address] [place] Basophils/100 WBC (Bld) 0.2 % Normal [facility] Comment on above: Order Comment: Speci men Type: BLOOD SPECIMENOrdering Facility: [facility] Address: [address] [place] [address] Performed By: #### 5 7021-8 ####[facility] [place] LABCLIA [id number] [facility] [place] [address] [place] Differential cell count method Nom (Bld) Auto Normal [facility] Comment on above: Order Comment: Speci men Type: BLOOD SPECIMENOrdering Facility: [facility] Address: [address] [place] [address] Performed By: #### 5 7021-8 ####[facility] [place] LABCLIA [id number] [facility] [place] [address] [place] Eosinophils (Bld) [#/Vol] 10*3/uL Normal <0.46 [facility] Comment on above: Order Comment: Speci men Type: BLOOD SPECIMENOrdering Facility: [facility] Address: [address] [place] [address] Performed By: #### 5 7021-8 ####[facility] [place] LABCLIA [id number] [facility] [place] [address] [place] Eosinophils/100 WBC (Bld) 0.2 % Normal [facility] Comment on above: Order Comment: Speci men Type: BLOOD SPECIMENOrdering Facility: [facility] Address: [address] [place] [address] Performed By: #### 5 7021-8 ####[facility] [place] LABCLIA [id number] [place] [address] [place] Erythrocyte distribution width (RBC) [Ratio] 19.6 % High 11.5-15.0 [facility] Comment on above: Order Comment: Speci men Type: BLOOD SPECIMENOrdering Facility: [facility] Address: [address] [place] [address] Performed By: #### 5 7021-8 ####[facility] [place] LABCLIA [id number] [place] [address] [place] Hematocrit (Bld) [Volume fraction] 22.9 % Low 39.0-51.0 [facility] Comment on above: Order Comment: Speci men Type: BLOOD SPECIMENOrdering Facility: [facility] Address: [address] [place] [address] Performed By: #### 5 7021-8 ####[facility] LABCLIA [id number] [place] [address] [place] Hemoglobin (Bld) [Mass/Vol] 7.5 g/dL Low 13.0-17.0 [facility] Comment on above: Order Comment: Speci men Type: BLOOD SPECIMENOrdering Facility: [facility] Address: [address] [place] [address] Performed By: #### 5 7021-8 ####[facility] LABCLIA [id number] [place] [address] [place] Immature granulocytes (Bld) [#/Vol] 10*3/uL Normal <0.10 [facility] Comment on above: Order Comment: Speci men Type: BLOOD SPECIMENOrdering Facility: [facility] Address: [address] [place] [address] Performed By: #### 5 7021-8 ####[facility] [place] LABCLIA [id number] [place] [address] [facility] [place] Immature granulocytes/100 WBC (Bld) 0.2 % Normal [facility] Comment on above: Order Comment: Speci men Type: BLOOD SPECIMENOrdering Facility: [facility] Address: [address] [place] [address] Performed By: #### 5 7021-8 ####[facility] [place] LABCLIA [id number] [place] [address] [place] Lymphocytes (Bld) [#/Vol] 1.74 10*3/uL Normal 1.00-4.00 [facility] Comment on above: Order Comment: Speci men Type: BLOOD SPECIMENOrdering Facility: [facility] Address: [address] [place] [address] Performed By: #### 5 7021-8 ####[facility] LABCLIA [id number] [place] [address] [facility] Lymphocytes/100 WBC (Bld) 37.3 % Normal [facility] Comment on above: Order Comment: Speci men Type: BLOOD SPECIMENOrdering Facility: [facility] Address: [address] [place] [address] Performed By: #### 5 7021-8 ####[facility] LABCLIA [id number] [place] [address] [place] MCH (RBC) [Entitic mass] 39.1 pg High 26.0-34.0 [facility] Comment on above: Order Comment: Speci men Type: BLOOD SPECIMENOrdering Facility: [facility] Address: [address] [place] [address] Performed By: #### 5 7021-8 ####[facility] LABCLIA [id number] [place] [address] [place] MCHC (RBC) [Mass/Vol] 32.8 g/dL Normal 30.5-36.0 [facility] Comment on above: Order Comment: Speci men Type: BLOOD SPECIMENOrdering Facility: [facility] Address: [address] [place] [address] Performed By: #### 5 7021-8 ####[facility] LABCLIA [id number] [place] [address] [place] MCV (RBC) [Entitic vol] 119.3 fL High 80.0-100.0 [facility] Comment on above: Order Comment: Speci men Type: BLOOD SPECIMENOrdering Facility: [facility] Address: [address] [place] [address] Performed By: #### 5 7021-8 ####[facility] [place] LABCLIA [id number] [place] [address] [place] Monocytes (Bld) [#/Vol] 0.30 10*3/uL Normal <0.87 [facility] Comment on above: Order Comment: Speci men Type: BLOOD SPECIMENOrdering Facility: [facility] Address: [address] [place] [address] Performed By: #### 5 7021-8 ####[facility] [place] LABCLIA [id number] [place] [address] [place] Monocytes/100 WBC (Bld) 6.4 % Normal [facility] Comment on above: Order Comment: Speci men Type: BLOOD SPECIMENOrdering Facility: [facility] Address: [address] [place] [address] Performed By: #### 5 7021-8 ####[facility] [place] LABCLIA [id number] [place] [address] [place] Neutrophils (Bld) [#/Vol] 2.59 10*3/uL Normal 1.45-7.50 [facility] Comment on above: Order Comment: Speci men Type: BLOOD SPECIMENOrdering Facility: [facility] Address: [address] [place] [address] Performed By: #### 5 7021-8 ####[facility] [place] LABCLIA [id number] [facility] [place] [address] [place] Neutrophils/100 WBC (Bld) 55.7 % Normal [facility] Comment on above: Order Comment: Speci men Type: BLOOD SPECIMENOrdering Facility: [facility] Address: [address] [place] [address] Performed By: #### 5 7021-8 ####[facility] [place] LABCLIA [id number] [place] [address] [place] Nucleated RBC (Bld) [#/Vol] Normal [facility] Comment on above: Order Comment: Speci men Type: BLOOD SPECIMENOrdering Facility: [facility] Address: [address] [place] [address] Performed By: #### 5 7021-8 ####[facility] [place] LABCLIA [id number] [place] [address] [place] Nucleated RBC/100 WBC (Bld) [Ratio] Normal [facility] Comment on above: Order Comment: Speci men Type: BLOOD SPECIMENOrdering Facility: [facility] Address: [address] [place] [address] Performed By: #### 5 7021-8 ####[facility] [place] LABCLIA [id number] [place] [address] [place] Platelet mean volume (Bld) [Entitic vol] 12.6 fL Normal 9.0-12.7 [facility] Comment on above: Order Comment: Speci men Type: BLOOD SPECIMENOrdering Facility: [facility] Address: [address] [place] [address] Performed By: #### 5 7021-8 ####[facility] [place] LABCLIA [id number] [place] [address] [place] Platelets (Bld) [#/Vol] 116 10*3/uL Low 150-400 [facility] Comment on above: Order Comment: Speci men Type: BLOOD SPECIMENOrdering Facility: [facility] Address: [address] [place] [address] Performed By: #### 5 7021-8 ####[facility] [place] LABCLIA [id number] [place] [address] [place] RBC (Bld) [#/Vol] 1.92 10*6/uL Low 4.20-6.00 [facility] Comment on above: Order Comment: Speci men Type: BLOOD SPECIMENOrdering Facility: [facility] Address: [address] [place] [address] Performed By: #### 5 7021-8 ####[facility] [place] LABCLIA [id number] [place] [address] [facility] [place] WBC (Bld) [#/Vol] 4.66 10*3/uL Normal 3.70-11.00 [facility] Comment on above: Order Comment: Speci men Type: BLOOD SPECIMENOrdering Facility: [facility] Address: [address] [place] [address] Performed By: #### 5 7021-8 ####[facility] [place] LABCLIA [id number] [place] [id number] [facility] TYPE + SCREENon 11-19-2023 ABO group Nom (Bld) B [facility] Blood group antibody screen Ql Negative [facility] HIstorical Ab Scr Status Negative [facility] Rh Nom (Bld) Positive [facility] Type and Screen Expiration 11/22/2023 23:59 [facility] ABO B Normal [facility] Comment on above: Order Comment: Speci men Type: BLOOD SPECIMENOrdering Facility: [facility] Address: [address] [place] [address] Performed By: #### T SCR ####[facility] BLOOD BANKCLIA [id number] [address] HISTORICAL AB SCR STATUS Negative Normal [facility] Comment on above: Order Comment: Speci men Type: BLOOD SPECIMENOrdering Facility: [facility] Address: [address] [place] [address] Performed By: #### T SCR ####[facility] BLOOD BANKCLIA [id number] [address] Rh Nom (Bld) Positive Normal [facility] Comment on above: Order Comment: Speci men Type: BLOOD SPECIMENOrdering Facility: [facility] Address: [address] [place] [address] Performed By: #### T SCR ####[facility] BLOOD BANKCLIA [id number] [address] [place] TYPE AND SCREEN EXPIRATION 11/22/2023 23:59 Normal [facility] Comment on above: Order Comment: Speci men Type: BLOOD SPECIMENOrdering Facility: [facility] Address: [address] [place] [address] Performed By: #### T SCR ####[facility] BLOOD BANKCLIA [id number] [address] [place] CNPNon 11-07-2023 CNPN Normal [facility] CBC W Auto Differential pane l (Bld)on 11-06-2023 Basophils (Bld) [#/Vol] 10*3/uL Normal <0.11 [facility] Comment on above: Order Comment: Speci men Type: BLOOD SPECIMENOrdering Facility: [facility] Address: [address] [place] [address] Performed By: #### 5 7021-8 ####[facility] [place] LABCLIA [id number] [place] [id number] [place] Basophils/100 WBC (Bld) 0.3 % Normal [facility] Comment on above: Order Comment: Speci men Type: BLOOD SPECIMENOrdering Facility: [facility] Address: [address] [place] [address] Performed By: #### 5 7021-8 ####[facility] [place] LABCLIA [id number] [place] [address] [place] Differential cell count method Nom (Bld) Auto Normal [facility] Comment on above: Order Comment: Speci men Type: BLOOD SPECIMENOrdering Facility: [facility] Address: [address] [place] [address] Performed By: #### 5 7021-8 ####[facility] [place] LABCLIA [id number] [place] [address] [place] Eosinophils (Bld) [#/Vol] 10*3/uL Normal <0.46 [facility] Comment on above: Order Comment: Speci men Type: BLOOD SPECIMENOrdering Facility: [facility] Address: [address] [place] [address] Performed By: #### 5 7021-8 ####[facility] [place] LABCLIA [id number] [facility] [place] [address] [place] Eosinophils/100 WBC (Bld) 0.2 % Normal [facility] Comment on above: Order Comment: Speci men Type: BLOOD SPECIMENOrdering Facility: [facility] Address: [address] [place] [address] Performed By: #### 5 7021-8 ####[facility] LABCLIA [id number] [place] [address] [place] Erythrocyte distribution width (RBC) [Ratio] 20.2 % High 11.5-15.0 [facility] Comment on above: Order Comment: Speci men Type: BLOOD SPECIMENOrdering Facility: [facility] Address: [address] [place] [address] Performed By: #### 5 7021-8 ####[facility] LABCLIA [id number] [facility] [place] [address] [facility] Hematocrit (Bld) [Volume fraction] 24.2 % Low 39.0-51.0 [facility] Comment on above: Order Comment: Speci men Type: BLOOD SPECIMENOrdering Facility: [facility] Address: [address] [place] [address] Performed By: #### 5 7021-8 ####[facility] LABCLIA [id number] [facility] [place] [address] [place] Hemoglobin (Bld) [Mass/Vol] 8.0 g/dL Low 13.0-17.0 [facility] Comment on above: Order Comment: Speci men Type: BLOOD SPECIMENOrdering Facility: [facility] Address: [address] [place] [address] Performed By: #### 5 7021-8 ####[facility] [place] LABCLIA [id number] [place] [address] [place] Immature granulocytes (Bld) [#/Vol] 0.03 10*3/uL Normal <0.10 [facility] Comment on above: Order Comment: Speci men Type: BLOOD SPECIMENOrdering Facility: [facility] Address: [address] [place] [address] Performed By: #### 5 7021-8 ####[facility] [place] LABCLIA [id number] [place] [address] [place] [facility] Immature granulocytes/100 WBC (Bld) 0.5 % Normal [facility] Comment on above: Order Comment: Speci men Type: BLOOD SPECIMENOrdering Facility: [facility] Address: [address] [place] [address] Performed By: #### 5 7021-8 ####[facility] [place] LABCLIA [id number] [place] [address] [place] [facility] Lymphocytes (Bld) [#/Vol] 2.59 10*3/uL Normal 1.00-4.00 [facility] Comment on above: Order Comment: Speci men Type: BLOOD SPECIMENOrdering Facility: [facility] Address: [address] [place] [address] Performed By: #### 5 7021-8 ####[facility] [place] LABCLIA [id number] [place] [address] [facility] Lymphocytes/100 WBC (Bld) 42.6 % Normal [facility] Comment on above: Order Comment: Speci men Type: BLOOD SPECIMENOrdering Facility: [facility] Address: [address] [place] [address] Performed By: #### 5 7021-8 ####[facility] [place] LABCLIA [id number] [place] [address] [place] MCH (RBC) [Entitic mass] 38.6 pg High 26.0-34.0 [facility] Comment on above: Order Comment: Speci men Type: BLOOD SPECIMENOrdering Facility: [facility] Address: [address] [place] [address] Performed By: #### 5 7021-8 ####[facility] [place] LABCLIA [id number] [place] [address] [place] MCHC (RBC) [Mass/Vol] 33.1 g/dL Normal 30.5-36.0 [facility] Comment on above: Order Comment: Speci men Type: BLOOD SPECIMENOrdering Facility: [facility] Address: [address] [place] [address] Performed By: #### 5 7021-8 ####[facility] LABCLIA [id number] [place] [address] [place] MCV (RBC) [Entitic vol] 116.9 fL High 80.0-100.0 [facility] Comment on above: Order Comment: Speci men Type: BLOOD SPECIMENOrdering Facility: [facility] Address: [address] [place] [address] Performed By: #### 5 7021-8 ####[facility] LABCLIA [id number] [place] [address] [place] Monocytes (Bld) [#/Vol] 0.33 10*3/uL Normal <0.87 [facility] Comment on above: Order Comment: Speci men Type: BLOOD SPECIMENOrdering Facility: [facility] Address: [address] [place] [address] Performed By: #### 5 7021-8 ####[facility] LABCLIA [id number] [place] [address] [facility] Monocytes/100 WBC (Bld) 5.4 % Normal [facility] Comment on above: Order Comment: Speci men Type: BLOOD SPECIMENOrdering Facility: [facility] Address: [address] [place] [address] Performed By: #### 5 7021-8 ####[facility] LABCLIA [id number] [place] [address] [place] Neutrophils (Bld) [#/Vol] 3.10 10*3/uL Normal 1.45-7.50 [facility] Comment on above: Order Comment: Speci men Type: BLOOD SPECIMENOrdering Facility: [facility] Address: [address] [place] [address] Performed By: #### 5 7021-8 ####[facility] [place] LABCLIA [id number] [place] [address] [place] Neutrophils/100 WBC (Bld) 51.0 % Normal [facility] Comment on above: Order Comment: Speci men Type: BLOOD SPECIMENOrdering Facility: [facility] Address: [address] [place] [address] Performed By: #### 5 7021-8 ####[facility] [place] LABCLIA [id number] [place] [address] [place] Nucleated RBC (Bld) [#/Vol] Normal [facility] Comment on above: Order Comment: Speci men Type: BLOOD SPECIMENOrdering Facility: [facility] Address: [address] [place] [address] Performed By: #### 5 7021-8 ####[facility] [place] LABCLIA [id number] [facility] [place] [address] [place] Nucleated RBC/100 WBC (Bld) [Ratio] Normal [facility] Comment on above: Order Comment: Speci men Type: BLOOD SPECIMENOrdering Facility: [facility] Address: [address] [place] [address] Performed By: #### 5 7021-8 ####[facility] [place] LABCLIA [id number] [place] [address] [place] Platelet mean volume (Bld) [Entitic vol] 12.0 fL Normal 9.0-12.7 [facility] Comment on above: Order Comment: Speci men Type: BLOOD SPECIMENOrdering Facility: [facility] Address: [address] [place] [address] Performed By: #### 5 7021-8 ####[facility] [place] LABCLIA [id number] [place] [address] [place] Platelets (Bld) [#/Vol] 117 10*3/uL Low 150-400 [facility] Comment on above: Order Comment: Speci men Type: BLOOD SPECIMENOrdering Facility: [facility] Address: [address] [place] [address] Performed By: #### 5 7021-8 ####[facility] [place] LABCLIA [id number] [place] [address] [place] RBC (Bld) [#/Vol] 2.07 10*6/uL Low 4.20-6.00 [facility] Comment on above: Order Comment: Speci men Type: BLOOD SPECIMENOrdering Facility: [facility] Address: [address] [place] [address] Performed By: #### 5 7021-8 ####[facility] LABCLIA [id number] [place] [address] [facility] [place] WBC (Bld) [#/Vol] 6.08 10*3/uL Normal 3.70-11.00 [facility] Comment on above: Order Comment: Speci men Type: BLOOD SPECIMENOrdering Facility: [facility] Address: [address] [place] [address] Performed By: #### 5 7021-8 ####[facility] LABCLIA [id number] [place] [address] [facility] [place] TYPE + SCREENon 11-06-2023 ABO B Normal [facility] Comment on above: Order Comment: Speci men Type: BLOOD SPECIMENOrdering Facility: [facility] Address: [address] [place] [address] Performed By: #### T SCR ####[facility] BLOOD BANKCLIA [id number] [address] HISTORICAL AB SCR STATUS Negative Normal [facility] Comment on above: Order Comment: Speci men Type: BLOOD SPECIMENOrdering Facility: [facility] Address: [address] [place] [address] Performed By: #### T SCR ####[facility] BLOOD BANKCLIA [id number] [place] [address] [facility] Rh Nom (Bld) Positive Normal [facility] Comment on above: Order Comment: Speci men Type: BLOOD SPECIMENOrdering Facility: [facility] Address: [address] [place], [place] [id number] Performed By: #### T SCR ####[facility] BLOOD BANKCLIA [id number] [place] [address] [facility] TYPE AND SCREEN EXPIRATION 11/09/2023 23:59 Normal [facility] Comment on above: Order Comment: Speci men Type: BLOOD SPECIMENOrdering Facility: [facility] Address: [address] [place] [address] Performed By: #### T SCR ####[facility] BLOOD [facility] PHOENIXIA [id number] [place] [id number] [facility] CBC W Auto Differential pane l (Bld)on 10-29-2023 Anisocytosis Ql (Bld) Present [facility] Basophils (Bld) [#/Vol] 0.00 10*3/uL [facility] Basophils/100 WBC (Bld) 0.0 % [facility] Differential cell count method Nom (Bld) Manual [facility] Eosinophils (Bld) [#/Vol] 0.00 10*3/uL [facility] Eosinophils/100 WBC (Bld) 0.0 % [facility] Erythrocyte distribution width (RBC) [Ratio] 20.4 % High 11.5 - 15.0 % [facility] Hematocrit (Bld) [Volume fraction] 24.4 % Low 39.0 - 51.0 % [facility] Hemoglobin (Bld) [Mass/Vol] 7.9 g/dL Low 13.0 - 17.0 g/dL [facility] Interpretation and review of laboratory results Abnormal [facility] Lymphocytes (Bld) [#/Vol] 2.09 10*3/uL [facility] Lymphocytes/100 WBC (Bld) 37.0 % [facility] MCH (RBC) [Entitic mass] 37.8 pg High 26.0 - 34.0 pg [facility] MCHC (RBC) [Mass/Vol] 32.4 g/dL 30.5 - 36.0 g/dL [facility] MCV (RBC) [Entitic vol] 116.7 fL High 80.0 - 100.0 fL [facility] Monocytes (Bld) [#/Vol] 0.23 10*3/[facility] Health Monocytes/100 WBC (Bld) 4.0 % [facility] Neutrophils (Bld) [#/Vol] 3.33 10*3/uL [facility] Neutrophils/100 WBC (Bld) 59.0 % [facility] Nucleated RBC (Bld) [#/Vol] NINF [facility] Nucleated RBC/100 WBC (Bld) [Ratio] 0.0 % /100 WBC [facility] Ovalocytes LM Ql (Bld) Few [facility] Platelet mean volume (Bld) [Entitic vol] 12.0 fL 9.0 - 12.7 fL [facility] Platelets (Bld) [#/Vol] 112 10*3/uL Low [facility] Platelets Estimate (Bld) [#/Vol] Decreased [facility] Polychromasia LM Ql (Bld) Slight [facility] RBC (Bld) [#/Vol] 2.09 10*6/uL Low 4.20 - 6.0 0 m/uL [facility] Red Cell Morph Reviewed: see result s of individual morphologies [facility] WBC (Bld) [#/Vol] 5.65 10*3/uL [facility] This is an appended report. These results have been appended to a previously verified report. [facility] Anisocytosis Ql (Bld) Present Normal [facility] Comment on above: Order Comment: Mathew portillo Type: BLOOD SPECIMENOrdering Facility: [facility] Address: [address] [place] [address] Performed By: #### 5 7021-8 ####[facility] LABCLIA [id number] [place], [place] [id number] [place] [address] Basophils (Bld) [#/Vol] 0.00 10*3/uL Normal <0.11 [facility] Comment on above: Order Comment: Mathew portillo Type: BLOOD SPECIMENOrdering Facility: [facility] Address: [address] [place] [address] Performed By: #### 5 7021-8 ####[facility] [place] LABCLIA [id number] [place] [address] [facility] Basophils/100 WBC (Bld) 0.0 % Normal [facility] Comment on above: Order Comment: Speci men Type: BLOOD SPECIMENOrdering Facility: [facility] Address: [address] [place] [address] Performed By: #### 5 7021-8 ####[facility] [place] LABCLIA [id number] [place] [facility] [address] [facility] Differential cell count method Nom (Bld) Manual Normal [facility] Comment on above: Order Comment: Speci men Type: BLOOD SPECIMENOrdering Facility: [facility] Address: [address] [place] [address] Performed By: #### 5 7021-8 ####[facility] [place] LABCLIA [id number] [facility] [place] [address] [facility] Eosinophils (Bld) [#/Vol] 0.00 10*3/uL Normal <0.46 [facility] Comment on above: Order Comment: Speci men Type: BLOOD SPECIMENOrdering Facility: [facility] Address: [address] [place] [address] Performed By: #### 5 7021-8 ####[facility] [place] LABCLIA [id number] [facility] [place] [address] [facility] [place] Eosinophils/100 WBC (Bld) 0.0 % Normal [facility] Comment on above: Order Comment: Speci men Type: BLOOD SPECIMENOrdering Facility: [facility] Address: [address] [place] [address] Performed By: #### 5 7021-8 ####[facility] [place] LABCLIA [id number] [place] [address] [facility] [place] Erythrocyte distribution width (RBC) [Ratio] 20.4 % High 11.5-15.0 [facility] Comment on above: Order Comment: Speci men Type: BLOOD SPECIMENOrdering Facility: [facility] Address: [address] [place] [address] Performed By: #### 5 7021-8 ####[facility] [place] LABCLIA [id number] [place] [address] [place] Hematocrit (Bld) [Volume fraction] 24.4 % Low 39.0-51.0 [facility] Comment on above: Order Comment: Speci men Type: BLOOD SPECIMENOrdering Facility: [facility] Address: [address] [place] [address] Performed By: #### 5 7021-8 ####[facility] [place] LABCLIA [id number] [place] [address] [place] Hemoglobin (Bld) [Mass/Vol] 7.9 g/dL Low 13.0-17.0 [facility] Comment on above: Order Comment: Speci men Type: BLOOD SPECIMENOrdering Facility: [facility] Address: [address] [place] [address] Performed By: #### 5 7021-8 ####[facility] LABCLIA [id number] [place] [address] [place] Lymphocytes (Bld) [#/Vol] 2.09 10*3/uL Normal 1.00-4.00 [facility] Comment on above: Order Comment: Speci men Type: BLOOD SPECIMENOrdering Facility: [facility] Address: [address] [place] [address] Performed By: #### 5 7021-8 ####[facility] [place] LABCLIA [id number] [place] [address] [place] Lymphocytes/100 WBC (Bld) 37.0 % Normal [facility] Comment on above: Order Comment: Speci men Type: BLOOD SPECIMENOrdering Facility: [facility] Address: [address] [place] [address] Performed By: #### 5 7021-8 ####[facility] [place] LABCLIA [id number] [place] [address] [place] MCH (RBC) [Entitic mass] 37.8 pg High 26.0-34.0 [facility] Comment on above: Order Comment: Speci men Type: BLOOD SPECIMENOrdering Facility: [facility] Address: [address] [place] [address] Performed By: #### 5 7021-8 ####[facility] [place] LABCLIA [id number] [place] [address] [place] MCHC (RBC) [Mass/Vol] 32.4 g/dL Normal 30.5-36.0 [facility] Comment on above: Order Comment: Speci men Type: BLOOD SPECIMENOrdering Facility: [facility] Address: [address] [place] [address] Performed By: #### 5 7021-8 ####[facility] [place] LABCLIA [id number] [address] [place] MCV (RBC) [Entitic vol] 116.7 fL High 80.0-100.0 [facility] Comment on above: Order Comment: Speci men Type: BLOOD SPECIMENOrdering Facility: [facility] Address: [address] [place] [address] Performed By: #### 5 7021-8 ####[facility] [place] LABCLIA [id number] [address] Monocytes (Bld) [#/Vol] 0.23 10*3/uL Normal <0.87 [facility] Comment on above: Order Comment: Speci men Type: BLOOD SPECIMENOrdering Facility: [facility] Address: [address] [place] [address] Performed By: #### 5 7021-8 ####[facility] [place] LABCLIA [id number] [place] [id number] [facility] Monocytes/100 WBC (Bld) 4.0 % Normal [facility] Comment on above: Order Comment: Speci men Type: BLOOD SPECIMENOrdering Facility: [facility] Address: [address] [place] [address] Performed By: #### 5 7021-8 ####[facility] [place] LABCLIA [id number] [place] [address] [place] Neutrophils (Bld) [#/Vol] 3.33 10*3/uL Normal 1.45-7.50 [facility] Comment on above: Order Comment: Speci men Type: BLOOD SPECIMENOrdering Facility: [facility] Address: [address] [place] [address] Performed By: #### 5 7021-8 ####[facility] [place] LABCLIA [id number] [place] [address] [place] Neutrophils/100 WBC (Bld) 59.0 % Normal [facility] Comment on above: Order Comment: Speci men Type: BLOOD SPECIMENOrdering Facility: [facility] Address: [address] [place] [address] Performed By: #### 5 7021-8 ####[facility] [place] LABCLIA [id number] [place] [address] [place] Nucleated RBC (Bld) [#/Vol] 10*3/uL Normal <0.01 [facility] Comment on above: Order Comment: Speci men Type: BLOOD SPECIMENOrdering Facility: [facility] Address: [address] [place] [address] Performed By: #### 5 7021-8 ####[facility] [place] LABCLIA [id number] [facility] [place] [address] [place] Nucleated RBC/100 WBC (Bld) [Ratio] 0.0 /100 WBC Normal [facility] Comment on above: Order Comment: Speci men Type: BLOOD SPECIMENOrdering Facility: [facility] Address: [address] [place] [address] Performed By: #### 5 7021-8 ####[facility] [place] LABCLIA [id number] [facility] [place] [address] [place] Ovalocytes LM Ql (Bld) Few Normal [facility] Comment on above: Order Comment: Speci men Type: BLOOD SPECIMENOrdering Facility: [facility] Address: [address] [place] [address], [place] [address] Performed By: #### 5 7021-8 ####[facility] [place] LABCLIA [id number] [place] [address] [place] Platelet mean volume (Bld) [Entitic vol] 12.0 fL Normal 9.0-12.7 [facility] Comment on above: Order Comment: Speci men Type: BLOOD SPECIMENOrdering Facility: [facility] Address: [facility] [place] [place] [address] Performed By: #### 5 7021-8 ####[facility] [place] LABCLIA [id number] [place] [address] [place] Platelets (Bld) [#/Vol] 112 10*3/uL Low 150-400 [facility] Comment on above: Order Comment: Speci men Type: BLOOD SPECIMENOrdering Facility: [facility] Address: [address] [place] [address] Performed By: #### 5 7021-8 ####[facility] [place] LABCLIA [id number] [place] [address] [place] Platelets Estimate (Bld) [#/Vol] Decreased Normal [facility] Comment on above: Order Comment: Speci men Type: BLOOD SPECIMENOrdering Facility: [facility] Address: [address] [place] [address] Performed By: #### 5 7021-8 ####[facility] [place] LABCLIA [id number] [place] [address] [place] Polychromasia LM Ql (Bld) Slight Normal [facility] Comment on above: Order Comment: Speci men Type: BLOOD SPECIMENOrdering Facility: [facility] Address: [facility] [place] [address] Performed By: #### 5 7021-8 ####[facility] [place] LABCLIA [id number] [place] [address] [place] RBC (Bld) [#/Vol] 2.09 10*6/uL Low 4.20-6.00 [facility] Comment on above: Order Comment: Speci men Type: BLOOD SPECIMENOrdering Facility: [facility] Address: [address] [place] [address] Performed By: #### 5 7021-8 ####[facility] LABCLIA [id number] [place] [address] [facility] RED CELL MORPH Reviewed: see result s of individual morphologies Normal [facility] Comment on above: Order Comment: Speci men Type: BLOOD SPECIMENOrdering Facility: [facility] Address: [address] [place] [address] Performed By: #### 5 7021-8 ####[facility] LABCLIA [id number] [place] [address] [place] WBC (Bld) [#/Vol] 5.65 10*3/uL Normal 3.70-11.00 [facility] Comment on above: Order Comment: Speci men Type: BLOOD SPECIMENOrdering Facility: [facility] Address: [address] [place] [address] Performed By: #### 5 7021-8 ####[facility] LABCLIA [id number] [place] [address] [facility] Laboratory - Blood bankon ABO group Nom (Bld) B [facility] Blood group antibody screen Ql Negative [facility] Rh Nom (Bld) Positive [facility] No Panel Informationon 10-28 HIstorical Ab Scr Status Negative [facility] Type and Screen Expiration 11/01/2023 23:59 [facility] TYPE + SCREENon 10-29-2023 ABO B Normal [facility] Comment on above: Order Comment: Speci men Type: BLOOD SPECIMENOrdering Facility: [facility] Address: [address] [place] [address] Performed By: #### T SCR ####[facility] BLOOD BANKCLIA [id number] [place], [place] [id number] [place] [address] [place] [facility] HISTORICAL AB SCR STATUS Negative Normal [facility] Comment on above: Order Comment: Speci men Type: BLOOD SPECIMENOrdering Facility: [facility] Address: [address] [place] [address] Performed By: #### T SCR ####[facility] BLOOD BANKCLIA [id number] [place] [id number] [facility] Rh Nom (Bld) Positive Normal [facility] Comment on above: Order Comment: Speci men Type: BLOOD SPECIMENOrdering Facility: [facility] Address: [address] [place] [address] Performed By: #### T SCR ####[facility] BLOOD BANKCLIA [id number] [address] TYPE AND SCREEN EXPIRATION 11/01/2023 23:59 Normal [facility] Comment on above: Order Comment: Speci men Type: BLOOD SPECIMENOrdering Facility: [facility] Address: [address] [place] [address] Performed By: #### T SCR ####[facility] BLOOD BANKCLIA [id number] [place] [id number] [facility] CBC W Auto Differential pane l (Bld)on 10-03-2023 Basophils (Bld) [#/Vol] 0.03 10*3/uL [facility] Basophils/100 WBC (Bld) 0.6 % [facility] Differential cell count method Nom (Bld) Auto [facility] Eosinophils (Bld) [#/Vol] [facility] Eosinophils/100 WBC (Bld) 0.2 % [facility] Erythrocyte distribution width (RBC) [Ratio] 21.3 % High 11.5 - 15.0 % [facility] Hematocrit (Bld) [Volume fraction] 26.1 % Low 39.0 - 51.0 % [facility] Hemoglobin (Bld) [Mass/Vol] 8.8 g/dL Low 13.0 - 17.0 g/dL [facility] Immature granulocytes (Bld) [#/Vol] 0.06 10*3/uL [facility] Immature granulocytes/100 WBC (Bld) 1.2 % [facility] Interpretation and review of laboratory results Abnormal [facility] Lymphocytes (Bld) [#/Vol] 2.41 10*3/uL [facility] Lymphocytes/100 WBC (Bld) 48.4 % [facility] MCH (RBC) [Entitic mass] 38.8 pg High 26.0 - 34.0 pg [facility] MCHC (RBC) [Mass/Vol] 33.7 g/dL 30.5 - 36.0 g/dL [facility] MCV (RBC) [Entitic vol] 115.0 fL High 80.0 - 100.0 fL [facility] Monocytes (Bld) [#/Vol] 0.35 10*3/uL [facility] Monocytes/100 WBC (Bld) 7.0 % [facility] Neutrophils (Bld) [#/Vol] 2.12 10*3/uL [facility] Neutrophils/100 WBC (Bld) 42.6 % [facility] Nucleated RBC (Bld) [#/Vol] 0.06 10*3/uL High NINF [facility] Nucleated RBC/100 WBC (Bld) [Ratio] 1.2 % /100 WBC [facility] Platelet mean volume (Bld) [Entitic vol] 11.7 fL 9.0 - 12.7 fL [facility] Platelets (Bld) [#/Vol] 126 10*3/uL Low [facility] RBC (Bld) [#/Vol] 2.27 10*6/uL Low 4.20 - 6.0 0 m/uL [facility] WBC (Bld) [#/Vol] 4.98 10*3/uL [facility] Basophils (Bld) [#/Vol] 0.03 10*3/uL Normal <0.11 [facility] Comment on above: Order Comment: Speci men Type: BLOOD SPECIMENOrdering Facility: [facility] Address: [address] [place] [address] Performed By: #### 5 7021-8 ####[facility] LABORATORYCLIA [id number] [address] STATES OF [facility] Basophils/100 WBC (Bld) 0.6 % Normal [facility] Comment on above: Order Comment: Speci men Type: BLOOD SPECIMENOrdering Facility: [facility] Address: [address] [place] [address] Performed By: #### 5 7021-8 ####[facility]ORATORYCLIA [id number] [address] Differential cell count method Nom (Bld) Auto Normal [facility] Comment on above: Order Comment: Speci men Type: BLOOD SPECIMENOrdering Facility: [facility] Address: [address] [place] [address] Performed By: #### 5 7021-8 ####[facility] LABORATORYCLIA [id number] [address] Eosinophils (Bld) [#/Vol] 10*3/uL Normal <0.46 [facility] Comment on above: Order Comment: Speci men Type: BLOOD SPECIMENOrdering Facility: [facility] Address: [address] [place] [address] Performed By: #### 5 7021-8 ####[facility] LABORATORYCLIA [id number] [address] Eosinophils/100 WBC (Bld) 0.2 % Normal [facility] Comment on above: Order Comment: Speci men Type: BLOOD SPECIMENOrdering Facility: [facility] Address: [address] [place] [address] Performed By: #### 5 7021-8 ####[facility] LABORATORYCLIA [id number] [address] [place] Erythrocyte distribution width (RBC) [Ratio] 21.3 % High 11.5-15.0 [facility] Comment on above: Order Comment: Speci men Type: BLOOD SPECIMENOrdering Facility: [facility] Address: [address] [place] [address] Performed By: #### 5 7021-8 ####[facility] LABORATORYCLIA [id number] [address] Hematocrit (Bld) [Volume fraction] 26.1 % Low 39.0-51.0 [facility] Comment on above: Order Comment: Speci men Type: BLOOD SPECIMENOrdering Facility: [facility] Address: [address] [place] [address] Performed By: #### 5 7021-8 ####[facility] LABORATORYCLIA [id number] [place] [address] [place] Hemoglobin (Bld) [Mass/Vol] 8.8 g/dL Low 13.0-17.0 [facility] Comment on above: Order Comment: Speci men Type: BLOOD SPECIMENOrdering Facility: [facility] Address: [address] [place] [address] Performed By: #### 5 7021-8 ####[facility] LABORATORYCLIA [id number] [place] [address] [place] Immature granulocytes (Bld) [#/Vol] 0.06 10*3/uL Normal <0.10 [facility] Comment on above: Order Comment: Speci men Type: BLOOD SPECIMENOrdering Facility: [facility] Address: [address] [place] [address] Performed By: #### 5 7021-8 ####[facility] LABORATORYCLIA [id number] [address] [place] Immature granulocytes/100 WBC (Bld) 1.2 % Normal [facility] Comment on above: Order Comment: Speci men Type: BLOOD SPECIMENOrdering Facility: [facility] Address: [address] [place] [address] Performed By: #### 5 7021-8 ####[facility] LABORATORYCLIA [id number] [place] [address] [place] Lymphocytes (Bld) [#/Vol] 2.41 10*3/uL Normal 1.00-4.00 [facility] Comment on above: Order Comment: Speci men Type: BLOOD SPECIMENOrdering Facility: [facility] Address: [address] [place] [address] Performed By: #### 5 7021-8 ####[facility]ORATORYCLIA [id number] [address] [place] Lymphocytes/100 WBC (Bld) 48.4 % Normal [facility] Comment on above: Order Comment: Speci men Type: BLOOD SPECIMENOrdering Facility: [facility] Address: [address] [place] [address] Performed By: #### 5 7021-8 ####[facility] LABORATORYCLIA [id number] [address] MCH (RBC) [Entitic mass] 38.8 pg High 26.0-34.0 [facility] Comment on above: Order Comment: Speci men Type: BLOOD SPECIMENOrdering Facility: [facility] Address: [address] [place] [address] Performed By: #### 5 7021-8 ####[facility] LABORATORYCLIA [id number] [address] STATES OF [facility] MCHC (RBC) [Mass/Vol] 33.7 g/dL Normal 30.5-36.0 [facility] Comment on above: Order Comment: Speci men Type: BLOOD SPECIMENOrdering Facility: [facility] Address: [address] [place] [address] Performed By: #### 5 7021-8 ####[facility] LABORATORYCLIA [id number] [address] STATES [facility] MCV (RBC) [Entitic vol] 115.0 fL High 80.0-100.0 [facility] Comment on above: Order Comment: Speci men Type: BLOOD SPECIMENOrdering Facility: [facility] Address: [address] [place] [address] Performed By: #### 5 7021-8 ####[facility] LABORATORYCLIA [id number] [address] Monocytes (Bld) [#/Vol] 0.35 10*3/uL Normal <0.87 [facility] Comment on above: Order Comment: Speci men Type: BLOOD SPECIMENOrdering Facility: [facility] Address: [address] [place] [address] Performed By: #### 5 7021-8 ####[facility] LABORATORYCLIA [id number] [place] [address] [place] Monocytes/100 WBC (Bld) 7.0 % Normal [facility] Comment on above: Order Comment: Speci men Type: BLOOD SPECIMENOrdering Facility: [facility] Address: [address] [place] [address] Performed By: #### 5 7021-8 ####[facility] LABORATORYCLIA [id number] [place] [address] [place] Neutrophils (Bld) [#/Vol] 2.12 10*3/uL Normal 1.45-7.50 [facility] Comment on above: Order Comment: Speci men Type: BLOOD SPECIMENOrdering Facility: [facility] Address: [address] [place] [address] Performed By: #### 5 7021-8 ####[facility] LABORATORYCLIA [id number] [address] [place] Neutrophils/100 WBC (Bld) 42.6 % Normal [facility] Comment on above: Order Comment: Speci men Type: BLOOD SPECIMENOrdering Facility: [facility] Address: [address] [place] [address] Performed By: #### 5 7021-8 ####[facility] LABORATORYCLIA [id number] [place] [address] [place] Nucleated RBC (Bld) [#/Vol] 0.06 10*3/uL High <0.01 [facility] Comment on above: Order Comment: Speci men Type: BLOOD SPECIMENOrdering Facility: [facility] Address: [address] [place] [address] Performed By: #### 5 7021-8 ####[facility] LABORATORYCLIA [id number] [place] [address] [place] Nucleated RBC/100 WBC (Bld) [Ratio] 1.2 /100 WBC Normal [facility] Comment on above: Order Comment: Speci men Type: BLOOD SPECIMENOrdering Facility: [facility] Address: [address] [place] [address] Performed By: #### 5 7021-8 ####[facility] LABORATORYCLIA [id number] [place] [address] [place] Platelet mean volume (Bld) [Entitic vol] 11.7 fL Normal 9.0-12.7 [facility] Comment on above: Order Comment: Speci men Type: BLOOD SPECIMENOrdering Facility: [facility] Address: [address] [place] [address] Performed By: #### 5 7021-8 ####[facility] LABORATORYCLIA [id number] [place] [address] [place] Platelets (Bld) [#/Vol] 126 10*3/uL Low 150-400 [facility] Comment on above: Order Comment: Speci men Type: BLOOD SPECIMENOrdering Facility: [facility] Address: [address] [place] [address] Performed By: #### 5 7021-8 ####[facility] LABORATORYCLIA [id number] [place] [address] [place] RBC (Bld) [#/Vol] 2.27 10*6/uL Low 4.20-6.00 [facility] Comment on above: Order Comment: Speci men Type: BLOOD SPECIMENOrdering Facility: [facility] Address: [address] [place] [address] Performed By: #### 5 7021-8 ####[facility] LABORATORYCLIA [id number] [place] [address] [place] WBC (Bld) [#/Vol] 4.98 10*3/uL Normal 3.70-11.00 [facility] Comment on above: Order Comment: Speci men Type: BLOOD SPECIMENOrdering Facility: [facility] Address: [address] [place] [address] Performed By: #### 5 7021-8 ####[facility] LABORATORYCLIA [id number] [address] [place] CNOVSPon 10-03-2023 CNOVSP Normal [facility] TYPE + SCREENon 10-03-2023 ABO group Nom (Bld) B [facility] Blood group antibody screen Ql Negative [facility] HIstorical Ab Scr Status Negative [facility] Rh Nom (Bld) Positive [facility] Type and Screen Expiration 10/06/2023 23:59 [facility] ABO B Normal [facility] Comment on above: Order Comment: Speci men Type: BLOOD SPECIMENOrdering Facility: [facility] Address: [address] [place] [address] Performed By: #### T SCR ####[facility] BLOOD BANKCLIA [id number] [address] HISTORICAL AB SCR STATUS Negative Normal [facility] Comment on above: Order Comment: Speci men Type: BLOOD SPECIMENOrdering Facility: [facility] Address: [address] [place] [address] Performed By: #### T SCR ####[facility] BLOOD BANKCLIA [id number] [address] Rh Nom (Bld) Positive Normal [facility] Comment on above: Order Comment: Speci men Type: BLOOD SPECIMENOrdering Facility: [facility] Address: [address] [place] [address] Performed By: #### T SCR ####[facility] BLOOD BANKCLIA [id number] [address] TYPE AND SCREEN EXPIRATION 10/06/2023 23:59 Normal [facility] Comment on above: Order Comment: Speci men Type: BLOOD SPECIMENOrdering Facility: [facility] Address: [address] [place] [address] Performed By: #### T SCR ####[facility] BLOOD BANKCLIA [id number] [address] [place] ALLIED HEALTHon 09-30-2023 ALLIED HEALTH Normal [facility] CT CHEST WO IVCONon 09-30-19 CT CHEST WO IVCON Normal [facility] ED NOTEon 09-30-2023 ED NOTE Normal [facility] ED NOTE Normal [facility] ED NOTE HNO ID: [id number] Author: RYCH, MOHSEN, RN Service: Emergency Medicine Author Type: Registered Nurse Type: ED Notes Filed: 09/30/2023 05:04 Note Text: Physician at bedside. Normal [facility] ED NOTE Normal [facility] ED NOTE HNO ID: [id number] Author: MOHSEN MTZ RN Service: Emergency Medicine Author Type: Registered Nurse Type: ED Notes Filed: 09/30/2023 02:59 Note Text: Physician at bedside. Normal [facility] ED PROV NOTEon 09-30-2023 ED PROV NOTE Normal [facility] CNOVon 09-19-2023 CNOV Office Visit (NEURMM ) JOSS OROPEZA ([id number]) 1945 M Date Time Provider Department 09/19/23 1:30 PM ROWENA PARRA NEUR During your visit today, we recorded the following information about you: Pulse Blood pressure Weight Height 68/minute 138/70 97 kg 1.753 m Rowena Parra APRN.CNP 09/19/2023 2:31 PM Signed [facility] [place] Follow-up Visit Follow-up note September 18, 2023 HPI: Mr. Oropeza presents today for a follow-up visit. Per his previous visit on 06/28/23: G45.9 TIA (transient ischemic attack) (primary encounter diagnosis) Comment: Pt presenting today for follow-up after TIA. He reports that on 05/31 he experienced an episode of garbled speech and was taken to the ED and again on 06/07. He was admitted at [place] where stroke workup was completed including CT/A head and neck, MRI brain, EEG, and echo. Testing was unremarkable. LDL was 19. Recent A1c was 9.2. He was diagnosed with a TIA and was discharged on DAPT for 21 days and with a teacher drama. At time of appointment today, he reports he has not experienced any further symptoms. Exam in office is nonfocal. At this time recommendations will remain as follows: -Remove and mail back extended teacher drama (as it has been 2 weeks). -Continue DAPT for remainder of 21 days then continue ASA monotherapy. -Continue statin as previously prescribed. -Continue to manage BG with PCP; goal BG<140. -Continue to manage BP with PCP; goal BP<140/90. He will follow-up in 3 months or sooner should new or changing symptoms occur. Reviewed red flag symptoms and importance of calling 911 should these symptoms occur (information provided on AVS). Feels very weak since his previous visit. Has been getting medication; 3 shots every 3 weeks. Hgb has been tapering down. Had infusion at [facility]. [place] slight improvement after that. No focal weakness. No further garbled speech, slurred speech, difficulty understanding conversation. No sensory deficits. No balance concerns. Slight dizziness every once in a while; lightheadedness. Taking ASA daily. BP was slightly elevated after infusion. Still taking rosuvastatin. 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 PAST SURGICAL HISTORY Procedure Laterality Date ADENOIDECTOMY PRIMARY Adenoidectomy COLONOSCOPY FLX DX W/COLLJ SPEC WHEN PFRMD Colonoscopy COLONOSCOPY FLX DX W/COLLJ SPEC WHEN PFRMD Colonoscopy LAPAROSCOPY SURG CHOLECYSTECTOMY Cholecystectomy, lap PAST SURGICAL HISTORY OF 10 BACK SURGERY PAST SURGICAL HISTORY OF SKIN LESION--PRE CANCER SKULL PAST SURGICAL HISTORY OF SKIN LESION--SKIN CANCER LEFT HAND PICC LINE MRSA INFECTION RT/LT HEART CATHETERS CC AND CA, R AND L heart, NEGATIVE TONSILLECTOMY PRIMARY/SECONDARY Tonsillectomy Current Outpatient Medications on File Prior to Visit Medication Sig clopidogrel (PLAVIX) 75 mg tablet Take 1 tablet by mouth once daily for 19 doses. metFORMIN (GLUCOPHAGE) 1,000 mg tablet Take 1,000 mg by mouth two times a day with meals. Once in am and once in pm SITagliptin (ZITUVIO) 100 mg tablet Take by mouth. aspirin 81 mg chewable tablet Take by mouth. finasteride 0.1% minoxidil 7.5% topical solution (CPD) Finasteride Active 5 MG DAILY July 10, 2018 9:31am IFTIKHAR VAZQUEZ U-100 INSULIN 100 unit/mL (3 mL) Inject 25 Units subcutaneously every morning. BD CRISTAL 2ND GEN PEN NEEDLE 32 gauge x glimepiride (AMARYL) 4 mg tablet Take 4 mg by mouth two times a day with meals. rosuvastatin (CRESTOR) 10 mg tablet Take 1 tablet by mouth daily at bedtime. MEN'S MULTI-VITAMIN ORAL Take 1 tablet by mouth. cyanocobalamin (VITAMIN B-12) 1,000 mcg tab Take 1,000 mcg by mouth once daily. tamsulosin (FLOMAX) 0.4 mg Take 0.4 mg by mouth two times a day. finasteride (PROSCAR) 5 mg tablet Take 5 mg by mouth once daily. alendronate (FOSAMAX) 70 mg tablet Take 70 mg by mouth one time a week. In AM with cup of water on empty stomach. Nothing else by mouth and stay upright for 30 min. No current facility-administered medications on file prior to visit. Social History Tobacco Use Smoking status: Never Smokeless tobacco: Never Vaping Use Vaping Use: Never used Substance Use Topics Alcohol use: Yes Comment: social/rare Drug use: No ALLERGIES Allergen Reactions Maxipime [Cefepime] Unknown Review of Systems: See HPI. Physical Exam: 09/19/23 1319 BP: 138/70 BP Site: Left Arm BP Position: Sitting BP Cuff Size: Regular Adult Pulse: 68 SpO2: 97% Weight: 97 kg (213 lb 13.5 oz) Height: 175.3 cm (5' 9) Patient is alert and in no distress. Dress is appropriate. Mood is appropriate Breathing appears regular and unstressed Neurologic e (more content not included)... Normal [facility] TYPE + SCREENon 09-17-2023 ABO B Normal [facility] Comment on above: Order Comment: Speci men Type: BLOOD SPECIMENOrdering Facility: [facility] Address: [address] [place] [address] Performed By: #### T SCR ####[facility] BLOOD BANKCLIA [id number] [place] [address] [place] HISTORICAL AB SCR STATUS Negative Normal [facility] Comment on above: Order Comment: Speci men Type: BLOOD SPECIMENOrdering Facility: [facility] Address: [address] [place] [address] Performed By: #### T SCR ####[facility] BLOOD BANKCLIA [id number] [place] [id number] [facility] Rh Nom (Bld) Positive Normal [facility] Comment on above: Order Comment: Speci men Type: BLOOD SPECIMENOrdering Facility: [facility] Address: [address] [place] [address] Performed By: #### T SCR ####[facility] BLOOD BANKCLIA [id number] [place] [id number] [facility] TYPE AND SCREEN EXPIRATION 09/20/2023 23:59 Normal [facility] Comment on above: Order Comment: Speci men Type: BLOOD SPECIMENOrdering Facility: [facility] Address: [address] [place] [address] Performed By: #### T SCR ####[facility] BLOOD BANKCLIA [id number] [place] [id number] [place] CBC W Auto Differential pane l (Bld)on 09-13-2023 Basophils (Bld) [#/Vol] 0.03 10*3/uL NINF [facility] Basophils/100 WBC (Bld) 0.7 % [facility] Differential cell count method Nom (Bld) Auto [facility] Eosinophils (Bld) [#/Vol] [facility] Eosinophils/100 WBC (Bld) 0.5 % [facility] Erythrocyte distribution width (RBC) [Ratio] 16.2 % High 11.5 - 15.0 % [facility] Hematocrit (Bld) [Volume fraction] 21.8 % Low 39.0 - 51.0 % [facility] Hemoglobin (Bld) [Mass/Vol] 7.1 g/dL Low 13.0 - 17.0 g/dL [facility] Immature granulocytes (Bld) [#/Vol] NINF [facility] Immature granulocytes/100 WBC (Bld) 0.2 % [facility] Interpretation and review of laboratory results Abnormal [facility] Lymphocytes (Bld) [#/Vol] 1.65 10*3/uL [facility] Lymphocytes/100 WBC (Bld) 39.5 % [facility] MCH (RBC) [Entitic mass] 39.9 pg High 26.0 - 34.0 pg [facility] MCHC (RBC) [Mass/Vol] 32.6 g/dL 30.5 - 36.0 g/dL [facility] MCV (RBC) [Entitic vol] 122.5 fL High 80.0 - 100.0 fL [facility] Monocytes (Bld) [#/Vol] 0.19 10*3/uL NINF [facility] Monocytes/100 WBC (Bld) 4.5 % [facility] Neutrophils (Bld) [#/Vol] 2.28 10*3/uL [facility] Neutrophils/100 WBC (Bld) 54.6 % [facility] Nucleated RBC (Bld) [#/Vol] [facility] Nucleated RBC/100 WBC (Bld) [Ratio] [facility] Platelet mean volume (Bld) [Entitic vol] 12.3 fL 9.0 - 12.7 fL [facility] Platelets (Bld) [#/Vol] 121 10*3/uL Low [facility] RBC (Bld) [#/Vol] 1.78 10*6/uL Low 4.20 - 6.0 0 m/uL [facility] WBC (Bld) [#/Vol] 4.18 10*3/uL [facility] Basophils (Bld) [#/Vol] 0.03 10*3/uL Normal <0.11 [facility] Comment on above: Order Comment: Speci men Type: BLOOD SPECIMENOrdering Facility: [facility] Address: [address] [place] [address] Performed By: #### 5 7021-8 ####[facility] LABCLIA [id number] [address] Basophils/100 WBC (Bld) 0.7 % Normal [facility] Comment on above: Order Comment: Speci men Type: BLOOD SPECIMENOrdering Facility: [facility] Address: [address] [place] [address] Performed By: #### 5 7021-8 ####[facility] LABCLIA [id number] [place] [address] [place] Differential cell count method Nom (Bld) Auto Normal [facility] Comment on above: Order Comment: Speci men Type: BLOOD SPECIMENOrdering Facility: [facility] Address: [address] [place] [address] Performed By: #### 5 7021-8 ####[facility] [place] LABCLIA [id number] [place] [address] [place] Eosinophils (Bld) [#/Vol] 10*3/uL Normal <0.46 [facility] Comment on above: Order Comment: Speci men Type: BLOOD SPECIMENOrdering Facility: [facility] Address: [address] [place] [address] Performed By: #### 5 7021-8 ####[facility] [place] LABCLIA [id number] [place] [address] [facility] Eosinophils/100 WBC (Bld) 0.5 % Normal [facility] Comment on above: Order Comment: Speci men Type: BLOOD SPECIMENOrdering Facility: [facility] Address: [address] [place] [address] Performed By: #### 5 7021-8 ####[facility] [place] LABCLIA [id number] [place] [address] [place] Erythrocyte distribution width (RBC) [Ratio] 16.2 % High 11.5-15.0 [facility] Comment on above: Order Comment: Speci men Type: BLOOD SPECIMENOrdering Facility: [facility] Address: [address] [place] [address] Performed By: #### 5 7021-8 ####[facility] [place] LABCLIA [id number] [place] [address] [place] Hematocrit (Bld) [Volume fraction] 21.8 % Low 39.0-51.0 [facility] Comment on above: Order Comment: Speci men Type: BLOOD SPECIMENOrdering Facility: [facility] Address: [address] [place] [address] Performed By: #### 5 7021-8 ####[facility] [place] LABCLIA [id number] [facility] [place] [address] [place] Hemoglobin (Bld) [Mass/Vol] 7.1 g/dL Low 13.0-17.0 [facility] Comment on above: Order Comment: Speci men Type: BLOOD SPECIMENOrdering Facility: [facility] Address: [address] [place] [address] Performed By: #### 5 7021-8 ####[facility] [place] LABCLIA [id number] [place] [address] [place] Immature granulocytes (Bld) [#/Vol] 10*3/uL Normal <0.10 [facility] Comment on above: Order Comment: Speci men Type: BLOOD SPECIMENOrdering Facility: [facility] Address: [address] [place] [address] Performed By: #### 5 7021-8 ####[facility] [place] LABCLIA [id number] [place] [address] [place] Immature granulocytes/100 WBC (Bld) 0.2 % Normal [facility] Comment on above: Order Comment: Speci men Type: BLOOD SPECIMENOrdering Facility: [facility] Address: [address] [place] [address] Performed By: #### 5 7021-8 ####[facility] [place] LABCLIA [id number] [place] [address] [place] Lymphocytes (Bld) [#/Vol] 1.65 10*3/uL Normal 1.00-4.00 [facility] Comment on above: Order Comment: Speci men Type: BLOOD SPECIMENOrdering Facility: [facility] Address: [address] [place] [address] Performed By: #### 5 7021-8 ####[facility] [place] LABCLIA [id number] [place] [address] [facility] Lymphocytes/100 WBC (Bld) 39.5 % Normal [facility] Comment on above: Order Comment: Speci men Type: BLOOD SPECIMENOrdering Facility: [facility] Address: [address] [place] [address] Performed By: #### 5 7021-8 ####[facility] [place] LABCLIA [id number] [place] [id number] [place] [facility] MCH (RBC) [Entitic mass] 39.9 pg High 26.0-34.0 [facility] Comment on above: Order Comment: Speci men Type: BLOOD SPECIMENOrdering Facility: [facility] Address: [address] [place] [address] Performed By: #### 5 7021-8 ####[facility] LABCLIA [id number] [place] [phone] [facility] MCHC (RBC) [Mass/Vol] 32.6 g/dL Normal 30.5-36.0 [facility] Comment on above: Order Comment: Speci men Type: BLOOD SPECIMENOrdering Facility: [facility] Address: [address] [place] [address] Performed By: #### 5 7021-8 ####[facility] LABCLIA [id number] [address] [place] MCV (RBC) [Entitic vol] 122.5 fL High 80.0-100.0 [facility] Comment on above: Order Comment: Speci men Type: BLOOD SPECIMENOrdering Facility: [facility] Address: [address] [place] [address] Performed By: #### 5 7021-8 ####[facility] LABCLIA [id number] [place] [phone] [facility] Monocytes (Bld) [#/Vol] 0.19 10*3/uL Normal <0.87 [facility] Comment on above: Order Comment: Speci men Type: BLOOD SPECIMENOrdering Facility: [facility] Address: [address] [place] [address] Performed By: #### 5 7021-8 ####[facility] LABCLIA [id number] [place] [address] [place] Monocytes/100 WBC (Bld) 4.5 % Normal [facility] Comment on above: Order Comment: Speci men Type: BLOOD SPECIMENOrdering Facility: [facility] Address: [address] [place] [address] Performed By: #### 5 7021-8 ####[facility] [place] LABCLIA [id number] [facility] [place] [address] [place] Neutrophils (Bld) [#/Vol] 2.28 10*3/uL Normal 1.45-7.50 [facility] Comment on above: Order Comment: Speci men Type: BLOOD SPECIMENOrdering Facility: [facility] Address: [address] [place] [address] Performed By: #### 5 7021-8 ####[facility] [place] LABCLIA [id number] [place] [address] [place] Neutrophils/100 WBC (Bld) 54.6 % Normal [facility] Comment on above: Order Comment: Speci men Type: BLOOD SPECIMENOrdering Facility: [facility] Address: [address] [place] [address] Performed By: #### 5 7021-8 ####[facility] [place] LABCLIA [id number] [facility] [place] [address] [place] Nucleated RBC (Bld) [#/Vol] Normal [facility] Comment on above: Order Comment: Speci men Type: BLOOD SPECIMENOrdering Facility: [facility] Address: [address] [place] [address] Performed By: #### 5 7021-8 ####[facility] [place] LABCLIA [id number] [facility] [place] [address] [place] Nucleated RBC/100 WBC (Bld) [Ratio] Normal [facility] Comment on above: Order Comment: Speci men Type: BLOOD SPECIMENOrdering Facility: [facility] Address: [address] [place] [address] Performed By: #### 5 7021-8 ####[facility] [place] LABCLIA [id number] [place] [address] [place] Platelet mean volume (Bld) [Entitic vol] 12.3 fL Normal 9.0-12.7 [facility] Comment on above: Order Comment: Speci men Type: BLOOD SPECIMENOrdering Facility: [facility] Address: [address] [place] [address] Performed By: #### 5 7021-8 ####[facility] [place] LABCLIA [id number] [place] [address] [place] Platelets (Bld) [#/Vol] 121 10*3/uL Low 150-400 [facility] Comment on above: Order Comment: Speci men Type: BLOOD SPECIMENOrdering Facility: [facility] Address: [address] [place] [address] Performed By: #### 5 7021-8 ####[facility] LABCLIA [id number] [facility] [place] [address] [place] RBC (Bld) [#/Vol] 1.78 10*6/uL Low 4.20-6.00 [facility] Comment on above: Order Comment: Speci men Type: BLOOD SPECIMENOrdering Facility: [facility] Address: [address] [place] [address] Performed By: #### 5 7021-8 ####[facility] LABCLIA [id number] [facility] [place] [address] [place] WBC (Bld) [#/Vol] 4.18 10*3/uL Normal 3.70-11.00 [facility] Comment on above: Order Comment: Speci men Type: BLOOD SPECIMENOrdering Facility: [facility] Address: [address] [place] [address] Performed By: #### 5 7021-8 ####[facility] [place] LABCLIA [id number] [place] [address] [place] CNPNon 09-13-2023 CNPN Normal [facility] CBC W Auto Differential pane l (Bld)on 08-23-2023 Basophils (Bld) [#/Vol] [facility] Basophils/100 WBC (Bld) 0.5 % [facility] Differential cell count method Nom (Bld) Auto [facility] Eosinophils (Bld) [#/Vol] [facility] Eosinophils/100 WBC (Bld) 0.5 % [facility] Erythrocyte distribution width (RBC) [Ratio] 16.3 % High 11.5 - 15.0 % [facility] Hematocrit (Bld) [Volume fraction] 22.2 % Low 39.0 - 51.0 % [facility] Hemoglobin (Bld) [Mass/Vol] 7.3 g/dL Low 13.0 - 17.0 g/dL [facility] Immature granulocytes (Bld) [#/Vol] [facility] Immature granulocytes/100 WBC (Bld) 0.2 % [facility] Interpretation and review of laboratory results Abnormal [facility] Lymphocytes (Bld) [#/Vol] 1.59 10*3/uL [facility] Lymphocytes/100 WBC (Bld) 38.4 % [facility] MCH (RBC) [Entitic mass] 40.3 pg High 26.0 - 34.0 pg [facility] MCHC (RBC) [Mass/Vol] 32.9 g/dL 30.5 - 36.0 g/dL [facility] MCV (RBC) [Entitic vol] 122.7 fL High 80.0 - 100.0 fL [facility] Monocytes (Bld) [#/Vol] 0.21 10*3/uL [facility] Monocytes/100 WBC (Bld) 5.1 % [facility] Neutrophils (Bld) [#/Vol] 2.29 10*3/uL [facility] Neutrophils/100 WBC (Bld) 55.3 % [facility] Nucleated RBC (Bld) [#/Vol] [facility] Nucleated RBC/100 WBC (Bld) [Ratio] [facility] Platelet mean volume (Bld) [Entitic vol] 12.4 fL 9.0 - 12.7 fL [facility] Platelets (Bld) [#/Vol] 115 10*3/uL Low [facility] RBC (Bld) [#/Vol] 1.81 10*6/uL Low 4.20 - 6.0 0 m/uL [facility] WBC (Bld) [#/Vol] 4.14 10*3/uL [facility] Basophils (Bld) [#/Vol] 10*3/uL Normal <0.11 [facility] Comment on above: Order Comment: Speci men Type: BLOOD SPECIMENOrdering Facility: [facility] Address: [address] [place] [address] Performed By: #### 5 7021-8 ####[facility] [place] LABCLIA [id number] [facility] [place] [address] [place] Basophils/100 WBC (Bld) 0.5 % Normal [facility] Comment on above: Order Comment: Speci men Type: BLOOD SPECIMENOrdering Facility: [facility] Address: [address] [place] [address] Performed By: #### 5 7021-8 ####[facility] [place] LABCLIA [id number] [place] [address] [place] Differential cell count method Nom (Bld) Auto Normal [facility] Comment on above: Order Comment: Speci men Type: BLOOD SPECIMENOrdering Facility: [facility] Address: [address] [place] [address] Performed By: #### 5 7021-8 ####[facility] [place] LABCLIA [id number] [place] [address] [place] Eosinophils (Bld) [#/Vol] 10*3/uL Normal <0.46 [facility] Comment on above: Order Comment: Speci men Type: BLOOD SPECIMENOrdering Facility: [facility] Address: [address] [place] [address] Performed By: #### 5 7021-8 ####[facility] [place] LABCLIA [id number] [place] [address] [place] Eosinophils/100 WBC (Bld) 0.5 % Normal [facility] Comment on above: Order Comment: Speci men Type: BLOOD SPECIMENOrdering Facility: [facility] Address: [address] [place] [address] Performed By: #### 5 7021-8 ####[facility] [place] LABCLIA [id number] [facility] [place] [address] [place] Erythrocyte distribution width (RBC) [Ratio] 16.3 % High 11.5-15.0 [facility] Comment on above: Order Comment: Speci men Type: BLOOD SPECIMENOrdering Facility: [facility] Address: [address] [place] [address] Performed By: #### 5 7021-8 ####[facility] [place] LABCLIA [id number] [facility] [place] [address] [place] Hematocrit (Bld) [Volume fraction] 22.2 % Low 39.0-51.0 [facility] Comment on above: Order Comment: Speci men Type: BLOOD SPECIMENOrdering Facility: [facility] Address: [address] [place] [address] Performed By: #### 5 7021-8 ####[facility] [place] LABCLIA [id number] [place] [address] [place] Hemoglobin (Bld) [Mass/Vol] 7.3 g/dL Low 13.0-17.0 [facility] Comment on above: Order Comment: Speci men Type: BLOOD SPECIMENOrdering Facility: [facility] Address: [address] [place] [address] Performed By: #### 5 7021-8 ####[facility] [place] LABCLIA [id number] [place] [address] [place] Immature granulocytes (Bld) [#/Vol] 10*3/uL Normal <0.10 [facility] Comment on above: Order Comment: Speci men Type: BLOOD SPECIMENOrdering Facility: [facility] Address: [address] [place] [address] Performed By: #### 5 7021-8 ####[facility] [place] LABCLIA [id number] [facility] [place] [address] [facility] [place] Immature granulocytes/100 WBC (Bld) 0.2 % Normal [facility] Comment on above: Order Comment: Speci men Type: BLOOD SPECIMENOrdering Facility: [facility] Address: [address] [place] [address] Performed By: #### 5 7021-8 ####[facility] [place] LABCLIA [id number] [place] [address] [place] Lymphocytes (Bld) [#/Vol] 1.59 10*3/uL Normal 1.00-4.00 [facility] Comment on above: Order Comment: Speci men Type: BLOOD SPECIMENOrdering Facility: [facility] Address: [address] [place] [address] Performed By: #### 5 7021-8 ####[facility] [place] LABCLIA [id number] [place] [address] [facility] [place] Lymphocytes/100 WBC (Bld) 38.4 % Normal [facility] Comment on above: Order Comment: Speci men Type: BLOOD SPECIMENOrdering Facility: [facility] Address: [address] [place] [address] Performed By: #### 5 7021-8 ####[facility] LABCLIA [id number] [place] [address] [place] MCH (RBC) [Entitic mass] 40.3 pg High 26.0-34.0 [facility] Comment on above: Order Comment: Speci men Type: BLOOD SPECIMENOrdering Facility: [facility] Address: [address] [place] [address] Performed By: #### 5 7021-8 ####[facility] [place] LABCLIA [id number] [place] [address] [place] MCHC (RBC) [Mass/Vol] 32.9 g/dL Normal 30.5-36.0 [facility] Comment on above: Order Comment: Speci men Type: BLOOD SPECIMENOrdering Facility: [facility] Address: [address] [place] [address] Performed By: #### 5 7021-8 ####[facility] [place] LABCLIA [id number] [place] [address] [place] MCV (RBC) [Entitic vol] 122.7 fL High 80.0-100.0 [facility] Comment on above: Order Comment: Speci men Type: BLOOD SPECIMENOrdering Facility: [facility] Address: [address] [place] [address] Performed By: #### 5 7021-8 ####[facility] [place] LABCLIA [id number] [place] [address] [place] Monocytes (Bld) [#/Vol] 0.21 10*3/uL Normal <0.87 [facility] Comment on above: Order Comment: Speci men Type: BLOOD SPECIMENOrdering Facility: [facility] Address: [address] [place] [address] Performed By: #### 5 7021-8 ####[facility] LABCLIA [id number] [address] Monocytes/100 WBC (Bld) 5.1 % Normal [facility] Comment on above: Order Comment: Speci men Type: BLOOD SPECIMENOrdering Facility: [facility] Address: [address] [place] [address] Performed By: #### 5 7021-8 ####[facility] LABCLIA [id number] [place], [place] [address] [place] [address] [place] Neutrophils (Bld) [#/Vol] 2.29 10*3/uL Normal 1.45-7.50 [facility] Comment on above: Order Comment: Speci men Type: BLOOD SPECIMENOrdering Facility: [facility] Address: [facility] [place] [place] [address] Performed By: #### 5 7021-8 ####[facility] [place] LABCLIA [id number] [address] Neutrophils/100 WBC (Bld) 55.3 % Normal [facility] Comment on above: Order Comment: Speci men Type: BLOOD SPECIMENOrdering Facility: [facility] Address: [address] [place] [address] Performed By: #### 5 7021-8 ####[facility] [place] LABCLIA [id number] [place] [address] [place] Nucleated RBC (Bld) [#/Vol] Normal [facility] Comment on above: Order Comment: Speci men Type: BLOOD SPECIMENOrdering Facility: [facility] Address: [address] [place] [address] Performed By: #### 5 7021-8 ####[facility] [place] LABCLIA [id number] [place] [address] [place] Nucleated RBC/100 WBC (Bld) [Ratio] Normal [facility] Comment on above: Order Comment: Speci men Type: BLOOD SPECIMENOrdering Facility: [facility] Address: [address] [place] [address] Performed By: #### 5 7021-8 ####[facility] [place] LABCLIA [id number] [place] [address] [place] Platelet mean volume (Bld) [Entitic vol] 12.4 fL Normal 9.0-12.7 [facility] Comment on above: Order Comment: Speci men Type: BLOOD SPECIMENOrdering Facility: [facility] Address: [address] [place] [address] Performed By: #### 5 7021-8 ####[facility] [place] LABCLIA [id number] [place] [address] [place] Platelets (Bld) [#/Vol] 115 10*3/uL Low 150-400 [facility] Comment on above: Order Comment: Speci men Type: BLOOD SPECIMENOrdering Facility: [facility] Address: [address] [place] [address] Performed By: #### 5 7021-8 ####[facility] [place] LABCLIA [id number] [place] [address] [place] RBC (Bld) [#/Vol] 1.81 10*6/uL Low 4.20-6.00 [facility] Comment on above: Order Comment: Speci men Type: BLOOD SPECIMENOrdering Facility: [facility] Address: [address] [place] [address] Performed By: #### 5 7021-8 ####[facility] LABCLIA [id number] [place] [address] [place] WBC (Bld) [#/Vol] 4.14 10*3/uL Normal 3.70-11.00 [facility] Comment on above: Order Comment: Speci men Type: BLOOD SPECIMENOrdering Facility: [facility] Address: [address] [place] [address] Performed By: #### 5 7021-8 ####[facility] LABCLIA [id number] [place] [address] [place] CNPNon 08-23-2023 CNPN Normal [facility] TYPE + SCREENon 08-23-2023 ABO group Nom (Bld) B [facility] Blood group antibody screen Ql Negative [facility] HIstorical Ab Scr Status Negative [facility] Rh Nom (Bld) Positive [facility] Type and Screen Expiration 08/26/2023 23:59 [facility] ABO B Normal [facility] Comment on above: Order Comment: Speci men Type: BLOOD SPECIMENOrdering Facility: [facility] Address: [address] [place] [address] Performed By: #### T SCR ####[facility] BLOOD BANKCLIA [id number] [address] STATES OF [facility] HISTORICAL AB SCR STATUS Negative Normal [facility] Comment on above: Order Comment: Speci men Type: BLOOD SPECIMENOrdering Facility: [facility] Address: [address] [place] [address] Performed By: #### T SCR ####[facility] BLOOD BANKCLIA [id number] [address] [place] Rh Nom (Bld) Positive Normal [facility] Comment on above: Order Comment: Speci men Type: BLOOD SPECIMENOrdering Facility: [facility] Address: [address] [place], [place] [address], [place] [address] Performed By: #### T SCR ####[facility] BLOOD BANKCLIA [id number] [place] [address] [facility] TYPE AND SCREEN EXPIRATION 08/26/2023 23:59 Normal [facility] Comment on above: Order Comment: Speci men Type: BLOOD SPECIMENOrdering Facility: [facility] Address: [address] [place] [address] Performed By: #### T SCR ####[facility] BLOOD BANKCLIA [id number] [place] [address] [facility] Endocrinology Visit Reporton 08-20-2023 Endocrinology Visit Report [facility] [address] [place] [address] OFFICE VISIT Date of Service: 08/20/23 MR#: [id number] Acct: [id number] Name: JOSS OROPEZA Lesly Rep #: [id number] : 1945 Provider: Asha Johnson Age/Sex: 78/M Location[facility] Status: Signed Intake Vital Signs 01/29/23 14:31 08/20/23 14:47 Height 5 ft 9.5 in 5 ft 7 in Weight: 219 lb 216 lb BMI 31.8 33.8 BP 156/62 H 146/86 H Blood Pressure Location Rt brachial Lt brachial Position Sitting Sitting Respiration 16 Pulse 78 75 Pulse Source Monitor Temp 98.3 F Temp Source Temporal Pulse Oximetry (%) 97 95 Oxygen Delivery Method room air room air Intake Visit Reasons: 6 M FU, NS 05/22 Chief Complaint: Diabetes Professional Organizer Required: No Accompanied by: Self Is patient in pain?: No Allergies cefepime Allergy (Verified 01/29/23 14:38) Rash Medications ???Medication ???Instructions ???Recorded ???Confirmed ???Type aspirin 81 mg chewable tablet 1 tab PO DAILY heart health 07/11/16 08/20/23 History cyanocobalamin (vitamin B-12) 500 500 mcg PO DAILY supplement 07/11/16 08/20/23 History mcg tablet multivitamin 1 tab PO DAILY supplement 07/11/16 08/20/23 History finasteride 5 mg tablet (Proscar) 5 mg PO DAILY prostate 07/10/18 08/20/23 History tamsulosin 0.4 mg capsule 0.4 mg PO DAILY urinary issues 07/10/18 08/20/23 History alendronate 70 mg tablet (Fosamax) 70 mg PO QWEEK 10/07/18 08/20/23 History rosuvastatin 10 mg tablet 1 tab PO DAILY 09/05/21 08/20/23 History glimepiride 4 mg tablet 4 mg PO BID #180 tabs 08/20/23 08/20/23 Rx insulin glargine 100 unit/mL (3 27 unit (0.27 mL) subcut QPM #15 mL 08/20/23 08/20/23 Rx mL) subcutaneous pen (Basaglar KwikPen U-100 Insulin) pen needle, diabetic 32 gauge x #50 ea 08/20/23 08/20/23 Rx /32 (BD Ultra-Fine Cristal Pen Needle) Have you fallen in the past year?: No PFSH Medical History Anemia Cellulitis Chronic pain Complaint of melena Diabetes Diastasis recti Diverticulitis DM2 (diabetes mellitus, type 2) Enlarged prostate Hepatomegaly Herniation of nucleus pulposus Hiccups HTN (hypertension) Hyperlipidemia Leukocytosis Lower back pain Lumbar disc disease Macrocytic anemia Obesity Osteoarthritis Osteoporosis Testosterone deficiency TIA (transient ischemic attack) Ventral hernia Vomiting Wears glasses Surgical History History of back surgery History of cholecystectomy History of colonoscopy ( 2006) History of rotator cuff surgery Family History Father COPD (chronic obstructive pulmonary disease) Mother Heart disease CHF (congestive heart failure) Other Alcohol abuse Arthritis Blood clot in vein Breast cancer CVA (cerebral vascular accident) Cancer Diabetes Myocardial infarction Skin cancer Thyroid disorder Social History Smoking Status: Never smoker alcohol intake: current alcohol intake frequency: holidays/special occasions only substance use type: does not use what type of physical activity do you participate in: other frequency: other HPI HPI Chief Complaint: Diabetes Details: JOSS OROPEZA, is a 78 M who presents to the office today for follow up. A1C is 7.4% He is taking glimepiride and Basaglar. He is taking statin. He has osteoporosis and is taking alendronate. Exam Const General: cooperative, healthy appearing, comfortable, no acute distress, well developed and not cushingoid Nutritional Appearance: well nourished Orientation: alert, awake and oriented x3 HENMT Head: normal to inspection Ears: hearing grossly normal bilaterally Nose: external nose normal Mouth: oral mucosae normal Eyes General: appearance normal, both eyes and all related structures Alignment and Position: alignment normal Periorbital: periorbital findings normal Eyelids: eyelids normal Conjunctivae: conjunctivae normal Neck Neck: normal visual inspection Neck mass: No Thyroid: thyroid normal Lymphatic: no lymphadenopathy noted Chest Chest palpation inspection: normal inspection of the chest Resp Effort Inspection: normal respiratory effort, able to speak in complete sentences, symmetric chest movement, no audible wheezes and no cough Cardio Rate: regular rate Rhythm: regular rhythm GI Inspection: normal to inspection Skin General: no rashes or lesions noted Neuro General: patient alert, patient awake and patient oriented x3 Cranial Nerves: CN's II-XI intact bilaterally Cognition: normal cognition Speech: speech normal Gait: (more content not included)... Normal [facility] CBC W Auto Differential pane l (Bld)on 08-02-2023 Basophils (Bld) [#/Vol] [facility] Basophils/100 WBC (Bld) 0.2 % [facility] Differential cell count method Nom (Bld) Auto [facility] Eosinophils (Bld) [#/Vol] [facility] Eosinophils/100 WBC (Bld) 0.2 % [facility] Erythrocyte distribution width (RBC) [Ratio] 16.3 % High 11.5 - 15.0 % [facility] Hematocrit (Bld) [Volume fraction] 23.5 % Low 39.0 - 51.0 % [facility] Hemoglobin (Bld) [Mass/Vol] 7.7 g/dL Low 13.0 - 17.0 g/dL [facility] Immature granulocytes (Bld) [#/Vol] [facility] Immature granulocytes/100 WBC (Bld) 0.2 % [facility] Interpretation and review of laboratory results Abnormal [facility] Lymphocytes (Bld) [#/Vol] 1.81 10*3/uL [facility] Lymphocytes/100 WBC (Bld) 43.0 % [facility] MCH (RBC) [Entitic mass] 40.5 pg High 26.0 - 34.0 pg [facility] MCHC (RBC) [Mass/Vol] 32.8 g/dL 30.5 - 36.0 g/dL [facility] MCV (RBC) [Entitic vol] 123.7 fL High 80.0 - 100.0 fL [facility] Monocytes (Bld) [#/Vol] 0.23 10*3/uL [facility] Monocytes/100 WBC (Bld) 5.5 % [facility] Neutrophils (Bld) [#/Vol] 2.14 10*3/uL [facility] Neutrophils/100 WBC (Bld) 50.9 % [facility] Nucleated RBC (Bld) [#/Vol] [facility] Nucleated RBC/100 WBC (Bld) [Ratio] [facility] Platelet mean volume (Bld) [Entitic vol] 11.9 fL 9.0 - 12.7 fL [facility] Platelets (Bld) [#/Vol] 128 10*3/uL Low [facility] RBC (Bld) [#/Vol] 1.90 10*6/uL Low 4.20 - 6.0 0 m/uL [facility] WBC (Bld) [#/Vol] 4.21 10*3/uL [facility] CBC W Auto Differential pane l (Bld)on 07-12-2023 Anisocytosis Ql (Bld) Present [facility] Basophils (Bld) [#/Vol] 0.00 10*3/uL [facility] Basophils/100 WBC (Bld) 0.0 % [facility] Differential cell count method Nom (Bld) Manual [facility] Eosinophils (Bld) [#/Vol] 0.00 10*3/uL [facility] Eosinophils/100 WBC (Bld) 0.0 % [facility] Erythrocyte distribution width (RBC) [Ratio] 15.9 % High 11.5 - 15.0 % [facility] Hematocrit (Bld) [Volume fraction] 22.6 % Low 39.0 - 51.0 % [facility] Hemoglobin (Bld) [Mass/Vol] 7.4 g/dL Low 13.0 - 17.0 g/dL [facility] Interpretation and review of laboratory results Abnormal [facility] Lymphocytes (Bld) [#/Vol] 1.40 10*3/uL [facility] Lymphocytes/100 WBC (Bld) 50.0 % [facility] MCH (RBC) [Entitic mass] 40.4 pg High 26.0 - 34.0 pg [facility] MCHC (RBC) [Mass/Vol] 32.7 g/dL 30.5 - 36.0 g/dL [facility] MCV (RBC) [Entitic vol] 123.5 fL High 80.0 - 100.0 fL [facility] Monocytes (Bld) [#/Vol] 0.06 10*3/uL [facility] Monocytes/100 WBC (Bld) 2.0 % [facility] Neutrophils (Bld) [#/Vol] 1.34 10*3/uL Low [facility] Neutrophils/100 WBC (Bld) 48.0 % [facility] Nucleated RBC (Bld) [#/Vol] [facility] Nucleated RBC/100 WBC (Bld) [Ratio] 0.0 % /100 WBC [facility] Platelet mean volume (Bld) [Entitic vol] 11.2 fL 9.0 - 12.7 fL [facility] Platelets (Bld) [#/Vol] 100 10*3/uL Low [facility] Platelets Estimate (Bld) [#/Vol] Decreased [facility] Polychromasia LM Ql (Bld) Slight [facility] RBC (Bld) [#/Vol] 1.83 10*6/uL Low 4.20 - 6.0 0 m/uL [facility] Red Cell Morph Reviewed: see result s of individual morphologies [facility] WBC (Bld) [#/Vol] 2.80 10*3/uL Low [facility] This is an appended report. These results have been appended to a previously verified report. [facility] TYPE + SCREENon 07-12-2023 ABO group Nom (Bld) B [facility] Blood group antibody screen Ql Negative [facility] HIstorical Ab Scr Status Negative [facility] Rh Nom (Bld) Positive [facility] Type and Screen Expiration 07/15/2023 23:59 [facility] CNDSon 06-10-2023 CNDS HNO ID: [id number] Author: BRENDA GUO APRN.CNP Service: Hospital Medicine Author Type: Nurse Practitioner Type: Discharge Summary Filed: 06/18/2023 14:03 Note Text: DISCHARGE NOTE (Patient Admitted Less than 48 Hours) SERVICE DATE: 06/10/2023 SERVICE TIME: 2:03 PM ADMISSION DATE: 06/08/2023 DISCHARGE DISPOSITION: Home with Self Care Patient Active Hospital Problem List: 1. TIA (transient ischemic attack) DAPT with plavix + ASA 81 mg x 21 days, then ASA 81 mg alone Continue statin at current dosing - LDL 19 Echo done prior to discharge Neuro follow up in 1-2 weeks Zio patch at discharge 2. Diabetes (HCC) POA: Yes HgA1c 9.2 - uncontrolled Monitored by PCP, states he is making recent diet adjustments that have improved blood glucose over last week, likely not fully reflected in HgA1c Continue home lantus, metformin, sitagliptin and glimeperide - see PCP for recheck 3. Dyslipidemia POA: Yes Continue current crestor 10 mg - LDL 19 4. BPH (benign prostatic hyperplasia) POA: Yes Continue flomax 5. Anemia POA: Yes Stable, chronic - follows with hematology 6. Dyspnea on exertion Stress today was low risk Echo pending - can be followed as outpatient Discharge Physical Exam: VITAL SIGNS: BP 143/62 Pulse 61 Temp 36.7 ?C (98.1 ?F) (Oral) Resp 17 Ht 175.3 cm (5' 9) Wt 94.7 kg (208 lb 11.2 oz) SpO2 97% BMI 30.82 kg/m? GENERAL: Alert, no distress, cooperative SKIN: Skin color, texture, turgor grossly normal HEAD/SINUSES: No significant findings EYES: PERRLA, EOMI OROPHARYNX: Lips, mucosa, and tongue normal. Oropharynx normal NECK: Supple BACK: Back symmetric, Normal curvature, ROM normal LUNGS: Lungs clear to auscultation, Good diaphragmatic excursion CARDIAC: Normal S1 and S2 EXTREMITIES: Extremities grossly normal, no edema NEURO: Grossly normal cognition, motor function, and cranial nerves III-XII No arm drift, smooth finger to nose bilaterally DIET: Diabetic, Low salt, low cholesterol ACTIVITY AFTER DISCHARGE: Resume pre-hospital activity FOLLOW UP CARE REQUIRED: Follow up with neuro 0-2 weeks, follow up with PCP 1 week DISCHARGE MEDICATIONS: Medication List START taking these medications clopidogrel 75 mg tablet Commonly known as: PLAVIX Take 1 tablet by mouth once daily for 19 doses. Start taking on: June 11, 2023 CONTINUE taking these medications alendronate 70 mg tablet Commonly known as: FOSAMAX aspirin 81 mg chewable tablet FELIPEAGLMARGIE VAZQUEZ U-100 INSULIN 100 unit/mL (3 mL) Generic drug: insulin glargine BD CRISTAL 2ND GEN PEN NEEDLE 32 gauge x Generic drug: Insulin [place] (Disposable) cyanocobalamin 1,000 mcg Tab Commonly known as: VITAMIN B-12 finasteride 0.1% minoxidil 7.5% topical solution (CPD) finasteride 5 mg tablet Commonly known as: PROSCAR glimepiride 4 mg tablet Commonly known as: AMARYL MEN'S MULTI-VITAMIN ORAL metFORMIN 1,000 mg tablet Commonly known as: GLUCOPHAGE rosuvastatin 10 mg tablet Commonly known as: CRESTOR Take 1 tablet by mouth daily at bedtime. SITagliptin 100 mg tablet Commonly known as: ZITUVIO tamsulosin 0.4 mg Commonly known as: FLOMAX Where to Get Your Medications These medications were sent to [facility] [address] [place] [address] - [phone] [place] [address] clopidogrel 75 mg tablet FINAL DIAGNOSIS: TIA, uncontrolled DM Plan of care discussed with Provider, RN, Patient I have performed the epwf-di-[id number] and relevant services for a total of < 30 minutes. SIGNATURE: Brenda Guo APRN.CNP PATIENT NAME: Joss Oropeza DATE: June 10, 2023 TIME: 2:03 PM [facility] CONSULT PROGon 06-10-2023 CONSULT PROG HNO ID: [id number] Author: SRAVANTHI SUAREZ APRN.CNP Service: Neurology General Author Type: Nurse Practitioner Type: Consult Progress Note Filed: 06/10/2023 12:02 Note Text: NEURO STROKE CONSULT PROGRESS NOTE SERVICE DATE: 06/10/2023 SERVICE TIME: 1030 Subjective INTERVAL HISTORY: stable, eeg wnl. MEDICATIONS Current Facility-Administered Medications Medication Dose Route Frequency NaCl 0.9% iv flush bag 20 mL INTRAVENOUS PRN acetaminophen 650 mg tab(s) (TYLENOL) 650 mg ORAL/FEEDING TUBE q 4 H PRN ondansetron (PF) 4 mg injection (ZOFRAN) 4 mg INTRAVENOUS q 6 H PRN sodium chloride 0.9 % (flush) 2-10 mL (BD POSIFLUSH) 2-10 mL INTRAVENOUS DIRECTED PRN And perflutren lipid microspheres 1.1 mg/mL 1.3 mL injection (DEFINITY) 1.3 mL INTRAVENOUS DIRECTED PRN glimepiride 4 mg tab(s) (AMARYL) 4 mg ORAL BID w MEALS rosuvastatin 10 mg tab(s) (CRESTOR) 10 mg ORAL AT BEDTIME finasteride 5 mg tab(s) (PROSCAR) 5 mg ORAL DAILY tamsulosin 0.4 mg cap(s) (FLOMAX) 0.4 mg ORAL BID insulin glargine 25 Units pen (long acting) 25 Units SUBCUTANEOUS DAILY (8 AM) aspirin 81 mg chewable tab(s) 81 mg ORAL DAILY cyanocobalamin 1,000 mcg (VITAMIN B-12) 1,000 mcg ORAL DAILY dextrose 40 % 15 g 15 g ORAL PRN Or glucagon 1 mg injection 1 mg INTRAMUSCULAR PRN Or dextrose 10% iv bolus 12.5 g INTRAVENOUS PRN insulin lispro injection (rapid acting) (ADMElog) SUBCUTANEOUS w MEALS AND HS clopidogrel 75 mg tab(s) (PLAVIX) 75 mg ORAL DAILY Objective PHYSICAL EXAM Vital Signs: BP 143/62 Pulse 61 Temp 36.7 ?C (98.1 ?F) (Oral) Resp 17 Ht 175.3 cm (5' 9) Wt 94.7 kg (208 lb 11.2 oz) SpO2 97% BMI 30.82 kg/m? NEUROLOGICAL: LOC: 0 - alert and responsive 0 LOC Questions: 0 - both correct 0 LOC Commands: 0 - both correct 0 Best Gaze: 0 - normal gaze 0 Visual: 0 - no visual loss 0 Facial Palsy: 0 - normal 0 Motor Left Arm: 0 - no drift 0 Motor Right Arm: 0 - no drift 0 Motor Left Le - no drift 0 Motor Right Le - no drift 0 Limb Ataxia: 0 - no ataxia (or aphasic, hemiplegic) 0 Sensory: 0 - normal 0 Best Language: 0 - normal 0 Dysarthria: 0 - normal 0 Extinction and Inattention: 0 - normal, none detected (or visual loss alone) 0 Daily NIHSS Score: 0 (06/10/23 1030 : Sravanthi Suarez APRN.ECHOCARDIOLOGIST) 0 MENTAL STATUS: Alert, oriented to person, place and time, Follows commands, and Speech fluent and appropriate CRANIAL NERVES: PERRLA, EOM's intact, Visual carnes intact to confrontation, Extraocular movements intact, Facial sensation intact, Face symmetric, No facial droop or ptosis, Hearing intact to finger rub bilaterally, No dysarthria, Palate elevates symmetrically, Tongue protrudes midline, and Shoulder shrug intact and symmetric MOTOR: No drift and Normal tone MOTOR STRENGTH: Upper and lower extremity 5/5 bilaterally SENSATION: Intact light touch COORDINATION: Finger-to- nose-finger intact bilaterally GAIT: Not assessed DATA: Diagnostic tests reviewed for today's visit: Lipids, HbA1c, Recent Labs 06/09/23 0636 06/08/23 1711 CHOL -- 115 HDL -- 39* LDL -- 19 TG -- 284* HBA1C 9.2* -- Most recent labs and imaging results. MEDICAL EVENTS: No medical events have been recorded. STROKE 9 CARE AND PREVENTION CHECKLIST 1. Is the patient currently on an ANTITHROMBOTIC medication (Antiplatelet or Anticoagulant): Aspirin, Clopidogrel 2. Does the patient have known AFIB/FLUTTER: No 3. Is the patient on a STATIN: Other medication (crestor 10 mg) 4. Is the patient on VTE prophylaxis: Mechanical prophylaxis Mechanical intervention type: Intermittent compression stocking(s) 5. GLYCEMIC Control Medications: BG needs further management 6. Stroke BP Goals: SBP <140 Stroke BP Control: BP well controlled 7. Stroke IVF/Nutrition: Diet 8. TEMPERATURE Control: Normothermic 9. Does the patient need THERAPY: No Reason for no therapy orders: Patient is at baseline, no therapy needed Stroke Care and Prevention (personally reviewed by Sravanthi Suarez APRN.ECHOCARDIOLOGIST): Daily Rounding Date: 06/10/23 Daily Rounding Time: 103 PROBLEM LIST: Principal Problem: TIA (transient ischemic attack) (POA: Yes) Active Problems: Anemia (POA: Yes) Diabetes (HCC) (POA: Yes) Dyslipidemia (POA: Yes) BPH (benign prostatic hyperplasia) (POA: Yes) Expressive aphasia (POA: Yes) Resolved Problems: * No resolved hospital problems. * Impression/Recommendations IMPRESSION Joss Oropeza is a 78 year old, male, patient. MRI brain no stroke Concern for probable TIA 20 minute eeg wnl Already on aspirin and statin LDL 19, no need to increase statin A1c 9.2 which could be likely cause for TIA Stroke Mechanism Stroke Mechanism - LIP ENTRY ONLY Ischemic Stroke or TIA: Transient Ischemic Attack TIA Level of Certainty: Probable Daily NIHSS Score: 0 PLAN Needs improved diabetic control Continue aspirin Plavix for 21 days total then discontinue (more content not included)... Normal [facility] ECHOon 06-10-2023 Echocardiography Echocardiography Rep ort: Transthoracic Echo [facility] Date of service: 06/10/2023 2:16:23 PM Ordering physician: FRANKLYN HER Indication: TIA Technologist: Rowena Kemp [facility] Interpreting physician: Philip Smith MD PATIENT: Name: JOSS OROPEZA : 1945 Age: 78 years Gender: M History of valvular heart disease, diabetes mellitus and dyslipidemia. Primary rhythm: sinus. Height: 175.30 cm BSA: 2.15 m Weight: 94.67 kg BMI: 30.8 kg/m Heart rate 65 bpm Blood pressure 143/62 mmHg Technically difficult exam due to body habitus. Color Doppler was utilized to interrogate the cardiac valves assessed and spectral Doppler was utilized to determine the flow velocities and pressure gradients reported in this exam. MEASUREMENTS: Value Indexed Normal Max aortic dimension 3.7 cm Ao < 3.8 Left atrium diameter 3.8 cm (M-Mode) Left atrial volume 45 ml (biplane A-L) 21 ml/m Santiago <= 34 LV ID (diastole) 3.6 cm (2D) 1.68 cm/m LV ID (systole) 2.5 cm (2D) 1.16 cm/m IVS, leaflet tips 1.2 cm (2D) Posterior wall thickness 1.3 cm (2D) Left ventricular mass 151 g (2D) 70 g/m LV stroke volume 52 ml (2D biplane) LVOT stroke volume 61 ml 29 ml/m LV end diastolic volume 95 ml (2D biplane) 44.1 ml/m 34<=EDVi<75 LV end systolic volume 43 ml (2D biplane) 19.9 ml/m Ejection Fraction 55 % (2D biplane) EF > 52 FINDINGS: LEFT VENTRICLE The left ventricle is normal in size. Left ventricular systolic function is normal. Grade I left ventricular diastolic dysfunction. Mitral annular lateral E/e': 10.9. Mitral annular septal E/e': 12.7. Wall Motion: All scored segments are normal. RIGHT VENTRICLE The right ventricle is normal in size. Right ventricular systolic function is normal. RV systolic tissue Doppler velocity is 17.1 cm/s. Tricuspid annular displacement is 1.7 cm. Estimated right ventricular systolic pressure is not reported due to an insufficient tricuspid regurgitation signal. Estimated right atrial pressure is 8 mmHg based on IVC assessment. LEFT ATRIUM The left atrial cavity is normal in size. RIGHT ATRIUM The right atrial cavity is normal in size. Inferior Vena Cava: The inferior vena cava appears normal measuring 1.9 cm. The vessel decreases less than 50 percent with inspiration. MITRAL VALVE The mitral valve leaflets are structurally normal. There is trace mitral valve regurgitation. The pressure half time is 100 msec. The peak mitral E/A ratio is 0.70. The average mitral E/e' ratio is 11.8. The mitral flow deceleration time is 346 msec. TRICUSPID VALVE The tricuspid valve leaflets are structurally normal. There is trace tricuspid valve regurgitation. The hepatic venous pattern showed normal systolic flow. AORTIC VALVE There is mild aortic valve stenosis caused by calcified valve and restricted opening. There is trace (trace - 1+) aortic valve regurgitation due to paravalvular calcification. There is mild calcification of the non coronary, left and right aortic cusps at the body. The peak gradient is 26 mmHg (peak velocity = 254.5 cm/s). The mean gradient is 13 mmHg. The LVOT mean velocity is 63.9 cm/s. The LVOT diameter is 2.0 cm. The aortic VTI is 45.2 cm. The mean velocity in the aortic valve is 167.0 cm/s. The dimensionless valve index is 0.41. AV area is 1.34 cm (0.62 cm /m ) by continuity, VTI. The LVOT stroke volume index is 29 ml/m . PULMONIC VALVE The pulmonic valve was not seen or not interrogated. There is trace pulmonic valve regurgitation. The peak gradient is 6 mmHg. AORTA The visualized aorta is normal in size. Measurements - Aortic valve annulus 2.0 cm. Sinus: 3.7 cm. Sinotubular junction 2.6 cm. Mid ascending aorta 3.3 cm. PERICARDIUM There is no pericardial effusion. CONCLUSIONS: - Technically difficult exam due to body habitus. - Exam indication: TIA - The left ventricle is normal in size. Left ventricular systolic function is normal. EF = 55 5% (2D biplane) Grade I left ventricular diastolic dysfunction. - The right ventricle is normal in size. Right ventricular systolic function is normal. - Aortic valve sclerosis without stenosis. - Exam was compared with the prior CC echocardiographic exam performed on 06/25/2020, there is no significant change. * * * Final * * * [employer] : [id number] Normal [facility] NM CARDIAC PERF STRESS/PHARM on 06-10-2023 NM CARDIAC PERF STRESS/PHARM * * *Final Report* * * DATE OF EXAM: Jun 10 2023 10:32AM FVN 0006 - NM CARDIAC PERF STRESS/PHARM / PROCEDURE REASON: Chest pain/anginal equiv, high CAD risk, not treadmill candidate * * * * Physician Interpretation * * * * Stress Store Protection Specialist Report: [facility] Date of service: 06/10/2023 8:22:28 AM Supervising physician: Philip Smith MD PATIENT: Name: JOSS OROPEZA Age: 78 years Gender: M * * * Final * * * PATIENT: Name: JOSS OROPEZA Age: 78 years Gender: M CONCLUSIONS: 1. SPECT Perfusion Study: Normal. 2. There is no scintigraphic evidence for inducible ischemia. 3. No evidence of scarred myocardium. 4. Left ventricle is normal in size. The left ventricle systolic function is normal. 5. Right ventricle is normal in size. The right ventricle systolic function is normal. 6. This is a low risk scan. Gated Stress FBP Gated Rest FBP LVEF % 76 72 Prior Study Comparison No prior nuclear cardiology exam available for comparison. Nuclear Med Report:1-Day Gated SPECT Myocardial Perfusion with Regadenoson Stress: Myocardial perfusion imaging was performed at rest 30 minutes following the IV injection of the radiotracer. The patient received 0.4 mg of regadenoson, via rapid IV push, immediately followed by radiotracer IV. Gated post stress tomographic imaging was performed 30 to 60 minutes later. See administered radiotracer and doses below. [facility] Date of service: 06/10/2023 8:22:28 AM Ordering Physician: BERNARD PUGH. Requesting Physician: BERNARD PUGH Indication: Assessment for suspected CAD, Dyspnea and Unable to Exercise Interpreting physician: Edmundo Payne MD Previous Cardiovascular Interventions: Diagnostic cath Height: 175.26 cm BSA: 2.14 m? Weight: 94.35 kg BMI: 30.7 kg/m? Imaging Protocol Limitation Reason Patient motion. CT Dose-Length Product(DLP): 30.0 mGy * cm. CT Dose Reduction Employed: Yes. Exam Type: Rest Stress Radiopharm: Tc-99m Tetrofosmin Tc-99m Tetrofosmin Dosage(mCi): 10.7 34.2 Atten Correction: not performed performed Stress Agent: Regadenoson 0.4mg Supply provided from [facility] Resting Blood Press: 147/80 mmHg Image Quality The overall study imaging quality was deemed to be poor. The following technical issues were noted: Patient motion. FINDINGS: Left Ventricle Wall Motion: Stress IR:3D - All segments are normal. Rest IR:3D - Gated Stress FBP - Reversibility - Gated Rest FBP - Stress IR:3D Stress IR:3D Gated Stress FBP Gated Rest FBP LVEF: 76 % 72 % ED Volume: 82 ml 78 ml ES Volume: 20 ml 22 ml TID: 0.88 Perfusion Findings Stress IR:3D - Summed Score=0 All segments demonstrate normal perfusion. Rest IR:3D - Summed Score=0 All segments demonstrate normal perfusion. Stress IR:3D Rest IR:3D Summed Score=0 Summed Score=0 LEFT VENTRICLE The left ventricle is normal in size. Left ventricular systolic function is normal. Right Ventricle The right ventricle is normal in size. Right ventricle systolic function is normal. Stress Test Findings: There is no scintigraphic evidence for inducible ischemia. There is no evidence of scarring. The left ventricular cavity size is unchanged with stress. * * * Final * * * NM CTAC Report: [facility] Date of service: 06/10/2023 8:22:28 AM CTAC interpreting physician: Edmundo Payne MD PATIENT: Name: JOSS OROPEZA Age: 78 years Gender: M 1. Incidental Findings from limited non-diagnostic CTAC: - Coronary calcifications visualized. - Aortic valve leaflet calcifications visualized. Correlation with echocardiography suggested. Multiple calcified granuloma in right and left perihilar areas and adjacent lung carnes. No prior CT in chart. * * * Final * * * Stress ECG Report: [facility] Date of service: 06/10/2023 8:22:28 AM Ordering physician: BERNARD PUGH medical administrative specialist: Rema Rodgers Credentialer: Alia Justin Interpreting physician: Philip Smith MD Patient name: JOSS OROPEZA Age: 78 years Gender: M Height: 175.26 cm BSA: 2.14 m? Weight: 94.35 kg BMI: 30.7 kg/m? Indication: Dyspnea on exertion, Abnormal result of cardiovascular function study, Encounter for screening for cardiovascular disorders and Fatigue Stress ECG Conclusion: Conclusion: Normal Stress ECG Summary: The (more content not included)... Normal [facility] ALLIED HEALTHon 06-09-2023 ALLIED HEALTH HNO ID: [id number] Author: MARCI RUST RT(R) Service: Radiology Author Type: Technologist Type: Allied Health Filed: 06/09/2023 09:53 Note Text: Radiology Service Progress Note PATIENT NAME: Joss Oropeza DATE OF SERVICE: June 09, 2023 TIME: 9:53 AM PATIENT IDENTITY VERIFICATION COMPLETED USING TWO (2) IDENTIFIERS: Name and Date of confirmed by patient verbally and Name and Date of confirmed by identification band. FALL SCREENING: Has the patient had 2 falls in the last year or 1 fall with injury or currently using an Ambulatory Assistive Device (Walker, Cane, Wheelchair, Crutches, etc.)? Inpatient: Screened on floor PATIENT GENDER DATA: Male PATIENT RELEVANT IMPLANT DATA REVIEWED: Yes PATIENT PRESENTS WITH AN IMPLANTABLE OR ATTACHED WIND TUNNEL ENGINEER: No RADIOLOGY DEPARTMENT: MR; Exam(s) Completed: Head: Routine Brain PERIPHERAL IV DATA: Not applicable SIGNED BY: RT Renu(R) June 09, 2023 9:53 AM Normal [facility] CBC panel Auto (Bld)on 06-08 Erythrocyte distribution width (RBC) [Ratio] 15.7 % High 11.5-15.0 [facility] Comment on above: Order Comment: Mathew portillo Type: BLOOD SPECIMENOrdering Facility: [facility] Address: [address] [place] [address] Performed By: #### 5 8410-2 ####[facility] LABORATORYCLIA [id number] [place] [address] [place] Hematocrit (Bld) [Volume fraction] 24.8 % Low 39.0-51.0 [facility] Comment on above: Order Comment: Speci men Type: BLOOD SPECIMENOrdering Facility: [facility] Address: [address] [place] [address] Performed By: #### 5 8410-2 ####[facility] LABORATORYCLIA [id number] [place] [address] [place] Hemoglobin (Bld) [Mass/Vol] 8.3 g/dL Low 13.0-17.0 [facility] Comment on above: Order Comment: Speci men Type: BLOOD SPECIMENOrdering Facility: [facility] Address: [address] [place] [address] Performed By: #### 5 8410-2 ####[facility] LABORATORYCLIA [id number] [address] [place] [facility] MCH (RBC) [Entitic mass] 39.5 pg High 26.0-34.0 [facility] Comment on above: Order Comment: Speci men Type: BLOOD SPECIMENOrdering Facility: [facility] Address: [address] [place] [address] Performed By: #### 5 8410-2 ####[facility] LABORATORYCLIA [id number] [address] [place] [facility] MCHC (RBC) [Mass/Vol] 33.5 g/dL Normal 30.5-36.0 [facility] Comment on above: Order Comment: Speci men Type: BLOOD SPECIMENOrdering Facility: [facility] Address: [address] [place] [address] Performed By: #### 5 8410-2 ####[facility] LABORATORYCLIA [id number] [address] [place] MCV (RBC) [Entitic vol] 118.1 fL High 80.0-100.0 [facility] Comment on above: Order Comment: Speci men Type: BLOOD SPECIMENOrdering Facility: [facility] Address: [address] [place] [address] Performed By: #### 5 8410-2 ####[facility] LABORATORYCLIA [id number] [address] [place] [facility] Nucleated RBC (Bld) [#/Vol] 0.05 10*3/uL High <0.01 [facility] Comment on above: Order Comment: Speci men Type: BLOOD SPECIMENOrdering Facility: [facility] Address: [address] [place] [address] Performed By: #### 5 8410-2 ####[facility] LABORATORYCLIA [id number] [place] [address] [place] Platelet mean volume (Bld) [Entitic vol] 12.6 fL Normal 9.0-12.7 [facility] Comment on above: Order Comment: Speci men Type: BLOOD SPECIMENOrdering Facility: [facility] Address: [address] [place] [address] Performed By: #### 5 8410-2 ####[facility] LABORATORYCLIA [id number] [place] [id number] [place] Platelets (Bld) [#/Vol] 119 10*3/uL Low 150-400 [facility] Comment on above: Order Comment: Speci men Type: BLOOD SPECIMENOrdering Facility: [facility] Address: [address] [place] [address] Performed By: #### 5 8410-2 ####[facility] LABORATORYCLIA [id number] [place] [address] [place] RBC (Bld) [#/Vol] 2.10 10*6/uL Low 4.20-6.00 [facility] Comment on above: Order Comment: Speci men Type: BLOOD SPECIMENOrdering Facility: [facility] Address: [address] [place] [address] Performed By: #### 5 8410-2 ####[facility] LABORATORYCLIA [id number] [place] [id number] [place] WBC (Bld) [#/Vol] 5.94 10*3/uL Normal 3.70-11.00 [facility] Comment on above: Order Comment: Speci men Type: BLOOD SPECIMENOrdering Facility: [facility] Address: [address] [place] [address] Performed By: #### 5 8410-2 ####[facility] LABORATORYCLIA [id number] [place] [id number] [facility] CONSULTon 06-09-2023 CONSULT HNO ID: [id number] Author: SRAVANTHI SUAREZ APRN.ECHOCARDIOLOGIST Service: Neurology General Author Type: Nurse Practitioner Type: Consults Filed: 06/09/2023 14:50 Note Text: NEURO STROKE INITIAL CONSULT SERVICE DATE: 06/09/2023 SERVICE TIME: 1115 REQUESTING PHYSICIAN: Franklyn Her APRN.ECHOCARDIOLOGIST PCP: German Robertson MD REASON FOR STROKE EVALUATION: speech disturbance Subjective HPI: Joss Oropeza is a 78 year old male patient with a past medical history of stroke in 2020 (reports left hand weakness that resolved), rheumatic fever, diabetes, anemia, hyperlipidemia, BPH, who presents for TIA concern. Reports several incidents of not feeling well lately. About a week ago he got sick severely short of breath and had to sit in his chair for several hours to recover. Said he was totally wasted of energy. He reports weakness all over at the time, no focal deficits. Went to [facility] workup negative. 6 days ago developed a transient episode of garbled speech /difficulty expressing his words that resolved after few minutes. Prior to that he had had an episode of confusion where he was trying to open a car door with glasses instead of keys. Yesterday another episode of slurred speech/word finding difficulty that also only lasted a few minutes. Denies any other focal neurologic symptoms with this. Currently on aspirin and statin at home LDL [address] brain no acute intracranial process CTA head and neck noncontributory MRI brain no acute intracranial process, no stroke Pre-admission Pre-morbid mRS: PAST MEDICAL HISTORY Diagnosis Date Cancer of unknown origin (HCC) 12/11/2022 Diabetes (HCC) Dyslipidemia Heart murmur Rheumatic fever St[facility]cerebrum[facility] 06/24/2020 PAST SURGICAL HISTORY Procedure Laterality Date ADENOIDECTOMY PRIMARY Adenoidectomy COLONOSCOPY FLX DX W/COLLJ SPEC WHEN PFRMD Colonoscopy COLONOSCOPY FLX DX W/COLLJ SPEC WHEN PFRMD Colonoscopy LAPAROSCOPY SURG CHOLECYSTECTOMY Cholecystectomy, lap PAST SURGICAL HISTORY OF 01-17-12 BACK SURGERY PAST SURGICAL HISTORY OF SKIN LESION--PRE CANCER SKULL PAST SURGICAL HISTORY OF SKIN LESION--SKIN CANCER LEFT HAND PICC LINE MRSA INFECTION RT/LT HEART CATHETERS CC AND CA, R AND L heart, NEGATIVE TONSILLECTOMY PRIMARY/SECONDARY Tonsillectomy Social History Tobacco Use Smoking status: Never Smokeless tobacco: Never Vaping Use Vaping Use: Never used Substance Use Topics Alcohol use: Yes Comment: social/rare Drug use: No FAMILY HISTORY Problem Relation Age of Onset Stroke Mother Ischemic Heart Disease Father ALLERGIES Allergen Reactions Maxipime [Cefepime] Unknown MEDICATION Pre-admission aspirin 81 mg chewable tablet, Take by mouth., Disp: , Rfl: , 06/08/2023 BASAGLAR KWIKPEN U-100 INSULIN 100 unit/mL (3 mL), Inject 25 Units subcutaneously every morning., Disp: , Rfl: , 06/08/2023 BD CRISTAL 2ND GEN PEN NEEDLE 32 gauge x 5/32, , Disp: , Rfl: , 06/08/2023 glimepiride (AMARYL) 4 mg tablet, Take 4 mg by mouth two times a day with meals., Disp: , Rfl: , 06/07/2023 rosuvastatin (CRESTOR) 10 mg tablet, Take 1 tablet by mouth daily at bedtime., Disp: 90 tablet, Rfl: 3, 06/07/2023 MEN'S MULTI-VITAMIN ORAL, Take 1 tablet by mouth., Disp: , Rfl: , 06/08/2023 cyanocobalamin (VITAMIN B-12) 1,000 mcg tab, Take 1,000 mcg by mouth once daily., Disp: , Rfl: , 06/08/2023 tamsulosin (FLOMAX) 0.4 mg, Take 0.4 mg by mouth two times a day., Disp: , Rfl: , 06/07/2023 finasteride (PROSCAR) 5 mg tablet, Take 5 mg by mouth once daily., Disp: , Rfl: , 06/07/2023 alendronate (FOSAMAX) 70 mg tablet, Take 70 mg by mouth one time a week. In AM with cup of water on empty stomach. Nothing else by mouth and stay upright for 30 min., Disp: , Rfl: , 06/07/2023 metFORMIN (GLUCOPHAGE) 1,000 mg tablet, Take 1,000 mg by mouth two times a day with meals. Once in am and once in pm, Disp: , Rfl: SITagliptin (ZITUVIO) 100 mg tablet, Take by mouth., Disp: , Rfl: , Unknown finasteride 0.1% minoxidil 7.5% topical solution (CPD), Finasteride Active 5 MG DAILY July 10, 2018 9:31am, Disp: , Rfl: , Unknown Current aspirin 81 mg chewable tabletTake by mouth.Disp: Rfl: BASAGLAR KWIKPEN U-100 INSULIN 100 unit/mL (3 mL)Inject 25 Units subcutaneously every morning.Disp: Rfl: BD CRISTAL 2ND GEN PEN NEEDLE 32 gauge x 5/32Disp: Rfl: glimepiride (AMARYL) 4 mg tabletTake 4 mg by mouth two times a day with meals.Disp: Rfl: rosuvastatin (CRESTOR) 10 mg tabletTake 1 tablet by mouth daily at bedtime.Disp: 90 tabletRfl: 3 MEN'S MULTI-VITAMIN ORALTake 1 tablet by mouth.Disp: Rfl: cyanocobalamin (VITAMIN B-12) 1,000 mcg tabTake 1,000 mcg by mouth once daily.Disp: Rfl: tamsulosin (FLOMAX) 0.4 mgTake 0.4 mg by mouth two times a day.Disp: Rfl: finasteride (PROSCAR) 5 mg tabletTake 5 mg by mouth once daily.Disp: Rfl: alendronate (FOSAMAX) 70 mg tabletTake 70 mg by mouth one time a week. In AM with cup of water on e (more content not included)... Normal [facility] CONSULT HNO ID: [id number] Author: PHILIP SMITH MD Service: Cardiovascular Medicine Author Type: Physician Type: Consults Filed: 06/09/2023 15:47 Note Text: CONSULT: CARDIOLOGY SERVICE SERVICE DATE: June 09, 2023 SERVICE TIME: 9:20 AM CONSULTING PHYSICIAN: Dr. Smith PCP: German Robertson MD ATTENDING: Stef Amanda MD REASON FOR CONSULT: Cardiology Evaluation ASSESSMENT AND PLAN: Principal Problem: Expressive aphasia Exertional dyspnea Fatigue Comment/Plan: No MA or ACS. Not in acute heart failure. Neurology still to see the patient. MRI was negative for acute process. Possible TIA. He has history of stroke from 2020. Considering his recent exertional dyspnea and fatigue and multiple CAD risk factors recommend nuclear stress test. Will keep NPO after midnight. CHIEF COMPLAINT: Shortness of Breath and difficulty speaking Joss Oropeza is a 78 year old male with DM II, DLD (LDL 19), ischemic stroke 2020, carotid artery disease (40-59% stenosis JONATHON, 20-39% stenosis LICA 2020). Denies prior MA or CAD, states he had a normal heart catheterization at [facility] many years ago. Macrocytic anemia, hepatic steatosis. Non smoker. Home medications: asa 81, crestor 10, metformin, glimepiride, janumet, proscar, protonix. Patient sought care in the ED 05/31 for fatigue and exertional dyspnea. He was evaluated and subsequently released. EKG at the time NSR without ischemic changes. HST 18-17. NT ProBNP 133, Hb 8.6 (at baseline). Per notes ambulated around the ED multiple times without shortness of breath, hypoxia or tachycardia. Patient returned to ED last night with difficulty speaking, trouble with word finding-symptoms lasted 5-10 minutes than resolved. States he had a similar episode one week prior. He also explains that he has not felt well since his ED visit on 05/31. That day he had an episode of extreme shortness of breath, this occurred while doing some work in his yard, it was a very windy day. He was almost unable to make it back into the house. Once he did he had to lay down for a while to recover. Since than he has felt very fatigued, having mild dyspnea with his routine activities. He denies chest pain, palpitations or fluid retention. No recent illness. He was hypertensive on presentation . CT brain no acute process. Telemetry NSR rate 69, no ischemic changes. Labs stable electrolytes and renal function, HST 18-18-18. Hb 9.3. Normal TSH. No specific treatment was given in ED. Prior Cardiac Workup: Echo 2020 - The left ventricle is normal in size. There is moderate concentric left ventricular hypertrophy. Left ventricular systolic function is normal. EF = 69 ? 5% (2D biplane) - The right ventricle is normal in size. Right ventricular systolic function is normal. - No significant valve abnormalities. - The patient has not had a prior CC echocardiographic exam for comparison. KIM 2020 - Exam indication: Stroke - The left ventricle is normal in size. Left ventricular systolic function is normal. EF = 65 ? 5% (visual est.) - The right ventricle is normal in size. Right ventricular systolic function is normal. - There is no left atrial appendage thrombus. - There is no patent foramen ovale as detected by Doppler and agitated saline contrast. - There are no significant valvular abnormalities. - There is a mild atheroma in the proximal descending isthmus. There is mild calcification in the sinotubular junction. - Exam was compared with the prior CC echocardiographic exam performed on 06/25/20 (ECHO). There is no significant change. MEDICATIONS: Current Facility-Administered Medications Medication Dose Route Frequency NaCl 0.9% iv flush bag 20 mL INTRAVENOUS PRN lactated ringers iv infusion 100 mL/hr INTRAVENOUS CONTINUOUS acetaminophen 650 mg tab(s) (TYLENOL) 650 mg ORAL/FEEDING TUBE q 4 H PRN ondansetron (PF) 4 mg injection (ZOFRAN) 4 mg INTRAVENOUS q 6 H PRN sodium chloride 0.9 % (flush) 2-10 mL (BD POSIFLUSH) 2-10 mL INTRAVENOUS DIRECTED PRN And perflutren lipid microspheres 1.1 mg/mL 1.3 mL injection (DEFINITY) 1.3 mL INTRAVENOUS DIRECTED PRN glimepiride 4 mg tab(s) (AMARYL) 4 mg ORAL BID w MEALS rosuvastatin 10 mg tab(s) (CRESTOR) 10 mg ORAL AT BEDTIME finasteride 5 mg tab(s) (PROSCAR) 5 mg ORAL DAILY tamsulosin 0.4 mg cap(s) (FLOMAX) 0.4 mg ORAL BID insulin glargine 25 Units pen (long acting) 25 Units SUBCUTANEOUS DAILY (8 AM) aspirin 81 mg chewable tab(s) 81 mg ORAL DAILY cyanocobalamin 1,000 mcg (VITAMIN B-12) 1,000 mcg ORAL DAILY dextrose 40 % 15 g 15 g ORAL PRN Or glucagon 1 mg injection 1 mg INTRAMUSCULAR PRN Or dextrose 10% iv bolus 12.5 g INTRAVENOUS PRN insulin lispro injection (rapid acting) (ADMElog) SUBCUTANEOUS w MEALS AND HS PAST MEDICAL HISTORY Diagnosis Date Cancer of unknown origin (HCC) 12/11/2022 Diabetes (HCC) Dyslipidemia Heart murmur Rheumatic fever Stroke (ce (more content not included)... Normal [facility] Comprehensive metabolic 2000 panelon 06-09-2023 Albumin [Mass/Vol] 3.9 g/dL Normal 3.9-4.9 [facility] Comment on above: Order Comment: Speci men Type: BLOOD SPECIMENOrdering Facility: [facility] Address: [address] [place] [address] Performed By: #### 2 4323-8, 3016-3, 23082-7 ####[facility] LABORATORYCLIA [id number] [place] [address] [place] ALP [Catalytic activity/Vol] 55 U/L Normal 38-113 [facility] Comment on above: Order Comment: Speci men Type: BLOOD SPECIMENOrdering Facility: [facility] Address: [address] [place] [address] Performed By: #### 2 4323-8, 3, ####[facility] LABORATORYCLIA [id number] [place] [id number] [place] ALT [Catalytic activity/Vol] 11 U/L Normal 10-54 [facility] Comment on above: Order Comment: Speci men Type: BLOOD SPECIMENOrdering Facility: [facility] Address: [address] [place] [address] Performed By: #### 2 4323-8, 3015-04, ####[facility] LABORATORYCLIA [id number] [place] [id number] [place] Anion gap [Moles/Vol] 10 mmol/L Normal 9-18 [facility] Comment on above: Order Comment: Speci men Type: BLOOD SPECIMENOrdering Facility: [facility] Address: [address] [place] [address] Performed By: #### 2 4323-8, 3015-04, ####[facility] LABORATORYCLIA [id number] [place] [id number] [place] AST [Catalytic activity/Vol] 16 U/L Normal 14-40 [facility] Comment on above: Order Comment: Speci men Type: BLOOD SPECIMENOrdering Facility: [facility] Address: [address] [place] [address] Performed By: #### 2 4323-8, 3, ####[facility] LABORATORYCLIA [id number] [place] [id number] [place] Bilirubin [Mass/Vol] 0.2 mg/dL Normal 0.2-1.3 [facility] Comment on above: Order Comment: Speci men Type: BLOOD SPECIMENOrdering Facility: [facility] Address: [address] [place] [address] Performed By: #### 2 4323-8, 3, ####[facility] LABORATORYCLIA [id number] [place] [address] [place] Calcium [Mass/Vol] 9.1 mg/dL Normal 8.5-10.2 [facility] Comment on above: Order Comment: Speci men Type: BLOOD SPECIMENOrdering Facility: [facility] Address: [address] [place] [address] Performed By: #### 2 4323-8, 3, ####[facility] LABORATORYCLIA [id number] [place] [id number] [place] Chloride [Moles/Vol] 107 mmol/L High 97-105 [facility] Comment on above: Order Comment: Speci men Type: BLOOD SPECIMENOrdering Facility: [facility] Address: [address] [place] [address] Performed By: #### 2 4323-8, 3015-04, ####[facility] LABORATORYCLIA [id number] [place] [id number] [place] CO2 [Moles/Vol] 22 mmol/L Normal 22-30 [facility] Comment on above: Order Comment: Speci men Type: BLOOD SPECIMENOrdering Facility: [facility] Address: [address] [place] [address] Performed By: #### 2 4323-8, 3015-04, ####[facility] LABORATORYCLIA [id number] [place] [id number] [place] Creatinine [Mass/Vol] 1.00 mg/dL Normal 0.73-1.22 [facility] Comment on above: Order Comment: Speci men Type: BLOOD SPECIMENOrdering Facility: [facility] Address: [address] [place] [address] Performed By: #### 2 4323-8, 3, ####[facility] LABORATORYCLIA [id number] [place] [id number] [place] Creatinine and Glomerular filtration rate.predicted panel (S/P/Bld) 76 mL/min/1.73m??? Normal >=60 [facility] Comment on above: Order Comment: Mathew portlilo Type: BLOOD SPECIMENOrdering Facility: [facility] Address: [address] [place] [address] Result Comment: Sharon mated Glomerular Filtration Rate (eGFR) is calculated using the 2020 CKD-EPI creatinine equation. This equation utilizes serum creatinine, sex, and age as parameters. The creatinine assay has traceable calibration to isotope dilution-mass spectrometry. Refer to KDIGO guidelines for clinical interpretation. In patients with unstable renal function, e.g. those with acute kidney injury, the eGFR may not accurately reflect actual GFR. Performed By: #### 2 4323-8, 3016-3, 69548-5 ####[facility] LABORATORYCLIA [id number] [place] [id number] [place] Glucose [Mass/Vol] 124 mg/dL High 74-99 [facility] Comment on above: Order Comment: Mathew portillo Type: BLOOD SPECIMENOrdering Facility: [facility] Address: [address] [place] [address] Result Comment: The [place] Diabetes [employer] (ADA) provides guidance for cutoff values for fasting glucose and random glucose. The ADA defines fasting as no caloric intake for at least 8 hours. Fasting plasma glucose results between 100 to 125 mg/dL indicate increased risk for diabetes (prediabetes). Fasting plasma glucose results greater than or equal to 126 mg/dL meet the criteria for diagnosis of diabetes. In the absence of unequivocal hyperglycemia, results should be confirmed by repeat testing. In a patient with classic symptoms of hyperglycemia or hyperglycemic crisis, random plasma glucose results greater than or equal to 200 mg/dL meet the criteria for diagnosis of diabetes. Reference: Standards of Medical Care in Diabetes 2016, [place] Diabetes [employer]. Diabetes Care. 2016.39(Suppl 1). Performed By: #### 2 4323-8, 3016-3, 34104-7 ####[facility] LABORATORYCLIA [id number] [place] [id number] [place] Potassium [Moles/Vol] 4.3 mmol/L Normal 3.7-5.1 [facility] Comment on above: Order Comment: Speci men Type: BLOOD SPECIMENOrdering Facility: [facility] Address: [address] [place] [id number] Performed By: #### 2 4323-8, 3, ####[facility] LABORATORYCLIA [id number] [place] [address] [place] Protein [Mass/Vol] 6.4 g/dL Normal 6.3-8.0 [facility] Comment on above: Order Comment: Speci men Type: BLOOD SPECIMENOrdering Facility: [facility] Address: [address] [place] [address] Performed By: #### 2 4323-8, 3, ####[facility] LABORATORYCLIA [id number] [place] [id number] [place] Sodium [Moles/Vol] 139 mmol/L Normal 136-144 [facility] Comment on above: Order Comment: Speci men Type: BLOOD SPECIMENOrdering Facility: [facility] Address: [address] [place] [address] Performed By: #### 2 4323-8, 3, ####[facility] LABORATORYCLIA [id number] [place] [id number] [place] Urea nitrogen [Mass/Vol] 18 mg/dL Normal 9-24 [facility] Comment on above: Order Comment: Speci men Type: BLOOD SPECIMENOrdering Facility: [facility] Address: [address] [place] [address] Performed By: #### 2 4323-8, 3, ####[facility] LABORATORYCLIA [id number] [place] [id number] [place] HIGH SENSITIVITY TROPONIN To n 06-09-2023 Troponin T.cardiac High sensitivity method [Mass/Vol] 17 ng/L High <12 [facility] Comment on above: Order Comment: Speci men Type: BLOOD SPECIMENOrdering Facility: [facility] Address: [address] [place] [address] Result Comment: When assessing risk for acute coronary syndromes: In patients undergoing blood draw greater than or equal to 2 hours from symptom onset, with history of very low to moderate risk and non-ischemic ECG, an initial hs-Troponin T less than 12 ng/L AND a 1 hour delta hs-Troponin T less than 3 ng/L should be considered very low risk for 30 day MACE. Performed By: #### H STNT ####[facility] LABORATORYCLIA [id number] [address] [place] Troponin T.cardiac High sensitivity method [Mass/Vol] 18 ng/L High <12 [facility] Comment on above: Order Comment: Mayuri men Type: BLOOD SPECIMENOrdering Facility: [facility] Address: [address] [place] [address] Result Comment: When assessing risk for acute coronary syndromes: In patients undergoing blood draw greater than or equal to 2 hours from symptom onset, with history of very low to moderate risk and non-ischemic ECG, an initial hs-Troponin T less than 12 ng/L AND a 1 hour delta hs-Troponin T less than 3 ng/L should be considered very low risk for 30 day MACE. Performed By: #### H STNT ####[facility] LABORATORYCLIA [id number] [place] [address] [place] HbA1c (Bld)on 06-09-2023 Average glucose Estimated from glycated hemoglobin (Bld) [Mass/Vol] 217 mg/dL Normal [facility] Comment on above: Order Comment: Mathew lindsey Type: BLOOD SPECIMENOrdering Facility: [facility] Address: [address] [place] [address] Result Comment: eAG: (Estimated average glucose) is a calculated value from HgbA1c and is sales representative electric service of the average blood glucose level in the last 2-3 month period. Performed By: #### 5 5454-3 ####[facility] LABCLIA [id number] [place] [address] [place] HbA1c (Bld) [Mass fraction] 9.2 % High 4.3-5.6 [facility] Comment on above: Order Comment: Mathew [facility] Type: BLOOD SPECIMENOrdering Facility: [facility] Address: [address], [place] [address] Result Comment: [place] Diabetes Association guidelines indicate that patients with HgbA1c in the range 5.7-6.4% are at increased risk for development of diabetes, and intervention by lifestyle modification may be beneficial. HgbA1c greater or equal to 6.5% is considered diagnostic of diabetes. Performed By: #### 5 5454-3 ####[facility] LABCLIA [id number] [address] [place] MRI BRAIN WO IVCONon 024 MRI BRAIN WO IVCON * * *Final Report* * * DATE OF EXAM: Jun 09 2023 10:00AM FVM 0294 - MRI BRAIN WO IVCON / PROCEDURE REASON: Transient ischemic attack (TIA) * * * * Physician Interpretation * * * * EXAMINATION: MRI BRAIN WO IVCON CLINICAL HISTORY: TIA TECHNIQUE: Routine noncontrast MRI protocol including diffusion images. MQ: [id number] COMPARISON: MRI brain 06/25/2020.. RESULT: Acute Change: There is no evidence of restricted diffusion to suggest an acute infarct. Hemorrhage: No evidence of prior parenchymal hemorrhage on the SWI. Mass Lesion/ Mass Effect: No evidence of an intracranial mass or extra-axial fluid collection. No significant mass effect. Chronic Change: Scattered patchy areas of increased T2 and FLAIR signal are present in the supratentorial white matter which is a nonspecific finding but likely represents mild chronic microvascular ischemia. Parenchyma: There is moderate generalized parenchymal volume loss. The brain parenchyma is otherwise within normal limits of signal intensity and morphology. Ventricles: Ventriculomegaly corresponds to the degree of parenchymal volume loss. Skull Base: Hypothalamic and pituitary region are grossly normal. Craniocervical junction is normal. No significant marrow replacement process. Vasculature: Major intracranial arterial structures, and dural venous sinuses show typical flow void, suggesting patency by spin echo criteria. Other: The visualized paranasal sinuses and mastoid air cells are clear. The orbits and extracranial soft tissues are unremarkable. IMPRESSION: No acute intracranial findings. Moderate diffuse parenchymal volume loss and mild sclerotic chronic microvascular ischemia. Backhaul Driver: DIVINA Transcribe Date/Time: Jun 09 2023 11:34A Dictated by : SELENA DISLA MD This examination was interpreted and the report reviewed and electronically signed by: SELENA DISLA MD on Jun 09 2023 11:36AM EST [id number] Normal [facility] Magnesium SerPl-mCncon 06-08 Magnesium [Mass/Vol] 1.8 mg/dL Normal 1.7-2.3 [facility] Comment on above: Order Comment: Speci men Type: BLOOD SPECIMENOrdering Facility: [facility] Address: [address] [place] [address] Performed By: #### 2 4323-8, 3016-3, 66809-5 ####[facility] LABORATORYCLIA [id number] [place] [address] [place] TOXICOLOGY SCREEN, ROUTINE U RINEon 06-09-2023 Amphetamines Confirm (U) [Mass/Vol] Negative Normal Negative [facility] Comment on above: Order Comment: Speci men Type: URINE SPECIMENOrdering Facility: [facility] Address: [address] [place] [address] Result Comment: Cuto ff threshold at 1000 ng/mL. Performed By: #### U TOX2 ####[facility] LABORATORYCLIA [id number] [place] [address] [place] BARBITURATES, URINE Negative Normal Negative [facility] Comment on above: Order Comment: Speci men Type: URINE SPECIMENOrdering Facility: [facility] Address: [address] [place] [address] Result Comment: Cuto ff threshold at 200 ng/mL. Performed By: #### U TOX2 ####[facility] LABORATORYCLIA [id number] [place] [address] [place] BENZODIAZEPINES, UR Negative Normal Negative [facility] Comment on above: Order Comment: Speci men Type: URINE SPECIMENOrdering Facility: [facility] Address: [address] [place] [address] Result Comment: Cuto ff threshold at 200 ng/mL. Performed By: #### U TOX2 ####[facility] LABORATORYCLIA [id number] [place] [address] [place] Cannabinoids Screen Ql (U) Negative Normal Negative [facility] Comment on above: Order Comment: Speci men Type: URINE SPECIMENOrdering Facility: [facility] Address: [address] [place] [address] Result Comment: Cuto ff threshold at 50 ng/mL. Performed By: #### U TOX2 ####[facility]ORATORYCLIA [id number] [place] [address] [place] Cocaine Ql (U) Negative Normal Negative [facility] Comment on above: Order Comment: Speci men Type: URINE SPECIMENOrdering Facility: [facility] Address: [address] [place] [address] Result Comment: Cuto ff threshold at 300 ng/mL. Performed By: #### U TOX2 ####[facility]ORATORYCLIA [id number] [place] [address] [place] Ethanol (U) [Mass/Vol] <11 Normal <11 [facility] Comment on above: Order Comment: Speci men Type: URINE SPECIMENOrdering Facility: [facility] Address: [address] [place] [address] Performed By: #### U TOX2 ####[facility]ORATORYCLIA [id number] [address] [place] Opiates Screen Ql (U) Negative Normal Negative [facility] Comment on above: Order Comment: Speci men Type: URINE SPECIMENOrdering Facility: [facility] Address: [address] [place] [address] Result Comment: Cuto ff threshold at 300 ng/mL. Performed By: #### U TOX2 ####[facility]ATORYCLIA [id number] [address] [place] oxyCODONE cutoff Screen (U) [Mass/Vol] Negative Normal Negative [facility] Comment on above: Order Comment: Speci men Type: URINE SPECIMENOrdering Facility: [facility] Address: [address] [place] [address] Result Comment: Cuto ff threshold at 100 ng/mL. Performed By: #### U TOX2 ####[facility]ORATORYCLIA [id number] [address] [place] Phencyclidine Ql (U) Negative Normal Negative [facility] Comment on above: Order Comment: Speci men Type: URINE SPECIMENOrdering Facility: [facility] Address: [address] [place] [address] Result Comment: Cuto ff threshold at 25 ng/mL. Performed By: #### U TOX2 ####[facility] LABORATORYCLIA [id number] [place] [address] [place] TSH SerPl-aCncon 06-09-2023 TSH Qn 2.680 m[IU]/L Normal 0.270-4.200 [facility] Comment on above: Order Comment: Speci men Type: BLOOD SPECIMENOrdering Facility: [facility] Address: [address] [place] [address] Performed By: #### 2 4323-8, 3016-3, 01376-7 ####[facility] LABORATORYCLIA [id number] [address] [place] Urinalysis complete panel (U )on 06-09-2023 Bilirubin Ql (U) Negative Normal Negative [facility] Comment on above: Order Comment: Speci men Type: URINE SPECIMENOrdering Facility: [facility] Address: [address] [place] [address] Performed By: #### 2 4356-8 ####[facility] LABORATORYCLIA [id number] [address] [place] Clarity (Unsp spec) Clear Normal Clear [facility] Comment on above: Order Comment: Speci men Type: URINE SPECIMENOrdering Facility: [facility] Address: [address] [place] [address] Performed By: #### 2 4356-8 ####[facility] LABORATORYCLIA [id number] [place] [address] [place] Color (U) Colorless Normal Yellow [facility] Comment on above: Order Comment: Speci men Type: URINE SPECIMENOrdering Facility: [facility] Address: [address] [place] [address] Performed By: #### 2 4356-8 ####[facility]ORATORYCLIA [id number] [address] Glucose Test strip (U) [Mass/Vol] Negative Normal Trace, Negative [facility] Comment on above: Order Comment: Speci men Type: URINE SPECIMENOrdering Facility: [facility] Address: [address] [place] [address] Performed By: #### 2 4356-8 ####[facility] LABORATORYCLIA [id number] [place] [address] [place] Hemoglobin Ql (U) Negative Normal Negative, Trace [facility] Comment on above: Order Comment: Speci men Type: URINE SPECIMENOrdering Facility: [facility] Address: [address] [place] [address] Performed By: #### 2 4356-8 ####[facility] LABORATORYCLIA [id number] [address] [place] [facility] Ketones Ql (U) Negative Normal Negative, Trace [facility] Comment on above: Order Comment: Speci men Type: URINE SPECIMENOrdering Facility: [facility] Address: [address] [place] [address] Performed By: #### 2 4356-8 ####[facility] LABORATORYCLIA [id number] [address] Leukocyte esterase Test strip Ql (U) Negative Normal Negative, 25 Ray/uL [facility] Comment on above: Order Comment: Speci men Type: URINE SPECIMENOrdering Facility: [facility] Address: [address] [place] [address] Performed By: #### 2 4356-8 ####[facility] LABORATORYCLIA [id number] [place] [address] [place] Nitrite Ql (U) Negative Normal Negative [facility] Comment on above: Order Comment: Speci men Type: URINE SPECIMENOrdering Facility: [facility] Address: [address] [place] [address] Performed By: #### 2 4356-8 ####[facility] LABORATORYCLIA [id number] [address] [place] pH (U) 6.0 [pH] Normal 5.0-8.0 [facility] Comment on above: Order Comment: Speci men Type: URINE SPECIMENOrdering Facility: [facility] Address: [address] [place] [address] Performed By: #### 2 4356-8 ####[facility] LABORATORYCLIA [id number] [place] [address] [place] Protein (U) [Mass/Vol] Negative Normal Trace, Negative [facility] Comment on above: Order Comment: Speci men Type: URINE SPECIMENOrdering Facility: [facility] Address: [address] [place] [address] Performed By: #### 2 4356-8 ####[facility] LABORATORYCLIA [id number] [address] [place] [facility] RBC LM.HPF (Urine sed) [#/Area] 0-3 /HPF Normal 0-3 /HPF [facility] Comment on above: Order Comment: Speci men Type: URINE SPECIMENOrdering Facility: [facility] Address: [address] [place] [address] Performed By: #### 2 4356-8 ####[facility] LABORATORYCLIA [id number] [place] [address] [place] Specific gravity (U) [Rel density] 1.023 Normal 1.005-1.030 [facility] Comment on above: Order Comment: Speci men Type: URINE SPECIMENOrdering Facility: [facility] Address: [address] [place] [address] Performed By: #### 2 4356-8 ####[facility] LABORATORYCLIA [id number] [address] [place] Urobilinogen Ql (U) Normal Normal Normal [facility] Comment on above: Order Comment: Speci men Type: URINE SPECIMENOrdering Facility: [facility] Address: [address] [place] [address] Performed By: #### 2 4356-8 ####[facility] LABORATORYCLIA [id number] [place] [address] [place] WBC LM.HPF (Urine sed) [#/Area] 0-5 /HPF Normal 0-5 /HPF [facility] Comment on above: Order Comment: Speci men Type: URINE SPECIMENOrdering Facility: [facility] Address: [address] [place] [address] Performed By: #### 2 4356-8 ####[facility] LABORATORYCLIA [id number] [place] [id number] [place] Basic metabolic 2000 panelon 06-08-2023 Anion gap [Moles/Vol] 12 mmol/L Normal 9-18 [facility] Comment on above: Order Comment: Speci men Type: BLOOD SPECIMENOrdering Facility: [facility] Address: [address] [place] [address] Performed By: #### 2 4331-1, HSTNT, 58514-9 ####[facility] LABORATORYCLIA [id number] [place] [id number] [place] Calcium [Mass/Vol] 9.7 mg/dL Normal 8.5-10.2 [facility] Comment on above: Order Comment: Speci men Type: BLOOD SPECIMENOrdering Facility: [facility] Address: [address] [place] [address] Performed By: #### 2 4331-1, HSTNT, 46276-6 ####[facility] LABORATORYCLIA [id number] [place] [id number] [place] Chloride [Moles/Vol] 101 mmol/L Normal 97-105 [facility] Comment on above: Order Comment: Speci men Type: BLOOD SPECIMENOrdering Facility: [facility] Address: [address] [place] [address] Performed By: #### 2 4331-1, HSTNT, 18767-1 ####[facility] LABORATORYCLIA [id number] [place] [id number] [place] CO2 [Moles/Vol] 22 mmol/L Normal 22-30 [facility] Comment on above: Order Comment: Speci men Type: BLOOD SPECIMENOrdering Facility: [facility] Address: [address] [place] [address] Performed By: #### 2 4331-1, HSTNT, 63194-0 ####BR[facility]KE[facility] LABORATORYCLIA [id number] [place] [address] [place] Creatinine [Mass/Vol] 1.04 mg/dL Normal 0.73-1.22 [facility] Comment on above: Order Comment: Mathew portillo Type: BLOOD SPECIMENOrdering Facility: [facility] Address: [address] [place] [address] Performed By: #### 2 4331-1, HSTNT, 15267-7 ####BR[facility] LABORATORYCLIA [id number] [place] [address] [place] Creatinine and Glomerular filtration rate.predicted panel (S/P/Bld) 73 mL/min/1.73m??? Normal >=60 [facility] Comment on above: Order Comment: Mathew portillo Type: BLOOD SPECIMENOrdering Facility: [facility] Address: [address] [place] [address] Result Comment: Sharon mated Glomerular Filtration Rate (eGFR) is calculated using the 2020 CKD-EPI creatinine equation. This equation utilizes serum creatinine, sex, and age as parameters. The creatinine assay has traceable calibration to isotope dilution-mass spectrometry. Refer to KDIGO guidelines for clinical interpretation. In patients with unstable renal function, e.g. those with acute kidney injury, the eGFR may not accurately reflect actual GFR. Performed By: #### 2 4331-1, HSTNT, 21097-5 ####BR[facility] LABORATORYCLIA [id number] [place] [id number] [place] Glucose [Mass/Vol] 201 mg/dL High 74-99 [facility] Comment on above: Order Comment: Mathew portillo Type: BLOOD SPECIMENOrdering Facility: [facility] Address: [address] [place] [address] Result Comment: The [place] [employer] (ADA) provides guidance for cutoff values for fasting glucose and random glucose. The ADA defines fasting as no caloric intake for at least 8 hours. Fasting plasma glucose results between 100 to 125 mg/dL indicate increased risk for diabetes (prediabetes). Fasting plasma glucose results greater than or equal to 126 mg/dL meet the criteria for diagnosis of diabetes. In the absence of unequivocal hyperglycemia, results should be confirmed by repeat testing. In a patient with classic symptoms of hyperglycemia or hyperglycemic crisis, random plasma glucose results greater than or equal to 200 mg/dL meet the criteria for diagnosis of diabetes. Reference: Standards of Medical Care in Diabetes 2016, [place] [employer]. Diabetes Care. 2016.39(Suppl 1). Performed By: #### 2 4331-1, HSTNT, 66791-4 ####BRICKE[facility] LABORATORYCLIA [id number] [place] [id number] [place] Potassium [Moles/Vol] 4.4 mmol/L Normal 3.7-5.1 [facility] Comment on above: Order Comment: Mathew portillo Type: BLOOD SPECIMENOrdering Facility: [facility] Address: [address] [place] [address] Performed By: #### 2 4331-1, HSTNT, 96208-5 ####BR[facility]KE[facility] LABORATORYCLIA [id number] [place] [id number] [place] Sodium [Moles/Vol] 135 mmol/L Low 136-144 [facility] Comment on above: Order Comment: Mathew portillo Type: BLOOD SPECIMENOrdering Facility: [facility] Address: [address] [place] [address] Performed By: #### 2 4331-1, HSTNT, 22709-5 ####BR[facility]KE[facility] LABORATORYCLIA [id number] [place] [id number] [place] Urea nitrogen [Mass/Vol] 23 mg/dL Normal 9-24 [facility] Comment on above: Order Comment: Mathew portillo Type: BLOOD SPECIMENOrdering Facility: [facility] Address: [address] [place] [address] Performed By: #### 2 4331-1, HSTNT, 33026-8 ####BR[facility]KE[facility] LABORATORYCLIA [id number] [place] [id number] [place] CBC panel Auto (Bld)on 06-07 Erythrocyte distribution width (RBC) [Ratio] 15.9 % High 11.5-15.0 [facility] Comment on above: Order Comment: Speci men Type: BLOOD SPECIMENOrdering Facility: [facility] Address: [address] [place] [address] Performed By: #### 5 8410-2 ####[facility] LABORATORYCLIA [id number] [address] [place] Hematocrit (Bld) [Volume fraction] 27.4 % Low 39.0-51.0 [facility] Comment on above: Order Comment: Speci men Type: BLOOD SPECIMENOrdering Facility: [facility] Address: [address] [place] [address] Performed By: #### 5 8410-2 ####[facility] LABORATORYCLIA [id number] [place] [address] [place] Hemoglobin (Bld) [Mass/Vol] 9.3 g/dL Low 13.0-17.0 [facility] Comment on above: Order Comment: Speci men Type: BLOOD SPECIMENOrdering Facility: [facility] Address: [address] [place] [address] Performed By: #### 5 8410-2 ####[facility] LABORATORYCLIA [id number] [place] [address] [place] MCH (RBC) [Entitic mass] 40.1 pg High 26.0-34.0 [facility] Comment on above: Order Comment: Speci men Type: BLOOD SPECIMENOrdering Facility: [facility] Address: [address] [place] [address] Performed By: #### 5 8410-2 ####[facility] LABORATORYCLIA [id number] [place] [address] [place] MCHC (RBC) [Mass/Vol] 33.9 g/dL Normal 30.5-36.0 [facility] Comment on above: Order Comment: Speci men Type: BLOOD SPECIMENOrdering Facility: [facility] Address: [address] [place] [address] Performed By: #### 5 8410-2 ####[facility] LABORATORYCLIA [id number] [place] [address] [place] MCV (RBC) [Entitic vol] 118.1 fL High 80.0-100.0 [facility] Comment on above: Order Comment: Speci men Type: BLOOD SPECIMENOrdering Facility: [facility] Address: [address] [place] [address] Performed By: #### 5 8410-2 ####BR[facility] LABORATORYCLIA [id number] [place] [id number] [place] Nucleated RBC (Bld) [#/Vol] 0.05 10*3/uL High <0.01 [facility] Comment on above: Order Comment: Speci men Type: BLOOD SPECIMENOrdering Facility: [facility] Address: [address] [place] [address] Performed By: #### 5 8410-2 ####[facility] LABORATORYCLIA [id number] [place] [address] [place] Platelet mean volume (Bld) [Entitic vol] 12.9 fL High 9.0-12.7 [facility] Comment on above: Order Comment: Speci men Type: BLOOD SPECIMENOrdering Facility: [facility] Address: [address] [place] [address] Performed By: #### 5 8410-2 ####[facility] LABORATORYCLIA [id number] [place] [address] [place] Platelets (Bld) [#/Vol] 132 10*3/uL Low 150-400 [facility] Comment on above: Order Comment: Speci men Type: BLOOD SPECIMENOrdering Facility: [facility] Address: [address] [place] [address] Performed By: #### 5 8410-2 ####[facility] LABORATORYCLIA [id number] [place] [address] [place] RBC (Bld) [#/Vol] 2.32 10*6/uL Low 4.20-6.00 [facility] Comment on above: Order Comment: Speci men Type: BLOOD SPECIMENOrdering Facility: [facility] Address: [address] [place] [address] Performed By: #### 5 8410-2 ####[facility] LABORATORYCLIA [id number] [place] [id number] [place] WBC (Bld) [#/Vol] 6.73 10*3/uL Normal 3.70-11.00 [facility] Comment on above: Order Comment: Speci men Type: BLOOD SPECIMENOrdering Facility: [facility] Address: [facility] [place] [address] Performed By: #### 5 8410-2 ####[facility] LABORATORYCLIA [id number] [place] [id number] [place] CT BRAIN WO IVCONon 06-08-[address] BRAIN WO IVCON * * *Final Report* * * DATE OF EXAM: Jun 08 2023 6:29PM [facility] 0504 - CT BRAIN WO IVCON / PROCEDURE REASON: Focal neuro deficit, new, fixed, or worsening, 4.5 to 24 hours, NIHSS < 6, strok * * * * Physician Interpretation * * * * EXAMINATION: CTA NECK W IVCON, CTA HEAD W IVCON, CT BRAIN WO IVCON HISTORY: Word finding difficulty, symptoms resolved. TECHNIQUE: Routine CT of the brain without IV contrast. Next, high resolution axial images were obtained through the head, neck and superior mediastinum following bolus administration of intravenous contrast for CT angiography. 3D maximum intensity projection images were created, reviewed and archived . MQ: CTABNPlus_4 Contrast: 80 mL Omnipaque [address] Radiation dose: Integrated Dose-Length Product (DLP) for this visit = 1364 mGy*cm. CT Dose Reduction Employed: No dose reduction techniques were required COMPARISON: None. RESULT: BRAIN: Acute change: No evidence of an acute infarct or other acute parenchymal process. ASPECT Score = 10 Hemorrhage: No evidence of acute intracranial hemorrhage. ECASS hemorrhagic transformation score: Not Applicable Mass Lesion / Mass Effect: There is no evidence of an intracranial mass or extra-axial fluid collection. No significant mass effect. Chronic change: Patchy foci of low attenuation coefficient are present within white matter which is a nonspecific finding but likely represents moderate microvascular ischemia. Parenchyma: There is moderate generalized volume loss for age. The brain parenchyma is otherwise within normal limits for age. Ventricles: Ventricular enlargement concordant with the degree of parenchymal volume loss. Other: The visualized paranasal sinuses are grossly clear. The skull and visualized extracranial soft tissues are grossly normal. NECK: Soft tissues: The soft tissue planes are maintained throughout. No evidence of a soft tissue mass in the neck or superior mediastinum. No significant lymphadenopathy is seen. Spine: Alignment is normal. Moderate degenerative changes are present. Lung apices: The visualized lung apices are clear. CT ARTERIOGRAM: Extracranial Circulation: Aortic Arch: There is a normal branching pattern from the aortic arch. There is no significant stenosis in the proximal brachiocephalic vessels. Carotid Stenosis: Right Common: No significant stenosis. Right Internal Carotid Plaque: Moderate partially calcified atherosclerotic plaque. Right Internal Carotid Stenosis (% by NASCET Criteria): 40% Left Common: No significant stenosis. Left Internal Carotid Plaque: Mild plaque formation. Left Internal Carotid Stenosis (% by NASCET Criteria): Less than 25% Cervical Vertebral Arteries: Patency: Bilateral Dominance: Right Intracranial Circulation: Anterior Circulation: Mild to moderate stenosis of the bilateral carotid siphons due to circumferential atherosclerotic plaque. Bilateral ACAs and MCAs are patent. No aneurysm is identified. Vertebrobasilar Circulation: Patent bilateral V4 vertebral artery segments, basilar artery, and major branch vessels. Both clinical education manager are patent with conventional origin on the left and origin on the right. Dural venous sinuses and major deep draining veins are patent. Egg Grader (topogram) images: No significant findings. IMPRESSION: 1. No acute intracranial findings. Chronic changes as described. 2. No large vessel occlusion or high-grade arterial stenosis intracranially. 3. No hemodynamically significant stenosis of the extracranial carotid or vertebral artery segments. Arterial blood flow was measured to detect acute large vessel occlusion by computer aided detection software: None. Concordance between software and imaging review: Concordant. Backhaul Driver: DIVINA Transcribe Date/Time: Jun 08 2023 6:48P Dictated by : EL NUNEZ MD This examination was interpreted and the report reviewed and electronically signed by: EL NUNEZ MD on Jun 08 2023 6:55PM EST [id number] Normal [facility] CTA HEAD W IVCONon 4 CTA HEAD W IVCON * * *Final Report* * * DATE OF EXAM: Jun 08 2023 6:29PM [facility]VC 0022 - CTA HEAD W IVCON / PROCEDURE REASON: Focal neuro deficit, new, fixed, or worsening, 4.5 to 24 hours, NIHSS < 6, strok * * * * Physician Interpretation * * * * EXAMINATION: CTA NECK W IVCON, CTA HEAD W IVCON, CT BRAIN WO IVCON HISTORY: Word finding difficulty, symptoms resolved. TECHNIQUE: Routine CT of the brain without IV contrast. Next, high resolution axial images were obtained through the head, neck and superior mediastinum following bolus administration of intravenous contrast for CT angiography. 3D maximum intensity projection images were created, reviewed and archived . MQ: CTABNPlus_4 Contrast: 80 mL Omnipaque [address] Radiation dose: Integrated Dose-Length Product (DLP) for this visit = 1364 mGy*cm. CT Dose Reduction Employed: No dose reduction techniques were required COMPARISON: None. RESULT: BRAIN: Acute change: No evidence of an acute infarct or other acute parenchymal process. ASPECT Score = 10 Hemorrhage: No evidence of acute intracranial hemorrhage. ECASS hemorrhagic transformation score: Not Applicable Mass Lesion / Mass Effect: There is no evidence of an intracranial mass or extra-axial fluid collection. No significant mass effect. Chronic change: Patchy foci of low attenuation coefficient are present within white matter which is a nonspecific finding but likely represents moderate microvascular ischemia. Parenchyma: There is moderate generalized volume loss for age. The brain parenchyma is otherwise within normal limits for age. Ventricles: Ventricular enlargement concordant with the degree of parenchymal volume loss. Other: The visualized paranasal sinuses are grossly clear. The skull and visualized extracranial soft tissues are grossly normal. NECK: Soft tissues: The soft tissue planes are maintained throughout. No evidence of a soft tissue mass in the neck or superior mediastinum. No significant lymphadenopathy is seen. Spine: Alignment is normal. Moderate degenerative changes are present. Lung apices: The visualized lung apices are clear. CT ARTERIOGRAM: Extracranial Circulation: Aortic Arch: There is a normal branching pattern from the aortic arch. There is no significant stenosis in the proximal brachiocephalic vessels. Carotid Stenosis: Right Common: No significant stenosis. Right Internal Carotid Plaque: Moderate partially calcified atherosclerotic plaque. Right Internal Carotid Stenosis (% by NASCET Criteria): 40% Left Common: No significant stenosis. Left Internal Carotid Plaque: Mild plaque formation. Left Internal Carotid Stenosis (% by NASCET Criteria): Less than 25% Cervical Vertebral Arteries: Patency: Bilateral Dominance: Right Intracranial Circulation: Anterior Circulation: Mild to moderate stenosis of the bilateral carotid siphons due to circumferential atherosclerotic plaque. Bilateral ACAs and MCAs are patent. No aneurysm is identified. Vertebrobasilar Circulation: Patent bilateral V4 vertebral artery segments, basilar artery, and major branch vessels. Both clinical education manager are patent with conventional origin on the left and origin on the right. Dural venous sinuses and major deep draining veins are patent. Egg Grader (topogram) images: No significant findings. IMPRESSION: 1. No acute intracranial findings. Chronic changes as described. 2. No large vessel occlusion or high-grade arterial stenosis intracranially. 3. No hemodynamically significant stenosis of the extracranial carotid or vertebral artery segments. Arterial blood flow was measured to detect acute large vessel occlusion by computer aided detection software: None. Concordance between software and imaging review: Concordant. Backhaul Driver: PSCB Transcribe Date/Time: Jun 08 2023 6:48P Dictated by : EL NUNEZ MD This examination was interpreted and the report reviewed and electronically signed by: EL NUNEZ MD on Jun 08 2023 6:55PM EST [id number] Normal [facility] CTA NECK W IVCONon CTA NECK W IVCON * * *Final Report* * * DATE OF EXAM: Jun 08 2023 6:29PM FVC 0024 - CTA NECK W IVCON / PROCEDURE REASON: Focal neuro deficit, new, fixed, or worsening, 4.5 to 24 hours, NIHSS < 6, strok * * * * Physician Interpretation * * * * EXAMINATION: CTA NECK W IVCON, CTA HEAD W IVCON, CT BRAIN WO IVCON HISTORY: Word finding difficulty, symptoms resolved. TECHNIQUE: Routine CT of the brain without IV contrast. Next, high resolution axial images were obtained through the head, neck and superior mediastinum following bolus administration of intravenous contrast for CT angiography. 3D maximum intensity projection images were created, reviewed and archived . MQ: CTABNPlus_4 Contrast: 80 mL Omnipaque [address] Radiation dose: Integrated Dose-Length Product (DLP) for this visit = 1364 mGy*cm. CT Dose Reduction Employed: No dose reduction techniques were required COMPARISON: None. RESULT: BRAIN: Acute change: No evidence of an acute infarct or other acute parenchymal process. ASPECT Score = 10 Hemorrhage: No evidence of acute intracranial hemorrhage. ECASS hemorrhagic transformation score: Not Applicable Mass Lesion / Mass Effect: There is no evidence of an intracranial mass or extra-axial fluid collection. No significant mass effect. Chronic change: Patchy foci of low attenuation coefficient are present within white matter which is a nonspecific finding but likely represents moderate microvascular ischemia. Parenchyma: There is moderate generalized volume loss for age. The brain parenchyma is otherwise within normal limits for age. Ventricles: Ventricular enlargement concordant with the degree of parenchymal volume loss. Other: The visualized paranasal sinuses are grossly clear. The skull and visualized extracranial soft tissues are grossly normal. NECK: Soft tissues: The soft tissue planes are maintained throughout. No evidence of a soft tissue mass in the neck or superior mediastinum. No significant lymphadenopathy is seen. Spine: Alignment is normal. Moderate degenerative changes are present. Lung apices: The visualized lung apices are clear. CT ARTERIOGRAM: Extracranial Circulation: Aortic Arch: There is a normal branching pattern from the aortic arch. There is no significant stenosis in the proximal brachiocephalic vessels. Carotid Stenosis: Right Common: No significant stenosis. Right Internal Carotid Plaque: Moderate partially calcified atherosclerotic plaque. Right Internal Carotid Stenosis (% by NASCET Criteria): 40% Left Common: No significant stenosis. Left Internal Carotid Plaque: Mild plaque formation. Left Internal Carotid Stenosis (% by NASCET Criteria): Less than 25% Cervical Vertebral Arteries: Patency: Bilateral Dominance: Right Intracranial Circulation: Anterior Circulation: Mild to moderate stenosis of the bilateral carotid siphons due to circumferential atherosclerotic plaque. Bilateral ACAs and MCAs are patent. No aneurysm is identified. Vertebrobasilar Circulation: Patent bilateral V4 vertebral artery segments, basilar artery, and major branch vessels. Both clinical education manager are patent with conventional origin on the left and origin on the right. Dural venous sinuses and major deep draining veins are patent. Egg Grader (topogram) images: No significant findings. IMPRESSION: 1. No acute intracranial findings. Chronic changes as described. 2. No large vessel occlusion or high-grade arterial stenosis intracranially. 3. No hemodynamically significant stenosis of the extracranial carotid or vertebral artery segments. Arterial blood flow was measured to detect acute large vessel occlusion by computer aided detection software: None. Concordance between software and imaging review: Concordant. Backhaul Driver: DIVINA Transcribe Date/Time: Jun 08 2023 6:48P Dictated by : EL NUNEZ MD This examination was interpreted and the report reviewed and electronically signed by: EL NUNEZ MD on Jun 08 2023 6:55PM EST [id number] [facility] ECG COMPLETEon 06-08-2023 ECG COMPLETE Ventricular Rate : 6 9 BPM Atrial Rate : 69 BPM P-R Interval : 175 ms QRS Duration : 86 ms Q-T Interval : 401 ms QTC Calculation(Bazett) : 430 ms Calculated P [place] : -24 degrees Calculated R [place] : 5 degrees Calculated T [place] : 3 degrees Sinus rhythm Normal ECG 711 No Stemi Confirmed by MD DUEÑAS ERIN ([id number]), graphics editor MARYLIN BRASHER ([id number]) on 06/09/2023 11:03:53 AM NAME : JOSS OROPEZA PID : [id number] : 1945 Gender : Male Race : ORD : [id number] Procedure Date : Jun 08 2023 16:43:30 Edit Date : Jun 09 2023 11:03:57 Diagnosis: Sinus rhythm Normal ECG 711 No Stemi Confirmed by MD DUEÑAS ERIN ([id number]), graphics editor MARYLIN BRASHER ([id number]) on 06/09/2023 11:03:53 AM Test Reason : Stroke Location : 402 : FVED [id number] Overread By : MD DUEÑAS ERIN Edited By : MARYLIN BRASHER Referred By : , Acquired by : [id number], [facility] ED NOTEon 06-08-2023 ED NOTE HNO ID: [id number] Author: XAVIER BUSTAMANTE RN Service: Nursing Author Type: Registered Nurse Type: ED Notes Filed: 06/08/2023 21:55 Note Text: Report called to RN [facility] ED NOTE HNO ID: [id number] Author: XAVIER BUSTAMANTE RN Service: Nursing Author Type: Registered Nurse Type: ED Notes Filed: 06/08/2023 21:00 Note Text: Pt ambulated to restroom and back, he denies using any assistive devices at home. Slightly unsteady gait, he reports this is normal for him. Pt back to room, calls this RN to bedside. Upon returning he had an episode of urinary incontinence, which he reports recently started and he does have an appt scheduled with urology in a week. Pt changed, Bed linens changed. Pt back in bed, bedside monitor in place, VS updated, call light within reach. Awaiting bed assignment [facility] ED NOTE HNO ID: [id number] Author: XAVIER BUSTAMANTE, DERIC Service: Nursing Author Type: Registered Nurse Type: ED Notes Filed: 06/08/2023 19:11 Note Text: Assumed care of pt [facility] ED NOTE HNO ID: [id number] Author: JOHN BROWN RN Service: ? Author Type: Registered Nurse Type: ED Notes Filed: 06/08/2023 19:08 Note Text: Report given to accepting nurse [facility] ED NOTE HNO ID: [id number] Author: JOHN BROWN RN Service: ? Author Type: Registered Nurse Type: ED Notes Filed: 06/08/2023 18:46 Note Text: Patient at restroom at this time. [facility] ED NOTE HNO ID: [id number] Author: JOHN BROWN RN Service: ? Author Type: Registered Nurse Type: ED Notes Filed: 06/08/2023 17:46 Note Text: Hourly neuro checks ok per Dr. Dueñas. [facility] ED NOTE HNO ID: [id number] Author: JOHN BROWN RN Service: ? Author Type: Registered Nurse Type: ED Notes Filed: 06/08/2023 16:44 Note Text: Patient brought in by EMS for stroke like symptoms. [facility] ED NOTE HNO ID: [id number] Author: SRAVANTHI MORRIS RN Service: ? Author Type: Registered Nurse Type: ED Notes Filed: 06/08/2023 16:36 Note Text: Bed: 19-ED Expected date: Expected time: Means of arrival: [place] [facility] Comments: Pre notification 78 male Difficulty finding words x25 mins [id number] HR 98 RR18 98% BGL 227 [facility] ED PROV NOTEon 06-08-2023 ED PROV NOTE HNO ID: [id number] Author: BRENDA DUEÑAS MD Service: ? Author Type: Physician Type: ED Provider Notes Filed: 06/09/2023 02:14 Note Text: ED Provider Note Patient Name: Joss Oropeza : 1945 SERVICE DATE: 06/08/23 History Patient presents with: Potential Stroke Symptoms: Per EMS report, patient brought in for stroke like symptoms. Patient had a hard time finding words. Symptoms resolved before EMS got to the house. EKUK: Patient present with complaint of difficulty speaking. Described as trouble finding words. Onset was prior to arrival, lasted approximately 5 to 10 minutes with resolved course since that time. Patient has past medical history of cancer of unknown origin, diabetes, dyslipidemia, stroke, rheumatic fever, microcytic anemia. Follows with primary in [place], [place]. Patient denies headache, change in vision, facial droop, paresthesias, weakness, chest pain, palpitations, shortness of breath, vertigo, recent head trauma/fall, vomiting, diarrhea, blood in stool, new medications. Symptoms are exacerbated by nothing. Symptoms are relieved by nothing tried. Symptoms had resolved prior to EMS arrival. Associated symptoms include patient was seen 1 week ago at [facility] for episode of shortness of breath and fatigue. History obtained from patient and independent historian EMS. PAST MEDICAL HISTORY Diagnosis Date Cancer of unknown origin (HCC) 12/11/2022 Diabetes (HCC) Dyslipidemia Heart murmur Rheumatic fever Stroke (cerebrum[facility]) 06/24/2020 PAST SURGICAL HISTORY Procedure Laterality Date ADENOIDECTOMY PRIMARY Adenoidectomy COLONOSCOPY FLX DX W/COLLJ SPEC WHEN PFRMD Colonoscopy COLONOSCOPY FLX DX W/COLLJ SPEC WHEN PFRMD Colonoscopy LAPAROSCOPY SURG CHOLECYSTECTOMY Cholecystectomy, lap PAST SURGICAL HISTORY OF 01-17-12 BACK SURGERY PAST SURGICAL HISTORY OF SKIN LESION--PRE CANCER SKULL PAST SURGICAL HISTORY OF SKIN LESION--SKIN CANCER LEFT HAND PICC LINE MRSA INFECTION RT/LT HEART CATHETERS CC AND CA, R AND L heart, NEGATIVE TONSILLECTOMY PRIMARY/SECONDARY Tonsillectomy FAMILY HISTORY Problem Relation Age of Onset Stroke Mother Ischemic Heart Disease Father Social History Tobacco Use Smoking status: Never Smokeless tobacco: Never Vaping Use Vaping Use: Never used Substance and Sexual Activity Alcohol use: Yes Comment: social/rare Drug use: No Sexual activity: Yes Partners: Female ALLERGIES Allergen Reactions Maxipime [Cefepime] Unknown Review of Systems Constitutional: Negative for chills and fever. HENT: Negative for rhinorrhea and sore throat. Eyes: Negative for visual disturbance. Respiratory: Negative for cough and shortness of breath. Cardiovascular: Negative for chest pain. Gastrointestinal: Negative for constipation, diarrhea, nausea and vomiting. Genitourinary: Negative for dysuria and frequency. Musculoskeletal: Negative for arthralgias. Skin: Negative for rash. Neurological: Positive for speech difficulty. Negative for dizziness, weakness, numbness and headaches. Psychiatric/Behavioral: Negative for suicidal ideas. Physical Exam Vitals [06/08/23 1638] BP Pulse Temp Temp src Resp SpO2 Weight Height (!) 209/74 68 36.6 ?C (97.9 ?F) Oral 18 99 % -- -- Physical Exam Vitals and nursing note reviewed. Constitutional: General: He is not in acute distress. Appearance: He is well-developed. HENT: Head: Normocephalic. Eyes: Conjunctiva/sclera: Conjunctivae normal. Comments: No nystagmus Cardiovascular: Rate and Rhythm: Regular rhythm. Bradycardia present. Heart sounds: No murmur heard. Pulmonary: Breath sounds: Normal breath sounds. Chest: Chest wall: No tenderness. Abdominal: General: Bowel sounds are normal. Palpations: Abdomen is soft. Tenderness: There is no rebound. Musculoskeletal: General: Normal range of motion. Cervical back: Neck supple. Comments: Mild tremor right upper extremity Skin: General: Skin is warm and dry. Coloration: Skin is pale. Neurological: General: No focal deficit present. Mental Status: He is alert. Psychiatric: Mood and Affect: Mood normal. NIHSS: 1(a). Mental Status - LOC 0 = Alert and Attentive 1(b). LOC Questions 0 = Correct age and month 1(c). LOC-Commands 0 = Both 2. Gaze 0 = Normal 3. Visual Carnes 0 = Full 4. Facial Weakness 0 = Normal 5(a). Left Arm 0 = No drift 5(b). Right Arm 0 = No drift 6(a). Left Leg 0 = No drift 6(b). Right Leg 0 = No drift 7. Ataxia 0 = Absent 8. Sensory 0 = Normal 9. Aphasia 0 = None 10. Dysarthria 0 = Absent 11. Neglect 0 = None NIHSS Total (0-42): 0 Diagnostic Testing ED Labs Ordered and Reviewed - No data to display IMPRESSION: 1. No acute intracranial findings. Chronic changes as described. 2. No large vessel occlusion or high-grade arterial stenosis intracranially. 3. No (more content not included)... Normal [facility] HIGH SENSITIVITY TROPONIN To n 04-13-2024 Troponin T.cardiac High sensitivity method [Mass/Vol] 18 ng/L High <12 [facility] Comment on above: Order Comment: Speci men Type: BLOOD SPECIMENOrdering Facility: [facility] Address: [address] [place] [address] Result Comment: When assessing risk for acute coronary syndromes: In patients undergoing blood draw greater than or equal to 2 hours from symptom onset, with history of very low to moderate risk and non-ischemic ECG, an initial hs-Troponin T less than 12 ng/L AND a 1 hour delta hs-Troponin T less than 3 ng/L should be considered very low risk for 30 day MACE. Performed By: #### 2 4331-1, HSTNT, 71410-0 ####[facility] LABORATORYCLIA [id number] [place] [address] [place] HISTORY PHYSICALon HISTORY PHYSICAL HNO ID: [id number] Author: FRANKLYN HER APRN.ECHOCARDIOLOGIST Service: General Internal Medicine Author Type: Nurse Practitioner Type: H&P Filed: 06/09/2023 02:38 Note Text: HISTORY AND PHYSICAL EXAMINATION SERVICE DATE: 06/08/2023 SERVICE TIME: 8:42 PM PRIMARY CARE PHYSICIAN: German Robertson MD Subjective CHIEF COMPLAINT: stroke-like symptoms HPI: Patient is a 78 year old male with past medical history of stroke 2020, rheumatic fever, diabetes, microcytic anemia, HLD, BPH, heart murmur who presents with stroke-like symptoms. Patient states around 4pm he was visiting friends, getting ready to go for dinner, when he had trouble finding his words. Patient reveals he had a similar episode of speech difficulty 6 days prior, as well. Today, he was trying to describe this episode to his friends, when again he couldn't get the words out. Patient states his speech was garbled and lasted approximately 5-10 minutes and resolved prior to EMS arrival. Patient denies any unilateral weakness, facial droop, headache, vision changes, paresthesias, chest pain, shortness of breath, palpitations, syncope, fall, head trauma, n/v/d, fevers, chills, recent illness or travel. Patient notes he had a minor stroke on June 24, 2020, where he momentarily loss use of his left arm. Patient notes that he has been feeling generally weak and dizzy, and not like himself for one week. Denies new changes to medications. Denies nicotine, ETOH, or substance abuse. Patient was seen at [facility] 1 week ago for shortness of breath and fatigue. Patient states he was walking outside to take the trash out, when he suddenly became short of breath and felt like he couldn't breathe. Upon his return home, he felt so weak, he sat in his recliner and his daughter called EMS. Chart Review from [facility] 06/04/2023: CXR negative. Troponins flat. No electrolyte abnormalities. No leukocytosis. Anemia at baseline. Patient was not hypoxic or tachycardic. EKG sinus rhythm. Patient was offered observation for further cardiac testing; however, patient declined and wanted to go home. CODE STATUS: Code status discussed with patient and patient wishes to remain: FULL CODE. ED Course: Vitals: T-36.6, P-68, RR-18, BP-209/74, O2-99 on room air. Labs: HST 18, CBC: No leukocytosis, chronic stable anemia H/H 9.3/27.4, platelets 132 chronic thrombocytopenia. BMP: Na-135, no kidney dysfunction. EKG: NSR, rate-69, QTc-430. No acute ischemic changes compared to prior. Interventions: Patient did not receive any medications. Imaging: CT Brain/CTA head/neck: 1. No acute intracranial findings. Chronic changes as described. 2. No large vessel occlusion or high-grade arterial stenosis intracranially. 3. No hemodynamically significant stenosis of the extracranial carotid or vertebral artery segments. Left Common: No significant stenosis. Left Internal Carotid Plaque: Mild plaque formation. Left Internal Carotid Stenosis (% by NASCET Criteria): Less than 25% FUNCTIONAL STATUS: Independent 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 PAST SURGICAL HISTORY Procedure Laterality Date ADENOIDECTOMY PRIMARY Adenoidectomy COLONOSCOPY FLX DX W/COLLJ SPEC WHEN PFRMD Colonoscopy COLONOSCOPY FLX DX W/COLLJ SPEC WHEN PFRMD Colonoscopy LAPAROSCOPY SURG CHOLECYSTECTOMY Cholecystectomy, lap PAST SURGICAL HISTORY OF 01-17-12 BACK SURGERY PAST SURGICAL HISTORY OF SKIN LESION--PRE CANCER SKULL PAST SURGICAL HISTORY OF SKIN LESION--SKIN CANCER LEFT HAND PICC LINE MRSA INFECTION RT/LT HEART CATHETERS CC AND CA, R AND L heart, NEGATIVE TONSILLECTOMY PRIMARY/SECONDARY Tonsillectomy FAMILY HISTORY Problem Relation Age of Onset Stroke Mother Ischemic Heart Disease Father Social History Tobacco Use Smoking status: Never Smokeless tobacco: Never Vaping Use Vaping Use: Never used Substance Use Topics Alcohol use: Yes Comment: social/rare Drug use: No (Not in a hospital admission) ALLERGIES Allergen Reactions Maxipime [Cefepime] Unknown COMPLETE REVIEW OF SYSTEMS: See HPI. ROS negative unless otherwise indicated in HPI. Objective PHYSICAL EXAM: Physical Exam Performed: GENERAL: Alert, awake, and cooperative. In no acute distress. SKIN: Skin color pale, texture, turgor normal. No rashes or lesions. HEAD/SINUSES: NC/AT No nystagmus. OROPHARYNX: MMM dry, poor dentition. NECK: Supple, No jugulovenous distention. BACK: Back symmetric, Normal curvature, ROM normal, No CVAT. LUNGS: Lungs clear in all lobes upon auscultation, Good diaphragmatic excursion. CARDIAC: Normal S1 and S2; no rubs, murmurs, or gallops ABDOMEN: Abdomen soft, non-tender, bowel sounds present EXTREMITIES: Extremities normal, no deformities, edema, clubbing or skin discoloration. (more content not included)... Normal [facility] Lipid 1996 panelon 4 Cholesterol [Mass/Vol] 115 mg/dL Normal <200 [facility] Comment on above: Order Comment: Mathew portillo Type: BLOOD SPECIMENOrdering Facility: [facility] Address: [address] [place] [address] Result Comment: <200 mg/dL, Desirable 200-239 mg/dL, Borderline high >239 mg/dL, High Performed By: #### 2 4331-1, HSTNT, 53473-0 ####[facility] LABORATORYCLIA [id number] [place] [address] [place] Cholesterol in HDL [Mass/Vol] 39 mg/dL Low >39 [facility] Comment on above: Order Comment: Mathew portillo Type: BLOOD SPECIMENOrdering Facility: [facility] Address: [address] [place] [address] Result Comment: 40-5 9 mg/dL, Acceptable >59 mg/dL, High: Negative risk factor for coronary heart disease <40 mg/dL, Low: Positive risk factor for coronary heart disease Performed By: #### 2 4331-1, HSTNT, 27050-1 ####[facility] LABORATORYCLIA [id number] [place] [id number] [place] Cholesterol in LDL [Mass/Vol] 19 mg/dL Normal <100 [facility] Comment on above: Order Comment: Speci men Type: BLOOD SPECIMENOrdering Facility: [facility] Address: [address] [place] [address] Result Comment: <100 mg/dL, Optimal 100-129 mg/dL, Near optimal/above optimal 130-159 mg/dL, Borderline high 160-189 mg/dL, High >189 mg/dL, Very high Secondary prevention optimal LDL Cholesterol levels are recommended to be < 70 mg/dL Performed By: #### 2 4331-1, HSTNT, 16726-5 ####[facility] LABORATORYCLIA [id number] [place] [id number] [place] Cholesterol in LDL/Cholesterol in HDL [Mass ratio] 0.49 {ratio} Normal <2.54 [facility] Comment on above: Order Comment: Speci men Type: BLOOD SPECIMENOrdering Facility: [facility] Address: [address] [place] [address] Result Comment: Eden lang: 1. National Cholesterol Education Program ATP III Guideline At-A-Glance Quick Desk Reference: National Heart, Lung, and Blood [place]. National Institutes of Health. 2001: NIH Publication No. 01-3305. 2. An International Atherosclerosis Society position paper: global recommendations for the management of dyslipidemia: executive summary, Atherosclerosis. 2014: 232(2):410-413. Performed By: #### 2 4331-1, HSTNT, 87710-6 ####[facility] LABORATORYCLIA [id number] [place] [address] [place] Cholesterol in VLDL [Mass/Vol] 57 mg/dL High <30 [facility] Comment on above: Order Comment: Speci men Type: BLOOD SPECIMENOrdering Facility: [facility] Address: [address] [place] [address] Performed By: #### 2 4331-1, HSTNT, 65626-5 ####[facility] LABORATORYCLIA [id number] [place] [address] [place] Cholesterol non HDL [Mass/Vol] 76 mg/dL Normal <130 [facility] Comment on above: Order Comment: Speci men Type: BLOOD SPECIMENOrdering Facility: [facility] Address: [address] [place] [address] Result Comment: <130 mg/dL, Optimal 130-159 mg/dL, Near optimal/above optimal 160-189 mg/dL, Borderline high 190-219 mg/dL, High >219 mg/dL, Very high Secondary prevention optimal non HDL Cholesterol levels are recommended to be <100 mg/dL Performed By: #### 2 4331-1, HSTNT, 25616-9 ####[facility] LABORATORYCLIA [id number] [place] [id number] [place] Cholesterol.total/Ch olesterol in HDL [Mass ratio] 2.95 {ratio} Normal <5.10 [facility] Comment on above: Order Comment: Speci men Type: BLOOD SPECIMENOrdering Facility: [facility] Address: [address] [place] [address] Performed By: #### 2 4331-1, HSTNT, 26689-0 ####[facility] LABORATORYCLIA [id number] [place] [id number] [place] FASTING TIME Normal [facility] Comment on above: Order Comment: Speci men Type: BLOOD SPECIMENOrdering Facility: [facility] Address: [address] [place] [address] Result Comment: Unkn own Performed By: #### 2 4331-1, HSTNT, 65758-4 ####[facility] LABORATORYCLIA [id number] [place] [address] [place] Triglyceride [Mass/Vol] 284 mg/dL High <150 [facility] Comment on above: Order Comment: Speci men Type: BLOOD SPECIMENOrdering Facility: [facility] Address: [address] [place] [address] Result Comment: <150 mg/dL, Normal 150-199 mg/dL, Borderline high 200-499 mg/dL, High >499 mg/dL, Very high Performed By: #### 2 4331-1, HSTNT, 81620-8 ####[facility] LABORATORYCLIA [id number] [place] [id number] [place] PT panel Coag (PPP)on 2023 INR Coag (PPP) [Relative time] 1.1 {INR} Normal 0.9-1.3 [facility] Comment on above: Order Comment: Mathew portillo Type: BLOOD SPECIMENOrdering Facility: [facility] Address: [address] [place] [address] Result Comment: Kaila min K Antagonist (VKA) Therapeutic Range: INR 2 to 3 (Target INR of 2.5) Note: For patients treated with VKA drugs, such as warfarin, the [employer] 2012 Guideline recommends a therapeutic INR range of 2 to 3 (target INR of 2.5). This recommendation includes high-risk patients with antiphospholipid syndrome with previous arterial or venous thromboembolism, current-generation mechanical or bioprosthetic aortic heart valve replacement. Note: Patients with mechanical aortic valve replacement and additional risk factors for thromboembolic events (atrial fibrillation, previous thromboembolism, LV dysfunction, hypercoagulable conditions) or an older generation mechanical AVR (i.e., ball in-Cage) or any mechanical MVR should have a INR therapeutic range of 2.5 to 3.5 (target INR of 3). Mary DAMICO, et al. Chest 2012, 141:7S-47S Heike RA, et al. [facility] 2017, 70: 252-289 Performed By: #### 3 4528-0, 31270-3 ####[facility] LABORATORYCLIA [id number] [place] [id number] [place] PT Coag (PPP) [Time] 11.7 s Normal 9.7-13.0 [facility] Comment on above: Order Comment: Mathew portillo Type: BLOOD SPECIMENOrdering Facility: [facility] Address: [address] [place], [place] [address] [place] [id number] Performed By: #### 3 4528-0, 72386-8 ####[facility] LABORATORYCLIA [id number] [place] [id number] [place] [facility] aPTT PPPon 06-08-2023 aPTT Coag (PPP) [Time] 21.7 s Low 23.0-32.4 [facility] Comment on above: Order Comment: Speci men Type: BLOOD SPECIMENOrdering Facility: [facility] Address: [address] [place] [address] Performed By: #### 3 4528-0, 00919-4 ####[facility] LABORATORYCLIA [id number] [place] [id number] [place] CBC W Auto Differential pane l (Bld)on 05-30-2023 Basophils (Bld) [#/Vol] <0.11 k/uL [facility] Basophils/100 WBC (Bld) 0.4 % [facility] Differential cell count method Nom (Bld) Auto [facility] Eosinophils (Bld) [#/Vol] <0.46 k/uL [facility] Eosinophils/100 WBC (Bld) 0.4 % [facility] Erythrocyte distribution width (RBC) [Ratio] 16.2 % High 11.5 - 15.0 % [facility] Hematocrit (Bld) [Volume fraction] 26.0 % Low 39.0 - 51.0 % [facility] Hemoglobin (Bld) [Mass/Vol] 8.4 g/dL Low 13.0 - 17.0 g/dL [facility] Immature granulocytes (Bld) [#/Vol] <0.10 k/uL [facility] Immature granulocytes/100 WBC (Bld) 0.2 % [facility] Lymphocytes (Bld) [#/Vol] 1.90 10*3/uL 1.00 - 4.00 k/uL [facility] Lymphocytes/100 WBC (Bld) 36.3 % [facility] MCH (RBC) [Entitic mass] 39.6 pg High 26.0 - 34.0 pg [facility] MCHC (RBC) [Mass/Vol] 32.3 g/dL 30.5 - 36.0 g/dL [facility] MCV (RBC) [Entitic vol] 122.6 fL High 80.0 - 100.0 fL [facility] Monocytes (Bld) [#/Vol] 0.30 10*3/uL <0.87 k/uL [facility] Monocytes/100 WBC (Bld) 5.7 % [facility] Neutrophils (Bld) [#/Vol] 2.98 10*3/uL 1.45 - 7.50 k/uL [facility] Neutrophils/100 WBC (Bld) 57.0 % [facility] Nucleated RBC (Bld) [#/Vol] [facility] Nucleated RBC/100 WBC (Bld) [Ratio] [facility] Platelet mean volume (Bld) [Entitic vol] 11.9 fL 9.0 - 12.7 fL [facility] Platelets (Bld) [#/Vol] 134 10*3/uL Low 150 - 400 k/uL [facility] RBC (Bld) [#/Vol] 2.12 10*6/uL Low 4.20 - 6.0 0 m/uL [facility] WBC (Bld) [#/Vol] 5.23 10*3/uL 3.70 - 11. 00 k/uL [facility] TYPE + SCREENon 05-30-2023 ABO group Nom (Bld) B [facility] Blood group antibody screen Ql Negative [facility] HIstorical Ab Scr Status Negative [facility] Rh Nom (Bld) Positive [facility] Type and Screen Expiration 06/02/2023 23:59 [facility] CBC W Auto Differential pane l (Bld)on 05-10-2023 Basophils (Bld) [#/Vol] 0.03 10*3/uL <0.11 k/uL [facility] Basophils/100 WBC (Bld) 0.6 % [facility] Differential cell count method Nom (Bld) Auto [facility] Eosinophils (Bld) [#/Vol] 0.03 10*3/uL <0.46 k/uL [facility] Eosinophils/100 WBC (Bld) 0.6 % [facility] Erythrocyte distribution width (RBC) [Ratio] 17.2 % High 11.5 - 15.0 % [facility] Hematocrit (Bld) [Volume fraction] 25.3 % Low 39.0 - 51.0 % [facility] Hemoglobin (Bld) [Mass/Vol] 8.4 g/dL Low 13.0 - 17.0 g/dL [facility] Immature granulocytes (Bld) [#/Vol] <0.10 k/uL [facility] Immature granulocytes/100 WBC (Bld) 0.4 % [facility] Lymphocytes (Bld) [#/Vol] 1.74 10*3/uL 1.00 - 4.00 k/uL [facility] Lymphocytes/100 WBC (Bld) 35.7 % [facility] MCH (RBC) [Entitic mass] 40.0 pg High 26.0 - 34.0 pg [facility] MCHC (RBC) [Mass/Vol] 33.2 g/dL 30.5 - 36.0 g/dL [facility] MCV (RBC) [Entitic vol] 120.5 fL High 80.0 - 100.0 fL [facility] Monocytes (Bld) [#/Vol] 0.27 10*3/uL <0.87 k/uL [facility] Monocytes/100 WBC (Bld) 5.5 % [facility] Neutrophils (Bld) [#/Vol] 2.79 10*3/uL 1.45 - 7.50 k/uL [facility] Neutrophils/100 WBC (Bld) 57.2 % [facility] Nucleated RBC (Bld) [#/Vol] [facility] Nucleated RBC/100 WBC (Bld) [Ratio] [facility] Platelet mean volume (Bld) [Entitic vol] 10.7 fL 9.0 - 12.7 fL [facility] Platelets (Bld) [#/Vol] 107 10*3/uL Low 150 - 400 k/uL [facility] RBC (Bld) [#/Vol] 2.10 10*6/uL Low 4.20 - 6.0 0 m/uL [facility] WBC (Bld) [#/Vol] 4.88 10*3/uL 3.70 - 11. 00 k/uL [facility] TYPE + SCREENon 05-10-2023 ABO group Nom (Bld) B [facility] Blood group antibody screen Ql Negative [facility] HIstorical Ab Scr Status Negative [facility] Rh Nom (Bld) Positive [facility] Type and Screen Expiration 05/13/2023 23:59 [facility] CBC W Auto Differential pane l (Bld)on 03-29-2023 Basophils (Bld) [#/Vol] <0.11 k/uL [facility] Basophils/100 WBC (Bld) 0.4 % [facility] Differential cell count method Nom (Bld) Auto [facility] Eosinophils (Bld) [#/Vol] <0.46 k/uL [facility] Eosinophils/100 WBC (Bld) 0.4 % [facility] Erythrocyte distribution width (RBC) [Ratio] 19.7 % High 11.5 - 15.0 % [facility] Hematocrit (Bld) [Volume fraction] 25.4 % Low 39.0 - 51.0 % [facility] Hemoglobin (Bld) [Mass/Vol] 8.5 g/dL Low 13.0 - 17.0 g/dL [facility] Immature granulocytes (Bld) [#/Vol] <0.10 k/uL [facility] Immature granulocytes/100 WBC (Bld) 0.2 % [facility] Lymphocytes (Bld) [#/Vol] 2.16 10*3/uL 1.00 - 4.00 k/uL [facility] Lymphocytes/100 WBC (Bld) 38.0 % [facility] MCH (RBC) [Entitic mass] 39.0 pg High 26.0 - 34.0 pg [facility] MCHC (RBC) [Mass/Vol] 33.5 g/dL 30.5 - 36.0 g/dL [facility] MCV (RBC) [Entitic vol] 116.5 fL High 80.0 - 100.0 fL [facility] Monocytes (Bld) [#/Vol] 0.25 10*3/uL <0.87 k/uL [facility] Monocytes/100 WBC (Bld) 4.4 % [facility] Neutrophils (Bld) [#/Vol] 3.22 10*3/uL 1.45 - 7.50 k/uL [facility] Neutrophils/100 WBC (Bld) 56.6 % [facility] Nucleated RBC (Bld) [#/Vol] [facility] Nucleated RBC/100 WBC (Bld) [Ratio] [facility] Platelet mean volume (Bld) [Entitic vol] 11.4 fL 9.0 - 12.7 fL [facility] Platelets (Bld) [#/Vol] 126 10*3/uL Low 150 - 400 k/uL [facility] RBC (Bld) [#/Vol] 2.18 10*6/uL Low 4.20 - 6.0 0 m/uL [facility] WBC (Bld) [#/Vol] 5.68 10*3/uL 3.70 - 11. 00 k/uL [facility] RED BLOOD CELLS, ADULTon ABO and Rh group Nom (Bld) 7300 [facility] ABO and Rh group Nom (Bld) Blood group B Rh(D) positive [facility] Expiration Date [id number] [facility] Issue Date/Time [id number] [facility] Product Code [id number] [facility] Product Expiration Date 03/07/2023 23:59 [facility] Product Identification Red Blood Cells [facility] Status Information Issued Final [facility] Unit Number [id number] [facility] XM RESULT Compatible [facility] Whole blood hemoglobin A1c/t otal hemoglobin ratio (mass fraction)Ordered By: Dr. Londono on 07-26-2022 HbA1c (Bld) [Mass fraction] 7.7 % 3.8-5.6 [facility] Comment on above: Normal < 5.7 % Predi abetic 5.7 - 6.4 % Diabetic >or= 6.5 % Please note range changes. ERYTHROPOIETIN/EPOon 023 Erythropoietin (EPO) Qn 879.9 [IU]/L High [facility] Erythropoietin (EPO) Qnon Interpretation and review of laboratory results Abnormal [facility] Test analyzed by the Kajal DxI method. [facility] CBC W Auto Differential pane l (Bld)on 07-03-2022 Basophils (Bld) [#/Vol] NINF [facility] Basophils/100 WBC (Bld) 0.0 % [facility] Differential cell count method Nom (Bld) Auto [facility] Eosinophils (Bld) [#/Vol] NINF [facility] Eosinophils/100 WBC (Bld) 0.2 % [facility] Erythrocyte distribution width (RBC) [Ratio] 20.1 % High 11.5 - 15.0 % [facility] Hematocrit (Bld) [Volume fraction] 23.3 % Low 39.0 - 51.0 % [facility] Hemoglobin (Bld) [Mass/Vol] 7.6 g/dL Low 13.0 - 17.0 g/dL [facility] Immature granulocytes (Bld) [#/Vol] 0.05 10*3/uL NINF [facility] Immature granulocytes/100 WBC (Bld) 0.9 % [facility] Interpretation and review of laboratory results Abnormal [facility] Lymphocytes (Bld) [#/Vol] 1.44 10*3/uL [facility] Lymphocytes/100 WBC (Bld) 26.6 % [facility] MCH (RBC) [Entitic mass] 37.3 pg High 26.0 - 34.0 pg [facility] MCHC (RBC) [Mass/Vol] 32.6 g/dL 30.5 - 36.0 g/dL [facility] MCV (RBC) [Entitic vol] 114.2 fL High 80.0 - 100.0 fL [facility] Monocytes (Bld) [#/Vol] 0.21 10*3/uL [facility] Monocytes/100 WBC (Bld) 3.9 % [facility] Neutrophils (Bld) [#/Vol] 3.70 10*3/uL [facility] Neutrophils/100 WBC (Bld) 68.4 % [facility] Nucleated RBC (Bld) [#/Vol] [facility] Nucleated RBC/100 WBC (Bld) [Ratio] 0.0 % /100 WBC [facility] Platelet mean volume (Bld) [Entitic vol] 11.2 fL 9.0 - 12.7 fL [facility] Platelets (Bld) [#/Vol] 116 10*3/uL Low [facility] RBC (Bld) [#/Vol] 2.04 10*6/uL Low 4.20 - 6.0 0 m/uL [facility] WBC (Bld) [#/Vol] 5.41 10*3/uL [facility] Comprehensive metabolic 2000 panelon 07-03-2022 Albumin [Mass/Vol] 4.1 g/dL 3.9 - 4.9 g/dL [facility] ALP [Catalytic activity/Vol] 54 U/L 38 - 113 U/L [facility] ALT With P-5'-P [Catalytic activity/Vol] 13 U/L 10 - 54 U/L [facility] Anion gap [Moles/Vol] 13 mmol/L 9 - 18 mmol/L [facility] AST With P-5'-P [Catalytic activity/Vol] 18 U/L 14 - 40 U/L [facility] Bilirubin [Mass/Vol] 0.2 mg/dL 0.2 - 1 .3 mg/dL [facility] Calcium [Mass/Vol] 9.5 mg/dL 8.5 - 10. 2 mg/dL [facility] Chloride [Moles/Vol] 102 mmol/L 97 - 10 5 mmol/L [facility] CO2 [Moles/Vol] 22 mmol/L 22 - 30 mmol/L [facility] Creatinine [Mass/Vol] 0.87 mg/dL 0.73 - 1.22 mg/dL [facility] GFR/1.73 sq M.predicted among non-blacks MDRD (S/P/Bld) [Vol rate/Area] 88 mL/min/{1.73_m2} - PINF [facility] Comment on above: Estimated Glomerular Filtration Rate (eGFR) is calculated using the 2020 CKD-EPI creatinine equation. This equation utilizes serum creatinine, sex, and age as parameters. The creatinine assay has traceable calibration to isotope dilution-mass spectrometry. Refer to KDIGO guidelines for clinical interpretation. In patients with unstable renal function, e.g. those with acute kidney injury, the eGFR may not accurately reflect actual GFR. Glucose [Mass/Vol] 232 mg/dL High 74 - 99 mg/dL [facility] Comment on above: The [place] [employer] (ADA) provides guidance for cutoff values for fasting glucose and random glucose. The ADA defines fasting as no caloric intake for at least 8 hours. Fasting plasma glucose results between 100 to 125 mg/dL indicate increased risk for diabetes (prediabetes). Fasting plasma glucose results greater than or equal to 126 mg/dL meet the criteria for diagnosis of diabetes. In the absence of unequivocal hyperglycemia, results should be confirmed by repeat testing. In a patient with classic symptoms of hyperglycemia or hyperglycemic crisis, random plasma glucose results greater than or equal to 200 mg/dL meet the criteria for diagnosis of diabetes. Reference: Standards of Medical Care in Diabetes 2016, [place] [employer]. Diabetes Care. 2016.39(Suppl 1). Interpretation and review of laboratory results Abnormal [facility] Potassium [Moles/Vol] 4.5 mmol/L 3.7 - 5.1 mmol/L [facility] Protein [Mass/Vol] 6.8 g/dL 6.3 - 8.0 g/dL [facility] Sodium [Moles/Vol] 137 mmol/L 136 - 144 mmol/L [facility] Urea nitrogen [Mass/Vol] 15 mg/dL 9 - 24 mg/dL [facility] RETIC COUNTon 07-03-2022 Reticulocytes (Bld) [#/Vol] 0.037 10*3/uL [facility] Reticulocytes (Bld) [#/Vol]o n 07-03-2022 Interpretation and review of laboratory results Normal [facility] Reticulocytes/100 RBC (Bld) 1.8 % 0.4 - 2.0 % [facility] CBC W Auto Differential pane l (Bld)on 06-01-2022 Basophils (Bld) [#/Vol] <0.11 k/uL [facility] Basophils/100 WBC (Bld) 0.2 % [facility] Eosinophils (Bld) [#/Vol] <0.46 k/uL [facility] Eosinophils/100 WBC (Bld) 0.5 % [facility] Immature granulocytes (Bld) [#/Vol] <0.10 k/uL [facility] Immature granulocytes/100 WBC (Bld) 0.5 % [facility] Lymphocytes (Bld) [#/Vol] 1.08 10*3/uL 1.00 - 4.00 k/uL [facility] Lymphocytes/100 WBC (Bld) 24.9 % [facility] Monocytes (Bld) [#/Vol] 0.25 10*3/uL <0.87 k/uL [facility] Monocytes/100 WBC (Bld) 5.8 % [facility] Neutrophils (Bld) [#/Vol] 2.95 10*3/uL 1.45 - 7.50 k/uL [facility] Neutrophils/100 WBC (Bld) 68.1 % [facility] CBC panel Auto (Bld)on 06-01 Erythrocyte distribution width (RBC) [Ratio] 21.1 % High 11.5 - 15.0 % [facility] Hematocrit (Bld) [Volume fraction] 24.8 % Low 39.0 - 51.0 % [facility] Hemoglobin (Bld) [Mass/Vol] 8.1 g/dL Low 13.0 - 17.0 g/dL [facility] MCH (RBC) [Entitic mass] 35.7 pg High 26.0 - 34.0 pg [facility] MCHC (RBC) [Mass/Vol] 32.7 g/dL 30.5 - 36.0 g/dL [facility] MCV (RBC) [Entitic vol] 109.3 fL High 80.0 - 100.0 fL [facility] Nucleated RBC (Bld) [#/Vol] <0.01 k/uL [facility] Platelet mean volume (Bld) [Entitic vol] 10.9 fL 9.0 - 12.7 fL [facility] Platelets (Bld) [#/Vol] 134 10*3/uL Low 150 - 400 k/uL [facility] RBC (Bld) [#/Vol] 2.27 10*6/uL Low 4.20 - 6.0 0 m/uL [facility] WBC (Bld) [#/Vol] 4.37 10*3/uL 3.70 - 11. 00 k/uL [facility] FLOW CYTOMETRY BONE MARROW H OLD (BMHOLD)on 06-01-2022 Flow Cytometry Order Status See Results in chart under F case ID [facility] IMAGING GUIDED BONE MARROW B IOPSY AND ASPIRATION (CIARAN)([place] [facility])on 06-01-2022 [facility] PT panel Coag (PPP)on 2022 INR Coag (PPP) [Relative time] 1.0 {INR} 0.9 - 1.3 [facility] PT Coag (PPP) [Time] 11.2 s 9.7 - 1 3.0 sec [facility] Laboratory - Hematology and Cell countson 04-13-2022 HbA1c (Bld) [Mass fraction] 8.1 % [facility] US ABD RT UPPER QUADRANTon 0 11-24-2021 [facility] Glucose Glucometer (BldC) [M ass/Vol]on 09-07-2021 Glucose [Mass/Vol] 186 mg/dL 74-106 [facility] Work Phone: Comment on above: MANAGEMENT OF PATIEN T CARE PER NURSING PROTOCOL Clinic Note - Heme Oncon Clinic Note - Heme Onc History of Present Illness:Interval History:DIAGNOSES: 1. Weight loss most likely related to history of diskitis and IVantibiotic after kyphoplasty. 2. Weight loss, later stabilized. 3. Diabetesmellitus. 4. Skin cancer removed from the palm and left ear in the past. 5.Chronic back pain for which he had a kyphoplasty, later got infected andreceived IV antibiotics. 6. Enlarged prostate in September 2016, was placed onProscar for that. 7. Colonoscopy done a couple of years [place]. 8. Rotator cuff surgery. 9. Cholecystectomy.INTERVAL HISTORY: The patient is here today for followup after he was evaluatedfor weight loss, and he was concerned about possible malignancy and wanted tosee if we can do preliminary testing for malignancy. The patient now returnstoday for followup and review of testing. The patient has been doing well.Denies any headache, fever, cough, chest pain, shortness of breath, urinarysymptom. Overall feels good, and his weight loss has stabilized and does notlose any weight. His back pain has improved and does not have any new symptoms. PHYSICAL EXAMINATION: GENERAL: Conscious, A and O x3, no acute distress.VITALS: Noted. HEENT: Normocephalic, [place], no icterus. Conjunctiva and pharynxare pink. Oral mucosa moist. No nasal discharge. NECK: Supple, no cervical/SClymphadenopathy. CHEST: Bilateral symmetrical, bilateral AE. CVS: S1, S2, RR.ABDOMEN: Soft, NT, no hepatosplenomegaly/masses, bowel sounds positive. FISH PITCHER:Speech normal. EXTREMITIES: No C/C/E. SKIN: No petechiae.LAB WORK: In January 2017, showed WBC 7.0, hemoglobin 13.0, MCV 103, . Ferritin was 687, serum protein immunoelectrophoresis normal, ironsaturation 37, ferritin was 687, LDH 112, B12 was 579.ASSESSMENT/PLAN: Mr. Oropeza, who is a 72-year-old gentleman, who haddiabetes and chronic back pain had a kyphoplasty and later developosteomyelitis requiring IV antibiotic, and after that he lost [id number] weight, although his weight loss has stabilized, and the patient is upto date on his cancer screening. I had a long discussion with the patient andexplained to him that the most common malignancies required screening whichincludes colon cancer, prostate cancer, lung cancer provided somebody has [id number] smoking history, but there is no other definite screeningrecommended for other malignancies. The patient already is up to date with thePSA, colonoscopy, has never smoked, and there is no indication of lung cancerscreening, also sees a data integrity analyst for periodic skin exam for skinmalignancies. In the meantime, his CBC, LDH, serum protein electrophoresis areall within normal limits. At this time, I would recommend no further workup. [facility] offered a CT of the chest, abdomen, and pelvis keeping in mind insurancewill not approve those thing as especially there is no clear indication andapproximately 20% of the time it may have a false positive scar or other benignetiology and may require additional workup. The patient is agreeable not to doany imaging at this time. At this time, I will release him from my office.Advised to follow up with Dr. Robertson with yearly physical, and I will behappy to reevaluate in case any new concern arises. Plan was discussed. Thepatient was pleased.Carlos De Luna MDHematology-OncologyMedina /[place] OfficePhone Fax [facility] OfficePhone Fax Allergies and Intolerances: Allergies: cefepime: Drug, Rash, ActiveOutpatient Medication Profile:* Patient Currently Takes Medications as of 11-Jun-2017 15:27 documented inStructured Notes Vitamin B12 1000 mcg oral tablet: Last Dose Taken: , 1 tab(s) orally once aday alendronate 70 mg oral tablet: Last Dose Taken: , 1 tab(s) orally once a week Aspirin Low Dose 81 mg oral delayed release tablet: Last Dose Taken: , 1tab(s) orally once a day Multiple Vitamins oral tablet: Last Dose Taken: , 1 tab(s) orally once a day metFORMIN 850 mg oral tablet: Last Dose Taken: , 1 tab(s) orally 3 times aday Proscar 5 mg oral tablet: Last Dose Taken: , 1 tab(s) orally once a day Januvia 100 mg oral tablet: Last Dose Taken: , 1 tab(s) orally once a day Flomax 0.4 mg oral capsule: Last Dose Taken: , 1 cap(s) orally once a dayFamily History: No Family History items are recorded in the problem list.Social History:Smoking Status: never smoker (1)Alcohol Use: occasionally(1)Drug Use: denies (1)Additional History: ALLERGY: TO CEFEPIME, CAUSES RASH. FAMILY HISTORY: Mother had thyroid cancer.One sister had lung cancer, other sister had also lung cancer, a third sisterhad breast cancer. One brother had lung cancer. 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 Never smoked. Alcohol, once a year.No illicit drug use. (1)Vitals and Measurements:Vitals: Temp: 36.6 HR: 75 RR: 18 BP: 127/75 SPO2%: 96Measurements: HT(cm): 176.9 WT(kg): 96.9 BSA: 2.18 BMI: 30.9Second Set of Vitals/Vitals Comment: Weight= with shoes on(2)Lab Results:? ResultsCBC date/time WBC HGB HCT PLT [id number] 11:52 7.0 13.0(L) 39.8(L) 136(L) 4.27LDH date/time [id number] 11:51 N/APatient Instructions:Instructions:n o0 f/uNote Recipients: German Robertson MD - [id number] Yes when ready to send to Provider(s) Listed Above: Note sent toproviders named aboveElectronic Signatures:Carlos De Luna) (Signed 14-Jun-2017 08:36) Authored: History of Present Illness, Allergies and Outpatient MedicationProfile, Problem List, Social History, Performance Assessments, Vitals andMeasurements, Physical Exam, Results, Patient Instructions, To Send Documentvia Auto FaxLast Updated: 14-Jun-2017 08:36 by Carlos De Luna)References:1. Data Referenced From Clinic Note - Heme Onc 01/25/2017 11:35 AM2. Data Referenced From Clinic Note - Intake 06/11/2017 03:19 PM Normal [facility] Clinic Note - Intakeon 06-11 Clinic Note - Intake Patient Visit Infor mation:? Visit Type Follow Up Visit? Patient States follow up appt.? Source of Information patientAdmission Information:? Admission Since Last Visit NoVital Signs:? Temp (degrees C) 36.6 degrees C? Temperature tympanic? Heart Rate (beats/min) 75 beats per minute? Respiration (breaths/min) 18 breath per minute? BP Systolic (mm Hg) 127 mmHg? BP Diastolic (mm Hg) 75 mmHg? BP Mean (mm Hg) 92 mmHg? Height in cm 176.9 centimeter(s)? Height Method stated 01/25/17? Height standing? Weight in kg 96.9 kilogram(s)? Weight Method standing scale? BMI (kg/m2) 30.9? BSA (m2) 2.18? Second Set of Vitals/Vitals Comment Weight= with shoes on? SpO2 (%) 96 %? SpO2 Patient On room airPain Screening:? Patient States Pain no (0)R Developer for intimate exam offered to patient:? Patient has declined Allergies: cefepime: Drug, Rash, ActiveOutpatient Medication Profile:* Patient Currently Takes Medications as of 11-Jun-2017 15:27 documented inStructured Notes Vitamin B12 1000 mcg oral tablet: Last Dose Taken: , 1 tab(s) orally once aday alendronate 70 mg oral tablet: Last Dose Taken: , 1 tab(s) orally once a week Aspirin Low Dose 81 mg oral delayed release tablet: Last Dose Taken: , 1tab(s) orally once a day Multiple Vitamins oral tablet: Last Dose Taken: , 1 tab(s) orally once a day metFORMIN 850 mg oral tablet: Last Dose Taken: , 1 tab(s) orally 3 times aday Proscar 5 mg oral tablet: Last Dose Taken: , 1 tab(s) orally once a day Januvia 100 mg oral tablet: Last Dose Taken: , 1 tab(s) orally once a day Flomax 0.4 mg oral capsule: Last Dose Taken: , 1 cap(s) orally once a dayEach Visit:Have you fallen in the last 6 months? noDo you have a fear of falling? noIs the patient using an assistive device noDo you feel you need assistance? noAre there cultural/spiritual/religiou s practices/values/needs important for usto know during your visit today noElectronic Signatures:Jessie Nunez I) (Signed 11-Jun-2017 15:27) Authored: Patient Visit Information, Vital Signs, R Developer, Allergies,Outpatient Medication Profile, Adult Admission Risk ScreenLast Updated: 11-Jun-2017 15:27 by Jessie Nunez (PHIL Mueller) Normal [facility] NAEL PATH REVIEWon 01-29-2017 PATH REVIEW-NAEL SORIN Normal [facility] Comment on above: Result Comment: By h er/his signature above, the Pathologist listed as making the final interpretation certifies that she/he has personally reviewed this case. Performed By: #### P R34 ####[facility] [place] [address] PROTEIN ELECTROPHORESIS + IM MUNOFIXATION, SERUMon 01-29-2017 IMMUNOFIXATION INTERP NORMAL Normal [facility] Comment on above: Result Comment: NO D EFINITE MONOCLONAL PROTEINS DETECTED BY IMMUNOFIXATION. Performed By: #### I FE2 ####[facility] [place] [address] INTERPRETATION NORMAL Normal [facility] Comment on above: Performed By: #### I FE2 ####[facility] [place] [address] MONOCLONAL PROTEIN NONE DETECTED Normal [facility] Comment on above: Performed By: #### I FE2 ####[facility] [place] [address] SPE PATH REVIEWon 01-29-2017 PATH REVIEW-SPE SORIN Normal [facility] Comment on above: Result Comment: By h er/his signature above, the Pathologist listed as making the final interpretation certifies that she/he has personally reviewed this case. Performed By: #### P R12 ####[facility] [place] [address] PROTEIN ELECTROPHORESIS + IM MUNOFIXATION, SERUMon 01-28-2017 GAMMA GLOBULIN 1.1 g/dL Normal 0.5 - 1.4 [facility] Comment on above: Performed By: #### I FE2 ####[facility] [place] [address] Albumin 4.1 g/dL Normal 3.4 - 5.0 [facility] Comment on above: Performed By: #### I FE2 ####[facility] [place] [address] ALPHA 1 GLOBULIN 0.3 g/dL Normal 0.2 - 0.6 [facility] Comment on above: Performed By: #### I FE2 ####[facility] [place] [address] ALPHA 2 GLOBULIN 0.8 g/dL Normal 0.4 - 1.1 [facility] Comment on above: Performed By: #### I FE2 ####[facility] [place] [address] BETA GLOBULIN 0.8 g/dL Normal 0.5 - 1.2 [facility] Comment on above: Performed By: #### I FE2 ####[facility] [place] [address] CBC AND DIFFERENTIALon 01-25 % NEUTROPHIL 61.5 % Normal 40.0 - 80.0 [facility] Comment on above: Performed By: #### C BCDF ####[facility] [address] [address] Basophils/100 WBC Auto (Bld) 0.01 x10E9/L Normal 0.00 - 0.10 [facility] Comment on above: Performed By: #### C BCDF ####[facility] [address] [address] Basophils/100 WBC Auto (Bld) 0.1 % Normal 0.0 - 2.0 [facility] Comment on above: Performed By: #### C BCDF ####[facility] [address] [address] Eosinophils 0.05 10*3/uL Normal 0.00 - 0.40 [facility] Comment on above: Performed By: #### C BCDF ####[facility] [address] [address] Eosinophils/100 leukocytes 0.7 % Normal 0.0 - 6.0 [facility] Comment on above: Performed By: #### C BCDF ####[facility] [address] [address] Erythrocyte distribution width Auto Ratio (RBC) 15.9 % High 11.5 - 14.5 [facility] Comment on above: Performed By: #### C BCDF ####[facility] [address] [address] Erythrocytes (RBC) 3.86 x10E12/L Low 4.50 - 5.90 [facility] Comment on above: Performed By: #### C BCDF ####[facility] [address] [address] Hematocrit (HCT) 39.8 % Low 41.0 - 52.0 [facility] Comment on above: Performed By: #### C BCDF ####[facility] [address] [address] Hemoglobin mass conc (Bld) 13.0 g/dL Low 13.5 - 17.5 [facility] Comment on above: Performed By: #### C BCDF ####[facility] [address] [address] Lymphocytes 2.00 10*3/uL Normal 0.80 - 3.00 [facility] Comment on above: Performed By: #### C BCDF ####[facility] [address] [address] Lymphocytes/100 leukocytes 28.8 % Normal 13.0 - 44.0 [facility] Comment on above: Performed By: #### C BCDF ####[facility] [address] [address] MCHC mass conc (RBC) 32.7 g/dL Normal 32.0 - 36.0 [facility] Comment on above: Performed By: #### C BCDF ####[facility] [address] [address] MCV 103 fL High 80 - 100 [facility] Comment on above: Performed By: #### C BCDF ####[facility] [address] [address] Monocytes 0.62 10*3/uL Normal 0.05 - 0.80 [facility] Comment on above: Performed By: #### C BCDF ####[facility] [address] [address] Monocytes/100 leukocytes 8.9 % Normal 2.0 - 10.0 [facility] Comment on above: Performed By: #### C BCDF ####[facility] [address] [address] Neutrophils 4.27 10*3/uL Normal 1.60 - 5.50 [facility] Comment on above: Result Comment: Perc ent differential counts (%) should be interpreted in the context of the absolute cell counts (cells/L). Performed By: #### C BCDF ####[facility] [address] [address] Platelets 136 10*3/uL Low 150 - 450 [facility] Comment on above: Performed By: #### C BCDF ####[facility] [address] [address] WBC (Leukocytes) 7.0 10*3/uL Normal 4.4 - 11.3 [facility] Comment on above: Performed By: #### C BCDF ####[facility] [address] [address] FERRITINon 01-25-2017 FERRITIN 687 ug/L High 20 - 300 [facility] Comment on above: Performed By: #### F ERRI ####[facility] [place] [address] IRON + TIBCon 01-25-2017 % SATURATION 37 % Normal 25 - 45 [facility] Comment on above: Performed By: #### Magdalena AGUILAR ####[facility] [place] [address] Iron 127 ug/dL Normal 35 - 150 [facility] Comment on above: Performed By: #### Magdalena AGUILAR ####[facility] [place] [address] TIBC 347 ug/dL Normal 240 - 445 [facility] Comment on above: Performed By: #### I RONT ####[facility] [place] [address] LDHon 01-25-2017 LDH 122 U/L Normal 84 - 246 [facility] Comment on above: Performed By: #### L DH ####[facility] [place] [address] PROTEIN ELECTROPHORESIS + IM MUNOFIXATION, SERUMon 01-25-2017 Protein 7.1 g/dL Normal 6.4 - 8.2 [facility] Comment on above: Performed By: #### I FE2 ####[facility] [place] [address] VITAMIN B12on 01-25-2017 Cobalamins (Vitamin B12) 579 pg/mL Normal 211 - 911 [facility] Comment on above: Performed By: #### V TB12 ####[facility] [place] [address] DX LUMBOSACRAL SPINE MIN 4 V IEWSon 10-31-2016 DX LUMBOSACRAL SPINE MIN 4 VIEWS Performed at [facility] APPROVED BY: Karri Matta MD EXAM TITLE: DX LUMBOSACRAL SPINE MIN 4 VIEWS DATE: 10/31/2016 11:52 INDICATION: Lumbar microdiscectomy. Previous kyphoplasty. Low back pain.History of vertebral osteomyelitis. COMPARISON: Previous MRI dated 08/30/2016. AP, neutral lateral, and flexion and extension lateral views of the lumbar spine show normal bony alignment. No abnormal alignment with flexion and extension. Degenerative disc space narrowing noted at L4-5 and L5-S1 similar to prior exam. Radiopaque density seen within the L2 vertebral body from previous kyphoplasty. There is mild compression deformity of the inferior endplate similar to prior MRI of 08/30/2016. Very mild compression deformity is seen of superior endplate of L4. Stable. IMPRESSION: Status post kyphoplasty at L3. No abnormal subluxation with flexion and extension. Normal [facility] MRI LUMBAR SPINE W/O CONTRAS Ton 10-31-2016 MRI LUMBAR SPINE W/O CONTRAST Performed at [facility] APPROVED BY: JUNIOR RAE MD MRI LUMBAR SPINE CLINICAL INDICATION: History of kyphoplasty June of 2016 recently finished 7 weeks of antibiotics. Low back pain. COMPARISON: Outside MRI lumbar spine 08/29/2016 and 08/30/2016. TECHNIQUE: Routine MRI lumbar spine without IV contrast. FINDINGS:Since the prior MRI, there has been decrease in the degree of marrow edema along the inferior endplate of L3 and superior facet of L4. There is persistent patchy T2 hyperintense signal abnormality within the disc. Findings represent improved but not completely resolved discitis/osteomyelitis. Although evaluation is limited due to the lack of IV contrast, no definite epidural signal abnormality or collection is identified to suggest phlegmon or abscess. Minimal edema within the left psoas muscle has slightly decreased from the prior MRI. No evidence of a paraspinal or psoas abscess. The degree of depression of the inferior endplate of L3 is unchanged, with approximately 40% loss of central vertebral height. Linear tracts of hypointense signal on each side of the L3 vertebral body are related to prior kyphoplasty procedure, unchanged. Vertebral alignment is maintained. There is no new compression deformity. The conus medullaris traverses a normal configuration terminating at the level of L2. T12-L1: Central canal and neural foramina are patent. L1-2: Central canal and neural foramina are patent. L2-3: Central canal neural foramina are patent. L3-4: Mild disc bulging and mild degenerative facet and ligamentum flavum hypertrophy cause moderate central canal stenosis with mild left foraminal narrowing. The right foramen is patent. L4-5: There are remote postoperative changes of prior microdiscectomy with right hemilaminectomy. Disc bulging, mild endplate spurring and mild degenerative facet and ligamentum flavum hypertrophy cause mild central canal stenosis, narrowing of the lateral recesses (right greater than left), and mild right foraminal narrowing. The left foramen is patent. L5-S1: Severe degenerative disc disease is present with complete loss of disc height, type II degenerative end plate marrow signal changes and spurring. Disc bulging and endplate spurring cause mild narrowing of the lateral recesses with mild bilateral foraminal narrowing. The thecal sac is not narrowed. IMPRESSION:1. Improvement but not resolution of discitis/osteomyelitis at the L3-4 level. No evidence of epidural or paraspinal abscess. Mild degree of edema in the left psoas muscle has slightly improved from the prior MRI. Mild disc bulging and mild degenerative facet and ligamentum flavum hypertrophy at this level cause moderate central canal stenosis with mild left foraminal narrowing. 2. Compression deformity of the inferior endplate of L3 with approximately 40% loss of central vertebral height, unchanged. There are changes of prior kyphoplasty at this level. 3. Remote postoperative changes of microdiscectomy and right hemilaminectomy at L4-5. Disc bulging, mild endplate spurring and mild degenerative facet and ligamentum flavum hypertrophy cause mild central canal stenosis, narrowing of the lateral recesses (right greater than left) and mild right foraminal narrowing, unchanged. 4. Severe degenerative disc disease at L5-S1. Disc bulging and endplate spurring cause mild narrowing of bilateral recesses with mild bilateral foraminal narrowing. Normal [facility] US RETROPERITONEAL COMPLETEo n 10-22-2016 US RETROPERITONEAL COMPLETE Performed at [facility] APPROVED BY: Tor Quiles MD EXAM TITLE: ULTRASOUND RETROPERITONEUM DATE: 10/22/2016 17:05 COMPARISON: No prior available. CLINICAL INDICATION/HISTORY: N28.1. Renal cyst. TECHNIQUE: Grayscale and color Doppler images were obtained of the retroperitoneum. Ultrasound images were obtained by the instrumentation technologist and stored in a permanent archive. FINDINGS:The kidneys are symmetric and normal in size. The right kidney measures 11.1 x 6.1 x 5.9 cm. The left kidney measures 11.1 x 7.0 x 5.8 cm. There is a simple cyst involving inferior left kidney that measures 2.8 x 1.8 x 1.8 cm. The renal parenchymal thickness and echogenicity is otherwise within normal limits. There is no hydronephrosis or definite shadowing renal calculus. The abdominal aorta and proximal common iliac arteries are normal in caliber. The visualized portions of the inferior vena cava are patent. The urinary bladder is unremarkable in appearance. The urinary bladder postvoid residual is 125 mL. Prostate gland is mildly enlarged. IMPRESSION:Simple left renal cyst.Mild prostate gland enlargement with postvoid residual of 125 mL.Ultrasound of the retroperitoneum is otherwise within normal limits. Normal [facility] DISCHARGE SUMMARYon 09-25-19 DISCHARGE SUMMARY [facility] Discharge SummaryJOSS OROPEZAMRN: [id number] ACCTNUM: [id number] OF : 1945 SEX/AGE: M/71PATIENT TYPE: H[facility]P [facility]: LOCATION: [id number] DATE: 08/31/2016 DISCHARGE DATE: 09/07/2016DISCHARGE DIAGNOSES:1. Lumbar diskitis.2. Lower back pain.3. Diabetes type 2.4. Constipation.CONSULTANTS:1. Dr. Hogue with Infectious Disease.2. Dr. Kohli with Neurosurgery.IMAGING AND PROCEDURES: L3-L4 vertebral body and disk biopsy and a PICC line placement.BRIEF HISTORY OF PRESENT ILLNESS: Mr. Oropeza was [facility] with[facility] back pain. MRI done as an outpatient prior to admission was concerning for osteomyelitis versus diskitisat the level of the lumbar spine. Patient underwent a biopsy of has L3-L4 vertebra and the disk. Result of thebiopsy of the bone core was negative for osteomyelitis, but there was a concern for infection based on theresults of the disk aspiration. Dr. Hogue from Infectious Disease was consulted and broad-spectrum IVantibiotics were given throughout the hospital stay. Dr. Hogue decided to continue IV antibiotics throughout. PICC line was placed and home health care was arranged for IV antibiotics infusion at home. Neurosurgeon,Dr. Kohli was consulted on the case and no surgical intervention was indicated at that time. The patient'shospital course was otherwise uneventful. The patient received pain treatment for his lower back pain withimproved pain prior to discharge. Patient will be discharged home with IV antibiotics and followup with ID andneurosurgeon.PHYSICAL EXAMINATION:VITAL SIGNS: At the time of discharge, temperature 36.3, pulse 74, respiratory rate 20, O2 saturation 100%,blood pressure 140/70.GENERAL: At the time of discharge showed alert and oriented. Patient in no acute distress.CARDIOVASCULAR: Regular rhythm. Normal pulses. 2+ pulses in upper and lower extremities. No lowerextremity edema. normal S1, S2.RESPIRATORY: Nonlabored. Clear to auscultation bilaterally.GI: Soft, nontender, nondistended.NEUROLOGIC: Nonfocal exam. Cranial nerves intact.DISPOSITION: Patient was discharged home in a stable condition. [facility]. He was in a stable condition.DISCHARGE MEDICATIONS: Please refer to MRF. Patient will continue taking IV antibiotics along withfollowup with [facility].DISCHARGE INSTRUCTIONS: Follow up with Dr. Hogue from ID and follow up with home health care. Followup with Dr. Kohli with Neurosurgery. Page 1 of 1 [facility] Discharge Summary PATIENT NAME: JOSS OROPEZA MR#: [id number] ACCTNUM: [id number] DISCHARGE TIME: Time spent on discharge more than 30 minutes.Signed: CAN OSBORN MD09/24/2016 18:04 EDT Can Osborn MD QH:modl /[id number] cc: Ronald Hogue MD Page 2 of 1 Normal [facility] DISCHARGE SUMMARY PDF Normal [facility] DISCHARGE SUMMARY [facility] Discharge SummaryJOSS OROPEZAMRN: [id number] ACCTNUM: [id number] OF : 1945 SEX/AGE: M/71PATIENT TYPE: [facility]: LOCATION: [id number] DATE: 08/31/2016 DISCHARGE DATE: 09/10/2016ADDENDUM: Patient has appealed his discharge on 09/07/2016. He stayed in the hospital until 09/10/2016.Over the course of 3 days, patient's pain medication was changed to Percocet 10 mg q.6 hours for lower backpain. Otherwise his vitals remained stable and he continued to receive with IV antibiotics for lumbar diskitis.Patient had no events during his hospital stay and [facility] a [facility]. For more details, please refer to previously dictated discharge summary on09/07/2016.Signed: CAN OSBORN MD09/24/2016 18:04 ESTRELLATCan Osborn MDQH:modlD: 09/10/2016 11:04:24T: 09/12/2016 04:21:25Job #: [id number] Page 1 of 1 Normal [facility] DISCHARGE SUMMARY PDF Normal [facility] Glucose Meteron 09-10-2016 Glucose mass conc 104 mg/dL High 70-99 [facility] Comment on above: Result Comment: DERIC Ludwig OTIFIED Performed By: #### G LMET ####[facility] [place], [place] [address] Glucose mass conc 131 mg/dL High 70-99 [facility] Comment on above: Performed By: #### G LMET ####[facility] [place], [place] [address] Glucose Meteron 09-09-2016 Glucose mass conc 142 mg/dL High 70-99 [facility] Comment on above: Result Comment: DERIC Ludwig OTIFIED Performed By: #### G LMET ####[address] [address] Glucose mass conc 103 mg/dL High 70- [facility] Comment on above: Result Comment: DERIC Ludwig OTIFIED Performed By: #### G LMET ####[address] [address] Glucose mass conc 171 mg/dL High 70- [facility] Comment on above: Result Comment: DERIC Ludwig OTIFIED Performed By: #### G LMET ####[address] [address] Glucose mass conc 118 mg/dL High 70- [facility] Comment on above: Performed By: #### G LMET ####[address] [address] Glucose Meteron 09-08-2016 Glucose mass conc 123 mg/dL High 70-99 [facility] Comment on above: Result Comment: DERIC Ludwig OTIFIED Performed By: #### G LMET ####[address] [address] Glucose mass conc 138 mg/dL High 70-99 [facility] Comment on above: Result Comment: DERIC Ludwig OTIFIED Performed By: #### G LMET ####[address] [address] Glucose mass conc 153 mg/dL High 70- [facility] Comment on above: Result Comment: RN N OTIFIED Performed By: #### G LMET ####[facility] [place], [place] [address] Glucose mass conc 126 mg/dL High 70- [facility] Comment on above: Result Comment: RN Oziel OTIFIED Performed By: #### E SR ####[address] [address] Glucose Meteron 09-07-2016 Glucose mass conc 119 mg/dL High 70- [facility] Comment on above: Result Comment: DERIC Ludwig OTIFIED Performed By: #### E SR ####[address] [address] Glucose mass conc 132 mg/dL High 70- [facility] Comment on above: Result Comment: DERIC Ludwig OTIFIED Performed By: #### E SR ####[address] [address] Glucose mass conc 130 mg/dL High 70- [facility] Comment on above: Performed By: #### E SR ####[address] [address] Glucose mass conc 123 mg/dL High 70- [facility] Comment on above: Result Comment: DERIC Ludwig OTIFIED Performed By: #### E SR ####[address] [address] Glucose Meteron 09-06-2016 Glucose mass conc 137 mg/dL High 70- [facility] Comment on above: Performed By: #### E SR ####[address] [address] Glucose mass conc 169 mg/dL High 70- [facility] Comment on above: Result Comment: DERIC Ludwig OTIFIED Performed By: #### E SR ####[address] [address] Glucose mass conc 122 mg/dL High 70- [facility] Comment on above: Result Comment: DERIC Ludwig OTIFIED Performed By: #### E SR ####[address] [address] Glucose mass conc 167 mg/dL High - [facility] Comment on above: Performed By: #### E SR ####[facility] [place], [place] [address] PICC LINE INSERTION [id number] 09-06-2016 PICC LINE INSERTION [id number] Performed at [facility] APPROVED BY: MARTIR WITT MD EXAM TITLE: PICC LINE PLACEMENT DATE: 09/06/2016 10:30 COMPARISON: None. CLINICAL INDICATION/HISTORY: Patient is a 71-year-old male with need for long-term antibiotics. TECHNIQUE: All elements of maximal barrier technique including mask, sterile gown, sterile gloves, large sterile drape, appropriate hand hygiene, and appropriate prep agent were utilized. A PICC line was then placed by the [facility] nursing PICC team without added supervision by the interventionalist in special procedures. The PICC catheter entry site is the right brachial vein. The tip of the PICC catheter is in the distal SVC. The PICC line has been secured to the skin, bandaged, and flushed with appropriate saline and is ready for use. IMPRESSION: Technically successful placement of PICC line by the [facility] nursing PICC team. Normal [facility] Vancomycin,Troughon 09-07-19 17 Vancomycin,Trough 9.4 mg/L Low 10.0-20.0 [facility] Comment on above: Performed By: #### C RP3 ####[address] [address] Glucose Meteron 09-05-2016 Glucose mass conc 147 mg/dL High 70-99 [facility] Comment on above: Result Comment: RN N OTIFIED Performed By: #### C RP3 ####[address] [address] Glucose mass conc 114 mg/dL High 70-99 [facility] Comment on above: Result Comment: RN N OTIFIED Performed By: #### C RP3 ####[address] [address] Glucose mass conc 202 mg/dL High 70-99 [facility] Comment on above: Result Comment: RN N OTIFIED Performed By: #### C RP3 ####[address], [place] [address] Glucose mass conc 149 mg/dL High 70-99 [facility] Comment on above: Performed By: #### C RP3 ####[address] [address] Glucose Meteron 09-04-2016 Glucose mass conc 145 mg/dL High 70-99 [facility] Comment on above: Result Comment: RN N OTIFIED Performed By: #### C RP3 ####[address] [address] Glucose mass conc 131 mg/dL High 70-99 [facility] Comment on above: Result Comment: RN N OTIFIED Performed By: #### C RP3 ####[address] [address] Glucose mass conc 135 mg/dL High 70-99 [facility] Comment on above: Result Comment: RN N OTIFIED Performed By: #### C RP3 ####[address] [address] Glucose mass conc 136 mg/dL High 70-99 [facility] Comment on above: Result Comment: RN N OTIFIED Performed By: #### G FR ####[address] [address] Activated PTTon 09-03-2016 aPTT 24.3 s Normal 22.0-34.0 [facility] Comment on above: Performed By: #### G FR ####[place] [address] CT NEEDLE BIOPSY BONE DEEPon 09-03-2016 CT NEEDLE BIOPSY BONE DEEP Performed at [facility] APPROVED BY: Merary Liriano MD Procedure: CT guided percutaneous intervertebral disc aspirate/biopsy performed on 09/03/2016. Indication: 71y/o male with concerns for vertebral osteomyelitis. Request for biopsy. Comparison: Outside MRI dated 08/30/2016. Technique / Findings: The procedure was performed in the CT Room following informed consent and a Time Out. Local anesthesia was obtained using 1% lidocaine. With the patient in the prone position, limited axial CT images were obtained to localize the L3/L4 level. The precise skin entry site was identified. The back was prepped and draped in the usual sterile fashion. Using CT guidance, a 15.2 cm 11-G OnControl Needle was placed into the L3/L4 disc space. The OnControl Needle was advanced approximately 3-4 cm into the disc and a core biopsy was performed. This process was repeated 2 additional times to ensure an adequate sample was obtained. There were no immediate complications. The patient tolerated the procedure. CT Radiation Dose: Integrated Dose-length product (DLP) = 637.4 mGy*cm.CT Dose Reduction Employed: No dose reduction techniques were required. Intra-Service Time (Moderate Sedation): 30 minutes.Patient Monitoring: I personally supervised and directed an independent trained observer who assisted in monitoring the patient?s level of consciousness and physiological status throughout the procedure. IMPRESSION:Successful CT-guided percutaneous biopsy of the L3/L4 disc space. Normal [facility] CT PERC ASPIRATION DISC 6226 7on 09-03-2016 CT PERC ASPIRATION DISC [id number] Performed at [facility] APPROVED BY: Merary Liriano MD Procedure: CT guided percutaneous intervertebral disc aspirate/biopsy performed on 09/03/2016. Indication: 71y/o male with concerns for vertebral osteomyelitis. Request for biopsy. Comparison: Outside MRI dated 08/30/2016. Technique / Findings: The procedure was performed in the CT Room following informed consent and a Time Out. Local anesthesia was obtained using 1% lidocaine. With the patient in the prone position, limited axial CT images were obtained to localize the L3/L4 level. The precise skin entry site was identified. The back was prepped and draped in the usual sterile fashion. Using CT guidance, a 15.2 cm 11-G OnControl Needle was placed into the L3/L4 disc space. The OnControl Needle was advanced approximately 3-4 cm into the disc and a core biopsy was performed. This process was repeated 2 additional times to ensure an adequate sample was obtained. There were no immediate complications. The patient tolerated the procedure. CT Radiation Dose: Integrated Dose-length product (DLP) = 637.4 mGy*cm.CT Dose Reduction Employed: No dose reduction techniques were required. Intra-Service Time (Moderate Sedation): 30 minutes.Patient Monitoring: I personally supervised and directed an independent trained observer who assisted in monitoring the patient?s level of consciousness and physiological status throughout the procedure. IMPRESSION:Successful CT-guided percutaneous biopsy of the L3/L4 disc space. Normal [facility] Cytology, Medicalon 09-04-19 17 Cytology, Medical Test performed at [address] [address]NZWZ: JOSS OROPEZA [id number] REQUESTING: TRACY MARTINEZ M.D.DIAGNOSISL3-L4 LUMBAR DISC ASPIRATION - NEGATIVE FOR MALIGNANT CELLS.NARRATIVECHONDROCYTES , FEW PMNS AND LYMPHOCYTES. SPECIMEN: A) FOT, FNA, OTHER SITE Lumbar disc aspiration, L3-L4 Description: Materials Prepared & Examined: Volume: ......... 6.5 # of Cell Blocks: .......... 1 Color: ............ Red # of Monolayers: .......... 1 Other: ............. White # of Slides: ................. particles 3Electronically Signed: 09/05/2016Screened by: ALKA KNIGHT, CT(ASCP)Signed Out by: BRUNILDA JOHNSON M.D.,PATHOLOGISTPrinted on: September 05, 2016 Page 1 of 1 Normal [facility] Comment on above: Performed By: #### C RP3 ####[address] [address] Glucose Meteron 09-03-2016 Glucose mass conc 130 mg/dL High 70-99 [facility] Comment on above: Result Comment: RN N OTIFIED Performed By: #### G FR ####[facility] [place], [place] [address] Glucose mass conc 116 mg/dL High 70-99 [facility] Comment on above: Performed By: #### G FR ####[facility] [place], [place] [address] Glucose mass conc 133 mg/dL High 70-99 [facility] Comment on above: Result Comment: RN N OTIFIED Performed By: #### G FR ####[facility] [place], [place] [address] Glucose mass conc 141 mg/dL High 70-99 [facility] Comment on above: Result Comment: DERIC Ludwig OTIFIED Performed By: #### G FR ####[facility] [place] [id number] Protimeon 09-03-2016 INR Coag RelTime (PPP) 1.01 {INR} Normal [facility] Comment on above: Result Comment: Nathaniel dard Therapy 2.0-3.0High Dose 2.5-3.5 Performed By: #### G FR ####[place] [address] Prothrombin time (PT) Coag time (PPP) 10.9 s Normal 9.3-11.9 [facility] Comment on above: Performed By: #### G FR ####[place] [id number] Surgical Tissue Examon 09-03 Surgical Tissue Exam Test performed at [place] [address]NAME: SANDIP JOSS [id number] REQUESTING: TRACY MARTINEZ M.D.FINAL DIAGNOSIS:CORE BIOPSY OF BONE (LUMBAR L3-L4) - FIBROCARTILAGE WITH DEGENERATIVECHANGES. ASSOCIATED BENIGN BONE AND BONE MARROW. OSTEOMYELITIS IS NOTIDENTIFIED.OPERATIVE PROCEDURE:CT needle biopsy bone / aspiration 17:05CLINICAL INFORMATION:Vertebral osteomyelitis L3-L4 biopsy needle aspirationGROSS DESCRIPTION:CT guided disc biopsy lumbar spine L3-L4The specimen is labeled and designated Joss Oropeza, [id number]. Received in formalin, a 1.5 cm length x 0.3 cm in diameterfragmented core entirely submitted, in total, in a single cassetteafter light decalcification. ELH:otoniel DUKE M.D.(Electronic signature on file)Signed out: 09/05/2016 14:23PRINTED: 09/05/2016 Page 1 of 1 Normal [facility] Comment on above: Performed By: #### C RP3 ####[place] [id number] Glucose Meteron 09-02-2016 Glucose mass conc 152 mg/dL High 70-99 [facility] Comment on above: Result Comment: RN N OTIFIED Performed By: #### P 8 ####[facility] [place], [place] [address] Glucose mass conc 142 mg/dL High 70- [facility] Comment on above: Result Comment: RN N OTIFIED Performed By: #### P 8 ####[facility] [place], [place] [address] Glucose mass conc 199 mg/dL High 70- [facility] Comment on above: Result Comment: RN N OTIFIED Performed By: #### P 8 ####[place] [address] Glucose mass conc 174 mg/dL High 70- [facility] Comment on above: Result Comment: RN N OTIFIED Performed By: #### P 8 ####[place] [address] Glucose mass conc 173 mg/dL High 70- [facility] Comment on above: Result Comment: RN N OTIFIED Performed By: #### P 8 ####[place] [address] MRSA Screenon 09-02-2016 MRSA Screen Test performed at [facility] No MRSA detected. Normal [facility] Comment on above: Performed By: #### G FR ####[place] [address] Basic Panelon 09-01-2016 Creatinine 0.74 mg/dL Normal 0.67-1.17 [facility] Comment on above: Performed By: #### P 8 ####[place] [address] Anion gap 14 mmol/L Normal 8-16 [facility] Comment on above: Performed By: #### P 8 ####[place] [address] CO2 23 mmol/L Normal 21-32 [facility] Comment on above: Performed By: #### P 8 ####[place] [address] Glucose mass conc 138 mg/dL High 70-99 [facility] Comment on above: Performed By: #### P 8 ####[facility] [place], [place] [address] Urea nitrogen 18 mg/dL Normal 7-18 [facility] Comment on above: Performed By: #### P 8 ####[facility] [place], [place] [address] Calcium 9.2 mg/dL Normal 8.5-10.1 [facility] Comment on above: Performed By: #### P 8 ####[facility] [place], [place] [address] Chloride 106 mmol/L Normal 98-107 [facility] Comment on above: Performed By: #### P 8 ####[address] [address] Potassium molar conc 4.1 mmol/L Normal 3.5-5.1 [facility] Comment on above: Performed By: #### P 8 ####[address] [address] Sodium 139 mmol/L Normal 136-145 [facility] Comment on above: Performed By: #### P 8 ####[address] [address] Glucose Meteron 09-01-2016 Glucose mass conc 130 mg/dL High 70-99 [facility] Comment on above: Result Comment: RN N OTIFIED Performed By: #### P 8 ####[address] [address] Glucose mass conc 124 mg/dL High 70-99 [facility] Comment on above: Result Comment: RN N OTIFIED Performed By: #### P 8 ####[address] [address] Glucose mass conc 175 mg/dL High 70-99 [facility] Comment on above: Performed By: #### G LMET ####[address] [address] Hemogram/Diffon 09-01-2016 Basophils Auto #/vol (Bld) 0.01 thou/cmm Normal 0.01-0.08 [facility] Comment on above: Performed By: #### C BCD1 ####[address] [address] Basophils/100 WBC Auto (Bld) 0.2 % Normal [facility] Comment on above: Performed By: #### C BCD1 ####[address] [address] Eosinophils 0.07 thou/cmm Normal 0.04-0.54 [facility] Comment on above: Performed By: #### C BCD1 ####[place] [address] Eosinophils/100 leukocytes 1.1 % Normal [facility] Comment on above: Performed By: #### C BCD1 ####[place] [address] Erythrocyte distribution width Auto Ratio (RBC) 15.7 % High 11.6-14.4 [facility] Comment on above: Performed By: #### C BCD1 ####[place] [address] Erythrocytes (RBC) 3.56 mil/cmm Low 4.63-6.08 [facility] [facility] Comment on above: Performed By: #### C BCD1 ####[place] [address] Hematocrit (HCT) 35.8 % Low 40.1-51.0 [facility] Comment on above: Performed By: #### C BCD1 ####[place] [address] Hemoglobin mass conc (Bld) 11.8 g/dL Low 13.7-17.5 [facility] Comment on above: Performed By: #### C BCD1 ####[place] [address] Immature Grans 0.30 % Normal [facility] Comment on above: Performed By: #### C BCD1 ####[place] [address] Immature Grans # 0.02 thou/cmm Normal 0.00-0.05 [facility] Comment on above: Performed By: #### C BCD1 ####[facility] [place], [place] [address] Lymphocytes 1.89 thou/cmm Normal 0.84-2.85 [facility] Comment on above: Performed By: #### C BCD1 ####[address] [address] Lymphocytes/100 leukocytes 30.9 % Normal [facility] Comment on above: Performed By: #### C BCD1 ####[facility] [place], [place] [address] MCH 33.1 pg High 25.7-32.2 [facility] Comment on above: Performed By: #### C BCD1 ####[address] [address] MCHC mass conc (RBC) 33.0 % Normal 32.3-36.5 [facility] Comment on above: Performed By: #### C BCD1 ####[place] [address] MCV 100.6 fL High 83.2-95.6 [facility] Comment on above: Performed By: #### C BCD1 ####[place] [address] Monocytes 0.54 thou/cmm Normal 0.30-0.82 [facility] Comment on above: Performed By: #### C BCD1 ####[address] [address] Monocytes/100 leukocytes 8.8 % Normal [facility] Comment on above: Performed By: #### C BCD1 ####[address] [address] Platelet mean volume (PMV) 9.4 fL Normal 8.7-12.0 [facility] Comment on above: Performed By: #### C BCD1 ####[place] [address] Platelets 174 thou/cmm Normal 141-365 [facility] Comment on above: Performed By: #### C BCD1 ####[address] [address] RDW SD 58.0 fl High 36.1-45.8 [facility] Comment on above: Performed By: #### C BCD1 ####[place] [address] Seg Neutrophil 58.7 % Normal [facility] Comment on above: Performed By: #### C BCD1 ####[place] [address] Seg. Neut.# 3.59 thou/cmm Normal 1.78-5.38 [facility] Comment on above: Performed By: #### C BCD1 ####[place] [address] WBC (Leukocytes) 6.11 thou/cmm Normal 4.23-9.07 [facility] Comment on above: Performed By: #### C BCD1 ####[place] [address] MDRD GFRon 09-01-2016 eGFR (non-black) mL/min/{1.73_m2} Normal >60mL/m in/1. 73m2 [facility] Comment on above: Result Comment: If t he patient is , multiply the result by 1.210. Performed By: #### G FR ####[place] [address] Procalcitoninon 09-01-2016 Procalcitonin <0.05 Normal [facility] Comment on above: Result Comment: Leve ls <0.50 ng/mL represent a low risk of severe sepsis and/orseptic shock, while levels >2.00 ng/mL represent an elevatedrisk of severe sepsis and/or septic shock. Levels <0.50 ng/mLdo not exclude infection, as infections or systemic infectionsin early stages (<6hrs) can be associated with lowconcentrations. Levels between 0.50-2.00 ng/mL should beinterpreted in the clinical context of the patient, as a varietyof conditions such as sanchez, trauma, surgery and severecardiogenic shock can cause procalcitonin elevations. Performed By: #### P 8 ####[address] [place], [place] [address] Basic Panelon 08-31-2016 Creatinine 0.72 mg/dL Normal 0.67-1.17 [facility] Comment on above: Performed By: #### P 8 ####[facility] [place], [place] [address] Glucose mass conc 192 mg/dL High 70-99 [facility] Comment on above: Performed By: #### P 8 ####[facility] [place] [address] Anion gap 12 mmol/L Normal 8-16 [facility] Comment on above: Performed By: #### P 8 ####[place] [address] Calcium 9.0 mg/dL Normal 8.5-10.1 [facility] Comment on above: Performed By: #### P 8 ####[place] [address] CO2 25 mmol/L Normal 21-32 [facility] Comment on above: Performed By: #### P 8 ####[address] [address] Urea nitrogen 18 mg/dL Normal 7-18 [facility] Comment on above: Performed By: #### P 8 ####[place] [address] Chloride 103 mmol/L Normal 98-107 [facility] Comment on above: Performed By: #### P 8 ####[place] [address] Potassium molar conc 3.9 mmol/L Normal 3.5-5.1 [facility] Comment on above: Performed By: #### P 8 ####[place] [address] Sodium 136 mmol/L Normal 136-145 [facility] Comment on above: Performed By: #### P 8 ####[address] [address] CRPon 08-31-2016 C reactive protein (CRP) 2.07 mg/dL High 0.00-0.30 [facility] Comment on above: Performed By: #### C RP3 ####[facility] [place], [place] [address] Cult Bloodon 08-31-2016 Cult Blood Test performed at [facility] No growth Normal [facility] Comment on above: Performed By: #### P 8 ####[facility] [place], [place] [address] Glucose Meteron 08-31-2016 Glucose mass conc 115 mg/dL High 70-99 [facility] Comment on above: Performed By: #### G LMET ####[address] [address] Hemogram/Diffon 08-31-2016 Basophils Auto #/vol (Bld) 0.02 thou/cmm Normal 0.01-0.08 [facility] Comment on above: Performed By: #### C BCD1 ####[address] [address] Basophils/100 WBC Auto (Bld) 0.2 % Normal [facility] Comment on above: Performed By: #### C BCD1 ####[address] [address] Eosinophils 0.02 thou/cmm Low 0.04-0.54 [facility] Comment on above: Performed By: #### C BCD1 ####[address] [address] Eosinophils/100 leukocytes 0.2 % Normal [facility] Comment on above: Performed By: #### C BCD1 ####[address] [address] Erythrocyte distribution width Auto Ratio (RBC) 15.8 % High 11.6-14.4 [facility] Comment on above: Performed By: #### C BCD1 ####[address] [address] Erythrocytes (RBC) 3.72 mil/cmm Low 4.63-6.08 [facility] Comment on above: Performed By: #### C BCD1 ####[address] [address] Hematocrit (HCT) 37.6 % Low 40.1-51.0 [facility] Comment on above: Performed By: #### C BCD1 ####[place] [address] Hemoglobin mass conc (Bld) 12.3 g/dL Low 13.7-17.5 [facility] Comment on above: Performed By: #### C BCD1 ####[place] [address] Immature Grans 0.50 % Normal [facility] Comment on above: Performed By: #### C BCD1 ####[place] [address] Immature Grans # 0.04 thou/cmm Normal 0.00-0.05 [facility] Comment on above: Performed By: #### C BCD1 ####[place] [address] Lymphocytes 2.04 thou/cmm Normal 0.84-2.85 [facility] Comment on above: Performed By: #### C BCD1 ####[place] [address] Lymphocytes/100 leukocytes 24.0 % Normal [facility] Comment on above: Performed By: #### C BCD1 ####[place] [address] MCH 33.1 pg High 25.7-32.2 [facility] Comment on above: Performed By: #### C BCD1 ####[place] [address] MCHC mass conc (RBC) 32.7 % Normal 32.3-36.5 [facility] Comment on above: Performed By: #### C BCD1 ####[place] [address] MCV 101.1 fL High 83.2-95.6 [facility] Comment on above: Performed By: #### C BCD1 ####[place] [address] Monocytes 0.60 thou/cmm Normal 0.30-0.82 [facility] Comment on above: Performed By: #### C BCD1 ####[address] [address] Monocytes/100 leukocytes 7.1 % Normal [facility] Comment on above: Performed By: #### C BCD1 ####[address] [address] Platelet mean volume (PMV) 10.0 fL Normal 8.7-12.0 [facility] Comment on above: Performed By: #### C BCD1 ####[address] [address] Platelets 191 thou/cmm Normal 141-365 [facility] Comment on above: Performed By: #### C BCD1 ####[address] [address] RDW SD 57.6 fl High 36.1-45.8 [facility] Comment on above: Performed By: #### C BCD1 ####[address] [address] Seg Neutrophil 68.0 % Normal [facility] Comment on above: Performed By: #### C BCD1 ####[address] [address] Seg. Neut.# 5.79 thou/cmm High 1.78-5.38 [facility] Comment on above: Performed By: #### C BCD1 ####[address] [address] WBC (Leukocytes) 8.51 thou/cmm Normal 4.23-9.07 [facility] Comment on above: Performed By: #### C BCD1 ####[address] [address] MDRD GFRon 08-31-2016 eGFR (non-black) mL/min/{1.73_m2} Normal >60mL/m in/1. 73m2 [facility] Comment on above: Result Comment: If t he patient is , multiply the result by 1.210. Performed By: #### G FR ####[place] [address] [place], [place] [address] Sed Rateon 08-31-2016 Sed Rate 50 mm/hr High 0-14 [facility] Comment on above: Performed By: #### E SR ####[facility] [place], [place] [address] No Panel Information [facility] Vital Signs Date Time Vital Sign Value Performing Clinician Facility 07-29-2024 15:16-0400 Body temperature 98.29 [degF] Treatment 1 [facility] 07-29-2024 15:16-0400 Diastolic blood pressure 72 mm[Hg] Treatment 1 [facility] 07-29-2024 15:16-0400 Heart rate 79 /min Treatment 1 [facility] 07-29-2024 15:16-0400 Respiratory rate 18 /min Treatment 1 [facility] 07-29-2024 15:16-0400 Systolic blood pressure 153 mm[Hg] Treatment 1 [facility] 07-29-2024 13:40-0400 SaO2% (BldA) [Mass fraction] 96 % Treatment 1 [facility] 07-24-2024 09:28-0400 Body height 172.7 cm Sabas Vargas MD Work Phone: [facility] 07-24-2024 09:28-0400 Body mass index (BMI) [Ratio] 32.07 kg/m2 Sabas Vargas MD Work Phone: [facility] 07-24-2024 09:28-0400 Body temperature 98.1 [degF] Sabas Vargas MD Work Phone: [facility] 07-24-2024 09:28-0400 Body weight 95.66 kg Sabas Vargas MD Work Phone: [facility] 07-24-2024 09:28-0400 Diastolic blood pressure 56 mm[Hg] Sabas Vargas MD Work Phone: [facility] 07-24-2024 09:28-0400 Heart rate 105 /min Sabas Vargas MD Work Phone: [facility] 07-24-2024 09:28-0400 SaO2% (BldA) [Mass fraction] 99 % Sabas Vargas MD Work Phone: [facility] 07-24-2024 09:28-0400 Systolic blood pressure 103 mm[Hg] Sabas Vargas MD Work Phone: [facility] 07-21-2024 13:30-0400 Diastolic blood pressure 62 mm[Hg] Rodrigo Magana MD, MD Work Phone: [facility] 07-21-2024 13:30-0400 SaO2% (BldA) [Mass fraction] 96 % Rodrigo Magana MD, MD Work Phone: [facility] 07-21-2024 13:30-0400 Systolic blood pressure 129 mm[Hg] Rodrigo Magana MD, MD Work Phone: [facility] 07-21-2024 13:00-0400 Heart rate 87 /min Rodrigo Magana MD, MD Work Phone: [facility] 07-21-2024 13:00-0400 Respiratory rate 14 /min Rodrigo Magana MD, MD Work Phone: [facility] 07-21-2024 12:16-0400 Body temperature 97.59 [degF] Rodrigo Magana MD, MD Work Phone: [facility] 07-21-2024 11:24-0400 Body mass index (BMI) [Ratio] 31.88 kg/m2 Rodrigo Magana MD, MD Work Phone: [facility] 07-21-2024 11:24-0400 Body weight 99.34 kg Rodrigo Magana MD, MD Work Phone: [facility] 07-03-2024 15:27-0400 Body temperature 97.81 [degF] Treatment 1 [facility] 07-03-2024 15:27-0400 Diastolic blood pressure 84 mm[Hg] Treatment 1 [facility] 07-03-2024 15:27-0400 Heart rate 76 /min Treatment 1 [facility] 07-03-2024 15:27-0400 Respiratory rate 20 /min Treatment 1 [facility] 07-03-2024 15:27-0400 Systolic blood pressure 153 mm[Hg] Treatment 1 [facility] 07-03-2024 13:49-0400 SaO2% (BldA) [Mass fraction] 98 % Treatment 1 [facility] 06-30-2024 11:41-0400 Body height 175.3 cm [facility] 06-30-2024 11:41-0400 Body mass index (BMI) [Ratio] 32.22 kg/m2 [facility] 06-30-2024 11:41-0400 Body temperature 97.7 [degF] [facility] 06-30-2024 11:41-0400 Body weight 99 kg [facility] 06-30-2024 11:41-0400 Diastolic blood pressure 68 mm[Hg] [facility] 06-30-2024 11:41-0400 Heart rate 92 /min [facility] 06-30-2024 11:41-0400 Respiratory rate 16 /min [facility] 06-30-2024 11:41-0400 SaO2% (BldA) [Mass fraction] 98 % [facility] 06-30-2024 11:41-0400 Systolic blood pressure 142 mm[Hg] [facility] 06-02-2024 16:29-0400 Body temperature 97.2 [degF] [facility] 06-02-2024 16:29-0400 Diastolic blood pressure 83 mm[Hg] [facility] 06-02-2024 16:29-0400 Heart rate 65 /min [facility] 06-02-2024 16:29-0400 Respiratory rate 18 /min [facility] 06-02-2024 16:29-0400 Systolic blood pressure 167 mm[Hg] [facility] 06-02-2024 11:10-0400 Body mass index (BMI) [Ratio] 32.72 kg/m2 [facility] 06-02-2024 11:10-0400 Body weight 100.55 kg [facility] 06-02-2024 11:10-0400 SaO2% (BldA) [Mass fraction] 99 % [facility] 05-26-2024 15:37-0400 Body temperature 98.29 [degF] Treatment 1 [facility] 05-26-2024 15:37-0400 Diastolic blood pressure 74 mm[Hg] Treatment 1 [facility] 05-26-2024 15:37-0400 Heart rate 66 /min Treatment 1 [facility] 05-26-2024 15:37-0400 Respiratory rate 18 /min Treatment 1 [facility] 05-26-2024 15:37-0400 SaO2% (BldA) [Mass fraction] 97 % Treatment 1 [facility] 05-26-2024 15:37-0400 Systolic blood pressure 158 mm[Hg] Treatment 1 [facility] 05-06-2024 16:26-0400 Diastolic blood pressure 81 mm[Hg] Treatment 1 [facility] 05-06-2024 16:26-0400 Heart rate 66 /min Treatment 1 [facility] 05-06-2024 16:26-0400 Respiratory rate 18 /min Treatment 1 [facility] 05-06-2024 16:26-0400 Systolic blood pressure 175 mm[Hg] Treatment 1 [facility] 05-06-2024 15:52-0400 Body temperature 98.8 [degF] Treatment 1 [facility] 05-06-2024 11:59-0400 SaO2% (BldA) [Mass fraction] 98 % Treatment 1 [facility] 05-05-2024 16:48-0400 Body temperature 97.3 [degF] [facility] 05-05-2024 16:48-0400 Diastolic blood pressure 69 mm[Hg] [facility] 05-05-2024 16:48-0400 Heart rate 76 /min [facility] 05-05-2024 16:48-0400 Respiratory rate 18 /min [facility] 05-05-2024 16:48-0400 Systolic blood pressure 159 mm[Hg] [facility] 05-05-2024 11:34-0400 Body mass index (BMI) [Ratio] 32.64 kg/m2 [facility] 05-05-2024 11:34-0400 Body weight 100.31 kg [facility] 05-05-2024 11:34-0400 SaO2% (BldA) [Mass fraction] 98 % [facility] 04-16-2024 17:20-0500 Diastolic blood pressure 78 mm[Hg] Treatment 1 [facility] 04-16-2024 17:20-0500 Systolic blood pressure 158 mm[Hg] Treatment 1 [facility] 04-16-2024 17:08-0500 Body temperature 97.9 [degF] Treatment 1 [facility] 04-16-2024 17:08-0500 Heart rate 64 /min Treatment 1 [facility] 04-16-2024 17:08-0500 Respiratory rate 16 /min Treatment 1 [facility] 04-16-2024 13:10-0500 SaO2% (BldA) [Mass fraction] 94 % Treatment 1 [facility] 04-14-2024 14:10-0500 Body temperature 97.7 [degF] Treatment 1 [facility] 04-14-2024 14:10-0500 Diastolic blood pressure 72 mm[Hg] Treatment 1 [facility] 04-14-2024 14:10-0500 Heart rate 75 /min Treatment 1 [facility] 04-14-2024 14:10-0500 Respiratory rate 18 /min Treatment 1 [facility] 04-14-2024 14:10-0500 SaO2% (BldA) [Mass fraction] 99 % Treatment 1 [facility] 04-14-2024 14:10-0500 Systolic blood pressure 160 mm[Hg] Treatment 1 [facility] 04-07-2024 16:00-0500 Diastolic blood pressure 76 mm[Hg] [facility] 04-07-2024 16:00-0500 Heart rate 76 /min [facility] 04-07-2024 16:00-0500 Systolic blood pressure 187 mm[Hg] [facility] 04-07-2024 13:22-0500 SaO2% (BldA) [Mass fraction] 97 % [facility] 04-07-2024 11:58-0500 Body height 175.3 cm [facility] 04-07-2024 11:58-0500 Body mass index (BMI) [Ratio] 32.75 kg/m2 [facility] 04-07-2024 11:58-0500 Body temperature 97.3 [degF] [facility] 04-07-2024 11:58-0500 Body weight 100.65 kg [facility] 04-07-2024 11:58-0500 Respiratory rate 18 /min [facility] 03-25-2024 15:12-0500 Body temperature 97.9 [degF] Treatment 1 [facility] 03-25-2024 15:12-0500 Diastolic blood pressure 64 mm[Hg] Treatment 1 [facility] 03-25-2024 15:12-0500 Heart rate 61 /min Treatment 1 [facility] 03-25-2024 15:12-0500 Respiratory rate 16 /min Treatment 1 [facility] 03-25-2024 15:12-0500 Systolic blood pressure 173 mm[Hg] Treatment 1 [facility] 03-25-2024 12:55-0500 SaO2% (BldA) [Mass fraction] 98 % Treatment [address] [place] [address] 03-24-2024 16:26-0500 Body temperature 97.3 [degF] [facility] 03-24-2024 16:26-0500 Diastolic blood pressure 70 mm[Hg] [facility] 03-24-2024 16:26-0500 Heart rate 68 /min [facility] 03-24-2024 16:26-0500 Respiratory rate 18 /min [facility] 03-24-2024 16:26-0500 Systolic blood pressure 146 mm[Hg] [facility] 03-24-2024 13:43-0500 Body height 175.3 cm Alka Noriega MD Work Phone: [facility] 03-24-2024 13:30-0500 Body height 175.2 cm [facility] 03-24-2024 13:30-0500 Body mass index (BMI) [Ratio] 32.61 kg/m2 [facility] 03-24-2024 13:30-0500 Body weight 100.1 kg [facility] 03-24-2024 13:30-0500 SaO2% (BldA) [Mass fraction] 99 % [facility] 03-13-2024 14:35-0500 Body height 175.3 cm Alka Noriega MD Work Phone: [facility] 03-13-2024 14:35-0500 Body mass index (BMI) [Ratio] 32.49 kg/m2 Alka Noriega MD Work Phone: [facility] 03-13-2024 14:35-0500 Body temperature 97.81 [degF] Alka Noriega MD Work Phone: [facility] 03-13-2024 14:35-0500 Body weight 99.79 kg Alka Noriega MD Work Phone: [facility] 03-13-2024 14:35-0500 Diastolic blood pressure 60 mm[Hg] Alka Noriega MD Work Phone: [facility] Comment on above: rt arm 03-13-2024 14:35-0500 Heart rate 87 /min Alka Noriega MD Work Phone: [facility] 03-13-2024 14:35-0500 SaO2% (BldA) [Mass fraction] 99 % Alka Noriega MD Work Phone: [facility] 03-13-2024 14:35-0500 Systolic blood pressure 122 mm[Hg] Alka Noriega MD Work Phone: [facility] Comment on above: rt arm 02-12-2024 15:22-0500 Body temperature 97.7 [degF] Treatment 3 [facility] 02-12-2024 15:22-0500 Diastolic blood pressure 65 mm[Hg] Treatment 3 [facility] 02-12-2024 15:22-0500 Heart rate 61 /min Treatment 3 [facility] 02-12-2024 15:22-0500 Respiratory rate 16 /min Treatment 3 [facility] 02-12-2024 15:22-0500 SaO2% (BldA) [Mass fraction] 98 % Treatment 3 [facility] 02-12-2024 15:22-0500 Systolic blood pressure 159 mm[Hg] Treatment 3 [facility] 02-07-2024 15:55-0500 Body temperature 97.2 [degF] [facility] 02-07-2024 15:55-0500 Diastolic blood pressure 71 mm[Hg] [facility] 02-07-2024 15:55-0500 Heart rate 70 /min [facility] 02-07-2024 15:55-0500 Respiratory rate 18 /min [facility] 02-07-2024 15:55-0500 Systolic blood pressure 162 mm[Hg] [facility] 02-07-2024 09:40-0500 Body mass index (BMI) [Ratio] 32.12 kg/m2 [facility] 02-07-2024 09:40-0500 Body weight 98.6 kg [facility] 02-07-2024 09:40-0500 SaO2% (BldA) [Mass fraction] 98 % [facility] 01-30-2024 16:52-0500 Body temperature 97.39 [degF] Treatment 1 [facility] 01-30-2024 16:52-0500 Diastolic blood pressure 64 mm[Hg] Treatment 1 [facility] 01-30-2024 16:52-0500 Heart rate 67 /min Treatment 1 [facility] 01-30-2024 16:52-0500 Respiratory rate 18 /min Treatment 1 [facility] 01-30-2024 16:52-0500 SaO2% (BldA) [Mass fraction] 98 % Treatment 1 [facility] 01-30-2024 16:52-0500 Systolic blood pressure 153 mm[Hg] Treatment [address] [place] [address] 01-10-2024 15:27-0500 Diastolic blood pressure 76 mm[Hg] [facility] 01-10-2024 15:27-0500 Heart rate 64 /min [facility] 01-10-2024 15:27-0500 Systolic blood pressure 167 mm[Hg] [facility] 01-10-2024 09:59-0500 Body height 175.2 cm [facility] 01-10-2024 09:59-0500 Body mass index (BMI) [Ratio] 31.5 kg/m2 [facility] 01-10-2024 09:59-0500 Body temperature 97.3 [degF] [facility] 01-10-2024 09:59-0500 Body weight 96.7 kg [facility] 01-10-2024 09:59-0500 SaO2% (BldA) [Mass fraction] 95 % [facility] 12-31-2023 10:21-0500 Body mass index (BMI) [Ratio] 31.6 kg/m2 [facility] 12-31-2023 10:21-0500 Body temperature 97.5 [degF] [facility] 12-31-2023 10:21-0500 Body weight 97.1 kg [facility] 12-31-2023 10:21-0500 Diastolic blood pressure 58 mm[Hg] [facility] 12-31-2023 10:21-0500 Heart rate 84 /min [facility] 12-31-2023 10:21-0500 SaO2% (BldA) [Mass fraction] 97 % [facility] 12-31-2023 10:21-0500 Systolic blood pressure 121 mm[Hg] [facility] 12-11-2023 14:06-0400 Body temperature 98.8 [degF] Treatment [address] [place] [address] 12-11-2023 14:06-0400 Diastolic blood pressure 68 mm[Hg] Treatment [address] [place] [address] 12-11-2023 14:06-0400 Heart rate 69 /min Treatment [address] [place] [address] 12-11-2023 14:06-0400 Respiratory rate 20 /min Treatment [address] [place] [address] 12-11-2023 14:06-0400 SaO2% (BldA) [Mass fraction] 97 % Treatment [address] [place] [address] 12-11-2023 14:06-0400 Systolic blood pressure 169 mm[Hg] Treatment [address] [place] [address] 11-28-2023 14:44-0400 Body height 175.3 cm Alka Noriega MD Work Phone: [facility] 11-28-2023 14:44-0400 Body mass index (BMI) [Ratio] 32.3 kg/m2 Alka Noriega MD Work Phone: [facility] 11-28-2023 14:44-0400 Body weight 99.25 kg Alka Noriega MD Work Phone: [facility] 11-28-2023 14:44-0400 Diastolic blood pressure 68 mm[Hg] Alka Noriega MD Work Phone: [facility] 11-28-2023 14:44-0400 Heart rate 70 /min Alka Noriega MD Work Phone: [facility] 11-28-2023 14:44-0400 SaO2% (BldA) [Mass fraction] 97 % Alka Noriega MD Work Phone: [facility] 11-28-2023 14:44-0400 Systolic blood pressure 167 mm[Hg] Alka Noriega MD Work Phone: [facility] 11-20-2023 16:16-0400 Diastolic blood pressure 70 mm[Hg] Treatment 1 [facility] 11-20-2023 16:16-0400 Systolic blood pressure 178 mm[Hg] Treatment 1 [facility] 11-20-2023 15:55-0400 Body temperature 98.2 [degF] Treatment 1 [facility] 11-20-2023 15:55-0400 Heart rate 65 /min Treatment 1 [facility] 11-20-2023 15:55-0400 Respiratory rate 16 /min Treatment 1 [facility] 11-19-2023 13:12-0400 Body temperature 98.4 [degF] Treatment 2 [facility] 11-19-2023 13:12-0400 Diastolic blood pressure 62 mm[Hg] Treatment 2 [facility] 11-19-2023 13:12-0400 Heart rate 69 /min Treatment 2 [facility] 11-19-2023 13:12-0400 Respiratory rate 20 /min Treatment 2 [facility] 11-19-2023 13:12-0400 SaO2% (BldA) [Mass fraction] 96 % Treatment 2 [facility] 11-19-2023 13:12-0400 Systolic blood pressure 133 mm[Hg] Treatment 2 [facility] 10-29-2023 14:00-0400 Diastolic blood pressure 60 mm[Hg] Treatment 2 [facility] 10-29-2023 14:00-0400 Heart rate 74 /min Treatment 2 [facility] 10-29-2023 14:00-0400 Respiratory rate 16 /min Treatment 2 [facility] 10-29-2023 14:00-0400 SaO2% (BldA) [Mass fraction] 96 % Treatment 2 [facility] 10-29-2023 14:00-0400 Systolic blood pressure 138 mm[Hg] Treatment 2 [facility] 10-08-2023 14:29-0400 Body temperature 98.49 [degF] Treatment 1 [facility] 10-08-2023 14:29-0400 Diastolic blood pressure 66 mm[Hg] Treatment 1 [facility] 10-08-2023 14:29-0400 Heart rate 70 /min Treatment 1 [facility] 10-08-2023 14:29-0400 Respiratory rate 16 /min Treatment 1 [facility] 10-08-2023 14:29-0400 SaO2% (BldA) [Mass fraction] 98 % Treatment 1 [facility] 10-08-2023 14:29-0400 Systolic blood pressure 169 mm[Hg] Treatment 1 [facility] 10-03-2023 15:20-0400 Body height 175.3 cm Alka Noriega MD Work Phone: [facility] 10-03-2023 15:20-0400 Body mass index (BMI) [Ratio] 32.34 kg/m2 Alka Noriega MD Work Phone: [facility] 10-03-2023 15:20-0400 Body temperature 97.81 [degF] Alka Noriega MD Work Phone: [facility] 10-03-2023 15:20-0400 Body weight 99.34 kg Alka Noriega MD Work Phone: [facility] 10-03-2023 15:20-0400 Diastolic blood pressure 72 mm[Hg] Alka Noriega MD Work Phone: [facility] Comment on above: rt arm 10-03-2023 15:20-0400 Heart rate 58 /min Alka Noriega MD Work Phone: [facility] 10-03-2023 15:20-0400 SaO2% (BldA) [Mass fraction] 93 % Alka Noriega MD Work Phone: [facility] 10-03-2023 15:20-0400 Systolic blood pressure 155 mm[Hg] Alka Noriega MD Work Phone: [facility] Comment on above: rt arm 09-19-2023 13:19-0400 Body height 175.3 cm Rowenajuan Abdihausmoise STORAGE BATTERY INSPECTOR.ECHOCARDIOLOGIST Work Phone: [facility] 09-19-2023 13:19-0400 Body mass index (BMI) [Ratio] 31.58 kg/m2 Rowenajuan Abdihausen STORAGE BATTERY INSPECTOR.ECHOCARDIOLOGIST Work Phone: [facility] 09-19-2023 13:19-0400 Body weight 97 kg Rowenajuan Abdihausen STORAGE BATTERY INSPECTOR.ECHOCARDIOLOGIST Work Phone: [facility] 09-19-2023 13:19-0400 Diastolic blood pressure 70 mm[Hg] Rowena Abdihausmoise STORAGE BATTERY INSPECTOR.ECHOCARDIOLOGIST Work Phone: [facility] 09-19-2023 13:19-0400 Heart rate 68 /min Rowenajuan Abdihausmoise STORAGE BATTERY INSPECTOR.ECHOCARDIOLOGIST Work Phone: [facility] 09-19-2023 13:19-0400 SaO2% (BldA) [Mass fraction] 97 % Rowena Parra STORAGE BATTERY INSPECTOR.ECHOCARDIOLOGIST Work Phone: [facility] 09-19-2023 13:19-0400 Systolic blood pressure 138 mm[Hg] Rowena Dahlhausen STORAGE BATTERY INSPECTOR.ECHOCARDIOLOGIST Work Phone: [facility] 09-18-2023 15:37-0400 Diastolic blood pressure 77 mm[Hg] Treatment 1 [facility] 09-18-2023 15:37-0400 Heart rate 65 /min Treatment 1 [facility] 09-18-2023 15:37-0400 Respiratory rate 18 /min Treatment 1 [facility] 09-18-2023 15:37-0400 SaO2% (BldA) [Mass fraction] 97 % Treatment 1 [facility] 09-18-2023 15:37-0400 Systolic blood pressure 172 mm[Hg] Treatment 1 [facility] 09-18-2023 15:25-0400 Body temperature 97.7 [degF] Treatment 1 [facility] 09-13-2023 13:49-0400 Body temperature 98.71 [degF] Treatment 1 [facility] 09-13-2023 13:49-0400 Diastolic blood pressure 63 mm[Hg] Treatment 1 [facility] 09-13-2023 13:49-0400 Heart rate 82 /min Treatment 1 [facility] 09-13-2023 13:49-0400 Respiratory rate 16 /min Treatment 1 [facility] 09-13-2023 13:49-0400 SaO2% (BldA) [Mass fraction] 97 % Treatment 1 [facility] 09-13-2023 13:49-0400 Systolic blood pressure 128 mm[Hg] Treatment 1 [facility] 08-23-2023 13:35-0400 Body temperature 99.1 [degF] Treatment 1 [facility] 08-23-2023 13:35-0400 Diastolic blood pressure 55 mm[Hg] Treatment 1 [facility] 08-23-2023 13:35-0400 Heart rate 76 /min Treatment 1 [facility] 08-23-2023 13:35-0400 Respiratory rate 16 /min Treatment 1 [facility] 08-23-2023 13:35-0400 SaO2% (BldA) [Mass fraction] 97 % Treatment 1 [facility] 08-23-2023 13:35-0400 Systolic blood pressure 122 mm[Hg] Treatment 1 [facility] 08-02-2023 13:46-0400 Body temperature 97.9 [degF] Treatment 1 [facility] 08-02-2023 13:46-0400 Diastolic blood pressure 72 mm[Hg] Treatment 1 [facility] 08-02-2023 13:46-0400 Heart rate 77 /min Treatment 1 [facility] 08-02-2023 13:46-0400 Respiratory rate 16 /min Treatment 1 [facility] 08-02-2023 13:46-0400 SaO2% (BldA) [Mass fraction] 97 % Treatment 1 [facility] 08-02-2023 13:46-0400 Systolic blood pressure 116 mm[Hg] Treatment 1 [facility] 08-01-2023 14:39-0400 Body height 175.3 cm Alka Noriega MD Work Phone: [facility] 08-01-2023 14:39-0400 Body mass index (BMI) [Ratio] 32.34 kg/m2 Alka Noriega MD Work Phone: [facility] 08-01-2023 14:39-0400 Body weight 99.34 kg Alka Noriega MD Work Phone: [facility] 08-01-2023 14:39-0400 Diastolic blood pressure 68 mm[Hg] Alka Noriega MD Work Phone: [facility] Comment on above: right arm 08-01-2023 14:39-0400 Heart rate 94 /min Alka Noriega MD Work Phone: [facility] 08-01-2023 14:39-0400 SaO2% (BldA) [Mass fraction] 98 % Alka Noriega MD Work Phone: [facility] 08-01-2023 14:39-0400 Systolic blood pressure 150 mm[Hg] Alka Noriega MD Work Phone: [facility] Comment on above: right arm 07-12-2023 10:28-0400 Body temperature 98.01 [degF] Treatment 1 [facility] 07-12-2023 10:28-0400 Diastolic blood pressure 60 mm[Hg] Treatment 1 [facility] 07-12-2023 [id number] Heart rate 70 /min Treatment 1 [facility] 07-12-2023 10:28-0400 Respiratory rate 16 /min Treatment 1 [facility] 07-12-2023 10:28-0400 SaO2% (BldA) [Mass fraction] 98 % Treatment 1 [facility] 07-12-2023 [id number] Systolic blood pressure 134 mm[Hg] Treatment 1 [facility] 06-28-2023 14:20-0400 Body height 175.3 cm Rowena Dahlhausen STORAGE BATTERY INSPECTOR.ECHOCARDIOLOGIST Work Phone: [facility] 06-28-2023 14:20-0400 Body mass index (BMI) [Ratio] 32.52 kg/m2 Rowena Dahlhausen STORAGE BATTERY INSPECTOR.ECHOCARDIOLOGIST Work Phone: [facility] 06-28-2023 14:20-0400 Body weight 99.9 kg Rowena Dahlhausen STORAGE BATTERY INSPECTOR.ECHOCARDIOLOGIST Work Phone: [facility] 06-28-2023 14:20-0400 Diastolic blood pressure 69 mm[Hg] Rowena Dahlhausen STORAGE BATTERY INSPECTOR.ECHOCARDIOLOGIST Work Phone: [facility] 06-28-2023 14:20-0400 Heart rate 78 /min Rowena Dahlhausen STORAGE BATTERY INSPECTOR.ECHOCARDIOLOGIST Work Phone: [facility] 06-28-2023 14:20-0400 SaO2% (BldA) [Mass fraction] 98 % Rowena Dahlhausen STORAGE BATTERY INSPECTOR.ECHOCARDIOLOGIST Work Phone: [facility] 06-28-2023 14:20-0400 Systolic blood pressure 126 mm[Hg] Rowena Dahlhausen STORAGE BATTERY INSPECTOR.ECHOCARDIOLOGIST Work Phone: [facility] 06-21-2023 14:13-0400 Body temperature 99 [degF] Treatment 1 [facility] 06-21-2023 14:13-0400 Diastolic blood pressure 65 mm[Hg] Treatment 1 [facility] 06-21-2023 14:13-0400 Heart rate 75 /min Treatment 1 [facility] 06-21-2023 14:13-0400 Respiratory rate 20 /min Treatment 1 [facility] 06-21-2023 14:13-0400 SaO2% (BldA) [Mass fraction] 97 % Treatment 1 [facility] 06-21-2023 14:13-0400 Systolic blood pressure 160 mm[Hg] Treatment 1 [facility] 06-03-2023 14:01-0400 Body height 177.8 cm Alka Noriega MD Work Phone: [facility] 06-03-2023 14:01-0400 Body mass index (BMI) [Ratio] 31.14 kg/m2 Alka Noriega MD Work Phone: [facility] 06-03-2023 14:01-0400 Body temperature 98.1 [degF] Alka Noriega MD Work Phone: [facility] 06-03-2023 14:01-0400 Body weight 98.43 kg Alka Noriega MD Work Phone: [facility] 06-03-2023 14:01-0400 Diastolic blood pressure 67 mm[Hg] Alka Noriega MD Work Phone: [facility] Comment on above: right arm 06-03-2023 14:01-0400 Heart rate 89 /min Alka Noriega MD Work Phone: [facility] 06-03-2023 14:01-0400 SaO2% (BldA) [Mass fraction] 98 % Alka Noriega MD Work Phone: [facility] 06-03-2023 14:01-0400 Systolic blood pressure 169 mm[Hg] Alka Noriega MD Work Phone: [facility] Comment on above: right arm 05-30-2023 14:08-0400 Body temperature 98.6 [degF] Treatment 1 [facility] 05-30-2023 14:08-0400 Diastolic blood pressure 59 mm[Hg] Treatment 1 [facility] 05-30-2023 14:08-0400 Heart rate 73 /min Treatment 1 [facility] 05-30-2023 14:08-0400 Respiratory rate 20 /min Treatment 1 [facility] 05-30-2023 14:08-0400 SaO2% (BldA) [Mass fraction] 97 % Treatment 1 [facility] 05-30-2023 14:08-0400 Systolic blood pressure 139 mm[Hg] Treatment 1 [facility] 05-10-2023 14:15-0400 Body temperature 98.29 [degF] Treatment 1 [facility] 05-10-2023 14:15-0400 Diastolic blood pressure 65 mm[Hg] Treatment 1 [facility] 05-10-2023 14:15-0400 Heart rate 75 /min Treatment 1 [facility] 05-10-2023 14:15-0400 Respiratory rate 20 /min Treatment 1 [facility] 05-10-2023 14:15-0400 SaO2% (BldA) [Mass fraction] 98 % Treatment 1 [facility] 05-10-2023 14:15-0400 Systolic blood pressure 135 mm[Hg] Treatment 1 [facility] 04-19-2023 14:25-0500 Body temperature 98.91 [degF] Treatment 1 [facility] 04-19-2023 14:25-0500 Diastolic blood pressure 64 mm[Hg] Treatment 1 [facility] 04-19-2023 14:25-0500 Heart rate 89 /min Treatment 1 [facility] 04-19-2023 14:25-0500 Respiratory rate 18 /min Treatment 1 [facility] 04-19-2023 14:25-0500 SaO2% (BldA) [Mass fraction] 100 % Treatment 1 [facility] 04-19-2023 14:25-0500 Systolic blood pressure 127 mm[Hg] Treatment 1 [facility] 04-08-2023 15:07-0500 Body height 177.8 cm Alka Noriega MD Work Phone: [facility] 04-08-2023 15:07-0500 Body mass index (BMI) [Ratio] 30.71 kg/m2 Alka Noriega MD Work Phone: [facility] 04-08-2023 15:07-0500 Body temperature 98.2 [degF] Alka Noriega MD Work Phone: [facility] 04-08-2023 15:07-0500 Body weight 97.07 kg Alka Noriega MD Work Phone: [facility] 04-08-2023 15:07-0500 Diastolic blood pressure 71 mm[Hg] Alka Noriega MD Work Phone: [facility] Comment on above: left arm 04-08-2023 15:07-0500 Heart rate 75 /min Alka Noriega MD Work Phone: [facility] 04-08-2023 15:07-0500 SaO2% (BldA) [Mass fraction] 98 % Alka Noriega MD Work Phone: [facility] 04-08-2023 15:07-0500 Systolic blood pressure 177 mm[Hg] Alka Noriega MD Work Phone: [facility] Comment on above: left arm 03-29-2023 14:57-0500 Body temperature 97.3 [degF] Chair Bath Work Phone: [facility] 03-29-2023 14:57-0500 Body weight 96.89 kg Chair Bath Work Phone: [facility] 03-29-2023 14:57-0500 Diastolic blood pressure 76 mm[Hg] Chair Bath Work Phone: [facility] 03-29-2023 14:57-0500 Heart rate 72 /min Chair Bath Work Phone: [facility] 03-29-2023 14:57-0500 Respiratory rate 18 /min Chair Bath Work Phone: [facility] 03-29-2023 14:57-0500 SaO2% (BldA) [Mass fraction] 96 % Chair Bath Work Phone: [facility] 03-29-2023 14:57-0500 Systolic blood pressure 175 mm[Hg] Chair Bath Work Phone: [facility] 03-05-2023 14:02-0500 Body height 177.8 cm Alka Noriega MD Work Phone: [facility] 03-05-2023 14:02-0500 Body mass index (BMI) [Ratio] 30.85 kg/m2 Alka Noriega MD Work Phone: [facility] 03-05-2023 14:02-0500 Body temperature 98.4 [degF] Alka Noriega MD Work Phone: [facility] 03-05-2023 14:02-0500 Body weight 97.52 kg Alka Noriega MD Work Phone: [facility] 03-05-2023 14:02-0500 Diastolic blood pressure 72 mm[Hg] Alka Noriega MD Work Phone: [facility] Comment on above: right arm 03-05-2023 14:02-0500 Heart rate 70 /min Alka Noriega MD Work Phone: [facility] 03-05-2023 14:02-0500 SaO2% (BldA) [Mass fraction] 97 % Alka Noriega MD Work Phone: [facility] 03-05-2023 14:02-0500 Systolic blood pressure 162 mm[Hg] Alka Noriega MD Work Phone: [facility] Comment on above: right arm 12-11-2022 14:58-0400 Body height 177.8 cm Alka Noriega MD Work Phone: [facility] 12-11-2022 14:58-0400 Body mass index (BMI) [Ratio] 30.85 kg/m2 Alka Noriega MD Work Phone: [facility] 12-11-2022 14:58-0400 Body temperature 97.7 [degF] Alka Noriega MD Work Phone: [facility] 12-11-2022 14:58-0400 Body weight 97.52 kg Alka Noriega MD Work Phone: [facility] 12-11-2022 14:58-0400 Diastolic blood pressure 65 mm[Hg] Alka Noriega MD Work Phone: [facility] Comment on above: left arm 12-11-2022 14:58-0400 Heart rate 89 /min Alka Noriega MD Work Phone: [facility] 12-11-2022 14:58-0400 SaO2% (BldA) [Mass fraction] 99 % Alka Noriega MD Work Phone: [facility] 12-11-2022 14:58-0400 Systolic blood pressure 162 mm[Hg] Alka Noriega MD Work Phone: [facility] Comment on above: left arm 11-29-2022 15:38-0400 Body temperature 98.01 [degF] Treatment 2 [facility] 11-29-2022 15:38-0400 Diastolic blood pressure 68 mm[Hg] Treatment 2 [facility] 11-29-2022 15:38-0400 Heart rate 65 /min Treatment 2 [facility] 11-29-2022 15:38-0400 Respiratory rate 18 /min Treatment 2 [facility] 11-29-2022 15:38-0400 Systolic blood pressure 179 mm[Hg] Treatment 2 [facility] 11-29-2022 13:50-0400 SaO2% (BldA) [Mass fraction] 98 % Treatment 2 [facility] 11-16-2022 14:42-0400 Body height 177.8 cm Alka Noriega MD Work Phone: [facility] 11-16-2022 14:42-0400 Body mass index (BMI) [Ratio] 30.13 kg/m2 Alka Noriega MD Work Phone: [facility] 11-16-2022 14:42-0400 Body weight 95.25 kg Alka Noriega MD Work Phone: [facility] 11-16-2022 14:42-0400 Diastolic blood pressure 76 mm[Hg] Alka Noriega MD Work Phone: [facility] 11-16-2022 14:42-0400 Heart rate 72 /min Alka Noriega MD Work Phone: [facility] 11-16-2022 14:42-0400 SaO2% (BldA) [Mass fraction] 96 % Alka Noriega MD Work Phone: [facility] 11-16-2022 14:42-0400 Systolic blood pressure 152 mm[Hg] Alka Noriega MD Work Phone: [facility] 10-31-2022 15:35-0400 Body temperature 98.01 [degF] Treatment 3 [facility] 10-31-2022 15:35-0400 Diastolic blood pressure 66 mm[Hg] Treatment 3 [facility] 10-31-2022 15:35-0400 Heart rate 61 /min Treatment 3 [facility] 10-31-2022 15:35-0400 Respiratory rate 16 /min Treatment 3 [facility] 10-31-2022 15:35-0400 SaO2% (BldA) [Mass fraction] 97 % Treatment 3 [facility] 10-31-2022 15:35-0400 Systolic blood pressure 146 mm[Hg] Treatment 3 [facility] 10-11-2022 14:11-0400 Body height 176.5 cm Alka Noriega MD Work Phone: [facility] 10-11-2022 14:11-0400 Body mass index (BMI) [Ratio] 30.57 kg/m2 Alak Noriega MD Work Phone: [facility] 10-11-2022 14:11-0400 Body temperature 98.1 [degF] Alka Noriega MD Work Phone: [facility] 10-11-2022 14:11-0400 Body weight 95.25 kg Alka Noriega MD Work Phone: [facility] 10-11-2022 14:11-0400 Diastolic blood pressure 73 mm[Hg] Alka Noriega MD Work Phone: [facility] Comment on above: right arm 10-11-2022 14:11-0400 Heart rate 72 /min Alka Noriega MD Work Phone: [facility] 10-11-2022 14:11-0400 SaO2% (BldA) [Mass fraction] 98 % Alka Noriega MD Work Phone: [facility] 10-11-2022 14:11-0400 Systolic blood pressure 158 mm[Hg] Alka Noriega MD Work Phone: [facility] Comment on above: right arm 09-12-2022 15:30-0400 Body temperature 98.1 [degF] Chair Bath Work Phone: [facility] 09-12-2022 15:30-0400 Diastolic blood pressure 72 mm[Hg] Chair Bath Work Phone: [facility] 09-12-2022 15:30-0400 Heart rate 70 /min Chair Bath Work Phone: [facility] 09-12-2022 15:30-0400 Respiratory rate 16 /min Chair Bath Work Phone: [facility] 09-12-2022 15:30-0400 Systolic blood pressure 126 mm[Hg] Chair Bath Work Phone: [facility] 09-11-2022 13:57-0400 Body height 176.5 cm Owen Ac STORAGE BATTERY INSPECTOR.ECHOCARDIOLOGIST Work Phone: [facility] 09-11-2022 13:57-0400 Body weight 95.25 kg Owen Whitleyim STORAGE BATTERY INSPECTOR.ECHOCARDIOLOGIST Work Phone: [facility] 09-11-2022 13:57-0400 Diastolic blood pressure 65 mm[Hg] Owen Whitleyim STORAGE BATTERY INSPECTOR.ECHOCARDIOLOGIST Work Phone: [facility] 09-11-2022 13:57-0400 Heart rate 70 /min Owen Ac STORAGE BATTERY INSPECTOR.ECHOCARDIOLOGIST Work Phone: [facility] 09-11-2022 13:57-0400 SaO2% (BldA) [Mass fraction] 99 % wOen Ac STORAGE BATTERY INSPECTOR.ECHOCARDIOLOGIST Work Phone: [facility] 09-11-2022 13:57-0400 Systolic blood pressure 130 mm[Hg] Owen Ac STORAGE BATTERY INSPECTOR.ECHOCARDIOLOGIST Work Phone: [facility] 07-31-2022 14:04-0400 Body height 176.[address] German Robertson Work Phone: [facility] 07-31-2022 14:04-0400 Body mass index (BMI) [Ratio] 30.9 kg/m2 Dr. German Robertson Work Phone: [facility] 07-31-2022 14:04-0400 Body temperature 98.4 [degF] Dr. German Robertson Work Phone: [facility] 07-31-2022 14:04-0400 Body weight 96.[address] German Robertson Work Phone: [facility] 07-31-2022 14:04-0400 Diastolic blood pressure 78 mm[Hg] Dr. German Robertson Work Phone: [facility] 07-31-2022 14:04-0400 Heart rate 68 /min Dr. German Robertson Work Phone: [facility] 07-31-2022 14:04-0400 Respiratory rate 16 /min Dr. German Robertson Work Phone: [facility] 07-31-2022 14:04-0400 SaO2% (BldA) [Mass fraction] 96 % Dr. German Robertson Work Phone: [facility] 07-31-2022 14:04-0400 Systolic blood pressure 160 mm[Hg] Dr. German Robertson Work Phone: [facility] 07-03-2022 15:23-0400 Body height 176.5 cm Alka Noriega MD Work Phone: [facility] 07-03-2022 15:23-0400 Body mass index (BMI) [Ratio] 31 kg/m2 Alka Noriega MD Work Phone: [facility] 07-03-2022 15:23-0400 Body temperature 99.1 [degF] Alka Noriega MD Work Phone: [facility] 07-03-2022 15:23-0400 Body weight 96.62 kg Alka Noriega MD Work Phone: [facility] 07-03-2022 15:23-0400 Diastolic blood pressure 63 mm[Hg] Alka Noriega MD Work Phone: [facility] Comment on above: rt arm 07-03-2022 15:23-0400 Heart rate 82 /min Alka Noriega MD Work Phone: [facility] 07-03-2022 15:23-0400 SaO2% (BldA) [Mass fraction] 97 % Alka Noriega MD Work Phone: [facility] 07-03-2022 15:23-0400 Systolic blood pressure 137 mm[Hg] Alka Noriega MD Work Phone: [facility] Comment on above: rt arm 06-01-2022 12:00-0400 Diastolic blood pressure 60 mm[Hg] Teddy Terrazas MD Work Phone: [facility] 06-01-2022 12:00-0400 SaO2% (BldA) [Mass fraction] 93 % Teddy Terrazas MD Work Phone: [facility] 06-01-2022 12:00-0400 Systolic blood pressure 125 mm[Hg] Teddy Terrazas MD Work Phone: [facility] 06-01-2022 10:50-0400 Heart rate 63 /min Teddy Terrazas MD Work Phone: [facility] 06-01-2022 10:50-0400 Respiratory rate 18 /min Teddy Terrazas MD Work Phone: [facility] 04-13-2022 13:59-0500 Body height 176.[address] German Robertson Work Phone: [facility] 04-13-2022 13:59-0500 Body mass index (BMI) [Ratio] 31.3 kg/m2 Dr. German Robertson Work Phone: [facility] 04-13-2022 13:59-0500 Body temperature 97.3 [degF] Dr. German Robertson Work Phone: [facility] 04-13-2022 13:59-0500 Body weight 97.[address] German Robertson Work Phone: [facility] 04-13-2022 13:59-0500 Diastolic blood pressure 69 mm[Hg] Dr. German Robertson Work Phone: [facility] 04-13-2022 13:59-0500 Heart rate 68 /min Dr. German Robertson Work Phone: [facility] 04-13-2022 13:59-0500 Respiratory rate 18 /min Dr. German Robertson Work Phone: [facility] 04-13-2022 13:59-0500 SaO2% (BldA) [Mass fraction] 96 % Dr. German Robertson Work Phone: [facility] 04-13-2022 13:59-0500 Systolic blood pressure 155 mm[Hg] Dr. German Robertson Work Phone: [facility] 09-07-2021 07:17-0400 Body temperature 98.4 [degF] Dr. German Robertson Work Phone: [facility] Work Phone: 09-07-2021 07:17-0400 Diastolic blood pressure 75 mm[Hg] Dr. German Robertson Work Phone: [facility] Work Phone: 09-07-2021 07:17-0400 Heart rate 67 /min Dr. German Robertson Work Phone: [facility] Work Phone: 09-07-2021 07:17-0400 Respiratory rate 16 /min Dr. German Robertson Work Phone: [facility] Work Phone: 09-07-2021 07:17-0400 SaO2% (BldA) [Mass fraction] 95 % Dr. German Robertson Work Phone: [facility] Work Phone: 09-07-2021 07:17-0400 Systolic blood pressure 150 mm[Hg] Dr. German Robertson Work Phone: [facility] Work Phone: 09-07-2021 05:56-0400 Body height 176.[address] German Robertson Work Phone: [facility] Work Phone: 09-07-2021 05:56-0400 Body mass index (BMI) [Ratio] 30.8 kg/m2 Dr. German Robertson Work Phone: [facility] Work Phone: 09-07-2021 05:56-0400 Body weight 96.[address] German Robertson Work Phone: [facility] Work Phone: Encounters Encounter Date Encounter Type Care Provider Facility Start: 08-05-2024 End: 08-06-2024 Telephone encounter Alka Noriega MD Work Phone: [facility] Hematology/Oncology Start: 08-05-2024 End: 08-05-2024 ambulatory ALKA NORIEGA Facility:[facility] Start: 08-04-2024 End: 08-04-2024 ambulatory ALKA ZELAYA-ANTHONY Facility:[facility] Start: 07-29-2024 End: 07-29-2024 ambulatory Treatment Room [facility] 1 [facility]FUSION Comment on above: Anemia, unspecified type (Primary Dx); Myelodysplastic syndrome, unspecified (HCC) Start: 07-28-2024 End: 07-28-2024 ambulatory GERMAN ROBERTSON Facility:[facility] Start: 07-27-2024 End: 07-27-2024 Telephone encounter Fiorella Murdock MA [facility] Comment on above: Labs Only Start: 07-24-2024 End: 07-24-2024 Office outpatient new 60 minutes Sabas You MD Work Phone: [facility] Comment on above: MDS (myelodysplastic syndrome) (HCC) (Primary Dx) Start: 07-24-2024 End: 07-24-2024 ambulatory SABAS YOU [facility] Start: 07-23-2024 End: 07-23-2024 ambulatory GERMAN ROBERTSON Facility:[facility] Start: 07-21-2024 ambulatory GERMAN ROBERTSON Facility:[facility] Start: 07-21-2024 End: 07-21-2024 Subsequent hospital visit by physician Rodrigo Magana MD Work Phone: [facility] Comment on above: Myelodysplastic synd aric, unspecified (HCC) [D46.9] Start: 07-17-2024 End: 07-17-2024 ambulatory GERMAN ROBERTSON Facility:[facility] Start: 07-16-2024 End: 07-16-2024 ambulatory GERMAN ROBERTSON Facility:[facility] Start: 07-15-2024 End: 07-15-2024 ambulatory GERMAN ROBERTSON Facility:[facility] Start: 07-14-2024 ambulatory German Robertson Facility :[facility] Start: 07-09-2024 End: 07-09-2024 ambulatory GERMAN ROBERTSON Facility:[facility] Start: 07-03-2024 End: 07-03-2024 ambulatory Treatment Room [facility] 1 INFUSION Comment on above: Anemia, unspecified type (Primary Dx); Myelodysplastic syndrome, unspecified (HCC) Start: 07-02-2024 End: 07-02-2024 Emergency department patient visit KIRTI EILEEN Facility:[facility] Start: 06-30-2024 End: 06-30-2024 ambulatory GERMAN ROBERTSON Facility:[facility] Start: 06-30-2024 End: 06-30-2024 Patient encounter procedure Alka Noriega MD Work Phone: [facility] Hematology/Oncology Start: 06-30-2024 End: 06-30-2024 ambulatory Chair 7 [facility] [place] [facility]emat[facility]/Oncology Comment on above: 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); Myelodysplastic syndrome, unspecified (HCC); Clonal cytopenia of undetermined significance (CCUS); Anemia, unspecified type Myelodysplastic synd aric, unspecified (HCC) (Primary Dx); Clonal cytopenia of undetermined significance (CCUS); Anemia, unspecified type Start: 06-20-2024 End: 06-20-2024 ambulatory Jim Suarez RN [facility] Start: 06-20-2024 End: 06-20-2024 Patient encounter procedure Jim Suarez RN [facility] Start: 06-09-2024 End: 06-19-2024 Evaluation and management of inpatient MAYNOR Kehinde ANDRES Facility:[facility] Start: 06-06-2024 End: 06-09-2024 ambulatory GERMAN ROBERTSON Facility:[facility] Start: 06-03-2024 End: 06-05-2024 ambulatory [facility] Start: 06-02-2024 End: 06-02-2024 amb[address] Chair 4 [facility] [place] Hematology/Oncology Comment on above: Myelodysplastic synd aric, unspecified (HCC) (Primary Dx); Clonal cytopenia of undetermined significance (CCUS) Start: 05-26-2024 End: 05-26-2024 ambulatory Treatment Room [facility] 1 INFUSION Comment on above: Anemia, unspecified type (Primary Dx); Myelodysplastic syndrome, unspecified (HCC); Cancer of unknown origin (HCC) Start: 05-25-2024 End: 05-25-2024 [facility] Start: 05-20-2024 End: 05-20-2024 ambulatory Philip Andrea RN INFUSION Start: 05-06-2024 End: 05-06-2024 ambulatory Treatment Room [facility] 1 INFUSION Comment on above: Anemia, unspecified type (Primary Dx); Myelodysplastic syndrome, unspecified (HCC) Start: 05-05-2024 End: 05-05-2024 ambulatory Owen Ac APRN.ECHOCARDIOLOGIST Work Phone: [facility] Hematology/Oncology Comment on above: Myelodysplastic synd aric, unspecified (HCC) (Primary Dx) Start: 05-05-2024 End: 05-05-2024 Patient encounter procedure Owen Ac APRN.ECHOCARDIOLOGIST Work Phone: [facility] Hematology/Oncology Start: 05-05-2024 End: 05-05-2024 ambulatory Chair Byron Sheppard Hematology/Oncology Comment on above: Myelodysplastic synd aric, unspecified (HCC) (Primary Dx); Anemia, unspecified type; Cancer of unknown origin (HCC) Start: 04-27-2024 End: 04-27-2024 ambulatory [facility] Facility:[facility] Start: 04-16-2024 End: 04-16-2024 ambulatory Treatment Room [facility] 1 INFUSION Comment on above: Anemia, unspecified type (Primary Dx); Myelodysplastic syndrome, unspecified (HCC) Start: 04-15-2024 End: 04-15-2024 Telephone encounter Alka Noriega MD Work Phone: [facility] Hematology/Oncology Start: 04-15-2024 End: 04-15-2024 [facility]ulatory [facility] Facility:[facility] Start: 04-14-2024 End: 04-15-2024 Telephone encounter Alka Noriega MD Work Phone: INFUSION Comment on above: Patient Question Start: 04-14-2024 End: 04-14-2024 ambulatory Treatment Room [facility] 1 INFUSION Comment on above: 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); Myelodysplastic syndrome, unspecified (HCC) Start: 04-07-2024 End: 04-07-2024 Patient encounter procedure Alka Noriega MD Work Phone: [facility] Hematology/Oncology Start: 04-07-2024 End: 04-07-2024 ambulatory Chair 9 [facility] Hematology/Oncology Comment on above: Myelodysplastic synd aric, unspecified (HCC) (Primary Dx) Myelodysplastic synd aric, unspecified (HCC) (Primary Dx); Clonal cytopenia of undetermined significance (CCUS); Platelets decreased (HCC); Anemia, unspecified type Start: 03-25-2024 End: 03-25-2024 ambulatory Treatment Room [facility] 1 INFUSION Comment on above: Anemia, unspecified type (Primary Dx); Myelodysplastic syndrome, unspecified (HCC) Start: 03-24-2024 End: 03-24-2024 Patient encounter procedure Alka Noriega MD Work Phone: [facility] Hematology/Oncology Start: 03-24-2024 End: 03-24-2024 ambulatory Chair 1 [facility] Hematology/Oncology Comment on above: 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); Myelodysplastic syndrome, unspecified (HCC); Anemia, unspecified type Myelodysplastic synd aric, unspecified (HCC) (Primary Dx); Clonal cytopenia of undetermined significance (CCUS); Platelets decreased (HCC); Anemia, unspecified type Start: 03-13-2024 End: 03-13-2024 Patient encounter procedure Alka Noriega MD Work Phone: [facility] Hematology/Oncology Start: 03-13-2024 End: 03-13-2024 ambulatory Alka Noriega MD Work Phone: [facility] Hematology/Oncology Comment on above: Myelodysplastic synd aric, unspecified (HCC) (Primary Dx); Clonal cytopenia of undetermined significance (CCUS); Platelets decreased (HCC); Anemia, unspecified type Start: 03-11-2024 End: 03-11-2024 ambulatory GERMAN ROBERTSON Facility:[facility] Start: 03-09-2024 End: 03-09-2024 Telephone encounter Alka Noriega MD Work Phone: [facility] Hematology/Oncology Comment on above: Scheduling Start: 03-05-2024 End: 03-06-2024 ambulatory GERMAN PARRANICOLA Facility:[facility] Start: 02-12-2024 End: 02-12-2024 ambulatory Treatment Room [facility] 3 INFUSION Comment on above: Anemia, unspecified type (Primary Dx); Myelodysplastic syndrome, unspecified (HCC) Start: 02-11-2024 End: 02-11-2024 Orders Only Alka Noriega MD Work Phone: [facility] Hematology/Oncology Start: 02-07-2024 End: 02-07-2024 ambulatory Chair 8 [facility] Hematology/Oncology Comment on above: Myelodysplastic synd aric, unspecified (HCC) (Primary Dx); Anemia, unspecified type Start: 01-30-2024 End: 01-30-2024 ambulatory Treatment Room [facility] 1 INFUSION Comment on above: Anemia, unspecified type (Primary Dx); Myelodysplastic syndrome, unspecified (HCC) Start: 01-28-2024 End: 01-28-2024 ambulatory ALKA NORIEGA Facility:[facility] Start: 01-10-2024 End: 01-10-2024 Patient encounter procedure Garry Jameson [facility] Hematology/Oncology Comment on above: Myelodysplastic synd aric, unspecified (HCC) (Primary Dx) Start: 01-10-2024 End: 01-10-2024 ambulatory Chair 4 [facility] Hematology/Oncology Comment on above: Myelodysplastic synd aric, unspecified (HCC) (Primary Dx) Start: 12-31-2023 End: 01-01-2024 ambulatory ALKA NORIEGA Facility:[facility] Start: 12-31-2023 End: 12-31-2023 ambulatory Maurisio Bry Facility:[facility] Start: 12-31-2023 End: 12-31-2023 ambulatory Chair 5 [facility] Hematology/Oncology Comment on above: Myelodysplastic synd aric, unspecified (HCC) (Primary Dx); Cancer of unknown origin (HCC) Myelodysplastic synd aric, unspecified (HCC) (Primary Dx); Clonal cytopenia of undetermined significance (CCUS); Anemia, unspecified type Start: 12-31-2023 End: 12-31-2023 Patient encounter procedure Alka Noriega MD Work Phone: [facility] Hematology/Oncology Start: 12-24-2023 End: 12-24-2023 Orders Only Owen Asha Yashira ARREDONDOECHOCARDIOLOGIST Work Phone: [facility] Hematology/Oncology Comment on above: Myelodysplastic synd aric, unspecified (HCC) (Primary Dx) Start: 12-11-2023 End: 12-11-2023 ambulatory Treatment Room [facility] 1 INFUSION Comment on above: 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); Myelodysplastic syndrome, unspecified (HCC) Start: 12-10-2023 End: 12-10-2023 ambulatory ALKA NORIEGA Facility:[facility] Start: 11-28-2023 End: 11-28-2023 Patient encounter procedure Alka Noriega MD Work Phone: [facility] Hematology/Oncology Start: 11-28-2023 End: 11-28-2023 ambulatory Alka Noriega MD Work Phone: [facility] Hematology/Oncology Comment on above: Myelodysplastic synd aric, unspecified (HCC) (Primary Dx); Clonal cytopenia of undetermined significance (CCUS); Anemia, unspecified type; Platelets decreased (HCC) Start: 11-20-2023 End: 11-20-2023 ambulatory Treatment Room [facility] 1 INFUSION Comment on above: Anemia, unspecified type (Primary Dx); Myelodysplastic syndrome, unspecified (HCC) Start: 11-19-2023 End: 11-19-2023 ambulatory Treatment Room [facility] 2 INFUSION Comment on above: 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); Myelodysplastic syndrome, unspecified (HCC); Clonal cytopenia of undetermined significance (CCUS) Start: 11-07-2023 End: 11-07-2023 Telephone encounter Alka Noriega MD Work Phone: INFUSION Comment on above: Patient Update Start: 11-06-2023 End: 11-06-2023 ambulatory GERMAN ROBERTSON Facility:[facility] Start: 10-29-2023 End: 10-29-2023 ambulatory Treatment Room [facility] 2 INFUSION Comment on above: 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); Myelodysplastic syndrome, unspecified (HCC); Clonal cytopenia of undetermined significance (CCUS) Start: 10-08-2023 End: 10-08-2023 ambulatory Treatment Room [facility] 1 INFUSION Comment on above: 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); Myelodysplastic syndrome, unspecified (HCC) Start: 10-03-2023 End: 10-03-2023 Patient encounter procedure Alka Noriega MD Work Phone: [facility] Hematology/Oncology Start: 10-03-2023 End: 10-03-2023 ambulatory Alka Noriega MD Work Phone: [facility] Hematology/Oncology Comment on above: Myelodysplastic synd aric, unspecified (HCC) (Primary Dx); Clonal cytopenia of undetermined significance (CCUS) Start: 09-30-2023 End: 09-30-2023 Emergency department patient visit GERMAN ROBERTSON Facility:[facility] Start: 09-19-2023 End: 09-19-2023 ambulatory [facility] Facility:[facility] Start: 09-19-2023 End: 09-19-2023 Patient encounter procedure Rowena Gonsaleshardy ANTONIO Work Phone: Neurology Comment on above: TIA (transient ische lula attack) (Primary Dx); Wenckebach; SVT (supraventricular tachycardia) (HCC) Start: 09-18-2023 End: 09-18-2023 ambulatory Treatment Room [facility] 1 INFUSION Comment on above: Anemia, unspecified type (Primary Dx); Myelodysplastic syndrome, unspecified (HCC) Start: 09-17-2023 End: 09-17-2023 ambulatory [facility] Facility:[facility] Start: 09-13-2023 Telephone encounter Alka Noriega MD Work Phone: INFUSION Comment on above: Patient Update Start: 09-13-2023 End: 09-13-2023 ambulatory Treatment Room [facility] 1 INFUSION Comment on above: 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); Myelodysplastic syndrome, unspecified (HCC); Anemia, unspecified type Start: 08-23-2023 Telephone encounter Alka Noriega MD Work Phone: INFUSION Comment on above: Patient Question Start: 08-23-2023 End: 08-23-2023 ambulatory Treatment Room [facility] 1 INFUSION Comment on above: 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); Myelodysplastic syndrome, unspecified (HCC); Anemia, unspecified type Start: 08-20-2023 End: 08-20-2023 ambulatory [facility] Facility[facility] Start: 08-02-2023 End: 08-02-2023 ambulatory Treatment Room [facility] 1 INFUSION Comment on above: 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); Myelodysplastic syndrome, unspecified (HCC); Anemia, unspecified type Start: 08-01-2023 End: 08-01-2023 ambulatory Alka Noriega MD Work Phone: [facility] Hematology/Oncology Comment on above: Myelodysplastic synd aric, unspecified (HCC) (Primary Dx) Start: 08-01-2023 End: 08-01-2023 Patient encounter procedure Alka Noriega MD Work Phone: [facility] Hematology/Oncology Start: 07-12-2023 Telephone encounter Alka Noriega MD Work Phone: INFUSION Comment on above: Patient Update; Resu lts Start: 07-12-2023 End: 07-12-2023 ambulatory Treatment Room [facility] 1 INFUSION Comment on above: 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); Anemia, unspecified type Start: 06-28-2023 End: 06-28-2023 Patient encounter procedure Rowena Parra APRN.CNP Work Phone: Neurology Comment on above: TIA (transient ische lula attack) (Primary Dx) Start: 06-21-2023 End: 06-21-2023 ambulatory Treatment Room [facility] 1 INFUSION Comment on above: 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) Start: 06-08-2023 End: 06-10-2023 ambulatory GERMAN ROBERTSON Facility:[facility] Start: 06-03-2023 End: 06-03-2023 ambulatory Alka Noriega MD Work Phone: [facility] Hematology/Oncology Comment on above: Myelodysplastic synd aric, unspecified (HCC) (Primary Dx); Anemia, unspecified type; Platelets decreased (HCC) Start: 06-03-2023 End: 06-03-2023 Patient encounter procedure Alka Noriega MD Work Phone: [facility] Hematology/Oncology Start: 05-30-2023 End: 05-30-2023 ambulatory Treatment Room [facility] 1 INFUSION Comment on above: Anemia, unspecified type (Primary Dx); Cancer of unknown origin (HCC) Start: 05-10-2023 End: 05-10-2023 ambulatory Treatment Room [facility] 1 INFUSION Comment on above: Anemia, unspecified type (Primary Dx); Cancer of unknown origin (HCC) Start: 04-19-2023 End: 04-19-2023 ambulatory Treatment Room [facility] 1 INFUSION Comment on above: 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) Start: 04-08-2023 End: 04-08-2023 ambulatory Alka Noriega MD Work Phone: [facility] Hematology/Oncology Comment on above: Myelodysplastic synd aric, unspecified (HCC) (Primary Dx); Platelets decreased (HCC); Anemia, unspecified type Start: 04-08-2023 End: 04-08-2023 Patient encounter procedure Alka Noriega MD Work Phone: [facility] Hematology/Oncology Start: 03-29-2023 End: 03-29-2023 ambulatory Chair 5 [facility] Work Phone: Hematology/Oncology Comment on above: Anemia, unspecified type (Primary Dx); Cancer of unknown origin (HCC) Start: 03-05-2023 End: 03-05-2023 ambulatory Alka Noriega MD Work Phone: [facility] Hematology/Oncology Comment on above: Myelodysplastic synd aric, unspecified (HCC) (Primary Dx); Anemia, unspecified type Start: 03-05-2023 End: 03-05-2023 Patient encounter procedure Alka Noriega MD Work Phone: [facility] Hematology/Oncology Start: 02-12-2023 End: 11-15-2023 ambulatory Fabiola Agarwal CAR SALESMAN Comment on above: Anemia, unspecified type (Primary Dx) Start: 01-11-2023 End: 11-15-2023 ambulatory Fabiola Agarwal CAR SALESMAN Start: 01-02-2023 ambulatory Radha Kelly RN [facility] Start: 01-02-2023 Patient encounter procedure Radha Kelly RN [facility] Start: 12-29-2022 [facility] Start: 12-29-2022 [facility] Start: 12-11-2022 End: 12-11-2022 ambulatory Alka Noriega MD Work Phone: [facility] Hematology/Oncology Comment on above: Anemia, unspecified type (Primary Dx); Clonal cytopenia of undetermined significance (CCUS) Start: 12-11-2022 End: 12-11-2022 Patient encounter procedure Alka Noriega MD Work Phone: [facility] Hematology/Oncology Start: 11-29-2022 End: 11-29-2022 ambulatory Treatment Room [facility] 2 INFUSION Comment on above: Anemia, unspecified type (Primary Dx) Start: 11-16-2022 End: 11-16-2022 ambulatory Alka Noriega MD Work Phone: [facility] Hematology/Oncology Comment on above: Anemia, unspecified type (Primary Dx); Clonal cytopenia of undetermined significance (CCUS) Start: 11-16-2022 End: 11-16-2022 Patient encounter procedure Alka Noriega MD Work Phone: [facility] Hematology/Oncology Start: 10-31-2022 End: 10-31-2022 ambulatory Treatment Room [facility] 3 INFUSION Comment on above: Anemia, unspecified type (Primary Dx) Start: 10-30-2022 Telephone encounter Akosua Prieto RN Work Phone: INFUSION Comment on above: Transfusion Start: 10-11-2022 End: 10-11-2022 ambulatory Alka Noriega MD Work Phone: [facility] Hematology/Oncology Comment on above: 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); Anemia, unspecified type; Clonal cytopenia of undetermined significance (CCUS) Start: 10-11-2022 End: 10-11-2022 Patient encounter procedure Alka Noriega MD Work Phone: [facility] Hematology/Oncology Start: 09-12-2022 End: 09-12-2022 ambulatory Chair 7 [facility] Work Phone: Hematology/Oncology Comment on above: Anemia, unspecified type (Primary Dx) Start: 09-11-2022 End: 09-11-2022 ambulatory Owen Ac APRN.ECHOCARDIOLOGIST Work Phone: [facility] Hematology/Oncology Comment on above: Anemia, unspecified type (Primary Dx) Start: 09-11-2022 End: 09-11-2022 Patient encounter procedure Owen Ac APRN.ECHOCARDIOLOGIST Work Phone: [facility] Start: 07-31-2022 End: 07-31-[address] German Robertson Work Phone: [facility] Endocrinology Start: 07-26-2022 End: 07-26-[address] German Robertson Work Phone: [facility] Work Phone: Start: 07-26-2022 End: 07-26-[address] German Robertson Work Phone: [facility]-Laboratory Start: 07-03-2022 End: 07-03-2022 ambulatory Alka Noriega MD Work Phone: [facility] Hematology/Oncology Comment on above: Anemia, unspecified type (Primary Dx); Clonal cytopenia of undetermined significance (CCUS); Platelets decreased (HCC) Start: 07-03-2022 End: 07-03-2022 Patient encounter procedure Alka Noriega MD Work Phone: [facility] Hematology/Oncology Start: 06-14-2022 Non-patient / Non-visit Dr. Clayton Baker Work Phone: [facility] Start: 06-14-2022 End: 06-14-[address] German Robertson Work Phone: [facility] Work Phone: Start: 06-14-2022 End: 06-14-[address] German Robertson Work Phone: [facility]-Cardiovascular Services Start: 06-01-2022 End: 06-01-2022 Subsequent hospital visit by physician Teddy Terrazas MD Work Phone: [facility] RADIOLOG[facility] Comment on above: Anemia, unspecified type [D64.9] Start: 05-22-2022 End: 05-22-[address] German Robertson Work Phone: [facility] Work Phone: Start: 05-22-2022 End: 05-22-[address] German Robertson Work Phone: [facility]-Radiology, [facility] Start: 04-13-2022 End: 04-13-[address] German Robertson Work Phone: [facility] Endocrinology Start: 11-24-2021 End: 11-24-2021 Subsequent hospital visit by physician [facility] Comment on above: Liver disease, unspe cified [K76.9] Start: 09-07-2021 Non-patient / Non-visit Dr. Clayton Baker Work Phone: [facility] Start: 09-07-2021 End: 09-07-2021 Admission to same day surgery center Dr. German Robertson Work Phone: [facility]-Endoscopy Start: 07-28-2021 End: 07-28-[address] German Robertson Work Phone: [facility] Gastroenterology Start: 06-11-2017 Ambulatory Carlos carter Mendpara Facility:[facility] [place] Start: 01-25-2017 Ambulatory Carlos carter Mendpara Facility:[facility] [place] Start: 01-02-2017 Ambulatory YORodolfo BOOKERALEX Fac ility:[facility] Start: 11-19-2016 End: 11-20-[address] Facility:[facility] Start: 10-31-2016 End: 11-01-[address] Facility:[facility] Start: 10-22-2016 End: 10-23-[address] Facility:[facility] Start: 08-31-2016 End: 09-10-2016 Evaluation and management of inpatient NO REFERRING DR Facility:[facility] Procedures Date Procedure Procedure Detail Performing Clinician Start: 08-04-2024 Antibody screen GERMAN ROBERTSON Comment on above: Order Comment: Specimen Type: BLOOD SPEC IMENOrdering Facility: [facility] Address: [address] [place] [address] Performed By: #### T SCR ####[facility] BLOOD BANKCLIA [id number] [address] Start: 07-29-2024 End: 07-29-2024 RBC TRANSFUSION INSTRUCTION ([place], [place]) Alka Noriega MD Work Phone: Start: 07-28-2024 Antibody screen GERMAN ROBERTSON Comment on above: Order Comment: Specimen Type: BLOOD SPEC IMENOrdering Facility: [facility] Address: [address] [place] [address] Performed By: #### T SCR ####[facility] BLOOD BANKCLIA [id number] [address] Start: 07-24-2024 History of cholecystectomy History of cholecystectomy Sabas Vargas MD Work Phone: Start: 07-24-2024 Comprehensive metabolic panel Sabas You MD Work Phone: Start: 07-24-2024 IMMUNOFIXATION ELECTROPHORESIS Sabas You MD Work Phone: Start: 07-24-2024 SERUM ELECTROPHORESIS Sabas You MD Work Phone: Start: 07-23-2024 Antibody screen GERMAN ROBERTSON Comment on above: Order Comment: Specimen Type: BLOOD SPEC IMENOrdering Facility: [facility] Address: [address] [place] [address] Performed By: #### T SCR ####[facility] BLOOD BANKCLIA [id number] [address] Start: 07-21-2024 End: 07-21-2024 Diagnostic bone marrow biopsies & aspirations [facility] Provider Start: 07-21-2024 Blood count complete auto&auto difrntl wbc Rodrigo Magana MD Work Phone: Start: 07-16-2024 Antibody screen GERMAN ROBERTSON Comment on above: Order Comment: Specimen Type: BLOOD SPEC IMENOrdering Facility: [facility] Address: [address] [place] [address] Performed By: #### T SCR ####[facility] BLOOD BANKCLIA [id number] [address] Start: 07-09-2024 Antibody screen GERMAN ROBERTSON Comment on above: Order Comment: Specimen Type: BLOOD SPEC IMENOrdering Facility: [facility] Address: [address] [place] [address] Performed By: #### T SCR ####[facility] BLOOD BANKCLIA [id number] [address] Start: 07-03-2024 End: 07-03-2024 RBC TRANSFUSION INSTRUCTION ([place], [place]) Alka Noriega MD Work Phone: Start: 06-30-2024 Antibody screen GERMAN ROBERTSON Comment on above: Order Comment: Specimen Type: BLOOD SPEC IMENOrdering Facility: [facility] Address: [address] [place] [address] Performed By: #### T SCR ####[facility] BLOOD BANKCLIA [id number] [address] Start: 06-30-2024 Antibody screen rbc each serum technique Alka Noriega MD Work Phone: Start: 06-30-2024 Blood count complete auto&auto difrntl wbc Alka Noriega MD Work Phone: Start: 06-29-2024 RED BLOOD CELLS, ADULT Alka Noriega MD Work Phone: Start: 06-17-2024 Antibody screen GERMAN ROBERTSON Comment on above: Order Comment: Specimen Type: BLOOD SPEC IMENOrdering Facility: [facility] Address: [address] [place] [address] Performed By: #### T SCR ####[facility] BLOOD BANKCLIA [id number] [address] Start: 06-04-2024 Antibody screen GERMAN ROBERTSON Comment on above: Order Comment: Specimen Type: BLOOD SPEC IMENOrdering Facility: [facility] Address: [address] [place] [address] Performed By: #### T SCR ####[facility] BLOOD BANKCLIA [id number] [address] Start: 06-02-2024 Antibody screen GERMAN ROBERTSON Comment on above: Order Comment: Specimen Type: BLOOD SPEC IMENOrdering Facility: [facility] Address: [address] [place] [address] Performed By: #### T SCR ####[facility] BLOOD BANKCLIA [id number] [address] Start: 06-02-2024 Antibody screen rbc each serum technique Alka Noriega MD Work Phone: Start: 06-02-2024 Blood count complete auto&auto difrntl wbc Alka Noriega MD Work Phone: Start: 05-26-2024 End: 05-26-2024 RBC TRANSFUSION INSTRUCTION ([place], [place]) Alka Noriega MD Work Phone: Start: 05-26-2024 End: 05-26-2024 RBC TRANSFUSION INSTRUCTION ([place], [place]) Alka Noriega MD Work Phone: Start: 05-25-2024 Antibody screen GERMAN ROBERTSON Comment on above: Order Comment: Specimen Type: BLOOD SPEC IMENOrdering Facility: [facility] Address: [address] [place] [address] Performed By: #### T SCR ####[facility] BLOOD BANKCLIA [id number] [address] Start: 05-20-2024 Antibody screen GERMAN ROBERTSON Comment on above: Order Comment: Specimen Type: BLOOD SPEC IMENOrdering Facility: [facility] Address: [address] [place] [address] Performed By: #### T SCR ####[facility] BLOOD BANKCLIA [id number] [address] Start: 05-05-2024 Antibody screen GERMAN ROBERTSON Comment on above: Order Comment: Specimen Type: BLOOD SPEC IMENOrdering Facility: [facility] Address: [address] [place] [address] Performed By: #### T SCR ####[facility] BLOOD BANKCLIA [id number] [address] Start: 05-05-2024 Antibody screen rbc each serum technique Alka Noriega MD Work Phone: Start: 05-05-2024 Blood count complete auto&auto difrntl wbc Alka Noriega MD Work Phone: Start: 05-04-2024 RED BLOOD CELLS, ADULT Alka Noriega MD Work Phone: Start: 04-27-2024 Antibody screen GERMAN ROBERTSON Comment on above: Order Comment: Specimen Type: BLOOD SPEC IMENOrdering Facility: [facility] Address: [address] [place] [address] Performed By: #### T SCR ####[facility] BLOOD BANKCLIA [id number] [address] Start: 04-15-2024 Antibody screen GERMAN ROBERTSON Comment on above: Order Comment: Specimen Type: BLOOD SPEC IMENOrdering Facility: [facility] Address: [address] [place] [address] Performed By: #### T SCR ####[facility] BLOOD BANKCLIA [id number] [address] Start: 04-14-2024 Blood count complete auto&auto difrntl wbc Alka Noriega MD Work Phone: Start: 04-07-2024 Blood count complete auto&auto difrntl wbc Alka Noriega MD Work Phone: Start: 03-24-2024 End: 03-24-2024 RBC TRANSFUSION INSTRUCTION ([place], [place]) Alka Noriega MD Work Phone: Start: 03-24-2024 Antibody screen GERMAN ROBERTSON Comment on above: Order Comment: Specimen Type: BLOOD SPEC IMENOrdering Facility: [facility] Address: [address] [place] [address] Performed By: #### T SCR ####[facility] BLOOD BANKCLIA [id number] [address] Start: 03-23-2024 RED BLOOD CELLS, ADULT Alka Noriega MD Work Phone: Start: 03-11-2024 Antibody screen GERMAN ROBERTSON Comment on above: Order Comment: Specimen Type: BLOOD SPEC IMENOrdering Facility: [facility] Address: [address] [place] [address] Performed By: #### T SCR ####[facility] BLOOD BANKCLIA [id number] [place] [address] [facility] Start: 03-05-2024 Antibody screen GERMAN ROBERTSON Comment on above: Order Comment: Specimen Type: BLOOD SPEC IMENOrdering Facility: [facility] Address: [address] [place] [address] Performed By: #### T SCR ####[facility] BLOOD BANKCLIA [id number] [place] [address] [facility] Start: 03-05-2024 Electrocardiogram GERMAN ROBERTSON Start: 02-12-2024 End: 02-12-2024 RBC TRANSFUSION INSTRUCTION ([place], [place]) Alka Noriega MD Work Phone: Start: 02-11-2024 Antibody screen GERMAN ROBERTSON Comment on above: Order Comment: Specimen Type: BLOOD SPEC IMENOrdering Facility: [facility] Address: [address] [place] [address] Performed By: #### T SCR ####[facility] BLOOD BANKCLIA [id number] [place], [place] [id number] [place] [address] Start: 02-07-2024 End: 02-07-2024 RBC TRANSFUSION INSTRUCTION ([place], [place]) Alka Noriega MD Work Phone: Start: 02-07-2024 Antibody screen GERMAN ROBERTSON Comment on above: Order Comment: Specimen Type: BLOOD SPEC IMENOrdering Facility: [facility] Address: [address] [place] [address] Performed By: #### T SCR ####[facility] BLOOD BANKCLIA [id number] [address] Start: 02-07-2024 Antibody screen rbc each serum technique Alka Noriega MD Work Phone: Start: 02-07-2024 Blood count complete auto&auto difrntl wbc Alka Noriega MD Work Phone: Start: 02-06-2024 RED BLOOD CELLS, ADULT Alka Noriega MD Work Phone: Start: 01-30-2024 End: 01-30-2024 RBC TRANSFUSION INSTRUCTION ([place], [place]) Alka Noriega MD Work Phone: Start: 01-28-2024 Antibody screen GERMAN ROBERTSON Comment on above: Order Comment: Specimen Type: BLOOD SPEC IMENOrdering Facility: [facility] Address: [address] [place] [address] Performed By: #### T SCR ####[facility] BLOOD BANKCLIA [id number] [address] Start: 01-10-2024 Antibody screen GERMAN ROBERTSON Comment on above: Order Comment: Specimen Type: BLOOD SPEC IMENOrdering Facility: [facility] Address: [address] [place] [address] Performed By: #### T SCR ####[facility] BLOOD BANKCLIA [id number] [address] Start: 01-10-2024 Antibody screen rbc each serum technique Alka Noriega MD Work Phone: Start: 01-10-2024 Bilirubin direct Owen Ac APRN.ECHOCARDIOLOGIST Work Phone: Start: 12-10-2023 Antibody screen GERMAN ROBERTSON Comment on above: Order Comment: Specimen Type: BLOOD SPEC IMENOrdering Facility: [facility] Address: [address] [place] [address] Performed By: #### T SCR ####[facility] BLOOD BANKCLIA [id number] [address] Start: 11-19-2023 Antibody screen GERMAN ROBERTSON Comment on above: Order Comment: Specimen Type: BLOOD SPEC IMENOrdering Facility: [facility] Address: [address] [place] [address] Performed By: #### T SCR ####[facility] BLOOD BANKCLIA [id number] [address] Start: 11-19-2023 Antibody screen rbc each serum technique Alka Noriega MD Work Phone: Start: 11-19-2023 Blood count complete auto&auto difrntl wbc Alka Noriega MD Work Phone: Start: 11-06-2023 Antibody screen GERMAN ROBERTSON Comment on above: Order Comment: Specimen Type: BLOOD SPEC IMENOrdering Facility: [facility] Address: [address] [place] [address] Performed By: #### T SCR ####[facility] BLOOD BANKCLIA [id number] [address] Start: 10-29-2023 Antibody screen GERMAN ROBERTSON Comment on above: Order Comment: Specimen Type: BLOOD SPEC IMENOrdering Facility: [facility] Address: [address] [place] [address] Performed By: #### T SCR ####[facility] BLOOD BANKCLIA [id number] [address] Start: 10-29-2023 Antibody screen rbc each serum technique Alka Noriega MD Work Phone: Start: 10-29-2023 Blood count complete auto&auto difrntl wbc Alka Noriega MD Work Phone: Start: 10-03-2023 Antibody screen GERMAN ROBERTSON Comment on above: Order Comment: Specimen Type: BLOOD SPEC IMENOrdering Facility: [facility] Address: [address] [place] [address] Performed By: #### T SCR ####[facility] BLOOD BANKCLIA [id number] [address] Start: 09-17-2023 Antibody screen GERMAN ROBERTSON Comment on above: Order Comment: Specimen Type: BLOOD SPEC IMENOrdering Facility: [facility] Address: [address] [place] [address] Performed By: #### T SCR ####[facility] BLOOD BANKCLIA [id number] [place] [address] [facility] Start: 09-13-2023 Blood count complete auto&auto difrntl wbc Owen Asha Whitleyim STORAGE BATTERY INSPECTOR.ECHOCARDIOLOGIST Work Phone: Start: 08-23-2023 Antibody screen GERMAN ROBERTSON Comment on above: Order Comment: Specimen Type: BLOOD SPEC IMENOrdering Facility: [facility] Address: [address] [place] [address] Performed By: #### T SCR ####[facility] BLOOD BANKCLIA [id number] [address] Start: 08-23-2023 Antibody screen rbc each serum technique Owen Ac STORAGE BATTERY INSPECTOR.ECHOCARDIOLOGIST Work Phone: Start: 08-23-2023 Blood count complete auto&auto difrntl wbc Owen Asha Yashira STORAGE BATTERY INSPECTOR.ECHOCARDIOLOGIST Work Phone: Start: 08-02-2023 Blood count complete auto&auto difrntl wbc Owen Whitleyim STORAGE BATTERY INSPECTOR.ECHOCARDIOLOGIST Work Phone: Start: 07-12-2023 Antibody screen rbc each serum technique Owen Ac STORAGE BATTERY INSPECTOR.ECHOCARDIOLOGIST Work Phone: Start: 07-12-2023 Blood count complete auto&auto difrntl wbc Owen Whitleynaveen CONNORSN.ECHOCARDIOLOGIST Work Phone: Start: 05-30-2023 Antibody screen rbc each serum technique Owen Ac STORAGE BATTERY INSPECTOR.ECHOCARDIOLOGIST Work Phone: Start: 05-30-2023 Blood count complete auto&auto difrntl wbc Owen Asha Yashira STORAGE BATTERY INSPECTOR.ECHOCARDIOLOGIST Work Phone: Start: 05-10-2023 Antibody screen rbc each serum technique Alka Noriega MD Work Phone: Start: 05-10-2023 Blood count complete auto&auto difrntl wbc Alka Noriega MD Work Phone: Start: 03-29-2023 Blood count complete auto&auto difrntl wbc Owen Ac STORAGE BATTERY INSPECTOR.ECHOCARDIOLOGIST Work Phone: Start: 02-12-2023 Compatibility each unit electronic Alka Noriega MD Work Phone: Start: 11-29-2022 End: 11-29-2022 RBC TRANSFUSION INSTRUCTION ([place]) Owen Ac STORAGE BATTERY INSPECTOR.ECHOCARDIOLOGIST Work Phone: Start: 10-30-2022 Compatibility each unit electronic Akosua Rios RN Work Phone: Start: 09-11-2022 Compatibility each unit electronic Alka Noriega MD Work Phone: Start: 06-14-2022 Radionuclide imaging of perfusion of myocardium under exercise stress Dr. German Robertson Work Phone: Start: 06-01-2022 Diagnostic bone marrow biopsies & aspirations Alka Noriega MD Work Phone: Start: 06-01-2022 FLOW CYTOMETRY BONE MARROW HOLD (BMHOLD) Alka Noriega MD Work Phone: Start: 06-01-2022 Blood count complete automated Teddy Terrazas MD Work Phone: Start: 05-22-2022 Plain chest X-ray Dr. German Robertson Work Phone: Start: 11-24-2021 Us abdominal real time w/image limited German Robertson Work Phone: Start: 09-07-[address] German Robertson Work Phone: Start: 09-06-2016 INSRT INFUS DEVC SUP DONA PROVIDER UNKNOW N Start: 09-03-2016 EXC LUMBAR VERTEBRAL DIS PROVIDER UNKNOW N Start: 09-03-2016 EXCISION LUMBAR VERTEBRA PROVIDER UNKNOW N History of cholecystectomy Histo ry of cholecystectomy Dr. German Robertson Work Phone: History of repair of musculotendinous cuff of shoulder History of rotator cuff surgery Dr. German Robertson Work Phone: Plan of Treatment Date Care Activity Detail Author Start: 07-24-2025 Diabetes: Estimated Glomerular Filtration Rate for Kidney Health Diabetes: Estimated Glomerular Filtration Rate for Kidney Health [facility] Start: 06-07-2025 Diabetes: Estimated Glomerular Filtration Rate for Kidney Health Diabetes: Estimated Glomerular Filtration Rate for Kidney Health [facility] Start: 10-26-2024 Influenza vaccination Influenz a Vaccine (Season Ended) [facility] Start: 09-22-2024 End: 09-22-2024 ambulatory 09/22/2024 11:30 AM EDT [facility] [address] [place] [address] ryte Hematology/Oncology Comment on above: rytelo Start: 09-01-2024 End: 09-01-2024 ambulatory 09/01/2024 1:30 PM EDT [facility]fusion [facility] Hematology[facility]Oncology [address] [place] [address] Reblozenio Hematology/Oncology Comment on above: Florlomikalyl Start: 08-25-2024 End: 08-25-2024 ambulatory 08/25/2024 11:30 AM EDT [facility]fusion [facility] Hematology/Oncology [address] [place] [address] rytelo Hematology/Oncology Comment on above: rytelo Start: 08-12-2024 End: 08-12-2024 ambulatory 08/12/2024 12:30 PM EDT [facility]fusion [facility] [address] [facility] [place] [address] RBC, anemia, Garcia, EMBER INFUSION Comment on above: RBC, anemia, Garcia, K C Start: 08-11-2024 End: 08-11-2024 ambulatory 08/11/2024 1:30 PM EDT Infusion Center Hematology/Oncology [address] [place] [address] Reblozyl Hematology/Oncology Comment on above: Florlozyl Start: 08-10-2024 End: 08-10-2024 Patient encounter procedure 08/10/2024 12:00 PM EDT Office Visit [facility] Hematology and Medical Oncology - [address] [place] [address] Sabas You MD [address] [facility] [address] [place] [address] [facility] Hematology and Medical Oncology - IrajKhari Start: 08-06-2024 End: 08-06-2024 ambulatory 08/06/2024 1:30 PM EDT Infusion Center INFUSION [address] [place] [address] RBC's, anemia, Garcia, EMBER INFUSION Comment on above: RBC's, anemia, Garcia, EMBER Start: 08-05-2024 End: 08-05-2024 ambulatory 08/05/2024 11:00 AM EDT Visit (SP) Office [facility] [address] [place] [address] Garcia-Alka Cruz MD [address] [phone] Bone marrow results [facility] Hematology/Oncology Comment on above: Bone marrow results Start: 07-28-2024 End: 07-28-2024 ambulatory 07/28/2024 11:30 AM EDT Infusion Center Hematology/Oncology [address] [place] [address] rytemicheal Hematology/Oncology Comment on above: rytemicheal Start: 07-24-2024 End: 07-24-2025 Immunofixation Electrophoresis [facility] Work Phone: Comment on above: Expected: 07/24/2024 (Approximate), Expires: 07/24/2025 Start: 07-24-2024 End: 07-24-2024 ambulatory 07/24/2024 1:30 PM EDT Infusion Center INFUSION [address] [place] [address] RBC, anemia, Garcia. EMBER INFUSION Comment on above: RBC, anemia, Garcia. K C Start: 07-22-2024 End: 07-22-2024 ambulatory 07/22/2024 2:30 PM EDT Infusion Center Hematology/Oncology [address] [place] [address] Reblorajinder Hematology/Oncology Comment on above: Reblozyl Start: 07-17-2024 End: 07-17-2024 ambulatory 07/17/2024 12:00 PM EDT Infusion Center INFUSION [address] [place] [address] RBC, anemia, Garcia. EMBER INFUSION Comment on above: RBC, anemia, Garcia. K C Start: 07-15-2024 End: 07-15-2024 Patient encounter procedure 07/15/2024 9:40 AM EDT Office Visit [facility] [address] [address] Tracy Farfan PA-C [address] [place] [address] Back pain [facility] Comment on above: Back pain Start: 07-10-2024 End: 07-10-2024 ambulatory 07/10/2024 1:00 PM EDT Infusion Center INFUSION [address] [place] [address] RBC, anemia, Garcia. EMBER INFUSION Comment on above: RBC, anemia, Garcia. K C Start: 07-03-2024 End: 07-30-2025 Guidance for biopsy of Bone marrow IMAGING GUIDED BONE MARROW BIOPSY AND ASPIRATION (CIARAN)(ME NO AV,[facility]) Radiology Routine Myelodysplastic syndrome, unspecified (HCC) Clonal cytopenia of undetermined significance (CCUS) Expected: 07/03/2024, Expires: 07/30/2025 [facility] Work Phone: Comment on above: Expected: 07/03/2024 , Expires: 07/30/2025 Start: 07-03-2024 End: 07-03-2024 ambulatory 07/03/2024 1:00 PM EDT Infusion Center INFUSION [address] [place] [address] RBC, anemia, Garcia. EMBER INFUSION Comment on above: RBC, anemia, Garcia. K C Start: 06-30-2024 End: 06-30-2024 ambulatory 06/30/2024 11:30 AM EDT Infusion Center Hematology/Oncology [address] [place] [address] rytemicheal Hematology/Oncology Comment on above: rytelo Start: 06-24-2024 End: 06-24-2024 Patient encounter procedure 06/24/2024 9:45 AM EDT Office Visit [facility] [address] [place] [phone] Sabas You MD [address] [place] [address] [facility] Start: 06-17-2024 End: 06-17-2024 ambulatory 06/17/2024 12:00 PM EDT Infusion Center INFUSION [address] [place] [address] Reblozyl, anemia, Garcia, EMBER INFUSION Comment on above: Reblozyl, anemia, Phil carrera, EMBER Start: 06-12-2024 DIABETES SCREEN DIABETES SCREEN [facility] Start: 06-07-2024 Hepatitis B surface antibody level LDL Cholesterol [facility] Start: 06-02-2024 End: 06-02-2024 ambulatory 06/02/2024 11:30 AM EDT Infusion Center Hematology/Oncology [address] [place] [address] rytelo Hematology/Oncology Comment on above: rytelo Start: 2024 End: 2024 ambulatory 2024 1:00 PM EDT Infusion Center INFUSION [address] [place] [address] Reblozyl, anemia, Garcia, EMBER INFUSION Comment on above: Reblozyl, anemia, Ma tt, EMBER Start: 05-06-2024 End: 05-06-2024 ambulatory 05/06/2024 12:00 PM EDT Infusion Center INFUSION [address] [place] [address] RBC's, anemia, EMBER INFUSION Comment on above: RBC's, anemia, EMBER Start: 05-05-2024 End: 05-05-2024 ambulatory INFUSION Comment on above: labs/Reblozyl, anemi a, Garcia, EMBER rytelo 1:30 Start: 05-05-2024 End: 05-05-2024 ambulatory 05/05/2024 11:30 AM EDT Infusion [facility] Hematology/Oncology [address] [place] [address] [facility]te Hematology/Oncology Comment on above: rytelo Start: 04-16-2024 End: 04-16-2024 ambulatory 04/16/2024 1:00 PM EST Infusion Center INFUSION [address] [place] [address] Transfusion, Garcia, EMBER INFUSION Comment on above: Transfusion, Garcia, K C Start: 04-14-2024 End: 04-14-2024 ambulatory 04/14/2024 1:30 PM EST Infusion Center INFUSION [address] [place] [address] labs/Reblozyl, anemia, Garcia, EMBER INFUSION Comment on above: labs/Reblozyl, anemi a, Garcia, EMBER Start: 04-07-2024 End: 04-07-2024 ambulatory 04/07/2024 12:00 PM EST Infusion [facility] Hematology/Oncology [address] [place] [address] ryte Hematology/Oncology Comment on above: rytelo Start: 03-25-2024 End: 03-25-2024 ambulatory 03/25/2024 1:00 PM EST Infusion Center INFUSION [address] [place] [address] RBC, anemia, Garcia, EMBER INFUSION Comment on above: RBC, anemia, Garcia, K C Start: 03-13-2024 End: 03-13-2024 ambulatory 03/13/2024 2:45 PM EST Visit (SP) Office [facility] [address] [place] [address] Alka Noriega MD [address] [phone] ov with labs [facility] Comment on above: ov with labs Start: 03-06-2024 End: 03-06-2024 ambulatory 03/06/2024 9:30 AM EST [facility]fusion [facility] Hematology[facility]Oncology [address] [place] [address] R[facility] Hematology/Oncology Comment on above: RYTELO Start: 02-26-2024 Advance Directive Discussion Advance Directive Discussion [facility] Start: 02-26-2024 Medicare Advantage A nnual Wellness Visit Medicare Advantage Annual Wellness Visit [facility] Start: 02-12-2024 End: 02-12-2024 ambulatory INFUSION Comment on above: RBC's. anemia, Garcia, EMBER 1 unit Start: 02-07-2024 End: 02-07-2024 ambulatory 02/07/2024 9:30 AM EST [facility]fusion [facility] Hematology/Oncology [address] [place] [address] RYTELO Hematology/Oncology Comment on above: RYTELO Start: 01-10-2024 End: 01-10-2024 ambulatory 01/10/2024 9:30 AM EST Infusion Center Hematology/Oncology [address] [place] [address] TUBE CLEANER [facility] Hematology/Oncology Comment on above: TUBE CLEANER GAVINTEMICHEAL Start: 12-31-2023 End: 12-31-2023 ambulatory 12/31/2023 9:30 AM EST [facility]fusion [facility] Hematology/Oncology [address] [place] [address] TUBE CLEANER [facility] Hematology/Oncology Comment on above: TUBE CLEANER AN Start: 12-24-2023 End: 03-24-2024 Basic metabolic 2000 panel - Serum or Plasma BASIC METABOLIC PANEL Lab Routine Myelodysplastic syndrome, unspecified (HCC) Expected: 12/24/2023, Expires: 03/24/2024 [facility] Comment on above: Expected: 12/24/2023 , Expires: 03/24/2024 Start: 12-24-2023 End: 03-24-2024 CBC W Auto Differential panel - Blood COMPLETE BLOOD COUNT AND DIFFERENTIAL Lab STAT Myelodysplastic syndrome, unspecified (HCC) Expected: 12/24/2023, Expires: 03/24/2024 [facility] Work Phone: Comment on above: Expected: 12/24/2023 , Expires: 03/24/2024 Start: 12-24-2023 End: 03-24-2024 Ferritin [Mass/volume] in Serum or Plasma FERRITIN Lab Routine Myelodysplastic syndrome, unspecified (HCC) Expected: 12/24/2023, Expires: 03/24/2024 [facility] Comment on above: Expected: 12/24/2023 , Expires: 03/24/2024 Start: 12-24-2023 End: 03-24-2024 Hepatic function 2000 panel - Serum or Plasma HEPATIC FUNCTION PNL Lab Routine Myelodysplastic syndrome, unspecified (HCC) Expected: 12/24/2023, Expires: 03/24/2024 [facility] Work Phone: Comment on above: Expected: 12/24/2023 , Expires: 03/24/2024 Start: 12-24-2023 End: 03-24-2024 Iron and Iron binding capacity panel - Serum or Plasma IRON AND TIBC Lab Routine Myelodysplastic syndrome, unspecified (HCC) Expected: 12/24/2023, Expires: 03/24/2024 [facility] Comment on above: Expected: 12/24/2023 , Expires: 03/24/2024 Start: 12-10-2023 End: 12-10-2023 ambulatory 12/10/2023 1:30 PM EDT Infusion Center INFUSION [address] [place] [address] Reblozyl/labs, anemia, Garcia, EMBER INFUSION Comment on above: Reblozyl/labs, anemi a, Garcia, EMBER Start: 11-28-2023 End: 11-28-2023 ambulatory 11/28/2023 2:45 PM EDT Visit (SP) Office [facility] [address] [place] [address] Garcia-Alka Cruz MD [address] [phone] 8 WK OV + LABS [facility] Comment on above: 8 WK OV + LABS Start: 11-20-2023 End: 11-20-2023 ambulatory 11/20/2023 1:30 PM EDT Infusion Center INFUSION [address] [place] [address] RBC's, anemia, Garcia, EMBER INFUSION Comment on above: RBC's, anemia, Garcia, EMBER Start: 11-19-2023 End: 11-19-2023 ambulatory 11/19/2023 1:00 PM EDT Infusion Center INFUSION [address] [place] [address] labs/Reblozyl, anemia, Garcia, EMBER INFUSION Comment on above: labs/Reblozyl, anemi a, Garcia, EMBER Start: 10-29-2023 End: 10-29-2023 ambulatory 10/29/2023 2:00 PM EDT Infusion Center INFUSION [address] [place] [address] Reblozyl, anemia, Garcia, EMBER INFUSION Comment on above: Reblozyl, anemia, Ma tt, EMBER Start: 10-27-2023 Covid-19 Vaccine ( season) Covid-19 Vaccine ( season) [facility] Start: 10-27-2023 Covid-19 Vaccine ( season) Covid-19 Vaccine ( season) [facility] Start: 10-27-2023 Influenza vaccination C [facility] Start: 10-03-2023 End: 10-03-2023 ambulatory [facility] Hematology/Oncology Comment on above: 2 month ov + labs Reblozyl, anemia, Ma tt, EMBER Start: 09-19-2023 End: 09-19-2023 Patient encounter procedure 09/19/2023 1:30 PM EDT Office Visit Neurology [address] [address] Rowena Parra APRN.ECHOCARDIOLOGIST [address] [place] [address] FU Neurology Comment on above: FU Start: 09-18-2023 End: 09-18-2023 ambulatory 09/18/2023 1:00 PM EDT Infusion Center INFUSION [address] [place] [address] RBC, anemia, Garcia- Anthony, EMBER INFUSION Comment on above: RBC, anemia, Garcia- A EMBER oneal Start: 09-13-2023 End: 09-13-2023 ambulatory 09/13/2023 2:00 PM EDT Infusion Center INFUSION [address] [place] [address] Reblozyl, anemia, Garcia, EMBER INFUSION Comment on above: Reblozyl, anemia, Ma tt, EMBER Start: 09-13-2023 End: 12-13-2023 TYPE + SCREEN TYPE + SCREEN Blood Bank Routine Myelodysplastic syndrome, unspecified (HCC) Expected: 09/13/2023, Expires: 12/13/2023 [facility] Work Phone: Comment on above: Expected: 09/13/2023 , Expires: 12/13/2023 Start: 09-08-2023 Hemoglobin A1c measurement HbA1C [facility] Start: 08-23-2023 End: 08-23-2023 ambulatory 08/23/2023 2:00 PM EDT Infusion Center INFUSION [address] [place] [address] Reblozyl, anemia, Garcia, EMBER INFUSION Comment on above: Reblozyl, anemia, Ma debi, EMBER Start: 08-02-2023 End: 08-02-2023 ambulatory 08/02/2023 2:00 PM EDT Infusion Center INFUSION [address] [place] [address] Reblozyl, anemia, Garcia-Anthony,EMBER INFUSION Comment on above: Reblozyl, anemia, Ma debi-Anthony,EMBER Start: 08-01-2023 End: 08-01-2023 ambulatory 08/01/2023 2:30 PM EDT Visit (SP) Office [facility] [address] [place] [address] Alka Noriega MD [address] [phone] 8 wk ov + labs [facility] Comment on above: 8 wk ov + labs Start: 07-12-2023 End: 07-12-2023 ambulatory 07/12/2023 2:30 PM EDT Infusion Center INFUSION [address] [place] [address] Reblozyl, anemia, Garcia-Anthony, EMBER INFUSION Comment on above: Reblozyl, anemia, Ma tt-Anthony, EMBER Start: 07-12-2023 End: 07-12-2023 ambulatory 07/12/2023 10:30 AM EDT Infusion Center INFUSION [address] [place] [address] Rebmichealzyl, anemia, Garcia-Anthony, EMBER INFUSION Comment on above: Reblozyl, anemia, Ma tt-Anthony, EMBER Start: 06-28-2023 End: 06-28-2023 Patient encounter procedure 06/28/2023 2:30 PM EDT Office Visit Neurology [address] [address] Rowena Parra, STORAGE BATTERY INSPECTOR.ECHOCARDIOLOGIST [address] [place] [address] T[facility] Neurology Comment on above: TIA Start: 02-25-2023 Advance Directive Discussion Advance Directive Discussion [facility] Start: 02-25-2023 Behavioral Health Screening Behavioral Health Screening [facility] Start: 02-25-2023 Depression Assessment Depression Ass essment [facility] Start: 12-16-2022 End: 02-15-2023 Erythropoietin (EPO) [Units/volume] in Serum or Plasma ERYTHROPOIETIN/EPO Lab Routine Anemia, unspecified type Clonal cytopenia of undetermined significance (CCUS) Expected: 12/16/2022, Expires: 02/15/2023 [facility] Comment on above: Expected: 12/16/2022 , Expires: 02/15/2023 Start: 12-16-2022 End: 02-15-2023 Ferritin [Mass/volume] in Serum or Plasma FERRITIN BLD Lab Routine Anemia, unspecified type Clonal cytopenia of undetermined significance (CCUS) Expected: 12/16/2022, Expires: 02/15/2023 [facility] Comment on above: Expected: 12/16/2022 , Expires: 02/15/2023 Start: 12-16-2022 End: 02-15-2023 Iron and Iron binding capacity panel - Serum or Plasma IRON + TIBC Lab Routine Anemia, unspecified type Clonal cytopenia of undetermined significance (CCUS) Expected: 12/16/2022, Expires: 02/15/2023 [facility] Work Phone: Comment on above: Expected: 12/16/2022 , Expires: 02/15/2023 Start: 10-26-2022 Covid-19 Vaccine ( season) Covid-19 Vaccine ( season) [facility] Start: 10-26-2022 [facility] Start: 02-25-2022 ADVANCE DIRECTIVE DISCUSSION ADVANCE DIRECTIVE DISCUSSION [facility] Start: 02-25-2022 DEPRESSION ASSESSMENT DEPRESSION ASS ESSMENT [facility] Start: 10-26-2021 Influenza vaccination INFLUENZA (#1) [facility] Start: 09-07-2021 Patient discharge [facility] Work Phone: Start: 06-25-2021 Hepatitis B surface antibody level LDL CHOLESTEROL [facility] Start: 02-25-2021 ADVANCE DIRECTIVE DISCUSSION ADVANCE DIRECTIVE DISCUSSION [facility] Start: 02-25-2021 DEPRESSION ASSESSMENT DEPRESSION ASS ESSMENT [facility] Start: 12-26-2020 Hemoglobin A1c measurement HbA1C [facility] Start: 12-26-2020 Hemoglobin A1c/Hemoglobin.total in Blood HBA1C [facility] Start: 07-21-2020 COVID-19 VACCINE (3 - Booster for Moderna series) COVID-19 VACCINE (3 - Booster for Moderna series) [facility] Start: 07-21-2020 COVID-19 VACCINE (3 - Moderna series) COVID-19 VACCINE (3 - Moderna series) [facility] Start: 05-26-2018 RSV Immunization for Adults (1 - 1-dose 75+ series) RSV Immunization for Adults (1 - 1-dose 75+ series) [facility] Start: 05-26-2018 RSV Vaccine (1 - 1-d ose 75+ series) RSV Vaccine (1 - 1-dose 75+ series) [facility] Start: 05-26-2008 PNEUMOCOCCAL: 65+ (1 - PCV) PNEUMOCOCCAL: 65+ (1 - PCV) [facility] Start: 2003 Hepatitis B Vaccine (1 of 3 - Risk 3-dose series) Hepatitis B Vaccine (1 of 3 - Risk 3-dose series) [facility] Start: 2003 RSV Vaccine (1 - 1-d ose 60+ series) RSV Vaccine (1 - 1-dose 60+ series) [facility] Start: 05-26-1993 Pneumococcal Vaccine : 50+ Years (1 of 1 - PCV) Pneumococcal Vaccine: 50+ Years (1 of 1 - PCV) [facility] Start: 05-26-1993 SHINGRIX VACCINE (1 of 2) MURPHY GRIX VACCINE (1 of 2) [facility] Start: 05-26-1993 Zoster Vaccines (1 of 2) Zoster Vacc slime (1 of 2) [facility] Start: 05-26-1962 DTaP/Tdap/Td Vaccine s (1 - Tdap) DTaP/Tdap/Td Vaccines (1 - Tdap) [facility] Start: 05-26-1962 Pneumococcal Vaccine : 50+ (1 of 2 - PCV) Pneumococcal Vaccine: 50+ (1 of 2 - PCV) [facility] Start: 05-26-1962 Pneumococcal Vaccine : 50+ Years (1 of 2 - PCV) Pneumococcal Vaccine: 50+ Years (1 of 2 - PCV) [facility] Start: 05-26-1962 Shingrix Vaccine (1 of 2) Murphy grix Vaccine (1 of 2) [facility] Start: 05-26-1962 Urine microalbumin profile [facility] Start: 05-26-1961 ANNUAL PCP TEAM CORRECTIONS OFFICER LEN DISEASE VISIT ANNUAL PCP TEAM CHRONIC DISEASE VISIT [facility] Start: 05-26-1961 Anxiety Screening Anxiety Screening [facility] Start: 05-26-1961 Depression Screening Depression Scre ing [facility] Start: 05-26-1961 Diabetes: Urine Albumin-Creatinine Ratio for Kidney Health Diabetes: Urine Albumin-Creatinine Ratio for Kidney Health [facility] Start: 05-26-1961 HEPATITIS C SCREENING HEPATITIS C SC REENING [facility] Start: 1955 Depression Screening Depression Scre ing [facility] Start: 05-26-1953 3 comp foot exam completed DIABETIC FOOT EXAM [facility] Start: 05-26-1953 Diabetic foot examination Diabetic F oot Exam [facility] Start: 05-26-1953 Glaucoma screening Dilated Retinal E xam [facility] Start: 05-26-1953 Hepatitis B screening URINE AL BUMIN:CREATININE RATIO [facility] Start: 05-26-1953 Hepatitis C antibody , confirmatory test DILATED RETINAL EXAM [facility] Start: 05-26-1949 Pneumococcal Vaccine : 65+ (1 - PCV) Pneumococcal Vaccine: 65+ (1 - PCV) [facility] Start: 05-26-1949 Pneumococcal Vaccine : 65+ (1 of 2 - PCV) Pneumococcal Vaccine: 65+ (1 of 2 - PCV) [facility] Start: 05-26-1949 PNEUMOCOCCAL: 65+ (1 - PCV) PNEUMOCOCCAL: 65+ (1 - PCV) [facility] BONE MARROW ANALYSIS BONE MARROW ANALYSIS Lab Routine Anemia, unspecified type 06/01/2022 10:34 AM EDT [facility] Work Phone: BONE MARROW ANALYSIS BONE MARROW ANALYSIS Lab Routine Myelodysplastic syndrome, unspecified (HCC) 07/21/2024 12:28 PM EDT [facility] BONE MARROW CHROMOSO ME ANAL BONE MARROW CHROMOSOME ANAL Lab Routine Anemia, unspecified type 06/01/2022 10:34 AM EDT [facility] Work Phone: BONE MARROW CHROMOSO ME ANAL BONE MARROW CHROMOSOME ANAL Lab Routine Myelodysplastic syndrome, unspecified (HCC) 07/21/2024 12:28 PM EDT [facility] End: 09-19-2023 CBC W Auto Differential panel - Blood CBC + DIFF Lab STAT Anemia, unspecified type 20 Occurrences starting 09/19/2022 until 09/19/2023 [facility] Work Phone: Comment on above: 20 Occurrences start ing 09/19/2022 until 09/19/2023 End: 10-02-2024 CBC W Auto Differential panel - Blood COMPLETE BLOOD COUNT AND DIFFERENTIAL Lab STAT Myelodysplastic syndrome, unspecified (HCC) Clonal cytopenia of undetermined significance (CCUS) Once per week for 52 Occurrences starting 10/03/2023 until 10/02/2024, 2 completed [facility] Work Phone: Comment on above: Once per week for 52 Occurrences starting 10/03/2023 until 10/02/2024, 2 completed End: 12-23-2024 CBC W Auto Differential panel - Blood COMPLETE BLOOD COUNT AND DIFFERENTIAL Lab STAT Myelodysplastic syndrome, unspecified (HCC) Once per month for 12 Occurrences starting 12/25/2023 until 12/23/2024, 1 completed [facility] Comment on above: Once per month for 1 2 Occurrences starting 12/25/2023 until 12/23/2024, 1 completed Colonoscopy [facility] Work Phone: End: 12-23-2024 Comprehensive metabolic 2000 panel - Serum or Plasma COMPREHENSIVE METABOLIC PANEL Lab STAT Myelodysplastic syndrome, unspecified (HCC) Once per month for 12 Occurrences starting 12/25/2023 until 12/23/2024, 1 completed [facility] Work Phone: Comment on above: Once per month for 1 2 Occurrences starting 12/25/2023 until 12/23/2024, 1 completed DNA EXTRACTION BONE MARROW (BUFFY COAT) DNA EXTRACTION BONE MARROW (BUFFY COAT) Lab Routine Anemia, unspecified type 06/01/2022 10:34 AM EDT [facility] Work Phone: DNA EXTRACTION BONE MARROW (BUFFY COAT) DNA EXTRACTION BONE MARROW (BUFFY COAT) Lab Routine Myelodysplastic syndrome, unspecified (HCC) 07/21/2024 12:28 PM T [facility] FLOW CYTOMETRY BONE MARROW REFLEX FLOW CYTOMETRY BONE MARROW REFLEX Lab Routine Anemia, unspecified type 06/01/2022 10:34 AM T [facility] Work Phone: FLOW CYTOMETRY FOR LEUKEMIA/LYMPHOMA (FCLL) FLOW CYTOMETRY FOR LEUKEMIA/LYMPHOMA (FCLL) Lab Routine Myelodysplastic syndrome, unspecified (HCC) 07/21/2024 12:28 PM EDT [facility] End: 07-21-2024 FLOW CYTOMETRY FOR LEUKEMIA/LYMPHOMA (FCLL) PERFORMABLE [facility] Work Phone: Comment on above: Once for 1 Occurrenc es starting 07/21/2024 until 07/21/2024 End: 07-21-2024 FLT3 ITD HN BONE MARROW [facility] Comment on above: ONCE for 1 Occurrenc es starting 07/21/2024 until 07/21/2024 Immunofixation Electrophoresis Immunofixation Electrophoresis Lab Routine MDS (myelodysplastic syndrome) (HCC) 07/24/2024 10:29 AM EDT [employer] MYELOID NGS PANEL PACO NE MARROW MYELOID NGS PANEL BONE MARROW Lab Routine Myelodysplastic syndrome, unspecified (HCC) 07/21/2024 12:28 PM EDT [facility] Patient referral [facility] Work Phone: Protein, Total and Protein Electrophoresis Protein, Total and Protein Electrophoresis Lab Routine MDS (myelodysplastic syndrome) (HCC) 07/24/2024 10:29 AM EDT [employer] RED BLOOD CELLS, ADULT RED BLOOD CELLS, ADULT Blood Bank Routine Anemia, unspecified type 09/11/2022 12:00 AM [facility] Work Phone: RED BLOOD CELLS, ADULT RED BLOOD CELLS, ADULT Blood Bank Routine Anemia, unspecified type 10/30/2022 12:00 AM [facility] Work Phone: RED BLOOD CELLS, ADULT RED BLOOD CELLS, ADULT Blood Bank Routine Myelodysplastic syndrome, unspecified (HCC) Anemia, unspecified type 02/06/2024 7:00 PM [facility] Work Phone: RED BLOOD CELLS, ADULT RED BLOOD CELLS, ADULT Blood Bank Routine Myelodysplastic syndrome, unspecified (HCC) Anemia, unspecified type 03/23/2024 7:00 PM [facility] Work Phone: RED BLOOD CELLS, ADULT RED BLOOD CELLS, ADULT Blood Bank Routine Myelodysplastic syndrome, unspecified (HCC) Anemia, unspecified type 03/23/2024 7:00 PM [facility] RED BLOOD CELLS, ADULT RED BLOOD CELLS, ADULT Blood Bank Routine Myelodysplastic syndrome, unspecified (HCC) Anemia, unspecified type 05/04/2024 8:00 PM [facility] Work Phone: RED BLOOD CELLS, ADULT RED BLOOD CELLS, ADULT Blood Bank Routine Myelodysplastic syndrome, unspecified (HCC) Anemia, unspecified type 06/29/2024 8:00 PM [facility] Work Phone: Serum Electrophoresis Serum Elec trophoresis Lab Routine MDS (myelodysplastic syndrome) (HCC) 07/24/2024 10:29 AM [facility] [employer] End: 09-19-2023 TYPE + SCREEN TYPE + SCREEN Blood Bank Routine Anemia, unspecified type 20 Occurrences starting 09/19/2022 until 09/19/2023 [facility] Work Phone: Comment on above: 20 Occurrences start ing 09/19/2022 until 09/19/2023 TYPE + SCREEN TYPE + SCREEN Bl ood Bank Routine Anemia, unspecified type 03/29/2023 3:04 PM [facility] Work Phone: TYPE + SCREEN TYPE + SCREEN Bl ood Bank Routine Anemia, unspecified type 08/02/2023 1:41 PM EDT [facility] Work Phone: End: 10-02-2024 TYPE + SCREEN TYPE + SCREEN Blood Bank Routine Myelodysplastic syndrome, unspecified (HCC) Clonal cytopenia of undetermined significance (CCUS) Once per week for 52 Occurrences starting 10/03/2023 until 10/02/2024, 2 completed [facility] Comment on above: Once per week for 52 Occurrences starting 10/03/2023 until 10/02/2024, 2 completed End: 12-24-2024 TYPE + SCREEN TYPE + SCREEN Blood Bank Routine Myelodysplastic syndrome, unspecified (HCC) 10 Occurrences starting 12/25/2023 until 12/24/2024 [facility] Comment on above: 10 Occurrences start ing 12/25/2023 until 12/24/2024 [facility] Payers Date Payer Category Payer Medicare (Managed Care) [facility] [id number] 2024 Medicare HMO [employer] [id number] 2023 Unknown [id number] 2023 Self-pay [id number] 2023 Private Health Insurance [id number] 2021 Medicare [id number] 2017 Medicare [id number] 2010 Unknown [id number] 2008 Medicare [id number] Private Health Insurance [id number] Unknown [id number] Unknown [id number] Unknown [id number] Unknown [id number] Social History Date Type Detail Facility Start: 09-05-2021 End: 07-31-2022 Tobacco smoking status NHIS Unknown if ever smoked [facility] Start: 02-23-2020 None [facility] Start: 02-23-2020 Spouse/ Signif icant Other [facility] Start: 06-30-2020 Non-smoker [facility] Start: 1945 Sex Assigned At Male W [facility] Start: 06-24-2020 End: 05-24-2022 Tobacco smoking status NHIS Never smoked tobacco [facility] Start: 06-24-2020 End: 05-24-2022 Tobacco use and exposure Smokeless tobacco non-user [facility] Start: 06-11-2021 End: 08-05-2024 Alcohol intake Current drinker of alcohol (finding) [facility] Start: 10-29-2020 History SDOH Alcohol Comment social/rare [facility] Start: 1945 Sex Assigned At Not on file C [facility] Start: 11-14-2021 End: 11-24-2021 Exposure to SARS-CoV-2 (event) Not sure [facility] Start: 05-23-2022 History SDOH Financial 5 [facility] Start: 05-23-2022 History SDOH Food Worry 1 [facility] Start: 05-23-2022 History SDOH Transpo rt Med 2 [facility] Start: 07-03-2022 End: 11-19-2023 History of Social function [facility] Start: 07-03-2022 End: 11-19-2023 Tobacco use panel [facility] How hard is it for y ou to pay for the very basics like food, housing, medical care, and heating Not hard at all [facility] (I/We) worried iron er (my/our) food would run out before (I/we) got money to buy more. Never true [facility] In the past 12 month s, was there a time when you were not able to pay the mortgage or rent on time? 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 [facility] Start: 07-24-2024 Alcohol Comment rare [facility] Medical Equipment Procedure Code Equipment Code Equipment Origin al Text Equipment Identifier Dates [id number] Start: 01-29-2023 Goals Date Patient Goal Desired Activity /State Functional Status Date Assessment Result Facility 06-19-2024 Are you deaf, or do you have serious difficulty hearing Yes 06/19/2024 6:07 PM EDT Dian Jaquez RN Yes [facility] 06-19-2024 Are you blind, or do you have serious difficulty seeing, even when wearing glasses No 06/19/2024 6:07 PM Dian Khan RN No [facility] 06-19-2024 Do you have serious difficulty walking or climbing stairs Yes 06/19/2024 6:07 PM Dian Khan RN Yes [facility] 06-19-2024 Do you have difficul ty dressing or bathing Yes 06/19/2024 6:07 PM Dian Khan RN Yes [facility] 06-19-2024 Because of a physica l, mental, or emotional condition, do you have difficulty doing errands alone such as visiting a physician's office or shopping Yes 06/19/2024 6:07 PM Dian Khan RN Yes [facility] 03-06-2024 Are you deaf, or do you have serious difficulty hearing No 03/06/2024 2:27 PM Lisette Coyle RN No [facility] 03-06-2024 Are you blind, or do you have serious difficulty seeing, even when wearing glasses No 03/06/2024 2:27 PM Lisette Coyle RN No [facility] 03-06-2024 Do you have serious difficulty walking or climbing stairs No 03/06/2024 2:27 PM Lisette Coyle RN No [facility] 03-06-2024 Do you have difficul ty dressing or bathing No 03/06/2024 2:27 PM Lisette Coyle RN No [facility] 03-06-2024 Because of a physica l, mental, or emotional condition, do you have difficulty doing errands alone such as visiting a physician's office or shopping No 03/06/2024 2:27 PM Lisette Coyle RN No [facility] Mental Status Date Assessment Result Facility 06-19-2024 Because of a physica l, mental, or emotional condition, do you have serious difficulty concentrating, remembering, or making decisions Yes 06/19/2024 6:07 PM Dian Khan RN Yes [facility] 03-06-2024 Because of a physica l, mental, or emotional condition, do you have serious difficulty concentrating, remembering, or making decisions No 03/06/2024 2:27 PM Lisette Coyle RN No [facility] 09-07-2021 Cognitive function Voice/Name [facility] Work Phone: Clinical Notes 06-01-2022 to 08-06-2024 Telephone Encounter - Micah Heart MA - 08/06/2024 10:04 AM EDTTelephone Encounter - Micah Heart MA - 08/06/2024 10:04 AM EDTTelephone Encounter - Alka Noriega MD - 08/05/2024 9:10 PM EDT Note Date & Type Note Facility 08-06-2024 Telephone encounter Note Sent message to [place] in [place] and [place] of the plan to get him schedule FÉLIX Kelly [facility] 08-06-2024 Miscellaneous Notes Sent message to [place] in [place] and [place] of the plan to get him schedule FÉLIX Kelly Need to schedule pt for procrit weekly - mostly lodi but every 3-4 here. documented in this encounter [facility] 08-05-2024 Telephone encounter Note Need to schedule pt for procrit weekly - mostly lodi but every 3-4 here. [facility] Work Phone: 07-29-2024 Note Sofía [facility] 07-29-2024 History of Presen t illness Narrative Pt arrived to infusion per self. Pt gait steady but slow, pt with 9/10 pain to his back. VSS, PIV started to left arm. Pt denies fever, chills, cough or cold symptoms. RBC's up as ordered. Pt verbalized understanding to notify RN of sob, chest pain, chills or itching and back pain. Will monitor throughout. Transfusion complete, pt tolerated well, no fever, chills, or S&S of reaction. Pt up to restroom without difficulty. Line flushing. VSS Pt ambulating to lobby per self. No concerns. documented in this encounter [facility] 07-27-2024 Telephone encounter Note Noted. Message sent to PHIL Barros. No further orders at this time. [facility] 07-27-2024 Miscellaneous Notes Noted. Message sent to PHIL Barros. No further orders at this time. Images from the original note were not included. Noted. No need to have him come back for redraw. We can await labs we have and discuss at next appt Carla Spears RN to Nh (Selected Message) [place] 07/27/24 11:30 AM Please see message and advise, thanks Carla Spears RN [place] 07/27/24 11:29 AM Note Noted. Message sent to . 07/27/24 11:28 AM Fiorella Murdock MA routed this conversation to [facility] Clinical Director Of Employer Services MD Fiorella Coon MA 07/27/24 11:27 AM Note Zinc and Copper tests where Canceled. Send outs called me and stated that I did not spin tubes properly. New Store Protection Specialist in Send outs. She states that the way I have been sending these tests is incorrect and they need redrawn. DO NOT spin them and I am to send these tubes (royal blue) to [facility] Do you want these test redrawn?? Or wait till he comes back in to see you? Thank You José Miguel : ) Noted. Message sent to . Zinc and Copper tests where Canceled. Send outs called me and stated that I did not spin tubes properly. New Store Protection Specialist in Send outs. She states that the way I have been sending these tests is incorrect and they need redrawn. DO NOT spin them and I am to send these tubes (royal blue) to [facility] Do you want these test redrawn?? Or wait till he comes back in to see you? Thank You José Miguel : ) documented in this encounter [facility] 07-27-2024 Telephone encounter Note Images from the original note were not included. Noted. No need to have him come back for redraw. We can await labs we have and discuss at next appt Carla Spears RN to Nh (Selected Message) [place] 07/27/24 11:30 AM Please see message and advise, thanks Carla Spears RN [place] 07/27/24 11:29 AM Note Noted. Message sent to . 07/27/24 11:28 AM Fiorella Murdock MA routed this conversation to [facility] Clinical Director Of Employer Services MD Fiorella Coon MA 07/27/24 11:27 AM Note Zinc and Copper tests where Canceled. Send outs called me and stated that I did not spin tubes properly. New Store Protection Specialist in Send outs. She states that the way I have been sending these tests is incorrect and they need redrawn. DO NOT spin them and I am to send these tubes (royal blue) to [facility] Do you want these test redrawn?? Or wait till he comes back in to see you? Thank You José Miguel : ) T [facility] 07-27-2024 Telephone encounter Note Noted. Message sent to . T [facility] 07-27-2024 Telephone encounter Note Zinc and Copper tests where Canceled. Send outs called me and stated that I did not spin tubes properly. New Store Protection Specialist in Send outs. She states that the way I have been sending these tests is incorrect and they need redrawn. DO NOT spin them and I am to send these tubes (royal blue) to [facility] STAT Do you want these test redrawn?? Or wait till he comes back in to see you? Thank You José Miguel : ) [facility] 07-24-2024 History of Presen t illness Narrative Images from the original note were not included. 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 -03/08/2023 started Luspatercept which was increased to max dose -01/10/2024 = started on Imetelstat via Dr Alka Noriega -Receiving luspatercept and Imetelstat through [facility]/Alka Noriega -07/24/2024 =2nd opinion w/ me 2. Fatty liver Documented on 11/24/2021 abd u/s 3.Iron overload ASSESSMENT AND PLAN: Joss Oropeza is a 79 y.o. male here for 1. MDS: I have reviewed the entire case including the past bone marrow biopsy as well as the interventions taken in the past. 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 I discussed options going forward including pursuing a bone marrow biopsy to further evaluate the disease and evaluate for further clonal evolution. With the worsening platelet count, hypomethylating agent may be indicated. Pt reports a BMBx was done last week at [facility] We discussed all options going forward including second opinion at academic center based on the bone marrow biopsy report versus other interventions etc. -All questions were answered to patient, son/ satisfaction - Labs today and - Follow-up after bone marrow biopsy to discuss next steps On this date, 07/24/24 , I have spent 60 minutes preparing to see the patient, reviewing previous notes and test results, completing clinical documentation as well as with [id number] patient care, performing a medically appropriate examination, counseling / educating the patient/family/caregiver, and ordering medications, tests, or procedures. HPI: Joss Oropeza is a 79 y.o. male who presents here today with MDS Patient with a past medical history of diabetes, dyslipidemia, myelodysplastic syndrome who reported a prodrome of 1 year of weakness and fatigue. He presented with macrocytic anemia and thrombocytopenia in the setting of normal kidney function. Reportedly CT imaging is all negative including a CT of the chest, abdomen pelvis He was admitted in May 2024 with back pain complaints. MRI was obtained and he was then transferred to [place] for rehab services The most recent communication from Dr. Zelaya was on July 09 at which time the hemoglobin was reported at 7.9 and patient was requesting RBC transfusion. Dr. Zelaya plan to hold off with transfusion and repeat labs 1 week from that With each dose of Imetelstat pt reports drop in Hgb. 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 Vaping Use Vaping status: Never Used Substance and Sexual Activity Alcohol use: Yes Comment: rare Drug use: Never Sexual activity: Not on file Other Topics Concern Not on file Social History Narrative Not on file Social Drivers of Health Financial Resource Strain: Low Risk (05/23/2022) Received from [facility] Overall Financial Resource Strain (CARDIA) Difficulty of Paying Living Expenses: Not hard at all Food Insecurity: No Food Insecurity (06/07/2024) Received from [facility] Hunger Vital Sign Worried About Running Out of Food in the Last Year: Never true Ran Out of Food in the Last Year: Never true Transportation Needs: No Transportation Needs (06/07/2024) Received from [facility] PRAPARE - Transportation Lack of Transportation (Medical): No Lack of Transportation (Non-Medical): No Physical Activity: Not on file Stress: Not on file Social Connections: Not on file Intimate Partner Violence: Not on file Housing Stability: Unknown (06/07/2024) Received from [facility] Housing Stability Vital Sign Unable to Pay for Housing in the Last Year: No Number of Times Moved in the Last Year: Not on file Homeless in the Last Year: No Family History[7] Allergies[8] Reviewed medications, allergies, past medical history, social history, family history as above. ROS: Constitutional: No fever, chills, night sweats, weight loss FISH PITCHER: No blurry vision , headaches, focal neurologic deficits HEENT: no oral lesions, sores, dysphagia, no neck swelling CV: No chest pain, SOB GI: no abdominal pain, nausea, vomiting, diarrhea : No dysuria, hematuria, DERM: no rashes, skin changes LYM: No cervical/axillary supraclav lymphadenopathy Heme: no bleeding / bruising Psych: no nervousness, depression MSK: no swelling, myalgia, arthralgia ENDO: no heat/cold intolerance, no polyuria/polydipsia PHYSICAL EXAM: BP 103/56 Pulse 105 Temp 36.7 C (98.1 F) (Temporal) Ht 1.727 m (5' 8) Wt 95.7 kg (210 lb 14.4 oz) SpO2 99% BMI 32.07 kg/m CONSTITUTIONAL: see VS. No apparent distress. EYES: normal appearing conjunctivae, lids, eyes, pupils MSK: No clubbing, normal UE muscle tone bilat PYSCH: AAOx3. Mood and affect appropriate, patient interactive Labs Most recent labs reviewed No results found for: NA, K, CL, CO2, BUN, CREATININE, GLUCOSE, CALCIUM, PROT, BILITOT, ALKPHOS, AST, ALT, LABGLOM, AGRATIO, GLOB No results found for: WBC, HGB, HCT, MCV, PLT, LABLYMP, LYMPHOPCT, GRANULOCYTES, RBC, MCH, MCHC, RDW 07/03/2022 labs CBC: 5.4/7.6/23/116 EPO = 879 June 07, 2024 labs: CBC: 6.4/9.0/25.9/54 Normal differential Radiology reviewed: 06/08/24 MRI L spine 1. Multilevel central canal stenosis as detailed above. 2. Multilevel degenerative neural foraminal narrowing as detailed above. 3. Chronic compression deformities at the L1, L3, L4 levels. No evidence of acute lumbar spine compression fracture. 4. Prior L3 vertebroplasty. Pathology Reviewed: BM biopsy 06/01/22: Variably cellular marrow with trilineage hematopoiesis and mild erythroid and megakaryocyte atypia. - Storage iron present and focally increased. The marrow is variably cellular and at least focally appears mildly increased although the biopsy is small and fragmented and suboptimal. Mild atypia is seen in the erythroids, and occasional small megakaryocytes are present. Although an early myeloid neoplasm is in the differential, this degree of atypia may be seen due to other causes including nutritional deficiencies such as vitamin B12, folate or copper, toxic exposures, autoimmune/rheumatologic etiologies, infectious etiologies, and other neoplasms. The finding of vacuolated immature erythroids in the aspirate raises the possibility of copper deficiency. Correlation with copper levels may be useful if clinically indicated. Mast cells appear increased, predominantly morphologically unremarkable. The myeloid NGS demonstrates a variant of potential clinical significance in the PPM1D gene, which raises the possibility of a clonal cytopenia of undetermined significance, although this variant is rarely germline. 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 There was no significant numerical chromosome abnormality and no structural change detected within the limits of resolution. 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 [1] Past Medical History: Diagnosis Date Clonal cytopenia of undetermined significance Myelodysplastic syndrome (HCC) [2] No past surgical history on file. [3] Current Outpatient Medications: cyanocobalamin (Vitamin B-12) 1000 MCG tablet, Take 1,000 mcg by mouth daily., Disp: , Rfl: finasteride (Proscar) 5 MG tablet, Take 5 mg by mouth daily. Do not crush, chew, or split., Disp: , Rfl: glimepiride (Amaryl) 4 MG tablet, Take 4 mg by mouth every morning (before breakfast)., Disp: , Rfl: metFORMIN (Glucophage) 850 MG tablet, Take by mouth., Disp: , Rfl: Multiple Vitamin (MULTIVITAMIN ADULT PO), Take by mouth., Disp: , Rfl: rosuvastatin (Crestor) 10 MG tablet, Take 10 mg by mouth daily., Disp: , Rfl: SITagliptin (Januvia) 100 MG tablet, Take 100 mg by mouth daily., Disp: , Rfl: SITagliptin-metFORMIN (Janumet) 50-1000 MG tablet, Take 1 tablet by mouth 2 times daily (with meals)., Disp: , Rfl: tamsulosin (Flomax) 0.4 MG 24 hr capsule, Take 0.4 mg by mouth daily., Disp: , Rfl: alendronate (Fosamax) 70 MG tablet, 1 tab(s) orally once a week, Disp: , Rfl: aspirin 81 MG EC tablet, Take 81 mg by mouth., Disp: , Rfl: [4] [5] [6] [7] No family history on file. [8] Allergies Allergen Reactions Cefepime Unknown Patient seen by Dr You Labs drawn 1 stick right arm 2 av 2 royal blue 4-10ml sst All labs sent to [facility] documented in this encounter [facility] 07-24-2024 History of Presen t illness Narrative Images from the original note were not included. 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 -03/08/2023 started Luspatercept which was increased to max dose -01/10/2024 = started on Imetelstat via Dr Alka Noriega -Receiving luspatercept and Imetelstat through [facility]/Alka Noriega -07/24/2024 =2nd opinion w/ me 2. Fatty liver Documented on 11/24/2021 abd u/s 3.Iron overload ASSESSMENT AND PLAN: Joss Oropeza is a 79 y.o. male here for 1. MDS: I have reviewed the entire case including the past bone marrow biopsy as well as the interventions taken in the past. 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 I discussed options going forward including pursuing a bone marrow biopsy to further evaluate the disease and evaluate for further clonal evolution. With the worsening platelet count, hypomethylating agent may be indicated. Pt reports a BMBx was done last week at [facility] We discussed all options going forward including second opinion at academic center based on the bone marrow biopsy report versus other interventions etc. -All questions were answered to patient, son/ satisfaction - Labs today and - Follow-up after bone marrow biopsy to discuss next steps On this date, 07/24/24 , I have spent 60 minutes preparing to see the patient, reviewing previous notes and test results, completing clinical documentation as well as with [id number] patient care, performing a medically appropriate examination, counseling / educating the patient/family/caregiver, and ordering medications, tests, or procedures. HPI: Joss Oropeza is a 79 y.o. male who presents here today with MDS Patient with a past medical history of diabetes, dyslipidemia, myelodysplastic syndrome who reported a prodrome of 1 year of weakness and fatigue. He presented with macrocytic anemia and thrombocytopenia in the setting of normal kidney function. Reportedly CT imaging is all negative including a CT of the chest, abdomen pelvis He was admitted in May 2024 with back pain complaints. MRI was obtained and he was then transferred to [facility] for rehab services The most recent communication from Dr. Zelaya was on July 09 at which time the hemoglobin was reported at 7.9 and patient was requesting RBC transfusion. Dr. Zelaya plan to hold off with transfusion and repeat labs 1 week from that With each dose of Imetelstat pt reports drop in Hgb. 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 Vaping Use Vaping status: Never Used Substance and Sexual Activity Alcohol use: Yes Comment: rare Drug use: Never Sexual activity: Not on file Other Topics Concern Not on file Social History Narrative Not on file Social Drivers of Health Financial Resource Strain: Low Risk (05/23/2022) Received from [facility] Overall Financial Resource Strain (CARDIA) Difficulty of Paying Living Expenses: Not hard at all Food Insecurity: No Food Insecurity (06/07/2024) Received from [facility] Hunger Vital Sign Worried About Running Out of Food in the Last Year: Never true Ran Out of Food in the Last Year: Never true Transportation Needs: No Transportation Needs (06/07/2024) Received from [facility] PRAPARE - Transportation Lack of Transportation (Medical): No Lack of Transportation (Non-Medical): No Physical Activity: Not on file Stress: Not on file Social Connections: Not on file Intimate Partner Violence: Not on file Housing Stability: Unknown (06/07/2024) Received from [facility] Housing Stability Vital Sign Unable to Pay for Housing in the Last Year: No Number of Times Moved in the Last Year: Not on file Homeless in the Last Year: No Family History[7] Allergies[8] Reviewed medications, allergies, past medical history, social history, family history as above. ROS: Constitutional: No fever, chills, night sweats, weight loss FISH PITCHER: No blurry vision , headaches, focal neurologic deficits HEENT: no oral lesions, sores, dysphagia, no neck swelling CV: No chest pain, SOB GI: no abdominal pain, nausea, vomiting, diarrhea : No dysuria, hematuria, DERM: no rashes, skin changes LYM: No cervical/axillary supraclav lymphadenopathy Heme: no bleeding / bruising Psych: no nervousness, depression MSK: no swelling, myalgia, arthralgia ENDO: no heat/cold intolerance, no polyuria/polydipsia PHYSICAL EXAM: BP 103/56 Pulse 105 Temp 36.7 C (98.1 F) (Temporal) Ht 1.727 m (5' 8) Wt 95.7 kg (210 lb 14.4 oz) SpO2 99% BMI 32.07 kg/m CONSTITUTIONAL: see VS. No apparent distress. EYES: normal appearing conjunctivae, lids, eyes, pupils MSK: No clubbing, normal UE muscle tone bilat PYSCH: AAOx3. Mood and affect appropriate, patient interactive Labs Most recent labs reviewed No results found for: NA, K, CL, CO2, BUN, CREATININE, GLUCOSE, CALCIUM, PROT, BILITOT, ALKPHOS, AST, ALT, LABGLOM, AGRATIO, GLOB No results found for: WBC, HGB, HCT, MCV, PLT, LABLYMP, LYMPHOPCT, GRANULOCYTES, RBC, MCH, MCHC, RDW 07/03/2022 labs CBC: 5.4/7.6/23/116 EPO = 879 June 07, 2024 labs: CBC: 6.4/9.0/25.9/54 Normal differential Radiology reviewed: 4/14/25 MRI L spine 1. Multilevel central canal stenosis as detailed above. 2. Multilevel degenerative neural foraminal narrowing as detailed above. 3. Chronic compression deformities at the L1, L3, L4 levels. No evidence of acute lumbar spine compression fracture. 4. Prior L3 vertebroplasty. Pathology Reviewed: BM biopsy 06/01/22: Variably cellular marrow with trilineage hematopoiesis and mild erythroid and megakaryocyte atypia. - Storage iron present and focally increased. The marrow is variably cellular and at least focally appears mildly increased although the biopsy is small and fragmented and suboptimal. Mild atypia is seen in the erythroids, and occasional small megakaryocytes are present. Although an early myeloid neoplasm is in the differential, this degree of atypia may be seen due to other causes including nutritional deficiencies such as vitamin B12, folate or copper, toxic exposures, autoimmune/rheumatologic etiologies, infectious etiologies, and other neoplasms. The finding of vacuolated immature erythroids in the aspirate raises the possibility of copper deficiency. Correlation with copper levels may be useful if clinically indicated. Mast cells appear increased, predominantly morphologically unremarkable. The myeloid NGS demonstrates a variant of potential clinical significance in the PPM1D gene, which raises the possibility of a clonal cytopenia of undetermined significance, although this variant is rarely germline. 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 There was no significant numerical chromosome abnormality and no structural change detected within the limits of resolution. 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 [1] Past Medical History: Diagnosis Date Clonal cytopenia of undetermined significance Myelodysplastic syndrome (HCC) [2] No past surgical history on file. [3] Current Outpatient Medications: cyanocobalamin (Vitamin B-12) 1000 MCG tablet, Take 1,000 mcg by mouth daily., Disp: , Rfl: finasteride (Proscar) 5 MG tablet, Take 5 mg by mouth daily. Do not crush, chew, or split., Disp: , Rfl: glimepiride (Amaryl) 4 MG tablet, Take 4 mg by mouth every morning (before breakfast)., Disp: , Rfl: metFORMIN (Glucophage) 850 MG tablet, Take by mouth., Disp: , Rfl: Multiple Vitamin (MULTIVITAMIN ADULT PO), Take by mouth., Disp: , Rfl: rosuvastatin (Crestor) 10 MG tablet, Take 10 mg by mouth daily., Disp: , Rfl: SITagliptin (Januvia) 100 MG tablet, Take 100 mg by mouth daily., Disp: , Rfl: SITagliptin-metFORMIN (Janumet) 50-1000 MG tablet, Take 1 tablet by mouth 2 times daily (with meals)., Disp: , Rfl: tamsulosin (Flomax) 0.4 MG 24 hr capsule, Take 0.4 mg by mouth daily., Disp: , Rfl: alendronate (Fosamax) 70 MG tablet, 1 tab(s) orally once a week, Disp: , Rfl: aspirin 81 MG EC tablet, Take 81 mg by mouth., Disp: , Rfl: [4] [5] [6] [7] No family history on file. [8] Allergies Allergen Reactions Cefepime Unknown Patient seen by Dr You Labs drawn 1 stick right arm 2 lav 2 royal blue 4-10ml sst All labs sent to [facility] documented in this encounter [facility] 07-21-2024 Surgery Surgical operation note INTERVENTIONAL RADIOLOGY POST PROCEDURE NOTE DATE: 07/21/24 NAME: Joss Oropeza LOG ID: [id number] Pre-Procedure Diagnosis: Thrombocytopenia Supervisory Civil Engineer: Surgeons and Role: * Rodrigo Magana MD, MD - Primary Procedure: BMB & aspiration Anesthesia: Procedural Sedation Findings: ~ 25 cc marrow aspirated. Good core specimen Estimated Blood Loss: 2 mls Specimen: To hematology Complications: None Post-Op/Post-Procedure Diagnosis: Thrombocytopenia [facility] 07-21-2024 Surgical operatio n note INTERVENTIONAL RADIOLOGY POST PROCEDURE NOTE DATE: 07/21/24 NAME: Joss Oropeza LOG ID: [id number] Pre-Procedure Diagnosis: Thrombocytopenia Supervisory Civil Engineer: Surgeons and Role: * Rodrigo Magnaa MD, MD - Primary Procedure: BMB & aspiration Anesthesia: Procedural Sedation Findings: ~ 25 cc marrow aspirated. Good core specimen Estimated Blood Loss: 2 mls Specimen: To hematology Complications: None Post-Op/Post-Procedure Diagnosis: Thrombocytopenia documented in this encounter [facility] 07-21-2024 History and physical note UPDATED HISTORY AND PHYSICAL EXAMINATION Date: 07/21/24 Name: Joss Oropeza PHYSICAL EXAM MUST BE COMPLETED ON ADMISSION The History and Physical (completed in the past 30 days) has been reviewed and the patient has been examined. The contents accurately reflect the patient's condition with the following additions or revisions since the H&P was completed. Examination indicates no changes. This H&P can be found in the Electronic Medical Record dated 07/15/2024 @ 10:43 AM. [facility] Work Phone: 07-21-2024 History and physical note UPDATED HISTORY AND PHYSICAL EXAMINATION Date: 07/21/24 Name: Joss Oropeza PHYSICAL EXAM MUST BE COMPLETED ON ADMISSION The History and Physical (completed in the past 30 days) has been reviewed and the patient has been examined. The contents accurately reflect the patient's condition with the following additions or revisions since the H&P was completed. Examination indicates no changes. This H&P can be found in the Electronic Medical Record dated 07/15/2024 @ 10:43 AM. documented in this encounter [facility] 07-17-2024 Note Sofía Sharma [facility] 07-15-2024 Note HNO ID: [id number] Author: TRACY FARFAN PA-C Service: ? Author Type: Physician Credentialer Type: Progress Notes Filed: 07/15/2024 10:43 Note Text: Tracy Farfan [facility]-C [facility] [address] [place] [address] 07/15/2024 ASSESSMENT AND PLAN: Assessment : Encounter Diagnosis ICD-10-CM 1. Mechanical low back pain M54.59 2. Right foot drop M21.371 Discussion: Mr. Oropeza is a pleasant 79-year-old man accompanied by his oldest son Won today. The patient is here for evaluation of chronic central lumbosacral pain. Getting facet injections by Dr. Cordova and may get an RFA next Getting home PT 1x/wk but admits to not doing much for his HEP EXAM Highlights: Patient is slow to mobilize from sitting to standing posture and uses the arms of his chair to help himself elevate. He does not stand straight up and his gait is unsteady. He uses a walker to help himself get around. He has chronic right foot drop There is diminished reflexes distally but it is equal bilaterally. He is unable to fully straighten out his knees which also obligates him to lean forward as he walks with positive sagittal balance. No other focal strength deficit then foot drop and EHL weakness severely on the RIGHT. Seated SLR's are negative bilaterally There is pain to palpation directly at the lumbosacral junction in the midline and no other posterior pelvic bony prominences are bothersome to him. IMAGING: We reviewed his current lumbar MRI study from May 2024. 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 He also has what appears to be at least partial autofusion at L5-S1 with anterior bone spurring additionally noted. There is old fracture at L1 There is no severe central stenosis or foraminal stenosis. Additional imaging reviewed today included 06/03/2024 CT lumbar. Findings consistent with MRI findings noted above. No recent fracture and issues regarding L3 vertebroplasty also noted. SUMMARY/PLAN: He will continue with conservative treatment with his home physical therapy. I encouraged strong participation in this. He will also continue with Dr. Cordova doing facet injections and possible future RFA's. He seems to think that this is helping somewhat. Finally, he will consider weight loss as an additional help to diminish his overall physical load that he carries when he gets up and moves around. We talked about various types of therapies and medications that he could consider. He probably would not be good candidate for gabapentin or Lyrica partially due to his age and partially due to to the fact that he does not really have much in the way of radiating nerve pain. I would also shy away from muscle relaxant as an option for him because how it could cause additional instability and he may fall and have another fracture. He does not appear to have severe muscle spasm anywhere. Plan : ACTIVITY RECOMMENDATIONS: -The patient is encouraged to avoid bed rest and maintain normal activity. -The patient is encouraged to exercise regularly as tolerated. -The patient advised to avoid prolonged sitting. FOLLOW-UP: -The patient is instructed to return as needed. ADDITIONAL DISCUSSION: -We discussed the difference between hurt vs harm as it relates to chronic pain. This document has been created with the use of voice recognition technology. It may contain inaccuracies: (e.g. misspellings, inaccurate syntax or word sense) that have escaped review. Time spent: 38 minutes today with this patient visit. This includes eeyo-dg-ekos time, review of chart records regarding conservative care history, spine-pertinent imaging, and communication/care coordination with referring provider, problem-specific history-taking and counseling/education regarding treatment options. cc: Maynor Andres [address] [id number] Results of consultation to be transmitted via electronic medical record for those providers who practice within [facility] or with access to [employer] via [employer], or via letter. ################################ ################################ ######## CHIEF COMPLAINT: Patient is here for the lower back pain. Has this pain for a month and half, he was lifting something heavy and pain started. Level of the pain is at 7/10. Will have stabbing pain with some movements. Has general weakness. Has flare ups, the last on was about 8 years ago. HPI: see Discussion above History of bowel or bladder dysfunction (not IBS or constipation): No History of previous spinal surgery: No History of spinal fracture: No Work Status: retired NON-OPERATIVE CARE: Medication(s): He has tried the following for relief of his (more content not included)... [facility] 07-03-2024 Note [facility] 07-03-2024 History of Presen t illness Narrative Pt arrived using walker to ambulate. VSS, States back pain better controlled today after injections last evening. Denies fever, chills, cough, and congestion. PIV started to left AC. Pt tolerated well. RBC's up as ordered. Pt verbalized understanding to notify RN of sob, chest pain,chills or discomfort. Will monitor throughout. Pt up to Bathroom. Ambulated per wheelchair. Gait steady. RBC's complete. No S&S of reaction. VSS. Pt ambulated to ER to be with . No concerns at this time. documented in this encounter [facility] 06-30-2024 Note [facility] 06-30-2024 History of Presen t illness Narrative Joss Oropeza 1945 June 30, 2024 HPI: Joss Oropeza is a 79 year old male who presents as a hospital follow up. Mr. Oropeza is a 79 year old male who presented to ER on 05/22/22 for anemia. This is a 79 year old male who presented with for low hgb from primary care office. Patient states he was 6.7 at PCP office and 6.0 at [facility]. PMHx of chronic anemia (baseline 9-11), diabetes, hepatic steatosis, CVA on ASA. He reports worsening shortness of breath over the last 1 year associated with weakness and fatigue. He denies any chest pain. He denies any overt GI bleeding, no blood or darker stool, no weight loss, no abdominal pain, no issues swallowing, and no issues with constipation or diarrhea. Reports several colonoscopies in the past with Dr. Hernandez in [place], last done July 2021 that had one polyp removed. Remote EGD. He does endorse some heartburn and reflux occasionally. He denies any NSAID use besides ASA 81 mg, no blood thinners, no smoking, and only rare alcohol use. Hgb this morning 7.2 from 5.9 s/p 1 unit of blood. Platelets low 114, and MCV elevated. Kidney function normal. Iron studies showing normal iron, ferritin elevated, folate and b12 normal. CT a/p showed no acute findings in abdomen and pelvis. VSS. GI consulted for anemia. I was asked to see him for macrocytic anemia prior to d/c. He was SOB on admission and now feels better. He received 1 unit PRBC on 05/22 and another on 05/23/22. He is very active on his tractor at home. He is a non smoker. Does not drink alcohol. No family hx of bone marrow issues. Denies any bleeding. Does get some therapy and transfusions at [facility] closer to home. Remains on Rytelo per scheduling. Taking insulin daily. Just had it doubled to 25 units per day. Has made some progress getting to <200. - 03/11/24 glucose level of 219. - 03/06/24 glucose level 216. - 03/05/24 glucose level 255. Interval history: Today he is here with his family for follow up and Rytelo C#6. Doing ok today. Was in the hospital and rehab due to back pain. No major changes. PAST MEDICAL HISTORY Diagnosis Date Cancer of unknown origin (HCC) 12/11/2022 Diabetes (HCC) Dyslipidemia Heart murmur Rheumatic fever Stroke (cerebrum) ([facility]) 06/24/2020 PAST SURGICAL HISTORY Procedure Laterality Date ADENOIDECTOMY PRIMARY <AGE 10 Adenoidectomy COLONOSCOPY FLX DX W/COLLJ SPEC WHEN PFRMD Colonoscopy COLONOSCOPY FLX DX W/COLLJ SPEC WHEN PFRMD Colonoscopy LAPAROSCOPY SURG CHOLECYSTECTOMY Cholecystectomy, lap PAST SURGICAL HISTORY OF 11-12 BACK SURGERY PAST SURGICAL HISTORY OF SKIN LESION--PRE CANCER SKULL PAST SURGICAL HISTORY OF SKIN LESION--SKIN CANCER LEFT HAND PICC LINE MRSA INFECTION RT/LT HEART CATHETERS CC & CA, R & L heart, NEGATIVE TONSILLECTOMY PRIMARY/SECONDARY <AGE 10 Tonsillectomy Current Outpatient Medications Medication Sig Dispense Refill polyethylene glycol 3350 17 gram packet Take 1 packet by mouth once daily. Dissolve dose in 4 - 8 ounces of liquid and take as directed. amLODIPine (NORVASC) 5 mg tablet Take 1 tablet by mouth once daily. 90 tablet acetaminophen (TYLENOL) 500 mg tablet Take 2 tablets by mouth every 8 hours. 180 tablet 0 tiZANidine (ZANAFLEX) 2 mg tablet Take 1 tablet by mouth every 8 hours as needed. 60 tablet 0 diclofenac (VOLTAREN ARTHRITIS PAIN) 1 % topical gel Apply 4 g to affected area four times daily. 450 g 0 docusate sodium (COLACE) 100 mg capsule Take 1 capsule by mouth two times a day as needed for constipation. 30 capsule 0 aspirin 81 mg chewable tablet Take 81 mg by mouth once daily. IFTIKHAR VAZQUEZ U-100 INSULIN 100 unit/mL (3 mL) Inject 27 Units subcutaneously every morning. BD CRISTAL 2ND GEN PEN NEEDLE 32 gauge x glimepiride (AMARYL) 4 mg tablet Take 4 mg by mouth daily with dinner. rosuvastatin (CRESTOR) 10 mg tablet Take 1 tablet by mouth daily at bedtime. 90 tablet 3 MEN'S MULTI-VITAMIN ORAL Take 1 tablet by mouth. cyanocobalamin (VITAMIN B-12) 1,000 mcg tab Take 1,000 mcg by mouth once daily. tamsulosin (FLOMAX) 0.4 mg Take 0.4 mg by mouth once daily. finasteride (PROSCAR) 5 mg tablet Take 5 mg by mouth daily at bedtime. alendronate (FOSAMAX) 70 mg tablet Take 70 mg by mouth one time a week. In AM with cup of water on empty stomach. Nothing else by mouth and stay upright for 30 min. No current facility-administered medications for this visit. Facility-Administered Medications Ordered in Other Visits Medication Dose Route Frequency Provider Last Rate Last Admin luspatercept-aamt 170.5 mg in syringe 3.41 mL (REBLOZYL) 1.75 mg/kg/dose (Treatment Plan Recorded) SUBCUTANEOUS ONCE Alka Noriega MD hydrocortisone sodium succinate (PF) 100 mg injection (Solu-CORTEF) 100 mg INTRAVENOUS ONCE Alka Noriega MD NaCl 0.9% iv infusion 500-999 mL/hr INTRAVENOUS PRN Alka Noriega MD diphenhydrAMINE 50 mg injection (BENADRYL) 50 mg INTRAVENOUS PRN Alka Noriega MD hydrocortisone sodium succinate (PF) 100 mg injection (Solu-CORTEF) 100 mg INTRAVENOUS PRN Alka Noriega MD EPINEPHrine HCl (PF) 1 mg/mL (1 mL) 0.3 mg injection 0.3 mg INTRAMUSCULAR PRN Alka Noriega MD imetelstat 543.76 mg in NaCl 0.9% 500 mL (RYTELO) 5.6 mg/kg/dose (Treatment Plan Recorded) INTRAVENOUS ONCE Alka Noriega MD ALLERGIES Allergen Reactions Maxipime [Cefepime] Unknown FAMILY HISTORY Problem Relation Age of Onset Stroke Mother Ischemic Heart Disease Father Social History Tobacco Use Smoking status: Never Smokeless tobacco: Never Vaping Use Vaping status: Never Used Substance Use Topics Alcohol use: Yes Comment: social/rare Drug use: No I have reviewed the PMHx, PSHx, social history and ROS on June 30, 2024 - all new information noted. Review of Systems: Constitutional: No fevers, chills, drenching night sweats or unintentional weight loss. Color to cheeks. +fatigue. HEENT: No yellowing of the eyes, no vision changes, no hearing loss or ear pain, no nosebleeds or drainage, no sore throat. Neck: No complaints. Chest: No SOB or cough, +occasional [place], no hemoptysis, no wheezing. Breast: No complaints. Heart: No chest pain, pressure or tightness. No racing heartbeat. Abdominal: No pain or difficulty with swallowing, no N/V, no early satiety, no abdominal pain or bloating, no diarrhea or constipation, no change in bowel habits, no blood in the urine. Genitourinary: No pain or burning with urination, no incontinence, no blood in the urine. Extremities: no pain or swelling. +Back pain Neurological: No headaches, no numbness or tingling in the extremities, no double vision. Skin: No rashes or ulcerations, no change in pigmentation. Nodes: no enlargement per patient. Heme: No easy bruising or bleeding, no yellowing of the eyes or darkening of urine. Psychiatric: no anxiety or depression. Immunologic: No recurrent or persistent infections of the sinuses, lungs or urinary tract. Endocrine: No hair or nail changes, no polyuria, polydipsia, or polyphagia. Appetite normal. I have performed the physical exam on June 30, 2024 - all new findings noted below. Physical Exam: Trending of last 3 clinical abnormalities associated with Severe Sepsis or Septic Shock 06/19/2024 0736 06/19/2024 1537 06/30/2024 1141 Temp: 36.3 C (97.4 F) 36.7 C (98.1 F) 36.5 C (97.7 F) Pulse: 74 75 92 Resp: 18 16 16 BP: 152/75 136/63 142/68 MAP: 101 87 -- O2 Sat: 93 % 97 % 98 % Last Wt 06/30/24 : 99 kg (218 lb 4.1 oz) 06/09/24 : 95.5 kg (210 lb 8.6 oz) 06/06/24 : 99.8 kg (220 lb) 06/03/24 : 100 kg (220 lb 7.4 oz) 06/02/24 : 100.5 kg (221 lb 10.8 oz) Last 1 Encounter Ht Readings: Date: Ht: 06/30/2024 175.3 cm (5' 9.02) ECOG PS: 1 Pain Intensity: 0/10 General: Age-appropriate well developed. Appears well. Fatigued. HEENT: Normocephalic, no sclera icterus, external ears normal, oral cavity clear. Neck: Supple, no thyroid nodules, no JVD. Chest: Clear bilaterally, no wheezes, not labored. Heart: Normal S1 and S2, no abnormal sounds, peripheral pulses synchronized. +murmur grade 1/6 Abdomen: Soft, nontender, nondistended, bowel sounds present, no organomegaly or mass, no rigidity. /Rectal: deferred Extremities: No cyanosis, clubbing, gross deformities, or palpable cords. Neurological: Cranial nerves II through XII are intact bilaterally, strength normal in the upper and lower extremities, no focal deficits. Skin: Warm and dry with no rashes or ulcerations. Nodes: No palpable adenopathy in the cervical, supraclavicular, infraclavicular, or axillary regions. Hematologic: no bruising or petechiae. Psychiatric: Alert and oriented x3. Emotional well-being assessment was performed. Pt denies depression, distress, and or problems with coping or adjustment. Labs CBC: Recent Labs 06/30/24 1150 WBC 6.61 HB 7.0* HCT 20.0* PLT 67* MCV 81.0 RDWCV 16.1* NEUTP 60.3 ABSNEUT 3.99 LYMPHP 30.3 MONOP 8.3 EODINP 0.0 COAG: No results for input(s): APTT, INR in the last 168 hours. BMP: Recent Labs 06/30/24 1150 GLUC 197* NA 135* K 4.0 CHLOR 100 CO2 22 ANION 13 BUN 21 CREAT 0.84 CHEM: Recent Labs 06/30/24 1150 ALB 3.8* TPROT 7.2 CA 9.4 Lab Results Component Value Date MURRAY 1,130.0 (H) 01/10/2024 MURRAY 869.8 (H) 05/22/2022 IRON Lab Results Component Value Date FE 225 (H) 01/10/2024 FE 128 05/22/2022 TIBC Lab Results Component Value Date TIBC 244 01/10/2024 TIBC 05/22/2022 Comment: Unable to assay. Specimen significantly hemolyzed. FOLATE Lab Results Component Value Date FOLATE >20.0 05/23/2022 Lab Results Component Value Date RETICP 1.8 07/03/2022 ABSRETIC 0.037 07/03/2022 MURRAY 1,130.0 (H) 01/10/2024 MURRAY 869.8 (H) 05/22/2022 FE 225 (H) 01/10/2024 FE 128 05/22/2022 TIBC 244 01/10/2024 TIBC 05/22/2022 Comment: Unable to assay. Specimen significantly hemolyzed. TRANSFERSAT 92.2 (H) 01/10/2024 TRANSFERSAT 05/22/2022 Comment: Unable to assay. Specimen significantly hemolyzed. Radiology: US Kidney 11/12/15: 1. Simple left renal cortical cyst. 2. Small to moderate post void residual (45 cc). US Retroperitoneal 10/22/16: Simple left renal cyst. Mild prostate gland enlargement with postvoid residual of 125 mL. Ultrasound of the retroperitoneum is otherwise within normal limits. MRI Lumbar 10/31/16: 1. Improvement but not resolution of discitis/osteomyelitis at the L3-4 level. No evidence of epidural or paraspinal abscess. Mild degree of edema in the left psoas muscle has slightly improved from the prior MRI. Mild disc bulging and mild degenerative facet and ligamentum flavum hypertrophy at this level cause moderate central canal stenosis with mild left foraminal narrowing. 2. Compression deformity of the inferior endplate of L3 with approximately 40% loss of central vertebral height, unchanged. There are changes of prior kyphoplasty at this level. 3. Remote postoperative changes of microdiscectomy and right hemilaminectomy at L4-5. Disc bulging, mild endplate spurring and mild degenerative facet and ligamentum flavum hypertrophy cause mild central canal stenosis, narrowing of the lateral recesses (right greater than left) and mild right foraminal narrowing, unchanged. 4. Severe degenerative disc disease at L5-S1. Disc bulging and endplate spurring cause mild narrowing of bilateral recesses with mild bilateral foraminal narrowing. XR Lumbar 10/31/16: Status post kyphoplasty at L3.No abnormal subluxation with flexion and extension. CT Brain Attack 06/24/20: 1. No CT evidence of acute intracranial abnormalities. 2. Chronic ischemic changes, as detailed above. XR Chest 06/24/20: No acute radiographic abnormality. MRI Brain/MRA Brain/Carotid 06/25/20: 1. Multiple small foci of acute ischemic infarct in the right cerebral hemisphere. Possible petechial hemorrhagic transformation involving the right caudate head ischemic infarct. 2. Mild chronic small vessel ischemic changes of the supra tentorial white matter. Mild generalized brain parenchymal volume loss. 3. origin of the right posterior cerebral artery. 4. Atherosclerotic stenosis of the bilateral proximal internal carotid arteries. Patient motion artifact limits the evaluation. Follow-up CTA neck with IV contrast or carotid artery ultrasound is suggested for further characterization. 5. MRA head and neck are otherwise unremarkable. US Carotid 06/27/20: RIGHT SIDE Common carotid artery: Patent. Internal carotid artery: 40-59% stenosis. External carotid artery: Patent. Vertebral artery: Patent and antegrade flow noted. LEFT SIDE Common carotid artery: Patent. Internal carotid artery: 20-39% stenosis. External carotid artery: Patent. Vertebral artery: Not visualized. XR Chest 11/22/20: No acute radiographic abnormality. Ct a/p 11/22/20: 1. 2.8 cm hypodense lesion within the liver. This is indeterminant and may represent a solid mass. Further assessment with contrast-enhanced CT or MRI is recommended. 2. Colonic diverticulosis without evidence of acute diverticulitis 3. Nonobstructive right renal calculus. CT a/p 04/17/21: No evidence of acute process in the abdomen and pelvis.There is a 2 mm nonobstructing right renal calculus. Colonic diverticulosis. Fat-containing ventral and left Bochdalek hernias. XR Chest 06/11/21: Chest wall soft tissue attenuation versus developing airspace disease (pneumonia, aspiration sequela etc.) in the lower lung zones. US ABD RUQ 11/24/21: 1. Hepatic steatosis. No focal hepatic lesion is seen. CT a/p 05/22/22: No acute findings in the abdomen or pelvis. No significant change since the comparison study. Diverticulosis. 2 mm nonobstructing right kidney stone. Enlarged prostate. Fat containing anterior abdominal hernia. XR Chest 06/01/23: No radiographic evidence of acute cardiopulmonary process. Mild compression deformity of lower thoracic vertebral body is age In determinant. Correlation with recent history of trauma or pain is recommended CT Brain & CTA Brain/Head 06/08/23: 1. No acute intracranial findings. Chronic changes as described. 2. No large vessel occlusion or high-grade arterial stenosis intracranially. 3. No hemodynamically significant stenosis of the extracranial carotid or vertebral artery segments. MRI Brain 06/09/23: No acute intracranial findings. Moderate diffuse parenchymal volume loss and mild sclerotic chronic microvascular ischemia. NM Cardiac Perf 06/10/23: 1. SPECT Perfusion Study: Normal. 2. There is no scintigraphic evidence for inducible ischemia. 3. No evidence of scarred myocardium. 4. Left ventricle is normal in size. The left ventricle systolic function is normal. 5. Right ventricle is normal in size. The right ventricle systolic function is normal. 6. This is a low risk scan. CT Chest 09/30/23: 1. No CT evidence of acute abnormality. 2. Soft tissues and ribs are unremarkable by CT. CT Lumbar 06/03/24: 1. No acute fracture of the lumbar spine. 2. Chronic and postsurgical findings as detailed. MRI Lumbar 06/08/24: 1. Multilevel central canal stenosis as detailed above. 2. Multilevel degenerative neural foraminal narrowing as detailed above. 3. Chronic compression deformities at the L1, L3, L4 levels. No evidence of acute lumbar spine compression fracture. 4. Prior L3 vertebroplasty. Pathology: BM biopsy 06/01/22: Variably cellular marrow with trilineage hematopoiesis and mild erythroid and megakaryocyte atypia. - Storage iron present and focally increased. The marrow is variably cellular and at least focally appears mildly increased although the biopsy is small and fragmented and suboptimal.Mild atypia is seen in the erythroids, and occasional small megakaryocytes are present. Although an early myeloid neoplasm is in the differential, this degree of atypia may be seen due to other causes including nutritional deficiencies such as vitamin B12, folate or copper, toxic exposures, autoimmune/rheumatologic etiologies, infectious etiologies, and other neoplasms.The finding of vacuolated immature erythroids in the aspirate raises the possibility of copper deficiency. Correlation with copper levels may be useful if clinically indicated.Mast cells appear increased, predominantly morphologically unremarkable. The myeloid NGS demonstrates a variant of potential clinical significance in the PPM1D gene, which raises the possibility of a clonal cytopenia of undetermined significance, although this variant is rarely germline. 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 - started on Luspatercept on 03/08/23 Still on this. Received today 06/30/24. - Started on Rytelo 01/10/24. Due again on 04/07/[address] to 5.6mg/kg C#6 completed on 06/30/24. Not sure this is helping anymore. 2) Macrocytic anemia - related to #1. 3) Fatigue - likely due to anemia. 4) DM - on insulin. - trying to get BS < 200. Plan is to initiate PRBC if needed and ideally keep Hb between 7 and 8. I would like to try Luspatercept for him to see if we can make him transfusion independent and help slow down the progression of his CCUP. Have since increased dose of Luspatercept to max 1.75mg/m2 and pt is still requiring multiple transfusions and not getting a bump in his Hb. Indications are to stop at 11.5 Hb or > 2gm/dL climb, however he is not reaching this. Continue to check labs eow per pt discussion. Will transfuse as needed. Fax note to Dr. Robertson. Discussed with pt and family about current treatment. Recommended stopping Rytelo and doing a BM Bx due to current treatment not working. Pt agreeable to plan. Last Rytelo will be today 06/30/24. Ordered BM Bx. Plan is to follow up in 4 weeks and then determine what to do next. The patient was able to ask questions and all were answered to his satisfaction. Parts of the HPI, ROS, exam and impression/plan may have been copied from my personal previous clinical note and remain pertinent. Current changes have been made and documented today. Other parts or data were deleted if not relevant for today. The documentation has been reviewed and edited as necessary to support the clinical decision making for today's visit. Transcribed by Miguelina Lin, virtual manager medical for Alka Noriega MD. I, Alka Noriega MD, personally performed the services described in this documentation. All medical record entries made by the scribe were at my direction and in my presence. I have reviewed the chart and agree that the record reflects my personal performance and is accurate and complete. Alka Noriega MD documented in this encounter [facility] 06-20-2024 Telephone encounter Note S: [facility] with complaints of a missing antihypertensive. B: Asymptomatic. Patient was in [place] [facility], and was released last night. Allergies and pharmacy, [facility] in [place], verified. A: Patient reports that while in the TCU he was discharged with an antihypertensive. Denies blurry vision or vision loss, chest pain, difficulty breathing, headache, numbness, or weakness. Has no way to check blood pressure. R: ECW Chart reviewed. Notation of GINO paperwork exists from yesterday, but no mention is made about any new medications. Patient advised that message would be sent to provider for review on Saturday regarding new medication. Home care advice reviewed with patient per protocol. Patient instructed to call back with new or worsening symptoms, with repeated emphasis on those listed above. Patient verbalizes understanding. Reason for Disposition Systolic BP >= 160 OR Diastolic >= 100 Protocols used: Blood Pressure - [id number] [facility] 06-20-2024 Miscellaneous Notes S: Patient [facility] the [facility] with complaints of a missing antihypertensive. B: Asymptomatic. Patient was in [place] [facility] unit, and was released last night. Allergies and pharmacy, [facility] [place], verified. A: Patient reports that while in the TCU he was discharged with an antihypertensive. Denies blurry vision or vision loss, chest pain, difficulty breathing, headache, numbness, or weakness. Has no way to check blood pressure. R: ECW Chart reviewed. Notation of GINO paperwork exists from yesterday, but no mention is made about any new medications. Patient advised that message would be sent to provider for review on Saturday regarding new medication. Home care advice reviewed with patient per protocol. Patient instructed to call back with new or worsening symptoms, with repeated emphasis on those listed above. Patient verbalizes understanding. Reason for Disposition Systolic BP >= 160 OR Diastolic >= 100 Protocols used: Blood Pressure - [id number] documented in this encounter [facility] 06-16-2024 Note HNO ID: [id number] Author: SETH REAGAN, DERIC Service: Nursing Author Type: Registered Nurse Type: Nursing Progress Note Filed: 06/16/2024 17:25 Note Text: Other: [facility]OM[facility] faxed back to [phone] [facility] 06-14-2024 Note [facility] 06-09-2024 Note HNO ID: [id number] Author: SETH REAGAN, DERIC Service: Nursing Author Type: Registered Nurse Type: Nursing Progress Note Filed: 06/09/2024 18:20 Note Text: Other: watched channel 95 fall safety video. Bed alarm on and call light in reach. [facility] 06-09-2024 Note HNO ID: [id number] Author: TIA KRUEGER, DERIC Service: Nursing Author Type: Registered Nurse Type: Nursing Progress Note Filed: 06/09/2024 14:46 Note Text: Other: Report called to [place] [facility] 06-08-2024 Note [facility] 06-07-2024 Note [facility] 06-07-2024 Note HNO ID: [id number] Author: KAMLA NGUYEN RN Service: Nursing Author Type: Registered Nurse Type: Progress Notes Filed: 06/07/2024 03:23 Note Text: Page sent to [facility] to notify pt BP 174/88. [facility] 06-03-2024 Note [facility] 06-02-2024 History of Presen t illness Narrative Dr. Zelaya notified of HGB 7.7 and elevated blood pressure readings, patient advised to see PCP for follow up. Ok to proceed with tx documented in this encounter [facility] 06-02-2024 Note [facility] 05-26-2024 Note [facility] 05-26-2024 History of Presen t illness Narrative Pt arrived in stable condition. VSS. Pt with SOB on exertion, noted improvement with rest. C/o extreme weakness and fatigue. After breakfast, his had to assist him with getting dressed today. PIV started to left FA, IV fluids up. Pt denies fever, chills, cough or congestion. 1st unit RBC's up as ordered. Pt verbalized understanding to notify RN of sob, chills, back pain, or itching. Will monitor throughout. 1st unit complete, 2nd unit up. Will monitor. Reblozyl injections given as ordered. Pt tolerated well, bandaids placed over injection sites. 2nd unit complete. Pt tolerated well. No complaints. No S&S transfusion reaction. VSS. PIV removed intact. Pt ambulated to [facility]. documented in this encounter [facility] 05-20-2024 Note HNO ID: [id number] Author: PHILIP ANDREA RN Service: ? Author Type: Registered Nurse Type: Progress Notes Filed: 05/20/2024 16:49 Note Text: Encounter made in error [facility] 05-20-2024 History of Presen t illness Narrative Encounter made in error documented in this encounter [facility] 05-07-2024 Note [facility] 05-07-2024 History of Presen t illness Narrative Oncology Follow Up Joss Oropeza 1945 May 05, 2024 HPI: Joss Oropeza is a 78 year old male who presents as a hospital follow up. Mr. Oropeza is a 78 year old male who presented to ER on 05/22/22 for anemia. This is a 78 year old male who presented with for low hgb from primary care office. Patient states he was 6.7 at PCP office and 6.0 at [facility]. PMHx of chronic anemia (baseline 9-11), diabetes, hepatic steatosis, CVA on ASA. He reports worsening shortness of breath over the last 1 year associated with weakness and fatigue. He denies any chest pain. He denies any overt GI bleeding, no blood or darker stool, no weight loss, no abdominal pain, no issues swallowing, and no issues with constipation or diarrhea. Reports several colonoscopies in the past with Dr. Hernandez in [place], last done July 2021 that had one polyp removed. Remote EGD. He does endorse some heartburn and reflux occasionally. He denies any NSAID use besides ASA 81 mg, no blood thinners, no smoking, and only rare alcohol use. Hgb this morning 7.2 from 5.9 s/p 1 unit of blood. Platelets low 114, and MCV elevated. Kidney function normal. Iron studies showing normal iron, ferritin elevated, folate and b12 normal. CT a/p showed no acute findings in abdomen and pelvis. VSS. GI consulted for anemia. I was asked to see him for macrocytic anemia prior to d/c. He was SOB on admission and now feels better. He received 1 unit PRBC on 05/22 and another on 05/23/22. He is very active on his tractor at home. He is a non smoker. Does not drink alcohol. No family hx of bone marrow issues. Denies any bleeding. Interval history: He presents today for rytelo and is also due for reblozyl. He is fatigued. His hemoglobin is 6.4. He feels very weak. He is set up for 2 units PRBC tomorrow in [place]. His is present with him. ACTIVE PROBLEM LIST Diastasis Recti Stroke (Cerebrum) (Hcc) Pneumonia Weakness Anemia Diabetes (Hcc) Dyslipidemia Obesity, Class I, Bmi 30-34.9 Cancer of Unknown Origin (Hcc) Platelets Decreased (Hcc) Tia (Transient Ischemic Attack) Bph (Benign Prostatic Hyperplasia) Expressive Aphasia Myelodysplastic Syndrome, Unspecified (Hcc) Symptomatic Anemia PAST SURGICAL HISTORY Procedure Laterality Date ADENOIDECTOMY PRIMARY <AGE 10 Adenoidectomy COLONOSCOPY FLX DX W/COLLJ SPEC WHEN PFRMD Colonoscopy COLONOSCOPY FLX DX W/COLLJ SPEC WHEN PFRMD Colonoscopy LAPAROSCOPY SURG CHOLECYSTECTOMY Cholecystectomy, lap PAST SURGICAL HISTORY OF 11-12 BACK SURGERY PAST SURGICAL HISTORY OF SKIN LESION--PRE CANCER SKULL PAST SURGICAL HISTORY OF SKIN LESION--SKIN CANCER LEFT HAND PICC LINE MRSA INFECTION RT/LT HEART CATHETERS CC & CA, R & L heart, NEGATIVE TONSILLECTOMY PRIMARY/SECONDARY <AGE 10 Tonsillectomy Social History Tobacco Use Smoking status: Never Smokeless tobacco: Never Vaping Use Vaping status: Never Used Substance Use Topics Alcohol use: Yes Comment: social/rare Drug use: No Review of Systems Constitutional: Positive for fatigue. Negative for chills and fever. HENT: Negative. Respiratory: Negative. Cardiovascular: Negative. Gastrointestinal: Negative. Musculoskeletal: Negative. Skin: Negative. Neurological: Positive for weakness. Hematological: Negative. Psychiatric/Behavioral: Negative. Past Plans NON-CHEMO 1 Plan Name Cycles Start Date Discontinue Date Discontinue Reason Discontinue User AMB TRANSFUSION, RED BLOOD CELLS 4 of 4 cycles started 09/12/2022 07/12/2023 Other (No activity greater than 3 months.) Homer Velarde RPh Current Outpatient Medications Medication Sig Dispense Refill aspirin 81 mg chewable tablet Take 81 mg by mouth once daily. BASAGLAR KWIKPEN U-100 INSULIN 100 unit/mL (3 mL) Inject 27 Units subcutaneously every morning. BD CRISTAL 2ND GEN PEN NEEDLE 32 gauge x /32 glimepiride (AMARYL) 4 mg tablet Take 4 mg by mouth daily with dinner. rosuvastatin (CRESTOR) 10 mg tablet Take 1 tablet by mouth daily at bedtime. 90 tablet 3 MEN'S MULTI-VITAMIN ORAL Take 1 tablet by mouth. cyanocobalamin (VITAMIN B-12) 1,000 mcg tab Take 1,000 mcg by mouth once daily. tamsulosin (FLOMAX) 0.4 mg Take 0.4 mg by mouth once daily. finasteride (PROSCAR) 5 mg tablet Take 5 mg by mouth daily at bedtime. alendronate (FOSAMAX) 70 mg tablet Take 70 mg by mouth one time a week. In AM with cup of water on empty stomach. Nothing else by mouth and stay upright for 30 min. No current facility-administered medications for this visit. ALLERGIES Allergen Reactions Maxipime [Cefepime] Unknown Hemoglobin (g/dL) Date Value 05/05/2024 6.4 HGB (g/dL) Date Value 09/01/2016 11.8 Hematocrit (%) Date Value 05/05/2024 18.5 09/01/2016 35.8 WBC Date Value 05/05/2024 4.94 k/uL 09/01/2016 6.11 thou/cmm Platelet Count Date Value 05/05/2024 53 k/uL 09/01/2016 174 thou/cmm There were no vitals taken for this visit. Last 3 Encounter BP Readings: Date: BP: 05/06/2024 175/81 05/05/2024 159/69 04/16/2024 158/78 Physical Exam Vitals and nursing note reviewed. Constitutional: General: He is not in acute distress. Appearance: Normal appearance. He is not ill-appearing. HENT: Head: Atraumatic. Cardiovascular: Rate and Rhythm: Normal rate and regular rhythm. Heart sounds: Normal heart sounds. Pulmonary: Effort: Pulmonary effort is normal. Breath sounds: Normal breath sounds. Abdominal: General: Bowel sounds are normal. There is no distension. Palpations: Abdomen is soft. Tenderness: There is no abdominal tenderness. Musculoskeletal: General: No swelling. Normal range of motion. Cervical back: Normal range of motion and neck supple. Lymphadenopathy: Cervical: No cervical adenopathy. Skin: Coloration: Skin is pale. Neurological: General: No focal deficit present. Mental Status: He is alert and oriented to person, place, and time. Cranial Nerves: No cranial nerve deficit. Psychiatric: Mood and Affect: Mood normal. Behavior: Behavior normal. Thought Content: Thought content normal. Radiology: US Kidney 11/12/15: 1. Simple left renal cortical cyst. 2. Small to moderate post void residual (45 cc). US Retroperitoneal 10/22/16: Simple left renal cyst. Mild prostate gland enlargement with postvoid residual of 125 mL. Ultrasound of the retroperitoneum is otherwise within normal limits. MRI Lumbar 10/31/16: 1. Improvement but not resolution of discitis/osteomyelitis at the L3-4 level. No evidence of epidural or paraspinal abscess. Mild degree of edema in the left psoas muscle has slightly improved from the prior MRI. Mild disc bulging and mild degenerative facet and ligamentum flavum hypertrophy at this level cause moderate central canal stenosis with mild left foraminal narrowing. 2. Compression deformity of the inferior endplate of L3 with approximately 40% loss of central vertebral height, unchanged. There are changes of prior kyphoplasty at this level. 3. Remote postoperative changes of microdiscectomy and right hemilaminectomy at L4-5. Disc bulging, mild endplate spurring and mild degenerative facet and ligamentum flavum hypertrophy cause mild central canal stenosis, narrowing of the lateral recesses (right greater than left) and mild right foraminal narrowing, unchanged. 4. Severe degenerative disc disease at L5-S1. Disc bulging and endplate spurring cause mild narrowing of bilateral recesses with mild bilateral foraminal narrowing. XR Lumbar 10/31/16: Status post kyphoplasty at L3.No abnormal subluxation with flexion and extension. CT Brain Attack 06/24/20: 1. No CT evidence of acute intracranial abnormalities. 2. Chronic ischemic changes, as detailed above. XR Chest 06/24/20: No acute radiographic abnormality. MRI Brain/MRA Brain/Carotid 06/25/20: 1. Multiple small foci of acute ischemic infarct in the right cerebral hemisphere. Possible petechial hemorrhagic transformation involving the right caudate head ischemic infarct. 2. Mild chronic small vessel ischemic changes of the supra tentorial white matter. Mild generalized brain parenchymal volume loss. 3. origin of the right posterior cerebral artery. 4. Atherosclerotic stenosis of the bilateral proximal internal carotid arteries. Patient motion artifact limits the evaluation. Follow-up CTA neck with IV contrast or carotid artery ultrasound is suggested for further characterization. 5. MRA head and neck are otherwise unremarkable. US Carotid 06/27/20: RIGHT SIDE Common carotid artery: Patent. Internal carotid artery: 40-59% stenosis. External carotid artery: Patent. Vertebral artery: Patent and antegrade flow noted. LEFT SIDE Common carotid artery: Patent. Internal carotid artery: 20-39% stenosis. External carotid artery: Patent. Vertebral artery: Not visualized. XR Chest 11/22/20: No acute radiographic abnormality. Ct a/p 11/22/20: 1. 2.8 cm hypodense lesion within the liver. This is indeterminant and may represent a solid mass. Further assessment with contrast-enhanced CT or MRI is recommended. 2. Colonic diverticulosis without evidence of acute diverticulitis 3. Nonobstructive right renal calculus. CT a/p 04/17/21: No evidence of acute process in the abdomen and pelvis.There is a 2 mm nonobstructing right renal calculus. Colonic diverticulosis. Fat-containing ventral and left Bochdalek hernias. XR Chest 06/11/21: Chest wall soft tissue attenuation versus developing airspace disease (pneumonia, aspiration sequela etc.) in the lower lung zones. US ABD RUQ 11/24/21: 1. Hepatic steatosis. No focal hepatic lesion is seen. CT a/p 05/22/22: No acute findings in the abdomen or pelvis. No significant change since the comparison study. Diverticulosis. 2 mm nonobstructing right kidney stone. Enlarged prostate. Fat containing anterior abdominal hernia. XR Chest 06/01/23: No radiographic evidence of acute cardiopulmonary process. Mild compression deformity of lower thoracic vertebral body is age In determinant. Correlation with recent history of trauma or pain is recommended CT Brain & CTA Brain/Head 06/08/23: 1. No acute intracranial findings. Chronic changes as described. 2. No large vessel occlusion or high-grade arterial stenosis intracranially. 3. No hemodynamically significant stenosis of the extracranial carotid or vertebral artery segments. MRI Brain 06/09/23: No acute intracranial findings. Moderate diffuse parenchymal volume loss and mild sclerotic chronic microvascular ischemia. NM Cardiac Perf 06/10/23: 1. SPECT Perfusion Study: Normal. 2. There is no scintigraphic evidence for inducible ischemia. 3. No evidence of scarred myocardium. 4. Left ventricle is normal in size. The left ventricle systolic function is normal. 5. Right ventricle is normal in size. The right ventricle systolic function is normal. 6. This is a low risk scan. CT Chest 09/30/23: 1. No CT evidence of acute abnormality. 2. Soft tissues and ribs are unremarkable by CT. Pathology: BM biopsy 06/01/22: Variably cellular marrow with trilineage hematopoiesis and mild erythroid and megakaryocyte atypia. - Storage iron present and focally increased. The marrow is variably cellular and at least focally appears mildly increased although the biopsy is small and fragmented and suboptimal. Mild atypia is seen in the erythroids, and occasional small megakaryocytes are present. Although an early myeloid neoplasm is in the differential, this degree of atypia may be seen due to other causes including nutritional deficiencies such as vitamin B12, folate or copper, toxic exposures, autoimmune/rheumatologic etiologies, infectious etiologies, and other neoplasms. The finding of vacuolated immature erythroids in the aspirate raises the possibility of copper deficiency. Correlation with copper levels may be useful if clinically indicated. Mast cells appear increased, predominantly morphologically unremarkable. The myeloid NGS demonstrates a variant of potential clinical significance in the PPM1D gene, which raises the possibility of a clonal cytopenia of undetermined significance, although this variant is rarely germline. 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 - Started on Rytelo with premeds 03/24/24. Per Dr. Zelaya ok to also give reblozyl today 2) Macrocytic anemia - related to #1. -very fatigued and weak: 2 units of PRBC tomorrow in [place] 3) Fatigue - likely due to anemia. See at next infusion appointment. Owen Ac APRN.ECHOCARDIOLOGIST HPI and A/P documentation from Dr. Zelaya's previous visit of 04/07/24 was copied and pasted, documentation has been reviewed and edited as necessary for today's visit. Medical Decision Making: Problems: Moderate: 1+ chronic illnesses with change Data: Unique test result(s) reviewed: 2 Risk: Moderate: Drug management High: High risk from testing/treatment Medical Decision Making Level: 4 - Moderate documented in this encounter [facility] 05-06-2024 Note [facility] 05-06-2024 History of Presen t illness Narrative Pt arrived to infusion per self. Appears weak and tired. SOB with ambulation noted. Pt reports feeling fatigued at the time unless sitting or sleeping. VSS. PIV started. Tolerated well, assessment WNL RBC's up as ordered. Pt verbalized understanding to notify RN of sob, chest pain, chills and itching. Will monitor. 1st unit complete, tolerated without incident. VSS 2nd unit up as ordered. Will monitor. 2nd unit complete. Tolerated well, VS noted. Dr. Zelaya notified of pt elevated BP. [facility], no complaints or concerns. documented in this encounter [facility] 05-05-2024 Note [facility] 05-05-2024 History of Presen t illness Narrative Dr. Zelaya notified of Hgb 6.4, Platelets 53. Ok to proceed with tx, patient will receive 2 units of PRBC 05/06/24 at [facility] documented in this encounter [facility] 04-16-2024 Note [facility] 04-16-2024 History of Presen t illness Narrative Pt arrived in good condition. SOB noted walking to the infusion chair. Pt VSS. C/o fatigue worsening today than yesterday. PIV started, tolerated well, NS up. Assessment noted. Pt denies questions or needs. 1st unit RBC's up as ordered. Pt verbalized understanding to notify RN of sob,chest pain, chills or discomfort. Will monitor. 2nd unit up tolerating well. will continue to monitor. Transfusion complete. Pt verbalized understanding to seek medical attention for fever, chills, sob, or discomfort. Pt VSS as noted BP elevated, pt denies headache or blurred vision. Repeat BP improved. Pt PIV removed, tolerated well, no concerns. Ambulated to lobby gait steady. documented in this encounter [facility] 04-15-2024 Telephone encounter Note Orders have been completed at 140pm today by Dr. Zelaya. Madison Morris MA [facility] 04-15-2024 Miscellaneous Notes Orders have been completed at 140pm today by Dr. Zelaya. Madison Morris MA Good morning, Joss has been added to the schedule at [facility] 04/16 1pm for 2 units of RBC's. The orders just need signed please. Thank you, Fabiola LEOS Want me to get him in this week if possible for transfusion? Ashley Swift RN Yes he is transfused anything less than 7. Good afternoon, Joss was in today for his Reblozyl injections today. His hgb was 6.9. He stated that he is symptomatic, feeling very fatigued, and has a hard time standing from his chair and walking across the room. I see that his last couple transfusions were for a hgb less than or equal to 6.6 but he wanted me to reach out to let you know about his hgb and see if you would like him to get a transfusion or not. Please advise. Thank you! [facility] documented in this encounter [facility] 04-15-2024 Telephone encounter Note [facility] need orders singed he is getting blood tomorrow he is 6.9 Micah Heart MA [facility] 04-15-2024 Miscellaneous Notes [facility] need orders singed he is getting blood tomorrow he is 6.9 Micah Heart MA documented in this encounter [facility] 04-15-2024 Telephone encounter Note Good morning, Joss has been added to the schedule at [facility] 04/16 1pm for 2 units of RBC's. The orders just need signed please. Thank you, Fabiola RN [facility] 04-15-2024 Telephone encounter Note Want me to get him in this week if possible for transfusion? Ashley Swift RN [facility] 04-14-2024 Telephone encounter Note Yes he is transfused anything less than 7. [facility] 04-14-2024 Note [facility] 04-14-2024 History of Presen t illness Narrative Pt arrived to infusion, slow and steady gate. Pt c/o fatigue, states difficulty getting up from chair and walking across the room at home. Pt denies recent fever, chills, cold/flu-like symptoms. VSS. Labs drawn per order. Labs within treatment parameters. Reblozyl injections given per order. No S&S distress, VS noted. Plan reviewed with patient. Per pt request, RN to communicate with MD concerning Hgb level. Pt exited to [facility]. documented in this encounter [facility] 04-14-2024 Telephone encounter Note Good afternoon, Joss was in today for his Reblozyl injections today. His hgb was 6.9. He stated that he is symptomatic, feeling very fatigued, and has a hard time standing from his chair and walking across the room. I see that his last couple transfusions were for a hgb less than or equal to 6.6 but he wanted me to reach out to let you know about his hgb and see if you would like him to get a transfusion or not. Please advise. Thank you! [facility] 04-07-2024 History of Presen t illness Narrative Joss Oropeza 1945 April 07, 2024 HPI: Joss Oropeza is a 78 year old male who presents as a hospital follow up. Mr. Oropeza is a 78 year old male who presented to ER on 05/22/22 for anemia. This is a 78 year old male who presented with for low hgb from primary care office. Patient states he was 6.7 at PCP office and 6.0 at [facility]. PMHx of chronic anemia (baseline 9-11), diabetes, hepatic steatosis, CVA on ASA. He reports worsening shortness of breath over the last 1 year associated with weakness and fatigue. He denies any chest pain. He denies any overt GI bleeding, no blood or darker stool, no weight loss, no abdominal pain, no issues swallowing, and no issues with constipation or diarrhea. Reports several colonoscopies in the past with Dr. Hernandez in [place], last done July 2021 that had one polyp removed. Remote EGD. He does endorse some heartburn and reflux occasionally. He denies any NSAID use besides ASA 81 mg, no blood thinners, no smoking, and only rare alcohol use. Hgb this morning 7.2 from 5.9 s/p 1 unit of blood. Platelets low 114, and MCV elevated. Kidney function normal. Iron studies showing normal iron, ferritin elevated, folate and b12 normal. CT a/p showed no acute findings in abdomen and pelvis. VSS. GI consulted for anemia. I was asked to see him for macrocytic anemia prior to d/c. He was SOB on admission and now feels better. He received 1 unit PRBC on 05/22 and another on 05/23/22. He is very active on his tractor at home. He is a non smoker. Does not drink alcohol. No family hx of bone marrow issues. Denies any bleeding. Interval history: Today he is here for follow up for a reduced dose of Rytelo C#3. Remains on Rytelo per scheduling. Not as fatigued. Taking insulin daily. Just had it doubled to 25 units per day. Has made some progress getting to <200. - 03/11/24 glucose level of 219. - 03/06/24 glucose level 216. - 03/05/24 glucose level 255. No major changes. With today. Does get some therapy and transfusions at [facility] closer to home. 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 PAST SURGICAL HISTORY Procedure Laterality Date ADENOIDECTOMY PRIMARY <AGE 12 Adenoidectomy COLONOSCOPY FLX DX W/COLLJ SPEC WHEN PFRMD Colonoscopy COLONOSCOPY FLX DX W/COLLJ SPEC WHEN PFRMD Colonoscopy LAPAROSCOPY SURG CHOLECYSTECTOMY Cholecystectomy, lap PAST SURGICAL HISTORY OF 11-22-12 BACK SURGERY PAST SURGICAL HISTORY OF SKIN LESION--PRE CANCER SKULL PAST SURGICAL HISTORY OF SKIN LESION--SKIN CANCER LEFT HAND PICC LINE MRSA INFECTION RT/LT HEART CATHETERS CC & CA, R & L heart, NEGATIVE TONSILLECTOMY PRIMARY/SECONDARY <AGE 10 Tonsillectomy Current Outpatient Medications Medication Sig Dispense Refill aspirin 81 mg chewable tablet Take 81 mg by mouth once daily. BASAGLAR KWIKPEN U-100 INSULIN 100 unit/mL (3 mL) Inject 27 Units subcutaneously every morning. BD CRISTAL 2ND GEN PEN NEEDLE 32 gauge x glimepiride (AMARYL) 4 mg tablet Take 4 mg by mouth daily with dinner. rosuvastatin (CRESTOR) 10 mg tablet Take 1 tablet by mouth daily at bedtime. 90 tablet 3 MEN'S MULTI-VITAMIN ORAL Take 1 tablet by mouth. cyanocobalamin (VITAMIN B-12) 1,000 mcg tab Take 1,000 mcg by mouth once daily. tamsulosin (FLOMAX) 0.4 mg Take 0.4 mg by mouth once daily. finasteride (PROSCAR) 5 mg tablet Take 5 mg by mouth daily at bedtime. alendronate (FOSAMAX) 70 mg tablet Take 70 mg by mouth one time a week. In AM with cup of water on empty stomach. Nothing else by mouth and stay upright for 30 min. No current facility-administered medications for this visit. Facility-Administered Medications Ordered in Other Visits Medication Dose Route Frequency Provider Last Rate Last Admin imetelstat 543.76 mg in NaCl 0.9% 500 mL (RYTELO) 5.6 mg/kg/dose (Treatment Plan Recorded) INTRAVENOUS ONCE Alka Noriega MD NaCl 0.9% iv infusion 500-999 mL/hr INTRAVENOUS PRN Alka Noriega MD diphenhydrAMINE 50 mg injection (BENADRYL) 50 mg INTRAVENOUS PRN Alka Noriega MD hydrocortisone sodium succinate (PF) 100 mg injection (Solu-CORTEF) 100 mg INTRAVENOUS PRN Alka Noriega MD EPINEPHrine HCl (PF) 1 mg/mL (1 mL) 0.3 mg injection 0.3 mg INTRAMUSCULAR PRN Alka Noriega MD ALLERGIES Allergen Reactions Maxipime [Cefepime] Unknown FAMILY HISTORY Problem Relation Age of Onset Stroke Mother Ischemic Heart Disease Father Social History Tobacco Use Smoking status: Never Smokeless tobacco: Never Vaping Use Vaping status: Never Used Substance Use Topics Alcohol use: Yes Comment: social/rare Drug use: No I have reviewed the PMHx, PSHx, social history and ROS on April 07, 2024 - all new information noted. Review of Systems: Constitutional: No fevers, chills, drenching night sweats or unintentional weight loss. Color to cheeks. +fatigue. HEENT: No yellowing of the eyes, no vision changes, no hearing loss or ear pain, no nosebleeds or drainage, no sore throat. Neck: No complaints. Chest: No SOB or cough, +occasional [place], no hemoptysis, no wheezing. Breast: No complaints. Heart: No chest pain, pressure or tightness. No racing heartbeat. Abdominal: No pain or difficulty with swallowing, no N/V, no early satiety, no abdominal pain or bloating, no diarrhea or constipation, no change in bowel habits, no blood in the urine. Genitourinary: No pain or burning with urination, no incontinence, no blood in the urine. Extremities: no pain or swelling. Neurological: No headaches, no numbness or tingling in the extremities, no double vision. Skin: No rashes or ulcerations, no change in pigmentation. Nodes: no enlargement per patient. Heme: No easy bruising or bleeding, no yellowing of the eyes or darkening of urine. Psychiatric: no anxiety or depression. Immunologic: No recurrent or persistent infections of the sinuses, lungs or urinary tract. Endocrine: No hair or nail changes, no polyuria, polydipsia, or polyphagia. Appetite normal. I have performed the physical exam on April 07, 2024 - all new findings noted below. Physical Exam: There were no vitals taken for this visit. Trending of last 3 clinical abnormalities associated with Severe Sepsis or Septic Shock 04/07/2024 1158 04/07/2024 1322 04/07/2024 1600 Temp: 36.3 C (97.3 F) -- -- Pulse: 81 66 76 Resp: 18 -- -- BP: 150/54 152/61 187/76 O2 Sat: -- 97 % -- Last Wt 04/07/24 : 100.7 kg (221 lb 14.3 oz) 03/24/24 : 100.1 kg (220 lb 10.9 oz) 03/13/24 : 99.8 kg (220 lb) 03/05/24 : 97.6 kg (215 lb 2.7 oz) 02/07/24 : 98.6 kg (217 lb 6 oz) Last 1 Encounter Ht Readings: Date: Ht: 04/07/2024 175.3 cm (5' 9.02) ECOG PS: 0-1 Pain Intensity: 0/10 General: Age-appropriate well developed. Appears well. Fatigued. HEENT: Normocephalic, no sclera icterus, external ears normal, oral cavity clear. Neck: Supple, no thyroid nodules, no JVD. Chest: Clear bilaterally, no wheezes, not labored. Heart: Normal S1 and S2, no abnormal sounds, peripheral pulses synchronized. +murmur grade 1/6 Abdomen: Soft, nontender, nondistended, bowel sounds present, no organomegaly or mass, no rigidity. /Rectal: deferred Extremities: No cyanosis, clubbing, gross deformities, or palpable cords. Neurological: Cranial nerves II through XII are intact bilaterally, strength normal in the upper and lower extremities, no focal deficits. Skin: Warm and dry with no rashes or ulcerations. Nodes: No palpable adenopathy in the cervical, supraclavicular, infraclavicular, or axillary regions. Hematologic: no bruising or petechiae. Psychiatric: Alert and oriented x3. Emotional well-being assessment was performed. Pt denies depression, distress, and or problems with coping or adjustment. Labs CBC: Recent Labs 04/07/24 1207 WBC 5.78 HB 8.0* HCT 23.7* PLT 97* MCV 87.8 RDWCV 17.0* NEUTP 58.8 ABSNEUT 3.40 LYMPHP 32.9 MONOP 7.1 EODINP 0.2 COAG: No results for input(s): APTT, INR in the last 168 hours. BMP: Recent Labs 04/07/24 1207 GLUC 296* NA 136 K 4.3 CHLOR 101 CO2 24 ANION 11 BUN 21 CREAT 0.89 CHEM: Recent Labs 04/07/24 1207 ALB 4.1 TPROT 6.9 CA 9.5 Lab Results Component Value Date MURRAY 1,130.0 (H) 01/10/2024 MURRAY 869.8 (H) 05/22/2022 IRON Lab Results Component Value Date FE 225 (H) 01/10/2024 FE 128 05/22/2022 TIBC Lab Results Component Value Date TIBC 244 01/10/2024 TIBC 05/22/2022 Comment: Unable to assay. Specimen significantly hemolyzed. FOLATE Lab Results Component Value Date FOLATE >20.0 05/23/2022 Lab Results Component Value Date RETICP 1.8 07/03/2022 ABSRETIC 0.037 07/03/2022 MURRAY 1,130.0 (H) 01/10/2024 MURRAY 869.8 (H) 05/22/2022 FE 225 (H) 01/10/2024 FE 128 05/22/2022 TIBC 244 01/10/2024 TIBC 05/22/2022 Comment: Unable to assay. Specimen significantly hemolyzed. TRANSFERSAT 92.2 (H) 01/10/2024 TRANSFERSAT 05/22/2022 Comment: Unable to assay. Specimen significantly hemolyzed. Radiology: US Kidney 11/12/15: 1. Simple left renal cortical cyst. 2. Small to moderate post void residual (45 cc). US Retroperitoneal 10/22/16: Simple left renal cyst. Mild prostate gland enlargement with postvoid residual of 125 mL. Ultrasound of the retroperitoneum is otherwise within normal limits. MRI Lumbar 10/31/16: 1. Improvement but not resolution of discitis/osteomyelitis at the L3-4 level. No evidence of epidural or paraspinal abscess. Mild degree of edema in the left psoas muscle has slightly improved from the prior MRI. Mild disc bulging and mild degenerative facet and ligamentum flavum hypertrophy at this level cause moderate central canal stenosis with mild left foraminal narrowing. 2. Compression deformity of the inferior endplate of L3 with approximately 40% loss of central vertebral height, unchanged. There are changes of prior kyphoplasty at this level. 3. Remote postoperative changes of microdiscectomy and right hemilaminectomy at L4-5. Disc bulging, mild endplate spurring and mild degenerative facet and ligamentum flavum hypertrophy cause mild central canal stenosis, narrowing of the lateral recesses (right greater than left) and mild right foraminal narrowing, unchanged. 4. Severe degenerative disc disease at L5-S1. Disc bulging and endplate spurring cause mild narrowing of bilateral recesses with mild bilateral foraminal narrowing. XR Lumbar 10/31/16: Status post kyphoplasty at L3.No abnormal subluxation with flexion and extension. CT Brain Attack 06/24/20: 1. No CT evidence of acute intracranial abnormalities. 2. Chronic ischemic changes, as detailed above. XR Chest 06/24/20: No acute radiographic abnormality. MRI Brain/MRA Brain/Carotid 06/25/20: 1. Multiple small foci of acute ischemic infarct in the right cerebral hemisphere. Possible petechial hemorrhagic transformation involving the right caudate head ischemic infarct. 2. Mild chronic small vessel ischemic changes of the supra tentorial white matter. Mild generalized brain parenchymal volume loss. 3. origin of the right posterior cerebral artery. 4. Atherosclerotic stenosis of the bilateral proximal internal carotid arteries. Patient motion artifact limits the evaluation. Follow-up CTA neck with IV contrast or carotid artery ultrasound is suggested for further characterization. 5. MRA head and neck are otherwise unremarkable. US Carotid 06/27/20: RIGHT SIDE Common carotid artery: Patent. Internal carotid artery: 40-59% stenosis. External carotid artery: Patent. Vertebral artery: Patent and antegrade flow noted. LEFT SIDE Common carotid artery: Patent. Internal carotid artery: 20-39% stenosis. External carotid artery: Patent. Vertebral artery: Not visualized. XR Chest 11/22/20: No acute radiographic abnormality. Ct a/p 11/22/20: 1. 2.8 cm hypodense lesion within the liver. This is indeterminant and may represent a solid mass. Further assessment with contrast-enhanced CT or MRI is recommended. 2. Colonic diverticulosis without evidence of acute diverticulitis 3. Nonobstructive right renal calculus. CT a/p 04/17/21: No evidence of acute process in the abdomen and pelvis.There is a 2 mm nonobstructing right renal calculus. Colonic diverticulosis. Fat-containing ventral and left Bochdalek hernias. XR Chest 06/11/21: Chest wall soft tissue attenuation versus developing airspace disease (pneumonia, aspiration sequela etc.) in the lower lung zones. US ABD RUQ 11/24/21: 1. Hepatic steatosis. No focal hepatic lesion is seen. CT a/p 05/22/22: No acute findings in the abdomen or pelvis. No significant change since the comparison study. Diverticulosis. 2 mm nonobstructing right kidney stone. Enlarged prostate. Fat containing anterior abdominal hernia. XR Chest 06/01/23: No radiographic evidence of acute cardiopulmonary process. Mild compression deformity of lower thoracic vertebral body is age In determinant. Correlation with recent history of trauma or pain is recommended CT Brain & CTA Brain/Head 06/08/23: 1. No acute intracranial findings. Chronic changes as described. 2. No large vessel occlusion or high-grade arterial stenosis intracranially. 3. No hemodynamically significant stenosis of the extracranial carotid or vertebral artery segments. MRI Brain 06/09/23: No acute intracranial findings. Moderate diffuse parenchymal volume loss and mild sclerotic chronic microvascular ischemia. NM Cardiac Perf 06/10/23: 1. SPECT Perfusion Study: Normal. 2. There is no scintigraphic evidence for inducible ischemia. 3. No evidence of scarred myocardium. 4. Left ventricle is normal in size. The left ventricle systolic function is normal. 5. Right ventricle is normal in size. The right ventricle systolic function is normal. 6. This is a low risk scan. CT Chest 09/30/23: 1. No CT evidence of acute abnormality. 2. Soft tissues and ribs are unremarkable by CT. Pathology: BM biopsy 06/01/22: Variably cellular marrow with trilineage hematopoiesis and mild erythroid and megakaryocyte atypia. - Storage iron present and focally increased. The marrow is variably cellular and at least focally appears mildly increased although the biopsy is small and fragmented and suboptimal. Mild atypia is seen in the erythroids, and occasional small megakaryocytes are present. Although an early myeloid neoplasm is in the differential, this degree of atypia may be seen due to other causes including nutritional deficiencies such as vitamin B12, folate or copper, toxic exposures, autoimmune/rheumatologic etiologies, infectious etiologies, and other neoplasms. The finding of vacuolated immature erythroids in the aspirate raises the possibility of copper deficiency. Correlation with copper levels may be useful if clinically indicated. Mast cells appear increased, predominantly morphologically unremarkable. The myeloid NGS demonstrates a variant of potential clinical significance in the PPM1D gene, which raises the possibility of a clonal cytopenia of undetermined significance, although this variant is rarely germline. 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 - started on Luspatercept on 03/08/23 - Started on Rytelo 01/10/24. Due again on 04/07/[address] to 5.6mg/kg 2) Macrocytic anemia - related to #1. 3) Fatigue - likely due to anemia. 4) DM - on insulin. - trying to get BS < 200. Plan is to initiate PRBC if needed and ideally keep Hb between 7 and 8. I would like to try Luspatercept for him to see if we can make him transfusion independent and help slow down the progression of his CCUP. Have since increased dose of Luspatercept to max 1.75mg/m2 and pt is still requiring multiple transfusions and not getting a bump in his Hb. Indications are to stop at 11.5 Hb or > 2gm/dL climb, however he is not reaching this. Continue to check labs eow per pt discussion. Plan is to follow up in 3-6 weeks. Will transfuse as needed. The patient was able to ask questions and all were answered to his satisfaction. Fax note to Dr. Robertson. Parts of the HPI, ROS, exam and impression/plan may have been copied from my personal previous clinical note and remain pertinent. Current changes have been made and documented today. Other parts or data were deleted if not relevant for today. The documentation has been reviewed and edited as necessary to support the clinical decision making for today's visit. Transcribed by Rin Gonsalves & Miguelina Lin, virtual manager medical for Alka Noriega MD. I, Alka Noriega MD, personally performed the services described in this documentation. All medical record entries made by the scribe were at my direction and in my presence. I have reviewed the chart and agree that the record reflects my personal performance and is accurate and complete. Alka Noriega MD documented in this encounter [facility] 04-07-2024 Note [facility] 03-25-2024 Note [facility] 03-25-2024 History of Presen t illness Narrative Pt arrived to infusion. Appears well, states fatigue improved from yesterday. VSS. PIV placed without difficulty. NS started. Denies fever, chills, sob, cough and congestion. RBC's up as ordered. Pt verbalized understanding to notify RN of sob, chills, itching or discomfort. Will monitor. Transfusion complete. Tolerated well, no S&S distress. VS noted. PIV removed. Pt denies questions, ambulated to lobby. No concerns documented in this encounter [facility] 03-24-2024 History of Presen t illness Narrative Joss Oropeza 1945 March 24, 2024 HPI: Joss Oropeza is a 78 year old male who presents as a hospital follow up. Mr. Oropeza is a 78 year old male who presented to ER on 05/22/22 for anemia. This is a 78 year old male who presented with for low hgb from primary care office. Patient states he was 6.7 at PCP office and 6.0 at [facility]. PMHx of chronic anemia (baseline 9-11), diabetes, hepatic steatosis, CVA on ASA. He reports worsening shortness of breath over the last 1 year associated with weakness and fatigue. He denies any chest pain. He denies any overt GI bleeding, no blood or darker stool, no weight loss, no abdominal pain, no issues swallowing, and no issues with constipation or diarrhea. Reports several colonoscopies in the past with Dr. Hernandez in [place], last done July 2021 that had one polyp removed. Remote EGD. He does endorse some heartburn and reflux occasionally. He denies any NSAID use besides ASA 81 mg, no blood thinners, no smoking, and only rare alcohol use. Hgb this morning 7.2 from 5.9 s/p 1 unit of blood. Platelets low 114, and MCV elevated. Kidney function normal. Iron studies showing normal iron, ferritin elevated, folate and b12 normal. CT a/p showed no acute findings in abdomen and pelvis. VSS. GI consulted for anemia. I was asked to see him for macrocytic anemia prior to d/c. He was SOB on admission and now feels better. He received 1 unit PRBC on 05/22 and another on 05/23/22. He is very active on his tractor at home. He is a non smoker. Does not drink alcohol. No family hx of bone marrow issues. Denies any bleeding. Interval history: Today he is here for follow up. Remains on Rytelo per scheduling and Luspatercept. Fatigued and tired all the time. Taking insulin daily. Just had it doubled to 25 units per day. Has made some progress getting to <200. - 03/11/24 glucose level of 219. - 03/06/24 glucose level 216. - 03/05/24 glucose level 255. No major changes. 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 PAST SURGICAL HISTORY Procedure Laterality Date ADENOIDECTOMY PRIMARY <AGE 10 Adenoidectomy COLONOSCOPY FLX DX W/COLLJ SPEC WHEN PFRMD Colonoscopy COLONOSCOPY FLX DX W/COLLJ SPEC WHEN PFRMD Colonoscopy LAPAROSCOPY SURG CHOLECYSTECTOMY Cholecystectomy, lap PAST SURGICAL HISTORY OF 11-22-12 BACK SURGERY PAST SURGICAL HISTORY OF SKIN LESION--PRE CANCER SKULL PAST SURGICAL HISTORY OF SKIN LESION--SKIN CANCER LEFT HAND PICC LINE MRSA INFECTION RT/LT HEART CATHETERS CC & CA, R & L heart, NEGATIVE TONSILLECTOMY PRIMARY/SECONDARY <AGE 10 Tonsillectomy Current Outpatient Medications Medication Sig Dispense Refill aspirin 81 mg chewable tablet Take 81 mg by mouth once daily. IFTIKHAR VAZQUEZ U-100 INSULIN 100 unit/mL (3 mL) Inject 27 Units subcutaneously every morning. BD CRISTAL 2ND GEN PEN NEEDLE 32 gauge x glimepiride (AMARYL) 4 mg tablet Take 4 mg by mouth daily with dinner. rosuvastatin (CRESTOR) 10 mg tablet Take 1 tablet by mouth daily at bedtime. 90 tablet 3 MEN'S MULTI-VITAMIN ORAL Take 1 tablet by mouth. cyanocobalamin (VITAMIN B-12) 1,000 mcg tab Take 1,000 mcg by mouth once daily. tamsulosin (FLOMAX) 0.4 mg Take 0.4 mg by mouth once daily. finasteride (PROSCAR) 5 mg tablet Take 5 mg by mouth daily at bedtime. alendronate (FOSAMAX) 70 mg tablet Take 70 mg by mouth one time a week. In AM with cup of water on empty stomach. Nothing else by mouth and stay upright for 30 min. (Patient not taking: Reported on 03/13/2024) No current facility-administered medications for this visit. ALLERGIES Allergen Reactions Maxipime [Cefepime] Unknown FAMILY HISTORY Problem Relation Age of Onset Stroke Mother Ischemic Heart Disease Father Social History Tobacco Use Smoking status: Never Smokeless tobacco: Never Vaping Use Vaping status: Never Used Substance Use Topics Alcohol use: Yes Comment: social/rare Drug use: No I have reviewed the PMHx, PSHx, social history and ROS on March 24, 2024 - all new information noted. Review of Systems: Constitutional: No fevers, chills, drenching night sweats or unintentional weight loss. +fatigue. HEENT: No yellowing of the eyes, no vision changes, no hearing loss or ear pain, no nosebleeds or drainage, no sore throat. Neck: No complaints. Chest: No SOB or cough, +occasional [place], no hemoptysis, no wheezing. Breast: No complaints. Heart: No chest pain, pressure or tightness. No racing heartbeat. Abdominal: No pain or difficulty with swallowing, no N/V, no early satiety, no abdominal pain or bloating, no diarrhea or constipation, no change in bowel habits, no blood in the urine. Genitourinary: No pain or burning with urination, no incontinence, no blood in the urine. Extremities: no pain or swelling. Neurological: No headaches, no numbness or tingling in the extremities, no double vision. Skin: No rashes or ulcerations, no change in pigmentation. Nodes: no enlargement per patient. Heme: No easy bruising or bleeding, no yellowing of the eyes or darkening of urine. Psychiatric: no anxiety or depression. Immunologic: No recurrent or persistent infections of the sinuses, lungs or urinary tract. Endocrine: No hair or nail changes, no polyuria, polydipsia, or polyphagia. Appetite normal. I have performed the physical exam on March 24, 2024 - all new findings noted below. Physical Exam: Ht 175.3 cm (5' 9) BMI 32.59 kg/m Trending of last 3 clinical abnormalities associated with Severe Sepsis or Septic Shock 03/24/2024 1513 03/24/2024 1532 03/24/2024 1626 Temp: 36.4 C (97.5 F) 36.3 C (97.3 F) 36.3 C (97.3 F) Pulse: 89 68 68 Resp: 18 18 18 BP: 119/56 129/54 146/70 ECOG PS: 0 Pain Intensity: 0/10 General: Age-appropriate well developed. Appears well. Fatigued. HEENT: Normocephalic, no sclera icterus, external ears normal, oral cavity clear. Neck: Supple, no thyroid nodules, no JVD. Chest: Clear bilaterally, no wheezes, not labored. Heart: Normal S1 and S2, no abnormal sounds, peripheral pulses synchronized. +murmur grade 1/6 Abdomen: Soft, nontender, nondistended, bowel sounds present, no organomegaly or mass, no rigidity. /Rectal: deferred Extremities: No cyanosis, clubbing, gross deformities, or palpable cords. Neurological: Cranial nerves II through XII are intact bilaterally, strength normal in the upper and lower extremities, no focal deficits. Skin: Warm and dry with no rashes or ulcerations. Nodes: No palpable adenopathy in the cervical, supraclavicular, infraclavicular, or axillary regions. Hematologic: no bruising or petechiae. Psychiatric: Alert and oriented x3. Emotional well-being assessment was performed. Pt denies depression, distress, and or problems with coping or adjustment. Labs CBC: No results for input(s): WBC, HB, HCT, PLT, MCV, RDWCV, NEUTP, ABSNEUT, LYMPHP, MONOP, EODINP in the last 168 hours. COAG: No results for input(s): APTT, INR in the last 168 hours. BMP: No results for input(s): GLUC, NA, K, CHLOR, CO2, ANION, BUN, CREAT in the last 168 hours. CHEM: No results for input(s): ALB, TPROT, CA, MG in the last 168 hours. Infusion Center on 03/24/2024 Component Date Value Product Code 03/23/2024 [id number] Product Identification 03/23/2024 Red Blood Cells Status Information 03/23/2024 Transfused Product Expiration Date 03/23/2024 04/19/2024 23:59 Unit Number 03/23/2024 [id number] Unit Blood Type 03/23/2024 B Pos XM RESULT 03/23/2024 Compatible Issue Date/Time 03/23/2024 03/24/2024 14:54 Type and Screen Expirati* 03/23/2024 03/27/2024 23:59 Product Code 03/23/2024 [id number] Product Identification 03/23/2024 Red Blood Cells Status Information 03/23/2024 Transfused Product Expiration Date 03/23/2024 04/17/2024 23:59 Unit Number 03/23/2024 [id number] Unit Blood Type 03/23/2024 O Pos XM RESULT 03/23/2024 Compatible Issue Date/Time 03/23/2024 03/25/2024 13:10 Type and Screen Expirati* 03/23/2024 03/27/2024 23:59 Appointment on 03/24/2024 Component Date Value WBC 03/24/2024 6.35 RBC 03/24/2024 2.02 (L) Hemoglobin 03/24/2024 6.4 (L) Hematocrit 03/24/2024 19.5 (L) MCV 03/24/2024 96.5 MCH 03/24/2024 31.7 MCHC 03/24/2024 32.8 RDW-CV 03/24/2024 19.3 (H) Platelet Count 03/24/2024 93 (L) MPV 03/24/2024 10.9 Neutrophils % 03/24/2024 58.3 Abs Neut 03/24/2024 3.71 Lymphocytes % 03/24/2024 32.8 Abs Lymph 03/24/2024 2.08 Monocytes % 03/24/2024 7.9 Abs [place] 03/24/2024 0.50 Eosinophils % 03/24/2024 0.3 Abs Eosin 03/24/2024 <0.03 Basophils % 03/24/2024 0.2 Abs Baso 03/24/2024 <0.03 Immature Granulocytes % 03/24/2024 0.5 Abs Immature Gran 03/24/2024 0.03 NRBC 03/24/2024 0.3 Absolute nRBC 03/24/2024 0.02 (H) Diff Type 03/24/2024 Auto ABO 03/24/2024 B Rh(D) 03/24/2024 Positive Antibody Screen 03/24/2024 Negative Type and Screen Expirati* 03/24/2024 03/27/2024 23:59 Appointment on 03/11/2024 Component Date Value Protein, Total 03/11/2024 7.1 Albumin 03/11/2024 3.9 Calcium, Total 03/11/2024 9.8 Bilirubin, Total 03/11/2024 0.2 Alkaline Phosphatase 03/11/2024 74 AST 03/11/2024 22 ALT 03/11/2024 16 Glucose 03/11/2024 219 (H) BUN 03/11/2024 19 Creatinine 03/11/2024 0.90 Sodium 03/11/2024 133 (L) Potassium 03/11/2024 4.5 Chloride 03/11/2024 100 CO2 03/11/2024 22 Anion Gap 03/11/2024 11 Estimated Glomerular Jim* 03/11/2024 86 WBC 03/11/2024 6.47 RBC 03/11/2024 2.59 (L) Hemoglobin 03/11/2024 8.1 (L) Hematocrit 03/11/2024 25.1 (L) MCV 03/11/2024 96.9 MCH 03/11/2024 31.3 MCHC 03/11/2024 32.3 RDW-CV 03/11/2024 19.8 (H) Platelet Count 03/11/2024 86 (L) MPV 03/11/2024 11.7 Neutrophils % 03/11/2024 51.5 Abs Neut 03/11/2024 3.34 Lymphocytes % 03/11/2024 39.4 Abs Lymph 03/11/2024 2.55 Monocytes % 03/11/2024 8.2 Abs [place] 03/11/2024 0.53 Eosinophils % 03/11/2024 0.2 Abs Eosin 03/11/2024 <0.03 Basophils % 03/11/2024 0.5 Abs Baso 03/11/2024 0.03 Immature Granulocytes % 03/11/2024 0.2 Abs Immature Gran 03/11/2024 <0.03 Diff Type 03/11/2024 Auto ABO 03/11/2024 B Rh(D) 03/11/2024 Positive Antibody Screen 03/11/2024 Negative Type and Screen Expirati* 03/11/2024 03/14/2024 23:59 Admission on 03/05/2024, Discharged on 03/06/2024 Component Date Value Ventricular Rate 03/05/2024 73 Atrial Rate 03/05/2024 73 P-R Interval 03/05/2024 170 QRS Duration 03/05/2024 86 QT Interval 03/05/2024 408 QTC Calculation ([place]) 03/05/2024 449 Calculated P [place] 03/05/2024 15 Calculated R [place] 03/05/2024 42 Calculated T [place] 03/05/2024 79 ABO 03/05/2024 B Rh(D) 03/05/2024 Positive Antibody Screen 03/05/2024 Negative Type and Screen Expirati* 03/05/2024 03/08/2024 23:59 WBC 03/05/2024 4.11 RBC 03/05/2024 1.72 (L) Hemoglobin 03/05/2024 5.7 (LL) Hematocrit 03/05/2024 17.7 (L) MCV 03/05/2024 102.9 (H) MCH 03/05/2024 33.1 MCHC 03/05/2024 32.2 RDW-CV 03/05/2024 19.8 (H) Platelet Count 03/05/2024 69 (L) MPV 03/05/2024 11.5 Protein, Total 03/05/2024 6.6 Albumin 03/05/2024 3.7 (L) Calcium, Total 03/05/2024 9.2 Bilirubin, Total 03/05/2024 0.2 Alkaline Phosphatase 03/05/2024 70 AST 03/05/2024 17 ALT 03/05/2024 14 Glucose 03/05/2024 255 (H) BUN 03/05/2024 22 Creatinine 03/05/2024 0.87 Sodium 03/05/2024 135 (L) Potassium 03/05/2024 4.2 Chloride 03/05/2024 100 CO2 03/05/2024 20 (L) Anion Gap 03/05/2024 15 Estimated Glomerular Jim* 03/05/2024 87 Product Code 03/05/2024 [id number] Product Identification 03/05/2024 Red Blood Cells Status Information 03/05/2024 Transfused Product Expiration Date 03/05/2024 03/31/2024 23:59 Unit Number 03/05/2024 [id number] Unit Blood Type 03/05/2024 B Pos XM RESULT 03/05/2024 Compatible Product Code 03/05/2024 [id number] Product Identification 03/05/2024 Red Blood Cells Status Information 03/05/2024 Transfused Product Expiration Date 03/05/2024 03/20/2024 23:59 Unit Number 03/05/2024 [id number] Unit Blood Type 03/05/2024 B Pos XM RESULT 03/05/2024 Compatible Issue Date/Time 03/05/2024 03/06/2024 04:46 Type and Screen Expirati* 03/05/2024 03/08/2024 23:59 Issue Date/Time 03/05/2024 03/06/2024 08:19 Type and Screen Expirati* 03/05/2024 03/08/2024 23:59 WBC 03/06/2024 4.20 RBC 03/06/2024 1.69 (L) Hemoglobin 03/06/2024 5.8 (LL) Hematocrit 03/06/2024 17.5 (L) MCV 03/06/2024 103.6 (H) MCH 03/06/2024 34.3 (H) MCHC 03/06/2024 33.1 RDW-CV 03/06/2024 19.6 (H) Platelet Count 03/06/2024 68 (L) MPV 03/06/2024 11.8 Glucose 03/06/2024 216 (H) BUN 03/06/2024 19 Creatinine 03/06/2024 0.84 Sodium 03/06/2024 138 Potassium 03/06/2024 4.2 Chloride 03/06/2024 105 CO2 03/06/2024 21 (L) Anion Gap 03/06/2024 12 Calcium, Total 03/06/2024 9.0 Estimated Glomerular Jim* 03/06/2024 88 Magnesium 03/06/2024 1.7 Glucose, Point of Care 03/05/2024 263 (A) Glucose, Point of Care 03/05/2024 393 (A) Glucose, Point of Care 03/06/2024 249 (A) WBC 03/06/2024 5.48 RBC 03/06/2024 2.70 (L) Hemoglobin 03/06/2024 8.5 (L) Hematocrit 03/06/2024 25.5 (L) MCV 03/06/2024 94.4 MCH 03/06/2024 31.5 MCHC 03/06/2024 33.3 RDW-CV 03/06/2024 21.3 (H) Platelet Count 03/06/2024 66 (L) MPV 03/06/2024 10.3 Glucose, Point of Care 03/06/2024 245 (A) Lab Results Component Value Date MURRAY 1,130.0 (H) 01/10/2024 MURRAY 869.8 (H) 05/22/2022 IRON Lab Results Component Value Date FE 225 (H) 01/10/2024 FE 128 05/22/2022 TIBC Lab Results Component Value Date TIBC 244 01/10/2024 TIBC 05/22/2022 Comment: Unable to assay. Specimen significantly hemolyzed. FOLATE Lab Results Component Value Date FOLATE >20.0 05/23/2022 Lab Results Component Value Date RETICP 1.8 07/03/2022 ABSRETIC 0.037 07/03/2022 MURRAY 1,130.0 (H) 01/10/2024 MURRAY 869.8 (H) 05/22/2022 FE 225 (H) 01/10/2024 FE 128 05/22/2022 TIBC 244 01/10/2024 TIBC 05/22/2022 Comment: Unable to assay. Specimen significantly hemolyzed. TRANSFERSAT 92.2 (H) 01/10/2024 TRANSFERSAT 05/22/2022 Comment: Unable to assay. Specimen significantly hemolyzed. Radiology: Pathology: BM biopsy 06/01/22: Variably cellular marrow with trilineage hematopoiesis and mild erythroid and megakaryocyte atypia. - Storage iron present and focally increased. The marrow is variably cellular and at least focally appears mildly increased although the biopsy is small and fragmented and suboptimal. Mild atypia is seen in the erythroids, and occasional small megakaryocytes are present. Although an early myeloid neoplasm is in the differential, this degree of atypia may be seen due to other causes including nutritional deficiencies such as vitamin B12, folate or copper, toxic exposures, autoimmune/rheumatologic etiologies, infectious etiologies, and other neoplasms. The finding of vacuolated immature erythroids in the aspirate raises the possibility of copper deficiency. Correlation with copper levels may be useful if clinically indicated. Mast cells appear increased, predominantly morphologically unremarkable. The myeloid NGS demonstrates a variant of potential clinical significance in the PPM1D gene, which raises the possibility of a clonal cytopenia of undetermined significance, although this variant is rarely germline. 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 - started on Luspatercept on 03/08/23 - Started on Rytelo 01/10/24. Due again on 04/07/24. 2) Macrocytic anemia - related to #1. 3) Fatigue - likely due to anemia. 4) DM - on insulin. - trying to get BS < 200. Plan is to initiate PRBC if needed and ideally keep Hb between 7 and 8. I would like to try Luspatercept for him to see if we can make him transfusion independent and help slow down the progression of his CCUP. Have since increased dose of Luspatercept to max 1.75mg/m2 and pt is still requiring multiple transfusions and not getting a bump in his Hb. Indications are to stop at 11.5 Hb or > 2gm/dL climb, however he is not reaching this. Continue to check labs eow per pt discussion. Started Rytelo today. The patient was able to ask questions and all were answered to his satisfaction. Will transfuse as needed. Plan to see him back with Rytelo. Fax Dr. Robertson note Parts of the HPI, ROS, exam and impression/plan may have been copied from my personal previous clinical note and remain pertinent. Current changes have been made and documented today. Other parts or data were deleted if not relevant for today. The documentation has been reviewed and edited as necessary to support the clinical decision making for today's visit. Transcribed by Rin Gonsalves, virtual manager medical for Alka Noriega MD. I, Alka Noriega MD, personally performed the services described in this documentation. All medical record entries made by the scribe were at my direction and in my presence. I have reviewed the chart and agree that the record reflects my personal performance and is accurate and complete. Alka Noriega MD documented in this encounter [facility] 03-24-2024 Note [facility] 03-13-2024 Note [facility] 03-13-2024 History of Presen t illness Narrative Joss Oropeza 1945 March 13, 2024 HPI: Joss Oropeza is a 78 year old male who presents as a hospital follow up. Mr. Oropeza is a 78 year old male who presented to ER on 05/22/22 for anemia. This is a 78 year old male who presented with for low hgb from primary care office. Patient states he was 6.7 at PCP office and 6.0 at [facility]. PMHx of chronic anemia (baseline 9-11), diabetes, hepatic steatosis, CVA on ASA. He reports worsening shortness of breath over the last 1 year associated with weakness and fatigue. He denies any chest pain. He denies any overt GI bleeding, no blood or darker stool, no weight loss, no abdominal pain, no issues swallowing, and no issues with constipation or diarrhea. Reports several colonoscopies in the past with Dr. Hernandez in [place], last done July 2021 that had one polyp removed. Remote EGD. He does endorse some heartburn and reflux occasionally. He denies any NSAID use besides ASA 81 mg, no blood thinners, no smoking, and only rare alcohol use. Hgb this morning 7.2 from 5.9 s/p 1 unit of blood. Platelets low 114, and MCV elevated. Kidney function normal. Iron studies showing normal iron, ferritin elevated, folate and b12 normal. CT a/p showed no acute findings in abdomen and pelvis. VSS. GI consulted for anemia. I was asked to see him for macrocytic anemia prior to d/c. He was SOB on admission and now feels better. He received 1 unit PRBC on 05/22 and another on 05/23/22. He is very active on his tractor at home. He is a non smoker. Does not drink alcohol. No family hx of bone marrow issues. Denies any bleeding. Interval history: Today he is here for follow up. Was supposed to have Rytelo last week. Skipped this one due to being in hospital in [place] with Hb 5.8. Fatigued and tired all the time. No major changes. Taking insulin daily. 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 PAST SURGICAL HISTORY Procedure Laterality Date ADENOIDECTOMY PRIMARY <AGE 10 Adenoidectomy COLONOSCOPY FLX DX W/COLLJ SPEC WHEN PFRMD Colonoscopy COLONOSCOPY FLX DX W/COLLJ SPEC WHEN PFRMD Colonoscopy LAPAROSCOPY SURG CHOLECYSTECTOMY Cholecystectomy, lap PAST SURGICAL HISTORY OF 01-17-12 BACK SURGERY PAST SURGICAL HISTORY OF SKIN LESION--PRE CANCER SKULL PAST SURGICAL HISTORY OF SKIN LESION--SKIN CANCER LEFT HAND PICC LINE MRSA INFECTION RT/LT HEART CATHETERS CC & CA, R & L heart, NEGATIVE TONSILLECTOMY PRIMARY/SECONDARY <AGE 10 Tonsillectomy Current Outpatient Medications Medication Sig Dispense Refill aspirin 81 mg chewable tablet Take 81 mg by mouth once daily. IFTIKHAR VAZQUEZ U-100 INSULIN 100 unit/mL (3 mL) Inject 27 Units subcutaneously every morning. BD CRISTAL 2ND GEN PEN NEEDLE 32 gauge x glimepiride (AMARYL) 4 mg tablet Take 4 mg by mouth daily with dinner. rosuvastatin (CRESTOR) 10 mg tablet Take 1 tablet by mouth daily at bedtime. 90 tablet 3 MEN'S MULTI-VITAMIN ORAL Take 1 tablet by mouth. cyanocobalamin (VITAMIN B-12) 1,000 mcg tab Take 1,000 mcg by mouth once daily. tamsulosin (FLOMAX) 0.4 mg Take 0.4 mg by mouth once daily. finasteride (PROSCAR) 5 mg tablet Take 5 mg by mouth daily at bedtime. alendronate (FOSAMAX) 70 mg tablet Take 70 mg by mouth one time a week. In AM with cup of water on empty stomach. Nothing else by mouth and stay upright for 30 min. (Patient not taking: Reported on 03/13/2024) No current facility-administered medications for this visit. ALLERGIES Allergen Reactions Maxipime [Cefepime] Unknown FAMILY HISTORY Problem Relation Age of Onset Stroke Mother Ischemic Heart Disease Father Social History Tobacco Use Smoking status: Never Smokeless tobacco: Never Vaping Use Vaping status: Never Used Substance Use Topics Alcohol use: Yes Comment: social/rare Drug use: No I have reviewed the PMHx, PSHx, social history and ROS on March 13, 2024 - all new information noted. Review of Systems: Constitutional: No fevers, chills, drenching night sweats or unintentional weight loss. +fatigue. HEENT: No yellowing of the eyes, no vision changes, no hearing loss or ear pain, no nosebleeds or drainage, no sore throat. Neck: No complaints. Chest: No SOB or cough, +occasional P[place], no hemoptysis, no wheezing. Breast: No complaints. Heart: No chest pain, pressure or tightness. No racing heartbeat. Abdominal: No pain or difficulty with swallowing, no N/V, no early satiety, no abdominal pain or bloating, no diarrhea or constipation, no change in bowel habits, no blood in the urine. Genitourinary: No pain or burning with urination, no incontinence, no blood in the urine. Extremities: no pain or swelling. Neurological: No headaches, no numbness or tingling in the extremities, no double vision. Skin: No rashes or ulcerations, no change in pigmentation. Nodes: no enlargement per patient. Heme: No easy bruising or bleeding, no yellowing of the eyes or darkening of urine. Psychiatric: no anxiety or depression. Immunologic: No recurrent or persistent infections of the sinuses, lungs or urinary tract. Endocrine: No hair or nail changes, no polyuria, polydipsia, or polyphagia. Appetite normal. I have performed the physical exam on March 13, 2024 - all new findings noted below. Physical Exam: BP 122/60 Pulse 87 Temp 36.6 C (97.8 F) (Temporal) Ht 175.3 cm (5' 9) Wt 99.8 kg (220 lb) SpO2 99% BMI 32.49 kg/m ECOG PS: 0 Pain Intensity: 0/10 General: Age-appropriate well developed. Appears well. Fatigued. HEENT: Normocephalic, no sclera icterus, external ears normal, oral cavity clear. Neck: Supple, no thyroid nodules, no JVD. Chest: Clear bilaterally, no wheezes, not labored. Heart: Normal S1 and S2, no abnormal sounds, peripheral pulses synchronized. +murmur grade 1/6 Abdomen: Soft, nontender, nondistended, bowel sounds present, no organomegaly or mass, no rigidity. /Rectal: deferred Extremities: No cyanosis, clubbing, gross deformities, or palpable cords. Neurological: Cranial nerves II through XII are intact bilaterally, strength normal in the upper and lower extremities, no focal deficits. Skin: Warm and dry with no rashes or ulcerations. Nodes: No palpable adenopathy in the cervical, supraclavicular, infraclavicular, or axillary regions. Hematologic: no bruising or petechiae. Psychiatric: Alert and oriented x3. Emotional well-being assessment was performed. Pt denies depression, distress, and or problems with coping or adjustment. Labs CBC: Recent Labs 03/11/24 1245 WBC 6.47 HB 8.1* HCT 25.1* PLT 86* MCV 96.9 RDWCV 19.8* NEUTP 51.5 ABSNEUT 3.34 LYMPHP 39.4 MONOP 8.2 EODINP 0.2 COAG: No results for input(s): APTT, INR in the last 168 hours. BMP: Recent Labs 03/11/24 1245 GLUC 219* NA 133* K 4.5 CHLOR 100 CO2 22 ANION 11 BUN 19 CREAT 0.90 CHEM: Recent Labs 03/11/24 1245 ALB 3.9 TPROT 7.1 CA 9.8 Lab Results Component Value Date MURRAY 1,130.0 (H) 01/10/2024 MURRAY 869.8 (H) 05/22/2022 IRON Lab Results Component Value Date FE 225 (H) 01/10/2024 FE 128 05/22/2022 TIBC Lab Results Component Value Date TIBC 244 01/10/2024 TIBC 05/22/2022 Comment: Unable to assay. Specimen significantly hemolyzed. FOLATE Lab Results Component Value Date FOLATE >20.0 05/23/2022 Lab Results Component Value Date RETICP 1.8 07/03/2022 ABSRETIC 0.037 07/03/2022 MURRAY 1,130.0 (H) 01/10/2024 MURRAY 869.8 (H) 05/22/2022 FE 225 (H) 01/10/2024 FE 128 05/22/2022 TIBC 244 01/10/2024 TIBC 05/22/2022 Comment: Unable to assay. Specimen significantly hemolyzed. TRANSFERSAT 92.2 (H) 01/10/2024 TRANSFERSAT 05/22/2022 Comment: Unable to assay. Specimen significantly hemolyzed. Radiology: Pathology: BM biopsy 06/01/22: Variably cellular marrow with trilineage hematopoiesis and mild erythroid and megakaryocyte atypia. - Storage iron present and focally increased. The marrow is variably cellular and at least focally appears mildly increased although the biopsy is small and fragmented and suboptimal. Mild atypia is seen in the erythroids, and occasional small megakaryocytes are present. Although an early myeloid neoplasm is in the differential, this degree of atypia may be seen due to other causes including nutritional deficiencies such as vitamin B12, folate or copper, toxic exposures, autoimmune/rheumatologic etiologies, infectious etiologies, and other neoplasms. The finding of vacuolated immature erythroids in the aspirate raises the possibility of copper deficiency. Correlation with copper levels may be useful if clinically indicated. Mast cells appear increased, predominantly morphologically unremarkable. The myeloid NGS demonstrates a variant of potential clinical significance in the PPM1D gene, which raises the possibility of a clonal cytopenia of undetermined significance, although this variant is rarely germline. 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 2) Macrocytic anemia - related to #1. 3) Fatigue - likely due to anemia. 4) DM - on insulin. - trying to get BS < 200. Reviewed with pt and . Plan is to initiate PRBC if needed and ideally keep Hb between 7 and 8. I would like to try Luspatercept for him to see if we can make him transfusion independent and help slow down the progression of his CCUP. Have increased dose of Luspatercept to max 1.75mg/m2 and pt is still requiring multiple transfusions and not getting a bump in his Hb. Indications are to stop at 11.5 Hb or > 2gm/dL climb, however he is not reaching this. Continue to check labs eow per pt discussion. The patient was able to ask questions and all were answered to his satisfaction. at 5.6 due to anemia with C#1. Rescheduled for next available. Offered reBM biopsy given changes but will hold off for now. Fax Dr. Robertson note Parts of the HPI, ROS, exam and impression/plan may have been copied from my personal previous clinical note and remain pertinent. Current changes have been made and documented today. Other parts or data were deleted if not relevant for today. The documentation has been reviewed and edited as necessary to support the clinical decision making for today's visit. Alka Noriega MD documented in this encounter [facility] 03-09-2024 Telephone encounter Note Per , request to schedule office visit with lab check prior. [facility] 03-09-2024 Miscellaneous Notes Per , request to schedule office visit with lab check prior. Patient called today with concerns about Rytelo infusions. He feels the medication is causing need for transfusions. When do you need a scheduled visit? He questions if you will reduce the dose. 03/06/2024 infusion cancelled due to no medication at pharmacy. (Per Deb, shipment received). documented in this encounter [facility] 03-09-2024 Telephone encounter Note Patient called today with concerns about Rytelo infusions. He feels the medication is causing need for transfusions. When do you need a scheduled visit? He questions if you will reduce the dose. 03/06/2024 infusion cancelled due to no medication at pharmacy. (Per Deb, shipment received). [facility] 02-12-2024 Note [facility] 02-12-2024 History of Presen t illness Narrative Pt arrived to infusion in good condition, VSS, pt denies fever, chills, sob, cough or congestion. No complaints. PIV started, no concerns. RBC's up as ordered. Pt verbalized understanding to notify RN of sob, chest pain, chills, back pain or discomfort. Will monitor. RBC transfusion complete. VSS. Pt without S&S distress. tolerated well.Verbalized understanding to seek medical attention for sob, chest pain, back pain or chills. PIV removed, pt denies questions or needs. Ambulated to [facility] per self, no concerns. documented in this encounter [facility] 02-07-2024 History of Presen t illness Narrative Dr. Zelaya notified of CBC results. Ok to proceed with tx, patient to receive 1 unit PRBC today and 1 next week. documented in this encounter [facility] 02-07-2024 Note [facility] 01-30-2024 Note [facility] 01-30-2024 History of Presen t illness Narrative Pt arrived to infusion room, steady gate. VSS, pt denies recent fever, chills, cold/flu-like symptoms. PIV placed without difficulty, IV fluids started. Unit of PRBCs started per order. Pt understanding to notify if he experiences any SOB, chest pain, back pain, chills, or any discomfort. VSS. Pt resting comfortably in chair. Pt denies needs. Unit complete, VSS. PIV removed without complication. Pt denies needs/questions. Pt exited to lobby, slow and steady gate. documented in this encounter [facility] 01-10-2024 Note [facility] 01-10-2024 History of Presen t illness Narrative January 10, 2024 [facility]and received the following treatment: List drugs given: Rytelo, benadryl, and solucortef Please refer to the handouts given to you at your first treatment with the specific drugs you received and their side effects. If you need new copies, please tell your nurse. If you experience any of the following symptoms, you need to contact your physician: Unusual bleeding or bruising Fever of 100.4 or above and severe chills No bowel movement for 3 days or discomfort Unable to drink fluids for 8 or more hours Vomiting even though you have taken your nausea medication Difficulty swallowing or sores in your mouth Blood in your urine, stool, vomit, or coughing up blood Gums that bleed when you brush your teeth Purple pinpoint freckles on your skin, known as petechiae Unrelieved pain Pain swelling and /or redness at the intravenous site A sudden change in your condition Any questions or concerns Physician: Alka Noriega M.D., MPH Follow up with your physician if you any problems. If your physician is unavailable, go to the Emergency Room at [facility]. Plan of care evaluated at discharge by : Danisha Schwartz RN January 10, 2024 If you smoke, Stop! Call [phone] or [phone] for additional information. Please take this form with you to all physician visits. Copy of patient instructions given to patient. Pt does not know all home meds. documented in this encounter [facility] 01-10-2024 History of Presen t illness Narrative [facility] Department of Pharmacy Oncology Pharmacy Medication Education Patient Name: Joss Oropeza Primary Oncologist: Dr. Zelaya Diagnosis: MDS Joss Oropeza is a 78 year old patient and daughter here today for medication education for IV Rytelo . Drug Interactions: Clinically significant interactions with chemotherapy, immunosuppression, or other standard of care treatment plan medications anticipated: No. There are no pertinent drug interactions identified. Patient was counseled accordingly. Allergies: Patient confirmed allergies documented in Epic are correct: Yes Was medication education provided?: Yes Medication Education: Administration and schedule: Monthly Potential side effects discussed: hypersensitivity reaction, myelosuppression, fatigue Was medication reconciliation performed?: No - Rytelo education was provided by a pharmacist YES - Provided important phone numbers and contacts during and after hours. YES - Provided information on symptoms that require immediate assistance. YES - Preventing infection. YES - Treatment schedule and confirmation of appointment times. YES Thank you for allowing us to participate in the care of this patient. I spent 15 minutes (15 minute increments) with the patient Garry Jameson RPh documented in this encounter [facility] 01-10-2024 Note [facility] 01-10-2024 Note HNO ID: [id number] Author: DANISHA SCHWARTZ RN Service: ? Author Type: Registered Nurse Type: Progress Notes Filed: 01/10/2024 09:59 Note Text: Pt does not know all home meds. [facility] 12-31-2023 Note [facility] 12-31-2023 History of Presen t illness Narrative Joss Oropeza 1945 December 31, 2023 HPI: Joss Oropeza is a 78 year old male who presents as a hospital follow up. Mr. Oropeza is a 78 year old male who presented to ER on 05/22/22 for anemia. This is a 78 year old male who presented with for low hgb from primary care office. Patient states he was 6.7 at PCP office and 6.0 at [facility]. PMHx of chronic anemia (baseline 9-11), diabetes, hepatic steatosis, CVA on ASA. He reports worsening shortness of breath over the last 1 year associated with weakness and fatigue. He denies any chest pain. He denies any overt GI bleeding, no blood or darker stool, no weight loss, no abdominal pain, no issues swallowing, and no issues with constipation or diarrhea. Reports several colonoscopies in the past with Dr. Hernandez in [place], last done July 2021 that had one polyp removed. Remote EGD. He does endorse some heartburn and reflux occasionally. He denies any NSAID use besides ASA 81 mg, no blood thinners, no smoking, and only rare alcohol use. Hgb this morning 7.2 from 5.9 s/p 1 unit of blood. Platelets low 114, and MCV elevated. Kidney function normal. Iron studies showing normal iron, ferritin elevated, folate and b12 normal. CT a/p showed no acute findings in abdomen and pelvis. VSS. GI consulted for anemia. I was asked to see him for macrocytic anemia prior to d/c. He was SOB on admission and now feels better. He received 1 unit PRBC on 05/22 and another on 05/23/22. He is very active on his tractor at home. He is a non smoker. Does not drink alcohol. No family hx of bone marrow issues. Denies any bleeding. Interval history: Today he is here for follow up and C#1 of Rytelo. No drug today. Do not have in stock. Fatigued and tired all the time. Taking insulin daily. Just had it doubled to 25 units per day. Still not making any progress getting to <200. No major changes. 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 PAST SURGICAL HISTORY Procedure Laterality Date ADENOIDECTOMY PRIMARY <AGE 10 Adenoidectomy COLONOSCOPY FLX DX W/COLLJ SPEC WHEN PFRMD Colonoscopy COLONOSCOPY FLX DX W/COLLJ SPEC WHEN PFRMD Colonoscopy LAPAROSCOPY SURG CHOLECYSTECTOMY Cholecystectomy, lap PAST SURGICAL HISTORY OF 1122-12 BACK SURGERY PAST SURGICAL HISTORY OF SKIN LESION--PRE CANCER SKULL PAST SURGICAL HISTORY OF SKIN LESION--SKIN CANCER LEFT HAND PICC LINE MRSA INFECTION RT/LT HEART CATHETERS CC & CA, R & L heart, NEGATIVE TONSILLECTOMY PRIMARY/SECONDARY <AGE 10 Tonsillectomy Current Outpatient Medications Medication Sig Dispense Refill clopidogrel (PLAVIX) 75 mg tablet Take 1 tablet by mouth once daily for 19 doses. 19 tablet 0 metFORMIN (GLUCOPHAGE) 1,000 mg tablet Take 1,000 mg by mouth two times a day with meals. Once in am and once in pm (Patient not taking: Reported on 09/19/2023) SITagliptin (ZITUVIO) 100 mg tablet Take by mouth. aspirin 81 mg chewable tablet Take by mouth. finasteride 0.1% minoxidil 7.5% topical solution (CPD) Finasteride Active 5 MG DAILY July 10, 2018 9:31am (Patient not taking: Reported on 09/19/2023) IFTIKHAR VAZQUEZ U-100 INSULIN 100 unit/mL (3 mL) Inject 25 Units subcutaneously every morning. BD CRISTAL 2ND GEN PEN NEEDLE 32 gauge x glimepiride (AMARYL) 4 mg tablet Take 4 mg by mouth two times a day with meals. rosuvastatin (CRESTOR) 10 mg tablet Take 1 tablet by mouth daily at bedtime. 90 tablet 3 MEN'S MULTI-VITAMIN ORAL Take 1 tablet by mouth. cyanocobalamin (VITAMIN B-12) 1,000 mcg tab Take 1,000 mcg by mouth once daily. tamsulosin (FLOMAX) 0.4 mg Take 0.4 mg by mouth two times a day. finasteride (PROSCAR) 5 mg tablet Take 5 mg by mouth once daily. alendronate (FOSAMAX) 70 mg tablet Take 70 mg by mouth one time a week. In AM with cup of water on empty stomach. Nothing else by mouth and stay upright for 30 min. No current facility-administered medications for this visit. ALLERGIES Allergen Reactions Maxipime [Cefepime] Unknown FAMILY HISTORY Problem Relation Age of Onset Stroke Mother Ischemic Heart Disease Father Social History Tobacco Use Smoking status: Never Smokeless tobacco: Never Vaping Use Vaping status: Never Used Substance Use Topics Alcohol use: Yes Comment: social/rare Drug use: No I have reviewed the PMHx, PSHx, social history and ROS on December 31, 2023 - all new information noted. Review of Systems: Constitutional: No fevers, chills, drenching night sweats or unintentional weight loss. +fatigue. HEENT: No yellowing of the eyes, no vision changes, no hearing loss or ear pain, no nosebleeds or drainage, no sore throat. Neck: No complaints. Chest: No SOB or cough, +occasional [place], no hemoptysis, no wheezing. Breast: No complaints. Heart: No chest pain, pressure or tightness. No racing heartbeat. Abdominal: No pain or difficulty with swallowing, no N/V, no early satiety, no abdominal pain or bloating, no diarrhea or constipation, no change in bowel habits, no blood in the urine. Genitourinary: No pain or burning with urination, no incontinence, no blood in the urine. Extremities: no pain or swelling. Neurological: No headaches, no numbness or tingling in the extremities, no double vision. Skin: No rashes or ulcerations, no change in pigmentation. Nodes: no enlargement per patient. Heme: No easy bruising or bleeding, no yellowing of the eyes or darkening of urine. Psychiatric: no anxiety or depression. Immunologic: No recurrent or persistent infections of the sinuses, lungs or urinary tract. Endocrine: No hair or nail changes, no polyuria, polydipsia, or polyphagia. Appetite normal. I have performed the physical exam on December 31, 2023 - all new findings noted below. Physical Exam: Trending of last 3 clinical abnormalities associated with Severe Sepsis or Septic Shock 11/28/2023 1444 12/11/2023 1406 12/31/2023 1021 Temp: -- 37.1 C (98.8 F) 36.4 C (97.5 F) Pulse: 70 69 84 Resp: -- 20 -- BP: 167/68 169/68 121/58 O2 Sat: 97 % 97 % 97 % Last Wt 12/31/23 : 97.1 kg (214 lb 1.1 oz) 11/28/23 : 99.2 kg (218 lb 12.8 oz) 10/03/23 : 99.3 kg (219 lb) 09/30/23 : 96.6 kg (213 lb) 09/19/23 : 97 kg (213 lb 13.5 oz) Last 1 Encounter Ht Readings: Date: Ht: 11/28/2023 175.3 cm (5' 9.02) ECOG PS: 0 Pain Intensity: 0/10 General: Age-appropriate well developed. Appears well. Fatigued. HEENT: Normocephalic, no sclera icterus, external ears normal, oral cavity clear. Neck: Supple, no thyroid nodules, no JVD. Chest: Clear bilaterally, no wheezes, not labored. Heart: Normal S1 and S2, no abnormal sounds, peripheral pulses synchronized. +murmur grade 1/6 Abdomen: Soft, nontender, nondistended, bowel sounds present, no organomegaly or mass, no rigidity. /Rectal: deferred Extremities: No cyanosis, clubbing, gross deformities, or palpable cords. Neurological: Cranial nerves II through XII are intact bilaterally, strength normal in the upper and lower extremities, no focal deficits. Skin: Warm and dry with no rashes or ulcerations. Nodes: No palpable adenopathy in the cervical, supraclavicular, infraclavicular, or axillary regions. Hematologic: no bruising or petechiae. Psychiatric: Alert and oriented x3. Emotional well-being assessment was performed. Pt denies depression, distress, and or problems with coping or adjustment. Labs CBC: Recent Labs 12/31/23 0959 WBC 5.79 HB 8.8* HCT 27.6* PLT 123* MCV 114.5* RDWCV 20.8* NEUTP 63.4 ABSNEUT 3.67 LYMPHP 29.4 MONOP 5.7 EODINP 0.3 COAG: No results for input(s): APTT, INR in the last 168 hours. BMP: Recent Labs 12/31/23 0959 GLUC 179* NA 138 K 4.3 CHLOR 105 CO2 22 ANION 11 BUN 17 CREAT 0.99 CHEM: Recent Labs 12/31/23 0959 ALB 4.1 TPROT 6.8 CA 9.3 Transcribe Orders on 09/17/2023 Component Date Value XM RESULT 09/17/2023 Compatible Expiration Date 09/17/[id number] Product Expiration Date 09/17/2023 10/11/2023 23:59 ISBT Blood Type 09/17/2023 7300 Unit Blood Type 09/17/2023 B Pos Unit Number 09/17/2023 [id number] Status Information 09/17/2023 Issued Final Product Identification 09/17/2023 Red Blood Cells Product Code 09/17/2023 [id number] Issue Date/Time 09/17/2023 [id number] Appointment on 09/17/2023 Component Date Value ABO 09/17/2023 B Rh(D) 09/17/2023 Positive Antibody Screen 09/17/2023 Negative Type and Screen Expirati* 09/17/2023 09/20/2023 23:59 HIstorical Ab Scr Status 09/17/2023 NEGATIVE Infusion Center on 09/13/2023 Component Date Value WBC 09/13/2023 4.18 RBC 09/13/2023 1.78 (L) Hemoglobin 09/13/2023 7.1 (L) Hematocrit 09/13/2023 21.8 (L) MCV 09/13/2023 122.5 (H) MCH 09/13/2023 39.9 (H) MCHC 09/13/2023 32.6 RDW-CV 09/13/2023 16.2 (H) Platelet Count 09/13/2023 121 (L) MPV 09/13/2023 12.3 Neutrophils % 09/13/2023 54.6 Abs Neut 09/13/2023 2.28 Lymphocytes % 09/13/2023 39.5 Abs Lymph 09/13/2023 1.65 Monocytes % 09/13/2023 4.5 Abs Donley 09/13/2023 0.19 Eosinophils % 09/13/2023 0.5 Abs Eosin 09/13/2023 <0.03 Basophils % 09/13/2023 0.7 Abs Baso 09/13/2023 0.03 Immature Granulocytes % 09/13/2023 0.2 Abs Immature Gran 09/13/2023 <0.03 Diff Type 09/13/2023 Auto Infusion Center on 08/23/2023 Component Date Value WBC 08/23/2023 4.14 RBC 08/23/2023 1.81 (L) Hemoglobin 08/23/2023 7.3 (L) Hematocrit 08/23/2023 22.2 (L) MCV 08/23/2023 122.7 (H) MCH 08/23/2023 40.3 (H) MCHC 08/23/2023 32.9 RDW-CV 08/23/2023 16.3 (H) Platelet Count 08/23/2023 115 (L) MPV 08/23/2023 12.4 Neutrophils % 08/23/2023 55.3 Abs Neut 08/23/2023 2.29 Lymphocytes % 08/23/2023 38.4 Abs Lymph 08/23/2023 1.59 Monocytes % 08/23/2023 5.1 Abs Donley 08/23/2023 0.21 Eosinophils % 08/23/2023 0.5 Abs Eosin 08/23/2023 <0.03 Basophils % 08/23/2023 0.5 Abs Baso 08/23/2023 <0.03 Immature Granulocytes % 08/23/2023 0.2 Abs Immature Gran 08/23/2023 <0.03 Diff Type 08/23/2023 Auto ABO 08/23/2023 B Rh(D) 08/23/2023 Positive Antibody Screen 08/23/2023 Negative Type and Screen Expirati* 08/23/2023 08/26/2023 23:59 HIstorical Ab Scr Status 08/23/2023 NEGATIVE Infusion Center on 08/02/2023 Component Date Value WBC 08/02/2023 4.21 RBC 08/02/2023 1.90 (L) Hemoglobin 08/02/2023 7.7 (L) Hematocrit 08/02/2023 23.5 (L) MCV 08/02/2023 123.7 (H) MCH 08/02/2023 40.5 (H) MCHC 08/02/2023 32.8 RDW-CV 08/02/2023 16.3 (H) Platelet Count 08/02/2023 128 (L) MPV 08/02/2023 11.9 Neutrophils % 08/02/2023 50.9 Abs Neut 08/02/2023 2.14 Lymphocytes % 08/02/2023 43.0 Abs Lymph 08/02/2023 1.81 Monocytes % 08/02/2023 5.5 Abs Donley 08/02/2023 0.23 Eosinophils % 08/02/2023 0.2 Abs Eosin 08/02/2023 <0.03 Basophils % 08/02/2023 0.2 Abs Baso 08/02/2023 <0.03 Immature Granulocytes % 08/02/2023 0.2 Abs Immature Gran 08/02/2023 <0.03 Diff Type 08/02/2023 Auto ABO 08/02/2023 B Rh(D) 08/02/2023 Positive Antibody Screen 08/02/2023 Negative Type and Screen Expirati* 08/02/2023 08/05/2023 23:59 HIstorical Ab Scr Status 08/02/2023 NEGATIVE Appointment on 07/18/2023 Component Date Value WBC 07/18/2023 4.29 RBC 07/18/2023 1.97 (L) Hemoglobin 07/18/2023 7.9 (L) Hematocrit 07/18/2023 24.2 (L) MCV 07/18/2023 122.8 (H) MCH 07/18/2023 40.1 (H) MCHC 07/18/2023 32.6 RDW-CV 07/18/2023 16.3 (H) Platelet Count 07/18/2023 119 (L) MPV 07/18/2023 11.9 Neutrophils % 07/18/2023 53.7 Abs Neut 07/18/2023 2.31 Lymphocytes % 07/18/2023 37.1 Abs Lymph 07/18/2023 1.59 Monocytes % 07/18/2023 7.7 Abs Donley 07/18/2023 0.33 Eosinophils % 07/18/2023 0.5 Abs Eosin 07/18/2023 <0.03 Basophils % 07/18/2023 0.5 Abs Baso 07/18/2023 <0.03 Immature Granulocytes % 07/18/2023 0.5 Abs Immature Gran 07/18/2023 <0.03 Diff Type 07/18/2023 Auto ABO 07/18/2023 B Rh(D) 07/18/2023 Positive Antibody Screen 07/18/2023 Negative Type and Screen Expirati* 07/18/2023 07/21/2023 23:59 HIstorical Ab Scr Status 07/18/2023 NEGATIVE Infusion Center on 07/12/2023 Component Date Value WBC 07/12/2023 2.80 (L) RBC 07/12/2023 1.83 (L) Hemoglobin 07/12/2023 7.4 (L) Hematocrit 07/12/2023 22.6 (L) MCV 07/12/2023 123.5 (H) MCH 07/12/2023 40.4 (H) MCHC 07/12/2023 32.7 RDW-CV 07/12/2023 15.9 (H) Platelet Count 07/12/2023 100 (L) MPV 07/12/2023 11.2 NRBC 07/12/2023 0.0 Absolute nRBC 07/12/2023 <0.01 Neutrophils % 07/12/2023 48.0 Abs Neut (Segs + Bands) 07/12/2023 1.34 (L) Lymphocytes % 07/12/2023 50.0 Abs Lymph (Normal + Reac* 07/12/2023 1.40 Monocytes % 07/12/2023 2.0 Abs Donley 07/12/2023 0.06 Eosin% 07/12/2023 0.0 Abs Eosin 07/12/2023 0.00 Basophils % 07/12/2023 0.0 Abs Baso 07/12/2023 0.00 Platelet Estimate 07/12/2023 Decreased Red Cell Morph 07/12/2023 Reviewed: see results of individual morphologies Polychromasia 07/12/2023 Slight Anisocytosis 07/12/2023 Present Diff Type 07/12/2023 Manual ABO 07/12/2023 B Rh(D) 07/12/2023 Positive Antibody Screen 07/12/2023 Negative Type and Screen Expirati* 07/12/2023 07/15/2023 23:59 HIstorical Ab Scr Status 07/12/2023 NEGATIVE Lab Results Component Value Date MURRAY 869.8 (H) 05/22/2022 IRON Lab Results Component Value Date FE 128 05/22/2022 TIBC Lab Results Component Value Date TIBC 05/22/2022 Comment: Unable to assay. Specimen significantly hemolyzed. FOLATE Lab Results Component Value Date FOLATE >20.0 05/23/2022 Lab Results Component Value Date RETICP 1.8 07/03/2022 ABSRETIC 0.037 07/03/2022 MURRAY 869.8 (H) 05/22/2022 FE 128 05/22/2022 TIBC 05/22/2022 Comment: Unable to assay. Specimen significantly hemolyzed. TRANSFERSAT 05/22/2022 Comment: Unable to assay. Specimen significantly hemolyzed. Radiology: Pathology: BM biopsy 06/01/22: Variably cellular marrow with trilineage hematopoiesis and mild erythroid and megakaryocyte atypia. - Storage iron present and focally increased. The marrow is variably cellular and at least focally appears mildly increased although the biopsy is small and fragmented and suboptimal. Mild atypia is seen in the erythroids, and occasional small megakaryocytes are present. Although an early myeloid neoplasm is in the differential, this degree of atypia may be seen due to other causes including nutritional deficiencies such as vitamin B12, folate or copper, toxic exposures, autoimmune/rheumatologic etiologies, infectious etiologies, and other neoplasms. The finding of vacuolated immature erythroids in the aspirate raises the possibility of copper deficiency. Correlation with copper levels may be useful if clinically indicated. Mast cells appear increased, predominantly morphologically unremarkable. The myeloid NGS demonstrates a variant of potential clinical significance in the PPM1D gene, which raises the possibility of a clonal cytopenia of undetermined significance, although this variant is rarely germline. 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 2) Macrocytic anemia - related to #1. 3) Fatigue - likely due to anemia. 4) DM - on insulin. - trying to get BS < 200. Reviewed with pt and . Plan is to initiate PRBC if needed and ideally keep Hb between 7 and 8. I would like to try Luspatercept for him to see if we can make him transfusion independent and help slow down the progression of his CCUP. Have increased dose of Luspatercept to max 1.75mg/m2 and pt is still requiring multiple transfusions and not getting a bump in his Hb. Indications are to stop at 11.5 Hb or > 2gm/dL climb, however he is not reaching this. Continue to check labs eow per pt discussion. Will try Rytelo with premeds next week. Apologized to pt. Drug not ordered. Auth and orders mixed up on back end of the office. The patient was able to ask questions and all were answered to his satisfaction. Parts of the HPI, ROS, exam and impression/plan may have been copied from my personal previous clinical note and remain pertinent. Current changes have been made and documented today. Other parts or data were deleted if not relevant for today. The documentation has been reviewed and edited as necessary to support the clinical decision making for today's visit. Alka Noriega MD documented in this encounter [facility] 12-31-2023 Note [facility] 12-31-2023 History of Presen t illness Narrative 1040- Dr Zelaya notified of pt's arrival and of expectations for treatment today. 1200-Pt discharged after being seen by Dr Zelaya with discussion of future treatment and will be scheduled to return documented in this encounter [facility] 12-11-2023 Note [facility] 12-11-2023 History of Presen t illness Narrative Pt arrived to infusion. VSS, appears well, denies questions or needs. Injections divided between left and right arms, pt tolerated well, ambulated to lobby. Gait steady. documented in this encounter [facility] 11-28-2023 Note [facility] 11-28-2023 History of Presen t illness Narrative Joss Oropeza 1945 November 28, 2023 HPI: Joss Oropeza is a 78 year old male who presents as a hospital follow up. Mr. Oropeza is a 78 year old male who presented to ER on 05/22/22 for anemia. This is a 78 year old male who presented with for low hgb from primary care office. Patient states he was 6.7 at PCP office and 6.0 at [facility]. PMHx of chronic anemia (baseline 9-11), diabetes, hepatic steatosis, CVA on ASA. He reports worsening shortness of breath over the last 1 year associated with weakness and fatigue. He denies any chest pain. He denies any overt GI bleeding, no blood or darker stool, no weight loss, no abdominal pain, no issues swallowing, and no issues with constipation or diarrhea. Reports several colonoscopies in the past with Dr. Hernandez in [place], last done July 2021 that had one polyp removed. Remote EGD. He does endorse some heartburn and reflux occasionally. He denies any NSAID use besides ASA 81 mg, no blood thinners, no smoking, and only rare alcohol use. Hgb this morning 7.2 from 5.9 s/p 1 unit of blood. Platelets low 114, and MCV elevated. Kidney function normal. Iron studies showing normal iron, ferritin elevated, folate and b12 normal. CT a/p showed no acute findings in abdomen and pelvis. VSS. GI consulted for anemia. I was asked to see him for macrocytic anemia prior to d/c. He was SOB on admission and now feels better. He received 1 unit PRBC on 05/22 and another on 05/23/22. He is very active on his tractor at home. He is a non smoker. Does not drink alcohol. No family hx of bone marrow issues. Denies any bleeding. Interval history: Today he is here for follow up. With today. Here to review his labs. Fatigued and tired all the time. Last PRBC 11/20/23. Getting shots in [place] every 3 weeks on Fridays. Getting his labs done on before the shot. Taking insulin daily. Just had it doubled to 25 units per day. Still not making any progress getting to <200. No major changes. 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 PAST SURGICAL HISTORY Procedure Laterality Date ADENOIDECTOMY PRIMARY <AGE 12 Adenoidectomy COLONOSCOPY FLX DX W/COLLJ SPEC WHEN PFRMD Colonoscopy COLONOSCOPY FLX DX W/COLLJ SPEC WHEN PFRMD Colonoscopy LAPAROSCOPY SURG CHOLECYSTECTOMY Cholecystectomy, lap PAST SURGICAL HISTORY OF 11-22-12 BACK SURGERY PAST SURGICAL HISTORY OF SKIN LESION--PRE CANCER SKULL PAST SURGICAL HISTORY OF SKIN LESION--SKIN CANCER LEFT HAND PICC LINE MRSA INFECTION RT/LT HEART CATHETERS CC & CA, R & L heart, NEGATIVE TONSILLECTOMY PRIMARY/SECONDARY <AGE 10 Tonsillectomy Current Outpatient Medications Medication Sig Dispense Refill SITagliptin (ZITUVIO) 100 mg tablet Take by mouth. aspirin 81 mg chewable tablet Take by mouth. BASAGLAR KWEMILYWILLIAM U-100 INSULIN 100 unit/mL (3 mL) Inject 25 Units subcutaneously every morning. BD CRISTAL 2ND GEN PEN NEEDLE 32 gauge x glimepiride (AMARYL) 4 mg tablet Take 4 mg by mouth two times a day with meals. MEN'S MULTI-VITAMIN ORAL Take 1 tablet by mouth. cyanocobalamin (VITAMIN B-12) 1,000 mcg tab Take 1,000 mcg by mouth once daily. tamsulosin (FLOMAX) 0.4 mg Take 0.4 mg by mouth two times a day. finasteride (PROSCAR) 5 mg tablet Take 5 mg by mouth once daily. alendronate (FOSAMAX) 70 mg tablet Take 70 mg by mouth one time a week. In AM with cup of water on empty stomach. Nothing else by mouth and stay upright for 30 min. clopidogrel (PLAVIX) 75 mg tablet Take 1 tablet by mouth once daily for 19 doses. 19 tablet 0 metFORMIN (GLUCOPHAGE) 1,000 mg tablet Take 1,000 mg by mouth two times a day with meals. Once in am and once in pm (Patient not taking: Reported on 09/19/2023) finasteride 0.1% minoxidil 7.5% topical solution (CPD) Finasteride Active 5 MG DAILY July 10, 2018 9:31am (Patient not taking: Reported on 09/19/2023) rosuvastatin (CRESTOR) 10 mg tablet Take 1 tablet by mouth daily at bedtime. 90 tablet 3 No current facility-administered medications for this visit. ALLERGIES Allergen Reactions Maxipime [Cefepime] Unknown FAMILY HISTORY Problem Relation Age of Onset Stroke Mother Ischemic Heart Disease Father Social History Tobacco Use Smoking status: Never Smokeless tobacco: Never Vaping Use Vaping status: Never Used Substance Use Topics Alcohol use: Yes Comment: social/rare Drug use: No I have reviewed the PMHx, PSHx, social history and ROS on October 03, 2023 - all new information noted. Review of Systems: Constitutional: No fevers, chills, drenching night sweats or unintentional weight loss. +fatigue. HEENT: No yellowing of the eyes, no vision changes, no hearing loss or ear pain, no nosebleeds or drainage, no sore throat. Neck: No complaints. Chest: No SOB or cough, +occasional [place], no hemoptysis, no wheezing. Breast: No complaints. Heart: No chest pain, pressure or tightness. No racing heartbeat. Abdominal: No pain or difficulty with swallowing, no N/V, no early satiety, no abdominal pain or bloating, no diarrhea or constipation, no change in bowel habits, no blood in the urine. Genitourinary: No pain or burning with urination, no incontinence, no blood in the urine. Extremities: no pain or swelling. Neurological: No headaches, no numbness or tingling in the extremities, no double vision. Skin: No rashes or ulcerations, no change in pigmentation. Nodes: no enlargement per patient. Heme: No easy bruising or bleeding, no yellowing of the eyes or darkening of urine. Psychiatric: no anxiety or depression. Immunologic: No recurrent or persistent infections of the sinuses, lungs or urinary tract. Endocrine: No hair or nail changes, no polyuria, polydipsia, or polyphagia. Appetite normal. I have performed the physical exam on October 03, 2023 - all new findings noted below. Physical Exam: BP 167/68 Pulse 70 Ht 5' 9.016 (1.75m) Wt 218 lb 12.8 oz (99.2kg) SpO2 97% BMI 32.30 kg/(m^2). ECOG PS: 0 Pain Intensity: 0/10 General: Age-appropriate well developed. Appears well. Fatigued. HEENT: Normocephalic, no sclera icterus, external ears normal, oral cavity clear. Neck: Supple, no thyroid nodules, no JVD. Chest: Clear bilaterally, no wheezes, not labored. Heart: Normal S1 and S2, no abnormal sounds, peripheral pulses synchronized. +murmur grade 1/6 Abdomen: Soft, nontender, nondistended, bowel sounds present, no organomegaly or mass, no rigidity. /Rectal: deferred Extremities: No cyanosis, clubbing, gross deformities, or palpable cords. Neurological: Cranial nerves II through XII are intact bilaterally, strength normal in the upper and lower extremities, no focal deficits. Skin: Warm and dry with no rashes or ulcerations. Nodes: No palpable adenopathy in the cervical, supraclavicular, infraclavicular, or axillary regions. Hematologic: no bruising or petechiae. Psychiatric: Alert and oriented x3. Emotional well-being assessment was performed. Pt denies depression, distress, and or problems with coping or adjustment. Labs CBC: No results for input(s): WBC, HB, HCT, PLT, MCV, RDWCV, NEUTP, ABSNEUT, LYMPHP, MONOP, EODINP in the last 168 hours. COAG: No results for input(s): APTT, INR in the last 168 hours. BMP: No results for input(s): GLUC, NA, K,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 has kept him steady but not really improved. Will increase the dose for tomorrow as the drug is available. Will go up to 1.75mg/m2. Indications are to stop at 11.5 Hb or > 2gm/dL climb. Continue to check labs eow per pt discussion. Offered to check once a month and will continue eow for now. The patient and his were able to ask questions and all were answered to their satisfaction. ? [place] for TOAN I will see him back in 2 mo for follow up. Parts of the HPI, ROS, exam and impression/plan may have been copied from my personal previous clinical note and remain pertinent. Current changes have been made and documented today. Other parts or data were deleted if not relevant for today. The documentation has been reviewed and edited as necessary to support the clinical decision making for today's visit. Alka Noriega MD documented in this encounter [facility] 09-19-2023 History of Presen t illness Narrative Images from the original note were not included. [facility] [place] Follow-up Visit Follow-up note September 18, 2023 HPI: Mr. Oropeza presents today for a follow-up visit. Per his previous visit on 06/28/23: G45.9 TIA (transient ischemic attack) (primary encounter diagnosis) Comment: Pt presenting today for follow-up after TIA. He reports that on 05/31 he experienced an episode of garbled speech and was taken to the ED and again on 06/07. He was admitted at [place] where stroke workup was completed including CT/A head and neck, MRI brain, EEG, and echo. Testing was unremarkable. LDL was 19. Recent A1c was 9.2. He was diagnosed with a TIA and was discharged on DAPT for 21 days and with a teacher drama. At time of appointment today, he reports he has not experienced any further symptoms. Exam in office is nonfocal. At this time recommendations will remain as follows: -Remove and mail back extended teacher drama (as it has been 2 weeks). -Continue DAPT for remainder of 21 days then continue ASA monotherapy. -Continue statin as previously prescribed. -Continue to manage BG with PCP; goal BG<140. -Continue to manage BP with PCP; goal BP<140/90. He will follow-up in 3 months or sooner should new or changing symptoms occur. Reviewed red flag symptoms and importance of calling 911 should these symptoms occur (information provided on AVS). Feels very weak since his previous visit. Has been getting medication; 3 shots every 3 weeks. Hgb has been tapering down. Had infusion at [place]. [place] slight improvement after that. No focal weakness. No further garbled speech, slurred speech, difficulty understanding conversation. No sensory deficits. No balance concerns. Slight dizziness every once in a while; lightheadedness. Taking ASA daily. BP was slightly elevated after infusion. Still taking rosuvastatin. 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 PAST SURGICAL HISTORY Procedure Laterality Date ADENOIDECTOMY PRIMARY <AGE 12 Adenoidectomy COLONOSCOPY FLX DX W/COLLJ SPEC WHEN PFRMD Colonoscopy COLONOSCOPY FLX DX W/COLLJ SPEC WHEN PFRMD Colonoscopy LAPAROSCOPY SURG CHOLECYSTECTOMY Cholecystectomy, lap PAST SURGICAL HISTORY OF 01-17-12 BACK SURGERY PAST SURGICAL HISTORY OF SKIN LESION--PRE CANCER SKULL PAST SURGICAL HISTORY OF SKIN LESION--SKIN CANCER LEFT HAND PICC LINE MRSA INFECTION RT/LT HEART CATHETERS CC & CA, R & L heart, NEGATIVE TONSILLECTOMY PRIMARY/SECONDARY <AGE 10 Tonsillectomy Current Outpatient Medications on File Prior to Visit Medication Sig clopidogrel (PLAVIX) 75 mg tablet Take 1 tablet by mouth once daily for 19 doses. metFORMIN (GLUCOPHAGE) 1,000 mg tablet Take 1,000 mg by mouth two times a day with meals. Once in am and once in pm SITagliptin (ZITUVIO) 100 mg tablet Take by mouth. aspirin 81 mg chewable tablet Take by mouth. finasteride 0.1% minoxidil 7.5% topical solution (CPD) Finasteride Active 5 MG DAILY July 10, 2018 9:31am IFTIKHAR VAZQUEZ U-100 INSULIN 100 unit/mL (3 mL) Inject 25 Units subcutaneously every morning. BD CRISTAL 2ND GEN PEN NEEDLE 32 gauge x 5/32 glimepiride (AMARYL) 4 mg tablet Take 4 mg by mouth two times a day with meals. rosuvastatin (CRESTOR) 10 mg tablet Take 1 tablet by mouth daily at bedtime. MEN'S MULTI-VITAMIN ORAL Take 1 tablet by mouth. cyanocobalamin (VITAMIN B-12) 1,000 mcg tab Take 1,000 mcg by mouth once daily. tamsulosin (FLOMAX) 0.4 mg Take 0.4 mg by mouth two times a day. finasteride (PROSCAR) 5 mg tablet Take 5 mg by mouth once daily. alendronate (FOSAMAX) 70 mg tablet Take 70 mg by mouth one time a week. In AM with cup of water on empty stomach. Nothing else by mouth and stay upright for 30 min. No current facility-administered medications on file prior to visit. Social History Tobacco Use Smoking status: Never Smokeless tobacco: Never Vaping Use Vaping Use: Never used Substance Use Topics Alcohol use: Yes Comment: social/rare Drug use: No ALLERGIES Allergen Reactions Maxipime [Cefepime] Unknown Review of Systems: See HPI. Physical Exam: 09/19/23 1319 BP: 138/70 BP Site: Left Arm BP Position: Sitting BP Cuff Size: Regular Adult Pulse: 68 SpO2: 97% Weight: 97 kg (213 lb 13.5 oz) Height: 175.3 cm (5' 9) Patient is alert and in no distress. Dress is appropriate. Mood is appropriate Breathing appears regular and unstressed Neurologic examination: Cognitively intact. No deficits. No formal MOCA performed. CN: Pupils equal and reactive to light, extraocular movements intact with no nystagmus, face is symmetric with no facial droop, facial sensation intact bilaterally to light touch. V1-3, hearing intact bilaterally, symmetric evaluation of the soft palate, tongue is midline with no deviation, shoulder shrug is symmetric. Motor Examination: Right Upper Extremity: (of 5) Left Upper Extremity: (of 5) Shoulder Abduction: Deltoid (Ax/C5) 5 Shoulder Abduction 5 Elbow Flexion: Biceps (MC/R and C5/6) 5 Elbow Flexion 5 Elbow Extension: Triceps (R/C7) 5 Elbow Extension 5 Wrist Flexion (M/U and C6/7) 5 Wrist Flexion 5 Wrist Extension (R/C6) 5 Wrist Extension 5 Finger Abduction (U/T1) 5 Finger Abduction 5 [employer] Wms Consultant 5 [employer] Wms Consultant 5 Right Lower Extremity: (of 5) Left Lower Extremity: (of 5) Hip Flexion: Iliopsoas (F and L1/2) 5 Hip Flexion 5 Knee Extension: Quadriceps (F and L3/4) 5 Knee Extension 5 Knee Flexion: Hamstrings (S/S1) 5 Knee Flexion 5 Dorsiflexion: Tibialis Anterior (DP and L4/5) 4 Dorsiflexion 5 Plantarflexion: Gastrocnemius/Soleus (T and S1/2) 5 Plantarflexion 5 Reflexes: Right Extremities Left Lower Extremities: Triceps (C7-8R) 2 Triceps 2 Biceps (C5-6MC) 2 Biceps 2 Brachioradialis (C5-6R) 2 Brachioradialis 2 Patellar (L3-4F) 2 Patellar 2 Achilles (S1-2S) 2 Achilles 2 Sotelo's: negative bilaterally Coordination: No dysmetria on finger to nose. No tremors noted. No drift seen. Gait normal in stance and pattern. NIHSS: 1(a). Mental Status - LOC 0 = Alert and Attentive 1(b). LOC Questions 0 = Correct age and month 1(c). LOC-Commands 0 = Both 2. Gaze 0 = Normal 3. Visual Carnes 0 = Full 4. Facial Weakness 0 = Normal 5(a). Left Arm 0 = No drift 5(b). Right Arm 0 = No drift 6(a). Left Leg 0 = No drift 6(b). Right Leg 0 = No drift 7. Ataxia 0 = Absent 8. Sensory 0 = Normal 9. Aphasia 0 = None 10. Dysarthria 0 = Absent 11. Neglect 0 = None NIHSS Total (0-42): 0 Labs/studies: Zio 07/05/23: I reviewed the available rhythm strips The underlying rhythm was sinus rhythm with Average HR of 77 bpm The maximum heart rate recorded in sinus rhythm was 139 bpm The minimum heart rate recorded was 48 bpm 4 short runs of narrow complex tachycardia possibly atrial tachycardia and the longest run lasted for 7 beats Rare PACs and PVCs Jes Salmon MD Patient Name: Joss Oropeza : 1945 Ordering Provider: SRAVANTHI SUAREZ Indication: G45.9 Transient cerebral ischemic attack, unspecified Type of Monitor: Extended Monitoring-Zio Patch Enrollment Dates: 06/10/2023-06/24/2023 IRHYTHM FINDINGS: Patient had a min HR of 29 bpm, max HR of 139 bpm, and avg HR of 77 bpm. Predominant underlying rhythm was Sinus Rhythm. 4 Supraventricular Tachycardia runs occurred, the run with the fastest interval lasting 6 beats with a max rate of 125 bpm, the longest lasting 7 beats with an avg rate of 114 bpm. Second Degree AV Block-Mobitz I (Wenckebach) was present. Isolated SVEs were rare (<1.0%), SVE Couplets were rare (<1.0%), and SVE Triplets were rare (<1.0%). Isolated VEs were rare (<1.0%, 166), VE Couplets were rare (<1.0%, 117), and VE Triplets were rare (<1.0%, 2). Recent Results (from the past 4464 hour(s)) ECHO Collection Time: 06/10/23 2:16 PM Impression CONCLUSIONS: - Technically difficult exam due to body habitus. - Exam indication: TIA - The left ventricle is normal in size. Left ventricular systolic function is normal. EF = 55 5% (2D biplane) Grade I left ventricular diastolic dysfunction. - The right ventricle is normal in size. Right ventricular systolic function is normal. - Aortic valve sclerosis without stenosis. - Exam was compared with the prior CC echocardiographic exam performed on 06/25/2020, there is no significant change. * * * Final * * * MRI Report MRI BRAIN WO IVCON Exam End: 06/09/2023 10:00 AM (Final result) Narrative: * * *Final Report* * * DATE OF EXAM: Jun 09 2023 10:00AM FVM [id number] - MRI BRAIN WO IVCON / PROCEDURE REASON: Transient ischemic attack (TIA) * * * * Physician Interpretation * * * * EXAMINATION: MRI BRAIN WO IVCON CLINICAL HISTORY: TIA TECHNIQUE: Routine noncontrast MRI protocol including diffusion images. MQ: [id number] COMPARISON: MRI brain 06/25/2020.. RESULT: Acute Change: There is no evidence of restricted diffusion to suggest an acute infarct. Hemorrhage: No evidence of prior parenchymal hemorrhage on the SWI. Mass Lesion/ Mass Effect: No evidence of an intracranial mass or extra-axial fluid collection. No significant mass effect. Chronic Change: Scattered patchy areas of increased T2 and FLAIR signal are present in the supratentorial white matter which is a nonspecific finding but likely represents mild chronic microvascular ischemia. Parenchyma: There is moderate generalized parenchymal volume loss. The brain parenchyma is otherwise within normal limits of signal intensity and morphology. Ventricles: Ventriculomegaly corresponds to the degree of parenchymal volume loss. Skull Base: Hypothalamic and pituitary region are grossly normal. Craniocervical junction is normal. No significant marrow replacement process. Vasculature: Major intracranial arterial structures, and dural venous sinuses show typical flow void, suggesting patency by spin echo criteria. Other: The visualized paranasal sinuses and mastoid air cells are clear. The orbits and extracranial soft tissues are unremarkable. Impression: IMPRESSION: No acute intracranial findings. Moderate diffuse parenchymal volume loss and mild sclerotic chronic microvascular ischemia. Backhaul Driver: PSCB Transcribe Date/Time: Jun 09 2023 11:34A Dictated by : SELENA DISLA MD This examination was interpreted and the report reviewed and electronically signed by: SELENA DISLA MD on Jun 09 2023 11:36AM EST CT Brain Report CTA HEAD W IVCON Exam End: 06/08/2023 6:29 PM (Edited Result - FINAL) Addendum: * * *Final Report* * * DATE OF EXAM: Jun 08 2023 6:29PM FVC 0022 - CTA HEAD W IVCON / PROCEDURE REASON: Focal neuro deficit, new, fixed, or worsening, 4.5 to 24 hours, NIHSS < 6, strok * * * * Physician Interpretation * * * * EXAMINATION: CTA NECK W IVCON, CTA HEAD W IVCON, CT BRAIN WO IVCON HISTORY: Word finding difficulty, symptoms resolved. TECHNIQUE: Routine CT of the brain without IV contrast. Next, high resolution axial images were obtained through the head, neck and superior mediastinum following bolus administration of intravenous contrast for CT angiography. 3D maximum intensity projection images were created, reviewed and archived . MQ: [id number] Contrast: 80 mL Omnipaque [address] Radiation dose: Integrated Dose-Length Product (DLP) for this visit = 1364 mGy*cm. CT Dose Reduction Employed: No dose reduction techniques were required COMPARISON: None. RESULT: BRAIN: Acute change: No evidence of an acute infarct or other acute parenchymal process. ASPECT Score = 10 Hemorrhage: No evidence of acute intracranial hemorrhage. ECASS hemorrhagic transformation score: Not Applicable Mass Lesion / Mass Effect: There is no evidence of an intracranial mass or extra-axial fluid collection. No significant mass effect. Chronic change: Patchy foci of low attenuation coefficient are present within white matter which is a nonspecific finding but likely represents moderate microvascular ischemia. Parenchyma: There is moderate generalized volume loss for age. The brain parenchyma is otherwise within normal limits for age. Ventricles: Ventricular enlargement concordant with the degree of parenchymal volume loss. Other: The visualized paranasal sinuses are grossly clear. The skull and visualized extracranial soft tissues are grossly normal. NECK: Soft tissues: The soft tissue planes are maintained throughout. No evidence of a soft tissue mass in the neck or superior mediastinum. No significant lymphadenopathy is seen. Spine: Alignment is normal. Moderate degenerative changes are present. Lung apices: The visualized lung apices are clear. CT ARTERIOGRAM: Extracranial Circulation: Aortic Arch: There is a normal branching pattern from the aortic arch. There is no significant stenosis in the proximal brachiocephalic vessels. Carotid Stenosis: Right Common: No significant stenosis. Right Internal Carotid Plaque: Moderate partially calcified atherosclerotic plaque. Right Internal Carotid Stenosis (% by NASCET Criteria): 40% Left Common: No significant stenosis. Left Internal Carotid Plaque: Mild plaque formation. Left Internal Carotid Stenosis (% by NASCET Criteria): Less than 25% Cervical Vertebral Arteries: Patency: Bilateral Dominance: Right Intracranial Circulation: Anterior Circulation: Mild to moderate stenosis of the bilateral carotid siphons due to circumferential atherosclerotic plaque. Bilateral ACAs and MCAs are patent. No aneurysm is identified. Vertebrobasilar Circulation: Patent bilateral V4 vertebral artery segments, basilar artery, and major branch vessels. Both clinical education manager are patent with conventional origin on the left and origin on the right. Dural venous sinuses and major deep draining veins are patent. Egg Grader (topogram) images: No significant findings. IMPRESSION: 1. No acute intracranial findings. Chronic changes as described. 2. No large vessel occlusion or high-grade arterial stenosis intracranially. 3. No hemodynamically significant stenosis of the extracranial carotid or vertebral artery segments. Arterial blood flow was measured to detect acute large vessel occlusion by computer aided detection software: None. Concordance between software and imaging review: Concordant. Backhaul Driver: DIVINA Transcribe Date/Time: Jun 08 2023 6:48P Dictated by : EL NUNEZ MD This examination was interpreted and the report reviewed and electronically signed by: EL NUNEZ MD on Jun 08 2023 6:55PM EST Provider, [facility]06/08/2023 6:55 PM Latest Ref Rng 06/08/2023 06/09/2023 06/21/2023 WBC 3.70 - 11.00 k/uL 5.82 RBC 4.20 - 6.00 m/uL 1.95 (L) Hemoglobin 13.0 - 17.0 g/dL 8.0 (L) Hematocrit 39.0 - 51.0 % 24.0 (L) MCV 80.0 - 100.0 fL 123.1 (H) MCH 26.0 - 34.0 pg 41.0 (H) MCHC 30.5 - 36.0 g/dL 33.3 RDW-CV 11.5 - 15.0 % 15.3 (H) Platelet Count 150 - 400 k/uL 121 (L) MPV 9.0 - 12.7 fL 12.0 Neut% % 61.3 Abs Neut (ANC) 1.45 - 7.50 k/uL 3.57 Lymph% % 31.8 Abs Lymph 1.00 - 4.00 k/uL 1.85 Donley% % 5.7 Abs Donley <0.87 k/uL 0.33 Eosin% % 0.3 Abs Eosin <0.46 k/uL <0.03 Baso% % 0.7 Abs Baso <0.11 k/uL 0.04 Immature Gran % % 0.2 IMMATURE GRANS (ABS) <0.10 k/uL <0.03 DTYPE Auto Protein, Total 6.3 - 8.0 g/dL 6.4 Albumin 3.9 - 4.9 g/dL 3.9 Calcium 8.5 - 10.2 mg/dL 9.1 Bilirubin, Total 0.2 - 1.3 mg/dL 0.2 Alkaline Phosphatase 38 - 113 U/L 55 AST 14 - 40 U/L 16 ALT 10 - 54 U/L 11 Glucose 74 - 99 mg/dL 124 (H) BUN 9 - 24 mg/dL 18 Creatinine 0.73 - 1.22 mg/dL 1.00 Sodium 136 - 144 mmol/L 139 Potassium 3.7 - 5.1 mmol/L 4.3 Chloride 97 - 105 mmol/L 107 (H) CO2 22 - 30 mmol/L 22 Anion Gap 9 - 18 mmol/L 10 eGFR >=60 mL/min/1.73m 76 Cholesterol, Total <200 mg/dL 115 Triglyceride <150 mg/dL 284 (H) HDL Cholesterol >39 mg/dL 39 (L) Non HDL Cholesterol <130 mg/dL 76 Fasting Time -- VLDL Cholesterol <30 mg/dL 57 (H) TC:HDL Ratio <5.10 2.95 LDL Cholesterol <100 mg/dL 19 LDL:HDL Ratio <2.54 0.49 Hemoglobin A1C 4.3 - 5.6 % 9.2 (H) Estimated Average Glucose mg/dL 217 TSH 0.270 - 4.200 mIU/L 2.680 Legend: (H) High (L) Low Assessment/Plan: G45.9 TIA (transient ischemic attack) (primary encounter diagnosis) I44.1 Nick I47.10 SVT (supraventricular tachycardia) ([facility]) Comment: Pt previously seen for follow-up after TIA occurring on 05/31 at which time he experienced an episode of garbled speech and again on 06/07. Previous stroke workup included CT/a head and neck, MRI brain, EEG, and echo. LDL was 19 and A1c was 9.2. He has since completed 21-day course of DAPT as well as outpatient teacher drama. At time of appointment today he reports no further strokelike symptoms. Exam unchanged and nonfocal. Reviewed teacher drama results with pt. results show evidence of SVT as well as second-degree AV block. At this time recommendations will remain as follows: -Consult to cardiology for teacher drama results noted above (copy provided for patient should he choose to follow with outside cardiology given pt location and outside PCP). -Continue ASA 81mg once daily. -Continue statin as previously prescribed. -Continue to manage BG with PCP; goal BG<140. -Continue to manage BP with PCP; goal BP<140/90. He may continue to follow with his PCP for stroke risk factor management and monitoring. He may follow-up with general neurology in 6-12mos if not following with his PCP. Reviewed red flag symptoms and importance of calling 911 should these symptoms occur. Office Visit on 09/19/23 CONSULT TO CARDIOLOGY Rowena Parra APRN.CNP I spent a total of 30 minutes on the date of the service which included preparing to see the patient, [id number] patient care, completing clinical documentation, obtaining and/or reviewing separately obtained history, performing a medically appropriate examination, counseling and educating the patient/family/caregiver, and ordering medications, tests, or procedures. documented in this encounter [facility] 09-19-2023 Note HNO ID: [id number] Author: ROWENA PARRA APRN.CNP Service: ? Author Type: Nurse Practitioner Type: Progress Notes Filed: 09/19/2023 14:31 Note Text: [facility] [place] Follow-up Visit Follow-up note September 18, 2023 HPI: Mr. Oropeza presents today for a follow-up visit. Per his previous visit on 06/28/23: G45.9 TIA (transient ischemic attack) (primary encounter diagnosis) Comment: Pt presenting today for follow-up after TIA. He reports that on 05/31 he experienced an episode of garbled speech and was taken to the ED and again on 06/07. He was admitted at [place] where stroke workup was completed including CT/A head and neck, MRI brain, EEG, and echo. Testing was unremarkable. LDL was 19. Recent A1c was 9.2. He was diagnosed with a TIA and was discharged on DAPT for 21 days and with a teacher drama. At time of appointment today, he reports he has not experienced any further symptoms. Exam in office is nonfocal. At this time recommendations will remain as follows: -Remove and mail back extended teacher drama (as it has been 2 weeks). -Continue DAPT for remainder of 21 days then continue ASA monotherapy. -Continue statin as previously prescribed. -Continue to manage BG with PCP; goal BG<140. -Continue to manage BP with PCP; goal BP<140/90. He will follow-up in 3 months or sooner should new or changing symptoms occur. Reviewed red flag symptoms and importance of calling 911 should these symptoms occur (information provided on AVS). Feels very weak since his previous visit. Has been getting medication; 3 shots every 3 weeks. Hgb has been tapering down. Had infusion at [place]. [place] slight improvement after that. No focal weakness. No further garbled speech, slurred speech, difficulty understanding conversation. No sensory deficits. No balance concerns. Slight dizziness every once in a while; lightheadedness. Taking ASA daily. BP was slightly elevated after infusion. Still taking rosuvastatin. 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 PAST SURGICAL HISTORY Procedure Laterality Date ADENOIDECTOMY PRIMARY Adenoidectomy COLONOSCOPY FLX DX W/COLLJ SPEC WHEN PFRMD Colonoscopy COLONOSCOPY FLX DX W/COLLJ SPEC WHEN PFRMD Colonoscopy LAPAROSCOPY SURG CHOLECYSTECTOMY Cholecystectomy, lap PAST SURGICAL HISTORY OF 01-17-12 BACK SURGERY PAST SURGICAL HISTORY OF SKIN LESION--PRE CANCER SKULL PAST SURGICAL HISTORY OF SKIN LESION--SKIN CANCER LEFT HAND PICC LINE MRSA INFECTION RT/LT HEART CATHETERS CC AND CA, R AND L heart, NEGATIVE TONSILLECTOMY PRIMARY/SECONDARY Tonsillectomy Current Outpatient Medications on File Prior to Visit Medication Sig clopidogrel (PLAVIX) 75 mg tablet Take 1 tablet by mouth once daily for 19 doses. metFORMIN (GLUCOPHAGE) 1,000 mg tablet Take 1,000 mg by mouth two times a day with meals. Once in am and once in pm SITagliptin (ZITUVIO) 100 mg tablet Take by mouth. aspirin 81 mg chewable tablet Take by mouth. finasteride 0.1% minoxidil 7.5% topical solution (CPD) Finasteride Active 5 MG DAILY July 10, 2018 9:31am IFTIKHAR VAZQUEZ U-100 INSULIN 100 unit/mL (3 mL) Inject 25 Units subcutaneously every morning. BD CRISTAL 2ND GEN PEN NEEDLE 32 gauge x 5/32 glimepiride (AMARYL) 4 mg tablet Take 4 mg by mouth two times a day with meals. rosuvastatin (CRESTOR) 10 mg tablet Take 1 tablet by mouth daily at bedtime. MEN'S MULTI-VITAMIN ORAL Take 1 tablet by mouth. cyanocobalamin (VITAMIN B-12) 1,000 mcg tab Take 1,000 mcg by mouth once daily. tamsulosin (FLOMAX) 0.4 mg Take 0.4 mg by mouth two times a day. finasteride (PROSCAR) 5 mg tablet Take 5 mg by mouth once daily. alendronate (FOSAMAX) 70 mg tablet Take 70 mg by mouth one time a week. In AM with cup of water on empty stomach. Nothing else by mouth and stay upright for 30 min. No current facility-administered medications on file prior to visit. Social History Tobacco Use Smoking status: Never Smokeless tobacco: Never Vaping Use Vaping Use: Never used Substance Use Topics Alcohol use: Yes Comment: social/rare Drug use: No ALLERGIES Allergen Reactions Maxipime [Cefepime] Unknown Review of Systems: See HPI. Physical Exam: 09/19/23 1319 BP: 138/70 BP Site: Left Arm BP Position: Sitting BP Cuff Size: Regular Adult Pulse: 68 SpO2: 97% Weight: 97 kg (213 lb 13.5 oz) Height: 175.3 cm (5' 9) Patient is alert and in no distress. Dress is appropriate. Mood is appropriate Breathing appears regular and unstressed Neurologic examination: Cognitively intact. No deficits. No formal MOCA performed. CN: Pupils equal and reactive to light, extraocular movements intact with no nystagmus, face is symmetric with no facial droop, facial sensation intact bilaterally to light touch. V1-3, hear (more content not included)... [facility] 09-18-2023 Note [place] 09-18-2023 History of Presen t illness Narrative Pt arrived to infusion in stable condition. Appears well, but SOB with ambulation noted. Pt VSS. PIV started. Assessment unremarkable, pt states fatigue is not improved and he continues to tire easily with ADL's. 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 RBC's up as ordered. Pt verbalized understanding to notify RN of SOB, chest pain, back pain, chills and itching. Will monitor pt and VS throughout treatment. Rate increase tolerated. Pt without S&S, no issues. Will continue to monitor. Transfuse complete. VS noted. Pt BP elevated from arrival. Denies SOB, chest pain, chills or discomfort. No blurred vision, headache or concerns PIV removed intact. pt tolerated well. DSD placed. Pt ambulated to lobby, gait steady. Pt will reach out next week if no improvement to fatigue noted. documented in this encounter [facility] 09-13-2023 Telephone encounter Note Good afternoon, Tianna Hgb was 7.1 today. 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 I did review with him that you said he could get a blood transfusion if he needed one based on our previous discussion and he has agreed. I was able to schedule him 09/19/23 for a transfusion at [facility]. He is planning to come on Saturday for labs and a T&S. I can reach out to you Saturday. Thank you, Fabiola [facility] 09-13-2023 Miscellaneous Notes Good afternoon, Tianna Hgb was 7.1 today. 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 I did review with him that you said he could get a blood transfusion if he needed one based on our previous discussion and he has agreed. I was able to schedule him 09/19/23 for a transfusion at [facility]. He is planning to come on Saturday for labs and a T&S. I can reach out to you Saturday. Thank you, Fabiola documented in this encounter [facility] 09-13-2023 Note [facility] [facility] 09-13-2023 History of Presen t illness Narrative Pt arrived to infusion in stable condition. SOB with ambulating to infusion room noted. VSS. 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 Work is piling up. Discuss the possibility of receiving a blood transfusion next week. 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 Dr. Zelaya notified. Injections given to left and right upper arms as ordered. Pt tolerated well. Denies questions or needs. Ambulated to lobby without incident. documented in this encounter [facility] 08-23-2023 Telephone encounter Note Pt verbalized understanding to get labs drawn sooner than 3 weeks for worsening symptoms of fatigue and that transfusion support is an option if he needs it. Pt understands the plan to monitor results of dose increase before additional increase can be ordered. Just fyi. [facility] 08-23-2023 Miscellaneous Notes Pt verbalized understanding to get labs drawn sooner than 3 weeks for worsening symptoms of fatigue and that transfusion support is an option if he needs it. Pt understands the plan to monitor results of dose increase before additional increase can be ordered. Just fyi. Ok, thank you. I figured it had to do with give it time to work. I will let him know. I only just increased it and I have to wait a few cycles to see if that helps. He can get transfused though. Joss is in Infusion today for his Reblozyl inj. Hgb is 7.3 today. He is asking when he would receive another dose increase? He is feeling frustrated with being tired all the time and is discouraged. I did educated him to get his labs drawn sooner than 3 weeks if his symptoms worsen. I will call him with any information you can provide. Thank you documented in this encounter [facility] 08-23-2023 Note [facility] 08-23-2023 Telephone encounter Note Ok, thank you. I figured it had to do with give it time to work. I will let him know. [facility] 08-23-2023 History of Presen t illness Narrative Pt arrived to infusion. SOB with ambulation noted. Pt appears well, but states he is feeling very tired and frustrated with not having more energy. VSS Labs drawn, Hgb 7.3- Pt asking why medication dose was not increase. Dr. Zelaya notified of patient frustration and concern. Pt verbalized understanding if his fatigue or SOB worsen he can have his labs drawn sooner than 3 weeks. Pt ambulated to [facility] without incident. documented in this encounter [facility] 08-23-2023 Telephone encounter Note I only just increased it and I have to wait a few cycles to see if that helps. He can get transfused though. [facility] 08-23-2023 Telephone encounter Note Joss is in Infusion today for his Reblozyl inj. Hgb is 7.3 today. He is asking when he would receive another dose increase? He is feeling frustrated with being tired all the time and is discouraged. I did educated him to get his labs drawn sooner than 3 weeks if his symptoms worsen. I will call him with any information you can provide. Thank you [facility] 08-02-2023 History of Presen t illness Narrative Pt arrived to infusion without incident. Appears well. States fatigue is not better or worse than last visit. VSS, Labs drawn without issue. Pt tolerated well. Pt Hgb resulted 7.4. Reblozyl injection given x3 sites. Pt denies questions or needs. Tolerated injection. Ambulated to lobby without incident. . documented in this encounter [facility] 08-01-2023 History of Presen t illness Narrative Joss Oropeza 1945 August 01, 2023 HPI: Joss Oropeza is a 78 year old male who presents as a hospital follow up. Mr. Oropeza is a 78 year old male who presented to ER on 05/22/22 for anemia. This is a 78 year old male who presented with for low hgb from primary care office. Patient states he was 6.7 at PCP office and 6.0 at [facility]. PMHx of chronic anemia (baseline 9-11), diabetes, hepatic steatosis, CVA on ASA. He reports worsening shortness of breath over the last 1 year associated with weakness and fatigue. He denies any chest pain. He denies any overt GI bleeding, no blood or darker stool, no weight loss, no abdominal pain, no issues swallowing, and no issues with constipation or diarrhea. Reports several colonoscopies in the past with Dr. Hernandez in [place], last done July 2021 that had one polyp removed. Remote EGD. He does endorse some heartburn and reflux occasionally. He denies any NSAID use besides ASA 81 mg, no blood thinners, no smoking, and only rare alcohol use. Hgb this morning 7.2 from 5.9 s/p 1 unit of blood. Platelets low 114, and MCV elevated. Kidney function normal. Iron studies showing normal iron, ferritin elevated, folate and b12 normal. CT a/p showed no acute findings in abdomen and pelvis. VSS. GI consulted for anemia. I was asked to see him for macrocytic anemia prior to d/c. He was SOB on admission and now feels better. He received 1 unit PRBC on 05/22 and another on 05/23/22. He is very active on his tractor at home. He is a non smoker. Does not drink alcohol. No family hx of bone marrow issues. Denies any bleeding. Interval history: Today he is here for follow up. With today. Doing well on luspatercept. Getting this tomorrow. Feeling well. Fatigued and tired all the time. Last PRBC 02/13/23. Getting shots in [place] every 3 weeks on Fridays. Getting his labs done on before the shot. Taking insulin daily. Just had it doubled to 25 units per day. Still not making any progress getting to <200. No major changes. 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 PAST SURGICAL HISTORY Procedure Laterality Date ADENOIDECTOMY PRIMARY <AGE 10 Adenoidectomy COLONOSCOPY FLX DX W/COLLJ SPEC WHEN PFRMD Colonoscopy COLONOSCOPY FLX DX W/COLLJ SPEC WHEN PFRMD Colonoscopy LAPAROSCOPY SURG CHOLECYSTECTOMY Cholecystectomy, lap PAST SURGICAL HISTORY OF 11-22-12 BACK SURGERY PAST SURGICAL HISTORY OF SKIN LESION--PRE CANCER SKULL PAST SURGICAL HISTORY OF SKIN LESION--SKIN CANCER LEFT HAND PICC LINE MRSA INFECTION RT/LT HEART CATHETERS CC & CA, R & L heart, NEGATIVE TONSILLECTOMY PRIMARY/SECONDARY <AGE 10 Tonsillectomy Current Outpatient Medications Medication Sig Dispense Refill metFORMIN (GLUCOPHAGE) 1,000 mg tablet Take 1,000 mg by mouth two times a day with meals. Once in am and once in pm SITagliptin (ZITUVIO) 100 mg tablet Take by mouth. aspirin 81 mg chewable tablet Take by mouth. finasteride 0.1% minoxidil 7.5% topical solution (CPD) Finasteride Active 5 MG DAILY July 10, 2018 9:31am IFTIKHAR VAZQUEZ U-100 INSULIN 100 unit/mL (3 mL) Inject 25 Units subcutaneously every morning. BD CRISTAL 2ND GEN PEN NEEDLE 32 gauge x /32 glimepiride (AMARYL) 4 mg tablet Take 4 mg by mouth two times a day with meals. MEN'S MULTI-VITAMIN ORAL Take 1 tablet by mouth. cyanocobalamin (VITAMIN B-12) 1,000 mcg tab Take 1,000 mcg by mouth once daily. tamsulosin (FLOMAX) 0.4 mg Take 0.4 mg by mouth two times a day. finasteride (PROSCAR) 5 mg tablet Take 5 mg by mouth once daily. alendronate (FOSAMAX) 70 mg tablet Take 70 mg by mouth one time a week. In AM with cup of water on empty stomach. Nothing else by mouth and stay upright for 30 min. clopidogrel (PLAVIX) 75 mg tablet Take 1 tablet by mouth once daily for 19 doses. 19 tablet 0 rosuvastatin (CRESTOR) 10 mg tablet Take 1 tablet by mouth daily at bedtime. 90 tablet 3 No current facility-administered medications for this visit. ALLERGIES Allergen Reactions Maxipime [Cefepime] Unknown FAMILY HISTORY Problem Relation Age of Onset Stroke Mother Ischemic Heart Disease Father Social History Tobacco Use Smoking status: Never Smokeless tobacco: Never Vaping Use Vaping Use: Never used Substance Use Topics Alcohol use: Yes Comment: social/rare Drug use: No I have reviewed the PMHx, PSHx, social history and ROS on August 01, 2023 - all new information noted. Review of Systems: Constitutional: No fevers, chills, drenching night sweats or unintentional weight loss. +fatigue. HEENT: No yellowing of the eyes, no vision changes, no hearing loss or ear pain, no nosebleeds or drainage, no sore throat. Neck: No complaints. Chest: No SOB or cough, +occasional [place], no hemoptysis, no wheezing. Breast: No complaints. Heart: No chest pain, pressure or tightness. No racing heartbeat. Abdominal: No pain or difficulty with swallowing, no N/V, no early satiety, no abdominal pain or bloating, no diarrhea or constipation, no change in bowel habits, no blood in the urine. Genitourinary: No pain or burning with urination, no incontinence, no blood in the urine. Extremities: no pain or swelling. Neurological: No headaches, no numbness or tingling in the extremities, no double vision. Skin: No rashes or ulcerations, no change in pigmentation. Nodes: no enlargement per patient. Heme: No easy bruising or bleeding, no yellowing of the eyes or darkening of urine. Psychiatric: no anxiety or depression. Immunologic: No recurrent or persistent infections of the sinuses, lungs or urinary tract. Endocrine: No hair or nail changes, no polyuria, polydipsia, or polyphagia. Appetite normal. I have performed the physical exam on August 01, 2023 - all new findings noted below. Physical Exam: BP 150/68[right arm[ Pulse 94 Ht 5' 9 (1.75m) Wt 219 lb (99.3kg) SpO2 98% BMI 32.33 kg/(m^2). ECOG PS: 0 Pain Intensity: 0/10 General: Age-appropriate well developed. Appears well. Fatigued. HEENT: Normocephalic, no sclera icterus, external ears normal, oral cavity clear. Neck: Supple, no thyroid nodules, no JVD. Chest: Clear bilaterally, no wheezes, not labored. Heart: Normal S1 and S2, no abnormal sounds, peripheral pulses synchronized. +murmur grade 1/6 Abdomen: Soft, nontender, nondistended, bowel sounds present, no organomegaly or mass, no rigidity. /Rectal: deferred Extremities: No cyanosis, clubbing, gross deformities, or palpable cords. Neurological: Cranial nerves II through XII are intact bilaterally, strength normal in the upper and lower extremities, no focal deficits. Skin: Warm and dry with no rashes or ulcerations. Nodes: No palpable adenopathy in the cervical, supraclavicular, infraclavicular, or axillary regions. Hematologic: no bruising or petechiae. Psychiatric: Alert and oriented x3. Emotional well-being assessment was performed. Pt denies depression, distress, and or problems with coping or adjustment. Labs CBC: No results for input(s): WBC, HB, HCT, PLT, MCV, RDWCV, NEUTP, ABSNEUT, LYMPHP, MONOP, EODINP in the last 168 hours. COAG: No results for input(s): APTT, INR in the last 168 hours. BMP: No results for input(s): GLUC, NA, K, CHLOR, CO2, ANION, BUN, CREAT in the last 168 hours. CHEM: No results for input(s): ALB, TPROT, CA, MG in the last 168 hours. Appointment on 07/18/2023 Component Date Value WBC 07/18/2023 4.29 RBC 07/18/2023 1.97 (L) Hemoglobin 07/18/2023 7.9 (L) Hematocrit 07/18/2023 24.2 (L) MCV 07/18/2023 122.8 (H) MCH 07/18/2023 40.1 (H) MCHC 07/18/2023 32.6 RDW-CV 07/18/2023 16.3 (H) Platelet Count 07/18/2023 119 (L) MPV 07/18/2023 11.9 Neutrophils % 07/18/2023 53.7 Abs Neut 07/18/2023 2.31 Lymphocytes % 07/18/2023 37.1 Abs Lymph 07/18/2023 1.59 Monocytes % 07/18/2023 7.7 Abs Donley 07/18/2023 0.33 Eosinophils % 07/18/2023 0.5 Abs Eosin 07/18/2023 <0.03 Basophils % 07/18/2023 0.5 Abs Baso 07/18/2023 <0.03 Immature Granulocytes % 07/18/2023 0.5 Abs Immature Gran 07/18/2023 <0.03 Diff Type 07/18/2023 Auto ABO 07/18/2023 B Rh(D) 07/18/2023 Positive Antibody Screen 07/18/2023 Negative Type and Screen Expirati* 07/18/2023 07/21/2023 23:59 HIstorical Ab Scr Status 07/18/2023 NEGATIVE Infusion Center on 07/12/2023 Component Date Value WBC 07/12/2023 2.80 (L) RBC 07/12/2023 1.83 (L) Hemoglobin 07/12/2023 7.4 (L) Hematocrit 07/12/2023 22.6 (L) MCV 07/12/2023 123.5 (H) MCH 07/12/2023 40.4 (H) MCHC 07/12/2023 32.7 RDW-CV 07/12/2023 15.9 (H) Platelet Count 07/12/2023 100 (L) MPV 07/12/2023 11.2 NRBC 07/12/2023 0.0 Absolute nRBC 07/12/2023 <0.01 Neutrophils % 07/12/2023 48.0 Abs Neut (Segs + Bands) 07/12/2023 1.34 (L) Lymphocytes % 07/12/2023 50.0 Abs Lymph (Normal + Reac* 07/12/2023 1.40 Monocytes % 07/12/2023 2.0 Abs Donley 07/12/2023 0.06 Eosin% 07/12/2023 0.0 Abs Eosin 07/12/2023 0.00 Basophils % 07/12/2023 0.0 Abs Baso 07/12/2023 0.00 Platelet Estimate 07/12/2023 Decreased Red Cell Morph 07/12/2023 Reviewed: see results of individual morphologies Polychromasia 07/12/2023 Slight Anisocytosis 07/12/2023 Present Diff Type 07/12/2023 Manual ABO 07/12/2023 B Rh(D) 07/12/2023 Positive Antibody Screen 07/12/2023 Negative Type and Screen Expirati* 07/12/2023 07/15/2023 23:59 HIstorical Ab Scr Status 07/12/2023 NEGATIVE Appointment on 06/21/2023 Component Date Value WBC 06/21/2023 5.82 RBC 06/21/2023 1.95 (L) Hemoglobin 06/21/2023 8.0 (L) Hematocrit 06/21/2023 24.0 (L) MCV 06/21/2023 123.1 (H) MCH 06/21/2023 41.0 (H) MCHC 06/21/2023 33.3 RDW-CV 06/21/2023 15.3 (H) Platelet Count 06/21/2023 121 (L) MPV 06/21/2023 12.0 Neutrophils % 06/21/2023 61.3 Abs Neut 06/21/2023 3.57 Lymphocytes % 06/21/2023 31.8 Abs Lymph 06/21/2023 1.85 Monocytes % 06/21/2023 5.7 Abs Donley 06/21/2023 0.33 Eosinophils % 06/21/2023 0.3 Abs Eosin 06/21/2023 <0.03 Basophils % 06/21/2023 0.7 Abs Baso 06/21/2023 0.04 Immature Granulocytes % 06/21/2023 0.2 Abs Immature Gran 06/21/2023 <0.03 Diff Type 06/21/2023 Auto ABO 06/21/2023 B Rh(D) 06/21/2023 Positive Antibody Screen 06/21/2023 Negative Type and Screen Expirati* 06/21/2023 06/24/2023 23:59 HIstorical Ab Scr Status 06/21/2023 NEGATIVE Admission on 06/08/2023, Discharged on 06/10/2023 Component Date Value WBC 06/08/2023 6.73 RBC 06/08/2023 2.32 (L) Hemoglobin 06/08/2023 9.3 (L) Hematocrit 06/08/2023 27.4 (L) MCV 06/08/2023 118.1 (H) MCH 06/08/2023 40.1 (H) MCHC 06/08/2023 33.9 RDW-CV 06/08/2023 15.9 (H) Platelet Count 06/08/2023 132 (L) MPV 06/08/2023 12.9 (H) Absolute nRBC 06/08/2023 0.05 (H) Glucose 06/08/2023 201 (H) BUN 06/08/2023 23 Creatinine 06/08/2023 1.04 Sodium 06/08/2023 135 (L) Potassium 06/08/2023 4.4 Chloride 06/08/2023 101 CO2 06/08/2023 22 Anion Gap 06/08/2023 12 Calcium, Total 06/08/2023 9.7 Estimated Glomerular Jim* 06/08/2023 73 APTT 06/08/2023 21.7 (L) PT Sec 06/08/2023 11.7 INR 06/08/2023 1.1 DEON High Sensitivity 06/08/2023 18 (H) Ventricular Rate 06/08/2023 69 Atrial Rate 06/08/2023 69 P-R Interval 06/08/2023 175 QRS Duration 06/08/2023 86 QT Interval 06/08/2023 401 QTC Calculation ([place]) 06/08/2023 430 Calculated P [place] 06/08/2023 - Calculated R [place] 06/08/2023 5 Calculated T [place] 06/08/2023 3 Ventricular Rate 06/08/2023 69 Atrial Rate 06/08/2023 69 P-R Interval 06/08/2023 175 QRS Duration 06/08/2023 86 QT Interval 06/08/2023 401 QTC Calculation ([place]azett) 06/08/2023 430 Calculated P [place] 06/08/2023 - Calculated R [employer] [place] 06/08/2023 5 Calculated T [place] 06/08/2023 3 Cholesterol, Total 06/08/2023 115 Triglyceride 06/08/2023 284 (H) HDL Cholesterol 06/08/2023 39 (L) Non HDL Cholesterol 06/08/2023 76 Fasting Time 06/08/2023 VLDL Cholesterol 06/08/2023 57 (H) TC:HDL Ratio 06/08/2023 2.95 LDL Cholesterol 06/08/2023 19 LDL:HDL Ratio 06/08/2023 0.49 Hemoglobin A1C 06/09/2023 9.2 (H) Estimated Average Glucose 06/09/2023 217 WBC 06/09/2023 5.94 RBC 06/09/2023 2.10 (L) Hemoglobin 06/09/2023 8.3 (L) Hematocrit 06/09/2023 24.8 (L) MCV 06/09/2023 118.1 (H) MCH 06/09/2023 39.5 (H) MCHC 06/09/2023 33.5 RDW-CV 06/09/2023 15.7 (H) Platelet Count 06/09/2023 119 (L) MPV 06/09/2023 12.6 Absolute nRBC 06/09/2023 0.05 (H) Magnesium 06/09/2023 1.8 Protein, Total 06/09/2023 6.4 Albumin 06/09/2023 3.9 Calcium, Total 06/09/2023 9.1 Bilirubin, Total 06/09/2023 0.2 Alkaline Phosphatase 06/09/2023 55 AST 06/09/2023 16 ALT 06/09/2023 11 Glucose 06/09/2023 124 (H) BUN 06/09/2023 18 Creatinine 06/09/2023 1.00 Sodium 06/09/2023 139 Potassium 06/09/2023 4.3 Chloride 06/09/2023 107 (H) CO2 06/09/2023 22 Anion Gap 06/09/2023 10 Estimated Glomerular Jim* 06/09/2023 76 TSH 06/09/2023 2.680 Color 06/09/2023 Colorless Clarity 06/09/2023 Clear Glucose, Urine 06/09/2023 Negative Bilirubin, Urine 06/09/2023 Negative Ketones, Urine 06/09/2023 Negative Specific [place], Ur 06/09/2023 1.023 Hemoglobin/Blood,Ur 06/09/2023 Negative pH, Urine 06/09/2023 6.0 Protein, Urine 06/09/2023 Negative Urobilinogen 06/09/2023 Normal Nitrites 06/09/2023 Negative Leuk Esterase 06/09/2023 Negative WBC, Urine 06/09/2023 0-5 /HPF RBC, Urine 06/09/2023 0-3 /HPF Phencyclidine Urine 06/09/2023 Negative Benzodiazepines Urine 06/09/2023 Negative Cocaine Urine 06/09/2023 Negative Amphetamines Urine 06/09/2023 Negative Cannabinoids, Urine 06/09/2023 Negative Opiates Urine 06/09/2023 Negative Barbiturates Urine 06/09/2023 Negative Ethanol, Urine 06/09/2023 <11 Oxycodone, Urine 06/09/2023 Negative Glucose, Point of Care 06/08/2023 181 (A) Glucose, Point of Care 06/09/2023 173 (A) DEON High Sensitivity 06/09/2023 18 (H) DEON High Sensitivity 06/09/2023 17 (H) Glucose, Point of Care 06/09/2023 263 (A) Glucose, Point of Care 06/09/2023 109 (A) Glucose, Point of Care 06/09/2023 126 (A) Glucose, Point of Care 06/10/2023 160 (A) Glucose, Point of Care 06/10/2023 223 (A) Glucose, Point of Care 06/10/2023 170 (A) LV Ejection Fraction 06/10/2023 55 Admission on 06/01/2023, Discharged on 06/01/2023 Component Date Value Glucose 06/01/2023 260 (H) BUN 06/01/2023 23 Creatinine 06/01/2023 1.00 Sodium 06/01/2023 136 Potassium 06/01/2023 4.3 Chloride 06/01/2023 101 CO2 06/01/2023 20 (L) Anion Gap 06/01/2023 15 Calcium, Total 06/01/2023 9.4 Estimated Glomerular Jim* 06/01/2023 76 DEON High Sensitivity 06/01/2023 18 (H) NT Pro BNP 06/01/2023 133 WBC 06/01/2023 6.49 RBC 06/01/2023 2.13 (L) Hemoglobin 06/01/2023 8.6 (L) Hematocrit 06/01/2023 26.0 (L) MCV 06/01/2023 122.1 (H) MCH 06/01/2023 40.4 (H) MCHC 06/01/2023 33.1 RDW-CV 06/01/2023 16.4 (H) Platelet Count 06/01/2023 126 (L) MPV 06/01/2023 12.0 Neutrophils % 06/01/2023 73.2 Abs Neut 06/01/2023 4.75 Lymphocytes % 06/01/2023 21.1 Abs Lymph 06/01/2023 1.37 Monocytes % 06/01/2023 4.8 Abs Donley 06/01/2023 0.31 Eosinophils % 06/01/2023 0.3 Abs Eosin 06/01/2023 <0.03 Basophils % 06/01/2023 0.3 Abs Baso 06/01/2023 <0.03 Immature Granulocytes % 06/01/2023 0.3 Abs Immature Gran 06/01/2023 <0.03 Diff Type 06/01/2023 Auto Ventricular Rate 06/01/2023 76 Atrial Rate 06/01/2023 76 P-R Interval 06/01/2023 176 QRS Duration 06/01/2023 86 QT Interval 06/01/2023 386 QTC Calculation ([place]) 06/01/2023 434 Calculated P [place] 06/01/2023 50 Calculated R [place] 06/01/2023 45 Calculated T [place] 06/01/2023 71 DEON High Sensitivity 06/01/2023 18 (H) DEON High Sensitivity 06/01/2023 17 (H) Infusion Center on 05/30/2023 Component Date Value WBC 05/30/2023 5.23 RBC 05/30/2023 2.12 (L) Hemoglobin 05/30/2023 8.4 (L) Hematocrit 05/30/2023 26.0 (L) MCV 05/30/2023 122.6 (H) MCH 05/30/2023 39.6 (H) MCHC 05/30/2023 32.3 RDW-CV 05/30/2023 16.2 (H) Platelet Count 05/30/2023 134 (L) MPV 05/30/2023 11.9 Neutrophils % 05/30/2023 57.0 Abs Neut 05/30/2023 2.98 Lymphocytes % 05/30/2023 36.3 Abs Lymph 05/30/2023 1.90 Monocytes % 05/30/2023 5.7 Abs Donley 05/30/2023 0.30 Eosinophils % 05/30/2023 0.4 Abs Eosin 05/30/2023 <0.03 Basophils % 05/30/2023 0.4 Abs Baso 05/30/2023 <0.03 Immature Granulocytes % 05/30/2023 0.2 Abs Immature Gran 05/30/2023 <0.03 Diff Type 05/30/2023 Auto ABO 05/30/2023 B Rh(D) 05/30/2023 Positive Antibody Screen 05/30/2023 Negative Type and Screen Expirati* 05/30/2023 06/02/2023 23:59 HIstorical Ab Scr Status 05/30/2023 NEGATIVE Infusion Center on 05/10/2023 Component Date Value WBC 05/10/2023 4.88 RBC 05/10/2023 2.10 (L) Hemoglobin 05/10/2023 8.4 (L) Hematocrit 05/10/2023 25.3 (L) MCV 05/10/2023 120.5 (H) MCH 05/10/2023 40.0 (H) MCHC 05/10/2023 33.2 RDW-CV 05/10/2023 17.2 (H) Platelet Count 05/10/2023 107 (L) MPV 05/10/2023 10.7 Neutrophils % 05/10/2023 57.2 Abs Neut 05/10/2023 2.79 Lymphocytes % 05/10/2023 35.7 Abs Lymph 05/10/2023 1.74 Monocytes % 05/10/2023 5.5 Abs Donley 05/10/2023 0.27 Eosinophils % 05/10/2023 0.6 Abs Eosin 05/10/2023 0.03 Basophils % 05/10/2023 0.6 Abs Baso 05/10/2023 0.03 Immature Granulocytes % 05/10/2023 0.4 Abs Immature Gran 05/10/2023 <0.03 Diff Type 05/10/2023 Auto ABO 05/10/2023 B Rh(D) 05/10/2023 Positive Antibody Screen 05/10/2023 Negative Type and Screen Expirati* 05/10/2023 05/13/2023 23:59 HIstorical Ab Scr Status 05/10/2023 NEGATIVE Lab Results Component Value Date MURRAY 869.8 (H) 05/22/2022 IRON Lab Results Component Value Date FE 128 05/22/2022 TIBC Lab Results Component Value Date TIBC 05/22/2022 Comment: Unable to assay. Specimen significantly hemolyzed. FOLATE Lab Results Component Value Date FOLATE >20.0 05/23/2022 Lab Results Component Value Date RETICP 1.8 07/03/2022 ABSRETIC 0.037 07/03/2022 MURRAY 869.8 (H) 05/22/2022 FE 128 05/22/2022 TIBC 05/22/2022 Comment: Unable to assay. Specimen significantly hemolyzed. TRANSFERSAT 05/22/2022 Comment: Unable to assay. Specimen significantly hemolyzed. Radiology: Pathology: BM biopsy 06/01/22: Variably cellular marrow with trilineage hematopoiesis and mild erythroid and megakaryocyte atypia. - Storage iron present and focally increased. The marrow is variably cellular and at least focally appears mildly increased although the biopsy is small and fragmented and suboptimal. Mild atypia is seen in the erythroids, and occasional small megakaryocytes are present. Although an early myeloid neoplasm is in the differential, this degree of atypia may be seen due to other causes including nutritional deficiencies such as vitamin B12, folate or copper, toxic exposures, autoimmune/rheumatologic etiologies, infectious etiologies, and other neoplasms. The finding of vacuolated immature erythroids in the aspirate raises the possibility of copper deficiency. Correlation with copper levels may be useful if clinically indicated. Mast cells appear increased, predominantly morphologically unremarkable. The myeloid NGS demonstrates a variant of potential clinical significance in the PPM1D gene, which raises the possibility of a clonal cytopenia of undetermined significance, although this variant is rarely germline. 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 2) Macrocytic anemia - related to #1. 3) Fatigue - likely due to anemia. 4) DM - on insulin. - trying to get BS < 200. Reviewed with pt and . Plan is to initiate PRBC if needed and ideally keep Hb between 7 and 8. I would like to try Luspatercept for him to see if we can make him transfusion independent and help slow down the progression of his CCUP. Will continue on luspatercept. No transfusions since 01/2023. Improvement 1.5 gms. Increase the dose to 1.33 has kept him steady but not really improved. Will increase the dose for tomorrow as the drug is available. Will go up to 1.75mg/m2. Indications are to stop at 11.5 Hb or > 2gm/dL climb. Continue to check labs eow per pt discussion. Offered to check once a month and will continue eow for now. The patient and his were able to ask questions and all were answered to their satisfaction. ? Mora for TOAN I will see him back in 2 mo for follow up. Parts of the HPI, ROS, exam and impression/plan may have been copied from my personal previous clinical note and remain pertinent. Current changes have been made and documented today. Other parts or data were deleted if not relevant for today. The documentation has been reviewed and edited as necessary to support the clinical decision making for today's visit. Alka Noriega MD documented in this encounter [facility] 07-18-2023 Telephone encounter Note Joss's Hgb came back at 7.9 today, up from 7.4 last week. Thank you, Fabiola [facility] 07-18-2023 Miscellaneous Notes Joss's Hgb came back at 7.9 today, up from 7.4 last week. Thank you, Fabiola Ok, I will call him and let him know to get it checked this week. Thank you. He may want to check it next week. Good Morning. Mr Oropeza's Hgb resulted at 7.4, he received his scheduled dose of Reblozyl. He appears well. Complains of typical fatigue but nothing more than what he usually experiences. I didn't know if he should get his labs drawn sooner than his next schedule injection on 08/02/2023? Or if he should continue with the dicurrent plan. I did let him know I would update you and let him know if there were any changes to the current plan. documented in this encounter [facility] 07-15-2023 Telephone encounter Note Ok, I will call him and let him know to get it checked this week. Thank you. [facility] 07-12-2023 Telephone encounter Note He may want to check it next week. [facility] 07-12-2023 Telephone encounter Note Good Morning. Mr Oropeza's Hgb resulted at 7.4, he received his scheduled dose of Reblozyl. He appears well. Complains of typical fatigue but nothing more than what he usually experiences. I didn't know if he should get his labs drawn sooner than his next schedule injection on 08/02/2023? Or if he should continue with the dicurrent plan. I did let him know I would update you and let him know if there were any changes to the current plan. [facility] 07-12-2023 History of Presen t illness Narrative Pt arrived to Infusion Room in good condition. VSS. Labs drawn without issue. Waiting on results for injections to be given. Pt Hgb 7.4. Injections given into R/L arms without incident. Pt tolerated well. Denies needs. Will notify Dr. Zelaya of pt Hgb and update patient if there is a change in plan. Pt denies questions and agrees to follow up. Will reassess and monitor. documented in this encounter [facility] 06-28-2023 Rowena Schultz APRN.CHRISTOPHER - 06/28/2023 3:03 PM EDT Stroke Signs and Symptoms: *Stroke is a medical emergency. Know the warning signs of stroke: Sudden numbness or weakness of the face, arm or leg, especially on one side of the body Sudden confusion, trouble speaking, or understanding Sudden trouble seeing in one eye, or both eyes Sudden trouble walking, dizziness, loss of balance, or coordination Sudden severe headache with no known cause *If you, or someone with you, has one or more of these signs, don't delay! Immediately call 911, or the emergency medical services (EMS) number so an ambulance can be sent for you. Also, check the time so that you will know when the symptoms first appeared. It is very important to take immediate action, every second counts. Medical treatment may be available if action is taken early enough. documented in this encounter [facility] 06-28-2023 History of Presen t illness Narrative Images from the original note were not included. [facility] [place] New Patient Evaluation CHIEF COMPLAINT: TIA Joss Oropeza is a 78 year old accompanied by his . June 28, 2023 HPI: Mr. Oropeza presents today secondary to issues of TIA. He states that on 05/31 he was talking to neighbor and speech was garbled. Was taken to [facility]. Dx with TIA. The following Saturday had plans with friends and when talking about what happened on the . Speech became garbled. 911 was called and was taken to [place]. Per neurology on 06/10/23: IMPRESSION Joss Oropeza is a 78 year old, male, patient. MRI brain no stroke Concern for probable TIA 20 minute eeg wnl Already on aspirin and statin LDL 19, no need to increase statin A1c 9.2 which could be likely cause for TIA PLAN Needs improved diabetic control Continue aspirin Plavix for 21 days total then discontinue Continue home dose statin Zio patch Stroke clinic follow up ECHO can be followed outpatient Speech resolved as soon as he was in the ambulance. This was the same length of time as on the . No facial numbness, weakness, vision changes, extremity weakness. Could still understand speech. Has been on 81mg ASA for years. Did not recently skip a day. BG has been elevated. Has been cutting. Doing diet changes. Insulin was increased from 10 to 27u per day. Does not check BP at home. Taking Crestor for cholesterol; LDL is 19. Still taking Plavix. No signs of bleeding. No customer account manager. No palpations or fluttering. Mother with afib. Father with MA. Sleeps ok. Does not snore. No gasping. Does feel fatigued. Was started on a medication that substitutes for transfusions. Skin CA but no other CA. 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 No further symptoms since discharge. Very active; gets on and off tractor. 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 No falls or balance problems. 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 PAST SURGICAL HISTORY Procedure Laterality Date ADENOIDECTOMY PRIMARY <AGE 10 Adenoidectomy COLONOSCOPY FLX DX W/COLLJ SPEC WHEN PFRMD Colonoscopy COLONOSCOPY FLX DX W/COLLJ SPEC WHEN PFRMD Colonoscopy LAPAROSCOPY SURG CHOLECYSTECTOMY Cholecystectomy, lap PAST SURGICAL HISTORY OF 01-17-12 BACK SURGERY PAST SURGICAL HISTORY OF SKIN LESION--PRE CANCER SKULL PAST SURGICAL HISTORY OF SKIN LESION--SKIN CANCER LEFT HAND PICC LINE MRSA INFECTION RT/LT HEART CATHETERS CC & CA, R & L heart, NEGATIVE TONSILLECTOMY PRIMARY/SECONDARY <AGE 10 Tonsillectomy Current Outpatient Medications on File Prior to Visit Medication Sig clopidogrel (PLAVIX) 75 mg tablet Take 1 tablet by mouth once daily for 19 doses. metFORMIN (GLUCOPHAGE) 1,000 mg tablet Take 1,000 mg by mouth two times a day with meals. Once in am and once in pm SITagliptin (ZITUVIO) 100 mg tablet Take by mouth. aspirin 81 mg chewable tablet Take by mouth. finasteride 0.1% minoxidil 7.5% topical solution (CPD) Finasteride Active 5 MG DAILY July 10, 2018 9:31am IFTIKHAR VAZQUEZ U-100 INSULIN 100 unit/mL (3 mL) Inject 25 Units subcutaneously every morning. BD CRISTAL 2ND GEN PEN NEEDLE 32 gauge x 5/32 glimepiride (AMARYL) 4 mg tablet Take 4 mg by mouth two times a day with meals. rosuvastatin (CRESTOR) 10 mg tablet Take 1 tablet by mouth daily at bedtime. MEN'S MULTI-VITAMIN ORAL Take 1 tablet by mouth. cyanocobalamin (VITAMIN B-12) 1,000 mcg tab Take 1,000 mcg by mouth once daily. tamsulosin (FLOMAX) 0.4 mg Take 0.4 mg by mouth two times a day. finasteride (PROSCAR) 5 mg tablet Take 5 mg by mouth once daily. alendronate (FOSAMAX) 70 mg tablet Take 70 mg by mouth one time a week. In AM with cup of water on empty stomach. Nothing else by mouth and stay upright for 30 min. No current facility-administered medications on file prior to visit. Social History Tobacco Use Smoking status: Never Smokeless tobacco: Never Vaping Use Vaping Use: Never used Substance Use Topics Alcohol use: Yes Comment: social/rare Drug use: No ALLERGIES Allergen Reactions Maxipime [Cefepime] Unknown Review of Systems: See HPI. Physical Exam: 06/28/23 1420 BP: 126/69 BP Site: Left Arm BP Position: Sitting BP Cuff Size: Large Adult Pulse: 78 SpO2: 98% Weight: 99.9 kg (220 lb 3.8 oz) Height: 175.3 cm (5' 9) Patient is alert and in no distress. Dress is appropriate. Mood is appropriate Breathing appears regular and unstressed Neurologic examination: Cognitively intact. No deficits. No formal MOCA performed. CN: Pupils equal and reactive to light, extraocular movements intact with no nystagmus, face is symmetric with no facial droop, facial sensation intact bilaterally to light touch. V1-3, hearing intact bilaterally, symmetric evaluation of the soft palate, tongue is midline with no deviation, shoulder shrug is symmetric. Motor Examination: Right Upper Extremity: (of 5) Left Upper Extremity: (of 5) Shoulder Abduction: Deltoid (Ax/C5) 5 Shoulder Abduction 5 Elbow Flexion: Biceps (MC/R and C5/6) 5 Elbow Flexion 5 Elbow Extension: Triceps (R/C7) 5 Elbow Extension 5 Wrist Flexion (M/U and C6/7) 5 Wrist Flexion 5 Wrist Extension (R/C6) 5 Wrist Extension 5 Finger Abduction (U/T1) 5 Finger Abduction 5 Oracle Wms Consultant 5 Oracle Wms Consultant 5 Right Lower Extremity: (of 5) Left Lower Extremity: (of 5) Hip Flexion: Iliopsoas (F and L1/2) 5 Hip Flexion 5 Knee Extension: Quadriceps (F and L3/4) 5 Knee Extension 5 Knee Flexion: Hamstrings (S/S1) 5 Knee Flexion 5 Dorsiflexion: Tibialis Anterior (DP and L4/5) 4 Dorsiflexion 5 Plantarflexion: Gastrocnemius/Soleus (T and S1/2) 5 Plantarflexion 5 Reflexes: Right Extremities Left Lower Extremities: Triceps (C7-8R) 2 Triceps 2 Biceps (C5-6MC) 2 Biceps 2 Brachioradialis (C5-6R) 2 Brachioradialis 2 Patellar (L3-4F) 2 Patellar 2 Achilles (S1-2S) 2 Achilles 2 Sotelo's: negative bilaterally Sensory Intact to light touch upper and lower extremities bilaterally Temperature: intact in all extremities Vibratory sensation decreased in both feet Coordination: No dysmetria on finger to nose. No tremors noted. No drift seen. Gait normal in stance and pattern. NIHSS: 1(a). Mental Status - LOC 0 = Alert and Attentive 1(b). LOC Questions 0 = Correct age and month 1(c). LOC-Commands 0 = Both 2. Gaze 0 = Normal 3. Visual Carnes 0 = Full 4. Facial Weakness 0 = Normal 5(a). Left Arm 0 = No drift 5(b). Right Arm 0 = No drift 6(a). Left Leg 0 = No drift 6(b). Right Leg 0 = No drift 7. Ataxia 0 = Absent 8. Sensory 0 = Normal 9. Aphasia 0 = None 10. Dysarthria 0 = Absent 11. Neglect 0 = None NIHSS Total (0-42): 0 Labs/studies: Recent Results (from the past 4464 hour(s)) ECHO Collection Time: 06/10/23 2:16 PM Impression CONCLUSIONS: - Technically difficult exam due to body habitus. - Exam indication: TIA - The left ventricle is normal in size. Left ventricular systolic function is normal. EF = 55 5% (2D biplane) Grade I left ventricular diastolic dysfunction. - The right ventricle is normal in size. Right ventricular systolic function is normal. - Aortic valve sclerosis without stenosis. - Exam was compared with the prior echocardiographic exam performed on 06/25/2020, there is no significant change. * * * Final * * * MRI Report MRI BRAIN WO IVCON Exam End: 06/09/2023 10:00 AM (Final result) Narrative: * * *Final Report* * * DATE OF EXAM: Jun 09 2023 10:00AM [facility] 0294 - MRI BRAIN WO IVCON / PROCEDURE REASON: Transient ischemic attack (TIA) * * * * Physician Interpretation * * * * EXAMINATION: MRI BRAIN WO IVCON CLINICAL HISTORY: TIA TECHNIQUE: Routine noncontrast MRI protocol including diffusion images. MQ: [id number] COMPARISON: MRI brain 06/25/2020.. RESULT: Acute Change: There is no evidence of restricted diffusion to suggest an acute infarct. Hemorrhage: No evidence of prior parenchymal hemorrhage on the SWI. Mass Lesion/ Mass Effect: No evidence of an intracranial mass or extra-axial fluid collection. No significant mass effect. Chronic Change: Scattered patchy areas of increased T2 and FLAIR signal are present in the supratentorial white matter which is a nonspecific finding but likely represents mild chronic microvascular ischemia. Parenchyma: There is moderate generalized parenchymal volume loss. The brain parenchyma is otherwise within normal limits of signal intensity and morphology. Ventricles: Ventriculomegaly corresponds to the degree of parenchymal volume loss. Skull Base: Hypothalamic and pituitary region are grossly normal. Craniocervical junction is normal. No significant marrow replacement process. Vasculature: Major intracranial arterial structures, and dural venous sinuses show typical flow void, suggesting patency by spin echo criteria. Other: The visualized paranasal sinuses and mastoid air cells are clear. The orbits and extracranial soft tissues are unremarkable. Impression: IMPRESSION: No acute intracranial findings. Moderate diffuse parenchymal volume loss and mild sclerotic chronic microvascular ischemia. Backhaul Driver: [facility] Transcribe Date/Time: Jun 09 2023 11:34A Dictated by : SELENA DISLA MD This examination was interpreted and the report reviewed and electronically signed by: SELENA DISLA MD on Jun 09 2023 11:36AM EST CT Brain Report CTA HEAD W IVCON Exam End: 06/08/2023 6:29 PM (Edited Result - FINAL) Addendum: * * *Final Report* * * DATE OF EXAM: Jun 08 2023 6:29PM [facility] 0022 - CTA HEAD W IVCON / PROCEDURE REASON: Focal neuro deficit, new, fixed, or worsening, 4.5 to 24 hours, NIHSS < 6, strok * * * * Physician Interpretation * * * * EXAMINATION: CTA NECK W IVCON, CTA HEAD W IVCON, CT BRAIN WO IVCON HISTORY: Word finding difficulty, symptoms resolved. TECHNIQUE: Routine CT of the brain without IV contrast. Next, high resolution axial images were obtained through the head, neck and superior mediastinum following bolus administration of intravenous contrast for CT angiography. 3D maximum intensity projection images were created, reviewed and archived . MQ: CTABNPlus_4 Contrast: 80 mL Omnipaque [address] Radiation dose: Integrated Dose-Length Product (DLP) for this visit = 1364 mGy*cm. CT Dose Reduction Employed: No dose reduction techniques were required COMPARISON: None. RESULT: BRAIN: Acute change: No evidence of an acute infarct or other acute parenchymal process. ASPECT Score = 10 Hemorrhage: No evidence of acute intracranial hemorrhage. ECASS hemorrhagic transformation score: Not Applicable Mass Lesion / Mass Effect: There is no evidence of an intracranial mass or extra-axial fluid collection. No significant mass effect. Chronic change: Patchy foci of low attenuation coefficient are present within white matter which is a nonspecific finding but likely represents moderate microvascular ischemia. Parenchyma: There is moderate generalized volume loss for age. The brain parenchyma is otherwise within normal limits for age. Ventricles: Ventricular enlargement concordant with the degree of parenchymal volume loss. Other: The visualized paranasal sinuses are grossly clear. The skull and visualized extracranial soft tissues are grossly normal. NECK: Soft tissues: The soft tissue planes are maintained throughout. No evidence of a soft tissue mass in the neck or superior mediastinum. No significant lymphadenopathy is seen. Spine: Alignment is normal. Moderate degenerative changes are present. Lung apices: The visualized lung apices are clear. CT ARTERIOGRAM: Extracranial Circulation: Aortic Arch: There is a normal branching pattern from the aortic arch. There is no significant stenosis in the proximal brachiocephalic vessels. Carotid Stenosis: Right Common: No significant stenosis. Right Internal Carotid Plaque: Moderate partially calcified atherosclerotic plaque. Right Internal Carotid Stenosis (% by NASCET Criteria): 40% Left Common: No significant stenosis. Left Internal Carotid Plaque: Mild plaque formation. Left Internal Carotid Stenosis (% by NASCET Criteria): Less than 25% Cervical Vertebral Arteries: Patency: Bilateral Dominance: Right Intracranial Circulation: Anterior Circulation: Mild to moderate stenosis of the bilateral carotid siphons due to circumferential atherosclerotic plaque. Bilateral ACAs and MCAs are patent. No aneurysm is identified. Vertebrobasilar Circulation: Patent bilateral V4 vertebral artery segments, basilar artery, and major branch vessels. Both clinical education manager are patent with conventional origin on the left and origin on the right. Dural venous sinuses and major deep draining veins are patent. Egg Grader (topogram) images: No significant findings. IMPRESSION: 1. No acute intracranial findings. Chronic changes as described. 2. No large vessel occlusion or high-grade arterial stenosis intracranially. 3. No hemodynamically significant stenosis of the extracranial carotid or vertebral artery segments. Arterial blood flow was measured to detect acute large vessel occlusion by computer aided detection software: None. Concordance between software and imaging review: Concordant. Backhaul Driver: PSCLázaro Transcribe Date/Time: Jun 08 2023 6:48P Dictated by : EL NUNEZ MD This examination was interpreted and the report reviewed and electronically signed by: EL NUNEZ MD on Jun 08 2023 6:55PM EST Provider, [facility]06/08/2023 6:55 PM Latest Ref Rng 06/08/2023 06/09/2023 06/21/2023 WBC 3.70 - 11.00 k/uL 5.82 RBC 4.20 - 6.00 m/uL 1.95 (L) Hemoglobin 13.0 - 17.0 g/dL 8.0 (L) Hematocrit 39.0 - 51.0 % 24.0 (L) MCV 80.0 - 100.0 fL 123.1 (H) MCH 26.0 - 34.0 pg 41.0 (H) MCHC 30.5 - 36.0 g/dL 33.3 RDW-CV 11.5 - 15.0 % 15.3 (H) Platelet Count 150 - 400 k/uL 121 (L) MPV 9.0 - 12.7 fL 12.0 Neut% % 61.3 Abs Neut (ANC) 1.45 - 7.50 k/uL 3.57 Lymph% % 31.8 Abs Lymph 1.00 - 4.00 k/uL 1.85 Donley% % 5.7 Abs Donley <0.87 k/uL 0.33 Eosin% % 0.3 Abs Eosin <0.46 k/uL <0.03 Baso% % 0.7 Abs Baso <0.11 k/uL 0.04 Immature Gran % % 0.2 IMMATURE GRANS (ABS) <0.10 k/uL <0.03 DTYPE Auto Protein, Total 6.3 - 8.0 g/dL 6.4 Albumin 3.9 - 4.9 g/dL 3.9 Calcium 8.5 - 10.2 mg/dL 9.1 Bilirubin, Total 0.2 - 1.3 mg/dL 0.2 Alkaline Phosphatase 38 - 113 U/L 55 AST 14 - 40 U/L 16 ALT 10 - 54 U/L 11 Glucose 74 - 99 mg/dL 124 (H) BUN 9 - 24 mg/dL 18 Creatinine 0.73 - 1.22 mg/dL 1.00 Sodium 136 - 144 mmol/L 139 Potassium 3.7 - 5.1 mmol/L 4.3 Chloride 97 - 105 mmol/L 107 (H) CO2 22 - 30 mmol/L 22 Anion Gap 9 - 18 mmol/L 10 eGFR >=60 mL/min/1.73m 76 Cholesterol, Total <200 mg/dL 115 Triglyceride <150 mg/dL 284 (H) HDL Cholesterol >39 mg/dL 39 (L) Non HDL Cholesterol <130 mg/dL 76 Fasting Time -- VLDL Cholesterol <30 mg/dL 57 (H) TC:HDL Ratio <5.10 2.95 LDL Cholesterol <100 mg/dL 19 LDL:HDL Ratio <2.54 0.49 Hemoglobin A1C 4.3 - 5.6 % 9.2 (H) Estimated Average Glucose mg/dL 217 TSH 0.270 - 4.200 mIU/L 2.680 Legend: (H) High (L) Low Assessment/Plan: G45.9 TIA (transient ischemic attack) (primary encounter diagnosis) Comment: Pt presenting today for follow-up after TIA. He reports that on 05/31 he experienced an episode of garbled speech and was taken to the ED and again on 06/07. He was admitted at [place] where stroke workup was completed including CT/A head and neck, MRI brain, EEG, and echo. Testing was unremarkable. LDL was 19. Recent A1c was 9.2. He was diagnosed with a TIA and was discharged on DAPT for 21 days and with a teacher drama. At time of appointment today, he reports he has not experienced any further symptoms. Exam in office is nonfocal. At this time recommendations will remain as follows: -Remove and mail back extended teacher drama (as it has been 2 weeks). -Continue DAPT for remainder of 21 days then continue ASA monotherapy. -Continue statin as previously prescribed. -Continue to manage BG with PCP; goal BG<140. -Continue to manage BP with PCP; goal BP<140/90. He will follow-up in 3 months or sooner should new or changing symptoms occur. Reviewed red flag symptoms and importance of calling 911 should these symptoms occur (information provided on AVS). Rowena Parra APRN.ECHOCARDIOLOGIST I spent a total of 45 minutes on the date of the service which included preparing to see the patient, [id number] patient care, completing clinical documentation, obtaining and/or reviewing separately obtained history, performing a medically appropriate examination, counseling and educating the patient/family/caregiver, and ordering medications, tests, or procedures. Portions of this note were created with electronic dictation and errors in spelling, syntax, and meaning may have occurred. documented in this encounter [facility] 06-21-2023 History of Presen t illness Narrative Pt arrived to Infusion room. appears well, SOB improved from previous appointment. Gait strong steady. VSS. pt appears well. Injection given without incident. Right arm x1, left arm x2. Pt tolerated without incident. Denies questions or needs. Lab results discussed. Pt encouraged to call Infusion room or Dr Zelaya if he has increase SOB, or fatigue as his Hgb was 8.0. Pt verbalized understanding. Ambulated to lobby without issue. documented in this encounter [facility] 06-10-2023 Note HNO ID: [id number] Author: PHILIP SMITH MD Service: Cardiovascular Disease Author Type: Physician Type: Plan of Care Filed: 06/10/2023 14:34 Note Text: ECHO stress test normal Cardiology will s/o Philip Smith MD 06/10/2023 [facility] 06-10-2023 Note HNO ID: [id number] Author: PHILIP JOYCE RT(R) Service: ? Author Type: Aircraft Seat Upholsterer Type: Progress Notes Filed: 06/10/2023 09:33 Note Text: RADIOLOGY SERVICE PROGRESS NOTE SERVICE DATE: 06/10/2023 SERVICE TIME: 9:30 AM PATIENT IDENTITY VERIFICATION COMPLETED USING TWO (2) STANDARD IDENTIFIERS: Name and Date of confirmed by patient verbally FALL SCREENING: Has the patient had 2 falls in the last year or 1 fall with injury or currently using an Ambulatory Assistive Device (Walker, Cane, Wheelchair, Crutches, etc.)? Inpatient: Screened on floor PATIENT GENDER DATA: .male ALLERGIES: Reviewed and unchanged MEDICATIONS REVIEWED: Not applicable PATIENT RELEVANT IMPLANT DATA REVIEWED: Not Applicable PATIENT PRESENTS WITH AN IMPLANTABLE OR ATTACHED WIND TUNNEL ENGINEER: No CREATININE: Creatinine Date Value Ref Range Status 06/09/2023 1.00 0.73 - 1.22 mg/dL Final 06/08/2023 1.04 0.73 - 1.22 mg/dL Final 06/01/2023 1.00 0.73 - 1.22 mg/dL Final Estimated Glomerular Filtration Rate Date Value Ref Range Status 06/09/2023 76 >=60 mL/min/1.73m? Final Comment: Estimated Glomerular Filtration Rate (eGFR) is calculated using the 2020 CKD-EPI creatinine equation. This equation utilizes serum creatinine, sex, and age as parameters. The creatinine assay has traceable calibration to isotope dilution-mass spectrometry. Refer to KDIGO guidelines for clinical interpretation. In patients with unstable renal function, e.g. those with acute kidney injury, the eGFR may not accurately reflect actual GFR. eGFR- Date Value Ref Range Status 04/17/2021 >60 Final P.O.C.T. RESULTS: N/A June 10, [address] PERFORMED: No IV SITE: Inpatient - refer to [facility] documentation POST EXAM PIV STATUS: Inpatient see [facility] documentation PROCEDURE TYPE: NM Stress: 10.7 mCi [id number] was administered IV for [facility] at 0800 by [facility]. 34.2 mCi [id number] was administered IV for Stress Imaging at 0920 by [facility]. ADMINISTRATION TIME: 0800/0920 PATIENT DISCHARGED TO: Patient taken to IP transport area for return to RNF/ICU/ED. A Diagnostic radioactive procedure has taken place, with no further precautions necessary other than routine body substance precautions. More information regarding radiation safety can be found using this link: [email or web address] SIGNATURE: RT Анна(R) PATIENT NAME: Jsos Oropeza DATE: June 10, 2023 TIME: 9:30 AM PAGER/CONTACT #: [facility] 06-10-2023 Note HNO ID: [id number] Author: AKOSUA MONTILLA, RN Service: Care Management Author Type: Registered Nurse Type: Care Mgt Initial Assessment Filed: 06/09/2023 22:21 Note Text: CARE MANAGEMENT: ASSESSMENT AND DISCHARGE PLAN SERVICE DATE: June 09, 2023 SERVICE TIME: 10:17 PM PCP: German Robertson MD Primary Contact: Extended Emergency Contact Information Primary Emergency Contact: Joel Oropeza Relation: Spouse Secondary Emergency Contact: ErrolisadoraGracia Mobile Relation: Daughter Admission Status: Observation Insurance Provider: [employer] Discharge Planning requested by: Per Department Practice Potential Transition Plans No Services Indicated;Home Advance Directives Current Advance Directive: None Executive Office Manager Attempted to Assist with AD Completion: Yes Action: Education Provided;Patient Unwilling Current Living Arrangements and Support Lives with: Spouse/significant other Type of Residence: Private Residence (House) Support: Children, Spouse/significant other How do you manage to accomplish the following: Independent: Ambulation;Bathe/Shower;Dress;Me als/Meal Prep;Medication Management;Going to the bathroom;Transportation to appointments/community Current Services/Equipment Current Post-Acute Service(s): DME Current DME Type: Cane, Walker, Wheelchair-manual Discharge Planning Patient Goal(s): Be able to go home, General wellness [place] of Choice Explained: [place] of Choice Given: No Reason Not Given: No placements necessary Are you interested in bedside delivery of your medications? No Discharge Planning Participant(s): Patient Patient/Family Comments: Caregiver Assessment: Caregiver is ready, willing and able to meet the patient's needs as recommended by the inter-professional team: No Caregiver needed Transport at Discharge: Transportation Arrangements: Car Destination: home Needs Prior to Discharge: Needs Prior to Discharge: None Advance Care Planning HCPOA [place] on file within [facility] and verified to be current as of date/time of this note: No Legal Next of Kin Hierarchy per [place] Revised Code: Legal Spouse-Joel Oropeza [phone] Majority of Adult Children (consensus if possible)-4 kids-Gracia Worthy [phone], HarleyYury, Leonidas-declines to provide contact info for other children Parents- Majority of Adult Siblings (consensus if possible)-no living per pt Akosua Montilla RN June 09, 2023 Post-Acute Discharge Plan: CM met with pt at bedside. Independent, retired, [employer], drives, lives with Joel [phone], family will transport at discharge pt states it depends on timing for who it will be. Independent with ADLs and iADLs. Presents with TIA, BPH, expressive aphasia. Hx of-anemia, diabetes, stroke. DME-walker, cane, wheelchair. Does not use senior care, mental health, or community resources. Denies use of drugs, alcohol, or nicotine. Neuro and Cardio on consult. Anticipate discharge home, no new skilled needs. SIGNATURE: Akosua Montilla RN PATIENT NAME: Joss Oropeza DATE: June 09, 2023 TIME: 10:17 PM CONTACT #: [phone] [facility] 06-09-2023 Note HNO ID: [id number] Author: BRENDA GUO APRN.CNP Service: Hospital Medicine Author Type: Nurse Practitioner Type: Progress Notes Filed: 06/09/2023 17:56 Note Text: PROGRESS NOTE SERVICE DATE: 06/09/2023 SERVICE TIME: 2:23 PM PRIMARY SERVICE: CDU Subjective CHIEF COMPLAINT: Aphasia INTERVAL HPI: Period of aphasia x 2. One episode on 06/02 with mild confusion (tried to open car door with eclipse glasses) which resolved. Another episode yesterday 06/07 prompting friends he was talking to to call 911. Also notes episode starting prior to any aphasia - walking in yard on 05/31 - felt short of breath, fatigued and had to rest when he got back in house. Abnormal for him. Went to ED, was monitored and discharged. Denies known AF history Current Facility-Administered Medications Medication Dose Route Frequency NaCl 0.9% iv flush bag 20 mL INTRAVENOUS PRN acetaminophen 650 mg tab(s) (TYLENOL) 650 mg ORAL/FEEDING TUBE q 4 H PRN ondansetron (PF) 4 mg injection (ZOFRAN) 4 mg INTRAVENOUS q 6 H PRN sodium chloride 0.9 % (flush) 2-10 mL (BD POSIFLUSH) 2-10 mL INTRAVENOUS DIRECTED PRN And perflutren lipid microspheres 1.1 mg/mL 1.3 mL injection (DEFINITY) 1.3 mL INTRAVENOUS DIRECTED PRN glimepiride 4 mg tab(s) (AMARYL) 4 mg ORAL BID w MEALS rosuvastatin 10 mg tab(s) (CRESTOR) 10 mg ORAL AT BEDTIME finasteride 5 mg tab(s) (PROSCAR) 5 mg ORAL DAILY tamsulosin 0.4 mg cap(s) (FLOMAX) 0.4 mg ORAL BID insulin glargine 25 Units pen (long acting) 25 Units SUBCUTANEOUS DAILY (8 AM) aspirin 81 mg chewable tab(s) 81 mg ORAL DAILY cyanocobalamin 1,000 mcg (VITAMIN B-12) 1,000 mcg ORAL DAILY dextrose 40 % 15 g 15 g ORAL PRN Or glucagon 1 mg injection 1 mg INTRAMUSCULAR PRN Or dextrose 10% iv bolus 12.5 g INTRAVENOUS PRN insulin lispro injection (rapid acting) (ADMElog) SUBCUTANEOUS w MEALS AND HS Objective PHYSICAL EXAM: BP 125/53 Pulse 63 Temp (Src) 99 (Oral) Resp 16 Ht 5' 9 (1.75m) Wt 208 lb 11.2 oz (94.7kg) SpO2 96% BMI 30.81 kg/(m2). O2 Therapy: Room Air Physical Exam Performed GENERAL: Alert, no distress, cooperative SKIN: Skin color, texture, turgor grossly normal EYES: PERRLA, EOMI OROPHARYNX: Lips, mucosa, and tongue normal. Oropharynx normal BACK: Back symmetric, Normal curvature, ROM normal LUNGS: Lungs clear to auscultation, Good diaphragmatic excursion CARDIAC: Normal S1 and S2 ABDOMEN: Abdomen soft, non-tender, BS normal EXTREMITIES: No edema NEURO: Grossly normal cognition, motor function, and cranial nerves III-XII No arm drift, smooth finger to nose smooth, gait stable PULSES: 2+ radial, 2+ dorsalis pedis DATA: Diagnostic tests reviewed for today's visit: Most recent labs and imaging results. Assessment/Plan Principal Problem: TIA (transient ischemic attack) (POA: Yes) Expressive aphasia (POA: Yes) Assessment AND Plan: Two episodes of expressive aphasia and initial episode with mild confusion that resolved. - EEG ordered by neurology - plavix + ASA x 21 days MRI without acute stroke Echo ordered ASA 81 mg and statin continued (Crestor 10 mg but LDL at goal) PT/OT not needed - patient functioning at baseline Active Problems: Exertional dyspnea Starting last week while walking in yard, increased fatigue since that time. Does have anemia, but stable and symptom onset x 1 week Had 30 day monitor 2020 without AF noted, but in differential considering concurrent TIA symptoms - cardiology consulted - stress test in AM Diabetes (HCC) (POA: Yes) Assessment AND Plan: On lantus 25 units daily, Glimepiride 4 mg BID with meals at home, Humalog with SS added inpatient HgA1c pending Anemia Macrocytic anemia, chronic Hgb 8.3, stable Luspatercept infusions, followed by hematology Dyslipidemia (POA: Yes) Assessment AND Plan: Well controlled On statin BPH (benign prostatic hyperplasia) (POA: Yes) Assessment AND Plan: On flomax Medication and Non-Pharmacologic VTE Prophylaxis/Anticoagulants Anticoagulant AND Antiplatelet Medications (From admission, onward) Start Dose Route Frequency Last Action Ordered Stop 06/09/23 0900 aspirin 81 mg chewable tab(s) 81 mg ORAL DAILY Given, 06/08 0826 06/08/23 2310 -- 06/08/23 2315 activity - mobilize patient (nd,tn) VTE Prophylaxis: VTE prophylaxis appropriate I spent a total of 40 minutes on the date of the service which included preparing to see the patient, [id number] patient care, completing clinical documentation, obtaining and/or reviewing separately obtained history, performing a medically appropriate examination, counseling and educating the patient/family/caregiver, communicating with other HCPs (not separately reported), and communicating results to the patient/family/caregiver. SIGNATURE: Brenda Guo APRN.ECHOCARDIOLOGIST PATIENT NAME: Joss Nevillepatrick DATE: June 09, 2023 TIME: 2:23 PM [facility] 06-03-2023 History of Presen t illness Narrative Joss Oropeza 1945 June 03, 2023 HPI: Joss Oropeza is a 78 year old male who presents as a hospital follow up. Mr. Oropeza is a 78 year old male who presented to ER on 05/22/22 for anemia. This is a 78 year old male who presented with for low hgb from primary care office. Patient states he was 6.7 at PCP office and 6.0 at [facility]. PMHx of chronic anemia (baseline 9-11), diabetes, hepatic steatosis, CVA on ASA. He reports worsening shortness of breath over the last 1 year associated with weakness and fatigue. He denies any chest pain. He denies any overt GI bleeding, no blood or darker stool, no weight loss, no abdominal pain, no issues swallowing, and no issues with constipation or diarrhea. Reports several colonoscopies in the past with Dr. Hernandez in [place], last done July 2021 that had one polyp removed. Remote EGD. He does endorse some heartburn and reflux occasionally. He denies any NSAID use besides ASA 81 mg, no blood thinners, no smoking, and only rare alcohol use. Hgb this morning 7.2 from 5.9 s/p 1 unit of blood. Platelets low 114, and MCV elevated. Kidney function normal. Iron studies showing normal iron, ferritin elevated, folate and b12 normal. CT a/p showed no acute findings in abdomen and pelvis. VSS. GI consulted for anemia. I was asked to see him for macrocytic anemia prior to d/c. He was SOB on admission and now feels better. He received 1 unit PRBC on 05/22 and another on 05/23/22. He is very active on his tractor at home. He is a non smoker. Does not drink alcohol. No family hx of bone marrow issues. Denies any bleeding. Interval history: Today he is here for follow up. With today. Had a cardiac event last week Saturday. Got diaphoretic. Last PRBC 02/13/23. Last luspatercept 03/29/23. Getting shots in [place] every 3 weeks on Fridays. Getting his labs done on before the shot. Taking insulin daily. Just had it doubled to 25 units per day. Still not making any progress getting to <200. Fatigued. Now has [employer] insurance as of 02/2023 Last transfusion 02/12/2023 for hgb 7. Healing bruise on LLQ from insulin Denies any bleeding. PCP changed DM meds due to cost. Feeling well. No major changes. Wants to hold off on transfusion tomorrow. Fatigued but no change. Got a transfusion 11/29/22. No change in how he felt with the transfusion. 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 PAST SURGICAL HISTORY Procedure Laterality Date ADENOIDECTOMY PRIMARY <AGE 10 Adenoidectomy COLONOSCOPY FLX DX W/COLLJ SPEC WHEN PFRMD Colonoscopy COLONOSCOPY FLX DX W/COLLJ SPEC WHEN PFRMD Colonoscopy LAPAROSCOPY SURG CHOLECYSTECTOMY Cholecystectomy, lap PAST SURGICAL HISTORY OF 01-17-12 BACK SURGERY PAST SURGICAL HISTORY OF SKIN LESION--PRE CANCER SKULL PAST SURGICAL HISTORY OF SKIN LESION--SKIN CANCER LEFT HAND PICC LINE MRSA INFECTION RT/LT HEART CATHETERS CC & CA, R & L heart, NEGATIVE TONSILLECTOMY PRIMARY/SECONDARY <AGE 10 Tonsillectomy Current Outpatient Medications Medication Sig Dispense Refill SITagliptin (ZITUVIO) 100 mg tablet Take by mouth. aspirin 81 mg chewable tablet Take by mouth. finasteride 0.1% minoxidil 7.5% topical solution (CPD) Finasteride Active 5 MG DAILY July 10, 2018 9:31am IFTIKHAR VAZQUEZ U-100 INSULIN 100 unit/mL (3 mL) Inject 25 Units subcutaneously every morning. BD CRISTAL 2ND GEN PEN NEEDLE 32 gauge x 5/32 glimepiride (AMARYL) 4 mg tablet MEN'S MULTI-VITAMIN ORAL Take 1 tablet by mouth. cyanocobalamin (VITAMIN B-12) 1,000 mcg tab Take 1,000 mcg by mouth once daily. tamsulosin (FLOMAX) 0.4 mg Take 0.4 mg by mouth once daily. finasteride (PROSCAR) 5 mg tablet Take 5 mg by mouth once daily. alendronate (FOSAMAX) 70 mg tablet Take 70 mg by mouth one time a week. In AM with cup of water on empty stomach. Nothing else by mouth and stay upright for 30 min. rosuvastatin (CRESTOR) 10 mg tablet Take 1 tablet by mouth daily at bedtime. 90 tablet 3 No current facility-administered medications for this visit. ALLERGIES Allergen Reactions Maxipime [Cefepime] Unknown FAMILY HISTORY Problem Relation Age of Onset Stroke Mother Ischemic Heart Disease Father Social History Tobacco Use Smoking status: Never Smokeless tobacco: Never Vaping Use Vaping Use: Never used Substance Use Topics Alcohol use: Yes Comment: social/rare Drug use: No I have reviewed the PMHx, PSHx, social history and ROS on June 03, 2023 - all new information noted. Review of Systems: Constitutional: No fevers, chills, drenching night sweats or unintentional weight loss. +fatigue. HEENT: No yellowing of the eyes, no vision changes, no hearing loss or ear pain, no nosebleeds or drainage, no sore throat. Neck: No complaints. Chest: No SOB or cough, +occasional [place], no hemoptysis, no wheezing. Breast: No complaints. Heart: No chest pain, pressure or tightness. No racing heartbeat. Abdominal: No pain or difficulty with swallowing, no N/V, no early satiety, no abdominal pain or bloating, no diarrhea or constipation, no change in bowel habits, no blood in the urine. Genitourinary: No pain or burning with urination, no incontinence, no blood in the urine. Extremities: no pain or swelling. Neurological: No headaches, no numbness or tingling in the extremities, no double vision. Skin: No rashes or ulcerations, no change in pigmentation. Nodes: no enlargement per patient. Heme: No easy bruising or bleeding, no yellowing of the eyes or darkening of urine. Psychiatric: no anxiety or depression. Immunologic: No recurrent or persistent infections of the sinuses, lungs or urinary tract. Endocrine: No hair or nail changes, no polyuria, polydipsia, or polyphagia. Appetite normal. I have performed the physical exam on June 03, 2023 - all new findings noted below. Physical Exam: BP 169/67[right arm[ Pulse 89 Temp 98.1 Ht 5' 10 (1.78m) Wt 217 lb (98.4kg) SpO2 98% BMI 31.14 kg/(m^2). ECOG PS: 0 Pain Intensity: 0/10 General: Age-appropriate well developed. Appears well. HEENT: Normocephalic, no sclera icterus, external ears normal, oral cavity clear. Neck: Supple, no thyroid nodules, no JVD. Chest: Clear bilaterally, no wheezes, not labored. Heart: Normal S1 and S2, no abnormal sounds, peripheral pulses synchronized. +murmur grade 1/6 Abdomen: Soft, nontender, nondistended, bowel sounds present, no organomegaly or mass, no rigidity. /Rectal: deferred Extremities: No cyanosis, clubbing, gross deformities, or palpable cords. Neurological: Cranial nerves II through XII are intact bilaterally, strength normal in the upper and lower extremities, no focal deficits. Skin: Warm and dry with no rashes or ulcerations. Nodes: No palpable adenopathy in the cervical, supraclavicular, infraclavicular, or axillary regions. Hematologic: no bruising or petechiae. Psychiatric: Alert and oriented x3. Emotional well-being assessment was performed. Pt denies depression, distress, and or problems with coping or adjustment. Labs CBC: Recent Labs 06/01/23 1522 05/30/23 1419 WBC 6.49 5.23 HB 8.6* 8.4* HCT 26.0* 26.0* PLT 126* 134* MCV 122.1* 122.6* RDWCV 16.4* 16.2* NEUTP 73.2 57.0 ABSNEUT 4.75 2.98 LYMPHP 21.1 36.3 MONOP 4.8 5.7 EODINP 0.3 0.4 COAG: No results for input(s): APTT, INR in the last 168 hours. BMP: Recent Labs 06/01/23 1522 GLUC 260* NA 136 K 4.3 CHLOR 101 CO2 20* ANION 15 BUN 23 CREAT 1.00 CHEM: Recent Labs 06/01/23 1522 CA 9.4 Lab Results Component Value Date MURRAY 869.8 (H) 05/22/2022 IRON Lab Results Component Value Date FE 128 05/22/2022 TIBC Lab Results Component Value Date TIBC 05/22/2022 Comment: Unable to assay. Specimen significantly hemolyzed. FOLATE Lab Results Component Value Date FOLATE >20.0 05/23/2022 Lab Results Component Value Date RETICP 1.8 07/03/2022 ABSRETIC 0.037 07/03/2022 MURRAY 869.8 (H) 05/22/2022 FE 128 05/22/2022 TIBC 05/22/2022 Comment: Unable to assay. Specimen significantly hemolyzed. TRANSFERSAT 05/22/2022 Comment: Unable to assay. Specimen significantly hemolyzed. Radiology: Pathology: BM biopsy 06/01/22: Variably cellular marrow with trilineage hematopoiesis and mild erythroid and megakaryocyte atypia. - Storage iron present and focally increased. The marrow is variably cellular and at least focally appears mildly increased although the biopsy is small and fragmented and suboptimal. Mild atypia is seen in the erythroids, and occasional small megakaryocytes are present. Although an early myeloid neoplasm is in the differential, this degree of atypia may be seen due to other causes including nutritional deficiencies such as vitamin B12, folate or copper, toxic exposures, autoimmune/rheumatologic etiologies, infectious etiologies, and other neoplasms. The finding of vacuolated immature erythroids in the aspirate raises the possibility of copper deficiency. Correlation with copper levels may be useful if clinically indicated. Mast cells appear increased, predominantly morphologically unremarkable. The myeloid NGS demonstrates a variant of potential clinical significance in the PPM1D gene, which raises the possibility of a clonal cytopenia of undetermined significance, although this variant is rarely germline. 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 2) Macrocytic anemia - related to #1. 3) Fatigue - likely due to anemia. 4) DM - on insulin. - trying to get BS < 200. Reviewed with pt and . Plan is to initiate PRBC if needed and ideally keep Hb between 7 and 8. I would like to try Luspatercept for him to see if we can make him transfusion independent and help slow down the progression of his CCUP. He would like to forgo transfusion for hgb 7.9. Reporting that he still feels good. *continue on luspatercept. No transfusions since 01/2023. Improvement 1.5 gms. Will increase the dose to 1.33 and see how he does. Indications are to stop at 11.5 Hb or > 2gm/dL climb. Continue to check labs eow per pt discussion. Offered to check once a month and will continue eow for now. The patient and his were able to ask questions and all were answered to their satisfaction. ? [place] for [employer] Changing to [employer] 02/25/23. Parts of the HPI, ROS, exam and impression/plan may have been copied from my personal previous clinical note and remain pertinent. Current changes have been made and documented today. Other parts or data were deleted if not relevant for today. The documentation has been reviewed and edited as necessary to support the clinical decision making for today's visit. Alka Noriega MD documented in this encounter [facility] 05-30-2023 History of Presen t illness Narrative Pt arrived to infusion per self. Gait slow and steady. VSS, labs drawn and delivered to [place] lab. Pt resting while waiting for lab results. Pt states he feels pretty fatigued all the time, rates it a 3/10. SOB noticed after ambulating to infusion room. Resolves after resting. Hgb resulted 8.4, reblozyl injections given into patient abd LLQ x1 and RLQ x1 per patient request. Tolerated well. Pt denies further needs or questions at this time. Ambulated to the lobby without incident. documented in this encounter [facility] 05-10-2023 History of Presen t illness Narrative Pt arrived to infusion per self. Gait steady. Pt appears more short of breath with walking but resolves quickly when resting. VSS. Pt denies pain or needs. Labs drawn and transported to the lab. Hgb resulted at 8.4, Pt received injections in bilateral arms. Tolerated well, no bleeding or bruising. Denies questions or need. Ambulated to lobby without incident. documented in this encounter [facility] 04-19-2023 History of Presen t illness Narrative Pt arrived to Infusion room in stable condition.Gait strong and steady, denies pain. Pt labs reviewed from 04/18. Reblozyl injectionx2 adminsitered int LLQ and RLQ without incident. Pt tolerated well and denies questions. Pt next appointment schedule. Pt ambulated to [facility] without incident. documented in this encounter [facility] 04-08-2023 History of Presen t illness Narrative Joss Oropeza 1945 April 08, 2023 HPI: Joss Oropeza is a 77 year old male who presents as a hospital follow up. Mr. Oropeza is a 77 year old male who presented to ER on 05/22/22 for anemia. This is a 77 year old male who presented with for low hgb from primary care office. Patient states he was 6.7 at PCP office and 6.0 at [facility]. PMHx of chronic anemia (baseline 9-11), diabetes, hepatic steatosis, CVA on ASA. He reports worsening shortness of breath over the last 1 year associated with weakness and fatigue. He denies any chest pain. He denies any overt GI bleeding, no blood or darker stool, no weight loss, no abdominal pain, no issues swallowing, and no issues with constipation or diarrhea. Reports several colonoscopies in the past with Dr. Hernandez in [place], last done July 2021 that had one polyp removed. Remote EGD. He does endorse some heartburn and reflux occasionally. He denies any NSAID use besides ASA 81 mg, no blood thinners, no smoking, and only rare alcohol use. Hgb this morning 7.2 from 5.9 s/p 1 unit of blood. Platelets low 114, and MCV elevated. Kidney function normal. Iron studies showing normal iron, ferritin elevated, folate and b12 normal. CT a/p showed no acute findings in abdomen and pelvis. VSS. GI consulted for anemia. I was asked to see him for macrocytic anemia prior to d/c. He was SOB on admission and now feels better. He received 1 unit PRBC on 05/22 and another on 05/23/22. He is very active on his tractor at home. He is a non smoker. Does not drink alcohol. No family hx of bone marrow issues. Denies any bleeding. Interval history: Today he is here for follow up. With today. Last PRBC 02/13/23. Last luspatercept 03/29/23. Getting shots in [place] every 3 weeks on Fridays. Getting his labs done on before the shot. Taking insulin daily. Trying to get his BS below 200. FBS 207 - getting there. Now has [employer] insurance as of 02/2023 Last transfusion 02/12/2023 for hgb 7. Healing bruise on LLQ from insulin Denies any bleeding. PCP changed DM meds due to cost. Feeling well. No major changes. Wants to hold off on transfusion tomorrow. Fatigued but no change. Got a transfusion 11/29/22. No change in how he felt with the transfusion. 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 PAST SURGICAL HISTORY Procedure Laterality Date ADENOIDECTOMY PRIMARY <AGE 10 Adenoidectomy COLONOSCOPY FLX DX W/COLLJ SPEC WHEN PFRMD Colonoscopy COLONOSCOPY FLX DX W/COLLJ SPEC WHEN PFRMD Colonoscopy LAPAROSCOPY SURG CHOLECYSTECTOMY Cholecystectomy, lap PAST SURGICAL HISTORY OF 01-17-12 BACK SURGERY PAST SURGICAL HISTORY OF SKIN LESION--PRE CANCER SKULL PAST SURGICAL HISTORY OF SKIN LESION--SKIN CANCER LEFT HAND PICC LINE MRSA INFECTION RT/LT HEART CATHETERS CC & CA, R & L heart, NEGATIVE TONSILLECTOMY PRIMARY/SECONDARY <AGE 10 Tonsillectomy Current Outpatient Medications Medication Sig Dispense Refill aspirin 81 mg chewable tablet Take by mouth. finasteride 0.1% minoxidil 7.5% topical solution (CPD) Finasteride Active 5 MG DAILY July 10, 2018 9:31am IFTIKHAR VAZQUEZ U-100 INSULIN 100 unit/mL (3 mL) BD CRISTAL 2ND GEN PEN NEEDLE 32 gauge x 32 glimepiride (AMARYL) 4 mg tablet MEN'S MULTI-VITAMIN ORAL Take 1 tablet by mouth. cyanocobalamin (VITAMIN B-12) 1,000 mcg tab Take 1,000 mcg by mouth once daily. tamsulosin (FLOMAX) 0.4 mg Take 0.4 mg by mouth once daily. finasteride (PROSCAR) 5 mg tablet Take 5 mg by mouth once daily. alendronate (FOSAMAX) 70 mg tablet Take 70 mg by mouth one time a week. In AM with cup of water on empty stomach. Nothing else by mouth and stay upright for 30 min. rosuvastatin (CRESTOR) 10 mg tablet Take 1 tablet by mouth daily at bedtime. 90 tablet 3 No current facility-administered medications for this visit. ALLERGIES Allergen Reactions Maxipime [Cefepime] Unknown FAMILY HISTORY Problem Relation Age of Onset Stroke Mother Ischemic Heart Disease Father Social History Tobacco Use Smoking status: Never Smokeless tobacco: Never Vaping Use Vaping Use: Never used Substance Use Topics Alcohol use: Yes Comment: social/rare Drug use: No I have reviewed the PMHx, PSHx, social history and ROS on April 08, 2023 - all new information noted. Review of Systems: Constitutional: No fevers, chills, drenching night sweats or unintentional weight loss. +fatigue. HEENT: No yellowing of the eyes, no vision changes, no hearing loss or ear pain, no nosebleeds or drainage, no sore throat. Neck: No complaints. Chest: No SOB or cough, +occasional [place], no hemoptysis, no wheezing. Breast: No complaints. Heart: No chest pain, pressure or tightness. No racing heartbeat. Abdominal: No pain or difficulty with swallowing, no N/V, no early satiety, no abdominal pain or bloating, no diarrhea or constipation, no change in bowel habits, no blood in the urine. Genitourinary: No pain or burning with urination, no incontinence, no blood in the urine. Extremities: no pain or swelling. Neurological: No headaches, no numbness or tingling in the extremities, no double vision. Skin: No rashes or ulcerations, no change in pigmentation. Nodes: no enlargement per patient. Heme: No easy bruising or bleeding, no yellowing of the eyes or darkening of urine. Psychiatric: no anxiety or depression. Immunologic: No recurrent or persistent infections of the sinuses, lungs or urinary tract. Endocrine: No hair or nail changes, no polyuria, polydipsia, or polyphagia. Appetite normal. I have performed the physical exam on April 08, 2023 - all new findings noted below. Physical Exam: BP 177/71[left arm[ Pulse 75 Temp 98.2 Ht 5' 10 (1.78m) Wt 214 lb (97.1kg) SpO2 98% BMI 30.71 kg/(m^2). ECOG PS: 0 Pain Intensity: 0/10 General: Age-appropriate well developed. Appears well. HEENT: Normocephalic, no sclera icterus, external ears normal, oral cavity clear. Neck: Supple, no thyroid nodules, no JVD. Chest: Clear bilaterally, no wheezes, not labored. Heart: Normal S1 and S2, no abnormal sounds, peripheral pulses synchronized. +murmur grade 1/6 Abdomen: Soft, nontender, nondistended, bowel sounds present, no organomegaly or mass, no rigidity. /Rectal: deferred Extremities: No cyanosis, clubbing, gross deformities, or palpable cords. Neurological: Cranial nerves II through XII are intact bilaterally, strength normal in the upper and lower extremities, no focal deficits. Skin: Warm and dry with no rashes or ulcerations. Nodes: No palpable adenopathy in the cervical, supraclavicular, infraclavicular, or axillary regions. Hematologic: no bruising or petechiae. Psychiatric: Alert and oriented x3. Emotional well-being assessment was performed. Pt denies depression, distress, and or problems with coping or adjustment. Labs CBC: No results for input(s): WBC, HB, HCT, PLT, MCV, RDWCV, NEUTP, ABSNEUT, LYMPHP, MONOP, EODINP in the last 168 hours. COAG: No results for input(s): APTT, INR in the last 168 hours. BMP: No results for input(s): GLUC, NA, K, CHLOR, CO2, ANION, BUN, CREAT in the last 168 hours. CHEM: No results for input(s): ALB, TPROT, CA, MG in the last 168 hours. Infusion Center on 03/29/2023 Component Date Value WBC 03/29/2023 5.68 RBC 03/29/2023 2.18 (L) Hemoglobin 03/29/2023 8.5 (L) Hematocrit 03/29/2023 25.4 (L) MCV 03/29/2023 116.5 (H) MCH 03/29/2023 39.0 (H) MCHC 03/29/2023 33.5 RDW-CV 03/29/2023 19.7 (H) Platelet Count 03/29/2023 126 (L) MPV 03/29/2023 11.4 Neutrophils % 03/29/2023 56.6 Abs Neut 03/29/2023 3.22 Lymphocytes % 03/29/2023 38.0 Abs Lymph 03/29/2023 2.16 Monocytes % 03/29/2023 4.4 Abs [place] 03/29/2023 0.25 Eosinophils % 03/29/2023 0.4 Abs Eosin 03/29/2023 <0.03 Basophils % 03/29/2023 0.4 Abs Baso 03/29/2023 <0.03 Immature Granulocytes % 03/29/2023 0.2 Abs Immature Gran 03/29/2023 <0.03 Diff Type 03/29/2023 Auto ABO 03/29/2023 B Rh(D) 03/29/2023 Positive Antibody Screen 03/29/2023 Negative Type and Screen Expirati* 03/29/2023 04/01/2023 23:59 HIstorical Ab Scr Status 03/29/2023 NEGATIVE Appointment on 03/26/2023 Component Date Value WBC 03/26/2023 4.83 RBC 03/26/2023 2.24 (L) Hemoglobin 03/26/2023 8.6 (L) Hematocrit 03/26/2023 26.2 (L) MCV 03/26/2023 117.0 (H) MCH 03/26/2023 38.4 (H) MCHC 03/26/2023 32.8 RDW-CV 03/26/2023 20.3 (H) Platelet Count 03/26/2023 139 (L) MPV 03/26/2023 12.4 Neutrophils % 03/26/2023 60.5 Abs Neut 03/26/2023 2.92 Lymphocytes % 03/26/2023 32.7 Abs Lymph 03/26/2023 1.58 Monocytes % 03/26/2023 5.6 Abs [place] 03/26/2023 0.27 Eosinophils % 03/26/2023 0.6 Abs Eosin 03/26/2023 0.03 Basophils % 03/26/2023 0.2 Abs Baso 03/26/2023 <0.03 Immature Granulocytes % 03/26/2023 0.4 Abs Immature Gran 03/26/2023 <0.03 Diff Type 03/26/2023 Auto ABO 03/26/2023 B Rh(D) 03/26/2023 Positive Antibody Screen 03/26/2023 Negative Type and Screen Expirati* 03/26/2023 03/29/2023 23:59 HIstorical Ab Scr Status 03/26/2023 NEGATIVE Appointment on 03/12/2023 Component Date Value WBC 03/12/2023 5.05 RBC 03/12/2023 2.31 (L) Hemoglobin 03/12/2023 8.8 (L) Hematocrit 03/12/2023 26.7 (L) MCV 03/12/2023 115.6 (H) MCH 03/12/2023 38.1 (H) MCHC 03/12/2023 33.0 RDW-CV 03/12/2023 20.9 (H) Platelet Count 03/12/2023 122 (L) MPV 03/12/2023 11.8 Neutrophils % 03/12/2023 52.1 Abs Neut 03/12/2023 2.63 Lymphocytes % 03/12/2023 39.4 Abs Lymph 03/12/2023 1.99 Monocytes % 03/12/2023 6.9 Abs [place] 03/12/2023 0.35 Eosinophils % 03/12/2023 0.6 Abs Eosin 03/12/2023 0.03 Basophils % 03/12/2023 0.4 Abs Baso 03/12/2023 <0.03 Immature Granulocytes % 03/12/2023 0.6 Abs Immature Gran 03/12/2023 0.03 Diff Type 03/12/2023 Auto ABO 03/12/2023 B Rh(D) 03/12/2023 Positive Antibody Screen 03/12/2023 Negative Type and Screen Expirati* 03/12/2023 03/15/2023 23:59 HIstorical Ab Scr Status 03/12/2023 NEGATIVE Lab Results Component Value Date MURRAY 869.8 (H) 05/22/2022 IRON Lab Results Component Value Date FE 128 05/22/2022 TIBC Lab Results Component Value Date TIBC 05/22/2022 Comment: Unable to assay. Specimen significantly hemolyzed. FOLATE Lab Results Component Value Date FOLATE >20.0 05/23/2022 Lab Results Component Value Date RETICP 1.8 07/03/2022 ABSRETIC 0.037 07/03/2022 MURRAY 869.8 (H) 05/22/2022 FE 128 05/22/2022 TIBC 05/22/2022 Comment: Unable to assay. Specimen significantly hemolyzed. TRANSFERSAT 05/22/2022 Comment: Unable to assay. Specimen significantly hemolyzed. Radiology: Pathology: BM biopsy 06/01/22: Variably cellular marrow with trilineage hematopoiesis and mild erythroid and megakaryocyte atypia. - Storage iron present and focally increased. The marrow is variably cellular and at least focally appears mildly increased although the biopsy is small and fragmented and suboptimal. Mild atypia is seen in the erythroids, and occasional small megakaryocytes are present. Although an early myeloid neoplasm is in the differential, this degree of atypia may be seen due to other causes including nutritional deficiencies such as vitamin B12, folate or copper, toxic exposures, autoimmune/rheumatologic etiologies, infectious etiologies, and other neoplasms. The finding of vacuolated immature erythroids in the aspirate raises the possibility of copper deficiency. Correlation with copper levels may be useful if clinically indicated. Mast cells appear increased, predominantly morphologically unremarkable. The myeloid NGS demonstrates a variant of potential clinical significance in the PPM1D gene, which raises the possibility of a clonal cytopenia of undetermined significance, although this variant is rarely germline. 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 2) Macrocytic anemia - related to #1. 3) Fatigue - likely due to anemia. 4) DM - on insulin. - trying to get BS < 200. Reviewed with pt and . Plan is to initiate PRBC if needed and ideally keep Hb between 7 and 8. I would like to try Luspatercept for him to see if we can make him transfusion independent and help slow down the progression of his CCUP. He would like to forgo transfusion for hgb 7.9. Reporting that he still feels good. *continue on luspatercept. No transfusions since 01/2023. Improvement 1.5 gms. Continue to check labs eow per pt discussion. Offered to check once a month and will continue eow for now. The patient and his were able to ask questions and all were answered to their satisfaction. ? [place] for [employer] Changing to [employer] 02/25/23. Parts of the HPI, ROS, exam and impression/plan may have been copied from my personal previous clinical note and remain pertinent. Current changes have been made and documented today. Other parts or data were deleted if not relevant for today. The documentation has been reviewed and edited as necessary to support the clinical decision making for today's visit. Alka Noriega MD documented in this encounter [facility] 03-05-2023 History of Presen t illness Narrative Joss Oropeza 1945 March 05, 2023 HPI: Joss Oropeza is a 77 year old male who presents as a hospital follow up. Mr. Oropeza is a 77 year old male who presented to ER on 05/22/22 for anemia. This is a 77 year old male who presented with for low hgb from primary care office. Patient states he was 6.7 at PCP office and 6.0 at [facility]. PMHx of chronic anemia (baseline 9-11), diabetes, hepatic steatosis, CVA on ASA. He reports worsening shortness of breath over the last 1 year associated with weakness and fatigue. He denies any chest pain. He denies any overt GI bleeding, no blood or darker stool, no weight loss, no abdominal pain, no issues swallowing, and no issues with constipation or diarrhea. Reports several colonoscopies in the past with Dr. Hernandez in [place], last done July 2021 that had one polyp removed. Remote EGD. He does endorse some heartburn and reflux occasionally. He denies any NSAID use besides ASA 81 mg, no blood thinners, no smoking, and only rare alcohol use. Hgb this morning 7.2 from 5.9 s/p 1 unit of blood. Platelets low 114, and MCV elevated. Kidney function normal. Iron studies showing normal iron, ferritin elevated, folate and b12 normal. CT a/p showed no acute findings in abdomen and pelvis. VSS. GI consulted for anemia. I was asked to see him for macrocytic anemia prior to d/c. He was SOB on admission and now feels better. He received 1 unit PRBC on 05/22 and another on 05/23/22. He is very active on his tractor at home. He is a non smoker. Does not drink alcohol. No family hx of bone marrow issues. Denies any bleeding. Interval history: Today he is here for follow up. With today. Now has [employer] insurance as of 02/2023 Last transfusion 02/12/2023 for hgb 7. Healing bruise on LLQ from insulin Denies any bleeding. PCP changed DM meds due to cost. Feeling well. No major changes. Wants to hold off on transfusion tomorrow. Fatigued but no change. Got a transfusion 11/29/22. No change in how he felt with the transfusion. 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 PAST SURGICAL HISTORY Procedure Laterality Date ADENOIDECTOMY PRIMARY <AGE 10 Adenoidectomy COLONOSCOPY FLX DX W/COLLJ SPEC WHEN PFRMD Colonoscopy COLONOSCOPY FLX DX W/COLLJ SPEC WHEN PFRMD Colonoscopy LAPAROSCOPY SURG CHOLECYSTECTOMY Cholecystectomy, lap PAST SURGICAL HISTORY OF 01-16-12 BACK SURGERY PAST SURGICAL HISTORY OF SKIN LESION--PRE CANCER SKULL PAST SURGICAL HISTORY OF SKIN LESION--SKIN CANCER LEFT HAND PICC LINE MRSA INFECTION RT/LT HEART CATHETERS CC & CA, R & L heart, NEGATIVE TONSILLECTOMY PRIMARY/SECONDARY <AGE 10 Tonsillectomy Current Outpatient Medications Medication Sig Dispense Refill glimepiride (AMARYL) 4 mg tablet metFORMIN (GLUCOPHAGE) 1,000 mg tablet rosuvastatin (CRESTOR) 10 mg tablet Take 1 tablet by mouth daily at bedtime. 90 tablet 3 MEN'S MULTI-VITAMIN ORAL Take 1 tablet by mouth. cyanocobalamin (VITAMIN B-12) 1,000 mcg tab Take 1,000 mcg by mouth once daily. tamsulosin (FLOMAX) 0.4 mg Take 0.4 mg by mouth once daily. finasteride (PROSCAR) 5 mg tablet Take 5 mg by mouth once daily. alendronate (FOSAMAX) 70 mg tablet Take 70 mg by mouth one time a week. In AM with cup of water on empty stomach. Nothing else by mouth and stay upright for 30 min. aspirin, enteric coated (ASPIR-LOW) 81 mg EC tablet Take 1 tablet by mouth once daily. 0 No current facility-administered medications for this visit. ALLERGIES Allergen Reactions Maxipime [Cefepime] Unknown [id number] Red* Other: See Comments, Unknown Leg pain FAMILY HISTORY Problem Relation Age of Onset Stroke Mother Ischemic Heart Disease Father Social History Tobacco Use Smoking status: Never Smokeless tobacco: Never Vaping Use Vaping Use: Never used Substance Use Topics Alcohol use: Yes Comment: social/rare Drug use: No I have reviewed the PMHx, PSHx, social history and ROS on March 05, 2023 - all new information noted. Review of Systems: Constitutional: No fevers, chills, drenching night sweats or unintentional weight loss. +fatigue. HEENT: No yellowing of the eyes, no vision changes, no hearing loss or ear pain, no nosebleeds or drainage, no sore throat. Neck: No complaints. Chest: No SOB or cough, +occasional PENN[place], no hemoptysis, no wheezing. Breast: No complaints. Heart: No chest pain, pressure or tightness. No racing heartbeat. Abdominal: No pain or difficulty with swallowing, no N/V, no early satiety, no abdominal pain or bloating, no diarrhea or constipation, no change in bowel habits, no blood in the urine. Genitourinary: No pain or burning with urination, no incontinence, no blood in the urine. Extremities: no pain or swelling. Neurological: No headaches, no numbness or tingling in the extremities, no double vision. Skin: No rashes or ulcerations, no change in pigmentation. Nodes: no enlargement per patient. Heme: No easy bruising or bleeding, no yellowing of the eyes or darkening of urine. Psychiatric: no anxiety or depression. Immunologic: No recurrent or persistent infections of the sinuses, lungs or urinary tract. Endocrine: No hair or nail changes, no polyuria, polydipsia, or polyphagia. Appetite normal. I have performed the physical exam on March 05, 2023 - all new findings noted below. Physical Exam: BP 162/72[right arm[ Pulse 70 Temp 98.4 Ht 5' 10 (1.78m) Wt 215 lb (97.5kg) SpO2 97% BMI 30.85 kg/(m^2). ECOG PS: 0 Pain Intensity: 0/10 General: Age-appropriate well developed. Appears well. HEENT: Normocephalic, no sclera icterus, external ears normal, oral cavity clear. Neck: Supple, no thyroid nodules, no JVD. Chest: Clear bilaterally, no wheezes, not labored. Heart: Normal S1 and S2, no abnormal sounds, peripheral pulses synchronized. +murmur grade 1/6 Abdomen: Soft, nontender, nondistended, bowel sounds present, no organomegaly or mass, no rigidity. /Rectal: deferred Extremities: No cyanosis, clubbing, gross deformities, or palpable cords. Neurological: Cranial nerves II through XII are intact bilaterally, strength normal in the upper and lower extremities, no focal deficits. Skin: Warm and dry with no rashes or ulcerations. Nodes: No palpable adenopathy in the cervical, supraclavicular, infraclavicular, or axillary regions. Hematologic: no bruising or petechiae. Psychiatric: Alert and oriented x3. Emotional well-being assessment was performed. Pt denies depression, distress, and or problems with coping or adjustment. Labs CBC: No results for input(s): WBC, HB, HCT, PLT, MCV, RDWCV, NEUTP, ABSNEUT, LYMPHP, MONOP, EODINP in the last 168 hours. COAG: No results for input(s): APTT, INR in the last 168 hours. BMP: No results for input(s): GLUC, NA, K, CHLOR, CO2, ANION, BUN, CREAT in the last 168 hours. CHEM: No results for input(s): ALB, TPROT, CA, MG in the last 168 hours. Appointment on 02/26/2023 Component Date Value WBC 02/26/2023 3.86 RBC 02/26/2023 2.11 (L) Hemoglobin 02/26/2023 7.9 (L) Hematocrit 02/26/2023 24.8 (L) MCV 02/26/2023 117.5 (H) MCH 02/26/2023 37.4 (H) MCHC 02/26/2023 31.9 RDW-CV 02/26/2023 22.2 (H) Platelet Count 02/26/2023 115 (L) MPV 02/26/2023 11.9 Neutrophils % 02/26/2023 49.5 Abs Neut 02/26/2023 1.91 Lymphocytes % 02/26/2023 39.9 Abs Lymph 02/26/2023 1.54 Monocytes % 02/26/2023 8.5 Abs Donley 02/26/2023 0.33 Eosinophils % 02/26/2023 1.3 Abs Eosin 02/26/2023 0.05 Basophils % 02/26/2023 0.5 Abs Baso 02/26/2023 <0.03 Immature Granulocytes % 02/26/2023 0.3 Abs Immature Gran 02/26/2023 <0.03 Diff Type 02/26/2023 Auto ABO 02/26/2023 B Rh(D) 02/26/2023 Positive Antibody Screen 02/26/2023 Negative Type and Screen Expirati* 02/26/2023 03/01/2023 23:59 HIstorical Ab Scr Status 02/26/2023 NEGATIVE Infusion Center on 02/12/2023 Component Date Value XM RESULT 02/12/2023 Compatible Expiration Date 02/12/202316307447209269 Product Expiration Date 02/12/2023 03/07/2023 23:59 ISBT Blood Type 02/12/2023 7300 Unit Blood Type 02/12/2023 B Pos Unit Number 02/12/2023 [id number] Status Information 02/12/2023 Issued Final Product Identification 02/12/2023 Red Blood Cells Product Code 02/12/2023 [id number] Issue Date/Time 02/12/2023 [id number] Appointment on 02/12/2023 Component Date Value WBC 02/12/2023 4.84 RBC 02/12/2023 1.77 (L) Hemoglobin 02/12/2023 7.0 (L) Hematocrit 02/12/2023 21.8 (L) MCV 02/12/2023 123.2 (H) MCH 02/12/2023 39.5 (H) MCHC 02/12/2023 32.1 RDW-CV 02/12/2023 19.8 (H) Platelet Count 02/12/2023 117 (L) MPV 02/12/2023 11.7 Neutrophils % 02/12/2023 60.1 Abs Neut 02/12/2023 2.91 Lymphocytes % 02/12/2023 33.7 Abs Lymph 02/12/2023 1.63 Monocytes % 02/12/2023 5.4 Abs Donley 02/12/2023 0.26 Eosinophils % 02/12/2023 0.4 Abs Eosin 02/12/2023 <0.03 Basophils % 02/12/2023 0.2 Abs Baso 02/12/2023 <0.03 Immature Granulocytes % 02/12/2023 0.2 Abs Immature Gran 02/12/2023 <0.03 Diff Type 02/12/2023 Auto ABO 02/12/2023 B Rh(D) 02/12/2023 Positive Antibody Screen 02/12/2023 Negative Type and Screen Expirati* 02/12/2023 02/15/2023 23:59 HIstorical Ab Scr Status 02/12/2023 NEGATIVE Appointment on 02/05/2023 Component Date Value WBC 02/05/2023 4.58 RBC 02/05/2023 1.89 (L) Hemoglobin 02/05/2023 7.3 (L) Hematocrit 02/05/2023 23.0 (L) MCV 02/05/2023 121.7 (H) MCH 02/05/2023 38.6 (H) MCHC 02/05/2023 31.7 RDW-CV 02/05/2023 19.9 (H) Platelet Count 02/05/2023 123 (L) MPV 02/05/2023 11.5 Neutrophils % 02/05/2023 59.4 Abs Neut 02/05/2023 2.72 Lymphocytes % 02/05/2023 33.2 Abs Lymph 02/05/2023 1.52 Monocytes % 02/05/2023 5.9 Abs Donley 02/05/2023 0.27 Eosinophils % 02/05/2023 0.7 Abs Eosin 02/05/2023 0.03 Basophils % 02/05/2023 0.4 Abs Baso 02/05/2023 <0.03 Immature Granulocytes % 02/05/2023 0.4 Abs Immature Gran 02/05/2023 <0.03 Diff Type 02/05/2023 Auto ABO 02/05/2023 B Rh(D) 02/05/2023 Positive Antibody Screen 02/05/2023 Negative Type and Screen Expirati* 02/05/2023 02/08/2023 23:59 HIstorical Ab Scr Status 02/05/2023 NEGATIVE Appointment on 01/22/2023 Component Date Value WBC 01/22/2023 4.79 RBC 01/22/2023 2.01 (L) Hemoglobin 01/22/2023 7.6 (L) Hematocrit 01/22/2023 23.4 (L) MCV 01/22/2023 116.4 (H) MCH 01/22/2023 37.8 (H) MCHC 01/22/2023 32.5 RDW-CV 01/22/2023 21.1 (H) Platelet Count 01/22/2023 127 (L) MPV 01/22/2023 11.3 Neutrophils % 01/22/2023 53.9 Abs Neut 01/22/2023 2.58 Lymphocytes % 01/22/2023 37.6 Abs Lymph 01/22/2023 1.80 Monocytes % 01/22/2023 7.1 Abs Donley 01/22/2023 0.34 Eosinophils % 01/22/2023 0.8 Abs Eosin 01/22/2023 0.04 Basophils % 01/22/2023 0.4 Abs Baso 01/22/2023 <0.03 Immature Granulocytes % 01/22/2023 0.2 Abs Immature Gran 01/22/2023 <0.03 Diff Type 01/22/2023 Auto ABO 01/22/2023 B Rh(D) 01/22/2023 Positive Antibody Screen 01/22/2023 Negative Type and Screen Expirati* 01/22/2023 01/25/2023 23:59 HIstorical Ab Scr Status 01/22/2023 NEGATIVE FERRITIN BLD Lab Results Component Value Date MURRAY 869.8 (H) 05/22/2022 IRON Lab Results Component Value Date FE 128 05/22/2022 TIBC Lab Results Component Value Date TIBC 05/22/2022 Comment: Unable to assay. Specimen significantly hemolyzed. FOLATE Lab Results Component Value Date FOLATE >20.0 05/23/2022 Lab Results Component Value Date RETICP 1.8 07/03/2022 ABSRETIC 0.037 07/03/2022 MURRAY 869.8 (H) 05/22/2022 FE 128 05/22/2022 TIBC 05/22/2022 Comment: Unable to assay. Specimen significantly hemolyzed. TRANSFERSAT 05/22/2022 Comment: Unable to assay. Specimen significantly hemolyzed. Radiology: Pathology: BM biopsy 06/01/22: Variably cellular marrow with trilineage hematopoiesis and mild erythroid and megakaryocyte atypia. - Storage iron present and focally increased. The marrow is variably cellular and at least focally appears mildly increased although the biopsy is small and fragmented and suboptimal. Mild atypia is seen in the erythroids, and occasional small megakaryocytes are present. Although an early myeloid neoplasm is in the differential, this degree of atypia may be seen due to other causes including nutritional deficiencies such as vitamin B12, folate or copper, toxic exposures, autoimmune/rheumatologic etiologies, infectious etiologies, and other neoplasms. The finding of vacuolated immature erythroids in the aspirate raises the possibility of copper deficiency. Correlation with copper levels may be useful if clinically indicated. Mast cells appear increased, predominantly morphologically unremarkable. The myeloid NGS demonstrates a variant of potential clinical significance in the PPM1D gene, which raises the possibility of a clonal cytopenia of undetermined significance, although this variant is rarely germline. 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 2) Macrocytic anemia - related to #1. 3) Fatigue - likely due to anemia. Reviewed with pt and . Plan is to initiate PRBC if needed and ideally keep Hb between 7 and 8. I would like to try Luspatercept for him to see if we can make him transfusion independent and help slow down the progression of his CCUP. He would like to forgo transfusion for hgb 7.9. Reporting that he still feels good. I will see him back in 1 month for follow up. Will see if Luspatercept will be covered. If not, will give Aranesp. Continue to check labs eow per pt discussion. Offered to check once a month and will continue eow for now. The patient and his were able to ask questions and all were answered to their satisfaction. ? Mora for [employer] Changing to [employer] 02/25/23. *Luspatercept Parts of the HPI, ROS, exam and impression/plan may have been copied from my personal previous clinical note and remain pertinent. Current changes have been made and documented today. Other parts or data were deleted if not relevant for today. The documentation has been reviewed and edited as necessary to support the clinical decision making for today's visit. Alka Noriega MD documented in this encounter [facility] 01-02-2023 Telephone encounter Note S: pt calling CAC d/t returning call to office. B: States was called today A: Pt returning call from office. States the message was about medications. Per note pt was notified of instructions on 12/31 reread note to patient would consider lantus when patient is no loner on janumet- would need a couple of days of blood sugars off of janumet to determine dose. 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 Discussed taking blood sugar readings and keeping log for next couple of days. Pt is awaiting call for scheduling ed follow up appointment. R: message to physician. Please Pt advised to call back with worsening of symptoms, concern or questions. Pt verbalized understanding. Reason for Disposition General information question, no triage required and triager able to answer question Protocols used: Information Only Call - No [id number] [facility] 01-02-2023 Miscellaneous Notes S: pt calling CAC d/t returning call to office. B: States was called today A: Pt returning call from office. States the message was about medications. Per note pt was notified of instructions on 12/31 reread note to patient would consider lantus when patient is no loner on janumet- would need a couple of days of blood sugars off of janumet to determine dose. 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 Discussed taking blood sugar readings and keeping log for next couple of days. Pt is awaiting call for scheduling ed follow up appointment. R: message to physician. Please Pt advised to call back with worsening of symptoms, concern or questions. Pt verbalized understanding. Reason for Disposition General information question, no triage required and triager able to answer question Protocols used: Information Only Call - No [id number] documented in this encounter [facility] 12-29-2022 Telephone encounter Note S: Patient spoke with CAC nurse regarding medication concerns B: Onset of symptoms/concern last week A: Patient had called for follow-up regarding the medication Janumet. Nurse read the messages to patient from provider's office from 12/26/22-12/27/22. Office had spoken to patient's spouse on 12/27, patient was to have called PCP back on 12/28/02, patient never received the message from his spouse. PCP will consider putting patient on insulin due to cost of Janumet XR (Current cost of medication is $500 per month per patient). PCP was requesting current BS results, prior to putting patient on a small dose of daily insulin such as Lantus. Patient states the BS results he does have are: 12/18-208, 12/13-172, 12/08-231, 12/07-167, 12/05-150, 12/03-202, and 11/29-215. Patient was in the hospital with a throat infection and doesn't have current results. Patient has never given himself insulin injections before. Patient has 5 pills remaining, will get him through until Saturday. Nurse instructed patient a HP message would be sent to the office for follow-up, patient also instructed to call the office Saturday morning also. Patient will need education and teaching on insulin injections. Patient verbalized understanding. Reason for Disposition [1] Prescription refill request for NON-ESSENTIAL medicine (i.e., no harm to patient if med not taken) AND [2] triager unable to refill per department policy Protocols used: Medication Refill and Renewal [id number] [facility] 12-29-2022 Miscellaneous Notes S: Patient spoke with CAC nurse regarding medication concerns B: Onset of symptoms/concern last week A: Patient had called for follow-up regarding the medication Janumet. Nurse read the messages to patient from provider's office from 12/26/22-12/27/22. Office had spoken to patient's spouse on 12/27, patient was to have called PCP back on 12/28/02, patient never received the message from his spouse. PCP will consider putting patient on insulin due to cost of Janumet XR (Current cost of medication is $500 per month per patient). PCP was requesting current BS results, prior to putting patient on a small dose of daily insulin such as Lantus. Patient states the BS results he does have are: 12/18-208, 12/13-172, 12/08-231, 12/07-167, 12/05-150, 12/03-202, and 11/29-215. Patient was in the hospital with a throat infection and doesn't have current results. Patient has never given himself insulin injections before. Patient has 5 pills remaining, will get him through until Saturday. Nurse instructed patient a HP message would be sent to the office for follow-up, patient also instructed to call the office Saturday morning also. Patient will need education and teaching on insulin injections. Patient verbalized understanding. Reason for Disposition [1] Prescription refill request for NON-ESSENTIAL medicine (i.e., no harm to patient if med not taken) AND [2] triager unable to refill per department policy Protocols used: Medication Refill and Renewal [id number] documented in this encounter [facility] 12-11-2022 History of Presen t illness Narrative Joss Oropeza 1945 December 11, 2022 Cancer Staging No matching staging information was found for the patient. HPI: Joss Oropeza is a 77 year old male who presents as a hospital follow up. Mr. Oropeza is a 77 year old male who presented to ER on 05/22/22 for anemia. This is a 77 year old male who presented with for low hgb from primary care office. Patient states he was 6.7 at PCP office and 6.0 at [facility]. PMHx of chronic anemia (baseline 9-11), diabetes, hepatic steatosis, CVA on ASA. He reports worsening shortness of breath over the last 1 year associated with weakness and fatigue. He denies any chest pain. He denies any overt GI bleeding, no blood or darker stool, no weight loss, no abdominal pain, no issues swallowing, and no issues with constipation or diarrhea. Reports several colonoscopies in the past with Dr. Hernandez in [place], last done July 2021 that had one polyp removed. Remote EGD. He does endorse some heartburn and reflux occasionally. He denies any NSAID use besides ASA 81 mg, no blood thinners, no smoking, and only rare alcohol use. Hgb this morning 7.2 from 5.9 s/p 1 unit of blood. Platelets low 114, and MCV elevated. Kidney function normal. Iron studies showing normal iron, ferritin elevated, folate and b12 normal. CT a/p showed no acute findings in abdomen and pelvis. VSS. GI consulted for anemia. Today I was asked to see him for macrocytic anemia prior to d/c. He was SOB on admission and now feels better. He received 1 unit PRBC on 05/22 and another on 05/23/22. He is very active on his tractor at home. He is a non smoker. Does not drink alcohol. No family hx of bone marrow issues. Denies any bleeding. Interval history: Today he is here for follow up. With today. Got a transfusion 11/29. No change in how he felt with the transfusion. Noticed that ever since he had a transfusion in april 2022, he is very itchy. He then creates a large red spot on the area that he scratches. No longer SOB and has plenty of energy. 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 PAST SURGICAL HISTORY Procedure Laterality Date ADENOIDECTOMY PRIMARY <AGE 10 Adenoidectomy COLONOSCOPY FLX DX W/COLLJ SPEC WHEN PFRMD Colonoscopy COLONOSCOPY FLX DX W/COLLJ SPEC WHEN PFRMD Colonoscopy LAPAROSCOPY SURG CHOLECYSTECTOMY Cholecystectomy, lap PAST SURGICAL HISTORY OF 11-22-12 BACK SURGERY PAST SURGICAL HISTORY OF SKIN LESION--PRE CANCER SKULL PAST SURGICAL HISTORY OF SKIN LESION--SKIN CANCER LEFT HAND PICC LINE MRSA INFECTION RT/LT HEART CATHETERS CC & CA, R & L heart, NEGATIVE TONSILLECTOMY PRIMARY/SECONDARY <AGE 10 Tonsillectomy Current Outpatient Medications Medication Sig Dispense Refill JANUMET 50-1,000 mg per tablet sitagliptin phos/metformin HCl (JANUMET ORAL) Take 100 mg by mouth. glimepiride (AMARYL) 1 mg tablet Take 1 tablet by mouth daily with dinner. metFORMIN ER (GLUCOPHAGE XR) 750 mg 24 hr tablet Take 1 tablet by mouth twice daily. MEN'S MULTI-VITAMIN ORAL Take 1 tablet by mouth. cyanocobalamin (VITAMIN B-12) 1,000 mcg tab Take 1,000 mcg by mouth once daily. tamsulosin (FLOMAX) 0.4 mg Take 0.4 mg by mouth once daily. finasteride (PROSCAR) 5 mg tablet Take 5 mg by mouth once daily. alendronate (FOSAMAX) 70 mg tablet Take 70 mg by mouth one time a week. In AM with cup of water on empty stomach. Nothing else by mouth and stay upright for 30 min. aspirin, enteric coated (ASPIR-LOW) 81 mg EC tablet Take 1 tablet by mouth once daily. [address] (PROTONIX) 40 mg tablet Take 1 tablet by mouth DAILY (6 AM). 30 tablet 0 rosuvastatin (CRESTOR) 10 mg tablet Take 1 tablet by mouth daily at bedtime. 90 tablet 3 No current facility-administered medications for this visit. ALLERGIES Allergen Reactions Maxipime [Cefepime] Unknown [id number] Red* Other: See Comments, Unknown Leg pain FAMILY HISTORY Problem Relation Age of Onset Stroke Mother Ischemic Heart Disease Father Social History Tobacco Use Smoking status: Never Smokeless tobacco: Never Vaping Use Vaping Use: Never used Substance Use Topics Alcohol use: Yes Comment: social/rare Drug use: No I have reviewed the PMHx, PSHx, social history and ROS on December 11, 2022 - all new information noted. Review of Systems: Constitutional: No fevers, chills, drenching night sweats or unintentional weight loss. HEENT: No yellowing of the eyes, no vision changes, no hearing loss or ear pain, no nosebleeds or drainage, no sore throat. Neck: No complaints. Chest: No SOB or cough, no [place], no hemoptysis, no wheezing. Breast: No complaints. Heart: No chest pain, pressure or tightness. No racing heartbeat. Abdominal: No pain or difficulty with swallowing, no N/V, no early satiety, no abdominal pain or bloating, no diarrhea or constipation, no change in bowel habits, no blood in the urine. Genitourinary: No pain or burning with urination, no incontinence, no blood in the urine. Extremities: no pain or swelling. Neurological: No headaches, no numbness or tingling in the extremities, no double vision. Skin: No rashes or ulcerations, no change in pigmentation. Nodes: no enlargement per patient. Heme: No easy bruising or bleeding, no yellowing of the eyes or darkening of urine. Psychiatric: no anxiety or depression. Immunologic: No recurrent or persistent infections of the sinuses, lungs or urinary tract. Endocrine: No hair or nail changes, no polyuria, polydipsia, or polyphagia. Appetite normal. I have performed the physical exam on December 11, 2022 - all new findings noted below. Physical Exam: BP 162/65[left arm[ Pulse 89 Temp 97.7 Ht 5' 10 (1.78m) Wt 215 lb (97.5kg) SpO2 99% BMI 30.85 kg/(m^2). ECOG PS: 0 Pain Intensity: 0/10 General: Age-appropriate well developed. Appears well. Fatigue. HEENT: Normocephalic, no sclera icterus, external ears normal, oral cavity clear. Neck: Supple, no thyroid nodules, no JVD. Chest: Clear bilaterally, no wheezes, not labored. Heart: Normal S1 and S2, no abnormal sounds, peripheral pulses synchronized. Abdomen: Soft, nontender, nondistended, bowel sounds present, no organomegaly or mass, no rigidity. /Rectal: deferred Extremities: No cyanosis, clubbing, gross deformities, or palpable cords. Neurological: Cranial nerves II through XII are intact bilaterally, strength normal in the upper and lower extremities, no focal deficits. Skin: Warm and dry with no rashes or ulcerations. Nodes: No palpable adenopathy in the cervical, supraclavicular, infraclavicular, or axillary regions. Hematologic: no bruising or petechiae. Psychiatric: Alert and oriented x3. Emotional well-being assessment was performed. Pt denies depression, distress, and or problems with coping or adjustment. Labs CBC: Recent Labs 12/10/22 1254 WBC 4.91 HB 8.9* HCT 27.8* PLT 131* MCV 112.6* NEUTP 51.6 ABSNEUT 2.53 LYMPHP 41.1 MONOP 6.3 COAG: No results for input(s): APTT, INR in the last 168 hours. BMP: No results for input(s): GLUC, NA, K, CHLOR, CO2, ANION, BUN, CREAT in the last 168 hours. CHEM: No results for input(s): ALB, TPROT, CA, MG in the last 168 hours. FERRITIN BLD Lab Results Component Value Date MURRAY 869.8 (H) 05/22/2022 IRON Lab Results Component Value Date FE 128 05/22/2022 TIBC Lab Results Component Value Date TIBC 05/22/2022 Comment: Unable to assay. Specimen significantly hemolyzed. FOLATE Lab Results Component Value Date FOLATE >20.0 05/23/2022 Lab Results Component Value Date RETICP 1.8 07/03/2022 ABSRETIC 0.037 07/03/2022 MURRAY 869.8 (H) 05/22/2022 FE 128 05/22/2022 TIBC 05/22/2022 Comment: Unable to assay. Specimen significantly hemolyzed. TRANSFERSAT 05/22/2022 Comment: Unable to assay. Specimen significantly hemolyzed. Radiology: Pathology: BM biopsy 06/01/22: Variably cellular marrow with trilineage hematopoiesis and mild erythroid and megakaryocyte atypia. - Storage iron present and focally increased. The marrow is variably cellular and at least focally appears mildly increased although the biopsy is small and fragmented and suboptimal. Mild atypia is seen in the erythroids, and occasional small megakaryocytes are present. Although an early myeloid neoplasm is in the differential, this degree of atypia may be seen due to other causes including nutritional deficiencies such as vitamin B12, folate or copper, toxic exposures, autoimmune/rheumatologic etiologies, infectious etiologies, and other neoplasms. The finding of vacuolated immature erythroids in the aspirate raises the possibility of copper deficiency. Correlation with copper levels may be useful if clinically indicated. Mast cells appear increased, predominantly morphologically unremarkable. The myeloid NGS demonstrates a variant of potential clinical significance in the PPM1D gene, which raises the possibility of a clonal cytopenia of undetermined significance, although this variant is rarely germline. 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 Related to BM d/o. - recommend pt have a BM biopsy and can schedule this outpt. 2) Fatigue - likely due to anemia. 1 mo f/up Look for luspatercept coverage and if not, Aranesp Continue to check labs eow per pt discussion. Offered to check once a month and will continue eow for now. ? [facility] The patient and their family were able to ask questions and all were answered to their satisfaction. Parts of the HPI, ROS, exam and impression/plan may have been copied from my personal previous clinical note and remain pertinent. Current changes have been made and documented today. Other parts or data were deleted if not relevant for today. The documentation has been reviewed and edited as necessary to support the clinical decision making for today's visit. Alka Noriega MD documented in this encounter [facility] 11-29-2022 History of Presen t illness Narrative Pt ambulated to infusion room without incident. Gait strong steady. Pt denies SOB or weakness, but states he usually doesn't notice when his Hgb is low. PIV started in right arm without incident. one unit RBC's up as ordered, pt educated to inform RN of any discomfort including SOB, CP, back pain, chill or itching. Will continue to reassess and monitor. Pt tolerated transfusion without incident. Denies SOB, Chest pain, back pain, chills or itching. Pt verbalized understanding that if he experience these or other symptoms he will contact his oncologist or go the emergency room to be evaluated. Denies further needs or questions. Ambulated to lobby without incident. Electronically Signed By: Fabiola Agarwal RN documented in this encounter [facility] 11-16-2022 History of Presen t illness Narrative Joss Oropeza 1945 November 16, 2022 Cancer Staging No matching staging information was found for the patient. HPI:Mr. Oropeza is a 77 year old male who presented to ER on 05/22/22 for anemia. This is a 77 year old male who presented with for low hgb from primary care office. Patient states he was 6.7 at PCP office and 6.0 at [facility]. PMHx of chronic anemia (baseline 9-11), diabetes, hepatic steatosis, CVA on ASA. He reports worsening shortness of breath over the last 1 year associated with weakness and fatigue. He denies any chest pain. He denies any overt GI bleeding, no blood or darker stool, no weight loss, no abdominal pain, no issues swallowing, and no issues with constipation or diarrhea. Reports several colonoscopies in the past with Dr. Hernandez in [place], last done July 2021 that had one polyp removed. Remote EGD. He does endorse some heartburn and reflux occasionally. He denies any NSAID use besides ASA 81 mg, no blood thinners, no smoking, and only rare alcohol use. Hgb this morning 7.2 from 5.9 s/p 1 unit of blood. Platelets low 114, and MCV elevated. Kidney function normal. Iron studies showing normal iron, ferritin elevated, folate and b12 normal. CT a/p showed no acute findings in abdomen and pelvis. VSS. GI consulted for anemia. Today I was asked to see him for macrocytic anemia prior to d/c. He was SOB on admission and now feels better. He received 1 unit PRBC on 05/22 and another on 05/23/22. He is very active on his tractor at home. He is a non smoker. Does not drink alcohol. No family hx of bone marrow issues. Denies any bleeding. Interval history: Today he is here for follow up. With today. Noticed that ever since he had a transfusion in april, he is very itchy. He then creates a large red spot on the area that he scratches. No longer SOB and has plenty of energy. 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 PAST SURGICAL HISTORY Procedure Laterality Date ADENOIDECTOMY PRIMARY <AGE 12 Adenoidectomy COLONOSCOPY FLX DX W/COLLJ SPEC WHEN PFRMD Colonoscopy COLONOSCOPY FLX DX W/COLLJ SPEC WHEN PFRMD Colonoscopy LAPAROSCOPY SURG CHOLECYSTECTOMY Cholecystectomy, lap PAST SURGICAL HISTORY OF 01-17-12 BACK SURGERY PAST SURGICAL HISTORY OF SKIN LESION--PRE CANCER SKULL PAST SURGICAL HISTORY OF SKIN LESION--SKIN CANCER LEFT HAND PICC LINE MRSA INFECTION RT/LT HEART CATHETERS CC & CA, R & L heart, NEGATIVE TONSILLECTOMY PRIMARY/SECONDARY <AGE 10 Tonsillectomy Current Outpatient Medications Medication Sig Dispense Refill JANUMET 50-1,000 mg per tablet sitagliptin phos/metformin HCl (JANUMET ORAL) Take 100 mg by mouth. pantoprazole DR (PROTONIX) 40 mg tablet Take 1 tablet by mouth DAILY (6 AM). 30 tablet 0 glimepiride (AMARYL) 1 mg tablet Take 1 tablet by mouth daily with dinner. metFORMIN ER (GLUCOPHAGE XR) 750 mg 24 hr tablet Take 1 tablet by mouth twice daily. rosuvastatin (CRESTOR) 10 mg tablet Take 1 tablet by mouth daily at bedtime. 90 tablet 3 MEN'S MULTI-VITAMIN ORAL Take 1 tablet by mouth. cyanocobalamin (VITAMIN B-12) 1,000 mcg tab Take 1,000 mcg by mouth once daily. tamsulosin (FLOMAX) 0.4 mg Take 0.4 mg by mouth once daily. finasteride (PROSCAR) 5 mg tablet Take 5 mg by mouth once daily. alendronate (FOSAMAX) 70 mg tablet Take 70 mg by mouth one time a week. In AM with cup of water on empty stomach. Nothing else by mouth and stay upright for 30 min. aspirin, enteric coated (ASPIR-LOW) 81 mg EC tablet Take 1 tablet by mouth once daily. 0 No current facility-administered medications for this visit. ALLERGIES Allergen Reactions Maxipime [Cefepime] Unknown [id number] Red* Other: See Comments, Unknown Leg pain FAMILY HISTORY Problem Relation Age of Onset Stroke Mother Ischemic Heart Disease Father Social History Tobacco Use Smoking status: Never Smokeless tobacco: Never Vaping Use Vaping Use: Never used Substance Use Topics Alcohol use: Yes Comment: social/rare Drug use: No I have reviewed the PMHx, PSHx, social history and ROS on November 16, 2022 - all new information noted. Review of Systems: Constitutional: No fevers, chills, drenching night sweats or unintentional weight loss. HEENT: No yellowing of the eyes, no vision changes, no hearing loss or ear pain, no nosebleeds or drainage, no sore throat. Neck: No complaints. Chest: No SOB or cough, no [place], no hemoptysis, no wheezing. Breast: No complaints. Heart: No chest pain, pressure or tightness. No racing heartbeat. Abdominal: No pain or difficulty with swallowing, no N/V, no early satiety, no abdominal pain or bloating, no diarrhea or constipation, no change in bowel habits, no blood in the urine. Genitourinary: No pain or burning with urination, no incontinence, no blood in the urine. Extremities: no pain or swelling. Neurological: No headaches, no numbness or tingling in the extremities, no double vision. Skin: No rashes or ulcerations, no change in pigmentation. Nodes: no enlargement per patient. Heme: No easy bruising or bleeding, no yellowing of the eyes or darkening of urine. Psychiatric: no anxiety or depression. Immunologic: No recurrent or persistent infections of the sinuses, lungs or urinary tract. Endocrine: No hair or nail changes, no polyuria, polydipsia, or polyphagia. Appetite normal. I have performed the physical exam on November 16, 2022 - all new findings noted below. Physical Exam: BP 152/76 Pulse 72 Ht 5' 10 (1.78m) Wt 210 lb (95.3kg) SpO2 96% BMI 30.13 kg/(m^2). ECOG PS: 0 Pain Intensity: 0/10 General: Age-appropriate well developed. Appears well. HEENT: Normocephalic, no sclera icterus, external ears normal, oral cavity clear. Neck: Supple, no thyroid nodules, no JVD. Chest: Clear bilaterally, no wheezes, not labored. Heart: Normal S1 and S2, no abnormal sounds, peripheral pulses synchronized. Abdomen: Soft, nontender, nondistended, bowel sounds present, no organomegaly or mass, no rigidity. /Rectal: deferred Extremities: No cyanosis, clubbing, gross deformities, or palpable cords. Neurological: Cranial nerves II through XII are intact bilaterally, strength normal in the upper and lower extremities, no focal deficits. Skin: Warm and dry with no rashes or ulcerations. Nodes: No palpable adenopathy in the cervical, supraclavicular, infraclavicular, or axillary regions. Hematologic: no bruising or petechiae. Psychiatric: Alert and oriented x3. Emotional well-being assessment was performed. Pt denies depression, distress, and or problems with coping or adjustment. Labs CBC: Recent Labs 11/13/22 1246 WBC 5.14 HB 8.3* HCT 25.8* PLT 130* MCV 114.7* RDWCV 22.9* NEUTP 52.3 ABSNEUT 2.69 LYMPHP 39.7 MONOP 6.6 COAG: No results for input(s): APTT, INR in the last 168 hours. BMP: No results for input(s): GLUC, NA, K, CHLOR, CO2, ANION, BUN, CREAT in the last 168 hours. CHEM: No results for input(s): ALB, TPROT, CA, MG in the last 168 hours. FERRITIN BLD Lab Results Component Value Date MURRAY 869.8 (H) 05/22/2022 IRON Lab Results Component Value Date FE 128 05/22/2022 TIBC Lab Results Component Value Date TIBC 05/22/2022 Comment: Unable to assay. Specimen significantly hemolyzed. FOLATE Lab Results Component Value Date FOLATE >20.0 05/23/2022 Lab Results Component Value Date RETICP 1.8 07/03/2022 ABSRETIC 0.037 07/03/2022 MURRAY 869.8 (H) 05/22/2022 FE 128 05/22/2022 TIBC 05/22/2022 Comment: Unable to assay. Specimen significantly hemolyzed. TRANSFERSAT 05/22/2022 Comment: Unable to assay. Specimen significantly hemolyzed. Radiology: Pathology: BM biopsy 06/01/22: Variably cellular marrow with trilineage hematopoiesis and mild erythroid and megakaryocyte atypia. - Storage iron present and focally increased. The marrow is variably cellular and at least focally appears mildly increased although the biopsy is small and fragmented and suboptimal. Mild atypia is seen in the erythroids, and occasional small megakaryocytes are present. Although an early myeloid neoplasm is in the differential, this degree of atypia may be seen due to other causes including nutritional deficiencies such as vitamin B12, folate or copper, toxic exposures, autoimmune/rheumatologic etiologies, infectious etiologies, and other neoplasms. The finding of vacuolated immature erythroids in the aspirate raises the possibility of copper deficiency. Correlation with copper levels may be useful if clinically indicated. Mast cells appear increased, predominantly morphologically unremarkable. The myeloid NGS demonstrates a variant of potential clinical significance in the PPM1D gene, which raises the possibility of a clonal cytopenia of undetermined significance, although this variant is rarely germline. 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 Related to BM d/o. - recommend pt have a BM biopsy and can schedule this outpt. - recommend that he have a follow up CBC next week in office. 2) Fatigue - likely due to anemia. Reviewed with pt. Allergic meds for the itching Hold off on procrit/aranesp for now unless he starts needing more transfusions. 1 mo f/up Change labs to eow if he feels ok The patient and their family were able to ask questions and all were answered to their satisfaction. Parts of the HPI, ROS, exam and impression/plan may have been copied from my personal previous clinical note and remain pertinent. Current changes have been made and documented today. Other parts or data were deleted if not relevant for today. The documentation has been reviewed and edited as necessary to support the clinical decision making for today's visit. Alka Noriega MD documented in this encounter [facility] 10-31-2022 History of Presen t illness Narrative Pt admitted to infusion room for transfusion of 1 unit PRBC's. Pt at his side. PIV started per protocol without incident. Unit up as ordered, pt educated to notify RN of any discomfort including SOB, Chest pain, chills, back pain or itching. Will continue to reassess and monitor pt needs. 1530 pt infusion complete, PIV discontinued without incident. Pt was educated to call MD office or go to ER if he had any post transfusion symptoms for reaction or didn't feel well. Ambulated out of infusion room with without incident. documented in this encounter [facility] 10-30-2022 Miscellaneous Notes Blood order received. Verified with blood bank They need a Red Adult order like what was placed on September 11 in order for the Blood Bank to see it [facility] MA Orders are in [facility]. Rafat Noriega, Following up with you for blood transfusion orders for this patient for [facility]. He came in today and got a CBC and type and screen at [facility]. Blood bank is awaiting orders and we can transfuse him tomorrow. Akosua Burch documented in this encounter [facility] 10-11-2022 History of Presen t illness Narrative Joss Grace Sandip 1945 October 11, 2022 Cancer Staging No matching staging information was found for the patient. HPI: Mr. Oropeza is a 77 year old male who presented to ER on 05/22/22 for anemia. This is a 76 year old male who presented with for low hgb from primary care office. Patient states he was 6.7 at PCP office and 6.0 at [facility]. PMHx of chronic anemia (baseline 9-11), diabetes, hepatic steatosis, CVA on ASA. He reports worsening shortness of breath over the last 1 year associated with weakness and fatigue. He denies any chest pain. He denies any overt GI bleeding, no blood or darker stool, no weight loss, no abdominal pain, no issues swallowing, and no issues with constipation or diarrhea. Reports several colonoscopies in the past with Dr. Hernandez in [place], last done July 2021 that had one polyp removed. Remote EGD. He does endorse some heartburn and reflux occasionally. He denies any NSAID use besides ASA 81 mg, no blood thinners, no smoking, and only rare alcohol use. Hgb this morning 7.2 from 5.9 s/p 1 unit of blood. Platelets low 114, and MCV elevated. Kidney function normal. Iron studies showing normal iron, ferritin elevated, folate and b12 normal. CT a/p showed no acute findings in abdomen and pelvis. VSS. GI consulted for anemia. Today I was asked to see him for macrocytic anemia prior to d/c. He was SOB on admission and now feels better. He received 1 unit PRBC on 05/22 and another on 05/23/22. He is very active on his tractor at home. He is a non smoker. Does not drink alcohol. No family hx of bone marrow issues. Denies any bleeding. Interval history: Today he is here for follow up. With family today. Noticed that ever since he had a transfusion in April, he is very itchy. He then creates a large red spot on the area that he scratches. No longer SOB and has plenty of energy. 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 PAST SURGICAL HISTORY Procedure Laterality Date ADENOIDECTOMY PRIMARY <AGE 10 Adenoidectomy COLONOSCOPY FLX DX W/COLLJ SPEC WHEN PFRMD Colonoscopy COLONOSCOPY FLX DX W/COLLJ SPEC WHEN PFRMD Colonoscopy LAPAROSCOPY SURG CHOLECYSTECTOMY Cholecystectomy, lap PAST SURGICAL HISTORY OF 1122-12 BACK SURGERY PAST SURGICAL HISTORY OF SKIN LESION--PRE CANCER SKULL PAST SURGICAL HISTORY OF SKIN LESION--SKIN CANCER LEFT HAND PICC LINE MRSA INFECTION RT/LT HEART CATHETERS CC & CA, R & L heart, NEGATIVE TONSILLECTOMY PRIMARY/SECONDARY <AGE 10 Tonsillectomy Current Outpatient Medications Medication Sig Dispense Refill JANUMET 50-1,000 mg per tablet sitagliptin phos/metformin HCl (JANUMET ORAL) Take 100 mg by mouth. glimepiride (AMARYL) 1 mg tablet Take 1 tablet by mouth daily with dinner. metFORMIN ER (GLUCOPHAGE XR) 750 mg 24 hr tablet Take 1 tablet by mouth twice daily. MEN'S MULTI-VITAMIN ORAL Take 1 tablet by mouth. cyanocobalamin (VITAMIN B-12) 1,000 mcg tab Take 1,000 mcg by mouth once daily. tamsulosin (FLOMAX) 0.4 mg Take 0.4 mg by mouth once daily. finasteride (PROSCAR) 5 mg tablet Take 5 mg by mouth once daily. alendronate (FOSAMAX) 70 mg tablet Take 70 mg by mouth one time a week. In AM with cup of water on empty stomach. Nothing else by mouth and stay upright for 30 min. aspirin, enteric coated (ASPIR-LOW) 81 mg EC tablet Take 1 tablet by mouth once daily. [address] (PROTONIX) 40 mg tablet Take 1 tablet by mouth DAILY (6 AM). 30 tablet 0 rosuvastatin (CRESTOR) 10 mg tablet Take 1 tablet by mouth daily at bedtime. 90 tablet 3 No current facility-administered medications for this visit. ALLERGIES Allergen Reactions Maxipime [Cefepime] Unknown [id number] Red* Other: See Comments, Unknown Leg pain FAMILY HISTORY Problem Relation Age of Onset Stroke Mother Ischemic Heart Disease Father Social History Tobacco Use Smoking status: Never Smokeless tobacco: Never Vaping Use Vaping Use: Never used Substance Use Topics Alcohol use: Yes Comment: social/rare Drug use: No I have reviewed the PMHx, PSHx, social history and ROS on October 11, 2022 - all new information noted. Review of Systems: Constitutional: No fevers, chills, drenching night sweats or unintentional weight loss. HEENT: No yellowing of the eyes, no vision changes, no hearing loss or ear pain, no nosebleeds or drainage, no sore throat. Neck: No complaints. Chest: No SOB or cough, no [place], no hemoptysis, no wheezing. Breast: No complaints. Heart: No chest pain, pressure or tightness. No racing heartbeat. Abdominal: No pain or difficulty with swallowing, no N/V, no early satiety, no abdominal pain or bloating, no diarrhea or constipation, no change in bowel habits, no blood in the urine. Genitourinary: No pain or burning with urination, no incontinence, no blood in the urine. Extremities: no pain or swelling. Neurological: No headaches, no numbness or tingling in the extremities, no double vision. Skin: No rashes or ulcerations, no change in pigmentation. Nodes: no enlargement per patient. Heme: No easy bruising or bleeding, no yellowing of the eyes or darkening of urine. Psychiatric: no anxiety or depression. Immunologic: No recurrent or persistent infections of the sinuses, lungs or urinary tract. Endocrine: No hair or nail changes, no polyuria, polydipsia, or polyphagia. Appetite normal. I have performed the physical exam on October 11, 2022 - all new findings noted below. Physical Exam: BP 158/73[right arm[ Pulse 72 Temp 98.1 Ht 5' 9.5 (1.77m) Wt 210 lb (95.3kg) SpO2 98% BMI 30.58 kg/(m^2). ECOG PS: 0 Pain Intensity: 0/10 General: Age-appropriate well developed. Appears well. HEENT: Normocephalic, no sclera icterus, external ears normal, oral cavity clear. Neck: Supple, no thyroid nodules, no JVD. Chest: Clear bilaterally, no wheezes, not labored. Heart: Normal S1 and S2, no abnormal sounds, peripheral pulses synchronized. Abdomen: Soft, nontender, nondistended, bowel sounds present, no organomegaly or mass, no rigidity. /Rectal: deferred Extremities: No cyanosis, clubbing, gross deformities, or palpable cords. Neurological: Cranial nerves II through XII are intact bilaterally, strength normal in the upper and lower extremities, no focal deficits. Skin: Warm and dry with no rashes or ulcerations. Itchy Nodes: No palpable adenopathy in the cervical, supraclavicular, infraclavicular, or axillary regions. Hematologic: no bruising or petechiae. Psychiatric: Alert and oriented x3. Emotional well-being assessment was performed. Pt denies depression, distress, and or problems with coping or adjustment. Labs CBC: Recent Labs 10/11/22 1400 WBC 5.37 HB 8.0* HCT 24.6* PLT 129* MCV 115.5* RDWCV 21.2* NEUTP 49.5 ABSNEUT 2.66 LYMPHP 41.5 MONOP 7.8 COAG: No results for input(s): APTT, INR in the last 168 hours. BMP: No results for input(s): GLUC, NA, K, CHLOR, CO2, ANION, BUN, CREAT in the last 168 hours. CHEM: No results for input(s): ALB, TPROT, CA, MG in the last 168 hours. FERRITIN BLD Lab Results Component Value Date MURRAY 869.8 (H) 05/22/2022 IRON Lab Results Component Value Date FE 128 05/22/2022 TIBC Lab Results Component Value Date TIBC 05/22/2022 Comment: Unable to assay. Specimen significantly hemolyzed. FOLATE Lab Results Component Value Date FOLATE >20.0 05/23/2022 Lab Results Component Value Date RETICP 1.8 07/03/2022 ABSRETIC 0.037 07/03/2022 MURRAY 869.8 (H) 05/22/2022 FE 128 05/22/2022 TIBC 05/22/2022 Comment: Unable to assay. Specimen significantly hemolyzed. TRANSFERSAT 05/22/2022 Comment: Unable to assay. Specimen significantly hemolyzed. Radiology: Pathology: BM biopsy 06/01/22: Variably cellular marrow with trilineage hematopoiesis and mild erythroid and megakaryocyte atypia. - Storage iron present and focally increased. The marrow is variably cellular and at least focally appears mildly increased although the biopsy is small and fragmented and suboptimal. Mild atypia is seen in the erythroids, and occasional small megakaryocytes are present. Although an early myeloid neoplasm is in the differential, this degree of atypia may be seen due to other causes including nutritional deficiencies such as vitamin B12, folate or copper, toxic exposures, autoimmune/rheumatologic etiologies, infectious etiologies, and other neoplasms. The finding of vacuolated immature erythroids in the aspirate raises the possibility of copper deficiency. Correlation with copper levels may be useful if clinically indicated. Mast cells appear increased, predominantly morphologically unremarkable. The myeloid NGS demonstrates a variant of potential clinical significance in the PPM1D gene, which raises the possibility of a clonal cytopenia of undetermined significance, although this variant is rarely germline. 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 Related to BM d/o. - recommend pt have a BM biopsy and can schedule this outpt. - see above. 3) Fatigue - likely due to anemia. Try Allergic meds for the itching Hold off on procrit/aranesp for now unless he starts needing more transfusions. I will see him back in 1-2 months. The patient was able to ask questions and all were answered to his satisfaction. Parts of the HPI, ROS, exam and impression/plan may have been copied from my personal previous clinical note and remain pertinent. Current changes have been made and documented today. Other parts or data were deleted if not relevant for today. The documentation has been reviewed and edited as necessary to support the clinical decision making for today's visit. Alka Noriega MD documented in this encounter [facility] 09-11-2022 Instructions Owen Ac APRN.CNP - 09/11/2022 2:25 PM EDT Go to [place] weekly for blood draws documented in this encounter [facility] 09-11-2022 History of Presen t illness Narrative Joss Oropeza 1945 September 11, 2022 Cancer Staging No matching staging information was found for the patient. HPI: Mr. Oropeza is a 77 year old male who presented to ER on 05/22/22 for anemia. This is a 76 year old male who presented with for low hgb from primary care office. Patient states he was 6.7 at PCP office and 6.0 at [facility]. PMHx of chronic anemia (baseline 9-11), diabetes, hepatic steatosis, CVA on ASA. He reports worsening shortness of breath over the last 1 year associated with weakness and fatigue. He denies any chest pain. He denies any overt GI bleeding, no blood or darker stool, no weight loss, no abdominal pain, no issues swallowing, and no issues with constipation or diarrhea. Reports several colonoscopies in the past with Dr. Hernandez in [place], last done July 2021 that had one polyp removed. Remote EGD. He does endorse some heartburn and reflux occasionally. He denies any NSAID use besides ASA 81 mg, no blood thinners, no smoking, and only rare alcohol use. Hgb this morning 7.2 from 5.9 s/p 1 unit of blood. Platelets low 114, and MCV elevated. Kidney function normal. Iron studies showing normal iron, ferritin elevated, folate and b12 normal. CT a/p showed no acute findings in abdomen and pelvis. VSS. GI consulted for anemia. Today I was asked to see him for macrocytic anemia prior to d/c. He was SOB on admission and now feels better. He received 1 unit PRBC on 05/22 and another on 05/23/22. He is very active on his tractor at home. He is a non smoker. Does not drink alcohol. No family hx of bone marrow issues. Denies any bleeding. Interval history: He comes in today for CBC check and possible transfusion. He had his blood drawn yesterday and is already set up for transfusion in [place] tomorrow for HGB 5.9. He feels fine. He has some slight SOB on exertion but has still been active at home. He lives close to [facility] and would prefer to get his transfusions there. ACTIVE PROBLEM LIST Diastasis Recti Stroke (Cerebrum) (Hcc) Pneumonia Weakness Anemia Diabetes (Hcc) Dyslipidemia Obesity, Class I, Bmi 30-34.9 PAST SURGICAL HISTORY Procedure Laterality Date ADENOIDECTOMY PRIMARY <AGE 10 Adenoidectomy COLONOSCOPY FLX DX W/COLLJ SPEC WHEN PFRMD Colonoscopy COLONOSCOPY FLX DX W/COLLJ SPEC WHEN PFRMD Colonoscopy LAPAROSCOPY SURG CHOLECYSTECTOMY Cholecystectomy, lap PAST SURGICAL HISTORY OF 01-17-12 BACK SURGERY PAST SURGICAL HISTORY OF SKIN LESION--PRE CANCER SKULL PAST SURGICAL HISTORY OF SKIN LESION--SKIN CANCER LEFT HAND PICC LINE MRSA INFECTION RT/LT HEART CATHETERS CC & CA, R & L heart, NEGATIVE TONSILLECTOMY PRIMARY/SECONDARY <AGE 10 Tonsillectomy Social History Tobacco Use Smoking status: Never Smokeless tobacco: Never Vaping Use Vaping Use: Never used Substance Use Topics Alcohol use: Yes Comment: social/rare Drug use: No Review of Systems Constitutional: Negative. HENT: Negative. Respiratory: Negative. Cardiovascular: Negative. Gastrointestinal: Negative. Genitourinary: Negative. Musculoskeletal: Negative. Skin: Negative. Neurological: Negative. Hematological: Negative. Psychiatric/Behavioral: Negative. Current Outpatient Medications Medication Sig Dispense Refill sitagliptin phos/metformin HCl (JANUMET ORAL) Take 100 mg by mouth. SITagliptin (JANUVIA) 100 mg tablet Take 1 tablet by mouth twice daily. glimepiride (AMARYL) 1 mg tablet Take 1 tablet by mouth daily with dinner. metFORMIN ER (GLUCOPHAGE XR) 750 mg 24 hr tablet Take 1 tablet by mouth twice daily. MEN'S MULTI-VITAMIN ORAL Take 1 tablet by mouth. cyanocobalamin (VITAMIN B-12) 1,000 mcg tab Take 1,000 mcg by mouth once daily. tamsulosin (FLOMAX) 0.4 mg Take 0.4 mg by mouth once daily. finasteride (PROSCAR) 5 mg tablet Take 5 mg by mouth once daily. alendronate (FOSAMAX) 70 mg tablet Take 70 mg by mouth one time a week. In AM with cup of water on empty stomach. Nothing else by mouth and stay upright for 30 min. aspirin, enteric coated (ASPIR-LOW) 81 mg EC tablet Take 1 tablet by mouth once daily. [address] (PROTONIX) 40 mg tablet Take 1 tablet by mouth DAILY (6 AM). 30 tablet 0 rosuvastatin (CRESTOR) 10 mg tablet Take 1 tablet by mouth daily at bedtime. 90 tablet 3 No current facility-administered medications for this visit. ALLERGIES Allergen Reactions Maxipime [Cefepime] Unknown Qdlhxcj-Jic-Usn Red* Other: See Comments, Unknown Leg pain Hemoglobin (g/dL) Date Value 09/10/2022 6.6 HGB (g/dL) Date Value 09/01/2016 11.8 Hematocrit (%) Date Value 09/10/2022 20.8 09/01/2016 35.8 WBC Date Value 09/10/2022 3.73 k/uL 09/01/2016 6.11 thou/cmm Platelet Count Date Value 09/10/2022 114 k/uL 09/01/2016 174 thou/cmm BP 130/65 Pulse 70 Ht 176.5 cm (5' 9.5) Wt 95.3 kg (210 lb) SpO2 99% BMI 30.57 kg/m Last 3 Encounter BP Readings: Date: BP: 09/11/2022 130/65[left arm[ 07/03/2022 137/63[rt arm[ 05/30/2022 125/60 Physical Exam Vitals and nursing note reviewed. Constitutional: General: He is not in acute distress. Appearance: Normal appearance. He is not ill-appearing. HENT: Head: Normocephalic and atraumatic. Cardiovascular: Rate and Rhythm: Normal rate and regular rhythm. Pulses: Normal pulses. Heart sounds: Normal heart sounds. Pulmonary: Effort: Pulmonary effort is normal. Breath sounds: Normal breath sounds. Abdominal: General: Bowel sounds are normal. There is no distension. Palpations: Abdomen is soft. There is no mass. Tenderness: There is no abdominal tenderness. Musculoskeletal: General: No swelling. Normal range of motion. Cervical back: Normal range of motion and neck supple. Lymphadenopathy: Cervical: No cervical adenopathy. Skin: General: Skin is warm and dry. Coloration: Skin is not jaundiced or pale. Neurological: General: No focal deficit present. Mental Status: He is alert and oriented to person, place, and time. Cranial Nerves: No cranial nerve deficit. Psychiatric: Mood and Affect: Mood normal. Behavior: Behavior normal. Thought Content: Thought content normal. Radiology: Pathology: BM biopsy 06/01/22: Variably cellular marrow with trilineage hematopoiesis and mild erythroid and megakaryocyte atypia. - Storage iron present and focally increased. The marrow is variably cellular and at least focally appears mildly increased although the biopsy is small and fragmented and suboptimal. Mild atypia is seen in the erythroids, and occasional small megakaryocytes are present. Although an early myeloid neoplasm is in the differential, this degree of atypia may be seen due to other causes including nutritional deficiencies such as vitamin B12, folate or copper, toxic exposures, autoimmune/rheumatologic etiologies, infectious etiologies, and other neoplasms. The finding of vacuolated immature erythroids in the aspirate raises the possibility of copper deficiency. Correlation with copper levels may be useful if clinically indicated. Mast cells appear increased, predominantly morphologically unremarkable. The myeloid NGS demonstrates a variant of potential clinical significance in the PPM1D gene, which raises the possibility of a clonal cytopenia of undetermined significance, although this variant is rarely germline. 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 Related to BM d/o. 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 Mr. Oropeza is a 77 year old male who presented to ER on 05/22/22 for anemia. This is a 76 year old male who presented with for low hgb from primary care office. Patient states he was 6.7 at PCP office and 6.0 at [facility]. PMHx of chronic anemia (baseline 9-11), diabetes, hepatic steatosis, CVA on ASA. He reports worsening shortness of breath over the last 1 year associated with weakness and fatigue. He denies any chest pain. He denies any overt GI bleeding, no blood or darker stool, no weight loss, no abdominal pain, no issues swallowing, and no issues with constipation or diarrhea. Reports several colonoscopies in the past with Dr. Hernandez in [place], last done July 2021 that had one polyp removed. Remote EGD. He does endorse some heartburn and reflux occasionally. He denies any NSAID use besides ASA 81 mg, no blood thinners, no smoking, and only rare alcohol use. Hgb this morning 7.2 from 5.9 s/p 1 unit of blood. Platelets low 114, and MCV elevated. Kidney function normal. Iron studies showing normal iron, ferritin elevated, folate and b12 normal. CT a/p showed no acute findings in abdomen and pelvis. VSS. GI consulted for anemia. I was asked to see him for macrocytic anemia prior to d/c. He was SOB on admission and now feels better. He received 1 unit PRBC on 05/22 and another on 05/23/22. He is very active on his tractor at home. He is a non smoker. Does not drink alcohol. No family hx of bone marrow issues. Denies any bleeding. Interval history: Today he is here to review his results. With family today. Noticed that ever since he had a transfusion in April, he is very itchy. He then creates a large red spot on the area that he scratches. No longer SOB and has plenty of energy. 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 PAST SURGICAL HISTORY Procedure Laterality Date ADENOIDECTOMY PRIMARY <AGE 10 Adenoidectomy COLONOSCOPY FLX DX W/COLLJ SPEC WHEN PFRMD Colonoscopy COLONOSCOPY FLX DX W/COLLJ SPEC WHEN PFRMD Colonoscopy LAPAROSCOPY SURG CHOLECYSTECTOMY Cholecystectomy, lap PAST SURGICAL HISTORY OF 01-17-12 BACK SURGERY PAST SURGICAL HISTORY OF SKIN LESION--PRE CANCER SKULL PAST SURGICAL HISTORY OF SKIN LESION--SKIN CANCER LEFT HAND PICC LINE MRSA INFECTION RT/LT HEART CATHETERS CC & CA, R & L heart, NEGATIVE TONSILLECTOMY PRIMARY/SECONDARY <AGE 10 Tonsillectomy Current Outpatient Medications Medication Sig Dispense Refill sitagliptin phos/metformin HCl (JANUMET ORAL) Take 100 mg by mouth. pantoprazole DR (PROTONIX) 40 mg tablet Take 1 tablet by mouth DAILY (6 AM). 30 tablet 0 SITagliptin (JANUVIA) 100 mg tablet Take 1 tablet by mouth twice daily. glimepiride (AMARYL) 1 mg tablet Take 1 tablet by mouth daily with dinner. metFORMIN ER (GLUCOPHAGE XR) 750 mg 24 hr tablet Take 1 tablet by mouth twice daily. rosuvastatin (CRESTOR) 10 mg tablet Take 1 tablet by mouth daily at bedtime. 90 tablet 3 MEN'S MULTI-VITAMIN ORAL Take 1 tablet by mouth. cyanocobalamin (VITAMIN B-12) 1,000 mcg tab Take 1,000 mcg by mouth once daily. tamsulosin (FLOMAX) 0.4 mg Take 0.4 mg by mouth once daily. finasteride (PROSCAR) 5 mg tablet Take 5 mg by mouth once daily. alendronate (FOSAMAX) 70 mg tablet Take 70 mg by mouth one time a week. In AM with cup of water on empty stomach. Nothing else by mouth and stay upright for 30 min. aspirin, enteric coated (ASPIR-LOW) 81 mg EC tablet Take 1 tablet by mouth once daily. 0 No current facility-administered medications for this visit. ALLERGIES Allergen Reactions Maxipime [Cefepime] Unknown Zxrizal-Bmp-Ozv Red* Other: See Comments, Unknown Leg pain FAMILY HISTORY Problem Relation Age of Onset Stroke Mother Ischemic Heart Disease Father Social History Tobacco Use Smoking status: Never Smokeless tobacco: Never Vaping Use Vaping Use: Never used Substance Use Topics Alcohol use: Yes Comment: social/rare Drug use: No Review of Systems: Constitutional: No fevers, chills, drenching night sweats or unintentional weight loss. Some fatigue. HEENT: No yellowing of the eyes, no vision changes, no hearing loss or ear pain, no nosebleeds or drainage, no sore throat. Neck: No complaints. Chest: No SOB or cough, no [place], no hemoptysis, no wheezing. Breast: No complaints. Heart: No chest pain, pressure or tightness. No racing heartbeat. Abdominal: No pain or difficulty with swallowing, no N/V, no early satiety, no abdominal pain or bloating, no diarrhea or constipation, no change in bowel habits, no blood in the urine. Genitourinary: No pain or burning with urination, no incontinence, no blood in the urine. Extremities: no pain or swelling. Neurological: No headaches, no numbness or tingling in the extremities, no double vision. Skin: No rashes or ulcerations, no change in pigmentation. Nodes: no enlargement per patient. Heme: No easy bruising or bleeding, no yellowing of the eyes or darkening of urine. Psychiatric: no anxiety or depression. Immunologic: No recurrent or persistent infections of the sinuses, lungs or urinary tract. Endocrine: No hair or nail changes, no polyuria, polydipsia, or polyphagia. Appetite normal. Physical Exam: BP [rt arm[ Ht 5' 9.5 (1.77m) Wt 213 lb (96.6kg) BMI 31.01 kg/(m^2). ECOG PS: 1 Pain Intensity: 0/10 General: Age-appropriate well developed. Appears well. Fatigue. HEENT: Normocephalic, no sclera icterus, external ears normal, oral cavity clear. Neck: Supple, no thyroid nodules, no JVD. Chest: Clear bilaterally, no wheezes, not labored. Heart: Normal S1 and S2, no abnormal sounds, peripheral pulses synchronized. Abdomen: Soft, nontender, nondistended, bowel sounds present, no organomegaly or mass, no rigidity. /Rectal: deferred Extremities: No cyanosis, clubbing, gross deformities, or palpable cords. Neurological: Cranial nerves II through XII are intact bilaterally, strength normal in the upper and lower extremities, no focal deficits. Skin: Warm and dry with no rashes or ulcerations. Nodes: No palpable adenopathy in the cervical, supraclavicular, infraclavicular, or axillary regions. Hematologic: no bruising or petechiae. Psychiatric: Alert and oriented x3. Emotional well-being assessment was performed. Pt denies depression, distress, and or problems with coping or adjustment. Labs CBC:No results for input(s): WBC, HB, HCT, PLT, MCV, RDWCV, NEUTP, ABSNEUT, LYMPHP, MONOP, EODINP in the last 168 hours. COAG: No results for input(s): APTT, INR in the last 168 hours. BMP: No results for input(s): GLUC, NA, K, CHLOR, CO2, ANION, BUN, CREAT in the last 168 hours. CHEM: No results for input(s): ALB, TPROT, CA, MG in the last 168 hours. Appointment on 07/03/2022 Component Date Value WBC 07/03/2022 5.41 RBC 07/03/2022 2.04 (L) Hemoglobin 07/03/2022 7.6 (L) Hematocrit 07/03/2022 23.3 (L) MCV 07/03/2022 114.2 (H) MCH 07/03/2022 37.3 (H) MCHC 07/03/2022 32.6 RDW-CV 07/03/2022 20.1 (H) Platelet Count 07/03/2022 116 (L) MPV 07/03/2022 11.2 Neutrophils % 07/03/2022 68.4 Abs Neut 07/03/2022 3.70 Lymphocytes % 07/03/2022 26.6 Abs Lymph 07/03/2022 1.44 Monocytes % 07/03/2022 3.9 Abs Donley 07/03/2022 0.21 Eosinophils % 07/03/2022 0.2 Abs Eosin 07/03/2022 <0.03 Basophils % 07/03/2022 0.0 Abs Baso 07/03/2022 <0.03 Immature Granulocytes % 07/03/2022 0.9 Abs Immature Gran 07/03/2022 0.05 NRBC 07/03/2022 0.0 Absolute nRBC 07/03/2022 <0.01 Diff Type 07/03/2022 Auto Protein, Total 07/03/2022 6.8 Albumin 07/03/2022 4.1 Calcium, Total 07/03/2022 9.5 Bilirubin, Total 07/03/2022 0.2 Alkaline Phosphatase 07/03/2022 54 AST 07/03/2022 18 ALT 07/03/2022 13 Glucose 07/03/2022 232 (H) BUN 07/03/2022 15 Creatinine 07/03/2022 0.87 Sodium 07/03/2022 137 Potassium 07/03/2022 4.5 Chloride 07/03/2022 102 CO2 07/03/2022 22 Anion Gap 07/03/2022 13 Estimated Glomerular Jim* 07/03/2022 88 Erythropoietin 07/03/2022 879.9 (H) Retic % 07/03/2022 1.8 Abs Retic 07/03/2022 0.037 Admission on 06/01/2022, Discharged on 06/01/2022 Component Date Value WBC 06/01/2022 4.37 RBC 06/01/2022 2.27 (L) Hemoglobin 06/01/2022 8.1 (L) Hematocrit 06/01/2022 24.8 (L) MCV 06/01/2022 109.3 (H) MCH 06/01/2022 35.7 (H) MCHC 06/01/2022 32.7 RDW-CV 06/01/2022 21.1 (H) Platelet Count 06/01/2022 134 (L) MPV 06/01/2022 10.9 Absolute nRBC 06/01/2022 <0.01 PT Sec 06/01/2022 11.2 INR 06/01/2022 1.0 Flow Cytometry Order Sta* 06/01/2022 See Results in chart under F case ID DNA Extraction Bone Almas* 06/01/2022 Value:This specimen was received and successfully processed for future DNA purification should molecular testing be needed. Specimens will be available for 3 years from date of collection. To order testing on this specimen for [facility] patients, please place an [employer] order for DNA and RNA Clinical Testing ([id number]). To order testing for patients outside of the [facility] system, please request DNA and RNA for Clinical Testing, order code [id number]. If additional paperwork is required for testing, please send completed forms via secure email to [email or web address]. 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 Twenty cells analyzed showed a 46,XY,inv(9)(p12q13) karyotype, or had random chromosomal loss and gain or single cell (non-clonal) structural rearrangements, attributed to culture artifact. The pericentric inversion of chromosome 9 is a benign, constitutional variant with no clinical significance. There was no significant numerical chromosome abnormality and no structural change detected within the limits of resolution. Clinical and pathologic correlation is recommended. As reviewed by Philip De Oliveira, PhD, FACMG Performed by [facility] [place] Division of Molecular Pathology Cytogenetics Lab, [facility] [id number] [facility] [place] [address] Toll free: Case Report 06/01/2022 Value:Bone Marrow Pathology Report Case: [id number] Authorizing Provider: Alka Noriega MD Collected: 06/01/2022 10:34 AM Ordering Location: [facility] Hematology/Oncology Received: 06/01/2022 11:23 AM Pathologist: Carla Storm MD Specimens: A) - BONE MARROW ASPIRATE LEFT POSTERIOR ILIAC CREST B) - BONE MARROW BIOPSY LEFT POSTERIOR ILIAC CREST C) - BONE MARROW CLOT LEFT POSTERIOR ILIAC CREST FINAL DIAGNOSIS 06/01/2022 Value:This result contains rich text formatting which cannot be displayed here. Diagnosis Comment 06/01/2022 Value:This result contains rich text formatting which cannot be displayed here. Microscopic Description 06/01/2022 Value:This result contains rich text formatting which cannot be displayed here. Clinical History 06/01/2022 Value:This result contains rich text formatting which cannot be displayed here. Gross Description 06/01/2022 Value:This result contains rich text formatting which cannot be displayed here. Performing Lab 06/01/2022 Value:This result contains rich text formatting which cannot be displayed here. Neutrophils % 06/01/2022 68.1 Abs Neut 06/01/2022 2.95 Lymphocytes % 06/01/2022 24.9 Abs Lymph 06/01/2022 1.08 Monocytes % 06/01/2022 5.8 Abs Donley 06/01/2022 0.25 Eosinophils % 06/01/2022 0.5 Abs Eosin 06/01/2022 <0.03 Basophils % 06/01/2022 0.2 Abs Baso 06/01/2022 <0.03 Immature Granulocytes % 06/01/2022 0.5 Abs Immature Gran 06/01/2022 <0.03 Interpretation 06/01/2022 Value:This result contains rich text formatting which cannot be displayed here. Results 06/01/2022 Value:This result contains rich text formatting which cannot be displayed here. Gross Description 06/01/2022 Value:This result contains rich text formatting which cannot be displayed here. Diagnosis Comment 06/01/2022 Value:This result contains rich text formatting which cannot be displayed here. Case Report 06/01/2022 Value:Flow Cytometry Case: [id number] Authorizing Provider: Alka Noriega MD Collected: 06/01/2022 10:34 AM Ordering Location: [facility] Received: 06/01/2022 04:06 PM INTERVENTIONAL RADIOLOGY Pathologist: Malachi Solorzano MD Specimen: Bone Marrow Performing Lab 06/01/2022 Value:This result contains rich text formatting which cannot be displayed here. MYELOID NGS PANEL BONE M* 06/01/2022 Myeloid NGS Panel Bone Marrow Laboratory Accession Number: [id number] Result: Please see linked document and/or separate report for full result when available. As reviewed by Tracy Curtis MD FLT3 ITD HN PANEL BONE M* 06/01/2022 Value:FLT3 Internal Tandem Duplication (ITD) Mutation Testing Laboratory Accession Number: [id number] FLT3 Internal Tandem Duplication (ITD) mutation: Not Detected Comment: FLT3/ITD is found in approx. 20-30% of adult patients and in approx. 5-12% of infants and children with acute myeloid leukemia (AML). FLT3/ITD are most often associated with a normal karyotype, t(15;17), and t(6;9). FLT3/ITD is associated with leukocytosis and a poor prognosis in both children and adults. In cytogenetically normal AML, FLT3/ITD has been associated with a poor prognosis. FLT3 mutation status has been reported to change between diagnosis and relapse; this may relate to the instability of FLT3 mutations. Methodology: DNA is isolated from the specimen provided. Regions of the FLT3 tyrosine kinase receptor gene are subjected to the polymerase chain reaction (PCR) using fluorescently labeled forward PCR primers. PCR products are analyzed by capillary gel electrophoresis for in-frame length mutations (ITD mutations). This assay can detect ITD mutant alleles which represent approx. 5-10% of the total alleles. The ITD ratio is calculated as the area under the curve of the ITD signal to the area under the curve of the wild type signal. Limitations: Due to the diversity of potential ITD mutations, standardized calibration material is not available and calculated ITD peak ratios may therefore not be directly comparable across laboratories. As PCR efficiency varies with the size of the insertion mutation, calculated peak ratios may not necessarily correlate with percentage of mutant alleles. ITD ratio information should be interpreted with caution, in conjunction with other cytogenetic and molecular findings to assess prognosis within myeloid neoplasms. References: 1) Luis MP, Ml P, Mani Hartman, et al. Mutational landscape of AML with normal cytogenetics: biological and clinical implications. Blood Rev.2013;27:13-22. 2) Mingo MISSAEL, Lanre M, Mo ME, et al. Prognostic relevance of integrated genetic profiling in acute myeloid leukemia. N Engl J Med. 2011May 16;366 (12):1079-89. 3) Dochhayaer H, Blair E, Jessenia Lai, et al. Diagnosis and mangement of AML in adults: 2017 ELN recommendations from an international expert panel. Blood [phone] (2017). Disclaimer: This test was developed and its performance characteristics determined by [facility] [place] ([facility]). It has not been cleared or approved by the FDA. [facility] is regulated under CLIA as certified to perform high- complexity testing. This test is used for clinical purposes. It should not be regarded as investigational or for research. Testing and interpretation performed at [facility], [address] [place] [address]. CLIA Number: [id number] As reviewed by Philip De Oliveira, PhD, [facility] PATH[facility]* 06/01/2022 [id number] DNA,RNA EXTRACTION REQUI* 06/01/2022 DNA ORIGINAL SPECIMEN 06/01/2022 Bone marrow TOTAL YIELD 06/01/2022 38.934 EXTRACTION METHOD 06/01/2022 Qiagen Supremex Puregene Manual ORIGINAL SPECIMEN COLLE* 06/01/2022 06-01-22 Admission on 05/22/2022, Discharged on 05/26/2022 Component Date Value WBC 05/22/2022 5.97 RBC 05/22/2022 1.56 (L) Hemoglobin 05/22/2022 5.9 (LL) Hematocrit 05/22/2022 18.4 (L) MCV 05/22/2022 117.9 (H) MCH 05/22/2022 37.8 (H) MCHC 05/22/2022 32.1 RDW-CV 05/22/2022 20.0 (H) Platelet Count 05/22/2022 114 (L) MPV 05/22/2022 11.4 Absolute nRBC 05/22/2022 <0.01 ABO 05/22/2022 B Rh(D) 05/22/2022 Positive Antibody Screen 05/22/2022 Negative Type and Screen Expirati* 05/22/2022 05/25/2022 23:59 HIstorical Ab Scr Status 05/22/2022 NEGATIVE Iron 05/22/2022 128 TIBC 05/22/2022 Transferrin Saturation 05/22/2022 Ferritin 05/22/2022 869.8 (H) Hemoglobin 05/23/2022 7.2 (L) Hemoglobin 05/23/2022 6.9 (L) Hematocrit 05/23/2022 21.5 (L) Hematocrit 05/23/2022 21.2 (L) XM RESULT 05/22/2022 Compatible Expiration Date 05/22/202288030831755082 Product Expiration Date 05/22/2022 06/20/2022 23:59 ISBT Blood Type 05/22/2022 5100 Unit Blood Type 05/22/2022 O Pos Unit Number 05/22/2022 [id number] Status Information 05/22/2022 Issued Final Product Identification 05/22/2022 Red Blood Cells Product Code 05/22/2022 [id number] Issue Date/Time 05/22/2022 [id number] ABO 05/23/2022 B Rh(D) 05/23/2022 Positive Glucose, Point of Care 05/23/2022 167 (A) Folate 05/23/2022 >20.0 Vitamin B12 05/23/2022 388 Glucose, Point of Care 05/23/2022 251 (A) Glucose, Point of Care 05/23/2022 164 (A) Hemoglobin 05/23/2022 7.0 (L) Glucose, Point of Care 05/23/2022 205 (A) Glucose, Point of Care 05/23/2022 209 (A) Hemoglobin 05/24/2022 7.4 (L) Hemoglobin 05/24/2022 8.0 (L) Hematocrit 05/24/2022 23.1 (L) Hematocrit 05/24/2022 24.5 (L) Glucose 05/24/2022 161 (H) BUN 05/24/2022 17 Creatinine 05/24/2022 0.86 Sodium 05/24/2022 138 Potassium 05/24/2022 3.9 Chloride 05/24/2022 105 CO2 05/24/2022 20 (L) Anion Gap 05/24/2022 13 Calcium, Total 05/24/2022 8.6 Estimated Glomerular Jim* 05/24/2022 89 XM RESULT 05/23/2022 Compatible Expiration Date 05/23/[id number] Product Expiration Date 05/23/2022 06/22/2022 23:59 ISBT Blood Type 05/23/2022 7300 Unit Blood Type 05/23/2022 B Pos Unit Number 05/23/2022 [id number] Status Information 05/23/2022 Issued Final Product Identification 05/23/2022 Red Blood Cells Product Code 05/23/2022 [id number] Issue Date/Time 05/23/202205673808937429 Glucose, Point of Care 05/24/2022 175 (A) Glucose, Point of Care 05/24/2022 176 (A) Glucose, Point of Care 05/24/2022 195 (A) Glucose, Point of Care 05/24/2022 160 (A) Glucose, Point of Care 05/24/2022 150 (A) Hematocrit 05/25/2022 23.7 (L) Hemoglobin 05/25/2022 7.8 (L) Glucose, Point of Care 05/25/2022 175 (A) Glucose, Point of Care 05/25/2022 173 (A) Case Report 05/25/2022 Value:Surgical Pathology Report Case: [id number] Authorizing Provider: Henrik Brown, Collected: 05/25/2022 02:34 PM Ordering Location: [facility] Received: 05/28/2022 08:54 AM Pathologist: Syed Phan MD Specimen: RECTAL POLYP FINAL DIAGNOSIS 05/25/2022 Value:This result contains rich text formatting which cannot be displayed here. Gross Description 05/25/2022 Value:This result contains rich text formatting which cannot be displayed here. Performing Lab 05/25/2022 Value:This result contains rich text formatting which cannot be displayed here. WBC 05/25/2022 6.22 RBC 05/25/2022 2.35 (L) Hemoglobin 05/25/2022 8.5 (L) Hematocrit 05/25/2022 26.1 (L) MCV 05/25/2022 111.1 (H) MCH 05/25/2022 36.2 (H) MCHC 05/25/2022 32.6 RDW-CV 05/25/2022 22.1 (H) Platelet Count 05/25/2022 110 (L) MPV 05/25/2022 11.3 Absolute nRBC 05/25/2022 <0.01 Glucose, Point of Care 05/25/2022 163 (A) Glucose, Point of Care 05/25/2022 250 (A) WBC 05/26/2022 5.34 RBC 05/26/2022 2.27 (L) Hemoglobin 05/26/2022 8.1 (L) Hematocrit 05/26/2022 24.6 (L) MCV 05/26/2022 108.4 (H) MCH 05/26/2022 35.7 (H) MCHC 05/26/2022 32.9 RDW-CV 05/26/2022 22.0 (H) Platelet Count 05/26/2022 113 (L) MPV 05/26/2022 11.4 Absolute nRBC 05/26/2022 <0.01 Glucose, Point of Care 05/26/2022 171 (A) Glucose, Point of Care 05/26/2022 267 (A) Admission on 05/22/2022, Discharged on 05/22/2022 Component Date Value Ventricular Rate 05/22/2022 79 Atrial Rate 05/22/2022 79 P-R Interval 05/22/2022 176 QRS Duration 05/22/2022 86 QT Interval 05/22/2022 398 QTC Calculation (Bazett) 05/22/2022 456 Calculated P [place] 05/22/2022 59 Calculated R [place] 05/22/2022 64 Calculated T [place] 05/22/2022 49 Glucose 05/22/2022 134 (H) BUN 05/22/2022 23 Creatinine 05/22/2022 0.95 Sodium 05/22/2022 135 (L) Potassium 05/22/2022 4.2 Chloride 05/22/2022 102 CO2 05/22/2022 23 Anion Gap 05/22/2022 10 Calcium, Total 05/22/2022 9.1 Estimated Glomerular Jim* 05/22/2022 82 Magnesium 05/22/2022 1.9 Lipase 05/22/2022 50 Albumin 05/22/2022 4.1 Bilirubin, Total 05/22/2022 0.3 Bilirubin, Conjugated 05/22/2022 <0.2 Alkaline Phosphatase 05/22/2022 43 AST 05/22/2022 17 ALT 05/22/2022 13 Protein, Total 05/22/2022 6.7 WBC 05/22/2022 5.09 RBC 05/22/2022 1.60 (L) Hemoglobin 05/22/2022 6.0 (L) Hematocrit 05/22/2022 19.0 (L) MCV 05/22/2022 118.8 (H) MCH 05/22/2022 37.5 (H) MCHC 05/22/2022 31.6 RDW-CV 05/22/2022 19.7 (H) Platelet Count 05/22/2022 114 (L) MPV 05/22/2022 11.7 Neutrophils % 05/22/2022 65.8 Abs Neut 05/22/2022 3.35 Lymphocytes % 05/22/2022 28.3 Abs Lymph 05/22/2022 1.44 Monocytes % 05/22/2022 5.1 Abs [place] 05/22/2022 0.26 Eosinophils % 05/22/2022 0.2 Abs Eosin 05/22/2022 <0.03 Basophils % 05/22/2022 0.2 Abs Baso 05/22/2022 <0.03 Immature Granulocytes % 05/22/2022 0.4 Abs Immature Gran 05/22/2022 <0.03 Diff Type 05/22/2022 Auto PT Sec 05/22/2022 11.3 INR 05/22/2022 1.2 NT Pro BNP 05/22/2022 370 Occult Blood, Stool 05/22/2022 Positive (A) Ventricular Rate 05/22/2022 79 Atrial Rate 05/22/2022 79 P-R Interval 05/22/2022 176 QRS Duration 05/22/2022 86 QT Interval 05/22/2022 398 QTC Calculation (Bazett) 05/22/2022 456 Calculated P [place] 05/22/2022 59 Calculated R [place] 05/22/2022 64 Calculated T [place] 05/22/2022 49 FERRITIN BLD Lab Results Component Value Date MURRAY 869.8 (H) 05/22/2022 IRON Lab Results Component Value Date FE 128 05/22/2022 TIBC Lab Results Component Value Date TIBC 05/22/2022 Comment: Unable to assay. Specimen significantly hemolyzed. FOLATE Lab Results Component Value Date FOLATE >20.0 05/23/2022 Lab Results Component Value Date MURRAY 869.8 (H) 05/22/2022 FE 128 05/22/2022 TIBC 05/22/2022 Comment: Unable to assay. Specimen significantly hemolyzed. TRANSFERSAT 05/22/2022 Comment: Unable to assay. Specimen significantly hemolyzed. Lab Results Component Value Date RETICP 1.8 07/03/2022 ABSRETIC 0.037 07/03/2022 MURRAY 869.8 (H) 05/22/2022 FE 128 05/22/2022 TIBC 05/22/2022 Comment: Unable to assay. Specimen significantly hemolyzed. TRANSFERSAT 05/22/2022 Comment: Unable to assay. Specimen significantly hemolyzed. Radiology: Pathology: BM biopsy 06/01/22: Variably cellular marrow with trilineage hematopoiesis and mild erythroid and megakaryocyte atypia. - Storage iron present and focally increased. The marrow is variably cellular and at least focally appears mildly increased although the biopsy is small and fragmented and suboptimal. Mild atypia is seen in the erythroids, and occasional small megakaryocytes are present. Although an early myeloid neoplasm is in the differential, this degree of atypia may be seen due to other causes including nutritional deficiencies such as vitamin B12, folate or copper, toxic exposures, autoimmune/rheumatologic etiologies, infectious etiologies, and other neoplasms. The finding of vacuolated immature erythroids in the aspirate raises the possibility of copper deficiency. Correlation with copper levels may be useful if clinically indicated. Mast cells appear increased, predominantly morphologically unremarkable. The myeloid NGS demonstrates a variant of potential clinical significance in the PPM1D gene, which raises the possibility of a clonal cytopenia of undetermined significance, although this variant is rarely germline. 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 - plan to transfuse to keep his Hb > 7. - if this worsens, may need to try Luspatercept. None needed at this time. 2) Fatigue - likely due to anemia. - better now. 3) Skin allergies - not sure if due to transfusion vs other medications. - recommended Allergic meds for the itching and Topical stuff if needed - use gold grimes lotion to help. I reviewed the above diagnosis with him and his today in detail. Would recheck labs today. Pt agreeable. I would like to see him back in 2 months for follow up. Sooner if he feels worse or more fatigued sooner. The patient and his family were able to ask questions and all were answered to their satisfaction. Parts of the HPI, ROS, exam and impression/plan may have been copied from my personal previous clinical note and remain pertinent. Current changes have been made and documented today. Other parts or data were deleted if not relevant for today. The documentation has been reviewed and edited as necessary to support the clinical decision making for today's visit. Alka Noriega MD documented in this encounter [facility] 06-01-2022 Surgical operatio n note INTERVENTIONAL RADIOLOGY POST PROCEDURE NOTE DATE: 06/01/22 NAME: Joss Oropeza LOG ID: [id number] Pre-Procedure Diagnosis: anemia Post Procedure Diagnosis: Same. Supervisory Civil Engineer: Dr. Teddy Terrazas (Primary) Procedure: Biopsy Anesthesia: Moderate sedation Findings: CT guided bone marrow biopsy right iliac bone. Estimated Blood Loss: Minimal (Less Than 25 mL). 0 ml Specimen: hematology . Complications: None. Full report with procedural details to follow and will become available under Imaging Reports. Please contact for any questions or concerns. documented in this encounter [facility] 06-01-2022 History and physical note INTERVENTIONAL RADIOLOGY PRE-PROCEDURE INTERVAL HISTORY AND PHYSICAL EXAM UPDATE Date: 06/01/22 Name: Joss Grace Sandip The History and Physical (completed in the past 30 days) has been reviewed and the patient has been examined. The contents accurately reflect the patient's condition with the following additions or revisions since the H&P was completed. Examination indicates no changes. This H&P can be found in the Electronic Medical Record dated 06/01/22. Source Note - Alice Navarro APRN.ECHOCARDIOLOGIST - 05/22/2022 10:41 PM EDT DEPARTMENT OF HOSPITAL MEDICINE HISTORY AND PHYSICAL EXAM SERVICE DATE: 05/22/2022 SERVICE TIME: 10:41 PM Primary Care Physician: German Robertson MD NIGHT & WEEKEND COVERAGE: From 7am - 7pm, please call Sound attending After 7pm, please call cross cover pager #[phone] Subjective CHIEF COMPLAINT: Abnormal labs HPI: This is a 76 year old male with a PMH of type 2 DM, HLD, BPH, CVA that presented to the ED for abnormal labs. Pt reports he had a routine visit with his PCP today for annual exam. He had lab work done which resulted with a hgb of 6.7. Pt was instructed to present to the ED for further work up. Pt reports he has noticed SOB over the past few months. He becomes SOB with activity. Denies fever, chills, CP, palpitations, dizziness, cough, abdominal pain, nausea, vomiting, dysuria. Last Hgb/Hct 9.3/28.7 (05/2021). Pt denies hematuria, hematemesis, hematochezia. No dark stools. Pt has had colonoscopy in the past few years. Found to have 1 polyp. Pt takes baby aspirin otherwise no anticoagulation. No frequent use of NSAIDS. 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 PAST SURGICAL HISTORY Procedure Laterality Date ADENOIDECTOMY PRIMARY <AGE 12 Adenoidectomy COLONOSCOPY FLX DX W/COLLJ SPEC WHEN PFRMD Colonoscopy COLONOSCOPY FLX DX W/COLLJ SPEC WHEN PFRMD Colonoscopy LAPAROSCOPY SURG CHOLECYSTECTOMY Cholecystectomy, lap PAST SURGICAL HISTORY OF 11-22-12 BACK SURGERY PAST SURGICAL HISTORY OF SKIN LESION--PRE CANCER SKULL PAST SURGICAL HISTORY OF SKIN LESION--SKIN CANCER LEFT HAND PICC LINE MRSA INFECTION RT/LT HEART CATHETERS CC & CA, R & L heart, NEGATIVE TONSILLECTOMY PRIMARY/SECONDARY <AGE 10 Tonsillectomy FAMILY HISTORY Problem Relation Age of Onset Stroke Mother Ischemic Heart Disease Father Social History Tobacco Use Smoking status: Never Smokeless tobacco: Never Vaping Use Vaping Use: Never used Substance Use Topics Alcohol use: Yes Comment: social/rare Drug use: No HOME MEDICATIONS: glimepiride (AMARYL) 1 mg tablet, Take 1 tablet by mouth daily with dinner., Disp: , Rfl: , 05/21/2022 metFORMIN ER (GLUCOPHAGE XR) 750 mg 24 hr tablet, Take 1 tablet by mouth twice daily., Disp: , Rfl: , 05/21/2022 rosuvastatin (CRESTOR) 10 mg tablet, Take 1 tablet by mouth daily at bedtime., Disp: 90 tablet, Rfl: 3, 05/21/2022 MEN'S MULTI-VITAMIN ORAL, Take 1 tablet by mouth., Disp: , Rfl: , 05/21/2022 cyanocobalamin (VITAMIN B-12) 1,000 mcg tab, Take 1,000 mcg by mouth once daily., Disp: , Rfl: , 05/21/2022 tamsulosin (FLOMAX) 0.4 mg, Take 0.4 mg by mouth once daily., Disp: , Rfl: , 05/21/2022 finasteride (PROSCAR) 5 mg tablet, Take 5 mg by mouth once daily., Disp: , Rfl: , 05/21/2022 alendronate (FOSAMAX) 70 mg tablet, Take 70 mg by mouth one time a week. In AM with cup of water on empty stomach. Nothing else by mouth and stay upright for 30 min., Disp: , Rfl: , 05/21/2022 aspirin, enteric coated (ASPIR-LOW) 81 mg EC tablet, Take 1 tablet by mouth once daily., Disp: , Rfl: 0, 05/21/2022 SITagliptin (JANUVIA) 100 mg tablet, Take 1 tablet by mouth twice daily., Disp: , Rfl: , Unknown sildenafil citrate (VIAGRA ORAL), Take 1 tablet by mouth as needed. , Disp: , Rfl: , Unknown ALLERGIES Allergen Reactions Maxipime [Cefepime] Unknown [id number] Red* Other: See Comments, Unknown Leg pain REVIEW OF SYSTEM: PAIN ASSESSMENT: Negative for pain, history of chronic pain, or current treatment for a chronic pain condition. GENERAL: No weight loss, malaise or fevers HEENT: Negative for frequent or significant headaches, No changes in hearing or vision, no nose bleeds or other nasal problems NECK: Negative for lumps, goiter, pain and significant neck swelling RESPIRATORY: Negative for cough, hemoptysis, wheezing, COPD, + SOB CARDIOVASCULAR: Negative for chest pain, leg swelling, hypertension, CHF or palpitations GI: No nausea, vomiting, or diarrhea : No history of dysuria, frequency or incontinence MUSCULOSKELETAL: Negative for joint pain or swelling, back pain or muscle pain SKIN: Negative for lesions, rash, and itching ENDOCRINE: Negative for cold or heat intolerance, polyuria, polydipsia and goiter NEURO: No history of headaches, syncope, paralysis, seizures or tremors Objective PHYSICAL EXAM: BP 154/70 Pulse 71 Temp (Src) 97.7 (Axillary) Resp 16 Ht 5' 9.5 (1.77m) Wt 213 lb 3 oz (96.7kg) BMI 31.04 kg/(m^2). GENERAL: Well appearing, alert, in no acute distress, well-hydrated, well nourished. SKIN: Skin color, texture, turgor normal, no suspicious rashes or lesions HEAD: Normocephalic, atraumatic EYES: Anicteric sclera. Pupils are equally round and reactive to light. Extraocular movements are intact. EARS: External ears normal, canals clear NOSE/SINUSES: Nares normal, septum midline, mucosa normal, no drainage or sinus tenderness OROPHARYNX: Lips, mucosa, and tongue normal, teeth and gums normal, oropharynx normal NECK: Supple, no adenopathy; thyroid symmetric, normal size, no bruits LUNGS: Clear to auscultation with no wheezes, rales or rhonchi. No retractions. HEART: RRR without murmur, gallop, or rubs. No ectopy ABDOMEN: Normal abdominal exam, Abdomen soft, non-tender. Bowel sounds normal. No masses, organomegaly EXTREMITIES: No deformities, edema, skin discoloration, clubbing or cyanosis. Good capillary refill. MUSCULOSKELETAL: No joint swelling, deformity, or tenderness PULSES: Normal NEURO: A&O x 3, RODRIGUEZ x 4, Sensation grossly intact. DATA: Diagnostic tests reviewed for today's visit: Most recent labs and imaging results. 05/22/2022 5:31 PM - Radiology, Oru In Impression IMPRESSION: No acute findings in the abdomen or pelvis. No significant change since the comparison study. Diverticulosis. 2 mm nonobstructing right kidney stone. Enlarged prostate. Fat containing anterior abdominal hernia. Backhaul Driver: PSCLázaro Transcribe Date/Time: May 22 2022 5:23P Dictated by : KARRI CHRISTIAN MD This examination was interpreted and the report reviewed and electronically signed by: KARRI CHRISTIAN MD on May 22 2022 5:29PM EST CBC: Recent Labs 05/22/22 1610 WBC 5.09 RBC 1.60* HB 6.0* HCT 19.0* PLT 114* MCV 118.8* MCH 37.5* MPV 11.7 Coags: Recent Labs 05/22/22 1610 INR 1.2 BMP: Recent Labs 05/22/22 1610 NA 135* K 4.2 CHLOR 102 CO2 23 BUN 23 CREAT 0.95 GLUC 134* CMP: Recent Labs 05/22/22 1610 NA 135* K 4.2 CHLOR 102 CO2 23 BUN 23 CREAT 0.95 GLUC 134* TPROT 6.7 CA 9.1 MG 1.9 TBILI 0.3 ALKPHOS 43 ALT 13 AST 17 ANION 10 Cardiac Enzymes: No results for input(s): CK, MB, CKMB, TROPT in the last 24 hours. Liver Function, Amylase, Lipase: Recent Labs 05/22/22 1610 TPROT 6.7 ALB 4.1 ALT 13 AST 17 ALKPHOS 43 TBILI 0.3 LIPASE 50 MG/PHOS: Recent Labs 05/22/22 1610 MG 1.9 Renal Panel: Recent Labs 05/22/22 1610 CREAT 0.95 BUN 23 GLUC 134* CA 9.1 CHLOR 102 K 4.2 CO2 23 NA 135* Heme: No results for input(s): RETICP, ABSRETIC, LD, MURRAY, FE, TIBC, TRANSFERSAT in the last 24 hours. Assessment/Plan Principal Problem: Symptomatic anemia Assessment & Plan: - admit patient to hospital - H/H 6.0/19.0, most recent comparison 9.3/28.7 (05/2021) - type and screen, consent obtained and placed on chart. - transfuse 1 unit PRBC - monitor H/H every 8 hours, transfuse for Hgb < 7 - protonix - check iron, TIBC, ferritin - GI consult - hold asa Active Problems: 2. Diabetes Assessment & Plan: - Accucheck AC/HS - SSI with meals - carb controlled diet - hypoglycemia protocol 3. HLD Assessment & Plan: - continue rosuvastatin 10 mg daily 4. BPH Assessment/plan: - continue flomax 0.4 mg BID Resolved Problems: * No resolved hospital problems. * VTE Prophylaxis: Patient is already anti-coagulated. Disposition: Home when medically cleared Plan of care discussed with: Patient SIGNATURE: Alice Navarro APRN.CNP PATIENT NAME: Joss Oropeza DATE: May 22, 2022 TIME: 10:41 PM PAGER/CONTACT #: [phone] documented in this encounter [facility] Evaluation note Diagnosis Onset Date Encounter for screening colonoscopy acute [facility] Work Phone: evaluation note* Diagnosis Onset Date Resolution Status Obesity acute Diabetes chronic HTN (hypertension) chronic [facility] Work Phone: Evaluation note* Diagnosis An[facility], unspecified type [facility], [facility] type- [facility] Anemia, unspecified type- [facility] Anemia, unspecified type Anemia, unspecified type- Primary [facility], unspecified type- [facility] An[facility], unspecified type- Primary Cancer of unknown origin (HCC) Other malignant neoplasm without specification of site [facility] Cancer of unknown origin (HCC)- Primary Other malignant neoplasm without specification of site [facility] Anemia, unspecified type- Primary Cancer of unknown origin (HCC) Other malignant neoplasm without specification of site [facility] Anemia, unspecified type- Primary Cancer of unknown origin (HCC) Other malignant neoplasm without specification of site documented in this encounter [facility] note* Diagnosis Cancer of unknown origin (HCC)- Primary Other malignant neoplasm without specification of site documented in this encounter [facility] note* Diagnosis TIA (transient ischemic attack)- Primary Unspecified transient cerebral ischemia documented in this encounter [facility] note* Diagnosis Anemia, unspecified type- Primary 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) Thrombocytopenia, unspecified documented in this encounter [facility] note* Diagnosis Cancer of unknown origin (HCC)- Primary Other malignant neoplasm without specification of site Anemia, unspecified type documented in this encounter [facility] note* Diagnosis Cancer of unknown origin (HCC)- Primary Other malignant neoplasm without specification of site Myelodysplastic syndrome, unspecified (HCC) Myelodysplastic syndrome, unspecified Anemia, unspecified type documented in this encounter [facility] note* Diagnosis Cancer of unknown origin (HCC)- Primary Other malignant neoplasm without specification of site Anemia, unspecified type Clonal cytopenia of undetermined significance (CCUS) documented in this encounter [facility] note* Diagnosis Anemia, unspecified type- Primary Clonal cytopenia of undetermined significance (CCUS) documented in this encounter [facility] note* Diagnosis Anemia, unspecified type- Primary Clonal cytopenia of undetermined significance (CCUS) documented in this encounter [facility] note* Diagnosis Myelodysplastic syndrome, unspecified (HCC)- Primary Myelodysplastic syndrome, unspecified Anemia, unspecified type documented in this encounter [facility] note* Diagnosis Myelodysplastic syndrome, unspecified (HCC)- Primary Myelodysplastic syndrome, unspecified Platelets decreased (HCC) Thrombocytopenia, unspecified Anemia, unspecified type documented in this encounter [facility] note* Diagnosis Myelodysplastic syndrome, unspecified (HCC)- Primary Myelodysplastic syndrome, unspecified Anemia, unspecified type Platelets decreased (HCC) Thrombocytopenia, unspecified documented in this encounter [facility] note* Diagnosis Cancer of unknown origin (HCC)- Primary Other malignant neoplasm without specification of site Myelodysplastic syndrome, unspecified (HCC) Myelodysplastic syndrome, unspecified Anemia, unspecified type documented in this encounter [facility] note* Diagnosis Myelodysplastic syndrome, unspecified (HCC)- Primary Myelodysplastic syndrome, unspecified documented in this encounter [facility] note* Diagnosis Cancer of unknown origin (HCC)- Primary Other malignant neoplasm without specification of site Myelodysplastic syndrome, unspecified (HCC) Myelodysplastic syndrome, unspecified Anemia, unspecified type TIA (transient ischemic attack)- Primary Unspecified transient cerebral ischemia documented in this encounter [facility] note* Diagnosis Myelodysplastic syndrome, unspecified (HCC)- Primary Myelodysplastic syndrome, unspecified TIA (transient ischemic attack)- Primary Unspecified transient cerebral ischemia documented in this encounter [facility] note* Diagnosis Anemia, unspecified type- Primary Myelodysplastic syndrome, unspecified (HCC) Myelodysplastic syndrome, unspecified TIA (transient ischemic attack)- Primary Unspecified transient cerebral ischemia documented in this encounter [facility] note* Diagnosis TIA (transient ischemic attack)- Primary Unspecified transient cerebral ischemia [place] Other second degree atrioventricular block SVT (supraventricular tachycardia) (HCC) Other specified cardiac dysrhythmias documented in this encounter [facility] note* Diagnosis Cancer of unknown origin (HCC)- Primary Other malignant neoplasm without specification of site Myelodysplastic syndrome, unspecified (HCC) Myelodysplastic syndrome, unspecified documented in this encounter [facility] note* Diagnosis Cancer of unknown origin (HCC)- Primary Other malignant neoplasm without specification of site Myelodysplastic syndrome, unspecified (HCC) Myelodysplastic syndrome, unspecified Clonal cytopenia of undetermined significance (CCUS) documented in this encounter [facility] note* Diagnosis Myelodysplastic syndrome, unspecified (HCC)- Primary Myelodysplastic syndrome, unspecified Clonal cytopenia of undetermined significance (CCUS) documented in this encounter [facility] note* Diagnosis Anemia, unspecified type- Primary documented in this encounter [facility] note* Diagnosis Cancer of unknown origin (HCC)- Primary Other malignant neoplasm without specification of site Myelodysplastic syndrome, unspecified (HCC) Myelodysplastic syndrome, unspecified Clonal cytopenia of undetermined significance (CCUS) documented in this encounter [facility] note* Diagnosis Anemia, unspecified type- Primary Myelodysplastic syndrome, unspecified (HCC) Myelodysplastic syndrome, unspecified documented in this encounter [facility] note* Diagnosis Cancer of unknown origin (HCC)- Primary Other malignant neoplasm without specification of site Myelodysplastic syndrome, unspecified (HCC) Myelodysplastic syndrome, unspecified documented in this encounter [facility] note* Diagnosis Myelodysplastic syndrome, unspecified (HCC)- Primary Myelodysplastic syndrome, unspecified documented in this encounter [facility] note* Diagnosis Myelodysplastic syndrome, unspecified (HCC)- Primary Myelodysplastic syndrome, unspecified documented in this encounter [facility] note* Diagnosis Myelodysplastic syndrome, unspecified (HCC)- Primary Myelodysplastic syndrome, unspecified Cancer of unknown origin (HCC) Other malignant neoplasm without specification of site documented in this encounter [facility] note* Diagnosis Myelodysplastic syndrome, unspecified (HCC)- Primary Myelodysplastic syndrome, unspecified Clonal cytopenia of undetermined significance (CCUS) Anemia, unspecified type Platelets decreased (HCC) Thrombocytopenia, unspecified documented in this encounter [facility] note* Diagnosis Myelodysplastic syndrome, unspecified (HCC)- Primary Myelodysplastic syndrome, unspecified documented in this encounter [facility] note* Diagnosis Anemia, unspecified type- Primary Myelodysplastic syndrome, unspecified (HCC) Myelodysplastic syndrome, unspecified documented in this encounter [facility] note* Diagnosis Myelodysplastic syndrome, unspecified (HCC)- Primary Myelodysplastic syndrome, unspecified Clonal cytopenia of undetermined significance (CCUS) Anemia, unspecified type documented in this encounter [facility] note* Diagnosis Myelodysplastic syndrome, unspecified (HCC)- Primary Myelodysplastic syndrome, unspecified Anemia, unspecified type documented in this encounter [facility] note* Diagnosis Cancer of unknown origin (HCC)- Primary Other malignant neoplasm without specification of site Myelodysplastic syndrome, unspecified (HCC) Myelodysplastic syndrome, unspecified Anemia, unspecified type documented in this encounter [facility] note* Diagnosis Anemia, unspecified type- Primary Myelodysplastic syndrome, unspecified (HCC) Myelodysplastic syndrome, unspecified documented in this encounter [facility] note* Diagnosis Myelodysplastic syndrome, unspecified (HCC)- Primary Myelodysplastic syndrome, unspecified documented in this encounter [facility] note* Diagnosis Cancer of unknown origin (HCC)- Primary Other malignant neoplasm without specification of site Myelodysplastic syndrome, unspecified (HCC) Myelodysplastic syndrome, unspecified documented in this encounter [facility] note* Diagnosis Anemia, unspecified type- Primary Myelodysplastic syndrome, unspecified (HCC) Myelodysplastic syndrome, unspecified documented in this encounter [facility] note* Diagnosis Myelodysplastic syndrome, unspecified (HCC)- Primary Myelodysplastic syndrome, unspecified 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) Thrombocytopenia, unspecified Anemia, unspecified type documented in this encounter [facility] note* Diagnosis Myelodysplastic syndrome, unspecified (HCC)- Primary Myelodysplastic syndrome, unspecified 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) Thrombocytopenia, unspecified Anemia, unspecified type documented in this encounter [facility] note* Diagnosis Myelodysplastic syndrome, unspecified (HCC)- Primary Myelodysplastic syndrome, unspecified Anemia, unspecified type Cancer of unknown origin (HCC) Other malignant neoplasm without specification of site documented in this encounter [facility] note* Diagnosis Anemia, unspecified type- Primary Myelodysplastic syndrome, unspecified (HCC) Myelodysplastic syndrome, unspecified documented in this encounter [facility] note* Diagnosis Myelodysplastic syndrome, unspecified (HCC)- Primary Myelodysplastic syndrome, unspecified documented in this encounter [facility] note* Diagnosis Myelodysplastic syndrome, unspecified (HCC)- Primary Myelodysplastic syndrome, unspecified 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) Thrombocytopenia, unspecified Anemia, unspecified type documented in this encounter [facility] note* Diagnosis Anemia, unspecified type- Primary Myelodysplastic syndrome, unspecified (HCC) Myelodysplastic syndrome, unspecified Cancer of unknown origin (HCC) Other malignant neoplasm without specification of site documented in this encounter [facility] note* Diagnosis Myelodysplastic syndrome, unspecified (HCC)- Primary Myelodysplastic syndrome, unspecified Clonal cytopenia of undetermined significance (CCUS) documented in this encounter [facility] note* Diagnosis Cancer of unknown origin (HCC)- Primary Other malignant neoplasm without specification of site Myelodysplastic syndrome, unspecified (HCC) Myelodysplastic syndrome, unspecified Clonal cytopenia of undetermined significance (CCUS) Anemia, unspecified type documented in this encounter [facility] note* Diagnosis Anemia, unspecified type- Primary Myelodysplastic syndrome, unspecified (HCC) Myelodysplastic syndrome, unspecified documented in this encounter [facility] note* Diagnosis Myelodysplastic syndrome, unspecified (HCC) Myelodysplastic syndrome, unspecified Clonal cytopenia of undetermined significance (CCUS) documented in this encounter [facility] note* Diagnosis MDS (myelodysplastic syndrome) (HCC)- Primary Myelodysplastic syndrome, unspecified documented in this encounter [facility] note* Diagnosis MDS (myelodysplastic syndrome) (HCC)- Primary Myelodysplastic syndrome, unspecified documented in this encounter [facility] note* Diagnosis Anemia, unspecified type- Primary Myelodysplastic syndrome, unspecified (HCC) Myelodysplastic syndrome, unspecified documented in this encounter [facility] note* Diagnosis Myelodysplastic syndrome, unspecified (HCC)- Primary Myelodysplastic syndrome, unspecified Clonal cytopenia of undetermined significance (CCUS) Anemia, unspecified type documented in this encounter [facility] for visit Narrative* Outpatient Procedure (Routine) - Authorized Specialty Diagnoses / Procedures Referred By Jennifer t Referred To Contact 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 GAVINTELO AUTH EXP 02/24/25 KM Procedures TREATMENT 5 HOURS Alka Noriega MD [address] [id number] Ciaran Treat [place] [facility] [address] [place] [address] Referral ID Status Reason Start Date Expiration Date V isits Requested Visits Authorized [id number] Authorized 01/08/2024 02/24/2025 1 99 [facility] Summary Purpose Family History No Family History Records Found Relationship Condition Age at Onset Recorded Date/T james father Chronic obstructive pulmonary disease Unk nown mother Cardiac disease Unknown Congestive heart failure Unknown Relationship Condition Age at Onset Recorded Date/T james Not Specified Malignant neoplasm of skin Unknown Diabetes mellitus Unknown Alcohol abuse Unknown Arthritis Unknown Myocardial infarction Unknown Malignant neoplasm of breast Unknown Malignant neoplasm Unknown Venous thrombosis Unknown Disorder of thyroid Unknown Cerebrovascular accident (CVA) Unknown father Chronic obstructive pulmonary disease Unk nown mother Cardiac disease Unknown Congestive heart failure Unknown Advance Directives No Advanced Directives Records Found Date Activated Date Inactivated Comments 06/09/2024 5:58 PM 06/19/2024 9:20 PM Question Answer Comments Full Code Order Discussed With: Patient Date Activated Date Inactivated Comments 06/06/2024 11:21 AM 06/09/2024 5:41 PM Question Answer Comments Full Code Order Discussed With: Patient Date Activated Date Inactivated Comments 06/04/2024 1:08 PM 06/05/2024 5:17 PM Question Answer Comments Full Code Order Discussed With: Patient Date Activated Date Inactivated Comments 03/05/2024 5:46 PM 03/06/2024 6:00 PM Question Answer Comments Full Code Order Discussed With: Patient Date Activated Date Inactivated Comments 06/08/2023 11:10 PM 06/10/2023 9:11 PM Question Answer Comments Full Code Order Discussed With: Patient Date Activated Date Inactivated Comments 03/05/2024 5:46 PM 03/06/2024 6:00 PM Date Activated Date Inactivated Comments 06/08/2023 11:10 PM 06/10/2023 9:11 PM Advance Directive Response Recorded Date/ Time Name of Medical Power of Manager Of Clinical September 05, 2021 12:34pm Living Will Yes September 05, 2021 12:34pm Power of Manager Of Clinical Yes September 05 12:34pm Advance Directive Response Recorded Date/ Time Living Will Yes September 05, 2021 12:34pm Power of Manager Of Clinical Yes September 05 12:34pm Date Activated Date Inactivated Comments 06/08/2023 11:10 PM 06/10/2023 9:11 PM Date Activated Date Inactivated Comments 06/08/2023 11:10 PM 06/10/2023 9:11 PM Question Answer Comments Full Code Order Discussed With: Patient Chief Complaint and Reason for Visit Chief Complaint SCREENING COLONOSCOP Y Reason for Visit Encounter for screen ing colonoscopy Chief Complaint 3 M FU Reason for Visit Obesity Diabetes HTN (hypertension) Chief Complaint 3 M FU DYSPNEA ON EXERTION DYSPNEA ON EXERTION Reason for Visit Obesity Diabetes HTN (hypertension) Chief Complaint 3 M FU DYSPNEA ON EXERTION DYSPNEA ON EXERTION E ORDER 4 M FU Reason for Visit Obesity Diabetes HTN (hypertension) Medications Administered Section Inactive Administered Medications - up to 3 most recent administrations Medication Order MAR Action Action Date Dose Rate Site fentaNYL 50 mcg/mL injection (SUBLIMAZE) INTRAVENOUS, X (OR/PROCEDURE) PRN, Starting on Sat06/01/22 at 1025, Until 06/02/22 at 0303, Intraprocedure Given 06/01/2022 10:25 AM EDT 50 mcg lidocaine (PF) 10 mg/mL (1 %) injection (XYLOCAINE) SUBCUTANEOUS, X (OR/PROCEDURE) PRN, Starting on Sat06/01/22 at 1028, Until 06/02/22 at 0303, Intraprocedure Given 06/01/2022 10:28 AM EDT 10 mL Back, Left midazolam (PF) injection (VERSED) INTRAVENOUS, X (OR/PROCEDURE) PRN, Starting on Sat06/01/22 at 1025, Until 06/02/22 at 0303, Intraprocedure Given 06/01/2022 10:25 AM EDT 1 mg NaCl 0.9% iv infusion INTRAVENOUS, X (OR/PROCEDURE) CONTINUOUS, Starting on Sat06/01/22 at 1016, Until 06/02/22 at 0303, Intraprocedure New Bag/Syringe/Bottl e 06/01/2022 10:16 AM EDT 500 mL 50 mL/hr Reason for Referral Specialty Diagnoses / Procedures Referred By Contac t Referred To Contact Cardiology Diagnoses [place]kebach SVT (supraventricular tachycardia) (HCC) Procedures CONSULT TO CARDIOLOGY OFFICE/OUTPATIENT NEW HIGH MDM 60 MINUTES Rowena Parra, PADILLA.ECHOCARDIOLOGIST [address] [place] [address] Referral ID Status Reason Start Date Expiration Date Visits Requested Visits Authorized [id number] Authorized PCP Requested Referral 09/19/2023 09/18/2024 1 1 Additional Source Comments (unrecognized sect ion and content) No Status Records FoundNo Status Records FoundNo Status Records FoundNo Status Records FoundNo Status Records FoundNo Status Records FoundNo Status Records Found INFORMATION SOURCE (unrecogn ized section and content) DATE CREATED AUTHOR 08/15/2017 [facility] DATE CREATED AUTHOR AUTHOR'S ORGANIZ ATION 08/20/2017 [facility] DATE CREATED AUTHOR AUTHOR'S ORGANIZ ATION 06/20/2023 [facility] DATE CREATED AUTHOR AUTHOR'S ORGANIZ ATION 07/14/2024 [facility] DATE CREATED AUTHOR AUTHOR'S ORGANIZ ATION 07/22/2024 [facility] DATE CREATED AUTHOR AUTHOR'S ORGANIZ ATION 08/03/[address] [facility] DATE CREATED AUTHOR AUTHOR'S ORGANIZ ATION 08/08/2024 [facility] Source Comments (unrecognize d section and content) In the event this informatio n is protected by the Federal Confidentiality of Alcohol and Drug Abuse Patient Records regulations: The Federal rules restrict any use of the information to criminally investigate or prosecute any alcohol or drug abuse patient.[facility] HealthIn the event this information is protected by the Federal Confidentiality of Alcohol and Drug Abuse Patient Records regulations: The Federal rules restrict any use of the information to criminally investigate or prosecute any alcohol or drug abuse patient.[facility] HealthIn the event this information is protected by the Federal Confidentiality of Alcohol and Drug Abuse Patient Records regulations: The Federal rules restrict any use of the information to criminally investigate or prosecute any alcohol or drug abuse patient.[facility] HealthIn the event this information is protected by the Federal Confidentiality of Alcohol and Drug Abuse Patient Records regulations: The Federal rules restrict any use of the information to criminally investigate or prosecute any alcohol or drug abuse patient.[facility] HealthIn the event this information is protected by the Federal Confidentiality of Alcohol and Drug Abuse Patient Records regulations: The Federal rules restrict any use of the information to criminally investigate or prosecute any alcohol or drug abuse patient.[facility] HealthIn the event this information is protected by the Federal Confidentiality of Alcohol and Drug Abuse Patient Records regulations: The Federal rules restrict any use of the information to criminally investigate or prosecute any alcohol or drug abuse patient.[facility] HealthIn the event this information is protected by the Federal Confidentiality of Alcohol and Drug Abuse Patient Records regulations: The Federal rules restrict any use of the information to criminally investigate or prosecute any alcohol or drug abuse patient.[facility] HealthIn the event this information is protected by the Federal Confidentiality of Alcohol and Drug Abuse Patient Records regulations: The Federal rules restrict any use of the information to criminally investigate or prosecute any alcohol or drug abuse patient.[facility] HealthIn the event this information is protected by the Federal Confidentiality of Alcohol and Drug Abuse Patient Records regulations: The Federal rules restrict any use of the information to criminally investigate or prosecute any alcohol or drug abuse patient.[facility] HealthIn the event this information is protected by the Federal Confidentiality of Alcohol and Drug Abuse Patient Records regulations: The Federal rules restrict any use of the information to criminally investigate or prosecute any alcohol or drug abuse patient.[facility] HealthIn the event this information is protected by the Federal Confidentiality of Alcohol and Drug Abuse Patient Records regulations: The Federal rules restrict any use of the information to criminally investigate or prosecute any alcohol or drug abuse patient.[facility] HealthIn the event this information is protected by the Federal Confidentiality of Alcohol and Drug Abuse Patient Records regulations: The Federal rules restrict any use of the information to criminally investigate or prosecute any alcohol or drug abuse patient.[facility] HealthIn the event this information is protected by the Federal Confidentiality of Alcohol and Drug Abuse Patient Records regulations: The Federal rules restrict any use of the information to criminally investigate or prosecute any alcohol or drug abuse patient.[facility] HealthIn the event this information is protected by the Federal Confidentiality of Alcohol and Drug Abuse Patient Records regulations: The Federal rules restrict any use of the information to criminally investigate or prosecute any alcohol or drug abuse patient.[facility] HealthIn the event this information is protected by the Federal Confidentiality of Alcohol and Drug Abuse Patient Records regulations: The Federal rules restrict any use of the information to criminally investigate or prosecute any alcohol or drug abuse patient.[facility] HealthIn the event this information is protected by the Federal Confidentiality of Alcohol and Drug Abuse Patient Records regulations: The Federal rules restrict any use of the information to criminally investigate or prosecute any alcohol or drug abuse patient.[facility] HealthIn the event this information is protected by the Federal Confidentiality of Alcohol and Drug Abuse Patient Records regulations: The Federal rules restrict any use of the information to criminally investigate or prosecute any alcohol or drug abuse patient.[facility] HealthIn the event this information is protected by the Federal Confidentiality of Alcohol and Drug Abuse Patient Records regulations: The Federal rules restrict any use of the information to criminally investigate or prosecute any alcohol or drug abuse patient.[facility] HealthIn the event this information is protected by the Federal Confidentiality of Alcohol and Drug Abuse Patient Records regulations: The Federal rules restrict any use of the information to criminally investigate or prosecute any alcohol or drug abuse patient.[facility] HealthIn the event this information is protected by the Federal Confidentiality of Alcohol and Drug Abuse Patient Records regulations: The Federal rules restrict any use of the information to criminally investigate or prosecute any alcohol or drug abuse patient.[facility] HealthIn the event this information is protected by the Federal Confidentiality of Alcohol and Drug Abuse Patient Records regulations: The Federal rules restrict any use of the information to criminally investigate or prosecute any alcohol or drug abuse patient.[facility] HealthIn the event this information is protected by the Federal Confidentiality of Alcohol and Drug Abuse Patient Records regulations: The Federal rules restrict any use of the information to criminally investigate or prosecute any alcohol or drug abuse patient.[facility] HealthIn the event this information is protected by the Federal Confidentiality of Alcohol and Drug Abuse Patient Records regulations: The Federal rules restrict any use of the information to criminally investigate or prosecute any alcohol or drug abuse patient.[facility] HealthIn the event this information is protected by the Federal Confidentiality of Alcohol and Drug Abuse Patient Records regulations: The Federal rules restrict any use of the information to criminally investigate or prosecute any alcohol or drug abuse patient.[facility] HealthIn the event this information is protected by the Federal Confidentiality of Alcohol and Drug Abuse Patient Records regulations: The Federal rules restrict any use of the information to criminally investigate or prosecute any alcohol or drug abuse patient.[facility] HealthIn the event this information is protected by the Federal Confidentiality of Alcohol and Drug Abuse Patient Records regulations: The Federal rules restrict any use of the information to criminally investigate or prosecute any alcohol or drug abuse patient.[facility] HealthIn the event this information is protected by the Federal Confidentiality of Alcohol and Drug Abuse Patient Records regulations: The Federal rules restrict any use of the information to criminally investigate or prosecute any alcohol or drug abuse patient.[facility] HealthIn the event this information is protected by the Federal Confidentiality of Alcohol and Drug Abuse Patient Records regulations: The Federal rules restrict any use of the information to criminally investigate or prosecute any alcohol or drug abuse patient.[facility] HealthIn the event this information is protected by the Federal Confidentiality of Alcohol and Drug Abuse Patient Records regulations: The Federal rules restrict any use of the information to criminally investigate or prosecute any alcohol or drug abuse patient.[facility] HealthIn the event this information is protected by the Federal Confidentiality of Alcohol and Drug Abuse Patient Records regulations: The Federal rules restrict any use of the information to criminally investigate or prosecute any alcohol or drug abuse patient.[facility] HealthIn the event this information is protected by the Federal Confidentiality of Alcohol and Drug Abuse Patient Records regulations: The Federal rules restrict any use of the information to criminally investigate or prosecute any alcohol or drug abuse patient.[facility] HealthIn the event this information is protected by the Federal Confidentiality of Alcohol and Drug Abuse Patient Records regulations: The Federal rules restrict any use of the information to criminally investigate or prosecute any alcohol or drug abuse patient.[facility] HealthIn the event this information is protected by the Federal Confidentiality of Alcohol and Drug Abuse Patient Records regulations: The Federal rules restrict any use of the information to criminally investigate or prosecute any alcohol or drug abuse patient.[facility] HealthIn the event this information is protected by the Federal Confidentiality of Alcohol and Drug Abuse Patient Records regulations: The Federal rules restrict any use of the information to criminally investigate or prosecute any alcohol or drug abuse patient.[facility] HealthIn the event this information is protected by the Federal Confidentiality of Alcohol and Drug Abuse Patient Records regulations: The Federal rules restrict any use of the information to criminally investigate or prosecute any alcohol or drug abuse patient.[facility] HealthIn the event this information is protected by the Federal Confidentiality of Alcohol and Drug Abuse Patient Records regulations: The Federal rules restrict any use of the information to criminally investigate or prosecute any alcohol or drug abuse patient.[facility] HealthIn the event this information is protected by the Federal Confidentiality of Alcohol and Drug Abuse Patient Records regulations: The Federal rules restrict any use of the information to criminally investigate or prosecute any alcohol or drug abuse patient.[facility] HealthIn the event this information is protected by the Federal Confidentiality of Alcohol and Drug Abuse Patient Records regulations: The Federal rules restrict any use of the information to criminally investigate or prosecute any alcohol or drug abuse patient.[facility] HealthIn the event this information is protected by the Federal Confidentiality of Alcohol and Drug Abuse Patient Records regulations: The Federal rules restrict any use of the information to criminally investigate or prosecute any alcohol or drug abuse patient.[facility] HealthIn the event this information is protected by the Federal Confidentiality of Alcohol and Drug Abuse Patient Records regulations: The Federal rules restrict any use of the information to criminally investigate or prosecute any alcohol or drug abuse patient.[facility] HealthIn the event this information is protected by the Federal Confidentiality of Alcohol and Drug Abuse Patient Records regulations: The Federal rules restrict any use of the information to criminally investigate or prosecute any alcohol or drug abuse patient.[facility] HealthIn the event this information is protected by the Federal Confidentiality of Alcohol and Drug Abuse Patient Records regulations: The Federal rules restrict any use of the information to criminally investigate or prosecute any alcohol or drug abuse patient.[facility] HealthIn the event this information is protected by the Federal Confidentiality of Alcohol and Drug Abuse Patient Records regulations: The Federal rules restrict any use of the information to criminally investigate or prosecute any alcohol or drug abuse patient.[facility] HealthIn the event this information is protected by the Federal Confidentiality of Alcohol and Drug Abuse Patient Records regulations: The Federal rules restrict any use of the information to criminally investigate or prosecute any alcohol or drug abuse patient.[facility] HealthIn the event this information is protected by the Federal Confidentiality of Alcohol and Drug Abuse Patient Records regulations: The Federal rules restrict any use of the information to criminally investigate or prosecute any alcohol or drug abuse patient.[facility] HealthIn the event this information is protected by the Federal Confidentiality of Alcohol and Drug Abuse Patient Records regulations: The Federal rules restrict any use of the information to criminally investigate or prosecute any alcohol or drug abuse patient.[facility] HealthIn the event this information is protected by the Federal Confidentiality of Alcohol and Drug Abuse Patient Records regulations: The Federal rules restrict any use of the information to criminally investigate or prosecute any alcohol or drug abuse patient.[facility] HealthIn the event this information is protected by the Federal Confidentiality of Alcohol and Drug Abuse Patient Records regulations: The Federal rules restrict any use of the information to criminally investigate or prosecute any alcohol or drug abuse patient.[facility] HealthIn the event this information is protected by the Federal Confidentiality of Alcohol and Drug Abuse Patient Records regulations: The Federal rules restrict any use of the information to criminally investigate or prosecute any alcohol or drug abuse patient.[facility] HealthIn the event this information is protected by the Federal Confidentiality of Alcohol and Drug Abuse Patient Records regulations: The Federal rules restrict any use of the information to criminally investigate or prosecute any alcohol or drug abuse patient.[facility] the event this information is protected by the Federal Confidentiality of Alcohol and Drug Abuse Patient Records regulations: The Federal rules restrict any use of the information to criminally investigate or prosecute any alcohol or drug abuse patient.[facility] HealthIn the event this information is protected by the Federal Confidentiality of Alcohol and Drug Abuse Patient Records regulations: The Federal rules restrict any use of the information to criminally investigate or prosecute any alcohol or drug abuse patient.[facility] HealthIn the event this information is protected by the Federal Confidentiality of Alcohol and Drug Abuse Patient Records regulations: The Federal rules restrict any use of the information to criminally investigate or prosecute any alcohol or drug abuse patient.[facility] HealthIn the event this information is protected by the Federal Confidentiality of Alcohol and Drug Abuse Patient Records regulations: The Federal rules restrict any use of the information to criminally investigate or prosecute any alcohol or drug abuse patient.[facility] HealthIn the event this information is protected by the Federal Confidentiality of Alcohol and Drug Abuse Patient Records regulations: The Federal rules restrict any use of the information to criminally investigate or prosecute any alcohol or drug abuse patient.[facility] HealthIn the event this information is protected by the Federal Confidentiality of Alcohol and Drug Abuse Patient Records regulations: The Federal rules restrict any use of the information to criminally investigate or prosecute any alcohol or drug abuse patient.[facility] HealthIn the event this information is protected by the Federal Confidentiality of Alcohol and Drug Abuse Patient Records regulations: The Federal rules restrict any use of the information to criminally investigate or prosecute any alcohol or drug abuse patient.[facility] HealthIn the event this information is protected by the Federal Confidentiality of Alcohol and Drug Abuse Patient Records regulations: The Federal rules restrict any use of the information to criminally investigate or prosecute any alcohol or drug abuse patient.[facility] HealthIn the event this information is protected by the Federal Confidentiality of Alcohol and Drug Abuse Patient Records regulations: The Federal rules restrict any use of the information to criminally investigate or prosecute any alcohol or drug abuse patient.[facility] HealthIn the event this information is protected by the Federal Confidentiality of Alcohol and Drug Abuse Patient Records regulations: The Federal rules restrict any use of the information to criminally investigate or prosecute any alcohol or drug abuse patient.[facility] HealthIn the event this information is protected by the Federal Confidentiality of Alcohol and Drug Abuse Patient Records regulations: The Federal rules restrict any use of the information to criminally investigate or prosecute any alcohol or drug abuse patient.[facility] HealthIn the event this information is protected by the Federal Confidentiality of Alcohol and Drug Abuse Patient Records regulations: The Federal rules restrict any use of the information to criminally investigate or prosecute any alcohol or drug abuse patient.[facility] HealthIn the event this information is protected by the Federal Confidentiality of Alcohol and Drug Abuse Patient Records regulations: The Federal rules restrict any use of the information to criminally investigate or prosecute any alcohol or drug abuse patient.[facility] HealthIn the event this information is protected by the Federal Confidentiality of Alcohol and Drug Abuse Patient Records regulations: The Federal rules restrict any use of the information to criminally investigate or prosecute any alcohol or drug abuse patient.[facility] HealthIn the event this information is protected by the Federal Confidentiality of Alcohol and Drug Abuse Patient Records regulations: The Federal rules restrict any use of the information to criminally investigate or prosecute any alcohol or drug abuse patient.[facility] HealthIn the event this information is protected by the Federal Confidentiality of Alcohol and Drug Abuse Patient Records regulations: The Federal rules restrict any use of the information to criminally investigate or prosecute any alcohol or drug abuse patient.[facility] HealthIn the event this information is protected by the Federal Confidentiality of Alcohol and Drug Abuse Patient Records regulations: The Federal rules restrict any use of the information to criminally investigate or prosecute any alcohol or drug abuse patient.[facility] HealthIn the event this information is protected by the Federal Confidentiality of Alcohol and Drug Abuse Patient Records regulations: The Federal rules restrict any use of the information to criminally investigate or prosecute any alcohol or drug abuse patient.[facility] HealthIn the event this information is protected by the Federal Confidentiality of Alcohol and Drug Abuse Patient Records regulations: The Federal rules restrict any use of the information to criminally investigate or prosecute any alcohol or drug abuse patient.[facility] HealthIn the event this information is protected by the Federal Confidentiality of Alcohol and Drug Abuse Patient Records regulations: The Federal rules restrict any use of the information to criminally investigate or prosecute any alcohol or drug abuse patient.[facility] HealthIn the event this information is protected by the Federal Confidentiality of Alcohol and Drug Abuse Patient Records regulations: The Federal rules restrict any use of the information to criminally investigate or prosecute any alcohol or drug abuse patient.[facility] HealthIn the event this information is protected by the Federal Confidentiality of Alcohol and Drug Abuse Patient Records regulations: The Federal rules restrict any use of the information to criminally investigate or prosecute any alcohol or drug abuse patient.[facility] HealthIn the event this information is protected by the Federal Confidentiality of Alcohol and Drug Abuse Patient Records regulations: The Federal rules restrict any use of the information to criminally investigate or prosecute any alcohol or drug abuse patient.[facility] HealthIn the event this information is protected by the Federal Confidentiality of Alcohol and Drug Abuse Patient Records regulations: The Federal rules restrict any use of the information to criminally investigate or prosecute any alcohol or drug abuse patient.[facility] Teams (unrecognized sec tion and content) Performance Improvement Analyst Relationship Specialty Start Date End Date German Robertson [address] [facility] [address] [place] [address] PCP - General Internal Medicine 11/26/11 Team Status: Active Member Role Status Dates Dr. German Robertson MD Family Provider Active Dr. German Robertson MD Primary Care Provider Active Team Status: Inactive Member Role Status Dates Dr. German Robertson MD Primary Care Provider, Referri ng Provider Active Dr. Maurisio Londono MD Attending Provider Active Team Status: Inactive Member Role Status Dates Dr. German Robertson MD Primary Care Provider, Attendi ng Provider Active Performance Improvement Analyst Relationship Specialty Start Date End Date German Robertson MD [address] [facility] [address] [place] [address] PCP - General Internal Medicine 11/26/11 Team Status: Active Member Role Status Dates Dr. German Robertson MD Primary Care Pro vider, Referring Provider, Other Provider Active Dr. Sade Castellanos MD Attending Provider Active Team Status: Inactive Member Role Status Dates Dr. German Robertson MD Primary Care Pro vider, Attending Provider, Referring Provider Active Team Status: Inactive Member Role Status Dates Dr. German Robertson MD Primary Care Provider Active Dr. Maurisio Londono MD Attending Provider, Referring Provi roxi Active Performance Improvement Analyst Relationship Specialty Start Date End Date German Robertson MD [address] [place] [address] PCP - General Internal Medicine 11/26/11 Performance Improvement Analyst Relationship Specialty Start Date End Date German Robertson MD [address] [place] [address] PCP - General Internal Medicine 11/26/11 Performance Improvement Analyst Relationship Specialty Start Date End Date German Robertson MD [address] [place] [address] PCP - General Internal Medicine 11/26/11 Performance Improvement Analyst Relationship Specialty Start Date End Date German Robertson MD [address] [place] [address] PCP - General Internal Medicine 11/26/11 Performance Improvement Analyst Relationship Specialty Start Date End Date German Robertson [address] [place] [phone] PCP - General 02/15/14 Alka Noriega MD [address] [facility] [address] [place] [phone] Medical Oncology 11/08/22 Performance Improvement Analyst Relationship Specialty Start Date End Date German Robertson [address] [place] [phone] PCP - General 02/15/14 Alka Noriega MD [address] [facility] [address] [place] [address] Medical Oncology 11/08/22 Performance Improvement Analyst Relationship Specialty Start Date End Date German Robertson MD [address] [address] PCP - General Internal Medicine 11/26/11 Performance Improvement Analyst Relationship Specialty Start Date End Date German Robertson MD [address] [address] PCP - General Internal Medicine 11/26/11 Performance Improvement Analyst Relationship Specialty Start Date End Date German Robertson MD [address] [address] PCP - General Internal Medicine 11/26/11 Performance Improvement Analyst Relationship Specialty Start Date End Date German Robertson MD [address] [address] PCP - General Internal Medicine 11/26/11 Performance Improvement Analyst Relationship Specialty Start Date End Date German Robertson MD [address] [address] PCP - General Internal Medicine 11/26/11 Performance Improvement Analyst Relationship Specialty Start Date End Date German Robertson MD [address] [address] PCP - General Internal Medicine 11/26/11 Performance Improvement Analyst Relationship Specialty Start Date End Date German Robertson MD [address] [address] PCP - General Internal Medicine 11/26/11 Performance Improvement Analyst Relationship Specialty Start Date End Date German Robertson MD [address] [address] PCP - General Internal Medicine 11/26/11 Performance Improvement Analyst Relationship Specialty Start Date End Date German Robertson MD [address] [address] PCP - General Internal Medicine 11/26/11 Performance Improvement Analyst Relationship Specialty Start Date End Date German Robertson MD [address] [address] PCP - General Internal Medicine 11/26/11 Performance Improvement Analyst Relationship Specialty Start Date End Date German Robertson MD [address] [address] PCP - General Internal Medicine 11/26/11 Performance Improvement Analyst Relationship Specialty Start Date End Date German Robertson MD [address] [address] PCP - General Internal Medicine 11/26/11 Performance Improvement Analyst Relationship Specialty Start Date End Date German Robertson MD [address] [address] PCP - General Internal Medicine 11/26/11 Performance Improvement Analyst Relationship Specialty Start Date End Date German Robertson MD [address] [facility] [address] [place] [address] PCP - General Internal Medicine 11/26/11 Performance Improvement Analyst Relationship Specialty Start Date End Date Gemran Robertson MD [address] [address] PCP - General Internal Medicine 11/26/11 Performance Improvement Analyst Relationship Specialty Start Date End Date German Robertson MD [address] [address] PCP - General Internal Medicine 11/26/11 Performance Improvement Analyst Relationship Specialty Start Date End Date German Robertson MD [address] [address] PCP - General Internal Medicine 11/26/11 Performance Improvement Analyst Relationship Specialty Start Date End Date German Robertson MD [address] [address] PCP - General Internal Medicine 11/26/11 Performance Improvement Analyst Relationship Specialty Start Date End Date German Robertson MD [address] [address] PCP - General Internal Medicine 11/26/11 Performance Improvement Analyst Relationship Specialty Start Date End Date German Robertson MD [address] [address] PCP - General Internal Medicine 11/26/11 Performance Improvement Analyst Relationship Specialty Start Date End Date German Robertson MD [address] [facility] [address] [place] [address] PCP - General Internal Medicine 11/26/11 Performance Improvement Analyst Relationship Specialty Start Date End Date German Robertson [address] [place] [address] PCP - General 02/15/14 Alka Noriega MD [address] [place] [address] Medical Oncology 11/08/22 Performance Improvement Analyst Relationship Specialty Start Date End Date German Robertson MD [address] [place] [address] PCP - General Internal Medicine 11/26/11 Performance Improvement Analyst Relationship Specialty Start Date End Date German Robertson MD [address] [place] [address] PCP - General Internal Medicine 11/26/11 Performance Improvement Analyst Relationship Specialty Start Date End Date German Robertson [address] [place] [address] PCP - General 02/15/14 Alka Noriega MD [address] [place] [address] Medical Oncology 11/08/22 Sabas You MD [address] [facility] [address] [place] [address] Consulting Physician Hematology and Oncology 07/24/24 Performance Improvement Analyst Relationship Specialty Start Date End Date German Robertson [address] [place] [phone] PCP - General 02/15/14 Alka Noriega MD [address] [place] [address] Medical Oncology 11/08/22 Sabas You MD [address] [place] [address] Consulting Physician Hematology and Oncology 07/24/24 Performance Improvement Analyst Relationship Specialty Start Date End Date Ngocestevan German [address] [place] [phone] PCP - General 02/15/14 Alka Noriega MD [address] [place] [address] Medical Oncology 11/08/22 Sabas You MD [address] [place] [address] Consulting Physician Hematology and Oncology 07/24/24 Goals (unrecognized section and content) Goals may be documented in a n alternate sectionGoals may be documented in an alternate sectionGoals may be documented in an alternate section Reason for Visit (unrecogniz ed section and content) Reason Comments Transfusion Specialty Diagnoses / Procedures Referred By Contac t Referred To Contact Diagnoses Cancer of unknown origin (HCC) Myelodysplastic syndrome, unspecified (HCC) Procedures INJ LUSPATERCEPT-AAMT,0.25 MG Alka Noriega MD [address] [place] [address] Phone: tel: fax: INFUSION [address] [place] [address] Phone: tel: fax: Referral ID Status Reason Start Date Expiration Date Visits Requested Visits Authorized [id number] Authorized Patient Cleared - INN Insurance Found Patient Cleared - Admin/Chairma n/Director advise to proceed or did not respond 03/08/2023 02/24/2025 99 99 Reason Comments Infusion Transfusion Specialty Diagnoses / Procedures Referred By Contac t Referred To Contact Diagnoses Cancer of unknown origin (HCC) Myelodysplastic syndrome, unspecified (HCC) Procedures INJ LUSPATERCEPT-AAMT,0.25 MG Alka Noriega MD [address] [place] [phone] [facility] [address] [place] [address] Referral ID Status Reason Start Date Expiration Date Visits Requested Visits Authorized [id number] Authorized Patient Cleared - INN Insurance Found Patient Cleared - Admin/Chairma n/Director advise to proceed or did not respond 03/08/2023 02/24/2025 99 99 Specialty Diagnoses / Procedures Referred By Contac t Referred To Contact Diagnoses Anemia, unspecified type Procedures DIAGNOSTIC BONE MARROW BIOPSIES & ASPIRATIONS DIAGNOSTIC BONE MARROW BIOPSY(IES) AND ASPIRATION(S) [facility] [address] [place] [address] Referral ID Status Reason Start Date Expiration Date Visits Re quested Visits Authorized [id number] 1 1 Specialty Diagnoses / Procedures Referred By Contac t Referred To Contact Hematology / HEMONC INFUSION Diagnoses *1 unit blood - type & screen already done Procedures BLOOD TRANSTREATMENT 2.5 HOURS Alka Noriega MD [address] [place] [phone] [facility] [address] [place] [address] Referral ID Status Reason Start Date Expiration Date V isits Requested Visits Authorized [id number] Authorized 09/12/2022 02/24/2023 1 99 Reason Comments Established Patient Specialty Diagnoses / Procedures Referred By Contac t Referred To Contact Hematology/Oncology / HEMATOLOGY/ONCOLOGY Diagnoses 2 month ov + labs Procedures OFFICE/OUTPATIENT ESTABLISHED MOD MDM 30-39 MIN EST PATIENT Alka Noriega MD [address] [address] Alka Noriega MD [address] [facility] [address] [place] [address] Referral ID Status Reason Start Date Expiration Date Visits Re quested Visits Authorized [id number] Closed 02/25/2022 02/24/2023 1 1 Reason Onset Date Comments Medication Problem 12/29/2022 Reason Comments Imm/Inj Specialty Diagnoses / Procedures Referred By Contac t Referred To Contact Diagnoses Cancer of unknown origin (HCC) Procedures INJ LUSPATERCEPT-AAMT,0.25 MG Garcia-Alka Cruz MD [address] [phone] [facility] [address] [place] [address] Referral ID Status Reason Start Date Expiration Date Visits Requested Visits Authorized [id number] Authorized Patient Cleared - INN Insurance Found Patient Cleared - Admin/Chairma n/Director advise to proceed or did not respond 03/08/2023 02/25/2024 1 99 Reason Comments Injections Specialty Diagnoses / Procedures Referred By Contac t Referred To Contact Diagnoses Cancer of unknown origin (HCC) Procedures INJ LUSPATERCEPT-AAMT,0.25 MG Garcia-AnthonyAlka grace MD [address] [facility] [address] [place] [address] [facility] [address] [place] [address] Referral ID Status Reason Start Date Expiration Date Visits Requested Visits Authorized [id number] Authorized Patient Cleared - INN Insurance Found Patient Cleared - Admin/Chairma n/Director advise to proceed or did not respond 03/08/2023 09/06/2023 1 99 Reason Comments Follow Up TIA Reason Comments Established Patient Ov, results Specialty Diagnoses / Procedures Referred By Contac t Referred To Contact Hematology/Oncology / HEMATOLOGY/ONCOLOGY Diagnoses bx results Procedures OFFICE/OUTPATIENT ESTABLISHED MOD MDM 30-39 MIN EST PATIENT Alka Noriega MD [address] [place] [address] Alka Noriega MD [address] [place] [address] Referral ID Status Reason Start Date Expiration Date Visits Re quested Visits Authorized [id number] Closed 02/25/2022 02/24/2023 1 1 Reason Comments Patient Update Results Specialty Diagnoses / Procedures Referred By Contac t Referred To Contact Diagnoses Cancer of unknown origin (HCC) Myelodysplastic syndrome, unspecified (HCC) Procedures INJ LUSPATERCEPT-AAMT,0.25 MG Alka Noriega MD [address] [place] [address] [facility] [address] [place] [address] Referral ID Status Reason Start Date Expiration Date Visits Requested Visits Authorized [id number] Authorized Patient Cleared - INN Insurance Found Patient Cleared - Admin/Chairma n/Director advise to proceed or did not respond 03/08/2023 09/06/2023 99 99 Specialty Diagnoses / Procedures Referred By Contac t Referred To Contact Hematology/Oncology / HEMATOLOGY/ONCOLOGY Diagnoses 1 month ov + lab Procedures OFFICE/OUTPATIENT ESTABLISHED MOD MDM 30-39 MIN EST PATIENT Alka Noriega MD [address] [place] [address] Alka Noriega MD [address] [place] [address] Referral ID Status Reason Start Date Expiration Date Visits Re quested Visits Authorized [id number] Closed 02/25/2022 02/24/2023 1 1 Specialty Diagnoses / Procedures Referred By Contac t Referred To Contact Hematology/Oncology / HEMATOLOGY/ONCOLOGY Diagnoses 6 wk ov + labs Procedures OFFICE/OUTPATIENT ESTABLISHED MOD MDM 30-39 MIN EST PATIENT Alka Noriega MD [address] [place] [address] Alka Noriega MD [address] [place] [address] Referral ID Status Reason Start Date Expiration Date Visits Re quested Visits Authorized [id number] Closed 02/25/2022 02/24/2023 1 1 Specialty Diagnoses / Procedures Referred By Radhaac t Referred To Contact Hematology/Oncology / HEMATOLOGY/ONCOLOGY Diagnoses 1 month ov+ labs Procedures OFFICE/OUTPATIENT ESTABLISHED MOD MDM 30-39 MIN EST PATIENT Alka Noriega MD [address] [place] [address] Alka Noriega MD [address] [place] [address] Referral ID Status Reason Start Date Expiration Date Visits Re quested Visits Authorized [id number] Closed 02/25/2022 02/24/2023 1 1 Specialty Diagnoses / Procedures Referred By Contac t Referred To Contact Hematology/Oncology / HEMATOLOGY/ONCOLOGY Diagnoses Encounter for general adult medical examination without abnormal findings 6 wk ov + labs Procedures OFFICE/OUTPATIENT ESTABLISHED MOD MDM 30-39 MIN EST PATIENT Alka Noriega MD [address] [place] [address] Alka Noriega MD [address] [place] [address] Referral ID Status Reason Start Date Expiration Date Visits Re quested Visits Authorized [id number] Closed 02/25/2023 02/25/2024 1 1 Referral ID Status Reason Start Date Expiration Date Visits Requested Visits Authorized [id number] Authorized Patient Cleared - INN Insurance Found Patient Cleared - Admin/Chairma n/Director advise to proceed or did not respond 03/08/2023 12/06/2023 99 99 Reason Comments Patient Question Reason Comments Patient Update Reason Comments Follow Up Referral ID Status Reason Start Date Expiration Date Visits Requested Visits Authorized [id number] New Request Patient Cleared - INN Insurance Found Patient Cleared - Admin/Chairma n/Director advise to proceed or did not respond 03/08/2023 12/06/2023 99 99 Reason Comments Established Patient 2 month ov Referral ID Status Reason Start Date Expiration Date Visits Requested Visits Authorized [id number] Authorized Patient Cleared - INN Insurance Found Patient Cleared - Admin/Chairma n/Director advise to proceed or did not respond 03/08/2023 02/25/2024 99 99 Reason Comments Infusion Reason Comments Chemotherapy Treatment Specialty Diagnoses / Procedures Referred By Contac t Referred To Contact HEMON INFUSION Diagnoses 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 02/24/25 KM Procedures TREATMENT 5 HOURS Alka Noriega MD [address] [address] [facility] [place] [facility] [address] [place] [address] Referral ID Status Reason Start Date Expiration Date V isits Requested Visits Authorized [id number] Authorized 01/08/2024 02/24/2025 1 99 Reason Comments Scheduling Specialty Diagnoses / Procedures Referred By Contac t Referred To Contact HEMONC INFUSION Diagnoses 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 02/24/25 KM Procedures TREATMENT 5 HOURS Alka Noriega MD [address] [address] Phone: tel: fax: Hematology/Oncology [address] [place] [address] Phone: tel: fax: Referral ID Status Reason Start Date Expiration Date Visits Requested Visits Authorized [id number] Authorized Patient Cleared - Admin/Chairm an/Director advise to proceed or did not respond 4 02/24/2025 1 99 Reason Comments Established Patient Ov Reason Onset Date Comments Hypertension 06/20/2024 Reason Comments New Patient Myelodysplastic synd aric, Clonal cytopenia of undetermined significance (CCUS) Reason Onset Date Comments Labs Only 07/27/2024 PRN Active and Recently Administ ered Medications (unrecognized section and content) Medication Order 05/30/2022 05/31/2022 06/01/2022 fentaNYL 50 mcg/mL injection (SUBLIMAZE) INTRAVENOUS, X (OR/PROCEDURE) PRN, Starting on Sat06/01/22 at 1025, Until 06/02/22 at 0303, Intraprocedure 1025 (Given - Provid er: Katiuska Bryant RN) lidocaine (PF) 10 mg/mL (1 %) injection (XYLOCAINE) SUBCUTANEOUS, X (OR/PROCEDURE) PRN, Starting on Sat06/01/22 at 1028, Until 06/02/22 at 0303, Intraprocedure 1028 (Given - Provid er: Teddy Terrazas MD) midazolam (PF) injection (VERSED) INTRAVENOUS, X (OR/PROCEDURE) PRN, Starting on Sat06/01/22 at 1025, Until 06/02/22 at 0303, Intraprocedure 1025 (Given - Provid er: Katiuska Bryant RN) NaCl 0.9% iv infusion INTRAVENOUS, X (OR/PROCEDURE) CONTINUOUS, Starting on Sat06/01/22 at 1016, Until 06/02/22 at 0303, Intraprocedure 1016 (New Bag/Syring e/Bottle - Provider: Katiuska Bryant RN)1041 (Infusion Complete - Provider: Katiuska Bryant RN) PRN Medication Order 07/19/2024 07/20/2024 07/21/2024 acetaminophen 650 mg tab(s) (TYLENOL) 650 mg, ORAL, EVERY 4 HOURS NEEDED, Starting on Sat07/21/24 at 1258, Until Sat07/22/24 at 0303, Mild Pain (1-3) - Enteral fentaNYL 50 mcg/mL injection (SUBLIMAZE) (CANCELED) INTRAVENOUS, X (OR/PROCEDURE) PRN, Starting on Sat07/21/24 at 1223, Until Sat07/21/24 at 1230, Intraprocedure 1223 (Given - Provid er: Marci Quinn RN) HYDROcodone 5 mg - acetaminophen 325 mg tablet (NORCO) 1-2 tablet, ORAL, EVERY 4 HOURS NEEDED, Starting on Sat07/21/24 at 1258, Until Sat07/22/24 at 0303, Moderate Pain (4-6) - Enteral, Give 1 tab for moderate pain Give 2 tabs for severe pain midazolam (PF) injection (VERSED) (CANCELED) INTRAVENOUS, X (OR/PROCEDURE) PRN, Starting on Sat07/21/24 at 1223, Until Sat07/21/24 at 1230, Intraprocedure 1223 (Given - Provid er: Marci Quinn RN) ondansetron (PF) 4 mg injection (ZOFRAN) 4 mg, INTRAVENOUS, EVERY 6 HOURS NEEDED, Starting on Sat07/21/24 at 1258, Until Sat07/22/24 at 0303, Nausea/Vomiting - First Line - Parenteral, Give IV push over 2 minutes Inactive Administered Medications - up to 3 most recent administrations Administered Medications (un recognized section and content) Medication Order MAR Action Action Date Dose Rate Site luspatercept-aamt 97.5 mg in syringe 1.95 mL (REBLOZYL) 97.5 mg (1 mg/kg/dose 97.5 kg Treatment plan Recorded weight), SUBCUTANEOUS, ONCE, 1 dose, On Sat03/29/23 at 1530, Refrigerate - EXP: (24 HR) Inject into the upper arm, thigh, and/or abdomen. Doses requiring larger reconstituted volumes (greater than 1.2 mL) should be divided into separate syringes; inject into separate sites. Given 03/29/2023 3:33 PM EST 97.5 mg Arm, Right Inactive Administered Medications - up to 3 most recent administrations Medication Order MAR Action Action Date Dose Rate Site luspatercept-aamt 100 mg in syringe 2 mL (REBLOZYL) 100 mg (rounded from 97.5 mg = 1 mg/kg/dose 97.5 kg Treatment plan Recorded weight), SUBCUTANEOUS, ONCE, 1 dose, On Sat04/19/23 at 1430, Refrigerate - EXP: (24 HR) Inject into the upper arm, thigh, and/or abdomen. Doses requiring larger reconstituted volumes (greater than 1.2 mL) should be divided into separate syringes; inject into separate sites. Given 04/19/2023 2:25 PM EST 100 mg Abdomen, LUQ Inactive Administered Medications - up to 3 most recent administrations Medication Order MAR Action Action Date Dose Rate Site luspatercept-aamt 97.5 mg in syringe 1.95 mL (REBLOZYL) 97.5 mg (1 mg/kg/dose 97.5 kg Treatment plan Recorded weight), SUBCUTANEOUS, ONCE, 1 dose, On Sat05/10/23 at 1430, Refrigerate - EXP: (24 HR) Inject into the upper arm, thigh, and/or abdomen. Doses requiring larger reconstituted volumes (greater than 1.2 mL) should be divided into separate syringes; inject into separate sites. Given 05/10/2023 2:31 PM EDT 97.5 mg Arm, Right Inactive Administered Medications - up to 3 most recent administrations Medication Order MAR Action Action Date Dose Rate Site luspatercept-aamt 97.5 mg in syringe 1.95 mL (REBLOZYL) 97.5 mg (1 mg/kg/dose 97.5 kg Treatment plan Recorded weight), SUBCUTANEOUS, ONCE, 1 dose, On Sat05/30/23 at 1500, Refrigerate - EXP: (24 HR) Inject into the upper arm, thigh, and/or abdomen. Doses requiring larger reconstituted volumes (greater than 1.2 mL) should be divided into separate syringes; inject into separate sites. Given 05/30/2023 2:55 PM EDT 97.5 mg Abdomen, LLQ FOR RECORDS PERTAINING TO PATIENTS WHO ARE OR HAVE BEEN ENROLLED IN A CHEMICAL DEPENDENCY/SUBSTANCEABUSE PROGRAM, SOME INFORMATION MAY BE OMITTED. This clinical summary was aggregated from multiple sources. Caution should be exercised in using it in the provision of clinical care. This summary normalizes information from multiple sources, and as a consequence, information in this document may materially change the coding, format and clinical context of patient data. In addition, data may be omitted in some cases. CLINICAL DECISIONS SHOULD BE BASED ON THE PRIMARY CLINICAL RECORDS. [facility] [employer] [facility]. provides no warranty or guarantee of the accuracy or completeness of information in this document.
--- NOTE | 2024-08-09 15:35 | RAD_ITS ---
PROCEDURE: ABDOMEN SINGLE VIEW 08/09/2024 REASON FOR EXAM: PAIN TECHNIQUE: ABDOMEN SINGLE VIEW FINDINGS: Normal gastrointestinal gas pattern seen. Right upper quadrant surgical clips are seen. Mild stool noted in large bowel loops. No pneumoperitoneum. Visualized bones appear unremarkable. No pathological abdominal calcifications noted. RAD/Abdomen Single View IMPRESSION: No acute findings Reading Location[facility]
== END | disposition home or self-care (01) ==
LOC: RAD 15:29
PROVIDERS: PCP Internal Medicine; Visit Provider Internal Medicine
DX: R19.4 Change in bowel habit (principal)
CPT/HCPCS: 74018

== ENCOUNTER → 2024-10-15 | Outpatient (CLI) | payer MEDICARE, SELFPAY ==
--- NOTE | 2024-10-15 14:10 | MRI_ITS ---
PROCEDURE: SPINE LUMBAR (ROUTINE) 10/15/2024 REASON FOR EXAM: RADICULOPATHY TECHNIQUE: SPINE LUMBAR (ROUTINE) COMPARISON: 08/07/2018 FINDINGS: There is an acute mild compression deformity of the L2 vertebral body with edema. There are chronic deformities at T12, L1 and L3. There is no subluxation. There is no compression of the conus or paravertebral mass lesion. T11-T12 is unremarkable. No spinal stenosis at T12-L1. No significant canal narrowing at L1-2 or L2-3. At L3-4, there is a far left lateral disc bulge without nerve root impingement. At L4-5 [id number] circumferential canal narrowing from mild annular bulging with facet and ligamentous hypertrophy. Moderate narrowing of the right L4 neural foramen. At L5-S1 degenerative disc space narrowing is seen without spinal canal narrowing. Mild inferior foraminal narrowing bilaterally MRI/Spine Lumbar (Routine) IMPRESSION: 1. 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 Acute mild compressive deformity at L2 without retropulsion. 3. [id number] canal narrowing at L4-5 Reading Location[facility]
== END | disposition home or self-care (01) ==
LOC: OPMRI 13:27
PROVIDERS: PCP Internal Medicine; Referring Provider Anesthesiology Pain Medicine; Visit Provider Anesthesiology Pain Medicine
DX: M54.16 Radiculopathy, lumbar region (principal)
CPT/HCPCS: 72148

== ENCOUNTER 2025-02-05 12:22 | Outpatient (CLI) | payer MEDICARE, SELFPAY ==
[2025-02-05 13:15] VITALS: BP 136/101; PULSE 86; RESP 16; TEMP 36.4; O2SAT 100; BMI 32.4
[2025-02-05 13:23] VITALS: BP 136/48; PULSE 74; RESP 16; TEMP 36.5; O2SAT 100
[2025-02-05 14:23] VITALS: BP 147/57; PULSE 80; RESP 16; TEMP 36.5; O2SAT 100
[2025-02-05 15:21] VITALS: BP 149/54; PULSE 76; RESP 16; TEMP 36.6; O2SAT 100
== END 2025-02-05 23:59 | disposition home or self-care (01) ==
LOC: MEDOUTP 12:23
PROVIDERS: PCP Internal Medicine; Referring Provider Internal Medicine Hematology & Oncology; Visit Provider Internal Medicine Hematology & Oncology
DX: D46.9 Myelodysplastic syndrome, unspecified (principal)
CPT/HCPCS: 36430; 86850; 86900; 86901; 86920; 86922; P9040; A4216

== ENCOUNTER 2025-02-12 07:39 | Outpatient (CLI) | payer MEDICARE, SELFPAY ==
--- OUTSIDE RECORDS SUMMARY | 2025-02-11 20:21 | XMS RPT_ITS | CCD ---
Author Organization [facility] Care Team Providers Care Paint Spray Inspector Name Role Phone Mendpara, Carlos Devjibhai Unavailable Unava ilable Mendpara, Carlos Devjibhai Unavailable Unava ilable German Robertson Unavailable Unavaila ble Katsanicola, German Denney Unavailable Unavaila ble Mendpara, Carlos Devjibhai Unavailable Unava ilable Mendpara, Carlos Devjibhai Unavailable Unava ilable German Robertson Unavailable Unavaila ble KatsaGerman petersen Unavailable Unavaila ble NO REFERRING DR Unavailable Unavailable TRACY MARTINEZ Unavailable Unavailable TRACY MARTINEZ Unavailable Unavailable YO KOHLI Unavailable Unavailable MERARY GONZALEZ Unavailable Unavailable JANE EDWIN Unavailable Unavailable BUCHBAUDILIO MERARY Unavailable Unavailable SHO WITTEN Unavailable Unavailable MARTIR WITT Unavailable Unavailable NO REFERRING Unavailable Unavailable GERMAN ROBERTSON Unavailable Unavailable GERMAN ROBERTSON Unavailable Unavailable NO REFERRING DR Unavailable Unavailable IMCA Unavailable Unavailable IMCA Unavailable Unavailable NO REFERRING DR Unavailable Unavailable YO KOHLI Unavailable Unavailable YO KOHLI Unavailable Unavailable YO KOHLI Unavailable Unavailable Dr. German Robertson Primary Care Provider Dr. German Robertson Referring Provider [phone] Friend, Dr. Hodge Attending Provider Friend, Dr. Hodge Other Provider [phone] German Robertson Primary Care Provider Dr. German Robertson Primary Care Provider Dr. German Robertson Referring Provider Dr. Maurisio Londono Attending Provider Ailyn ZIEGLER, German Denney Primary Care Provider Dr. German Robertson Other Provider Dr. Sade Castellanos Attending Provider German Robertson Primary Care Provider Leann ZIEGLER, Vicenta Sesay Unavailable [facility] Unavaila ble KILANI, MAYID FABRICE Admitting Unavailable SARALAYA, SPARSHA Attending Unavailable JESSE SMITH Consulting Unavailable Ailyn ZIEGLER, German Denney Primary Care Provider Girma Vargas MD, Greg Unavailable Ailyn ZIEGLER, Dr. Helms Primary Care Provider [phone] Ailyn ZIEGLER, Dr. Helms Attending Provider Corey RN, Chondra Unavailable Unavailable Tasha ZIEGLER, Dr. Lindo Attending Provider Dr. Guicho Cordova MD Referring Provider Maurisio Londono Attending Unavailable German Robertson Referring Unavailable German Robertson Primary Care Unavailable German Robertson Primary Care Unavailable Guicho Cordova Referring Unavailable Guicho Cordova Attending Unavailable German Robertson Primary Care Unavailable German Robertson Attending Unavailable Maurisio Londono Attending Unavailable German Robertson Referring Unavailable German Robertson Primary Care Unavailable ZHENG, YOGEN Referring Unavailabl e SAUNTHARARAJAH, ANNIE Attending Unavailabl e KATGERMAN [facility] Primary Care Unavaila ble TRACY FARFAN Attending Unavailable THUESTAD, BRYCE A Referring Unavailable GERMAN ROBERTSON Primary Care Unavaila ble SAUNTMONI, ANNIE Attending Unavailabl e K[facility]AGERMAN [facility] Care Unavaila ble SABAS YOU Referring Unavailable SAUNTHARARAJAH, YOGEN Referring Unavailabl e SAUNTHARARAJAH, ANNIE Attending Unavailabl e GERMAN ROBERTSON Primary Care Unavaila ble KATSAROS, PETER NIKETAS Primary Care Unavaila ble GARCIA-ANTHONY, VICENTA Sesay Referring Unavailabl e GARCIA-ANTHONYVICENTA Attending Unavailabl e KATSAROS, [facility] Care Unavaila ble GARCIA-ANTHONY, VICENTA Sesay Referring Unavailabl e KATSAROS, [facility] Unavaila ble GARCIA-ANTHONY, VICENTA Sesay Referring Unavailabl e KATSAROS, [facility] Primary Care Unavaila ble GARCIA-ANTHONY, VICENTA Sesay Referring Unavailabl e KATSAROS, [facility] Care Unavaila ble GARCIA-ANTHONY, VICENTA Sesay Referring Unavailabl e KATSAROS, [facility] Care Unavaila ble GARCIA-ANTHONY, VICENTA Sesay Referring Unavailabl e KATSAROS, [facility] Unavaila ble GARCIA-ANTHONY, VICENTA Sesay Attending Unavailabl e KATSAROS, [facility] Unavaila ble GARCIA-ANTHONY, VICENTA Sesay Referring Unavailabl e KATSAROS, [facility] Unavaila ble KATSAROS, [facility] Unavaila ble GARCIA-ANTHONY, VICENTA Sesay Referring Unavailabl e KATSAROS, [facility] Unavaila ble GARCIA-ANTHONY, VICENTA Sesay Referring Unavailabl e KATSAROS, [facility] Unavaila ble GARCIA-ANTHONY, VICENTA Sesay Referring Unavailabl e KATSAROS, [facility] Unavaila ble LEIGHTON COOPER Attending Unavailable KATSAROS, [facility] Unavaila ble GARCIA-ANTHONYVICENTA Referring Unavailabl e KATSAROS, [facility] Unavaila ble GARCIA-ANTHONYVICENTA Referring Unavailabl e KATSAROS, [facility] Unavaila ble TRACY CANNON Attending Unavailable KATSAROS, [facility] Unavaila ble GARCIA-ANTHONYVICENTA Attending Unavailabl e KATSAROS, [facility] Unavaila ble GARCIA-ANTHONYVICENTA Referring Unavailabl e GARCIA-ANTHONYVICENTA Referring Unavailabl e KATSAROS, [facility] Unavaila ble KATSAROS, [facility] Unavaila ble GARCIA-ANTHONY, VICENTA Sesay Referring Unavailabl e KATSAROS, [facility] Unavaila ble TRACY CANNON Attending Unavailable KATSAROS, [facility] Unavaila ble GARCIA-ANTHONY, IVCENTA Sesay Referring Unavailabl e KATSAROS, [facility] Unavaila ble GARCIA-ANTHONY, VICENTA Sesay Referring Unavailabl e KATSAROS, [facility] Unavaila ble GARCIA-ANTHONY, VICENTA Sesay Referring Unavailabl e KATSAROS, [facility] Unavaila ble GARCIA-ANTHONY, VICENTA Sesay Referring Unavailabl e GARCIA-ANTHONY, VICENTA Sesay Attending Unavailabl e KATSAROS, [facility] Unavaila ble GARCIA-ANTHONY, VICENTA Sesay Referring Unavailabl e KATSAROS, [facility] Unavaila ble GARCIA-ANTHONY, VICENTA Sesay Referring Unavailabl e KATSAROS, [facility] Unavaila ble GARCIA-ANTHONY, VICENTA Sesay Referring Unavailabl e KATSAROS, [facility] Unavaila ble GARCIA-ANTHONY, VICENTA Sesay Referring Unavailabl e GARCIA-ANTHONYVICENTA Attending Unavailabl e KATSAROS, [facility] Unavaila ble GARCIA-ANTHONY, VICENTA Sesay Referring Unavailabl e KATSAROS, [facility] Unavaila ble GARCIA-ATNHONY, VICENTA Sesay Referring Unavailabl e GARCIA-ANTHONYVICENTA Attending Unavailabl e KATSAROS, [facility] Unavaila ble MIGUELANGEL MAGANA Attending Unavailable MIGUELANGEL MAGANA Admitting Unavailable KATSAROS, [facility] Unavaila ble GARCIA-ANTHONY, VICENTA Sesay Referring Unavailabl e KATSAROS, [facility] Unavaila ble GARCIA-ANTHONYVICENTA Referring Unavailabl e YASHIRAOWEN SÁNCHEZ Attending Unavailable GARCIA-ANTHONYVICENTA Referring Unavailabl e KATSAROS, [facility] Unavaila ble KATSAROS, [facility] Unavaila ble GARCIA-ANTHONY, VICENTA Sesay Referring Unavailabl e KATSAROS, PETER NIKETAS Primary Care Unavaila ble GARCIA-ANTHONYVICENTA Referring Unavailabl e GARCIA-ANTHONYVICENTA Attending Unavailabl e KATSAROS, [facility] Primary Care Unavaila ble GARCIA-ANTHONYVICENTA Referring Unavailabl e KATSAROS, [facility] Primary Care Unavaila ble HORATTASKIRTI Attending Unavailable KATSAROS, GERMAN [facility] Primary Care Unavaila ble PRABHAKARAN, ANOOPGAN Attending Unavaila ble PRABHAKARAN, ANOOPGAN Admitting Unavaila ble KATSAROS, [facility] Primary Care Unavaila ble PRABHAKARAN, TINA Attending Unavaila ble PRABHAKARAN, TINA Admitting Unavaila ble KATSAROS, [facility] Primary Care Unavaila ble MARÍA, THOMAS Attending Unavailable MARÍA, THOMAS Admitting Unavailable KATSAROS, [facility] Primary Care Unavaila ble KATSAROS, [facility] Primary Care Unavaila ble GARCIA-ANTHONYVICENTA GRACE Referring Unavailabl e KATSAROS, [facility] Care Unavaila ble GARCIA-ANTHONYVICENTA Referring Unavailabl e KATSAROS, [facility] Primary Care Unavaila ble GARCIA-ANTHONYVICENTA Sorto Referring Unavailabl e KATSAROS, GERMAN [facility] Care Unavaila ble GARCIA-ANTHONYVICENTA Referring Unavailabl e KATSAROS, [facility] Care Unavaila ble GARCIA-ANTHONYVICENTA Sorto Referring Unavailabl e KATSAROS, [facility]MAN [facility] Primary Care Unavaila ble GARCIA-ANTHONYVICENTA Referring Unavailabl e KATSAROS, [facility] Care Unavaila ble GARCIA-ANTHONYVICENTA Referring Unavailabl e GARCIA-ANTHONYVICENTA Attending Unavailabl e KATSAROS, [facility] Primary Care Unavaila ble GARCIA-ANTHONYVICENTA Referring Unavailabl e GARCIA-ANTHONYVICENTA Attending Unavailabl e KATSAROS, [facility] Primary Care Unavaila ble GARCIA-ANTHONYVICENTA Referring Unavailabl e KATSAROS, [facility] Primary Care Unavaila ble KATSAROS, PETER NIKETAS Primary Care Unavaila ble GARCIA-ANTHONY, VICENTA Sesay Referring Unavailabl e KATSAROS, [facility] Primary Care Unavaila ble KATSAROS, [facility] Care Unavaila ble GARCIA-ANTHONY, VICENTA Sesay Referring Unavailabl e KATSAROS, [facility] Care Unavaila ble GARCIA-ANTHONY, VICENTA Sesay Referring Unavailabl e KATSAROS, [facility] Care Unavaila ble GARCIA-ANTHONY, VICENTA Sesay Referring Unavailabl e KATSAROS, [facility] Care Unavaila ble GARCIA-ANTHONY, VICENTA Sesay Referring Unavailabl e KATSAROS, [facility] Care Unavaila ble GARCIA-ANTHONY, VICENTA Sesay Referring Unavailabl e KATSAROS, [facility] Care Unavaila ble GARCIA-ANTHONY, VICENTA Sesay Referring Unavailabl e KATSAROS, [facility] Care Unavaila ble GARCIA-ANTHONY, VICENTA Sesay Referring Unavailabl e KATSAROS, [facility] Care Unavaila ble GARCIA-ANTHONY, VICENTA Sesay Referring Unavailabl e KATSAROS, [facility] Care Unavaila ble GARCIA-ANTHONY, VICENTA Sesay Referring Unavailabl e KATSAROS, [facility] Care Unavaila ble GARCIA-ANTHONY, VICENTA Sesay Referring Unavailabl e KATSAROS, [facility] Care Unavaila ble GARCIA-ANTHONY, VICENTA Sesay Referring Unavailabl e KATSAROS, [facility] Care Unavaila ble GARCIA-ANTHONY, VICENTA Sesay Referring Unavailabl e KATSAROS, [facility] Care Unavaila ble GARCIA-ANTHONY, VICENTA Sesay Referring Unavailabl e KATSAROS, [facility] Care Unavaila ble GARCIA-ANTHONY, VICENTA Sesay Referring Unavailabl e KATSAROS, [facility] Care Unavaila ble GARCIA-ANTHONY, VICENTA Sesay Referring Unavailabl e KATSAROS, [facility] Care Unavaila ble GARCIA-ANTHONY, VICENTA Sesay Referring Unavailabl e KATSAROS, [facility] Care Unavaila ble GARCIA-ANTHONY, VICENTA Sesay Referring Unavailabl e KATSAROS, GERMAN NIKETAS Primary Care Unavaila ble GARCIA-ANTHONYVICENTA Referring Unavailabl e KATSAROS, [facility] Primary Care Unavaila ble KATSAROS, [facility] Primary Care Unavaila ble GARCIA-ANTHONYVICENTA Referring Unavailabl e KATSAROS, [facility] Primary Care Unavaila ble THUESTAD, BRYCE A Attending Unavailable KATSAROS, [facility] Care Unavaila ble HAZZI, RAMI Admitting Unavailable KATSAROS, [facility] Primary Care Unavaila ble KATSAROS, [facility] Primary Care Unavaila ble GARCIA-ANTHONYVICENTA Referring Unavailabl e KATSAROS, [facility] Primary Care Unavaila ble GARCIA-ANTHONYVICENTA Referring Unavailabl e KATSAROS, [facility] Care Unavaila ble KATSAROS, [facility] Care Unavaila ble GARCIA-ANTHONYVICENTA Referring Unavailabl e KATSAROS, [facility]MAN [facility] Primary Care Unavaila ble KATSAROS, [facility] Care Unavaila ble GARCIA-ANTHONYVICENTA Referring Unavailabl e KATSAROS, [facility] Care Unavaila ble SENKO, LEIGHTON Referring Unavailable KATSAROS, [facility] Care Unavaila ble KATSAROS, [facility] Care Unavaila ble GARCIA-ANTHONYVICENTA Referring Unavailabl e KATSAROS, [facility] Care Unavaila ble GARCIA-ANTHONYVICENTA Sorto Referring Unavailabl e KATSAROS, [facility] Primary Care Unavaila ble GARCIA-ANTHONYVICENTA Sorto Referring Unavailabl e KATSAROS, [facility] Care Unavaila ble GARCIA-ANTHONYVICENTA Referring Unavailabl e KATSAROS, [facility] Primary Care Unavaila ble GARCIA-ANTHONYVICENTA Referring Unavailabl e KATSAROS, [facility] Primary Care Unavaila ble GARCIA-ANTHONYVICENTA Referring Unavailabl e KATSAROS, [facility] Primary Care Unavaila ble KATSAROS, [facility] Primary Care Unavaila ble KATSAROS, [facility] Primary Care Unavaila ble GARCIA-ANTHONYVICENTA Referring Unavailabl e KATSAROS, [facility] Unavaila ble GARCIA-ANTHONYVICENTA Referring Unavailabl e KATSAROS, [facility] Unavaila ble GARCIA-ANTHONYVICENTA Referring Unavailabl e KATSAROS, [facility] Unavaila ble GARCIA-ANTHONY, VICENTA Sesay Referring Unavailabl e KATSAROS, [facility] Unavaila ble GARCIA-ANTHONY, VICENTA Sesay Referring Unavailabl e KATSAROS, [facility] Unavaila ble GARCIA-ANTHONY, VICENTA Sesay Referring Unavailabl e KATSAROS, [facility] Unavaila ble GARCIA-ANTHONY, VICENTA Sesay Referring Unavailabl e GARRETTCHRISTINANEO Attending Unavailable MAUREEN LANGLEY Admitting Unavailable [facility], [facility] Unavaila ble KATSAROS, [facility] Unavailable SABAS HERRING Attending Unavailable [facility] Unavailable SABAS HERRING Attending Unavailable CHELLE REYES Referring Unavailable ALMITA CARR Attending Unavailable ALMITA CARR Admitting [facility]available [facility], [facility] Unavaila ble Allergies Allergy Classification Reported Allergen(s) Allergy Type Date of Onset Reaction(s) Facility Cephalosporins (antibiotic) (2 sources) cefepime Drug Allergy 1 Unknown [facility] (1 source) NO KNOWN ALLERGIES; Translations: [NO KNOWN ALLERGIES] Propensity to adverse reactions (disorder) [facility] (1 source) NKA; Translations: [NKA] Propensity to adverse reactions (disorder) [facility] Rep[facility] (20 sources) cefepime; Translations: [CEFEPIME] Drug Allergy 1 Unknown [facility] (8 sources) HMG-CoA reductase inhibitor Drug Allergy 1 Other: See Comments, Unknown [facility] (1 source) cefepime Drug Allergy 3 [facility] Repository Medications Current Medications Medication Drug Class(es) Dates Sig (Normalized) Sig (Original) alendronic acid 70 mg oral tablet (20 sources) Bisphosphonate Start: 10-07-2018 take 1 tablet by mouth every week Alendronate (Fosamax) 70 mg tablet Active 70 mg PO EVERY WEEK October 07, 2018 12:00am started October 2022Fridays Comment on above: Take 70 mg by mouth one time a week. In AM with cup of water on empty stomach. Nothing else by mouth and stay upright for 30 min. amLODIPine 5 mg oral tablet (20 sources) Dihydropyridine Calcium Channel Monster Start: 06-10-2024 [...] by mouth once daily. 07/11/2016 Active Start: 07-11-2016 Aspirin 81 MG tablet,chewable Active 1 {tbl} PO DAILY July 11, 2016 12:00am [facility] Start: 01-03-2013 End: 03-05-2023 take 1 tablet by mouth once daily aspirin, enteric coated (ASPIR-LOW) 81 mg EC tablet Take 1 tablet by mouth once daily. 0 01/03/2013 03/05/2023 Discontinued (Changing Therapy/Dosage Form) Comment on above: Take 1 tablet by lauryn th once daily. Take by mouth. bisacodyl 5 mg delayed release oral tablet (1 source) Stimulant Laxative Start: End: take 1 tablet by mouth once daily as needed bisacodyl EC (DULCOLAX) 5 mg EC tablet Take 1-2 tablets by mouth once daily as needed for constipation for up to 14 days. 10 tablet 07/02/2024 07/16/2024 Active clopidogrel 75 mg oral tablet (20 sources) P2Y12 Platelet Inhibitor Start: take 1 tablet by mouth once daily clopidogrel (Plavix) 75 MG tablet Take 75 mg by mouth daily. 08/04/2024 Active Start: 06-11-2023 End: 06-30-2023 take 1 tablet by mouth once daily clopidogrel (PLAVIX) 75 mg tablet Take 1 tablet by mouth once daily for 19 doses. 19 tablet 06/11/2023 Active deferasirox 360 mg oral tablet (1 source) Iron Chelator Start: 11-05-2024 take 4 tablets by mouth once daily deferasirox (JADENU) 360 mg tab Take 4 tablets (1440mg) by mouth once daily. 120 tablet 3 11/05/2024 Active finasteride 5 mg oral tablet (20 sources) 5-alpha Reductase Inhibitor Start: 07-10-2018 take 1 tablet by mouth once daily Finasteride (Proscar) 5 MG tablet Active 5 mg PO DAILY July 10, 2018 12:00am prostate Comment on above: Take 5 mg by mouth o nce daily. finasteride 0.1% minoxidil 7.5% topical solution (CPD) (20 sources) Start: 07-10-2018 finasteride 0. 1% minoxidil 7.5% [...] mouth daily with dinner. 01/11/2023 Active Start: 04-13-2022 End: 12-31-2023 take 1 tablet by mouth twice daily Glimepiride 4 mg tablet Discontinued 4 mg PO TWICE A DAY 180 3 August 20, 2023 3:02pm December 31, 2023 2:47pm Start: 01-04-2022 End: 04-13-2022 take 4 tablets by mouth once daily Glimepiride (Amaryl) 1 mg tablet Discontinued 4 mg PO DAILY January 04, 2022 2:25pm April 13, 2022 4:33pm Start: 08-08-2020 End: 01-22-2023 take 1 tablet by mouth once daily Glimepiride (Amaryl) 1 mg tablet Discontinued 1 mg PO DAILY August 08, 2020 12:00am January 04, 2022 2:25pm Start: 07-10-2018 End: 10-07-2018 take 1 tablet by mouth once daily Glimepiride 1 MG tablet Discontinued 1 mg PO DAILY July 10, 2018 12:00am October 07, 2018 8:53am diabetes Comment on above: Take 1 tablet by lauryn th daily with dinner. 3 ml insulin glargine 100 unt/ml pen injector (20 sources) Insulin Analog Start: 08-20-2023 End: 12-31-2023 Insulin Glargine (Basaglar Kwikpen U-100 Insulin) 100 unit/mL (3 mL) insulin pen Active 27 U SC EVERY EVENING 15 December 31, 2023 2:47pm Start: 05-09-2023 End: 08-20-2023 Insulin Glargine (Basaglar K wikpen U-100 Insulin) 100 unit/mL (3 mL) insulin pen Discontinued 25 U SC EVERY EVENING 15 May 09, 2023 3:08pm August 20, 2023 3:03pm Start: 01-29-2023 BASAGLAR KWIKP EN U-100 INSULIN 100 unit/mL (3 mL) Inject 27 Units subcutaneously every morning. 01/29/2023 Active Start: 01-29-2023 BASAGLAR KWIKP EN U-100 INSULIN 100 unit/mL (3 mL) Inject 25 Units subcutaneously every morning. 01/29/2023 Active Start: 01-29-2023 BASAGLAR KWIKP EN U-100 INSULIN 100 unit/mL (3 mL) Start: 01-29-2023 End: 05-09-2023 Insulin Glargine (Basaglar K wikpen U-100 Insulin) 100 unit/mL (3 mL) insulin pen Discontinued 10 U SC EVERY EVENING 09 07January 29, 2023 1:00am May 09, 2023 3:09pm MEN'S MULTI-VITAMIN ORAL (20 sources) MEN'S MULTI-MONAE MIN ORAL Take 1 tablet by mouth. Active MEN'S MULTI-MONAE MIN ORAL Take 1 tablet by mouth. 0 Active Comment on above: Take 1 tablet by lauryn th. Multiple Vitamin (MULTIVITAMIN ADULT PO) (11 sources) Multiple Vitamin (MULTIVITAMIN ADULT PO) Take by mouth. Active Multivitamin 1 EACH tablet (2 sources) Start: 07-11-2016 Multivitamin 1 EACH tablet Active 1 {tbl} PO DAILY July 11, 2016 12:00am supplement Start: 07-11-2016 Multivitamin 1 EACH tablet Active 1 {tbl} PO DAILY July 11, 2016 12:00am Multivitamin preparation (4 sources) Start: 07-11-2016 take 1 tablet by mouth once daily Multivitamin Active 1 TABLET PO DAILY July 11, 2016 12:00am oxycodone HCl/acetaminophen (PERCOCET ORAL) (20 sources) oxycodone HCl/acetaminophen (PERCOCET ORAL) Take by mouth. 0 Active polyethylene glycol 3350 83169 mg powder for oral solution (20 sources) Osmotic Laxative Start: 06-10-2024 polyethylene glycol 3350 17 gram packet Take 1 packet by mouth once daily. Dissolve dose in 4 - 8 ounces of liquid and take as directed. 06/10/2024 Active psyllium 400 mg oral capsule (3 sources) Start: 07-02-2024 End: 08-01-2024 psyllium husk (METAMUCIL) 0.4 gram cap Take 1 capsule by mouth once daily. 100 capsule 07/02/2024 08/01/2024 Active rosuvastatin calcium 10 mg oral tablet (20 sources) HMG-CoA Reductase Inhibitor Start: 09-05-2021 Rosuvastatin 10 mg tablet Active 1 {tbl} PO DAILY September 05, 2021 12:00am Start: 12-12-2020 End: 12-12-2021 take 1 tablet by mouth once daily at bedtime rosuvastatin (CRESTOR) 10 mg tablet Take 1 tablet by mouth daily at bedtime. 90 tablet 3 12/12/2020 Active Comment on above: Take 1 tablet by lauryn th daily at bedtime. SITagliptin 100 mg oral tablet (20 sources) Dipeptidyl Peptidase 4 Inhibitor Start: 07-11-2016 End: 10-11-2022 SITagliptin (ZITUVIO) 100 mg tablet Take by mouth. 07/11/2016 Active take 1 tablet by mouth once steven y SITagliptin (Januvia) 100 MG tablet Take 100 mg by mouth daily. Active Comment on above: Take 1 tablet by lauryn th twice daily. tamsulosin hydrochloride 0.4 mg oral capsule (20 sources) alpha-Adrenergic Monster Start: 07-10-2018 take 1 capsule by mouth once daily Tamsulosin 0.4 MG capsule Active 0.4 mg PO DAILY July 10, 2018 12:00am urinary issues take 0.4 mg by mouth twice daily tamsulosin (FLOMAX) 0.4 mg Take 0.4 mg by mouth two times a day. Active Comment on above: Take 0.4 mg by mouth once daily. traMADol (20 sources) Opioid Agonist tramadol HCl (UL TRAM ORAL) Take by mouth. Active vitamin b12 0.5 mg oral tablet (20 sources) Vitamin B12 Start: 07-11-2016 take 1 tablet by mouth once daily Cyanocobalamin (Vitamin B-12) 500 MCG tablet Active 500 ug PO DAILY July 11, 2016 12:00am supplement take 1 tablet by mouth once steven y cyanocobalamin (Vitamin B-12) 1000 MCG tablet Take 1,000 mcg by mouth daily. Active Comment on above: Take 1,000 mcg by [facility] once daily. Completed/Discontinued Medications Medication Drug Class(es) Dates Sig (Normalized) Sig (Original) acetaminophen 325 mg oral tablet (10 sources) Start: 07-21-2024 End: 07-22-2024 take 1 tablet by mouth every four hours as needed Start: 06-05-2024 End: 07-05-2024 take 2 tablets by mouth every eight hours acetaminophen (TYLENOL) 500 mg tablet Take 2 tablets by mouth every 8 hours. 180 tablet 06/05/2024 07/05/2024 Start: 07-24-2018 End: 07-28-2018 take 2 tablets by mouth every six hours as needed for pain Acetaminophen (Tylenol) 325 MG tablet Discontinued 650 mg PO EVERY 6 HOURS NEEDED as needed for Pain 30 0 July 24, 2018 10:24am July 28, 2018 8:53pm acetaminophen 325 mg / HYDROcodone bitartrate 5 mg oral tablet (7 sources) Opioid Agonist Start: 07-21-2024 End: 07-22-2024 take 1-2 tablets by mouth every four hours as needed Start: 07-11-2016 End: 07-14-2016 Hydrocodone-Acetaminophen (N orco 5-325 Tablet) 1 EACH tablet Discontinued 1 NMA PO EVERY 6 HOURS NEEDED as needed for Pain July 11, 2016 12:00am July 14, 2016 11:08am acetaminophen 325 mg / oxyCODONE hydrochloride 5 mg oral tablet (6 sources) Opioid Agonist Start: 07-28-2018 End: 07-31-2018 Oxycodone-Acetaminophen 1 TABLET tablet Discontinued 1 {tbl} PO EVERY 6 HOURS NEEDED as needed for Pain 12 3 0 July 28, 2018 12:00am July 30, 2018 12:00am July 31, 2018 12:06am Strain of lumbar region Strain of muscle, fascia and tendon of lower back, initial encounter Start: 07-28-2018 End: 07-31-2018 take 1 tablet by mouth every six hours as needed Oxycodone-Acetaminophen Discontinued 1 TABLET PO EVERY 6 HOURS NEEDED 12 3 July 28, 2018 12:00am July 31, 2018 12:06am dapagliflozin 10 mg oral tablet (5 sources) Sodium-Glucose Cotransporter 2 Inhibitor Start: 04-13-2022 End: 07-31-2022 take 1 tablet by mouth once daily Dapagliflozin Propanediol (Farxiga) 10 mg tablet Discontinued 10 mg PO DAILY 90 April 13, 2022 1:00am July 31, 2022 2:11pm diclofenac sodium 0.01 mg/mg topical gel (3 sources) Nonsteroidal Anti-inflammatory Drug Start: 06-05-2024 End: 07-05-2024 apply 4 g topically four times daily diclofenac (VOLTAREN ARTHRITIS PAIN) 1 % topical gel Apply 4 g to affected area four times daily. 450 g 06/05/2024 07/05/2024 diphenhydrAMINE hydrochloride 25 mg oral capsule (6 sources) Histamine-1 Receptor Antagonist Start: 06-30-2024 End: 06-30-2024 take 1 dose by mouth once 50 mg, ORAL, ONCE, 1 dose, On 06/30/24 at 1230 Start: 06-02-2024 End: 06-02-2024 take 1 dose by mouth once 50 mg, ORAL, ONCE, 1 dose, O n 06/02/24 at 1200 Start: 05-05-2024 End: 05-05-2024 take 1 dose by mouth once 50 mg, ORAL, ONCE, 1 dose, O n 05/05/24 at 1230 Start: 04-07-2024 End: 04-07-2024 take 1 dose by mouth once 50 mg, ORAL, ONCE, 1 dose, O n 04/07/24 at 1230 Start: 02-07-2024 End: 02-07-2024 take 1 dose by mouth once 50 mg, ORAL, ONCE, 1 dose, O n 02/07/24 at 1100 Start: 01-10-2024 End: 01-10-2024 take [...] 07/05/2024 doxycycline monohydrate 100 mg oral capsule (6 sources) Tetracycline -class Drug Start: 07-10-2018 End: 07-24-2018 take 1 capsule by mouth once daily Doxycycline Monohydrate 100 MG capsule Discontinued 100 mg PO DAILY 20 0 July 10, 2018 12:00am July 24, 2018 10:22am infection 1 ml epoetin khloe [id number] unt/ml injection (11 sources) Erythropoies is-stimulati ng Agent Start: 11-04-2024 End: 11-04-2024 inject 1 dose by subcutaneous injection once 80,000 Units, SUBCUTANEOUS, ONCE, 1 dose, On Sat11/04/24 at 1330, REFRIGERATE, Medication Substitution: [facility] preferred product has been replaced with the insurance mandated product Start: 10-28-2024 End: 10-28-2024 inject 1 dose by subcutaneous injection once 80,000 Units, SUBCUTANEOUS, ONCE, 1 dose, On Sat10/28/24 at 1400, REFRIGERATE, Medication Substitution: [facility] preferred product has been replaced with the insurance mandated product Start: 10-21-2024 End: 10-21-2024 inject 1 dose by subcutaneous injection once 80,000 Units, SUBCUTANEOUS, ONCE, 1 dose, On Sat10/21/24 at 1300, REFRIGERATE, Medication Substitution: [facility] preferred product has been replaced with the insurance mandated product Start: 10-14-2024 End: 10-14-2024 inject 1 dose by subcutaneous injection once 80,000 Units, SUBCUTANEOUS, ONCE, 1 dose, On Sat10/14/24 at 1300, REFRIGERATE, Medication Substitution: [facility] preferred product has been replaced with the insurance mandated product Start: 10-07-2024 End: 10-07-2024 inject 1 dose by subcutaneous injection once 60,000 Units, SUBCUTANEOUS, ONCE, 1 dose, On Sat10/07/24 at 1430, REFRIGERATE, Medication Substitution: [facility] preferred product has been replaced with the insurance mandated product Start: 09-24-2024 End: 09-24-2024 inject 1 dose by subcutaneous injection once 60,000 Units, SUBCUTANEOUS, ONCE, 1 dose, On Sat09/24/24 at 1400, REFRIGERATE, Medication Substitution: [facility] preferred product has been replaced with the insurance mandated product Start: 09-16-2024 End: 09-16-2024 inject 1 dose by subcutaneous injection once 60,000 Units, SUBCUTANEOUS, ONCE, 1 dose, On Sat09/16/24 at 1400, REFRIGERATE, Medication Substitution: [facility] preferred product has been replaced with the insurance mandated product Start: 09-09-2024 End: 09-09-2024 inject 1 dose by subcutaneous injection once 40,000 Units, SUBCUTANEOUS, ONCE, 1 dose, On Sat09/09/24 at 1300, REFRIGERATE, Medication Substitution: [facility] preferred product has been replaced with the insurance mandated product Start: 09-02-2024 End: 09-02-2024 inject 1 dose by subcutaneous injection once 40,000 Units, SUBCUTANEOUS, ONCE, 1 dose, On Sat09/02/24 at 1300, REFRIGERATE, Medication Substitution: [facility] preferred product has been replaced with the insurance mandated product Start: 08-26-2024 End: 08-26-2024 inject 1 dose by subcutaneous injection once 40,000 Units, SUBCUTANEOUS, ONCE, 1 dose, On Sat08/26/24 at 1300, REFRIGERATE, Medication Substitution: [facility] preferred product has been replaced with the insurance mandated product Start: 08-19-2024 End: 08-19-2024 inject 1 dose by subcutaneous injection once 40,000 Units, SUBCUTANEOUS, ONCE, 1 dose, On Sat08/19/24 at 1230, REFRIGERATE, Medication Substitution: [facility] preferred product has been replaced with the insurance mandated product hydrocortisone 100 mg injection (6 sources) Corticosteroid [...] 0 01/29/2023 03/05/2023 Discontinued (Changing Therapy/Dosage Form) linagliptin 5 mg oral tablet (2 sources) Dipeptidyl Peptidase 4 Inhibitor Start: 01-29-2023 End: 08-20-2023 take 1 tablet by mouth once daily Linagliptin (Tradjenta) 5 mg tablet Discontinued 5 mg PO DAILY January 29, 2023 1:00am August 20, 2023 2:53pm luspatercept-aamt 125 mg in syringe 2.5 mL [...] tablet (20 sources) Biguanide Start: 12-31-2022 End: 08-20-2023 take 1 tablet by mouth twice daily Metformin 1,000 mg tablet Discontinued 1000 mg PO TWICE A DAY 1 January 29, 2023 1:00am August 20, 2023 2:53pm Start: 06-12-2021 End: 01-22-2023 take 1 tablet by mouth twice daily metFORMIN ER (GLUCOPHAGE XR) 750 mg 24 hr tablet Take 1 tablet by mouth twice daily. 0 06/12/2021 01/22/2023 Discontinued (Changing Therapy/Dosage Form) Start: 07-11-2016 End: 07-31-2022 take 1 tablet by mouth once daily Metformin 850 MG tablet Discontinued 850 mg PO DAILY July 11, 2016 12:00am July 31, 2022 2:32pm diabetes Comment on above: Take 1 tablet by lauryn th twice daily. metFORMIN hydrochloride 1000 mg / SITagliptin 50 mg oral tablet (20 sources) Biguanide, Dipeptidyl Peptidase 4 Inhibitor Start: 09-28-2022 End: 01-22-2023 JANUMET 50-1,000 mg per tablet Start: 01-04-2022 End: 01-04-2022 Sitagliptin Phos-Metformin ( Janumet) 50-1,000 mg tablet Discontinued 1 {tbl} PO TWICE A DAY January 04, 2022 2:12pm January 04, 2022 2:25pm Start: 12-20-2021 End: 01-29-2023 Sitagliptin Phos-Metformin ( Janumet Xr) 100-1,000 mg tablet, ER multiphase 24 hr Discontinued 1 {tbl} PO DAILY 180 3 July 31, 2022 2:32pm January 29, 2023 3:38pm Start: 09-05-2021 End: 01-04-2022 Sitagliptin Phos-Metformin ( Janumet) 50-1,000 mg Tablet Discontinued 1 {tbl} PO DAILY September 05, 2021 12:00am January 04, 2022 2:13pm 2 ml ondansetron 2 mg/ml injection (1 source) Serotonin-3 Receptor Antagonist Start: 07-21-2024 End: 07-22-2024 take 4 mg intravenously every six hours as needed oxyCODONE hydrochloride 5 mg oral tablet (6 sources) Opioid Agonist Start: 07-14-2016 End: 09-15-2016 take 1 tablet by mouth every four hours as needed for pain Oxycodone 5 MG tablet Discontinued 5 mg PO EVERY 4 HOURS NEEDED as needed for Severe Pain () 30 0 July 14, 2016 12:00am September 15, 2016 [...] (6 AM). predniSONE 20 mg oral tablet (6 sources) Start: 08-04-2018 End: 10-07-2018 take 1 tablet by mouth once daily Prednisone 20 MG tablet Discontinued 20 mg PO DAILY August 04, 2018 12:00am October [...] Classification Problem Date Documented Da te Episodic/Chronic Acute cerebrovascular disease (20 sources) Cerebrovascular accident; Translations: [Cerebral infarction, unspecified] Onset: 1 06-27-2020 Chronic Cardiac dysrhythmias (1 source) Supraventricular tachycardia; Translations: [SVT (supraventricular tachycardia) (HCC)] 09-19-2023 Chronic Coagulation and hemorrhagic disorders (20 sources) Platelet count below reference range; Translations: [Thrombocytopenia, unspecified] Onset: 3 01-22-2023 Chronic Conduction disorders (1 source) Mobitz type I incomplete atrioventricular block; Translations: [Atrioventricular block, second degree] 09-19-2023 Chronic Congestive heart failure; nonhypertensive (11 sources) Heart failure; Translations: [Heart failure, unspecified] Onset: 5 07-24-2024 Chronic Deficiency and other anemia (1 source) Anemia in chronic kidney disease; Translations: [Anemia of chronic renal failure, stage 3 (moderate), unspecified whether stage 3a or 3b CKD (HCC)] Onset: 5 Chronic Deficiency and other anemia (2 sources) Other pancytopenia; Translations: [Pancytopenia (HCC)] Onset: 5 Chronic Deficiency and other anemia (4 sources) Anemia, unspecified; Translations: [Anemia, unspecified type] Onset: 4 Episodic Deficiency and other anemia (2 sources) Deficiency and other anemia; Translations: [Anemia of chronic renal failure, stage 3 (moderate), unspecified whether stage 3a or 3b CKD (HCC)] Onset: 8 Diabetes mellitus with complications (20 [...] complications] Onset: 3 04-16-2022 Chronic Diseases of white blood cells (17 sources) Leukocytosis; Translations: [Elevated white blood cell count, unspecified] Onset: 5 11-04-2018 Chronic Disorders of lipid metabolism (20 sources) Hyperlipidemia; Translations: [Hyperlipidemia, unspecified] Onset: 3 11-04-2018 Chronic Diverticulosis and diverticulitis (17 sources) Diverticulitis; Translations: [Diverticulitis of intestine, part unspecified, without perforation or abscess without bleeding] Onset: 5 11-04-2018 Chronic Essential hypertension (20 sources) Hypertensive disorder; Translations: [Essential (primary) hypertension] Onset: 5 04-16-2022 Chronic Fluid and electrolyte disorders (1 source) Hypo-osmolality and hyponatremia; Translations: [Hyponatremia] Onset: 5 Episodic Gastrointestinal hemorrhage (6 sources) Black feces symptom; Translations: [Melena] 01-27-2020 Episodic Hyperplasia of prostate (20 sources) Benign prostatic hyperplasia without lower urinary tract symptoms; Translations: [Large prostate ] Onset: 7 11-04-2018 Chronic Infective arthritis and osteomyelitis (except that caused by tuberculosis or sexually transmitted di (3 sources) Osteomyelitis of vertebra, lumbar region; Translations: [OSTEOMYELITIS VERTEBRA L] Onset: 7 Chronic Malignant neoplasm without specification of site (20 sources) Malignant tumor of unknown origin; Translations: [Malignant (primary) neoplasm, unspecified] Onset: 3 03-29-2023 Chronic Nutritional deficiencies (3 sources) Vitamin D deficiency; Translations: [Vitamin D deficiency, unspecified] Onset: 5 09-23-2024 Chronic Occlusion or stenosis of precerebral arteries (11 sources) Carotid artery stenosis; Translations: [Occlusion and stenosis of unspecified carotid artery] Onset: 5 07-24-2024 Chronic Osteoarthritis (17 sources) Osteoarthritis; Translations: [Unspecified osteoarthritis, unspecified site] Onset: 5 11-04-2018 Chronic Osteoporosis (17 sources) Age-related osteoporosis without current pathological fracture; Translations: [Osteoporosis] Onset: 7 01-04-2022 Chronic Other circulatory disease (1 source) Other specified symptoms and signs involving the circulatory and respiratory systems; Translations: [Chest congestion] Onset: 5 Episodic Other endocrine disorders (11 sources) Deficiency of testosterone biosynthesis; Translations: [Testicular hypofunction] Onset: 5 07-24-2024 Chronic Other gastrointestinal disorders (1 source) Change in bowel habit; Translations: [Change in bowel habit] Onset: 5 Episodic Other hematologic conditions (19 sources) Cytopenia; Translations: [Disease of blood and blood-forming organs, unspecified] 07-03-2022 Episodic Other hematologic conditions (2 sources) Disease of blood and blood-forming organs, unspecified; Translations: [Clonal cytopenia of undetermined significance] Onset: 5 Episodic Other liver diseases (11 sources) Lesion of liver; Translations: [Liver disease, unspecified] Onset: 5 07-24-2024 Chronic Other male genital disorders (11 sources) Male erectile dysfunction, unspecified; Translations: [Impotence of organic origin] Onset: 5 07-24-2024 Chronic Other nervous system disorders (20 sources) Expressive dysphasia; Translations: [Aphasia] Onset: 4 06-09-2023 Chronic Other nutritional; endocrine; and metabolic disorders (5 sources) Obesity; Translations: [Obesity, unspecified] 01-04-2022 Chronic Other nutritional; endocrine; and metabolic disorders (3 sources) Obesity, unspecified; Translations: [Obesity, unspecified] 04-13-2022 Chronic Other nutritional; endocrine; and metabolic disorders (20 sources) Obese class I; Translations: [Obesity, unspecified] Onset: 3 05-26-2022 Chronic Other nutritional; endocrine; and metabolic disorders (1 source) Other disorders of iron metabolism; Translations: [Iron overload] Onset: 5 Chronic Other screening for suspected conditions (not mental disorders or infectious disease) (7 sources) Patient encounter status; Translations: [Encounter for screening for malignant neoplasm of colon] Episodic Residual codes; unclassified (6 sources) History of colonoscopy; Translations: [Other specified postprocedural states] 11-04-2018 Episodic Residual codes; unclassified (6 sources) H/O Spinal surgery; Translations: [Other specified postprocedural states] 11-04-2018 Episodic Residual codes; unclassified (1 source) Disorientation, unspecified; Translations: [Confusion] Onset: 5 Episodic Septicemia (except in labor) (1 source) Sepsis, unspecified organism; Translations: [Sepsis (HCC)] Onset: 5 Episodic Spondylosis; intervertebral disc disorders; other back problems (20 sources) Infection of intervertebral disc (pyogenic), lumbar region; Translations: [Herniation of nucleus pulposus] Onset: 7 10-07-2018 Chronic Transient cerebral ischemia (20 sources) Transient cerebral ischemic attack, unspecified; Translations: [Transient cerebral ischemia] Onset: 4 06-08-2023 Chronic Unclassified (1 source) Abnormal weight loss / R63.4(ICD-10) Onset: 8 Unclassified (1 source) 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; Translations: [SENIOR CARE USE ORAL HYPOG] Onset: 7 Unclassified (1 source) Unknown / UNK(Unknown) Onset: 7 Unclassified (1 source) Acute cough; Translations: [Acute cough] Onset: 5 Unclassified (1 source) Acute bilateral low back pain without sciatica; Translations: [Acute bilateral low back pain without sciatica] Onset: 5 Unclassified (1 source) Established Patient Onset: 5 Past or Other Problems Problem Classification Problem Date Documented Da te Episodic/Chronic Abdominal hernia (8 sources) Unspecified abdominal hernia without obstruction or gangrene; Translations: [Hernia of anterior abdominal wall] Onset: 08-31-2016 11-04-2018 Episodic Acquired foot deformities (1 source) Foot drop, right foot; Translations: [Right foot drop] Onset: 07-15-2024 Episodic Bacterial infection (1 source) Personal history of Methicillin resistant Staphylococcus aureus infection; Translations: [PERS HX METHICILLIN RSIS] Onset: 08-31-2016 Episodic Chronic obstructive pulmonary disease and bronchiectasis (17 sources) Bronchitis co-occurrent with acute wheeze; Translations: [Bronchitis, not specified as acute or chronic] Onset: 07-24-2024 08-08-2020 Episodic Deficiency and other anemia (20 sources) Anemia; Translations: [Anemia, unspecified] Onset: 05-22-2022 09-05-2021 Episodic Comment on above: resolved Diseases of mouth; excluding dental (17 sources) Uvulitis; Translations: [Cellulitis and abscess of mouth] Onset: 07-24-2024 08-07-2020 Episodic Gastritis and duodenitis (11 sources) Gastritis; Translations: [Gastritis, unspecified, without bleeding] Onset: 07-24-2024 07-24-2024 Episodic Genitourinary symptoms and ill-defined conditions (1 source) Frequency of micturition; Translations: [FREQUENCY OF MICTURITION] Onset: 08-31-2016 Episodic Intestinal obstruction without hernia (1 source) Fecal impaction; Translations: [Fecal impaction (HCC)] Onset: 07-02-2024 Episodic Malaise and fatigue (20 sources) Asthenia; Translations: [Weakness] Onset: 06-12-2021 06-12-2021 Episodic Nausea and vomiting (17 sources) Vomiting; Translations: [Vomiting, unspecified] Onset: 07-24-2024 11-04-2018 Episodic Neoplasms of unspecified nature or uncertain behavior (20 sources) Myelodysplastic syndrome (clinical); Translations: [Myelodysplastic syndrome, unspecified] Onset: 07-24-2023 08-02-2023 Episodic Other acquired deformities (1 source) Other specified deforming dorsopathies, lumbar region; Translations: [OTH DEFORMING DORSOPATHI] Onset: 10-31-2016 Episodic Other aftercare (2 sources) intermediate (current) use of aspirin; Translations: [Other correction (current) drug therapy] Onset: 08-31-2016 Episodic Other aftercare (2 sources) intermediate (current) use of insulin; Translations: [Type 2 diabetes mellitus without complication, with long-term current use of insulin (HCC)] Onset: 06-09-2023 Episodic Other aftercare (20 sources) Follow-up status; Translations: [Encounter for other specified aftercare] Onset: 06-09-2024 06-09-2024 Episodic Other and unspecified benign neoplasm (16 sources) Tubular adenoma of colon; Translations: [Benign neoplasm of colon, unspecified] Onset: 07-24-2024 10-06-2021 Episodic Other circulatory disease (20 sources) History of cerebrovascular accident; Translations: [Personal history of transient ischemic attack (TIA), and cerebral infarction without residual deficits] Onset: 06-03-2024 06-10-2024 Episodic Other connective tissue disease (20 sources) Diastasis recti; Translations: [Separation of muscle (nontraumatic), other site] Onset: 01-03-2013 01-03-2013 Episodic Other diseases of kidney and ureters (3 sources) Cyst of kidney, acquired; Translations: [CYST OF KIDNEY ACQUIRED] Onset: 10-22-2016 Episodic Other endocrine disorders (17 sources) Hypotestosteronism; Translations: [Endocrine disorder, unspecified] Onset: 07-24-2024 11-04-2018 Episodic Other gastrointestinal disorders (1 source) Constipation, unspecified; Translations: [CONSTIPATION UNSPECIFIED] Onset: 08-31-2016 Episodic Other gastrointestinal disorders (11 sources) Constipation; Translations: [Constipation, unspecified] Onset: 07-24-2024 07-24-2024 Episodic Other gastrointestinal disorders (1 source) Drug induced constipation; Translations: [Drug-induced constipation] Onset: 07-02-2024 Episodic Other liver diseases (17 sources) Large liver; Translations: [Hepatomegaly, not elsewhere classified] Onset: 07-24-2024 11-04-2018 Episodic Other lower respiratory disease (17 sources) Hiccoughs; Translations: [Hiccough] Onset: 07-24-2024 10-07-2018 Episodic Other nervous system disorders (11 sources) Paresthesia; Translations: [Paresthesia of skin] Onset: 07-24-2024 07-24-2024 Episodic Other nervous system disorders (1 source) Unspecified abnormalities of gait and mobility; Translations: [Gait difficulty] Onset: 06-06-2024 Episodic Pneumonia (except that caused by tuberculosis or sexually transmitted disease) (20 sources) Pneumonia; Translations: [Pneumonia, unspecified organism] Onset: 06-11-2021 06-11-2021 Episodic Residual codes; unclassified (1 source) Other specified health status; Translations: [Decreased activities of daily living (ADL)] Onset: 06-06-2024 Episodic Skin and subcutaneous tissue infections (17 sources) Cellulitis; Translations: [Cellulitis, unspecified] Onset: 07-24-2024 10-07-2018 Episodic Spondylosis; intervertebral disc disorders; other back problems (20 sources) Intervertebral disc disorders with radiculopathy, lumbosacral region; Translations: [Spinal stenosis, lumbar region] Onset: 10-31-2016 10-07-2018 Episodic Sprains and strains (20 sources) Low back strain; Translations: [Strain of muscle, fascia and tendon of lower back, initial encounter] Onset: 07-24-2024 07-06-2016 Episodic Unclassified (1 source) Localized edema; Translations: [LOCALIZED EDEMA] Onset: 10-31-2016 Episodic Unclassified (1 source) M54.16...LUMBAR RADIUCULOPATHY Onset: 11-19-2016 Viral infection (17 sources) Viral disease; Translations: [Viral infection, unspecified] Onset: 07-24-2024 02-24-2020 Episodic Results Test Name Value Interpretation Reference Range Facility Basic metabolic 2000 panelon 01-07-2025 Anion gap [Moles/Vol] 12 mmol/L Normal 8-15 [facility] Comment on above: Order Comment: Speci men Type: BLOOD SPECIMEN Ordering Facility: [facility] Address: [address] [place] [address] Performed By: #### 2 4321-2 #### [facility] CLIA [id number] [address] [place] [address] [place] Calcium [Mass/Vol] 9.3 mg/dL Normal 8.5-10.2 [facility] Comment on above: Order Comment: Speci men Type: BLOOD SPECIMEN Ordering Facility: [facility] Address: [address] [place] [address] Performed By: #### 2 4321-2 #### [facility] CLIA [id number] [address] [place] [facility] Chloride [Moles/Vol] 104 mmol/L Normal 98-107 [facility] Comment on above: Order Comment: Speci men Type: BLOOD SPECIMEN Ordering Facility: [facility] Address: [address] [place] [address] Performed By: #### 2 4321-2 #### [facility] CLIA [id number] [address] [place] CO2 [Moles/Vol] 22 mmol/L Normal 22-30 [facility] Comment on above: Order Comment: Speci men Type: BLOOD SPECIMEN Ordering Facility: [facility] Address: [address] [place] [address] Performed By: #### 2 4321-2 #### [facility] CLIA [id number] [address] Creatinine [Mass/Vol] 0.86 mg/dL Normal 0.73-1.22 [facility] Comment on above: Order Comment: Speci men Type: BLOOD SPECIMEN Ordering Facility: [facility] Address: [address] [place] [address] Performed By: #### 2 4321-2 #### [facility] CLIA [id number] [address] eGFRcr SerPlBld CKD-EPI 2020 87 mL/min/1.73m??? Normal >=60 [facility] Comment on above: Order Comment: Mathew men Type: BLOOD SPECIMEN Ordering Facility: [facility] Address: [address] [place] [address] Result Comment: Sharon mated Glomerular Filtration Rate [...] reflect actual GFR. Performed By: #### 2 4321-2 #### [facility] CLIA [id number] [address] [place] [address] [place] Glucose [Mass/Vol] 147 mg/dL High 74-99 [facility] Comment on above: Order Comment: Mathew portillo Type: BLOOD SPECIMEN Ordering Facility: [facility] Address: [address] [place] [address] Result Comment: The [place] [employer] (ADA) provides guidance for cutoff [...] Standards of Medical Care in Diabetes 2016, [place] [employer]. Diabetes Care. 2016.39(Suppl 1). Performed By: #### 2 4321-2 #### [facility] CLIA [id number] [address] [place] [address] [place] Potassium [Moles/Vol] 4.1 mmol/L Normal 3.7-5.1 [facility] Comment on above: Order Comment: Mathew portillo Type: BLOOD SPECIMEN Ordering Facility: [facility] Address: [address] [place] [address] Performed By: #### 2 4321-2 #### [facility] CLIA [id number] [address] [place] [address] [place] Sodium [Moles/Vol] 138 mmol/L Normal 136-144 [facility] Comment on above: Order Comment: Mathew portillo Type: BLOOD SPECIMEN Ordering Facility: [facility] Address: [address] [id number] Performed By: #### 2 4321-2 #### [facility] CLIA [id number] [address] [place] [address] [place] Urea nitrogen [Mass/Vol] 13 mg/dL Normal 9-24 [facility] Comment on above: Order Comment: Mathew portillo Type: BLOOD SPECIMEN Ordering Facility: [facility] Address: [address] [place] [address] Performed By: #### 2 4321-2 #### [facility] CLIA [id number] [address] [place] [address] [place] CBC W Auto Differential pane l (Bld)on 01-07-2025 Basophils (Bld) [#/Vol] 10*3/uL Normal <0.11 [facility] Comment on above: Order Comment: Speci men Type: BLOOD SPECIMEN Ordering Facility: [facility] Address: [address] [place] [address] Performed By: #### 5 7021-8 #### [facility] CLIA [id number] [address] [place] [facility] Basophils/100 WBC (Bld) 0.5 % Normal [facility] Comment on above: Order Comment: Speci men Type: BLOOD SPECIMEN [facility] [facility] Address: [address] [place] [address] Performed By: #### 5 7021-8 #### [facility] CLIA [id number] [address] Differential cell count method Nom (Bld) Auto Normal [facility] Comment on above: Order Comment: Speci men Type: BLOOD SPECIMEN Ordering Facility: [facility] Address: [address] [place] [address] Performed By: #### 5 7021-8 #### [facility] CLIA [id number] [address] [place] Eosinophils (Bld) [#/Vol] 10*3/uL Normal <0.46 [facility] Comment on above: Order Comment: Speci men Type: BLOOD SPECIMEN Ordering Facility: [facility] Address: [facility] [place] [address] Performed By: #### 5 7021-8 #### [facility] CLIA [id number] [address] Eosinophils/100 WBC (Bld) 0.0 % Normal [facility] Comment on above: Order Comment: Speci men Type: BLOOD SPECIMEN Ordering Facility: [facility] Address: [address] [place] [address] Performed By: #### 5 7021-8 #### [facility] CLIA [id number] [address] [place] Erythrocyte distribution width (RBC) [Ratio] 17.2 % High 11.5-15.0 [facility] Comment on above: Order Comment: Speci men Type: BLOOD SPECIMEN Ordering Facility: [facility] Address: [address] [place] [address] Performed By: #### 5 7021-8 #### [facility] CLIA [id number] [address] [place] Hematocrit (Bld) [Volume fraction] 26.6 % Low 39.0-51.0 [facility] Comment on above: Order Comment: Speci men Type: BLOOD SPECIMEN Ordering Facility: [facility] Address: [address] [place] [address] Performed By: #### 5 7021-8 #### [facility] CLIA [id number] [address] [place] Hemoglobin (Bld) [Mass/Vol] 9.5 g/dL Low 13.0-17.0 [facility] Comment on above: Order Comment: Speci men Type: BLOOD SPECIMEN Ordering Facility: [facility] Address: [address] [place] [address] Performed By: #### 5 7021-8 #### [facility] CLIA [id number] [address] [place] Immature granulocytes (Bld) [#/Vol] 0.03 10*3/uL Normal <0.10 [facility] Comment on above: Order Comment: Speci men Type: BLOOD SPECIMEN Ordering Facility: [facility] Address: [address] [place] [address] Performed By: #### 5 7021-8 #### [facility] CLIA [id number] [address] Immature granulocytes/100 WBC (Bld) 0.8 % Normal [facility] Comment on above: Order Comment: Speci men Type: BLOOD SPECIMEN Ordering Facility: [facility] Address: [address] [place] [address] Performed By: #### 5 7021-8 #### [facility] CLIA [id number] [address] Lymphocytes (Bld) [#/Vol] 2.11 10*3/uL Normal 1.00-4.00 [facility] Comment on above: Order Comment: Speci men Type: BLOOD SPECIMEN Ordering Facility: [facility] Address: [address] [place] [address] Performed By: #### 5 7021-8 #### [facility] CLIA [id number] [address] Lymphocytes/100 WBC (Bld) 55.2 % Normal [facility] Comment on above: Order Comment: Speci men Type: BLOOD SPECIMEN Ordering Facility: [facility] Address: [address] [place] [address] Performed By: #### 5 7021-8 #### [facility] CLIA [id number] [address] MCH (RBC) [Entitic mass] 31.4 pg Normal 26.0-34.0 [facility] Comment on above: Order Comment: Speci men Type: BLOOD SPECIMEN Ordering Facility: [facility] Address: [address] [place] [address] Performed By: #### 5 7021-8 #### [facility] CLIA [id number] [address] MCHC (RBC) [Mass/Vol] 35.7 g/dL Normal 30.5-36.0 [facility] Comment on above: Order Comment: Speci men Type: BLOOD SPECIMEN Ordering Facility: [facility] Address: [address] [place] [address] Performed By: #### 5 7021-8 #### [facility] CLIA [id number] [address] MCV (RBC) [Entitic vol] 87.8 fL Normal 80.0-100.0 [facility] Comment on above: Order Comment: Speci men Type: BLOOD SPECIMEN Ordering Facility: [facility] Address: [address] [place], [place] [address] Performed By: #### 5 7021-8 #### [facility] CLIA [id number] [address] [place] [address] [place] Monocytes (Bld) [#/Vol] 0.39 10*3/uL Normal <0.87 [facility] Comment on above: Order Comment: Speci men Type: BLOOD SPECIMEN Ordering Facility: [facility] Address: [address] [place] [address] Performed By: #### 5 7021-8 #### [facility] CLIA [id number] [address] Monocytes/100 WBC (Bld) 10.2 % Normal [facility] Comment on above: Order Comment: Speci men Type: BLOOD SPECIMEN Ordering Facility: [facility] Address: [address] [place] [address] Performed By: #### 5 7021-8 #### [facility] CLIA [id number] [address] [place] [address] [place] Neutrophils (Bld) [#/Vol] 1.27 10*3/uL Low 1.45-7.50 [facility] Comment on above: Order Comment: Speci men Type: BLOOD SPECIMEN Ordering Facility: [facility] Address: [address] [place] [address] Performed By: #### 5 7021-8 #### [facility] CLIA [id number] [address] [place] Neutrophils/100 WBC (Bld) 33.3 % Normal [facility] Comment on above: Order Comment: Speci men Type: BLOOD SPECIMEN Ordering Facility: [facility] Address: [address] [place] [address] Performed By: #### 5 7021-8 #### [facility] CLIA [id number] [address] [place] [address] [place] Nucleated RBC (Bld) [#/Vol] 0.02 10*3/uL High <0.01 [facility] Comment on above: Order Comment: Speci men Type: BLOOD SPECIMEN Ordering Facility: [facility] Address: [address] [place] [address] Performed By: #### 5 7021-8 #### [facility] CLIA [id number] 1000 [place] [address] [place] Nucleated RBC/100 WBC (Bld) [Ratio] 0.5 /100 WBC Normal [facility] Comment on above: Order Comment: Speci men Type: BLOOD SPECIMEN Ordering Facility: [facility] Address: [address] [place] [address] Performed By: #### 5 7021-8 #### [facility] CLIA [id number] [address] [place] [address] [place] Platelet mean volume (Bld) [Entitic vol] 10.7 fL Normal 9.0-12.7 [facility] Comment on above: Order Comment: Speci men Type: BLOOD SPECIMEN Ordering Facility: [facility] Address: [address] [place] [address] Performed By: #### 5 7021-8 #### [facility] CLIA [id number] 1000 [place] [address] [place] Platelets (Bld) [#/Vol] 82 10*3/uL Low 150-400 [facility] Comment on above: Order Comment: Speci men Type: BLOOD SPECIMEN Ordering Facility: [facility] Address: [address] [place] [address] Performed By: #### 5 7021-8 #### [facility] CLIA [id number] [address] [place] [address] [place] RBC (Bld) [#/Vol] 3.03 10*6/uL Low 4.20-6.00 [facility] Comment on above: Order Comment: Speci men Type: BLOOD SPECIMEN Ordering Facility: [facility] Address: [address] [place] [address] Performed By: #### 5 7021-8 #### [facility] CLIA [id number] [address] [place] WBC (Bld) [#/Vol] 3.82 10*3/uL Normal 3.70-11.00 [facility] Comment on above: Order Comment: Speci men Type: BLOOD SPECIMEN Ordering Facility: [facility] Address: [address] [place] [address] Performed By: #### 5 7021-8 #### [facility] [id number] [address] [place] [id number] [facility] CNPAga 01-07-2025 CNPN Telephone (MEPRAD) -- JOSS OROPEZA ([id number]) 1945 M Date Time Provider Department 01/07/25 DUY CEBALLOS MEPRAD During your visit today, we recorded the following information about you: Allergies As of Date: 01/07/2025 Noted Allergy Reaction MAXIPIME (CEFEPIME) 06/24/2020 16 - Unknown Date Reviewed: 01/06/2025 Reviewed by: Ramona White, [facility] - Fully Assessed Primary Visit Diagnosis:Pneumonia of right lower lobe due to infectious organism [J18.9] Order(s):CONSULT TO [facility] [[id number]] Order #: [id number]: 1 Prescriptions as of 01/07/2025 - BASAGLAR KWIKPEN U-100 INSULIN 100 unit/mL (3 mL) Inject 35 Units subcutaneously every morning. - guaiFENesin (MUCINEX) 600 mg 12 hr tablet Take 2 tablets by mouth every 12 hours. - glimepiride (AMARYL) 4 mg tablet Take 1 tablet by mouth two times a day with meals. - lidocaine-prilocaine (EMLA) 2.5-2.5 % cream Apply to anticipated injection site 30 minutes before injection - deferasirox (JADENU) 360 mg tab Take 4 tablets (1440mg) by mouth once daily. Take on an empty stomach. - aspirin 81 mg chewable tablet Take 81 mg by mouth once daily. - BD CRISTAL 2ND GEN PEN NEEDLE 32 gauge x - rosuvastatin (CRESTOR) 10 mg tablet Take 1 tablet by mouth daily at bedtime. - MEN'S MULTI-VITAMIN ORAL Take 1 tablet by mouth. - cyanocobalamin (VITAMIN B-12) 1,000 mcg tab Take 1,000 mcg by mouth once daily. - tamsulosin (FLOMAX) 0.4 mg Take 0.4 mg by mouth once daily. - finasteride (PROSCAR) 5 mg tablet Take 5 mg by mouth daily at bedtime. - alendronate (FOSAMAX) 70 mg tablet Take 70 mg by mouth one time a week. In AM with cup of water on empty stomach. Nothing else by mouth and stay upright for 30 min. Facility-Administered Medications as of 01/07/2025 - sodium chloride 7% solution 4 mL INHALATION ONLY - ipratropium-albuterol 3 mL nebulizer solution (DUONEB) - guaiFENesin-dextromethorph an 100-10 mg/5 mL 10 mL oral liquid (ROBITUSSIN DM) - aspirin 81 mg chewable tab(s) - rosuvastatin 10 mg tab(s) (CRESTOR) - insulin glargine 35 Units pen (long acting) - glimepiride 4 mg tab(s) (AMARYL) - guaiFENesin 1,200 mg ER tab(s) (MUCINEX) - alendronate 70 mg tab(s) (FOSAMAX) - deferasirox tab 1,440 mg - finasteride 5 mg tab(s) (PROSCAR) - tamsulosin 0.4 mg cap(s) (FLOMAX) - dextrose 40 % 15 g - glucagon 1 mg injection - dextrose 10% iv bolus - NaCl 0.9% iv flush bag - acetaminophen 650 mg tab(s) (TYLENOL) - miconazole 2 % 1 application topical powder - piperacillin-tazobactam iv piggyback 3.375 g in dextrose (iso-osmotic) 50 mL (ZOSYN) - NaCl 0.9% iv infusion - insulin lispro injection (rapid acting) (ADMElog) Problem List As Of Date 01/07/2025 Noted Resolved Diastasis recti [M62.08] 01/03/2013 Stroke (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] 06/24/2020 01/02/2025 Pneumonia [J18.9] 06/11/2021 01/02/2025 Generalized weakness [R53.1] 06/12/2021 Anemia [D64.9] 05/22/2022 Type 2 diabetes mellitus, with long-term curren*05/22/2022 Dyslipidemia [E78.5] 05/22/2022 Obesity, Class I, BMI 30-34.9 [E66.811] 05/26/2022 Cancer of unknown origin (HCC) [C80.1] 12/11/2022 01/02/2025 Thrombocytopenia [D69.6] 01/22/2023 01/02/2025 TIA (transient ischemic attack) [G45.9] 06/08/2023 01/02/2025 BPH (benign prostatic hyperplasia) [N40.0] 06/09/2023 Expressive aphasia [R47.01] 06/09/2023 01/02/2025 MDS (myelodysplastic syndrome) (HCC) [D46.9] 07/24/2023 Pancytopenia (HCC) [D61.818] 03/05/2024 H/O: stroke [Z86.73] 06/03/2024 Acute midline low back pain without sciatica [M*06/03/2024 01/02/2025 Acute bilateral low back pain without sciatica *06/03/2024 01/02/2025 Intractable back pain [M54.9] 06/06/2024 01/02/2025 Aftercare [Z51.89] 06/09/2024 01/02/2025 Hyponatremia [E87.1] 12/19/2024 12/21/2024 Cough [R05.9] 12/19/2024 01/02/2025 Multifocal pneumonia [J18.8] 01/02/2025 Acute respiratory failure with hypoxemia (HCC) *01/02/2025 Sepsis (HCC) [A41.9] 01/02/2025 Elevated lactic acid level [R79.89] 01/04/2025 Aspiration into airway [T17.908A] 01/05/2025 Encounter Status:Closed by DUY CEBALLOS on 01/07/25 [facility] THERAPY NTon 01-07-2025 THERAPY NT HNO ID: [id number] Author: VICTORINO LUCIO, PT Service: Physical Therapy Author Type: Physical Therapist Type: Therapy (PT/OT/Speech/Resp) Filed: 01/07/2025 11:15 Note Text: -- Summary: PT evaluation -- Physical Therapy Evaluation Summary SERVICE DATE: 01/07/2025 SERVICE TIME: 1023 to 1101 ROOM: [place] [address] PT 6 Clicks Score: 19 DISCHARGE RECOMMENDATIONS Outpatient PT Recommended Discharge Disposition Comments: for high level balance and strengthening, fall prevention program Anticipated Discharge Needs: Supervision at Home, Physical Assist at Home Physical Assist at Home for: Cleaning, Laundry, Meals, Shopping, Transportation, Medication Management Supervision at Home due to: Other: See Comment (initially for safety) Recommended Discharge Equipment: No equipment needs anticipated ASSESSMENT Response to Therapy Interventions: Good Participation in Activities, Improved Tolerance for Activity, On-Track to Achieve Discharge Goals, Notable Progression with Functional Activities/Skills, Requires Additional Time to Complete Activities pt is pleasant and cooperative throughout, appropriately follows cues, willing to participate and improve; overall CGA for all mobility without device, demonstrates appropriate understanding of strengths and limitations; tolerates supine, seated and standing therapeutic exercises without incident PRECAUTIONS Diabetic, Fall Risk, Other: See Comments standard CURRENT HOSPITAL COURSE Pt presented for inpatient pulmonology evaluation, + cough, abnormal CT scan chest with B lower lobe airspace disease suggestive of PNA, possible dysphagia/aspiration into airway; admitted for sepsis and pneumonia Relevant Past Medical History: MDS, iron overload, pancytopenia, DMII, hyperlipidemia, CVA, anemia, BPH HOME LIVING Patient Lives With: Spouse Assistance Available: PRN (per pt, spouse has own health impairments as well) Entry To Home: Stairs, With Rail Number Of Stairs Into Home: 5 Number Of Stairs To Bed/Bath: 13--but has stair lift Stairs to Bed/Bath with: Stair Lift (has 2 stair lifts to upper level and basement; spouse primarily uses however, pt always typically does the stairs) Tub/Shower Type: Walk in shower with hand held shower, grab bars and built in seat, or tub/shower; pt uses walk in shower Laundry: or family can complete; has 2 laundry locations, one in basement and other main level, spouse typically completes Equipment Owned: Walker- Wheeled, Hand Held Shower, Grab Bars- Shower, Other: See Comment, Grab Bars- Toilet (built in shower seat) PRIOR FUNCTIONAL LEVEL Within Functional Limits 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[employer] pt reports overall independent with functional mobility without a device, does take walker if going to be walking far distances in community typically such as MD appts, + driving, sleeps in a recliner chair, indep with ADLs, no falls in the last 6 months; spouse primarily does laundry, cooking and cleaning, pt and spouse share med management SUBJECTIVE Pt resting at approach, no acute distress noted, pleasant and cooperative, oriented x 3, denies pain, agreeable to PT evaluation/treatment, ok per RN for PT THERAPY DIAGNOSIS Reduced mobility-other TREATMENT INTERVENTIONS Evaluation, Therapeutic Activity (35401), Therapeutic Exercise (03959), Gait Training (50540) Timed Code Treatment (minutes): 23 Skilled Treatment Time (minutes): 38 Completes 15 repetitions (unless otherwise indicated) of the following supine therapeutic exercises on B LE with assistance as indicated: hip abduction with quad set (minimal to no assistance) , SLR with quad set (minimal to no assistance). Patient completes the following standing therapeutic exercises bilaterally with B UE support x 15 repetitions, contact guard assist: hip flexion, heel raises. Completes 15 repetitions (unless otherwise noted) of the following seated therapeutic exercises on B LE (unless otherwise indicated) with assistance as indicated sitting up at EOB: LAQs (no assistance), lightly resisted isometric hip abduction bilaterally, lightly resisted isometric hip adduction bilaterally. Isometrics x 3-5 second hold, light manual resistance verbal, visual and tactile cues initially and prn thereafter for technique and for patient to assist throughout as able. Appropriately follows cues throughout. Rest breaks provided secondary to fatigue/weakness. Education to patient on benefits/rationale for exercises Skilled judgment was provided in selection of appropriate interventions. TRAINING AND EDUCATION PROVIDED Advanced Balance Activities, Bed Mobility, Benefits of In-Hospital Mobility, Discharge Planning, Exercise Program, Expected Functional Level, Falls Prevention, Gait Pattern, Reduction of Deviations, Home Safety, (more content not included)... Normal [facility] Basic metabolic 2000 panelon 01-06-2025 Anion gap [Moles/Vol] 12 mmol/L Normal 8-15 [facility] Comment on above: Order Comment: Speci men Type: BLOOD SPECIMEN Ordering Facility: [facility] Address: [address] [place] [address] Performed By: #### 2 4321-2 #### [facility] CLIA [id number] [address] [place] [address] [place] Calcium [Mass/Vol] 8.9 mg/dL Normal 8.5-10.2 [facility] Comment on above: Order Comment: Speci men Type: BLOOD SPECIMEN Ordering Facility: [facility] Address: [address] [place] [address] Performed By: #### 2 4321-2 #### [facility] CLIA [id number] [address] [place] [address] [place] Chloride [Moles/Vol] 103 mmol/L Normal 98-107 [facility] Comment on above: Order Comment: Speci men Type: BLOOD SPECIMEN Ordering Facility: [facility] Address: [address] [place] [address] Performed By: #### 2 4321-2 #### [facility] CLIA [id number] [address] [place] [address] [place] CO2 [Moles/Vol] 21 mmol/L Low 22-30 [facility] Comment on above: Order Comment: Speci men Type: BLOOD SPECIMEN Ordering Facility: [facility] Address: [address] [place] [address] Performed By: #### 2 4321-2 #### [facility] CLIA [id number] [address] [place] [address] [place] Creatinine [Mass/Vol] 0.86 mg/dL Normal 0.73-1.22 [facility] Comment on above: Order Comment: Mathew portillo Type: BLOOD SPECIMEN Ordering Facility: [facility] Address: [address] [place] [address] Performed By: #### 2 4321-2 #### [facility] CLIA [id number] [address] [place] [address] [place] eGFRcr SerPlBld CKD-EPI 2020 87 mL/min/1.73m??? Normal >=60 [facility] Comment on above: Order Comment: Mathew portillo Type: BLOOD SPECIMEN Ordering Facility: [facility] Address: [address] [place] [address] Result Comment: Sharon mated Glomerular Filtration Rate [...] reflect actual GFR. Performed By: #### 2 4321-2 #### [facility] CLIA [id number] [address] [place] [address] [place] Glucose [Mass/Vol] 193 mg/dL High 74-99 [facility] Comment on above: Order Comment: Mathew lindsey Type: BLOOD SPECIMEN Ordering Facility: [facility] Address: [address] [place] [address] Result Comment: The [place] [employer] (ADA) provides guidance for cutoff [...] Standards of Medical Care in Diabetes 2016, [place] [employer]. Diabetes Care. 2016.39(Suppl 1). Performed By: #### 2 4321-2 #### [facility] CLIA [id number] [address] [place] Potassium [Moles/Vol] 4.2 mmol/L Normal 3.7-5.1 [facility] Comment on above: Order Comment: Speci men Type: BLOOD SPECIMEN Ordering Facility: [facility] Address: [address] [place] [address] Performed By: #### 2 4321-2 #### [facility] CLIA [id number] [address] [place] Sodium [Moles/Vol] 136 mmol/L Normal 136-144 [facility] Comment on above: Order Comment: Speci men Type: BLOOD SPECIMEN Ordering Facility: [facility] Address: [address] [place] [address] Performed By: #### 2 4321-2 #### [facility] CLIA [id number] [address] [place] Urea nitrogen [Mass/Vol] 15 mg/dL Normal 9-24 [facility] Comment on above: Order Comment: Speci men Type: BLOOD SPECIMEN Ordering Facility: [facility] Address: [address] [place] [address] Performed By: #### 2 4321-2 #### [facility] CLIA [id number] [address] [place] CBC panel Auto (Bld)on 01-06 Erythrocyte distribution width (RBC) [Ratio] 18.3 % High 11.5-15.0 [facility] Comment on above: Order Comment: Speci men Type: BLOOD SPECIMEN Ordering Facility: [facility] Address: [address] [place] [address] Performed By: #### 5 8410-2 #### [facility] CLIA [id number] [address] Hematocrit (Bld) [Volume fraction] 19.8 % Low 39.0-51.0 [facility] Comment on above: Order Comment: Speci men Type: BLOOD SPECIMEN Ordering Facility: [facility] Address: [address] [place] [address] Performed By: #### 5 8410-2 #### [facility] CLIA [id number] [address] OF [facility] Hemoglobin (Bld) [Mass/Vol] 6.6 g/dL Low 13.0-17.0 [facility] Comment on above: Order Comment: Speci men Type: BLOOD SPECIMEN Ordering Facility: [facility] Address: [address] [place] [address] Performed By: #### 5 8410-2 #### [facility] CLIA [id number] [address] MCH (RBC) [Entitic mass] 29.3 pg Normal 26.0-34.0 [facility] Comment on above: Order Comment: Speci men Type: BLOOD SPECIMEN Ordering Facility: [facility] Address: [address] [place] [address] Performed By: #### 5 8410-2 #### [facility] CLIA [id number] [address] MCHC (RBC) [Mass/Vol] 33.3 g/dL Normal 30.5-36.0 [facility] Comment on above: Order Comment: Speci men Type: BLOOD SPECIMEN Ordering Facility: [facility] Address: [address] [place] [address] Result Comment: Cold Agglutinin, Incubated at 37 degrees. Performed By: #### 5 8410-2 #### [facility] CLIA [id number] [address] MCV (RBC) [Entitic vol] 88.0 fL Normal 80.0-100.0 [facility] Comment on above: Order Comment: Speci men Type: BLOOD SPECIMEN Ordering Facility: [facility] Address: [address] [place] [address] Performed By: #### 5 8410-2 #### [facility] CLIA [id number] [address] Nucleated RBC (Bld) [#/Vol] 0.02 10*3/uL High <0.01 [facility] Comment on above: Order Comment: Speci men Type: BLOOD SPECIMEN Ordering Facility: [facility] Address: [address] [place] [address] Performed By: #### 5 8410-2 #### [facility] CLIA [id number] [address] [place] Platelet mean volume (Bld) [Entitic vol] 11.3 fL Normal 9.0-12.7 [facility] Comment on above: Order Comment: Speci men Type: BLOOD SPECIMEN Ordering Facility: [facility] Address: [address] [place] [address] Performed By: #### 5 8410-2 #### [facility] CLIA [id number] [address] [place] Platelets (Bld) [#/Vol] 79 10*3/uL Low 150-400 [facility] Comment on above: Order Comment: Speci men Type: BLOOD SPECIMEN Ordering Facility: [facility] Address: [address] [place] [address] Result Comment: No c lot detected. Performed By: #### 5 8410-2 #### [facility] CLIA [id number] [address] RBC (Bld) [#/Vol] 2.25 10*6/uL Low 4.20-6.00 [facility] Comment on above: Order Comment: Speci men Type: BLOOD SPECIMEN Ordering Facility: [facility] Address: [address] [place] [address] Performed By: #### 5 8410-2 #### [facility] CLIA [id number] [address] OF [place] WBC (Bld) [#/Vol] 3.65 10*3/uL Low 3.70-11.00 [facility] Comment on above: Order Comment: Speci men Type: BLOOD SPECIMEN Ordering Facility: [facility] Address: [address] [place] [address] Performed By: #### 5 8410-2 #### [facility] CLIA [id number] [address] OF [facility] CONSULTon 01-06-2025 CONSULT HNO ID: [id number] Author: YUNIER RASHEED MD Service: Hematology/Oncology Author Type: Physician Type: Consults Filed: 01/06/2025 16:18 Note Text: Attending Attestation Note I have personally performed a face to face assessment of the patient and have reviewed the MEGHNA note. I performed a substantive portion of the visit. Joss Oropeza is a 79 year old male with MDS. We are consulted for MDS with anemia and transfusion needs. PE: Blood pressure 156/71, pulse 91, temperature 36.6 ?C (97.8 ?F), temperature source Oral, resp. rate 13, height 176.5 cm (5' 9.5), weight 95.7 kg (211 lb), SpO2 94%. ECO. Well appearing, NAD. NCAT, EOMI, MMM, Oral cavity and oropharynx clear. no apparent cervical, supraclavicular, axillary LAD. No inc WOB, equal chest rise. Abd non-distended, no apparent HSM. No rashes, lesions, large bruises. Extremities WWP, no LE edema. No clubbing, cyanosis, or edema. 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 Next planned treated with Decitabine and Procrit which he has not yet started. He presented with Shortness of Breath and CT-chest showed patchy airspace opacity in the dependent right middle and lower lobes concerning for developing or resolving pneumonia. -Management will primarily be supportive care with transfusions to improve counts and treat infections in order to get him discharged so he can start next line of therapy -Pneumonia management per primary and pulmonology - plan to transfuse PRBC for Hgb < 7.0 or higher if symptomatic or bleeding - plan to transfuse Platelets for Plt < 10 or Plt < 20 if febrile, or Plt < 50 if actively bleeding - He will follow up with established hematologists Dr. Noriega at [facility] and Dr. Frank at [facility] Signature: Kevin Soni MD Date/Time: January 06, 2025 4:12 PM Care Coordination Prolonged Service: I personally spent greater than 40 minutes total, on [id number] counseling and/or coordination of care of this patient. HEMATOLOGY/ONCOLOGY INITIAL CONSULT NOTE SERVICE DATE: 01/06/2025 REASON FOR CONSULT: pt with myelodysplasia now with anemia getting transfused REQUESTING PHYSICIAN: Almita Carr MD PRIMARY CARE PHYSICIAN: German Robertson MD Subjective Mr. Oropeza is a 79 year old male with PMHx of MDS (noted on BMBx 06/01/2022, s/p tx with Luspatercept and Imetelstat (Rytelo); repeat BMBx 07/21/2024 did not change. Currently tx with Procrit, Dacogen, prn PRBC transfusions ~2x per month, and Jadenu for iron overload; follows with Dr. Noriega at [facility] and Dr. Annie Frank at [facility]), CVA, HLD, and T2DM who presented to [facility] ED on 01/01/2025 with cough, shortness of breath and weakness. CXR showed no evidence of significant cardiopulmonary disease. CTA chest negative for PE, showed patchy airspace opacity in the dependent right middle and lower lobes concerning for developing or resolving pneumonia. Interval nonexpansile focal heterogeneity of the mid sternum, which may be related to the myelodysplastic syndrome, other etiology not excluded but no evidence of fracture. Labs in ED significant for glucose 296, lactate 2.4, procalcitonin 0.20, DEON 18, WBC 3.69, Hgb 8.5 (baseline 6.5-7), platelets 91 (baseline 80-90s). Patient started on broad-spectrum IV abx and transferred to [facility] to be admitted for further management. Hematology/oncology has been consulted for MDS now with anemia requiring transfusion. PAST MEDICAL HISTORY Diagnosis Date Cancer [...] Onset Stroke Mother Ischemic Heart Disease Father SOCIAL HISTORY[1] Prescriptions Prior to Admission[2] Current Facility-Administered Medications Medication Dose Route Frequency aspirin 81 mg chewable tab(s) 81 mg ORAL DAILY rosuvastatin 10 mg tab(s) (CRESTOR) 10 mg ORAL AT BEDTIME insulin glargine 35 Units pen (long acting) 35 Units SUBCUTANEOUS DAILY (9 AM) glimepiride 4 mg tab(s) (AMARYL) 4 mg ORAL BID w MEALS guaiFENesin 1,200 mg ER tab(s) (MUCINEX) 1,200 mg ORAL q 12 (more content not included)... [facility] CONSULT PROGon 01-06-2025 CONSULT PROG HNO ID: [id number] Author: KESHAV BENITEZ APRN.MEDICAL RECORD LIBRARIAN Service: Pulmonary Disease Author Type: Nurse Practitioner Type: Consult Progress Note Filed: 01/06/2025 13:57 Note Text: [facility] INPATIENT CONSULT PROGRESS NOTE SERVICE DATE: 01/06/2025 ASSESSMENT AND RECOMMENDATIONS: Abnormal chest CT with bilateral lobe airspace disease suggestive of pneumonia Possible dysphagia/aspiration into airway Anemia Persistent lactate elevation - Will need speech evaluation/swallow study to determine dysphagia as cause for recurrent pneumonia - Bronchodilators as prescribed - Duoneb q4, hypertonic saline BID - Bronchopulmonary hygiene, OOB as tolerated, cough and deep breathe, IS and acapella - Mucinex BID - Antibiotic therapy - Consider repeat Chest CT in 6-8 weeks SUBJECTIVE INTERVAL HPI: Joss Oropeza is a 79 year old male who reports he is feeling better. He continues to have a productive cough with clear sputum production. He has intermittent wheezing and chest tightness during these coughing fits as well. Denies overnight events. Denies fevers, chills, night sweats, chest pain, SOB, abdominal pain, n/v/d, or leg swelling. MEDICATIONS: Current Facility-Administered Medications Medication Dose Route Frequency sodium chloride 7% solution 4 mL INHALATION ONLY 4 mL INHALATION BID ipratropium-albuterol 3 mL nebulizer solution (DUONEB) 3 mL INHALATION QID guaiFENesin-dextromethorph an 100-10 mg/5 mL 10 mL oral liquid (ROBITUSSIN DM) 10 mL ORAL q 4 H PRN aspirin 81 mg chewable tab(s) 81 mg ORAL DAILY rosuvastatin 10 mg tab(s) (CRESTOR) 10 mg ORAL AT BEDTIME insulin glargine 35 Units pen (long acting) 35 Units SUBCUTANEOUS DAILY (9 AM) glimepiride 4 mg tab(s) (AMARYL) 4 mg ORAL BID w MEALS guaiFENesin 1,200 mg ER tab(s) (MUCINEX) 1,200 mg ORAL q 12 H deferasirox tab 1,440 mg 1,440 mg ORAL DAILY finasteride 5 mg tab(s) (PROSCAR) 5 mg ORAL AT BEDTIME tamsulosin 0.4 mg cap(s) (FLOMAX) 0.4 mg ORAL DAILY dextrose 40 % 15 g 15 g ORAL PRN Or glucagon 1 mg injection 1 mg INTRAMUSCULAR PRN Or dextrose 10% iv bolus 12.5 g INTRAVENOUS PRN NaCl 0.9% iv flush bag 20 mL INTRAVENOUS PRN acetaminophen 650 mg tab(s) (TYLENOL) 650 mg ORAL q 6 H PRN miconazole 2 % 1 application topical powder 1 application TOPICAL BID piperacillin-tazobactam iv piggyback 3.375 g in dextrose (iso-osmotic) 50 mL (ZOSYN) 3.375 g INTRAVENOUS q 6 H NaCl 0.9% iv infusion 75 mL/hr INTRAVENOUS CONTINUOUS insulin lispro injection (rapid acting) (ADMElog) SUBCUTANEOUS w MEALS CURRENT ALLERGIES: ALLERGIES Allergen Reactions Maxipime [Cefepime] Unknown Patient Vitals for the past 24 hrs: BP Temp Temp src Pulse Resp SpO2 01/06/25 1337 171/81 36.7 ?C (98.1 ?F) Oral 88 15 96 % 01/06/25 1314 152/76 36.9 ?C (98.5 ?F) Oral 81 18 95 % 01/06/25 1137 -- -- -- 81 16 99 % 01/06/25 1120 -- -- -- 83 16 95 % 01/06/25 1107 143/67 36.6 ?C (97.9 ?F) Oral 81 17 94 % 01/06/25 1048 134/64 36.9 ?C (98.5 ?F) Oral 79 16 94 % 01/06/25 0734 142/66 36.9 ?C (98.4 ?F) Oral 83 12 95 % 01/06/25 0717 -- -- -- 81 16 94 % 01/05/25 2318 130/57 36.4 ?C (97.5 ?F) Oral 93 19 93 % 01/05/25 1950 -- -- -- 84 16 -- 01/05/25 1935 -- -- -- 80 16 -- 01/05/25 1933 115/62 36.6 ?C (97.9 ?F) Oral 82 18 97 % 01/05/25 1709 112/53 36.8 ?C (98.2 ?F) Oral 85 18 98 % 01/05/25 1533 -- -- -- 88 18 -- 01/05/25 1520 -- -- -- 88 16 -- Intake/Output Summary (Last 24 hours) at 01/06/2025 1350 Last data filed at 01/06/2025 1315 Gross per 24 hour Intake 3266 ml Output 1900 ml Net 1366 ml OBJECTIVE PHYSICAL EXAM: BP 171/81 Pulse 88 Temp (Src) 98.1 (Oral) Resp 15 Ht 5' 9.5 (1.77m) Wt 211 lb (95.7kg) SpO2 96% BMI 30.72 kg/(m2). O2 Therapy: Room Air General appearance: well appearing, alert, and in no acute distress Skin: skin color, texture, turgor normal, no rashes or lesions Lungs: lungs clear to auscultation no wheezing or rhonchi Heart: RRR without murmur, gallop, or rubs. No ectopy Musculoskeletal: Edema: 1+ Neuro: Oriented X 3 Cooperative with exam, answerers questions appropriately. DATA Diagnostic tests reviewed for today's visit, films/specimens were personally reviewed by me: Most recent labs and imaging results. Most recent labs Most recent imaging CBC, Coags, BMP, Mg, Phos Recent Labs 01/06/25 0433 01/05/25 0552 01/04/25 0438 WBC 3.65* 3.91 3.49* HB 6.6* 7.4* 7.8* HCT 19.8* 21.7* 23.2* PLT 79* 86* 94* NA 136 135* 136 K 4.2 3.9 4.0 CHLOR 103 104 102 CO2 21* 21* 19* BUN 15 12 13 CREAT 0.86 0.85 0.82 GLUC 193* 117* 135* CA 8.9 8.8 9.0 Liver Function, Amylase, AND Lipase Recent Labs 01/05/25 0552 01/04/25 0724 01/04/25 0438 LACT 2.1 2.4* 2.4* Total time spent in patient care includes but is not limited to patient/ family discussions, collaborative discussions with other healthcare providers, review of medical records, review of (more content not included)... [facility] THERAPY NTon 01-06-2025 THERAPY NT HNO ID: [id number] Author: VIVIENNE ADAMS [employer] Service: Speech/Swallow Author Type: Speech Language Pathologist Type: Therapy (PT/OT/Speech/Resp) Filed: 01/06/2025 11:29 Note Text: -- Summary: [employer] Missed Visit -- SPEECH THERAPY MISSED VISIT SERVICE DATE: 01/06/2025 SERVICE TIME: 1128 ROOM: [place] [address] Patient not seen due to Test / Procedure. -attempted to schedule the Modified Barium Swallowing Exam -pt unavailable due to blood transfusion -will reattempt to schedule when all disciplines (speech language pathology, imaging and patient) are available. SIGNATURE: Vivienne Schultz [employer] PATIENT NAME: Joss Oropeza DATE: January 06, 2025 TIME: 11:28 AM Normal [facility] TYPE + SCREENon 01-06-2025 ABO B Normal [facility] Comment on above: Order Comment: Speci men Type: BLOOD SPECIMENOrdering Facility: [facility] Address: [facility] [place] [address] Performed By: #### T SCR ####[facility] [id number] [place] [address] [facility] [place] Rh Nom (Bld) Positive Normal [facility] Comment on above: Order Comment: Speci men Type: BLOOD SPECIMENOrdering Facility: [facility] Address: [address] [place], [place] [address], [place] [address] Performed By: #### T SCR ####[facility] [id number] [place] [id number] [facility] TYPE AND SCREEN EXPIRATION 01/09/2025 23:59 Normal [facility] Comment on above: Order Comment: Speci men Type: BLOOD SPECIMENOrdering Facility: [facility] Address: [address] [place] [address] Performed By: #### T SCR ####[facility] [id number] [place] [address] [place] Basic metabolic 2000 panelon 01-05-2025 Anion gap [Moles/Vol] 10 mmol/L Normal 8-15 [facility] Comment on above: Order Comment: Speci men Type: BLOOD SPECIMEN Ordering Facility: [facility] Address: [address] [place] [address] Performed By: #### 2 4321-2 #### [facility] CLIA [id number] 1000 [place] [address] [place] Calcium [Mass/Vol] 8.8 mg/dL Normal 8.5-10.2 [facility] Comment on above: Order Comment: Speci men Type: BLOOD SPECIMEN Ordering Facility: [facility] Address: [address] [place] [address] [place] [address] Performed By: #### 2 4321-2 #### [facility] CLIA [id number] [address] [place] [address] [place] Chloride [Moles/Vol] 104 mmol/L Normal 98-107 [facility] Comment on above: Order Comment: Speci men Type: BLOOD SPECIMEN Ordering Facility: [facility] Address: [address] [place] [address] Performed By: #### 2 4321-2 #### [facility] CLIA [id number] [address] [place] [address] [place] CO2 [Moles/Vol] 21 mmol/L Low 22-30 [facility] Comment on above: Order Comment: Speci men Type: BLOOD SPECIMEN Ordering Facility: [facility] Address: [address] [place] [address] Performed By: #### 2 4321-2 #### [facility] CLIA [id number] 1000 [place] [address] [place] Creatinine [Mass/Vol] 0.85 mg/dL Normal 0.73-1.22 [facility] Comment on above: Order Comment: Speci men Type: BLOOD SPECIMEN Ordering Facility: [facility] Address: [address] [place] [address] Performed By: #### 2 4321-2 #### [facility] CLIA [id number] [address] [place] eGFRcr SerPlBld CKD-EPI 2020 87 mL/min/1.73m??? Normal >=60 [facility] Comment on above: Order Comment: Speci men Type: BLOOD SPECIMEN Ordering Facility: [facility] Address: [address] [place] [address] Result Comment: Sharon mated Glomerular Filtration Rate [...] reflect actual GFR. Performed By: #### 2 4321-2 #### [facility] CLIA [id number] [address] [place] [address] [place] Glucose [Mass/Vol] 117 mg/dL High 74-99 [facility] Comment on above: Order Comment: Speci men Type: BLOOD SPECIMEN Ordering Facility: [facility] Address: [address] [place] [address] Result Comment: The [place] Diabetes Association (ADA) provides guidance for cutoff [...] Standards of Medical Care in Diabetes 2016, [place] [employer]. Diabetes Care. 2016.39(Suppl 1). Performed By: #### 2 4321-2 #### [facility] CLIA [id number] [address] [place] Potassium [Moles/Vol] 3.9 mmol/L Normal 3.7-5.1 [facility] Comment on above: Order Comment: Mathew men Type: BLOOD SPECIMEN Ordering Facility: [facility] Address: [address] [place] [address] Performed By: #### 2 4321-2 #### [facility] CLIA [id number] [address] Sodium [Moles/Vol] 135 mmol/L Low 136-144 [facility] Comment on above: Order Comment: Mathew men Type: BLOOD SPECIMEN Ordering Facility: [facility] Address: [address] [place] [address] Performed By: #### 2 4321-2 #### [facility] CLIA [id number] [address] [place] [address] [place] Urea nitrogen [Mass/Vol] 12 mg/dL Normal 9-24 [facility] Comment on above: Order Comment: Mathew men Type: BLOOD SPECIMEN Ordering Facility: [facility] Address: [address] [place] [address] Performed By: #### 2 4321-2 #### [facility] CLIA [id number] [address] CBC panel Auto (Bld)on 01-05 Erythrocyte distribution width (RBC) [Ratio] 17.3 % High 11.5-15.0 [facility] Comment on above: Order Comment: Speci men Type: BLOOD SPECIMENOrdering Facility: [facility] Address: [address] [place] [address] Performed By: #### 5 8410-2 ####[facility] [id number] [address] Hematocrit (Bld) [Volume fraction] 21.7 % Low 39.0-51.0 [facility] Comment on above: Order Comment: Speci men Type: BLOOD SPECIMENOrdering Facility: [facility] Address: [address] [place] [address] Performed By: #### 5 8410-2 ####[facility] [id number] [address] Hemoglobin (Bld) [Mass/Vol] 7.4 g/dL Low 13.0-17.0 [facility] Comment on above: Order Comment: Speci men Type: BLOOD SPECIMENOrdering Facility: [facility] Address: [address] [place] [address] Performed By: #### 5 8410-2 ####[facility] [id number] [address] MCH (RBC) [Entitic mass] 30.0 pg Normal 26.0-34.0 [facility] Comment on above: Order Comment: Speci men Type: BLOOD SPECIMENOrdering Facility: [facility] Address: [address] [place] [address] Performed By: #### 5 8410-2 ####[facility] [id number] [address] MCHC (RBC) [Mass/Vol] 34.1 g/dL Normal 30.5-36.0 [facility] Comment on above: Order Comment: Speci men Type: BLOOD SPECIMENOrdering Facility: [facility] Address: [address] [place] [address] Performed By: #### 5 8410-2 ####[facility] [id number] [place] [id number] [place] MCV (RBC) [Entitic vol] 87.9 fL Normal 80.0-100.0 [facility] Comment on above: Order Comment: Speci men Type: BLOOD SPECIMENOrdering Facility: [facility] Address: [address] [place] [address] Performed By: #### 5 8410-2 ####[facility] [id number] [address] [place] Nucleated RBC (Bld) [#/Vol] 10*3/uL Normal <0.01 [facility] Comment on above: Order Comment: Speci men Type: BLOOD SPECIMENOrdering Facility: [facility] Address: [address] [place] [address] Performed By: #### 5 8410-2 ####[facility] [id number] [address] [place] Platelet mean volume (Bld) [Entitic vol] 10.4 fL Normal 9.0-12.7 [facility] Comment on above: Order Comment: Speci men Type: BLOOD SPECIMENOrdering Facility: [facility] Address: [address] [place] [address] Performed By: #### 5 8410-2 ####[facility] [id number] [address] [place] Platelets (Bld) [#/Vol] 86 10*3/uL Low 150-400 [facility] Comment on above: Order Comment: Speci men Type: BLOOD SPECIMENOrdering Facility: [facility] Address: [address] [place] [address] Performed By: #### 5 8410-2 ####[facility] [id number] [address] [place] RBC (Bld) [#/Vol] 2.47 10*6/uL Low 4.20-6.00 [facility] Comment on above: Order Comment: Speci men Type: BLOOD SPECIMENOrdering Facility: [facility] Address: [address] [place] [address] Performed By: #### 5 8410-2 ####[facility] [id number] [place] [id number] [facility] WBC (Bld) [#/Vol] 3.91 10*3/uL Normal 3.70-11.00 [facility] Comment on above: Order Comment: Speci men Type: BLOOD SPECIMENOrdering Facility: [facility] Address: [address] [place] [id number] Performed By: #### 5 8410-2 ####[facility] [id number] [place] [id number] [facility] CONSULTon 01-05-2025 CONSULT HNO ID: [id number] Author: DUY CEBALLOS MD Service: Pulmonary Disease Author Type: Physician Type: Consults Filed: 01/05/2025 12:53 Note Text: [facility]ULMON[facility] INITIAL CONSULTATION NOTE Patient Name: Joss Oropeza REASON FOR CONSULT: cough REQUESTING PHYSICIAN: Almita Carr MD ASSESSMENT: Cough Abnormal CT scan chest with bilateral lower lobe airspace disease suggestive of pneumonia Possible dysphagia/aspiration into airway Other medical problems include MDS, iron overload, pancytopenia, DM2, HLD and CVA PLAN: Received azithromycin/doxycycline at [facility] Will give course of ceftriaxone here for treatment for community-acquired pneumonia/aspiration- Bronchopulmonary hygiene with Acapella and spirometer Bronchodilation with DuoNeb Hypertonic saline Continue Mucinex Modified barium swallow Consider repeating ct chest in 6-8 weeks Thank you for the consultation. We will follow the patient along with you. Case discussed in detail with the patient, RN and primary attending. Patient verbalizes understanding and is in agreement with current management plan. Duy Ceballos MD CHIEF COMPLAINT: cough HISTORY OF PRESENT ILLNESS: Joss Oropeza is a 79 year old male, Ht 176.5 cm (5' 9.5) BMI 30.71 kg/m2, with a PMH significant for MDS, Iron Overload, pancytopenia, DMII, hyperlipidemia, stroke, has been hospitalized at [facility] twice for pneumonia. Here he feels better. C/o cough. No chest pain no fever Does not choke on food. On RA Ct chest 01/01/2025 reviewed airspace disease RML AND RLL No PE Sternal abnormality- related to MDS Labs and radiology have been reviewed PAST MEDICAL HISTORY Diagnosis Date Cancer of [...] Onset Stroke Mother Ischemic Heart Disease Father SOCIAL HISTORY[1] ALLERGIES: ALLERGIES Allergen Reactions Maxipime [Cefepime] Unknown CURRENT OUTPATIENT MEDICATIONS: FELIPEAGLAR KWEMILYPEN U-100 INSULIN 100 unit/mL (3 mL)Inject 35 Units subcutaneously every morning.Disp: Rfl: guaiFENesin (MUCINEX) 600 mg 12 hr tabletTake 2 tablets by mouth every 12 hours.Disp: Rfl: glimepiride (AMARYL) 4 mg tabletTake 1 tablet by mouth two times a day with meals.Disp: 180 tabletRfl: deferasirox (JADENU) 360 mg tabTake 4 tablets (1440mg) by mouth once daily. Take on an empty stomach.Disp: 120 tabletRfl: 3 aspirin 81 mg chewable tabletTake 81 mg by mouth once daily.Disp: Rfl: rosuvastatin (CRESTOR) 10 mg tabletTake 1 tablet by mouth daily at bedtime.Disp: 90 tabletRfl: 3 MEN'S MULTI-VITAMIN ORALTake 1 tablet by mouth.Disp: Rfl: cyanocobalamin (VITAMIN B-12) 1,000 mcg tabTake 1,000 mcg by mouth once daily.Disp: Rfl: tamsulosin (FLOMAX) 0.4 mgTake 0.4 mg by mouth once daily.Disp: Rfl: finasteride (PROSCAR) 5 mg tabletTake 5 mg by mouth daily at bedtime.Disp: Rfl: alendronate (FOSAMAX) 70 mg tabletTake 70 mg by mouth one time a week. In AM with cup of water on empty stomach. Nothing else by mouth and stay upright for 30 min.Disp: Rfl: lidocaine-prilocaine (EMLA) 2.5-2.5 % creamApply to anticipated injection site 30 minutes before injectionDisp: 5 gRfl: 2 BD CRISTAL 2ND GEN PEN NEEDLE 32 gauge x 5/32Disp: Rfl: REVIEW OF SYSTEMS: Constitutional:WELL DEVELOPED, WELL NOURISHED, and NO EVIDENCE OF ACUTE DISTRESS HEENT:Negative for frequent or significant headaches, No changes in hearing or vision, no nose bleeds or other nasal problems, SEE HPI RESPIRATORY: See HPI, CARDIOVASCULAR: See HPI, Negative for chest pain, leg swelling or palpitations. GASTROINTESTINAL: See HPI and Negative for abdominal discomfort, blood in stools or black stools or change in bowel habits GENITOURINARY: No history of dysuria, frequency or incontinence, See HPI MUSCULOSKELETAL: See HPI, Negative for joint pain or swelling, back pain. NEUROLOGIC: Negative for focal neurological deficits, dizziness or syncope. SKIN: Negative for lesions, rash, and itching. HEMATOLOGIC/LYMPHATIC/IMMU NOLOGIC: No easy bruising or swollen glands. ENDOCRINE: Negative for cold or heat intolerance, polyuria, polydipsia. See HPI The remainder of the ROS were reviewed and negative. Patient Vitals for (more content not included)... Normal [facility] HISTORY PHYSICALon HISTORY PHYSICAL HNO ID: [id number] Author: ALMITA CARR MD Service: Hospital Medicine Author Type: Physician Type: H&P Filed: 01/05/2025 14:10 Note Text: HISTORY AND PHYSICAL EXAMINATION SERVICE DATE: 01/05/2025 SERVICE TIME: 12:57 PM PRIMARY CARE PHYSICIAN: German Robertson MD Subjective CHIEF COMPLAINT: sob HPI: Patient is a 79 year old male with a past medical history of MDS, iron overload, pancytopenia, DM2, HLD and CVA who was transferred from [facility] for inpatient pulmonology evaluation. Patient presented to [facility] for persistent cough with associated midsternal chest pain. On presentation, he was found to be septic with tachycardia, hypoxia, leukopenia, and elevated lactate 2.4. He is being treated for pneumonia, initially with doxycycline and levaquin, now on Zosyn. His symptoms have not improved, still with elevated lactate despite antibiotics and IVF. Patient was discussed with medical coder, Dr. Carrillo, who recommended transfer for inpatient evaluation and possible bronchoscopy. Of note, patient recently admitted to [facility] 12/19/24 - 12/21/24 for hyponatremia and acute on chronic anemia. Received blood transfusion and treated for upper respiratory infection with doxycycline and azithromycin. On assessment, patient resting in bed. Continues to report persistent cough with clear sputum. Denies any further chest pain. Reports having low grade fevers at [facility]. Denies any shortness of breath, palpitations, N/V/D/C, urinary symptoms or chills. Code status discussed and patient wishes to be a FULL code. FUNCTIONAL STATUS: Independent PAST MEDICAL HISTORY Diagnosis Date Cancer of unknown origin (HCC) 12/11/2022 Diabetes (HCC) Dyslipidemia Heart murmur Rheumatic fever Stroke (cerebrum) ([facility]) 06/24/2020 PAST SURGICAL HISTORY Procedure Laterality [...] Onset Stroke Mother Ischemic Heart Disease Father SOCIAL HISTORY[1] Prior to Admission Medications Prescriptions Last Dose Informant Patient Reported? Taking? IFTIKHAR VAZQUEZ U-100 INSULIN 100 unit/mL (3 mL) No Yes Sig: Inject 35 Units subcutaneously every morning. BD CRISTAL 2ND GEN PEN NEEDLE 32 gauge x Yes No MEN'S MULTI-VITAMIN ORAL Yes Yes Sig: Take 1 tablet by mouth. alendronate (FOSAMAX) 70 mg tablet Yes Yes Sig: Take 70 mg by mouth one time a week. In AM with cup of water on empty stomach. Nothing else by mouth and stay upright for 30 min. aspirin 81 mg chewable tablet Yes Yes Sig: Take 81 mg by mouth once daily. cyanocobalamin (VITAMIN B-12) 1,000 mcg tab Yes Yes Sig: Take 1,000 mcg by mouth once daily. deferasirox (JADENU) 360 mg tab No Yes Sig: Take 4 tablets (1440mg) by mouth once daily. Take on an empty stomach. finasteride (PROSCAR) 5 mg tablet Yes Yes Sig: Take 5 mg by mouth daily at bedtime. glimepiride (AMARYL) 4 mg tablet No Yes Sig: Take 1 tablet by mouth two times a day with meals. guaiFENesin (MUCINEX) 600 mg 12 hr tablet No Yes Sig: Take 2 tablets by mouth every 12 hours. lidocaine-prilocaine (EMLA) 2.5-2.5 % cream No No Sig: Apply to anticipated injection site 30 minutes before injection rosuvastatin (CRESTOR) 10 mg tablet No Yes Sig: Take 1 tablet by mouth daily at bedtime. tamsulosin (FLOMAX) 0.4 mg Yes Yes Sig: Take 0.4 mg by mouth once daily. Facility-Administered Medications: None ALLERGIES Allergen Reactions Maxipime [Cefepime] Unknown COMPLETE REVIEW OF SYSTEMS: 10 point ros negative except for hpi Objective PHYSICAL EXAM: Physical Exam Performed: GENERAL: Alert, no distress, cooperative SKIN: Skin color, texture, turgor normal. No rashes or lesions. HEAD/SINUSES: No significant findings EYES: PERRLA, EOMI EARS: External ears normal, canals clear NOSE: Nares normal. Septum midline. OROPHARYNX: Lips, mucosa, and tongue normal. Teeth and gums normal. Oropharynx normal. NECK: No jugulovenous distention, No carotid bruits, Carotid pulse normal contour, Supple LUNGS: diminished throughout CARDIAC: Normal S1 and S2; no rubs, murmurs, or gallops ABDOMEN: Abdomen soft, non-tender, BS normal, No masses or organomegaly EXTREMITIES: Extremities normal, no deformities, edema, clubbing or skin discoloration. Good capillary refill., No ulcers NEURO: Gait normal. Reflexes normal and symmetric. Sensation grossly intact, Cranial nerves II-XII intact BP 154/78 Pulse 86 Temp (Src) 97.8 (Oral) Resp 16 (more content not included)... Normal [facility] Lactate (Bld) [Moles/Vol]on 01-05-2025 Lactate [Moles/Vol] 2.1 mmol/L Normal 0.5-2.2 [facility] Comment on above: Order Comment: Mathew portillo Type: BLOOD SPECIMEN Ordering Facility: [facility] Address: [address], [place] [address] Performed By: #### 3 2693-4 #### [facility] CLIA [id number] [address] [place] [address] [place] [facility] THERAPY NTon 01-05-2025 THERAPY NT HNO ID: [id number] Author: VIVIENNE ADAMS [employer] Service: Speech/Swallow Author Type: Speech Language Pathologist Type: Therapy (PT/OT/Speech/Resp) Filed: 01/05/2025 13:08 Note Text: -- Summary: [employer] Missed Visit -- SPEECH THERAPY MISSED VISIT SERVICE DATE: 01/05/2025 SERVICE TIME: 1306 ROOM: [place] [address] Patient not seen due to (scheduling conflict). -Modified Barium Swallowing Exam to be scheduled at first opportunity given speech language pathology / Radiology and patient availability. -Radiology unavailable this date to complete fluoroscopic study SIGNATURE: Vivienne Schultz [employer] PATIENT NAME: Joss Oropeza DATE: January 05, 2025 TIME: 1:[address] [facility] 36on 01-04-2025 36 S- Rajan with [facility] ca bigging for Dr. Carr regarding transfer of patient from [facility] to [place]. R- Message sent to Dr. Carr via Secure Chat, she acknowledged receipt of message. [facility] Basic metabolic 2000 panelon 01-04-2025 Anion gap [Moles/Vol] 15 mmol/L Normal 8-15 [facility] Comment on above: Order Comment: Speci men Type: BLOOD SPECIMENOrdering Facility: [facility] Address: [address] [place] [address] Performed By: #### 2 4321-2 ####[facility] [place] LABCLIA [id number] [place] [address] [place] Calcium [Mass/Vol] 9.0 mg/dL Normal 8.5-10.2 [facility] Comment on above: Order Comment: Speci men Type: BLOOD SPECIMENOrdering Facility: [facility] Address: [address] [place] [address] Performed By: #### 2 4321-2 ####[facility] [place] LABCLIA [id number] [place] [address] [place] Chloride [Moles/Vol] 102 mmol/L Normal 98-107 [facility] Comment on above: Order Comment: Speci men Type: BLOOD SPECIMENOrdering Facility: [facility] Address: [address] [place] [address] Performed By: #### 2 4321-2 ####[facility] [place] LABCLIA [id number] [place] [address] [place] CO2 [Moles/Vol] 19 mmol/L Low 22-30 [facility] Comment on above: Order Comment: Speci men Type: BLOOD SPECIMENOrdering Facility: [facility] Address: [address] [place] [address] Performed By: #### 2 4321-2 ####[facility] [place] LABCLIA [id number] [place] [address] [place] Creatinine [Mass/Vol] 0.82 mg/dL Normal 0.73-1.22 [facility] Comment on above: Order Comment: Speci men Type: BLOOD SPECIMENOrdering Facility: [facility] Address: [address] [place] [address] Performed By: #### 2 4321-2 ####[facility] LABCLIA [id number] [place] [address] [place] eGFRcr SerPlBld CKD-EPI 2020 88 mL/min/1.73m??? Normal >=60 [facility] Comment on above: Order Comment: Mathew portillo Type: BLOOD SPECIMENOrdering Facility: [facility] Address: [address] [place] [address] Result Comment: Sharon mated Glomerular Filtration Rate [...] reflect actual GFR. Performed By: #### 2 4321-2 ####[facility] LABCLIA [id number] [place] [address] [place] Glucose [Mass/Vol] 135 mg/dL High 74-99 [facility] Comment on above: Order Comment: Mathew portillo Type: BLOOD SPECIMENOrdering Facility: [facility] Address: [address] [place] [address] Result Comment: The [place] Diabetes Association (ADA) provides guidance for cutoff [...] Standards of Medical Care in Diabetes 2016, [place] [employer]. Diabetes Care. 2016.39(Suppl 1). Performed By: #### 2 4321-2 ####[facility] LABCLIA [id number] [place] [address] [place] Potassium [Moles/Vol] 4.0 mmol/L Normal 3.7-5.1 [facility] Comment on above: Order Comment: Speci men Type: BLOOD SPECIMENOrdering Facility: [facility] Address: [address] [place] [address] Performed By: #### 2 4321-2 ####[facility] [place] LABCLIA [id number] [place] [address] [place] Sodium [Moles/Vol] 136 mmol/L Normal 136-144 [facility] Comment on above: Order Comment: Speci men Type: BLOOD SPECIMENOrdering Facility: [facility] Address: [address] [place] [address] Performed By: #### 2 4321-2 ####[facility] LABCLIA [id number] [place] [address] [place] Urea nitrogen [Mass/Vol] 13 mg/dL Normal 9-24 [facility] Comment on above: Order Comment: Speci men Type: BLOOD SPECIMENOrdering Facility: [facility] Address: [address] [place] [address] Performed By: #### 2 4321-2 ####[facility] [place] LABCLIA [id number] [place] [address] [place] CBC panel Auto (Bld)on 01-04 Erythrocyte distribution width (RBC) [Ratio] 17.5 % High 11.5-15.0 [facility] Comment on above: Order Comment: Speci men Type: BLOOD SPECIMENOrdering Facility: [facility] Address: [address] [place] [address] Performed By: #### 5 8410-2 ####[facility] [place] LABCLIA [id number] [place] [address] [facility] Hematocrit (Bld) [Volume fraction] 23.2 % Low 39.0-51.0 [facility] Comment on above: Order Comment: Speci men Type: BLOOD SPECIMENOrdering Facility: [facility] Address: [address] [place] [address] Performed By: #### 5 8410-2 ####[facility] [place] LABCLIA [id number] [place] [address] [place] [facility] Hemoglobin (Bld) [Mass/Vol] 7.8 g/dL Low 13.0-17.0 [facility] Comment on above: Order Comment: Speci men Type: BLOOD SPECIMENOrdering Facility: [facility] Address: [address] [place] [address] Performed By: #### 5 8410-2 ####[facility] LABCLIA [id number] [place] [address] [facility] MCH (RBC) [Entitic mass] 29.2 pg Normal 26.0-34.0 [facility] Comment on above: Order Comment: Speci men Type: BLOOD SPECIMENOrdering Facility: [facility] Address: [address] [place] [address] Performed By: #### 5 8410-2 ####[facility] LABCLIA [id number] [place] [address] [facility] MCHC (RBC) [Mass/Vol] 33.6 g/dL Normal 30.5-36.0 [facility] Comment on above: Order Comment: Speci men Type: BLOOD SPECIMENOrdering Facility: [facility] Address: [address] [place] [address] Performed By: #### 5 8410-2 ####[facility] LABCLIA [id number] [place] [address] [place] MCV (RBC) [Entitic vol] 86.9 fL Normal 80.0-100.0 [facility] Comment on above: Order Comment: Speci men Type: BLOOD SPECIMENOrdering Facility: [facility] Address: [address] [place] [address] Performed By: #### 5 8410-2 ####[facility] LABCLIA [id number] [place] [address] [place] Platelet mean volume (Bld) [Entitic vol] 10.9 fL Normal 9.0-12.7 [facility] Comment on above: Order Comment: Speci men Type: BLOOD SPECIMENOrdering Facility: [facility] Address: [address] [place] [address] Performed By: #### 5 8410-2 ####[facility] LABCLIA [id number] [place] [address] [facility] Platelets (Bld) [#/Vol] 94 10*3/uL Low 150-400 [facility] Comment on above: Order Comment: Speci men Type: BLOOD SPECIMENOrdering Facility: [facility] Address: [address] [place] [address] Performed By: #### 5 8410-2 ####[facility] LABCLIA [id number] [place] [address] [facility] RBC (Bld) [#/Vol] 2.67 10*6/uL Low 4.20-6.00 [facility] Comment on above: Order Comment: Speci men Type: BLOOD SPECIMENOrdering Facility: [facility] Address: [address] [place] [address] Performed By: #### 5 8410-2 ####[facility] LABCLIA [id number] [place], [place] [id number] [place] [address] OF [facility] WBC (Bld) [#/Vol] 3.49 10*3/uL Low 3.70-11.00 [facility] Comment on above: Order Comment: Speci men Type: BLOOD SPECIMENOrdering Facility: [facility] Address: [address] [place] [address] Performed By: #### 5 8410-2 ####[facility] [place] LABCLIA [id number] [place] [address] [facility] SEPSIS LACTATEon 01-04-2025 Lactate [Moles/Vol] 2.4 mmol/L High <=2.0 [facility] Comment on above: Order Comment: Speci men Type: BLOOD SPECIMENOrdering Facility: [facility] Address: [address], [place] [address] Performed By: #### S LACT ####[facility] [place] LABCLIA [id number] [place] [address] [place] Lactate [Moles/Vol] 2.4 mmol/L High <=2.0 [facility] Comment on above: Order Comment: Speci men Type: BLOOD SPECIMENOrdering Facility: [facility] Address: [address] [place] [address] Performed By: #### S LACT ####[facility] [place] LABCLIA [id number] [address] [facility] [address] [place] Basic metabolic 2000 panelon 01-03-2025 Anion gap [Moles/Vol] 15 mmol/L Normal 8-15 [facility] Comment on above: Order Comment: Speci men Type: BLOOD SPECIMENOrdering Facility: [facility] Address: [address] [place] [address] Performed By: #### 2 4321-2 ####[facility] [place] LABCLIA [id number] [place] [address] [place] Calcium [Mass/Vol] 9.4 mg/dL Normal 8.5-10.2 [facility] Comment on above: Order Comment: Speci men Type: BLOOD SPECIMENOrdering Facility: [facility] Address: [address] [place] [address] Performed By: #### 2 4321-2 ####[facility] [place] LABCLIA [id number] [place] [address] [place] Chloride [Moles/Vol] 100 mmol/L Normal 98-107 [facility] Comment on above: Order Comment: Speci men Type: BLOOD SPECIMENOrdering Facility: [facility] Address: [address] [place] [address] Performed By: #### 2 4321-2 ####[facility] [place] LABCLIA [id number] [facility] [place] [address] [place] CO2 [Moles/Vol] 20 mmol/L Low 22-30 [facility] Comment on above: Order Comment: Speci men Type: BLOOD SPECIMENOrdering Facility: [facility] Address: [address] [place] [address] Performed By: #### 2 4321-2 ####[facility] LABCLIA [id number] [place] [address] [place] Creatinine [Mass/Vol] 0.75 mg/dL Normal 0.73-1.22 [facility] Comment on above: Order Comment: Mayurmagdalena portillo Type: BLOOD SPECIMENOrdering Facility: [facility] Address: [address] [place] [address] Performed By: #### 2 4321-2 ####[facility] LABCLIA [id number] [place] [address] [place] eGFRcr SerPlBld CKD-EPI 2020 91 mL/min/1.73m??? Normal >=60 [facility] Comment on above: Order Comment: Mathew portillo Type: BLOOD SPECIMENOrdering Facility: [facility] Address: [address] [place] [address] Result Comment: Sharon mated Glomerular Filtration Rate [...] reflect actual GFR. Performed By: #### 2 4321-2 ####[facility] LABCLIA [id number] [place] [address] [place] Glucose [Mass/Vol] 142 mg/dL High 74-99 [facility] Comment on above: Order Comment: Mathew portillo Type: BLOOD SPECIMENOrdering Facility: [facility] Address: [address] [place] [address] Result Comment: The [place] Diabetes Association (ADA) provides guidance for cutoff [...] Standards of Medical Care in Diabetes 2016, [place] [employer]. Diabetes Care. 2016.39(Suppl 1). Performed By: #### 2 4321-2 ####[facility] LABCLIA [id number] [place] [address] [place] Potassium [Moles/Vol] 4.0 mmol/L Normal 3.7-5.1 [facility] Comment on above: Order Comment: Speci men Type: BLOOD SPECIMENOrdering Facility: [facility] Address: [address] [place] [address] Performed By: #### 2 4321-2 ####[facility] LABCLIA [id number] [place] [address] [place] [facility] Sodium [Moles/Vol] 135 mmol/L Low 136-144 [facility] Comment on above: Order Comment: Speci men Type: BLOOD SPECIMENOrdering Facility: [facility] Address: [address] [place] [address] Performed By: #### 2 4321-2 ####[facility] LABCLIA [id number] [place] [address] [place] Urea nitrogen [Mass/Vol] 14 mg/dL Normal 9-24 [facility] Comment on above: Order Comment: Speci men Type: BLOOD SPECIMENOrdering Facility: [facility] Address: [address] [place] [address] Performed By: #### 2 4321-2 ####[facility] LABCLIA [id number] [place] [address] [place] CBC panel Auto (Bld)on 01-03 Erythrocyte distribution width (RBC) [Ratio] 17.2 % High 11.5-15.0 [facility] Comment on above: Order Comment: Speci men Type: BLOOD SPECIMENOrdering Facility: [facility] Address: [address] [place] [address] Performed By: #### 5 8410-2 ####[facility] [place] LABCLIA [id number] [place] [address] [facility] Hematocrit (Bld) [Volume fraction] 25.7 % Low 39.0-51.0 [facility] Comment on above: Order Comment: Speci men Type: BLOOD SPECIMENOrdering Facility: [facility] Address: [address] [place] [address] Performed By: #### 5 8410-2 ####[facility] LABCLIA [id number] [place] [id number] [place] Hemoglobin (Bld) [Mass/Vol] 8.6 g/dL Low 13.0-17.0 [facility] Comment on above: Order Comment: Speci men Type: BLOOD SPECIMENOrdering Facility: [facility] Address: [address] [place] [address] Performed By: #### 5 8410-2 ####[facility] LABCLIA [id number] [address] [place] MCH (RBC) [Entitic mass] 29.4 pg Normal 26.0-34.0 [facility] Comment on above: Order Comment: Speci men Type: BLOOD SPECIMENOrdering Facility: [facility] Address: [address] [place] [address] Performed By: #### 5 8410-2 ####[facility] [place] LABCLIA [id number] [place] [address] [place] MCHC (RBC) [Mass/Vol] 33.5 g/dL Normal 30.5-36.0 [facility] Comment on above: Order Comment: Speci men Type: BLOOD SPECIMENOrdering Facility: [facility] Address: [address] [place] [address] Performed By: #### 5 8410-2 ####[facility] [place] LABCLIA [id number] [place] [address] [place] MCV (RBC) [Entitic vol] 87.7 fL Normal 80.0-100.0 [facility] Comment on above: Order Comment: Speci men Type: BLOOD SPECIMENOrdering Facility: [facility] Address: [address] [place] [address] Performed By: #### 5 8410-2 ####[facility] LABCLIA [id number] [address] [employer] [place] [facility] [place] [address] [place] [facility] Platelet mean volume (Bld) [Entitic vol] 11.0 fL Normal 9.0-12.7 [facility] Comment on above: Order Comment: Speci men Type: BLOOD SPECIMENOrdering Facility: [facility] Address: [address] [place] [address] Performed By: #### 5 8410-2 ####[facility] LABCLIA [id number] [facility] [place] [address] [facility] [place] Platelets (Bld) [#/Vol] 89 10*3/uL Low 150-400 [facility] Comment on above: Order Comment: Speci men Type: BLOOD SPECIMENOrdering Facility: [facility] Address: [address] [place] [address] Result Comment: No c lot detected. Performed By: #### 5 8410-2 ####[facility] LABCLIA [id number] [place] [address] [place] RBC (Bld) [#/Vol] 2.93 10*6/uL Low 4.20-6.00 [facility] Comment on above: Order Comment: Speci men Type: BLOOD SPECIMENOrdering Facility: [facility] Address: [address] [place] [address] Performed By: #### 5 8410-2 ####[facility] [place] LABCLIA [id number] [facility] [place] [address] [place] WBC (Bld) [#/Vol] 3.40 10*3/uL Low 3.70-11.00 [facility] Comment on above: Order Comment: Speci men Type: BLOOD SPECIMENOrdering Facility: [facility] Address: [address] [place] [address] Performed By: #### 5 8410-2 ####[facility] [place] LABCLIA [id number] [place] [address] [facility] SEPSIS LACTATEon 01-03-2025 Lactate [Moles/Vol] 2.9 mmol/L High <=2.0 [facility] Comment on above: Order Comment: Speci men Type: BLOOD SPECIMENOrdering Facility: [facility] Address: [address] [place] [address] Performed By: #### S LACT ####[facility] LABCLIA [id number] [place] [id number] [facility] Lactate [Moles/Vol] 2.5 mmol/L High <=2.0 [facility] Comment on above: Order Comment: Speci men Type: BLOOD SPECIMENOrdering Facility: [facility] Address: [address] [place] [address] Performed By: #### S LACT ####[facility] LABCLIA [id number] [place] [id number] [facility] CBC panel Auto (Bld)on 01-02 Erythrocyte distribution width (RBC) [Ratio] 17.4 % High 11.5-15.0 [facility] Comment on above: Order Comment: Speci men Type: BLOOD SPECIMENOrdering Facility: [facility] Address: [address] [place] [address] Performed By: #### 5 8410-2 ####[facility] [place] LABCLIA [id number] [place] [address] [facility] Hematocrit (Bld) [Volume fraction] 25.5 % Low 39.0-51.0 [facility] [facility] Comment on above: Order Comment: Speci men Type: BLOOD SPECIMENOrdering Facility: [facility] Address: [address] [place] [address] Performed By: #### 5 8410-2 ####[facility] LABCLIA [id number] [place] [address] [place] [facility] Hemoglobin (Bld) [Mass/Vol] 8.5 g/dL Low 13.0-17.0 [facility] Comment on above: Order Comment: Speci men Type: BLOOD SPECIMENOrdering Facility: [facility] Address: [address] [place] [address] Performed By: #### 5 8410-2 ####[facility] LABCLIA [id number] [place] [address] [place] [facility] MCH (RBC) [Entitic mass] 29.2 pg Normal 26.0-34.0 [facility] Comment on above: Order Comment: Speci men Type: BLOOD SPECIMENOrdering Facility: [facility] Address: [address] [place] [address] Performed By: #### 5 8410-2 ####[facility] LABCLIA [id number] [place], [place] [id number] [place] [address] MCHC (RBC) [Mass/Vol] 33.3 g/dL Normal 30.5-36.0 [facility] Comment on above: Order Comment: Speci men Type: BLOOD SPECIMENOrdering Facility: [facility] Address: [address] [place] [address] Performed By: #### 5 8410-2 ####[facility] LABCLIA [id number] [place] [address] [place] MCV (RBC) [Entitic vol] 87.6 fL Normal 80.0-100.0 [facility] Comment on above: Order Comment: Speci men Type: BLOOD SPECIMENOrdering Facility: [facility] Address: [address] [place] [address] Performed By: #### 5 8410-2 ####[facility] LABCLIA [id number] [place] [address] [place] Platelet mean volume (Bld) [Entitic vol] 10.7 fL Normal 9.0-12.7 [facility] Comment on above: Order Comment: Speci men Type: BLOOD SPECIMENOrdering Facility: [facility] Address: [address] [place] [address] Performed By: #### 5 8410-2 ####[facility] LABCLIA [id number] [place] [address] [facility] Platelets (Bld) [#/Vol] 91 10*3/uL Low 150-400 [facility] Comment on above: Order Comment: Speci men Type: BLOOD SPECIMENOrdering Facility: [facility] Address: [address] [place] [address] Performed By: #### 5 8410-2 ####[facility] LABCLIA [id number] [place] [address] [facility] RBC (Bld) [#/Vol] 2.91 10*6/uL Low 4.20-6.00 [facility] Comment on above: Order Comment: Speci men Type: BLOOD SPECIMENOrdering Facility: [facility] Address: [address] [place] [address] Performed By: #### 5 8410-2 ####[facility] LABCLIA [id number] [place] [address] [place] [facility] WBC (Bld) [#/Vol] 3.08 10*3/uL Low 3.70-11.00 [facility] Comment on above: Order Comment: Speci men Type: BLOOD SPECIMENOrdering Facility: [facility] Address: [address] [place] [address] Performed By: #### 5 8410-2 ####[facility] LABCLIA [id number] [place] [address] [facility] Comprehensive metabolic 2000 panelon 01-02-2025 Albumin [Mass/Vol] 3.8 g/dL Low 3.9-4.9 [facility] Comment on above: Order Comment: Speci men Type: BLOOD SPECIMENOrdering Facility: [facility] Address: [address] [place] [address] Performed By: #### 2 4323-8 ####[facility] [place] LABCLIA [id number] [place] [address] [place] ALP [Catalytic activity/Vol] 77 U/L Normal 38-113 [facility] Comment on above: Order Comment: Speci men Type: BLOOD SPECIMENOrdering Facility: [facility] Address: [address] [place] [address] Performed By: #### 2 4323-8 ####[facility] [place] LABCLIA [id number] [place] [address] [place] ALT With P-5'-P [Catalytic activity/Vol] 15 U/L Normal 10-54 [facility] Comment on above: Order Comment: Speci men Type: BLOOD SPECIMENOrdering Facility: [facility] Address: [address] [place] [address] Performed By: #### 2 4323-8 ####[facility] [place] LABCLIA [id number] [place] [address] [place] [facility] Anion gap [Moles/Vol] 16 mmol/L High 8-15 [facility] Comment on above: Order Comment: Speci men Type: BLOOD SPECIMENOrdering Facility: [facility] Address: [address] [place] [address] Performed By: #### 2 4323-8 ####[facility] [place] LABCLIA [id number] [place] [address] [place] AST With P-5'-P [Catalytic activity/Vol] 20 U/L Normal 14-40 [facility] Comment on above: Order Comment: Speci men Type: BLOOD SPECIMENOrdering Facility: [facility] Address: [address] [place] [address] Performed By: #### 2 4323-8 ####[facility] [place] LABCLIA [id number] [place] [address] [place] Bilirubin [Mass/Vol] 0.4 mg/dL Normal 0.2-1.3 [facility] Comment on above: Order Comment: Speci men Type: BLOOD SPECIMENOrdering Facility: [facility] Address: [address] [place] [address] Performed By: #### 2 4323-8 ####[facility] [place] LABCLIA [id number] [place] [address] [place] Calcium [Mass/Vol] 9.8 mg/dL Normal 8.5-10.2 [facility] Comment on above: Order Comment: Speci men Type: BLOOD SPECIMENOrdering Facility: [facility] Address: [address] [place] [address] Performed By: #### 2 4323-8 ####[facility] [place] LABCLIA [id number] [place] [address] [place] Chloride [Moles/Vol] 99 mmol/L Normal 98-107 [facility] Comment on above: Order Comment: Speci men Type: BLOOD SPECIMENOrdering Facility: [facility] Address: [address] [place] [address] Performed By: #### 2 4323-8 ####[facility] [place] LABCLIA [id number] [place] [address] [place] CO2 [Moles/Vol] 22 mmol/L Normal 22-30 [facility] Comment on above: Order Comment: Speci men Type: BLOOD SPECIMENOrdering Facility: [facility] Address: [address] [place] [address] Performed By: #### 2 4323-8 ####[facility] [place] LABCLIA [id number] [place] [address] [place] Creatinine [Mass/Vol] 0.75 mg/dL Normal 0.73-1.22 [facility] Comment on above: Order Comment: Speci men Type: BLOOD SPECIMENOrdering Facility: [facility] Address: [address] [place] [address] Performed By: #### 2 4323-8 ####[facility] [place] LABCLIA [id number] [place] [address] [place] eGFRcr SerPlBld CKD-EPI 2020 91 mL/min/1.73m??? Normal >=60 [facility] Comment on above: Order Comment: Mathew portillo Type: BLOOD SPECIMENOrdering Facility: [facility] Address: [address] [place] [address] Result Comment: Sharon mated Glomerular Filtration Rate [...] actual GFR. Performed By: #### 2 4323-8 ####[facility] LABCLIA [id number] [place] [id number] [place] Glucose [Mass/Vol] 268 mg/dL High 74-99 [facility] Comment on above: Order Comment: Mathew portillo Type: BLOOD SPECIMENOrdering Facility: [facility] Address: [address] [place] [address] Result Comment: The [place] Diabetes Association (ADA) provides guidance for cutoff [...] Standards of Medical Care in Diabetes 2016, [place] [employer]. Diabetes Care. 2016.39(Suppl 1). Performed By: #### 2 4323-8 ####[facility] LABCLIA [id number] [place] [address] [place] Potassium [Moles/Vol] 4.0 mmol/L Normal 3.7-5.1 [facility] Comment on above: Order Comment: Mathew portillo Type: BLOOD SPECIMENOrdering Facility: [facility] Address: [address] [place], [place] [address] Performed By: #### 2 4323-8 ####[facility] [place] LABCLIA [id number] [place] [address] [place] Protein [Mass/Vol] 7.3 g/dL Normal 6.3-8.0 [facility] Comment on above: Order Comment: Speci men Type: BLOOD SPECIMENOrdering Facility: [facility] Address: [address] [place] [address] Performed By: #### 2 4323-8 ####[facility] [place] LABCLIA [id number] [place] [address] [place] Sodium [Moles/Vol] 137 mmol/L Normal 136-144 [facility] Comment on above: Order Comment: Speci men Type: BLOOD SPECIMENOrdering Facility: [facility] Address: [address] [place] [address] Performed By: #### 2 4323-8 ####[facility] [place] LABCLIA [id number] [place] [address] [place] Urea nitrogen [Mass/Vol] 16 mg/dL Normal 9-24 [facility] Comment on above: Order Comment: Speci men Type: BLOOD SPECIMENOrdering Facility: [facility] Address: [address] [place] [address] Performed By: #### 2 4323-8 ####[facility] [place] LABCLIA [id number] [place] [address] [facility] [place] ED NOTEon 01-02-2025 ED NOTE HNO ID: [id number] Author: PHILIP DUBOIS, RN Service: Nursing Author Type: Registered Nurse Type: ED Notes Filed: 01/02/2025 16:30 Note Text: Taking pt over to east wing Normal [facility] ED NOTE Normal [facility] ED NOTE HNO ID: [id number] Author: PHILIP DUBOIS, RN Service: Nursing Author Type: Registered Nurse Type: ED Notes Filed: 01/02/2025 13:42 Note Text: Pt's said she will bring home medication shortly Normal [facility] ED NOTE Normal [facility] ED NOTE HNO ID: [id number] Author: GIOVANI BURTON, DERIC Service: ? Author Type: Registered Nurse Type: ED Notes Filed: 01/02/2025 08:32 Note Text: Meal tray given Normal [facility] ED NOTE HNO ID: [id number] Author: GIOVANI BURTON RN Service: ? Author Type: Registered Nurse Type: ED Notes Filed: 01/02/2025 07:51 Note Text: Pt ambulates to restroom without difficulty. Repositioned to chair. Meal tray ordered Normal [facility] ED NOTE HNO ID: [id number] Author: DIANE FUENTES RN Service: ? Author Type: Registered Nurse Type: ED Notes Filed: 01/02/2025 07:24 Note Text: Report from Ok LEOS Normal [facility] ED NOTE HNO ID: [id number] Author: OK MANCILLA RN Service: Emergency Medicine Author Type: Registered Nurse Type: ED Notes Filed: 01/02/2025 01:25 Note Text: Food tray provided Normal [facility] ED PROV NOTEon 01-02-2025 ED PROV NOTE Normal [facility] HISTORY PHYSICALon HISTORY PHYSICAL Normal [facility] PNEUMOCYSTIS JIROVECII PCRon 01-02-2025 P. jiroveci DNA SUZI+probe (Unsp spec) [#/Vol] Not detected Normal Pneumocystis jirovecii Not Detected by PCR [facility] Comment on above: Order Comment: Speci men Type: SPUTUM SPECIMENOrdering Facility: [facility] Address: [address] [place] [address] Performed By: #### P [facility] ####[facility] LABCLIA [id number] [place] [address] [place] SEPSIS LACTATEon 01-02-2025 Lactate [Moles/Vol] 2.7 mmol/L High <=2.0 [facility] Comment on above: Order Comment: Speci men Type: BLOOD SPECIMENOrdering Facility: [facility] Address: [address] [place] [address] Performed By: #### S LACT ####[facility] LABCLIA [id number] [place] [id number] [place] Lactate [Moles/Vol] 3.2 mmol/L High <=2.0 [facility] Comment on above: Order Comment: Speci men Type: BLOOD SPECIMENOrdering Facility: [facility] Address: [address] [place] [address] Performed By: #### S LACT ####[facility] LABCLIA [id number] [place] [address] [place] STAPHYLOCOCCUS AUREUS AND MR SA SCREEN, PCR, NASALon 01-02-2025 S. aureus and MRSA panel SUZI+probe (Nose) Not detected Normal Not Detected [facility] Comment on above: Order Comment: Speci men Type: SWABOrdering Facility: [facility] Address: [address] [place] [address] Performed By: #### S APCR ####[facility] LABORATORYCLIA [id number] [place] [address] [place] STREPTOCOCCUS PNEUMONIAE ANT IGEN URINEon 01-02-2025 STREPTOCOCCUS PNEUMONIAE ANTIGEN URINE Normal [facility] Comment on above: Performed By: #### S PNAG ####[facility] LABORATORYCLIA [id number] [place] [address] [place] ALLIED HEALTHon 01-01-2025 ALLIED HEALTH Normal [facility] CBC W Auto Differential pane l (Bld)on 01-01-2025 Basophils (Bld) [#/Vol] 10*3/uL Normal <0.11 [facility] Comment on above: Order Comment: Speci men Type: BLOOD SPECIMENOrdering Facility: [facility] Address: [address] [place] [address] Performed By: #### 5 7021-8 ####[facility] LABCLIA [id number] [place] [address] [place] Basophils/100 WBC (Bld) 0.3 % Normal [facility] Comment on above: Order Comment: Speci men Type: BLOOD SPECIMENOrdering Facility: [facility] Address: [address] [place] [address] Performed By: #### 5 7021-8 ####[facility] [place] LABCLIA [id number] [place] [address] [facility] Differential cell count method Nom (Bld) Auto Normal [facility] Comment on above: Order Comment: Speci men Type: BLOOD SPECIMENOrdering Facility: [facility] Address: [address] [place] [address] Performed By: #### 5 7021-8 ####[facility] [place] LABCLIA [id number] [facility] [place] [address] [place] [facility] Eosinophils (Bld) [#/Vol] 10*3/uL Normal <0.46 [facility] Comment on above: Order Comment: Speci men Type: BLOOD SPECIMENOrdering Facility: [facility] Address: [address] [place] [address] Performed By: #### 5 7021-8 ####[facility] [place] LABCLIA [id number] [facility] [place] [address] [facility] Eosinophils/100 WBC (Bld) 0.0 % Normal [facility] Comment on above: Order Comment: Speci men Type: BLOOD SPECIMENOrdering Facility: [facility] Address: [address] [place] [address] Performed By: #### 5 7021-8 ####[facility] [place] LABCLIA [id number] [facility] [place] [address] [place] Erythrocyte distribution width (RBC) [Ratio] 17.1 % High 11.5-15.0 [facility] Comment on above: Order Comment: Speci men Type: BLOOD SPECIMENOrdering Facility: [facility] Address: [address] [place] [address] Performed By: #### 5 7021-8 ####[facility] [place] LABCLIA [id number] [facility] [place] [address] [place] Hematocrit (Bld) [Volume fraction] 25.2 % Low 39.0-51.0 [facility] Comment on above: Order Comment: Speci men Type: BLOOD SPECIMENOrdering Facility: [facility] Address: [address] [place] [address] Performed By: #### 5 7021-8 ####[facility] [place] LABCLIA [id number] [facility] [place] [address] [place] Hemoglobin (Bld) [Mass/Vol] 8.5 g/dL Low 13.0-17.0 [facility] Comment on above: Order Comment: Speci men Type: BLOOD SPECIMENOrdering Facility: [facility] Address: [address] [place] [address] Performed By: #### 5 7021-8 ####[facility] LABCLIA [id number] [facility] [place] [address] [place] Immature granulocytes (Bld) [#/Vol] 10*3/uL Normal <0.10 [facility] Comment on above: Order Comment: Speci men Type: BLOOD SPECIMENOrdering Facility: [facility] Address: [address] [place] [address] Performed By: #### 5 7021-8 ####[facility] [place] LABCLIA [id number] [place] [address] [place] Immature granulocytes/100 WBC (Bld) 0.3 % Normal [facility] Comment on above: Order Comment: Speci men Type: BLOOD SPECIMENOrdering Facility: [facility] Address: [address] [place] [address] Performed By: #### 5 7021-8 ####[facility] [place] LABCLIA [id number] [place] [address] [place] Lymphocytes (Bld) [#/Vol] 1.22 10*3/uL Normal 1.00-4.00 [facility] Comment on above: Order Comment: Speci men Type: BLOOD SPECIMENOrdering Facility: [facility] Address: [address] [place] [address] Performed By: #### 5 7021-8 ####[facility] LABCLIA [id number] [place] [address] [facility] Lymphocytes/100 WBC (Bld) 33.1 % Normal [facility] Comment on above: Order Comment: Speci men Type: BLOOD SPECIMENOrdering Facility: [facility] Address: [address] [place] [address] Performed By: #### 5 7021-8 ####[facility] LABCLIA [id number] [place], [place] [address] [place] [address] MCH (RBC) [Entitic mass] 29.2 pg Normal 26.0-34.0 [facility] Comment on above: Order Comment: Speci men Type: BLOOD SPECIMENOrdering Facility: [facility] Address: [address] [place] [address] Performed By: #### 5 7021-8 ####[facility] LABCLIA [id number] [address] MCHC (RBC) [Mass/Vol] 33.7 g/dL Normal 30.5-36.0 [facility] Comment on above: Order Comment: Speci men Type: BLOOD SPECIMENOrdering Facility: [facility] Address: [address] [place] [address] Performed By: #### 5 7021-8 ####[facility] LABCLIA [id number] [place] [address] [place] MCV (RBC) [Entitic vol] 86.6 fL Normal 80.0-100.0 [facility] Comment on above: Order Comment: Speci men Type: BLOOD SPECIMENOrdering Facility: [facility] Address: [address] [place] [address] Performed By: #### 5 7021-8 ####[facility] LABCLIA [id number] [place] [address] [facility] Monocytes (Bld) [#/Vol] 0.25 10*3/uL Normal <0.87 [facility] Comment on above: Order Comment: Speci men Type: BLOOD SPECIMENOrdering Facility: [facility] Address: [address] [place] [address] Performed By: #### 5 7021-8 ####[facility] [place] LABCLIA [id number] [place] [address] [place] Monocytes/100 WBC (Bld) 6.8 % Normal [facility] Comment on above: Order Comment: Speci men Type: BLOOD SPECIMENOrdering Facility: [facility] Address: [address] [place] [address] Performed By: #### 5 7021-8 ####[facility] [place] LABCLIA [id number] [facility] [place] [address] [place] Neutrophils (Bld) [#/Vol] 2.20 10*3/uL Normal 1.45-7.50 [facility] Comment on above: Order Comment: Speci men Type: BLOOD SPECIMENOrdering Facility: [facility] Address: [address] [place] [address] Performed By: #### 5 7021-8 ####[facility] [place] LABCLIA [id number] [facility] [place] [address] [place] [facility] Neutrophils/100 WBC (Bld) 59.5 % Normal [facility] Comment on above: Order Comment: Speci men Type: BLOOD SPECIMENOrdering Facility: [facility] Address: [address] [place] [address] Performed By: #### 5 7021-8 ####[facility] [place] LABCLIA [id number] [facility] [place] [address] [place] Nucleated RBC (Bld) [#/Vol] Normal [facility] Comment on above: Order Comment: Speci men Type: BLOOD SPECIMENOrdering Facility: [facility] Address: [address] [place] [address] Performed By: #### 5 7021-8 ####[facility] [place] LABCLIA [id number] [place] [address] [place] Nucleated RBC/100 WBC (Bld) [Ratio] Normal [facility] Comment on above: Order Comment: Speci men Type: BLOOD SPECIMENOrdering Facility: [facility] Address: [address] [place] [address] Performed By: #### 5 7021-8 ####[facility] LABCLIA [id number] [place] [address] [place] Platelet mean volume (Bld) [Entitic vol] 11.1 fL Normal 9.0-12.7 [facility] Comment on above: Order Comment: Speci men Type: BLOOD SPECIMENOrdering Facility: [facility] Address: [address] [place] [address] Performed By: #### 5 7021-8 ####[facility] LABCLIA [id number] [place] [address] [place] Platelets (Bld) [#/Vol] 91 10*3/uL Low 150-400 [facility] Comment on above: Order Comment: Speci men Type: BLOOD SPECIMENOrdering Facility: [facility] Address: [address] [place] [address] Performed By: #### 5 7021-8 ####[facility] LABCLIA [id number] [place] [address] [place] RBC (Bld) [#/Vol] 2.91 10*6/uL Low 4.20-6.00 [facility] Comment on above: Order Comment: Speci men Type: BLOOD SPECIMENOrdering Facility: [facility] Address: [address] [place] [address] Performed By: #### 5 7021-8 ####[facility] LABCLIA [id number] [place] [address] [place] WBC (Bld) [#/Vol] 3.69 10*3/uL Low 3.70-11.00 [facility] Comment on above: Order Comment: Speci men Type: BLOOD SPECIMENOrdering Facility: [facility] Address: [address] [place] [address] Performed By: #### 5 7021-8 ####[facility] LABCLIA [id number] [place] [address] [place] CTA CHEST (NON GATED) W IVCO N PEon 01-01-2025 CTA CHEST (NON GATED) W IVCON PE Normal [facility] Comprehensive metabolic 2000 panelon 01-01-2025 Albumin [Mass/Vol] 3.6 g/dL Low 3.9-4.9 [facility] Comment on above: Order Comment: Speci men Type: BLOOD SPECIMENOrdering Facility: [facility] Address: [address] [place] [address] Performed By: #### 2 4323-8, 43755-1, 94602-0 ####[facility] LABCLIA [id number] [place] [address] [place] [place] ALP [Catalytic activity/Vol] 77 U/L Normal 38-113 [facility] Comment on above: Order Comment: Speci men Type: BLOOD SPECIMENOrdering Facility: [facility] Address: [address] [place] [address] Performed By: #### 2 4323-8, 65881-7, 34676-3 ####[facility] LABCLIA [id number] [place] [address] [place] ALT With P-5'-P [Catalytic activity/Vol] 15 U/L Normal 10-54 [facility] Comment on above: Order Comment: Speci men Type: BLOOD SPECIMENOrdering Facility: [facility] Address: [address] [place] [address] Performed By: #### 2 4323-8, 64036-6, 34373-1 ####[facility] LABCLIA [id number] [place] [address] [facility] [place] Anion gap [Moles/Vol] 17 mmol/L High 8-15 [facility] Comment on above: Order Comment: Speci men Type: BLOOD SPECIMENOrdering Facility: [facility] Address: [address] [place] [address] Performed By: #### 2 4323-8, 96818-0, 16930-7 ####[facility] LABCLIA [id number] [place] [address] [place] AST With P-5'-P [Catalytic activity/Vol] 21 U/L Normal 14-40 [facility] Comment on above: Order Comment: Speci men Type: BLOOD SPECIMENOrdering Facility: [facility] Address: [address] [place] [address] Performed By: #### 2 4323-8, 58639-3, 41987-7 ####[facility] LABCLIA [id number] [place] [address] [place] Bilirubin [Mass/Vol] 0.3 mg/dL Normal 0.2-1.3 [facility] Comment on above: Order Comment: Speci men Type: BLOOD SPECIMENOrdering Facility: [facility] Address: [address] [place] [address] Performed By: #### 2 4323-8, 29728-2, 41591-0 ####[facility] LABCLIA [id number] [place] [address] [place] Calcium [Mass/Vol] 9.4 mg/dL Normal 8.5-10.2 [facility] Comment on above: Order Comment: Speci men Type: BLOOD SPECIMENOrdering Facility: [facility] Address: [address] [place] [address] Performed By: #### 2 4323-8, 91629-7, 54001-9 ####[facility] LABCLIA [id number] [place] [address] [place] Chloride [Moles/Vol] 96 mmol/L Low 98-107 [facility] Comment on above: Order Comment: Speci men Type: BLOOD SPECIMENOrdering Facility: [facility] Address: [address] [place] [address] Performed By: #### 2 4323-8, 30741-2, 88179-3 ####[facility] LABCLIA [id number] [place] [address] [place] CO2 [Moles/Vol] 21 mmol/L Low 22-30 [facility] Comment on above: Order Comment: Mathew portillo Type: BLOOD SPECIMENOrdering Facility: [facility] Address: [address] [place] [address] Performed By: #### 2 4323-8, 74137-6, 54359-9 ####[facility] LABCLIA [id number] [place] [address] [place] Creatinine [Mass/Vol] 0.80 mg/dL Normal 0.73-1.22 [facility] Comment on above: Order Comment: Mathew portillo Type: BLOOD SPECIMENOrdering Facility: [facility] Address: [address] [place] [address] Performed By: #### 2 4323-8, 39222-3, 90511-6 ####[facility] LABCLIA [id number] [place] [address] [place] eGFRcr SerPlBld CKD-EPI 2020 89 mL/min/1.73m??? Normal >=60 [facility] Comment on above: Order Comment: Mathew portillo Type: BLOOD SPECIMENOrdering Facility: [facility] Address: [address] [place] [address] Result Comment: Sharon mated Glomerular Filtration Rate [...] actual GFR. Performed By: #### 2 4323-8, 02625-0, 50156-4 ####[facility] LABCLIA [id number] [place] [address] [place] Glucose [Mass/Vol] 296 mg/dL High 74-99 [facility] Comment on above: Order Comment: Mathew portillo Type: BLOOD SPECIMENOrdering Facility: [facility] Address: [address] [place] [address] Result Comment: The [place] Diabetes Association (ADA) provides guidance for cutoff [...] Standards of Medical Care in Diabetes 2016, [place] [employer]. Diabetes Care. 2016.39(Suppl 1). Performed By: #### 2 4323-8, 68506-8, 33173-1 ####[facility] LABCLIA [id number] [place] [address] [place] Potassium [Moles/Vol] 4.3 mmol/L Normal 3.7-5.1 [facility] Comment on above: Order Comment: Mathew portillo Type: BLOOD SPECIMENOrdering Facility: [facility] Address: [address] [place] [address] Performed By: #### 2 4323-8, 85846-5, 04524-2 ####[facility] LABCLIA [id number] [place] [address] [place] Protein [Mass/Vol] 7.0 g/dL Normal 6.3-8.0 [facility] Comment on above: Order Comment: Mathew portillo Type: BLOOD SPECIMENOrdering Facility: [facility] Address: [address] [place], [place] [address] Performed By: #### 2 4323-8, 10809-0, 82590-2 ####[facility] LABCLIA [id number] [place] [address] [place] Sodium [Moles/Vol] 134 mmol/L Low 136-144 [facility] Comment on above: Order Comment: Speci men Type: BLOOD SPECIMENOrdering Facility: [facility] Address: [address] [place] [address] Performed By: #### 2 4323-8, 70806-5, 97432-2 ####[facility] LABCLIA [id number] [facility] [place] [address] [place] Urea nitrogen [Mass/Vol] 20 mg/dL Normal 9-24 [facility] Comment on above: Order Comment: Speci men Type: BLOOD SPECIMENOrdering Facility: [facility] Address: [address] [place] [address] Performed By: #### 2 4323-8, 65812-1, 89508-8 ####[facility] LABCLIA [id number] [place] [address] [place] [id number] 01-01-2025 ECG01 Normal [facility] ED NOTEon 01-01-2025 ED NOTE Normal [facility] ED PROV NOTEon 01-01-2025 ED PROV NOTE Normal [facility] HIGH SENSITIVITY TROPONIN T (INITIAL)on 01-01-2025 Troponin T.cardiac High sensitivity method [Mass/Vol] 18 ng/L High <12 [facility] Comment on above: Order Comment: Speci men Type: BLOOD SPECIMENOrdering Facility: [facility] Address: [address] [place] [address] Performed By: #### L [id number] ####[facility] LABCLIA [id number] [place] [address] [place] HIGH SENSITIVITY TROPONIN T (SECOND)on 01-01-2025 Troponin T.cardiac High sensitivity method [Mass/Vol] 17 ng/L High <12 [facility] Comment on above: Order Comment: Speci men Type: BLOOD SPECIMENOrdering Facility: [facility] Address: [address] [place] [address] Performed By: #### L [id number] ####[facility] LABCLIA [id number] [place] [address] [place] HIGH SENSITIVITY TROPONIN T (THIRD) 3 HRS AFTER INITIALon 01-01-2025 Troponin T.cardiac High sensitivity method [Mass/Vol] 19 ng/L High <12 [facility] Comment on above: Order Comment: Speci lindsey Type: BLOOD SPECIMENOrdering Facility: [facility] Address: [address] [place] [address] Performed By: #### L [id number] ####[facility] LABCLIA [id number] [place] [id number] [facility] NT-proBNP [facility] Natriuretic peptide.B prohormone N-Terminal [Mass/Vol] 137 pg/mL Normal <450 [facility] Comment on above: Order Comment: Mayuri lindsey Type: BLOOD SPECIMENOrdering Facility: [facility] Address: [address] [place] [address] Performed By: #### 2 4323-8, 79572-1, 16329-3 ####[facility] LABCLIA [id number] [address] Procalcitonin [facility] 1 03-03-2024 Procalcitonin [Mass/Vol] 0.20 ng/mL High <0.09 [facility] Comment on above: Order Comment: Speci men Type: BLOOD SPECIMENOrdering Facility: [facility] Address: [address] [place] [address] Result Comment: For a guided interpretation of test results, please visit the Change in Procalcitonin Calculator, [email or web address]. Performed By: #### 2 4323-8, 13651-2, 74330-0 ####[facility] LABCLIA [id number] [place] [address] [facility] Resp path 12b Pnl Spec SUZI+p robeon 01-01-2025 Respiratory pathogens DNA and RNA 12b panel SUZI+probe (Unsp spec) Normal [facility] Comment on above: Performed By: #### 9 5941-1 ####[facility] LABCLIA [id number] [place], [place] [id number] [place] [address]#### 68240-5 ####[facility] LABORATORYCLIA [id number] [address] SEPSIS LACTATEon 01-01-2025 Lactate [Moles/Vol] 2.3 mmol/L High <=2.0 [facility] Comment on above: Order Comment: Speci men Type: BLOOD SPECIMENOrdering Facility: [facility] Address: [address] [place] [address] Performed By: #### S LACT ####[facility] LABCLIA [id number] [address] Lactate [Moles/Vol] 2.4 mmol/L High <=2.0 [facility] Comment on above: Order Comment: Speci men Type: BLOOD SPECIMENOrdering Facility: [facility] Address: [address] [place] [address] Performed By: #### S LACT ####[facility] LABCLIA [id number] [address] OF [facility] XR CHEST 2V FRONTAL/LATon XR CHEST 2V FRONTAL/LAT Normal [facility] CNPNon 12-31-2024 CNPN Normal [facility] CBC W Auto Differential pane l (Bld)on 12-30-2024 Basophils (Bld) [#/Vol] 10*3/uL Normal <0.11 [facility] Comment on above: Order Comment: Speci men Type: BLOOD SPECIMENOrdering Facility: [facility] Address: [address] [place] [address] Performed By: #### 5 7021-8 ####[facility] LABORATORYCLIA [id number] [address] Basophils/100 WBC (Bld) 0.6 % Normal [facility] Comment on above: Order Comment: Speci men Type: BLOOD SPECIMENOrdering Facility: [facility] Address: [address] [place] [address] Performed By: #### 5 7021-8 ####[facility]ORATORYCLIA [id number] [address] Differential cell count method Nom (Bld) Auto Normal [facility] Comment on above: Order Comment: Speci men Type: BLOOD SPECIMENOrdering Facility: [facility] Address: [address] [place] [address] Performed By: #### 5 7021-8 ####[facility] LABORATORYCLIA [id number] [address] [place] Eosinophils (Bld) [#/Vol] 10*3/uL Normal <0.46 [facility] Comment on above: Order Comment: Speci men Type: BLOOD SPECIMENOrdering Facility: [facility] Address: [address] [place] [address] Performed By: #### 5 7021-8 ####[facility] LABORATORYCLIA [id number] [address] Eosinophils/100 WBC (Bld) 0.3 % Normal [facility] Comment on above: Order Comment: Speci men Type: BLOOD SPECIMENOrdering Facility: [facility] Address: [address] [place] [address] Performed By: #### 5 7021-8 ####[facility] LABORATORYCLIA [id number] [address] Erythrocyte distribution width (RBC) [Ratio] 16.9 % High 11.5-15.0 [facility] Comment on above: Order Comment: Speci men Type: BLOOD SPECIMENOrdering Facility: [facility] Address: [address] [place] [address] Performed By: #### 5 7021-8 ####[facility] LABORATORYCLIA [id number] [address] Hematocrit (Bld) [Volume fraction] 26.8 % Low 39.0-51.0 [facility] Comment on above: Order Comment: Speci men Type: BLOOD SPECIMENOrdering Facility: [facility] Address: [address] [place] [address] Performed By: #### 5 7021-8 ####[facility]ORATORYCLIA [id number] [place] [address] [place] Hemoglobin (Bld) [Mass/Vol] 9.1 g/dL Low 13.0-17.0 [facility] Comment on above: Order Comment: Speci men Type: BLOOD SPECIMENOrdering Facility: [facility] Address: [address] [place] [address] Performed By: #### 5 7021-8 ####[facility]ORATORYCLIA [id number] [place] [address] [place] Immature granulocytes (Bld) [#/Vol] 10*3/uL Normal <0.10 [facility] Comment on above: Order Comment: Speci men Type: BLOOD SPECIMENOrdering Facility: [facility] Address: [address] [place] [address] Performed By: #### 5 7021-8 ####[facility] LABORATORYCLIA [id number] [place] [address] [place] Immature granulocytes/100 WBC (Bld) 0.3 % Normal [facility] Comment on above: Order Comment: Speci men Type: BLOOD SPECIMENOrdering Facility: [facility] Address: [address] [place] [address] Performed By: #### 5 7021-8 ####[facility] LABORATORYCLIA [id number] [place] [address] [place] Lymphocytes (Bld) [#/Vol] 1.84 10*3/uL Normal 1.00-4.00 [facility] Comment on above: Order Comment: Speci men Type: BLOOD SPECIMENOrdering Facility: [facility] Address: [address] [place] [address] Performed By: #### 5 7021-8 ####[facility]ORATORYCLIA [id number] [address] [place] Lymphocytes/100 WBC (Bld) 59.0 % Normal [facility] Comment on above: Order Comment: Speci men Type: BLOOD SPECIMENOrdering Facility: [facility] Address: [address] [place] [address] Performed By: #### 5 7021-8 ####[facility] LABORATORYCLIA [id number] [address] MCH (RBC) [Entitic mass] 28.4 pg Normal 26.0-34.0 [facility] Comment on above: Order Comment: Speci men Type: BLOOD SPECIMENOrdering Facility: [facility] Address: [address] [place] [address] Performed By: #### 5 7021-8 ####[facility] LABORATORYCLIA [id number] [address] MCHC (RBC) [Mass/Vol] 34.0 g/dL Normal 30.5-36.0 [facility] Comment on above: Order Comment: Speci men Type: BLOOD SPECIMENOrdering Facility: [facility] Address: [address] [place] [address] Result Comment: Cold Agglutinin, Incubated at 37 degrees. Performed By: #### 5 7021-8 ####[facility] LABORATORYCLIA [id number] [address] [place] MCV (RBC) [Entitic vol] 83.8 fL Normal 80.0-100.0 [facility] Comment on above: Order Comment: Speci men Type: BLOOD SPECIMENOrdering Facility: [facility] Address: [address] [place] [address] Performed By: #### 5 7021-8 ####[facility] LABORATORYCLIA [id number] [address] [place] Monocytes (Bld) [#/Vol] 0.24 10*3/uL Normal <0.87 [facility] Comment on above: Order Comment: Speci men Type: BLOOD SPECIMENOrdering Facility: [facility] Address: [address] [place] [address] Performed By: #### 5 7021-8 ####[facility] LABORATORYCLIA [id number] [place] [address] [place] Monocytes/100 WBC (Bld) 7.7 % Normal [facility] Comment on above: Order Comment: Speci men Type: BLOOD SPECIMENOrdering Facility: [facility] Address: [address] [place] [address] Performed By: #### 5 7021-8 ####[facility] LABORATORYCLIA [id number] [place] [address] [place] Neutrophils (Bld) [#/Vol] 1.00 10*3/uL Low 1.45-7.50 [facility] Comment on above: Order Comment: Speci men Type: BLOOD SPECIMENOrdering Facility: [facility] Address: [address] [place] [address] Performed By: #### 5 7021-8 ####[facility] LABORATORYCLIA [id number] [address] [place] Neutrophils/100 WBC (Bld) 32.1 % Normal [facility] Comment on above: Order Comment: Speci men Type: BLOOD SPECIMENOrdering Facility: [facility] Address: [address] [place] [address] Performed By: #### 5 7021-8 ####[facility] LABORATORYCLIA [id number] [place] [address] [place] Nucleated RBC (Bld) [#/Vol] 0.02 10*3/uL High <0.01 [facility] Comment on above: Order Comment: Speci men Type: BLOOD SPECIMENOrdering Facility: [facility] Address: [address] [place] [address] Performed By: #### 5 7021-8 ####[facility] LABORATORYCLIA [id number] [place] [address] [place] Nucleated RBC/100 WBC (Bld) [Ratio] 0.6 /100 WBC Normal [facility] Comment on above: Order Comment: Speci men Type: BLOOD SPECIMENOrdering Facility: [facility] Address: [address] [place] [address] Performed By: #### 5 7021-8 ####[facility] LABORATORYCLIA [id number] [place] [address] [place] Platelet mean volume (Bld) [Entitic vol] 11.5 fL Normal 9.0-12.7 [facility] Comment on above: Order Comment: Speci men Type: BLOOD SPECIMENOrdering Facility: [facility] Address: [address] [place] [address] Performed By: #### 5 7021-8 ####[facility] LABORATORYCLIA [id number] [place] [address] [place] Platelets (Bld) [#/Vol] 100 10*3/uL Low 150-400 [facility] Comment on above: Order Comment: Speci men Type: BLOOD SPECIMENOrdering Facility: [facility] Address: [address] [place] [address] Result Comment: Plat elet count confirmed by manual review of peripheral blood smear. No clot detected. Performed By: #### 5 7021-8 ####[facility] LABORATORYCLIA [id number] [place] [address] [place] RBC (Bld) [#/Vol] 3.20 10*6/uL Low 4.20-6.00 [facility] Comment on above: Order Comment: Speci men Type: BLOOD SPECIMENOrdering Facility: [facility] Address: [address] [place] [address] Performed By: #### 5 7021-8 ####[facility] LABORATORYCLIA [id number] [place] [address] [place] WBC (Bld) [#/Vol] 3.12 10*3/uL Low 3.70-11.00 [facility] Comment on above: Order Comment: Speci men Type: BLOOD SPECIMENOrdering Facility: [facility] Address: [address] [place] [address] Performed By: #### 5 7021-8 ####[facility] LABORATORYCLIA [id number] [place] [address] [place] CNOVSPon 12-30-2024 CNOVSP Normal [facility] TYPE + SCREENon 12-30-2024 ABO B Normal [facility] Comment on above: Order Comment: Speci men Type: BLOOD SPECIMENOrdering Facility: [facility] Address: [address] [place] [address] Performed By: #### T SCR ####[facility] BLOOD BANKCLIA [id number] [address] Rh Nom (Bld) Positive Normal [facility] Comment on above: Order Comment: Speci men Type: BLOOD SPECIMENOrdering Facility: [facility] Address: [address] [place] [address] Performed By: #### T SCR ####[facility] BLOOD BANKCLIA [id number] [address] TYPE AND SCREEN EXPIRATION 01/02/2025 23:59 Normal [facility] Comment on above: Order Comment: Speci men Type: BLOOD SPECIMENOrdering Facility: [facility] Address: [address] [place] [address] Performed By: #### T SCR ####[facility] BLOOD BANKCLIA [id number] [address] Urinalysis complete panel (U )on 12-30-2024 Bilirubin Ql (U) Negative Normal Negative [facility] Comment on above: Order Comment: Speci men Type: URINE SPECIMENOrdering Facility: [facility] Address: [address] [place] [address] Performed By: #### 2 4356-8 ####[facility] LABORATORYCLIA [id number] [address] Clarity (Unsp spec) Clear Normal Clear [facility] Comment on above: Order Comment: Speci men Type: URINE SPECIMENOrdering Facility: [facility] Address: [address] [place] [address] Performed By: #### 2 4356-8 ####[facility] LABORATORYCLIA [id number] [address] Color (U) Light Yellow Normal yellow [facility] Comment on above: Order Comment: Speci men Type: URINE SPECIMENOrdering Facility: [facility] Address: [address] [place] [address] Performed By: #### 2 4356-8 ####[facility] LABORATORYCLIA [id number] [address] [place] Epithelial cells LM.HPF (Urine sed) [#/Area] Few Abnormal None Seen [facility] Comment on above: Order Comment: Speci men Type: URINE SPECIMENOrdering Facility: [facility] Address: [address] [place] [address] Performed By: #### 2 4356-8 ####[facility] LABORATORYCLIA [id number] [address] Glucose Test strip (U) [Mass/Vol] 4+ Abnormal Trace, Negative [facility] Comment on above: Order Comment: Speci men Type: URINE SPECIMENOrdering Facility: [facility] Address: [address] [place] [address] Performed By: #### 2 4356-8 ####[facility] LABORATORYCLIA [id number] [address] [place] Hemoglobin Ql (U) Negative Normal Negative, Trace [facility] Comment on above: Order Comment: Speci men Type: URINE SPECIMENOrdering Facility: [facility] Address: [address] [place] [address] Performed By: #### 2 4356-8 ####[facility] LABORATORYCLIA [id number] [place] [address] [place] Hyaline casts (Urine sed) [#/Area] 1-3 /LPF Abnormal 0 /LPF [facility] Comment on above: Order Comment: Speci men Type: URINE SPECIMENOrdering Facility: [facility] Address: [address] [place] [address] Performed By: #### 2 4356-8 ####[facility] LABORATORYCLIA [id number] [address] [place] Ketones Ql (U) Negative Normal Negative, Trace [facility] Comment on above: Order Comment: Speci men Type: URINE SPECIMENOrdering Facility: [facility] Address: [address] [place] [address] Performed By: #### 2 4356-8 ####[facility] LABORATORYCLIA [id number] [address] [place] Leukocyte esterase Test strip Ql (U) Negative Normal Negative, 25 Ray/uL [facility] Comment on above: Order Comment: Speci men Type: URINE SPECIMENOrdering Facility: [facility] Address: [address] [place] [address] Performed By: #### 2 4356-8 ####[facility] LABORATORYCLIA [id number] [address] Nitrite Ql (U) Negative Normal Negative [facility] Comment on above: Order Comment: Speci men Type: URINE SPECIMENOrdering Facility: [facility] Address: [address] [place] [address] Performed By: #### 2 4356-8 ####[facility] LABORATORYCLIA [id number] [address] pH (U) 5.0 [pH] Normal 5.0-8.0 [facility] Comment on above: Order Comment: Speci men Type: URINE SPECIMENOrdering Facility: [facility] Address: [address] [place] [address] Performed By: #### 2 4356-8 ####[facility] LABORATORYCLIA [id number] [address] Protein (U) [Mass/Vol] Negative Normal Trace, Negative [facility] Comment on above: Order Comment: Speci men Type: URINE SPECIMENOrdering Facility: [facility] Address: [address] [place] [address] Performed By: #### 2 4356-8 ####[facility] LABORATORYCLIA [id number] [place] [address] [place] RBC LM.HPF (Urine sed) [#/Area] 0-3 /HPF Normal 0-3 /HPF [facility] Comment on above: Order Comment: Speci men Type: URINE SPECIMENOrdering Facility: [facility] Address: [address] [place] [address] Performed By: #### 2 4356-8 ####[facility] LABORATORYCLIA [id number] [address] STATES [facility] Specific gravity (U) [Rel density] 1.036 High 1.005-1.030 [facility] Comment on above: Order Comment: Speci men Type: URINE SPECIMENOrdering Facility: [facility] Address: [address] [place] [address] Performed By: #### 2 4356-8 ####[facility] LABORATORYCLIA [id number] [address] Urobilinogen Ql (U) Normal Normal Normal [facility] Comment on above: Order Comment: Speci men Type: URINE SPECIMENOrdering Facility: [facility] Address: [address] [place] [address] Performed By: #### 2 4356-8 ####[facility] LABORATORYCLIA [id number] [address] WBC LM.HPF (Urine sed) [#/Area] 0-5 /HPF Normal 0-5 /HPF [facility] Comment on above: Order Comment: Speci men Type: URINE SPECIMENOrdering Facility: [facility] Address: [address] [place] [address] Performed By: #### 2 4356-8 ####[facility] LABORATORYCLIA [id number] [address] [place] CBC W Auto Differential pane l (Bld)on 12-23-2024 Basophils (Bld) [#/Vol] 0.00 10*3/uL Normal <0.11 [facility] Comment on above: Order Comment: Speci men Type: BLOOD SPECIMENOrdering Facility: [facility] Address: [address] [place] [address] Performed By: #### 5 7021-8 ####[facility]ORATORYCLIA [id number] [address] Basophils/100 WBC (Bld) 0.0 % Normal [facility] Comment on above: Order Comment: Speci men Type: BLOOD SPECIMENOrdering Facility: [facility] Address: [address] [place] [address] Performed By: #### 5 7021-8 ####[facility]ORATORYCLIA [id number] [address] Differential cell count method Nom (Bld) Manual Normal [facility] Comment on above: Order Comment: Speci men Type: BLOOD SPECIMENOrdering Facility: [facility] Address: [address] [place] [address] Performed By: #### 5 7021-8 ####[facility]ORATORYCLIA [id number] [address] Eosinophils (Bld) [#/Vol] 0.00 10*3/uL Normal <0.46 [facility] Comment on above: Order Comment: Speci men Type: BLOOD SPECIMENOrdering Facility: [facility] Address: [address] [place] [address] Performed By: #### 5 7021-8 ####[facility]ORATORYCLIA [id number] [address] Eosinophils/100 WBC (Bld) 0.0 % Normal [facility] Comment on above: Order Comment: Speci men Type: BLOOD SPECIMENOrdering Facility: [facility] Address: [address] [place] [address] Performed By: #### 5 7021-8 ####[facility]ORATORYCLIA [id number] [address] Erythrocyte distribution width (RBC) [Ratio] 17.5 % High 11.5-15.0 [facility] Comment on above: Order Comment: Speci men Type: BLOOD SPECIMENOrdering Facility: [facility] Address: [address] [place] [address] Performed By: #### 5 7021-8 ####[facility] LABORATORYCLIA [id number] [address] STATES [facility] Hematocrit (Bld) [Volume fraction] 28.1 % Low 39.0-51.0 [facility] Comment on above: Order Comment: Speci men Type: BLOOD SPECIMENOrdering Facility: [facility] Address: [address] [place] [address] Performed By: #### 5 7021-8 ####[facility] LABORATORYCLIA [id number] [address] [place] Hemoglobin (Bld) [Mass/Vol] 9.7 g/dL Low 13.0-17.0 [facility] Comment on above: Order Comment: Speci men Type: BLOOD SPECIMENOrdering Facility: [facility] Address: [address] [place] [address] Performed By: #### 5 7021-8 ####[facility]ORATORYCLIA [id number] [address] [place] Lymphocytes (Bld) [#/Vol] 1.42 10*3/uL Normal 1.00-4.00 [facility] Comment on above: Order Comment: Speci men Type: BLOOD SPECIMENOrdering Facility: [facility] Address: [address] [place] [address] Performed By: #### 5 7021-8 ####[facility]ORATORYCLIA [id number] [address] [place] Lymphocytes/100 WBC (Bld) 59.0 % Normal [facility] Comment on above: Order Comment: Speci men Type: BLOOD SPECIMENOrdering Facility: [facility] Address: [address] [place] [address] Performed By: #### 5 7021-8 ####[facility]ORATORYCLIA [id number] [address] [place] MCH (RBC) [Entitic mass] 29.2 pg Normal 26.0-34.0 [facility] Comment on above: Order Comment: Speci men Type: BLOOD SPECIMENOrdering Facility: [facility] Address: [address] [place] [address] Performed By: #### 5 7021-8 ####[facility]ORATORYCLIA [id number] [address] STATES [facility] MCHC (RBC) [Mass/Vol] 34.5 g/dL Normal 30.5-36.0 [facility] Comment on above: Order Comment: Speci men Type: BLOOD SPECIMENOrdering Facility: [facility] Address: [address] [place] [address] Performed By: #### 5 7021-8 ####[facility]ORATORYCLIA [id number] [address] [place] MCV (RBC) [Entitic vol] 84.6 fL Normal 80.0-100.0 [facility] Comment on above: Order Comment: Speci men Type: BLOOD SPECIMENOrdering Facility: [facility] Address: [address] [place] [address] Performed By: #### 5 7021-8 ####[facility]ORATORYCLIA [id number] [address] [place] Monocytes (Bld) [#/Vol] 0.07 10*3/uL Normal <0.87 [facility] Comment on above: Order Comment: Speci men Type: BLOOD SPECIMENOrdering Facility: [facility] Address: [address] [place] [address] Performed By: #### 5 7021-8 ####[facility] LABORATORYCLIA [id number] [address] STATES [facility] Monocytes/100 WBC (Bld) 3.0 % Normal [facility] Comment on above: Order Comment: Speci men Type: BLOOD SPECIMENOrdering Facility: [facility] Address: [address] [place] [address] Performed By: #### 5 7021-8 ####[facility]ORATORYCLIA [id number] [address] [place] MYELO% 1.0 % Normal [facility] Comment on above: Order Comment: Speci men Type: BLOOD SPECIMENOrdering Facility: [facility] Address: [address] [place] [address] Performed By: #### 5 7021-8 ####[facility] LABORATORYCLIA [id number] [address] [place] Neutrophils (Bld) [#/Vol] 0.89 10*3/uL Low 1.45-7.50 [facility] Comment on above: Order Comment: Speci men Type: BLOOD SPECIMENOrdering Facility: [facility] Address: [address] [place] [address] Performed By: #### 5 7021-8 ####[facility]ORATORYCLIA [id number] [address] Neutrophils/100 WBC (Bld) 37.0 % Normal [facility] Comment on above: Order Comment: Speci men Type: BLOOD SPECIMENOrdering Facility: [facility] Address: [address] [place] [address] Performed By: #### 5 7021-8 ####[facility]ORATORYCLIA [id number] [address] Nucleated RBC (Bld) [#/Vol] 10*3/uL Normal <0.01 [facility] Comment on above: Order Comment: Speci men Type: BLOOD SPECIMENOrdering Facility: [facility] Address: [address] [place] [address] Performed By: #### 5 7021-8 ####[facility]ORATORYCLIA [id number] [address] [place] Nucleated RBC/100 WBC (Bld) [Ratio] 0.0 /100 WBC Normal [facility] Comment on above: Order Comment: Speci men Type: BLOOD SPECIMENOrdering Facility: [facility] Address: [address] [place] [address] Performed By: #### 5 7021-8 ####[facility]ORATORYCLIA [id number] [address] [place] Platelet mean volume (Bld) [Entitic vol] 11.6 fL Normal 9.0-12.7 [facility] Comment on above: Order Comment: Speci men Type: BLOOD SPECIMENOrdering Facility: [facility] Address: [address] [place] [address] Performed By: #### 5 7021-8 ####[facility]ORATORYCLIA [id number] [address] [place] Platelets (Bld) [#/Vol] 56 10*3/uL Low 150-400 [facility] Comment on above: Order Comment: Speci men Type: BLOOD SPECIMENOrdering Facility: [facility] Address: [facility] [place] [address] Performed By: #### 5 7021-8 ####[facility]ORATORYCLIA [id number] [address] STATES [facility] Platelets Estimate (Bld) [#/Vol] Decreased Normal [facility] Comment on above: Order Comment: Speci men Type: BLOOD SPECIMENOrdering Facility: [facility] Address: [address] [place] [address] Performed By: #### 5 7021-8 ####[facility]ORATORYCLIA [id number] [address] RBC (Bld) [#/Vol] 3.32 10*6/uL Low 4.20-6.00 [facility] Comment on above: Order Comment: Speci men Type: BLOOD SPECIMENOrdering Facility: [facility] Address: [address] [place] [address] Performed By: #### 5 7021-8 ####[facility]ORATORYCLIA [id number] [address] RED CELL MORPH Reviewed: normal Normal [facility] Comment on above: Order Comment: Speci men Type: BLOOD SPECIMENOrdering Facility: [facility] Address: [address] [place] [address] Performed By: #### 5 7021-8 ####[facility] LABORATORYCLIA [id number] [address] [place] WBC (Bld) [#/Vol] 2.41 10*3/uL Low 3.70-11.00 [facility] Comment on above: Order Comment: Speci men Type: BLOOD SPECIMENOrdering Facility: [facility] Address: [address] [place] [address] Performed By: #### 5 7021-8 ####[facility]ORATORYCLIA [id number] [address] WBC Left Shift Ql (Bld) Present Normal [facility] Comment on above: Order Comment: Speci men Type: BLOOD SPECIMENOrdering Facility: [facility] Address: [address] [place] [address] Performed By: #### 5 7021-8 ####[facility]ORATORYCLIA [id number] [address] TYPE + SCREENon 12-23-2024 ABO B Normal [facility] Comment on above: Order Comment: Speci men Type: BLOOD SPECIMENOrdering Facility: [facility] Address: [address] [place] [address] Performed By: #### T SCR ####[facility] BLOOD BANKCLIA [id number] [address] Rh Nom (Bld) Positive Normal [facility] Comment on above: Order Comment: Speci men Type: BLOOD SPECIMENOrdering Facility: [facility] Address: [address] [place] [address] Performed By: #### T SCR ####[facility] BLOOD BANKCLIA [id number] [address] TYPE AND SCREEN EXPIRATION 12/26/2024 23:59 Normal [facility] Comment on above: Order Comment: Speci men Type: BLOOD SPECIMENOrdering Facility: [facility] Address: [address] [place] [address] Performed By: #### T SCR ####[facility] BLOOD BANKCLIA [id number] [place] [id number] [place] CASE MGT INIT ASSESon 2024 CASE MGT INIT ASSES Normal [facility] CBC panel Auto (Bld)on 12-21 Erythrocyte distribution width (RBC) [Ratio] 17.9 % High 11.5-15.0 [facility] Comment on above: Order Comment: Speci men Type: BLOOD SPECIMENOrdering Facility: [facility] Address: [address] [place] [address] Performed By: #### 5 8410-2 ####[facility] LABCLIA [id number] [place] [id number] [place] [facility] Hematocrit (Bld) [Volume fraction] 25.2 % Low 39.0-51.0 [facility] Comment on above: Order Comment: Speci men Type: BLOOD SPECIMENOrdering Facility: [facility] Address: [address] [place] [address] Performed By: #### 5 8410-2 ####[facility] LABCLIA [id number] [place] [id number] [place] Hemoglobin (Bld) [Mass/Vol] 8.6 g/dL Low 13.0-17.0 [facility] Comment on above: Order Comment: Speci men Type: BLOOD SPECIMENOrdering Facility: [facility] Address: [address] [place] [address] Performed By: #### 5 8410-2 ####[facility] LABCLIA [id number] [place] [address] [place] MCH (RBC) [Entitic mass] 29.3 pg Normal 26.0-34.0 [facility] Comment on above: Order Comment: Speci men Type: BLOOD SPECIMENOrdering Facility: [facility] Address: [address] [place] [address] Performed By: #### 5 8410-2 ####[facility] LABCLIA [id number] [place] [address] [place] MCHC (RBC) [Mass/Vol] 34.1 g/dL Normal 30.5-36.0 [facility] Comment on above: Order Comment: Speci men Type: BLOOD SPECIMENOrdering Facility: [facility] Address: [address] [place] [address] Performed By: #### 5 8410-2 ####[facility] [place] LABCLIA [id number] [place] [address] [place] MCV (RBC) [Entitic vol] 85.7 fL Normal 80.0-100.0 [facility] Comment on above: Order Comment: Speci men Type: BLOOD SPECIMENOrdering Facility: [facility] Address: [address] [place] [address] Performed By: #### 5 8410-2 ####[facility] [place] LABCLIA [id number] [address] [facility] [place] [address] [place] Platelet mean volume (Bld) [Entitic vol] 11.4 fL Normal 9.0-12.7 [facility] Comment on above: Order Comment: Speci men Type: BLOOD SPECIMENOrdering Facility: [facility] Address: [address] [place] [address] Performed By: #### 5 8410-2 ####[facility] [place] LABCLIA [id number] [address] [facility] [place] [address] [place] Platelets (Bld) [#/Vol] 60 10*3/uL Low 150-400 [facility] Comment on above: Order Comment: Speci men Type: BLOOD SPECIMENOrdering Facility: [facility] Address: [address] [place] [address] Performed By: #### 5 8410-2 ####[facility] [place] LABCLIA [id number] [address] [facility] [place] [address] [place] RBC (Bld) [#/Vol] 2.94 10*6/uL Low 4.20-6.00 [facility] Comment on above: Order Comment: Speci men Type: BLOOD SPECIMENOrdering Facility: [facility] Address: [address] [place] [address] Performed By: #### 5 8410-2 ####[facility] [place] LABCLIA [id number] [place] [address] [place] WBC (Bld) [#/Vol] 2.15 10*3/uL Low 3.70-11.00 [facility] Comment on above: Order Comment: Speci men Type: BLOOD SPECIMENOrdering Facility: [facility] Address: [address] [place] [address] Performed By: #### 5 8410-2 ####[facility] [place] LABCLIA [id number] [place] [address] [facility] CNDSon 12-21-2024 CNDS Normal [facility] CNPNon 12-21-2024 CNPN Telephone (HEMAMN) -- JOSS OROPEZA ([id number]) 1945 M Date Time Provider Department 12/21/24 ANNIE FRANK HEMAMN During your visit today, we recorded the following information about you: Yael Olivares 12/21/2024 11:42 AM Signed Patient's daughter, Gracia called inquiring about how many Iron pills her dad is to take, if it is 1 a day or 4 per what the bottle states. She also wanted to inform Dr. Valencia that her father is in the hospital very ill, he was barely able to walk prior to going to the ED. He has received two units of blood. She would like to speak to Dr. Valencia about his plan of care. Please call her at [phone] Edward Nicole RN 12/22/2024 1:31 PM Signed Email sent to Dr. Valencia for advisement Allergies As of Date: 12/21/2024 Noted Allergy Reaction MAXIPIME (CEFEPIME) 06/24/2020 16 - Unknown Date Reviewed: 12/20/2024 Reviewed by: Nelly Hearn, DERIC - Fully Assessed Reason for Visit: Patient Update [1234] Patient Question [3517] Medication Problem [65] Prescriptions as of 12/22/2024 - IFTIKHAR BRADSHAWWILLIAM U-100 INSULIN 100 unit/mL (3 mL) Inject 30 Units subcutaneously every morning. - doxycycline hyclate (VIBRAMYCIN) 100 mg capsule Take 1 capsule by mouth every 12 hours at 6 am and 6 pm for 4 days. - guaiFENesin (MUCINEX) 600 mg 12 hr tablet Take 1 tablet by mouth every 12 hours for 4 days. - lidocaine-prilocaine (EMLA) 2.5-2.5 % cream Apply to anticipated injection site 30 minutes before injection - deferasirox (JADENU) 360 mg tab Take 4 tablets (1440mg) by mouth once daily. Take on an empty stomach. - amLODIPine (NORVASC) 5 mg tablet Take 1 tablet by mouth once daily. - aspirin 81 mg chewable tablet Take 81 mg by mouth once daily. - BD CRISTAL 2ND GEN PEN NEEDLE 32 gauge x - glimepiride (AMARYL) 4 mg tablet Take 4 mg by mouth daily with dinner. - rosuvastatin (CRESTOR) 10 mg tablet Take 1 tablet by mouth daily at bedtime. - MEN'S MULTI-VITAMIN ORAL Take 1 tablet by mouth. - cyanocobalamin (VITAMIN B-12) 1,000 mcg tab Take 1,000 mcg by mouth once daily. - tamsulosin (FLOMAX) 0.4 mg Take 0.4 mg by mouth once daily. - finasteride (PROSCAR) 5 mg tablet Take 5 mg by mouth daily at bedtime. - alendronate (FOSAMAX) 70 mg tablet Take 70 mg by mouth one time a week. In AM with cup of water on empty stomach. Nothing else by mouth and stay upright for 30 min. 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 Pneumonia [J18.9] 06/11/2021 Generalized weakness [R53.1] 06/12/2021 Anemia [D64.9] 05/22/2022 Diabetes (HCC) [E11.9] 05/22/2022 Dyslipidemia [E78.5] 05/22/2022 Obesity, Class I, BMI 30-34.9 [E66.811] 05/26/2022 Cancer of unknown origin (HCC) [C80.1] 12/11/2022 Thrombocytopenia [D69.6] 01/22/2023 TIA (transient ischemic attack) [G45.9] 06/08/2023 BPH (benign prostatic hyperplasia) [N40.0] 06/09/2023 Expressive aphasia [R47.01] 06/09/2023 Myelodysplastic syndrome, unspecified (HCC) [D4*07/24/2023 Pancytopenia (HCC) [D61.818] 03/05/2024 History of stroke [Z86.73] 06/03/2024 Acute midline low back pain without sciatica [M*06/03/2024 Acute bilateral low back pain without sciatica *06/03/2024 Intractable back pain [M54.9] 06/06/2024 Aftercare [Z51.89] 06/09/2024 Hyponatremia [E87.1] 12/19/2024 12/21/2024 Cough [R05.9] 12/19/2024 Encounter Status:Closed by YAEL OLIVARES on 12/21/24 Normal [facility] Comprehensive metabolic 2000 panelon 12-21-2024 Albumin [Mass/Vol] 3.3 g/dL Low 3.9-4.9 [facility] Comment on above: Order Comment: Speci men Type: BLOOD SPECIMENOrdering Facility: [facility] Address: [address] [place] [address] Performed By: #### 1 9123-9, 46335-2 ####[facility] LABCLPRIYA [id number] [place] [address] [facility] ALP [Catalytic activity/Vol] 68 U/L Normal 38-113 [facility] Comment on above: Order Comment: Speci men Type: BLOOD SPECIMENOrdering Facility: [facility] Address: [address] [place] [address] Performed By: #### 1 23-9, 61690-5 ####[facility] [place] LABCLIA [id number] [place] [address] [place] ALT With P-5'-P [Catalytic activity/Vol] 12 U/L Normal 10-54 [facility] Comment on above: Order Comment: Speci men Type: BLOOD SPECIMENOrdering Facility: [facility] Address: [address] [place] [address] Performed By: #### 1 23-9, 65488-4 ####[facility] [place] LABCLIA [id number] [address] [facility] [place] [address] [place] Anion gap [Moles/Vol] 13 mmol/L Normal 8-15 [facility] Comment on above: Order Comment: Speci men Type: BLOOD SPECIMENOrdering Facility: [facility] Address: [address] [place] [address] Performed By: #### 1 239, 61126-4 ####[facility] [place] LABCLIA [id number] [address] [facility] [place] [address] [place] AST With P-5'-P [Catalytic activity/Vol] 17 U/L Normal 14-40 [facility] Comment on above: Order Comment: Speci men Type: BLOOD SPECIMENOrdering Facility: [facility] Address: [address] [place] [address] Performed By: #### 1 239, 54477-9 ####[facility] [place] LABCLIA [id number] [address] [facility] [place] [address] [place] Bilirubin [Mass/Vol] 0.2 mg/dL Normal 0.2-1.3 [facility] Comment on above: Order Comment: Speci men Type: BLOOD SPECIMENOrdering Facility: [facility] Address: [address] [place] [address] Performed By: #### 1 23-9, 30499-3 ####[facility] [place] LABCLIA [id number] [place] [address] [place] Calcium [Mass/Vol] 8.5 mg/dL Normal 8.5-10.2 [facility] Comment on above: Order Comment: Speci men Type: BLOOD SPECIMENOrdering Facility: [facility] Address: [address] [place] [address] Performed By: #### 1 9123-9, 89521-2 ####[facility] [place] LABCLIA [id number] [facility] [place] [address] [place] Chloride [Moles/Vol] 103 mmol/L Normal 98-107 [facility] Comment on above: Order Comment: Speci men Type: BLOOD SPECIMENOrdering Facility: [facility] Address: [address] [place] [address] Performed By: #### 1 9123-9, 39596-3 ####[facility] LABCLIA [id number] [place] [address] [place] CO2 [Moles/Vol] 19 mmol/L Low 22-30 [facility] Comment on above: Order Comment: Speci men Type: BLOOD SPECIMENOrdering Facility: [facility] Address: [address] [place] [address] Performed By: #### 1 9123-9, 35907-8 ####[facility] LABCLIA [id number] [place] [address] [place] Creatinine [Mass/Vol] 0.74 mg/dL Normal 0.73-1.22 [facility] Comment on above: Order Comment: Speci men Type: BLOOD SPECIMENOrdering Facility: [facility] Address: [address] [place] [address] Performed By: #### 1 9123-9, 41634-1 ####[facility] LABCLIA [id number] [place] [address] [place] eGFRcr SerPlBld CKD-EPI 2020 91 mL/min/1.73m??? Normal >=60 [facility] Comment on above: Order Comment: Speci men Type: BLOOD SPECIMENOrdering Facility: [facility] Address: [address] [place] [address] Result Comment: Sharon mated Glomerular Filtration Rate [...] actual GFR. Performed By: #### 1 9123-9, 49357-6 ####[facility] LABCLIA [id number] [place] [address] [place] Glucose [Mass/Vol] 155 mg/dL High 74-99 [facility] Comment on above: Order Comment: Mathew portillo Type: BLOOD SPECIMENOrdering Facility: [facility] Address: [address] [place] [address] Result Comment: The [place] Diabetes Association (ADA) provides guidance for cutoff [...] Standards of Medical Care in Diabetes 2016, [place] Diabetes Association. Diabetes Care. 2016.39(Suppl 1). Performed By: #### 1 9123-9, 56963-2 ####[facility] LABCLIA [id number] [place] [address] [place] Potassium [Moles/Vol] 4.0 mmol/L Normal 3.7-5.1 [facility] Comment on above: Order Comment: Mathew portillo Type: BLOOD SPECIMENOrdering Facility: [facility] Address: [address] [id number] Performed By: #### 1 9123-9, 35257-1 ####[facility] LABCLIA [id number] [facility] [place] [address] [place] Protein [Mass/Vol] 6.3 g/dL Normal 6.3-8.0 [facility] Comment on above: Order Comment: Speci men Type: BLOOD SPECIMENOrdering Facility: [facility] Address: [address] [place] [address] Performed By: #### 1 9123-9, 62151-2 ####[facility] LABCLIA [id number] [place] [address] [place] Sodium [Moles/Vol] 135 mmol/L Low 136-144 [facility] Comment on above: Order Comment: Speci men Type: BLOOD SPECIMENOrdering Facility: [facility] Address: [address] [place] [address] Performed By: #### 1 9123-9, 21172-9 ####[facility] LABCLIA [id number] [place] [address] [place] Urea nitrogen [Mass/Vol] 12 mg/dL Normal 9-24 [facility] Comment on above: Order Comment: Speci men Type: BLOOD SPECIMENOrdering Facility: [facility] Address: [address] [place] [address] Performed By: #### 1 9123-9, 68181-0 ####[facility] LABCLIA [id number] [place] [address] [place] Magnesium SerPl-mCncon 12-21 Magnesium [Mass/Vol] 1.7 mg/dL Normal 1.7-2.3 [facility] Comment on above: Order Comment: Speci men Type: BLOOD SPECIMENOrdering Facility: [facility] Address: [address] [place] [address] Performed By: #### 1 9123-9, 09239-9 ####[facility] LABCLIA [id number] [place] [address] [place] THERAPY NTon 12-21-2024 THERAPY NT Normal [facility] Basic metabolic 2000 panelon 12-20-2024 Anion gap [Moles/Vol] 15 mmol/L Normal 8-15 [facility] Comment on above: Order Comment: Speci men Type: BLOOD SPECIMENOrdering Facility: [facility] Address: [address] [place] [address] Performed By: #### 2 4321-2 ####[facility] LABCLIA [id number] [facility] [place] [address] [place] Calcium [Mass/Vol] 8.5 mg/dL Normal 8.5-10.2 [facility] Comment on above: Order Comment: Speci men Type: BLOOD SPECIMENOrdering Facility: [facility] Address: [address] [place] [address] Performed By: #### 2 4321-2 ####[facility] LABCLIA [id number] [place] [address] [place] Chloride [Moles/Vol] 96 mmol/L Low 98-107 [facility] Comment on above: Order Comment: Speci men Type: BLOOD SPECIMENOrdering Facility: [facility] Address: [address] [place] [address] Performed By: #### 2 4321-2 ####[facility] LABCLIA [id number] [place] [address] [place] CO2 [Moles/Vol] 19 mmol/L Low 22-30 [facility] Comment on above: Order Comment: Speci men Type: BLOOD SPECIMENOrdering Facility: [facility] Address: [address] [place] [address] Performed By: #### 2 4321-2 ####[facility] LABCLIA [id number] [place] [address] [place] Creatinine [Mass/Vol] 0.78 mg/dL Normal 0.73-1.22 [facility] Comment on above: Order Comment: Speci men Type: BLOOD SPECIMENOrdering Facility: [facility] Address: [address] [place] [address] Performed By: #### 2 4321-2 ####[facility] LABCLIA [id number] [place] [address] [place] eGFRcr SerPlBld CKD-EPI 2020 90 mL/min/1.73m??? Normal >=60 [facility] Comment on above: Order Comment: Mathew portilol Type: BLOOD SPECIMENOrdering Facility: [facility] Address: [address] [place] [address] Result Comment: Sharon mated Glomerular Filtration Rate [...] reflect actual GFR. Performed By: #### 2 4321-2 ####[facility] LABIA [id number] [place] [address] [place] Glucose [Mass/Vol] 282 mg/dL High 74-99 [facility] Comment on above: Order Comment: Mathew portillo Type: BLOOD SPECIMENOrdering Facility: [facility] Address: [address] [place] [address] Result Comment: The [place] Diabetes Association (ADA) provides guidance for cutoff [...] Standards of Medical Care in Diabetes 2016, [place] Diabetes Association. Diabetes Care. 2016.39(Suppl 1). Performed By: #### 2 4321-2 ####[facility] LABCLIA [id number] [place] [address] [place] Potassium [Moles/Vol] 3.9 mmol/L Normal 3.7-5.1 [facility] Comment on above: Order Comment: Speci men Type: BLOOD SPECIMENOrdering Facility: [facility] Address: [address] [place] [address] Performed By: #### 2 4321-2 ####[facility] LABCLIA [id number] [facility] [place] [address] [place] Sodium [Moles/Vol] 130 mmol/L Low 136-144 [facility] Comment on above: Order Comment: Speci men Type: BLOOD SPECIMENOrdering Facility: [facility] Address: [address] [place] [address] Performed By: #### 2 4321-2 ####[facility] LABCLIA [id number] [facility] [place] [address] [place] Urea nitrogen [Mass/Vol] 12 mg/dL Normal 9-24 [facility] Comment on above: Order Comment: Speci men Type: BLOOD SPECIMENOrdering Facility: [facility] Address: [address] [place] [address] Performed By: #### 2 4321-2 ####[facility] LABCLIA [id number] [place] [address] [place] Anion gap [Moles/Vol] 14 mmol/L Normal 8-15 [facility] Comment on above: Order Comment: Speci men Type: BLOOD SPECIMENOrdering Facility: [facility] Address: [address] [place] [address] Performed By: #### 2 4321-2, ####[facility] LABCLIA [id number] [facility] [place] [address] [place] Calcium [Mass/Vol] 8.3 mg/dL Low 8.5-10.2 [facility] Comment on above: Order Comment: Speci men Type: BLOOD SPECIMENOrdering Facility: [facility] Address: [address] [place] [address] Performed By: #### 2 4321-2, ####[facility] LABCLIA [id number] [place] [address] [place] Chloride [Moles/Vol] 98 mmol/L Normal 98-107 [facility] Comment on above: Order Comment: Speci men Type: BLOOD SPECIMENOrdering Facility: [facility] Address: [address] [place] [address] Performed By: #### 2 4321-2, ####[facility] LABCLIA [id number] [place] [address] [place] CO2 [Moles/Vol] 20 mmol/L Low 22-30 [facility] Comment on above: Order Comment: Speci men Type: BLOOD SPECIMENOrdering Facility: [facility] Address: [address] [place] [address] Performed By: #### 2 4321-2, ####[facility] LABCLIA [id number] [place] [address] [place] Creatinine [Mass/Vol] 0.79 mg/dL Normal 0.73-1.22 [facility] Comment on above: Order Comment: Speci men Type: BLOOD SPECIMENOrdering Facility: [facility] Address: [address] [place] [address] Performed By: #### 2 4321-2, ####[facility] LABCLIA [id number] [place] [address] [place] eGFRcr SerPlBld CKD-EPI 2020 89 mL/min/1.73m??? Normal >=60 [facility] Comment on above: Order Comment: Speci men Type: BLOOD SPECIMENOrdering Facility: [facility] Address: [address] [place] [address] Result Comment: Sharon mated Glomerular Filtration Rate [...] actual GFR. Performed By: #### 2 4321-2, ####[facility] LABCLIA [id number] [place] [address] [place] Glucose [Mass/Vol] 206 mg/dL High 74-99 [facility] Comment on above: Order Comment: Mathew portillo Type: BLOOD SPECIMENOrdering Facility: [facility] Address: [address] [place] [address] Result Comment: The [place] Diabetes Association (ADA) provides guidance for cutoff [...] Standards of Medical Care in Diabetes 2016, [place] Diabetes Association. Diabetes Care. 2016.39(Suppl 1). Performed By: #### 2 432-2, ####[facility] [employer] LABCLIA [id number] [place] [address] [place] Potassium [Moles/Vol] 3.8 mmol/L Normal 3.7-5.1 [facility] Comment on above: Order Comment: Mathew portillo Type: BLOOD SPECIMENOrdering Facility: [facility] Address: [address] [place] [address] Performed By: #### 2 432-2, ####[facility] LABCLIA [id number] [place] [address] [place] Sodium [Moles/Vol] 132 mmol/L Low 136-144 [facility] Comment on above: Order Comment: Mathew portillo Type: BLOOD SPECIMENOrdering Facility: [facility] Address: [address] [place] [address] Performed By: #### 2 4321-2, ####[facility] LABCLIA [id number] [place] [address] [place] [facility] Urea nitrogen [Mass/Vol] 12 mg/dL Normal 9- [facility] Comment on above: Order Comment: Speci men Type: BLOOD SPECIMENOrdering Facility: [facility] Address: [address] [place] [address] Performed By: #### 2 4321-2, ####[facility] LABCLIA [id number] [place] [address] [facility] CBC panel Auto (Bld)on 12-20 Erythrocyte distribution width (RBC) [Ratio] 19.7 % High 11.5-15.0 [facility] Comment on above: Order Comment: Speci men Type: BLOOD SPECIMENOrdering Facility: [facility] Address: [address] [place] [address] Performed By: #### 5 8410-2 ####[facility] LABCLIA [id number] [place], [place] [address] [place] [address]#### 77579-9 ####[facility] LABCLIA [id number] [address] Hematocrit (Bld) [Volume fraction] 20.5 % Low 39.0-51.0 [facility] Comment on above: Order Comment: Speci men Type: BLOOD SPECIMENOrdering Facility: [facility] Address: [address] [place] [address] Performed By: #### 5 8410-2 ####[facility] LABCLIA [id number] [place] [id number] [facility]#### 13759-9 ####[facility] LABCLIA [id number] [address] Hemoglobin (Bld) [Mass/Vol] 7.0 g/dL Low 13.0-17.0 [facility] Comment on above: Order Comment: Speci men Type: BLOOD SPECIMENOrdering Facility: [facility] Address: [address] [place] [address] Performed By: #### 5 8410-2 ####[facility] LABCLIA [id number] [address]#### 47371-5 ####[facility] LABCLIA [id number] [address] [place] MCH (RBC) [Entitic mass] 29.4 pg Normal 26.0-34.0 [facility] Comment on above: Order Comment: Speci men Type: BLOOD SPECIMENOrdering Facility: [facility] Address: [address] [place] [address] Performed By: #### 5 8410-2 ####[facility] LABCLIA [id number] [address]#### 01991-6 ####[facility] LABCLIA [id number] [address] [place] MCHC (RBC) [Mass/Vol] 34.1 g/dL Normal 30.5-36.0 [facility] Comment on above: Order Comment: Speci men Type: BLOOD SPECIMENOrdering Facility: [facility] Address: [address] [place] [address] Performed By: #### 5 8410-2 ####[facility] LABCLIA [id number] [address]#### 53183-9 ####[facility] LABCLIA [id number] [address] [place] MCV (RBC) [Entitic vol] 86.1 fL Normal 80.0-100.0 [facility] Comment on above: Order Comment: Speci men Type: BLOOD SPECIMENOrdering Facility: [facility] Address: [address] [place] [address] Performed By: #### 5 8410-2 ####[facility] LABCLIA [id number] [facility] [place] [address] [facility] [place]#### 49426-4 ####[facility] LABCLIA [id number] [place] [address] [place] Platelet mean volume (Bld) [Entitic vol] 11.1 fL Normal 9.0-12.7 [facility] Comment on above: Order Comment: Speci men Type: BLOOD SPECIMENOrdering Facility: [facility] Address: [address] [place] [address] Performed By: #### 5 8410-2 ####[facility] LABCLIA [id number] [facility], [place] [address] [place] [address]#### 35547-2 ####[facility] LABCLIA [id number] [place] [address] [place] Platelets (Bld) [#/Vol] 62 10*3/uL Low 150-400 [facility] Comment on above: Order Comment: Speci men Type: BLOOD SPECIMENOrdering Facility: [facility] Address: [address] [place] [address] Performed By: #### 5 8410-2 ####[facility] LABCLIA [id number] [address] [place]#### 72257-4 ####[facility] LABCLIA [id number] [address] [place] RBC (Bld) [#/Vol] 2.38 10*6/uL Low 4.20-6.00 [facility] Comment on above: Order Comment: Speci men Type: BLOOD SPECIMENOrdering Facility: [facility] Address: [address] [place] [address] Performed By: #### 5 8410-2 ####[facility] LABCLIA [id number] [facility] [place] [address] [place]#### 96871-7 ####[facility] LABCLIA [id number] [place] [address] [place] WBC (Bld) [#/Vol] 2.02 10*3/uL Low 3.70-11.00 [facility] Comment on above: Order Comment: Speci men Type: BLOOD SPECIMENOrdering Facility: [facility] Address: [address] [place] [address] Performed By: #### 5 8410-2 ####[facility] LABCLIA [id number] [place] [address] [place]#### 63456-3 ####[facility] LABCLIA [id number] [place] [address] [place] Erythrocyte distribution width (RBC) [Ratio] 19.9 % High 11.5-15.0 [facility] Comment on above: Order Comment: Speci men Type: BLOOD SPECIMENOrdering Facility: [facility] Address: [address] [place] [address] Performed By: #### 5 8410-2 ####[facility] LABCLIA [id number] [place] [address] [place] Hematocrit (Bld) [Volume fraction] 18.9 % Low 39.0-51.0 [facility] Comment on above: Order Comment: Speci men Type: BLOOD SPECIMENOrdering Facility: [facility] Address: [address] [place] [address] Performed By: #### 5 8410-2 ####[facility] LABCLIA [id number] [place] [address] [place] Hemoglobin (Bld) [Mass/Vol] 6.4 g/dL Low 13.0-17.0 [facility] Comment on above: Order Comment: Speci men Type: BLOOD SPECIMENOrdering Facility: [facility] Address: [address] [place] [address] Performed By: #### 5 8410-2 ####[facility] LABCLIA [id number] [place] [address] [place] [facility] MCH (RBC) [Entitic mass] 29.2 pg Normal 26.0-34.0 [facility] Comment on above: Order Comment: Speci men Type: BLOOD SPECIMENOrdering Facility: [facility] Address: [address] [place] [address] Performed By: #### 5 8410-2 ####[facility] LABCLIA [id number] [place] [address] [place] MCHC (RBC) [Mass/Vol] 33.9 g/dL Normal 30.5-36.0 [facility] Comment on above: Order Comment: Speci men Type: BLOOD SPECIMENOrdering Facility: [facility] Address: [address] [place] [address] Performed By: #### 5 8410-2 ####[facility] LABCLIA [id number] [place] [address] [place] MCV (RBC) [Entitic vol] 86.3 fL Normal 80.0-100.0 [facility] Comment on above: Order Comment: Speci men Type: BLOOD SPECIMENOrdering Facility: [facility] Address: [address] [place] [address] Performed By: #### 5 8410-2 ####[facility] LABCLIA [id number] [place] [address] [place] Platelet mean volume (Bld) [Entitic vol] 10.6 fL Normal 9.0-12.7 [facility] Comment on above: Order Comment: Speci men Type: BLOOD SPECIMENOrdering Facility: [facility] Address: [address] [place] [address] Performed By: #### 5 8410-2 ####[facility] LABCLIA [id number] [place] [address] [facility] [place] Platelets (Bld) [#/Vol] 59 10*3/uL Low 150-400 [facility] Comment on above: Order Comment: Speci men Type: BLOOD SPECIMENOrdering Facility: [facility] Address: [address] [place] [address] Performed By: #### 5 8410-2 ####[facility] LABCLIA [id number] [place] [address] [facility] RBC (Bld) [#/Vol] 2.19 10*6/uL Low 4.20-6.00 [facility] Comment on above: Order Comment: Speci men Type: BLOOD SPECIMENOrdering Facility: [facility] Address: [address] [place] [address] Performed By: #### 5 8410-2 ####[facility] LABCLIA [id number] [place] [address] [facility] WBC (Bld) [#/Vol] 1.74 10*3/uL Low 3.70-11.00 [facility] Comment on above: Order Comment: Speci men Type: BLOOD SPECIMENOrdering Facility: [facility] Address: [address] [place] [address] Performed By: #### 5 8410-2 ####[facility] LABCLIA [id number] [place] [id number] [facility] HISTORY PHYSICALon HISTORY PHYSICAL Normal [facility] HbA1c (Bld)on 12-20-2024 Average glucose Estimated from glycated hemoglobin (Bld) [Mass/Vol] 246 mg/dL Normal [facility] Comment on above: Order Comment: Speci men Type: BLOOD SPECIMENOrdering Facility: [facility] Address: [address] [place] [address] Result Comment: eAG: (Estimated average glucose) is a calculated value from HgbA1c and is operations support representative of the average blood glucose level in the last 2-3 month period. Performed By: #### 5 8410-2 ####[facility] LABCLIA [id number] [address]#### 15788-5 ####[facility] LABCLIA [id number] [address] HbA1c (Bld) [Mass fraction] 10.2 % High 4.3-5.6 [facility] Comment on above: Order Comment: Speci men Type: BLOOD SPECIMENOrdering Facility: [facility] Address: [address] [place] [address] Result Comment: [place] Diabetes Association guidelines indicate that patients with HgbA1c in the range 5.7-6.4% are at increased risk for development of diabetes, and intervention by lifestyle modification may be beneficial. HgbA1c greater or equal to 6.5% is considered diagnostic of diabetes. Performed By: #### 5 8410-2 ####[facility] LABCLIA [id number] [place] [address] [place]#### 79369-1 ####[facility] LABCLIA [id number] [address] [place] Lactate (Bld) [Moles/Vol]on 12-20-2024 Lactate [Moles/Vol] 1.9 mmol/L Normal 0.5-2.2 [facility] Comment on above: Order Comment: Speci men Type: BLOOD SPECIMENOrdering Facility: [facility] Address: [address] [place] [address] Performed By: #### 3 2693-4 ####[facility] LABCLIA [id number] [place] [id number] [place] Magnesium SerPl-mCncon 12-20 Magnesium [Mass/Vol] 1.6 mg/dL Low 1.7-2.3 [facility] Comment on above: Order Comment: Speci men Type: BLOOD SPECIMENOrdering Facility: [facility] Address: [address] [place] [address] Performed By: #### 2 4321-2, 30097-9 ####[facility] LABCLIA [id number] [place] [address] [place] TYPE + SCREENon 12-20-2024 ABO B Normal [facility] Comment on above: Order Comment: Speci men Type: BLOOD SPECIMENOrdering Facility: [facility] Address: [address] [place] [address] Performed By: #### T SCR ####[facility] BLOOD BANKCLIA [id number] [address] Rh Nom (Bld) Positive Normal [facility] Comment on above: Order Comment: Speci men Type: BLOOD SPECIMENOrdering Facility: [facility] Address: [address] [place] [address] Performed By: #### T SCR ####[facility] BLOOD BANKCLIA [id number] [address] TYPE AND SCREEN EXPIRATION 12/23/2024 23:59 Normal [facility] Comment on above: Order Comment: Speci men Type: BLOOD SPECIMENOrdering Facility: [facility] Address: [address] [place] [address] Performed By: #### T SCR ####[facility] BLOOD BANKCLIA [id number] [address] OF [facility] ALLIED HEALTHon 12-19-2024 ALLIED HEALTH Normal [facility] Bacteria Bld Culton 12-20-19 Bacteria identified Cx Nom (Bld) CULTURE, BLOOD: No growth 5 days Normal [facility] Comment on above: Performed By: #### 6 00-7 ####[facility] LABORATORYCLIA [id number] [address] Bacteria identified Cx Nom (Bld) CULTURE, BLOOD: No growth 5 days Normal [facility] Comment on above: Performed By: #### 6 00-7 ####[facility] LABORATORYCLIA [id number] [address] Bacteria Spec Resp Culton Bacteria identified Respiratory culture Nom (Unsp spec) CULTURE, RESPIRATORY: Moderate Normal respiratory kimberly present GRAM STAIN: Moderate Mixed oral kimberly Rare Polymorphonuclear leukocytes Rare Epithelial cells Abnormal [facility] Comment on above: Performed By: #### 3 2355-0 ####[facility] LABORATORYCLIA [id number] [place] [address] [place] Basic metabolic 2000 panelon 12-19-2024 Anion gap [Moles/Vol] 13 mmol/L Normal 8-15 [facility] Comment on above: Order Comment: Speci men Type: BLOOD SPECIMENOrdering Facility: [facility] Address: [address] [place] [address] Performed By: #### 2 4321-2 ####[facility] [place] LABCLIA [id number] [place] [address] [place] Calcium [Mass/Vol] 8.6 mg/dL Normal 8.5-10.2 [facility] Comment on above: Order Comment: Speci men Type: BLOOD SPECIMENOrdering Facility: [facility] Address: [address] [place] [address] Performed By: #### 2 4321-2 ####[facility] [place] LABCLIA [id number] [place] [id number] [place] Chloride [Moles/Vol] 97 mmol/L Low 98-107 [facility] Comment on above: Order Comment: Speci men Type: BLOOD SPECIMENOrdering Facility: [facility] Address: [address] [place] [address] Performed By: #### 2 4321-2 ####[facility] [place] LABCLIA [id number] [place] [address] [place] CO2 [Moles/Vol] 20 mmol/L Low 22-30 [facility] Comment on above: Order Comment: Speci men Type: BLOOD SPECIMENOrdering Facility: [facility] Address: [address] [place] [address] Performed By: #### 2 4321-2 ####[facility] [place] LABCLIA [id number] [place] [address] [place] Creatinine [Mass/Vol] 0.81 mg/dL Normal 0.73-1.22 [facility] Comment on above: Order Comment: Speci men Type: BLOOD SPECIMENOrdering Facility: [facility] Address: [address] [place] [address] Performed By: #### 2 4321-2 ####[facility] LABCLIA [id number] [place] [address] [place] eGFRcr SerPlBld CKD-EPI 2020 89 mL/min/1.73m??? Normal >=60 [facility] Comment on above: Order Comment: Mathew portillo Type: BLOOD SPECIMENOrdering Facility: [facility] Address: [address] [place] [address] Result Comment: Sharon mated Glomerular Filtration Rate [...] reflect actual GFR. Performed By: #### 2 4321-2 ####[facility] LABCLIA [id number] [place] [address] [place] Glucose [Mass/Vol] 314 mg/dL High 74-99 [facility] Comment on above: Order Comment: Mathew portillo Type: BLOOD SPECIMENOrdering Facility: [facility] Address: [address] [place] [address] Result Comment: The [place] Diabetes Association (ADA) provides guidance for cutoff [...] Standards of Medical Care in Diabetes 2016, [place] [employer]. Diabetes Care. 2016.39(Suppl 1). Performed By: #### 2 4321-2 ####[facility] LABCLIA [id number] [place] [address] [place] Potassium [Moles/Vol] 4.0 mmol/L Normal 3.7-5.1 [facility] Comment on above: Order Comment: Speci men Type: BLOOD SPECIMENOrdering Facility: [facility] Address: [address] [place] [address] Performed By: #### 2 4321-2 ####[facility] [place] LABCLIA [id number] [place] [address] [place] Sodium [Moles/Vol] 130 mmol/L Low 136-144 [facility] Comment on above: Order Comment: Speci men Type: BLOOD SPECIMENOrdering Facility: [facility] Address: [address] [place] [address] Performed By: #### 2 4321-2 ####[facility] LABCLIA [id number] [address] [place] Urea nitrogen [Mass/Vol] 15 mg/dL Normal 9-24 [facility] Comment on above: Order Comment: Speci men Type: BLOOD SPECIMENOrdering Facility: [facility] Address: [address] [place] [address] Performed By: #### 2 4321-2 ####[facility] LABCLIA [id number] [place] [id number] [place] CBC W Auto Differential pane l (Bld)on 12-19-2024 Anisocytosis Ql (Bld) Present Normal [facility] Comment on above: Order Comment: Speci men Type: BLOOD SPECIMENOrdering Facility: [facility] Address: [address] [place] [address] Performed By: #### 5 7021-8 ####[facility] [place] LABCLIA [id number] [address] [place] Basophils (Bld) [#/Vol] 0.00 10*3/uL Normal <0.11 [facility] Comment on above: Order Comment: Speci men Type: BLOOD SPECIMENOrdering Facility: [facility] Address: [address] [place] [address] Performed By: #### 5 7021-8 ####[facility] [place] LABCLIA [id number] [place] [address] [place] Basophils/100 WBC (Bld) 0.0 % Normal [facility] Comment on above: Order Comment: Speci men Type: BLOOD SPECIMENOrdering Facility: [facility] Address: [address] [place] [address] Performed By: #### 5 7021-8 ####[facility] [place] LABCLIA [id number] [place] [address] [facility] [place] Differential cell count method Nom (Bld) Manual Normal [facility] Comment on above: Order Comment: Speci men Type: BLOOD SPECIMENOrdering Facility: [facility] Address: [address] [place] [address] Performed By: #### 5 7021-8 ####[facility] [place] LABCLIA [id number] [place] [address] [place] DIMORPHIC POPULATION Present Normal [facility] Comment on above: Order Comment: Speci men Type: BLOOD SPECIMENOrdering Facility: [facility] Address: [address] [place] [address] Performed By: #### 5 7021-8 ####[facility] [place] LABCLIA [id number] [place] [address] [facility] [place] Eosinophils (Bld) [#/Vol] 0.00 10*3/uL Normal <0.46 [facility] Comment on above: Order Comment: Speci men Type: BLOOD SPECIMENOrdering Facility: [facility] Address: [address] [place] [address] Performed By: #### 5 7021-8 ####[facility] [place] LABCLIA [id number] [place] [address] [facility] [place] Eosinophils/100 WBC (Bld) 0.0 % Normal [facility] Comment on above: Order Comment: Speci men Type: BLOOD SPECIMENOrdering Facility: [facility] Address: [address] [place] [address] Performed By: #### 5 7021-8 ####[facility] [place] LABCLIA [id number] [place] [address] [place] Erythrocyte distribution width (RBC) [Ratio] 19.7 % High 11.5-15.0 [facility] Comment on above: Order Comment: Speci men Type: BLOOD SPECIMENOrdering Facility: [facility] Address: [address] [place] [address] Performed By: #### 5 7021-8 ####[facility] [place] LABCLIA [id number] [place] [address] [place] Giant platelets LM Ql (Bld) Occasional Normal [facility] Comment on above: Order Comment: Speci men Type: BLOOD SPECIMENOrdering Facility: [facility] Address: [address] [place] [address] Performed By: #### 5 7021-8 ####[facility] LABCLIA [id number] [place] [address] [place] Hematocrit (Bld) [Volume fraction] 23.2 % Low 39.0-51.0 [facility] Comment on above: Order Comment: Speci men Type: BLOOD SPECIMENOrdering Facility: [facility] Address: [address] [place] [address] Performed By: #### 5 7021-8 ####[facility] LABCLIA [id number] [place] [address] [place] Hemoglobin (Bld) [Mass/Vol] 7.9 g/dL Low 13.0-17.0 [facility] Comment on above: Order Comment: Speci men Type: BLOOD SPECIMENOrdering Facility: [facility] Address: [address] [place] [address] Performed By: #### 5 7021-8 ####[facility] [place] LABCLIA [id number] [place] [address] [facility] [place] Lymphocytes (Bld) [#/Vol] 0.95 10*3/uL Low 1.00-4.00 [facility] Comment on above: Order Comment: Speci men Type: BLOOD SPECIMENOrdering Facility: [facility] Address: [address] [place] [address] Performed By: #### 5 7021-8 ####[facility] [place] LABCLIA [id number] [place] [address] [facility] Lymphocytes/100 WBC (Bld) 53.0 % Normal [facility] Comment on above: Order Comment: Speci men Type: BLOOD SPECIMENOrdering Facility: [facility] Address: [address] [place] [address] Performed By: #### 5 7021-8 ####[facility] LABCLIA [id number] [place] [address] [place] MCH (RBC) [Entitic mass] 28.8 pg Normal 26.0-34.0 [facility] Comment on above: Order Comment: Speci men Type: BLOOD SPECIMENOrdering Facility: [facility] Address: [address] [place] [address] Performed By: #### 5 7021-8 ####[facility] [place] LABCLIA [id number] [place] [id number] [place] MCHC (RBC) [Mass/Vol] 34.1 g/dL Normal 30.5-36.0 [facility] Comment on above: Order Comment: Speci men Type: BLOOD SPECIMENOrdering Facility: [facility] Address: [address] [place] [address] Performed By: #### 5 7021-8 ####[facility] [place] LABCLIA [id number] [place] [address] [place] MCV (RBC) [Entitic vol] 84.7 fL Normal 80.0-100.0 [facility] Comment on above: Order Comment: Speci men Type: BLOOD SPECIMENOrdering Facility: [facility] Address: [address] [place] [address] Performed By: #### 5 7021-8 ####[facility] [place] LABCLIA [id number] [facility] [place] [address] [place] Monocytes (Bld) [#/Vol] 0.07 10*3/uL Normal <0.87 [facility] Comment on above: Order Comment: Speci men Type: BLOOD SPECIMENOrdering Facility: [facility] Address: [address] [place] [address] Performed By: #### 5 7021-8 ####[facility] [place] LABCLIA [id number] [facility] [place] [address] [place] Monocytes/100 WBC (Bld) 4.0 % Normal [facility] Comment on above: Order Comment: Speci men Type: BLOOD SPECIMENOrdering Facility: [facility] Address: [address] [place] [address] Performed By: #### 5 7021-8 ####[facility] [place] LABCLIA [id number] [place] [address] [place] Neutrophils (Bld) [#/Vol] 0.77 10*3/uL Low 1.45-7.50 [facility] Comment on above: Order Comment: Speci men Type: BLOOD SPECIMENOrdering Facility: [facility] Address: [address] [place] [address] Performed By: #### 5 7021-8 ####[facility] [place] LABCLIA [id number] [place] [address] [place] Neutrophils/100 WBC (Bld) 43.0 % Normal [facility] Comment on above: Order Comment: Speci men Type: BLOOD SPECIMENOrdering Facility: [facility] Address: [address] [place] [address] Performed By: #### 5 7021-8 ####[facility] [place] LABCLIA [id number] [place] [address] [place] Nucleated RBC (Bld) [#/Vol] 10*3/uL Normal <0.01 [facility] Comment on above: Order Comment: Speci men Type: BLOOD SPECIMENOrdering Facility: [facility] Address: [address] [place] [address] Performed By: #### 5 7021-8 ####[facility] [place] LABCLIA [id number] [place] [address] [facility] Nucleated RBC/100 WBC (Bld) [Ratio] 0.0 /100 WBC Normal [facility] Comment on above: Order Comment: Speci men Type: BLOOD SPECIMENOrdering Facility: [facility] Address: [address] [place] [address] Performed By: #### 5 7021-8 ####[facility] [place] LABCLIA [id number] [place] [address] [facility] Platelet mean volume (Bld) [Entitic vol] 10.5 fL Normal 9.0-12.7 [facility] Comment on above: Order Comment: Speci men Type: BLOOD SPECIMENOrdering Facility: [facility] Address: [address] [place] [address] Performed By: #### 5 7021-8 ####[facility] [place] LABCLIA [id number] [place] [address] [facility] Platelets (Bld) [#/Vol] 65 10*3/uL Low 150-400 [facility] Comment on above: Order Comment: Speci men Type: BLOOD SPECIMENOrdering Facility: [facility] Address: [address] [place] [address] Result Comment: No c lot detected. Performed By: #### 5 7021-8 ####[facility] [place] LABCLIA [id number] [place] [address] [facility] Platelets Estimate (Bld) [#/Vol] Decreased Normal [facility] Comment on above: Order Comment: Speci men Type: BLOOD SPECIMENOrdering Facility: [facility] Address: [address] [place] [address] Performed By: #### 5 7021-8 ####[facility] [place] LABCLIA [id number] [place] [address] [place] Polychromasia LM Ql (Bld) Slight Normal [facility] Comment on above: Order Comment: Speci men Type: BLOOD SPECIMENOrdering Facility: [facility] Address: [address] [place] [address] Performed By: #### 5 7021-8 ####[facility] [place] LABCLIA [id number] [place] [address] [place] RBC (Bld) [#/Vol] 2.74 10*6/uL Low 4.20-6.00 [facility] Comment on above: Order Comment: Speci men Type: BLOOD SPECIMENOrdering Facility: [facility] Address: [address] [place] [address] Performed By: #### 5 7021-8 ####[facility] [place] LABCLIA [id number] [place] [address] [facility] RED CELL MORPH Reviewed: see result s of individual morphologies Normal [facility] Comment on above: Order Comment: Speci men Type: BLOOD SPECIMENOrdering Facility: [facility] Address: [address] [place] [address] Performed By: #### 5 7021-8 ####[facility] [place] LABCLIA [id number] [place] [address] [facility] Toxic granules LM Ql (Bld) Present Normal [facility] Comment on above: Order Comment: Speci men Type: BLOOD SPECIMENOrdering Facility: [facility] Address: [address] [place] [address] Performed By: #### 5 7021-8 ####[facility] [place] LABCLIA [id number] [place] [address] [place] WBC (Bld) [#/Vol] 1.79 10*3/uL Low 3.70-11.00 [facility] Comment on above: Order Comment: Speci men Type: BLOOD SPECIMENOrdering Facility: [facility] Address: [address] [place] [address] Performed By: #### 5 7021-8 ####[facility] [place] LABCLIA [id number] [place] [address] [place] WBC Left Shift Ql (Bld) Present Normal [facility] Comment on above: Order Comment: Speci men Type: BLOOD SPECIMENOrdering Facility: [facility] Address: [address] [place] [address] Performed By: #### 5 7021-8 ####[facility] [place] LABCLIA [id number] [place] [address] [facility] Comprehensive metabolic 2000 panelon 12-19-2024 Albumin [Mass/Vol] 3.8 g/dL Low 3.9-4.9 [facility] Comment on above: Order Comment: Speci men Type: BLOOD SPECIMENOrdering Facility: [facility] Address: [address] [place] [address] Performed By: #### 3 3959-8, 29468-1 ####[facility] [place] LABCLIA [id number] [address] [facility] [place] [address] [place] ALP [Catalytic activity/Vol] 80 U/L Normal 38-113 [facility] Comment on above: Order Comment: Speci men Type: BLOOD SPECIMENOrdering Facility: [facility] Address: [address] [place] [address] Performed By: #### 3 3959-8, 88178-3 ####[facility] [place] LABCLIA [id number] [facility] [place] [address] [facility] [place] ALT With P-5'-P [Catalytic activity/Vol] 17 U/L Normal 10-54 [facility] Comment on above: Order Comment: Speci men Type: BLOOD SPECIMENOrdering Facility: [facility] Address: [address] [place] [address] Performed By: #### 3 3959-8, 82605-4 ####[facility] [place] LABCLIA [id number] [place] [address] [place] Anion gap [Moles/Vol] 15 mmol/L Normal 8-15 [facility] Comment on above: Order Comment: Speci men Type: BLOOD SPECIMENOrdering Facility: [facility] Address: [address] [place] [address] Performed By: #### 3 3959-8, 11213-9 ####[facility] [place] LABCLIA [id number] [place] [address] [place] AST With P-5'-P [Catalytic activity/Vol] 21 U/L Normal 14-40 [facility] Comment on above: Order Comment: Speci men Type: BLOOD SPECIMENOrdering Facility: [facility] Address: [address] [place] [address] Performed By: #### 3 3959-8, 28207-5 ####[facility] [place] LABCLIA [id number] [place] [address] [place] Bilirubin [Mass/Vol] 0.2 mg/dL Normal 0.2-1.3 [facility] Comment on above: Order Comment: Speci men Type: BLOOD SPECIMENOrdering Facility: [facility] Address: [address] [place] [address] Performed By: #### 3 3959-8, 85856-8 ####[facility] [place] LABCLIA [id number] [place] [address] [place] Calcium [Mass/Vol] 9.1 mg/dL Normal 8.5-10.2 [facility] Comment on above: Order Comment: Speci men Type: BLOOD SPECIMENOrdering Facility: [facility] Address: [address] [place] [address] Performed By: #### 3 3959-8, 54130-0 ####[facility] [place] LABCLIA [id number] [place] [address] [place] Chloride [Moles/Vol] 96 mmol/L Low 98-107 [facility] Comment on above: Order Comment: Speci men Type: BLOOD SPECIMENOrdering Facility: [facility] Address: [address] [place] [address] Performed By: #### 3 3959-8, 79214-2 ####[facility] [place] LABCLIA [id number] [place] [address] [place] CO2 [Moles/Vol] 20 mmol/L Low 22-30 [facility] Comment on above: Order Comment: Speci men Type: BLOOD SPECIMENOrdering Facility: [facility] Address: [address] [place] [address] Performed By: #### 3 3959-8, 09899-5 ####[facility] LABCLIA [id number] [place] [address] [place] Creatinine [Mass/Vol] 0.84 mg/dL Normal 0.73-1.22 [facility] Comment on above: Order Comment: Speci men Type: BLOOD SPECIMENOrdering Facility: [facility] Address: [address] [place] [address] Performed By: #### 3 3959-8, 41371-6 ####[facility] LABCLIA [id number] [place] [address] [place] [facility] eGFRcr SerPlBld CKD-EPI 2020 88 mL/min/1.73m??? Normal >=60 [facility] Comment on above: Order Comment: Speci men Type: BLOOD SPECIMENOrdering Facility: [facility] Address: [address] [place] [address] Result Comment: Sharon mated Glomerular Filtration Rate [...] accurately reflect actual GFR. Performed By: #### 3 3959-8, 60774-3 ####[facility] LABCLIA [id number] [place] [address] [place] Glucose [Mass/Vol] 321 mg/dL High 74-99 [facility] Comment on above: Order Comment: Speci men Type: BLOOD SPECIMENOrdering Facility: [facility] Address: [address] [place] [address] Result Comment: The [place] [employer] (ADA) provides guidance for cutoff [...] Standards of Medical Care in Diabetes 2016, [place] [employer]. Diabetes Care. 2016.39(Suppl 1). Performed By: #### 3 3959-8, 33070-2 ####[facility] LABCLIA [id number] [place] [address] [place] Potassium [Moles/Vol] 4.1 mmol/L Normal 3.7-5.1 [facility] Comment on above: Order Comment: Speci men Type: BLOOD SPECIMENOrdering Facility: [facility] Address: [address] [place] [address] Performed By: #### 3 3959-8, 06671-6 ####[facility] LABCLIA [id number] [place] [address] [place] Protein [Mass/Vol] 7.2 g/dL Normal 6.3-8.0 [facility] Comment on above: Order Comment: Speci men Type: BLOOD SPECIMENOrdering Facility: [facility] Address: [address] [place] [address] Performed By: #### 3 3959-8, 30989-0 ####[facility] LABCLIA [id number] [place] [address] [place] Sodium [Moles/Vol] 131 mmol/L Low 136-144 [facility] Comment on above: Order Comment: Speci men Type: BLOOD SPECIMENOrdering Facility: [facility] Address: [address] [place] [address] Performed By: #### 3 3959-8, 58178-1 ####[facility] [place] LABCLIA [id number] [place] [address] [place] Urea nitrogen [Mass/Vol] 16 mg/dL Normal 9-24 [facility] Comment on above: Order Comment: Speci men Type: BLOOD SPECIMENOrdering Facility: [facility] Address: [address] [place] [address] Performed By: #### 3 3959-8, ####[facility] [place] LABCLIA [id number] [place] [address] [place] ECG COMPLETEon 12-19-2024 ECG COMPLETE Normal [facility] ED NOTEon 12-19-2024 ED NOTE HNO ID: [id number] Author: ANAYA العلي, DERIC Service: Emergency Medicine Author Type: Registered Nurse Type: ED Notes Filed: 12/19/2024 19:40 Note Text: Patient to EW with RN Caitie. Alert and oriented, no distress. Normal [facility] ED NOTE HNO ID: [id number] Author: DIANE FUENTES, DERIC Service: ? Author Type: Registered Nurse Type: ED Notes Filed: 12/19/2024 18:27 Note Text: Page placed for possible admit to EW Normal [facility] ED NOTE Normal [facility] ED NOTE Normal [facility] ED PROV NOTEon 12-19-2024 ED PROV NOTE Normal [facility] HIGH SENSITIVITY TROPONIN To n 12-19-2024 Troponin T.cardiac High sensitivity method [Mass/Vol] 17 ng/L High <12 [facility] Comment on above: Order Comment: Speci men Type: BLOOD SPECIMENOrdering Facility: [facility] Address: [address] [place] [address] Performed By: #### H STNT ####[facility] LABCLIA [id number] [place] [address] [facility] Troponin T.cardiac High sensitivity method [Mass/Vol] 19 ng/L High <12 [facility] Comment on above: Order Comment: Speci men Type: BLOOD SPECIMENOrdering Facility: [facility] Address: [address] [place] [address] Performed By: #### H STNT ####[facility] LABCLIA [id number] [place] [address] [facility] NURSING PROGon 12-19-2024 NURSING PROG Normal [facility] Procalcitonin SerPl-mCncon 1 Procalcitonin [Mass/Vol] 0.21 ng/mL High <0.09 [facility] Comment on above: Order Comment: Speci men Type: BLOOD SPECIMENOrdering Facility: [facility] Address: [address] [place] [address] Result Comment: For a guided interpretation of test results, please visit the Change in Procalcitonin Calculator, [email or web address]. Performed By: #### 3 3959-8, 81728-9 ####[facility] LABCLIA [id number] [address] S pyo DNA Throat Ql SUZI+prob frandy 12-19-2024 S. pyogenes DNA SUZI+probe Ql (Throat) Not detected Normal Not detected [facility] Comment on above: Order Comment: Speci men Type: SWABOrdering Facility: [facility] Address: [address] [place] [address] Performed By: #### 6 0489-2 ####[facility] LABCLIA [id number] [address] SEPSIS LACTATE W/ REFLEX (IN ITIAL)on 12-19-2024 Lactate [Moles/Vol] 3.5 mmol/L High <=2.0 [facility] Comment on above: Order Comment: Speci men Type: BLOOD SPECIMENOrdering Facility: [facility] Address: [address] [place] [address] Performed By: #### S LACTR ####[facility] LABCLIA [id number] [place] [id number] [place] SEPSIS LACTATE W/ REFLEX (SE COND)on 12-19-2024 Lactate [Moles/Vol] 2.6 mmol/L High <=2.0 [facility] Comment on above: Order Comment: Speci men Type: BLOOD SPECIMENOrdering Facility: [facility] Address: [address] [place] [address] Performed By: #### S LACT2 ####[facility] LABCLIA [id number] [place] [address] [facility] Urinalysis complete panel (U )on 12-19-2024 Bilirubin Ql (U) Negative Normal Negative [facility] Comment on above: Order Comment: Speci men Type: URINE SPECIMENOrdering Facility: [facility] Address: [address] [place] [address] Performed By: #### 2 4356-8 ####[facility] LABCLIA [id number] [place] [address] [facility] Clarity (Unsp spec) Clear Normal Clear [facility] Comment on above: Order Comment: Speci men Type: URINE SPECIMENOrdering Facility: [facility] Address: [address] [place] [address] Performed By: #### 2 4356-8 ####[facility] LABCLIA [id number] [place] [address] [facility] Color (U) Yellow Normal Yellow [facility] Comment on above: Order Comment: Speci men Type: URINE SPECIMENOrdering Facility: [facility] Address: [address] [place] [address] Performed By: #### 2 4356-8 ####[facility] LABCLIA [id number] [place] [address] [facility] Glucose Test strip (U) [Mass/Vol] 2+ Abnormal Negative [facility] Comment on above: Order Comment: Speci men Type: URINE SPECIMENOrdering Facility: [facility] Address: [address] [place] [address] Performed By: #### 2 4356-8 ####[facility] LABCLIA [id number] [facility] [place] [address] [place] Hemoglobin Ql (U) Negative Normal Negative [facility] Comment on above: Order Comment: Speci men Type: URINE SPECIMENOrdering Facility: [facility] Address: [address] [place] [address] Performed By: #### 2 4356-8 ####[facility] LABCLIA [id number] [facility] [place] [address] [place] Hyaline casts (Urine sed) [#/Area] 1-3 /LPF Abnormal 0 /LPF [facility] Comment on above: Order Comment: Speci men Type: URINE SPECIMENOrdering Facility: [facility] Address: [address] [place] [address] Performed By: #### 2 4356-8 ####[facility] LABCLIA [id number] [place] [address] [facility] Ketones Ql (U) Negative Normal Negative [facility] Comment on above: Order Comment: Speci men Type: URINE SPECIMENOrdering Facility: [facility] Address: [address] [place] [address] Performed By: #### 2 4356-8 ####[facility] LABCLIA [id number] [place] [address] [facility] [place] Leukocyte esterase Test strip Ql (U) Negative Normal Negative [facility] Comment on above: Order Comment: Speci men Type: URINE SPECIMENOrdering Facility: [facility] Address: [address] [place] [address] Performed By: #### 2 4356-8 ####[facility] LABCLIA [id number] [place] [address] [place] Nitrite Ql (U) Negative Normal Negative [facility] Comment on above: Order Comment: Speci men Type: URINE SPECIMENOrdering Facility: [facility] Address: [address] [place] [address] Performed By: #### 2 4356-8 ####[facility] LABCLIA [id number] [place] [address] [place] pH (U) 5.5 [pH] Normal 5.0-8.0 [facility] Comment on above: Order Comment: Speci men Type: URINE SPECIMENOrdering Facility: [facility] Address: [address] [place] [address] Performed By: #### 2 4356-8 ####[facility] LABCLIA [id number] [place] [address] [facility] Protein (U) [Mass/Vol] 1+ Abnormal Negative [facility] Comment on above: Order Comment: Speci men Type: URINE SPECIMENOrdering Facility: [facility] Address: [address] [place] [address] Performed By: #### 2 4356-8 ####[facility] LABCLIA [id number] [address] RBC LM.HPF (Urine sed) [#/Area] 0-3 /HPF Normal 0-3 /HPF [facility] Comment on above: Order Comment: Speci men Type: URINE SPECIMENOrdering Facility: [facility] Address: [address] [place] [address] Performed By: #### 2 4356-8 ####[facility] LABCLIA [id number] [place] [address] [place] Specific gravity (U) [Rel density] 1.020 Normal 1.005-1.030 [facility] Comment on above: Order Comment: Speci men Type: URINE SPECIMENOrdering Facility: [facility] Address: [address] [place] [address] Performed By: #### 2 4356-8 ####[facility] LABCLIA [id number] [address] Urobilinogen Ql (U) 0.2 EU/dL Normal 0.2-1.0 EU/dL [facility] Comment on above: Order Comment: Speci men Type: URINE SPECIMENOrdering Facility: [facility] Address: [address] [place] [address] Performed By: #### 2 4356-8 ####[facility] LABCLIA [id number] [place] [address] [place] WBC LM.HPF (Urine sed) [#/Area] 0-5 /HPF Normal 0-5 /HPF [facility] Comment on above: Order Comment: Speci men Type: URINE SPECIMENOrdering Facility: [facility] Address: [address] [place] [address] Performed By: #### 2 4356-8 ####[facility] LABCLIA [id number] [place] [address] [facility] [place] XR CHEST 2V FRONTAL/LATon XR CHEST 2V FRONTAL/LAT Normal [facility] CNPNon 12-17-2024 CNPN Normal [facility] CNOVSPon 12-16-2024 CNOVSP Normal [facility] CBC W Auto Differential pane l (Bld)on 12-15-2024 Basophils (Bld) [#/Vol] 10*3/uL Normal <0.11 [facility] Comment on above: Order Comment: Speci men Type: BLOOD SPECIMENOrdering Facility: [facility] Address: [address] [place] [address] Performed By: #### 5 7021-8 ####[facility] LABCLIA [id number] [place] [address] [place] Basophils/100 WBC (Bld) 0.7 % Normal [facility] Comment on above: Order Comment: Speci men Type: BLOOD SPECIMENOrdering Facility: [facility] Address: [address] [place] [address] Performed By: #### 5 7021-8 ####[facility] LABCLIA [id number] [place] [address] [place] Differential cell count method Nom (Bld) Auto Normal [facility] Comment on above: Order Comment: Speci men Type: BLOOD SPECIMENOrdering Facility: [facility] Address: [address] [place] [address] Performed By: #### 5 7021-8 ####[facility] LABCLIA [id number] [place] [address] [place] Eosinophils (Bld) [#/Vol] 10*3/uL Normal <0.46 [facility] Comment on above: Order Comment: Speci men Type: BLOOD SPECIMENOrdering Facility: [facility] Address: [address] [place] [address] Performed By: #### 5 7021-8 ####[facility] LABCLIA [id number] [place] [id number] [facility] Eosinophils/100 WBC (Bld) 0.4 % Normal [facility] Comment on above: Order Comment: Speci men Type: BLOOD SPECIMENOrdering Facility: [facility] Address: [address] [place] [address] Performed By: #### 5 7021-8 ####[facility] LABCLIA [id number] [place] [address] [facility] Erythrocyte distribution width (RBC) [Ratio] 21.1 % High 11.5-15.0 [facility] Comment on above: Order Comment: Speci men Type: BLOOD SPECIMENOrdering Facility: [facility] Address: [address] [place] [address] Performed By: #### 5 7021-8 ####[facility] LABCLIA [id number] [place] [address] [facility] Hematocrit (Bld) [Volume fraction] 20.9 % Low 39.0-51.0 [facility] Comment on above: Order Comment: Speci men Type: BLOOD SPECIMENOrdering Facility: [facility] Address: [address] [place] [address] Performed By: #### 5 7021-8 ####[facility] LABCLIA [id number] [place] [address] [facility] [place] Hemoglobin (Bld) [Mass/Vol] 7.0 g/dL Low 13.0-17.0 [facility] Comment on above: Order Comment: Speci men Type: BLOOD SPECIMENOrdering Facility: [facility] Address: [address] [place] [address] Performed By: #### 5 7021-8 ####[facility] LABCLIA [id number] [place] [address] [place] Immature granulocytes (Bld) [#/Vol] 10*3/uL Normal <0.10 [facility] Comment on above: Order Comment: Speci men Type: BLOOD SPECIMENOrdering Facility: [facility] Address: [address] [place] [address] Performed By: #### 5 7021-8 ####[facility] LABCLIA [id number] [place] [address] [facility] [place] Immature granulocytes/100 WBC (Bld) 0.4 % Normal [facility] Comment on above: Order Comment: Speci men Type: BLOOD SPECIMENOrdering Facility: [facility] Address: [address] [place] [address] Performed By: #### 5 7021-8 ####[facility] LABCLIA [id number] [place] [address] [place] Lymphocytes (Bld) [#/Vol] 1.35 10*3/uL Normal 1.00-4.00 [facility] Comment on above: Order Comment: Speci men Type: BLOOD SPECIMENOrdering Facility: [facility] Address: [address] [place] [address] Performed By: #### 5 7021-8 ####[facility] LABCLIA [id number] [place] [address] [facility] [place] Lymphocytes/100 WBC (Bld) 50.2 % Normal [facility] Comment on above: Order Comment: Speci men Type: BLOOD SPECIMENOrdering Facility: [facility] Address: [address] [place] [address] Performed By: #### 5 7021-8 ####[facility] LABCLIA [id number] [place] [address] [place] [facility] MCH (RBC) [Entitic mass] 28.7 pg Normal 26.0-34.0 [facility] Comment on above: Order Comment: Speci men Type: BLOOD SPECIMENOrdering Facility: [facility] Address: [address] [place] [address] Performed By: #### 5 7021-8 ####[facility] LABCLIA [id number] [address] MCHC (RBC) [Mass/Vol] 33.5 g/dL Normal 30.5-36.0 [facility] Comment on above: Order Comment: Speci men Type: BLOOD SPECIMENOrdering Facility: [facility] Address: [address] [place] [address] Performed By: #### 5 7021-8 ####[facility] LABCLIA [id number] [address] MCV (RBC) [Entitic vol] 85.7 fL Normal 80.0-100.0 [facility] Comment on above: Order Comment: Speci men Type: BLOOD SPECIMENOrdering Facility: [facility] Address: [address] [place] [address] Performed By: #### 5 7021-8 ####[facility] LABCLIA [id number] [address] Monocytes (Bld) [#/Vol] 0.11 10*3/uL Normal <0.87 [facility] Comment on above: Order Comment: Speci men Type: BLOOD SPECIMENOrdering Facility: [facility] Address: [address] [place] [address] Performed By: #### 5 7021-8 ####[facility] LABCLIA [id number] [place] [address] [facility] Monocytes/100 WBC (Bld) 4.1 % Normal [facility] Comment on above: Order Comment: Speci men Type: BLOOD SPECIMENOrdering Facility: [facility] Address: [address] [place] [address] Performed By: #### 5 7021-8 ####[facility] LABCLIA [id number] [facility] [place] [address] [place] Neutrophils (Bld) [#/Vol] 1.19 10*3/uL Low 1.45-7.50 [facility] Comment on above: Order Comment: Speci men Type: BLOOD SPECIMENOrdering Facility: [facility] Address: [address] [place] [address] Performed By: #### 5 7021-8 ####[facility] LABCLIA [id number] [facility] [place] [address] [place] Neutrophils/100 WBC (Bld) 44.2 % Normal [facility] Comment on above: Order Comment: Speci men Type: BLOOD SPECIMENOrdering Facility: [facility] Address: [address] [place] [address] Performed By: #### 5 7021-8 ####[facility] LABCLIA [id number] [facility] [place] [address] [place] Nucleated RBC (Bld) [#/Vol] Normal [facility] Comment on above: Order Comment: Speci men Type: BLOOD SPECIMENOrdering Facility: [facility] Address: [address] [place] [address] Performed By: #### 5 7021-8 ####[facility] LABCLIA [id number] [facility] [place] [address] [place] Nucleated RBC/100 WBC (Bld) [Ratio] Normal [facility] Comment on above: Order Comment: Speci men Type: BLOOD SPECIMENOrdering Facility: [facility] Address: [address] [place] [address] Performed By: #### 5 7021-8 ####[facility] LABCLIA [id number] [facility] [place] [address] [place] Platelet mean volume (Bld) [Entitic vol] 10.8 fL Normal 9.0-12.7 [facility] Comment on above: Order Comment: Speci men Type: BLOOD SPECIMENOrdering Facility: [facility] Address: [address] [place] [address] Performed By: #### 5 7021-8 ####[facility] LABCLIA [id number] [place] [address] [place] [facility] Platelets (Bld) [#/Vol] 71 10*3/uL Low 150-400 [facility] Comment on above: Order Comment: Speci men Type: BLOOD SPECIMENOrdering Facility: [facility] Address: [address] [place] [address] Result Comment: No c lot detected. Performed By: #### 5 7021-8 ####[facility] LABCLIA [id number] [place] [address] [place] [facility] RBC (Bld) [#/Vol] 2.44 10*6/uL Low 4.20-6.00 [facility] Comment on above: Order Comment: Speci men Type: BLOOD SPECIMENOrdering Facility: [facility] Address: [address] [place] [address] Performed By: #### 5 7021-8 ####[facility] LABCLIA [id number] [place] [address] [place] [facility] WBC (Bld) [#/Vol] 2.69 10*3/uL Low 3.70-11.00 [facility] Comment on above: Order Comment: Speci men Type: BLOOD SPECIMENOrdering Facility: [facility] Address: [address] [place] [address] Performed By: #### 5 7021-8 ####[facility] LABCLIA [id number] [place] [address] [facility] Comprehensive metabolic 2000 panelon 12-15-2024 Albumin [Mass/Vol] 3.8 g/dL Low 3.9-4.9 [facility] Comment on above: Order Comment: Speci men Type: BLOOD SPECIMENOrdering Facility: [facility] Address: [address] [place] [address] Performed By: #### 2 4323-8 ####[facility] LABCLIA [id number] [place] [address] [place] ALP [Catalytic activity/Vol] 107 U/L Normal 38-113 [facility] Comment on above: Order Comment: Speci men Type: BLOOD SPECIMENOrdering Facility: [facility] Address: [address] [place] [address] Performed By: #### 2 4323-8 ####[facility] LABCLIA [id number] [place] [address] [place] ALT With P-5'-P [Catalytic activity/Vol] 16 U/L Normal 10-54 [facility] Comment on above: Order Comment: Speci men Type: BLOOD SPECIMENOrdering Facility: [facility] Address: [address] [place] [address] Performed By: #### 2 4323-8 ####[facility] LABCLIA [id number] [place] [address] [place] Anion gap [Moles/Vol] 16 mmol/L High 8-15 [facility] Comment on above: Order Comment: Speci men Type: BLOOD SPECIMENOrdering Facility: [facility] Address: [address] [place] [address] Performed By: #### 2 4323-8 ####[facility] LABCLIA [id number] [place] [address] [place] AST With P-5'-P [Catalytic activity/Vol] 21 U/L Normal 14-40 [facility] Comment on above: Order Comment: Speci men Type: BLOOD SPECIMENOrdering Facility: [facility] Address: [address] [place] [address] Performed By: #### 2 4323-8 ####[facility] LABCLIA [id number] [place] [address] [place] Bilirubin [Mass/Vol] 0.3 mg/dL Normal 0.2-1.3 [facility] Comment on above: Order Comment: Speci men Type: BLOOD SPECIMENOrdering Facility: [facility] Address: [address] [place] [address] Performed By: #### 2 4323-8 ####[facility] LABCLIA [id number] [facility] [place] [address] [place] Calcium [Mass/Vol] 9.2 mg/dL Normal 8.5-10.2 [facility] Comment on above: Order Comment: Speci men Type: BLOOD SPECIMENOrdering Facility: [facility] Address: [address] [place] [address] Performed By: #### 2 4323-8 ####[facility] LABCLIA [id number] [facility] [place] [address] [place] Chloride [Moles/Vol] 95 mmol/L Low 98-107 [facility] Comment on above: Order Comment: Speci men Type: BLOOD SPECIMENOrdering Facility: [facility] Address: [address] [place] [address] Performed By: #### 2 4323-8 ####[facility] LABCLIA [id number] [facility] [place] [address] [place] CO2 [Moles/Vol] 20 mmol/L Low 22-30 [facility] Comment on above: Order Comment: Speci men Type: BLOOD SPECIMENOrdering Facility: [facility] Address: [address] [place] [address] Performed By: #### 2 4323-8 ####[facility] LABCLIA [id number] [facility] [place] [address] [place] Creatinine [Mass/Vol] 0.77 mg/dL Normal 0.73-1.22 [facility] Comment on above: Order Comment: Speci men Type: BLOOD SPECIMENOrdering Facility: [facility] Address: [address] [place] [address] Performed By: #### 2 4323-8 ####[facility] LABCLIA [id number] [place] [address] [place] eGFRcr SerPlBld CKD-EPI 2020 90 mL/min/1.73m??? Normal >=60 [facility] Comment on above: Order Comment: Mathew portillo Type: BLOOD SPECIMENOrdering Facility: [facility] Address: [address] [place] [address] Result Comment: Sharon mated Glomerular Filtration Rate [...] actual GFR. Performed By: #### 2 4323-8 ####[facility] LABCLIA [id number] [place] [address] [place] Glucose [Mass/Vol] 433 mg/dL High 74-99 [facility] Comment on above: Order Comment: Mathew portlilo Type: BLOOD SPECIMENOrdering Facility: [facility] Address: [address] [place] [address] Result Comment: The [place] [employer] (ADA) provides guidance for cutoff [...] Standards of Medical Care in Diabetes 2016, [place] [employer]. Diabetes Care. 2016.39(Suppl 1). Performed By: #### 2 4323-8 ####[facility] LABCLIA [id number] [place] [address] [place] Potassium [Moles/Vol] 4.5 mmol/L Normal 3.7-5.1 [facility] Comment on above: Order Comment: Speci men Type: BLOOD SPECIMENOrdering Facility: [facility] Address: [address] [place] [address] Performed By: #### 2 4323-8 ####[facility] [place] LABCLIA [id number] [place] [address] [place] Protein [Mass/Vol] 7.1 g/dL Normal 6.3-8.0 [facility] Comment on above: Order Comment: Speci men Type: BLOOD SPECIMENOrdering Facility: [facility] Address: [address] [place] [address] Performed By: #### 2 4323-8 ####[facility] LABCLIA [id number] [place] [address] [place] Sodium [Moles/Vol] 131 mmol/L Low 136-144 [facility] Comment on above: Order Comment: Speci men Type: BLOOD SPECIMENOrdering Facility: [facility] Address: [address] [place] [address] Performed By: #### 2 4323-8 ####[facility] LABCLIA [id number] [place] [address] [place] Urea nitrogen [Mass/Vol] 16 mg/dL Normal 9-24 [facility] Comment on above: Order Comment: Speci men Type: BLOOD SPECIMENOrdering Facility: [facility] Address: [address] [place] [address] Performed By: #### 2 4323-8 ####[facility] LABCLIA [id number] [place] [address] [place] Ferritin SerPl-mCncon 2024 Ferritin [Mass/Vol] 3368.0 ng/mL High 30.3-565.7 [facility] Comment on above: Order Comment: Speci men Type: BLOOD SPECIMENOrdering Facility: [facility] Address: [address] [place] [address] Performed By: #### 2 276-4, 47270-1 ####[facility] LABORATORYCLIA [id number] [address] [place] Iron and Iron binding capaci ty panelon 12-15-2024 Iron [Mass/Vol] 232 ug/dL High 41-186 [facility] Comment on above: Order Comment: Speci men Type: BLOOD SPECIMENOrdering Facility: [facility] Address: [address] [place] [address] Performed By: #### 2 276-4, 32288-2 ####[facility] LABORATORYCLIA [id number] [address] [place] Iron binding capacity [Mass/Vol] 278 ug/dL Normal 232-386 [facility] Comment on above: Order Comment: Speci men Type: BLOOD SPECIMENOrdering Facility: [facility] Address: [address] [place] [address] Performed By: #### 2 276-4, 25954-7 ####[facility] LABORATORYCLIA [id number] [address] Iron saturation [Mass fraction] 83.5 % High 15.0-57.0 [facility] Comment on above: Order Comment: Speci men Type: BLOOD SPECIMENOrdering Facility: [facility] Address: [address] [place] [address] Performed By: #### 2 276-4, 52274-6 ####[facility] LABORATORYCLIA [id number] [address] [place] TYPE + SCREENon 12-15-2024 ABO B Normal [facility] Comment on above: Order Comment: Speci men Type: BLOOD SPECIMENOrdering Facility: [facility] Address: [address] [place] [address] Performed By: #### T SCR ####[facility] BLOOD BANKCLIA [id number] [address] [place] Rh Nom (Bld) Positive Normal [facility] Comment on above: Order Comment: Speci men Type: BLOOD SPECIMENOrdering Facility: [facility] Address: [address] [place] [address] Performed By: #### T SCR ####[facility] BLOOD BANKCLIA [id number] [address] TYPE AND SCREEN EXPIRATION 12/18/2024 23:59 Normal [facility] Comment on above: Order Comment: Speci men Type: BLOOD SPECIMENOrdering Facility: [facility] Address: [address] [place] [address] Performed By: #### T SCR ####[facility] BLOOD BANKCLIA [id number] [address] STATES [facility] CBC W Auto Differential pane l (Bld)on 12-08-2024 Basophils (Bld) [#/Vol] 10*3/uL Normal <0.11 [facility] Comment on above: Order Comment: Speci men Type: BLOOD SPECIMENOrdering Facility: [facility] Address: [address] [place] [address] Performed By: #### 5 7021-8 ####[facility] [place] LABCLIA [id number] [place] [address] [place] Basophils/100 WBC (Bld) 0.3 % Normal [facility] Comment on above: Order Comment: Speci men Type: BLOOD SPECIMENOrdering Facility: [facility] Address: [address] [place] [address] Performed By: #### 5 7021-8 ####[facility] [place] LABCLIA [id number] [place] [address] [facility] Differential cell count method Nom (Bld) Auto Normal [facility] Comment on above: Order Comment: Speci men Type: BLOOD SPECIMENOrdering Facility: [facility] Address: [address] [place] [address] Performed By: #### 5 7021-8 ####[facility] [place] LABCLIA [id number] [place] [address] [place] Eosinophils (Bld) [#/Vol] 10*3/uL Normal <0.46 [facility] Comment on above: Order Comment: Speci men Type: BLOOD SPECIMENOrdering Facility: [facility] Address: [address] [place] [address] Performed By: #### 5 7021-8 ####[facility] [place] LABCLIA [id number] [facility] [place] [address] [place] Eosinophils/100 WBC (Bld) 0.0 % Normal [facility] Comment on above: Order Comment: Speci men Type: BLOOD SPECIMENOrdering Facility: [facility] Address: [address] [place] [address] Performed By: #### 5 7021-8 ####[facility] [place] LABCLIA [id number] [facility] [place] [address] [facility] [place] Erythrocyte distribution width (RBC) [Ratio] 15.0 % Normal 11.5-15.0 [facility] Comment on above: Order Comment: Speci men Type: BLOOD SPECIMENOrdering Facility: [facility] Address: [address] [place] [address] Performed By: #### 5 7021-8 ####[facility] [place] LABCLIA [id number] [place] [address] [place] [facility] Hematocrit (Bld) [Volume fraction] 19.5 % Low 39.0-51.0 [facility] Comment on above: Order Comment: Speci men Type: BLOOD SPECIMENOrdering Facility: [facility] Address: [address] [place] [address] Performed By: #### 5 7021-8 ####[facility] [place] LABCLIA [id number] [facility] [place] [address] [place] Hemoglobin (Bld) [Mass/Vol] 6.5 g/dL Low 13.0-17.0 [facility] Comment on above: Order Comment: Speci men Type: BLOOD SPECIMENOrdering Facility: [facility] Address: [address] [place] [address] Performed By: #### 5 7021-8 ####[facility] [place] LABCLIA [id number] [place] [address] [facility] [place] Immature granulocytes (Bld) [#/Vol] 10*3/uL Normal <0.10 [facility] Comment on above: Order Comment: Speci men Type: BLOOD SPECIMENOrdering Facility: [facility] Address: [address] [place] [address] Performed By: #### 5 7021-8 ####[facility] [place] LABCLIA [id number] [place] [address] [place] Immature granulocytes/100 WBC (Bld) 0.0 % Normal [facility] Comment on above: Order Comment: Speci men Type: BLOOD SPECIMENOrdering Facility: [facility] Address: [address] [place] [address] Performed By: #### 5 7021-8 ####[facility] [place] LABCLIA [id number] [place], [place] [address] [place] [address] [place] Lymphocytes (Bld) [#/Vol] 1.58 10*3/uL Normal 1.00-4.00 [facility] Comment on above: Order Comment: Speci men Type: BLOOD SPECIMENOrdering Facility: [facility] Address: [address] [place] [address] Performed By: #### 5 7021-8 ####[facility] [place] LABCLIA [id number] [place], [place] [id number] [place] [address] [place] [facility] Lymphocytes/100 WBC (Bld) 51.5 % Normal [facility] Comment on above: Order Comment: Speci men Type: BLOOD SPECIMENOrdering Facility: [facility] Address: [address] [place] [address] Performed By: #### 5 7021-8 ####[facility] [place] LABCLIA [id number] [place] [address] [place] MCH (RBC) [Entitic mass] 30.8 pg Normal 26.0-34.0 [facility] Comment on above: Order Comment: Speci men Type: BLOOD SPECIMENOrdering Facility: [facility] Address: [address] [place] [address] Performed By: #### 5 7021-8 ####[facility] [place] LABCLIA [id number] [facility] [place] [address] [place] [facility] MCHC (RBC) [Mass/Vol] 33.3 g/dL Normal 30.5-36.0 [facility] Comment on above: Order Comment: Speci men Type: BLOOD SPECIMENOrdering Facility: [facility] Address: [address] [place] [address] Performed By: #### 5 7021-8 ####[facility] [place] LABCLIA [id number] [facility] [place] [address] [place] MCV (RBC) [Entitic vol] 92.4 fL Normal 80.0-100.0 [facility] Comment on above: Order Comment: Speci men Type: BLOOD SPECIMENOrdering Facility: [facility] Address: [address] [place] [address] Performed By: #### 5 7021-8 ####[facility] LABCLIA [id number] [place] [address] [place] Monocytes (Bld) [#/Vol] 0.12 10*3/uL Normal <0.87 [facility] Comment on above: Order Comment: Speci men Type: BLOOD SPECIMENOrdering Facility: [facility] Address: [address] [place] [address] Performed By: #### 5 7021-8 ####[facility] [place] LABCLIA [id number] [place] [address] [facility] Monocytes/100 WBC (Bld) 3.9 % Normal [facility] Comment on above: Order Comment: Speci men Type: BLOOD SPECIMENOrdering Facility: [facility] Address: [address] [place] [address] Performed By: #### 5 7021-8 ####[facility] [place] LABCLIA [id number] [place] [address] [place] Neutrophils (Bld) [#/Vol] 1.36 10*3/uL Low 1.45-7.50 [facility] Comment on above: Order Comment: Speci men Type: BLOOD SPECIMENOrdering Facility: [facility] Address: [facility] [place] [address] Performed By: #### 5 7021-8 ####[facility] [place] LABCLIA [id number] [place] [address] [place] Neutrophils/100 WBC (Bld) 44.3 % Normal [facility] Comment on above: Order Comment: Speci men Type: BLOOD SPECIMENOrdering Facility: [facility] Address: [address] [place] [address] Performed By: #### 5 7021-8 ####[facility] [place] LABCLIA [id number] [place] [address] [place] Nucleated RBC (Bld) [#/Vol] Normal [facility] Comment on above: Order Comment: Speci men Type: BLOOD SPECIMENOrdering Facility: [facility] Address: [address] [place] [address] Performed By: #### 5 7021-8 ####[facility] [place] LABCLIA [id number] [place] [address] [place] Nucleated RBC/100 WBC (Bld) [Ratio] Normal [facility] Comment on above: Order Comment: Speci men Type: BLOOD SPECIMENOrdering Facility: [facility] Address: [address] [place] [address] Performed By: #### 5 7021-8 ####[facility] [place] LABCLIA [id number] [place] [address] [place] Platelet mean volume (Bld) [Entitic vol] 10.9 fL Normal 9.0-12.7 [facility] Comment on above: Order Comment: Speci men Type: BLOOD SPECIMENOrdering Facility: [facility] Address: [address] [place] [address] Performed By: #### 5 7021-8 ####[facility] [place] LABCLIA [id number] [place] [address] [place] Platelets (Bld) [#/Vol] 62 10*3/uL Low 150-400 [facility] Comment on above: Order Comment: Speci men Type: BLOOD SPECIMENOrdering Facility: [facility] Address: [address] [place] [address] Result Comment: No c lot detected. Performed By: #### 5 7021-8 ####[facility] [place] LABCLIA [id number] [place] [address] [place] RBC (Bld) [#/Vol] 2.11 10*6/uL Low 4.20-6.00 [facility] Comment on above: Order Comment: Speci men Type: BLOOD SPECIMENOrdering Facility: [facility] Address: [address] [place] [address] Performed By: #### 5 7021-8 ####[facility] LABCLIA [id number] [place] [address] [facility] WBC (Bld) [#/Vol] 3.07 10*3/uL Low 3.70-11.00 [facility] Comment on above: Order Comment: Speci men Type: BLOOD SPECIMENOrdering Facility: [facility] Address: [address] [place] [address] Performed By: #### 5 7021-8 ####[facility] [place] LABCLIA [id number] [place] [address] [facility] [place] CNPNon 12-08-2024 CNPN Normal [facility] Comprehensive metabolic 2000 panelon 12-08-2024 Albumin [Mass/Vol] 3.9 g/dL Normal 3.9-4.9 [facility] Comment on above: Order Comment: Speci men Type: BLOOD SPECIMENOrdering Facility: [facility] Address: [address] [place] [address] Performed By: #### 2 4323-8 ####[facility] [place] LABCLIA [id number] [place] [address] [place] ALP [Catalytic activity/Vol] 100 U/L Normal 38-113 [facility] Comment on above: Order Comment: Speci men Type: BLOOD SPECIMENOrdering Facility: [facility] Address: [address] [place] [address] Performed By: #### 2 4323-8 ####[facility] [place] LABCLIA [id number] [facility] [address] [place] ALT With P-5'-P [Catalytic activity/Vol] 17 U/L Normal 10-54 [facility] Comment on above: Order Comment: Speci men Type: BLOOD SPECIMENOrdering Facility: [facility] Address: [address] [place] [address] Performed By: #### 2 4323-8 ####[facility] [place] LABCLIA [id number] [place] [address] [place] Anion gap [Moles/Vol] 17 mmol/L High 8-15 [facility] Comment on above: Order Comment: Speci men Type: BLOOD SPECIMENOrdering Facility: [facility] Address: [address] [place] [address] Performed By: #### 2 4323-8 ####[facility] [place] LABCLIA [id number] [place] [address] [place] AST With P-5'-P [Catalytic activity/Vol] 19 U/L Normal 14-40 [facility] Comment on above: Order Comment: Speci men Type: BLOOD SPECIMENOrdering Facility: [facility] Address: [address] [place] [address] Performed By: #### 2 4323-8 ####[facility] [place] LABCLIA [id number] [place] [place] [address] [place] Bilirubin [Mass/Vol] 0.4 mg/dL Normal 0.2-1.3 [facility] Comment on above: Order Comment: Speci men Type: BLOOD SPECIMENOrdering Facility: [facility] Address: [address] [place] [address] Performed By: #### 2 4323-8 ####[facility] [place] LABCLIA [id number] [facility] [place] [address] [place] Calcium [Mass/Vol] 9.3 mg/dL Normal 8.5-10.2 [facility] Comment on above: Order Comment: Speci men Type: BLOOD SPECIMENOrdering Facility: [facility] Address: [address] [place] [address] Performed By: #### 2 4323-8 ####[facility] [place] LABCLIA [id number] [facility] [place] [address] [place] Chloride [Moles/Vol] 98 mmol/L Normal 98-107 [facility] Comment on above: Order Comment: Speci men Type: BLOOD SPECIMENOrdering Facility: [facility] Address: [address] [place] [address] Performed By: #### 2 4323-8 ####[facility] [place] LABCLIA [id number] [place] [address] [place] CO2 [Moles/Vol] 19 mmol/L Low 22-30 [facility] Comment on above: Order Comment: Speci men Type: BLOOD SPECIMENOrdering Facility: [facility] Address: [address] [place] [address] Performed By: #### 2 4323-8 ####[facility] [place] LABCLIA [id number] [place] [address] [place] Creatinine [Mass/Vol] 0.80 mg/dL Normal 0.73-1.22 [facility] Comment on above: Order Comment: Speci men Type: BLOOD SPECIMENOrdering Facility: [facility] Address: [address] [place] [address] Performed By: #### 2 4323-8 ####[facility] [place] LABCLIA [id number] [place] [address] [place] eGFRcr SerPlBld CKD-EPI 2020 89 mL/min/1.73m??? Normal >=60 [facility] Comment on above: Order Comment: Speci men Type: BLOOD SPECIMENOrdering Facility: [facility] Address: [address] [place] [address] Result Comment: Sharon mated Glomerular Filtration Rate [...] actual GFR. Performed By: #### 2 4323-8 ####[facility] LABIA [id number] [place] [address] [place] Glucose [Mass/Vol] 405 mg/dL High 74-99 [facility] Comment on above: Order Comment: Mathew portillo Type: BLOOD SPECIMENOrdering Facility: [facility] Address: [address] [place] [address] Result Comment: The [place] [employer] (ADA) provides guidance for cutoff [...] Standards of Medical Care in Diabetes 2016, [place] [employer]. Diabetes Care. 2016.39(Suppl 1). Performed By: #### 2 4323-8 ####[facility] LABCLIA [id number] [place] [address] [place] Potassium [Moles/Vol] 4.2 mmol/L Normal 3.7-5.1 [facility] Comment on above: Order Comment: Mathew portillo Type: BLOOD SPECIMENOrdering Facility: [facility] Address: [address] [place] [id number] Performed By: #### 2 4323-8 ####[facility] LABCLIA [id number] [place] [address] [place] Protein [Mass/Vol] 7.2 g/dL Normal 6.3-8.0 [facility] Comment on above: Order Comment: Speci men Type: BLOOD SPECIMENOrdering Facility: [facility] Address: [address] [place] [address] Performed By: #### 2 4323-8 ####[facility] [place] LABCLIA [id number] [place] [address] [place] Sodium [Moles/Vol] 134 mmol/L Low 136-144 [facility] Comment on above: Order Comment: Speci men Type: BLOOD SPECIMENOrdering Facility: [facility] Address: [address] [place] [address] Performed By: #### 2 4323-8 ####[facility] [place] LABCLIA [id number] [place] [id number] [facility] Urea nitrogen [Mass/Vol] 18 mg/dL Normal 9-24 [facility] Comment on above: Order Comment: Speci men Type: BLOOD SPECIMENOrdering Facility: [facility] Address: [address] [place] [address] Performed By: #### 2 4323-8 ####[facility] [place] LABCLIA [id number] [address] TYPE + SCREENon 12-08-2024 ABO B Normal [facility] Comment on above: Order Comment: Speci men Type: BLOOD SPECIMENOrdering Facility: [facility] Address: [address] [place] [address] Performed By: #### T SCR ####[facility] BLOOD BANKCLIA [id number] [address] [place] Rh Nom (Bld) Positive Normal [facility] Comment on above: Order Comment: Speci men Type: BLOOD SPECIMENOrdering Facility: [facility] Address: [address] [place] [address] Performed By: #### T SCR ####[facility] BLOOD BANKCLIA [id number] [address] [place] TYPE AND SCREEN EXPIRATION 12/11/2024 23:59 Normal [facility] Comment on above: Order Comment: Speci men Type: BLOOD SPECIMENOrdering Facility: [facility] Address: [address] [place] [address] Performed By: #### T SCR ####[facility] BLOOD BANKCLIA [id number] [address] CNOVSPon 12-02-2024 CNOVSP Normal [facility] CBC W Auto Differential pane l (Bld)on 12-01-2024 Basophils (Bld) [#/Vol] 10*3/uL Normal <0.11 [facility] Comment on above: Order Comment: Speci men Type: BLOOD SPECIMENOrdering Facility: [facility] Address: [address] [place] [address] Performed By: #### 5 7021-8 ####[facility] [place] LABCLIA [id number] [place] [address] [place] [facility] Basophils/100 WBC (Bld) 0.6 % Normal [facility] Comment on above: Order Comment: Speci men Type: BLOOD SPECIMENOrdering Facility: [facility] Address: [address] [place] [address] Performed By: #### 5 7021-8 ####[facility] [place] LABCLIA [id number] [place] [address] [place] Differential cell count method Nom (Bld) Auto Normal [facility] Comment on above: Order Comment: Speci men Type: BLOOD SPECIMENOrdering Facility: [facility] Address: [address] [place] [address] Performed By: #### 5 7021-8 ####[facility] [place] LABCLIA [id number] [place] [address] [place] Eosinophils (Bld) [#/Vol] 10*3/uL Normal <0.46 [facility] Comment on above: Order Comment: Speci men Type: BLOOD SPECIMENOrdering Facility: [facility] Address: [address] [place] [address] Performed By: #### 5 7021-8 ####[facility] [place] LABCLIA [id number] [facility] [address] [place] Eosinophils/100 WBC (Bld) 0.6 % Normal [facility] Comment on above: Order Comment: Speci men Type: BLOOD SPECIMENOrdering Facility: [facility] Address: [address] [place] [address] Performed By: #### 5 7021-8 ####[facility] [place] LABCLIA [id number] [place] [address] [place] Erythrocyte distribution width (RBC) [Ratio] 14.9 % Normal 11.5-15.0 [facility] Comment on above: Order Comment: Speci men Type: BLOOD SPECIMENOrdering Facility: [facility] Address: [address] [place] [address] Performed By: #### 5 7021-8 ####[facility] LABCLIA [id number] [place] [address] [facility] Hematocrit (Bld) [Volume fraction] 21.4 % Low 39.0-51.0 [facility] Comment on above: Order Comment: Speci men Type: BLOOD SPECIMENOrdering Facility: [facility] Address: [address] [place] [address] Performed By: #### 5 7021-8 ####[facility] LABCLIA [id number] [facility] [place] [address] [place] Hemoglobin (Bld) [Mass/Vol] 7.2 g/dL Low 13.0-17.0 [facility] Comment on above: Order Comment: Speci men Type: BLOOD SPECIMENOrdering Facility: [facility] [facility] Address: [address] [place] [address] Performed By: #### 5 7021-8 ####[facility] [place] LABCLIA [id number] [facility] [place] [address] [place] Immature granulocytes (Bld) [#/Vol] 10*3/uL Normal <0.10 [facility] Comment on above: Order Comment: Speci men Type: BLOOD SPECIMENOrdering Facility: [facility] Address: [address] [place] [address] Performed By: #### 5 7021-8 ####[facility] [place] LABCLIA [id number] [place] [address] [place] Immature granulocytes/100 WBC (Bld) 0.0 % Normal [facility] Comment on above: Order Comment: Speci men Type: BLOOD SPECIMENOrdering Facility: [facility] Address: [address] [place] [address] Performed By: #### 5 7021-8 ####[facility] [place] LABCLIA [id number] [place] [address] [place] Lymphocytes (Bld) [#/Vol] 1.85 10*3/uL Normal 1.00-4.00 [facility] Comment on above: Order Comment: Speci men Type: BLOOD SPECIMENOrdering Facility: [facility] Address: [address] [place] [address] Performed By: #### 5 7021-8 ####[facility] [place] LABCLIA [id number] [place] [address] [place] [facility] Lymphocytes/100 WBC (Bld) 53.9 % Normal [facility] Comment on above: Order Comment: Speci men Type: BLOOD SPECIMENOrdering Facility: [facility] Address: [address] [place] [address] Performed By: #### 5 7021-8 ####[facility] [place] LABCLIA [id number] [place] [address] [place] MCH (RBC) [Entitic mass] 30.6 pg Normal 26.0-34.0 [facility] Comment on above: Order Comment: Speci men Type: BLOOD SPECIMENOrdering Facility: [facility] Address: [address] [place] [address] Performed By: #### 5 7021-8 ####[facility] [place] LABCLIA [id number] [place] [address] [place] MCHC (RBC) [Mass/Vol] 33.6 g/dL Normal 30.5-36.0 [facility] Comment on above: Order Comment: Speci men Type: BLOOD SPECIMENOrdering Facility: [facility] Address: [address] [place] [address] Performed By: #### 5 7021-8 ####[facility] [place] LABCLIA [id number] [place] [address] [facility] MCV (RBC) [Entitic vol] 91.1 fL Normal 80.0-100.0 [facility] Comment on above: Order Comment: Speci men Type: BLOOD SPECIMENOrdering Facility: [facility] Address: [address] [place] [address] Performed By: #### 5 7021-8 ####[facility] LABCLIA [id number] [place] [address] [place] Monocytes (Bld) [#/Vol] 0.17 10*3/uL Normal <0.87 [facility] Comment on above: Order Comment: Speci men Type: BLOOD SPECIMENOrdering Facility: [facility] Address: [address] [place] [address] Performed By: #### 5 7021-8 ####[facility] LABCLIA [id number] [place] [address] [facility] Monocytes/100 WBC (Bld) 5.0 % Normal [facility] Comment on above: Order Comment: Speci men Type: BLOOD SPECIMENOrdering Facility: [facility] Address: [address] [place] [address] Performed By: #### 5 7021-8 ####[facility] [place] LABCLIA [id number] [place] [address] [facility] [place] Neutrophils (Bld) [#/Vol] 1.37 10*3/uL Low 1.45-7.50 [facility] Comment on above: Order Comment: Speci men Type: BLOOD SPECIMENOrdering Facility: [facility] Address: [address] [place] [address] Performed By: #### 5 7021-8 ####[facility] [place] LABCLIA [id number] [place] [address] [place] Neutrophils/100 WBC (Bld) 39.9 % Normal [facility] Comment on above: Order Comment: Speci men Type: BLOOD SPECIMENOrdering Facility: [facility] Address: [address] [place] [address] Performed By: #### 5 7021-8 ####[facility] [place] LABCLIA [id number] [place] [address] [place] Nucleated RBC (Bld) [#/Vol] Normal [facility] Comment on above: Order Comment: Speci men Type: BLOOD SPECIMENOrdering Facility: [facility] Address: [address] [place] [address] Performed By: #### 5 7021-8 ####[facility] [place] LABCLIA [id number] [place] [address] [place] Nucleated RBC/100 WBC (Bld) [Ratio] Normal [facility] Comment on above: Order Comment: Speci men Type: BLOOD SPECIMENOrdering Facility: [facility] Address: [address] [place] [address] Performed By: #### 5 7021-8 ####[facility] [place] LABCLIA [id number] [place] [address] [place] Platelet mean volume (Bld) [Entitic vol] 12.2 fL Normal 9.0-12.7 [facility] Comment on above: Order Comment: Speci men Type: BLOOD SPECIMENOrdering Facility: [facility] Address: [address] [place] [address] Performed By: #### 5 7021-8 ####[facility] [place] LABCLIA [id number] [place] [address] [place] Platelets (Bld) [#/Vol] 56 10*3/uL Low 150-400 [facility] Comment on above: Order Comment: Speci men Type: BLOOD SPECIMENOrdering Facility: [facility] Address: [address] [place] [address] Result Comment: No c lot detected. Performed By: #### 5 7021-8 ####[facility] [place] LABCLIA [id number] [place] [address] [facility] RBC (Bld) [#/Vol] 2.35 10*6/uL Low 4.20-6.00 [facility] Comment on above: Order Comment: Speci men Type: BLOOD SPECIMENOrdering Facility: [facility] Address: [address] [place] [address] Performed By: #### 5 7021-8 ####[facility] LABCLIA [id number] [place] [address] [facility] WBC (Bld) [#/Vol] 3.43 10*3/uL Low 3.70-11.00 [facility] Comment on above: Order Comment: Speci men Type: BLOOD SPECIMENOrdering Facility: [facility] Address: [address] [place] [address] Performed By: #### 5 7021-8 ####[facility] LABCLIA [id number] [place] [address] [facility] Comprehensive metabolic 2000 panelon 12-01-2024 Albumin [Mass/Vol] 3.8 g/dL Low 3.9-4.9 [facility] Comment on above: Order Comment: Speci men Type: BLOOD SPECIMENOrdering Facility: [facility] Address: [address] [place] [address] Performed By: #### 2 4323-8 ####[facility] LABCLIA [id number] [place] [address] [facility] ALP [Catalytic activity/Vol] 88 U/L Normal 38-113 [facility] Comment on above: Order Comment: Speci men Type: BLOOD SPECIMENOrdering Facility: [facility] Address: [address] [place] [address] Performed By: #### 2 4323-8 ####[facility] [place] LABCLIA [id number] [place] [address] [place] ALT With P-5'-P [Catalytic activity/Vol] 19 U/L Normal 10-54 [facility] Comment on above: Order Comment: Speci men Type: BLOOD SPECIMENOrdering Facility: [facility] Address: [address] [place] [address] Performed By: #### 2 4323-8 ####[facility] [place] LABCLIA [id number] [place] [address] [place] Anion gap [Moles/Vol] 16 mmol/L High 8-15 [facility] Comment on above: Order Comment: Speci men Type: BLOOD SPECIMENOrdering Facility: [facility] Address: [address] [place] [address] Performed By: #### 2 4323-8 ####[facility] [place] LABCLIA [id number] [place] [address] [place] AST With P-5'-P [Catalytic activity/Vol] 24 U/L Normal 14-40 [facility] Comment on above: Order Comment: Speci men Type: BLOOD SPECIMENOrdering Facility: [facility] Address: [address] [place] [address] Performed By: #### 2 4323-8 ####[facility] [place] LABCLIA [id number] [place] [address] [place] Bilirubin [Mass/Vol] 0.4 mg/dL Normal 0.2-1.3 [facility] Comment on above: Order Comment: Speci men Type: BLOOD SPECIMENOrdering Facility: [facility] Address: [address] [place] [address] Performed By: #### 2 4323-8 ####[facility] [place] LABCLIA [id number] [place] [address] [place] Calcium [Mass/Vol] 9.2 mg/dL Normal 8.5-10.2 [facility] Comment on above: Order Comment: Speci men Type: BLOOD SPECIMENOrdering Facility: [facility] Address: [address] [place] [address] Performed By: #### 2 4323-8 ####[facility] [place] LABCLIA [id number] [place] [address] [place] Chloride [Moles/Vol] 100 mmol/L Normal 98-107 [facility] Comment on above: Order Comment: Speci men Type: BLOOD SPECIMENOrdering Facility: [facility] Address: [address] [place] [address] Performed By: #### 2 4323-8 ####[facility] LABCLIA [id number] [place] [address] [place] CO2 [Moles/Vol] 20 mmol/L Low 22-30 [facility] Comment on above: Order Comment: Speci men Type: BLOOD SPECIMENOrdering Facility: [facility] Address: [address] [place] [address] Performed By: #### 2 4323-8 ####[facility] LABCLIA [id number] [place] [address] [place] Creatinine [Mass/Vol] 0.78 mg/dL Normal 0.73-1.22 [facility] Comment on above: Order Comment: Speci men Type: BLOOD SPECIMENOrdering Facility: [facility] Address: [address] [place] [address] Performed By: #### 2 4323-8 ####[facility] [place] LABCLIA [id number] [place] [address] [place] eGFRcr SerPlBld CKD-EPI 2020 90 mL/min/1.73m??? Normal >=60 [facility] Comment on above: Order Comment: Speci men Type: BLOOD SPECIMENOrdering Facility: [facility] Address: [address] [place] [address] Result Comment: Sharon mated Glomerular Filtration Rate [...] actual GFR. Performed By: #### 2 4323-8 ####[facility] LABCLIA [id number] [place] [address] [place] Glucose [Mass/Vol] 323 mg/dL High 74-99 [facility] Comment on above: Order Comment: Speci men Type: BLOOD SPECIMENOrdering Facility: [facility] Address: [address] [place], [place] [id number] Result Comment: The [place] [employer] (ADA) provides guidance for cutoff [...] Standards of Medical Care in Diabetes 2016, [place] [employer]. Diabetes Care. 2016.39(Suppl 1). Performed By: #### 2 4323-8 ####[facility] LABCLIA [id number] [place] [address] [place] Potassium [Moles/Vol] 4.1 mmol/L Normal 3.7-5.1 [facility] Comment on above: Order Comment: Speci men Type: BLOOD SPECIMENOrdering Facility: [facility] Address: [address] [place] [place] [id number] Performed By: #### 2 4323-8 ####[facility] LABCLIA [id number] [facility] [facility] [address] [place] Protein [Mass/Vol] 6.9 g/dL Normal 6.3-8.0 [facility] Comment on above: Order Comment: Speci men Type: BLOOD SPECIMENOrdering Facility: [facility] Address: [address] [place] [address] Performed By: #### 2 4323-8 ####[facility] [place] LABCLIA [id number] [place] [address] [place] Sodium [Moles/Vol] 136 mmol/L Normal 136-144 [facility] Comment on above: Order Comment: Speci men Type: BLOOD SPECIMENOrdering Facility: [facility] Address: [address] [place] [address] Performed By: #### 2 4323-8 ####[facility] LABCLIA [id number] [place] [id number] [place] Urea nitrogen [Mass/Vol] 17 mg/dL Normal 9-24 [facility] Comment on above: Order Comment: Speci men Type: BLOOD SPECIMENOrdering Facility: [facility] Address: [address] [place] [address] Performed By: #### 2 4323-8 ####[facility] [place] LABCLIA [id number] [place] [address] [place] Ferritin SerPl-mCncon 2024 Ferritin [Mass/Vol] 3316.0 ng/mL High 30.3-565.7 [facility] Comment on above: Order Comment: Speci men Type: BLOOD SPECIMENOrdering Facility: [facility] Address: [address] [place] [address] Performed By: #### 2 276-4, 10339-8 ####[facility] LABORATORYCLIA [id number] [place] [address] [place] Iron and Iron binding capaci ty panelon 12-01-2024 Iron [Mass/Vol] 234 ug/dL High 41-186 [facility] Comment on above: Order Comment: Speci men Type: BLOOD SPECIMENOrdering Facility: [facility] Address: [address] [place] [address] Performed By: #### 2 276-4, 26338-8 ####[facility] LABORATORYCLIA [id number] [address] Iron binding capacity [Mass/Vol] <251 Normal 232-386 [facility] Comment on above: Order Comment: Speci men Type: BLOOD SPECIMENOrdering Facility: [facility] Address: [address] [place] [address] Performed By: #### 2 276-4, 21321-7 ####[facility] LABORATORYCLIA [id number] [address] Iron saturation [Mass fraction] >93.2 High 15.0-57.0 [facility] Comment on above: Order Comment: Speci men Type: BLOOD SPECIMENOrdering Facility: [facility] Address: [address] [place] [address] Performed By: #### 2 276-4, 78315-6 ####[facility] LABORATORYCLIA [id number] [address] TYPE + SCREENon 12-01-2024 ABO B Normal [facility] Comment on above: Order Comment: Speci men Type: BLOOD SPECIMENOrdering Facility: [facility] Address: [address] [place] [address] Performed By: #### T SCR ####[facility] BLOOD BANKCLIA [id number] [address] Rh Nom (Bld) Positive Normal [facility] Comment on above: Order Comment: Speci men Type: BLOOD SPECIMENOrdering Facility: [facility] Address: [address] [place] [address] Performed By: #### T SCR ####[facility] BLOOD BANKCLIA [id number] [address] TYPE AND SCREEN EXPIRATION 12/04/2024 23:59 Normal [facility] Comment on above: Order Comment: Speci men Type: BLOOD SPECIMENOrdering Facility: [facility] Address: [address] [place] [address] Performed By: #### T SCR ####[facility] BLOOD BANKCLIA [id number] [place] [address] [place] CBC W Auto Differential pane l (Bld)on 11-25-2024 Basophils (Bld) [#/Vol] 10*3/uL Normal <0.11 [facility] Comment on above: Order Comment: Speci men Type: BLOOD SPECIMENOrdering Facility: [facility] Address: [address] [place] [address] Performed By: #### 5 7021-8 ####[facility] LABORATORYCLIA [id number] [address] STATES [facility] Basophils/100 WBC (Bld) 0.4 % Normal [facility] Comment on above: Order Comment: Speci men Type: BLOOD SPECIMENOrdering Facility: [facility] Address: [address] [place] [address] Performed By: #### 5 7021-8 ####[facility] LABORATORYCLIA [id number] [address] Differential cell count method Nom (Bld) Auto Normal [facility] Comment on above: Order Comment: Speci men Type: BLOOD SPECIMENOrdering Facility: [facility] Address: [address] [place] [address] Performed By: #### 5 7021-8 ####[facility] LABORATORYCLIA [id number] [address] [place] Eosinophils (Bld) [#/Vol] 10*3/uL Normal <0.46 [facility] Comment on above: Order Comment: Speci men Type: BLOOD SPECIMENOrdering Facility: [facility] Address: [address] [place] [address] Performed By: #### 5 7021-8 ####[facility] LABORATORYCLIA [id number] [address] Eosinophils/100 WBC (Bld) 0.2 % Normal [facility] Comment on above: Order Comment: Speci men Type: BLOOD SPECIMENOrdering Facility: [facility] Address: [address] [place] [address] Performed By: #### 5 7021-8 ####[facility] LABORATORYCLIA [id number] [address] STATES [facility] Erythrocyte distribution width (RBC) [Ratio] 14.8 % Normal 11.5-15.0 [facility] Comment on above: Order Comment: Speci men Type: BLOOD SPECIMENOrdering Facility: [facility] Address: [address] [place] [address] Performed By: #### 5 7021-8 ####[facility] LABORATORYCLIA [id number] [address] [place] Hematocrit (Bld) [Volume fraction] 19.5 % Low 39.0-51.0 [facility] Comment on above: Order Comment: Speci men Type: BLOOD SPECIMENOrdering Facility: [facility] Address: [address] [place] [address] Performed By: #### 5 7021-8 ####[facility] LABORATORYCLIA [id number] [address] [place] Hemoglobin (Bld) [Mass/Vol] 6.8 g/dL Low 13.0-17.0 [facility] Comment on above: Order Comment: Speci men Type: BLOOD SPECIMENOrdering Facility: [facility] Address: [address] [place] [address] Performed By: #### 5 7021-8 ####[facility] LABORATORYCLIA [id number] [address] [place] Immature granulocytes (Bld) [#/Vol] 10*3/uL Normal <0.10 [facility] Comment on above: Order Comment: Speci men Type: BLOOD SPECIMENOrdering Facility: [facility] Address: [address] [place] [address] Performed By: #### 5 7021-8 ####[facility] LABORATORYCLIA [id number] [address] Immature granulocytes/100 WBC (Bld) 0.4 % Normal [facility] Comment on above: Order Comment: Speci men Type: BLOOD SPECIMENOrdering Facility: [facility] Address: [address] [place] [address] Performed By: #### 5 7021-8 ####[facility] LABORATORYCLIA [id number] [address] Lymphocytes (Bld) [#/Vol] 1.83 10*3/uL Normal 1.00-4.00 [facility] Comment on above: Order Comment: Speci men Type: BLOOD SPECIMENOrdering Facility: [facility] Address: [address] [place] [address] Performed By: #### 5 7021-8 ####[facility] LABORATORYCLIA [id number] [address] Lymphocytes/100 WBC (Bld) 38.8 % Normal [facility] Comment on above: Order Comment: Speci men Type: BLOOD SPECIMENOrdering Facility: [facility] Address: [address] [place] [address] Performed By: #### 5 7021-8 ####[facility] LABORATORYCLIA [id number] [address] [place] MCH (RBC) [Entitic mass] 31.8 pg Normal 26.0-34.0 [facility] Comment on above: Order Comment: Speci men Type: BLOOD SPECIMENOrdering Facility: [facility] Address: [address] [place] [address] Performed By: #### 5 7021-8 ####[facility] LABORATORYCLIA [id number] [address] STATES [facility] MCHC (RBC) [Mass/Vol] 34.9 g/dL Normal 30.5-36.0 [facility] Comment on above: Order Comment: Speci men Type: BLOOD SPECIMENOrdering Facility: [facility] Address: [address] [place] [address] Performed By: #### 5 7021-8 ####[facility] LABORATORYCLIA [id number] [address] MCV (RBC) [Entitic vol] 91.1 fL Normal 80.0-100.0 [facility] Comment on above: Order Comment: Speci men Type: BLOOD SPECIMENOrdering Facility: [facility] Address: [address] [place] [address] Performed By: #### 5 7021-8 ####[facility] LABORATORYCLIA [id number] [place] [address] [place] Monocytes (Bld) [#/Vol] 0.25 10*3/uL Normal <0.87 [facility] Comment on above: Order Comment: Speci men Type: BLOOD SPECIMENOrdering Facility: [facility] Address: [address] [place] [address] Performed By: #### 5 7021-8 ####[facility] LABORATORYCLIA [id number] [address] [place] Monocytes/100 WBC (Bld) 5.3 % Normal [facility] Comment on above: Order Comment: Speci men Type: BLOOD SPECIMENOrdering Facility: [facility] Address: [address] [place] [address] Performed By: #### 5 7021-8 ####[facility] LABORATORYCLIA [id number] [place] [address] [place] Neutrophils (Bld) [#/Vol] 2.59 10*3/uL Normal 1.45-7.50 [facility] Comment on above: Order Comment: Speci men Type: BLOOD SPECIMENOrdering Facility: [facility] Address: [address] [place] [address] Performed By: #### 5 7021-8 ####[facility] LABORATORYCLIA [id number] [place] [address] [place] Neutrophils/100 WBC (Bld) 54.9 % Normal [facility] Comment on above: Order Comment: Speci men Type: BLOOD SPECIMENOrdering Facility: [facility] Address: [address] [place] [address] Performed By: #### 5 7021-8 ####[facility]ORATORYCLIA [id number] [address] OF [facility] Nucleated RBC (Bld) [#/Vol] 10*3/uL Normal <0.01 [facility] Comment on above: Order Comment: Speci men Type: BLOOD SPECIMENOrdering Facility: [facility] Address: [address] [place] [address] Performed By: #### 5 7021-8 ####[facility] LABORATORYCLIA [id number] [address] [place] Nucleated RBC/100 WBC (Bld) [Ratio] 0.0 /100 WBC Normal [facility] Comment on above: Order Comment: Speci men Type: BLOOD SPECIMENOrdering Facility: [facility] Address: [address] [place] [address] Performed By: #### 5 7021-8 ####[facility] LABORATORYCLIA [id number] [address] STATES OF [facility] Platelet mean volume (Bld) [Entitic vol] 12.2 fL Normal 9.0-12.7 [facility] Comment on above: Order Comment: Speci men Type: BLOOD SPECIMENOrdering Facility: [facility] Address: [address] [place] [address] Performed By: #### 5 7021-8 ####[facility] LABORATORYCLIA [id number] [address] [place] Platelets (Bld) [#/Vol] 60 10*3/uL Low 150-400 [facility] Comment on above: Order Comment: Speci men Type: BLOOD SPECIMENOrdering Facility: [facility] Address: [address] [place] [address] Result Comment: No c lot detected. Performed By: #### 5 7021-8 ####[facility] LABORATORYCLIA [id number] [address] [place] RBC (Bld) [#/Vol] 2.14 10*6/uL Low 4.20-6.00 [facility] [facility] Comment on above: Order Comment: Speci men Type: BLOOD SPECIMENOrdering Facility: [facility] Address: [address] [place] [address] Performed By: #### 5 7021-8 ####[facility] LABORATORYCLIA [id number] [address] WBC (Bld) [#/Vol] 4.72 10*3/uL Normal 3.70-11.00 [facility] Comment on above: Order Comment: Speci men Type: BLOOD SPECIMENOrdering Facility: [facility] Address: [address] [place] [address] Performed By: #### 5 7021-8 ####[facility] LABORATORYCLIA [id number] [address] Comprehensive metabolic 2000 panelon 11-25-2024 Albumin [Mass/Vol] 3.9 g/dL Normal 3.9-4.9 [facility] Comment on above: Order Comment: Speci men Type: BLOOD SPECIMENOrdering Facility: [facility] Address: [address] [place] [address] Performed By: #### 2 4323-8, 6-4, 55623-3 ####[facility] LABORATORYCLIA [id number] [address] [place] ALP [Catalytic activity/Vol] 100 U/L Normal 38-113 [facility] Comment on above: Order Comment: Speci men Type: BLOOD SPECIMENOrdering Facility: [facility] Address: [address] [place] [address] Performed By: #### 2 4323-8, 6-4, 32207-1 ####[facility] LABORATORYCLIA [id number] [place] [id number] [place] ALT With P-5'-P [Catalytic activity/Vol] 19 U/L Normal 10-54 [facility] Comment on above: Order Comment: Speci men Type: BLOOD SPECIMENOrdering Facility: [facility] Address: [address] [place] [address] Performed By: #### 2 4323-8, 6-4, 06689-5 ####[facility] LABORATORYCLIA [id number] [place] [address] [place] Anion gap [Moles/Vol] 13 mmol/L Normal 8-15 [facility] Comment on above: Order Comment: Speci men Type: BLOOD SPECIMENOrdering Facility: [facility] Address: [address] [place] [address] Performed By: #### 2 4323-8, 6-4, 11034-1 ####[facility] LABORATORYCLIA [id number] [place] [id number] [place] AST With P-5'-P [Catalytic activity/Vol] 25 U/L Normal 14-40 [facility] Comment on above: Order Comment: Speci men Type: BLOOD SPECIMENOrdering Facility: [facility] Address: [address] [place] [address] Performed By: #### 2 4323-8, 6-4, 18216-0 ####[facility] LABORATORYCLIA [id number] [place] [address] [place] Bilirubin [Mass/Vol] 0.3 mg/dL Normal 0.2-1.3 [facility] Comment on above: Order Comment: Speci men Type: BLOOD SPECIMENOrdering Facility: [facility] Address: [address] [place] [address] Performed By: #### 2 4323-8, 2275-4, 92913-3 ####[facility] LABORATORYCLIA [id number] [place] [address] [place] Calcium [Mass/Vol] 9.3 mg/dL Normal 8.5-10.2 [facility] Comment on above: Order Comment: Speci men Type: BLOOD SPECIMENOrdering Facility: [facility] Address: [address] [place] [address] Performed By: #### 2 4323-8, 2275-4, 17843-0 ####[facility] LABORATORYCLIA [id number] [place] [address] [place] Chloride [Moles/Vol] 98 mmol/L Normal 98-107 [facility] Comment on above: Order Comment: Speci men Type: BLOOD SPECIMENOrdering Facility: [facility] Address: [address] [place] [address] Performed By: #### 2 4323-8, 2275-, 32529-0 ####[facility] LABORATORYCLIA [id number] [address] STATES OF [facility] CO2 [Moles/Vol] 21 mmol/L Low 22-30 [facility] Comment on above: Order Comment: Speci men Type: BLOOD SPECIMENOrdering Facility: [facility] Address: [address] [place] [address] Performed By: #### 2 4323-8, 2275-05, 43153-0 ####[facility] CITYCLIA [id number] [address] Creatinine [Mass/Vol] 0.77 mg/dL Normal 0.73-1.22 [facility] Comment on above: Order Comment: Speci men Type: BLOOD SPECIMENOrdering Facility: [facility] Address: [address] [place] [address] Performed By: #### 2 4323-8, 2275-05, 69850-3 ####[facility] CITYCLIA [id number] [address] eGFRcr SerPlBld CKD-EPI 2020 90 mL/min/1.73m??? Normal >=60 [facility] Comment on above: Order Comment: Speci men Type: BLOOD SPECIMENOrdering Facility: [facility] Address: [address] [place] [address] Result Comment: Sharon mated Glomerular Filtration Rate [...] actual GFR. Performed By: #### 2 4323-8, 2275-4, 31920-1 ####[facility] LABORATORYCLIA [id number] [place] [address] [place] Glucose [Mass/Vol] 317 mg/dL High 74-99 [facility] Comment on above: Order Comment: Speci men Type: BLOOD SPECIMENOrdering Facility: [facility] Address: [address] [place], [place] [address] Result Comment: The [place] Diabetes [employer] (ADA) provides guidance for cutoff [...] Standards of Medical Care in Diabetes 2016, [place] [employer]. Diabetes Care. 2016.39(Suppl 1). Performed By: #### 2 4323-8, 2275-, 59698-4 ####[facility] LABORATORYCLIA [id number] [place] [address] [place] Potassium [Moles/Vol] 4.2 mmol/L Normal 3.7-5.1 [facility] Comment on above: Order Comment: Mayuri men Type: BLOOD SPECIMENOrdering Facility: [facility] Address: [address] [place] [address] Performed By: #### 2 4323-8, 2275-05, 91624-4 ####[facility] LABORATORYCLIA [id number] [place] [id number] [place] Protein [Mass/Vol] 6.9 g/dL Normal 6.3-8.0 [facility] Comment on above: Order Comment: Speci men Type: BLOOD SPECIMENOrdering Facility: [facility] Address: [address] [place], [place] [address] Performed By: #### 2 4323-8, 4, 23048-7 ####[facility] LABORATORYCLIA [id number] [place] [address] [place] Sodium [Moles/Vol] 132 mmol/L Low 136-144 [facility] Comment on above: Order Comment: Speci men Type: BLOOD SPECIMENOrdering Facility: [facility] Address: [address] [place] [address] Performed By: #### 2 4323-8, 6-4, 51686-4 ####[facility] LABORATORYCLIA [id number] [place] [id number] [place] [facility] Urea nitrogen [Mass/Vol] 18 mg/dL Normal 9-24 [facility] Comment on above: Order Comment: Speci men Type: BLOOD SPECIMENOrdering Facility: [facility] Address: [address] [place] [address] Performed By: #### 2 4323-8, 6-4, 06930-2 ####[facility] LABORATORYCLIA [id number] [address] [place] Ferritin SerPl-ncon 2024 Ferritin [Mass/Vol] 3668.0 ng/mL High 30.3-565.7 [facility] Comment on above: Order Comment: Speci men Type: BLOOD SPECIMENOrdering Facility: [facility] Address: [address] [place] [address] Performed By: #### 2 4323-8, 6-4, 03535-8 ####[facility] LABORATORYCLIA [id number] [place] [address] [place] Iron and Iron binding capaci ty panelon 11-25-2024 Iron [Mass/Vol] 227 ug/dL High 41-186 [facility] Comment on above: Order Comment: Speci men Type: BLOOD SPECIMENOrdering Facility: [facility] Address: [address] [place] [address] Performed By: #### 2 4323-8, 6-4, 30386-3 ####[facility] LABORATORYCLIA [id number] [place] [id number] [place] Iron binding capacity [Mass/Vol] 271 ug/dL Normal 232-386 [facility] Comment on above: Order Comment: Speci men Type: BLOOD SPECIMENOrdering Facility: [facility] Address: [address] [place] [address] Performed By: #### 2 4323-8, 2276-4, 90370-6 ####[facility] LABORATORYCLIA [id number] [place] [address] [facility] Iron saturation [Mass fraction] 83.8 % High 15.0-57.0 [facility] Comment on above: Order Comment: Speci men Type: BLOOD SPECIMENOrdering Facility: [facility] Address: [address] [place] [address] Performed By: #### 2 4323-8, 2276-4, 33622-7 ####[facility] LABORATORYCLIA [id number] [address] TYPE + SCREENon 11-25-2024 ABO B Normal [facility] Comment on above: Order Comment: Speci men Type: BLOOD SPECIMENOrdering Facility: [facility] Address: [address] [place] [address] Performed By: #### T SCR ####[facility] BLOOD BANKCLIA [id number] [address] Rh Nom (Bld) Positive Normal [facility] Comment on above: Order Comment: Speci men Type: BLOOD SPECIMENOrdering Facility: [facility] Address: [address] [place] [address] Performed By: #### T SCR ####[facility] BLOOD BANKCLIA [id number] [address] TYPE AND SCREEN EXPIRATION 11/28/2024 23:59 Normal [facility] Comment on above: Order Comment: Speci men Type: BLOOD SPECIMENOrdering Facility: [facility] Address: [address] [place] [address] Performed By: #### T SCR ####[facility] BLOOD BANKCLIA [id number] [address] CNOVSPon 11-18-2024 CNOVSP Normal [facility] CBC W Auto Differential pane l (Bld)on 11-17-2024 Basophils (Bld) [#/Vol] 10*3/uL Normal <0.11 [facility] Comment on above: Order Comment: Speci men Type: BLOOD SPECIMENOrdering Facility: [facility] Address: [address] [place] [address] Performed By: #### 5 7021-8 ####[facility] [place] LABCLIA [id number] [place] [address] [place] Basophils/100 WBC (Bld) 0.2 % Normal [facility] Comment on above: Order Comment: Speci men Type: BLOOD SPECIMENOrdering Facility: [facility] Address: [address] [place] [address] Performed By: #### 5 7021-8 ####[facility] [place] LABCLIA [id number] [place] [address] [facility] Differential cell count method Nom (Bld) Auto Normal [facility] Comment on above: Order Comment: Speci men Type: BLOOD SPECIMENOrdering Facility: [facility] Address: [address] [place] [address] Performed By: #### 5 7021-8 ####[facility] [place] LABCLIA [id number] [place] [address] [place] Eosinophils (Bld) [#/Vol] 10*3/uL Normal <0.46 [facility] Comment on above: Order Comment: Speci men Type: BLOOD SPECIMENOrdering Facility: [facility] Address: [address] [place] [address] Performed By: #### 5 7021-8 ####[facility] [place] LABCLIA [id number] [place] [address] [facility] Eosinophils/100 WBC (Bld) 0.2 % Normal [facility] Comment on above: Order Comment: Speci men Type: BLOOD SPECIMENOrdering Facility: [facility] Address: [address] [place] [address] Performed By: #### 5 7021-8 ####[facility] [place] LABCLIA [id number] [place] [address] [place] Erythrocyte distribution width (RBC) [Ratio] 15.1 % High 11.5-15.0 [facility] Comment on above: Order Comment: Speci men Type: BLOOD SPECIMENOrdering Facility: [facility] Address: [address] [place] [address] Performed By: #### 5 7021-8 ####[facility] LABCLIA [id number] [place] [address] [place] Hematocrit (Bld) [Volume fraction] 18.8 % Low 39.0-51.0 [facility] Comment on above: Order Comment: Speci men Type: BLOOD SPECIMENOrdering Facility: [facility] Address: [address] [place] [address] Performed By: #### 5 7021-8 ####[facility] LABCLIA [id number] [place] [address] [place] Hemoglobin (Bld) [Mass/Vol] 6.5 g/dL Low 13.0-17.0 [facility] Comment on above: Order Comment: Speci men Type: BLOOD SPECIMENOrdering Facility: [facility] Address: [address] [place] [address] Performed By: #### 5 7021-8 ####[facility] [place] LABCLIA [id number] [place] [address] [place] Immature granulocytes (Bld) [#/Vol] 10*3/uL Normal <0.10 [facility] Comment on above: Order Comment: Speci men Type: BLOOD SPECIMENOrdering Facility: [facility] Address: [address] [place] [address] Performed By: #### 5 7021-8 ####[facility] LABCLIA [id number] [place] [address] [facility] [place] Immature granulocytes/100 WBC (Bld) 0.2 % Normal [facility] Comment on above: Order Comment: Speci men Type: BLOOD SPECIMENOrdering Facility: [facility] Address: [address] [place] [address] Performed By: #### 5 7021-8 ####[facility] [place] LABCLIA [id number] [place] [address] [place] Lymphocytes (Bld) [#/Vol] 2.35 10*3/uL Normal 1.00-4.00 [facility] Comment on above: Order Comment: Speci men Type: BLOOD SPECIMENOrdering Facility: [facility] Address: [address] [place] [address] Performed By: #### 5 7021-8 ####[facility] [place] LABCLIA [id number] [place] [address] [place] Lymphocytes/100 WBC (Bld) 44.4 % Normal [facility] Comment on above: Order Comment: Speci men Type: BLOOD SPECIMENOrdering Facility: [facility] Address: [address] [place] [address] Performed By: #### 5 7021-8 ####[facility] [place] LABCLIA [id number] [place] [address] [place] MCH (RBC) [Entitic mass] 31.9 pg Normal 26.0-34.0 [facility] Comment on above: Order Comment: Speci men Type: BLOOD SPECIMENOrdering Facility: [facility] Address: [address] [place] [address] Performed By: #### 5 7021-8 ####[facility] [place] LABCLIA [id number] [place] [address] [place] MCHC (RBC) [Mass/Vol] 34.6 g/dL Normal 30.5-36.0 [facility] Comment on above: Order Comment: Speci men Type: BLOOD SPECIMENOrdering Facility: [facility] Address: [address] [place] [address] Performed By: #### 5 7021-8 ####[facility] [place] LABCLIA [id number] [facility] [place] [address] [place] MCV (RBC) [Entitic vol] 92.2 fL Normal 80.0-100.0 [facility] Comment on above: Order Comment: Speci men Type: BLOOD SPECIMENOrdering Facility: [facility] Address: [address] [place] [address] Performed By: #### 5 7021-8 ####[facility] [place] LABCLIA [id number] [facility] [place] [address] [place] Monocytes (Bld) [#/Vol] 0.25 10*3/uL Normal <0.87 [facility] Comment on above: Order Comment: Speci men Type: BLOOD SPECIMENOrdering Facility: [facility] Address: [address] [place] [address] Performed By: #### 5 7021-8 ####[facility] [place] LABCLIA [id number] [place] [address] [facility] Monocytes/100 WBC (Bld) 4.7 % Normal [facility] Comment on above: Order Comment: Speci men Type: BLOOD SPECIMENOrdering Facility: [facility] Address: [address] [place] [address] Performed By: #### 5 7021-8 ####[facility] [place] LABCLIA [id number] [place] [address] [place] Neutrophils (Bld) [#/Vol] 2.66 10*3/uL Normal 1.45-7.50 [facility] Comment on above: Order Comment: Speci men Type: BLOOD SPECIMENOrdering Facility: [facility] Address: [address] [place] [address] Performed By: #### 5 7021-8 ####[facility] [place] LABCLIA [id number] [facility] [place] [address] [place] Neutrophils/100 WBC (Bld) 50.3 % Normal [facility] Comment on above: Order Comment: Speci men Type: BLOOD SPECIMENOrdering Facility: [facility] Address: [address] [place] [address] Performed By: #### 5 7021-8 ####[facility] LABCLIA [id number] [place] [address] [facility] [place] Nucleated RBC (Bld) [#/Vol] Normal [facility] Comment on above: Order Comment: Speci men Type: BLOOD SPECIMENOrdering Facility: [facility] Address: [address] [place] [address] Performed By: #### 5 7021-8 ####[facility] LABCLIA [id number] [place] [address] [facility] [place] Nucleated RBC/100 WBC (Bld) [Ratio] Normal [facility] Comment on above: Order Comment: Speci men Type: BLOOD SPECIMENOrdering Facility: [facility] Address: [address] [place] [address] Performed By: #### 5 7021-8 ####[facility] LABCLIA [id number] [place] [address] [place] Platelet mean volume (Bld) [Entitic vol] 10.3 fL Normal 9.0-12.7 [facility] Comment on above: Order Comment: Speci men Type: BLOOD SPECIMENOrdering Facility: [facility] Address: [address] [place] [address] Performed By: #### 5 7021-8 ####[facility] LABCLIA [id number] [place] [address] [facility] [place] Platelets (Bld) [#/Vol] 76 10*3/uL Low 150-400 [facility] Comment on above: Order Comment: Speci men Type: BLOOD SPECIMENOrdering Facility: [facility] Address: [address] [place] [address] Result Comment: No c lot detected.Platelet count confirmed by manual review of peripheral blood smear. Performed By: #### 5 7021-8 ####[facility] [place] LABCLIA [id number] [place] [address] [facility] RBC (Bld) [#/Vol] 2.04 10*6/uL Low 4.20-6.00 [facility] Comment on above: Order Comment: Speci men Type: BLOOD SPECIMENOrdering Facility: [facility] Address: [address] [place] [address] Performed By: #### 5 7021-8 ####[facility] LABCLIA [id number] [place] [address] [facility] WBC (Bld) [#/Vol] 5.29 10*3/uL Normal 3.70-11.00 [facility] Comment on above: Order Comment: Speci men Type: BLOOD SPECIMENOrdering Facility: [facility] Address: [address] [place] [address] Performed By: #### 5 7021-8 ####[facility] LABCLIA [id number] [place] [address] [facility] Comprehensive metabolic 2000 panelon 11-17-2024 Albumin [Mass/Vol] 3.7 g/dL Low 3.9-4.9 [facility] Comment on above: Order Comment: Speci men Type: BLOOD SPECIMENOrdering Facility: [facility] Address: [address] [place] [address] Performed By: #### 2 4323-8 ####[facility] LABCLIA [id number] [place] [address] [facility] ALP [Catalytic activity/Vol] 93 U/L Normal 38-113 [facility] Comment on above: Order Comment: Speci men Type: BLOOD SPECIMENOrdering Facility: [facility] Address: [address] [place] [address] Performed By: #### 2 4323-8 ####[facility] LABCLIA [id number] [place] [address] [facility] ALT With P-5'-P [Catalytic activity/Vol] 15 U/L Normal 10-54 [facility] Comment on above: Order Comment: Speci men Type: BLOOD SPECIMENOrdering Facility: [facility] Address: [address] [place] [address] Performed By: #### 2 4323-8 ####[facility] [place] LABCLIA [id number] [place] [address] [place] Anion gap [Moles/Vol] 19 mmol/L High 8-15 [facility] Comment on above: Order Comment: Speci men Type: BLOOD SPECIMENOrdering Facility: [facility] Address: [address] [place] [address] Performed By: #### 2 4323-8 ####[facility] [place] LABCLIA [id number] [place] [address] [place] AST With P-5'-P [Catalytic activity/Vol] 17 U/L Normal 14-40 [facility] Comment on above: Order Comment: Speci men Type: BLOOD SPECIMENOrdering Facility: [facility] Address: [address] [place] [address] Performed By: #### 2 4323-8 ####[facility] [place] LABCLIA [id number] [place] [address] [place] Bilirubin [Mass/Vol] 0.4 mg/dL Normal 0.2-1.3 [facility] Comment on above: Order Comment: Speci men Type: BLOOD SPECIMENOrdering Facility: [facility] Address: [address] [place] [address] Performed By: #### 2 4323-8 ####[facility] [place] LABCLIA [id number] [place] [facility] [address] [place] Calcium [Mass/Vol] 9.0 mg/dL Normal 8.5-10.2 [facility] Comment on above: Order Comment: Speci men Type: BLOOD SPECIMENOrdering Facility: [facility] Address: [address] [place] [address] Performed By: #### 2 4323-8 ####[facility] [place] LABCLIA [id number] [place] [address] [place] Chloride [Moles/Vol] 100 mmol/L Normal 98-107 [facility] Comment on above: Order Comment: Speci men Type: BLOOD SPECIMENOrdering Facility: [facility] Address: [address] [place] [address] Performed By: #### 2 4323-8 ####[facility] LABCLIA [id number] [place] [address] [place] CO2 [Moles/Vol] 18 mmol/L Low 22-30 [facility] Comment on above: Order Comment: Speci men Type: BLOOD SPECIMENOrdering Facility: [facility] Address: [address] [place] [address] Performed By: #### 2 4323-8 ####[facility] LABCLIA [id number] [place] [address] [place] Creatinine [Mass/Vol] 0.76 mg/dL Normal 0.73-1.22 [facility] Comment on above: Order Comment: Speci men Type: BLOOD SPECIMENOrdering Facility: [facility] Address: [address] [place] [address] Performed By: #### 2 4323-8 ####[facility] LABCLIA [id number] [place] [address] [place] eGFRcr SerPlBld CKD-EPI 2020 90 mL/min/1.73m??? Normal >=60 [facility] Comment on above: Order Comment: Speci men Type: BLOOD SPECIMENOrdering Facility: [facility] Address: [address] [place] [address] Result Comment: Sharon mated Glomerular Filtration Rate [...] actual GFR. Performed By: #### 2 4323-8 ####[facility] LABCLIA [id number] [place] [address] [place] Glucose [Mass/Vol] 323 mg/dL High 74-99 [facility] Comment on above: Order Comment: Mathew portillo Type: BLOOD SPECIMENOrdering Facility: [facility] Address: [address] [place] [address] Result Comment: The [place] Diabetes Association (ADA) provides guidance for cutoff [...] Standards of Medical Care in Diabetes 2016, [place] [employer]. Diabetes Care. 2016.39(Suppl 1). Performed By: #### 2 4323-8 ####[facility] LABCLIA [id number] [place] [address] [place] Potassium [Moles/Vol] 3.8 mmol/L Normal 3.7-5.1 [facility] Comment on above: Order Comment: Mathew portillo Type: BLOOD SPECIMENOrdering Facility: [facility] Address: [address] [place] [address] Performed By: #### 2 4323-8 ####[facility] LABCLIA [id number] [place] [address] [place] Protein [Mass/Vol] 6.7 g/dL Normal 6.3-8.0 [facility] Comment on above: Order Comment: Mathew portillo Type: BLOOD SPECIMENOrdering Facility: [facility] Address: [address] [place] [address] Performed By: #### 2 4323-8 ####[facility] LABCLIA [id number] [place] [address] [place] Sodium [Moles/Vol] 137 mmol/L Normal 136-144 [facility] Comment on above: Order Comment: Speci men Type: BLOOD SPECIMENOrdering Facility: [facility] Address: [address] [place] [address] Performed By: #### 2 4323-8 ####[facility] LABCLIA [id number] [place] [address] [facility] Urea nitrogen [Mass/Vol] 15 mg/dL Normal 9-24 [facility] Comment on above: Order Comment: Speci men Type: BLOOD SPECIMENOrdering Facility: [facility] Address: [address] [place] [address] Performed By: #### 2 4323-8 ####[facility] LABCLIA [id number] [place] [address] [facility] TYPE + SCREENon 11-17-2024 ABO B Normal [facility] Comment on above: Order Comment: Speci men Type: BLOOD SPECIMENOrdering Facility: [facility] Address: [address] [place] [address] Performed By: #### T SCR ####[facility] BLOOD BANKCLIA [id number] [address] Rh Nom (Bld) Positive Normal [facility] Comment on above: Order Comment: Speci men Type: BLOOD SPECIMENOrdering Facility: [facility] Address: [address] [place] [address] Performed By: #### T SCR ####[facility] BLOOD BANKCLIA [id number] [address] TYPE AND SCREEN EXPIRATION 11/20/2024 23:59 Normal [facility] Comment on above: Order Comment: Speci men Type: BLOOD SPECIMENOrdering Facility: [facility] Address: [address] [place] [address] Performed By: #### T SCR ####[facility] BLOOD BANKCLIA [id number] [address] [place] CBC W Auto Differential pane l (Bld)on 11-11-2024 Basophils (Bld) [#/Vol] 10*3/uL Normal <0.11 [facility] Comment on above: Order Comment: Speci men Type: BLOOD SPECIMENOrdering Facility: [facility] Address: [address] [place] [address] Performed By: #### 5 7021-8 ####[facility]ATORYCLIA [id number] [address] [place] Basophils/100 WBC (Bld) 0.2 % Normal [facility] Comment on above: Order Comment: Speci men Type: BLOOD SPECIMENOrdering Facility: [facility] Address: [address] [place] [address] Performed By: #### 5 7021-8 ####[facility]ORATORYCLIA [id number] [address] Differential cell count method Nom (Bld) Auto Normal [facility] Comment on above: Order Comment: Speci men Type: BLOOD SPECIMENOrdering Facility: [facility] Address: [address] [place] [address] Performed By: #### 5 7021-8 ####[facility] LABORATORYCLIA [id number] [address] [place] Eosinophils (Bld) [#/Vol] 10*3/uL Normal <0.46 [facility] Comment on above: Order Comment: Speci men Type: BLOOD SPECIMENOrdering Facility: [facility] Address: [address] [place] [address] Performed By: #### 5 7021-8 ####[facility]ORATORYCLIA [id number] [address] [place] Eosinophils/100 WBC (Bld) 0.0 % Normal [facility] Comment on above: Order Comment: Speci men Type: BLOOD SPECIMENOrdering Facility: [facility] Address: [address] [place] [address] Performed By: #### 5 7021-8 ####[facility]ORATORYCLIA [id number] [place] [address] [place] Erythrocyte distribution width (RBC) [Ratio] 14.7 % Normal 11.5-15.0 [facility] Comment on above: Order Comment: Speci men Type: BLOOD SPECIMENOrdering Facility: [facility] Address: [address] [place] [address] Performed By: #### 5 7021-8 ####[facility] LABORATORYCLIA [id number] [address] [place] Hematocrit (Bld) [Volume fraction] 22.0 % Low 39.0-51.0 [facility] Comment on above: Order Comment: Speci men Type: BLOOD SPECIMENOrdering Facility: [facility] Address: [address] [place] [address] Performed By: #### 5 7021-8 ####[facility] LABORATORYCLIA [id number] [address] [place] Hemoglobin (Bld) [Mass/Vol] 7.6 g/dL Low 13.0-17.0 [facility] Comment on above: Order Comment: Speci men Type: BLOOD SPECIMENOrdering Facility: [facility] Address: [address] [place] [address] Performed By: #### 5 7021-8 ####[facility] LABORATORYCLIA [id number] [address] [place] Immature granulocytes (Bld) [#/Vol] 10*3/uL Normal <0.10 [facility] Comment on above: Order Comment: Speci men Type: BLOOD SPECIMENOrdering Facility: [facility] Address: [address] [place] [address] Performed By: #### 5 7021-8 ####[facility] LABORATORYCLIA [id number] [address] [place] Immature granulocytes/100 WBC (Bld) 0.2 % Normal [facility] Comment on above: Order Comment: Speci men Type: BLOOD SPECIMENOrdering Facility: [facility] Address: [address] [place] [address] Performed By: #### 5 7021-8 ####[facility]ORATORYCLIA [id number] [address] [place] Lymphocytes (Bld) [#/Vol] 1.86 10*3/uL Normal 1.00-4.00 [facility] Comment on above: Order Comment: Speci men Type: BLOOD SPECIMENOrdering Facility: [facility] Address: [address] [place] [address] Performed By: #### 5 7021-8 ####[facility] LABORATORYCLIA [id number] [address] Lymphocytes/100 WBC (Bld) 36.8 % Normal [facility] Comment on above: Order Comment: Speci men Type: BLOOD SPECIMENOrdering Facility: [facility] Address: [address] [place] [address] Performed By: #### 5 7021-8 ####[facility] LABORATORYCLIA [id number] [address] STATES [facility] MCH (RBC) [Entitic mass] 32.2 pg Normal 26.0-34.0 [facility] Comment on above: Order Comment: Speci men Type: BLOOD SPECIMENOrdering Facility: [facility] Address: [address] [place] [address] Performed By: #### 5 7021-8 ####[facility] LABORATORYCLIA [id number] [address] [place] MCHC (RBC) [Mass/Vol] 34.5 g/dL Normal 30.5-36.0 [facility] Comment on above: Order Comment: Speci men Type: BLOOD SPECIMENOrdering Facility: [facility] Address: [address] [place] [address] Performed By: #### 5 7021-8 ####[facility] LABORATORYCLIA [id number] [address] MCV (RBC) [Entitic vol] 93.2 fL Normal 80.0-100.0 [facility] Comment on above: Order Comment: Speci men Type: BLOOD SPECIMENOrdering Facility: [facility] Address: [address] [place] [address] Performed By: #### 5 7021-8 ####[facility]ORATORYCLIA [id number] [place] [address] [place] Monocytes (Bld) [#/Vol] 0.34 10*3/uL Normal <0.87 [facility] Comment on above: Order Comment: Speci men Type: BLOOD SPECIMENOrdering Facility: [facility] Address: [address] [place] [address] Performed By: #### 5 7021-8 ####[facility]ORATORYCLIA [id number] [address] [place] Monocytes/100 WBC (Bld) 6.7 % Normal [facility] Comment on above: Order Comment: Speci men Type: BLOOD SPECIMENOrdering Facility: [facility] Address: [address] [place] [address] Performed By: #### 5 7021-8 ####[facility] LABORATORYCLIA [id number] [place] [address] [place] Neutrophils (Bld) [#/Vol] 2.84 10*3/uL Normal 1.45-7.50 [facility] Comment on above: Order Comment: Speci men Type: BLOOD SPECIMENOrdering Facility: [facility] Address: [address] [place] [address] Performed By: #### 5 7021-8 ####[facility]ORATORYCLIA [id number] [address] [place] Neutrophils/100 WBC (Bld) 56.1 % Normal [facility] Comment on above: Order Comment: Speci men Type: BLOOD SPECIMENOrdering Facility: [facility] Address: [address] [place] [address] Performed By: #### 5 7021-8 ####[facility]ORATORYCLIA [id number] [place] [address] [place] Nucleated RBC (Bld) [#/Vol] 10*3/uL Normal <0.01 [facility] Comment on above: Order Comment: Speci men Type: BLOOD SPECIMENOrdering Facility: [facility] Address: [address] [place] [address] Performed By: #### 5 7021-8 ####[facility] LABORATORYCLIA [id number] [address] [place] Nucleated RBC/100 WBC (Bld) [Ratio] 0.0 /100 WBC Normal [facility] Comment on above: Order Comment: Speci men Type: BLOOD SPECIMENOrdering Facility: [facility] Address: [address] [place] [address] Performed By: #### 5 7021-8 ####[facility] LABORATORYCLIA [id number] [place] [address] [place] Platelet mean volume (Bld) [Entitic vol] 11.5 fL Normal 9.0-12.7 [facility] Comment on above: Order Comment: Speci men Type: BLOOD SPECIMENOrdering Facility: [facility] Address: [address] [place] [address] Performed By: #### 5 7021-8 ####[facility] LABORATORYCLIA [id number] [place] [address] [place] Platelets (Bld) [#/Vol] 101 10*3/uL Low 150-400 [facility] Comment on above: Order Comment: Speci men Type: BLOOD SPECIMENOrdering Facility: [facility] Address: [address] [place] [address] Performed By: #### 5 7021-8 ####[facility] LABORATORYCLIA [id number] [place] [address] [place] RBC (Bld) [#/Vol] 2.36 10*6/uL Low 4.20-6.00 [facility] Comment on above: Order Comment: Speci men Type: BLOOD SPECIMENOrdering Facility: [facility] Address: [address] [place] [address] Performed By: #### 5 7021-8 ####[facility] LABORATORYCLIA [id number] [address] [place] WBC (Bld) [#/Vol] 5.06 10*3/uL Normal 3.70-11.00 [facility] Comment on above: Order Comment: Speci men Type: BLOOD SPECIMENOrdering Facility: [facility] Address: [address] [place] [address] Performed By: #### 5 7021-8 ####[facility] LABORATORYCLIA [id number] [address] [place] CNCNPATEDon 11-11-2024 CNCNPATED Normal [facility] Comprehensive metabolic 2000 panelon 11-11-2024 Albumin [Mass/Vol] 3.7 g/dL Low 3.9-4.9 [facility] Comment on above: Order Comment: Speci men Type: BLOOD SPECIMENOrdering Facility: [facility] Address: [address] [place] [address] Performed By: #### 2 4323-8 ####[facility] LABORATORYCLIA [id number] [address] STATES OF [facility] ALP [Catalytic activity/Vol] 94 U/L Normal 38-113 [facility] Comment on above: Order Comment: Speci men Type: BLOOD SPECIMENOrdering Facility: [facility] Address: [address] [place] [address] Performed By: #### 2 4323-8 ####[facility] LABORATORYCLIA [id number] [address] [place] ALT With P-5'-P [Catalytic activity/Vol] 18 U/L Normal 10-54 [facility] Comment on above: Order Comment: Speci men Type: BLOOD SPECIMENOrdering Facility: [facility] Address: [address] [place] [address] Performed By: #### 2 4323-8 ####[facility] LABORATORYCLIA [id number] [address] [place] Anion gap [Moles/Vol] 15 mmol/L Normal 8-15 [facility] Comment on above: Order Comment: Speci men Type: BLOOD SPECIMENOrdering Facility: [facility] Address: [address] [place] [address] Performed By: #### 2 4323-8 ####[facility]ORATORYCLIA [id number] [place] [address] [place] AST With P-5'-P [Catalytic activity/Vol] 23 U/L Normal 14-40 [facility] Comment on above: Order Comment: Speci men Type: BLOOD SPECIMENOrdering Facility: [facility] Address: [address] [place] [address] Performed By: #### 2 4323-8 ####[facility]ORATORYCLIA [id number] [place] [address] [place] Bilirubin [Mass/Vol] 0.3 mg/dL Normal 0.2-1.3 [facility] Comment on above: Order Comment: Speci men Type: BLOOD SPECIMENOrdering Facility: [facility] Address: [address] [place] [address] Performed By: #### 2 4323-8 ####[facility] LABORATORYCLIA [id number] [place] [address] [place] Calcium [Mass/Vol] 9.1 mg/dL Normal 8.5-10.2 [facility] Comment on above: Order Comment: Speci men Type: BLOOD SPECIMENOrdering Facility: [facility] Address: [address] [place] [address] Performed By: #### 2 4323-8 ####[facility] LABORATORYCLIA [id number] [place] [address] [place] Chloride [Moles/Vol] 99 mmol/L Normal 98-107 [facility] Comment on above: Order Comment: Speci men Type: BLOOD SPECIMENOrdering Facility: [facility] Address: [address] [place] [address] Performed By: #### 2 4323-8 ####[facility]ORATORYCLIA [id number] [place] [address] [place] CO2 [Moles/Vol] 21 mmol/L Low 22-30 [facility] Comment on above: Order Comment: Speci men Type: BLOOD SPECIMENOrdering Facility: [facility] Address: [address] [place] [address] Performed By: #### 2 4323-8 ####[facility] CITYCLIA [id number] [place] [id number] [place] Creatinine [Mass/Vol] 0.74 mg/dL Normal 0.73-1.22 [facility] Comment on above: Order Comment: Speci men Type: BLOOD SPECIMENOrdering Facility: [facility] Address: [address] [place] [address] Performed By: #### 2 4323-8 ####[facility] LABORATORYCLIA [id number] [address] eGFRcr SerPlBld CKD-EPI 2020 91 mL/min/1.73m??? Normal >=60 [facility] Comment on above: Order Comment: Speci men Type: BLOOD SPECIMENOrdering Facility: [facility] Address: [address] [place] [address] Result Comment: Sharon mated Glomerular Filtration Rate [...] actual GFR. Performed By: #### 2 4323-8 ####[facility] LABORATORYCLIA [id number] [address] [place] Glucose [Mass/Vol] 291 mg/dL High 74-99 [facility] Comment on above: Order Comment: Mathew protillo Type: BLOOD SPECIMENOrdering Facility: [facility] Address: [address] [place] [address] Result Comment: The [place] Diabetes [employer] (ADA) provides guidance for cutoff [...] Standards of Medical Care in Diabetes 2016, [place] [employer]. Diabetes Care. 2016.39(Suppl 1). Performed By: #### 2 4323-8 ####[facility] LABORATORYCLIA [id number] [address] [place] Potassium [Moles/Vol] 4.1 mmol/L Normal 3.7-5.1 [facility] Comment on above: Order Comment: Mathew portillo Type: BLOOD SPECIMENOrdering Facility: [facility] Address: [address] [place] [address] Performed By: #### 2 4323-8 ####[facility] LABORATORYCLIA [id number] [place] [address] [place] Protein [Mass/Vol] 6.7 g/dL Normal 6.3-8.0 [facility] Comment on above: Order Comment: Mayuri lindsey Type: BLOOD SPECIMENOrdering Facility: [facility] Address: [address] [place] [address] Performed By: #### 2 4323-8 ####[facility] LABORATORYCLIA [id number] [place] [address] [place] Sodium [Moles/Vol] 135 mmol/L Low 136-144 [facility] Comment on above: Order Comment: Mayuri men Type: BLOOD SPECIMENOrdering Facility: [facility] Address: [address] [place] [address] Performed By: #### 2 4323-8 ####[facility] LABORATORYCLIA [id number] [place] [address] [place] Urea nitrogen [Mass/Vol] 16 mg/dL Normal 9-24 [facility] Comment on above: Order Comment: Mayuri men Type: BLOOD SPECIMENOrdering Facility: [facility] Address: [address] [place] [address] Performed By: #### 2 4323-8 ####[facility] LABORATORYCLIA [id number] [place] [id number] [facility] TYPE + SCREENon 11-11-2024 ABO B Normal [facility] Comment on above: Order Comment: Speci men Type: BLOOD SPECIMENOrdering Facility: [facility] Address: [address] [place] [address] Performed By: #### T SCR ####[facility] BLOOD BANKCLIA [id number] [address] Rh Nom (Bld) Positive Normal [facility] Comment on above: Order Comment: Speci men Type: BLOOD SPECIMENOrdering Facility: [facility] Address: [address] [place] [address] Performed By: #### T SCR ####[facility] BLOOD BANKCLIA [id number] [address] TYPE AND SCREEN EXPIRATION 11/14/2024 23:59 Normal [facility] Comment on above: Order Comment: Speci men Type: BLOOD SPECIMENOrdering Facility: [facility] Address: [address] [place] [address] Performed By: #### T SCR ####[facility] BLOOD BANKCLIA [id number] [place] [id number] [facility] COPPER BLOODon 11-10-2024 Copper [Mass/Vol] 89 ug/dL Normal 70-140 [facility] Comment on above: Order Comment: Speci men Type: BLOOD SPECIMENOrdering Facility: [facility] Address: [address] [place] [address] Result Comment: This test was developed, and its performance characteristics determined by the [facility] Department of Pathology and Laboratory Medicine. It has not been cleared or approved by the FDA. The [facility] Department of Pathology and Laboratory Medicine is regulated under CLIA as qualified to perform high-complexity testing. This test is used for clinical purposes. It should not be regarded as investigational or for research. Performed By: #### C OPPER ####[facility] LABCLIA [id number] [place] [id number] [place] OF [facility] Methylmalonate SerPl-sCncon 11-10-2024 Methylmalonate [Moles/Vol] 0.08 umol/L Normal <=0.40 [facility] Comment on above: Order Comment: Speci men Type: BLOOD SPECIMENOrdering Facility: [facility] Address: [address] [place] [address] Result Comment: This test was developed, and its performance characteristics determined by the [facility] Department of Pathology and Laboratory Medicine. It has not been cleared or approved by the FDA. The [facility] Department of Pathology and Laboratory Medicine is regulated under CLIA as qualified to perform high-complexity testing. This test is used for clinical purposes. It should not be regarded as investigational or for research. Performed By: #### 1 3964-2 ####[facility] LABCLIA [id number] [place] [address] [place] TSH SerPl-aCncon 11-10-2024 TSH Qn 2.110 m[IU]/L Normal 0.270-4.200 [facility] Comment on above: Order Comment: Speci men Type: BLOOD SPECIMENOrdering Facility: [facility] Address: [address] [place] [address] Performed By: #### 3 016-3 ####[facility] LABCLIA [id number] [place] [address] [place] Testost SerPl-mCncon 025 Testosterone [Mass/Vol] 274 ng/dL Normal 193-824 [facility] Comment on above: Order Comment: Speci men Type: BLOOD SPECIMENOrdering Facility: [facility] Address: [address] [place] [address] Result Comment: A te stosterone level in the 193-320 ng/dL range with associated clinical symptoms is considered low and may indicate hypogonadism (from [facility] [phone]:123-135). Results >320 ng/dL are considered normal. Performed By: #### 2 986-8 ####[facility] LABORATORYCLIA [id number] [place] [address] [place] CNOVSPon 11-04-2024 CNOVSP Normal [facility] CBC W Auto Differential pane l (Bld)on 11-03-2024 Basophils (Bld) [#/Vol] 10*3/uL Normal <0.11 [facility] Comment on above: Order Comment: Speci men Type: BLOOD SPECIMENOrdering Facility: [facility] Address: [address] [place] [address] Performed By: #### 5 7021-8 ####[facility] LABCLIA [id number] [place] [address] [place] Basophils/100 WBC (Bld) 0.5 % Normal [facility] Comment on above: Order Comment: Speci men Type: BLOOD SPECIMENOrdering Facility: [facility] Address: [address] [place] [address] Performed By: #### 5 7021-8 ####[facility] LABCLIA [id number] [place] [address] [place] Differential cell count method Nom (Bld) Auto Normal [facility] Comment on above: Order Comment: Speci men Type: BLOOD SPECIMENOrdering Facility: [facility] Address: [address] [place] [address] Performed By: #### 5 7021-8 ####[facility] LABCLIA [id number] [place] [address] [place] Eosinophils (Bld) [#/Vol] 10*3/uL Normal <0.46 [facility] Comment on above: Order Comment: Speci men Type: BLOOD SPECIMENOrdering Facility: [facility] Address: [address] [place] [address] Performed By: #### 5 7021-8 ####[facility] LABCLIA [id number] [place] [address] [place] Eosinophils/100 WBC (Bld) 0.2 % Normal [facility] Comment on above: Order Comment: Speci men Type: BLOOD SPECIMENOrdering Facility: [facility] Address: [address] [place] [address] Performed By: #### 5 7021-8 ####[facility] LABCLIA [id number] [place] [address] [place] Erythrocyte distribution width (RBC) [Ratio] 14.4 % Normal 11.5-15.0 [facility] Comment on above: Order Comment: Speci men Type: BLOOD SPECIMENOrdering Facility: [facility] Address: [address] [place] [address] Performed By: #### 5 7021-8 ####[facility] [place] LABCLIA [id number] [facility] [place] [address] [place] Hematocrit (Bld) [Volume fraction] 19.7 % Low 39.0-51.0 [facility] Comment on above: Order Comment: Speci men Type: BLOOD SPECIMENOrdering Facility: [facility] Address: [address] [place] [address] Performed By: #### 5 7021-8 ####[facility] LABCLIA [id number] [place] [address] [place] Hemoglobin (Bld) [Mass/Vol] 6.7 g/dL Low 13.0-17.0 [facility] Comment on above: Order Comment: Speci men Type: BLOOD SPECIMENOrdering Facility: [facility] Address: [address] [place] [address] Performed By: #### 5 7021-8 ####[facility] [place] LABCLIA [id number] [facility] [place] [address] [place] Immature granulocytes (Bld) [#/Vol] 10*3/uL Normal <0.10 [facility] Comment on above: Order Comment: Speci men Type: BLOOD SPECIMENOrdering Facility: [facility] Address: [address] [place] [address] Performed By: #### 5 7021-8 ####[facility] [place] LABCLIA [id number] [place] [address] [facility] Immature granulocytes/100 WBC (Bld) 0.0 % Normal [facility] Comment on above: Order Comment: Speci men Type: BLOOD SPECIMENOrdering Facility: [facility] Address: [address] [place] [address] Performed By: #### 5 7021-8 ####[facility] [place] LABCLIA [id number] [place] [address] [place] Lymphocytes (Bld) [#/Vol] 1.67 10*3/uL Normal 1.00-4.00 [facility] Comment on above: Order Comment: Speci men Type: BLOOD SPECIMENOrdering Facility: [facility] Address: [address] [place] [address] Performed By: #### 5 7021-8 ####[facility] [place] LABCLIA [id number] [address] Lymphocytes/100 WBC (Bld) 39.2 % Normal [facility] Comment on above: Order Comment: Speci men Type: BLOOD SPECIMENOrdering Facility: [facility] Address: [address] [place] [address] Performed By: #### 5 7021-8 ####[facility] [place] LABCLIA [id number] [place] [id number] [place] MCH (RBC) [Entitic mass] 31.0 pg Normal 26.0-34.0 [facility] Comment on above: Order Comment: Speci men Type: BLOOD SPECIMENOrdering Facility: [facility] Address: [address] [place] [address] Performed By: #### 5 7021-8 ####[facility] [place] LABCLIA [id number] [address] [place] MCHC (RBC) [Mass/Vol] 34.0 g/dL Normal 30.5-36.0 [facility] Comment on above: Order Comment: Speci men Type: BLOOD SPECIMENOrdering Facility: [facility] Address: [address] [place] [address] Performed By: #### 5 7021-8 ####[facility] [place] LABCLIA [id number] [place] [address] [place] MCV (RBC) [Entitic vol] 91.2 fL Normal 80.0-100.0 [facility] Comment on above: Order Comment: Speci men Type: BLOOD SPECIMENOrdering Facility: [facility] Address: [address] [place] [address] Performed By: #### 5 7021-8 ####[facility] [place] LABCLIA [id number] [place] [facility] [place] [address] [place] Monocytes (Bld) [#/Vol] 0.34 10*3/uL Normal <0.87 [facility] Comment on above: Order Comment: Speci men Type: BLOOD SPECIMENOrdering Facility: [facility] Address: [address] [place] [address] Performed By: #### 5 7021-8 ####[facility] [place] LABCLIA [id number] [facility] [place] [address] [place] Monocytes/100 WBC (Bld) 8.0 % Normal [facility] Comment on above: Order Comment: Speci men Type: BLOOD SPECIMENOrdering Facility: [facility] Address: [address] [place] [address] Performed By: #### 5 7021-8 ####[facility] [place] LABCLIA [id number] [facility] [place] [address] [place] Neutrophils (Bld) [#/Vol] 2.22 10*3/uL Normal 1.45-7.50 [facility] Comment on above: Order Comment: Speci men Type: BLOOD SPECIMENOrdering Facility: [facility] Address: [address] [place] [address] Performed By: #### 5 7021-8 ####[facility] [place] LABCLIA [id number] [facility] [place] [address] [place] Neutrophils/100 WBC (Bld) 52.1 % Normal [facility] Comment on above: Order Comment: Speci men Type: BLOOD SPECIMENOrdering Facility: [facility] Address: [address] [place] [address] Performed By: #### 5 7021-8 ####[facility] [place] LABCLIA [id number] [place] [address] [place] Nucleated RBC (Bld) [#/Vol] Normal [facility] Comment on above: Order Comment: Speci men Type: BLOOD SPECIMENOrdering Facility: [facility] Address: [address] [place] [address] Performed By: #### 5 7021-8 ####[facility] [place] LABCLIA [id number] [place] [facility] [address] [place] Nucleated RBC/100 WBC (Bld) [Ratio] Normal [facility] Comment on above: Order Comment: Speci men Type: BLOOD SPECIMENOrdering Facility: [facility] Address: [address] [place] [address] Performed By: #### 5 7021-8 ####[facility] LABCLIA [id number] [place] [address] [place] Platelet mean volume (Bld) [Entitic vol] 10.6 fL Normal 9.0-12.7 [facility] Comment on above: Order Comment: Speci men Type: BLOOD SPECIMENOrdering Facility: [facility] Address: [address] [place] [address] Performed By: #### 5 7021-8 ####[facility] [place] LABCLIA [id number] [place] [address] [place] Platelets (Bld) [#/Vol] 94 10*3/uL Low 150-400 [facility] Comment on above: Order Comment: Speci men Type: BLOOD SPECIMENOrdering Facility: [facility] Address: [address] [place] [address] Result Comment: No c lot detected. Performed By: #### 5 7021-8 ####[facility] [place] LABCLIA [id number] [place] [address] [facility] RBC (Bld) [#/Vol] 2.16 10*6/uL Low 4.20-6.00 [facility] Comment on above: Order Comment: Speci men Type: BLOOD SPECIMENOrdering Facility: [facility] Address: [address] [place] [address] Performed By: #### 5 7021-8 ####[facility] [place] LABCLIA [id number] [place] [address] [facility] WBC (Bld) [#/Vol] 4.26 10*3/uL Normal 3.70-11.00 [facility] Comment on above: Order Comment: Speci men Type: BLOOD SPECIMENOrdering Facility: [facility] Address: [address] [place] [address] Performed By: #### 5 7021-8 ####[facility] LABCLIA [id number] [place] [address] [facility] Comprehensive metabolic 2000 panelon 11-03-2024 Albumin [Mass/Vol] 3.8 g/dL Low 3.9-4.9 [facility] Comment on above: Order Comment: Speci men Type: BLOOD SPECIMENOrdering Facility: [facility] Address: [address] [place] [address] Performed By: #### 2 4323-8 ####[facility] LABCLIA [id number] [place] [address] [facility] ALP [Catalytic activity/Vol] 107 U/L Normal 38-113 [facility] Comment on above: Order Comment: Speci men Type: BLOOD SPECIMENOrdering Facility: [facility] Address: [address] [place] [address] Performed By: #### 2 4323-8 ####[facility] LABCLIA [id number] [place] [address] [facility] ALT With P-5'-P [Catalytic activity/Vol] 16 U/L Normal 10-54 [facility] Comment on above: Order Comment: Speci men Type: BLOOD SPECIMENOrdering Facility: [facility] Address: [address] [place] [address] Performed By: #### 2 4323-8 ####[facility] [place] LABCLIA [id number] [place] [address] [place] Anion gap [Moles/Vol] 16 mmol/L High 8-15 [facility] Comment on above: Order Comment: Speci men Type: BLOOD SPECIMENOrdering Facility: [facility] Address: [address] [place] [address] Performed By: #### 2 4323-8 ####[facility] [place] LABCLIA [id number] [facility] [place] [address] [place] AST With P-5'-P [Catalytic activity/Vol] 21 U/L Normal 14-40 [facility] Comment on above: Order Comment: Speci men Type: BLOOD SPECIMENOrdering Facility: [facility] Address: [address] [place] [address] Performed By: #### 2 4323-8 ####[facility] [place] LABCLIA [id number] [place] [address] [place] Bilirubin [Mass/Vol] 0.3 mg/dL Normal 0.2-1.3 [facility] Comment on above: Order Comment: Speci men Type: BLOOD SPECIMENOrdering Facility: [facility] Address: [address] [place] [address] Performed By: #### 2 4323-8 ####[facility] [place] LABCLIA [id number] [place] [address] [place] Calcium [Mass/Vol] 9.0 mg/dL Normal 8.5-10.2 [facility] Comment on above: Order Comment: Speci men Type: BLOOD SPECIMENOrdering Facility: [facility] Address: [address] [place] [address] Performed By: #### 2 4323-8 ####[facility] [place] LABCLIA [id number] [place] [address] [place] Chloride [Moles/Vol] 99 mmol/L Normal 98-107 [facility] Comment on above: Order Comment: Speci men Type: BLOOD SPECIMENOrdering Facility: [facility] Address: [address] [place] [address] Performed By: #### 2 4323-8 ####[facility] LABCLIA [id number] [place] [address] [place] CO2 [Moles/Vol] 20 mmol/L Low 22-30 [facility] Comment on above: Order Comment: Speci men Type: BLOOD SPECIMENOrdering Facility: [facility] Address: [address] [place] [address] Performed By: #### 2 4323-8 ####[facility] LABCLIA [id number] [place] [address] [place] Creatinine [Mass/Vol] 0.83 mg/dL Normal 0.73-1.22 [facility] Comment on above: Order Comment: Speci men Type: BLOOD SPECIMENOrdering Facility: [facility] Address: [address] [place] [address] Performed By: #### 2 4323-8 ####[facility] LABCLIA [id number] [place] [address] [place] [facility] eGFRcr SerPlBld CKD-EPI 2020 88 mL/min/1.73m??? Normal >=60 [facility] Comment on above: Order Comment: Speci men Type: BLOOD SPECIMENOrdering Facility: [facility] Address: [address] [place] [address] Result Comment: Sharon mated Glomerular Filtration Rate [...] actual GFR. Performed By: #### 2 4323-8 ####[facility] [place] LABCLIA [id number] [place] [address] [place] Glucose [Mass/Vol] 375 mg/dL High 74-99 [facility] Comment on above: Order Comment: Mathew portillo Type: BLOOD SPECIMENOrdering Facility: [facility] Address: [address] [place] [address] Result Comment: The [place] [employer] (ADA) provides guidance for cutoff [...] Standards of Medical Care in Diabetes 2016, [place] [employer]. Diabetes Care. 2016.39(Suppl 1). Performed By: #### 2 4323-8 ####[facility] [place] LABCLIA [id number] [place] [address] [place] Potassium [Moles/Vol] 4.2 mmol/L Normal 3.7-5.1 [facility] Comment on above: Order Comment: Mathew portillo Type: BLOOD SPECIMENOrdering Facility: [facility] Address: [address] [place] [address] Performed By: #### 2 4323-8 ####[facility] LABCLIA [id number] [place] [address] [place] Protein [Mass/Vol] 6.7 g/dL Normal 6.3-8.0 [facility] Comment on above: Order Comment: Mathew lindsey Type: BLOOD SPECIMENOrdering Facility: [facility] Address: [address] [place] [address] Performed By: #### 2 4323-8 ####[facility] [place] LABCLIA [id number] [place] [address] [place] Sodium [Moles/Vol] 135 mmol/L Low 136-144 [facility] Comment on above: Order Comment: Speci men Type: BLOOD SPECIMENOrdering Facility: [facility] Address: [address] [place] [address] Performed By: #### 2 4323-8 ####[facility] LABCLIA [id number] [place] [address] [place] Urea nitrogen [Mass/Vol] 17 mg/dL Normal 9-24 [facility] Comment on above: Order Comment: Speci men Type: BLOOD SPECIMENOrdering Facility: [facility] Address: [address] [place] [address] Performed By: #### 2 4323-8 ####[facility] LABCLIA [id number] [place] [address] [place] Ferritin SerPl-ncon 2024 Ferritin [Mass/Vol] 3145.0 ng/mL High 30.3-565.7 [facility] Comment on above: Order Comment: Speci men Type: BLOOD SPECIMENOrdering Facility: [facility] Address: [address] [place] [address] Performed By: #### 5 0190-8, 2276-4 ####[facility] LABORATORYCLIA [id number] [place] [address] [place] Iron and Iron binding capaci ty panelon 11-03-2024 Iron [Mass/Vol] 239 ug/dL High 41-186 [facility] Comment on above: Order Comment: Speci men Type: BLOOD SPECIMENOrdering Facility: [facility] Address: [address] [place] [address] Performed By: #### 5 0190-8, 2276-4 ####[facility] LABORATORYCLIA [id number] [address] [place] Iron binding capacity [Mass/Vol] <256 Normal 232-386 [facility] Comment on above: Order Comment: Speci men Type: BLOOD SPECIMENOrdering Facility: [facility] Address: [address] [place] [address] Performed By: #### 5 0190-8, 2276-4 ####[facility] LABORATORYCLIA [id number] [address] Iron saturation [Mass fraction] >93.4 High 15.0-57.0 [facility] Comment on above: Order Comment: Speci men Type: BLOOD SPECIMENOrdering Facility: [facility] Address: [address] [place] [address] Performed By: #### 5 0190-8, 6-4 ####[facility] LABORATORYCLIA [id number] [address] TYPE + SCREENon 11-03-2024 ABO B Normal [facility] Comment on above: Order Comment: Speci men Type: BLOOD SPECIMENOrdering Facility: [facility] Address: [address] [place] [address] Performed By: #### T SCR ####[facility] BLOOD BANKCLIA [id number] [address] Rh Nom (Bld) Positive Normal [facility] Comment on above: Order Comment: Speci men Type: BLOOD SPECIMENOrdering Facility: [facility] Address: [address] [place] [address] Performed By: #### T SCR ####[facility] BLOOD BANKCLIA [id number] [address] TYPE AND SCREEN EXPIRATION 11/06/2024 23:59 Normal [facility] Comment on above: Order Comment: Speci men Type: BLOOD SPECIMENOrdering Facility: [facility] Address: [address] [place] [address] Performed By: #### T SCR ####[facility] BLOOD BANKCLIA [id number] [address] CBC W Auto Differential pane l (Bld)on 10-27-2024 Basophils (Bld) [#/Vol] 10*3/uL Normal <0.11 [facility] Comment on above: Order Comment: Speci men Type: BLOOD SPECIMENOrdering Facility: [facility] Address: [address] [place] [address] Performed By: #### 5 7021-8 ####[facility] [place] LABCLIA [id number] [facility] [place] [address] [place] Basophils/100 WBC (Bld) 0.6 % Normal [facility] Comment on above: Order Comment: Speci men Type: BLOOD SPECIMENOrdering Facility: [facility] Address: [address] [place] [address] Performed By: #### 5 7021-8 ####[facility] [place] LABCLIA [id number] [facility] [place] [address] [facility] [place] Differential cell count method Nom (Bld) Auto Normal [facility] Comment on above: Order Comment: Speci men Type: BLOOD SPECIMENOrdering Facility: [facility] Address: [address] [place] [address] Performed By: #### 5 7021-8 ####[facility] [place] LABCLIA [id number] [place] [address] [place] Eosinophils (Bld) [#/Vol] 10*3/uL Normal <0.46 [facility] Comment on above: Order Comment: Speci men Type: BLOOD SPECIMENOrdering Facility: [facility] Address: [address] [place] [address] Performed By: #### 5 7021-8 ####[facility] [place] LABCLIA [id number] [facility] [place] [address] [place] Eosinophils/100 WBC (Bld) 0.3 % Normal [facility] Comment on above: Order Comment: Speci men Type: BLOOD SPECIMENOrdering Facility: [facility] Address: [address] [place] [address] Performed By: #### 5 7021-8 ####[facility] [place] LABCLIA [id number] [place] [address] [place] Erythrocyte distribution width (RBC) [Ratio] 14.2 % Normal 11.5-15.0 [facility] Comment on above: Order Comment: Speci men Type: BLOOD SPECIMENOrdering Facility: [facility] Address: [address] [place] [address] Performed By: #### 5 7021-8 ####[facility] [place] LABCLIA [id number] [place] [address] [place] Hematocrit (Bld) [Volume fraction] 21.2 % Low 39.0-51.0 [facility] Comment on above: Order Comment: Speci men Type: BLOOD SPECIMENOrdering Facility: [facility] Address: [address] [place] [address] Performed By: #### 5 7021-8 ####[facility] [place] LABCLIA [id number] [place] [address] [place] Hemoglobin (Bld) [Mass/Vol] 7.3 g/dL Low 13.0-17.0 [facility] Comment on above: Order Comment: Speci men Type: BLOOD SPECIMENOrdering Facility: [facility] Address: [address] [place] [address] Performed By: #### 5 7021-8 ####[facility] [place] LABCLIA [id number] [place] [address] [place] Immature granulocytes (Bld) [#/Vol] 10*3/uL Normal <0.10 [facility] Comment on above: Order Comment: Speci men Type: BLOOD SPECIMENOrdering Facility: [facility] Address: [address] [place] [address] Performed By: #### 5 7021-8 ####[facility] [place] LABCLIA [id number] [place] [address] [facility] [place] Immature granulocytes/100 WBC (Bld) 0.3 % Normal [facility] Comment on above: Order Comment: Speci men Type: BLOOD SPECIMENOrdering Facility: [facility] Address: [address] [place] [address] Performed By: #### 5 7021-8 ####[facility] [place] LABCLIA [id number] [address] Lymphocytes (Bld) [#/Vol] 1.52 10*3/uL Normal 1.00-4.00 [facility] Comment on above: Order Comment: Speci men Type: BLOOD SPECIMENOrdering Facility: [facility] Address: [address] [place] [address] Performed By: #### 5 7021-8 ####[facility] [place] LABCLIA [id number] [address] Lymphocytes/100 WBC (Bld) 43.4 % Normal [facility] Comment on above: Order Comment: Speci men Type: BLOOD SPECIMENOrdering Facility: [facility] Address: [address] [place] [address] Performed By: #### 5 7021-8 ####[facility] LABCLIA [id number] [address] MCH (RBC) [Entitic mass] 31.6 pg Normal 26.0-34.0 [facility] Comment on above: Order Comment: Speci men Type: BLOOD SPECIMENOrdering Facility: [facility] Address: [address] [place] [address] Performed By: #### 5 7021-8 ####[facility] LABCLIA [id number] [address] [place] [facility] MCHC (RBC) [Mass/Vol] 34.4 g/dL Normal 30.5-36.0 [facility] Comment on above: Order Comment: Speci men Type: BLOOD SPECIMENOrdering Facility: [facility] Address: [address] [place] [address] Performed By: #### 5 7021-8 ####[facility] [place] LABCLIA [id number] [address] MCV (RBC) [Entitic vol] 91.8 fL Normal 80.0-100.0 [facility] Comment on above: Order Comment: Speci men Type: BLOOD SPECIMENOrdering Facility: [facility] Address: [address] [place] [address] Performed By: #### 5 7021-8 ####[facility] [place] LABCLIA [id number] [place] [address] [place] Monocytes (Bld) [#/Vol] 0.21 10*3/uL Normal <0.87 [facility] Comment on above: Order Comment: Speci men Type: BLOOD SPECIMENOrdering Facility: [facility] Address: [address] [place] [address] Performed By: #### 5 7021-8 ####[facility] [place] LABCLIA [id number] [place] [address] [place] Monocytes/100 WBC (Bld) 6.0 % Normal [facility] Comment on above: Order Comment: Speci men Type: BLOOD SPECIMENOrdering Facility: [facility] Address: [address] [place] [address] Performed By: #### 5 7021-8 ####[facility]CLIA [id number] [place] [address] [place] Neutrophils (Bld) [#/Vol] 1.73 10*3/uL Normal 1.45-7.50 [facility] Comment on above: Order Comment: Speci men Type: BLOOD SPECIMENOrdering Facility: [facility] Address: [address] [place] [address] Performed By: #### 5 7021-8 ####[facility]CLIA [id number] [facility] [place] [address] [place] Neutrophils/100 WBC (Bld) 49.4 % Normal [facility] Comment on above: Order Comment: Speci men Type: BLOOD SPECIMENOrdering Facility: [facility] Address: [address] [place] [address] Performed By: #### 5 7021-8 ####[facility] [place] LABCLIA [id number] [place] [address] [place] Nucleated RBC (Bld) [#/Vol] Normal [facility] Comment on above: Order Comment: Speci men Type: BLOOD SPECIMENOrdering Facility: [facility] Address: [address] [place] [address] Performed By: #### 5 7021-8 ####[facility] LABCLIA [id number] [place] [address] [place] Nucleated RBC/100 WBC (Bld) [Ratio] Normal [facility] Comment on above: Order Comment: Speci men Type: BLOOD SPECIMENOrdering Facility: [facility] Address: [address] [place] [address] Performed By: #### 5 7021-8 ####[facility] LABCLIA [id number] [place] [address] [place] Platelet mean volume (Bld) [Entitic vol] 11.2 fL Normal 9.0-12.7 [facility] Comment on above: Order Comment: Speci men Type: BLOOD SPECIMENOrdering Facility: [facility] Address: [address] [place] [address] Performed By: #### 5 7021-8 ####[facility] LABCLIA [id number] [place] [address] [place] Platelets (Bld) [#/Vol] 87 10*3/uL Low 150-400 [facility] Comment on above: Order Comment: Speci men Type: BLOOD SPECIMENOrdering Facility: [facility] Address: [address] [place] [address] Result Comment: Resu lts checked and verified.No clot detected.Reviewed. Performed By: #### 5 7021-8 ####[facility] [place] LABCLIA [id number] [place] [address] [place] RBC (Bld) [#/Vol] 2.31 10*6/uL Low 4.20-6.00 [facility] Comment on above: Order Comment: Speci men Type: BLOOD SPECIMENOrdering Facility: [facility] Address: [address] [place] [address] Performed By: #### 5 7021-8 ####[facility] [place] LABCLIA [id number] [facility] [place] [address] [facility] WBC (Bld) [#/Vol] 3.50 10*3/uL Low 3.70-11.00 [facility] Comment on above: Order Comment: Speci men Type: BLOOD SPECIMENOrdering Facility: [facility] Address: [address] [place] [address] Performed By: #### 5 7021-8 ####[facility] [place] LABCLIA [id number] [facility] [place] [address] [facility] Comprehensive metabolic 2000 panelon 10-27-2024 Albumin [Mass/Vol] 3.8 g/dL Low 3.9-4.9 [facility] Comment on above: Order Comment: Speci men Type: BLOOD SPECIMENOrdering Facility: [facility] Address: [address] [place] [address] Performed By: #### 2 4323-8 ####[facility] LABCLIA [id number] [facility] [place] [address] [facility] [place] ALP [Catalytic activity/Vol] 109 U/L Normal 38-113 [facility] Comment on above: Order Comment: Speci men Type: BLOOD SPECIMENOrdering Facility: [facility] Address: [address] [place] [address] Performed By: #### 2 4323-8 ####[facility] LABCLIA [id number] [place] [address] [facility] ALT With P-5'-P [Catalytic activity/Vol] 17 U/L Normal 10-54 [facility] Comment on above: Order Comment: Speci men Type: BLOOD SPECIMENOrdering Facility: [facility] Address: [address] [place] [address] Performed By: #### 2 4323-8 ####[facility] LABCLIA [id number] [place] [address] [facility] Anion gap [Moles/Vol] 16 mmol/L High 8-15 [facility] Comment on above: Order Comment: Speci men Type: BLOOD SPECIMENOrdering Facility: [facility] Address: [address] [place] [address] Performed By: #### 2 4323-8 ####[facility] [place] LABCLIA [id number] [facility] [place] [address] [place] AST With P-5'-P [Catalytic activity/Vol] 18 U/L Normal 14-40 [facility] Comment on above: Order Comment: Speci men Type: BLOOD SPECIMENOrdering Facility: [facility] Address: [address] [place] [address] Performed By: #### 2 4323-8 ####[facility] [place] LABCLIA [id number] [facility] [place] [address] [place] Bilirubin [Mass/Vol] 0.3 mg/dL Normal 0.2-1.3 [facility] Comment on above: Order Comment: Speci men Type: BLOOD SPECIMENOrdering Facility: [facility] Address: [address] [place] [address] Performed By: #### 2 4323-8 ####[facility] [place] LABCLIA [id number] [facility] [place] [address] [place] Calcium [Mass/Vol] 8.9 mg/dL Normal 8.5-10.2 [facility] Comment on above: Order Comment: Speci men Type: BLOOD SPECIMENOrdering Facility: [facility] Address: [address] [place] [address] Performed By: #### 2 4323-8 ####[facility] [place] LABCLIA [id number] [address] [facility] [place] [address] [place] Chloride [Moles/Vol] 101 mmol/L Normal 98-107 [facility] Comment on above: Order Comment: Speci men Type: BLOOD SPECIMENOrdering Facility: [facility] Address: [address] [place] [address] Performed By: #### 2 4323-8 ####[facility] [place] LABCLIA [id number] [place] [address] [place] CO2 [Moles/Vol] 19 mmol/L Low 22-30 [facility] Comment on above: Order Comment: Speci men Type: BLOOD SPECIMENOrdering Facility: [facility] Address: [address] [place] [address] Performed By: #### 2 4323-8 ####[facility] LABCLIA [id number] [place] [address] [place] Creatinine [Mass/Vol] 0.82 mg/dL Normal 0.73-1.22 [facility] Comment on above: Order Comment: Speci men Type: BLOOD SPECIMENOrdering Facility: [facility] Address: [address] [place] [address] Performed By: #### 2 4323-8 ####[facility] LABCLIA [id number] [place] [address] [facility] eGFRcr SerPlBld CKD-EPI 2020 88 mL/min/1.73m??? Normal >=60 [facility] Comment on above: Order Comment: Speci men Type: BLOOD SPECIMENOrdering Facility: [facility] Address: [address] [place] [address] Result Comment: Sharon mated Glomerular Filtration Rate [...] actual GFR. Performed By: #### 2 4323-8 ####[facility] LABCLIA [id number] [place] [address] [place] Glucose [Mass/Vol] 343 mg/dL High 74-99 [facility] Comment on above: Order Comment: Speci men Type: BLOOD SPECIMENOrdering Facility: [facility] Address: [address] [place] [address] Result Comment: The [place] [employer] Association (ADA) provides guidance for cutoff [...] Standards of Medical Care in Diabetes 2016, [place] [employer]. Diabetes Care. 2016.39(Suppl 1). Performed By: #### 2 4323-8 ####[facility] [place] LABCLIA [id number] [place] [address] [place] Potassium [Moles/Vol] 4.0 mmol/L Normal 3.7-5.1 [facility] Comment on above: Order Comment: Mathew men Type: BLOOD SPECIMENOrdering Facility: [facility] Address: [address] [place] [address] Performed By: #### 2 4323-8 ####[facility] LABCLIA [id number] [place] [address] [place] Protein [Mass/Vol] 6.7 g/dL Normal 6.3-8.0 [facility] Comment on above: Order Comment: Mathew portillo Type: BLOOD SPECIMENOrdering Facility: [facility] Address: [address] [place] [address] Performed By: #### 2 4323-8 ####[facility] [place] LABCLIA [id number] [place] [address] [place] Sodium [Moles/Vol] 136 mmol/L Normal 136-144 [facility] Comment on above: Order Comment: Mathew men Type: BLOOD SPECIMENOrdering Facility: [facility] Address: [address] [place] [address] Performed By: #### 2 4323-8 ####[facility] [place] LABCLIA [id number] [place] [address] [place] Urea nitrogen [Mass/Vol] 14 mg/dL Normal 9-24 [facility] Comment on above: Order Comment: Speci men Type: BLOOD SPECIMENOrdering Facility: [facility] Address: [address] [place] [address] Performed By: #### 2 4323-8 ####[facility] [place] LABCLIA [id number] [place] [address] [place] Ferritin SerPl-mCncon 2024 Ferritin [Mass/Vol] 3034.0 ng/mL High 30.3-565.7 [facility] Comment on above: Order Comment: Speci men Type: BLOOD SPECIMENOrdering Facility: [facility] Address: [address] [place] [address] Performed By: #### 2 276-4, 70111-5 ####[facility] LABORATORYCLIA [id number] [address] [place] Iron and Iron binding capaci ty panelon 10-27-2024 Iron [Mass/Vol] 228 ug/dL High 41-186 [facility] Comment on above: Order Comment: Speci men Type: BLOOD SPECIMENOrdering Facility: [facility] Address: [address] [place] [address] Performed By: #### 2 276-4, 99106-8 ####[facility] LABORATORYCLIA [id number] [address] [place] Iron binding capacity [Mass/Vol] <245 Normal 232-386 [facility] Comment on above: Order Comment: Speci men Type: BLOOD SPECIMENOrdering Facility: [facility] Address: [address] [place] [address] Performed By: #### 2 276-4, 57397-9 ####[facility] LABORATORYCLIA [id number] [address] Iron saturation [Mass fraction] >93.1 High 15.0-57.0 [facility] Comment on above: Order Comment: Speci men Type: BLOOD SPECIMENOrdering Facility: [facility] Address: [address] [place] [address] Performed By: #### 2 276-4, 21513-1 ####[facility] LABORATORYCLIA [id number] [address] TYPE + SCREENon 10-27-2024 ABO B Normal [facility] Comment on above: Order Comment: Speci men Type: BLOOD SPECIMENOrdering Facility: [facility] Address: [address] [place] [address] Performed By: #### T SCR ####[facility] BLOOD BANKCLIA [id number] [address] Rh Nom (Bld) Positive Normal [facility] Comment on above: Order Comment: Speci men Type: BLOOD SPECIMENOrdering Facility: [facility] Address: [address] [place] [address] Performed By: #### T SCR ####[facility] BLOOD BANKCLIA [id number] [address] TYPE AND SCREEN EXPIRATION 10/30/2024 23:59 Normal [facility] Comment on above: Order Comment: Speci men Type: BLOOD SPECIMENOrdering Facility: [facility] Address: [address] [place] [address] Performed By: #### T SCR ####[facility] BLOOD BANKCLIA [id number] [address] OF [facility] CBC W Auto Differential pane l (Bld)on 10-19-2024 Basophils (Bld) [#/Vol] 10*3/uL Normal <0.11 [facility] Comment on above: Order Comment: Speci men Type: BLOOD SPECIMENOrdering Facility: [facility] Address: [address] [place] [address] Performed By: #### 5 7021-8 ####[facility] [place] LABCLIA [id number] [place] Basophils/100 WBC (Bld) 0.4 % Normal [facility] Comment on above: Order Comment: Speci men Type: BLOOD SPECIMENOrdering Facility: [facility] Address: [address] [place] [address] Performed By: #### 5 7021-8 ####[facility] [place] LABCLIA [id number] [place] [address] [facility] Differential cell count method Nom (Bld) Auto Normal [facility] Comment on above: Order Comment: Speci men Type: BLOOD SPECIMENOrdering Facility: [facility] Address: [address] [place] [address] Performed By: #### 5 7021-8 ####[facility] [place] LABCLIA [id number] [facility] [place] [address] [facility] [place] Eosinophils (Bld) [#/Vol] 10*3/uL Normal <0.46 [facility] Comment on above: Order Comment: Speci men Type: BLOOD SPECIMENOrdering Facility: [facility] Address: [address] [place] [address] Performed By: #### 5 7021-8 ####[facility] [place] LABCLIA [id number] [place] [address] [place] [facility] Eosinophils/100 WBC (Bld) 0.2 % Normal [facility] Comment on above: Order Comment: Speci men Type: BLOOD SPECIMENOrdering Facility: [facility] Address: [address] [place] [address] Performed By: #### 5 7021-8 ####[facility] [place] LABCLIA [id number] [place] [address] [facility] [place] Erythrocyte distribution width (RBC) [Ratio] 13.9 % Normal 11.5-15.0 [facility] Comment on above: Order Comment: Speci men Type: BLOOD SPECIMENOrdering Facility: [facility] Address: [address] [place] [address] Performed By: #### 5 7021-8 ####[facility] [place] LABCLIA [id number] [facility] [place] [address] [facility] [place] Hematocrit (Bld) [Volume fraction] 20.7 % Low 39.0-51.0 [facility] Comment on above: Order Comment: Speci men Type: BLOOD SPECIMENOrdering Facility: [facility] Address: [address] [place] [address] Performed By: #### 5 7021-8 ####[facility] [place] LABCLIA [id number] [facility] [place] [address] [place] Hemoglobin (Bld) [Mass/Vol] 7.0 g/dL Low 13.0-17.0 [facility] Comment on above: Order Comment: Speci men Type: BLOOD SPECIMENOrdering Facility: [facility] Address: [address] [place] [address] Performed By: #### 5 7021-8 ####[facility] [place] LABCLIA [id number] [facility] [place] [address] [place] Immature granulocytes (Bld) [#/Vol] 10*3/uL Normal <0.10 [facility] Comment on above: Order Comment: Speci men Type: BLOOD SPECIMENOrdering Facility: [facility] Address: [address] [place] [address] Performed By: #### 5 7021-8 ####[facility] [place] LABCLIA [id number] [place] [address] [place] Immature granulocytes/100 WBC (Bld) 0.4 % Normal [facility] Comment on above: Order Comment: Speci men Type: BLOOD SPECIMENOrdering Facility: [facility] Address: [address] [place] [address] Performed By: #### 5 7021-8 ####[facility] [place] LABCLIA [id number] [facility] [place] [address] [place] Lymphocytes (Bld) [#/Vol] 2.06 10*3/uL Normal 1.00-4.00 [facility] Comment on above: Order Comment: Speci men Type: BLOOD SPECIMENOrdering Facility: [facility] Address: [address] [place] [address] Performed By: #### 5 7021-8 ####[facility] [place] LABCLIA [id number] [place] [address] [place] [facility] Lymphocytes/100 WBC (Bld) 42.5 % Normal [facility] Comment on above: Order Comment: Speci men Type: BLOOD SPECIMENOrdering Facility: [facility] Address: [address] [place] [address] Performed By: #### 5 7021-8 ####[facility] [place] LABCLIA [id number] [place] [address] [facility] MCH (RBC) [Entitic mass] 30.8 pg Normal 26.0-34.0 [facility] Comment on above: Order Comment: Speci men Type: BLOOD SPECIMENOrdering Facility: [facility] Address: [address] [place] [address] Performed By: #### 5 7021-8 ####[facility] [place] LABCLIA [id number] [place] [address] [facility] MCHC (RBC) [Mass/Vol] 33.8 g/dL Normal 30.5-36.0 [facility] Comment on above: Order Comment: Speci men Type: BLOOD SPECIMENOrdering Facility: [facility] Address: [address] [place] [address] Performed By: #### 5 7021-8 ####[facility] [place] LABCLIA [id number] [place] [address] [facility] [place] MCV (RBC) [Entitic vol] 91.2 fL Normal 80.0-100.0 [facility] Comment on above: Order Comment: Speci men Type: BLOOD SPECIMENOrdering Facility: [facility] Address: [address] [place] [address] Performed By: #### 5 7021-8 ####[facility] [place] LABCLIA [id number] [place] [address] [facility] Monocytes (Bld) [#/Vol] 0.29 10*3/uL Normal <0.87 [facility] Comment on above: Order Comment: Speci men Type: BLOOD SPECIMENOrdering Facility: [facility] Address: [address] [place] [address] Performed By: #### 5 7021-8 ####[facility] [place] LABCLIA [id number] [place] [address] [place] Monocytes/100 WBC (Bld) 6.0 % Normal [facility] Comment on above: Order Comment: Speci men Type: BLOOD SPECIMENOrdering Facility: [facility] Address: [address] [place] [address] Performed By: #### 5 7021-8 ####[facility] [place] LABCLIA [id number] [facility] [place] [address] [place] Neutrophils (Bld) [#/Vol] 2.45 10*3/uL Normal 1.45-7.50 [facility] Comment on above: Order Comment: Speci men Type: BLOOD SPECIMENOrdering Facility: [facility] Address: [address] [place] [address] Performed By: #### 5 7021-8 ####[facility] [place] LABCLIA [id number] [facility] [place] [address] [place] Neutrophils/100 WBC (Bld) 50.5 % Normal [facility] Comment on above: Order Comment: Speci men Type: BLOOD SPECIMENOrdering Facility: [facility] Address: [address] [place] [address] Performed By: #### 5 7021-8 ####[facility] [place] LABCLIA [id number] [place] [address] [place] Nucleated RBC (Bld) [#/Vol] Normal [facility] Comment on above: Order Comment: Speci men Type: BLOOD SPECIMENOrdering Facility: [facility] Address: [address] [place] [address] Performed By: #### 5 7021-8 ####[facility] [place] LABCLIA [id number] [place] [address] [place] Nucleated RBC/100 WBC (Bld) [Ratio] Normal [facility] Comment on above: Order Comment: Speci men Type: BLOOD SPECIMENOrdering Facility: [facility] Address: [address] [place] [address] Performed By: #### 5 7021-8 ####[facility] LABCLIA [id number] [place] [address] [place] Platelet mean volume (Bld) [Entitic vol] 11.5 fL Normal 9.0-12.7 [facility] Comment on above: Order Comment: Speci men Type: BLOOD SPECIMENOrdering Facility: [facility] Address: [address] [place] [address] Performed By: #### 5 7021-8 ####[facility] LABCLIA [id number] [place] [address] [place] Platelets (Bld) [#/Vol] 89 10*3/uL Low 150-400 [facility] Comment on above: Order Comment: Speci men Type: BLOOD SPECIMENOrdering Facility: [facility] Address: [address] [place] [address] Result Comment: No c lot detected. Performed By: #### 5 7021-8 ####[facility] LABCLIA [id number] [place] [address] [place] RBC (Bld) [#/Vol] 2.27 10*6/uL Low 4.20-6.00 [facility] Comment on above: Order Comment: Speci men Type: BLOOD SPECIMENOrdering Facility: [facility] Address: [address] [place] [address] Performed By: #### 5 7021-8 ####[facility] LABCLIA [id number] [place] [address] [place] WBC (Bld) [#/Vol] 4.85 10*3/uL Normal 3.70-11.00 [facility] Comment on above: Order Comment: Speci men Type: BLOOD SPECIMENOrdering Facility: [facility] Address: [address] [place] [address] Performed By: #### 5 7021-8 ####[facility] [place] LABCLIA [id number] [facility] [place] [address] [facility] Comprehensive metabolic 2000 panelon 10-19-2024 Albumin [Mass/Vol] 3.9 g/dL Normal 3.9-4.9 [facility] Comment on above: Order Comment: Speci men Type: BLOOD SPECIMENOrdering Facility: [facility] Address: [address] [place] [address] Performed By: #### 2 4323-8 ####[facility] [place] LABCLIA [id number] [facility] [place] [address] [facility] ALP [Catalytic activity/Vol] 115 U/L High 38-113 [facility] Comment on above: Order Comment: Speci men Type: BLOOD SPECIMENOrdering Facility: [facility] Address: [address] [place] [address] Performed By: #### 2 4323-8 ####[facility] [place] LABCLIA [id number] [facility] [place] [address] [place] ALT With P-5'-P [Catalytic activity/Vol] 18 U/L Normal 10-54 [facility] Comment on above: Order Comment: Speci men Type: BLOOD SPECIMENOrdering Facility: [facility] Address: [address] [place] [address] Performed By: #### 2 4323-8 ####[facility] [place] LABCLIA [id number] [facility] [place] [address] [place] [facility] Anion gap [Moles/Vol] 16 mmol/L High 8-15 [facility] Comment on above: Order Comment: Speci men Type: BLOOD SPECIMENOrdering Facility: [facility] Address: [address] [place] [address] Performed By: #### 2 4323-8 ####[facility] LABCLIA [id number] [facility] [place] [address] [place] With P-5'-P [Catalytic activity/Vol] 18 U/L Normal 14-40 [facility] Comment on above: Order Comment: Speci men Type: BLOOD SPECIMENOrdering Facility: [facility] HOSPITAL Address: [address] [place] [address] Performed By: #### 2 4323-8 ####[facility] LABCLIA [id number] [facility] [place] [address] [place] Bilirubin [Mass/Vol] 0.2 mg/dL Normal 0.2-1.3 [facility] Comment on above: Order Comment: Speci men Type: BLOOD SPECIMENOrdering Facility: [facility] Address: [address] [place] [address] Performed By: #### 2 4323-8 ####[facility] LABCLIA [id number] [facility] [place] [address] [place] Calcium [Mass/Vol] 9.3 mg/dL Normal 8.5-10.2 [facility] Comment on above: Order Comment: Speci men Type: BLOOD SPECIMENOrdering Facility: [facility] Address: [address] [place] [address] Performed By: #### 2 4323-8 ####[facility] LABCLIA [id number] [facility] [place] [address] [place] Chloride [Moles/Vol] 99 mmol/L Normal 98-107 [facility] Comment on above: Order Comment: Speci men Type: BLOOD SPECIMENOrdering Facility: [facility] Address: [address] [place] [address] Performed By: #### 2 4323-8 ####[facility] LABCLIA [id number] [facility] [place] [address] [place] CO2 [Moles/Vol] 19 mmol/L Low 22-30 [facility] Comment on above: Order Comment: Speci men Type: BLOOD SPECIMENOrdering Facility: [facility] Address: [address] [place] [address] Performed By: #### 2 4323-8 ####[facility] LABCLIA [id number] [address] [place] Creatinine [Mass/Vol] 0.80 mg/dL Normal 0.73-1.22 [facility] Comment on above: Order Comment: Mathew portillo Type: BLOOD SPECIMENOrdering Facility: [facility] Address: [address] [place] [address] Performed By: #### 2 4323-8 ####[facility] LABCLIA [id number] [address] eGFRcr SerPlBld CKD-EPI 2020 89 mL/min/1.73m??? Normal >=60 [facility] Comment on above: Order Comment: Mathew portillo Type: BLOOD SPECIMENOrdering Facility: [facility] Address: [address] [place] [address] Result Comment: Sharon mated Glomerular Filtration Rate [...] actual GFR. Performed By: #### 2 4323-8 ####[facility] LABCLIA [id number] [place] [id number] [place] Glucose [Mass/Vol] 371 mg/dL High 74-99 [facility] Comment on above: Order Comment: Mathew portillo Type: BLOOD SPECIMENOrdering Facility: [facility] Address: [address] [place] [address] Result Comment: The [place] Diabetes Association (ADA) provides guidance for cutoff [...] Standards of Medical Care in Diabetes 2016, [place] [employer]. Diabetes Care. 2016.39(Suppl 1). Performed By: #### 2 4323-8 ####[facility] LABCLIA [id number] [place] [address] [place] Potassium [Moles/Vol] 4.3 mmol/L Normal 3.7-5.1 [facility] Comment on above: Order Comment: Speci men Type: BLOOD SPECIMENOrdering Facility: [facility] Address: [address] [place] [address] Performed By: #### 2 4323-8 ####[facility] LABCLIA [id number] [place] [address] [place] Protein [Mass/Vol] 6.8 g/dL Normal 6.3-8.0 [facility] Comment on above: Order Comment: Speci men Type: BLOOD SPECIMENOrdering Facility: [facility] Address: [address] [place] [address] Performed By: #### 2 4323-8 ####[facility] LABCLIA [id number] [place] [address] [place] Sodium [Moles/Vol] 134 mmol/L Low 136-144 [facility] Comment on above: Order Comment: Speci men Type: BLOOD SPECIMENOrdering Facility: [facility] Address: [address] [place] [address] Performed By: #### 2 4323-8 ####[facility] LABCLIA [id number] [place] [address] [place] Urea nitrogen [Mass/Vol] 18 mg/dL Normal 9-24 [facility] Comment on above: Order Comment: Speci men Type: BLOOD SPECIMENOrdering Facility: [facility] Address: [address] [place] [address] Performed By: #### 2 4323-8 ####[facility] LABCLIA [id number] [place] [address] [place] Ferritin SerPl-mCncon 2024 Ferritin [Mass/Vol] 2910.0 ng/mL High 30.3-565.7 [facility] Comment on above: Order Comment: Speci men Type: BLOOD SPECIMENOrdering Facility: [facility] Address: [address] [place] [address] Performed By: #### 2 276-4, 95739-9 ####[facility] LABORATORYCLIA [id number] [place] [id number] [place] Iron and Iron binding capaci ty panelon 10-19-2024 Iron [Mass/Vol] 228 ug/dL High 41-186 [facility] Comment on above: Order Comment: Speci men Type: BLOOD SPECIMENOrdering Facility: [facility] Address: [address] [place] [address] Performed By: #### 2 276-4, 18549-4 ####[facility] LABORATORYCLIA [id number] [address] [place] Iron binding capacity [Mass/Vol] <245 Normal 232-386 [facility] Comment on above: Order Comment: Speci men Type: BLOOD SPECIMENOrdering Facility: [facility] Address: [address] [place] [address] Performed By: #### 2 276-4, 55954-3 ####[facility] LABORATORYCLIA [id number] [address] [place] saturation [Mass fraction] >93.1 High 15.0-57.0 [facility] Comment on above: Order Comment: Speci men Type: BLOOD SPECIMENOrdering Facility: [facility] Address: [address] [place] [address] Performed By: #### 2 276-4, 61128-1 ####[facility] LABORATORYCLIA [id number] [place] [id number] [place] TYPE + SCREENon 10-19-2024 ABO B Normal [facility] Comment on above: Order Comment: Speci men Type: BLOOD SPECIMENOrdering Facility: [facility] Address: [facility] [place], [place] [id number] Performed By: #### T SCR ####[facility] BLOOD BANKCLIA [id number] [place] [id number] [facility] Rh Nom (Bld) Positive Normal [facility] Comment on above: Order Comment: Speci men Type: BLOOD SPECIMENOrdering Facility: [facility] Address: [address] [place] [address] Performed By: #### T SCR ####[facility] BLOOD BANKCLIA [id number] [place] [address] [facility] TYPE AND SCREEN EXPIRATION 10/22/2024 23:59 Normal [facility] Comment on above: Order Comment: Speci men Type: BLOOD SPECIMENOrdering Facility: [facility] Address: [address] [place] [address] Performed By: #### T SCR ####[facility] BLOOD BANKCLIA [id number] [place] [id number] [facility] Magnetic resonance imaging r eportOrdered By: Nadir Saldaña on 10-17-2024 Study report [facility] Imaging Services [address] [place], [place] [address] Spine Lumbar (Routine) MR#: [id number] Acct: [id number] Name: JOSS OROPEZA Rep #: [id number] : 1945 M 79 From: Braden Saldaña MD PCP: Dr. German Robertson MD Status: REG CLI Study:Spine Lumbar (Routine) Date of Exam: 10/15/24 Exam# [id number] Ordering Dr: Kehinde Cordova MD PROCEDURE: SPINE LUMBAR (ROUTINE) 10/15/2024 REASON FOR EXAM: RADICULOPATHY TECHNIQUE: SPINE LUMBAR (ROUTINE) COMPARISON: 08/07/2018 FINDINGS: There is an acute mild compression deformity of the L2 vertebral body with edema. There are chronic deformities at T12, L1 and L3. There is no subluxation. There is no compression of the conus or paravertebral mass lesion. T11-T12 is unremarkable. No spinal stenosis at T12-L1. No significant canal narrowing at L1-2 or L2-3. At L3-4, there is a far left lateral disc bulge without nerve root impingement. At L4-5 tpuo-xn-fwgcqhwc circumferential canal narrowing from mild annular bulging with facet and ligamentous hypertrophy. Moderate narrowing of the right L4 neural foramen. At L5-S1 degenerative disc space narrowing is seen without spinal canal narrowing. Mild inferior foraminal narrowing bilaterally MRI/Spine Lumbar (Routine) IMPRESSION: 1. 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 Acute mild compressive deformity at L2 without retropulsion. 3. Pnwb-ou-kvfimrpl canal narrowing at L4-5 Reading Location: [facility] CC: Dr. Guicho Cordova MD; Dr. German Robertson MD ~ Foundry Process Engineer: Signed [facility] Spine Lumbar (Routine)on Spine Lumbar (Routine) [facility] Imaging Services [address] [place], [place] [id number] Spine Lumbar (Routine) MR#: [id number] Acct: [id number] Name: JOSS OROPEZA Rep #: [id number] : 1945 M 79 From: Nadir Saldaña MD PCP: Dr. German Robertson MD Status: REG CLI Study: Spine Lumbar (Routine) Date of Exam: 10/15/24 Exam# [id number] Ordering Dr: Guicho Cordova MD PROCEDURE: SPINE LUMBAR (ROUTINE) 10/15/2024 REASON FOR EXAM: RADICULOPATHY TECHNIQUE: SPINE LUMBAR (ROUTINE) COMPARISON: 08/07/2018 FINDINGS: There is an acute mild compression deformity of the L2 vertebral body with edema. There are chronic deformities at T12, L1 and L3. There is no subluxation. There is no compression of the conus or paravertebral mass lesion. T11-T12 is unremarkable. No spinal stenosis at T12-L1. No significant canal narrowing at L1-2 or L2-3. At L3-4, there is a far left lateral disc bulge without nerve root impingement. At L4-5 fknm-ew-yokmvglj circumferential canal narrowing from mild annular bulging with facet and ligamentous hypertrophy. Moderate narrowing of the right L4 neural foramen. At L5-S1 degenerative disc space narrowing is seen without spinal canal narrowing. Mild inferior foraminal narrowing bilaterally MRI/Spine Lumbar (Routine) IMPRESSION: 1. 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 Acute mild compressive deformity at L2 without retropulsion. 3. Tzsn-to-cayubvhy canal narrowing at L4-5 Reading [facility] CC: Dr. Guicho Cordova MD; Dr. German Robertson MD Foundry Process Engineer: Signed Normal [facility] CBC W Auto Differential pane l (Bld)on 10-13-2024 Basophils (Bld) [#/Vol] 10*3/uL Normal <0.11 [facility] Comment on above: Order Comment: Speci men Type: BLOOD SPECIMENOrdering Facility: [facility] Address: [address] [place] [address] Performed By: #### 5 7021-8 ####[facility] LABCLIA [id number] [place] [address] [place] Basophils/100 WBC (Bld) 0.5 % Normal [facility] Comment on above: Order Comment: Speci men Type: BLOOD SPECIMENOrdering Facility: [facility] Address: [address] [place] [address] Performed By: #### 5 7021-8 ####[facility] LABCLIA [id number] [place] [address] [place] Differential cell count method Nom (Bld) Auto Normal [facility] Comment on above: Order Comment: Speci men Type: BLOOD SPECIMENOrdering Facility: [facility] Address: [address] [place] [address] Performed By: #### 5 7021-8 ####[facility] LABCLIA [id number] [place] [address] [place] Eosinophils (Bld) [#/Vol] 10*3/uL Normal <0.46 [facility] Comment on above: Order Comment: Speci men Type: BLOOD SPECIMENOrdering Facility: [facility] Address: [address] [place] [address] Performed By: #### 5 7021-8 ####[facility] LABCLIA [id number] [place] [address] [place] Eosinophils/100 WBC (Bld) 0.5 % Normal [facility] Comment on above: Order Comment: Speci men Type: BLOOD SPECIMENOrdering Facility: [facility] Address: [address] [place] [address] Performed By: #### 5 7021-8 ####[facility] LABCLIA [id number] [place] [address] [place] Erythrocyte distribution width (RBC) [Ratio] 14.0 % Normal 11.5-15.0 [facility] Comment on above: Order Comment: Speci men Type: BLOOD SPECIMENOrdering Facility: [facility] Address: [address] [place] [address] Performed By: #### 5 7021-8 ####[facility] LABCLIA [id number] [place] [address] [place] Hematocrit (Bld) [Volume fraction] 22.8 % Low 39.0-51.0 [facility] Comment on above: Order Comment: Speci men Type: BLOOD SPECIMENOrdering Facility: [facility] Address: [address] [place] [address] Performed By: #### 5 7021-8 ####[facility] LABCLIA [id number] [place] [address] [place] Hemoglobin (Bld) [Mass/Vol] 7.8 g/dL Low 13.0-17.0 [facility] Comment on above: Order Comment: Speci men Type: BLOOD SPECIMENOrdering Facility: [facility] Address: [address] [place] [address] Performed By: #### 5 7021-8 ####[facility] LABCLIA [id number] [facility] [place] [address] [place] Immature granulocytes (Bld) [#/Vol] 10*3/uL Normal <0.10 [facility] Comment on above: Order Comment: Speci men Type: BLOOD SPECIMENOrdering Facility: [facility] Address: [address] [place] [address] Performed By: #### 5 7021-8 ####[facility] LABCLIA [id number] [facility] [place] [address] [place] [facility] Immature granulocytes/100 WBC (Bld) 0.2 % Normal [facility] Comment on above: Order Comment: Speci men Type: BLOOD SPECIMENOrdering Facility: [facility] Address: [address] [place] [address] Performed By: #### 5 7021-8 ####[facility] LABCLIA [id number] [place] [address] [place] Lymphocytes (Bld) [#/Vol] 1.86 10*3/uL Normal 1.00-4.00 [facility] Comment on above: Order Comment: Speci men Type: BLOOD SPECIMENOrdering Facility: [facility] Address: [address] [place] [address] Performed By: #### 5 7021-8 ####[facility] LABCLIA [id number] [place] [address] [place] [facility] Lymphocytes/100 WBC (Bld) 42.7 % Normal [facility] Comment on above: Order Comment: Speci men Type: BLOOD SPECIMENOrdering Facility: [facility] Address: [address] [place] [address] Performed By: #### 5 7021-8 ####[facility] [place] LABCLIA [id number] [place] [address] [facility] [place] MCH (RBC) [Entitic mass] 31.1 pg Normal 26.0-34.0 [facility] Comment on above: Order Comment: Speci men Type: BLOOD SPECIMENOrdering Facility: [facility] Address: [address] [place] [address] Performed By: #### 5 7021-8 ####[facility] LABCLIA [id number] [place] [address] [place] MCHC (RBC) [Mass/Vol] 34.2 g/dL Normal 30.5-36.0 [facility] Comment on above: Order Comment: Speci men Type: BLOOD SPECIMENOrdering Facility: [facility] Address: [address] [place] [address] Performed By: #### 5 7021-8 ####[facility] LABCLIA [id number] [place] [address] [place] MCV (RBC) [Entitic vol] 90.8 fL Normal 80.0-100.0 [facility] Comment on above: Order Comment: Speci men Type: BLOOD SPECIMENOrdering Facility: [facility] Address: [address] [place] [address] Performed By: #### 5 7021-8 ####[facility] LABCLIA [id number] [place] [address] [place] Monocytes (Bld) [#/Vol] 0.31 10*3/uL Normal <0.87 [facility] Comment on above: Order Comment: Speci men Type: BLOOD SPECIMENOrdering Facility: [facility] Address: [address] [place] [address] Performed By: #### 5 7021-8 ####[facility] LABCLIA [id number] [place] [address] [place] Monocytes/100 WBC (Bld) 7.1 % Normal [facility] Comment on above: Order Comment: Speci men Type: BLOOD SPECIMENOrdering Facility: [facility] Address: [address] [place] [address] Performed By: #### 5 7021-8 ####[facility] LABCLIA [id number] [place] [address] [place] Neutrophils (Bld) [#/Vol] 2.14 10*3/uL Normal 1.45-7.50 [facility] Comment on above: Order Comment: Speci men Type: BLOOD SPECIMENOrdering Facility: [facility] Address: [address] [place] [address] Performed By: #### 5 7021-8 ####[facility] LABCLIA [id number] [place] [address] [place] Neutrophils/100 WBC (Bld) 49.0 % Normal [facility] Comment on above: Order Comment: Speci men Type: BLOOD SPECIMENOrdering Facility: [facility] Address: [address] [place] [address] Performed By: #### 5 7021-8 ####[facility] LABCLIA [id number] [place] [address] [place] Nucleated RBC (Bld) [#/Vol] Normal [facility] Comment on above: Order Comment: Speci men Type: BLOOD SPECIMENOrdering Facility: [facility] Address: [address] [place] [address] Performed By: #### 5 7021-8 ####[facility] LABCLIA [id number] [facility] [place] [address] [place] Nucleated RBC/100 WBC (Bld) [Ratio] Normal [facility] Comment on above: Order Comment: Speci men Type: BLOOD SPECIMENOrdering Facility: [facility] Address: [address] [place] [address] Performed By: #### 5 7021-8 ####[facility] LABCLIA [id number] [place] [address] [place] Platelet mean volume (Bld) [Entitic vol] 11.8 fL Normal 9.0-12.7 [facility] Comment on above: Order Comment: Speci men Type: BLOOD SPECIMENOrdering Facility: [facility] Address: [address] [place] [address] Performed By: #### 5 7021-8 ####[facility] LABCLIA [id number] [place] [address] [facility] [place] Platelets (Bld) [#/Vol] 87 10*3/uL Low 150-400 [facility] Comment on above: Order Comment: Speci men Type: BLOOD SPECIMENOrdering Facility: [facility] Address: [address] [place] [address] Performed By: #### 5 7021-8 ####[facility] LABCLIA [id number] [place] [address] [facility] [place] RBC (Bld) [#/Vol] 2.51 10*6/uL Low 4.20-6.00 [facility] Comment on above: Order Comment: Speci men Type: BLOOD SPECIMENOrdering Facility: [facility] Address: [address] [place] [address] Performed By: #### 5 7021-8 ####[facility] LABCLIA [id number] [place] [address] [facility] WBC (Bld) [#/Vol] 4.36 10*3/uL Normal 3.70-11.00 [facility] Comment on above: Order Comment: Speci men Type: BLOOD SPECIMENOrdering Facility: [facility] Address: [address] [place] [address] Performed By: #### 5 7021-8 ####[facility] LABCLIA [id number] [place] [address] [facility] TYPE + SCREENon 10-13-2024 ABO B Normal [facility] Comment on above: Order Comment: Speci men Type: BLOOD SPECIMENOrdering Facility: [facility] Address: [address] [place] [address] Performed By: #### T SCR ####[facility] BLOOD BANKCLIA [id number] [address] Rh Nom (Bld) Positive Normal [facility] Comment on above: Order Comment: Speci men Type: BLOOD SPECIMENOrdering Facility: [facility] Address: [address] [place] [address] Performed By: #### T SCR ####[facility] BLOOD BANKCLIA [id number] [address] TYPE AND SCREEN EXPIRATION 10/16/2024 23:59 Normal [facility] Comment on above: Order Comment: Speci men Type: BLOOD SPECIMENOrdering Facility: [facility] Address: [address] [place] [address] Performed By: #### T SCR ####[facility] BLOOD BANKCLIA [id number] [address] [place] CBC W Auto Differential pane l (Bld)on 10-07-2024 Basophils (Bld) [#/Vol] 10*3/uL Normal <0.11 [facility] Comment on above: Order Comment: Speci men Type: BLOOD SPECIMENOrdering Facility: [facility] Address: [address] [place] [address] Performed By: #### 5 7021-8 ####[facility] LABORATORYCLIA [id number] [address] STATES [facility] Basophils/100 WBC (Bld) 0.4 % Normal [facility] Comment on above: Order Comment: Speci men Type: BLOOD SPECIMENOrdering Facility: [facility] Address: [address] [place] [address] Performed By: #### 5 7021-8 ####[facility] LABORATORYCLIA [id number] [address] Differential cell count method Nom (Bld) Auto Normal [facility] Comment on above: Order Comment: Speci men Type: BLOOD SPECIMENOrdering Facility: [facility] Address: [facility] [place] [address] Performed By: #### 5 7021-8 ####[facility] LABORATORYCLIA [id number] [address] [place] Eosinophils (Bld) [#/Vol] 10*3/uL Normal <0.46 [facility] Comment on above: Order Comment: Speci men Type: BLOOD SPECIMENOrdering Facility: [facility] Address: [address] [place] [address] Performed By: #### 5 7021-8 ####[facility] LABORATORYCLIA [id number] [address] Eosinophils/100 WBC (Bld) 0.2 % Normal [facility] Comment on above: Order Comment: Speci men Type: BLOOD SPECIMENOrdering Facility: [facility] Address: [address] [place] [address] Performed By: #### 5 7021-8 ####[facility] LABORATORYCLIA [id number] [address] Erythrocyte distribution width (RBC) [Ratio] 14.1 % Normal 11.5-15.0 [facility] Comment on above: Order Comment: Speci men Type: BLOOD SPECIMENOrdering Facility: [facility] Address: [address] [place] [address] Performed By: #### 5 7021-8 ####[facility] LABORATORYCLIA [id number] [address] Hematocrit (Bld) [Volume fraction] 20.8 % Low 39.0-51.0 [facility] Comment on above: Order Comment: Speci men Type: BLOOD SPECIMENOrdering Facility: [facility] Address: [address] [place] [address] Performed By: #### 5 7021-8 ####[facility] LABORATORYCLIA [id number] [address] Hemoglobin (Bld) [Mass/Vol] 7.0 g/dL Low 13.0-17.0 [facility] Comment on above: Order Comment: Speci men Type: BLOOD SPECIMENOrdering Facility: [facility] [facility] Address: [address] [place] [address] Performed By: #### 5 7021-8 ####[facility] LABORATORYCLIA [id number] [address] Immature granulocytes (Bld) [#/Vol] 10*3/uL Normal <0.10 [facility] Comment on above: Order Comment: Speci men Type: BLOOD SPECIMENOrdering Facility: [facility] Address: [address] [place] [address] Performed By: #### 5 7021-8 ####[facility] LABORATORYCLIA [id number] [address] Immature granulocytes/100 WBC (Bld) 0.4 % Normal [facility] Comment on above: Order Comment: Speci men Type: BLOOD SPECIMENOrdering Facility: [facility] Address: [address] [place] [address] Performed By: #### 5 7021-8 ####[facility] LABORATORYCLIA [id number] [address] Lymphocytes (Bld) [#/Vol] 2.14 10*3/uL Normal 1.00-4.00 [facility] Comment on above: Order Comment: Speci men Type: BLOOD SPECIMENOrdering Facility: [facility] Address: [address] [place] [address] Performed By: #### 5 7021-8 ####[facility] LABORATORYCLIA [id number] [address] Lymphocytes/100 WBC (Bld) 39.7 % Normal [facility] Comment on above: Order Comment: Speci men Type: BLOOD SPECIMENOrdering Facility: [facility] Address: [address] [place] [address] Performed By: #### 5 7021-8 ####[facility] LABORATORYCLIA [id number] [address] [place] MCH (RBC) [Entitic mass] 30.4 pg Normal 26.0-34.0 [facility] Comment on above: Order Comment: Speci men Type: BLOOD SPECIMENOrdering Facility: [facility] Address: [address] [place] [address] Performed By: #### 5 7021-8 ####[facility] LABORATORYCLIA [id number] [address] MCHC (RBC) [Mass/Vol] 33.7 g/dL Normal 30.5-36.0 [facility] Comment on above: Order Comment: Speci men Type: BLOOD SPECIMENOrdering Facility: [facility] Address: [address] [place] [address] Performed By: #### 5 7021-8 ####[facility] LABORATORYCLIA [id number] [address] [place] MCV (RBC) [Entitic vol] 90.4 fL Normal 80.0-100.0 [facility] Comment on above: Order Comment: Speci men Type: BLOOD SPECIMENOrdering Facility: [facility] Address: [address] [place] [address] Performed By: #### 5 7021-8 ####[facility] LABORATORYCLIA [id number] [address] [place] Monocytes (Bld) [#/Vol] 0.38 10*3/uL Normal <0.87 [facility] Comment on above: Order Comment: Speci men Type: BLOOD SPECIMENOrdering Facility: [facility] Address: [address] [place] [address] Performed By: #### 5 7021-8 ####[facility] LABORATORYCLIA [id number] [address] [place] Monocytes/100 WBC (Bld) 7.1 % Normal [facility] Comment on above: Order Comment: Speci men Type: BLOOD SPECIMENOrdering Facility: [facility] Address: [address] [place] [address] Performed By: #### 5 7021-8 ####[facility] LABORATORYCLIA [id number] [address] [place] Neutrophils (Bld) [#/Vol] 2.82 10*3/uL Normal 1.45-7.50 [facility] Comment on above: Order Comment: Speci men Type: BLOOD SPECIMENOrdering Facility: [facility] Address: [address] [place] [address] Performed By: #### 5 7021-8 ####[facility]ORATORYCLIA [id number] [address] Neutrophils/100 WBC (Bld) 52.2 % Normal [facility] Comment on above: Order Comment: Speci men Type: BLOOD SPECIMENOrdering Facility: [facility] Address: [address] [place] [address] Performed By: #### 5 7021-8 ####[facility]ORATORYCLIA [id number] [address] [place] Nucleated RBC (Bld) [#/Vol] 10*3/uL Normal <0.01 [facility] Comment on above: Order Comment: Speci men Type: BLOOD SPECIMENOrdering Facility: [facility] Address: [address] [place] [address] Performed By: #### 5 7021-8 ####[facility] LABORATORYCLIA [id number] [address] Nucleated RBC/100 WBC (Bld) [Ratio] 0.0 /100 WBC Normal [facility] Comment on above: Order Comment: Speci men Type: BLOOD SPECIMENOrdering Facility: [facility] Address: [address] [place] [address] Performed By: #### 5 7021-8 ####[facility] LABORATORYCLIA [id number] [address] [place] Platelet mean volume (Bld) [Entitic vol] 10.5 fL Normal 9.0-12.7 [facility] Comment on above: Order Comment: Speci men Type: BLOOD SPECIMENOrdering Facility: [facility] Address: [address] [place] [address] Performed By: #### 5 7021-8 ####[facility] LABORATORYCLIA [id number] [address] [place] Platelets (Bld) [#/Vol] 86 10*3/uL Low 150-400 [facility] Comment on above: Order Comment: Speci men Type: BLOOD SPECIMENOrdering Facility: [facility] Address: [address] [place] [address] Performed By: #### 5 7021-8 ####[facility] LABORATORYCLIA [id number] [address] RBC (Bld) [#/Vol] 2.30 10*6/uL Low 4.20-6.00 [facility] Comment on above: Order Comment: Speci men Type: BLOOD SPECIMENOrdering Facility: [facility] Address: [address] [place] [address] Performed By: #### 5 7021-8 ####[facility] LABORATORYCLIA [id number] [address] WBC (Bld) [#/Vol] 5.39 10*3/uL Normal 3.70-11.00 [facility] Comment on above: Order Comment: Speci men Type: BLOOD SPECIMENOrdering Facility: [facility] Address: [address] [place] [address] Performed By: #### 5 7021-8 ####[facility] LABORATORYCLIA [id number] [address] CNOVSPon 10-07-2024 CNOVSP Normal [facility] TYPE + SCREENon 10-07-2024 ABO B Normal [facility] Comment on above: Order Comment: Speci men Type: BLOOD SPECIMENOrdering Facility: [facility] Address: [address] [place] [address] Performed By: #### T SCR ####[facility] BLOOD BANKCLIA [id number] [address] Rh Nom (Bld) Positive Normal [facility] Comment on above: Order Comment: Speci men Type: BLOOD SPECIMENOrdering Facility: [facility] Address: [address] [place] [address] Performed By: #### T SCR ####[facility] BLOOD BANKCLIA [id number] [address] TYPE AND SCREEN EXPIRATION 10/10/2024 23:59 Normal [facility] Comment on above: Order Comment: Speci men Type: BLOOD SPECIMENOrdering Facility: [facility] Address: [facility] [place] [address] Performed By: #### T SCR ####[facility] BLOOD BANKCLIA [id number] [place] [address] [place] CBC W Auto Differential pane l (Bld)on 10-06-2024 Basophils (Bld) [#/Vol] [facility] Basophils/100 WBC (Bld) 0.2 % [facility] Differential cell count method Nom (Bld) Auto [facility] Eosinophils (Bld) [#/Vol] [facility] Eosinophils/100 WBC (Bld) 0.4 % [facility] Erythrocyte distribution width (RBC) [Ratio] 14.2 % 11.5 - 15.0 % [facility] Hematocrit (Bld) [Volume fraction] 21.1 % Low 39.0 - 51.0 % [facility] Hemoglobin (Bld) [Mass/Vol] 7.1 g/dL Low 13.0 - 17.0 g/dL [facility] Immature granulocytes (Bld) [#/Vol] [facility] Immature granulocytes/100 WBC (Bld) 0.2 % [facility] Interpretation and review of laboratory results Abnormal [facility] Lymphocytes (Bld) [#/Vol] 1.71 10*3/uL [facility] Lymphocytes/100 WBC (Bld) 37.6 % [facility] MCH (RBC) [Entitic mass] 30.3 pg 26.0 - 34.0 pg [facility] MCHC (RBC) [Mass/Vol] 33.6 g/dL 30.5 - 36.0 g/dL [facility] MCV (RBC) [Entitic vol] 90.2 fL 80.0 - 100.0 fL [facility] Monocytes (Bld) [#/Vol] 0.27 10*3/uL [facility] Monocytes/100 WBC (Bld) 5.9 % [facility] Neutrophils (Bld) [#/Vol] 2.53 10*3/uL [facility] Neutrophils/100 WBC (Bld) 55.7 % [facility] Nucleated RBC (Bld) [#/Vol] [facility] Nucleated RBC/100 WBC (Bld) [Ratio] [facility] Platelet mean volume (Bld) [Entitic vol] 10.1 fL 9.0 - 12.7 fL [facility] Platelets (Bld) [#/Vol] 90 10*3/uL Low [facility] Comment on above: No clot detected.Res ults checked and verified. RBC (Bld) [#/Vol] 2.34 10*6/uL Low 4.20 - 6.0 0 m/uL [facility] WBC (Bld) [#/Vol] 4.55 10*3/uL [facility] Basophils (Bld) [#/Vol] 10*3/uL Normal <0.11 [facility] Comment on above: Order Comment: Speci men Type: BLOOD SPECIMENOrdering Facility: [facility] Address: [address] [place] [address] Performed By: #### 5 7021-8 ####[facility] [place] LABCLIA [id number] [place] [address] [place] Basophils/100 WBC (Bld) 0.2 % Normal [facility] Comment on above: Order Comment: Speci men Type: BLOOD SPECIMENOrdering Facility: [facility] Address: [address] [place] [address] Performed By: #### 5 7021-8 ####[facility] LABCLIA [id number] [place] [address] [place] Differential cell count method Nom (Bld) Auto Normal [facility] Comment on above: Order Comment: Speci men Type: BLOOD SPECIMENOrdering Facility: [facility] Address: [address] [place] [address] Performed By: #### 5 7021-8 ####[facility] [place] LABCLIA [id number] [place] [address] [place] Eosinophils (Bld) [#/Vol] 10*3/uL Normal <0.46 [facility] Comment on above: Order Comment: Speci men Type: BLOOD SPECIMENOrdering Facility: [facility] Address: [address] [place], [place] [address] Performed By: #### 5 7021-8 ####[facility] [place] LABCLIA [id number] [place] [address] [facility] [place] Eosinophils/100 WBC (Bld) 0.4 % Normal [facility] Comment on above: Order Comment: Speci men Type: BLOOD SPECIMENOrdering Facility: [facility] Address: [address] [place] [address] Performed By: #### 5 7021-8 ####[facility] [place] LABCLIA [id number] [place] [address] [facility] Erythrocyte distribution width (RBC) [Ratio] 14.2 % Normal 11.5-15.0 [facility] Comment on above: Order Comment: Speci men Type: BLOOD SPECIMENOrdering Facility: [facility] Address: [address] [place] [address] Performed By: #### 5 7021-8 ####[facility] LABCLIA [id number] [place] [address] [facility] Hematocrit (Bld) [Volume fraction] 21.1 % Low 39.0-51.0 [facility] Comment on above: Order Comment: Speci men Type: BLOOD SPECIMENOrdering Facility: [facility] Address: [address] [place] [address] Performed By: #### 5 7021-8 ####[facility] [place] LABCLIA [id number] [place] [address] [place] Hemoglobin (Bld) [Mass/Vol] 7.1 g/dL Low 13.0-17.0 [facility] Comment on above: Order Comment: Speci men Type: BLOOD SPECIMENOrdering Facility: [facility] Address: [address] [place] [address] Performed By: #### 5 7021-8 ####[facility] [place] LABCLIA [id number] [place] [address] [place] Immature granulocytes (Bld) [#/Vol] 10*3/uL Normal <0.10 [facility] Comment on above: Order Comment: Speci men Type: BLOOD SPECIMENOrdering Facility: [facility] Address: [address] [place] [address] Performed By: #### 5 7021-8 ####[facility] [place] LABCLIA [id number] [place] [address] [facility] Immature granulocytes/100 WBC (Bld) 0.2 % Normal [facility] Comment on above: Order Comment: Speci men Type: BLOOD SPECIMENOrdering Facility: [facility] Address: [address] [place] [address] Performed By: #### 5 7021-8 ####[facility] [place] LABCLIA [id number] [address] Lymphocytes (Bld) [#/Vol] 1.71 10*3/uL Normal 1.00-4.00 [facility] Comment on above: Order Comment: Speci men Type: BLOOD SPECIMENOrdering Facility: [facility] Address: [address] [place] [address] Performed By: #### 5 7021-8 ####[facility] [place] LABCLIA [id number] [address] STATES [facility] Lymphocytes/100 WBC (Bld) 37.6 % Normal [facility] Comment on above: Order Comment: Speci men Type: BLOOD SPECIMENOrdering Facility: [facility] Address: [address] [place] [address] Performed By: #### 5 7021-8 ####[facility] [place] LABCLIA [id number] [place] [address] [place] MCH (RBC) [Entitic mass] 30.3 pg Normal 26.0-34.0 [facility] Comment on above: Order Comment: Speci men Type: BLOOD SPECIMENOrdering Facility: [facility] Address: [address] [place] [address] Performed By: #### 5 7021-8 ####[facility] [place] LABCLIA [id number] [place] [address] [place] [facility] MCHC (RBC) [Mass/Vol] 33.6 g/dL Normal 30.5-36.0 [facility] Comment on above: Order Comment: Speci men Type: BLOOD SPECIMENOrdering Facility: [facility] Address: [address] [place] [address] Performed By: #### 5 7021-8 ####[facility] [place] LABCLIA [id number] [place] [address] [facility] MCV (RBC) [Entitic vol] 90.2 fL Normal 80.0-100.0 [facility] Comment on above: Order Comment: Speci men Type: BLOOD SPECIMENOrdering Facility: [facility] Address: [address] [place] [address] Performed By: #### 5 7021-8 ####[facility] [place] LABCLIA [id number] [address] [place] Monocytes (Bld) [#/Vol] 0.27 10*3/uL Normal <0.87 [facility] Comment on above: Order Comment: Speci men Type: BLOOD SPECIMENOrdering Facility: [facility] Address: [address] [place] [address] Performed By: #### 5 7021-8 ####[facility] [place] LABCLIA [id number] [place] [address] [facility] Monocytes/100 WBC (Bld) 5.9 % Normal [facility] Comment on above: Order Comment: Speci men Type: BLOOD SPECIMENOrdering Facility: [facility] Address: [address] [place] [address] Performed By: #### 5 7021-8 ####[facility] [place] LABCLIA [id number] [place] [address] [facility] [place] Neutrophils (Bld) [#/Vol] 2.53 10*3/uL Normal 1.45-7.50 [facility] Comment on above: Order Comment: Speci men Type: BLOOD SPECIMENOrdering Facility: [facility] Address: [address] [place] [address] Performed By: #### 5 7021-8 ####[facility] [place] LABCLIA [id number] [place] [address] [place] Neutrophils/100 WBC (Bld) 55.7 % Normal [facility] Comment on above: Order Comment: Speci men Type: BLOOD SPECIMENOrdering Facility: [facility] Address: [address] [place] [address] Performed By: #### 5 7021-8 ####[facility] [place] LABCLIA [id number] [place] [address] [place] Nucleated RBC (Bld) [#/Vol] Normal [facility] Comment on above: Order Comment: Speci men Type: BLOOD SPECIMENOrdering Facility: [facility] Address: [address] [place] [address] Performed By: #### 5 7021-8 ####[facility] [place] LABCLIA [id number] [facility] [facility] [place] [address] [place] Nucleated RBC/100 WBC (Bld) [Ratio] Normal [facility] Comment on above: Order Comment: Speci men Type: BLOOD SPECIMENOrdering Facility: [facility] Address: [address] [place] [address] Performed By: #### 5 7021-8 ####[facility] LABCLIA [id number] [place] [address] [place] Platelet mean volume (Bld) [Entitic vol] 10.1 fL Normal 9.0-12.7 [facility] Comment on above: Order Comment: Speci men Type: BLOOD SPECIMENOrdering Facility: [facility] Address: [address] [place] [address] Performed By: #### 5 7021-8 ####[facility] LABCLIA [id number] [place] [address] [place] Platelets (Bld) [#/Vol] 90 10*3/uL Low 150-400 [facility] Comment on above: Order Comment: Speci men Type: BLOOD SPECIMENOrdering Facility: [facility] Address: [address] [place] [address] Result Comment: No c lot detected.Results checked and verified. Performed By: #### 5 7021-8 ####[facility] LABCLIA [id number] [place] [address] [facility] RBC (Bld) [#/Vol] 2.34 10*6/uL Low 4.20-6.00 [facility] Comment on above: Order Comment: Speci men Type: BLOOD SPECIMENOrdering Facility: [facility] Address: [address] [place] [address] Performed By: #### 5 7021-8 ####[facility] LABCLIA [id number] [place] [id number] [facility] WBC (Bld) [#/Vol] 4.55 10*3/uL Normal 3.70-11.00 [facility] Comment on above: Order Comment: Speci men Type: BLOOD SPECIMENOrdering Facility: [facility] Address: [address] [place] [address] Performed By: #### 5 7021-8 ####[facility] LABCLIA [id number] [place] [address] [facility] Comprehensive metabolic 2000 panelon 10-06-2024 Albumin [Mass/Vol] 3.7 g/dL Low 3.9 - 4.9 g/dL [facility] ALP [Catalytic activity/Vol] 112 U/L 38 - 113 U/L [facility] ALT With P-5'-P [Catalytic activity/Vol] 21 U/L 10 - 54 U/L [facility] Anion gap [Moles/Vol] 15 mmol/L 8 - 15 mmol/L [facility] AST With P-5'-P [Catalytic activity/Vol] 24 U/L 14 - 40 U/L [facility] Bilirubin [Mass/Vol] 0.2 mg/dL 0.2 - 1.3 mg/dL [facility] Calcium [Mass/Vol] 9.3 mg/dL 8.5 - 10. 2 mg/dL [facility] Chloride [Moles/Vol] 102 mmol/L 98 - 107 mmol/L [facility] CO2 [Moles/Vol] 19 mmol/L Low 22 - 30 mmol/L [facility] Creatinine [Mass/Vol] 0.78 mg/dL 0.73 - 1.22 mg/dL [facility] GFR/1.73 sq M.predicted among non-blacks MDRD (S/P/Bld) [Vol rate/Area] 90 mL/min/{1.73_m2} - PINF [facility] Comment on above: Estimated Glomerular Filtration Rate [...] not accurately reflect actual GFR. Glucose [Mass/Vol] 283 mg/dL High 74 - 99 mg/dL [facility] Comment on above: The [place] Diab[employer] Association (ADA) provides guidance for [...] Standards of Medical Care in Diabetes 2016, [place] [employer]. Diabetes Care. 2016.39(Suppl 1). Interpretation and review of laboratory results Abnormal [facility] Potassium [Moles/Vol] 4.1 mmol/L 3.7 - 5.1 mmol/L [facility] Protein [Mass/Vol] 7.0 g/dL 6.3 - 8.0 g/dL Cl [facility] Sodium [Moles/Vol] 136 mmol/L 136 - 144 mmol/L [facility] Urea nitrogen [Mass/Vol] 15 mg/dL 9 - 24 mg/dL [facility] Albumin [Mass/Vol] 3.7 g/dL Low 3.9-4.9 [facility] Comment on above: Order Comment: Speci men Type: BLOOD SPECIMENOrdering Facility: [facility] Address: [address] [place] [address] Performed By: #### 2 4323-8 ####[facility] [place] LABCLIA [id number] [place] [address] [place] ALP [Catalytic activity/Vol] 112 U/L Normal 38-113 [facility] Comment on above: Order Comment: Speci men Type: BLOOD SPECIMENOrdering Facility: [facility] Address: [address] [place] [address] Performed By: #### 2 4323-8 ####[facility] [place] LABCLIA [id number] [facility] [place] [address] [place] [facility] ALT With P-5'-P [Catalytic activity/Vol] 21 U/L Normal 10-54 [facility] Comment on above: Order Comment: Speci men Type: BLOOD SPECIMENOrdering Facility: [facility] Address: [address] [place] [address] Performed By: #### 2 4323-8 ####[facility] [place] LABCLIA [id number] [facility] [place] [address] [place] [facility] Anion gap [Moles/Vol] 15 mmol/L Normal 8-15 [facility] Comment on above: Order Comment: Speci men Type: BLOOD SPECIMENOrdering Facility: [facility] Address: [address] [place] [address] Performed By: #### 2 4323-8 ####[facility] [place] LABCLIA [id number] [facility] [place] [address] [place] AST With P-5'-P [Catalytic activity/Vol] 24 U/L Normal 14-40 [facility] Comment on above: Order Comment: Speci men Type: BLOOD SPECIMENOrdering Facility: [facility] Address: [address] [place], [place] [address] Performed By: #### 2 4323-8 ####[facility] [place] LABCLIA [id number] [place] [address] [place] Bilirubin [Mass/Vol] 0.2 mg/dL Normal 0.2-1.3 [facility] Comment on above: Order Comment: Speci men Type: BLOOD SPECIMENOrdering Facility: [facility] Address: [address] [place] [address] Performed By: #### 2 4323-8 ####[facility] [place] LABCLIA [id number] [facility] [place] [address] [place] Calcium [Mass/Vol] 9.3 mg/dL Normal 8.5-10.2 [facility] Comment on above: Order Comment: Speci men Type: BLOOD SPECIMENOrdering Facility: [facility] Address: [address] [place] [address] Performed By: #### 2 4323-8 ####[facility] [place] LABCLIA [id number] [facility] [place] [address] [place] Chloride [Moles/Vol] 102 mmol/L Normal 98-107 [facility] Comment on above: Order Comment: Speci men Type: BLOOD SPECIMENOrdering Facility: [facility] Address: [address] [place] [address] Performed By: #### 2 4323-8 ####[facility] LABCLIA [id number] [place] [address] [place] CO2 [Moles/Vol] 19 mmol/L Low 22-30 [facility] Comment on above: Order Comment: Speci men Type: BLOOD SPECIMENOrdering Facility: [facility] Address: [address] [place] [address] Performed By: #### 2 4323-8 ####[facility] LABCLIA [id number] [facility] [facility] [place] [address] [place] Creatinine [Mass/Vol] 0.78 mg/dL Normal 0.73-1.22 [facility] [facility] Comment on above: Order Comment: Speci men Type: BLOOD SPECIMENOrdering Facility: [facility] Address: [address] [place] [address] Performed By: #### 2 4323-8 ####[facility] LABCLIA [id number] [place] [address] [place] eGFRcr SerPlBld CKD-EPI 2020 90 mL/min/1.73m??? Normal >=60 [facility] Comment on above: Order Comment: Mathew portillo Type: BLOOD SPECIMENOrdering Facility: [facility] Address: [address] [place] [address] Result Comment: Sharon mated Glomerular Filtration Rate [...] actual GFR. Performed By: #### 2 4323-8 ####[facility] LABIA [id number] [place] [address] [place] Glucose [Mass/Vol] 283 mg/dL High 74-99 [facility] Comment on above: Order Comment: Mathew portillo Type: BLOOD SPECIMENOrdering Facility: [facility] Address: [address] [place] [address] Result Comment: The [place] Diabetes Association (ADA) provides guidance for cutoff [...] Standards of Medical Care in Diabetes 2016, [place] [employer]. Diabetes Care. 2016.39(Suppl 1). Performed By: #### 2 4323-8 ####[facility] LABCLIA [id number] [facility] [place] [address] [place] Potassium [Moles/Vol] 4.1 mmol/L Normal 3.7-5.1 [facility] Comment on above: Order Comment: Speci men Type: BLOOD SPECIMENOrdering Facility: [facility] Address: [address] [place] [address] Performed By: #### 2 4323-8 ####[facility] LABCLIA [id number] [place] [address] [place] Protein [Mass/Vol] 7.0 g/dL Normal 6.3-8.0 [facility] Comment on above: Order Comment: Speci men Type: BLOOD SPECIMENOrdering Facility: [facility] Address: [address] [place] [address] Performed By: #### 2 4323-8 ####[facility] LABCLIA [id number] [place] [id number] [place] Sodium [Moles/Vol] 136 mmol/L Normal 136-144 [facility] Comment on above: Order Comment: Speci men Type: BLOOD SPECIMENOrdering Facility: [facility] Address: [address] [place] [address] Performed By: #### 2 4323-8 ####[facility] LABCLIA [id number] [place] [address] [place] Urea nitrogen [Mass/Vol] 15 mg/dL Normal 9-24 [facility] Comment on above: Order Comment: Speci men Type: BLOOD SPECIMENOrdering Facility: [facility] Address: [address] [place] [address] Performed By: #### 2 4323-8 ####[facility] LABCLIA [id number] [place] [address] [place] FERRITINon 10-06-2024 Ferritin [Mass/Vol] 2924.0 ng/mL High 30.3 - 5 65.7 ng/mL [facility] Ferritin SerPl-mCncon 2024 Ferritin [Mass/Vol] 2924.0 ng/mL High 30.3-565.7 [facility] Comment on above: Order Comment: Speci men Type: BLOOD SPECIMENOrdering Facility: [facility] Address: [address] [place] [address] Performed By: #### 5 0190-8, 2275-05 ####[facility] LABORATORYCLIA [id number] [place] [address] [place] Ferritin [Mass/Vol]on 2024 Interpretation and review of laboratory results Abnormal [facility] Iron and Iron binding capaci ty panelon 10-06-2024 Interpretation and review of laboratory results Abnormal [facility] Iron [Mass/Vol] 225 ug/dL High 41 - 186 ug/dL [facility] Iron binding capacity [Mass/Vol] ug/dL 232 - 386 ug/dL [facility] Iron saturation [Mass fraction] % High 15.0 - 57.0 % [facility] Iron [Mass/Vol] 225 ug/dL High 41-186 [facility] Comment on above: Order Comment: Speci men Type: BLOOD SPECIMENOrdering Facility: [facility] Address: [address] [place] [address] Performed By: #### 5 0190-8, 2275-05 ####[facility] LABORATORYCLIA [id number] [address] [place] Iron binding capacity [Mass/Vol] <242 Normal 232-386 [facility] Comment on above: Order Comment: Speci men Type: BLOOD SPECIMENOrdering Facility: [facility] Address: [address] [place] [address] Performed By: #### 5 0190-8, 2275-05 ####[facility] LABORATORYCLIA [id number] [address] [place] Iron saturation [Mass fraction] >93.0 High 15.0-57.0 [facility] Comment on above: Order Comment: Speci men Type: BLOOD SPECIMENOrdering Facility: [facility] Address: [address] [place] [address] Performed By: #### 5 0190-8, 2276-4 ####[facility] LABORATORYCLIA [id number] [address] [place] TYPE + SCREENon 10-06-2024 ABO group Nom (Bld) B [facility] Blood group antibody screen Ql Negative [facility] Rh Nom (Bld) Positive [facility] Type and Screen Expiration 10/09/2024 23:59 [facility] ABO B Normal [facility] Comment on above: Order Comment: Speci men Type: BLOOD SPECIMENOrdering Facility: [facility] Address: [address] [place] [address] Performed By: #### T SCR ####[facility] BLOOD BANKCLIA [id number] [address] OF [place] Rh Nom (Bld) Positive Normal [facility] Comment on above: Order Comment: Speci men Type: BLOOD SPECIMENOrdering Facility: [facility] Address: [address] [place] [address] Performed By: #### T SCR ####[facility] BLOOD BANKCLIA [id number] [address] OF [place] TYPE AND SCREEN EXPIRATION 10/09/2024 23:59 Normal [facility] Comment on above: Order Comment: Speci men Type: BLOOD SPECIMENOrdering Facility: [facility] Address: [address] [place] [address] Performed By: #### T SCR ####[facility] BLOOD BANKCLIA [id number] [address] [place] 25([place])D3 [facility] 20[facility] 25-hydroxyvitamin D3 [Mass/Vol] 20.3 ng/mL Low >=30.0 [facility] Comment on above: Order Comment: Speci men Type: BLOOD SPECIMENOrdering Facility: [facility] Address: [address] [place] [address] Result Comment: Clas sification of 25 [place] Vitamin D status:Deficiency: <= 20.0 ng/ml.Insufficiency: 21.0-29.0 ng/ml.Sufficiency: >= 30.0 ng/ml. Performed By: #### 1 989-3 ####[facility] LABORATORYCLIA [id number] [place], [place] [address] [place] [address] [place] [facility] CBC W Auto Differential pane l (Bld)on 09-29-2024 Basophils (Bld) [#/Vol] 10*3/uL Normal <0.11 [facility] Comment on above: Order Comment: Speci men Type: BLOOD SPECIMENOrdering Facility: [facility] Address: [address] [place] [address] Performed By: #### 5 7021-8 ####[facility] [place] LABCLIA [id number] [place] [address] [place] [facility] Basophils/100 WBC (Bld) 0.2 % Normal [facility] Comment on above: Order Comment: Speci men Type: BLOOD SPECIMENOrdering Facility: [facility] Address: [address] [place] [address] Performed By: #### 5 7021-8 ####[facility] LABCLIA [id number] [place] [address] [facility] Differential cell count method Nom (Bld) Auto Normal [facility] Comment on above: Order Comment: Speci men Type: BLOOD SPECIMENOrdering Facility: [facility] Address: [address] [place] [address] Performed By: #### 5 7021-8 ####[facility] LABCLIA [id number] [place] [address] [place] Eosinophils (Bld) [#/Vol] 10*3/uL Normal <0.46 [facility] Comment on above: Order Comment: Speci men Type: BLOOD SPECIMENOrdering Facility: [facility] Address: [address] [place] [address] Performed By: #### 5 7021-8 ####[facility] [place] LABCLIA [id number] [place] [address] [place] Eosinophils/100 WBC (Bld) 0.2 % Normal [facility] Comment on above: Order Comment: Speci men Type: BLOOD SPECIMENOrdering Facility: [facility] Address: [address] [place] [address] Performed By: #### 5 7021-8 ####[facility] LABCLIA [id number] [place] [address] [place] Erythrocyte distribution width (RBC) [Ratio] 14.6 % Normal 11.5-15.0 [facility] Comment on above: Order Comment: Speci men Type: BLOOD SPECIMENOrdering Facility: [facility] Address: [address] [place] [address] Performed By: #### 5 7021-8 ####[facility] LABCLIA [id number] [place] [address] [place] Hematocrit (Bld) [Volume fraction] 18.6 % Low 39.0-51.0 [facility] Comment on above: Order Comment: Speci men Type: BLOOD SPECIMENOrdering Facility: [facility] Address: [address] [place] [address] Performed By: #### 5 7021-8 ####[facility] LABCLIA [id number] [place] [address] [place] Hemoglobin (Bld) [Mass/Vol] 6.3 g/dL Low 13.0-17.0 [facility] Comment on above: Order Comment: Speci men Type: BLOOD SPECIMENOrdering Facility: [facility] Address: [address] [place] [address] Performed By: #### 5 7021-8 ####[facility] LABCLIA [id number] [place] [address] [place] Immature granulocytes (Bld) [#/Vol] 10*3/uL Normal <0.10 [facility] Comment on above: Order Comment: Speci men Type: BLOOD SPECIMENOrdering Facility: [facility] Address: [address] [place] [address] Performed By: #### 5 7021-8 ####[facility] LABCLIA [id number] [place] [address] [place] Immature granulocytes/100 WBC (Bld) 0.2 % Normal [facility] Comment on above: Order Comment: Speci men Type: BLOOD SPECIMENOrdering Facility: [facility] Address: [address] [place] [address] Performed By: #### 5 7021-8 ####[facility] LABCLIA [id number] [place] [address] [place] Lymphocytes (Bld) [#/Vol] 1.58 10*3/uL Normal 1.00-4.00 [facility] Comment on above: Order Comment: Speci men Type: BLOOD SPECIMENOrdering Facility: [facility] Address: [address] [place] [address] Performed By: #### 5 7021-8 ####[facility] LABCLIA [id number] [address] Lymphocytes/100 WBC (Bld) 32.7 % Normal [facility] Comment on above: Order Comment: Speci men Type: BLOOD SPECIMENOrdering Facility: [facility] Address: [address] [place] [address] Performed By: #### 5 7021-8 ####[facility] LABCLIA [id number] [place] [id number] [place] MCH (RBC) [Entitic mass] 30.4 pg Normal 26.0-34.0 [facility] Comment on above: Order Comment: Speci men Type: BLOOD SPECIMENOrdering Facility: [facility] Address: [address] [place] [address] Performed By: #### 5 7021-8 ####[facility] LABCLIA [id number] [place] [id number] [place] MCHC (RBC) [Mass/Vol] 33.9 g/dL Normal 30.5-36.0 [facility] Comment on above: Order Comment: Speci men Type: BLOOD SPECIMENOrdering Facility: [facility] Address: [address] [place] [address] Performed By: #### 5 7021-8 ####[facility] LABCLIA [id number] [facility] [place] [address] [place] MCV (RBC) [Entitic vol] 89.9 fL Normal 80.0-100.0 [facility] Comment on above: Order Comment: Speci men Type: BLOOD SPECIMENOrdering Facility: [facility] Address: [address] [place] [address] Performed By: #### 5 7021-8 ####[facility] LABCLIA [id number] [facility] [place] [address] [place] Monocytes (Bld) [#/Vol] 0.36 10*3/uL Normal <0.87 [facility] Comment on above: Order Comment: Speci men Type: BLOOD SPECIMENOrdering Facility: [facility] Address: [address] [place] [address] Performed By: #### 5 7021-8 ####[facility] LABCLIA [id number] [facility] [place] [address] [place] Monocytes/100 WBC (Bld) 7.5 % Normal [facility] Comment on above: Order Comment: Speci men Type: BLOOD SPECIMENOrdering Facility: [facility] Address: [address] [place] [address] Performed By: #### 5 7021-8 ####[facility] LABCLIA [id number] [facility] [place] [address] [place] Neutrophils (Bld) [#/Vol] 2.86 10*3/uL Normal 1.45-7.50 [facility] Comment on above: Order Comment: Speci men Type: BLOOD SPECIMENOrdering Facility: [facility] Address: [address] [place] [address] Performed By: #### 5 7021-8 ####[facility] LABCLIA [id number] [facility] [place] [address] [place] Neutrophils/100 WBC (Bld) 59.2 % Normal [facility] Comment on above: Order Comment: Speci men Type: BLOOD SPECIMENOrdering Facility: [facility] Address: [address] [place] [address] Performed By: #### 5 7021-8 ####[facility] LABCLIA [id number] [place] [address] [place] Nucleated RBC (Bld) [#/Vol] Normal [facility] Comment on above: Order Comment: Speci men Type: BLOOD SPECIMENOrdering Facility: [facility] Address: [address] [place] [address] Performed By: #### 5 7021-8 ####[facility] [place] LABCLIA [id number] [facility] [place] [address] [place] Nucleated RBC/100 WBC (Bld) [Ratio] Normal [facility] Comment on above: Order Comment: Speci men Type: BLOOD SPECIMENOrdering Facility: [facility] Address: [address] [place] [address] Performed By: #### 5 7021-8 ####[facility] [place] LABCLIA [id number] [place] [facility] [place] [address] [place] Platelet mean volume (Bld) [Entitic vol] 10.8 fL Normal 9.0-12.7 [facility] Comment on above: Order Comment: Speci men Type: BLOOD SPECIMENOrdering Facility: [facility] Address: [address] [place] [address] Performed By: #### 5 7021-8 ####[facility] LABCLIA [id number] [place] [address] [place] Platelets (Bld) [#/Vol] 88 10*3/uL Low 150-400 [facility] Comment on above: Order Comment: Speci men Type: BLOOD SPECIMENOrdering Facility: [facility] Address: [address] [place] [address] Result Comment: Resu lts checked and verified. No clot detected. Performed By: #### 5 7021-8 ####[facility] LABCLIA [id number] [place] [address] [facility] RBC (Bld) [#/Vol] 2.07 10*6/uL Low 4.20-6.00 [facility] Comment on above: Order Comment: Speci men Type: BLOOD SPECIMENOrdering Facility: [facility] Address: [address] [place] [address] Performed By: #### 5 7021-8 ####[facility] LABIA [id number] [place] [address] [facility] WBC (Bld) [#/Vol] 4.83 10*3/uL Normal 3.70-11.00 [facility] Comment on above: Order Comment: Speci men Type: BLOOD SPECIMENOrdering Facility: [facility] Address: [address] [place] [address] Performed By: #### 5 7021-8 ####[facility] LABIA [id number] [place] [id number] [facility] COPPER BLOODon 09-29-2024 Copper [Mass/Vol] 88 ug/dL Normal 70-140 [facility] Comment on above: Order Comment: Speci men Type: BLOOD SPECIMENOrdering Facility: [facility] Address: [address] [place] [address] Result Comment: This test was developed, and its performance characteristics determined by the [facility] Department of Pathology and Laboratory Medicine. It has not been cleared or approved by the FDA. The [facility] Department of Pathology and Laboratory Medicine is regulated under CLIA as qualified to perform high-complexity testing. This test is used for clinical purposes. It should not be regarded as investigational or for research. Performed By: #### C OPPER ####[facility] LABCLIA [id number] [address] Comprehensive metabolic 2000 panelon 09-29-2024 Albumin [Mass/Vol] 3.7 g/dL Low 3.9-4.9 [facility] Comment on above: Order Comment: Speci men Type: BLOOD SPECIMENOrdering Facility: [facility] Address: [address] [place] [address] Performed By: #### 2 4323-8, 3016-3 ####[facility] [place] LABCLIA [id number] [place] [address] [place] [facility] ALP [Catalytic activity/Vol] 118 U/L High 38-113 [facility] Comment on above: Order Comment: Speci men Type: BLOOD SPECIMENOrdering Facility: [facility] Address: [address] [place] [address] Performed By: #### 2 4323-8, 6-3 ####[facility] LABCLIA [id number] [facility] [place] [address] [facility] ALT With P-5'-P [Catalytic activity/Vol] 14 U/L Normal 10-54 [facility] Comment on above: Order Comment: Speci men Type: BLOOD SPECIMENOrdering Facility: [facility] Address: [address] [place] [address] Performed By: #### 2 4323-8, 6-3 ####[facility] LABCLIA [id number] [place] [address] [facility] Anion gap [Moles/Vol] 14 mmol/L Normal 8-15 [facility] Comment on above: Order Comment: Speci men Type: BLOOD SPECIMENOrdering Facility: [facility] Address: [address] [place] [address] Performed By: #### 2 4323-8, 6-3 ####[facility] LABCLIA [id number] [facility] [place] [address] [place] AST With P-5'-P [Catalytic activity/Vol] 15 U/L Normal 14-40 [facility] Comment on above: Order Comment: Speci men Type: BLOOD SPECIMENOrdering Facility: [facility] Address: [address] [place] [address] Performed By: #### 2 4323-8, 3016-3 ####[facility] [place] LABCLIA [id number] [place] [address] [place] Bilirubin [Mass/Vol] 0.3 mg/dL Normal 0.2-1.3 [facility] Comment on above: Order Comment: Speci men Type: BLOOD SPECIMENOrdering Facility: [facility] Address: [address] [place] [address] Performed By: #### 2 4323-8, 3016-3 ####[facility] [place] LABCLIA [id number] [place] [address] [place] Calcium [Mass/Vol] 9.3 mg/dL Normal 8.5-10.2 [facility] Comment on above: Order Comment: Speci men Type: BLOOD SPECIMENOrdering Facility: [facility] Address: [address] [place] [address] Performed By: #### 2 4323-8, 3016-3 ####[facility] LABCLIA [id number] [facility] [place] [address] [place] Chloride [Moles/Vol] 102 mmol/L Normal 98-107 [facility] Comment on above: Order Comment: Speci men Type: BLOOD SPECIMENOrdering Facility: [facility] Address: [address] [place] [address] Performed By: #### 2 4323-8, 3016-3 ####[facility] LABCLIA [id number] [place] [facility] [place] [address] [place] CO2 [Moles/Vol] 21 mmol/L Low 22-30 [facility] Comment on above: Order Comment: Speci men Type: BLOOD SPECIMENOrdering Facility: [facility] Address: [address] [place] [address] Performed By: #### 2 4323-8, 3016-3 ####[facility] LABCLIA [id number] [facility] [place] [address] [place] Creatinine [Mass/Vol] 0.78 mg/dL Normal 0.73-1.22 [facility] Comment on above: Order Comment: Speci men Type: BLOOD SPECIMENOrdering Facility: [facility] Address: [address] [place] [address] Performed By: #### 2 4323-8, 3015-3 ####[facility] LABIA [id number] [place] [address] [place] eGFRcr SerPlBld CKD-EPI 2020 90 mL/min/1.73m??? Normal >=60 [facility] Comment on above: Order Comment: Mathew portillo Type: BLOOD SPECIMENOrdering Facility: [facility] Address: [address] [place] [address] Result Comment: Sharon mated Glomerular Filtration Rate [...] actual GFR. Performed By: #### 2 4323-8, 3015-3 ####[facility] LABIA [id number] [place] [address] [place] Glucose [Mass/Vol] 228 mg/dL High 74-99 [facility] Comment on above: Order Comment: Mathew portillo Type: BLOOD SPECIMENOrdering Facility: [facility] Address: [address] [place] [address] Result Comment: The [place] [employer] (ADA) provides guidance for cutoff [...] Standards of Medical Care in Diabetes 2016, [place] [employer]. Diabetes Care. 2016.39(Suppl 1). Performed By: #### 2 4323-8, 3016-3 ####[facility] [place] LABCLIA [id number] [place] [address] [place] Potassium [Moles/Vol] 4.0 mmol/L Normal 3.7-5.1 [facility] Comment on above: Order Comment: Speci men Type: BLOOD SPECIMENOrdering Facility: [facility] Address: [address] [place], [place] [address] Performed By: #### 2 4323-8, 3016-3 ####[facility] [place] LABCLIA [id number] [place] [address] [place] Protein [Mass/Vol] 6.8 g/dL Normal 6.3-8.0 [facility] Comment on above: Order Comment: Speci men Type: BLOOD SPECIMENOrdering Facility: [facility] Address: [address] [place] [address] Performed By: #### 2 4323-8, 3015-3 ####[facility] [place] LABCLIA [id number] [place] [address] [place] Sodium [Moles/Vol] 137 mmol/L Normal 136-144 [facility] Comment on above: Order Comment: Speci men Type: BLOOD SPECIMENOrdering Facility: [facility] Address: [address] [place] [address] Performed By: #### 2 4323-8, 6-3 ####[facility] LABCLIA [id number] [place] [address] [place] Urea nitrogen [Mass/Vol] 16 mg/dL Normal 9-24 [facility] [facility] Comment on above: Order Comment: Speci men Type: BLOOD SPECIMENOrdering Facility: [facility] Address: [address] [place], [place] [address] Performed By: #### 2 4323-8, 3016-3 ####[facility] [place] LABCLIA [id number] [place] [address] [place] Ferritin SerPl-ncon 2024 Ferritin [Mass/Vol] 2609.0 ng/mL High 30.3-565.7 [facility] Comment on above: Order Comment: Speci men Type: BLOOD SPECIMENOrdering Facility: [facility] Address: [address] [place] [address] Performed By: #### 2 986-8, 73296-5, 2532-0, 2276-4 ####[facility] LABORATORYCLIA [id number] [place] [address] [place] Iron and Iron binding capaci ty panelon 09-29-2024 Iron [Mass/Vol] 242 ug/dL High 41-186 [facility] Comment on above: Order Comment: Speci men Type: BLOOD SPECIMENOrdering Facility: [facility] Address: [address] [place] [address] Performed By: #### 2 986-8, 95315-6, 2532-0, 6-4 ####[facility] CITY[facility]IA [id number] [address] [place] Iron binding capacity [Mass/Vol] <259 Normal 232-386 [facility] Comment on above: Order Comment: Speci men Type: BLOOD SPECIMENOrdering Facility: [facility] Address: [address] [place] [address] Performed By: #### 2 986-8, 49183-3, 2532-0, 2276-4 ####[facility] LABORATORYCLIA [id number] [address] OF [facility] Iron saturation [Mass fraction] >93.4 High 15.0-57.0 [facility] Comment on above: Order Comment: Speci men Type: BLOOD SPECIMENOrdering Facility: [facility] Address: [address] [place] [address] Performed By: #### 2 986-8, 53168-5, 2532-0, 2276-4 ####[facility] LABORATORYCLIA [id number] [place] [address] [place] LDH SerPl-cCncon 09-29-2024 LDH [Catalytic activity/Vol] 136 U/L Normal 135-225 [facility] Comment on above: Order Comment: Speci lindsey Type: BLOOD SPECIMENOrdering Facility: [facility] Address: [address] [place] [address] Performed By: #### 2 986-8, 78706-2, 2532-0, 2276-4 ####[facility] LABORATORYCLIA [id number] [place] [address] [facility] [place] Methylmalonate SerPl-sCncon 09-29-2024 Methylmalonate [Moles/Vol] 0.08 umol/L Normal <=0.40 [facility] Comment on above: Order Comment: [facility] Type: BLOOD SPECIMENOrdering Facility: [facility] Address: [address] [place] [address] Result Comment: This test was developed, and its performance characteristics determined by the [facility] Department of Pathology and Laboratory Medicine. It has not been cleared or approved by the FDA. The [facility] Department of Pathology and Laboratory Medicine is regulated under CLIA as qualified to perform high-complexity testing. This test is used for clinical purposes. It should not be regarded as investigational or for research. Performed By: #### 1 3964-2 ####[facility] LABCLIA [id number] [place] [address] [place] Retics #on 09-29-2024 Reticulocytes (Bld) [#/Vol] 0.55016 10*3/uL Normal 0.018-0.100 [facility] Comment on above: Order Comment: Speci lindsey Type: BLOOD SPECIMENOrdering Facility: [facility] Address: [address] [place] [address] Performed By: #### 1 4196-0 ####[facility] LABORATORYCLIA [id number] [place] [id number] [place] Reticulocytes (Bld) [#/Vol]o n 09-29-2024 Reticulocytes/100 RBC (Bld) 1.0 % Normal 0.4-2.0 [facility] Comment on above: Order Comment: Speci men Type: BLOOD SPECIMENOrdering Facility: [facility] Address: [address] [place], [place] [address] Performed By: #### 1 4196-0 ####[facility] LABORATORYCLIA [id number] [address] OF [place] TSH SerPl-aCncon 09-29-2024 TSH Qn 2.130 m[IU]/L Normal 0.270-4.200 [facility] Comment on above: Order Comment: Speci men Type: BLOOD SPECIMENOrdering Facility: [facility] Address: [address] [place] [address] Performed By: #### 2 4323-8, 3016-3 ####[facility] [place] LABCLIA [id number] [place] [id number] [facility] TYPE + SCREENon 09-29-2024 ABO B Normal [facility] Comment on above: Order Comment: Speci men Type: BLOOD SPECIMENOrdering Facility: [facility] Address: [address] [place] [address] Performed By: #### T SCR ####[facility] BLOOD BANKCLIA [id number] [address] Rh Nom (Bld) Positive Normal [facility] Comment on above: Order Comment: Speci men Type: BLOOD SPECIMENOrdering Facility: [facility] Address: [address] [place] [address] Performed By: #### T SCR ####[facility] BLOOD BANKCLIA [id number] [address] TYPE AND SCREEN EXPIRATION 10/02/2024 23:59 Normal [facility] Comment on above: Order Comment: Speci men Type: BLOOD SPECIMENOrdering Facility: [facility] Address: [address] [place] [address] Performed By: #### T SCR ####[facility] BLOOD BANKCLIA [id number] [address] OF [place] Testost SerPl-mCncon 025 Testosterone [Mass/Vol] 249 ng/dL Normal 193-824 [facility] Comment on above: Order Comment: Speci men Type: BLOOD SPECIMENOrdering Facility: [facility] Address: [address], [place] [address] Result Comment: A te stosterone level in the 193-320 ng/dL range with associated clinical symptoms is considered low and may indicate hypogonadism (from [facility] [phone]:123-135). Results >320 ng/dL are considered normal. Performed By: #### 2 986-8, 89109-0, 2532-0, 2276-4 ####[facility] LABORATORYCLIA [id number] [place], [place] [id number] [place] [address] OF [facility] CNOVSPon 09-23-2024 CNOVSP Visit (SP) Office (H EMAMN) -- JOSS OROPEZA ([id number]) 1945 M Date Time Provider Department 09/23/24 11:00 AM ANNIE FRANK During your visit today, we recorded the following information about you: Temperature Pulse Respiration Blood pressure 97.4 degrees 90/minute 20/minute 134/52 Weight Height 96.3 kg 1.75 m Annie Frank MD 09/23/2024 12:59 PM Signed Primary Hematology/Oncology: Dr Vicenta Noriega Hematology/Oncology Diagnosis: Myelodysplastic syndrome (MDS), diagnosed ~April 2022 after presentation with anemia Treatment history for MDS: - Luspatercept dose increased to 1.75 mg/kg, Day 1 03/08/23, discontinued 06/30/24 for lack of response - Imetelstat (Rytelo) Day 1 01/10/24, discontinued 06/30/24 for lack of response. 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 Oropeza is a 79 year old male who presented to ER on 05/22/22 for anemia after this was noted by primary care. Patient states he was 6.7 at PCP office and 6.0 at [facility]. No overt GI bleeding, no blood or darker stool, no weight loss, no abdominal pain, no issues swallowing, and no issues with constipation or diarrhea. Reports several colonoscopies in the past with Dr. Hernandez in [place], last done July 2021 that had one polyp removed. Remote EGD. No NSAID use besides ASA 81 mg, no blood thinners, no smoking, and only rare alcohol use. Taking insulin daily. Just had it doubled to 25 units per day. Has made some progress getting to <200. - 03/11/24 glucose level of 219. - 03/06/24 glucose level 216. - 03/05/24 glucose level 255. At this time - Very fatigued, able to get around the home - Has trouble getting around also because of back pain (recently injured his back) - Sleeps through the night in an electric lift chair, sleeps lying flat, has to get up frequently to urinate - No PND - Not on oxygen - Appetite is good - No fevers - No drenching night sweats - No infections, no pneumonias, has not required antibiotics - No chemotherapy or radiation - Never smoked - Drinks ETOH only on occasions - No abdominal pains - No bleeding from the gums or nose - No blood in the stool - No melena PAST MEDICAL HISTORY Diagnosis Date Cancer of [...] NEGATIVE TONSILLECTOMY PRIMARY/SECONDARY Tonsillectomy Current Outpatient Medications Medication Sig oxycodone HCl/acetaminophen (PERCOCET ORAL) Take by mouth. (Patient not taking: Reported on 07/15/2024) tramadol HCl (ULTRAM ORAL) Take by mouth. (Patient not taking: Reported on 07/15/2024) polyethylene glycol 3350 17 gram packet Take 1 packet by mouth once daily. Dissolve dose in 4 - 8 ounces of liquid and take as directed. (Patient not taking: Reported on 07/15/2024) amLODIPine (NORVASC) 5 mg tablet Take 1 tablet by mouth once daily. (Patient not taking: Reported on 08/05/2024) aspirin 81 mg chewable tablet Take 81 [...] Use Topics Alcohol use: Yes Comment: social/rare (more content not included)... Normal [facility] CBC W Auto Differential pane l (Bld)on 09-22-2024 Basophils (Bld) [#/Vol] 10*3/uL Normal <0.11 [facility] Comment on above: Order Comment: Speci men Type: BLOOD SPECIMENOrdering Facility: [facility] Address: [address] [place] [address] Performed By: #### 5 7021-8 ####[facility] [place] LABCLIA [id number] [facility] [place] [address] [place] Basophils/100 WBC (Bld) 0.4 % Normal [facility] Comment on above: Order Comment: Speci men Type: BLOOD SPECIMENOrdering Facility: [facility] Address: [address] [place] [address] Performed By: #### 5 7021-8 ####[facility] [place] LABCLIA [id number] [facility] [place] [address] [facility] Differential cell count method Nom (Bld) Auto Normal [facility] Comment on above: Order Comment: Speci men Type: BLOOD SPECIMENOrdering Facility: [facility] Address: [address] [place] [address] Performed By: #### 5 7021-8 ####[facility] [place] LABCLIA [id number] [facility] [place] [address] [place] Eosinophils (Bld) [#/Vol] 10*3/uL Normal <0.46 [facility] Comment on above: Order Comment: Speci men Type: BLOOD SPECIMENOrdering Facility: [facility] Address: [address] [place] [address] Performed By: #### 5 7021-8 ####[facility] [place] LABCLIA [id number] [facility] [place] [address] [place] Eosinophils/100 WBC (Bld) 0.4 % Normal [facility] Comment on above: Order Comment: Speci men Type: BLOOD SPECIMENOrdering Facility: [facility] Address: [address] [place] [address] Performed By: #### 5 7021-8 ####[facility] [place] LABCLIA [id number] [facility] [place] [address] [place] Erythrocyte distribution width (RBC) [Ratio] 14.6 % Normal 11.5-15.0 [facility] Comment on above: Order Comment: Speci men Type: BLOOD SPECIMENOrdering Facility: [facility] Address: [address] [place] [address] Performed By: #### 5 7021-8 ####[facility] [place] LABCLIA [id number] [place] [address] [place] Hematocrit (Bld) [Volume fraction] 17.7 % Low 39.0-51.0 [facility] Comment on above: Order Comment: Speci men Type: BLOOD SPECIMENOrdering Facility: [facility] Address: [address] [place] [address] Performed By: #### 5 7021-8 ####[facility] [place] LABCLIA [id number] [place] [address] [place] Hemoglobin (Bld) [Mass/Vol] 6.2 g/dL Low 13.0-17.0 [facility] Comment on above: Order Comment: Speci men Type: BLOOD SPECIMENOrdering Facility: [facility] Address: [address] [place] [address] Performed By: #### 5 7021-8 ####[facility] [place] LABCLIA [id number] [place] [address] [place] Immature granulocytes (Bld) [#/Vol] 10*3/uL Normal <0.10 [facility] Comment on above: Order Comment: Speci men Type: BLOOD SPECIMENOrdering Facility: [facility] Address: [address] [place] [address] Performed By: #### 5 7021-8 ####[facility] [place] LABCLIA [id number] [place] [address] [place] Immature granulocytes/100 WBC (Bld) 0.2 % Normal [facility] Comment on above: Order Comment: Speci men Type: BLOOD SPECIMENOrdering Facility: [facility] Address: [address] [place] [address] Performed By: #### 5 7021-8 ####[facility] [place] LABCLIA [id number] [place] [address] [facility] [place] Lymphocytes (Bld) [#/Vol] 2.48 10*3/uL Normal 1.00-4.00 [facility] Comment on above: Order Comment: Speci men Type: BLOOD SPECIMENOrdering Facility: [facility] Address: [address] [place] [address] Performed By: #### 5 7021-8 ####[facility] LABCLIA [id number] [place] [id number] [facility] Lymphocytes/100 WBC (Bld) 45.3 % Normal [facility] Comment on above: Order Comment: Speci men Type: BLOOD SPECIMENOrdering Facility: [facility] Address: [address] [place] [address] Performed By: #### 5 7021-8 ####[facility] LABCLIA [id number] [address] STATES [facility] MCH (RBC) [Entitic mass] 31.3 pg Normal 26.0-34.0 [facility] Comment on above: Order Comment: Speci men Type: BLOOD SPECIMENOrdering Facility: [facility] Address: [address] [place] [address] Performed By: #### 5 7021-8 ####[facility] LABCLIA [id number] [place] [id number] [place] MCHC (RBC) [Mass/Vol] 35.0 g/dL Normal 30.5-36.0 [facility] Comment on above: Order Comment: Speci men Type: BLOOD SPECIMENOrdering Facility: [facility] Address: [address] [place] [address] Performed By: #### 5 7021-8 ####[facility] [place] LABCLIA [id number] [address] MCV (RBC) [Entitic vol] 89.4 fL Normal 80.0-100.0 [facility] Comment on above: Order Comment: Speci men Type: BLOOD SPECIMENOrdering Facility: [facility] Address: [address] [place] [address] Performed By: #### 5 7021-8 ####[facility] [place] LABCLIA [id number] [place] [address] [place] Monocytes (Bld) [#/Vol] 0.52 10*3/uL Normal <0.87 [facility] Comment on above: Order Comment: Speci men Type: BLOOD SPECIMENOrdering Facility: [facility] Address: [address] [place] [address] Performed By: #### 5 7021-8 ####[facility] [place] LABCLIA [id number] [place] [address] [place] Monocytes/100 WBC (Bld) 9.5 % Normal [facility] Comment on above: Order Comment: Speci men Type: BLOOD SPECIMENOrdering Facility: [facility] Address: [address] [place] [address] Performed By: #### 5 7021-8 ####[facility] [place] LABCLIA [id number] [place] [address] [place] Neutrophils (Bld) [#/Vol] 2.43 10*3/uL Normal 1.45-7.50 [facility] Comment on above: Order Comment: Speci men Type: BLOOD SPECIMENOrdering Facility: [facility] Address: [address] [place] [address] Performed By: #### 5 7021-8 ####[facility] [place] LABCLIA [id number] [place] [address] [place] Neutrophils/100 WBC (Bld) 44.2 % Normal [facility] Comment on above: Order Comment: Speci men Type: BLOOD SPECIMENOrdering Facility: [facility] Address: [address] [place] [address] Performed By: #### 5 7021-8 ####[facility] [place] LABCLIA [id number] [place] [address] [place] Nucleated RBC (Bld) [#/Vol] Normal [facility] Comment on above: Order Comment: Speci men Type: BLOOD SPECIMENOrdering Facility: [facility] Address: [address] [place] [address] Performed By: #### 5 7021-8 ####[facility] [place] LABCLIA [id number] [place] [address] [place] Nucleated RBC/100 WBC (Bld) [Ratio] Normal [facility] Comment on above: Order Comment: Speci men Type: BLOOD SPECIMENOrdering Facility: [facility] Address: [address] [place] [address] Performed By: #### 5 7021-8 ####[facility] [place] LABCLIA [id number] [place] [address] [place] Platelet mean volume (Bld) [Entitic vol] 10.6 fL Normal 9.0-12.7 [facility] Comment on above: Order Comment: Speci men Type: BLOOD SPECIMENOrdering Facility: [facility] Address: [address] [place] [address] Performed By: #### 5 7021-8 ####[facility] [place] LABCLIA [id number] [facility] [place] [address] [place] Platelets (Bld) [#/Vol] 102 10*3/uL Low 150-400 [facility] Comment on above: Order Comment: Speci men Type: BLOOD SPECIMENOrdering Facility: [facility] Address: [address] [place] [address] Performed By: #### 5 7021-8 ####[facility] [place] LABCLIA [id number] [place] [address] [place] RBC (Bld) [#/Vol] 1.98 10*6/uL Low 4.20-6.00 [facility] Comment on above: Order Comment: Speci men Type: BLOOD SPECIMENOrdering Facility: [facility] Address: [address] [place] [address] Performed By: #### 5 7021-8 ####[facility] [place] LABCLIA [id number] [address] [place] WBC (Bld) [#/Vol] 5.48 10*3/uL Normal 3.70-11.00 [facility] Comment on above: Order Comment: Speci men Type: BLOOD SPECIMENOrdering Facility: [facility] Address: [address] [place] [address] Performed By: #### 5 7021-8 ####[facility] [place] LABCLIA [id number] [address] TYPE + SCREENon 09-22-2024 ABO B Normal [facility] Comment on above: Order Comment: Speci men Type: BLOOD SPECIMENOrdering Facility: [facility] Address: [address] [place] [address] Performed By: #### T SCR ####[facility] BLOOD BANKCLIA [id number] [address] Rh Nom (Bld) Positive Normal [facility] Comment on above: Order Comment: Speci men Type: BLOOD SPECIMENOrdering Facility: [facility] Address: [address] [place] [address] Performed By: #### T SCR ####[facility] BLOOD BANKCLIA [id number] [address] TYPE AND SCREEN EXPIRATION 09/25/2024 23:59 Normal [facility] Comment on above: Order Comment: Speci men Type: BLOOD SPECIMENOrdering Facility: [facility] Address: [address] [place] [address] Performed By: #### T SCR ####[facility] BLOOD BANKCLIA [id number] [address] CBC W Auto Differential pane l (Bld)on 09-15-2024 Anisocytosis Ql (Bld) Present Normal [facility] Comment on above: Order Comment: Speci men Type: BLOOD SPECIMENOrdering Facility: [facility] Address: [address] [place] [address] Performed By: #### 5 7021-8 ####[facility] [place] LABCLIA [id number] [place] [address] [place] Basophils (Bld) [#/Vol] 0.03 10*3/uL Normal <0.11 [facility] Comment on above: Order Comment: Speci men Type: BLOOD SPECIMENOrdering Facility: [facility] Address: [address] [place] [address] Performed By: #### 5 7021-8 ####[facility] [place] LABCLIA [id number] [place] [address] [place] Basophils/100 WBC (Bld) 0.5 % Normal [facility] Comment on above: Order Comment: Speci men Type: BLOOD SPECIMENOrdering Facility: [facility] Address: [address] [place] [address] Performed By: #### 5 7021-8 ####[facility] [place] LABCLIA [id number] [facility] [place] [address] [facility] Differential cell count method Nom (Bld) Auto Normal [facility] Comment on above: Order Comment: Speci men Type: BLOOD SPECIMENOrdering Facility: [facility] Address: [address] [place] [address] Performed By: #### 5 7021-8 ####[facility] [place] LABCLIA [id number] [place] [address] [place] Eosinophils (Bld) [#/Vol] 10*3/uL Normal <0.46 [facility] Comment on above: Order Comment: Speci men Type: BLOOD SPECIMENOrdering Facility: [facility] Address: [address] [place] [address] Performed By: #### 5 7021-8 ####[facility] [place] LABCLIA [id number] [facility] [place] [address] [facility] [place] Eosinophils/100 WBC (Bld) 0.2 % Normal [facility] Comment on above: Order Comment: Speci men Type: BLOOD SPECIMENOrdering Facility: [facility] Address: [address] [place] [address] Performed By: #### 5 7021-8 ####[facility] [place] LABCLIA [id number] [place] [address] [place] Erythrocyte distribution width (RBC) [Ratio] 15.1 % High 11.5-15.0 [facility] Comment on above: Order Comment: Speci men Type: BLOOD SPECIMENOrdering Facility: [facility] Address: [address] [place] [address] Performed By: #### 5 7021-8 ####[facility] LABCLIA [id number] [place] [address] [facility] [place] Hematocrit (Bld) [Volume fraction] 21.3 % Low 39.0-51.0 [facility] Comment on above: Order Comment: Speci men Type: BLOOD SPECIMENOrdering Facility: [facility] Address: [address] [place] [address] Performed By: #### 5 7021-8 ####[facility] LABCLIA [id number] [place] [address] [place] Hemoglobin (Bld) [Mass/Vol] 7.1 g/dL Low 13.0-17.0 [facility] Comment on above: Order Comment: Speci men Type: BLOOD SPECIMENOrdering Facility: [facility] Address: [address] [place] [address] Performed By: #### 5 7021-8 ####[facility] [place] LABCLIA [id number] [place] [address] [place] Immature granulocytes (Bld) [#/Vol] 10*3/uL Normal <0.10 [facility] Comment on above: Order Comment: Speci men Type: BLOOD SPECIMENOrdering Facility: [facility] Address: [address] [place] [address] Performed By: #### 5 7021-8 ####[facility] LABCLIA [id number] [place] [address] [facility] Immature granulocytes/100 WBC (Bld) 0.2 % Normal [facility] Comment on above: Order Comment: Speci men Type: BLOOD SPECIMENOrdering Facility: [facility] Address: [address] [place] [address] Performed By: #### 5 7021-8 ####[facility] [place] LABCLIA [id number] [place] [address] [place] Lymphocytes (Bld) [#/Vol] 2.19 10*3/uL Normal 1.00-4.00 [facility] Comment on above: Order Comment: Speci men Type: BLOOD SPECIMENOrdering Facility: [facility] Address: [address] [place] [address] Performed By: #### 5 7021-8 ####[facility] [place] LABCLIA [id number] [place] [address] [place] Lymphocytes/100 WBC (Bld) 36.2 % Normal [facility] Comment on above: Order Comment: Speci men Type: BLOOD SPECIMENOrdering Facility: [facility] Address: [address] [place] [address] Performed By: #### 5 7021-8 ####[facility] [place] LABCLIA [id number] [place] [address] [place] MCH (RBC) [Entitic mass] 30.3 pg Normal 26.0-34.0 [facility] Comment on above: Order Comment: Speci men Type: BLOOD SPECIMENOrdering Facility: [facility] Address: [address] [place] [address] Performed By: #### 5 7021-8 ####[facility] [place] LABCLIA [id number] [place] [address] [place] MCHC (RBC) [Mass/Vol] 33.3 g/dL Normal 30.5-36.0 [facility] Comment on above: Order Comment: Speci men Type: BLOOD SPECIMENOrdering Facility: [facility] Address: [address] [place] [address] Performed By: #### 5 7021-8 ####[facility] [place] LABCLIA [id number] [place] [address] [place] MCV (RBC) [Entitic vol] 91.0 fL Normal 80.0-100.0 [facility] Comment on above: Order Comment: Speci men Type: BLOOD SPECIMENOrdering Facility: [facility] Address: [address] [place] [address] Performed By: #### 5 7021-8 ####[facility] [place] LABCLIA [id number] [place] [address] [place] Monocytes (Bld) [#/Vol] 0.41 10*3/uL Normal <0.87 [facility] Comment on above: Order Comment: Speci men Type: BLOOD SPECIMENOrdering Facility: [facility] Address: [address] [place] [address] Performed By: #### 5 7021-8 ####[facility] [place] LABCLIA [id number] [place] [address] [facility] Monocytes/100 WBC (Bld) 6.8 % Normal [facility] Comment on above: Order Comment: Speci men Type: BLOOD SPECIMENOrdering Facility: [facility] Address: [address] [place] [address] Performed By: #### 5 7021-8 ####[facility] [place] LABCLIA [id number] [place] [address] [place] Neutrophils (Bld) [#/Vol] 3.40 10*3/uL Normal 1.45-7.50 [facility] Comment on above: Order Comment: Speci men Type: BLOOD SPECIMENOrdering Facility: [facility] Address: [address] [place] [address] Performed By: #### 5 7021-8 ####[facility] [place] LABCLIA [id number] [place] [address] [place] Neutrophils/100 WBC (Bld) 56.1 % Normal [facility] Comment on above: Order Comment: Speci men Type: BLOOD SPECIMENOrdering Facility: [facility] Address: [address] [place] [address] Performed By: #### 5 7021-8 ####[facility] [place] LABCLIA [id number] [place] [address] [place] Nucleated RBC (Bld) [#/Vol] Normal [facility] Comment on above: Order Comment: Speci men Type: BLOOD SPECIMENOrdering Facility: [facility] Address: [address] [place] [address] Performed By: #### 5 7021-8 ####[facility] [place] LABCLIA [id number] [place] [facility] [place] [address] [facility] [place] Nucleated RBC/100 WBC (Bld) [Ratio] Normal [facility] Comment on above: Order Comment: Speci men Type: BLOOD SPECIMENOrdering Facility: [facility] Address: [address] [place] [address] Performed By: #### 5 7021-8 ####[facility] [place] LABCLIA [id number] [place] [address] [place] Platelet mean volume (Bld) [Entitic vol] 11.2 fL Normal 9.0-12.7 [facility] Comment on above: Order Comment: Speci men Type: BLOOD SPECIMENOrdering Facility: [facility] Address: [address] [place] [address] Performed By: #### 5 7021-8 ####[facility] [place] LABCLIA [id number] [facility] [place] [address] [place] Platelets (Bld) [#/Vol] 97 10*3/uL Low 150-400 [facility] Comment on above: Order Comment: Speci men Type: BLOOD SPECIMENOrdering Facility: [facility] Address: [address] [place] [address] Performed By: #### 5 7021-8 ####[facility] [place] LABCLIA [id number] [place] [address] [place] Platelets Estimate (Bld) [#/Vol] Decreased Normal [facility] Comment on above: Order Comment: Speci men Type: BLOOD SPECIMENOrdering Facility: [facility] Address: [address] [place] [address] Result Comment: No C lot Detected Performed By: #### 5 7021-8 ####[facility] [place] LABCLIA [id number] [place] [address] [facility] RBC (Bld) [#/Vol] 2.34 10*6/uL Low 4.20-6.00 [facility] Comment on above: Order Comment: Speci men Type: BLOOD SPECIMENOrdering Facility: [facility] Address: [address] [place] [address] Performed By: #### 5 7021-8 ####[facility] [place] LABCLIA [id number] [place] [address] [facility] RED CELL MORPH Reviewed: see result s of individual morphologies Normal [facility] Comment on above: Order Comment: Speci men Type: BLOOD SPECIMENOrdering Facility: [facility] Address: [address] [place] [address] Performed By: #### 5 7021-8 ####[facility] LABCLIA [id number] [place] [address] [facility] WBC (Bld) [#/Vol] 6.05 10*3/uL Normal 3.70-11.00 [facility] Comment on above: Order Comment: Speci men Type: BLOOD SPECIMENOrdering Facility: [facility] Address: [address] [place] [address] Performed By: #### 5 7021-8 ####[facility] [place] LABCLIA [id number] [place] [address] [facility] TYPE + SCREENon 09-15-2024 ABO B Normal [facility] Comment on above: Order Comment: Speci men Type: BLOOD SPECIMENOrdering Facility: [facility] Address: [address] [place] [address] Performed By: #### T SCR ####[facility] BLOOD BANKCLIA [id number] [place] [id number] [facility] Rh Nom (Bld) Positive Normal [facility] Comment on above: Order Comment: Speci men Type: BLOOD SPECIMENOrdering Facility: [facility] Address: [address] [place] [address] Performed By: #### T SCR ####[facility] BLOOD BANKCLIA [id number] [place] [id number] [place] [facility] TYPE AND SCREEN EXPIRATION 09/18/2024 23:59 Normal [facility] Comment on above: Order Comment: Speci men Type: BLOOD SPECIMENOrdering Facility: [facility] Address: [address] [place] [address] Performed By: #### T SCR ####[facility] BLOOD BANKCLIA [id number] [place] [id number] [facility] CNOVSPon 09-09-2024 CNOVSP Normal [facility] CBC W Auto Differential pane l (Bld)on 09-08-2024 Anisocytosis Ql (Bld) Present Normal [facility] Comment on above: Order Comment: Speci men Type: BLOOD SPECIMENOrdering Facility: [facility] Address: [address] [place] [address] Performed By: #### 5 7021-8 ####[facility] [place] LABCLIA [id number] [place] [address] [place] Basophils (Bld) [#/Vol] 10*3/uL Normal <0.11 [facility] Comment on above: Order Comment: Speci men Type: BLOOD SPECIMENOrdering Facility: [facility] Address: [address] [place] [address] Performed By: #### 5 7021-8 ####[facility] [place] LABCLIA [id number] [place] [address] [facility] Basophils/100 WBC (Bld) 0.3 % Normal [facility] Comment on above: Order Comment: Speci men Type: BLOOD SPECIMENOrdering Facility: [facility] Address: [address] [place] [address] Performed By: #### 5 7021-8 ####[facility] [place] LABCLIA [id number] [place] [address] [place] Dacrocytes LM Ql (Bld) Few Normal [facility] Comment on above: Order Comment: Speci men Type: BLOOD SPECIMENOrdering Facility: [facility] Address: [address] [place] [address] Performed By: #### 5 7021-8 ####[facility] [place] LABCLIA [id number] [place] [address] [facility] [place] Differential cell count method Nom (Bld) Auto Normal [facility] Comment on above: Order Comment: Speci men Type: BLOOD SPECIMENOrdering Facility: [facility] Address: [address] [place] [address] Performed By: #### 5 7021-8 ####[facility] [place] LABCLIA [id number] [place] [address] [place] Eosinophils (Bld) [#/Vol] 10*3/uL Normal <0.46 [facility] Comment on above: Order Comment: Speci men Type: BLOOD SPECIMENOrdering Facility: [facility] Address: [address] [place] [address] Performed By: #### 5 7021-8 ####[facility] [place] LABCLIA [id number] [place] [address] [facility] [place] Eosinophils/100 WBC (Bld) 0.3 % Normal [facility] Comment on above: Order Comment: Speci men Type: BLOOD SPECIMENOrdering Facility: [facility] Address: [address] [place] [address] Performed By: #### 5 7021-8 ####[facility] [place] LABCLIA [id number] [place] [address] [place] Erythrocyte distribution width (RBC) [Ratio] 15.5 % High 11.5-15.0 [facility] Comment on above: Order Comment: Speci men Type: BLOOD SPECIMENOrdering Facility: [facility] Address: [address] [place] [address] Performed By: #### 5 7021-8 ####[facility] [place] LABCLIA [id number] [place] [address] [facility] Hematocrit (Bld) [Volume fraction] 20.1 % Low 39.0-51.0 [facility] Comment on above: Order Comment: Speci men Type: BLOOD SPECIMENOrdering Facility: [facility] Address: [address] [place] [address] Performed By: #### 5 7021-8 ####[facility] [place] LABCLIA [id number] [place] [address] [place] Hemoglobin (Bld) [Mass/Vol] 6.7 g/dL Low 13.0-17.0 [facility] Comment on above: Order Comment: Speci men Type: BLOOD SPECIMENOrdering Facility: [facility] Address: [address] [place] [address] Performed By: #### 5 7021-8 ####[facility] [place] LABCLIA [id number] [place] [address] [facility] Immature granulocytes (Bld) [#/Vol] 10*3/uL Normal <0.10 [facility] Comment on above: Order Comment: Speci men Type: BLOOD SPECIMENOrdering Facility: [facility] Address: [address] [place] [address] Performed By: #### 5 7021-8 ####[facility] [place] LABCLIA [id number] [place] [address] [facility] [place] Immature granulocytes/100 WBC (Bld) 0.3 % Normal [facility] Comment on above: Order Comment: Speci men Type: BLOOD SPECIMENOrdering Facility: [facility] Address: [address] [place] [address] Performed By: #### 5 7021-8 ####[facility] [place] LABCLIA [id number] [place] [address] [facility] [place] Lymphocytes (Bld) [#/Vol] 2.26 10*3/uL Normal 1.00-4.00 [facility] Comment on above: Order Comment: Speci men Type: BLOOD SPECIMENOrdering Facility: [facility] Address: [address] [place] [address] Performed By: #### 5 7021-8 ####[facility] [place] LABCLIA [id number] [place] [address] [facility] Lymphocytes/100 WBC (Bld) 39.2 % Normal [facility] Comment on above: Order Comment: Speci men Type: BLOOD SPECIMENOrdering Facility: [facility] Address: [address] [place] [address] Performed By: #### 5 7021-8 ####[facility] LABCLIA [id number] [place] [address] [place] MCH (RBC) [Entitic mass] 29.9 pg Normal 26.0-34.0 [facility] Comment on above: Order Comment: Speci men Type: BLOOD SPECIMENOrdering Facility: [facility] Address: [address] [place] [address] Performed By: #### 5 7021-8 ####[facility] LABCLIA [id number] [place] [address] [place] MCHC (RBC) [Mass/Vol] 33.3 g/dL Normal 30.5-36.0 [facility] Comment on above: Order Comment: Speci men Type: BLOOD SPECIMENOrdering Facility: [facility] Address: [address] [place] [address] Performed By: #### 5 7021-8 ####[facility] [place] LABCLIA [id number] [place] [address] [place] MCV (RBC) [Entitic vol] 89.7 fL Normal 80.0-100.0 [facility] Comment on above: Order Comment: Speci men Type: BLOOD SPECIMENOrdering Facility: [facility] Address: [address] [place] [address] Performed By: #### 5 7021-8 ####[facility] [place] LABCLIA [id number] [place] [address] [place] Monocytes (Bld) [#/Vol] 0.41 10*3/uL Normal <0.87 [facility] Comment on above: Order Comment: Speci men Type: BLOOD SPECIMENOrdering Facility: [facility] Address: [address] [place] [address] Performed By: #### 5 7021-8 ####[facility] [place] LABCLIA [id number] [place] [facility] [place] [address] [place] Monocytes/100 WBC (Bld) 7.1 % Normal [facility] Comment on above: Order Comment: Speci men Type: BLOOD SPECIMENOrdering Facility: [facility] Address: [address] [place] [address] Performed By: #### 5 7021-8 ####[facility] [place] LABCLIA [id number] [facility] [place] [address] [place] Neutrophils (Bld) [#/Vol] 3.03 10*3/uL Normal 1.45-7.50 [facility] Comment on above: Order Comment: Speci men Type: BLOOD SPECIMENOrdering Facility: [facility] Address: [address] [place] [address] Performed By: #### 5 7021-8 ####[facility] [place] LABCLIA [id number] [facility] [place] [address] [place] Neutrophils/100 WBC (Bld) 52.8 % Normal [facility] Comment on above: Order Comment: Speci men Type: BLOOD SPECIMENOrdering Facility: [facility] Address: [address] [place] [address] Performed By: #### 5 7021-8 ####[facility] [place] LABCLIA [id number] [facility] [place] [address] [place] Nucleated RBC (Bld) [#/Vol] Normal [facility] Comment on above: Order Comment: Speci men Type: BLOOD SPECIMENOrdering Facility: [facility] Address: [address] [place] [address] Performed By: #### 5 7021-8 ####[facility] [place] LABCLIA [id number] [facility] [place] [address] [facility] Nucleated RBC/100 WBC (Bld) [Ratio] Normal [facility] Comment on above: Order Comment: Speci men Type: BLOOD SPECIMENOrdering Facility: [facility] Address: [address] [place] [address] Performed By: #### 5 7021-8 ####[facility] [place] LABCLIA [id number] [facility] [place] [address] [facility] Platelet mean volume (Bld) [Entitic vol] 10.6 fL Normal 9.0-12.7 [facility] Comment on above: Order Comment: Speci men Type: BLOOD SPECIMENOrdering Facility: [facility] Address: [address] [place] [address] Performed By: #### 5 7021-8 ####[facility] [place] LABCLIA [id number] [facility] [place] [address] [facility] Platelets (Bld) [#/Vol] 92 10*3/uL Low 150-400 [facility] Comment on above: Order Comment: Speci men Type: BLOOD SPECIMENOrdering Facility: [facility] Address: [address] [place] [address] Result Comment: No c lot detected. Performed By: #### 5 7021-8 ####[facility] [place] LABCLIA [id number] [place] [address] [facility] Platelets Estimate (Bld) [#/Vol] Decreased Normal [facility] Comment on above: Order Comment: Speci men Type: BLOOD SPECIMENOrdering Facility: [facility] Address: [address] [place] [address] Performed By: #### 5 7021-8 ####[facility] [place] LABCLIA [id number] [place] [address] [facility] [place] RBC (Bld) [#/Vol] 2.24 10*6/uL Low 4.20-6.00 [facility] Comment on above: Order Comment: Speci men Type: BLOOD SPECIMENOrdering Facility: [facility] Address: [address] [place] [address] Performed By: #### 5 7021-8 ####[facility] [place] LABCLIA [id number] [place] [address] [facility] [place] Reviewed: see result s of individual morphologies Normal [facility] Comment on above: Order Comment: Speci men Type: BLOOD SPECIMENOrdering Facility: [facility] Address: [address] [place] [address] Performed By: #### 5 7021-8 ####[facility] LABCLIA [id number] [place] [address] [place] WBC (Bld) [#/Vol] 5.76 10*3/uL Normal 3.70-11.00 [facility] Comment on above: Order Comment: Speci men Type: BLOOD SPECIMENOrdering Facility: [facility] Address: [address] [place] [address] Performed By: #### 5 7021-8 ####[facility] LABCLIA [id number] [place] [id number] [facility] TYPE + SCREENon 09-08-2024 ABO B Normal [facility] Comment on above: Order Comment: Speci men Type: BLOOD SPECIMENOrdering Facility: [facility] Address: [address] [place] [address] Performed By: #### T SCR ####[facility] BLOOD BANKCLIA [id number] [address] Rh Nom (Bld) Positive Normal [facility] Comment on above: Order Comment: Speci men Type: BLOOD SPECIMENOrdering Facility: [facility] Address: [address] [place] [address] Performed By: #### T SCR ####[facility] BLOOD BANKCLIA [id number] [address] TYPE AND SCREEN EXPIRATION 09/11/2024 23:59 Normal [facility] Comment on above: Order Comment: Speci men Type: BLOOD SPECIMENOrdering Facility: [facility] Address: [address] [place] [address] Performed By: #### T SCR ####[facility] BLOOD BANKCLIA [id number] [address] OF [facility] CBC W Auto Differential pane l (Bld)on 09-01-2024 Basophils (Bld) [#/Vol] 10*3/uL Normal <0.11 [facility] Comment on above: Order Comment: Speci men Type: BLOOD SPECIMENOrdering Facility: [facility] Address: [address] [place] [address] Performed By: #### 5 7021-8 ####[facility] [place] LABCLIA [id number] [place] [address] [place] Basophils/100 WBC (Bld) 0.4 % Normal [facility] Comment on above: Order Comment: Speci men Type: BLOOD SPECIMENOrdering Facility: [facility] Address: [address] [place] [address] Performed By: #### 5 7021-8 ####[facility] LABCLIA [id number] [place] [address] [facility] Differential cell count method Nom (Bld) Auto Normal [facility] Comment on above: Order Comment: Speci men Type: BLOOD SPECIMENOrdering Facility: [facility] Address: [address] [place] [address] Performed By: #### 5 7021-8 ####[facility] [place] LABCLIA [id number] [place] [address] [place] Eosinophils (Bld) [#/Vol] 10*3/uL Normal <0.46 [facility] Comment on above: Order Comment: Speci men Type: BLOOD SPECIMENOrdering Facility: [facility] Address: [address] [place] [address] Performed By: #### 5 7021-8 ####[facility] [place] LABCLIA [id number] [facility] [place] [address] [place] Eosinophils/100 WBC (Bld) 0.2 % Normal [facility] Comment on above: Order Comment: Speci men Type: BLOOD SPECIMENOrdering Facility: [facility] Address: [address] [place] [address] Performed By: #### 5 7021-8 ####[facility] [place] LABCLIA [id number] [place] [address] [place] Erythrocyte distribution width (RBC) [Ratio] 16.2 % High 11.5-15.0 [facility] Comment on above: Order Comment: Speci men Type: BLOOD SPECIMENOrdering Facility: [facility] Address: [address] [place] [address] Performed By: #### 5 7021-8 ####[facility] LABCLIA [id number] [place] [address] [facility] Hematocrit (Bld) [Volume fraction] 19.5 % Low 39.0-51.0 [facility] Comment on above: Order Comment: Speci men Type: BLOOD SPECIMENOrdering Facility: [facility] Address: [address] [place] [address] Performed By: #### 5 7021-8 ####[facility] LABCLIA [id number] [facility] [place] [address] [place] Hemoglobin (Bld) [Mass/Vol] 6.6 g/dL Low 13.0-17.0 [facility] Comment on above: Order Comment: Speci men Type: BLOOD SPECIMENOrdering Facility: [facility] Address: [address] [place] [address] Performed By: #### 5 7021-8 ####[facility] LABCLIA [id number] [facility] [place] [address] [place] Immature granulocytes (Bld) [#/Vol] 10*3/uL Normal <0.10 [facility] [facility] Comment on above: Order Comment: Speci men Type: BLOOD SPECIMENOrdering Facility: [facility] Address: [address] [place] [address] Performed By: #### 5 7021-8 ####[facility] [place] LABCLIA [id number] [place] [address] [place] Immature granulocytes/100 WBC (Bld) 0.0 % Normal [facility] Comment on above: Order Comment: Speci men Type: BLOOD SPECIMENOrdering Facility: [facility] Address: [address] [place] [address] Performed By: #### 5 7021-8 ####[facility] [place] LABCLIA [id number] [place] [address] [place] Lymphocytes (Bld) [#/Vol] 1.88 10*3/uL Normal 1.00-4.00 [facility] Comment on above: Order Comment: Speci men Type: BLOOD SPECIMENOrdering Facility: [facility] Address: [address] [place] [address] Performed By: #### 5 7021-8 ####[facility] [place] LABCLIA [id number] [place] [address] [place] [facility] Lymphocytes/100 WBC (Bld) 35.7 % Normal [facility] Comment on above: Order Comment: Speci men Type: BLOOD SPECIMENOrdering Facility: [facility] Address: [address] [place] [address] Performed By: #### 5 7021-8 ####[facility] LABCLIA [id number] [place] [address] [place] MCH (RBC) [Entitic mass] 30.1 pg Normal 26.0-34.0 [facility] Comment on above: Order Comment: Speci men Type: BLOOD SPECIMENOrdering Facility: [facility] Address: [address] [place] [address] Performed By: #### 5 7021-8 ####[facility] LABCLIA [id number] [place] [address] [place] MCHC (RBC) [Mass/Vol] 33.8 g/dL Normal 30.5-36.0 [facility] Comment on above: Order Comment: Speci men Type: BLOOD SPECIMENOrdering Facility: [facility] Address: [address] [place] [address] Performed By: #### 5 7021-8 ####[facility] [place] LABCLIA [id number] [place] [address] [facility] MCV (RBC) [Entitic vol] 89.0 fL Normal 80.0-100.0 [facility] Comment on above: Order Comment: Speci men Type: BLOOD SPECIMENOrdering Facility: [facility] Address: [address] [place] [address] Performed By: #### 5 7021-8 ####[facility] LABCLIA [id number] [place] [address] [place] Monocytes (Bld) [#/Vol] 0.46 10*3/uL Normal <0.87 [facility] Comment on above: Order Comment: Speci men Type: BLOOD SPECIMENOrdering Facility: [facility] Address: [address] [place] [address] Performed By: #### 5 7021-8 ####[facility] LABCLIA [id number] [place] [address] [facility] [place] Monocytes/100 WBC (Bld) 8.7 % Normal [facility] Comment on above: Order Comment: Speci men Type: BLOOD SPECIMENOrdering Facility: [facility] Address: [address] [place] [address] Performed By: #### 5 7021-8 ####[facility] LABCLIA [id number] [place] [address] [place] Neutrophils (Bld) [#/Vol] 2.90 10*3/uL Normal 1.45-7.50 [facility] Comment on above: Order Comment: Speci men Type: BLOOD SPECIMENOrdering Facility: [facility] Address: [address] [place] [address] Performed By: #### 5 7021-8 ####[facility] LABCLIA [id number] [place] [address] [place] Neutrophils/100 WBC (Bld) 55.0 % Normal [facility] Comment on above: Order Comment: Speci men Type: BLOOD SPECIMENOrdering Facility: [facility] Address: [address] [place] [address] Performed By: #### 5 7021-8 ####[facility] LABCLIA [id number] [place] [address] [place] Nucleated RBC (Bld) [#/Vol] Normal [facility] Comment on above: Order Comment: Speci men Type: BLOOD SPECIMENOrdering Facility: [facility] Address: [address] [place] [address] Performed By: #### 5 7021-8 ####[facility] LABCLIA [id number] [place] [address] [place] Nucleated RBC/100 WBC (Bld) [Ratio] Normal [facility] Comment on above: Order Comment: Speci men Type: BLOOD SPECIMENOrdering Facility: [facility] Address: [address] [place] [address] Performed By: #### 5 7021-8 ####[facility] LABCLIA [id number] [place] [address] [place] Platelet mean volume (Bld) [Entitic vol] 10.7 fL Normal 9.0-12.7 [facility] Comment on above: Order Comment: Speci men Type: BLOOD SPECIMENOrdering Facility: [facility] Address: [address] [place] [address] Performed By: #### 5 7021-8 ####[facility] LABCLIA [id number] [place] [address] [place] Platelets (Bld) [#/Vol] 108 10*3/uL Low 150-400 [facility] Comment on above: Order Comment: Speci men Type: BLOOD SPECIMENOrdering Facility: [facility] Address: [address] [place] [address] Performed By: #### 5 7021-8 ####[facility] LABCLIA [id number] [place] [address] [facility] [place] RBC (Bld) [#/Vol] 2.19 10*6/uL Low 4.20-6.00 [facility] Comment on above: Order Comment: Speci men Type: BLOOD SPECIMENOrdering Facility: [facility] Address: [address] [place] [address] Performed By: #### 5 7021-8 ####[facility] LABCLIA [id number] [place], [place] [id number] [place] [address] OF [facility] WBC (Bld) [#/Vol] 5.27 10*3/uL Normal 3.70-11.00 [facility] Comment on above: Order Comment: Speci men Type: BLOOD SPECIMENOrdering Facility: [facility] Address: [address] [place] [address] Performed By: #### 5 7021-8 ####[facility] LABCLIA [id number] [address] TYPE + SCREENon 09-01-2024 ABO B Normal [facility] Comment on above: Order Comment: Speci men Type: BLOOD SPECIMENOrdering Facility: [facility] Address: [address] [place] [address] Performed By: #### T SCR ####[facility] BLOOD BANKCLIA [id number] [address] Rh Nom (Bld) Positive Normal [facility] Comment on above: Order Comment: Speci men Type: BLOOD SPECIMENOrdering Facility: [facility] Address: [address] [place] [address] Performed By: #### T SCR ####[facility] BLOOD BANKCLIA [id number] TYPE AND SCREEN EXPIRATION 09/04/2024 23:59 Normal [facility] Comment on above: Order Comment: Speci men Type: BLOOD SPECIMENOrdering Facility: [facility] Address: [address] [place] [address] Performed By: #### T SCR ####[facility] BLOOD BANKCLIA [id number] [address] CBC W Auto Differential pane l (Bld)on 08-25-2024 Basophils (Bld) [#/Vol] 0.03 10*3/uL Normal <0.11 [facility] Comment on above: Order Comment: Speci men Type: BLOOD SPECIMENOrdering Facility: [facility] Address: [address] [place] [address] Performed By: #### 5 7021-8 ####[facility] [place] LABCLIA [id number] [place] [address] [facility] Basophils/100 WBC (Bld) 0.5 % Normal [facility] Comment on above: Order Comment: Speci men Type: BLOOD SPECIMENOrdering Facility: [facility] Address: [address] [place] [address] Performed By: #### 5 7021-8 ####[facility] [place] LABCLIA [id number] [place] [address] [facility] Differential cell count method Nom (Bld) Auto Normal [facility] Comment on above: Order Comment: Speci men Type: BLOOD SPECIMENOrdering Facility: [facility] Address: [address] [place] [address] Performed By: #### 5 7021-8 ####[facility] [place] LABCLIA [id number] [place] [address] [place] Eosinophils (Bld) [#/Vol] 0.03 10*3/uL Normal <0.46 [facility] Comment on above: Order Comment: Speci men Type: BLOOD SPECIMENOrdering Facility: [facility] Address: [address] [place] [address] Performed By: #### 5 7021-8 ####[facility] LABCLIA [id number] [address] [facility] [address] [place] Eosinophils/100 WBC (Bld) 0.5 % Normal [facility] Comment on above: Order Comment: Speci men Type: BLOOD SPECIMENOrdering Facility: [facility] Address: [address] [place] [address] Performed By: #### 5 7021-8 ####[facility] [place] LABCLIA [id number] [facility] [place] [address] [place] Erythrocyte distribution width (RBC) [Ratio] 16.1 % High 11.5-15.0 [facility] Comment on above: Order Comment: Speci men Type: BLOOD SPECIMENOrdering Facility: [facility] Address: [address] [place] [address] Performed By: #### 5 7021-8 ####[facility] [place] LABCLIA [id number] [place] [address] [place] Hematocrit (Bld) [Volume fraction] 22.8 % Low 39.0-51.0 [facility] Comment on above: Order Comment: Speci men Type: BLOOD SPECIMENOrdering Facility: [facility] Address: [address] [place] [address] Performed By: #### 5 7021-8 ####[facility] [place] LABCLIA [id number] [facility] [place] [address] [place] Hemoglobin (Bld) [Mass/Vol] 7.5 g/dL Low 13.0-17.0 [facility] Comment on above: Order Comment: Speci men Type: BLOOD SPECIMENOrdering Facility: [facility] Address: [address] [place] [address] Performed By: #### 5 7021-8 ####[facility] LABCLIA [id number] [facility] [place] [address] [place] Immature granulocytes (Bld) [#/Vol] 10*3/uL Normal <0.10 [facility] Comment on above: Order Comment: Speci men Type: BLOOD SPECIMENOrdering Facility: [facility] Address: [address] [place] [address] Performed By: #### 5 7021-8 ####[facility] LABCLIA [id number] [place] [address] [facility] Immature granulocytes/100 WBC (Bld) 0.2 % Normal [facility] Comment on above: Order Comment: Speci men Type: BLOOD SPECIMENOrdering Facility: [facility] Address: [address] [place] [address] Performed By: #### 5 7021-8 ####[facility] LABCLIA [id number] [place] [address] [place] [facility] Lymphocytes (Bld) [#/Vol] 2.09 10*3/uL Normal 1.00-4.00 [facility] Comment on above: Order Comment: Speci men Type: BLOOD SPECIMENOrdering Facility: [facility] Address: [address] [place] [address] Performed By: #### 5 7021-8 ####[facility] LABCLIA [id number] [place] [address] [place] [facility] Lymphocytes/100 WBC (Bld) 34.8 % Normal [facility] Comment on above: Order Comment: Speci men Type: BLOOD SPECIMENOrdering Facility: [facility] Address: [address] [place] [address] Performed By: #### 5 7021-8 ####[facility] LABCLIA [id number] [place] [address] [place] MCH (RBC) [Entitic mass] 29.3 pg Normal 26.0-34.0 [facility] Comment on above: Order Comment: Speci men Type: BLOOD SPECIMENOrdering Facility: [facility] Address: [address] [place] [address] Performed By: #### 5 7021-8 ####[facility] [place] LABCLIA [id number] [place] [address] [place] MCHC (RBC) [Mass/Vol] 32.9 g/dL Normal 30.5-36.0 [facility] Comment on above: Order Comment: Speci men Type: BLOOD SPECIMENOrdering Facility: [facility] Address: [address] [place] [address] Performed By: #### 5 7021-8 ####[facility] [place] LABCLIA [id number] [place] [address] [place] MCV (RBC) [Entitic vol] 89.1 fL Normal 80.0-100.0 [facility] Comment on above: Order Comment: Speci men Type: BLOOD SPECIMENOrdering Facility: [facility] Address: [address] [place] [address] Performed By: #### 5 7021-8 ####[facility] LABCLIA [id number] [place], [place] [id number] [place] [address] [place] Monocytes (Bld) [#/Vol] 0.53 10*3/uL Normal <0.87 [facility] Comment on above: Order Comment: Speci men Type: BLOOD SPECIMENOrdering Facility: [facility] Address: [address] [place] [address] Performed By: #### 5 7021-8 ####[facility] LABCLIA [id number] [place] [address] [place] Monocytes/100 WBC (Bld) 8.8 % Normal [facility] Comment on above: Order Comment: Speci men Type: BLOOD SPECIMENOrdering Facility: [facility] Address: [address] [place] [address] Performed By: #### 5 7021-8 ####[facility] LABCLIA [id number] [place] [address] [facility] [place] Neutrophils (Bld) [#/Vol] 3.31 10*3/uL Normal 1.45-7.50 [facility] Comment on above: Order Comment: Speci men Type: BLOOD SPECIMENOrdering Facility: [facility] Address: [address] [place] [address] Performed By: #### 5 7021-8 ####[facility] LABCLIA [id number] [address] [facility] [place] [address] [place] Neutrophils/100 WBC (Bld) 55.2 % Normal [facility] Comment on above: Order Comment: Speci men Type: BLOOD SPECIMENOrdering Facility: [facility] Address: [address] [place] [address] Performed By: #### 5 7021-8 ####[facility] [place] LABCLIA [id number] [facility] [place] [address] [place] Nucleated RBC (Bld) [#/Vol] Normal [facility] Comment on above: Order Comment: Speci men Type: BLOOD SPECIMENOrdering Facility: [facility] Address: [address] [place] [address] Performed By: #### 5 7021-8 ####[facility] [place] LABCLIA [id number] [place] [address] [place] Nucleated RBC/100 WBC (Bld) [Ratio] Normal [facility] Comment on above: Order Comment: Speci men Type: BLOOD SPECIMENOrdering Facility: [facility] Address: [address] [place] [address] Performed By: #### 5 7021-8 ####[facility] [place] LABCLIA [id number] [facility] [place] [address] [place] Platelet mean volume (Bld) [Entitic vol] 10.1 fL Normal 9.0-12.7 [facility] Comment on above: Order Comment: Speci men Type: BLOOD SPECIMENOrdering Facility: [facility] Address: [address] [place] [address] Performed By: #### 5 7021-8 ####[facility] [place] LABCLIA [id number] [facility] [place] [address] [place] Platelets (Bld) [#/Vol] 106 10*3/uL Low 150-400 [facility] Comment on above: Order Comment: Speci men Type: BLOOD SPECIMENOrdering Facility: [facility] Address: [address] [place] [address] Performed By: #### 5 7021-8 ####[facility] LABCLIA [id number] [place] [address] [facility] RBC (Bld) [#/Vol] 2.56 10*6/uL Low 4.20-6.00 [facility] Comment on above: Order Comment: Speci men Type: BLOOD SPECIMENOrdering Facility: [facility] Address: [address] [place] [address] Performed By: #### 5 7021-8 ####[facility] LABCLIA [id number] [address] WBC (Bld) [#/Vol] 6.00 10*3/uL Normal 3.70-11.00 [facility] Comment on above: Order Comment: Speci men Type: BLOOD SPECIMENOrdering Facility: [facility] Address: [address] [place] [address] Performed By: #### 5 7021-8 ####[facility] LABCLIA [id number] [address] TYPE + SCREENon 08-25-2024 ABO B Normal [facility] Comment on above: Order Comment: Speci men Type: BLOOD SPECIMENOrdering Facility: [facility] Address: [address] [place] [address] Performed By: #### T SCR ####[facility] BLOOD BANKCLIA [id number] [address] Rh Nom (Bld) Positive Normal [facility] Comment on above: Order Comment: Speci men Type: BLOOD SPECIMENOrdering Facility: [facility] Address: [address] [place] [address] Performed By: #### T SCR ####[facility] BLOOD BANKCLIA [id number] [address] TYPE AND SCREEN EXPIRATION 08/28/2024 23:59 Normal [facility] Comment on above: Order Comment: Speci men Type: BLOOD SPECIMENOrdering Facility: [facility] Address: [address] [place] [address] Performed By: #### T SCR ####[facility] BLOOD BANKCLIA [id number] [place], [place] [id number] [place] [address] [place] [facility] CBC W Auto Differential pane l (Bld)on 08-18-2024 Basophils (Bld) [#/Vol] 10*3/uL Normal <0.11 [facility] Comment on above: Order Comment: Speci men Type: BLOOD SPECIMENOrdering Facility: [facility] Address: [address] [place] [address] Performed By: #### 5 7021-8 ####[facility] [place] LABCLIA [id number] [place] [address] [place] [facility] Basophils/100 WBC (Bld) 0.4 % Normal [facility] Comment on above: Order Comment: Speci men Type: BLOOD SPECIMENOrdering Facility: [facility] Address: [address] [place] [address] Performed By: #### 5 7021-8 ####[facility] [place] LABCLIA [id number] [place] [address] [facility] Differential cell count method Nom (Bld) Auto Normal [facility] Comment on above: Order Comment: Speci men Type: BLOOD SPECIMENOrdering Facility: [facility] Address: [address] [place] [address] Performed By: #### 5 7021-8 ####[facility] [place] LABCLIA [id number] [place] [address] [facility] [place] Eosinophils (Bld) [#/Vol] 10*3/uL Normal <0.46 [facility] Comment on above: Order Comment: Speci men Type: BLOOD SPECIMENOrdering Facility: [facility] Address: [address] [place] [address] Performed By: #### 5 7021-8 ####[facility] [place] LABCLIA [id number] [place] [address] [place] Eosinophils/100 WBC (Bld) 0.4 % Normal [facility] Comment on above: Order Comment: Speci men Type: BLOOD SPECIMENOrdering Facility: [facility] Address: [address] [place] [address] Performed By: #### 5 7021-8 ####[facility] [place] LABCLIA [id number] [place] [address] [place] Erythrocyte distribution width (RBC) [Ratio] 15.8 % High 11.5-15.0 [facility] Comment on above: Order Comment: Speci men Type: BLOOD SPECIMENOrdering Facility: [facility] Address: [address] [place] [address] Performed By: #### 5 7021-8 ####[facility] LABCLIA [id number] [address] [facility] [place] [address] [place] Hematocrit (Bld) [Volume fraction] 19.8 % Low 39.0-51.0 [facility] Comment on above: Order Comment: Speci men Type: BLOOD SPECIMENOrdering Facility: [facility] Address: [address] [place] [address] Performed By: #### 5 7021-8 ####[facility] [place] LABCLIA [id number] [place] [address] [place] Hemoglobin (Bld) [Mass/Vol] 6.6 g/dL Low 13.0-17.0 [facility] Comment on above: Order Comment: Speci men Type: BLOOD SPECIMENOrdering Facility: [facility] Address: [address] [place] [address] Performed By: #### 5 7021-8 ####[facility] [place] LABCLIA [id number] [place] [address] [place] Immature granulocytes (Bld) [#/Vol] 10*3/uL Normal <0.10 [facility] Comment on above: Order Comment: Speci men Type: BLOOD SPECIMENOrdering Facility: [facility] Address: [address] [place] [address] Performed By: #### 5 7021-8 ####[facility] [place] LABCLIA [id number] [place] [address] [facility] Immature granulocytes/100 WBC (Bld) 0.4 % Normal [facility] Comment on above: Order Comment: Speci men Type: BLOOD SPECIMENOrdering Facility: [facility] Address: [address] [place] [address] Performed By: #### 5 7021-8 ####[facility] [place] LABCLIA [id number] [address] Lymphocytes (Bld) [#/Vol] 1.82 10*3/uL Normal 1.00-4.00 [facility] Comment on above: Order Comment: Speci men Type: BLOOD SPECIMENOrdering Facility: [facility] Address: [address] [place] [address] Performed By: #### 5 7021-8 ####[facility] [place] LABCLIA [id number] [address] Lymphocytes/100 WBC (Bld) 32.9 % Normal [facility] Comment on above: Order Comment: Speci men Type: BLOOD SPECIMENOrdering Facility: [facility] Address: [address] [place] [address] Performed By: #### 5 7021-8 ####[facility] [place] LABCLIA [id number] [place] [address] [place] MCH (RBC) [Entitic mass] 29.2 pg Normal 26.0-34.0 [facility] Comment on above: Order Comment: Speci men Type: BLOOD SPECIMENOrdering Facility: [facility] Address: [address] [place] [address] Performed By: #### 5 7021-8 ####[facility] LABCLIA [id number] [place] [id number] [place] MCHC (RBC) [Mass/Vol] 33.3 g/dL Normal 30.5-36.0 [facility] Comment on above: Order Comment: Speci men Type: BLOOD SPECIMENOrdering Facility: [facility] Address: [address] [place] [address] Performed By: #### 5 7021-8 ####[facility] LABCLIA [id number] [facility] [place] [address] [place] MCV (RBC) [Entitic vol] 87.6 fL Normal 80.0-100.0 [facility] Comment on above: Order Comment: Speci men Type: BLOOD SPECIMENOrdering Facility: [facility] Address: [address] [place] [address] Performed By: #### 5 7021-8 ####[facility] LABCLIA [id number] [facility], [place] [address] [place] Monocytes (Bld) [#/Vol] 0.56 10*3/uL Normal <0.87 [facility] Comment on above: Order Comment: Speci men Type: BLOOD SPECIMENOrdering Facility: [facility] Address: [address] [place] [address] Performed By: #### 5 7021-8 ####[facility] LABCLIA [id number] [place] [address] [place] Monocytes/100 WBC (Bld) 10.1 % Normal [facility] Comment on above: Order Comment: Speci men Type: BLOOD SPECIMENOrdering Facility: [facility] Address: [address] [place] [address] Performed By: #### 5 7021-8 ####[facility] LABCLIA [id number] [place] [address] [place] Neutrophils (Bld) [#/Vol] 3.09 10*3/uL Normal 1.45-7.50 [facility] Comment on above: Order Comment: Speci men Type: BLOOD SPECIMENOrdering Facility: [facility] Address: [address] [place] [address] Performed By: #### 5 7021-8 ####[facility] LABCLIA [id number] [place] [address] [place] Neutrophils/100 WBC (Bld) 55.8 % Normal [facility] Comment on above: Order Comment: Speci men Type: BLOOD SPECIMENOrdering Facility: [facility] Address: [address] [place] [address] Performed By: #### 5 7021-8 ####[facility] LABCLIA [id number] [place] [address] [place] Nucleated RBC (Bld) [#/Vol] Normal [facility] Comment on above: Order Comment: Speci men Type: BLOOD SPECIMENOrdering Facility: [facility] Address: [address] [place] [address] Performed By: #### 5 7021-8 ####[facility] LABCLIA [id number] [facility] [place] [address] [place] Nucleated RBC/100 WBC (Bld) [Ratio] Normal [facility] Comment on above: Order Comment: Speci men Type: BLOOD SPECIMENOrdering Facility: [facility] Address: [address] [place] [address] Performed By: #### 5 7021-8 ####[facility] LABCLIA [id number] [facility] [place] [address] [place] Platelet mean volume (Bld) [Entitic vol] 9.9 fL Normal 9.0-12.7 [facility] Comment on above: Order Comment: Speci men Type: BLOOD SPECIMENOrdering Facility: [facility] Address: [address] [place] [address] Performed By: #### 5 7021-8 ####[facility] LABCLIA [id number] [facility] [place] [address] [place] Platelets (Bld) [#/Vol] 144 10*3/uL Low 150-400 [facility] Comment on above: Order Comment: Speci men Type: BLOOD SPECIMENOrdering Facility: [facility] Address: [address] [place] [address] Performed By: #### 5 7021-8 ####[facility] LABCLIA [id number] [place] [address] [facility] RBC (Bld) [#/Vol] 2.26 10*6/uL Low 4.20-6.00 [facility] Comment on above: Order Comment: Speci men Type: BLOOD SPECIMENOrdering Facility: [facility] Address: [address] [place] [address] Performed By: #### 5 7021-8 ####[facility] LABCLIA [id number] [place] [id number] [facility] WBC (Bld) [#/Vol] 5.53 10*3/uL Normal 3.70-11.00 [facility] Comment on above: Order Comment: Speci men Type: BLOOD SPECIMENOrdering Facility: [facility] Address: [address] [place] [address] Performed By: #### 5 7021-8 ####[facility] LABCLIA [id number] [address] TYPE + SCREENon 08-18-2024 ABO B Normal [facility] Comment on above: Order Comment: Speci men Type: BLOOD SPECIMENOrdering Facility: [facility] Address: [address] [place] [address] Performed By: #### T SCR ####[facility] BLOOD BANKCLIA [id number] [address] Rh Nom (Bld) Positive Normal [facility] Comment on above: Order Comment: Speci men Type: BLOOD SPECIMENOrdering Facility: [facility] Address: [address] [place] [address] Performed By: #### T SCR ####[facility] BLOOD BANKCLIA [id number] [address] TYPE AND SCREEN EXPIRATION 08/21/2024 23:59 Normal [facility] Comment on above: Order Comment: Speci men Type: BLOOD SPECIMENOrdering Facility: [facility] Address: [address] [place] [address] Performed By: #### T SCR ####[facility] BLOOD BANKCLIA [id number] [place] [address] [place] CBC W Auto Differential pane l (Bld)on 08-11-2024 Basophils (Bld) [#/Vol] 10*3/uL Normal <0.11 [facility] Comment on above: Order Comment: Speci men Type: BLOOD SPECIMENOrdering Facility: [facility] Address: [address] [place] [address] Performed By: #### 5 7021-8 ####[facility] LABCLIA [id number] [place] [address] [place] Basophils/100 WBC (Bld) 0.3 % Normal [facility] Comment on above: Order Comment: Speci men Type: BLOOD SPECIMENOrdering Facility: [facility] Address: [address] [place] [address] Performed By: #### 5 7021-8 ####[facility] LABCLIA [id number] [place] [address] [place] [facility] Differential cell count method Nom (Bld) Auto Normal [facility] Comment on above: Order Comment: Speci men Type: BLOOD SPECIMENOrdering Facility: [facility] Address: [address] [place] [address] Performed By: #### 5 7021-8 ####[facility] LABCLIA [id number] [place] [address] [place] Eosinophils (Bld) [#/Vol] 10*3/uL Normal <0.46 [facility] Comment on above: Order Comment: Speci men Type: BLOOD SPECIMENOrdering Facility: [facility] Address: [address] [place] [address] Performed By: #### 5 7021-8 ####[facility] LABCLIA [id number] [place] [facility] [place] [address] [place] Eosinophils/100 WBC (Bld) 0.2 % Normal [facility] Comment on above: Order Comment: Speci men Type: BLOOD SPECIMENOrdering Facility: [facility] Address: [address] [place] [address] Performed By: #### 5 7021-8 ####[facility] LABCLIA [id number] [facility] [place] [address] [place] Erythrocyte distribution width (RBC) [Ratio] 16.3 % High 11.5-15.0 [facility] Comment on above: Order Comment: Speci men Type: BLOOD SPECIMENOrdering Facility: [facility] Address: [address] [place] [address] Performed By: #### 5 7021-8 ####[facility] LABCLIA [id number] [facility] [place] [address] [place] Hematocrit (Bld) [Volume fraction] 18.3 % Low 39.0-51.0 [facility] Comment on above: Order Comment: Speci men Type: BLOOD SPECIMENOrdering Facility: [facility] Address: [address] [place] [address] Performed By: #### 5 7021-8 ####[facility] LABCLIA [id number] [facility] [place] [address] [place] Hemoglobin (Bld) [Mass/Vol] 6.1 g/dL Low 13.0-17.0 [facility] Comment on above: Order Comment: Speci men Type: BLOOD SPECIMENOrdering Facility: [facility] Address: [address] [place] [address] Performed By: #### 5 7021-8 ####[facility] LABCLIA [id number] [facility] [place] [address] [place] Immature granulocytes (Bld) [#/Vol] 0.04 10*3/uL Normal <0.10 [facility] Comment on above: Order Comment: Speci men Type: BLOOD SPECIMENOrdering Facility: [facility] Address: [address] [place] [address] Performed By: #### 5 7021-8 ####[facility] LABCLIA [id number] [place] [id number] [facility] Immature granulocytes/100 WBC (Bld) 0.7 % Normal [facility] Comment on above: Order Comment: Speci men Type: BLOOD SPECIMENOrdering Facility: [facility] Address: [address] [place] [address] Performed By: #### 5 7021-8 ####[facility] LABCLIA [id number] [place], [place] [id number] [place] [address] [place] [facility] Lymphocytes (Bld) [#/Vol] 2.13 10*3/uL Normal 1.00-4.00 [facility] Comment on above: Order Comment: Speci men Type: BLOOD SPECIMENOrdering Facility: [facility] Address: [address] [place] [address] Performed By: #### 5 7021-8 ####[facility] LABCLIA [id number] [address] Lymphocytes/100 WBC (Bld) 35.9 % Normal [facility] Comment on above: Order Comment: Speci men Type: BLOOD SPECIMENOrdering Facility: [facility] Address: [address] [place] [address] Performed By: #### 5 7021-8 ####[facility] LABCLIA [id number] [place] [address] [place] MCH (RBC) [Entitic mass] 28.8 pg Normal 26.0-34.0 [facility] Comment on above: Order Comment: Speci men Type: BLOOD SPECIMENOrdering Facility: [facility] Address: [address] [place] [address] Performed By: #### 5 7021-8 ####[facility] LABCLIA [id number] [place] [address] [facility] MCHC (RBC) [Mass/Vol] 33.3 g/dL Normal 30.5-36.0 [facility] Comment on above: Order Comment: Speci men Type: BLOOD SPECIMENOrdering Facility: [facility] Address: [address] [place] [address] Performed By: #### 5 7021-8 ####[facility] LABCLIA [id number] [place] [address] [place] MCV (RBC) [Entitic vol] 86.3 fL Normal 80.0-100.0 [facility] Comment on above: Order Comment: Speci men Type: BLOOD SPECIMENOrdering Facility: [facility] Address: [address] [place] [address] Performed By: #### 5 7021-8 ####[facility] LABCLIA [id number] [place] [address] [place] Monocytes (Bld) [#/Vol] 0.39 10*3/uL Normal <0.87 [facility] Comment on above: Order Comment: Speci men Type: BLOOD SPECIMENOrdering Facility: [facility] Address: [address] [place] [address] Performed By: #### 5 7021-8 ####[facility] LABCLIA [id number] [place] [address] [facility] Monocytes/100 WBC (Bld) 6.6 % Normal [facility] Comment on above: Order Comment: Speci men Type: BLOOD SPECIMENOrdering Facility: [facility] Address: [address] [place] [address] Performed By: #### 5 7021-8 ####[facility] LABCLIA [id number] [place] [address] [place] Neutrophils (Bld) [#/Vol] 3.34 10*3/uL Normal 1.45-7.50 [facility] Comment on above: Order Comment: Speci men Type: BLOOD SPECIMENOrdering Facility: [facility] Address: [address] [place] [address] Performed By: #### 5 7021-8 ####[facility] LABCLIA [id number] [place] [address] [place] Neutrophils/100 WBC (Bld) 56.3 % Normal [facility] Comment on above: Order Comment: Speci men Type: BLOOD SPECIMENOrdering Facility: [facility] Address: [address] [place] [address] Performed By: #### 5 7021-8 ####[facility] LABCLIA [id number] [place] [address] [place] Nucleated RBC (Bld) [#/Vol] Normal [facility] Comment on above: Order Comment: Speci men Type: BLOOD SPECIMENOrdering Facility: [facility] Address: [address] [place] [address] Performed By: #### 5 7021-8 ####[facility] LABCLIA [id number] [facility] [place] [address] [place] Nucleated RBC/100 WBC (Bld) [Ratio] Normal [facility] Comment on above: Order Comment: Speci men Type: BLOOD SPECIMENOrdering Facility: [facility] Address: [address] [place] [address] Performed By: #### 5 7021-8 ####[facility] LABCLIA [id number] [facility] [place] [address] [place] Platelet mean volume (Bld) [Entitic vol] 11.0 fL Normal 9.0-12.7 [facility] Comment on above: Order Comment: Speci men Type: BLOOD SPECIMENOrdering Facility: [facility] Address: [address] [place] [address] Performed By: #### 5 7021-8 ####[facility] LABCLIA [id number] [facility] [place] [address] [place] Platelets (Bld) [#/Vol] 108 10*3/uL Low 150-400 [facility] Comment on above: Order Comment: Speci men Type: BLOOD SPECIMENOrdering Facility: [facility] Address: [address] [place] [address] Performed By: #### 5 7021-8 ####[facility] LABCLIA [id number] [place] [address] [facility] RBC (Bld) [#/Vol] 2.12 10*6/uL Low 4.20-6.00 [facility] Comment on above: Order Comment: Speci men Type: BLOOD SPECIMENOrdering Facility: [facility] Address: [address] [place], [place] [address] Performed By: #### 5 7021-8 ####[facility] LABCLIA [id number] [place] [address] [facility] WBC (Bld) [#/Vol] 5.93 10*3/uL Normal 3.70-11.00 [facility] Comment on above: Order Comment: Speci men Type: BLOOD SPECIMENOrdering Facility: [facility] Address: [address] [place], [place] [address] Performed By: #### 5 7021-8 ####[facility] LABCLIA [id number] [place] [address] [facility] Office Visiton 08-11-2024 Follow-up visit [id number] Joss Oropeza 1945 M Date Provider Department Center 08/11/2024 SABAS AKHTAR V [facility] ONC None Family History Problem Relation Age of Onset Thyroid cancer Mother Pulmonary embolism Sister Thyroid cancer Daughter Family Status - Relation Status Age at Mother Father Sister Daughter Alive Level of Service:77243 [place] OFFICE/OUTPATIENT ESTABLISHED HIGH MDM 40 MIN Reason for Visit and Comments: Follow-up [059744] Normal [facility] Progress Noteon 08-11-2024 Progress Note PT is exhausted all the time Normal [facility] Progress Note Sabas You MD [facility] Hematology/Oncology - [facility] [address] [facility] [address] Dept: [phone] Dept PROBLEM LIST: 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 -03/08/2023 started Luspatercept which was increased to max dose -01/10/2024 = started on Imetelstat via Dr Vicenta Noriega -Receiving luspatercept and Imetelstat through [facility]/Vicenta Noriega -07/21/2024 BMBx= normocellular marrow with trilineage hematopoiesis, decreased erythroids with dyserythropoiesis including ring sideroblasts and mild megakaryocytic atypia. Small clonal B-cell populations per report, mild reticulin fibrosis, increased stainable iron. Positive PPM1D mutation indicating clonal hematopoiesis 2. Fatty liver Documented on 11/24/2021 [facility] u/s 3.Iron overload ASSESSMENT AND PLAN: Joss Oropeza is a 79 y.o. male here for 1. MDS: -06/2024 BMBx ([facility]) reviewed = likely MDS -With pt failing to respond to prior therapies (would recommend discontinuation of current treatment), we spent time today discussing options going forward. With anemia being the main issue, it would be reasonable to trial an TOAN such as Retacrit. However, patient will need to have an erythropoietin level drawn. If this agent does not improve hemoglobin in a short time or there are other cytopenias noted, switching to azacitidine or decitabine would be reasonable. We discussed this all at length the day. After long discussion, the patient and family did wish to seek a second opinion at [facility] so we did place a referral today for Dr. Annie Frank. The patient wished to continue his care under Dr. Vicenta Noriega at [facility]. They look forward to Dr. Frank's opinion and coordinating his recommendations with Dr. Noriega's treatment plan. All questions were answered to the patient, , son satisfaction 2. Iron overload Would recommend iron chelation On this date, 08/11/24 , I have spent 40 minutes preparing to see the patient, reviewing previous notes and test results, completing clinical documentation as well as with [id number] patient care, performing a medically appropriate examination, counseling / educating the patient/family/caregiver, and ordering medications, tests, or procedures. HPI: Joss Oropeza is a 79 y.o. male who presents here today with MDS Since last appointment the patient underwent a bone marrow biopsy at [facility] The patient reports that he is very frustrated with ongoing fatigue and weakness. 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 Vaping Use Vaping status: Never Used Substance and Sexual Activity Alcohol use: Yes Comment: rare Drug use: Never Sexual activity: Not on file Other Topics Concern Not on file Social History Narrative Not on file Social Drivers of Health Financial Resource Strain: Low Risk (05/23/2022) Received from [facility] Overall Financial Resource Strain (CARDIA) Difficulty of Paying Living Expenses: Not hard at all Food Insecurity: No Food Insecurity (06/07/2024) Received from [facility] Hunger Vital Sign Worried About Running Out of Food in the Last Year: Never true Ran Out of Food in the Last Year: Never true Transportation Needs: No Transportation Needs (06/07/2024) Received from [facility] PRAPARE - Transportation Lack of Transportation (Medical): No Lack of Transportation (Non-Medical): No Physical Activity: Not on file Stress: Not on file Social Connections: Not on file Intimate Partner Violence: Not on file Housing Stability: Unknown (06/07/2024) Received from [facility] Housing Stability Vital Sign Unable to Pay for Housing in the Last Year: No Number of Times Moved in the Last Year: Not on file Homeless in the Last Year: No Family History[7] Allergies[8] Reviewed medications, allergies, past medical history, social history, family history as above. PHYSICAL EXAM: BP 130/64 Pulse 91 Temp 37.1 ?C (98.7 ?F) (Temporal) Ht 1.727 m (5' 7.99) Wt 97.8 kg (215 lb 8 oz) SpO2 99% BMI 32.77 kg/m? CONSTITUTIONAL: see VS. No apparent distress. SKIN: No rashes PYSCH: AAOx3. Mood and affect appropriate, (more content not included)... Normal [facility] TYPE + SCREENon 08-11-2024 ABO B Normal [facility] Comment on above: Order Comment: Speci men Type: BLOOD SPECIMENOrdering Facility: [facility] Address: [address] [place] [address] Performed By: #### T SCR ####[facility] BLOOD BANKCLIA [id number] [address] [place] Rh Nom (Bld) Positive Normal [facility] Comment on above: Order Comment: Speci men Type: BLOOD SPECIMENOrdering Facility: [facility] Address: [address] [place] [address] Performed By: #### T SCR ####[facility] BLOOD BANKCLIA [id number] [address] OF [facility] TYPE AND SCREEN EXPIRATION 08/14/2024 23:59 Normal [facility] Comment on above: Order Comment: Speci men Type: BLOOD SPECIMENOrdering Facility: [facility] Address: [address] [place] [address] Performed By: #### T SCR ####[facility] BLOOD BANKCLIA [id number] [address] [place] CNCOon 08-10-2024 CNCO Letter Text Normal [facility] Abdomen Single Viewon 2024 Abdomen Single View [facility] Imaging Services [address] [place], [place] [id number] Abdomen Single View MR#: [id number] Acct: [id number] Name: JOSS OROPEZA Lesly Rep #: [id number] : 1945 M 79 From: Christopher narvaez MD PCP: Dr. German Robertson MD Status: REG CLI Study: Abdomen Single View Date of Exam: 08/09/24 Exam# [id number] Ordering Dr: German Robertson MD PROCEDURE: ABDOMEN SINGLE VIEW 08/09/2024 REASON FOR EXAM: PAIN TECHNIQUE: ABDOMEN SINGLE VIEW FINDINGS: Normal gastrointestinal gas pattern seen. Right upper quadrant surgical clips are seen. Mild stool noted in large bowel loops. No pneumoperitoneum. Visualized bones appear unremarkable. No pathological abdominal calcifications noted. RAD/Abdomen Single View IMPRESSION: No acute findings Reading Location: [place] [address] CC: Dr. German Robertson MD Foundry Process Engineer: Signed Normal [facility] CNOVSPon 08-05-2024 CNOVSP Normal [facility] CNPNon 08-05-2024 CNPN Normal [facility] CBC W Auto Differential pane l (Bld)on 08-04-2024 Basophils (Bld) [#/Vol] 0.04 10*3/uL Normal <0.11 [facility] Comment on above: Order Comment: Speci men Type: BLOOD SPECIMENOrdering Facility: [facility] Address: [address] [place] [address] Performed By: #### 5 7021-8 ####[facility] LABCLIA [id number] [place] [id number] [place] Basophils/100 WBC (Bld) 0.6 % Normal [facility] Comment on above: Order Comment: Speci men Type: BLOOD SPECIMENOrdering Facility: [facility] Address: [address] [place] [address] Performed By: #### 5 7021-8 ####[facility] LABCLIA [id number] [place] [address] [place] Differential cell count method Nom (Bld) Auto Normal [facility] Comment on above: Order Comment: Speci men Type: BLOOD SPECIMENOrdering Facility: [facility] Address: [address] [place] [address] Performed By: #### 5 7021-8 ####[facility] LABCLIA [id number] [place] [address] [place] Eosinophils (Bld) [#/Vol] 10*3/uL Normal <0.46 [facility] Comment on above: Order Comment: Speci men Type: BLOOD SPECIMENOrdering Facility: [facility] Address: [address] [place] [address] Performed By: #### 5 7021-8 ####[facility] [place] LABCLIA [id number] [facility] [place] [address] [place] Eosinophils/100 WBC (Bld) 0.1 % Normal [facility] Comment on above: Order Comment: Speci men Type: BLOOD SPECIMENOrdering Facility: [facility] Address: [address] [place] [address] Performed By: #### 5 7021-8 ####[facility] [place] LABCLIA [id number] [place] [address] [place] Erythrocyte distribution width (RBC) [Ratio] 16.2 % High 11.5-15.0 [facility] Comment on above: Order Comment: Speci men Type: BLOOD SPECIMENOrdering Facility: [facility] Address: [address] [place] [address] Performed By: #### 5 7021-8 ####[facility] [place] LABCLIA [id number] [place] [address] [place] Hematocrit (Bld) [Volume fraction] 22.1 % Low 39.0-51.0 [facility] Comment on above: Order Comment: Speci men Type: BLOOD SPECIMENOrdering Facility: [facility] Address: [address] [place] [address] Performed By: #### 5 7021-8 ####[facility] [place] LABCLIA [id number] [facility] [place] [address] [place] Hemoglobin (Bld) [Mass/Vol] 7.2 g/dL Low 13.0-17.0 [facility] Comment on above: Order Comment: Speci men Type: BLOOD SPECIMENOrdering Facility: [facility] Address: [address] [place] [address] Performed By: #### 5 7021-8 ####[facility] [place] LABCLIA [id number] [place] [address] [place] Immature granulocytes (Bld) [#/Vol] 10*3/uL Normal <0.10 [facility] Comment on above: Order Comment: Speci men Type: BLOOD SPECIMENOrdering Facility: [facility] Address: [address] [place] [address] Performed By: #### 5 7021-8 ####[facility] [place] LABCLIA [id number] [place] [address] [place] [facility] Immature granulocytes/100 WBC (Bld) 0.3 % Normal [facility] Comment on above: Order Comment: Speci men Type: BLOOD SPECIMENOrdering Facility: [facility] Address: [address] [place] [address] Performed By: #### 5 7021-8 ####[facility] [place] LABCLIA [id number] [facility] [place] [address] [place] Lymphocytes (Bld) [#/Vol] 2.63 10*3/uL Normal 1.00-4.00 [facility] Comment on above: Order Comment: Speci men Type: BLOOD SPECIMENOrdering Facility: [facility] Address: [address] [place] [address] Performed By: #### 5 7021-8 ####[facility] [place] LABCLIA [id number] [place] [address] [facility] Lymphocytes/100 WBC (Bld) 38.8 % Normal [facility] Comment on above: Order Comment: Speci men Type: BLOOD SPECIMENOrdering Facility: [facility] Address: [address] [place] [address] Performed By: #### 5 7021-8 ####[facility] [place] LABCLIA [id number] [facility] [place] [address] [place] MCH (RBC) [Entitic mass] 28.8 pg Normal 26.0-34.0 [facility] Comment on above: Order Comment: Speci men Type: BLOOD SPECIMENOrdering Facility: [facility] Address: [address] [place] [address] Performed By: #### 5 7021-8 ####[facility] [place] LABCLIA [id number] [place] [address] [facility] MCHC (RBC) [Mass/Vol] 32.6 g/dL Normal 30.5-36.0 [facility] Comment on above: Order Comment: Speci men Type: BLOOD SPECIMENOrdering Facility: [facility] Address: [address] [place] [address] Performed By: #### 5 7021-8 ####[facility] [place] LABCLIA [id number] [place] [address] [place] MCV (RBC) [Entitic vol] 88.4 fL Normal 80.0-100.0 [facility] Comment on above: Order Comment: Speci men Type: BLOOD SPECIMENOrdering Facility: [facility] Address: [address] [place] [address] Performed By: #### 5 7021-8 ####[facility] [place] LABCLIA [id number] [place] [address] [facility] Monocytes (Bld) [#/Vol] 0.54 10*3/uL Normal <0.87 [facility] Comment on above: Order Comment: Speci men Type: BLOOD SPECIMENOrdering Facility: [facility] Address: [address] [place] [address] Performed By: #### 5 7021-8 ####[facility] [place] LABCLIA [id number] [place] [address] [facility] Monocytes/100 WBC (Bld) 8.0 % Normal [facility] Comment on above: Order Comment: Speci men Type: BLOOD SPECIMENOrdering Facility: [facility] Address: [address] [place] [address] Performed By: #### 5 7021-8 ####[facility] [place] LABCLIA [id number] [place] [address] [place] Neutrophils (Bld) [#/Vol] 3.53 10*3/uL Normal 1.45-7.50 [facility] Comment on above: Order Comment: Speci men Type: BLOOD SPECIMENOrdering Facility: [facility] Address: [address] [place] [address] Performed By: #### 5 7021-8 ####[facility] [place] LABCLIA [id number] [place] [address] [place] Neutrophils/100 WBC (Bld) 52.2 % Normal [facility] Comment on above: Order Comment: Speci men Type: BLOOD SPECIMENOrdering Facility: [facility] Address: [address] [place] [address] Performed By: #### 5 7021-8 ####[facility] [place] LABCLIA [id number] [place] [address] [place] Nucleated RBC (Bld) [#/Vol] Normal [facility] Comment on above: Order Comment: Speci men Type: BLOOD SPECIMENOrdering Facility: [facility] Address: [address] [place] [address] Performed By: #### 5 7021-8 ####[facility] [place] LABCLIA [id number] [place] [address] [place] Nucleated RBC/100 WBC (Bld) [Ratio] Normal [facility] Comment on above: Order Comment: Speci men Type: BLOOD SPECIMENOrdering Facility: [facility] Address: [address] [place] [address] Performed By: #### 5 7021-8 ####[facility] [place] LABCLIA [id number] [place] [address] [place] Platelet mean volume (Bld) [Entitic vol] 11.1 fL Normal 9.0-12.7 [facility] Comment on above: Order Comment: Speci men Type: BLOOD SPECIMENOrdering Facility: [facility] Address: [address] [place] [address] Performed By: #### 5 7021-8 ####[facility] LABCLIA [id number] [place] [address] [facility] Platelets (Bld) [#/Vol] 119 10*3/uL Low 150-400 [facility] Comment on above: Order Comment: Speci men Type: BLOOD SPECIMENOrdering Facility: [facility] Address: [address] [place] [address] Performed By: #### 5 7021-8 ####[facility] LABCLIA [id number] [place] [address] [facility] [place] RBC (Bld) [#/Vol] 2.50 10*6/uL Low 4.20-6.00 [facility] Comment on above: Order Comment: Speci men Type: BLOOD SPECIMENOrdering Facility: [facility] Address: [address] [place] [address] Performed By: #### 5 7021-8 ####[facility] LABCLIA [id number] [place] [address] [facility] WBC (Bld) [#/Vol] 6.77 10*3/uL Normal 3.70-11.00 [facility] Comment on above: Order Comment: Speci men Type: BLOOD SPECIMENOrdering Facility: [facility] Address: [address] [place] [address] Performed By: #### 5 7021-8 ####[facility] LABCLIA [id number] [place] [address] [facility] TYPE + SCREENon 08-04-2024 ABO B Normal [facility] Comment on above: Order Comment: Speci men Type: BLOOD SPECIMENOrdering Facility: [facility] Address: [address] [place] [address] Performed By: #### T SCR ####[facility] BLOOD BANKCLIA [id number] [address] Rh Nom (Bld) Positive Normal [facility] Comment on above: Order Comment: Speci men Type: BLOOD SPECIMENOrdering Facility: [facility] Address: [address] [place] [address] Performed By: #### T SCR ####[facility] BLOOD BANKCLIA [id number] [place] [address] [facility] TYPE AND SCREEN EXPIRATION 08/07/2024 23:59 Normal [facility] Comment on above: Order Comment: Speci men Type: BLOOD SPECIMENOrdering Facility: [facility] Address: [address] [place] [address] Performed By: #### T SCR ####[facility] BLOOD BANKCLIA [id number] [place] [address] [facility] BONE MARROW ANALYSISOrdered By: Elpidio Storm on 07-31-2024 Addendum a8dpkDLcPSFxhYDbPBMv Nlxhbn KoTZKcwUMjS3KuxbzkSJfqSO7x YT3mxDonwBWneTSkPUEeNsFwm7 wkd273zWTez2alTADAdxdivPg6 bGerC47ei7Y6DvalQ35dgRKzHX E0QAOuDBKpyASeDCXpJXP2CNVh eNKqK6beVFKfFU8jhiwvDDxoEB zkRIRpmRO5UHUilTSbS3MsIMXm KXtwQAMzumz0WcXsCm4flQDljA cyMFxwYXJkXHBsYWluXGZzMjAg FQTpZAKsxK8ksDWbkb5zBGGPVx YzPDvjYPFweXVsc6ekEE4TJkNf FU4wosC6acN4HCM8SFRwnmUHDY GSCLPsS0BAFBZHJJTGFGAeGQ04 ueZXTTAbN6GjPFHWwGJdbznyB7 nawiymTByrB5dnghdruPBrztXy IFBvdGVudGlhbCBDbGluaWNhbC CJaJrrmZLjT0KiU5MsFXYYGARk lE1LZCc6YmbwGb1uCXRhYkWyFx MsIGMuMTQzNEM+NCQZYQE1AUG7 XHGFZPyWQWWRQVPKRtYDTo2ETF ySOzP0RY19FMByXY2rMDLoXHru RYjdrPgdXSMmiFJ5m0Q0SR9uEA 3wG3UpK7l2wAFoHS5qzSdnJMSw FLW1tOLjyAMuO7w3k1LrduknHP SblN1hPRK9LJt9OVIwLNCcq8En gD3qh9nqtTAfnKbkdO6iiWMfwO ZicMuwTIM3frYdc90fUkKGu82n DT9loaEtzwIfmV0bhO1rqhXnE9 WpOG7lJJC4JTPrWO7iwWWbUVR3 AWOcjK14OC6bcc0sE7FfrISeDI OydAKvzb99LOmcvCjuDJabRNR4 uFzoa7EhyUCpzOLmwM2chMCjoH 6sVUWfjcoih4qqKARgRkicy1Io JAMnUAYhlRqdLW0tE6RsTOO4k1 A4bNGhSPG5rMssDbZPQRP2l9S2 sXjwVrQojiHos4NbGApaAXVwpN 9fUV9CHvFxRH5rjHYrgrYao98q SD7hqkSwynRsoxDGhRCfrTEyOJ SgTQaeUD10cHVeKXRvqFguZWKi mSosw4pcSuJfzGrnpDDuaCs8GA LdF52gZrinPD45SQOyjfxyldL1 UVMWYYKGCREiZaR4HBnqXBImUG W4JxGBJcOpTGBXVfguJhxnVdWp LiBJTlRFUlBSRVRBVElPTiBTVU 3TLQXTZHJgsTEyvcIzcthtJQ3e xNdqsWQpk1ish9YrfMfgTCGkIL Zhq6TsuJviwDZetkFrSzijOWQ9 ZFWbLT32NK0pRCOqdZ2zH8VhXA AcL09tRkcbVV2rURXxwrQZFE6c ZB5hAFpqKOPlqhMbicteZLpiIQ dxGEHySDFjNNBldtCaBL1jIIXj GoNiQDPyoRD0IC88EFHxc49uaY LnHZ3soJ5mv6gwe3cgDkIUbPB2 rJ7plAwovhZxCOF4ZOWhSIOuw7 2ksCSvTA0sxH3ic6rcf1qnULJv w96giLI3KFGis7i8nPMdoCAav1 kaYJ9bv5XdOOGqKLWjXGQvoY8n VWtwzEVyARFssI8xTCOheyG5iQ Ccy7D6KK07AIV3AF87AEzdeNVi spOcbElif57iSNSQADIcNOCGUH MsIENNVVMpIHJlcXVpcmVzIGNv urDppCA5iW5qZFdmoSknuHcfXX WovA0mR6ZbAHgcx0OpsavvEU7y geHxtjTui8MuxP8ej0e5MBYkMA NfoRWvU2SfIJRmQ2VfQNLSKIT8 MVY9SQA3VSWdVI7cMKA9HIGmp6 6sIMceJTYMJZTDQCUyDHPfw2Zo L2hzvRDsJChjbSjuyJFdh8VwFG edx7Q6jfHtjR5aOX9KCTDkoZUg tR2bNTVsVY55vowoTI6fAUNeKW ZlobKcNJ43TXsgPZZdxCsrkZCm WZWjVJ44YXynOE4jCWZeg0ZfSF 9mIHRoZXJhcHkgcmVsYXRlZCBt lLLaq8qwQA3zy0EqFWBsngWsJT 8VIVuxDuAxEQy4QuNbSoYfSTYg NQAan2MorBVau0gkgIovKWZoGX ludGVycHJldGVkIGluIHRoZSBj g608INs1GF6dWIAkVBFjxMusjB WqbJEufkBqeBQ8oP3ip8czO2Au OSWszrUbqzgzPFGmkqMpuJ3djP CpsiSpsLF3fO7gYtaaHSWemIXk YXJzPQNorK7zlY5wtfDwgkOoE3 7sg0zwoDJdsRI1xFJyGOE1ICdo WZZ8OQGjh98qeFArpFMboEXibK Csl7NzsN0yZKMoig8iyzVgAVMx Y68eQsdhFN4oAHFgjVKsi8PnwC IkzwBahTP9gD0kWJYqgxNbbAWb bGFzaWEgaXMgbGltaXRlZCBpbi OpQXEqp7NnlVDxMOVuVX80COGr kcYzaDVrfw99QcHADJOdsE5jvq JcW2sedkonHGurK59oyoGqNESe l63dXBWhitLHOVMxWKGojdNtiW l9PMRnrOfvRLZjoB1xmDUlkB2g RVIqvcgilTOvVBseDbear4Yfr9 2aXUAfJAJdcOnvADUeDJIvnR0l s1sbMOyww85yh7KitM2oHVMnTJ LpvN50il3ggOJ5t3SrKT7xD7La YOH3UYinqvJpd0LeM2BkGKHAVP BkMXASNEYmVNTqwqQkh1SkqENz nOMxKsCyRVKTJ7gaa8UbVNEvbK 15eyGaaMFBG7SvgPMoHUMkoEA8 hP3uw3p5HWBemrDaljL4ivFkp2 6jXNFwvnSwNARnDGJ2IAnjrXW5 wV6ei5g1ZE8kRMDhKh5mAJQ9oW NlIBHnclBbdwE0wcNkkoG4gEEq FYdiR67rg3seFRmDij5sT28qwh wgRHIuIEJoYXZzYXIpLlxwYXJ9 [facility] Work Phone: Case Report Bone Marrow Patholog y Report Case: [id number] Authorizing Provider: Vicenta Noriega MD Collected: 07/21/2024 12:28 PM Ordering Location: [facility] Hematology/Oncology Received: 07/21/2024 01:43 PM Pathologist: Elpidio Storm MD Specimens: A) - Bone Marrow, Aspirate, Left, Posterior, Iliac Crest B) - Bone Marrow, Biopsy, Left, Posterior, Iliac Crest C) - [place] Marrow, Clot, Left, Posterior, Iliac Crest [facility] Work Phone: Clinical History m5ubkAIuELAguSEqJZJk Nlxhbn HcDKFyuEFxE9AyzqhmRAkbKM2q TZ5ecTxawPVjaMQvCBReYgRbc7 uiq751rXYej5hwPDMCukwyjGv7 nMaoW79hy8I7PiwxQ9fyYSOgIU dtAOUqGEvcmGIrQZj9VXBkvLQe ksBvVoAgVGJtqCIibYG7FIWyNU 3ppgrhPIfqFRmwUPLhhsU8EXDk nRBkE7HxYLFmAW2clyhlGJU5RC mxVUEnMTC0TnEwVMOog1Txwuz1 MjBccGFyZFxwbGFpblxmczIwID uxHAbgEMVxi2ngQO9wqJQgs8j2 aCBhbmVtaWEuICBDbGluaWNhbC N7CZqcr2Irfvfnn5MxPDZiQLRE KKBqh3z3gNTfgdSjyPXiVU7lPY Ylyf1nOq9tuUUskETemDQcJEHq fURsfaiwDvL4kdSrd7H4p0afgu XtktYvB5YfuqJmfBd6JA2nDDVx IW9zPLB3dOLoxhXwhpTgllFyvP 19zWajAZL7KwGkQiOgPc4dCNRs EXCqm7piZgaGIUWdvQ2hx6HqVS OvYHVhlAGjrPihalSzzcJKDL1h RCAoMzguMyUgQkFGKSBvZiBwb3 JqztYrYJduK8ovaafsMWtmp8si mamklRJqobYiKUHyKLKph1VzSJ stX2z2l8ytpxI6hDDcTkvaIYR4 [facility] Work Phone: Diagnosis Comment d1tfwTYbBTDueACzRPSx Nlxhbn PgLIKrdNJuL4EguoyaXRyuEG8u NA5tlTnlzZOdjLFaKAWmVbSiq9 osd941jYMxd8nmHLZMrforkWs1 lPlyX91fj4R4XovhJ15fiPLkTX D0PEHdOYYllLOpPWTfKBV3DLPz zIJtK8fyTIUfSN2axytkOEqkVP lwRXWoxMT7ZHPxjUEgQ1BnJWZw YRgoKZEvvzd2HfPyPi2rjARpgI cyMFxwYXJkXHBsYWluXGZzMjAg VGhlIHBhdGllbnQgaGFzIGEgaG ieyN8gvJMeHeVnt85dQN0rskBb oaUaiH0ww0ywh6h6qUOprod6dU IrnADxIM4pFJ2wW2ReWFX1q3A4 uBAjMAZ8hTcwKQWbKZIhPUZrpC 1uO0BbVDXeSHvca0WpqkElUaZq a8fpH3KbASTtfCvpdK0zuPBhjW IxjOywBRB4htGar48wPmCwWOud CHT7jeQgjvNgYfjaiGM8ONHzzC 7ov7GmWUNijtFklUPfxgr1oLHk uY8zPZIuceUfnsPzYODwNNMaEI RtGZShelIicda4jGSifACuJbHr QJNkmI0irEByMXEujbf0mWGduP ToRWIocjClbqLxWIIrUGOqxC4l o9XqOINdRQF6tF9eyLYbeOggJU BjX6RtiZZdVAdkoUFqVILosKFq CHShMXKld3FotMHwaCt0bIJsr3 QoMELsFSArqCNjUF8zwC3aQEPu S10dqLImIWTwh4UvCUslhMsajx U3mAScHKDdjyTrFDGtzMVgxeCf BVExwRDcGVYNCOJ1TROxgPadHE dmxPnhkH1hPK6jxbxaVixnLU4j wbAef6gfZ3lfGWZex7CdxLWkrm Oks8u3xFqioVHjmQopt46aYNKh bGxzIGFyZSBpbmNyZWFzZWQuIF N5NDmaRIEoIZDrom3wJRpgNEyc I8BxIPBzBU9pALtbQBIxQfmtlp CqhZOamJA8jpjzPZG1HDH6TPWz ITKmfUKmkDNfi5T0dET5bK3oUG 7iKYOotMesK5tckbCiPQZREQJs YJkwyFo9OWtkC6PqOCIrBXbdlD k4IFRmvZWgeCPYCWQtjDtlFROf TDcseDynPRFlHRAkmBU4oM5cwB Ffi5S1yQY0xR5aKH8zSMQnR6Jl mPJll0d8hEUdp0P7BTPnJFEFXh MkSDluaoMth3wjwb7sFLQvSVbe zSDnp3D7UFdaVLQwrtXVBUBnLD YhLEXte9ZqADN3MAV8DPLcb0hd fymsbJEkpuKpdU0oncMgp8IiaN 0mg18inOmkPlPwILaels4tDVPa UJgjwGBoa5Z8GEptWJGlrqMNFL WdiSokzIajF5l2BJXqUNHbdCqm WJqcC7VlUAIoVFwkRNdmhAZtn3 RpdGlhbCBUIGNlbGxzIGFsdGhv qCeaFPVzTYHdGEkeKZ2zFILega wqmHWwWHepQueug1FxmWatwUgl O0w4h7Kgdk3pTEYzD69abXPtRO KhbEpbmAZrlIYso0SkZEhbyIrg eiUockBeSe7xrU39ICObHoYzTx Ifn14tKH1oUJJjckYfvWS2yA6k IHdpdGggcGVuZGluZyBteWVsb2 kxAG7FWk9gwGVuOFKhVuCFjiFo IPylG7ReZaJeUQRajecai9DwBQ CqAGVkEFKjFUPzAIOpD3YtOGJy u3d7fRM8yOFwHFqmA50xd2ypEj xwYXJ9 [facility] Work Phone: Disclaimer m7telKYiRUOmi8ztGWFl bGFuZz EwMzNcZnRuYmpcdWMxIHtccnRm WUxbeNniEZOfRTWxq0fdx8vlbP WeEWSdz3uwu3UhxETisRBlDHaw kCYxixNbaa89sEL8bB32PV8pRB KxJgE2VGEqurT9Vyo2JCGsCYPh rIGfK149k5vnv0fyarTahHA3RX ToMNFlD6VwXB7tFJNvsVZsJ57h bYPcWER8ELWwWJAjcCMdLDVxXV I9GCKyqTAfU3uqTERqID8dkrrk YUuwKHubRKFfnKW4FIChgTMzF6 YpHULbPVnpPPDonft3OiBvUc9z qPFiyRgiFPuyM8kphW0hHvJ5UQ mlJ4jbzS9nJRg2GAbjFPFtuHC6 xbK3UIVujPPbL4JjhX1rNKPyEC 4uksh1o3peIFY6RIzpVRUpYyI0 ihH0ZJCjnJQdNNuprMNmlvfcAG ArLSVgJ1JpQRmxZy4zAFTiypet CIJ9VQlfkVOxCGMot4BrVVsLXJ rnGJsxH2bwxJ8wghakpVNbWIJh WXJvEIISSMWdn5AbNV4uKKDxcT RgTYI2FCNjc7BuS9Gha0BdoQ0d vI9taQctwD1vmCLmfTCvuQuwoT 1meL6sFkr0o9Gzi4QvbjCtQSCe VRPhfLBemG3vMC8pPbQzhs4yrM O7GLa6RxQhAYz1TUHrr76hvWTp sTBtzJZ2RZJiSZGzVHOszTMfqN ocBYVkCeexnZaaBQVvamHkvl3m pmbpoNJfh7ZbkK6pnGX2uWTwsX 8xS1fukqKxYY9vPWRloF1jJhur WFOqRwGbhQRWJbBCi77snDFsSP AxqLoulJ4ilYTfdsBeMBSex9Fp iE6wdDBZBBQpN5oxPDOFPSDgxb XwJD35HGxVUMofIQOhsBF0dtWS d3XxaCZfrMxjVAhez31iA3TmDD PjcDYZm8IwoNDrqTyxLwvmvzug XKPMTSF5j30zTS7wtOt3POjtNA 9dumY9OXgdu6YejWWtELTXyhLp VA4tQfz1TACnQWTxtDYudWUIYI 42IBAzWE0cakQawaWPNIElfGgi Ln0seVvjSF7nfNb3KRubOP1vTN LpfJ9kMEazi3JkhOTjAOQrdtYj HZ8hrt8ixbZqt97snZV4ON30LW iiyKvcV7oMIVDhQKY6fZEurIXx cKNmXM1sIYNhxrDcs4FtBV6hRQ TlWUQrGDQlt8ImCF3ypCSti6Yk pBI1NTDsZJAeJEDmELQdNKXnq5 TgIMRnun87PYNoGtsevQuuNWTJ VE1xKeHnQRuIZYimJJVdS9GfRU JeOAB3ajAublSPCMlTHZWeKXH2 ZLczRymeTBN6kaYlWZNqj3FzJL azX8ogM27qeHrqtSb7bEL3JJX2 dV2rFlEPrBSdQZM0ZQZ1cpAmgk MzoJOgXMOgw2EwB3phviruSVia qCOvfY7sKVQdIOMcSZWfOQXpi6 OiOQGil8QsRnOmhcIcZAOkNPFh SHGggI15QUT5qAybpCehseLeMJ 6gIELqyzYsRVWqPBIzpF9yZJ2y bNRbmaOxVY7tWC9wO8S3kZVnKO SfpdZmb1chUXY5IWrzWWTnxZHv dBCwAGFuiTkjBRLcju35 [facility] Work Phone: FINAL DIAGNOSIS b7zfdCOgMPImmZAyKVRx Nlxhbn TdBGAduNQcB8TsukooMKpsOE1z BZ4brMrcaFSnkWYeJUBmVzQyj2 bop625qBXdz2mhTEKHafhejOd3 tLkhO15xx4U8SrolV79roGOoMR L7GPZtEXNmnLKlREKsPKQ0IOJa dJJcB2jmIRIzBH0yzfqzVGmoIS siLQYkbWH4QYKmiGUoJ0WgWKHs WHjeQEArfbl8XrRfHz9gqYUemO cyMFxwYXJkXHBsYWluXGZzMjAg GXimXbeyKL2wLEKqINKZm00jTE 1hcnJvdywgYXNwaXJhdGUsIGJp q4SurYtnF9tnjXJsemNeIFWuqO lvbiBhbmQgcGVyaXBoZXJhbCBz bWVhcjpccGFyXGVuZGFzaCAgTm 2ysM7tLWwwqIykwoCxXKOfs0ws w1r1mPU9rhbsrT2nQVbaHGtuuF C5h2TcxMEsvLRjDFQrZ9SnBWNs WXPgvbo0dMPtcUXbZFaiqXziXL giWBC2mZkje8DdtNCeuQGrxJ6m dNZsyY2iLBGbaodti2rlZQEuKp nhu0AbVQVwpvFwuHxaSMPgAEse t3BoxQ2urDIwEFK8oYYjLE5ggO PxLABsAGJhaXLpB05caPekzB4d tWktbPvuyaUuKfEptM0iTBnxL2 H7NF6gG7Z9oWUsBURWDSDeBO8h G5F7mJOvLBVkK7TyhURaDKQ8BW M2NMCpLfhpVsrukiHmhWUmwNP4 szhsXXOfjbjcwpRqn5klSHFdWE toISLbr6LxkjD4UEUtyNFiBROk l57ya4WiL4O9GPHlo2g2bCAkPD AADZP4U7JBFLUdRDMuGCwoyiXx EYCnJ3TpFAUclDJlbZ49VCO5jZ 0nDQYnmY3zDMMuNGBwRJWdozDh NrEzi2mrKCDgeejuakSea5deOT 0ahHZkdYWurmRrUHJvLRPgjU5f kQI8eCxsTYMfWWLxBBEgIKdlel 5rlYBfICSxUENxxFSvFT5oanOs r1ItIME7TDdzBNGcVXUpwp0qAm obZHPcCR3iKNShZJIKnDcjPRjR XsIjBLAiIDBoN4NzmR2qKidcjl 3dxQMrVOIckbzuryWcl6ccUULc boivpQTfJThfWytnk5Auiw8nxL 1roKNqDnEijnStlPBnIM2xDHJz hh7iVs5uiHUzrDAslDMsPSVlxa 0= [facility] Work Phone: Gross Description z0daqPIqXLZhzURGSMQv MDNcYW 3qjNrbhQh6mVbyFTWvoyX0aSJk CNrla1swLCM1n3afefHHBkadCS FuIC3jVLqkHUDxBC9pSsMrQFUy ZmYxXHBhcGVydzEyMjQwXHBhcG JemWV1XGDfCB3lnkzfVChxVLby MXJtqkH2PFPheKByY4DfHJDwBQ 0qfacpXOH8UONOCatkTm2lwISj bHtcZjFcZmNoYXJzZXQwXGZzd2 orhcMVwagshVd9vW4EMSPdP5Jp KY2Gs9ryYQWlaMYaMTQ7EUxpg7 heYPobMMS7XRQcBCNlDWEvGQ8O QxCqYNw4ZIC5WMf6DiH8HRl2AO QZIKFkKRU3Rch2EVyeIHy1QGln XFxuaCBcXHQgMSBcXGZsIFxcbm Q5d1dpHXLiqUFrDMO7SIxlu2io HEsgFML9JUPzCqZbLJEgAD6KQz XhDDm5XXA9CIc6UzY2FQn7EDSO EyPqKcJgHxRcIffiThfqLMz8JP g6RSeNWcScNXzgUJB6MoR6TVE6 MSW6WXFoGPVqBhIdVRWqKRRaCK qfcCPxHY4kcXdsFFLhPW3OGCWp EQkeZAEfWoGdGS7bHu9dRBTTXJ Syg2enIZLezUkvAUQaBICDCFU6 EJXPc5T3LLCzz5PyYLnflGCqOQ VeHBU9QBc8igSpIVUlCmOeqKKn JP4FZANwxiQmVNnqxNankW8nwW FvH3lqEcKqLwvbuCxlVfLgoXVq IwMtTQkvhEOofPOrDH4PAZEoEc KpOpSuSOa2AEMbQXZwFBVuza8c xfptJNQch80pNG2aaqZzlyOxt2 VjjhL1JRVdcAWssiHsUMQ6Vx8a iSTyZZAyf5XxlOducELahAgpbd 7tF00thU7pqKGrXS9GIOOjJxGz HGNnF3dkHXKhVO3JCJQdvFPLQC W0FF2cAOkjZIMrA8ZlB5BvnyH8 RRAaoaRKGjaoZiulfVioa7HocP BcXHNnIFxcaWQgNTEwMDIgXFxk DuNWHyDcQtQ7KWH5VyF1NmJvQK v4VZneE8BKWPZwUIitWUesMmVz FwT0YKm1PNLOSd9gITX6KBszKA O5BAVyRQZgEwadWMr5LMTcQPsz miFtYIyzNiiqBQxuH12dxEStEJ hfMpKiCPmupZshEUGhYZZ2XD3K Of2bHp1rDOXCLKJen6oyXRRdu6 WicJzfCYXhePijOF8dmNGcqG2e LCBJbGlhYyBDcmVzdFxmczIyXH EdgnMKThmvVDCuRG3LPDXbUAcl DIe2qnSsBWOfZdJlVDRoW59pc1 ELv9KjLT3YOWp7yjRmiuknXbPj GMJqlPBPl3WnVWqdCUBpMPWsqZ FBw1ZvFAWNDpWsR9CwqjZaOZuy HMQddh9xoCjuERnbZoSzLRArKO SwDzIbetPjlCUakp41RUBep5Rt yROgYMJ6KNKna3WmyrqzyrOkpP lhYyBjcmVzdCIgaXMgYSBjeWxp jcOvoMWozIHsUJwwLM76DB1iVH FlohSpkXSvr1YyhD3tCQTyFbZ2 NBUeLzY7ALFeFsCutN0qLGEeZO OmdVZyvS0wwwOvibC6l3UrmKv4 YXL7Mo6caFLnCOYxdeNzpbAqE6 Ock8D7lEZuBYUgnJckx1vdEjRx aWdodCBkZWNhbGNpZmljYXRpb2 0hTZpeQBNkZ09ml0VKs3Wfc8oz lCfui1MckRZhGZ7lrEFvZE0Oj1 ldTHYhhUZgUOF3KZybt9ghGEon BOI7NIIdMeUxIDGpHR7AQkLzYB q3KAR0GKj5CpI6YLd8XFNWCmRj BkNwNgEoUZF0FlhjVXj7ECb1QQ wEAxMmHLviOSP2IAotSPU0JIQ6 OCBcXHQgMiBcXHNzIDMgXFxmbC FaWX1zgAkuXKSwKASxJEI6KORl xTHTp9NgIUTjQMdcBuWzQOEVJs RHr67gLM5edhVbjzdoT5vdbNfc PBBmtXquCD8zpEEubY0uLSDLwC lhYyBDcmVzdFxmczIyXHBhciAN EjwaKUDeZB4CBLYqQRqeHOg6ei MnKBObTmHpFTIgS80im4UEa7Ec DF3XOEq9roGqbtmbVjXzDPMjeB NQi4NpMVXDBzOeA3XgxpBaSCgx QVSoak3dvNxjSPpeAnLoUCBlXB MsDyBxwzMxzXBzxo83IVNdk6Av aJZouLOeh1E7DRYhy0PbcVdkIO PhD2Ixo7EuYXKdFMJliOd7lVTt RZDpWOueOY93ekEiHgVoHHUnUI WoVZPpZT0pelXgASkqXvJgJYBz aXJpYWwgYWdncmVnYXRpbmcgdG 3nXZ7vQNjcYI3eDZwfGA08IIOk HhZOh7UimUt3UWY6Yj2dtQVoTS DytbZluyHpC7Rjx8U9oWDsYBPf ipZOAtchTGCcBRx9pzJytuJWZd miPZJpXCxzcVUyRI6UJ3Ojj0Yp FEqmaCpoMEAqq76tqFWvOq5wsS BaAIS7YGVwLVCxsYFwLLBYuPbl kTVbWYors61qY4YsIYNajXFNPU JkJ0JdLQYpxePmuxnrJCOEg9Fh ldEYRO0cgjQzXDH4AM12CDtjKC asw57bJI6YSKX7VjZ3KXwlHLEf YPvXZowcLBS6DJQ1ATPrPET8ME F2QSuzOE9xmYKcII6SBDTtDdZy TCGjU7yyFKQqGT3KZGIlpAZZUW S3CM0zHLysRAIbZ0LfQ5LfxwG7 d2asdHvtr5JagCIkEA8eyLKrTV 9OFREtrrTjAXrgeNzfoA7jDDb1 [facility] Work Phone: Microscopic Description g8smmTTvJBTppBSpWDUyUxfrbk MnXYWxpITbA2MehuuuBEmdME5t RK8caFmctHTwvGZmKFNuLvVkd5 swr465fILcz7sbAHEBwntavAh8 eXbeX51nf5Q8AgjpM0hsKFJuAL wnC5OnUS7eSOYbRbc6GNVwNKnu xsRuXUrxfpFvjeAwIbg1WYU6AE JlZDIwNlxncmVlbjIwNlxibHVl WxA9E5axTKMpFNpolhWceqRmIJ yhpWKjFXZ4J9joNGDyFGCgU8Np BY8aJFMgZfs1GXG3ZCicxnHqQG l1NZccXKSyXFw9EWUgkWUpNSn1 fIgkAXAaainzMzC0DIzuRTSsqv mcWJd4VSwzBXHfzQK6VKQtpIAw B1CzXHJrXC8zuzp0KII7LYafUL SoNrD1BTCceTEdKUVntLbaLQws d485OCW4EoSjBSUvbnGymKyptE 5cYlxmczIwIFBFUklQSEVSQUwg SlnLA9Z8QPphMNLqzBKqu6BtqD CdoFH3OYm4fhXbPEDzlWMdwIRj YWRkZmwzXHRycGFkZGwxMDVcdH JwYWRkZnIzXHRycGFkZHIxMDVc nMSiHAGdWiSoDCXeW4KoINZrBI NsYnJkcnRcYnJkcnNcYnJkcncx MFxjbGJyZHJsXGJyZHJzXGJyZH E9ACUsA3cbkwKdzxlapuLbc0yv cmRydzEwXGNsYnJkcmJcYnJkcn NcYnJkcncxMFxjbHZlcnRhbHRc L4owwZWCeMC5yEKhN2q0R8vfcK hgSmRlGJQesRd0CkR7KPdrrMRk qMN3UEkqiWAbCKJ8WTMbKYGgVW CcINI3THYgG8jlhpDmtLjvjgVs v7qktiBrmjNaXPVrAySqomHfOh JkcnNcYnJkcncxMFxjbGJyZHJi ACPdCJXeEWVdJNN3BHTqA3h1EA A2DLi4QKBfQlGyP6dmmVdjDNNr m7yoGJIhYlV3ULnwHEiboCFmGQ TqzLBvPRjlfnZxmJlgN9o7hJJi qZxmAPQlY2UqJGGMCeJdWVRon4 XmH1I2TKOfJGcmk3tnJJRxIGis a4JqQLnIWLHPEK7UDM5tcIV1JO hPT7XCL2jOoNNfSbJlNOOzRZP5 VWrQVOMRYMbHMHJGmOTgFWB8TI LzMQtuwHsyxYg5h8fnyXDad0f7 ADqeITV7fHLpAqihWyWqVQSkFA ihUWEHGGxcAkzctWZ2KDwvZarb hU7vlZUQIRARDdlSOlnraeJwRQ 8ZAI2WKL2EaOOlKrTcRIUsKBK6 IBlJPWHDRFlXYQBWhOBsHWR1RR ElRZalwNybzAj4b8lsbQYxo4h8 VFakRJC5cFwheLScwikgTIQrSi DcQ2MwWKntT2RucAtcALPdEXpq bQWfFXSvRFblEBK5nCXrhxHYdN ZmOiBccHJvdGVjdHtcZmllbGR7 IQcbJrbvdX2ygAPLZWTOJwjGVv nqagZuWJ3LLN0SVmQAPQ58TYVb VfG8WWTcZDefsTlMXuHBNJKUJh K0JKFrTfc6EeW1QWW0cXG9sR44 RAZhUJXghFZmWLmoN209QYC6t2 puSiebmNM4TLtqLfztuO9swCMI UNQOAliIJqurbmYdVO4CQE2WRD 4YcTWrDsFhARJfPSI5CuiRPEDI OXuBHJNCfDNjIUH9TTRdAOaahZ owtHu1p2nqsSQeg8t2ORnaYIP7 pCsroPAtouoyMEYxGeCfE5PcYD QngUhvhI64Sofwna44UNGfj9hu RCUqz6UlmFy4hyOkQVRfzIWdyT JwYWRkZmwzXHRycGFkZGwxMDVc dHJwYWRkZnIzXHRycGFkZHIxMD VcdHJwYWRkZmIzXGNsYnJkcnRc YnJkcnNcYnJkcncxMFxjbGJyZH KqFXAlGUOsKQJyNFX7NAOhW7xg aqJlwaslagZgc9zokxIixrUfXM NsYnJkcmJcYnJkcnNcYnJkcncx YPosmAWvllMstJPoQ5wxfWAWlV O1pBVtA2j2M8fdqFoyYjCpAQUy sTp4JZBhBNheuIHyOXP5HEMjBR AbSXDmNCU5HNAwQ9vmgfHjsNgq vqLef8ifrsIjjlIgHLPsHnEtrt JcYnJkcnNcYnJkcncxMFxjbGJy EROlUCXfXYIgESHbBBY7PQQhX4 i4LTB3WEo8OVTsEuKxU7yoiYho XMWuu7dlFVOjNXNfPGcvRAvjpC BmSNNzY3cjdeJznMnxukZau4vy cmRydzEwXGNsYnJkcmxcYnJkcn NcYnJkcncxMFxjbGJyZHJyXGJy LRYkDRMiESG4WBJgB8lsqbEvLy mpyaMoa7tkhwXqmmKiFPLxjbYh pAFgdEdbwCJ8d6wdMGKnT9qxmH uElZZ2uMS9MtCpK9UilYf2Ecmh XGNsYnJkcnRcYnJkcnNcYnJkcn cxMFxjbGJyZHJsXGJyZHJzXGJy GEB4BLDyX2iepnVjuqmncmIok9 xicmRydzEwXGNsYnJkcmJcYnJk cnNcYnJkcncxMFxjbHZlcnRhbH XeI8gseHQQeFW5uLMkO8o1C8en dQgvSAGsJALyoCu7UlSeBKbfOT WfBVjgzGOqRTzpARY5xVZbsdhp MFxjZjBccHJvdGVjdHtcZmllbG L7CGfzStzyjB3qgYOTHWDRDhfQ RdgbmfUtCU3UUX4TIbPQAQ53MI CdFZy8G7rADQJQL60WCR7QA0hn VlKxgHkTOfmGZ99UOoZGTBsaUY wnnQkgiAx4y1tdrENqf8c8IQbo FYF6lUgSG5fcRujhwTI6TNnwRi rlaW7rjLKCJGXNPhlHGxjzhsDa OB8TSG8TPP3UsRTdOWV2aYH6YZ LAA94DYXnUTy23VGFyJfiKTuIo Q80KRY4GAGHkTWmzFGh4PPx6eD ilGlzqwdInpOAgOjOvjX9bcFpy dT0gPnGpLVerMxFfZ3VdoLbsUO JgIPzivERkTBozVXC9dAQspcpp GtQkwGXxvKRphAryOcqrdMU3YX mgRbrjxQ1hoEDPORDXRzgCDcby vfGxOP7FCE1JUwKEUZ68ZZPeXA h3TUbORWVOH51FDZ7AP4lyVtGj fFdCQyxWQUxVRSwwLCwxfHwxfH r4k6uqvKLwb9z5KZleOVG4pONy VoI5TDGiOSxjj5dyASQqAVwvj0 ZfZYaVQLIKBK3LXP8qcWZ3RGtA V5AIORh3VRUtVWp8gLlUXnTXRB OEVeWBeUFqNOH4H0GLAGXUHECF IJMdRQF7xHF5cM21QDKzMCTjqQ TxRZnjM202GGDvTYcqNRZxIhGk Z5RpUBAjkWKhoRCcgGgpMuQ5XZ IvCShvd0pvABKtXKrfy2ZwZPkL OVZOWI7JFU7nwLX9XBjDV8QQI4 sCaIKeUWR6qMM5OCIWX91QXShO Ny19AXSfNglTJxAnMK6ETWwkSY lekUptgOa4l0hveZIfb9s8LMtd GPW0nTnquDa0HCSkCGban3xxAE TvDAjek0CyUVkWCEREIK8BAX4e pXW6JQpBE9SXOQg6GKMiCLt6lA uZIeAQPPRJNrXNxCSzTDU0E4RL TZGEDOUsNZevRXp2DZa7sMybPn gebbErsWPuSbBezA1baDyvpA8m LnPgIEpbEbYlZ9JfqCtvRUTiYU tmeRTdLLurXTY7hTGvssanWrTz lAIqtEHciGtsLpbwoSS5ASdpUe qtqZ4jqWAAWWLNHxtMCkmzppRf QF0PBV3IEdHVSP66HJYlDOv7Rj iNTITTN65LCL8GK5dxIlQxwN6B GZKdQOHBEEJJWO7LUJSaLNZ6aE J7gE35CWDpCHKgyDPrZFoeU430 MaW9iNPbaJacpNGeHXoaJhkmkX S5ZGujPrlinW9psJXALQCRUlnR QdrwvfZbQK5BSL9PAA4DiLTwXP Q0iMF0GNKFW76AAZzBBq01RVGo DbfFDJTHSTzCA65IXlWMMLmgPH tfyNoxvGj1y2dudMShj4m5CFwl HIO2cTtebZZxdcjnhlSaRZIlEu llIRmvGHUteoBneB07VaolY5Pp VVFrm3JdB7D1VHVeUUdxu2uuCG WxHMksz4EcKJqCZVENHQ8DWB9m nNN4VQzJG3IQE2tFmQBkAnDiTT XeMQN4R0vSWECIVXjRMAIXyKTc RLI7GRJjSNWldHiseTr7d3kzoV Emm5m0FDgtPAS8vCO9IaZ7DJOt QNrje0cbDHOnECasx7StNMmHVX ALAF8EMW6mqXS3WDwEP5VTOMoz KxZ0VZPyEnIspMl1YNJOQgAYBT YTHggmKaGctUgxIce1Mfn4QTw5 oVhgXswgosWcpQZfLzLitI6kyT ivcB2qAgHqVZckSzNtE4GpgNvs hpVqzZdtn0icuPYfo8XizUFaLP XeZrPdALRhdVOvMLIpW1c9vjOq WZVzJKZ6EDOocNCyDBLbH2p0cj NnTNDrEQJ4KBKlfOVbZQPoJ2su nIFkHTO5MRElAKNjLJArYIE0QU LrU3higsDqfJagzvKeo8wfpkRd dzEwXGNsYnJkcnJcYnJkcnNcYn JkcncxMFxjbGJyZHJiXGJyZHJz WJKvFZW0RUFrB4x6NST6JOh4YX LcMqAbT7sqtVwmNFSaz7npCQRq JIVuEFzyXQctpLI9XpGhB9ulyw XddSnwhzSzx2begsYhjgLrQBSz YnJkcmxcYnJkcnNcYnJkcncxMF xjbGJyZHJyXGJyZHJzXGJyZHJ3 IUQeO3sqxfYoOwuwwbXhk2vuoa RydzEwXGNsdmVydGFsdFxjbGZ0 i8hnXQCaT4qxvMeSdDI1mXZ8Pe OuU9NsiWabYnRwALJrUlRrtwGp YnJkcnNcYnJkcncxMFxjbGJyZH UsJIYpWJZsGNFvQUW3DAZaR6me gjNgzmhuxrJqv4pdkeDphxEpUG NsYnJkcmJcYnJkcnNcYnJkcncx XCtluGCwvwMgjGKoY2ppiJSQyO W4hCQeZ5i4B9fnyAemFRRsAQDb qCd8AWq3TSusoEVoWCB1LYPiVF EwNBJbCMA6UVHcT4odrwTaeDrr zjAia2siprXeutExLWGbDfNdgk JcYnJkcnNcYnJkcncxMFxjbGJy GRMtHUBhNTWnLFFzXYW7UHJwL0 u7OBS5EZi5QPOuZlOjS0pvhSfg GQAay0wwPTKaHUNpPUitTKrekR MrGIJokSGwEBszqyPziEb1wKNg wUnxYZUlN2NdLJMko0ZwU4S3HT ShOYror6bhSGMnFFsqh2MhWYyR VDYSYF2TZS5afZC4QMjCT4WRT1 wQuZKdGEO3sGp3DNGRQ05IMOcM Bh83NRIgKfrIGL7XQ4aQOgjWTK STSQVDCX8ETLKwERW1oRN5rV89 QPExINCsuUGqHByaS120OYTmc2 blp7XllxjmWdlbrXD8NNvmJqhu sC2ncCWWTPCXAomYDksfyiIuHH 4ALF5WCV5WcRAgWVY1jSq4PTBT C59VXVeUEt60VYOoRhdTGW8BT7 yXWivVQQYZSARVEU8TPOLqOCA3 rRD0dG91NMOqRQMtiKOnGIulN5 05YCSiJXvdSMArJgImP5JuRMCh oYkoaIWsDZdjadNcgRl6jQQsxL ftRKZkD2FsABKsg4IqB2S1LGDj IJlpr5mjHDYwNGpug3AoYJnCAT QYNA2VSO2fnIR7OFqMC3BHR3oT mEGrGTJ1fAb5WTVCY45IFMgQEf 39XKLeZyzENL6CK3uNZqtQVQFM GIVRSIFqVBE7wXL1pJ89FMMcIM RuvBZtCBypC534Mv47y2wyxFEv VCfuKtgyhHRbrfX7XQcRERANUA wQTwFoFU1mKIdKUksMQjN8GXTj SEo7ANaNKDJZG13WLF1YY1fuDw LooJbYRO6QUS2MDV1cJpTWVVTy YClkOYq5JAh6cFhrOgmqhzSppJ YaGdKdrG0moFrhcR7lGkTwWDol LcElWWyuws35LNI1XJNgCCpnXk qmaNB0PCdcNvucjS7daKTJVOVW NptXYehbpoGgBU3VDQ3LRbJWRW 73TCXdDDv9IGJ6UWQKV36DRHmM Re76EFBzFkkNHG0YE9nHYlcONP CZOETfABmeAOx0PJl9eYhyUgbf chNboOJlIwYvxP5gP0IAu4wgbA PsKDevJoblmXGkmxV5OZmQCCSD EPwWStWkTB1sJSeHJwhYNyW2IR VsCSq4XGI3GIFRW96GTAfFMz73 FYJaMylOYS3BO1qSXryZRBJDNO IwNMyvGPf3NSt4tTdxFapawiGz uYRlLwIblG2iqPrcvB1qGeGkVV twUbHvX3QnbMmsWQRnWJwzoHGz MZaqCGE7mEAcydwwXiZioGIbtZ WxcHjgRpqafTH5EEodDlahzS8b oNEHJCTXOjiEZnstvdBpBV0ICG 5KIzINEY98XWFlJHh7IBW2AIOH J48YKLsJFi04NCGtXbwXYO1MJG LaJ76KRX2UMTClLKswLLr8NUk5 jEqnJwbweoQxuTOeQaGpiJ0MzQ 5lyH6edKAkgeXsu8yzgOBiVLdo SlvxkLJehyB6HNmFZOACQPeDRw CjLK3kAQbPAhmGVcD2TTHyMPt1 AMP6OZVYV26KXCuPJy75NLZwPv aUMT0ATUTuL57UPJ6XZQXdARtu VQd8UDb5jFvdHdsxviIhiDJsYe AlaM3xyCrfaN6yYrUeBSsdTqZv X5FfpQnzMSMgRQtgnJHpIWWbYL waql70GFS9y3akfNWxGIurDbea pSQpyyS4ENwZWHMVNBoSTkOfJF 5xOOkXDyiPJQzQZbwaWtL4PKFd RcDpoUBfvVqAPgNTYGXRJqT0ZP YqLsa9TyV4LEG7fNS7xM22QMTr MDLpaPMyGHfbV375LDFaYMdyGr ljcVQ2HZiaIuhkyK6qlDVQYSBM PqlYQmclqrIxIF2XGA7AGE5LoH JpMuXoQVXxBGX4XAO3YTEHWzKU WHROEqllGmUwpJcaUbk3S0k8HH o3oHchPhlpoeKfrNFbOyDjbD7m dXgurD0eZkKeSDmqTpVxG1QpzP qxwdPvsOmif3wkfNLhe2HagTLr XYQoPmEtVQFicEMiWQHqR5w4hm HlRZAcBZN7ZZDwyLNuZDDaU5r3 wbAlVHNxFRJ3BVVwtVGtCEOcE1 wtzQRrUFG4IJPmZDWtRRPfCJZ0 BZImS2dljoOybTnoloMhi2dufw RydzEwXGNsYnJkcnJcYnJkcnNc YnJkcncxMFxjbGJyZHJiXGJyZH GlEYDpLUY9LLGfT5y9ONS2PTm9 WBGcRyQfI5kffVzlAKQql6ydDQ IyPFHzVDmqPMhcuMC5EbPtC5ne gvGvcDqtkxWdq9tnuuSjlnIvGA NsYnJkcmxcYnJkcnNcYnJkcncx MFxjbGJyZHJyXGJyZHJzXGJyZH U0ZSGkU0zzywVrWjnhvoUmy4bt cmRydzEwXGNsdmVydGFsdFxjbG W1f9upRUNzC8ekhFmHuYZ7zNX9 BfBxA6YhhQhuHoUlSMAwVvTluh RcYnJkcnNcYnJkcncxMFxjbGJy FEEiHDVoNFAuITSbZHN0IDVpB0 zueiFgxewhtnRgr6jwibLxnqEc XGNsYnJkcmJcYnJkcnNcYnJkcn foQDmoaROynnDsmWOwB9poqKGP bJD9kZEnC2u7A7ixzIyyYWIlRM SscYn0BUj0RDxpwKLfKOC9FHZm HEWkKDJqMNW7QPRbV2hayxVowE jqfdJsw2xxqiJpayJwVWQxXiUv cnJcYnJkcnNcYnJkcncxMFxjbG ZpXXWtTTEzVDUpGHMvZZY2JTTc K8i5VEY8WZm2QIGhFpBcB7vziG deMHGlo7mhYWRvBPWxLWbgYFqw oLBvOKZruPCuCOppqdPbvQv4fW HxqStuJTAhN1AbSMLei1JwF8S9 XPLdJSyxx1iaYYMcLFfvx2JsRY hNFGAFIE5LOL6erKV2SNoDZ3AU G1nDpZIyQFT9kFWkkPnNHtEYPZ FGPuZKuXRbEEN4RJVEXJJHQPHD AE2RRFDcGMT7kCU8dO28EMNoMN AmzUEnHQoaQ555CUSZx0xqoKXk YRynKnnptHLzhxL5TYcWYIPJYG nQNwZyXL3mEBkYWewGUtM8XEBm UQj7XDT3CTJND11UFUjOFn50CX HxHvpTH1JfB05BLE0KDXUcMIqe JYg0XQk6uImhZrhhhcJkgKBkYc BerB6asVctjE6pWoAuQZcwVgQv L9GwtHixWRPtSCavzMTvFNjnPQ J1bGOuygvuJdFttRPnbIOzzPjq GkjooAR3URbqZssbuL6owJHGRC JPWjaUNvcankUvLL8LCC2XGjGP UR02TOUgSFr3EKU4LKQGY59AGT iBHt51JVPlQzzYW3NaFkCSZOFm APhlFIt6BXd3qIhhOouitwEgfG WpDfEkyU48ZT4mq7fkzVZhHNup GytzsEQtdkU8SWhCWCIFSSuHQs YkSB4vWEvMXgwEFeV2IPZuNYo6 TZQ6IJXCH68MRBiZQi31WMEeZc sIM4IhFrWNYCTbBQzuBFt4HYe9 gSeaBrskrqPoxOJcDlLofG4kaS nigF2qNhGoTTuaQdRrIJtzaj70 EYV7IUYbOVqjCutmqUQ7UQcxOx dbmH5seHKKUUJNTcmBXgsoyyEd SV2RQO9RCjQOWR17YFJqFNd5XX U9GBVAR35EURdDWh47JJSmWhtU Z0DpRV2BSNnvISrorZdmyQa5m2 yqfKGcy7m5EHxbGKZ3wFUQi8kp yOWdBBgnJhbujILtvsX4FSaLOY OIORlAGfYcEU4rXDuYVjcCQdZ5 NEWwWVb0PTM0APNVX91NIIcRLq 48OBJbCmmVY7FmPR3PCQocZNak yVfwqFf2b9mzuNPkc6s5ZVjuSH D7aXeweOQjwjlygaWjXVSyCxgp GOunNDEsuiRbvB20Znbca1blS6 IwsHOtPDNqFUlrdi52PRV9r1bc nJBbLUzlQnttkDGsogN3GLoRZR TJVLdSAyKyJW3hBOdEXmtZUEsG Lgy1MFRoPOejQfzADCFQK22FGU 0CY5zwRvYsgU9QQy9hZPMZPQKH XE5FSWPqFXD2yDF8bI39PWYmEO FciAQyLCkbB343FV7ah1W6kSQg CPB0YZMdOYhoi8mrCDInLGxgx8 RcYKdHSUJHQN4XTT7qmWE3XQhN K1DIHJr9IRAdKEgtHiqKJXNRR7 7EFF2WF7fxHiLirP5QLy6jQCWI JKZDHO2ZHYYwGWF8uWO9nK13RI FsUQEzsFZhRWffM431XIOtGDbl ENRaRgTmQ1NjASBwgGoujWGkDB xpbnRibFxjZjBccHJvdGVjdHtc GraomGC1MCtmIegfkJ6sgWSVEH VOPvmSAuzkduLtBL2MFL9VXzQP LW77UZHxLyU8TQLgSMpmM5bSZZ WBOJtHHTSLtFPsJSG5QADcDWE9 uVjuiLw6e4vksVTtq0w8QDjpTE L1uRh8NKXbSCtaz3tnUKJvZOui y1IpFEbSAEAKDB8QJC2ejBM2QB sVF1UHGJyyEeN6XHNwCvQxiRB1 pTaSPfZEMFVJIgF7JEGbLit9Ia V8XCA2sTO0fT36JQJmBRGusBGm BVuyK065DSFqCMoiPOCcChYyB2 GeTZFqcUhcdX28Cfujau28BEAg f0atXSUqcFLbKWL5L3h7ywGqZW AqsBAgkPPwNZExdSHyPOi8bhMz JAGnuoQiuWYmNKWnmdEtRPv1lj XtDCVuHpAgF6vwtxPejCmxjfIc c2czerQtaoDmFMLsBaQrmdznSy JkcnNcYnJkcncxMFxjbGJyZHJy QJAiFWYlZWIySSQ8VCKvY4mhkx ObLoyueoCno4rcdaVfqoQpLADd unOxpAUavPbezAI9o3sdKCThG3 wlyEzWzGU3rAY9ZpGnK0IzaLgw NjIwXGNsYnJkcnRcYnJkcnNcYn JkcncxMFxjbGJyZHJsXGJyZHJz TWZrYFO2HYEhP3tkahBjmaofpy Zxd8hgssYosoVwRTBwFcQsljQv YnJkcnNcYnJkcncxMFxjbHZlcn YzaPVlM0rcmCKOwFX6dTJfD4y9 B5guqRvbCbWaEOCdkCx8TzG0IF lonVAuGQQ5ZXBuBAOjTVDnPCA1 TWHhG1biicMnvUefwbWic1ejkb RydzEwXGNsYnJkcnJcYnJkcnNc YnJkcncxMFxjbGJyZHJiXGJyZH BgRVHbMLQ7CNAdD4b3RDK9SQg2 YSJfJkRgN7bkgQiwPIBbb1dlVY QcOECzIThwNThwyRW6FuLlY3aw ssSaiHnvxeUry4wpvoCjqbHzIC NsYnJkcmxcYnJkcnNcYnJkcncx MFxjbGJyZHJyXGJyZHJzXGJyZH F1WXDbQ4huayLvSsllomLbt2zf cmRydzEwXGNsdmVydGFsdFxjbG S3a8fdMHTuR7xjcSdXlQV2nBS5 XhRlI0RzpRo8EwAoBVVizeApkN 69Nisje4yiR1OwwZAyZZNjXOxe up62TVN5o6pfbXEiZJvjNugzeS IeneK1YJmYLSRVLKlXViGlPI8o FTbJLdeZAPlTFwy1SMXqDCrrJL jOFNXMN40NFU1WF3kmRdRktVVJ Je7LVpmCD63XQvBAHFvrUIocsG qbmFr6b6impKSdk3t0UJtwXBL4 jPFYNz1QXibkIabyiBQ8NLeoNl tlfA2xxIZZUJPYWlgBJcmakfWu AE1OCF4FWD3IiHFeGMN7dYT9iU hILcNHALSMTpFJkBRsGNL6FlCX HGMKRKHNGUDTSL4RPCXnWUE5cE S1wX53UZLlKOXtvKEgSVetB658 YHHxWNsqJNVqBcMgS5KfOKKtwH ultHTqZZxqmjZgkBm9mIZnoZhw VOJgQ3HrRLYyx8KwC5V1CVRrIP ovs9zcVBVfCEfjd2NbBKjNXOQZ VN4JNL2cyMF3IMxGI4VOR8dShX NmDOQ1uIS5nNcPHyTMBNATUyDF fNHyZFD6QbWSRWQHZLGBYXOJGR IjLYR0pTL4sP80KJKcDMXtyWJa GKolG121IAAxMVtqBwcsaWH1WO oeXvfncE1wqBOGKOZVDryVAhmy agSmPI2KAS7EXS6OdXAwTCJ9jG V4gMnJJqCUUHHFXjREtABpNDE1 MiWILZYSWFEARNNUXXLsQLY3qO P4qU91MMSuCOPejNIePTljS271 MEDuORjsHAQtXuXtO1AjHTZetN RfyIWyrEjvWmU2WMEcGXnrg0lw EOYaYZrwr2WpBFiCGBXGKA0JRI 0nbTK2FSrYX2DWH2lNpFApEWR2 fDIwfExBQkNPTVBJTkZPfDEyMD Y9NiHEMHGQDXRVXNJdEYcxBNs8 IXf1bJzeQpruclTtfAGhSrArsR 7re5yhcZDtRAvvDsmynHShpoA9 KIwNMDWQDZsJEtZkRA8uQUpCMg rVMvG4PBWeCGt7NmN2DANOB71F WWdLHk91RTTvLwfOJEdlC7RtJT 5EXSktSAugyOfurBt4n0zryNGd x5h2BEnqUIV6aZsfeAPtwaqyik VkRFZbDmcdLOesQDJtotHyjW97 Jrypz9xjT0HquOExITNfEEazom 15UJJ5t1skiTXdLVnrWvhkdLRc mdB0LKnJFBVMMFqLShPbIW3lVI uYEyvLGGyPHhr0CIUtSTisTCrR YYHCC63QHB8YP1bdGnGipOBAX5 cAZPwYM89MXbYREVgmCFbrdCzt hOs8o1yvkMSpt0n6UYnqWED0hQ Ywr1ofq4MaeJmbVEM7CEWsPXvn c3knIBPyZQrqi3HtNLhICIBQJV 8AGQ0aiMB1VRyTF3GCKMy0DPHk FBcdZGyPTRMMG58SGQ4OD7cmRw UmgZTJV5lLSQzVX30WOgTCLMkw ZWvmbWkezGe2m8pcfFHdg3o1PW wlSLW8sJtueFIqfokakhUpSRIf ClujUBunRZLvozOlcS01GyqrK2 SfNRAft0DaC2C1KSBaTQjnk3kp ZQXiNXufi9ZiFUiJUYGLHJ8BET 7iwOS6DLgQW6OIZ6pVcRGrZdDn AWMlXEW6YgQ1KVIENxMNXEQUOh owOnPayFcgTvq3KSp9HBs0vTzw OmmmjnUeuPBqZjEogF4lTkI5UQ BuHMndq8dmGNCnBIjyi5StNJpF OSIMAO1JJV9dmUB8RRrKZ8NESU xsDgW1PHLdLaNnwHVrkUcIWiDI JMLMUkK7QSJhWnd5QpO3LRL9rR H2cJ62WGQmCFUcbCQcAGtuA180 QZKnMMbpXQVnMhRgC1ZcIIJlnM guoL30Dxxtyd80LEThj6lkFZLt a9ZgdWy8hyClXVStqOZibKOvUA RkZmwzXHRycGFkZGwxMDVcdHJw YWRkZnIzXHRycGFkZHIxMDVcdH JwYWRkZmIzXGNsYnJkcnRcYnJk cnNcYnJkcncxMFxjbGJyZHJsXG QdQCWkWYOlJTS2QOJhX4kwrlMn dtvbtpNbp3gcyvVsqsSrYJYbTi JkcmJcYnJkcnNcYnJkcncxMFxj pKHtfoYzoMQlA9brpNOThND0kR LcL1l9U4ggfPdeEqZhAQZteAn1 IBPlDVjasSBoOTM4CPIeIFEoSA XgIHH2ORGgQ1riiuZvvLacywRx z7zjgvMbruWcKJHlXcFiwfXeXl JkcnNcYnJkcncxMFxjbGJyZHJi UAQdZWHbADGqVEA2IERwI1i8EO X9BXs2BTQbCmZaW9bxzCgdDVSv n8tzNJArDLSxLLupFJsyuDNwLV KnF6kmdvMabOvkhgPuo5yyckXs dzEwXGNsYnJkcmxcYnJkcnNcYn JkcncxMFxjbGJyZHJyXGJyZHJz ZTQmIAO0YEMvK2uljnJpZmeatx Plk8wjxuAcvuNxQSZprcOqlVXf iXjevHT8e0fiVWOvQ2tivXsWvV A6kLL3NwFsA3IqcTw9KsdpWCNz YnJkcnRcYnJkcnNcYnJkcncxMF xjbGJyZHJsXGJyZHJzXGJyZHJ3 ZKPsD3hkngBfcwzenuDii0npvf RydzEwXGNsYnJkcmJcYnJkcnNc YnJkcncxMFxjbHZlcnRhbHRcY2 hzlQSWrEA3nIPuB3r2T5smvOeu QFIkVLKtyTl9JcUbLAreKVZcAF qbtAHhWBrvUAG2vOQpfsvnTaLr mQSzxUSdxHldVzxzqZD2LPdoAn wwyG3edKDICIJRVkhCImvkhxDn EQ4KNV5FVdWFNS64TZYtDQp9In F6YMAAK04DEGxHKo02PTCsAkgM MOYJZBfBCPQjU57UFG2RCKBvMI vnWJj2ZMw3rLzwDoeiorVskRCb JpUbwH3WlKQ0RJucaJLBq5LruW laSpclbII2OCzkPtukbP0fmWVV NHHFRbkIZiarpuPvUN6MVJ4IBR 9FdENuCPW0cUJkwPtENbWEFHKJ SfNWbVOdYCI9ASyTHZAWCPOTPG FNRDMDSS3EWICzDTO4hMU1aM36 XGUxHYQcpXRcZOyrR215GXGkXA zwCWYiFpNiX1UtXTGuwQujvYKk OHfugmHtvLq2mFCmeAchVJRiY7 UhUSFgy6GsJ4U7JWNnSLmhr1ct ZBQcFZmqs4ZcMZqCTLAARC1ORF 4iuYB5RXhIW2RKZ0fHsIOaRRN2 uDD0rLxAAdLFUJOWXtHJmMFeWI S9OUnPQQEPUGHJPTXIJLMQEUDm JQS0qFR9wN02USWsPLOiaHAgBS flH548ULt9JFHzFYmra7wjQFQf HAraq7IcXFiCMDFNDW0YLL3toS L3LXcSP0FUPRr2RIPhXTksEBrQ VFPNI36EJM5QH3egEpOddIPKZR RFTEVUUyxWQUxVRSwwLCwxfHwx hIr2q8rgxMBgm1b4PAqwSVT8gP xwbGFpblxmczIwXGNmMiAgXHBy r8RvB8XhL9Nyu1rucBKoDTjmCp ykhDErabM3NFyBZRUDGRvPBiYd UP6uLHvCEngYUWvMUqr8KJBbOZ vuFBvHMZIRW09GGI3CJ9zxDoEd fFBMQVRFTEVUUyxVTklULDAsLD B6uPV8vM34JXXwHMDuzSGxYFsl L095kw73GEtkXrvmtNT6SVcfMk zkzE5vuBCZWACRNypWUwgaclSy KZ3LMN1ZEB2VlFYzGEX1rOH8oU hZImYDSWWAYyXJfXGrGRS0PUzL MAWRJRYEHURHNCQyQHyaTCz1UU o1dIqzWbajheIqjFCjYuTguE6t tQganW6jArUtTLveQoWvZ8XxtI isRCYxBFezuSPaHTxhADL0aUOc clxjZjBccHJvdGVjdHtcZmllbG H6QOqmPlkwlJ0lyPMZBMUZUocO AybjucGxIL7HQI6OMeGZHW76OR OtVZc2YiY2UEEVD74TEGqDDr36 KSKgRxbYCJXBOKaCQ13SHyPWAG qiZSnymAglnCz8t7gfvFHsf7i6 EFynMWR0cRVbq29paUdpkyGyk2 agsXSmZPslJsngmYSjaqA0WHqE QSVMIXcDZcEoQZ2xRBoUCofIXy A3BWNrMSl3NqE5IDIDV86PNEnF Ob15SKAjBehVSMHJJIiDZ06UQo FXIPmdFMkzaPwodQq3y9xgxMUr i5u1QByeFKA7iBweqURszkjehh XpEJDoFereSXicWDQcrtAjeW51 NiyeC1VyNOEob6SsH7H0HOPgPG wnh2uaPHEsPLpyt5EhLOmYYSJO ET3AXO2jgPB6BCuNC0VVY8cAzQ CiMeJiPYLbTIV1Wrt0QNNNZiMO APZVDzjmMsJulOliThd3Tsh8SG s6dQkbBszykhVlmNCpApAgeC1k XdI6FOYjCLqjr1wpZIMsTKyhv4 FjTRqUATYEJL2OWR0goZN6CAfV Y0HSJLuvKsZ7FCDxMhQzkUI6aG nKXhHJMPRJKoR5NLGtUyo4KeP0 VKW5xZL9zO18CZIeJLLybEClHY ekH224DCCyCXdeRUDwYpHkK7Vp CAJkaErshV97Rsjmlf86NGKrd6 bkQRAyhIUsTCK7H3q7kaYjMEUn eAOiyEMlTRNkrCIlFPx2acSbVK UuqyVreVTsBESpthErKSv8acOk BFZsOfRcC3kblpMjeZxgxvGbr5 xicmRydzEwXGNsYnJkcmxcYnJk cnNcYnJkcncxMFxjbGJyZHJyXG IoNYBiVQRtGHT8RSFdN3rnskLp MkjzbmJzr1hufnMzgjVfPDOuub PedDXxmGojtRV2j7sjVMDmY9kw wTbGrQJ9gHW7ObImU9SscOskTb IwXGNsYnJkcnRcYnJkcnNcYnJk cncxMFxjbGJyZHJsXGJyZHJzXG ErFDM8NBGcK2yqtuIryxgtclUn u6jsesZcnxVyAFSdHzIckpHsMh JkcnNcYnJkcncxMFxjbHZlcnRh xTPsM0jdmKZDeDT5cJSrW9q3H5 surYduWyJoAXTqwRa0FzI7QMnd mSTdIEB3HCEsXYXtKJGwFBF5GP KxZ8dpxhIgaCjbrjNlw3aliuTy dzEwXGNsYnJkcnJcYnJkcnNcYn JkcncxMFxjbGJyZHJiXGJyZHJz HSHlLLI9REPaT0k4BLV3SPn4BI NhKkTuF4raqRdbPMJrs5inDZFy TXGwGTxwZXdfxKQ9HaIyH5ysyb RcqKajfpSzi7wlepYuxwCnTPOg YnJkcmxcYnJkcnNcYnJkcncxMF xjbGJyZHJyXGJyZHJzXGJyZHJ3 HXOkD1rsmtWrKvuswnMbg3xxib RydzEwXGNsdmVydGFsdFxjbGZ0 a0ruLUAgM3hppCtEyTX7kPM7Hc SmB9LasRb8OjQaHDJsxsRrtX78 Jokem9cyT2VuhXVxAGJqgLiasW JvTXftamUvhDt5lGVgzLhiXNQn W6PxrQniBUTlZJghhNOxYOqmBE O3dQAdshhuUoZidGQrzSSgsOsa OguuzDG1HMglFmafjS4oxTVTIM WFSyrPVswtgnVqPF9APV0ZWoHM HY69RQRzXIp8Zjm1BBQSN83YMZ eJOt74NIRwXxkFEF4SPMPIEJAB MeNMNheTQ82VGaECYGijICddoP itlVy4a0ercEMsg7e7FZtfCCO9 bJoqxDC2iZBfOGadMG67bJ4eiN KxhsPiu3xzsODkNCimEhrpdXHv ecR2JSkDEYRRGUrFTvJcOV9nMZ kLQllRQuR9IILkFHx2Owo5QGGK B57JXPcIHn42WGXuQifQDQ4WGK FIQAZHGgCAMvfGO80EEySYLTgh XAykpCezfXd7i2lqoAUlj5g7GO wdTPL0jYznoKAxaxvbdiQuNJDt HyelNXkzTXQxlhSyzW71FmsjL6 SeAULvs6QvG5C6YWPkQCunk3yq ICWkRBlpd6JuGVlQRIWJRC9HZF 9ykPG1JSaTK2HYC5cDzUJmKoAk AHXvAOQ5Wrh2GNIBIeWIGNXFXh zeLjKjuWa4KQktPRf4NJl4jKhe EgqxxvLxwZHgTiWvgH5dQwX1DV MwEXgwn0olBZTlOHggq8OtCQzA ELAMTU2QRJ2uvVR2YZtMM9CHNG xiQjF5DLHxLjFsoZL7lMoBAzGX INSCBvW7VDGcJer8GxA5QUu8oD D0dA88NEUmXXZlrENhDThuB094 WNNmXDudFQMhMrHyT4YgGGYqgI driC93Nfpgba65USKnl5byAVJz vgruKbEpjPRwLNVgYPdxl2Unt0 dcdHJwYWRkZnQzXHRycGFkZGZs H0d6qsGjKHFhMAR8CEDzxCGpUX PdV5x4vfHvBVEjNQW7ZVDhfWCk HECdP1qhjOJrEQK4HZUqWRXuLF AkBRH4CTPeX0fgplWqaKtknnCf v2gkjxNwcaXcWIUjWwDygwNcTn JkcnNcYnJkcncxMFxjbGJyZHJi XNTbACUqUEVwCFR6YPDxA0e1BX Z9ZJq2CHAfDoIvY9ucxGxaVYHr e8apIQAtMfVzIXapYKdmtARtLO NauULjGRorqoVbnEw6fJEmgTdg DVNlI8YctYxcjzEjhBkbp0sjsT KzYEnjZzUgzELpDN7oozErj2me C7heFP32WNWgrhZ5ISIna486SR 1hxg5tM2r3dXMlFZ2cqFcqDLdr cVbsm2ryD4t0QHKszPcgGNX9XE Ugpc9zxGrionWytaUregUqLDRg cOVjFPY0PMRabzWeHTMwd44pXV KvcPpiSrNiFLtvn25eo1C6gK7c CU2aYE7dOE1miDEiigLhtEGwst GwVYekAI55OLXxe66xPSM0qRgq ILnuKVRaSQKvnuKixIznQ0f5KZ Grc6buF3cwZDWhHTBzpkekn1eq X3p3gPltkXFuhTBzuYiquVBqNi vkNXQezLBzEXZwVj6KPAZPXSIS M1llHJBXODANIFH9DMDxriyjSA nsMZYgoHAxu6HzqEXiJNZ5Wluc EFEibZPaOGW3D8n2dnPpMWOmyX TytSFvPAHfxCQqPQi5qaGyOIRw ieIgpFNrYGEgipTfJBw8xiHxCY OkAnXvP6zcbjSeiAkhrpBeb8so cmRydzEwXGNsYnJkcmxcYnJkcn NcYnJkcncxMFxjbGJyZHJyXGJy PNChQFMzDWN6LKRrL9ghuyWjNp kldkDqo2obapFhsqCgTCIpxnIp tAMpvEhiqIC2q5uxCREgE6uhaY wQnAG1yIuePBqoQUttfFTzKqTs P7khczDpsHbmmkFyj5bpexUjlk EwXGNsYnJkcmxcYnJkcnNcYnJk cncxMFxjbGJyZHJyXGJyZHJzXG MdZNB5XXFeS2uvxvTlTxlzyzSl o5cqfbIbkpIfJLCdetLwiMTvaU uhgAA5t2qnBBZeO8qsbMmKaFG5 jBR1HTIhZ0AelMs7TWEmHQQyAb JkcnRcYnJkcnNcYnJkcncxMFxj rNWqTFPtFJXsRZCqUOSkFKW4PT BhI3fjiqFyurtathLhb2ggcpYt dzEwXGNsYnJkcmJcYnJkcnNcYn ZloxreXArcbFJeruLeiQNhN4jt yGRVsPM8lATsM4l9O5jfjXfkIN rrMCPvvBj4RgbyFRkaHRXmHIch qAOoXDCqSEjnQFZ4vNTuqiFENN K5uINwI2OioCruKMQaPGmchYWu HZnqGQB8xVJbudefVsYoS1VotA vgFDOlSLcpoMZzNPzfXMO2zWGu ozduEmLbGs4vzJPuYTPudowkTC QwWpwfJBpsNZvomWVeNMFvv4e7 rl55OYa5vyjkMoNhRxVktRQjCP VrQnEjMWXkyAMpUCAtP8e0pyFp SGEaMSY5TITfzDFdNSUzW1x0vc YgDATbCPJ6JPTfyBIcWMRoU9zl eTZcZKN0EGPsQBTxDTYsRNC5WW XgU0yhriXpdEeuenPyi5bexuOo dzEwXGNsYnJkcnJcYnJkcnNcYn JkcncxMFxjbGJyZHJiXGJyZHJz RFLfVRG1RQFoG9d7HQS9ETr5OJ ShJoZdL5mquZtjUFMyl2gnINUr SOPuAOUdqEm7OQW1QXsslLIvAF M2FHMqZYOeCTJhPKE0BIPrP3bt whFbiLxejyXcg2alipXgeqMbYG NsYnJkcnJcYnJkcnNcYnJkcncx MFxjbGJyZHJiXGJyZHJzXGJyZH K1OVGdV5z0IDO7TXk3EFUcZqQg V4pkhLqtYNMbk3ssEMYsPdf1EK nePYevmKA8CNLbD5enxuPpyBqe reEcr3xoesCzqxGcEADtSpSxvw xcYnJkcnNcYnJkcncxMFxjbGJy BIHsCGJiSWXjLDOfPBP8FCWaY6 prnrUpGdgxgcFgm9bdbwWiocKy AGNogdDcmAGqvWxkjIH1w4qqPH MrW2emnBmGdTU4nEG0PPIxR1If bYq8AQUvVSPoufWrcJ20RavopI Iny0opX8JqkIKuYOYuEtXhFMPx nAshfDJoYRvwzpXtzNx9oCVmeQ opRPOsJ6HtYRCfVOHtEjYEkELx uRLjM4PmpCbuBWEkVCmhqLOsEF ifMGF5cGGpqljnYtFgMT2qJZXk sTaslJ41Wunfgc28XTVeg7keQU ZpyARnvFO1BOd7czDoEYHtmUGi dHJwYWRkZmwzXHRycGFkZGwxMD VcdHJwYWRkZnIzXHRycGFkZHIx MDVcdHJwYWRkZmIzXGNsYnJkcn RcYnJkcnNcYnJkcncxMFxjbGJy XEXpIZZjMRPqGMHwUGI0FSBnT6 ubmqLvarehvmQyn3zzifNwnjWl XGNsYnJkcmJcYnJkcnNcYnJkcn ngDBtyzMAwnlSdtFShL0bebOHN jSD4cVXlQ0x8J8pukUc0UZNwD0 VsbHgxMTcwXGNsYnJkcnRcYnJk cnNcYnJkcncxMFxjbGJyZHJsXG SaWPLlGFMrABP6FGRxM6hesfSp dpjygxDyw6ecifUvejZjNYKzGz JkcmJcYnJkcnNcYnJkcncxMFxj wQDiqlQpxDGbZ6fzjZROgYG1hU HwE5k5T0mbtVysYgfiZIYdcIu2 NGb6ZHckcMQmBUD6NAKzBGQhFZ YxMVQ8ZJXiO4wtleYjiKuaxkQj z2ksglFdbtGlHFJgDzQgnfRwTe JkcnNcYnJkcncxMFxjbGJyZHJi UKKpJOQzPSQpYTZ0YPRgZ7d8GZ Q2UIq6DHCcLzGpZ5bejTsiJHFl e5ylWPFxJZc6RPtsWLcuvNH7Ly WupKNuQZnpeiIdnOawcrz0bQIl iTmnRJEjO7KhLCZwB0OxuBmmRD QoQOmnkQGsGBbnINR0gHJbnuwv ZxOxZYNxP4UqDDAcd065SRprKO IqSWKloBIif7nwIQnzYWHtfbLl gD97Eqzgp2erA3MoxJSqMPVbIP mkFBuyGSpgrDPuZCPia5s1oi80 XIt0lkjkWfNzGkLydAHbYORkIp FxKNZqaGPwZSSwY0h3omVgCSVs HEH3BMRdySEsPWSrM9b3gqHlRC AeBXX3ZADlaQXmBDShN0skgVEw MBC5GSUnCWZuZAFdOXJ9TMUpS3 sysoQggDsnccEto6pbobQshuEy XGNsYnJkcnJcYnJkcnNcYnJkcn cxMFxjbGJyZHJiXGJyZHJzXGJy QWJ8VWHdE9f4HRM3TSh0YGOxKc TuY6paeBqqDZNpi6jhFTAyLYCv FQMjoKr6XIP7ZPitnLRtHFB9SJ EyRTYjRJKpHSS2XZZdU8zuoeVo tYxfrtRde6lxolJubgBdINFhMd JkcnJcYnJkcnNcYnJkcncxMFxj oUOqRZNjFCVhHFKnYRWmQST5UF UrW7l8MWE0GWi8MWAeJfElY5wx lAsfPSEpw5gsZPIoPvs3HCoyQC goxHE8GJQwQ8rnskWzhBelawHk f6jxzzChupThPYEhScEqqleyLv JkcnNcYnJkcncxMFxjbGJyZHJy CVXaTDZzEDGeTLL7RVZiN2njcz TvUttqbrSxt1mrzpJrznTdKPGi ijPexJEwdMjrfVT7i2wkJEDzT2 jxkEaOcTR6wKX7XMNhX6LslYh0 EBPzFFKdsqJokJ27GoqhsUGml7 jcO6TggWRgNJOdPdF3I7vdGWuc EOJuapNudJ73Gwvsn6ksR7JrdE UhJWNmLZFySItjCxElGIdgsO4x E83ftOHeN9EokcUeU1AjY6LgY1 VsbFxwYXJkXGludGJsXHdpZGN0 xJKscmotXiLgBzNiDeVeB8BjwM gpoyCyfHjbp5dwlRRhu4EopSNz YTF8WamySWEcnOEaRDF2F1w3sx BhZGRmbDNcdHJwYWRkbDEwNVx0 cnBhZGRmcjNcdHJwYWRkcjEwNV w4asRqCVNcHwBpB8chxbWesZuq bhAer7oodjFltlAjEYJkHoWezs xcYnJkcnNcYnJkcncxMFxjbGJy TCKoTZBkQGMmQVAyZOE1SKBxT6 rvnyWsGmgquiZwa3pmkeGhqmTa XPRwksChmHQliGdpgQW8p4zhML ZhC9elzHnQpZH6fCowWOjxCMte pGZmCuZrI5gyszHcwPbhbwGiu8 xicmRydzEwXGNsYnJkcmxcYnJk cnNcYnJkcncxMFxjbGJyZHJyXG EkPUDaYFQaKTD5OKQuX4vaywZd PwjqqgXcs4bjnoJqlcWuBQHodw DvlOHxbUuxeGC6m7piJYYlI3px cTwQaGA6lDA1ZGZjB7SvwNi5IF UwXGNsYnJkcnRcYnJkcnNcYnJk cncxMFxjbGJyZHJsXGJyZHJzXG KhMUV6MDNyH5nybrVrgzdoirVw v5vdsmUxcqDeIGIoQqLuwtKnUp JkcnNcYnJkcncxMFxjbHZlcnRh uRThM4uacOSMiXF4wIYlK5f1W4 dscMsqVSquMURegNt1FouhXHrz IGDlWQnnvKUwWBEyVAeyVHB3yT BhclxjZjIgMVxjZWxsXHBhcmRc mH54Cwmhj9cdR4MtmTMtTVCrSA MzUEbhTbOgJW9dtP4tsVyktWSy Z9GbkTreQTYhISvwdXGqQZkfAV K5gKCosgjwFlZrYG44LBFxfSus rY97Ksouxn40XXSja3obWQKcjS XydDD7WJg9znBvARDkuYYecUAp YWRkZmwzXHRycGFkZGwxMDVcdH JwYWRkZnIzXHRycGFkZHIxMDVc dHJwYWRkZmIzXGNsYnJkcnRcYn JkcnNcYnJkcncxMFxjbGJyZHJs IMMjLPXaETLaRMJ6XMWqA4ysla ZpqztbgfPyr3xtvlAetxLjGYJg YnJkcmJcYnJkcnNcYnJkcncxMF yjlROjxcNdtYOaS5jshISInYK5 aBSrP9y4F9abcFi0QMNvZ8ZdnP gxMTcwXGNsYnJkcnRcYnJkcnNc YnJkcncxMFxjbGJyZHJsXGJyZH OiQJDrIKV5TDXqF3msteYwjrpp ywFlf7neshEzujXvIFBeXiFhkl JcYnJkcnNcYnJkcncxMFxjbHZl noKwbSQdJ1iwfIEMqRI0nVJfM1 l6M2cpnRlzWzolEAPvuRl5LVd2 LEvifSHtSYO6BOAfVHQnHDMqCP F9VOIrS1ofwnEvtTfvnqVzz1zb cmRydzEwXGNsYnJkcnJcYnJkcn NcYnJkcncxMFxjbGJyZHJiXGJy YGJpBXMcLMT2FYRaA4j0TIB6PJ p2WTBcRbVsB9tlvQuzISQex5pa YKLpEDo7UMvdOQgaxQS0VaChzX CrQWywgyBhmEmhuxv4aAKypOdv HORvL0ZvXTCuP9LtkYzxENKkEU wybSJjPGgiBTH8kSWzriubYtYy TGDaZ8HzIYIem41wpVedz4oyAQ ruTLKqwoOkxJ34Glqns0yvF7Mu oRDiOPFdPTSiZGDuR5EzjXihid GpxQawb3dmnJWma8WsdNTtDAB8 QuwqTPUqrDSgUEQ1C7o8mcEdTV EerROaqIYqFZZunLPmLWr6uwMs BEKflfSkzYGaCZLaatIyHMp0rr TpRNXiMxXkG5pwgcEymAasbqZj s6tjuwTorlIvASNdYmLfwvcdPc JkcnNcYnJkcncxMFxjbGJyZHJy HYAiLUDlICMfKRE6BSQhU0hieu KhRpztmnYys7shyoHdwyBjRBAi pcFmyBCufHfkrIG6v1nsCATnZ5 tybRnRhVS8jYwvLFxyYFmvyRYh SjUgZ3stnhNrnCigixMjk4uktq RydzEwXGNsYnJkcmxcYnJkcnNc YnJkcncxMFxjbGJyZHJyXGJyZH IaSVRhXXZ7LYSvH6jtfjAsLhbj wtTcq1chdbHpdpFeDFLoowYsbW YisEajkML6p7goQZFmT1bteVnF mLU0dIE7RPHiW6HmgGx4FXIgDZ NsYnJkcnRcYnJkcnNcYnJkcncx MFxjbGJyZHJsXGJyZHJzXGJyZH Y0YESiR8efxlLubdsnfiJhq6ug cmRydzEwXGNsYnJkcmJcYnJkcn NcYnJkcncxMFxjbHZlcnRhbHRc D7sdcJWWqRP7xRMkN2l3X7hpuJ jfYXgpOLZxoCf5WborGHuwFUPv TUdkzDIuSBGaHWsrWTJ4hFKnau ssChExZlcaWHnmXRWnfaSesI96 Oyzpo2gaF2DttHOxGHBlEVNlTG sxXdMfDV4wm0S4wNFwXBTpdJaw mPJiQLmlzpEurMe4wZRdoQncGR AkO5LqKTKjCUxqSXvvVRvwpCBn SVGry6b8dm99ORp9zenqTfCnDt BcdHJwYWRkZnQzXHRycGFkZGZs D1b2acPaXFKuMHB1AMAwzTKiWG PtD5r2seJpLCCnDJZ1IUZazMOz IMUtL5frvIRxBHE6KASsXEHsPG LcXAZ9UBFoF7djnzUrgWdappCn h6xcthJhwtIrNLCjMgPkgcFgIe JkcnNcYnJkcncxMFxjbGJyZHJi TMGsYYCmYGFwBWC1HSHyI0n3IQ O2XJj3MULbEtSwH0zmwFlgNEEp q3liVJFjIGQlOLPooTt6EIW3XI ibjUNmCTX5HAOfMUXtAGFfRQT5 YLXqV2pyrmFvtMmrnqCcg3nfuf RydzEwXGNsYnJkcnJcYnJkcnNc YnJkcncxMFxjbGJyZHJiXGJyZH SnKBFkFWG6HWIzA1k5TEF0MRo4 BVVaQrVyT9ngiHkdHXKrb9mvFV WiJzj7KHvmKFeuhRQ3WQOsE9qh giZykQldfqExz6abowZkjvKcFZ NsYnJkcmxcYnJkcnNcYnJkcncx MFxjbGJyZHJyXGJyZHJzXGJyZH V9VMCyF6nrprDpQpefehMco2rj cmRydzEwXGNsdmVydGFsdFxjbG D2j9wjKQPkU7uzuScOxYG1wUJ7 TIIxM9UbeLn9ALFzHAIniiUcnT 51KulltMKue8hfK1EpwLNaGHBm GsK7FFMbzPshrRTfMEeidpXibK s6tCJukXlgXCFaN0GhLHErSMJr EtRLvxm2hBNbaFZccRGpS4Oya5 1wu8gdPIuxWRQfcnQgpU99Egfk p3dkH3JygAJhZFDhKJVrTb7uU2 ncOKgiZDawcCWjSGRlj7b4tm74 WYz6rperLwNiErCezFUkTJJtZl WxLFDfpJRiLGCeQ6r2byVuEOIp EVS5EJKbiLBgGYUkF6g7msImHV ZiTGM4MYCieDUrXEJuK8cwvDXs FAT2PQQyMTUsKNWuORE6XNKtE9 nljbLsaRjzzrOne0zdjzWzqpOm XGNsYnJkcnJcYnJkcnNcYnJkcn cxMFxjbGJyZHJiXGJyZHJzXGJy KWA5PLDqJ5x7EMP3ODj4GSRbLf XwN0olxQuoUQZpt8bsFVNnXXCp YSWugZp1MKP6RTkbkJFrMZT3PC PzLSGrHIUbLYT0YTAwK4jtobPf iZnkppMnp2isfmVoxkIrOHYbOn JkcnJcYnJkcnNcYnJkcncxMFxj fRDgCSWmOTVbKUKdKNYbQWR8GP LpT0r4SXC7ACi2FROcFsZsP2tz kAmnVCKgk9gjBPQpWkh1MKgjCQ lqhAD2FVDsH4szymRltLzwusDo d0mjjeYfmyTfRXIhSwJurbsmZq JkcnNcYnJkcncxMFxjbGJyZHJy LMOzXLMqVRWnSNB9DFMsZ1rzef WfUwaqhqFwk2mjfuTamoFnCVSg fcMjgLGvdLmuzTT0t3bwNTAfQ6 atmHrUuEE1zGL3CDEnY8ChcNm8 QXGfMWWqvnXykN73RaowdPZnh4 qnT5SwmJJlYVAmTcUpLWgbCHgc JUJunmScxA95Aeavk1hrP2WcgA FyXGNmMCAlIFxjZjIgTHltcGhv K1h3XYOqU8FsoIgkLCXbGPqwvE MxTKacRFR6iJLbimeuTwBtJc6q Y0wyWAexQIoulGQgEPMlo5o7vg 55DDs3sryyBrArDtGakMCjbAMr t4i5gsJwJAFqrNRgqUMxWYJlCf wzXHRycGFkZGwxMDVcdHJwYWRk ZnIzXHRycGFkZHIxMDVcdHJwYW RkZmIzXGNsYnJkcnRcYnJkcnNc YnJkcncxMFxjbGJyZHJsXGJyZH VgZRIpLYQ3UDRmV2hfzxKjywce whNkg2yirzLuzsYnJWTlUvYldn JcYnJkcnNcYnJkcncxMFxjbHZl dvHvxXGzG6wvnLOVyEI3kKCoA9 v2O8mneUi0LWWaF8NuwYxjLDmf XGNsYnJkcnRcYnJkcnNcYnJkcn cxMFxjbGJyZHJsXGJyZHJzXGJy MUC3NAZqD9hruuWikykflrFlk5 xicmRydzEwXGNsYnJkcmJcYnJk cnNcYnJkcncxMFxjbHZlcnRhbH LzT7hocAWTyFS7lDSeR5i3I1op gHfsKrqqVFLilJt9QHb7VPtzlE KiCJI4DAKcVPUuURNkPJT3RUDm Y8kfmyWueBdvbrThq1ujxuUalw EwXGNsYnJkcnJcYnJkcnNcYnJk cncxMFxjbGJyZHJiXGJyZHJzXG VfJYJ9OPWuQ5y4IAU7UCr9CDTr HlIcJ7votLedBHAes2rsLWUdSL n6AKqnZXdujOV5LjXwuNEsMNoh mpAdyKevijj2iKKdqYeaKTJbK0 NsAXHtE8XbcKwxEKUiIKcgbBLx JQkpZHE5eHPvbgqeXhYfXEXdG9 TcKGJmJVNbWYAeSOobp5xnGBqh WIOhkmYgmP77Eaqde3nsY7ApqY UaDUXbSDExEVWrU0NwwLykxcJm fKekz3eaxMWiUMM3ZKJoGRB4JP NlbGxzXHBhclxwYXIgICAgTXll xZ5pZO1Dtzq6nYKgIKgqMtNjPX c3XWPtPHYpIJOLOGoefcHjt9Gn vYNfXsL3RMEgYZNfHUWxDOidWP XekUXgAYUpUFwov24zz9YswU9s xnQwpRm0TvDZlfXoPZFdFBXyp6 FcgiZlVDLlca5fQCnjkMixHUYk YULvizmlk3cnCAEeRtqwq9XsWb xwYXJccGFyICAgIFNwZWNpbWVu TND7XHizxRs1LPJwbPk9nLCuJV EuiOE0fMQbSZgdpDoouHKnzOsy LICfKBGzFC8vsS6bb5gsf9raFJ FuZCBpbmNyZWFzZWQgbWFzdCBj RCprhe1yEDThufoaYGDpEZJqMA HtHIhsejbaA0j6SXD2DSYxIYEe yyGjHDXFRWDbffFsNI9xp4OuWP 8tG8XaQJA4t2W4uEJwxxNfjOQg Jd8kmSOpBTSptwFsDYXTjcx9rB MnbB1dMBLuftwgBQMwr5RcmJPa aDSeOIFyhiQyb8WuGA2mS6HghV 0yXQcssGM0zNSsTYM3uX4kvSOn hPfeUBPpS7VbuGZaMbmnGAKnsU IfMJMyIFtgAU50zB3ek9lvd8se CiLTypWzNS90EQrpkAspeHDsX9 Otz4GoqpDbfWI0uGGlpJhqjp5n cGFyXHBhciAgICBPdGhlcjogTH csdUjgH6e5RGNvTHNqGZPlAGog KRWcUOYsGAT0tmLvb2b2zBDje7 MkZCCqgPClXFvdLRCAISK8XQNl bGxzIGFyZSBpbmNyZWFzZWQgYW 2pJKIfeK6wj9DyZYIgMHCkkNGx lJQaq9DpYXuydK8qdPrzyB9rvO E7fYMcTVLhcp49twJrE1EfcAJc bCBudWNsZXVzIGFuZCBhYnVuZG OdzIYrkKSeiHqfr16uXgEpojRb aRnnxi7pSVXjNWEpARTmUJvmwz RbudLkdWczWRp4UGyyD4FmQBJs GDPbtrIfiKqxDFg6SEC9fTHoZ0 MoFBcbA7m8OCktGlUawOmhzBYw bUZqlkmvddcyGRWeq0Qwrz9zXI ytQFLbqHBoYMZxPd2DXZNZSFDV B0urUzyHJIJXUapmQLXbAxUpgS JqGVZiJFReJYE9FYC5QdUXcHHr mRJcbPAlRVGnGOPtcZEen1R6eV KzfBW4wWUkEAToEyKgF7PcbPxy PJpwon21ssQ8cZFhbVCuNAJinr reZNLnINOrJ6UrfYIyMVIqdAd7 ZWIvlZf3zXJccVX6JJqhRGFePf DdR7QfmUZ4zcTwSSEcdj5dghTf SEm1jW94N5khp5oktaVvkGTxas 21MEYfKE3pskBcZYWoXSQwxyBb HO20GNJlkPGxbFKiQGVwUSHsFG PbLVHynSEizJIkg3Bhn8PbqWk6 fSPrDKhhJR2cWVTrM2UufFSxMA VxPptwAVVwpULcSQSrOG0VRYKx tExaNhLChNJxBQUdFCrmD8ZqQW BgRL2zzGDsNNOadgFhZICWIO7t pS4jj3xvm0rjAwQYwhdqaQ9xEI ywZPqomZH0g5YncCOudVHpZMLq clxwYXIgICAgTWVnYWthcnlvY3 y7TSZ8DTLxORTficTgXGBxgdsl PQXyOWDtMWDzLBgsewbvQ5i8KC Ars4NoiS4of3t5LbJJs19rWyQ2 TN9oD5BfGVU7t3I8hWUzRFAqYZ XqsoYwMt8sHZXtOWR8HESaUMY8 GUa7BREtx58iz5FqYMpemXwkd1 prUvEcCzDlFRDuzYDirGUpc2Rg xjP3qWJmXZxlR9wnAtdlTuAxKO Vqrq2peXMcDKKkleWjDQUHcR4v lV3oBNOvluMjrOAaWPMqCrVGm0 6dBNotNM52dSAjQPHqBGEpfuew JYEzIMHxKy5jVYQ4quJpHGJ3hH SoPiAIrTJuHLUwn6w2mDfnBW8x tj7gmVHtoO0frQQqGTKvcqebOO RhMAZuU8DlPPH1RDPbASGkREfu x3AxoM3yZj0kWKfhw64yGULfu0 3wnFJsvBJuOAuoF7VdWXZlPUCh aA8fEXmqHXuqh72jIUSQkBNhlN MkFGL7HBpyHXYsnzYIKNUzFNRx j16vjHIbnSWyABMtyoHmnowmTX ErnTnvYHQbwE7fiEotBMjzFV7m TSAzSALgRRmtu6GtqQ8cQh8sKL CfyYieiBnbpxGuTH5ousM6ikU6 VNLjkUwxODZhUGMoJGfvszG1kO W7pUbvVDGdViUyl3zjZehfBHKy GI8zuY8fwKzzfP8oaOSvjBYznA UfmJLlxyJyx8NnNQ2yXMAhDGUt liUiMA7ygzR6cuD1WLIyHFThaj Jsg6ZlQLKckKYndv2hFQXeKDbp wZMfv3jjq2OgO2ekoQosCRfwj3 FvbQ1vAc7lKCPERuFhpBwnoDsf U7v8jjNaV2F3vVVxGIFbIZVghd xcTBHlaTJniXLvASblf9OezNqu jsZ0MZqvVCKLpF53oo4yiPV3c9 HmIH2fP2VdVAE0ZFxrEBLinkWK RDExNyBoaWdobGlnaHRzIGltbW Q6eAHzZT06VUztxJZsDDNrRLCd sQregFlabN8jufGjh3HuLE2cy6 PlC5HkfGLxADSGpB75ih0xxUM7 x9UjPS5tN5WiKSL8ZDhuDTHbrq BDRDEzOCBoaWdobGlnaHRzIHNj ZPP8GFQpYLGjqVUtpKOtF1AfcV MgKDYtOSUpIHdoaWNoIGFyZSBw f3r6dNxnvKIrCo2qTXwjrKIxEX DoBWMfMX7gCKMfEeedC5dDKQ0g EOXkLCGmHLafk0YglK2xVq3oIJ NvbmdvIHJlZCBpcyBuZWdhdGl2 JPVkq4IhMDOrpLXgL4UsAH8bHp doODFszB3yTO0dQN1sPUrbhXVx x2jbl0KcO8jubSxzVXwec5PxoS 3tPh7jZLDNPzBfiRccdYzlC4o7 rgGgGSzgCTHgNBP1NGZnIGPxgH FsbCBCIGNlbGxzIHdpdGggMSB0 vQ29OJKzS8KsE7R8MFMqjlP3pT EtDHGyCJMqOkN2gGSuoRxis7Qy HmYzS3CpOAuhQ7jeeTopfVValT xhJVg0ZZzlB8JpYONfLQSbtwTl wwX4vLCwCAvyOBJgBTiqemC4mU ljaCBhcmUgYWxzbyBpbmNyZWFz XLDiCY1zQROxuLi2CYEyvC1aqH tpIKTom12gwNhvAYgnolXkFKKf CnzyJKCaoHNuVTIlK8gOFMMAMY BCXU7EXxwiYNKbUoCduNOrHYBg ZT5fbwNxlfMmQHH6zCGwZRG6AS OmVEljKHVgwnGqQ6mtwwY5pHHo CErwPT59oB8wsBPvWUOlDGSgxB yfWG31SOWaeHtolcHlR6RqnCOj PZLelQ4hOPQtkt3unTAsBZLkig OjJRWFt7BwrE8px6w3OqGKIGB0 iEEzYZSkATXgUTIdFN7oeADghG DiiZReJ9FrkIUrJUBtNWMoQAWr ZGWpxOg9zYRvTM1igASfDWObmf qaBPVVV5tGBZWNOKOJYGZRFjed I8BnLPXuxNYpYAJjTEQkIAboVD QwHBCiSjjlmkSarUBwjSO6gjy8 IFBlciByZXBvcnQgZnJvbSBDQ0 YgbWFpbiwgZmxvdyBjeXRvbWV0 mblyAEWom23voPGggPViTdofQM MbdMVob1KrE7zkagPceBtqlfOl uf2fPNietUFpZITfDLDnUTEpy4 8pQLOsNtJiacDbDwLfyz2lgeCr Q6fkilHlNgmuxdQpxo1jOCcijU StjqNueKAeT1qehOGQnQN5yIEo P5u6C9agpYo3CVZgZNYtzSo5NG UyMFxwYXJkXGludGJsXGxpMjQw DYKzWDA5WQBdMTLum08jIIYyLJ ZqNKAbBVQjz93yHDNoNWDqLHKy EKHwj27cXVSiAWEeYAWkGBIbKK MmNMI4CGUsPtEmqsAkA3qkQTRo NCBJbnRlcnByZXRhdGlvblxwYX LoHpAhR7PaQZJagvwqZHInDTgp pBYrOGn8BVCfUODnSEOCwIVaAQ QiidNoosArvZ23tu8qsWYsx3M2 qMpsDPdqlHGsbXV8wE0daEUTPV CarYdqx3Zza7B9FZeCGWE5XeOZ FBUsSqSwEWlyNqZ2YRXmCoNfyO 5zrO0vaOHwgzznBPupFAGkAhPd w8whf4XcFHRgQvCfi0d0aRqlkP JzDeKuUAduha2dF3mfnLlidaK3 dZnxYNQpwGMjh4SotMCyoKdtTX Wfx9L7LXZeyNMormVfOH55XP5n CYVhmV6ow9Tai05khCTAFRAywJ sfpDnldCagN3j7x0FgvwTrapHj z4ppeQI3BGhavS24p8f7KY4pxz RaKjhrLITdcWP3BS4hJjPdjG5d nZ5pLVKeUO7pLzHlPXDtgG6wkB J8i04dMSc1mDRei13xLHRdjS7w yD8urYUfuWMqeKCxLvCddM7zmV 4vWFgxKO9qokfvq0QlFGTqyUls aAmixLAoqSqdCGRtnUe2IZKniY XsboXbodYbi8t1yKNiAM2kqyFa IXHySksnUYAIBJ7CGDPbWB7tM3 M7vTRlPHtohOSyt2OgJJ5lkTuc GAckirMigByuINPkC10hznDxHA Vhf95po5o0uTB2pEKpK6fqkdaa IGatUC2xYUTvekYttITakj09MX bnz7CeqTY7tT8uk9yaPhXchP4y zC3lwp9bzTLjQD4nsTXgIKDtID EtYVylPJLzJWgsiDCds8ToJN3o hYhsiNFddDb5OCGtb9ZyikW6FU BsN3OliOTtwDEcTMQoCXLNQrnn kA4lB5Q9DiAKOWW2PxJ2IrgmJo Inw6AqxVcsxAjbU4d5ALThBYMk gbSsEPVnS6dueq79gtDoe5IxdO 8bYW5zhmvuTjfuKHLdN7EmfSOl IFdoZXRoZXIgdGhpcyByZXByZX JtvfYuZEZzzhAuE6FxnpRcXCJh SAbsBGF5zCAwa6hrgsCpRO2iBt PpmTPzjI4paM1nBQNjhGwzDvRa cROmjS1fmA2xFZZhe29vTPPtDW RhfyHnRW6fLSOzh22vNHsnRlAm jSueajwrGM2clqgot9NwOPKyC9 A8x0ZtPZCgfgSlNLRaC0IceJVn rY0ggU0pvx9meIFlgzS9qLQmQY Qgf28dQIFsJXYmcWFnyuYnJFCn aiRthRU4sI1kSSeubCtsqTncOG RgsD2vH4AqEALwZLFyr12uOF1l wqEhwgMtzHY3g2EbvLpcsN2oaT HmPtduSXomR9IkZYLcjws+XHBh imGSuHJoASZondTgazLccZ64xe 4ehFYns4S1fAndBWY2gZDcefQx LQ8wRJAwNSTxto6ddQBwWZLvWL Q8YEDznXMtZLYxt74gGUZfsZ7n V1NgHIRmgtVnxSH3hU8wHJwwML DnE59ajMQjDYOdVlvgFMRyBUCz IZNhSN0uk6GrTMjme1gsq38hd8 P0CFDkESMneRRouUfhqdJhmCqb iXUuUgj7YSmfbbOqaAPnUgbcoF IvkGRwcLRzb4NauTSuGMR4LhSn RDmjx6Uaf7jhM7mhDeSujHFwD2 jhckPbkGdyisTdde2gYUvwoWSk JQEgXQYbYCPza80kMHIzRdPkfs HqWvPzic7ofsHpU6vmpeBuChbv wiNyie5mJGlhwZBwllUhxIZmQ4 dovQNSzCM0cFXjP4e4E3vnaEk4 DoV8MATwmFy2LLC5NWhrXNV8ne 66nJpomh5bYGX9bHJgxXEjCHCs lr67UNPtucRluP81AuoeU1IkCO HkuFzyjB96Wdtgtn47BCWoq9yh DQvmg0Oqp8sjJ1pvkwThyFnlhn Nldw3oMHalwPIxHSUiYJFuQJRk c19eHVDtYtPslcAzJoPnth8lcf RzI1qabjCdLxbhzcUcuj3dYWvu rKSjhwOupIQoY3bgfGRPxBW4aM GbG7m2V3ygdUj5YBMsUCMqbHz2 ODUyMFxwYXJkXGludGJsXGxpMj GeLZJbVCH1ZONvHAWjm53zJDPj AUNcILTjQXEze94nEZUjYFGxQC MyWGBzx18lROYdDHJyVCKkRJIb QMDcMJV1AQRlTxIjjmKnU0eaBP YiPVLDBJV1fYUqZVZexolyNRlx CuZcaDKfAHMeysHwwX48TtefwZ IxbJWxBsALwH49GBX2uR3xFMXp eROXk55zAG5pcwJvxlEOqO39bm 7wzAInx9J0xJiuA7lhHMDngiof SWRtRyWjB8JiBR0dsLGdKSGybk NmwX96XwcemOHcmWEnhoy6UYyz XGNmMiBNYXJrZXJcbmVzdGNlbG y7UW8xkvYzePWnFihrn8urOTW0 WYHgehWqpD00OinycRJwdZNleb z1KAVUu7HhPGddE0PauOYHhTLz WN6rk2VsFCgfr3mlt01yt8Y6NT JsZXNccGFyfVxwYXJkXGludGJs QUk1VZHaXTSyAJAsKqLpeOx0QR mBRd1awy3cwFPPMDSilWckm8Wj d8J4DNeiJYU8H0MepCggan7jWI X2uKHnaAKiFAChid1srJ88Sdyv hZXvcPT8c5vaIG7wz1H8ATWbQT Uzp9BwKHGdp6mtCHOdY4RxUZM4 FYWuAvErxmRaSsZfhl8ayaHfI8 fosbNznVkgdrJdrf7xFXczgHOj ZKEoAAFtZFLfi69rRKZtGqWacm JyBdEcko1nwdJhJ2o8XTG6YVs4 HABbNmAeJ9hitUarDWVkw9gwLA ZhMLmyGHaeZMidjTV4ZNJnF1wr RzJlkAPeU2rjdtUmnVvakcFjmr 2yNIgtjLQbQWTsGQJrIPAzo93r IBRiXbFkjwUyOdQehy3jndZnR1 yslbWfCijbivVhbx5jNEwzgELg nzMkqUJgH1gxuIGEoXP4tFJqA7 w2J7hnjOemUVZ4VADwyFf5XDU3 E8aoyAYnqHS4YpcapVEdHDY0AM YfNDKpu41jHGGuVnOusgqdGqHp wq0vicSbU7sgxzKiseyxclEaua 8wCQjqcRIhFHCkCTQxBCEgr27g EFUcurKpuTAkfGuqdBM0w7goMK EhN3cxgCbJuYM6cQE9CCNbY8Tu kMn1ZiE6ZM9rr9Naq5v3y1vyd1 1fr0Q6BHFfMDWrdJBkiP7obVNw BKegcnNpcKwhvOSgT5phsGadRW IwXGNmMCBDRDJcbmVzdGNlbGx7 VW9zahZonLKpEexlh7kdZMB0ZM FxduRtmK17BlubtYApwMSbijf5 APSBZ63LNTAoqPjqKP9dq2XfLC azk8clx78ko3O1JIHtPVTxdGNl eAsgJJDjOVlkpDYgWOs2VOSbIC JpOTAgTmVnYXRpdmVcbmVzdGNl zZy9LU9dzmVdqHAcJjkxr5xoIM A9OMzkpQAbHYr9EJCoe3ysGvob SGG7sZQozEJpyj3qm0x9yo42KK ixwASlpZP8YQgmuVAmDET9YPRb UEOaEBSoBOO8IZVuR1usamYxtC xycaGdpk0mTRzqnWRlFWZiZBNl ONHnr99dXVSdHuStutSgEiDwwh 2qjzJzM1o0RLL2GGf4EOIjHiWm J0ecfLrxJZCva3apNIIgZHneID cbUCbwkOR4KUPiF6reGnEsbECr A8eiipRqcIpaltOah8kjckIqub ZlWNBpWnUczyztTdUgst7jlmDm R7qsuqXbtwqwuxHiyn5gSRsvlV ZeEPGsJKFfWPBmy36hVJSbxzKd sUAywFroaMT8z6bhREPcP6ydlL dRlPL3eRI5MDtaP7OezJt9QOyx TZZpZ3LtXDG6DVBzUtMdliGxFa JkcnNcYnJkcncxMFxjbGJyZHJs QJZiXVWwv83lEMGhKqEsxfJeLk Bunv1wtnGhE3qmaoQoJivvusJg gh8tXKrhtZHupsMuqOUsO8expD NXiAR2bANxW4c5P6ogsAgpFpFr IIQscCv6MZLsUlkdYZP4dr60aE pdkw8nGDQ6vFKugBWvXNIufn39 OXLcdfFhpN22NqbhdJZvgLCpaa z5URLHKWHsrtUzyMDnxNy4KH9c snTdrUYvOkduw4bhBXO1JIUyiz VhpR82LphkdDWlhCShlfj1HMRI WAMwoXbdIW9ni2ZzNGbxx9tsn9 5mn3Q8CHAvUSDudHZteTbaXVJb OZdtnAYwNGn1LLBuVKDmLATtUh ZgQWDgdlTzsrFbrDUtgXe8LT3b xzPwkWHuIqwgo2oqVVS8BWbmsP QoIEs6YGRvy5iiHnluONJ8lMFs oJAgee0zc1u3ub03XDkvrWMnqL W7CQiouWYzBUM4HCNwRWWgNOIn ETF4NQFoS2jpasGsrQirlnGfvl 1iOSrnuQBjVYHnGZYtANUyi66l FEIyQcJdiyMhQaJqeo2focWcT4 h5PKP0XLa7YGIuRiTiN4fbnZul HOSlx8nyPHIlMFshZYkwDOtqdG O2OXIfB2lcBvMmcCSjM0krsuZw xJqdsxVcc2fealRkaaVeHZQtLs ZepgukUeKbkf0hxmQlA7elsyVf vwdnytUhni4xGAfbnWToBSWhUC NjSLGiu20iQDDierNszGKoaGxv uLW1x5clJFEvB0hhxBgZfFI2jT W6ECjnV1EgrGm0YDmsDPTcI9Co YUZ0JCAgLlRffzGuOwQpzjDwIp JkcncxMFxjbGJyZHJsXGJyZHJu x58fCBViToKmkrGbGvXddn7nej BtW7xojsBgQmlehkSpwy7cJCjf hHCunxOffNUpO2ytkFLMyBR2jD CmA9x3A6pgcUvnLnDqRSSvqXm0 XBKnCozbXYM9ns99pMxozj1uLX H0rGWdrIJbWEMlje77TKAztjHi nH29VhzuwJHxqNEizxa0TDITDT IpjfIhvLItjHx9NE6axxPxfXEa Rtrqu6wgKJA7LLWjsoSxsE77An gefBGdoXWpotr8WCQWRMZldSuw s4Omb6R8WL8lv5ZxHSdhs8rbo3 1kf9K0ETApWQTmvDJppZatJYKm PEaslEGbHGs3LZUlWGAjOHCzSj QrGRRivuRulsOukLPjxCd9EJ2n dyYegIFzSfetf5dtSUS2EFbreD WyFEl4OMAqg9rvNoteUFC0cQKb bRPjrd4ym3r2bn74QLjvsRGlfJ C0TIkrwYBtOTU4CEVyBTYxLSIf BGV0HGLrI7erwlFlrPenmrNrtd 8yHPmyoDNpCJXqTJKhJDBsu54i TBLyLzFwqyWzDlIhcg6puwZgK6 r8MUN2FGm6QCIeXsSaB7njqLxh AULnr8ynBQDfSDakQEmxFGxooL T6VAJbZ1kdEnXxnNPcB8ojhlVm jBxrkoGmo8hayjPyhhJtLSPzSu NzevrlFcWcin5efwGvW7ksbxXs ecrqvjEpuk7lOPmccKKoCIQhPN KeTGYoj50zAKKyriQctTRnjJhu cCH9z1tzDKYkR4kxnYoIdDK7bR X3YVwrL8ZhiJv4KMrrDGHcZ6Iv LZC7MSEsWzZykpHhCgTuftFtSf JkcncxMFxjbGJyZHJsXGJyZHJu d74uJDVeKyVxobDgCaCutl5pga HjY7hkrlXqBlrzwmRowp4nXUir tNWvbqPsnQSnB0kdkMPIiIJ1vX LiT3x8O3itxZnlDqDpIFWzpNn8 JZPbPhtsUXE6cp89rAuftm8xLN O3yIUxvVAfLEAfvb93MQGwspPy eE98YzsxnOXlxWSxyjn8DHZNJW NmroSyiYCmkUb7MB6kvdZfrOHf Pmufd9hpKBP0FXUbitNllW71It petAVnlONhrkl5GMWVXPMghVyx UH8aj8AcSBfkr6qos32hv2N3EF JsZXNccGFyfVxwYXJkXGludGJs TNv0SVTpUJTuXXBnUdEmKHEjvb LqwkTntLBzkAj5UZ3tjlOsyWEp Habxd9miGEP9DQftpDAfYEn5QQ Fal1ghQanqSAN1jPJqvNTnrk3k w9q1mk71KRm3kkTcGacyTVMpQ1 YiXRA7MPXkKjUzmsHvAnDjlwId YnJkcncxMFxjbGJyZHJsXGJyZH Tev63wHEIzLiJstjOiCuMskc3s myCwY1krywBmEfqhthYjet8hEQ vetMCzbtKcvVVhA7xzpXLAoCG4 vEByI3c1I9gvwLseMLF3BDWusU u2DYnqSVqkoTMniTM8GSosiTYd CTN0CRXxZYUuHBKrOGM8AIQqC0 mmovYcyNvmprHkoz0qVSmwkUIl BNHoABMaIIBwj13tUYViFlQgcl TgErUzys2zclYhE8j8RMU0XKz0 KPCcAoOpA6tbyZdvQZAub6zgHL AeSuT7YBuzPCdvzJX8QcGmA3bm SgYnhJAoZ0jcgpWjeCmkiaEto2 xicmRydzEwXGNsYnJkcmxcYnJk sj9hjlNjY9fwkaCuoxkzliWtsz 8tXJhjkCNyONNwDRFeDSRax88c SXBvhpDiuIEujFiipYJ9n8ydHU KfQ5jcaBpChHS5vCS1QMOwT3Qn qWk1VlU0SX9pr9Ayy6n1k8dvh1 1tp1D5OGIhSFVzdDAlmW5lsHIu MUtxjgXoyRpbrBXsB8zuwFeuBH XAR6emWDH6F6JsrVxlgt5rXVW8 yALmuTVkIYNcjs0spAFgDHkqcc TsmSsdfTKsQ4dskFpsVFBoFvrm R8TntNJrfjTpgKJsuSx4NB2rkd GcxAIoUelgx6ndEBL3ARXeyeFv xX71RhcreGPlaHRhrof7TVQLSL cnaZf4UIwmYWI6M4NddAdsdc4y LLP8eSGuuPAoUJEijg3beG78Im jdxTZdvWJ9c6ajQA3vq4P0SDRt OGEde9KuZYJjg8wyXXAqV0UmWT M4XSIbHaNhssSlSzQgbfZvKmNq cncxMFxjbGJyZHJsXGJyZHJub2 5vBKCsYuIbvnCyMcBvgk0xbfOi V9zinyUsDjsaejGkca8bCNbpaG RnikLweOLeF0uyqBXEjUI3oJNu W7z4U8iasJvdADR1KIAoqSw9QF epZKiscVJxjMV4SJlgsMOsPRD3 AJOpKSHaOQFqHSW8QVAhX6pdhv JciOuuvmNqve5aNJmjgOQyZPZg EHPiHOKgn62zGYEiTkFakbSpYk Awlg5apjMjK9u3CNU1ORd8JMAf KzIjY9itjXwiPCEqk7qhFRSqTn E1NZipXRhumZB0ReJbY8zoJyHw kNZhG3vnreHtwPwbczDyh5ishc CmbzHpHVIpRaGqyuquBcZucw4u mrFzP6myekEabztvbzSkhb1cPX jmcNHkCHSgVJOsRVJkp95tYTYt vqGahELazIlxcWT9v2zgUZKmY1 gtmByFhGN3lMM3SWLlG9HxsIr1 LfE8QB8gl9Bei6j9p2vvb21jb2 I5UTVxYRFabZVciP9srIOfQNkb xpRtvFxasSYtT3ihvVtrIIEIXR cyOVX0L3NceLinsy5bDAP1tCFu fKHaVRAdop8lpAFjSLaeafUrmZ oxbEQnD3tohFumDARfL0UwdVTc tSVzZYKeyvDspRTktUb8AM1alr VebVLhUtthr9mcLTC6NRQsitYt nM23YgwoyBCvdZXuvph4OZXDSW gijCb6WJqlAOV9Y0OufQbaiu5d DHM3vWThmAAfAREhwu4wrV01Ed nxuLIrkXH4z1vcRZ8vv0R0MEAm VQKas2TxBDDvj3vwVDXnB8WwWL C2XHKfIaLvmpPeQrCoxpQtBwKx cncxMFxjbGJyZHJsXGJyZHJub2 2rOTZqPnJuxmDeNhDtim5awhBm A3spfmVcMsfkcuQghu0wJNuhrK MhpyNcjSBnG1vhyBMDvKL8jBCr C1z2A2tfsMmuGCV1YZGskLx2WH ffSHixvFCazVU5BSfasZDqFPJ5 QHDnHZJnWWXbFUX8HPLlS5wpxb OxzRjmacDama9bRQixhACnDHSa AWYcTAJhm98eVKMtXjAiemQhIj Ekto4axbMtR1q5DDY6KHt9OVAs IiQlX2ngfNcpVPVpn7kgMHXgCv H3GOyvZWzyyQI4OwZvQ8xtKvWc yBSpJ4yfcnGwgEejuvKtb1fxzj TqeyEgWMXmBrZgveyrChUqim0j dgNqK3fjotAixsakedVvih9pZK qwtGQrRMStBFTmZDErw60oMILy pqEzdJWtoMucfYN8o9qcFHMuO7 qwbWiMcSF5pKE3BZKjD7OmmWy9 PpD5SF6ii5Izd8t1w3lns92hz4 Z5WJNiVVDgjVPpiR6iqPXbLFjw cuGvrOjseMUgU8ovzHroVAZHTY HhqaKohAWcxVz8XZ7twzYqxUNv Ulcgl9hgZXN8XVAguxQpuD87Lz jakQOwvJNxghb5VWYSALIhsTcz q5Wap0N6BO9yi8VeGTlrm3oye5 8ri8V2CJWrUQBzyXZyuEbaYAVi CIjjvZSyREl8QHPlDTWzWPBfRq PtECGrciTteyOtlBGozEb7WI8w vbOidREsPzclu9osQYU0OWzygF ObHGb4YUWvw9pbSzxmITR8tFZc kNVhwc5oy3p9sw32FTnknMTkcE Y2LInhaYGfEOK3FIQgCXFyMIFd HKM1BHJpT5iykiAdnYgskrWpvm 0xLIjycEAbBYZfZYKyLCMur81a PGOiWwGfzyXaUdTogl3rfcVwN7 a9VRM1TMn2SQWyFrMxI3wgwFbi YZEpo6pnLLVtQOyzQOnfUQqfaG S5ADJqH1icDsSbqCGpL7kqsqBh yLtnioHla1icqdVaebXmCNQvCj DwsqmaPeYate1jrxMqP0vklmTp meqwdyGqrn1qCKdpkOZxTVRmLR CyMXJag44mOVAiwyEwjKMkkNnp aCQ4g6zxIPUcZ7vahMzXrJY2pW F5QMltN3IetJk8DNqnWFOeB8Vd BGJ6VMFrCwOpkvBcDzVeinUlHj JkcncxMFxjbGJyZHJsXGJyZHJu u05mYYBuDoNwrrXcQeLagl3zij YoF7hnoeQzWirdyfRnak9dTDfi zMYrqvIizHPdF5kuvRDWkPJ5eO KdZ3e1I9bukMhhVvViRKKaiVq8 MCSoSbfyTIS8hj60bBwljj3rRN J8wAWijUIbXGLlxs20YKVerfCp dG26EjcoeBWlcTQxdob9RVJEAS WlEO5df2AyFNeod5uev24ll0E6 YWJsZXNccGFyfVxwYXJkXGludG ElGBi7WSCpOYEbMXQaGJqqhW1g NXxcBSL7S4SjyAoivg2gBVY8rD WeyCAuKXMfjf4mpHNqBTzdjoLx iEhwzFHhK1ztaCnzHA1wZ3N2xH LzQN1fk3EtGTssi4czz74pv6B7 YWJsZXNccGFyfVxpbnRibFxpdG UaY8r3WXepivEgpUNfLiieiPBy eGTxqZVqh1QkV4fgGyCkgIWpP2 jmiqHscZpxbuIbc2hdtbQtoeVe LWWtOoBbnzxyPgXswi1izvIeM0 bnmvQjxhbhnyXwuh2pQMixrFZi KAWwVWRrQJFrm64rKKUbwhAlnE RslYmgeHS5i8wgBZUlT5xooYnZ rDR9vCT5BMOnA3IwpQmgIBQ5JA MuM0TeULO9PIYxNgTjjxNiHxNh cnNcYnJkcncxMFxjbGJyZHJsXG YyUGSqc72bWOZxCyLnmwHpPaXi ew0lpyAzC4oyhqGxIvrzfzNmhx 6rRKszmLJxgmJiiDPyU1bcaFLU mPK8bKJeS8p3X4qiuQrxIPV8ML LpoYh6MOT3A3ectWDmgYS7QAec jXGaASH4QBFdMIAxHHEoNXY3QR IfD5zfysSwtBkrqiFugh0wHUzf qIHzJVNpGSWlRURjb54eEVXpHg JeoeKsTjOnmj4pimLzJ5a0MJV7 SCk1NQUdPqAjO2kbtUfnIOIpc1 hbHYXbOuo0C2emIRdurIvkItEo axUnwIUmf960XV6fvwQsdHZjQe pem4bqCST0dEnyATYfGZzvsESo AYt0NOPnVJFgMLUaR0JgDq66Sa tlDTH3D4QtzUxaor2jHDV9oFPc rNHvUHBffz3yaUOxEBzhquRggM fbdIKkB9cmxUahGC2WDOBagQxu WU6ld2HzPIszh7dcy32bj2X3MD JsZXNccGFyfVxwYXJkXGludGJs EDy1RODgEXGoXTHpFqTuZXSocy ZdijEzmJGqkTy2EN5kpxUnrRLl Vojpn7chNTI9JDdtrXLyIVh8MT Zwu5plAxtrRIS1aNRokYXjsl2s b2u3hc07DHuquKMzjEY8YRrmmP ZcNLR5WIEjRUTfYELuHGO3YOGl Y5yubyTxrVjoieIiqu8jVOyslB TwRGLzXMDvARQhm29vXMYzGuBg ihXuJiQncm7mijYcP7x7BKP9QG p0GEDtFfUaD5byfOeuQRXhm0ao LUPxTLljFHqqVLpofXS9RJMcM8 eqUoNzqMEfQ6pgvlAabWuoupSb t5yonnMczxDvAKQkXyNmtwlpNi Ckes9oabHzM7klldFoorfuvjZh fi7xRZknoIBvHCBuHYZnVGGwt7 3wJURdrzGgbESbfLdpvQD5b4gd ADYvQ4okpJmFxZG7qAA9GOkyY9 KkbPc5LTnrJLMgH5JhGYX2VIQa YnJkcnRcYnJkcnNcYnJkcncxMF jdlPAfLZXzUQDhYOQgn04fTYSj LcFhkcRaDzCpaj9zsvMwV6kzoi VcRgokbiYqkj4bSOvqkFCltmWw sIYxP1ufdSHMnQK2cORoX0k6P5 csbQkmAzQmPPGvdUd8URFjSvge UGZ8kw15uHmbpj4fEDN6vEYfkU LdHYFpii61IRXjqnZmuK54Nhpm gVVwjQBxvnb4FBTIMTV5XK7nv1 PqCAkqo9spz24wu9M4GPZyQXRg oZXltRlzYQXzBBjubWQjEYs8RA GpFHYyQVNuFf9oPNuzc7vlQOB0 B3KpgPoseq4hRIK5nUGlhAJrZI Trzm1wfCZbXLpsyzRsuVdfgSBj D6xurRnxVL9bS2W0fRPsHS8ed1 EuXExah6ige99my0D2NYSuUUBx vXOnnGowrgHmtGvtyXEtC2x0GL pcbmVzdHRhYmxlcHJvcHNcdHJv a4XstCRoqXV6SJxkjNVvbXP5KB pfjKXpZLQ5OQXpEECzAYMcFAV9 BCXzM5jbmiCfsYtsxsNelr3aGQ eqeJEhJJPlSQRlGTLko18zHVXm JqZiepYqFdCnwq2zsyDkJ8g7JY O3IZn7FGJzEkBlX9cbhUemRDSx n2htYNNbGAjyZOwtCJmlqCM2LN XyK8aiYxLlrYOyB5jaqrAaaQin bdNyn0kzabGpslWtMQRnUyYhpz dzIhRlmu7ftcKtT2fkylIqqgxo ghVhol3eFJgasCBxLRRhZTPzYW Cle23cCEUmcaIriIHpuZjbsJU4 f3ouQYDrM1rayZyKoNW8mSR1HM bkV4QmnBr6BDsxCFRjU5CgZDF0 XGNsYnJkcnRcYnJkcnNcYnJkcn ecWVpspHNdMIFjGQYpGAQov11l VRRxAzVghmLxOkPxzs4czbSiB3 huthNrTieqroKytr8eKYqdwDAl plFflIAuM0eujASMfIN2dQMyM2 b0I5fpyYyvEyTbCWTmoGm3GGOb TuinUAJ9bv19gKbpoh0lKWG5iU EfaNFnBJXzzh83JNQasqYbyQ90 MvixiFKdwMSetth9XLGJNXKoDN 9cl5LlSIvfm5njq89ri1Y1JZSg ZXNccGFyfVxwYXJkXGludGJsXG i2VPNeTNKvWIPxEx6yWLpbw0nr NYT8E1LogUtgfv8cFDJ7xGNhbB TjOLIuye9jpTZoEEehezCepCbd lPBuY5olwPuwAJHoz9p6qEEdQX 2ss8CdZNdad5emj51wm8K3RAFd ZXNccGFyfVxpbnRibFxpdGFwM3 r2FXypkuUlbBWgAlcllUNraACm vYXik1PvI9fiHlEthWGeE2ffju OgdPmkzbOza1ffliXujuFmHGOq GyCmfpjlNlRykc5jveKaH1bmfz LtsirxvhExkh1pFWywqDJoRFVv FFXdBCSvz06nSECptcCnhERgmW mnhSH4n2jdRQEkE3ivnEtLeKE2 zJF0DRXcZ2GmfTdhSJF3HARzJ1 CiNNM4UQQuDmDxowZpEpWbdpFk YnJkcncxMFxjbGJyZHJsXGJyZH Ukm25lJHVrDkMfquHgTaHzfb8m wyQfS2myimIjBjnrhsKnci3jMO ymvQCwpzZxsPYqB9dfnVVXlXH5 iXPpQ9p3I7nooQdsCQR5UVMrcL q9BGV0Q6bzgNIpyRU1GYvakTWd FTY9ERSdSVHpREOrPDR2TNHjV4 pbszForJdxpjEyoy9pIKxqtXVu XKRnXQXxETDfl17pAFCpXkNwpb ToVmRuta8tkoImW0s3GFX4LJe5 VFGnYqZyR4jrbFaiCJAgl2fmMU DtNtz3C5slYQfsrNviFvUjmiPr eFGhk411MT4ipvRhfBFpWsedr3 jjJFJ2dBtpNBRrMBdpaTBvBSb5 CLEjETNgUOOnU8FlD1kaASA3R2 YdbHsdbq2eAEF6pWBoiTAsLMPp ch7ivIDvCGkxzyNifAsfeLTtU4 wbnCqoSEGpW2VnhVOrj5Jgr6S2 HP7wf7XeROlky9mfm38lh6O7FT JsZXNccGFyfVxwYXJkXGludGJs RKo3RVOsEXVtJGJgGjWlWCMdyd VmhdKsoGIvkWe6SQ8swdVsiIZn Dyjnc1iiAXB7IDwtaUNfWLh8YC Yoi1usEehmRQY8rUYldNYfvm8v j4u0em68XMqliQKlsHZ8OGfdeD SnFKB6GYImXZVqOTYiHUK4PCDn X5uoadVxbRxppxNazt6gVEpvlR JpHVBjJCSsIVDrj10bMKXfYsYu keDsEnBzwz5kfrQsG0p3WKM1BH m3PNHoGbMiB0bqqPaxMWGdu1zw HUHxVJnwZKuhEYmddOX2MCCjU7 zhAwRroVWvH9puxzGtjSoebpYd p7wzbfXilrCsBGCgXbSezqbcSr Abbo2aifHwR4ldkhRdtsptgoBr pu0hHAoyzOHoYLDbWYNhUXVdr2 1eQOBdzhAboRPqlFgttGK9a6qh AIYwT0wulGwQiLM0sMA4GPemW1 HkfIu8UWozKXWxS7VuUKE9DBPc YnJkcnRcYnJkcnNcYnJkcncxMF gamBBjSIIuTPOrKVIet25gTVEh MxAxjuTiVrHlmi5yvcSeD0hzid OwDzpokhEags9eVUtuoOMwvcXd xFNiN3gpdFDJaRS9nZFhU4f9V8 dbyCjdAiKpKXSrmJl4MIOqOdpm WIH5vn70pZrtjz0oMQC6yVNlpB RrLDAnsr10OCZoicUcqH67Ihdv jJKjlTLbcbd9CULAIPL7DP6mb7 IsMGxpl2vcx20kn3B3XCHfDMLq nVZwrCgxIADfAXdydIRrDYu2PM FgIFQqUZLlGtfhm7HmbpAskBGs hMx7LG6qokModUHnHyrwb3idXZ Z6CYAgbaWdqZ00MyezrLFquZFx jav6YGGCIGpaoGy1IZiyDEO3X8 CjjWtyyo3dIHO9zNYndPRfEEZz tt1vvK44YmkqvXRxmKF5n9ftWR 3sa9S0JCCtFJRho8KpPFBhy2fm WGMrH2CaJYW9RUZxNrYgufMkWy JkcnNcYnJkcncxMFxjbGJyZHJs FMKyPTCrv54pDYHbFbFcuaFcTe Hedm1kboPlR5gwceFiQlladwQm vb3vFEijyETrteZfgPSdZ8gplE OVzAD4iVEoT6s6F6pvePpiLPY9 JMOssHt4OVpmAWdmzPNjgSJ3WN oodBKrUIU8ZTTxLNUtQTAcGKS0 RJTkF1bwyiLoaEmvuwPdtj0zZO afrMOpUAOjTWHyYQYga98wFUAr MvZuthImXaBuzg4eowJhY4c3QV O0JLp4ZGCcWxMcT2dctQggGGRt q6dxFVMdLeL5QYkbLFyxkGY0Fo IkY3wtSiDonSTiY3pdptHexFyg fyQyy9eassDogsXdVHHpRpUwov ijCjGvsp3yfnQkZ1atcsMeekrz kbTozb8wHFpfrGNnOGJnQESrPI Jtz45jKFSgjiCyqAGacNpqzBD5 t1njWBSfP7pfoZiDvYE8hPC8QZ KrU8NdeFg6OkR0EF5js1Oiu0a6 k7nzf43gc9D2ZMObMYNghNLcvW 5otHGqUQroznXrlHarlIUkT3pq dUvzLGWBJJSshgPelGWpsTe6AV 4kjiRhdDEbKmxpe5jgNXN9JSTw enVdsE46WgwbzKAnmADrhds4DY BNCR4seQF9p88soCKsMN2sb6Wm QOies4yjq23ae7H5TXZfVCMdhP NhfErhZFIeFMhdsHNvDCa7OWBe PJBoNLTfRQ0ooCEbkaQfbmBgyN PjbAh9DQ8dbaPtfHMwNojrh8ec VYD6LXyisSQyNQh0CEUqj6yiNw maRMO7gZIhuTQvqn1mf2i5tq21 ONlqpUCwhYW6JQsugIHiBTH5KW GbEXJiZITbEYF4YZWwH1sloiWv qBekhlFrvh2uVTwvgZBwAZCnOV WvLXYia89yXNWfNmGpvpMgHxPi rv5fsxXyP1h6NNQ1IEf2XOKaIt TvR0dxfXfwIRXcq8ypNKUkICpo COsxACuuiVR2UNCjT2clQrQjfQ YuS6aifsCqqHnpxvWod8edmsNk tkDgNOCsDbCtshfdLgSfzm2dsf ZjE1twumLmbkukjgWqmj4iMZje wXKwFEIuRBXsLFGtc09lQWSrjs BtlVTayKcaiKW1l8ezJWRsU1tl rTzGpRQ0tTP3QGtsB2KkdLd5JS oyRCVqF5VwAYG9SZFsTePmooSb YnJkcnNcYnJkcncxMFxjbGJyZH GbHWAdHMFbh52yKIIzXsQmpsFi NiXvfr8olyNmL4opziFkPyxfrs Jpvt9eRTefrYVeneBheFHvK0mm hUGSvBA7aTHsI6c6Z6dxoLllXz EuUMWvaBz3JKPjBtgeWGZ0ji55 aEmxyo9pDVR1mFSihGUhXDPmag 94UWSdkyOyfW09OcbfrAZyxUEd ywy2SLRUXDAkW4tqQXL3H8TobY uirt2yWOV3hBAtjDQbBBJpxf9l xGLmLPwldrQdxWifxVOsU9scqL xuYGUthyOuqHNrT2qjJAZ2L9Wm cWusxl3xLAM6kHYulKFlZDMwbp 2nfSAqXQyrpiDxgJhtdTOgG4qc fOrlSS3uA0U1eDHzOV0xe8DpTP fgy1hrm65od5W3TGOiMVHfmJSw yQbzexScwGgfyAXcN9j1OUojwg TrzYJlFlgjtJWuwDOvmZYmq7Yn W6rtEbKyfOGmW7twzsFgrCrabd Hxm9dpgjJbegDpVNSsLhPwdupl BtMxvf6ztoCoB6qdusLdnefljv Pyrw2gIUufpRTiKIXkYZHfBTTy d93gZHFiznInmNWmfNcbkJP2n3 bvFUKvT2garJhPvRN4vAC5NWPd A7HqlTmkRDJ8JMNvP8KePIB6ZD NsYnJkcnRcYnJkcnNcYnJkcncx HXftbITbMXVsSQKhIFJlc11yEV VtVwZpziIyJtIhmz9xtoNrS1vt ggJdVfqowfAdzu3eZMircENalq UviCUzA2wvgDTZsSK2uLHvB0s9 E7sqvWnfSGQ3OKPnbDv7YBW2M9 wbaSDovPS7HSgxhDYmDTX7ICDq DBUaRWIcNAS5MNFyD3ojvrSlgR fnimTlvy3uEBcnvKSsBZVkDHOx SDOnw61gEIMeUrItanIdPnQfva 2osiXwL8d2BRQ0OAg2LFMcReCp Y6ahpRtjNNNpa1igLMZaOfq7Y6 aaRUcblNiqDsXqfwMgwZVrm056 CZ9wkiZnuLLxFhanl6poPHP6rT zhNCJoOLljrWGoJIq3OACaVYRx QPRfG7LeOJWjywJwqCNrhTp3CT 0wbyXxvDWkUwgfo8mqUZJ6AHAe miVwpN29QhocmFXwnZRvnez6GI LDHCThfRjnZC1jo4YsGInci5fw m11ek6W8BCFjARPagMOlnLciFB VjWIgrxZFvFHu6KCKrYJSnKFNr MK8sgHSfibXfIENoaFsgntYvzS VhbSs2KH8zwfTncIRnWkeaj7bc CPX9LAhqmSXxEBx3MWEpe6wrXb cgGGS4xUFcjENsio5ps1n5hx05 QTugiTGkyCY3SAluhIJlETB2KU AlVLBjGKTbAJP0DFMdD3uegrBq gRvgkiSnjg5sMKmnaZQfOOOsXU IvRYHnk73yHCVoAyXlvyFhVxWp be0vysJrJ8h5TMS8VQo9HYSaVv RiM0koqCzvHLRwy3zvZYIwWZps HIdoFYicrUI9TQEiI7mvAxQicR AtP3ncmuUyzXfyemQvk9qnnuPs bgZxSCAcFtYlwwmbWfRpzs4nij JoG3srnjFstofuiwErxn8bRQqa pAJfUJSkRALtLDJra61gDKFqvr DfnAGdsKqnmXF1o7vtSDQiQ5bt zXiGyZL2vUN4IGvgN6WmjVi0WP coCSIvC8WeBNN3NFUsTyPyjqAc YnJkcnNcYnJkcncxMFxjbGJyZH QxFUToFYHde79oXXBtAvBahxKz TnLutm1azwOjD5evewMgWsurzm Ubel7qMOaiwXGlgiLhgHToV6gp pBQWyPA8dOCnS6h2A1pdvUsnZw VhZLCeaWe4NOXnWtakMEZ9cn17 dTunqa7oUMY6dAScnFCyXPLyxj 15FJHkobTriH39RttohVBmsCPz trs9JEVmGLQiBR4aOS7vEDGjmb OgpDAsnDx8QL5nbzSabBGzAbyp d4alYWK9BBFziuZxxX49EzcakY AlcPVjHb7tMCnqc6nrKVC7D3Ei rOhyvr0zVYV4yKOnxUEpVZXoko 2zlWFtJNaydoTvfTjxrGDtF3pn iMfwMK6kD8V9cFGjDS3lk3CoWE cfc2tlz96ej5Q3PFGtVDJxoEDd jZgzbhZtwJnysAIrH1t3CCbiiy OcjOIlTzevzZVxgGPbwIHhd7En D2qxRcQymGWqT9aetaNipYacgz Gzj1oakcBwrdKfWUGcYzWirxhx EqDzir0mnyXvF1ckyrEacwwcaf Seow9fMAkgzUIgAITvUQSvCWXn v26vBDFhzhKbnKWxwZbxnJJ7v2 mfMFMbZ7gucTsOyRF4zWV1RIYu C3RrzWgmVGI5MLEbX4GsNZS9DE NsYnJkcnRcYnJkcnNcYnJkcncx MPmsrGKmMNQrVTRrZZHqt98uNA IxDnViczRvDpExwv3vppUsK2ig biZqBexmagAknl8hSGpmvUKiaq VzyJTdN9hkaOEYpQJ9xOXfH9g4 U1kyhMhaTXE2WWRvyFu1PWU5J1 wbeEZegKC0GBjlzEDrQGQ1PXXn UNXcSAVoHZF0CSVnB4gfhzXaiJ pnaxUcju8zKOfusCJhKZDjPARj SVWkc39tWDMgWeWflwFyStOyvs 8sjrNoT2i2GES9MQp8LUUkTgYo T0qhvTavONUbf9buXZFkOik1L0 nwERdaeDenIkTyjoGsmXXsn136 QS1ftaRykGEzLghfn6loVJH2kD mnUQMqRYxzvJOgORd2MIRuIDOl UPOhWNUHNiNegxMfmCGycAz9CE 0bpxLycKDoDlkvx5udLNZ0FDPq bmPgaG81HinsmOCbjOJiDL1iLZ jig7ttENN5F3IsbChjpu4lXEF5 aRHwfLBuBMYmdg1cwBQpFUczrq ZnpKilxKIcO7tikVaxSD8hH8Q1 bZTiQI9kk0EbGAzcn1zcp06se5 S0YIKvVVXicMKuiByaajOusYwp hQYcC6g2KLqvikAqmHUjCmtvxZ NaqLEimTCqt0IafRUglBDqu7rq xXHyzLY2MGuloWGaDBP5NLMeVJ YlIHBaANF5KOWvM1ahbuJjeVcv opUqnr9qZXyajBFsBCBmUDSkJL Paf58vWRKlGeQycsLmPsHule8h edVuS4h1VPB7BJy1WXThXvHzK4 cdxDqqUHSbj0gyCKXiVYdnTRdk TTdrmIH0KGJdL3dsDuVteQAoX7 brlmWzwCxxwoPzc7nbkjQuedGg SPAzWqShbmqhImFoyd3pnmEjZ1 fgbtClvbyfpaOdqy4uJLqdzLZy VWFvGJYcRNQaa78oRUPvrsUnlY FadBuzsBT5w8bcWGCnS2erkKsS uHX9fNF5VGgoP9RiwFy5UQppAY KyH3IsFGY6YKSiLnLamvPwRiMp cnNcYnJkcncxMFxjbGJyZHJsXG AkRRMnk05nACUwVrYglpDcFgQe hj8miaIqQ1vnqoAsDtgxafAcgz 8nHXylhRAizwJdsHRiG2igvKNK wMB5gMAlL3z5K7kbbHnfIqWhZA GfyNp8GLZrEngqUJU4qe28zPpz cu5jBMM4lHMxiWWoAPLmvk43DI MgosQjiB78QvzuaDQmeLQburgz IKFkHakuewBofEOykAF3yjutZZ BoBVr3x9snLA1bZBViGGUqc89y BU6hsgEoarPlf9KnxqQ1AXSfWF NcJXvbNTFpHGMgAhAgIX2kNDMk eMXoIFH0ZI60dsLxHPTjLAFlUW OBURO2YIGaUIHewARzZHPkEAL0 ZXIgcHJvcGVydGllcyBvZiBseW 2mgF3axHJxva2sGEotZGy4kZSf h7K7xAHbCORoZQIsa91hg1QfFR WgEtDiVZ4zuQB2piVyw5SmvOC1 ICTqY9Aih3LhATOaP5HzkVPvIQ j3FBwoI7E0DvNROGGeAZUilgS6 IDIuNzMpLCBOSyBjZWxscyAoMT QpWMWrhhKtIn0mOCzbujLfRDEo KI5wEPucglMgrTOsLIJpzCAkwL DecBPrEJRqDQPrTM4pOYp8bCXi j3K2yAGoEeT8UXOkDjBGUXNrzE exAJpjb2rpX1eqkSJmvV6rkQ0p aVziup88wEEeJ9UlzXjhCPaakG nrT4CoTIIFHyszfV3uN7HoUv41 UukxRUVfc0WgoNt1QAMaq9YbV4 P6CZniA6FkSAdhdO9yNQNGBWJ6 IrE6XWQNAEnsEKmaeWBtf3xkfd QflTQrJHZftFS0dtHhFDzsfPu8 BEuaYOUMXkdrC4C9JGTOYJJiEH IdiLyqPCEhj8htj6kzj5XnWLYT TgPcGJO2eRNse6Rse15wEYqnYC QuDlOko5O3pCC0jV1iZCgiZT5i S2V6tNDsLUZtdjGVKoNSHFlxKF 7uLI4iE9Y8iUZiTWUlkfB2lBUz djZuTSwvgY2fITHoo6BsUHCfRQ UcQQScOSQmUUgje4DyYIHoTa39 PK9kFEnilzPpwTRnTTUPEWOzcM zpt6Rdx6C7KJf1KFPeNvGgxO9t wC3etTUpuftfSDNoPM0zGWDgU2 UotDPvBVD2wCaoiGKyjF67qqZm v6caAg0ay7JwOUXbjgHmqH00MJ ZpSXLld3BetBWwbvQnVNYeQRPa Z7UqsgrfoThsilZuxzCvhLGbxM 7uhY7pxPixna43tUHwL4BxtLge CNvlpEzqV9WlTCDZFLruQ2MEXk MiI7FUWz2oKOCay8PugLw2QMSq l0QcP9K9MAceX8PhUXpdW8JgXF leD9HzGKAlBZJxdZkeMCZhGPDm NOxgoQu6TAWxx5Yyl8NjWvWjIU MjcG63kl8eaY9koUydduKzwAfx mXGrfUXlncIuUL1bMPHmKYMlLK 5uwI5sonjpcKKblDKtVE1wmmhz lwQmPFTmaJczwIRvJSMbq3XlDq VXnJIdmfRzEEdymW1sVGWlS0Lx dSNtAEUhXDcjmIIaa6ZnZC8knK xujBFciMd1BTMganIwAKPdUFCo LPKajeWmpW3lgIZ6eNgeGLBbvo BrYXBwYSBhbmQgbGFtYmRhIHN1 zyIzJ2SzhE3uxU6jV4viSmJwxY 2acLnsyYVmU8abjZ7mQrJObpIz bIqkQ2x3WEEiHLUsUOL0RYRsZt V9f8DzxZIrvnHbkOZcRUNvCUP1 ovYuqzHjwd73ITwhB9NzQEShML 0qPV3ur2VdDJaoe1qsr37ol7E3 YWJsZXNccGFyfVxpbnRibFxpdG VpLea9HEbyfeIhoYJhTimewUWz dZMtvWVjs6XdmPWmMXS8CvTfZW cys0Yyp5iqR0tlAxLsmOVsK2ki qwFvgUanhyYlwn3jLWdciYPyFN QwMOWuAVZrk05qXPCbVwAlhrMm NsGtfl7nyzMuM4dofpLrYkyavo Fgvp4zXZvibDAggoXujMGeS8kd eVCBgQA8sYPuJ5y4G6okrRh9Jk N0PLSdgLt9UFI0RJmrEIJ6il24 dXdfwy1oFAH4zQVasTFxWHZkcb 67GVOuchYvcN51YcryL0YmCRRu eHvtvQ68Jkmnmb47PFVkbuGpWR fxESWcAXUuRVIaf01iiJD6NXHw ZXBvcnRccGFyXGNmMFxwYXIgIC TaL5t7t4ezkcR9oBDnKlVLHCSd xjPja0U7BJKgg15eU3VUBA4fuQ 6kHKH4mV9xAN7jqNwyYWIcXQd6 w3hfEMGboT6mw5HuCCSrNNjecA JiWCZBGSkIQ5FIVumwXPZuWXdp vY78HUtsEHIjXpUoMkrqFtVdQS VxqTkwLEqvkI8wHMhHPLMBSRMN UXAGQN8MIfHrsn6tsw6wgFszbH FgPKDcHLI8g9D3gADiMQlbklMl pOxsZDOJP55TMQ4MMcOXCS2ecG B8NMCvMNTaBOGohRjhIOfjaoFv EV7rsLe4VIEqVqYvxQU7zXMsN1 VsdHVyZSBcbGluZSBzdXBwbGVt WP57QLVgl5l0yFESCC2QD6YrHJ 4lMAXibuIaDYJpfBopj5OsG3No gJXfi2TqYXLffrYzvJqiXDZtlc 6zWAmybH7fIPSeUAPbYCYto5Pv BSTnt5NycIEiYKSnORLumVv1hZ SiVrTiphF0YZ50zFYzWVifnzVi ofQuwOzpULKhxU57RADuRCHnpJ psDXL8HduCRWsxyvFuGIuzeKNq hHYhKRTxEOU7q7V5kCFpDYVxRR LuGHLqT5CwhUCfGoDifzHtzaZu q50yn9HcKHwfifYwX8myu20il9 9oDQW0KNwrDQTgLmQebVpxMJLo a86nrMm9yRExt81piQL5XCOkDZ 49REftkBavaz4xE7xiqamoEHgl FPfpzcUgw3scvbcbnEPmzmTmAs DFrBKvYMV4ZXFhev8iv6rthdab yEIitnKxpjYcGQIcS6UwZWNcmd 8ax7JoqGTkYIxhyiDsACYlm4Lf OQtjkCglFV9xDU1yDGK7goLczL PrJFrqD5pvtnmbKGZjdXCnvVRi MLvdtStmrnU9zEZghWxvoZXkYS 9gPBpegB9dWHVhc06idPVpo52t YWQYsRUwn0Qjg9QxXMJboKGbIP AlMSVolM3ccJ2toYLkNHHtbaPj bKMfTGHiVK0stBYmeNymkdysZN mkdZ3hZJGCU8HdxVArYUwdKt9b XHBhcn0= [facility] Work Phone: Performing Lab y0zquKNjNSMfjUWtXIMp Mlxhbn JgDBEppXZqG6VpebsjYFtmZX3m UM7bhUdaeBLqvFNjKEAoXxLmt8 fsr180zYNzj2fhIHOMvghdcWt9 nJpbA48ob9J0RtkzZ27mgLGsYM L1INSpAMErdMQyYMThSLI9HXTm mOWpV9syTDYwFD6vgrcdIRkoUO mrSMHipRT4HXDmgZWtF9MmIZQk NTxzPJVowfm4FpLkLh9reBBaoV jgTRlmN4vboK7mJfH1SXdlP0hw vY7aZBm0ALfiJVYwwBR4zrD0IB RguECnM5HdmN9dJDUrKK5llgk1 q4rxKTR6WOjnVLTgJbG5phX7YV BccGFyZFxwbGFpblxmczIwIERp PAqja0R8oJMcdI68ZDZwbkF2WZ Btc87yiUTvPf0xsZJvNNL1EhWA l8IedyAEUI8mkwFjFGdyz0AkyO CfYRivXg2uYZIjejteDJVdBXlu j33jW4CiHZYgbJZMyoUxxEDgRB Wpwy3iOG1QTYX9JdN9CAGfR2fI GSTlFoHPFCC3VYA1P0iwZRPrFO SedxMPKEQczmV2d6L2SGPuhaEw lM3kXzVErbemMMDnAMZujGAeRL BNRFxwYXJ9 [facility] Work Phone: [facility] Work Phone: [phone] MYELOID NGS PANEL BONE MARRO WOrdered By: Alla Emerson on 07-30-2024 MYELOID NGS PANEL BONE MARROW Myeloid NGS Panel Bone Marrow Laboratory Accession Number: [id number] Result: Please see linked document and/or separate report for full result when available. Interpretation performed by Tracy Curtis MD [facility] BONE MARROW CHROMOSOME ANALo n 07-29-2024 Chromosome BM Laboratory Accession Number: [id number] Doctor: VICENTA NORIEGA Pathologist: [facility] No: [id number] Clinical diagnosis: Myelodysplastic syndrome Specimen Type: Bone [...] Philip De Oliveira, PhD, FACMG Performed by [facility] Molecular Pathology and Cytogenomics ([id number]), Division of Laboratory Medicine Manuel Renteria Department of Pathology & Laboratory Medicine, [facility] [address] [place] [address]. [place] [address] Toll free: [facility] CBC W Auto Differential pane l (Bld)on 07-28-2024 Basophils (Bld) [#/Vol] 0.04 10*3/uL Normal <0.11 [facility] Comment on above: Order Comment: Speci men Type: BLOOD SPECIMENOrdering Facility: [facility] Address: [address] [place] [address] Performed By: #### 5 7021-8 ####[facility] LABCLIA [id number] [place] [address] [facility] Basophils/100 WBC (Bld) 0.7 % Normal [facility] Comment on above: Order Comment: Speci men Type: BLOOD SPECIMENOrdering Facility: [facility] Address: [address] [place] [address] Performed By: #### 5 7021-8 ####[facility] LABCLIA [id number] [place] [address] [facility] Differential cell count method Nom (Bld) Auto Normal [facility] Comment on above: Order Comment: Speci men Type: BLOOD SPECIMENOrdering Facility: [facility] Address: [address] [place] [address] Performed By: #### 5 7021-8 ####[facility] LABCLIA [id number] [place] [address] [place] Eosinophils (Bld) [#/Vol] 10*3/uL Normal <0.46 [facility] Comment on above: Order Comment: Speci men Type: BLOOD SPECIMENOrdering Facility: [facility] Address: [address] [place] [address] Performed By: #### 5 7021-8 ####[facility] LABCLIA [id number] [place] [id number] [facility] Eosinophils/100 WBC (Bld) 0.2 % Normal [facility] Comment on above: Order Comment: Speci men Type: BLOOD SPECIMENOrdering Facility: [facility] Address: [address] [place] [address] Performed By: #### 5 7021-8 ####[facility] LABCLIA [id number] [place] [address] [facility] Erythrocyte distribution width (RBC) [Ratio] 16.6 % High 11.5-15.0 [facility] Comment on above: Order Comment: Speci men Type: BLOOD SPECIMENOrdering Facility: [facility] Address: [address] [place] [address] Performed By: #### 5 7021-8 ####[facility] LABCLIA [id number] [place] [address] [place] Hematocrit (Bld) [Volume fraction] 20.3 % Low 39.0-51.0 [facility] Comment on above: Order Comment: Speci men Type: BLOOD SPECIMENOrdering Facility: [facility] Address: [address] [place] [address] Performed By: #### 5 7021-8 ####[facility] LABCLIA [id number] [place] [address] [place] Hemoglobin (Bld) [Mass/Vol] 6.6 g/dL Low 13.0-17.0 [facility] Comment on above: Order Comment: Speci men Type: BLOOD SPECIMENOrdering Facility: [facility] Address: [address] [place] [address] Performed By: #### 5 7021-8 ####[facility] LABCLIA [id number] [place] [address] [place] Immature granulocytes (Bld) [#/Vol] 0.05 10*3/uL Normal <0.10 [facility] Comment on above: Order Comment: Speci men Type: BLOOD SPECIMENOrdering Facility: [facility] Address: [address] [place] [address] Performed By: #### 5 7021-8 ####[facility] LABCLIA [id number] [place] [address] [place] Immature granulocytes/100 WBC (Bld) 0.8 % Normal [facility] Comment on above: Order Comment: Speci men Type: BLOOD SPECIMENOrdering Facility: [facility] Address: [address] [place] [address] Performed By: #### 5 7021-8 ####[facility] LABCLIA [id number] [facility] [place] [address] [place] Lymphocytes (Bld) [#/Vol] 2.76 10*3/uL Normal 1.00-4.00 [facility] Comment on above: Order Comment: Speci men Type: BLOOD SPECIMENOrdering Facility: [facility] Address: [address] [place] [address] Performed By: #### 5 7021-8 ####[facility] LABCLIA [id number] [place] [address] [place] [facility] Lymphocytes/100 WBC (Bld) 46.5 % Normal [facility] Comment on above: Order Comment: Speci men Type: BLOOD SPECIMENOrdering Facility: [facility] Address: [address] [place] [address] Performed By: #### 5 7021-8 ####[facility] LABCLIA [id number] [place] [address] [place] MCH (RBC) [Entitic mass] 28.3 pg Normal 26.0-34.0 [facility] Comment on above: Order Comment: Speci men Type: BLOOD SPECIMENOrdering Facility: [facility] Address: [address] [place] [address] Performed By: #### 5 7021-8 ####[facility] LABCLIA [id number] [place] [address] [place] [facility] MCHC (RBC) [Mass/Vol] 32.5 g/dL Normal 30.5-36.0 [facility] Comment on above: Order Comment: Speci men Type: BLOOD SPECIMENOrdering Facility: [facility] Address: [address] [place] [address] Performed By: #### 5 7021-8 ####[facility] LABCLIA [id number] [place] [address] [place] MCV (RBC) [Entitic vol] 87.1 fL Normal 80.0-100.0 [facility] Comment on above: Order Comment: Speci men Type: BLOOD SPECIMENOrdering Facility: [facility] Address: [address] [place] [address] Performed By: #### 5 7021-8 ####[facility] LABCLIA [id number] [place] [address] [place] Monocytes (Bld) [#/Vol] 0.69 10*3/uL Normal <0.87 [facility] Comment on above: Order Comment: Speci men Type: BLOOD SPECIMENOrdering Facility: [facility] Address: [address] [place] [address] Performed By: #### 5 7021-8 ####[facility] LABCLIA [id number] [place] [address] [place] Monocytes/100 WBC (Bld) 11.6 % Normal [facility] Comment on above: Order Comment: Speci men Type: BLOOD SPECIMENOrdering Facility: [facility] Address: [address] [place] [address] Performed By: #### 5 7021-8 ####[facility] LABCLIA [id number] [place] [address] [place] Neutrophils (Bld) [#/Vol] 2.39 10*3/uL Normal 1.45-7.50 [facility] Comment on above: Order Comment: Speci men Type: BLOOD SPECIMENOrdering Facility: [facility] Address: [address] [place] [address] Performed By: #### 5 7021-8 ####[facility] LABCLIA [id number] [place] [address] [place] Neutrophils/100 WBC (Bld) 40.2 % Normal [facility] Comment on above: Order Comment: Speci men Type: BLOOD SPECIMENOrdering Facility: [facility] Address: [address] [place] [address] Performed By: #### 5 7021-8 ####[facility] LABCLIA [id number] [place] [address] [place] Nucleated RBC (Bld) [#/Vol] Normal [facility] Comment on above: Order Comment: Speci men Type: BLOOD SPECIMENOrdering Facility: [facility] Address: [address] [place] [address] Performed By: #### 5 7021-8 ####[facility] LABCLIA [id number] [place] [address] [place] Nucleated RBC/100 WBC (Bld) [Ratio] Normal [facility] Comment on above: Order Comment: Speci men Type: BLOOD SPECIMENOrdering Facility: [facility] Address: [address] [place] [address] Performed By: #### 5 7021-8 ####[facility] LABCLIA [id number] [facility] [place] [address] [place] Platelet mean volume (Bld) [Entitic vol] 11.0 fL Normal 9.0-12.7 [facility] Comment on above: Order Comment: Speci men Type: BLOOD SPECIMENOrdering Facility: [facility] Address: [address] [place] [address] Performed By: #### 5 7021-8 ####[facility] LABCLIA [id number] [place] [address] [facility] [place] Platelets (Bld) [#/Vol] 122 10*3/uL Low 150-400 [facility] Comment on above: Order Comment: Speci men Type: BLOOD SPECIMENOrdering Facility: [facility] Address: [address] [place] [address] Performed By: #### 5 7021-8 ####[facility] LABCLIA [id number] [place] [address] [place] RBC (Bld) [#/Vol] 2.33 10*6/uL Low 4.20-6.00 [facility] Comment on above: Order Comment: Speci men Type: BLOOD SPECIMENOrdering Facility: [facility] Address: [address] [place] [address] Performed By: #### 5 7021-8 ####[facility] LABCLIA [id number] [place] [facility] [place] [address] [place] WBC (Bld) [#/Vol] 5.94 10*3/uL Normal 3.70-11.00 [facility] Comment on above: Order Comment: Speci men Type: BLOOD SPECIMENOrdering Facility: [facility] Address: [address] [place] [address] Performed By: #### 5 7021-8 ####[facility] LABCLIA [id number] [place] [address] [facility] TYPE + SCREENon 07-28-2024 ABO B Normal [facility] Comment on above: Order Comment: Speci men Type: BLOOD SPECIMENOrdering Facility: [facility] Address: [address] [place] [address] Performed By: #### T SCR ####[facility] BLOOD BANKCLIA [id number] [address] Rh Nom (Bld) Positive Normal [facility] Comment on above: Order Comment: Speci men Type: BLOOD SPECIMENOrdering Facility: [facility] Address: [address] [place] [address] Performed By: #### T SCR ####[facility] BLOOD BANKCLIA [id number] [place] [id number] [facility] TYPE AND SCREEN EXPIRATION 07/31/2024 23:59 Normal [facility] Comment on above: Order Comment: Speci men Type: BLOOD SPECIMENOrdering Facility: [facility] Address: [address] [place] [address] Performed By: #### T SCR ####[facility] BLOOD BANKCLIA [id number] [place] [id number] [facility] 36on 07-27-2024 36 Noted. Message sent to PHIL Barros. No further orders at this time. Normal [facility] 36 Noted. No need to chanel ve him come back for redraw. We can await labs we have and discuss at next appt Elpidio Spears RN to Mi (Selected Message) MA 07/27/24 11:30 AM Please see message and advise, thanks Elpidio Spears RN MA 07/27/24 11:29 AM Note Noted. Message sent to . 07/27/24 11:28 AM Fiorella Murdock MA routed this conversation to [facility] On[facility] Clinical Sr. Manager MD Fiorella Coon MA VE 07/27/24 11:27 AM Note Zinc and Copper tests where Canceled. Send outs called me and stated that I did not spin tubes properly. [employer] Vat Worker in Send outs. She states that the way I have been sending these tests is incorrect and they need redrawn. DO NOT spin them and I am to send these tubes (royal blue) to [facility] Do you want these test redrawn?? Or wait till he comes back in to see you? Thank You José Miguel : ) [facility] 36 Noted. Message sent to . Normal [facility] 36 Zinc and Copper test s where Canceled. Send outs called me and stated that I did not spin tubes properly. [employer] Vat Worker in Send outs. She states that the way I have been sending these tests is incorrect and they need redrawn. DO NOT spin them and I am to send these tubes (royal blue) to [facility] Do you want these test redrawn?? Or wait till he comes back in to see you? Thank You José Miguel : ) [facility] DNA EXTRACTION BONE MARROW ( BUFFY COAT)on 07-25-2024 DNA Extraction Bone Marrow (Buffy Coat) This specimen was received and successfully processed for future DNA purification should molecular testing be needed. Specimens will be available for 3 years from date of collection. To order testing on this specimen for [facility] patients, please place an [facility] order for DNA and RNA Clinical Testing ([id number]). To order testing for patients outside of the [facility] system, please request DNA and RNA for Clinical Testing, order code [id number]. If additional paperwork is required for testing, please send completed forms via secure email to . [facility] CBC W Auto Differential pane l (Bld)Ordered By: Julia Aaron on 07-24-2024 Basophils (Bld) [#/Vol] 0 10*3/uL 0.0 - 0.2 10*3/uL [facility] Basophils/100 WBC (Bld) 0.5 % 0.0 - 2.0 % [facility] Eosinophils (Bld) [#/Vol] 0 10*3/uL 0.0 - 0.5 10*3/uL [facility] Eosinophils/100 WBC (Bld) 0.2 % 0.0 - 6.0 % [facility] Erythrocyte distribution width (RBC) [Ratio] 16.3 % High 11.5 - 15.0 % [facility] Hematocrit (Bld) [Volume fraction] 20.7 % Low 40.0 - 52.0 % [facility] Hemoglobin (Bld) [Mass/Vol] 7.1 g/dL Low 13.0 - 18.0 g/dL [facility] Immature granulocytes (Bld) [#/Vol] 0 10*3/uL NINF - 0.1 10*3/uL [facility] Immature granulocytes/100 WBC (Bld) 0.9 % 0.0 - 2.0 % [facility] Interpretation and review of laboratory results Abnormal [facility] Lymphocytes (Bld) [#/Vol] 1.7 10*3/uL 1.0 - 4.3 10*3/uL [facility] Lymphocytes/100 WBC (Bld) 37.6 % 15.0 - 45.0 % [facility] MCH (RBC) [Entitic mass] 29.2 pg 26.0 - 34.0 pg [facility] MCHC (RBC) [Mass/Vol] 34.3 % 30.5 - 36.0 % [facility] MCV (RBC) [Entitic vol] 85.2 fL 77.0 - 99.0 fL [facility] Monocytes (Bld) [#/Vol] 0.4 10*3/uL 0.0 - 0.9 10*3/uL [facility] Monocytes/100 WBC (Bld) 10 % 5.0 - 13.0 % [facility] Neutrophils (Bld) [#/Vol] 2.2 10*3/uL 1.8 - 7.5 10*3/uL [facility] Neutrophils/100 WBC (Bld) 50.8 % 38.0 - 82.0 % [facility] Nucleated RBC/100 WBC (Bld) [Ratio] 1.1 % [facility] Platelet mean volume (Bld) [Entitic vol] 11.6 fL 9.0 - 12.7 fL [facility] Platelets (Bld) [#/Vol] 112 10*3/uL Low 140 - 440 10*3/uL [facility] RBC (Bld) [#/Vol] 2.43 10*6/uL Low 4.40 - 5.9 0 10*6/uL [facility] WBC (Bld) [#/Vol] 4.4 10*3/uL 3.6 - 10.7 10*3/uL [facility] CBC WITH AUTO DIFFERENTIALon 07-24-2024 Basophils (Bld) [#/Vol] 0.0 10*3/uL Normal 0.0-0.2 [facility] Comment on above: Performed By: #### Lesly AB296, [id number] ####School Laboratory Technician: DARIA SANTIAGO ([id number])[facility])[address] [place] [address] Basophils/100 WBC (Bld) 0.5 % Normal 0.0-2.0 [facility] Comment on above: Performed By: #### Lesly AB296, [id number] ####School Laboratory Technician: DARIA SANTIAGO ([id number])[facility])[address] [place] [address] Eosinophils (Bld) [#/Vol] 0.0 10*3/uL Normal 0.0-0.5 [facility] Comment on above: Performed By: #### Lesly AB296, [id number] ####School Laboratory Technician: DARIA SANTIAGO ([id number])[facility])[address] [place] [address] Eosinophils/100 WBC (Bld) 0.2 % Normal 0.0-6.0 [facility] Comment on above: Performed By: #### Lesly AB296, [id number] ####School Laboratory Technician: DARIA SANTIAGO ([id number])[facility])[address] [place] [address] Erythrocyte distribution width (RBC) [Ratio] 16.3 % High 11.5-15.0 [facility] Comment on above: Performed By: #### L AB296, [id number] ####School Laboratory Technician: DARIA SANTIAGO ([id number])[facility])[address] [place] [address] Hematocrit (Bld) [Volume fraction] 20.7 % Low 40.0-52.0 [facility] Comment on above: Performed By: #### Lesly AB296, [id number] ####School Laboratory Technician: DARIA SANTIAGO ([id number])[facility])[address] [place] [address] Hemoglobin (Bld) [Mass/Vol] 7.1 g/dL Low 13.0-18.0 [facility] Comment on above: Performed By: #### Lesly AB296 [id number] ####School Laboratory Technician: DARIA SANTIAGO ([id number])[facility])[address] [place] [address] IMMATURE GRANS % 0.9 % Normal 0.0-2.0 [facility] Comment on above: Performed By: #### Lesly AB296, [id number] ####School Laboratory Technician: DARIA SANTIAGO ([id number])[facility])[address] [place] [address] IMMATURE GRANS ABSOLUTE 0.0 10*3/uL Normal <0.1 [facility] Comment on above: Performed By: #### Lesly AB296, [id number] ####School Laboratory Technician: DARIA SANTIAGO ([id number])[facility])[address] [place] [address] Lymphocytes (Bld) [#/Vol] 1.7 10*3/uL Normal 1.0-4.3 [facility] Comment on above: Performed By: #### L AB296, [id number] ####School Laboratory Technician: DARIA SANTIAGO ([id number])[address] Lymphocytes/100 WBC (Bld) 37.6 % Normal 15.0-45.0 [facility] Comment on above: Performed By: #### L AB296, [id number] ####School Laboratory Technician: DARIA SANTIAGO ([id number])[facility])[address] [place] [address] MCH (RBC) [Entitic mass] 29.2 pg Normal 26.0-34.0 [facility] Comment on above: Performed By: #### L AB296, [id number] ####School Laboratory Technician: DARIA SANTIAGO ([id number])[facility])[address] [place] [address] MCHC 34.3 % Normal 30.5-36.0 [facility] Comment on above: Performed By: #### L [id number], [id number] ####School Laboratory Technician: DARIA SANTIAGO ([phone])[facility])[address] [place] [address] MCV (RBC) [Entitic vol] 85.2 fL Normal 77.0-99.0 [facility] Comment on above: Performed By: #### L [id number], [id number] ####School Laboratory Technician: DARIA SANTIAGO ([id number])[facility])[address] [place] [address] Monocytes (Bld) [#/Vol] 0.4 10*3/uL Normal 0.0-0.9 [facility] Comment on above: Performed By: #### L [id number], [id number] ####School Laboratory Technician: DARIA SANTIAGO ([id number])[facility])[address] [place] [address] Monocytes/100 WBC (Bld) 10.0 % Normal 5.0-13.0 [facility] Comment on above: Performed By: #### L [id number], [id number] ####School Laboratory Technician: DARIA SANTIAGO ([id number])[facility])[address] [place] [address] NEUTROPHILS ABSOLUTE 2.2 10*3/uL Normal 1.8-7.5 [facility] Comment on above: Performed By: #### L [id number], [id number] ####School Laboratory Technician: DARIA SANTIAGO ([id number])[facility])[address] [place] [address] Neutrophils/100 WBC (Bld) 50.8 % Normal 38.0-82.0 [facility] Comment on above: Performed By: #### L [id number], [id number] ####School Laboratory Technician: DARIA SANTIAGO ([id number])[facility] ([facility])[address] [place] [address] NRBC 1.1 /100 WBCs Normal 0.0-2.0 [facility] Comment on above: Performed By: #### L [id number], [id number] ####School Laboratory Technician: DARIA SANTIAGO ([id number])[facility] ([facility])[address] [place] [address] Platelet mean volume (Bld) [Entitic vol] 11.6 fL Normal 9.0-12.7 [facility] Comment on above: Performed By: #### Lesly [id number], [id number] ####School Laboratory Technician: DARIA SANTIAGO ([id number])[facility] ([facility])[address] [place] [address] Platelets (Bld) [#/Vol] 112 10*3/uL Low 140-440 [facility] Comment on above: Performed By: #### L [id number], [id number] ####School Laboratory Technician: DARIA SANTIAGO ([id number])[facility] ([facility])[address] [place] [address] RBC (Bld) [#/Vol] 2.43 10*6/uL Low 4.40-5.90 [facility] Comment on above: Performed By: #### L [id number], [id number] ####School Laboratory Technician: DARIA SANTIAGO ([id number])[facility])[address] [place] [address] [place] WBC (Bld) [#/Vol] 4.4 10*3/uL Normal 3.6-10.7 [facility] Comment on above: Performed By: #### L [id number], [id number] ####School Laboratory Technician: DARIA SANTIAGO ([id number])[facility] ([facility])[address] [place] [address] COMPREHENSIVE METABOLIC PANE Siva 07-24-2024 Albumin [Mass/Vol] 3.3 g/dL Low 3.4-4.8 [facility] Comment on above: Performed By: #### L AB17, LAB89, LAB96, LAB67, LAB68, LAB69 ####School Laboratory Technician: DARIA SANTIAGO ([id number])[facility] ([facility])[address] [place] [address] ALP [Catalytic activity/Vol] 119 U/L Normal 40-150 [facility] Comment on above: Performed By: #### L AB17, LAB89, LAB96, LAB67, LAB68, LAB69 ####School Laboratory Technician: DARIA SANTIAGO ([id number])[facility] ([facility])[address] [place] [address] ALT [Catalytic activity/Vol] 21 U/L Normal <40 [facility] Comment on above: Performed By: #### L AB17, LAB89, LAB96, LAB67, LAB68, LAB69 ####School Laboratory Technician: DARIA SANTIAGO ([id number])[facility] ([facility])[address] [place] [address] Anion gap [Moles/Vol] 6 mmol/L Normal 3-13 [facility] Comment on above: Performed By: #### L AB17, LAB89, LAB96, LAB67, LAB68, LAB69 ####School Laboratory Technician: DARIA SANTIAGO ([id number])[facility] ([facility])[address] [place] [address] AST [Catalytic activity/Vol] 22 U/L Normal <34 [facility] Comment on above: Performed By: #### L AB17, LAB89, LAB96, LAB67, LAB68, LAB69 ####School Laboratory Technician: DARIA SANTIAGO ([id number])[facility])[address] [place] [address] Bilirubin [Mass/Vol] 0.2 mg/dL Normal <1.2 [facility] Comment on above: Performed By: #### L AB17, LAB89, LAB96, LAB67, LAB68, LAB69 ####School Laboratory Technician: DARIA SANTIAGO ([id number])[facility])[address] [place] [address] Calcium [Mass/Vol] 9.0 mg/dL Normal 8.8-10.0 [facility] Comment on above: Performed By: #### L AB17, LAB89, LAB96, LAB67, LAB68, LAB69 ####School Laboratory Technician: DARIA SANTIAGO ([id number])[facility] ([facility])[address] [place] [address] Chloride [Moles/Vol] 103 mmol/L Normal 98-107 [facility] Comment on above: Performed By: #### L AB17, LAB89, LAB96, LAB67, LAB68, LAB69 ####School Laboratory Technician: DARIA SANTIAGO ([id number])[facility])[address] [place] [address] CO2 [Moles/Vol] 24 mmol/L Normal 23-31 [facility] Comment on above: Performed By: #### L AB17, LAB89, LAB96, LAB67, LAB68, LAB69 ####School Laboratory Technician: DARIA SANTIAGO ([id number])[facility])[address] [place] [address] Creatinine [Mass/Vol] 1.08 mg/dL Normal 0.72-1.25 [facility] Comment on above: Performed By: #### L AB17, LAB89, LAB96, LAB67, LAB68, LAB69 ####School Laboratory Technician: DARIA SANTIAGO ([phone])[facility])[address] [place] [address] GLOMERULAR FILTRATION RATE ML/MIN/1.73 SQ M.PREDICTED 68.9 mL/min/1.73m*2 Normal >60.0 [facility] Comment on above: Result Comment: Calc ulation based on the Chronic Kidney Disease Epidemiology Collaboration (CKD-EPI) equation refit without adjustment for race Performed By: #### L AB17, LAB89, LAB96, LAB67, LAB68, LAB69 ####School Laboratory Technician: DARIA SANTIAGO ([id number])[facility])[address] [place] [address] Glucose [Mass/Vol] 215 mg/dL High 82-115 [facility] Comment on above: Performed By: #### L AB17, LAB89, LAB96, LAB67, LAB68, LAB69 ####School Laboratory Technician: DARIA SANTIAGO ([id number])[facility])[address] [place] [address] Potassium [Moles/Vol] 4.4 mmol/L Normal 3.5-5.1 [facility] Comment on above: Result Comment: Plas ma potassium values may be up to 0.5 mmol/L lower than serum values. Performed By: #### L AB17, LAB89, LAB96, LAB67, LAB68, LAB69 ####School Laboratory Technician: DARIA SANTIAGO ([id number])[address] Protein [Mass/Vol] 6.7 g/dL Normal 6.4-8.3 [facility] Comment on above: Performed By: #### L AB17, LAB89, LAB96, LAB67, LAB68, LAB69 ####School Laboratory Technician: DARIA SANTIAGO ([id number])[address] Sodium [Moles/Vol] 133 mmol/L Low 136-145 [facility] Comment on above: Performed By: #### L AB17, LAB89, LAB96, LAB67, LAB68, LAB69 ####School Laboratory Technician: DARIA SANTIAGO ([id number])[address] Urea nitrogen [Mass/Vol] 23 mg/dL Normal 9-23 [facility] Comment on above: Performed By: #### L AB17, LAB89, LAB96, LAB67, LAB68, LAB69 ####School Laboratory Technician: DARIA SANTIAGO ([id number])[facility] ([facility])[address] [place] [address] Cobalamin (Vitamin B12) [Mas s/Vol]on 07-24-2024 Interpretation and review of laboratory results Normal [facility] Comprehensive metabolic 1998 panelon 07-24-2024 Albumin [Mass/Vol] 3.3 g/dL Low 3.4 - 4.8 g/dL [facility] ALP [Catalytic activity/Vol] 119 U/L 40 - 150 U/L [facility] ALT [Catalytic activity/Vol] 21 U/L NINF - 40 U/L [facility] Anion gap [Moles/Vol] 6 mmol/L 3 - 13 mmol/L [facility] AST [Catalytic activity/Vol] 22 U/L NINF - 34 U/L [facility] Bilirubin [Mass/Vol] 0.2 mg/dL NINF - 1.2 mg/dL [facility] Calcium [Mass/Vol] 9 mg/dL 8.8 - 10. 0 mg/dL [facility] Chloride [Moles/Vol] 103 mmol/L 98 - 107 mmol/L [facility] CO2 [Moles/Vol] 24 mmol/L 23 - 31 mmol/L [facility] Creatinine [Mass/Vol] 1.08 mg/dL 0.72 - 1.25 mg/dL [facility] GFR/1.73 sq M.predicted (S/P/Bld) [Vol rate/Area] 68.9 mL/min - PINF [facility] Comment on above: Calculation based on the Chronic Kidney Disease Epidemiology Collaboration (CKD-EPI) equation refit without adjustment for race Glucose [Mass/Vol] 215 mg/dL High 82 - 115 mg/dL [facility] Interpretation and review of laboratory results Abnormal [facility] Potassium [Moles/Vol] 4.4 mmol/L 3.5 - 5.1 mmol/L [facility] Comment on above: Plasma potassium ermias ues may be up to 0.5 mmol/L lower than serum values. Protein [Mass/Vol] 6.7 g/dL 6.4 - 8.3 g/dL [facility] Sodium [Moles/Vol] 133 mmol/L Low 136 - 145 mmol/L [facility] Urea nitrogen [Mass/Vol] 23 mg/dL 9 - 23 mg/dL [facility] FERRITINon 07-24-2024 Ferritin [Mass/Vol] 3521 ng/mL High 22-275 [facility] Comment on above: Result Comment: ERNESTO Garcia COMMENTS: Ferritin levels below 10 ng/mL have been reported as indicative of iron deficiency anemia. Performed By: #### L AB17, LAB89, LAB96, LAB67, LAB68, LAB69 ####School Laboratory Technician: DARIA SANTIAGO ([phone])[facility] ([facility])[address] [place] [address] FOLATEon 07-24-2024 FOLATE RESULT 16.9 ng/mL Normal 7.0-31.4 [facility] Comment on above: Performed By: #### L AB17, LAB89, LAB96, LAB67, LAB68, LAB69 ####School Laboratory Technician: DARIA SANTIAGO ([id number])[facility] ([facility])[address] [place] [address] Ferritin [Mass/Vol]on 2024 Interpretation and review of laboratory results Abnormal [facility] Ferritin levels belo w 10 ng/mL have been reported as indicative of iron deficiency anemia. [facility] Folate [Mass/Vol]on 07-25-19 Interpretation and review of laboratory results Normal [facility] HAPTOGLOBINon 07-24-2024 HAPTOGLOBIN 218 mg/dL Normal 50-270 [facility] Comment on above: Performed By: #### L AB17, LAB89, LAB96, LAB67, LAB68, LAB69 ####School Laboratory Technician: DARIA SANTIAGO ([id number])[facility] ([facility])[address] [place] [address] IG CONCENTRATION, BLOOD (IMM UNOFIXATION ELECTROPHORESIS)on 07-24-2024 IGA, BLOOD 374 mg/dL Normal 85-600 [facility] Comment on above: Order Comment: THIS IS A CARVE-OUT LAB: SPECIMEN MUST BE SENT TO [facility] FOR PROCESSING Performed By: #### L [id number], [id number], [id number] ####School Laboratory Technician: DARIA SANTIAGO ([id number])[facility] ([facility])[address] [place] [address] IGG, BLOOD 1114 mg/dL Normal 540-1722 [facility] Comment on above: Order Comment: THIS IS A CARVE-OUT LAB: SPECIMEN MUST BE SENT TO [facility] FOR PROCESSING Performed By: #### L [id number], [id number], [id number] ####School Laboratory Technician: DARIA SANTIAGO ([id number])[facility] ([facility])[address] [place] [address] IGM, BLOOD 146 mg/dL Normal 25-265 [facility] Comment on above: Order Comment: THIS IS A CARVE-OUT LAB: SPECIMEN MUST BE SENT TO [facility] FOR PROCESSING Performed By: #### L [id number], [id number], [id number] ####School Laboratory Technician: DARIA SANTIAGO ([id number])[facility] ([facility])[address] [place] [address] IMMUNOFIXATION ELECTROPHORES Leda 07-24-2024 IMMUNOFIXATION ELECTROPHORESIS See Below Normal [facility] Comment on above: Order Comment: THIS IS A CARVE-OUT LAB: SPECIMEN MUST BE SENT TO [facility] FOR PROCESSING Result Comment: A fa int monoclonal IgG kappa protein cannot be excluded. Serum free light chain levels are recommended, if clinically indicated. Performed By: #### L [id number] ####School Laboratory Technician: DARIA SANTIAGO ([id number])[facility])[address] [place] [address] RELEASED BY Daria Santiago M.D. [facility] Comment on above: Order Comment: THIS IS A CARVE-OUT LAB: SPECIMEN MUST BE SENT TO [facility] FOR PROCESSING Result Comment: This is an appended report. These results have been appended to a previously preliminary verified report. Performed By: #### L [id number] ####School Laboratory Technician: DARIA SANTIAGO ([id number])[facility] ([facility])[address] [place] [address] Performed By: #### L [id number] ####School Laboratory Technician: DARIA SANTIAGO ([id number])[facility])[address] [place] [address] REVIEWED BY Angeles GuoBTjS., Ph.D. Normal [facility] Comment on above: Order Comment: THIS IS A CARVE-OUT LAB: SPECIMEN MUST BE SENT TO [facility] FOR PROCESSING Performed By: #### L [id number] ####School Laboratory Technician: DARIA SANTIAGO ([id number])[facility])[address] [place] [address] Performed By: #### L [id number] ####School Laboratory Technician: DARIA SANTIAGO ([id number])[facility] ([facility])[address] [place] [address] IRON AND TIBCon 07-24-2024 IRON BINDING CAPACITY <303 Normal 250-450 [facility] Comment on above: Performed By: #### L [id number], [id number], [id number] ####School Laboratory Technician: DARIA SANTIAGO ([id number])[facility] ([facility])[address] [place] [address] IRON SATURATION >91.7 High 20.0-50.0 [facility] Comment on above: Performed By: #### L [id number], [id number], [id number] ####School Laboratory Technician: DARIA SANTIAGO ([phone])[facility] ([facility])[address] [place] [address] IRON, TOTAL 278 ug/dL High 65-175 [facility] Comment on above: Performed By: #### L [id number], [id number], [id number] ####School Laboratory Technician: DARIA SANTIAGO ([id number])[facility])[address] [place] [address] Iron and Iron binding capaci ty panelon 07-24-2024 Interpretation and review of laboratory results Abnormal [facility] Iron [Mass/Vol] 278 ug/dL High 65 - 175 ug/dL [facility] Iron binding capacity [Mass/Vol] ug/dL 250 - 450 ug/dL [facility] Iron saturation [Mass fraction] % High 20.0 - 50.0 % [facility] LACTATE DEHYDROGENASEon 06-27 LDH [Catalytic activity/Vol] 152 U/L Normal 125-220 [facility] Comment on above: Performed By: #### L AB17, LAB89, LAB96, LAB67, LAB68, LAB69 ####School Laboratory Technician: DARIA SANTIAGO ([id number])[facility] ([address] LDH Lactate to pyruvate reac tion [Catalytic activity/Vol]on 07-24-2024 Interpretation and review of laboratory results Normal [facility] Laboratory - Chemistry and C hemistry - challengeon 07-24-2024 Ferritin [Mass/Vol] 3521 ng/mL High 22 - 275 ng/mL [facility] Folate [Mass/Vol] 16.9 ng/mL 7.0 - 31.4 ng/mL [facility] Cobalamin (Vitamin B12) [Mass/Vol] 662 pg/mL 213 - 816 pg/mL [facility] LDH Lactate to pyruvate reaction [Catalytic activity/Vol] 152 U/L 125 - 220 U/L [facility] TSH Qn 1.33 m[IU]/L [facility] IgA [Mass/Vol] 374 mg/dL 85 - 600 mg/dL [facility] IgG [Mass/Vol] 1114 mg/dL 540 - 1722 mg/dL [facility] IgM [Mass/Vol] 146 mg/dL 25 - 265 mg/dL [facility] Laboratory - Hematology and Cell countson 07-24-2024 Haptoglobin [Mass/Vol] 218 mg/dL 50 - 270 mg/dL [facility] No Panel Informationon 07-24 Interpretation and review of laboratory results Normal [facility] Interpretation and review of laboratory results Normal [facility] Office Visiton 07-24-2024 Follow-up visit [id number] Joss Oropeza 1945 M Date Provider Department Center 07/24/2024 [id number] [facility] ON[facility] None Family History Problem Relation Age of Onset Thyroid cancer Mother Pulmonary embolism Sister Thyroid cancer Daughter Family Status - Relation Status Age at Mother Father Sister Daughter Alive Level of Service:75976 [place] OFFICE/OUTPATIENT NEW HIGH MDM 60 MINUTES Reason for Visit and Comments: New Patient [542] - Myelodysplastic syndrome, Clonal cytopenia of undetermined significance (CCUS) Normal [facility] Progress Noteon 07-24-2024 Progress Note Sabas You MD [facility] Hematology/Oncology - [facility] [address] [facility] [address] [facility] [address] Dept: [phone] Dept PROBLEM LIST: 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 -03/08/2023 started Luspatercept which was increased to max dose -01/10/2024 = started on Imetelstat via Dr Vicenta Noriega -Receiving luspatercept and Imetelstat through [facility]/Vicenta Noriega -07/24/2024 =2nd opinion w/ me 2. 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 Vaping Use Vaping status: Never Used Substance and Sexual Activity Alcohol use: Yes Comment: rare Drug use: Never Sexual activity: Not on file Other Topics Concern Not on file Social History Narrative Not on file Social Drivers of Health Financial Resource Strain: Low Risk (05/23/2022) Received from [facility] Overall Financial Resource Strain (CARDIA) Difficulty of Paying Living Expenses: Not hard at all Food Insecurity: No Food Insecurity (06/07/2024) Received from [facility] Hunger Vital Sign Worried About Running Out of Food in the Last Year: Never true Ran Out of Food in the Last Year: Never true Transportation Needs: No Transportation Needs (06/07/2024) Received from [facility] PRAPARE - Transportation Lack of Transportation (Medical): No Lack of Transportation (Non-Medical): No Physical Activity: Not on file Stress: Not on file Social Connections: Not on file Intimate Partner Violence: Not on file Housing Stability: Unknown (06/07/2024) Received from [facility] Housing Stability Vital Sign Unable to Pay for Housing in the Last Year: No Number of Times Moved in the Last Year: Not on file Homeless in the Last Year: No Family History[7] Allergies[8] Reviewed medications, allergies, past medical history, social history, family history as above. 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 Normal [facility] Progress Note Patient seen by Dr Asha blancas Labs drawn 1 stick right arm 2 lav 2 royal blue 4-10ml sst All labs sent to [facility] Normal [facility] RETICULOCYTESon 07-24-2024 Reticulocytes/100 RBC (Bld) 0.78 % Normal [facility] Comment on above: Result Comment: Newb orn < 5% Adults 0.4 - 2.0% Performed By: #### L [id number], [id number] ####School Laboratory Technician: DARIA SANTIAGO ([id number])[address] Reticulocytes panel (Bld)on 07-24-2024 Reticulocytes/100 RBC (Bld) 0.78 % [facility] Comment on above: < 5% Adults 0.4 - 2.0% [facility] SERUM ELECTROPHORESISon 06-27 Albumin [Mass/Vol] 3.6 g/dL Normal 3.1-4.8 [facility] Comment on above: Order Comment: THIS IS A CARVE-OUT LAB: SPECIMEN MUST BE SENT TO [facility] FOR PROCESSING Performed By: #### L [id number] ####School Laboratory Technician: DARIA SANTIAGO ([id number])[address] ALPHA 1 0.3 g/dL Normal 0.2-0.4 [facility] Comment on above: Order Comment: THIS IS A CARVE-OUT LAB: SPECIMEN MUST BE SENT TO [facility] FOR PROCESSING Performed By: #### L [id number] ####School Laboratory Technician: DARIA SANTIAGO ([id number])[address] ALPHA 2 0.9 g/dL Normal 0.6-1.0 [facility] Comment on above: Order Comment: THIS IS A CARVE-OUT LAB: SPECIMEN MUST BE SENT TO [facility] FOR PROCESSING Performed By: #### L [id number] ####School Laboratory Technician: DARIA SANTIAGO ([id number])[address] BETA 1 0.4 g/dl Normal 0.3-0.6 [facility] Comment on above: Order Comment: THIS IS A CARVE-OUT LAB: SPECIMEN MUST BE SENT TO [facility] FOR PROCESSING Performed By: #### L [id number] ####School Laboratory Technician: DARIA SANTIAGO ([id number])[facility])[address] [place] [address] BETA 2 0.4 g/dl Normal 0.3-0.5 [facility] Comment on above: Order Comment: THIS IS A CARVE-OUT LAB: SPECIMEN MUST BE SENT TO [facility] FOR PROCESSING Performed By: #### L [id number] ####School Laboratory Technician: DARIA SANTIAGO ([id number])[address] GAMMA GLOBULIN 1.1 g/dL Normal 0.4-1.4 [facility] Comment on above: Order Comment: THIS IS A CARVE-OUT LAB: SPECIMEN MUST BE SENT TO [facility] FOR PROCESSING Performed By: #### L [id number] ####School Laboratory Technician: DARIA SANTIAGO ([id number])[address] PROTEIN FRACTION (INTERPRETATION) IN SER/PLAS BY ELECTROPHORESIS See Below Normal [facility] Comment on above: Order Comment: THIS IS A CARVE-OUT LAB: SPECIMEN MUST BE SENT TO [facility] FOR PROCESSING Result Comment: Ques tionable band present in the gamma region. The band has a concentration of 0.15 g/dL. See NAEL for additional information. Performed By: #### L [id number] ####School Laboratory Technician: DARIA SANTIAGO ([id number])[facility])[address] [place] [address] THYROID STIMULATING HORMONEo n 07-24-2024 THYROID STIMULATING HORMONE 1.33 uIU/mL Normal 0.35-4.94 [facility] Comment on above: Performed By: #### L [id number], [id number], [id number] ####School Laboratory Technician: DARIA SANTIAGO ([id number])[facility] ([facility])[address] [place] [address] TSH Qnon 07-24-2024 Interpretation and review of laboratory results Normal [facility] VITAMIN B12on 07-24-2024 Cobalamin (Vitamin B12) [Mass/Vol] 662 pg/mL Normal 213-816 [facility] Comment on above: Performed By: #### L AB17, LAB89, LAB96, LAB67, LAB68, LAB69 ####School Laboratory Technician: DARIA SANTIAGO ([id number])[facility] ([facility])[address] [place] [address] CBC W Auto Differential pane l (Bld)on 07-23-2024 Basophils (Bld) [#/Vol] 0.03 10*3/uL Normal <0.11 [facility] Comment on above: Order Comment: Speci men Type: BLOOD SPECIMENOrdering Facility: [facility] Address: [address] [place] [address] Performed By: #### 5 7021-8 ####[facility] [place] LABCLIA [id number] [place] [address] [place] Basophils/100 WBC (Bld) 0.7 % Normal [facility] Comment on above: Order Comment: Speci men Type: BLOOD SPECIMENOrdering Facility: [facility] Address: [address] [place] [address] Performed By: #### 5 7021-8 ####[facility] [place] LABCLIA [id number] [place], [place] [id number] [place] [address] [place] Differential cell count method Nom (Bld) Auto Normal [facility] Comment on above: Order Comment: Speci men Type: BLOOD SPECIMENOrdering Facility: [facility] Address: [address] [place] [address] Performed By: #### 5 7021-8 ####[facility] [place] LABCLIA [id number] [place] [address] [place] Eosinophils (Bld) [#/Vol] 10*3/uL Normal <0.46 [facility] Comment on above: Order Comment: Speci men Type: BLOOD SPECIMENOrdering Facility: [facility] Address: [address] [place] [address] Performed By: #### 5 7021-8 ####[facility] [place] LABCLIA [id number] [place] [address] [place] Eosinophils/100 WBC (Bld) 0.2 % Normal [facility] Comment on above: Order Comment: Speci men Type: BLOOD SPECIMENOrdering Facility: [facility] Address: [address] [place] [address] Performed By: #### 5 7021-8 ####[facility] [place] LABCLIA [id number] [facility] [facility] [place] [address] [place] Erythrocyte distribution width (RBC) [Ratio] 16.5 % High 11.5-15.0 [facility] Comment on above: Order Comment: Speci men Type: BLOOD SPECIMENOrdering Facility: [facility] Address: [address] [place] [address] Performed By: #### 5 7021-8 ####[facility] [place] LABCLIA [id number] [facility] [place] [address] [place] Hematocrit (Bld) [Volume fraction] 21.5 % Low 39.0-51.0 [facility] Comment on above: Order Comment: Speci men Type: BLOOD SPECIMENOrdering Facility: [facility] Address: [address] [place] [address] Performed By: #### 5 7021-8 ####[facility] [place] LABCLIA [id number] [facility] [place] [address] [place] Hemoglobin (Bld) [Mass/Vol] 7.2 g/dL Low 13.0-17.0 [facility] Comment on above: Order Comment: Speci men Type: BLOOD SPECIMENOrdering Facility: [facility] Address: [address] [place] [address] Performed By: #### 5 7021-8 ####[facility] [place] LABCLIA [id number] [facility] [place] [address] [place] Immature granulocytes (Bld) [#/Vol] 10*3/uL Normal <0.10 [facility] Comment on above: Order Comment: Speci men Type: BLOOD SPECIMENOrdering Facility: [facility] Address: [address] [place] [address] Performed By: #### 5 7021-8 ####[facility] [place] LABCLIA [id number] [facility] [place] [address] [place] [facility] Immature granulocytes/100 WBC (Bld) 0.4 % Normal [facility] Comment on above: Order Comment: Speci men Type: BLOOD SPECIMENOrdering Facility: [facility] Address: [address] [place] [address] Performed By: #### 5 7021-8 ####[facility] [place] LABCLIA [id number] [facility] [place] [address] [place] Lymphocytes (Bld) [#/Vol] 1.95 10*3/uL Normal 1.00-4.00 [facility] Comment on above: Order Comment: Speci men Type: BLOOD SPECIMENOrdering Facility: [facility] Address: [address] [place] [address] Performed By: #### 5 7021-8 ####[facility] [place] LABCLIA [id number] [facility] [address] [place] Lymphocytes/100 WBC (Bld) 43.8 % Normal [facility] Comment on above: Order Comment: Speci men Type: BLOOD SPECIMENOrdering Facility: [facility] Address: [address] [place] [address] Performed By: #### 5 7021-8 ####[facility] [place] LABCLIA [id number] [facility] [place] [address] [place] MCH (RBC) [Entitic mass] 28.8 pg Normal 26.0-34.0 [facility] Comment on above: Order Comment: Speci men Type: BLOOD SPECIMENOrdering Facility: [facility] Address: [address] [place] [address] Performed By: #### 5 7021-8 ####[facility] [place] LABCLIA [id number] [place] [address] [place] [facility] MCHC (RBC) [Mass/Vol] 33.5 g/dL Normal 30.5-36.0 [facility] Comment on above: Order Comment: Speci men Type: BLOOD SPECIMENOrdering Facility: [facility] Address: [address] [place] [address] Performed By: #### 5 7021-8 ####[facility] [place] LABCLIA [id number] [address] [place] [facility] MCV (RBC) [Entitic vol] 86.0 fL Normal 80.0-100.0 [facility] Comment on above: Order Comment: Speci men Type: BLOOD SPECIMENOrdering Facility: [facility] Address: [address] [place] [address] Performed By: #### 5 7021-8 ####[facility] [place] LABCLIA [id number] [address] Monocytes (Bld) [#/Vol] 0.49 10*3/uL Normal <0.87 [facility] Comment on above: Order Comment: Speci men Type: BLOOD SPECIMENOrdering Facility: [facility] Address: [address] [place] [address] Performed By: #### 5 7021-8 ####[facility] [place] LABCLIA [id number] [place] [id number] [facility] Monocytes/100 WBC (Bld) 11.0 % Normal [facility] Comment on above: Order Comment: Speci men Type: BLOOD SPECIMENOrdering Facility: [facility] Address: [address] [place] [address] Performed By: #### 5 7021-8 ####[facility] [place] LABCLIA [id number] [place] [address] [place] Neutrophils (Bld) [#/Vol] 1.95 10*3/uL Normal 1.45-7.50 [facility] Comment on above: Order Comment: Speci men Type: BLOOD SPECIMENOrdering Facility: [facility] Address: [address] [place] [address] Performed By: #### 5 7021-8 ####[facility] [place] LABCLIA [id number] [place] [address] [place] Neutrophils/100 WBC (Bld) 43.9 % Normal [facility] Comment on above: Order Comment: Speci men Type: BLOOD SPECIMENOrdering Facility: [facility] Address: [address] [place] [address] Performed By: #### 5 7021-8 ####[facility] [place] LABCLIA [id number] [facility] [place] [address] [place] Nucleated RBC (Bld) [#/Vol] Normal [facility] Comment on above: Order Comment: Speci men Type: BLOOD SPECIMENOrdering Facility: [facility] Address: [address] [place] [address] Performed By: #### 5 7021-8 ####[facility] LABCLIA [id number] [place] [address] [place] Nucleated RBC/100 WBC (Bld) [Ratio] Normal [facility] Comment on above: Order Comment: Speci men Type: BLOOD SPECIMENOrdering Facility: [facility] Address: [address] [place] [address] Performed By: #### 5 7021-8 ####[facility] [place] LABCLIA [id number] [facility] [address] [place] Platelet mean volume (Bld) [Entitic vol] 11.5 fL Normal 9.0-12.7 [facility] Comment on above: Order Comment: Speci men Type: BLOOD SPECIMENOrdering Facility: [facility] Address: [address] [place] [address] Performed By: #### 5 7021-8 ####[facility] LABCLIA [id number] [place] [address] [facility] Platelets (Bld) [#/Vol] 98 10*3/uL Low 150-400 [facility] Comment on above: Order Comment: Speci men Type: BLOOD SPECIMENOrdering Facility: [facility] Address: [address] [place] [address] Performed By: #### 5 7021-8 ####[facility] LABCLIA [id number] [place] [address] [facility] [place] RBC (Bld) [#/Vol] 2.50 10*6/uL Low 4.20-6.00 [facility] Comment on above: Order Comment: Speci men Type: BLOOD SPECIMENOrdering Facility: [facility] Address: [address] [place] [address] Performed By: #### 5 7021-8 ####[facility] LABCLIA [id number] [place] [address] [place] [facility] WBC (Bld) [#/Vol] 4.45 10*3/uL Normal 3.70-11.00 [facility] Comment on above: Order Comment: Speci men Type: BLOOD SPECIMENOrdering Facility: [facility] Address: [address] [place] [address] Performed By: #### 5 7021-8 ####[facility] LABCLIA [id number] [place] [address] [facility] TYPE + SCREENon 07-23-2024 ABO B Normal [facility] Comment on above: Order Comment: Speci men Type: BLOOD SPECIMENOrdering Facility: [facility] Address: [address] [place] [address] Performed By: #### T SCR ####[facility] BLOOD BANKCLIA [id number] [address] [place] Rh Nom (Bld) Positive Normal [facility] Comment on above: Order Comment: Mathew portillo Type: BLOOD SPECIMENOrdering Facility: [facility] Address: [address] [place] [address] Performed By: #### T SCR ####[facility] BLOOD BANKCLIA [id number] [place] [address] [facility] TYPE AND SCREEN EXPIRATION 07/26/2024 23:59 Normal [facility] Comment on above: Order Comment: Speci lindsey Type: BLOOD SPECIMENOrdering Facility: [facility] Address: [address] [place] [address] Performed By: #### T SCR ####[facility] BLOOD BANKCLIA [id number] [place] [address] [facility] BONE MARROW ANALYSISon 07-21 ADDENDUM 1: Normal [facility] Comment on above: Order Comment: Mayurmagdalena portillo Type: BONE MARROW SPECIMENOrdering Facility: [facility] Address: [address] [place] [address] Result Comment: Per report from [facility], myeloid NGS demonstrated:RESULT SUMMARY Variants Detected Strong Clinical Significance Potential Clinical Significance 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 Bone marrow findings ([id number], June 2024) show normocellular marrow with dyserythropoiesis [...] clinical history, marrow morphology and cytogenetics (PMID: 52243533). 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 Recommend clinical correlation.Rn Icu slides including peripheral blood smear, aspirate, biopsy, iron stains and immunohistochemical stains for CD3, CD20, CD138 and kappa/lambda CISH were shown at [facility] hematopathology consensus conference via telepathology on 07.31.24 with consensus in the diagnosis (Dr. Espinal, Dr. Yanez).Addendum electronically signed by Elpidio Storm MD on 07/31/2024 at 1257 EDT Performed By: #### B MRT ####[facility] LABORATORYCLIA [id number] [address] AP DISCLAIMER Normal [facility] Comment on above: Order Comment: Speci men Type: BONE MARROW SPECIMENOrdering Facility: [facility] Address: [address] [place] [address] Result Comment: Freda murray Developed Test (LDT) Disclaimer:Performance characteristics of immunohistochemical, immunofluorescent, and chromogenic in-situ hybridization tests have been determined by the performing laboratory within [facility]'s [facility] Pathology and Laboratory Medicine Department ([facility], [facility], [facility], [facility], [facility], [facility], or [facility]) in a manner consistent with CLIA requirements. One or more of these tests may not have been cleared or approved by the FDA. [facility] is regulated under CLIA as qualified to perform high-complexity testing. These tests are used for clinical purposes. These should not be regarded as investigational or for research. Positive and negative controls stain appropriately. Performed By: #### B MRT ####[facility] LABORATORYCLIA [id number] [address] STATES [facility] CASE REPORT Normal [facility] Comment on above: Order Comment: Speci men Type: BONE MARROW SPECIMENOrdering Facility: [facility] Address: [address] [place] [address] Result Comment: Bone Marrow Pathology Report Case: [id number] Provider: Vicenta Noriega MD Collected: 07/21/2024 12:28 PMOrdering Location: [facility] Hematology/Oncology Received: 07/21/2024 01:43 PMPathologist: Elpidio Storm MDSpecimens: A) - Bone Marrow, Aspirate, Left, Posterior, Iliac Crest B) - Bone Marrow, Biopsy, Left, Posterior, Iliac Crest C) - Bone Marrow, Clot, Left, Posterior, Iliac Crest Performed By: #### B MRT ####[facility] LABORATORYCLIA [id number] [address] CLINICAL HISTORY Normal [facility] Comment on above: Order Comment: Mathew portillo Type: BONE MARROW SPECIMENOrdering Facility: [facility] Address: [address] [place] [address] Performed By: #### B MRT ####[facility] LABORATORYCLIA [id number] [address] DIAGNOSIS COMMENT Normal [facility] Comment on above: Order Comment: Mathew portillo Type: BONE MARROW SPECIMENOrdering Facility: [facility] Address: [address] [place] [address] Result Comment: The patient has a history [...] follow-up. Recommend correlation with pending myeloid NGS.Dr. Yunier Phan reviewed the case and agrees with the diagnosis. Performed By: #### B MRT ####[facility] LABORATORYCLIA [id number] [address] [place] Result Comment: This test was developed and its performance characteristics determined by [facility]'s [facility] [place] ([facility]). It has not been cleared or approved by the FDA. -[facility] is regulated under CLIA as qualified to perform high-complexity testing. This test is used for clinical purposes. It should not be regarded as investigational or for research. Performed By: #### F CLLRFLX ####[facility] LABCLIA [id number] [address] FINAL DIAGNOSIS Normal [facility] Comment on above: Order Comment: Speci men Type: BONE MARROW SPECIMENOrdering Facility: [facility] Address: [address] [place] [address] Result Comment: A, B , and C. [...] 1622 EDT Performed By: #### B MRT ####[facility] LABORATORYCLIA [id number] [address] FINAL PERFORMING LAB Normal [facility] Comment on above: Order Comment: Speci men Type: BONE MARROW SPECIMENOrdering Facility: [facility] Address: [address] [place] [address] Result Comment: Diag nostic interpretation performed at: [facility], [address] [place] [address] CLIA# [id number] Director: Panchito Phelps MD Performed By: #### B MRT ####[facility] LABORATORYCLIA [id number] [address] Result Comment: Diag nostic interpretation performed at [facility], [address] [place] [address] CLIA# [id number] Director: Frantz Rosas M.D. Performed By: #### F CLLRFLX ####[facility] LABCLIA [id number] [address] [place] DESCRIPTION Normal [facility] Comment on above: Order Comment: Speci men Type: BONE MARROW SPECIMENOrdering Facility: [facility] Address: [address] [place] [address] Result Comment: A. B one Marrow, Aspirate, [...] submitted in one cassette.Gross examination performed at [facility], [address] [id number] July 22, 2024 2:59 PM Performed By: #### B MRT ####[facility] LABORATORYCLIA [id number] [address] MICROSCOPIC DESCRIPTION Normal [facility] Comment on above: Order Comment: Speci men Type: BONE MARROW SPECIMENOrdering Facility: [facility] Address: [address] [place] [address] Result Comment: TATA PHERAL BLOOD:CBC (07/21/2024 11:30 [...] cellular).ANCILLARY TESTS: Flow cytometry: Per report from [facility], flow cytometry demonstrated:InterpretationThere is an immunophenotypically distinct B cell subset (CD19+ CD20+ sIg-; 6% of lymphocytes), in a background of polytypic B cells. Whether this represents the tissue equivalent of a monoclonal B cell lymphocytosis or low level involvement by a systemic lymphoma (e.g. marginal zone lymphoma, lymphoplasmacytic lymphoma, among other lymphoproliferative disorders with a nonspecific CD5/HU01-jftvqxqz immunophenotype) requires correlation with the clinical and [...] NegativeCD5 T-cells NegativeCD7 T/NK-cells NegativeCD8 T-cell subset RfeamepoKO71 B-cell subset CtwhbfbgSS92 Myeloid SfdkfqhbBO84/56 NK cells ZruktqxiAD86 B-cells BwshammhYZ10 B-cells BsytogefHE81 B-cells subset NflqjyphOZ22 Blast StwjekjrGL89 Taylor-leukocyte YzaqsnfyPK097 Dendritic JznnhsloAU767 B-cells Positive (dim)kappa/lambda B-cells NegativeTRBC1 T-cells NegativeFlow [...] see complete report Cytogenetics: Per report from [facility], cytogenetic analysis demonstrated:DIAGNOSIS: 46,XY,inv(9)(p12q13)c[20]INTERPRETATION: Normal, male [...] NGS pending. Performed By: #### B MRT ####[facility] LABORATORYCLIA [id number] [place] [address] [place] BONE MARROW CHROMOSOME ANALo n 07-21-2024 CHROMOSOME BM Normal [facility] Comment on above: Order Comment: Speci men Type: BONE MARROW SPECIMENOrdering Facility: [facility] Address: [address] [place] [address] Result Comment: [place] [place] Accession Number: [id number]: VICENTA NORIEGAPathologist: LottSurgical Pathology No: [id number] diagnosis: Myelodysplastic syndromeSpecimen Type: Bone marrowReceived Date: [...] correlation is recommended.Interpretation performed by Philip De Oliveiar, PhD, FACMGPerformed by [facility] HospitalMolecular Pathology and Cytogenomics ([id number]), Division of LaboratoryMedicineRobert Jose Renteria Department of Pathology & Laboratory Medicine,Diagnostics [address] [place], [place] [address]Phone: Toll free: Performed By: #### C [facility] ####[facility] [id number] [place] [address] [place] BRIEF OP NOTon 07-21-2024 BRIEF OP NOT Normal [facility] CBC W Auto Differential pane l (Bld)on 07-21-2024 Basophils (Bld) [#/Vol] [facility] Basophils/100 WBC (Bld) 0.2 % [facility] Differential cell count method Nom (Bld) Auto [facility] Eosinophils (Bld) [#/Vol] [facility] Eosinophils/100 WBC (Bld) 0.4 % [facility] Erythrocyte distribution width (RBC) [Ratio] 15.9 % High 11.5 - 15.0 % [facility] Hematocrit (Bld) [Volume fraction] 23.6 % Low 39.0 - 51.0 % [facility] Hemoglobin (Bld) [Mass/Vol] 7.9 g/dL Low 13.0 - 17.0 g/dL [facility] Immature granulocytes (Bld) [#/Vol] 0.03 10*3/uL [facility] Immature granulocytes/100 WBC (Bld) 0.6 % [facility] Interpretation and review of laboratory results Abnormal [facility] Lymphocytes (Bld) [#/Vol] 2.07 10*3/uL [facility] Lymphocytes/100 WBC (Bld) 44.4 % [facility] MCH (RBC) [Entitic mass] 28.5 pg 26.0 - 34.0 pg [facility] MCHC (RBC) [Mass/Vol] 33.5 g/dL 30.5 - 36.0 g/dL [facility] MCV (RBC) [Entitic vol] 85.2 fL 80.0 - 100.0 fL [facility] Monocytes (Bld) [#/Vol] 0.42 10*3/uL [facility] Monocytes/100 WBC (Bld) 9 % [facility] Neutrophils (Bld) [#/Vol] 2.11 10*3/uL [facility] Neutrophils/100 WBC (Bld) 45.4 % [facility] Nucleated RBC (Bld) [#/Vol] 0.04 10*3/uL High [facility] Nucleated RBC/100 WBC (Bld) [Ratio] 0.9 % /100 WBC [facility] Platelet mean volume (Bld) [Entitic vol] 10.7 fL 9.0 - 12.7 fL [facility] Platelets (Bld) [#/Vol] 99 10*3/uL Low [facility] Comment on above: No clot detected. RBC (Bld) [#/Vol] 2.77 10*6/uL Low 4.20 - 6.0 0 m/uL [facility] WBC (Bld) [#/Vol] 4.66 10*3/uL [facility] Basophils (Bld) [#/Vol] 10*3/uL Normal <0.11 [facility] Comment on above: Order Comment: Speci men Type: BLOOD SPECIMENOrdering Facility: [facility] Address: [address] [place] [address] Performed By: #### 5 7021-8 ####[facility] LABORATORYCLIA [id number] [address] [place] Basophils/100 WBC (Bld) 0.2 % Normal [facility] Comment on above: Order Comment: Speci men Type: BLOOD SPECIMENOrdering Facility: [facility] Address: [address] [place] [address] Performed By: #### 5 7021-8 ####[facility] LABORATORYCLIA [id number] [address] [place] Differential cell count method Nom (Bld) Auto Normal [facility] Comment on above: Order Comment: Speci men Type: BLOOD SPECIMENOrdering Facility: [facility] Address: [address] [place] [address] Performed By: #### 5 7021-8 ####[facility] LABORATORYCLIA [id number] [address] [place] Eosinophils (Bld) [#/Vol] 10*3/uL Normal <0.46 [facility] Comment on above: Order Comment: Speci men Type: BLOOD SPECIMENOrdering Facility: [facility] Address: [address] [place] [address] Performed By: #### 5 7021-8 ####[facility] LABORATORYCLIA [id number] [address] [place] Eosinophils/100 WBC (Bld) 0.4 % Normal [facility] Comment on above: Order Comment: Speci men Type: BLOOD SPECIMENOrdering Facility: [facility] Address: [address] [place] [address] Performed By: #### 5 7021-8 ####[facility] LABORATORYCLIA [id number] [address] [place] Erythrocyte distribution width (RBC) [Ratio] 15.9 % High 11.5-15.0 [facility] Comment on above: Order Comment: Speci men Type: BLOOD SPECIMENOrdering Facility: [facility] Address: [address] [place] [address] Performed By: #### 5 7021-8 ####[facility] LABORATORYCLIA [id number] [address] [place] Hematocrit (Bld) [Volume fraction] 23.6 % Low 39.0-51.0 [facility] Comment on above: Order Comment: Speci men Type: BLOOD SPECIMENOrdering Facility: [facility] Address: [address] [place] [address] Performed By: #### 5 7021-8 ####[facility] LABORATORYCLIA [id number] [place] [address] [place] Hemoglobin (Bld) [Mass/Vol] 7.9 g/dL Low 13.0-17.0 [facility] Comment on above: Order Comment: Speci men Type: BLOOD SPECIMENOrdering Facility: [facility] Address: [address] [place] [address] Performed By: #### 5 7021-8 ####[facility] LABORATORYCLIA [id number] [address] [place] Immature granulocytes (Bld) [#/Vol] 0.03 10*3/uL Normal <0.10 [facility] Comment on above: Order Comment: Speci men Type: BLOOD SPECIMENOrdering Facility: [facility] Address: [address] [place] [address] Performed By: #### 5 7021-8 ####[facility] LABORATORYCLIA [id number] [address] [place] Immature granulocytes/100 WBC (Bld) 0.6 % Normal [facility] Comment on above: Order Comment: Speci men Type: BLOOD SPECIMENOrdering Facility: [facility] Address: [address] [place] [address] Performed By: #### 5 7021-8 ####[facility] LABORATORYCLIA [id number] [place] [address] [place] Lymphocytes (Bld) [#/Vol] 2.07 10*3/uL Normal 1.00-4.00 [facility] Comment on above: Order Comment: Speci men Type: BLOOD SPECIMENOrdering Facility: [facility] Address: [address] [place] [address] Performed By: #### 5 7021-8 ####[facility] LABORATORYCLIA [id number] [address] STATES [facility] Lymphocytes/100 WBC (Bld) 44.4 % Normal [facility] Comment on above: Order Comment: Speci men Type: BLOOD SPECIMENOrdering Facility: [facility] Address: [address] [place] [address] Performed By: #### 5 7021-8 ####[facility] LABORATORYCLIA [id number] [address] [place] MCH (RBC) [Entitic mass] 28.5 pg Normal 26.0-34.0 [facility] Comment on above: Order Comment: Speci men Type: BLOOD SPECIMENOrdering Facility: [facility] Address: [address] [place] [address] Performed By: #### 5 7021-8 ####[facility] LABORATORYCLIA [id number] [address] [place] MCHC (RBC) [Mass/Vol] 33.5 g/dL Normal 30.5-36.0 [facility] Comment on above: Order Comment: Speci men Type: BLOOD SPECIMENOrdering Facility: [facility] Address: [address] [place] [address] Performed By: #### 5 7021-8 ####[facility] LABORATORYCLIA [id number] [address] [place] MCV (RBC) [Entitic vol] 85.2 fL Normal 80.0-100.0 [facility] Comment on above: Order Comment: Speci men Type: BLOOD SPECIMENOrdering Facility: [facility] Address: [address] [place] [address] Performed By: #### 5 7021-8 ####[facility]ORATORYCLIA [id number] [address] [place] Monocytes (Bld) [#/Vol] 0.42 10*3/uL Normal <0.87 [facility] Comment on above: Order Comment: Speci men Type: BLOOD SPECIMENOrdering Facility: [facility] Address: [address] [place] [address] Performed By: #### 5 7021-8 ####[facility] LABORATORYCLIA [id number] [address] [place] Monocytes/100 WBC (Bld) 9.0 % Normal [facility] Comment on above: Order Comment: Speci men Type: BLOOD SPECIMENOrdering Facility: [facility] Address: [address] [place] [address] Performed By: #### 5 7021-8 ####[facility] LABORATORYCLIA [id number] [place] [address] [place] Neutrophils (Bld) [#/Vol] 2.11 10*3/uL Normal 1.45-7.50 [facility] Comment on above: Order Comment: Speci men Type: BLOOD SPECIMENOrdering Facility: [facility] Address: [address] [place] [address] Performed By: #### 5 7021-8 ####[facility] LABORATORYCLIA [id number] [address] [place] Neutrophils/100 WBC (Bld) 45.4 % Normal [facility] Comment on above: Order Comment: Speci men Type: BLOOD SPECIMENOrdering Facility: [facility] Address: [address] [place] [address] Performed By: #### 5 7021-8 ####[facility] LABORATORYCLIA [id number] [place] [address] [place] Nucleated RBC (Bld) [#/Vol] 0.04 10*3/uL High <0.01 [facility] Comment on above: Order Comment: Speci men Type: BLOOD SPECIMENOrdering Facility: [facility] Address: [address] [place] [address] Performed By: #### 5 7021-8 ####[facility] LABORATORYCLIA [id number] [address] [place] Nucleated RBC/100 WBC (Bld) [Ratio] 0.9 /100 WBC Normal [facility] Comment on above: Order Comment: Speci men Type: BLOOD SPECIMENOrdering Facility: [facility] Address: [address] [place] [address] Performed By: #### 5 7021-8 ####[facility] LABORATORYCLIA [id number] [place] [address] [place] Platelet mean volume (Bld) [Entitic vol] 10.7 fL Normal 9.0-12.7 [facility] Comment on above: Order Comment: Speci men Type: BLOOD SPECIMENOrdering Facility: [facility] Address: [address] [place] [address] Performed By: #### 5 7021-8 ####[facility] LABORATORYCLIA [id number] [address] [place] Platelets (Bld) [#/Vol] 99 10*3/uL Low 150-400 [facility] Comment on above: Order Comment: Speci men Type: BLOOD SPECIMENOrdering Facility: [facility] Address: [address] [place] [address] Result Comment: No c lot detected. Performed By: #### 5 7021-8 ####[facility] LABORATORYCLIA [id number] [place] [address] [place] RBC (Bld) [#/Vol] 2.77 10*6/uL Low 4.20-6.00 [facility] Comment on above: Order Comment: Speci men Type: BLOOD SPECIMENOrdering Facility: [facility] Address: [address] [place] [address] Performed By: #### 5 7021-8 ####[facility] LABORATORYCLIA [id number] [place] [address] [place] WBC (Bld) [#/Vol] 4.66 10*3/uL Normal 3.70-11.00 [facility] Comment on above: Order Comment: Speci men Type: BLOOD SPECIMENOrdering Facility: [facility] Address: [address] [place] [address] Performed By: #### 5 7021-8 ####[facility] LABORATORYCLIA [id number] [place] [address] [place] [facility] BONE MARROW BX AND ASPIRA TIONon 07-21-2024 CT BONE MARROW BX AND ASPIRATION Normal [facility] DNA EXTRACTION BONE MARROW ( BUFFY COAT)on 07-21-2024 DNA EXTRACTION BONE MARROW (BUFFY COAT) Normal [facility] Comment on above: Order Comment: Speci men Type: BONE MARROW SPECIMENOrdering Facility: [facility] Address: [address] [place] [address] Result Comment: This specimen was received and successfully processed for future DNA purification should molecular testing be needed. Specimens will be available for 3 years from date of collection.To order testing on this specimen for [facility] patients, please place an [facility] order for DNA and RNA Clinical Testing ([id number]). To order testing for patients outside of the [facility] system, please request DNA and RNA for Clinical Testing, order code [id number].If additional paperwork is required for testing, please send completed forms via secure email to . Performed By: #### N UCBUF ####[facility] LIMSCLIA [id number] [address] [place] FLOW CYTOMETRY FOR LEUKEMIA/ LYMPHOMA (FCLL) PERFORMABLEon 07-21-2024 FLOW CYTOMETRY ORDER STATUS Results will be reported under F case ID when completed Normal [facility] Comment on above: Order Comment: Speci men Type: BONE MARROW SPECIMENOrdering Facility: [facility] Address: [address] [place] [address] Performed By: #### F CLLP ####[facility] LABCLIA [id number] [address] [place] FLOW CYTOMETRY FOR LEUKEMIA/ LYMPHOMA (FCLL) REFLEXon 07-21-2024 FLOW CYTOMETRY RESULTS Normal [facility] Comment on above: Order Comment: Speci men Type: BONE MARROW SPECIMENOrdering Facility: [facility] Address: [address] [place] [address] Result Comment: Spec imen type: Bone marrow aspirateMorphology comments: See bone marrow biopsy report ([id number])Viability: 98%Flow Cytometry Bone Marrow ImmunophenotypingMarker Normal Cell Type Result (Abnormal B cell subset)CD2 T/NK cells NegativeCD3 T-cells NegativeCD4 T-cell subset NegativeCD5 T-cells NegativeCD7 T/NK-cells NegativeCD8 T-cell subset IgxytwwoPM24 B-cell subset VvkasykfWV75 Myeloid RtktmmsvZM37/56 NK cells JeicvtiwEF88 B-cells LxhrddgoZC26 B-cells BhnrpzxrIA66 B-cells subset UsixjlayKQ07 Blast KhckcdvbXT28 Taylor-leukocyte FviyaxxuSQ096 Dendritic ZxuimnwlPU048 B-cells Positive (dim)kappa/lambda B-cells NegativeTRBC1 T-cells NegativeFlow [...] 56% of total events. Blasts are not increased.SUN/JENNIFER 07/22/2024 Performed By: #### F CLLRFLX ####[facility] LABCLIA [id number] [address] [place] A. Bone Marrow Normal [facility] Comment on above: Order Comment: Specmagdalena portillo Type: BONE MARROW SPECIMENOrdering Facility: [facility] Address: [address] [place] [address] Result Comment: RECE IVED 4 MLS BONE MARROW IN HEPARIN Performed By: #### F CLLRFLX ####[facility] LABCLIA [id number] [place] [address] [place] INTERPRETATION Normal [facility] Comment on above: Order Comment: Speci men Type: BONE MARROW SPECIMENOrdering Facility: [facility] Address: [address] [place] [address] Result Comment: Ther e is an immunophenotypically distinct B cell subset (CD19+ CD20+ sIg-; 6% of lymphocytes), in a background of polytypic B cells. Whether this represents the tissue equivalent of a monoclonal B cell lymphocytosis or low level involvement by a systemic lymphoma (e.g. marginal zone lymphoma, lymphoplasmacytic lymphoma, among other lymphoproliferative disorders with a nonspecific CD5/VE30-onilnske immunophenotype) requires correlation with the clinical and [...] 1404 EDT Performed By: #### F CLLRFLX ####[facility] LABCLIA [id number] [place] [address] [place] FLT3 ITD HN BONE MARROWon CLARITY SIGNOUT PATHOLOGIST [id number] Normal [facility] Comment on above: Order Comment: Speci lindsey Type: BONE MARROW SPECIMENOrdering Facility: [facility] Address: [address] [place] [address] Performed By: #### [facility] ####[facility] [id number] [place] [address] [place] FLT3 ITD HN PANEL BONE MARROW Normal [facility] Comment on above: Order Comment: Speci lindsey Type: BONE MARROW SPECIMENOrdering Facility: [facility] Address: [address] [place] [address] Result Comment: FLT3 Internal Tandem Duplication (ITD) Mutation TestingLaboratory Accession Number: [id number] Internal Tandem Duplication (ITD) mutation: Not DetectedComment:FLT3/ITD [...] from the specimen provided. Regions of the UVI0vqehrpba kinase receptor gene are subjected to the [...] within myeloid neoplasms.References:1) Luis MP, Ml P, Tiacci E, et al. Mutational landscapeof AML with normal cytogenetics: biological and clinical implications.Blood Rev.2013;27:13-22.2) Mingo CANAS, Lanre M, Mo ME, et al. Prognostic relevance ofintegrated genetic profiling in acute myeloid leukemia. N Engl J Med.2011May 16;366 (12):1079-89.3) Erin H, Blair E, Jessenia Lai, et al. Diagnosis and mangement ofAML in adults: 2017 ELN recommendations from an international expertpanel. Blood [phone] (2017).Disclaimer:This test was developed and its performance characteristics determinedby [facility]'s Pathology and Laboratory Medicine Department. Ithas not been cleared or approved by the FDA. [facility]'s[facility] Medicine Department is regulated under CLIAas certified to perform high-complexity testing. This test is used forclinical purposes. It should not be regarded as investigational or forresearch.Test performed at [facility], [address] [place] [address]. CLIA Number: [id number] performed at remote location (SSR1) by Jesusita, PhD, [facility] Performed By: #### M YNG, F3IM ####[facility] LIMSCLIA [id number] [place] [address] [place] Guidance for biopsy of Bone marrowon 07-21-2024 IMPRESSION: Veena elena successful CT-guided bone marrow aspirate and biopsy. Foundry Process Engineer: DIVINA Transcribe Date/Time: Jul 21 2024 1:01P Dictated by : MIGUELANGEL MAGANA MD This examination was interpreted and the report reviewed and electronically signed by: MIGUELANGEL MAGANA MD on Jul 21 2024 1:01PM [facility] RADIOLOGY SYNGO * * *Final Report* * * DATE OF EXAM: Jul 21 2024 12:42PM [facility] 2218 - CT BONE MARROW BX AND [...] easily. The core specimen appeared adequate. . [facility] RADIOLOG[facility] SYNGO Provider, [facility] - 07/21/2024 * * *Final Report* * * DATE OF EXAM: Jul 21 2024 12:42PM [facility] 2218 - CT BONE MARROW BX AND [...] successful CT-guided bone marrow aspirate and biopsy. Foundry Process Engineer: DIVINA Transcribe Date/Time: Jul 21 2024 1:01P Dictated by : MIGUELANGEL MAGANA MD This examination was interpreted and the report reviewed and electronically signed by: MIGUELANGEL MAGANA MD on Jul 21 2024 1:01PM EST [facility] Radiology Study observation (narrative) [facility] Guidance for biopsy of Bone marrowOrdered By: [facility] Provider on 07-21-2024 [facility] HISTORY PHYSICALon HISTORY PHYSICAL Normal [facility] MYELOID NGS PANEL BONE MARRO Won 07-21-2024 MYELOID NGS PANEL BONE MARROW Normal [facility] Comment on above: Order Comment: Specmagdalena portillo Type: BONE MARROW SPECIMENOrdering Facility: [facility] Address: [address] [place] [address] Result Comment: Myel oid NGS Panel Bone MarrowLaboratory Accession Number: [id number]:Please see linked document and/or separate report for full result whenavailable.Interpretation performed by Tracy Curtis MD Performed By: #### M YNGEH, F3IM ####[facility] LIMSCLIA [id number] [facility] [place] [address] [place] CBC W Auto Differential pane l (Bld)on 07-16-2024 Basophils (Bld) [#/Vol] 10*3/uL Normal <0.11 [facility] Comment on above: Order Comment: Mathew portillo Type: BLOOD SPECIMENOrdering Facility: [facility] Address: [address] [place] [address] Performed By: #### 5 7021-8 ####[facility] [place] LABCLIA [id number] [place] [address] [place] Basophils/100 WBC (Bld) 0.3 % Normal [facility] Comment on above: Order Comment: Speci men Type: BLOOD SPECIMENOrdering Facility: [facility] Address: [address] [place] [address] Performed By: #### 5 7021-8 ####[facility] [place] LABCLIA [id number] [place] [address] [facility] Differential cell count method Nom (Bld) Auto Normal [facility] Comment on above: Order Comment: Speci men Type: BLOOD SPECIMENOrdering Facility: [facility] Address: [address] [place] [address] Performed By: #### 5 7021-8 ####[facility] [place] LABCLIA [id number] [facility] [place] [address] [place] [facility] Eosinophils (Bld) [#/Vol] 10*3/uL Normal <0.46 [facility] Comment on above: Order Comment: Speci men Type: BLOOD SPECIMENOrdering Facility: [facility] Address: [address] [place] [address] Performed By: #### 5 7021-8 ####[facility] [place] LABCLIA [id number] [facility] [address] [facility] Eosinophils/100 WBC (Bld) 0.3 % Normal [facility] Comment on above: Order Comment: Speci men Type: BLOOD SPECIMENOrdering Facility: [facility] Address: [address] [place] [address] Performed By: #### 5 7021-8 ####[facility] [place] LABCLIA [id number] [facility] [place] [address] [place] Erythrocyte distribution width (RBC) [Ratio] 16.8 % High 11.5-15.0 [facility] Comment on above: Order Comment: Speci men Type: BLOOD SPECIMENOrdering Facility: [facility] Address: [address] [place] [address] Performed By: #### 5 7021-8 ####[facility] [place] LABCLIA [id number] [facility] [place] [address] [place] Hematocrit (Bld) [Volume fraction] 20.1 % Low 39.0-51.0 [facility] Comment on above: Order Comment: Speci men Type: BLOOD SPECIMENOrdering Facility: [facility] Address: [address] [place] [address] Performed By: #### 5 7021-8 ####[facility] [place] LABCLIA [id number] [facility] [place] [address] [place] Hemoglobin (Bld) [Mass/Vol] 6.7 g/dL Low 13.0-17.0 [facility] Comment on above: Order Comment: Speci men Type: BLOOD SPECIMENOrdering Facility: [facility] Address: [address] [place] [address] Performed By: #### 5 7021-8 ####[facility] [place] LABCLIA [id number] [facility] [place] [address] [place] Immature granulocytes (Bld) [#/Vol] 10*3/uL Normal <0.10 [facility] Comment on above: Order Comment: Speci men Type: BLOOD SPECIMENOrdering Facility: [facility] Address: [address] [place] [address] Performed By: #### 5 7021-8 ####[facility] [place] LABCLIA [id number] [place] [address] [place] Immature granulocytes/100 WBC (Bld) 0.3 % Normal [facility] Comment on above: Order Comment: Speci men Type: BLOOD SPECIMENOrdering Facility: [facility] Address: [address] [place] [address] Performed By: #### 5 7021-8 ####[facility] [place] LABCLIA [id number] [place] [address] [place] Lymphocytes (Bld) [#/Vol] 2.82 10*3/uL Normal 1.00-4.00 [facility] Comment on above: Order Comment: Speci men Type: BLOOD SPECIMENOrdering Facility: [facility] Address: [address] [place] [address] Performed By: #### 5 7021-8 ####[facility] [place] LABCLIA [id number] [place] [address] [facility] Lymphocytes/100 WBC (Bld) 44.3 % Normal [facility] Comment on above: Order Comment: Speci men Type: BLOOD SPECIMENOrdering Facility: [facility] Address: [address] [place] [address] Performed By: #### 5 7021-8 ####[facility] [place] LABCLIA [id number] [place] [address] [facility] MCH (RBC) [Entitic mass] 27.9 pg Normal 26.0-34.0 [facility] Comment on above: Order Comment: Speci men Type: BLOOD SPECIMENOrdering Facility: [facility] Address: [address] [place] [address] Performed By: #### 5 7021-8 ####[facility] [place] LABCLIA [id number] [place], [place] [address] [place] [address] MCHC (RBC) [Mass/Vol] 33.3 g/dL Normal 30.5-36.0 [facility] Comment on above: Order Comment: Speci men Type: BLOOD SPECIMENOrdering Facility: [facility] Address: [address] [place] [address] Performed By: #### 5 7021-8 ####[facility] LABCLIA [id number] [place] [address] [place] MCV (RBC) [Entitic vol] 83.8 fL Normal 80.0-100.0 [facility] Comment on above: Order Comment: Speci men Type: BLOOD SPECIMENOrdering Facility: [facility] Address: [address] [place] [address] Performed By: #### 5 7021-8 ####[facility] [place] LABCLIA [id number] [place] [address] [facility] [place] Monocytes (Bld) [#/Vol] 0.46 10*3/uL Normal <0.87 [facility] Comment on above: Order Comment: Speci men Type: BLOOD SPECIMENOrdering Facility: [facility] Address: [address] [place] [address] Performed By: #### 5 7021-8 ####[facility] [place] LABCLIA [id number] [place] [address] [place] Monocytes/100 WBC (Bld) 7.2 % Normal [facility] Comment on above: Order Comment: Speci men Type: BLOOD SPECIMENOrdering Facility: [facility] Address: [address] [place] [address] Performed By: #### 5 7021-8 ####[facility] [place] LABCLIA [id number] [facility] [place] [address] [place] Neutrophils (Bld) [#/Vol] 3.02 10*3/uL Normal 1.45-7.50 [facility] Comment on above: Order Comment: Speci men Type: BLOOD SPECIMENOrdering Facility: [facility] Address: [address] [place] [address] Performed By: #### 5 7021-8 ####[facility] [place] LABCLIA [id number] [facility] [place] [address] [place] [facility] Neutrophils/100 WBC (Bld) 47.6 % Normal [facility] Comment on above: Order Comment: Speci men Type: BLOOD SPECIMENOrdering Facility: [facility] Address: [address] [place] [address] Performed By: #### 5 7021-8 ####[facility] [place] LABCLIA [id number] [facility] [place] [address] [place] Nucleated RBC (Bld) [#/Vol] Normal [facility] Comment on above: Order Comment: Speci men Type: BLOOD SPECIMENOrdering Facility: [facility] Address: [address] [place] [address] Performed By: #### 5 7021-8 ####[facility] [place] LABCLIA [id number] [place] [address] [facility] Nucleated RBC/100 WBC (Bld) [Ratio] Normal [facility] Comment on above: Order Comment: Speci men Type: BLOOD SPECIMENOrdering Facility: [facility] Address: [address] [place] [address] Performed By: #### 5 7021-8 ####[facility] LABCLIA [id number] [place] [address] [place] [facility] Platelet mean volume (Bld) [Entitic vol] 11.0 fL Normal 9.0-12.7 [facility] Comment on above: Order Comment: Speci men Type: BLOOD SPECIMENOrdering Facility: [facility] Address: [address] [place] [address] Performed By: #### 5 7021-8 ####[facility] LABCLIA [id number] [place] [address] [place] Platelets (Bld) [#/Vol] 86 10*3/uL Low 150-400 [facility] Comment on above: Order Comment: Speci men Type: BLOOD SPECIMENOrdering Facility: [facility] Address: [address] [place] [address] Result Comment: No c lot detected. Performed By: #### 5 7021-8 ####[facility] LABCLIA [id number] [place] [address] [place] RBC (Bld) [#/Vol] 2.40 10*6/uL Low 4.20-6.00 [facility] Comment on above: Order Comment: Speci men Type: BLOOD SPECIMENOrdering Facility: [facility] Address: [address] [place] [address] Performed By: #### 5 7021-8 ####[facility] LABCLIA [id number] [place] [address] [place] OF [place] WBC (Bld) [#/Vol] 6.36 10*3/uL Normal 3.70-11.00 [facility] Comment on above: Order Comment: Speci men Type: BLOOD SPECIMENOrdering Facility: [facility] Address: [address] [place] [address] Performed By: #### 5 7021-8 ####[facility] [place] LABCLIA [id number] [place] [address] [facility] TYPE + SCREENon 07-16-2024 ABO B Normal [facility] Comment on above: Order Comment: Speci men Type: BLOOD SPECIMENOrdering Facility: [facility] Address: [address] [place] [address] Performed By: #### T SCR ####[facility] BLOOD BANKCLIA [id number] [place] [id number] [facility] Rh Nom (Bld) Positive Normal [facility] Comment on above: Order Comment: Speci men Type: BLOOD SPECIMENOrdering Facility: [facility] Address: [address] [place] [address] Performed By: #### T SCR ####[facility] BLOOD BANKCLIA [id number] [place] [id number] [facility] TYPE AND SCREEN EXPIRATION 07/19/2024 23:59 Normal [facility] Comment on above: Order Comment: Speci men Type: BLOOD SPECIMENOrdering Facility: [facility] Address: [address] [place] [address] Performed By: #### T SCR ####[facility] BLOOD BANKCLIA [id number] [address] CNOVon 07-15-2024 CNOV Office Visit (SPNMED ) -- JOSS OROPEZA ([id number]) 1945 M Date Time Provider Department 07/15/24 9:40 AM TRACY FARFAN SPNMED During your visit today, we recorded the following information about you: Pulse Blood pressure Weight Height 102/minute 79/41 95.6 kg 1.765 m Tracy Farfan PA-C 07/15/2024 10:43 AM Signed [facility] [address] [place] [address] 07/15/2024 ASSESSMENT AND PLAN: Assessment : Encounter [...] today with this patient visit. This includes [id number] time, review of chart records regarding conservative care history, spine-pertinent imaging, and communication/care coordination with referring provider, problem-specific history-taking and counseling/education regarding treatment options. cc: Bryce Garland [address] [phone] Results of consultation to be transmitted via electronic medical record for those providers who practice within [facility] or with access to [employer] via [employer], or via letter. ########################## ########################## #################### CHIEF COMPLAINT: Patient is here for the lower back pain. Has this pain for a month and half, he was lifting something heavy and pain started. Level of the pain is at 7/10. Will have stabbing pain with some movements. Has general weakness. Has flare ups, the last on was about 8 years ago. HPI: see Dis (more content not included)... Normal [facility] CBC W Auto Differential pane l (Bld)on 07-09-2024 Basophils (Bld) [#/Vol] 0.03 10*3/uL [facility] Basophils/100 WBC (Bld) 0.4 % [facility] Differential cell count method Nom (Bld) Auto [facility] Eosinophils (Bld) [#/Vol] [facility] Eosinophils/100 WBC (Bld) 0.1 % [facility] Erythrocyte distribution width (RBC) [Ratio] 16.2 % High 11.5 - 15.0 % [facility] Hematocrit (Bld) [Volume fraction] 23.9 % Low 39.0 - 51.0 % [facility] Hemoglobin (Bld) [Mass/Vol] 7.9 g/dL Low 13.0 - 17.0 g/dL [facility] Immature granulocytes (Bld) [#/Vol] 0.12 10*3/uL High [facility] Immature granulocytes/100 WBC (Bld) 1.4 % [facility] Interpretation and review of laboratory results Abnormal [facility] Lymphocytes (Bld) [#/Vol] 2.74 10*3/uL [facility] Lymphocytes/100 WBC (Bld) 32.9 % [facility] MCH (RBC) [Entitic mass] 27.4 pg 26.0 - 34.0 pg [facility] MCHC (RBC) [Mass/Vol] 33.1 g/dL 30.5 - 36.0 g/dL [facility] MCV (RBC) [Entitic vol] 83 fL 80.0 - 100.0 fL [facility] Monocytes (Bld) [#/Vol] 0.47 10*3/uL [facility] Monocytes/100 WBC (Bld) 5.6 % [facility] Neutrophils (Bld) [#/Vol] 4.97 10*3/uL [facility] Neutrophils/100 WBC (Bld) 59.6 % [facility] Nucleated RBC (Bld) [#/Vol] [facility] Nucleated RBC/100 WBC (Bld) [Ratio] [facility] Platelet mean volume (Bld) [Entitic vol] 11.8 fL 9.0 - 12.7 fL [facility] Platelets (Bld) [#/Vol] 75 10*3/uL Low [facility] Comment on above: No clot detected. RBC (Bld) [#/Vol] 2.88 10*6/uL Low 4.20 - 6.0 0 m/uL [facility] WBC (Bld) [#/Vol] 8.34 10*3/uL [facility] Basophils (Bld) [#/Vol] 0.03 10*3/uL Normal <0.11 [facility] Comment on above: Order Comment: Speci men Type: BLOOD SPECIMENOrdering Facility: [facility] Address: [address] [place] [address] Performed By: #### 5 7021-8 ####[facility] LABCLIA [id number] [place] [address] [place] Basophils/100 WBC (Bld) 0.4 % Normal [facility] Comment on above: Order Comment: Speci men Type: BLOOD SPECIMENOrdering Facility: [facility] Address: [address] [place] [address] Performed By: #### 5 7021-8 ####[facility] LABCLIA [id number] [place] [address] [facility] Differential cell count method Nom (Bld) Auto Normal [facility] Comment on above: Order Comment: Speci men Type: BLOOD SPECIMENOrdering Facility: [facility] Address: [address] [place] [address] Performed By: #### 5 7021-8 ####[facility] [place] LABCLIA [id number] [place] [address] [place] Eosinophils (Bld) [#/Vol] 10*3/uL Normal <0.46 [facility] Comment on above: Order Comment: Speci men Type: BLOOD SPECIMENOrdering Facility: [facility] Address: [address] [place] [address] Performed By: #### 5 7021-8 ####[facility] [place] LABCLIA [id number] [place] [address] [place] Eosinophils/100 WBC (Bld) 0.1 % Normal [facility] Comment on above: Order Comment: Speci men Type: BLOOD SPECIMENOrdering Facility: [facility] Address: [address] [place] [address] Performed By: #### 5 7021-8 ####[facility] [place] LABCLIA [id number] [place] [address] [place] Erythrocyte distribution width (RBC) [Ratio] 16.2 % High 11.5-15.0 [facility] Comment on above: Order Comment: Speci men Type: BLOOD SPECIMENOrdering Facility: [facility] Address: [address] [place] [address] Performed By: #### 5 7021-8 ####[facility] [place] LABCLIA [id number] [place] [address] [place] Hematocrit (Bld) [Volume fraction] 23.9 % Low 39.0-51.0 [facility] Comment on above: Order Comment: Speci men Type: BLOOD SPECIMENOrdering Facility: [facility] Address: [address] [place] [address] Performed By: #### 5 7021-8 ####[facility] [place] LABCLIA [id number] [place] [address] [place] Hemoglobin (Bld) [Mass/Vol] 7.9 g/dL Low 13.0-17.0 [facility] Comment on above: Order Comment: Speci men Type: BLOOD SPECIMENOrdering Facility: [facility] Address: [address] [place] [address] Performed By: #### 5 7021-8 ####[facility] [place] LABCLIA [id number] [place] [address] [place] Immature granulocytes (Bld) [#/Vol] 0.12 10*3/uL High <0.10 [facility] Comment on above: Order Comment: Speci men Type: BLOOD SPECIMENOrdering Facility: [facility] Address: [address] [place] [address] Performed By: #### 5 7021-8 ####[facility] [place] LABCLIA [id number] [place] [address] [facility] Immature granulocytes/100 WBC (Bld) 1.4 % Normal [facility] Comment on above: Order Comment: Speci men Type: BLOOD SPECIMENOrdering Facility: [facility] Address: [address] [place] [address] Performed By: #### 5 7021-8 ####[facility] [place] LABCLIA [id number] [place] [address] [facility] [place] Lymphocytes (Bld) [#/Vol] 2.74 10*3/uL Normal 1.00-4.00 [facility] Comment on above: Order Comment: Speci men Type: BLOOD SPECIMENOrdering Facility: [facility] Address: [address] [place] [address] Performed By: #### 5 7021-8 ####[facility] [place] LABCLIA [id number] [place] [address] [facility] Lymphocytes/100 WBC (Bld) 32.9 % Normal [facility] Comment on above: Order Comment: Speci men Type: BLOOD SPECIMENOrdering Facility: [facility] Address: [address] [place] [address] Performed By: #### 5 7021-8 ####[facility] [place] LABCLIA [id number] [place] [address] [facility] OF [place] MCH (RBC) [Entitic mass] 27.4 pg Normal 26.0-34.0 [facility] Comment on above: Order Comment: Speci men Type: BLOOD SPECIMENOrdering Facility: [facility] Address: [address] [place] [address] Performed By: #### 5 7021-8 ####[facility] [place] LABCLIA [id number] [facility] [place] [address] [place] [facility] MCHC (RBC) [Mass/Vol] 33.1 g/dL Normal 30.5-36.0 [facility] Comment on above: Order Comment: Speci men Type: BLOOD SPECIMENOrdering Facility: [facility] Address: [address] [place] [address] Performed By: #### 5 7021-8 ####[facility] [place] LABCLIA [id number] [facility] [place] [address] [place] MCV (RBC) [Entitic vol] 83.0 fL Normal 80.0-100.0 [facility] Comment on above: Order Comment: Speci men Type: BLOOD SPECIMENOrdering Facility: [facility] Address: [address] [place] [address] Performed By: #### 5 7021-8 ####[facility] [place] LABCLIA [id number] [place] [address] [place] Monocytes (Bld) [#/Vol] 0.47 10*3/uL Normal <0.87 [facility] Comment on above: Order Comment: Speci men Type: BLOOD SPECIMENOrdering Facility: [facility] Address: [address] [place] [address] Performed By: #### 5 7021-8 ####[facility] [place] LABCLIA [id number] [place] [address] [place] Monocytes/100 WBC (Bld) 5.6 % Normal [facility] Comment on above: Order Comment: Speci men Type: BLOOD SPECIMENOrdering Facility: [facility] Address: [address] [place] [address] Performed By: #### 5 7021-8 ####[facility] [place] LABCLIA [id number] [facility] [place] [address] [facility] [place] Neutrophils (Bld) [#/Vol] 4.97 10*3/uL Normal 1.45-7.50 [facility] Comment on above: Order Comment: Speci men Type: BLOOD SPECIMENOrdering Facility: [facility] Address: [address] [place] [address] Performed By: #### 5 7021-8 ####[facility] [place] LABCLIA [id number] [place] [address] [place] Neutrophils/100 WBC (Bld) 59.6 % Normal [facility] Comment on above: Order Comment: Speci men Type: BLOOD SPECIMENOrdering Facility: [facility] Address: [address] [place] [address] Performed By: #### 5 7021-8 ####[facility] [place] LABCLIA [id number] [place] [address] [place] Nucleated RBC (Bld) [#/Vol] Normal [facility] Comment on above: Order Comment: Speci men Type: BLOOD SPECIMENOrdering Facility: [facility] Address: [address] [place] [address] Performed By: #### 5 7021-8 ####[facility] [place] LABCLIA [id number] [facility] [place] [address] [place] Nucleated RBC/100 WBC (Bld) [Ratio] Normal [facility] Comment on above: Order Comment: Speci men Type: BLOOD SPECIMENOrdering Facility: [facility] Address: [address] [place] [address] Performed By: #### 5 7021-8 ####[facility] [place] LABCLIA [id number] [place] [address] [place] Platelet mean volume (Bld) [Entitic vol] 11.8 fL Normal 9.0-12.7 [facility] Comment on above: Order Comment: Speci men Type: BLOOD SPECIMENOrdering Facility: [facility] Address: [address] [place] [address] Performed By: #### 5 7021-8 ####[facility] [place] LABCLIA [id number] [place] [address] [facility] [place] Platelets (Bld) [#/Vol] 75 10*3/uL Low 150-400 [facility] Comment on above: Order Comment: Speci men Type: BLOOD SPECIMENOrdering Facility: [facility] Address: [address] [place] [address] Result Comment: No c lot detected. Performed By: #### 5 7021-8 ####[facility] LABCLIA [id number] [place], [place] [id number] [place] [address] [place] RBC (Bld) [#/Vol] 2.88 10*6/uL Low 4.20-6.00 [facility] Comment on above: Order Comment: Speci men Type: BLOOD SPECIMENOrdering Facility: [facility] Address: [address] [place] [address] Performed By: #### 5 7021-8 ####[facility] LABCLIA [id number] [address] OF [facility] WBC (Bld) [#/Vol] 8.34 10*3/uL Normal 3.70-11.00 [facility] Comment on above: Order Comment: Speci men Type: BLOOD SPECIMENOrdering Facility: [facility] Address: [address] [place] [address] Performed By: #### 5 7021-8 ####[facility] LABCLIA [id number] [place] [address] [facility] TYPE + SCREENon 07-09-2024 ABO B Normal [facility] Comment on above: Order Comment: Speci men Type: BLOOD SPECIMENOrdering Facility: [facility] Address: [address] [place] [address] Performed By: #### T SCR ####[facility] BLOOD BANKCLIA [id number] [address] OF [facility] Rh Nom (Bld) Positive Normal [facility] Comment on above: Order Comment: Speci men Type: BLOOD SPECIMENOrdering Facility: [facility] Address: [address] [place] [address] Performed By: #### T SCR ####[facility] BLOOD BANKCLIA [id number] [place] [address] [facility] TYPE AND SCREEN EXPIRATION 07/12/2024 23:59 Normal [facility] Comment on above: Order Comment: Speci men Type: BLOOD SPECIMENOrdering Facility: [facility] Address: [address] [place], [place] [id number] Performed By: #### T SCR ####[facility] BLOOD BANKCLIA [id number] [place] [address] [facility] CNCOon 07-07-2024 CNCO Letter Text Normal [facility] ED NOTEon 07-02-2024 ED NOTE HNO ID: [id number] Author: KEVIN JOYA RN Service: ? Author Type: Registered Nurse Type: ED Notes Filed: 07/02/2024 11:08 Note Text: Rectal exam per dr nieves with nurse present in room Normal [facility] ED NOTE HNO ID: [id number] Author: KEVIN JOYA RN Service: ? Author Type: Registered Nurse Type: ED Notes Filed: 07/02/2024 11:03 Note Text: Dr nieves at bedside for exam Normal [facility] ED NOTE HNO ID: [id number] Author: KEVIN JOYA RN Service: ? Author Type: Registered Nurse Type: ED Notes Filed: 07/02/2024 11:02 Note Text: Pt is currently taking percocet for a back injury. Pt is having problems with constipation, no bm for 2 days. Normal [facility] ED PROV NOTEon 07-02-2024 ED PROV NOTE Normal [facility] CBC W Auto Differential pane l (Bld)on 06-30-2024 Basophils (Bld) [#/Vol] NINF [facility] Basophils/100 WBC (Bld) 0.2 % [facility] Differential cell count method Nom (Bld) Auto [facility] Eosinophils (Bld) [#/Vol] NINF [facility] Eosinophils/100 WBC (Bld) 0 % [facility] Erythrocyte distribution width (RBC) [Ratio] 16.1 % High 11.5 - 15.0 % [facility] Hematocrit (Bld) [Volume fraction] 20 % Low 39.0 - 51.0 % [facility] Hemoglobin (Bld) [Mass/Vol] 7 g/dL Low 13.0 - 17.0 g/dL [facility] Immature granulocytes (Bld) [#/Vol] 0.06 10*3/uL [facility] Immature granulocytes/100 WBC (Bld) 0.9 % [facility] Interpretation and review of laboratory results Abnormal [facility] Lymphocytes (Bld) [#/Vol] 2 10*3/uL [facility] Lymphocytes/100 WBC (Bld) 30.3 % [facility] MCH (RBC) [Entitic mass] 28.3 pg 26.0 - 34.0 pg [facility] MCHC (RBC) [Mass/Vol] 35 g/dL 30.5 - 36.0 g/dL [facility] MCV (RBC) [Entitic vol] 81 fL 80.0 - 100.0 fL [facility] Monocytes (Bld) [#/Vol] 0.55 10*3/uL [facility] Monocytes/100 WBC (Bld) 8.3 % [facility] Neutrophils (Bld) [#/Vol] 3.99 10*3/uL [facility] Neutrophils/100 WBC (Bld) 60.3 % [facility] Nucleated RBC (Bld) [#/Vol] 0.07 10*3/uL High [facility] Nucleated RBC/100 WBC (Bld) [Ratio] 1.1 % /100 WBC [facility] Platelet mean volume (Bld) [Entitic vol] 12.2 fL 9.0 - 12.7 fL [facility] Platelets (Bld) [#/Vol] 67 10*3/uL Low [facility] Comment on above: No clot detected. RBC (Bld) [#/Vol] 2.47 10*6/uL Low 4.20 - 6.0 0 m/uL [facility] WBC (Bld) [#/Vol] 6.61 10*3/uL [facility] Basophils (Bld) [#/Vol] 10*3/uL Normal <0.11 [facility] Comment on above: Order Comment: Speci men Type: BLOOD SPECIMENOrdering Facility: [facility] Address: [address] [place] [address] Performed By: #### 5 7021-8 ####[facility]ORYCL[facility] [id number] [address] Basophils/100 WBC (Bld) 0.2 % Normal [facility] Comment on above: Order Comment: Speci men Type: BLOOD SPECIMENOrdering Facility: [facility] Address: [address] [place] [address] Performed By: #### 5 7021-8 ####[facility]ORATORYCLIA [id number] [address] Differential cell count method Nom (Bld) Auto Normal [facility] Comment on above: Order Comment: Speci men Type: BLOOD SPECIMENOrdering Facility: [facility] Address: [address] [place] [address] Performed By: #### 5 7021-8 ####[facility]ORATORYCLIA [id number] [address] [place] Eosinophils (Bld) [#/Vol] 10*3/uL Normal <0.46 [facility] Comment on above: Order Comment: Speci men Type: BLOOD SPECIMENOrdering Facility: [facility] Address: [address] [place] [address] Performed By: #### 5 7021-8 ####[facility]ORYCLIA [id number] [address] Eosinophils/100 WBC (Bld) 0.0 % Normal [facility] Comment on above: Order Comment: Speci men Type: BLOOD SPECIMENOrdering Facility: [facility] Address: [address] [place] [address] Performed By: #### 5 7021-8 ####[facility] LABORATORYCLIA [id number] [address] [place] Erythrocyte distribution width (RBC) [Ratio] 16.1 % High 11.5-15.0 [facility] Comment on above: Order Comment: Speci men Type: BLOOD SPECIMENOrdering Facility: [facility] Address: [address] [place] [address] Performed By: #### 5 7021-8 ####[facility] LABORATORYCLIA [id number] [address] [place] Hematocrit (Bld) [Volume fraction] 20.0 % Low 39.0-51.0 [facility] Comment on above: Order Comment: Speci men Type: BLOOD SPECIMENOrdering Facility: [facility] Address: [address] [place] [address] Performed By: #### 5 7021-8 ####[facility] LABORATORYCLIA [id number] [address] [place] Hemoglobin (Bld) [Mass/Vol] 7.0 g/dL Low 13.0-17.0 [facility] Comment on above: Order Comment: Speci men Type: BLOOD SPECIMENOrdering Facility: [facility] Address: [address] [place] [address] Performed By: #### 5 7021-8 ####[facility] LABORATORYCLIA [id number] [address] [place] Immature granulocytes (Bld) [#/Vol] 0.06 10*3/uL Normal <0.10 [facility] Comment on above: Order Comment: Speci men Type: BLOOD SPECIMENOrdering Facility: [facility] Address: [address] [place] [address] Performed By: #### 5 7021-8 ####[facility] LABORATORYCLIA [id number] [address] [place] Immature granulocytes/100 WBC (Bld) 0.9 % Normal [facility] Comment on above: Order Comment: Speci men Type: BLOOD SPECIMENOrdering Facility: [facility] Address: [address] [place] [address] Performed By: #### 5 7021-8 ####[facility] LABORATORYCLIA [id number] [place] [address] [place] Lymphocytes (Bld) [#/Vol] 2.00 10*3/uL Normal 1.00-4.00 [facility] Comment on above: Order Comment: Speci men Type: BLOOD SPECIMENOrdering Facility: [facility] Address: [address] [place] [address] Performed By: #### 5 7021-8 ####[facility] LABORATORYCLIA [id number] [address] Lymphocytes/100 WBC (Bld) 30.3 % Normal [facility] Comment on above: Order Comment: Speci men Type: BLOOD SPECIMENOrdering Facility: [facility] Address: [address] [place] [address] Performed By: #### 5 7021-8 ####[facility] LABORATORYCLIA [id number] [address] STATES [facility] MCH (RBC) [Entitic mass] 28.3 pg Normal 26.0-34.0 [facility] Comment on above: Order Comment: Speci men Type: BLOOD SPECIMENOrdering Facility: [facility] Address: [address] [place] [address] Performed By: #### 5 7021-8 ####[facility] LABORATORYCLIA [id number] [address] MCHC (RBC) [Mass/Vol] 35.0 g/dL Normal 30.5-36.0 [facility] Comment on above: Order Comment: Speci men Type: BLOOD SPECIMENOrdering Facility: [facility] Address: [address] [place] [address] Performed By: #### 5 7021-8 ####[facility] LABORATORYCLIA [id number] [address] MCV (RBC) [Entitic vol] 81.0 fL Normal 80.0-100.0 [facility] Comment on above: Order Comment: Speci men Type: BLOOD SPECIMENOrdering Facility: [facility] Address: [address] [place] [address] Performed By: #### 5 7021-8 ####[facility]ORATORYCLIA [id number] [place] [address] [place] Monocytes (Bld) [#/Vol] 0.55 10*3/uL Normal <0.87 [facility] Comment on above: Order Comment: Speci men Type: BLOOD SPECIMENOrdering Facility: [facility] Address: [address] [place] [address] Performed By: #### 5 7021-8 ####[facility] LABORATORYCLIA [id number] [place] [address] [place] Monocytes/100 WBC (Bld) 8.3 % Normal [facility] Comment on above: Order Comment: Speci men Type: BLOOD SPECIMENOrdering Facility: [facility] Address: [address] [place] [address] Performed By: #### 5 7021-8 ####[facility] LABORATORYCLIA [id number] [address] [place] Neutrophils (Bld) [#/Vol] 3.99 10*3/uL Normal 1.45-7.50 [facility] Comment on above: Order Comment: Speci men Type: BLOOD SPECIMENOrdering Facility: [facility] Address: [address] [place] [address] Performed By: #### 5 7021-8 ####[facility] LABORATORYCLIA [id number] [address] [place] Neutrophils/100 WBC (Bld) 60.3 % Normal [facility] Comment on above: Order Comment: Speci men Type: BLOOD SPECIMENOrdering Facility: [facility] Address: [address] [place] [address] Performed By: #### 5 7021-8 ####[facility] LABORATORYCLIA [id number] [place] [address] [place] Nucleated RBC (Bld) [#/Vol] 0.07 10*3/uL High <0.01 [facility] Comment on above: Order Comment: Speci men Type: BLOOD SPECIMENOrdering Facility: [facility] Address: [address] [place] [address] Performed By: #### 5 7021-8 ####[facility] LABORATORYCLIA [id number] [address] [place] Nucleated RBC/100 WBC (Bld) [Ratio] 1.1 /100 WBC Normal [facility] Comment on above: Order Comment: Speci men Type: BLOOD SPECIMENOrdering Facility: [facility] Address: [address] [place] [address] Performed By: #### 5 7021-8 ####[facility] LABORATORYCLIA [id number] [address] [place] Platelet mean volume (Bld) [Entitic vol] 12.2 fL Normal 9.0-12.7 [facility] Comment on above: Order Comment: Speci men Type: BLOOD SPECIMENOrdering Facility: [facility] Address: [address] [place] [address] Performed By: #### 5 7021-8 ####[facility] LABORATORYCLIA [id number] [address] STATES OF [facility] Platelets (Bld) [#/Vol] 67 10*3/uL Low 150-400 [facility] Comment on above: Order Comment: Speci men Type: BLOOD SPECIMENOrdering Facility: [facility] Address: [address] [place] [address] Result Comment: No c lot detected. Performed By: #### 5 7021-8 ####[facility] LABORATORYCLIA [id number] [address] OF [place] RBC (Bld) [#/Vol] 2.47 10*6/uL Low 4.20-6.00 [facility] Comment on above: Order Comment: Speci men Type: BLOOD SPECIMENOrdering Facility: [facility] Address: [address] [place] [address] Performed By: #### 5 7021-8 ####[facility] LABORATORYCLIA [id number] [address] [place] WBC (Bld) [#/Vol] 6.61 10*3/uL Normal 3.70-11.00 [facility] Comment on above: Order Comment: Speci men Type: BLOOD SPECIMENOrdering Facility: [facility] Address: [address] [place] [id number] Performed By: #### 5 7021-8 ####[facility] LABORATORYCLIA [id number] [place], [place] [address] [place] [address] STATES OF [facility] CNOVSPon 06-30-2024 CNOVSP Normal [facility] Comprehensive metabolic 2000 panelon 06-30-2024 Albumin [Mass/Vol] 3.8 g/dL Low 3.9 - 4.9 g/dL Cl [facility] ALP [Catalytic activity/Vol] 123 U/L High 38 - 113 U/L [facility] ALT With P-5'-P [Catalytic activity/Vol] 19 U/L 10 - 54 U/L [facility] Anion gap [Moles/Vol] 13 mmol/L 8 - 15 mmol/L [facility] AST With P-5'-P [Catalytic activity/Vol] 21 U/L 14 - 40 U/L [facility] Bilirubin [Mass/Vol] 0.2 mg/dL 0.2 - 1.3 mg/dL [facility] Calcium [Mass/Vol] 9.4 mg/dL 8.5 - 10. 2 mg/dL [facility] Chloride [Moles/Vol] 100 mmol/L 98 - 107 mmol/L [facility] CO2 [Moles/Vol] 22 mmol/L 22 - 30 mmol/L [facility] Creatinine [Mass/Vol] 0.84 mg/dL 0.73 - 1.22 mg/dL [facility] GFR/1.73 sq M.predicted among non-blacks MDRD (S/P/Bld) [Vol rate/Area] 88 mL/min/{1.73_m2} - PINF [facility] Comment on above: Estimated Glomerular Filtration Rate (eGFR) is calculated using the 202 CKD-EPI creatinine equation. This equation utilizes serum creatinine, sex, and age as parameters. The creatinine assay has traceable calibration to isotope dilution-mass spectrometry. Refer to KDIGO guidelines for clinical interpretation. In patients with unstable renal function, e.g. those with acute kidney injury, the eGFR may not accurately reflect actual GFR. Glucose [Mass/Vol] 197 mg/dL High 74 - 99 mg/dL [facility] Comment on above: The [place] Diabete s Association (ADA) provides guidance for [...] Standards of Medical Care in Diabetes 2016, [place] Diabetes Association. Diabetes Care. 2016.39(Suppl 1). Interpretation and review of laboratory results Abnormal [facility] Potassium [Moles/Vol] 4 mmol/L 3.7 - 5.1 mmol/L [facility] Protein [Mass/Vol] 7.2 g/dL 6.3 - 8.0 g/dL [facility] Sodium [Moles/Vol] 135 mmol/L Low 136 - 144 mmol/L [facility] Urea nitrogen [Mass/Vol] 21 mg/dL 9 - 24 mg/dL [facility] Albumin [Mass/Vol] 3.8 g/dL Low 3.9-4.9 [facility] Comment on above: Order Comment: Speci men Type: BLOOD SPECIMENOrdering Facility: [facility] Address: [address] [place] [address] Performed By: #### 2 4323-8 ####[facility] LABORATORYCLIA [id number] [address] [place] ALP [Catalytic activity/Vol] 123 U/L High 38-113 [facility] Comment on above: Order Comment: Speci men Type: BLOOD SPECIMENOrdering Facility: [facility] Address: [address] [place] [address] Performed By: #### 2 4323-8 ####[facility] LABORATORYCLIA [id number] [place] [address] [place] ALT With P-5'-P [Catalytic activity/Vol] 19 U/L Normal 10-54 [facility] Comment on above: Order Comment: Speci men Type: BLOOD SPECIMENOrdering Facility: [facility] Address: [address] [place] [address] Performed By: #### 2 4323-8 ####[facility] GENER[facility] LABORATORYCLIA [id number] [address] [place] Anion gap [Moles/Vol] 13 mmol/L Normal 8-15 [facility] Comment on above: Order Comment: Speci men Type: BLOOD SPECIMENOrdering Facility: [facility] Address: [address] [place] [address] Performed By: #### 2 4323-8 ####[facility] LABORATORYCLIA [id number] [place] [address] [place] AST With P-5'-P [Catalytic activity/Vol] 21 U/L Normal 14-40 [facility] Comment on above: Order Comment: Speci men Type: BLOOD SPECIMENOrdering Facility: [facility] Address: [address] [place] [address] Performed By: #### 2 4323-8 ####[facility] LABORATORYCLIA [id number] [place] [address] [place] Bilirubin [Mass/Vol] 0.2 mg/dL Normal 0.2-1.3 [facility] Comment on above: Order Comment: Speci men Type: BLOOD SPECIMENOrdering Facility: [facility] Address: [address] [place] [address] Performed By: #### 2 4323-8 ####[facility] LABORATORYCLIA [id number] [address] [place] Calcium [Mass/Vol] 9.4 mg/dL Normal 8.5-10.2 [facility] Comment on above: Order Comment: Speci men Type: BLOOD SPECIMENOrdering Facility: [facility] Address: [address] [place] [address] Performed By: #### 2 4323-8 ####[facility] LABORATORYCLIA [id number] [address] Chloride [Moles/Vol] 100 mmol/L Normal 98-107 [facility] Comment on above: Order Comment: Speci men Type: BLOOD SPECIMENOrdering Facility: [facility] Address: [address] [place] [address] Performed By: #### 2 4323-8 ####[facility] LABORATORYCLIA [id number] [address] [place] CO2 [Moles/Vol] 22 mmol/L Normal 22-30 [facility] Comment on above: Order Comment: Speci men Type: BLOOD SPECIMENOrdering Facility: [facility] Address: [address] [place] [address] Performed By: #### 2 4323-8 ####[facility] CITYCLIA [id number] [address] Creatinine [Mass/Vol] 0.84 mg/dL Normal 0.73-1.22 [facility] Comment on above: Order Comment: Speci men Type: BLOOD SPECIMENOrdering Facility: [facility] Address: [address] [place] [address] Performed By: #### 2 4323-8 ####[facility] LABORATORYCLIA [id number] [address] Creatinine and Glomerular filtration rate.predicted panel (S/P/Bld) 88 mL/min/1.73m??? Normal >=60 [facility] Comment on above: Order Comment: Speci men Type: BLOOD SPECIMENOrdering Facility: [facility] Address: [address] [place] [address] Result Comment: Sharon mated Glomerular Filtration Rate [...] actual GFR. Performed By: #### 2 4323-8 ####[facility] LABORATORYCLIA [id number] [place] [address] [place] Glucose [Mass/Vol] 197 mg/dL High 74-99 [facility] Comment on above: Order Comment: Mathew portillo Type: BLOOD SPECIMENOrdering Facility: [facility] Address: [address] [place] [address] Result Comment: The [place] Diabetes Association (ADA) provides guidance for cutoff [...] Standards of Medical Care in Diabetes 2016, [place] Diabetes Association. Diabetes Care. 2016.39(Suppl 1). Performed By: #### 2 4323-8 ####[facility] LABORATORYCLIA [id number] [place] [address] [place] Potassium [Moles/Vol] 4.0 mmol/L Normal 3.7-5.1 [facility] Comment on above: Order Comment: Mathew portillo Type: BLOOD SPECIMENOrdering Facility: [facility] Address: [address] [place] [address] Performed By: #### 2 4323-8 ####[facility] LABORATORYCLIA [id number] [place] [address] [place] Protein [Mass/Vol] 7.2 g/dL Normal 6.3-8.0 [facility] Comment on above: Order Comment: Mathew portillo Type: BLOOD SPECIMENOrdering Facility: [facility] Address: [address] [place] [address] Performed By: #### 2 4323-8 ####[facility] LABORATORYCLIA [id number] [place] [address] [place] Sodium [Moles/Vol] 135 mmol/L Low 136-144 [facility] Comment on above: Order Comment: Speci men Type: BLOOD SPECIMENOrdering Facility: [facility] Address: [address] [place] [address] Performed By: #### 2 4323-8 ####[facility] LABORATORYCLIA [id number] [address] [place] Urea nitrogen [Mass/Vol] 21 mg/dL Normal 9-24 [facility] Comment on above: Order Comment: Speci men Type: BLOOD SPECIMENOrdering Facility: [facility] Address: [address] [place] [address] Performed By: #### 2 4323-8 ####[facility] LABORATORYCLIA [id number] [address] STATES OF [facility] TYPE + SCREENon 06-30-2024 ABO group Nom (Bld) B [facility] Blood group antibody screen Ql Negative [facility] Rh Nom (Bld) Positive [facility] Type and Screen Expiration 07/03/2024 23:59 [facility] ABO B Normal [facility] Comment on above: Order Comment: Speci men Type: BLOOD SPECIMENOrdering Facility: [facility] Address: [address] [place] [address] Performed By: #### T SCR ####[facility] BLOOD BANKCLIA [id number] [address] STATES [facility] Rh Nom (Bld) Positive Normal [facility] Comment on above: Order Comment: Speci men Type: BLOOD SPECIMENOrdering Facility: [facility] Address: [address] [place] [address] Performed By: #### T SCR ####[facility] BLOOD BANKCLIA [id number] [address] TYPE AND SCREEN EXPIRATION 07/03/2024 23:59 Normal [facility] Comment on above: Order Comment: Speci men Type: BLOOD SPECIMENOrdering Facility: [facility] Address: [address] [place] [address] Performed By: #### T SCR ####[facility] BLOOD BANKCLIA [id number] [place] [address] [facility] 3606-20-2024 36 S: Patient called [facility] with complaints of a missing antihypertensive. B: Asymptomatic. Patient was in [facility], and was released last night. Allergies and pharmacy, [facility] in [place], verified. A: Patient reports that while in [...] >= 100 Protocols used: Blood Pressure - Qdum-[id number]-DL Normal [facility] SHS CNDSon 06-19-2024 CNDS Normal [facility] NURSING PROGon 06-19-2024 NURSING PROG Normal [facility] THERAPY NTon 06-19-2024 THERAPY NT Normal [facility] THERAPY NT Normal [facility] THERAPY NT Normal [facility] THERAPY NT Normal [facility] CASE MANAGEMon 06-18-2024 CASE MANAGEM Normal [facility] THERAPY NTon 06-18-2024 THERAPY NT Normal [facility] THERAPY NT Normal [facility] THERAPY NT Normal [facility] CASE MANAGEMon 06-17-2024 CASE MANAGEM Normal [facility] CASE MANAGEM Normal [facility] CASE MANAGEM Normal [facility] CBC panel Auto (Bld)on 06-17 Erythrocyte distribution width (RBC) [Ratio] 15.8 % High 11.5-15.0 [facility] Comment on above: Order Comment: Speci men Type: BLOOD SPECIMENOrdering Facility: [facility] Address: [address] [place] [address] Performed By: #### 5 8410-2 ####[facility] LABCLIA [id number] [place] [address] [facility] Hematocrit (Bld) [Volume fraction] 21.0 % Low 39.0-51.0 [facility] Comment on above: Order Comment: Speci men Type: BLOOD SPECIMENOrdering Facility: [facility] Address: [address] [place] [address] Performed By: #### 5 8410-2 ####[facility] LABCLIA [id number] [place] [address] [place] Hemoglobin (Bld) [Mass/Vol] 7.1 g/dL Low 13.0-17.0 [facility] Comment on above: Order Comment: Speci men Type: BLOOD SPECIMENOrdering Facility: [facility] Address: [address] [place] [address] Performed By: #### 5 8410-2 ####[facility] LABCLIA [id number] [place], [place] [id number] [place] [address] [place] MCH (RBC) [Entitic mass] 27.8 pg Normal 26.0-34.0 [facility] Comment on above: Order Comment: Speci men Type: BLOOD SPECIMENOrdering Facility: [facility] Address: [address] [place] [address] Performed By: #### 5 8410-2 ####[facility] LABCLIA [id number] [place] [address] [place] MCHC (RBC) [Mass/Vol] 33.8 g/dL Normal 30.5-36.0 [facility] Comment on above: Order Comment: Speci men Type: BLOOD SPECIMENOrdering Facility: [facility] Address: [address] [place] [address] Performed By: #### 5 8410-2 ####[facility] LABCLIA [id number] [place] [address] [facility] [place] MCV (RBC) [Entitic vol] 82.4 fL Normal 80.0-100.0 [facility] Comment on above: Order Comment: Speci men Type: BLOOD SPECIMENOrdering Facility: [facility] Address: [address] [place] [address] Performed By: #### 5 8410-2 ####[facility] LABCLIA [id number] [place] [address] [place] Platelet mean volume (Bld) [Entitic vol] 11.2 fL Normal 9.0-12.7 [facility] Comment on above: Order Comment: Speci men Type: BLOOD SPECIMENOrdering Facility: [facility] Address: [address] [place] [address] Performed By: #### 5 8410-2 ####[facility] LABCLIA [id number] [place] [address] [place] Platelets (Bld) [#/Vol] 81 10*3/uL Low 150-400 [facility] Comment on above: Order Comment: Speci men Type: BLOOD SPECIMENOrdering Facility: [facility] Address: [address] [place] [address] Result Comment: No c lot detected. Performed By: #### 5 8410-2 ####[facility] LABCLIA [id number] [place] [address] [place] RBC (Bld) [#/Vol] 2.55 10*6/uL Low 4.20-6.00 [facility] Comment on above: Order Comment: Speci men Type: BLOOD SPECIMENOrdering Facility: [facility] Address: [address] [place] [address] Performed By: #### 5 8410-2 ####[facility] LABCLIA [id number] [place] [address] [place] WBC (Bld) [#/Vol] 6.54 10*3/uL Normal 3.70-11.00 [facility] Comment on above: Order Comment: Speci men Type: BLOOD SPECIMENOrdering Facility: [facility] Address: [address] [place] [address] Performed By: #### 5 8410-2 ####[facility] LABCLIA [id number] [address] [place] NURSING PROGon 06-17-2024 NURSING PROG Normal [facility] NUTRITIONon 06-17-2024 NUTRITION Normal [facility] THERAPY NTon 06-17-2024 THERAPY NT Normal [facility] THERAPY NT Normal [facility] THERAPY NT Normal [facility] THERAPY NT Normal [facility] TYPE + SCREENon 06-17-2024 ABO B Normal [facility] Comment on above: Order Comment: Speci men Type: BLOOD SPECIMENOrdering Facility: [facility] Address: [address] [place] [address] Performed By: #### T SCR ####[facility] BLOOD BANKCLIA [id number] [address] [place] Rh Nom (Bld) Positive Normal [facility] Comment on above: Order Comment: Speci men Type: BLOOD SPECIMENOrdering Facility: [facility] Address: [address] [place] [address] Performed By: #### T SCR ####[facility] BLOOD BANKCLIA [id number] [address] [place] TYPE AND SCREEN EXPIRATION 06/20/2024 23:59 Normal [facility] Comment on above: Order Comment: Speci men Type: BLOOD SPECIMENOrdering Facility: [facility] Address: [address] [place] [address] Performed By: #### T SCR ####[facility] BLOOD BANKCLIA [id number] [place] [address] [place] CASE MANAGEMon 06-16-2024 CASE MANAGEM Normal [facility] THERAPY NTon 06-16-2024 THERAPY NT Normal [facility] THERAPY NT Normal [facility] CASE MANAGEMon 06-15-2024 CASE MANAGEM Normal [facility] THERAPY NTon 06-15-2024 THERAPY NT Normal [facility] THERAPY NT Normal [facility] CBC panel Auto (Bld)on 06-14 Erythrocyte distribution width (RBC) [Ratio] 15.7 % High 11.5-15.0 [facility] Comment on above: Order Comment: Speci men Type: BLOOD SPECIMENOrdering Facility: [facility] Address: [address] [place] [address] Performed By: #### 5 8410-2 ####[facility] LABCLIA [id number] [place] [address] [facility] Hematocrit (Bld) [Volume fraction] 21.5 % Low 39.0-51.0 [facility] Comment on above: Order Comment: Speci men Type: BLOOD SPECIMENOrdering Facility: [facility] Address: [address] [place] [address] Performed By: #### 5 8410-2 ####[facility] LABCLIA [id number] [place] [address] [facility] Hemoglobin (Bld) [Mass/Vol] 7.3 g/dL Low 13.0-17.0 [facility] Comment on above: Order Comment: Speci men Type: BLOOD SPECIMENOrdering Facility: [facility] Address: [address] [place] [address] Performed By: #### 5 8410-2 ####[facility] LABCLIA [id number] [place] [address] [place] MCH (RBC) [Entitic mass] 27.8 pg Normal 26.0-34.0 [facility] Comment on above: Order Comment: Speci men Type: BLOOD SPECIMENOrdering Facility: [facility] Address: [address] [place] [address] Performed By: #### 5 8410-2 ####[facility] LABCLIA [id number] [place] [address] [place] MCHC (RBC) [Mass/Vol] 34.0 g/dL Normal 30.5-36.0 [facility] Comment on above: Order Comment: Speci men Type: BLOOD SPECIMENOrdering Facility: [facility] Address: [address] [place] [address] Performed By: #### 5 8410-2 ####[facility] LABCLIA [id number] [place] [address] [facility] MCV (RBC) [Entitic vol] 81.7 fL Normal 80.0-100.0 [facility] Comment on above: Order Comment: Speci men Type: BLOOD SPECIMENOrdering Facility: [facility] Address: [address] [place] [address] Performed By: #### 5 8410-2 ####[facility] LABCLIA [id number] [place] [address] [place] [facility] Platelet mean volume (Bld) [Entitic vol] 11.6 fL Normal 9.0-12.7 [facility] Comment on above: Order Comment: Speci men Type: BLOOD SPECIMENOrdering Facility: [facility] Address: [address] [place] [address] Performed By: #### 5 8410-2 ####[facility] LABCLIA [id number] [place] [address] [facility] Platelets (Bld) [#/Vol] 75 10*3/uL Low 150-400 [facility] Comment on above: Order Comment: Speci men Type: BLOOD SPECIMENOrdering Facility: [facility] Address: [address] [place] [address] Result Comment: No c lot detected. Performed By: #### 5 8410-2 ####[facility] LABCLIA [id number] [place] [address] [facility] [place] RBC (Bld) [#/Vol] 2.63 10*6/uL Low 4.20-6.00 [facility] Comment on above: Order Comment: Speci men Type: BLOOD SPECIMENOrdering Facility: [facility] Address: [address] [place] [address] Performed By: #### 5 8410-2 ####[facility] LABCLIA [id number] [place] [address] [place] WBC (Bld) [#/Vol] 5.52 10*3/uL Normal 3.70-11.00 [facility] Comment on above: Order Comment: Speci men Type: BLOOD SPECIMENOrdering Facility: [facility] Address: [address] [place] [address] Performed By: #### 5 8410-2 ####[facility] LABCLIA [id number] [place] [address] [facility] THERAPY NTon 06-13-2024 THERAPY NT Normal [facility] THERAPY NT Normal [facility] CASE MANAGEMon 06-12-2024 CASE MANAGEM Normal [facility] THERAPY NTon 06-12-2024 THERAPY NT Normal [facility] THERAPY NT Normal [facility] THERAPY NTon 06-11-2024 THERAPY NT Normal [facility] THERAPY NT Normal [facility] THERAPY NT Normal [facility] CASE MANAGEMon 06-10-2024 CASE MANAGEM Normal [facility] CASE MGT INIT ASSESon 2024 CASE MGT INIT ASSES Normal [facility] HISTORY PHYSICALon HISTORY PHYSICAL Normal [facility] NUTRITIONon 06-10-2024 NUTRITION Normal [facility] THERAPY NTon 06-10-2024 THERAPY NT Normal [facility] THERAPY NT Normal [facility] CASE MANAGEMon 06-09-2024 CASE MANAGEM Normal [facility] CNDSon 06-09-2024 CNDS Normal [facility] ALLIED HEALTHon 06-08-2024 ALLIED HEALTH Normal [facility] CASE MANAGEMon 06-08-2024 CASE MANAGEM Normal [facility] MRI LUMBAR SPINE WO IVCONon 06-08-2024 MRI LUMBAR SPINE WO IVCON Normal [facility] THERAPY NTon 06-08-2024 THERAPY NT Normal [facility] Basic metabolic 2000 panelon 06-07-2024 Anion gap [Moles/Vol] 12 mmol/L Normal 8-15 [facility] Comment on above: Order Comment: Speci men Type: BLOOD SPECIMENOrdering Facility: [facility] Address: [address] [place] [address] Performed By: #### 1 91239, 40226-1 ####[facility] LABORATORYCLIA [id number] [place] [address] [place] Calcium [Mass/Vol] 9.1 mg/dL Normal 8.5-10.2 [facility] Comment on above: Order Comment: Speci men Type: BLOOD SPECIMENOrdering Facility: [facility] Address: [address] [place] [address] Performed By: #### 1 9122-10, 86839-9 ####[facility] LABORATORYCLIA [id number] [place] [address] [place] Chloride [Moles/Vol] 103 mmol/L Normal 98-107 [facility] Comment on above: Order Comment: Speci men Type: BLOOD SPECIMENOrdering Facility: [facility] Address: [address] [place] [address] Performed By: #### 1 9122-10, 54178-8 ####[facility] LABORATORYCLIA [id number] [place] [address] [place] CO2 [Moles/Vol] 21 mmol/L Low 22-30 [facility] Comment on above: Order Comment: Speci men Type: BLOOD SPECIMENOrdering Facility: [facility] Address: [address] [place] [address] Performed By: #### 1 9122-10, ####[facility] LABORATORYCLIA [id number] [place] [address] [place] Creatinine [Mass/Vol] 0.85 mg/dL Normal 0.73-1.22 [facility] Comment on above: Order Comment: Speci men Type: BLOOD SPECIMENOrdering Facility: [facility] Address: [address] [place] [address] Performed By: #### 1 91239, 16799-8 ####[facility] LABORATORYCLIA [id number] [place] [address] [place] Creatinine and Glomerular filtration rate.predicted panel (S/P/Bld) 87 mL/min/1.73m??? Normal >=60 [facility] Comment on above: Order Comment: Mathew portillo Type: BLOOD SPECIMENOrdering Facility: [facility] Address: [address] [place] [address] Result Comment: Sharon mated Glomerular Filtration Rate [...] actual GFR. Performed By: #### 1 9123-9, 35568-8 ####[facility] LABORATORYCLIA [id number] [place] [address] [place] Glucose [Mass/Vol] 176 mg/dL High 74-99 [facility] Comment on above: Order Comment: Mathew portillo Type: BLOOD SPECIMENOrdering Facility: [facility] Address: [address] [place] [address] Result Comment: The [place] [employer] (ADA) provides guidance for cutoff [...] Standards of Medical Care in Diabetes 2016, [place] [employer]. Diabetes Care. 2016.39(Suppl 1). Performed By: #### 1 9123-9, 89062-4 ####[facility] LABORATORYCLIA [id number] [place] [address] [place] Potassium [Moles/Vol] 4.3 mmol/L Normal 3.7-5.1 [facility] Comment on above: Order Comment: Speci men Type: BLOOD SPECIMENOrdering Facility: [facility] Address: [address] [place] [address] Performed By: #### 1 9123-9, 42990-6 ####[facility] LABORATORYCLIA [id number] [place] [address] [place] Sodium [Moles/Vol] 136 mmol/L Normal 136-144 [facility] Comment on above: Order Comment: Speci men Type: BLOOD SPECIMENOrdering Facility: [facility] Address: [address] [place] [address] Performed By: #### 1 9123-9, 70057-0 ####[facility] LABORATORYCLIA [id number] [address] [place] Urea nitrogen [Mass/Vol] 16 mg/dL Normal 9-24 [facility] Comment on above: Order Comment: Speci men Type: BLOOD SPECIMENOrdering Facility: [facility] Address: [address] [place] [address] Performed By: #### 1 9123-9, 02456-3 ####[facility] LABORATORYCLIA [id number] [address] [place] CASE MGT INIT ASSESon 2024 CASE MGT INIT ASSES Normal [facility] CBC W Auto Differential pane l (Bld)on 06-07-2024 Basophils (Bld) [#/Vol] 0.03 10*3/uL Normal <0.11 [facility] Comment on above: Order Comment: Speci men Type: BLOOD SPECIMENOrdering Facility: [facility] Address: [address] [place] [address] Performed By: #### 5 7021-8 ####[facility] LABORATORYCLIA [id number] [address] [place] Basophils/100 WBC (Bld) 0.5 % Normal [facility] Comment on above: Order Comment: Speci men Type: BLOOD SPECIMENOrdering Facility: [facility] Address: [address] [place] [address] Performed By: #### 5 7021-8 ####[facility] LABORATORYCLIA [id number] [address] Differential cell count method Nom (Bld) Auto Normal [facility] Comment on above: Order Comment: Speci men Type: BLOOD SPECIMENOrdering Facility: [facility] Address: [address] [place] [address] Performed By: #### 5 7021-8 ####[facility] LABORATORYCLIA [id number] [address] Eosinophils (Bld) [#/Vol] 10*3/uL Normal <0.46 [facility] Comment on above: Order Comment: Speci men Type: BLOOD SPECIMENOrdering Facility: [facility] Address: [address] [place] [address] Performed By: #### 5 7021-8 ####[facility] LABORATORYCLIA [id number] [address] Eosinophils/100 WBC (Bld) 0.2 % Normal [facility] Comment on above: Order Comment: Speci men Type: BLOOD SPECIMENOrdering Facility: [facility] Address: [address] [place] [address] Performed By: #### 5 7021-8 ####[facility] LABORATORYCLIA [id number] [address] [place] Erythrocyte distribution width (RBC) [Ratio] 16.9 % High 11.5-15.0 [facility] Comment on above: Order Comment: Speci men Type: BLOOD SPECIMENOrdering Facility: [facility] Address: [address] [place] [address] Performed By: #### 5 7021-8 ####[facility] LABORATORYCLIA [id number] [address] Hematocrit (Bld) [Volume fraction] 25.9 % Low 39.0-51.0 [facility] Comment on above: Order Comment: Speci men Type: BLOOD SPECIMENOrdering Facility: [facility] Address: [address] [place] [address] Performed By: #### 5 7021-8 ####[facility]ORATORYCLIA [id number] [place] [address] [place] Hemoglobin (Bld) [Mass/Vol] 9.0 g/dL Low 13.0-17.0 [facility] Comment on above: Order Comment: Speci men Type: BLOOD SPECIMENOrdering Facility: [facility] Address: [address] [place] [address] Performed By: #### 5 7021-8 ####[facility]ORATORYCLIA [id number] [place] [address] [place] Immature granulocytes (Bld) [#/Vol] 0.08 10*3/uL Normal <0.10 [facility] Comment on above: Order Comment: Speci men Type: BLOOD SPECIMENOrdering Facility: [facility] Address: [address] [place] [address] Performed By: #### 5 7021-8 ####[facility] LABORATORYCLIA [id number] [address] [place] Immature granulocytes/100 WBC (Bld) 1.2 % Normal [facility] Comment on above: Order Comment: Speci men Type: BLOOD SPECIMENOrdering Facility: [facility] Address: [address] [place] [address] Performed By: #### 5 7021-8 ####[facility]ORATORYCLIA [id number] [place] [address] [place] Lymphocytes (Bld) [#/Vol] 2.19 10*3/uL Normal 1.00-4.00 [facility] Comment on above: Order Comment: Speci men Type: BLOOD SPECIMENOrdering Facility: [facility] Address: [address] [place] [address] Performed By: #### 5 7021-8 ####[facility]ORATORYCLIA [id number] [address] [place] Lymphocytes/100 WBC (Bld) 33.8 % Normal [facility] Comment on above: Order Comment: Speci men Type: BLOOD SPECIMENOrdering Facility: [facility] Address: [address] [place] [address] Performed By: #### 5 7021-8 ####[facility] LABORATORYCLIA [id number] [address] MCH (RBC) [Entitic mass] 28.4 pg Normal 26.0-34.0 [facility] Comment on above: Order Comment: Speci men Type: BLOOD SPECIMENOrdering Facility: [facility] Address: [address] [place] [address] Performed By: #### 5 7021-8 ####[facility] LABORATORYCLIA [id number] [address] MCHC (RBC) [Mass/Vol] 34.7 g/dL Normal 30.5-36.0 [facility] Comment on above: Order Comment: Speci men Type: BLOOD SPECIMENOrdering Facility: [facility] Address: [address] [place] [address] Performed By: #### 5 7021-8 ####[facility] LABORATORYCLIA [id number] [address] MCV (RBC) [Entitic vol] 81.7 fL Normal 80.0-100.0 [facility] Comment on above: Order Comment: Speci men Type: BLOOD SPECIMENOrdering Facility: [facility] Address: [address] [place] [address] Performed By: #### 5 7021-8 ####[facility] LABORATORYCLIA [id number] [address] Monocytes (Bld) [#/Vol] 0.63 10*3/uL Normal <0.87 [facility] Comment on above: Order Comment: Speci men Type: BLOOD SPECIMENOrdering Facility: [facility] Address: [address] [place] [address] Performed By: #### 5 7021-8 ####[facility] LABORATORYCLIA [id number] [place] [address] [place] Monocytes/100 WBC (Bld) 9.7 % Normal [facility] Comment on above: Order Comment: Speci men Type: BLOOD SPECIMENOrdering Facility: [facility] Address: [address] [place] [address] Performed By: #### 5 7021-8 ####[facility]ORATORYCLIA [id number] [place] [address] [place] Neutrophils (Bld) [#/Vol] 3.54 10*3/uL Normal 1.45-7.50 [facility] Comment on above: Order Comment: Speci men Type: BLOOD SPECIMENOrdering Facility: [facility] Address: [address] [place] [address] Performed By: #### 5 7021-8 ####[facility]ORATORYCLIA [id number] [address] [place] Neutrophils/100 WBC (Bld) 54.6 % Normal [facility] Comment on above: Order Comment: Speci men Type: BLOOD SPECIMENOrdering Facility: [facility] Address: [address] [place] [address] Performed By: #### 5 7021-8 ####[facility]ORATORYCLIA [id number] [place] [address] [place] Nucleated RBC (Bld) [#/Vol] 10*3/uL Normal <0.01 [facility] Comment on above: Order Comment: Speci men Type: BLOOD SPECIMENOrdering Facility: [facility] Address: [address] [place] [address] Performed By: #### 5 7021-8 ####[facility]ORATORYCLIA [id number] [place] [address] [place] Nucleated RBC/100 WBC (Bld) [Ratio] 0.0 /100 WBC Normal [facility] Comment on above: Order Comment: Speci men Type: BLOOD SPECIMENOrdering Facility: [facility] Address: [address] [place] [address] Performed By: #### 5 7021-8 ####[facility]ORATORYCLIA [id number] [address] [place] Platelet mean volume (Bld) [Entitic vol] 11.9 fL Normal 9.0-12.7 [facility] Comment on above: Order Comment: Speci men Type: BLOOD SPECIMENOrdering Facility: [facility] Address: [address] [place] [address] Performed By: #### 5 7021-8 ####[facility] LABORATORYCLIA [id number] [place] [address] [place] Platelets (Bld) [#/Vol] 54 10*3/uL Low 150-400 [facility] Comment on above: Order Comment: Speci men Type: BLOOD SPECIMENOrdering Facility: [facility] Address: [address] [place] [address] Performed By: #### 5 7021-8 ####[facility] LABORATORYCLIA [id number] [place] [address] [place] RBC (Bld) [#/Vol] 3.17 10*6/uL Low 4.20-6.00 [facility] Comment on above: Order Comment: Speci men Type: BLOOD SPECIMENOrdering Facility: [facility] Address: [address] [place] [address] Performed By: #### 5 7021-8 ####[facility] LABORATORYCLIA [id number] [place] [address] [place] WBC (Bld) [#/Vol] 6.48 10*3/uL Normal 3.70-11.00 [facility] Comment on above: Order Comment: Speci men Type: BLOOD SPECIMENOrdering Facility: [facility] Address: [address] [place] [address] Performed By: #### 5 7021-8 ####[facility] LABORATORYCLIA [id number] [address] [place] Magnesium SerPl-mCncon 06-07 Magnesium [Mass/Vol] 1.9 mg/dL Normal 1.7-2.3 [facility] Comment on above: Order Comment: Speci men Type: BLOOD SPECIMENOrdering Facility: [facility] Address: [address] [place] [address] Performed By: #### 1 9123-9, 77597-0 ####[facility] LABORATORYCLIA [id number] [place] [address] [place] CBC W Auto Differential pane l (Bld)on 06-06-2024 Basophils (Bld) [#/Vol] 10*3/uL Normal <0.11 [facility] Comment on above: Order Comment: Speci men Type: BLOOD SPECIMENOrdering Facility: [facility] Address: [address] [place] [address] Performed By: #### 5 7021-8 ####[facility] LABORATORYCLIA [id number] [address] [place] Basophils/100 WBC (Bld) 0.1 % Normal [facility] Comment on above: Order Comment: Speci men Type: BLOOD SPECIMENOrdering Facility: [facility] Address: [address] [place] [address] Performed By: #### 5 7021-8 ####[facility] LABORATORYCLIA [id number] [address] Differential cell count method Nom (Bld) Auto Normal [facility] Comment on above: Order Comment: Speci men Type: BLOOD SPECIMENOrdering Facility: [facility] Address: [address] [place] [address] Performed By: #### 5 7021-8 ####[facility]ORATORYCLIA [id number] [place] [address] [place] Eosinophils (Bld) [#/Vol] 10*3/uL Normal <0.46 [facility] Comment on above: Order Comment: Speci men Type: BLOOD SPECIMENOrdering Facility: [facility] Address: [facility] [place] [address] Performed By: #### 5 7021-8 ####[facility]ORATORYCLIA [id number] [place] [address] [place] Eosinophils/100 WBC (Bld) 0.0 % Normal [facility] Comment on above: Order Comment: Speci men Type: BLOOD SPECIMENOrdering Facility: [facility] Address: [facility] [place] [address] Performed By: #### 5 7021-8 ####[facility] LABORATORYCLIA [id number] [address] [place] Erythrocyte distribution width (RBC) [Ratio] 16.8 % High 11.5-15.0 [facility] Comment on above: Order Comment: Speci men Type: BLOOD SPECIMENOrdering Facility: [facility] Address: [address] [place] [address] Performed By: #### 5 7021-8 ####[facility] LABORATORYCLIA [id number] [address] [place] Hematocrit (Bld) [Volume fraction] 25.1 % Low 39.0-51.0 [facility] Comment on above: Order Comment: Speci men Type: BLOOD SPECIMENOrdering Facility: [facility] Address: [address] [place] [address] Performed By: #### 5 7021-8 ####[facility] LABORATORYCLIA [id number] [address] [place] Hemoglobin (Bld) [Mass/Vol] 8.8 g/dL Low 13.0-17.0 [facility] Comment on above: Order Comment: Speci men Type: BLOOD SPECIMENOrdering Facility: [facility] Address: [address] [place] [address] Performed By: #### 5 7021-8 ####[facility] LABORATORYCLIA [id number] [address] [place] Immature granulocytes (Bld) [#/Vol] 0.07 10*3/uL Normal <0.10 [facility] Comment on above: Order Comment: Speci men Type: BLOOD SPECIMENOrdering Facility: [facility] Address: [address] [place] [address] Performed By: #### 5 7021-8 ####[facility] LABORATORYCLIA [id number] [address] OF [facility] Immature granulocytes/100 WBC (Bld) 1.0 % Normal [facility] Comment on above: Order Comment: Speci men Type: BLOOD SPECIMENOrdering Facility: [facility] Address: [address] [place] [address] Performed By: #### 5 7021-8 ####[facility] LABORATORYCLIA [id number] [place] [address] [place] Lymphocytes (Bld) [#/Vol] 1.16 10*3/uL Normal 1.00-4.00 [facility] Comment on above: Order Comment: Speci men Type: BLOOD SPECIMENOrdering Facility: [facility] Address: [address] [place] [address] Performed By: #### 5 7021-8 ####[facility] LABORATORYCLIA [id number] [address] Lymphocytes/100 WBC (Bld) 16.9 % Normal [facility] Comment on above: Order Comment: Speci men Type: BLOOD SPECIMENOrdering Facility: [facility] Address: [address] [place] [address] Performed By: #### 5 7021-8 ####[facility] LABORATORYCLIA [id number] [address] [place] MCH (RBC) [Entitic mass] 27.8 pg Normal 26.0-34.0 [facility] Comment on above: Order Comment: Speci men Type: BLOOD SPECIMENOrdering Facility: [facility] Address: [address] [place] [address] Performed By: #### 5 7021-8 ####[facility]ORATORYCLIA [id number] [address] STATES [facility] MCHC (RBC) [Mass/Vol] 35.1 g/dL Normal 30.5-36.0 [facility] Comment on above: Order Comment: Speci men Type: BLOOD SPECIMENOrdering Facility: [facility] Address: [address] [place] [address] Performed By: #### 5 7021-8 ####[facility]ORATORYCLIA [id number] [place] [address] [place] MCV (RBC) [Entitic vol] 79.4 fL Low 80.0-100.0 [facility] Comment on above: Order Comment: Speci men Type: BLOOD SPECIMENOrdering Facility: [facility] Address: [address] [place] [address] Performed By: #### 5 7021-8 ####[facility]ORATORYCLIA [id number] [place] [address] [place] Monocytes (Bld) [#/Vol] 0.49 10*3/uL Normal <0.87 [facility] Comment on above: Order Comment: Speci men Type: BLOOD SPECIMENOrdering Facility: [facility] Address: [address] [place] [address] Performed By: #### 5 7021-8 ####[facility] LABORATORYCLIA [id number] [address] [place] Monocytes/100 WBC (Bld) 7.1 % Normal [facility] Comment on above: Order Comment: Speci men Type: BLOOD SPECIMENOrdering Facility: [facility] Address: [address] [place] [address] Performed By: #### 5 7021-8 ####[facility]ORATORYCLIA [id number] [place] [address] [place] Neutrophils (Bld) [#/Vol] 5.14 10*3/uL Normal 1.45-7.50 [facility] Comment on above: Order Comment: Speci men Type: BLOOD SPECIMENOrdering Facility: [facility] Address: [address] [place] [address] Performed By: #### 5 7021-8 ####[facility]ORATORYCLIA [id number] [place] [address] [place] Neutrophils/100 WBC (Bld) 74.9 % Normal [facility] Comment on above: Order Comment: Speci men Type: BLOOD SPECIMENOrdering Facility: [facility] Address: [address] [place] [address] Performed By: #### 5 7021-8 ####[facility]ORATORYCLIA [id number] [address] Nucleated RBC (Bld) [#/Vol] 0.02 10*3/uL High <0.01 [facility] Comment on above: Order Comment: Speci men Type: BLOOD SPECIMENOrdering Facility: [facility] Address: [address] [place] [address] Performed By: #### 5 7021-8 ####[facility]ORATORYCLIA [id number] [address] Nucleated RBC/100 WBC (Bld) [Ratio] 0.3 /100 WBC Normal [facility] Comment on above: Order Comment: Speci men Type: BLOOD SPECIMENOrdering Facility: [facility] Address: [address] [place] [address] Performed By: #### 5 7021-8 ####[facility]ORATORYCLIA [id number] [address] [place] Platelet mean volume (Bld) [Entitic vol] Normal [facility] Comment on above: Order Comment: Speci men Type: BLOOD SPECIMENOrdering Facility: [facility] Address: [address] [place] [address] Result Comment: Unab le to Report. Performed By: #### 5 7021-8 ####[facility]ORATORYCLIA [id number] [address] [place] Platelets (Bld) [#/Vol] 54 10*3/uL Low 150-400 [facility] Comment on above: Order Comment: Speci men Type: BLOOD SPECIMENOrdering Facility: [facility] Address: [address] [place] [address] Result Comment: No c lot detected. Performed By: #### 5 7021-8 ####[facility]ORATORYCLIA [id number] [address] [place] RBC (Bld) [#/Vol] 3.16 10*6/uL Low 4.20-6.00 [facility] Comment on above: Order Comment: Speci men Type: BLOOD SPECIMENOrdering Facility: [facility] Address: [address] [place] [address] Performed By: #### 5 7021-8 ####[facility]ORATORYCLIA [id number] [address] STATES OF [facility] WBC (Bld) [#/Vol] 6.87 10*3/uL Normal 3.70-11.00 [facility] Comment on above: Order Comment: Speci men Type: BLOOD SPECIMENOrdering Facility: [facility] Address: [address] [place] [address] Performed By: #### 5 7021-8 ####[facility]ORATORYCLIA [id number] [address] Comprehensive metabolic 2000 panelon 06-06-2024 Albumin [Mass/Vol] 3.6 g/dL Low 3.9-4.9 [facility] Comment on above: Order Comment: Speci men Type: BLOOD SPECIMENOrdering Facility: [facility] Address: [address] [place] [address] Performed By: #### 2 4323-8 ####[facility]ORATORYCLIA [id number] [address] OF [facility] ALP [Catalytic activity/Vol] 94 U/L Normal 38-113 [facility] Comment on above: Order Comment: Speci men Type: BLOOD SPECIMENOrdering Facility: [facility] Address: [address] [place] [address] Performed By: #### 2 4323-8 ####[facility]ORATORYCLIA [id number] [address] ALT With P-5'-P [Catalytic activity/Vol] 13 U/L Normal 10-54 [facility] Comment on above: Order Comment: Speci men Type: BLOOD SPECIMENOrdering Facility: [facility] Address: [address] [place], [place] [address] Performed By: #### 2 4323-8 ####[facility]ORATORYCLIA [id number] [place] [address] [place] Anion gap [Moles/Vol] 13 mmol/L Normal 8-15 [facility] Comment on above: Order Comment: Speci men Type: BLOOD SPECIMENOrdering Facility: [facility] Address: [address] [place] [address] Performed By: #### 2 4323-8 ####[facility]ORATORYCLIA [id number] [place] [address] [place] AST With P-5'-P [Catalytic activity/Vol] 17 U/L Normal 14-40 [facility] Comment on above: Order Comment: Speci men Type: BLOOD SPECIMENOrdering Facility: [facility] Address: [address] [place] [address] Performed By: #### 2 4323-8 ####[facility]ORATORYCLIA [id number] [place] [address] [place] Bilirubin [Mass/Vol] 0.4 mg/dL Normal 0.2-1.3 [facility] Comment on above: Order Comment: Speci men Type: BLOOD SPECIMENOrdering Facility: [facility] Address: [address] [place] [address] Performed By: #### 2 4323-8 ####[facility]ATORYCLIA [id number] [place] [address] [place] Calcium [Mass/Vol] 9.3 mg/dL Normal 8.5-10.2 [facility] Comment on above: Order Comment: Speci men Type: BLOOD SPECIMENOrdering Facility: [facility] Address: [address] [place] [address] Performed By: #### 2 4323-8 ####[facility]ORATORYCLIA [id number] [place] [address] [place] Chloride [Moles/Vol] 98 mmol/L Normal 98-107 [facility] Comment on above: Order Comment: Speci men Type: BLOOD SPECIMENOrdering Facility: [facility] Address: [address] [place] [address] Performed By: #### 2 4323-8 ####[facility]ORATORYCLIA [id number] [place] [id number] [place] CO2 [Moles/Vol] 22 mmol/L Normal 22-30 [facility] Comment on above: Order Comment: Speci men Type: BLOOD SPECIMENOrdering Facility: [facility] Address: [address] [place] [address] Performed By: #### 2 4323-8 ####[facility]ORATORYCLIA [id number] [address] STATES OF [facility] Creatinine [Mass/Vol] 0.87 mg/dL Normal 0.73-1.22 [facility] Comment on above: Order Comment: Speci men Type: BLOOD SPECIMENOrdering Facility: [facility] Address: [address] [place] [address] Performed By: #### 2 4323-8 ####[facility]ORATORYCLIA [id number] [address] Creatinine and Glomerular filtration rate.predicted panel (S/P/Bld) 87 mL/min/1.73m??? Normal >=60 [facility] Comment on above: Order Comment: Speci men Type: BLOOD SPECIMENOrdering Facility: [facility] Address: [address] [place] [address] Result Comment: Sharon mated Glomerular Filtration Rate [...] actual GFR. Performed By: #### 2 4323-8 ####[facility]ORATORYCLIA [id number] [address] [place] Glucose [Mass/Vol] 233 mg/dL High 74-99 [facility] Comment on above: Order Comment: Speci men Type: BLOOD SPECIMENOrdering Facility: [facility] Address: [address] [place] [address] Result Comment: The [place] Diabetes Association (ADA) provides guidance for cutoff [...] Standards of Medical Care in Diabetes 2016, [place] [employer]. Diabetes Care. 2016.39(Suppl 1). Performed By: #### 2 4323-8 ####[facility]ORATORYCLIA [id number] [place] [address] [place] Potassium [Moles/Vol] 4.1 mmol/L Normal 3.7-5.1 [facility] Comment on above: Order Comment: Speci men Type: BLOOD SPECIMENOrdering Facility: [facility] Address: [address] [place] [address] Performed By: #### 2 4323-8 ####[facility]ORATORYCLIA [id number] [place] [address] [place] Protein [Mass/Vol] 7.1 g/dL Normal 6.3-8.0 [facility] Comment on above: Order Comment: Speci men Type: BLOOD SPECIMENOrdering Facility: [facility] Address: [address] [place] [address] Performed By: #### 2 4323-8 ####[facility]ORATORYCLIA [id number] [place] [address] [place] Sodium [Moles/Vol] 133 mmol/L Low 136-144 [facility] Comment on above: Order Comment: Speci men Type: BLOOD SPECIMENOrdering Facility: [facility] Address: [address] [place] [address] Performed By: #### 2 4323-8 ####[facility]ORATORYCLIA [id number] [place] [address] [place] Urea nitrogen [Mass/Vol] 15 mg/dL Normal 9-24 [facility] Comment on above: Order Comment: Speci men Type: BLOOD SPECIMENOrdering Facility: [facility] Address: [address] [place] [address] Performed By: #### 2 4323-8 ####[facility] LABORATORYCLIA [id number] [place] [address] [place] ED NOTEon 06-06-2024 ED NOTE HNO ID: [id number] Author: ANIYA FARFAN RN Service: ? Author Type: Registered Nurse Type: ED Notes Filed: 06/06/2024 11:37 Note Text: Verified room is clean with 8100 Normal [facility] ED NOTE Normal [facility] ED PROV NOTEon 06-06-2024 ED PROV NOTE Normal [facility] HISTORY PHYSICALon HISTORY PHYSICAL Normal [facility] THERAPY NTon 06-06-2024 THERAPY NT Normal [facility] Basic metabolic 2000 panelon 06-05-2024 Anion gap [Moles/Vol] 14 mmol/L Normal 8-15 [facility] Comment on above: Order Comment: Speci men Type: BLOOD SPECIMENOrdering Facility: [facility] Address: [address] [place] [address] Performed By: #### 2 4321-2, ####[facility] [place] LABCLIA [id number] [place] [address] [place] Calcium [Mass/Vol] 9.2 mg/dL Normal 8.5-10.2 [facility] Comment on above: Order Comment: Speci men Type: BLOOD SPECIMENOrdering Facility: [facility] Address: [address] [place] [address] Performed By: #### 2 4321-2, ####[facility] [place] LABCLIA [id number] [place] [address] [place] Chloride [Moles/Vol] 101 mmol/L Normal 98-107 [facility] Comment on above: Order Comment: Speci men Type: BLOOD SPECIMENOrdering Facility: [facility] Address: [address] [place] [address] Performed By: #### 2 4321-2, ####[facility] LABCLIA [id number] [place] [address] [place] CO2 [Moles/Vol] 18 mmol/L Low 22-30 [facility] Comment on above: Order Comment: Speci men Type: BLOOD SPECIMENOrdering Facility: [facility] Address: [address] [place] [address] Performed By: #### 2 432-2, ####[facility] LABCLIA [id number] [place] [address] [place] Creatinine [Mass/Vol] 0.90 mg/dL Normal 0.73-1.22 [facility] Comment on above: Order Comment: Speci men Type: BLOOD SPECIMENOrdering Facility: [facility] Address: [address] [place] [address] Performed By: #### 2 4321-2, ####[facility] LABCLIA [id number] [place] [address] [place] Creatinine and Glomerular filtration rate.predicted panel (S/P/Bld) 86 mL/min/1.73m??? Normal >=60 [facility] Comment on above: Order Comment: Speci men Type: BLOOD SPECIMENOrdering Facility: [facility] Address: [address] [place], [place] [id number] Result Comment: Sharon mated Glomerular Filtration Rate [...] reflect actual GFR. Performed By: #### 2 ####[facility] LABCLIA [id number] [place] [address] [place] Glucose [Mass/Vol] 181 mg/dL High 74-99 [facility] Comment on above: Order Comment: Speci men Type: BLOOD SPECIMENOrdering Facility: [facility] Address: [address] [place] [address] Result Comment: The [place] Diabetes Association (ADA) provides guidance for cutoff [...] Standards of Medical Care in Diabetes 2016, [place] [employer]. Diabetes Care. 2016.39(Suppl 1). Performed By: #### 2 ####[facility] LABCLIA [id number] [place] [address] [place] Potassium [Moles/Vol] 4.5 mmol/L Normal 3.7-5.1 [facility] Comment on above: Order Comment: Speci men Type: BLOOD SPECIMENOrdering Facility: [facility] Address: [address] [place] [address] Performed By: #### 2 4320-03, ####[facility] LABCLIA [id number] [place] [address] [place] Sodium [Moles/Vol] 133 mmol/L Low 136-144 [facility] Comment on above: Order Comment: Speci men Type: BLOOD SPECIMENOrdering Facility: [facility] Address: [address] [place], [place] [address] Performed By: #### 2 4320-03, ####[facility] LABCLIA [id number] [facility] [place] [address] [place] Urea nitrogen [Mass/Vol] 20 mg/dL Normal 9-24 [facility] Comment on above: Order Comment: Speci men Type: BLOOD SPECIMENOrdering Facility: [facility] Address: [address] [place] [address] Performed By: #### 2 4321-2, 80348-0 ####[facility] LABCLIA [id number] [place] [address] [facility] [place] CASE MANAGEMon 06-05-2024 CASE MANAGEM Normal [facility] CBC panel Auto (Bld)on 06-05 Erythrocyte distribution width (RBC) [Ratio] 17.4 % High 11.5-15.0 [facility] Comment on above: Order Comment: Speci men Type: BLOOD SPECIMENOrdering Facility: [facility] Address: [address] [place] [address] Performed By: #### 5 8410-2 ####[facility] LABCLIA [id number] [place] [address] [place] [facility] Hematocrit (Bld) [Volume fraction] 26.5 % Low 39.0-51.0 [facility] Comment on above: Order Comment: Speci men Type: BLOOD SPECIMENOrdering Facility: [facility] Address: [address] [place] [address] Performed By: #### 5 8410-2 ####[facility] LABCLIA [id number] [place] [address] [place] Hemoglobin (Bld) [Mass/Vol] 9.2 g/dL Low 13.0-17.0 [facility] Comment on above: Order Comment: Speci men Type: BLOOD SPECIMENOrdering Facility: [facility] Address: [address] [place] [address] Performed By: #### 5 8410-2 ####[facility] LABCLIA [id number] [place] [address] [place] MCH (RBC) [Entitic mass] 28.3 pg Normal 26.0-34.0 [facility] Comment on above: Order Comment: Speci men Type: BLOOD SPECIMENOrdering Facility: [facility] Address: [address] [place] [address] Performed By: #### 5 8410-2 ####[facility] LABCLIA [id number] [place] [address] [place] MCHC (RBC) [Mass/Vol] 34.7 g/dL Normal 30.5-36.0 [facility] Comment on above: Order Comment: Speci men Type: BLOOD SPECIMENOrdering Facility: [facility] Address: [address] [place] [address] Performed By: #### 5 8410-2 ####[facility] LABCLIA [id number] [place] [address] [place] MCV (RBC) [Entitic vol] 81.5 fL Normal 80.0-100.0 [facility] Comment on above: Order Comment: Speci men Type: BLOOD SPECIMENOrdering Facility: [facility] Address: [address] [place] [address] Performed By: #### 5 8410-2 ####[facility] LABCLIA [id number] [place] [address] [place] Platelet mean volume (Bld) [Entitic vol] Normal [facility] Comment on above: Order Comment: Speci men Type: BLOOD SPECIMENOrdering Facility: [facility] Address: [address] [place] [address] Result Comment: Unab le to Report. Performed By: #### 5 8410-2 ####[facility] LABCLIA [id number] [place] [address] [facility] [place] Platelets (Bld) [#/Vol] 63 10*3/uL Low 150-400 [facility] Comment on above: Order Comment: Speci men Type: BLOOD SPECIMENOrdering Facility: [facility] Address: [address] [place] [address] Result Comment: Resu lts checked and verified.No clot detected. Performed By: #### 5 8410-2 ####[facility] [place] LABCLIA [id number] [place] [address] [facility] RBC (Bld) [#/Vol] 3.25 10*6/uL Low 4.20-6.00 [facility] Comment on above: Order Comment: Speci men Type: BLOOD SPECIMENOrdering Facility: [facility] Address: [address] [place] [address] Performed By: #### 5 8410-2 ####[facility] LABCLIA [id number] [place] [address] [facility] WBC (Bld) [#/Vol] 5.85 10*3/uL Normal 3.70-11.00 [facility] Comment on above: Order Comment: Speci men Type: BLOOD SPECIMENOrdering Facility: [facility] Address: [address] [place] [address] Performed By: #### 5 8410-2 ####[facility] LABCLIA [id number] [place] [address] [facility] [place] CNDSon 06-05-2024 CNDS Normal [facility] Magnesium SerPl-mCncon 06-05 Magnesium [Mass/Vol] 1.7 mg/dL Normal 1.7-2.3 [facility] Comment on above: Order Comment: Speci men Type: BLOOD SPECIMENOrdering Facility: [facility] Address: [address] [place] [address] Performed By: #### 2 4321-2, 01612-4 ####[facility] LABCLIA [id number] [place] [address] [facility] THERAPY NTon 06-05-2024 THERAPY NT Normal [facility] Basic metabolic 2000 panelon 06-04-2024 Anion gap [Moles/Vol] 12 mmol/L Normal 8-15 [facility] Comment on above: Order Comment: Speci men Type: BLOOD SPECIMENOrdering Facility: [facility] Address: [address] [place] [address] Performed By: #### 1 91239, 53757-6 ####[facility] [place] LABCLIA [id number] [place] [address] [place] Calcium [Mass/Vol] 8.9 mg/dL Normal 8.5-10.2 [facility] Comment on above: Order Comment: Speci men Type: BLOOD SPECIMENOrdering Facility: [facility] Address: [address] [place] [address] Performed By: #### 1 91239, 42613-7 ####[facility] [place] LABCLIA [id number] [place] [address] [place] Chloride [Moles/Vol] 108 mmol/L High 98-107 [facility] Comment on above: Order Comment: Speci men Type: BLOOD SPECIMENOrdering Facility: [facility] Address: [address] [place] [address] Performed By: #### 1 9, 00506-8 ####[facility] [place] LABCLIA [id number] [place] [address] [place] CO2 [Moles/Vol] 21 mmol/L Low 22-30 [facility] Comment on above: Order Comment: Speci men Type: BLOOD SPECIMENOrdering Facility: [facility] Address: [address] [place] [address] Performed By: #### 1 239, 90936-5 ####[facility] [place] LABCLIA [id number] [place] [address] [place] Creatinine [Mass/Vol] 0.95 mg/dL Normal 0.73-1.22 [facility] Comment on above: Order Comment: Speci men Type: BLOOD SPECIMENOrdering Facility: [facility] Address: [address] [place] [address] Performed By: #### 1 91239, 55307-3 ####[facility] [place] LABCLIA [id number] [place] [address] [place] Creatinine and Glomerular filtration rate.predicted panel (S/P/Bld) 80 mL/min/1.73m??? Normal >=60 [facility] Comment on above: Order Comment: aMthew portillo Type: BLOOD SPECIMENOrdering Facility: [facility] Address: [address] [place] [address] Result Comment: Sharon mated Glomerular Filtration Rate [...] actual GFR. Performed By: #### 1 9123-9, 24720-8 ####[facility] LABCLIA [id number] [place] [address] [place] Glucose [Mass/Vol] 183 mg/dL High 74-99 [facility] Comment on above: Order Comment: Mathew portillo Type: BLOOD SPECIMENOrdering Facility: [facility] Address: [address] [place] [address] Result Comment: The [place] Diabetes Association (ADA) provides guidance for cutoff [...] Standards of Medical Care in Diabetes 2016, [place] [employer]. Diabetes Care. 2016.39(Suppl 1). Performed By: #### 1 9123-9, 90391-1 ####[facility] LABCLIA [id number] [place] [address] [place] Potassium [Moles/Vol] 4.4 mmol/L Normal 3.7-5.1 [facility] Comment on above: Order Comment: Speci men Type: BLOOD SPECIMENOrdering Facility: [facility] Address: [address] [place] [address] Performed By: #### 1 9123-9, 03365-0 ####[facility] [place] LABCLIA [id number] [facility] [place] [address] [place] Sodium [Moles/Vol] 141 mmol/L Normal 136-144 [facility] Comment on above: Order Comment: Speci men Type: BLOOD SPECIMENOrdering Facility: [facility] Address: [address] [place] [address] Performed By: #### 1 9123-9, 47731-9 ####[facility] LABCLIA [id number] [facility] [place] [address] [place] Urea nitrogen [Mass/Vol] 23 mg/dL Normal 9-24 [facility] Comment on above: Order Comment: Speci men Type: BLOOD SPECIMENOrdering Facility: [facility] Address: [address] [place] [address] Performed By: #### 1 9123-9, 23704-0 ####[facility] LABCLIA [id number] [place] [address] [place] CASE MGT INIT ASSESon 2024 CASE MGT INIT ASSES Normal [facility] CBC panel Auto (Bld)on 06-04 Erythrocyte distribution width (RBC) [Ratio] 16.7 % High 11.5-15.0 [facility] Comment on above: Order Comment: Speci men Type: BLOOD SPECIMENOrdering Facility: [facility] Address: [address] [place] [address] Performed By: #### 5 8410-2 ####[facility] [place] LABCLIA [id number] [facility] [place] [address] [place] Hematocrit (Bld) [Volume fraction] 23.2 % Low 39.0-51.0 [facility] Comment on above: Order Comment: Speci men Type: BLOOD SPECIMENOrdering Facility: [facility] Address: [address] [place] [address] Performed By: #### 5 8410-2 ####[facility] [place] LABCLIA [id number] [place] [address] [facility] Hemoglobin (Bld) [Mass/Vol] 7.8 g/dL Low 13.0-17.0 [facility] Comment on above: Order Comment: Speci men Type: BLOOD SPECIMENOrdering Facility: [facility] Address: [address] [place] [address] Performed By: #### 5 8410-2 ####[facility] LABCLIA [id number] [place] [address] [facility] MCH (RBC) [Entitic mass] 27.7 pg Normal 26.0-34.0 [facility] Comment on above: Order Comment: Speci men Type: BLOOD SPECIMENOrdering Facility: [facility] Address: [address] [place] [address] Performed By: #### 5 8410-2 ####[facility] LABCLIA [id number] [place] [address] [place] [facility] MCHC (RBC) [Mass/Vol] 33.6 g/dL Normal 30.5-36.0 [facility] Comment on above: Order Comment: Speci men Type: BLOOD SPECIMENOrdering Facility: [facility] Address: [address] [place] [address] Performed By: #### 5 8410-2 ####[facility] LABCLIA [id number] [place] [address] [place] MCV (RBC) [Entitic vol] 82.3 fL Normal 80.0-100.0 [facility] Comment on above: Order Comment: Speci men Type: BLOOD SPECIMENOrdering Facility: [facility] Address: [address] [place] [address] Performed By: #### 5 8410-2 ####[facility] LABCLIA [id number] [place] [address] [place] Platelet mean volume (Bld) [Entitic vol] Normal [facility] Comment on above: Order Comment: Speci men Type: BLOOD SPECIMENOrdering Facility: [facility] Address: [address] [place] [address] Result Comment: Unab le to Report. Performed By: #### 5 8410-2 ####[facility] LABCLIA [id number] [place] [address] [place] Platelets (Bld) [#/Vol] 55 10*3/uL Low 150-400 [facility] Comment on above: Order Comment: Speci men Type: BLOOD SPECIMENOrdering Facility: [facility] Address: [address] [place] [address] Result Comment: Resu lts checked and verified.No clot detected. Performed By: #### 5 8410-2 ####[facility] LABCLIA [id number] [place] [address] [place] RBC (Bld) [#/Vol] 2.82 10*6/uL Low 4.20-6.00 [facility] Comment on above: Order Comment: Speci men Type: BLOOD SPECIMENOrdering Facility: [facility] Address: [address] [place] [address] Performed By: #### 5 8410-2 ####[facility] LABCLIA [id number] [place] [address] [place] [place] WBC (Bld) [#/Vol] 4.18 10*3/uL Normal 3.70-11.00 [facility] Comment on above: Order Comment: Speci men Type: BLOOD SPECIMENOrdering Facility: [facility] Address: [address] [place] [address] Performed By: #### 5 8410-2 ####[facility] LABCLIA [id number] [place] [address] [place] Erythrocyte distribution width (RBC) [Ratio] 13.9 % Normal 11.5-15.0 [facility] Comment on above: Order Comment: Speci men Type: BLOOD SPECIMENOrdering Facility: [facility] Address: [address] [place] [address] Performed By: #### 5 8410-2 ####[facility] LABCLIA [id number] [place] [address] [facility] Hematocrit (Bld) [Volume fraction] 20.0 % Low 39.0-51.0 [facility] Comment on above: Order Comment: Speci men Type: BLOOD SPECIMENOrdering Facility: [facility] Address: [address] [place] [address] Performed By: #### 5 8410-2 ####[facility] LABCLIA [id number] [place] [id number] [facility] [place] Hemoglobin (Bld) [Mass/Vol] 6.8 g/dL Low 13.0-17.0 [facility] Comment on above: Order Comment: Speci men Type: BLOOD SPECIMENOrdering Facility: [facility] Address: [address] [place] [address] Performed By: #### 5 8410-2 ####[facility] LABCLIA [id number] [address] [place] MCH (RBC) [Entitic mass] 29.2 pg Normal 26.0-34.0 [facility] Comment on above: Order Comment: Speci men Type: BLOOD SPECIMENOrdering Facility: [facility] Address: [address] [place] [address] Performed By: #### 5 8410-2 ####[facility] LABCLIA [id number] [place] [address] [place] MCHC (RBC) [Mass/Vol] 34.0 g/dL Normal 30.5-36.0 [facility] Comment on above: Order Comment: Speci men Type: BLOOD SPECIMENOrdering Facility: [facility] Address: [address] [place] [address] Performed By: #### 5 8410-2 ####[facility] LABCLIA [id number] [place] [address] [place] MCV (RBC) [Entitic vol] 85.8 fL Normal 80.0-100.0 [facility] Comment on above: Order Comment: Speci men Type: BLOOD SPECIMENOrdering Facility: [facility] Address: [address] [place] [address] Performed By: #### 5 8410-2 ####[facility] LABCLIA [id number] [place] [address] [place] Platelet mean volume (Bld) [Entitic vol] 12.2 fL Normal 9.0-12.7 [facility] Comment on above: Order Comment: Speci men Type: BLOOD SPECIMENOrdering Facility: [facility] Address: [address] [place] [address] Performed By: #### 5 8410-2 ####[facility] LABCLIA [id number] [facility] [place] [address] [place] Platelets (Bld) [#/Vol] 45 10*3/uL Low 150-400 [facility] Comment on above: Order Comment: Speci men Type: BLOOD SPECIMENOrdering Facility: [facility] Address: [address] [place] [address] Performed By: #### 5 8410-2 ####[facility] LABCLIA [id number] [facility] [place] [address] [place] RBC (Bld) [#/Vol] 2.33 10*6/uL Low 4.20-6.00 [facility] Comment on above: Order Comment: Speci men Type: BLOOD SPECIMENOrdering Facility: [facility] Address: [address] [place] [address] Performed By: #### 5 8410-2 ####[facility] LABCLIA [id number] [facility] [place] [address] [place] WBC (Bld) [#/Vol] 4.61 10*3/uL Normal 3.70-11.00 [facility] Comment on above: Order Comment: Speci men Type: BLOOD SPECIMENOrdering Facility: [facility] Address: [address] [place] [address] Performed By: #### 5 8410-2 ####[facility] LABCLIA [id number] [place] [address] [place] ECG COMPLETEon 06-04-2024 ECG COMPLETE Normal [facility] HISTORY PHYSICALon HISTORY PHYSICAL Normal [facility] Magnesium SerPl-mCncon 06-04 Magnesium [Mass/Vol] 1.8 mg/dL Normal 1.7-2.3 [facility] Comment on above: Order Comment: Speci men Type: BLOOD SPECIMENOrdering Facility: [facility] Address: [address] [place] [address] Performed By: #### 1 9123-9, 17650-9 ####[facility] LABCLIA [id number] [place] [id number] [facility] NURSING PROGon 06-04-2024 NURSING PROG Normal [facility] THERAPY NTon 06-04-2024 THERAPY NT Normal [facility] THERAPY NT Normal [facility] TYPE + SCREENon 06-04-2024 ABO B Normal [facility] Comment on above: Order Comment: Speci men Type: BLOOD SPECIMENOrdering Facility: [facility] Address: [address] [place] [address] Performed By: #### T SCR ####[facility] BLOOD BANKCLIA [id number] [address] [place] Rh Nom (Bld) Positive Normal [facility] Comment on above: Order Comment: Speci men Type: BLOOD SPECIMENOrdering Facility: [facility] Address: [address] [place] [address] Performed By: #### T SCR ####[facility] BLOOD BANKCLIA [id number] [address] [place] TYPE AND SCREEN EXPIRATION 06/07/2024 23:59 Normal [facility] Comment on above: Order Comment: Speci men Type: BLOOD SPECIMENOrdering Facility: [facility] Address: [address] [place] [id number] Performed By: #### T SCR ####[facility] BLOOD BANKCLIA [id number] [place] [address] [place] [address] LUMBAR SPINE WO IVCONon 0 06-03-2024 CT LUMBAR SPINE WO IVCON Normal [facility] ED NOTEon 06-03-2024 ED NOTE HNO ID: [id number] Author: DERRICK MUNGUIA, DERIC Service: Emergency Medicine Author Type: Registered Nurse Type: ED Notes Filed: 06/03/2024 23:16 Note Text: Called and updated Bill RN with medications and VS. Patient stable on leaving department. Normal [facility] ED NOTE Normal [facility] ED NOTE Normal [facility] ED NOTE HNO ID: [id number] Author: DERRICK MUNGUIA RN Service: Emergency Medicine Author Type: Registered Nurse Type: ED Notes Filed: 06/03/2024 22:27 Note Text: Assumed care of patient from DERIC Santiago. 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 yesterday Normal [facility] ED PROV NOTEon 06-03-2024 ED PROV NOTE Normal [facility] NURSING PROGon 06-03-2024 NURSING PROG Normal [facility] CBC W Auto Differential pane l (Bld)on 06-02-2024 Basophils (Bld) [#/Vol] NINF [facility] Basophils/100 WBC (Bld) 0.2 % [facility] Differential cell count method Nom (Bld) Auto [facility] Eosinophils (Bld) [#/Vol] NINF [facility] Eosinophils/100 WBC (Bld) 0 % [facility] Erythrocyte distribution width (RBC) [Ratio] 13.4 % 11.5 - 15.0 % [facility] Hematocrit (Bld) [Volume fraction] 22.2 % Low 39.0 - 51.0 % [facility] Hemoglobin (Bld) [Mass/Vol] 7.7 g/dL Low 13.0 - 17.0 g/dL [facility] Immature granulocytes (Bld) [#/Vol] 0.06 10*3/uL [facility] Immature granulocytes/100 WBC (Bld) 1.4 % [facility] Interpretation and review of laboratory results Abnormal [facility] Lymphocytes (Bld) [#/Vol] 1.96 10*3/uL [facility] Lymphocytes/100 WBC (Bld) 46 % [facility] MCH (RBC) [Entitic mass] 29.4 pg 26.0 - 34.0 pg [facility] MCHC (RBC) [Mass/Vol] 34.7 g/dL 30.5 - 36.0 g/dL [facility] MCV (RBC) [Entitic vol] 84.7 fL 80.0 - 100.0 fL [facility] Monocytes (Bld) [#/Vol] 0.37 10*3/uL [facility] Monocytes/100 WBC (Bld) 8.7 % [facility] Neutrophils (Bld) [#/Vol] 1.86 10*3/uL [facility] Neutrophils/100 WBC (Bld) 43.7 % [facility] Nucleated RBC (Bld) [#/Vol] [facility] Nucleated RBC/100 WBC (Bld) [Ratio] 0 % /100 WBC [facility] Platelet mean volume (Bld) [Entitic vol] 12.1 fL 9.0 - 12.7 fL [facility] Platelets (Bld) [#/Vol] 60 10*3/uL Low [facility] Comment on above: No clot detected. RBC (Bld) [#/Vol] 2.62 10*6/uL Low 4.20 - 6.0 0 m/uL [facility] WBC (Bld) [#/Vol] 4.26 10*3/uL [facility] Basophils (Bld) [#/Vol] 10*3/uL Normal <0.11 [facility] Comment on above: Order Comment: Speci men Type: BLOOD SPECIMENOrdering Facility: [facility] Address: [address] [place] [address] Performed By: #### 5 7021-8 ####[facility]ORATORYCLIA [id number] [address] [place] Basophils/100 WBC (Bld) 0.2 % Normal [facility] Comment on above: Order Comment: Speci men Type: BLOOD SPECIMENOrdering Facility: [facility] Address: [address] [place] [address] Performed By: #### 5 7021-8 ####[facility] LABORATORYCLIA [id number] [address] [place] Differential cell count method Nom (Bld) Auto Normal [facility] Comment on above: Order Comment: Speci men Type: BLOOD SPECIMENOrdering Facility: [facility] Address: [address] [place] [address] Performed By: #### 5 7021-8 ####[facility] LABORATORYCLIA [id number] [address] [place] Eosinophils (Bld) [#/Vol] 10*3/uL Normal <0.46 [facility] Comment on above: Order Comment: Speci men Type: BLOOD SPECIMENOrdering Facility: [facility] Address: [address] [place] [address] Performed By: #### 5 7021-8 ####[facility] LABORATORYCLIA [id number] [address] [place] Eosinophils/100 WBC (Bld) 0.0 % Normal [facility] Comment on above: Order Comment: Speci men Type: BLOOD SPECIMENOrdering Facility: [facility] Address: [address] [place] [address] Performed By: #### 5 7021-8 ####[facility]ORATORYCLIA [id number] [address] [place] Erythrocyte distribution width (RBC) [Ratio] 13.4 % Normal 11.5-15.0 [facility] Comment on above: Order Comment: Speci men Type: BLOOD SPECIMENOrdering Facility: [facility] Address: [address] [place] [address] Performed By: #### 5 7021-8 ####[facility]ORATORYCLIA [id number] [address] [place] Hematocrit (Bld) [Volume fraction] 22.2 % Low 39.0-51.0 [facility] Comment on above: Order Comment: Speci men Type: BLOOD SPECIMENOrdering Facility: [facility] Address: [address] [place] [address] Performed By: #### 5 7021-8 ####[facility] LABORATORYCLIA [id number] [address] [place] Hemoglobin (Bld) [Mass/Vol] 7.7 g/dL Low 13.0-17.0 [facility] Comment on above: Order Comment: Speci men Type: BLOOD SPECIMENOrdering Facility: [facility] Address: [address] [place] [address] Performed By: #### 5 7021-8 ####[facility] LABORATORYCLIA [id number] [address] [place] Immature granulocytes (Bld) [#/Vol] 0.06 10*3/uL Normal <0.10 [facility] Comment on above: Order Comment: Speci men Type: BLOOD SPECIMENOrdering Facility: [facility] Address: [address] [place] [address] Performed By: #### 5 7021-8 ####[facility] LABORATORYCLIA [id number] [address] [place] Immature granulocytes/100 WBC (Bld) 1.4 % Normal [facility] Comment on above: Order Comment: Speci men Type: BLOOD SPECIMENOrdering Facility: [facility] Address: [address] [place] [address] Performed By: #### 5 7021-8 ####[facility] LABORATORYCLIA [id number] [address] [place] Lymphocytes (Bld) [#/Vol] 1.96 10*3/uL Normal 1.00-4.00 [facility] Comment on above: Order Comment: Speci men Type: BLOOD SPECIMENOrdering Facility: [facility] Address: [address] [place] [address] Performed By: #### 5 7021-8 ####[facility] LABORATORYCLIA [id number] [address] Lymphocytes/100 WBC (Bld) 46.0 % Normal [facility] Comment on above: Order Comment: Speci men Type: BLOOD SPECIMENOrdering Facility: [facility] Address: [address] [place] [address] Performed By: #### 5 7021-8 ####[facility] LABORATORYCLIA [id number] [address] [place] MCH (RBC) [Entitic mass] 29.4 pg Normal 26.0-34.0 [facility] Comment on above: Order Comment: Speci men Type: BLOOD SPECIMENOrdering Facility: [facility] Address: [address] [place] [address] Performed By: #### 5 7021-8 ####[facility] LABORATORYCLIA [id number] [address] STATES OF [facility] MCHC (RBC) [Mass/Vol] 34.7 g/dL Normal 30.5-36.0 [facility] Comment on above: Order Comment: Speci men Type: BLOOD SPECIMENOrdering Facility: [facility] Address: [address] [place] [address] Performed By: #### 5 7021-8 ####[facility] LABORATORYCLIA [id number] [address] [place] MCV (RBC) [Entitic vol] 84.7 fL Normal 80.0-100.0 [facility] Comment on above: Order Comment: Speci men Type: BLOOD SPECIMENOrdering Facility: [facility] Address: [address] [place] [address] Performed By: #### 5 7021-8 ####[facility] LABORATORYCLIA [id number] [address] [place] Monocytes (Bld) [#/Vol] 0.37 10*3/uL Normal <0.87 [facility] Comment on above: Order Comment: Speci men Type: BLOOD SPECIMENOrdering Facility: [facility] Address: [address] [place] [address] Performed By: #### 5 7021-8 ####[facility]ORATORYCLIA [id number] [place] [address] [place] Monocytes/100 WBC (Bld) 8.7 % Normal [facility] Comment on above: Order Comment: Speci men Type: BLOOD SPECIMENOrdering Facility: [facility] Address: [address] [place] [address] Performed By: #### 5 7021-8 ####[facility] LABORATORYCLIA [id number] [place] [address] [place] Neutrophils (Bld) [#/Vol] 1.86 10*3/uL Normal 1.45-7.50 [facility] Comment on above: Order Comment: Speci men Type: BLOOD SPECIMENOrdering Facility: [facility] Address: [address] [place] [address] Performed By: #### 5 7021-8 ####[facility] LABORATORYCLIA [id number] [address] [place] Neutrophils/100 WBC (Bld) 43.7 % Normal [facility] Comment on above: Order Comment: Speci men Type: BLOOD SPECIMENOrdering Facility: [facility] Address: [address] [place] [address] Performed By: #### 5 7021-8 ####[facility]ORATORYCLIA [id number] [place] [address] [place] Nucleated RBC (Bld) [#/Vol] 10*3/uL Normal <0.01 [facility] Comment on above: Order Comment: Speci men Type: BLOOD SPECIMENOrdering Facility: [facility] Address: [address] [place] [address] Performed By: #### 5 7021-8 ####[facility] LABORATORYCLIA [id number] [place] [address] [place] Nucleated RBC/100 WBC (Bld) [Ratio] 0.0 /100 WBC Normal [facility] Comment on above: Order Comment: Speci men Type: BLOOD SPECIMENOrdering Facility: [facility] Address: [address] [place] [address] Performed By: #### 5 7021-8 ####[facility] LABORATORYCLIA [id number] [place] [address] [place] Platelet mean volume (Bld) [Entitic vol] 12.1 fL Normal 9.0-12.7 [facility] Comment on above: Order Comment: Speci men Type: BLOOD SPECIMENOrdering Facility: [facility] Address: [address] [place] [address] Performed By: #### 5 7021-8 ####[facility] LABORATORYCLIA [id number] [address] [place] Platelets (Bld) [#/Vol] 60 10*3/uL Low 150-400 [facility] Comment on above: Order Comment: Speci men Type: BLOOD SPECIMENOrdering Facility: [facility] Address: [address] [place] [address] Result Comment: No c lot detected. Performed By: #### 5 7021-8 ####[facility] LABORATORYCLIA [id number] [place] [address] [place] RBC (Bld) [#/Vol] 2.62 10*6/uL Low 4.20-6.00 [facility] Comment on above: Order Comment: Speci men Type: BLOOD SPECIMENOrdering Facility: [facility] Address: [address] [place] [address] Performed By: #### 5 7021-8 ####[facility] LABORATORYCLIA [id number] [address] [place] WBC (Bld) [#/Vol] 4.26 10*3/uL Normal 3.70-11.00 [facility] Comment on above: Order Comment: Speci men Type: BLOOD SPECIMENOrdering Facility: [facility] Address: [address] [place] [address] Performed By: #### 5 7021-8 ####[facility] LABORATORYCLIA [id number] [place] [address] [place] [facility] Comprehensive metabolic 2000 panelon 06-02-2024 Albumin [Mass/Vol] 3.8 g/dL Low 3.9 - 4.9 g/dL Cl [facility] ALP [Catalytic activity/Vol] 106 U/L 38 - 113 U/L [facility] ALT With P-5'-P [Catalytic activity/Vol] 14 U/L 10 - 54 U/L [facility] Anion gap [Moles/Vol] 15 mmol/L 8 - 15 mmol/L [facility] AST With P-5'-P [Catalytic activity/Vol] 17 U/L 14 - 40 U/L [facility] Bilirubin [Mass/Vol] 0.2 mg/dL 0.2 - 1.3 mg/dL [facility] Calcium [Mass/Vol] 9 mg/dL 8.5 - 10. 2 mg/dL [facility] Chloride [Moles/Vol] 102 mmol/L 98 - 107 mmol/L [facility] CO2 [Moles/Vol] 19 mmol/L Low 22 - 30 mmol/L [facility] Creatinine [Mass/Vol] 0.97 mg/dL 0.73 - 1.22 mg/dL [facility] GFR/1.73 sq M.predicted among non-blacks MDRD (S/P/Bld) [Vol rate/Area] 78 mL/min/{1.73_m2} - PINF [facility] Comment on above: Estimated Glomerular Filtration Rate [...] 217 mg/dL High 74 - 99 mg/dL [facility] Comment on above: The [place] Diab[employer] Association (ADA) provides guidance for [...] Standards of Medical Care in Diabetes 2016, [place] [employer]. Diabetes Care. 2016.39(Suppl 1). Interpretation and review of laboratory results Abnormal [facility] Potassium [Moles/Vol] 4.2 mmol/L 3.7 - 5.1 mmol/L [facility] Protein [Mass/Vol] 6.7 g/dL 6.3 - 8.0 g/dL Cl [facility] Sodium [Moles/Vol] 136 mmol/L 136 - 144 mmol/L [facility] Urea nitrogen [Mass/Vol] 23 mg/dL 9 - 24 mg/dL [facility] Albumin [Mass/Vol] 3.8 g/dL Low 3.9-4.9 [facility] Comment on above: Order Comment: Mathew portillo Type: BLOOD SPECIMENOrdering Facility: [facility] Address: [address] [place] [address] Performed By: #### 2 4323-8 ####[facility] LABORATORYCLIA [id number] [address] STATES OF [facility] ALP [Catalytic activity/Vol] 106 U/L Normal 38-113 [facility] Comment on above: Order Comment: Mathew portillo Type: BLOOD SPECIMENOrdering Facility: [facility] Address: [address] [place] [address] Performed By: #### 2 4323-8 ####[facility] LABORATORYCLIA [id number] [place] [address] [place] ALT With P-5'-P [Catalytic activity/Vol] 14 U/L Normal 10-54 [facility] Comment on above: Order Comment: Mathew portillo Type: BLOOD SPECIMENOrdering Facility: [facility] Address: [address] [place] [address] Performed By: #### 2 4323-8 ####[facility]ORATORYCLIA [id number] [place] [address] [place] Anion gap [Moles/Vol] 15 mmol/L Normal 8-15 [facility] Comment on above: Order Comment: Speci men Type: BLOOD SPECIMENOrdering Facility: [facility] Address: [address] [place] [address] Performed By: #### 2 4323-8 ####[facility] LABORATORYCLIA [id number] [place] [address] [place] AST With P-5'-P [Catalytic activity/Vol] 17 U/L Normal 14-40 [facility] Comment on above: Order Comment: Speci men Type: BLOOD SPECIMENOrdering Facility: [facility] Address: [address] [place] [address] Performed By: #### 2 4323-8 ####[facility] LABORATORYCLIA [id number] [place] [address] [place] Bilirubin [Mass/Vol] 0.2 mg/dL Normal 0.2-1.3 [facility] Comment on above: Order Comment: Speci men Type: BLOOD SPECIMENOrdering Facility: [facility] Address: [address] [place] [address] Performed By: #### 2 4323-8 ####[facility] LABORATORYCLIA [id number] [address] [place] Calcium [Mass/Vol] 9.0 mg/dL Normal 8.5-10.2 [facility] Comment on above: Order Comment: Speci men Type: BLOOD SPECIMENOrdering Facility: [facility] Address: [address] [place] [address] Performed By: #### 2 4323-8 ####[facility] LABORATORYCLIA [id number] [place] [address] [place] Chloride [Moles/Vol] 102 mmol/L Normal 98-107 [facility] Comment on above: Order Comment: Speci men Type: BLOOD SPECIMENOrdering Facility: [facility] Address: [address] [place] [address] Performed By: #### 2 4323-8 ####[facility] LABORATORYCLIA [id number] [address] STATES OF [facility] CO2 [Moles/Vol] 19 mmol/L Low 22-30 [facility] Comment on above: Order Comment: Speci men Type: BLOOD SPECIMENOrdering Facility: [facility] Address: [address] [place] [address] Performed By: #### 2 4323-8 ####[facility] LABORATORYCLIA [id number] [address] Creatinine [Mass/Vol] 0.97 mg/dL Normal 0.73-1.22 [facility] Comment on above: Order Comment: Speci men Type: BLOOD SPECIMENOrdering Facility: [facility] Address: [address] [place] [address] Performed By: #### 2 4323-8 ####[facility] CITYCLIA [id number] [address] Creatinine and Glomerular filtration rate.predicted panel (S/P/Bld) 78 mL/min/1.73m??? Normal >=60 [facility] Comment on above: Order Comment: Speci men Type: BLOOD SPECIMENOrdering Facility: [facility] [facility] Address: [address] [place] [address] Result Comment: Sharon mated Glomerular Filtration Rate [...] actual GFR. Performed By: #### 2 4323-8 ####[facility] LABORATORYCLIA [id number] [address] Glucose [Mass/Vol] 217 mg/dL High 74-99 [facility] Comment on above: Order Comment: Speci men Type: BLOOD SPECIMENOrdering Facility: [facility] Address: [address] [place] [address] Result Comment: The [place] [employer] (ADA) provides guidance for cutoff [...] Standards of Medical Care in Diabetes 2016, [place] [employer]. Diabetes Care. 2016.39(Suppl 1). Performed By: #### 2 4323-8 ####[facility] LABORATORYCLIA [id number] [place] [address] [place] Potassium [Moles/Vol] 4.2 mmol/L Normal 3.7-5.1 [facility] Comment on above: Order Comment: Speci men Type: BLOOD SPECIMENOrdering Facility: [facility] Address: [address] [place] [address] Performed By: #### 2 4323-8 ####[facility] LABORATORYCLIA [id number] [place] [address] [place] Protein [Mass/Vol] 6.7 g/dL Normal 6.3-8.0 [facility] Comment on above: Order Comment: Speci men Type: BLOOD SPECIMENOrdering Facility: [facility] Address: [address] [place] [address] Performed By: #### 2 4323-8 ####[facility] LABORATORYCLIA [id number] [place] [address] [place] Sodium [Moles/Vol] 136 mmol/L Normal 136-144 [facility] Comment on above: Order Comment: Speci men Type: BLOOD SPECIMENOrdering Facility: [facility] Address: [address] [place] [address] Performed By: #### 2 4323-8 ####[facility] LABORATORYCLIA [id number] [address] Urea nitrogen [Mass/Vol] 23 mg/dL Normal 9-24 [facility] Comment on above: Order Comment: Speci men Type: BLOOD SPECIMENOrdering Facility: [facility] Address: [address] [place] [address] Performed By: #### 2 4323-8 ####[facility] LABORATORYCLIA [id number] [address] [place] TYPE + SCREENon 06-02-2024 ABO group Nom (Bld) B [facility] Comment on above: Patient received O p ositive blood on 05/28/24. Blood group antibody screen Ql Negative [facility] Rh Nom (Bld) Positive [facility] Type and Screen Expiration 06/05/2024 23:59 [facility] ABO B Normal [facility] Comment on above: Order Comment: Speci men Type: BLOOD SPECIMENOrdering Facility: [facility] Address: [address] [place] [address] Result Comment: Kasia ent received O positive blood on 05/28/24. Performed By: #### T SCR ####[facility] BLOOD BANKCLIA [id number] [address] Rh Nom (Bld) Positive Normal [facility] Comment on above: Order Comment: Speci men Type: BLOOD SPECIMENOrdering Facility: [facility] Address: [address] [place] [address] Performed By: #### T SCR ####[facility] BLOOD BANKCLIA [id number] [address] TYPE AND SCREEN EXPIRATION 06/05/2024 23:59 Normal [facility] Comment on above: Order Comment: Speci men Type: BLOOD SPECIMENOrdering Facility: [facility] Address: [address] [place] [address] Performed By: #### T SCR ####[facility] BLOOD BANKCLIA [id number] [address] [place] CBC W Auto Differential pane l (Bld)on 05-25-2024 Basophils (Bld) [#/Vol] 0.04 10*3/uL Normal <0.11 [facility] Comment on above: Order Comment: Speci men Type: BLOOD SPECIMENOrdering Facility: [facility] Address: [address] [place] [address] Performed By: #### 5 7021-8 ####[facility] [place] LABCLIA [id number] [place] [facility] [place] [address] [place] Basophils/100 WBC (Bld) 0.9 % Normal [facility] Comment on above: Order Comment: Speci men Type: BLOOD SPECIMENOrdering Facility: [facility] Address: [address] [place] [address] Performed By: #### 5 7021-8 ####[facility] LABCLIA [id number] [place] [address] [place] Differential cell count method Nom (Bld) Auto Normal [facility] Comment on above: Order Comment: Speci men Type: BLOOD SPECIMENOrdering Facility: [facility] Address: [address] [place] [address] Performed By: #### 5 7021-8 ####[facility] LABCLIA [id number] [facility] [place] [address] [place] Eosinophils (Bld) [#/Vol] 10*3/uL Normal <0.46 [facility] Comment on above: Order Comment: Speci men Type: BLOOD SPECIMENOrdering Facility: [facility] Address: [address] [place] [address] Performed By: #### 5 7021-8 ####[facility] LABCLIA [id number] [place] [facility] [place] [address] [place] Eosinophils/100 WBC (Bld) 0.2 % Normal [facility] Comment on above: Order Comment: Speci men Type: BLOOD SPECIMENOrdering Facility: [facility] Address: [address] [place] [address] Performed By: #### 5 7021-8 ####[facility] LABCLIA [id number] [place] [address] [place] Erythrocyte distribution width (RBC) [Ratio] 13.7 % Normal 11.5-15.0 [facility] Comment on above: Order Comment: Speci men Type: BLOOD SPECIMENOrdering Facility: [facility] Address: [address] [place] [address] Performed By: #### 5 7021-8 ####[facility] LABCLIA [id number] [address] [facility] [place] [address] [facility] [place] Hematocrit (Bld) [Volume fraction] 19.0 % Low 39.0-51.0 [facility] Comment on above: Order Comment: Speci men Type: BLOOD SPECIMENOrdering Facility: [facility] Address: [address] [place] [address] Performed By: #### 5 7021-8 ####[facility] LABCLIA [id number] [facility] [place] [address] [place] Hemoglobin (Bld) [Mass/Vol] 6.4 g/dL Low 13.0-17.0 [facility] Comment on above: Order Comment: Speci men Type: BLOOD SPECIMENOrdering Facility: [facility] Address: [address] [place] [address] Performed By: #### 5 7021-8 ####[facility] LABCLIA [id number] [facility] [place] [address] [place] Immature granulocytes (Bld) [#/Vol] 0.03 10*3/uL Normal <0.10 [facility] Comment on above: Order Comment: Speci men Type: BLOOD SPECIMENOrdering Facility: [facility] Address: [address] [place] [address] Performed By: #### 5 7021-8 ####[facility] [place] LABCLIA [id number] [facility] [place] [address] [facility] [place] Immature granulocytes/100 WBC (Bld) 0.7 % Normal [facility] Comment on above: Order Comment: Speci men Type: BLOOD SPECIMENOrdering Facility: [facility] Address: [address] [place] [address] Performed By: #### 5 7021-8 ####[facility] [place] LABCLIA [id number] [place] [address] [place] [facility] Lymphocytes (Bld) [#/Vol] 2.26 10*3/uL Normal 1.00-4.00 [facility] Comment on above: Order Comment: Speci men Type: BLOOD SPECIMENOrdering Facility: [facility] Address: [address] [place] [address] Performed By: #### 5 7021-8 ####[facility] LABCLIA [id number] [place] [id number] [facility] Lymphocytes/100 WBC (Bld) 49.5 % Normal [facility] Comment on above: Order Comment: Speci men Type: BLOOD SPECIMENOrdering Facility: [facility] Address: [address] [place] [address] Performed By: #### 5 7021-8 ####[facility] LABCLIA [id number] [place] [address] [place] MCH (RBC) [Entitic mass] 29.6 pg Normal 26.0-34.0 [facility] Comment on above: Order Comment: Speci men Type: BLOOD SPECIMENOrdering Facility: [facility] Address: [address] [place] [address] Performed By: #### 5 7021-8 ####[facility] [place] LABCLIA [id number] [place] [address] [place] MCHC (RBC) [Mass/Vol] 33.7 g/dL Normal 30.5-36.0 [facility] Comment on above: Order Comment: Speci men Type: BLOOD SPECIMENOrdering Facility: [facility] Address: [address] [place] [address] Performed By: #### 5 7021-8 ####[facility] LABCLIA [id number] [place] [address] [place] MCV (RBC) [Entitic vol] 88.0 fL Normal 80.0-100.0 [facility] Comment on above: Order Comment: Speci men Type: BLOOD SPECIMENOrdering Facility: [facility] Address: [address] [place] [address] Performed By: #### 5 7021-8 ####[facility] LABCLIA [id number] [place] [address] [place] Monocytes (Bld) [#/Vol] 0.46 10*3/uL Normal <0.87 [facility] Comment on above: Order Comment: Speci men Type: BLOOD SPECIMENOrdering Facility: [facility] Address: [address] [place] [address] Performed By: #### 5 7021-8 ####[facility] LABCLIA [id number] [place] [address] [place] Monocytes/100 WBC (Bld) 10.1 % Normal [facility] Comment on above: Order Comment: Speci men Type: BLOOD SPECIMENOrdering Facility: [facility] Address: [address] [place] [address] Performed By: #### 5 7021-8 ####[facility] LABCLIA [id number] [place] [address] [place] Neutrophils (Bld) [#/Vol] 1.77 10*3/uL Normal 1.45-7.50 [facility] Comment on above: Order Comment: Speci men Type: BLOOD SPECIMENOrdering Facility: [facility] Address: [address] [place] [address] Performed By: #### 5 7021-8 ####[facility] LABCLIA [id number] [place] [address] [place] Neutrophils/100 WBC (Bld) 38.6 % Normal [facility] Comment on above: Order Comment: Speci men Type: BLOOD SPECIMENOrdering Facility: [facility] Address: [address] [place] [address] Performed By: #### 5 7021-8 ####[facility] [place] LABCLIA [id number] [place] [address] [place] Nucleated RBC (Bld) [#/Vol] Normal [facility] Comment on above: Order Comment: Speci men Type: BLOOD SPECIMENOrdering Facility: [facility] Address: [address] [place] [address] Performed By: #### 5 7021-8 ####[facility] [place] LABCLIA [id number] [place] [address] [place] Nucleated RBC/100 WBC (Bld) [Ratio] Normal [facility] Comment on above: Order Comment: Speci men Type: BLOOD SPECIMENOrdering Facility: [facility] Address: [address] [place] [address] Performed By: #### 5 7021-8 ####[facility] LABCLIA [id number] [place] [address] [place] Platelet mean volume (Bld) [Entitic vol] 12.4 fL Normal 9.0-12.7 [facility] Comment on above: Order Comment: Speci men Type: BLOOD SPECIMENOrdering Facility: [facility] Address: [address] [place] [address] Performed By: #### 5 7021-8 ####[facility] LABCLIA [id number] [place] [address] [place] Platelets (Bld) [#/Vol] 67 10*3/uL Low 150-400 [facility] Comment on above: Order Comment: Speci men Type: BLOOD SPECIMENOrdering Facility: [facility] Address: [address] [place] [address] Result Comment: No c lot detected. Performed By: #### 5 7021-8 ####[facility] [place] LABCLIA [id number] [place] [address] [place] RBC (Bld) [#/Vol] 2.16 10*6/uL Low 4.20-6.00 [facility] Comment on above: Order Comment: Speci men Type: BLOOD SPECIMENOrdering Facility: [facility] Address: [address] [place] [address] Performed By: #### 5 7021-8 ####[facility] LABCLIA [id number] [address] WBC (Bld) [#/Vol] 4.57 10*3/uL Normal 3.70-11.00 [facility] Comment on above: Order Comment: Speci men Type: BLOOD SPECIMENOrdering Facility: [facility] Address: [address] [place] [address] Performed By: #### 5 7021-8 ####[facility] LABCLIA [id number] [address] TYPE + SCREENon 05-25-2024 ABO B Normal [facility] Comment on above: Order Comment: Speci men Type: BLOOD SPECIMENOrdering Facility: [facility] Address: [address] [place] [address] Performed By: #### T SCR ####[facility] BLOOD BANKCLIA [id number] [address] Rh Nom (Bld) Positive Normal [facility] Comment on above: Order Comment: Speci men Type: BLOOD SPECIMENOrdering Facility: [facility] Address: [address] [place] [address] Performed By: #### T SCR ####[facility] BLOOD BANKCLIA [id number] [address] TYPE AND SCREEN EXPIRATION 05/28/2024 23:59 Normal [facility] Comment on above: Order Comment: Speci men Type: BLOOD SPECIMENOrdering Facility: [facility] Address: [address] [place] [address] Performed By: #### T SCR ####[facility] BLOOD BANKCLIA [id number] [address] CBC W Auto Differential pane l (Bld)on 05-20-2024 Basophils (Bld) [#/Vol] 0.03 10*3/uL Normal <0.11 [facility] Comment on above: Order Comment: Speci men Type: BLOOD SPECIMENOrdering Facility: [facility] Address: [address] [place] [address] Performed By: #### 5 7021-8 ####[facility] LABCLIA [id number] [place] [address] [place] Basophils/100 WBC (Bld) 0.5 % Normal [facility] Comment on above: Order Comment: Speci men Type: BLOOD SPECIMENOrdering Facility: [facility] Address: [address] [place] [address] Performed By: #### 5 7021-8 ####[facility] LABCLIA [id number] [facility] [place] [address] [place] Differential cell count method Nom (Bld) Auto Normal [facility] Comment on above: Order Comment: Speci men Type: BLOOD SPECIMENOrdering Facility: [facility] Address: [address] [place] [address] Performed By: #### 5 7021-8 ####[facility] [place] LABCLIA [id number] [place] [address] [place] Eosinophils (Bld) [#/Vol] 0.03 10*3/uL Normal <0.46 [facility] Comment on above: Order Comment: Speci men Type: BLOOD SPECIMENOrdering Facility: [facility] Address: [address] [place] [address] Performed By: #### 5 7021-8 ####[facility] LABCLIA [id number] [facility] [place] [address] [place] Eosinophils/100 WBC (Bld) 0.5 % Normal [facility] Comment on above: Order Comment: Speci men Type: BLOOD SPECIMENOrdering Facility: [facility] Address: [address] [place] [address] Performed By: #### 5 7021-8 ####[facility] LABCLIA [id number] [place] [address] [place] Erythrocyte distribution width (RBC) [Ratio] 13.5 % Normal 11.5-15.0 [facility] Comment on above: Order Comment: Speci men Type: BLOOD SPECIMENOrdering Facility: [facility] Address: [address] [place] [address] Performed By: #### 5 7021-8 ####[facility] LABCLIA [id number] [facility] [place] [address] [place] Hematocrit (Bld) [Volume fraction] 20.8 % Low 39.0-51.0 [facility] Comment on above: Order Comment: Speci men Type: BLOOD SPECIMENOrdering Facility: [facility] Address: [address] [place] [address] Performed By: #### 5 7021-8 ####[facility] LABCLIA [id number] [facility] [place] [address] [place] Hemoglobin (Bld) [Mass/Vol] 7.1 g/dL Low 13.0-17.0 [facility] Comment on above: Order Comment: Speci men Type: BLOOD SPECIMENOrdering Facility: [facility] Address: [address] [place] [address] Performed By: #### 5 7021-8 ####[facility] [place] LABCLIA [id number] [facility] [place] [address] [place] Immature granulocytes (Bld) [#/Vol] 0.04 10*3/uL Normal <0.10 [facility] Comment on above: Order Comment: Speci men Type: BLOOD SPECIMENOrdering Facility: [facility] Address: [address] [place] [address] Performed By: #### 5 7021-8 ####[facility] LABCLIA [id number] [facility] [place] [address] [facility] [place] Immature granulocytes/100 WBC (Bld) 0.7 % Normal [facility] Comment on above: Order Comment: Speci men Type: BLOOD SPECIMENOrdering Facility: [facility] Address: [address] [place] [address] Performed By: #### 5 7021-8 ####[facility] [place] LABCLIA [id number] [place] [address] [place] [facility] Lymphocytes (Bld) [#/Vol] 2.27 10*3/uL Normal 1.00-4.00 [facility] Comment on above: Order Comment: Speci men Type: BLOOD SPECIMENOrdering Facility: [facility] Address: [address] [place] [address] Performed By: #### 5 7021-8 ####[facility] [place] LABCLIA [id number] [place] [id number] [facility] Lymphocytes/100 WBC (Bld) 39.5 % Normal [facility] Comment on above: Order Comment: Speci men Type: BLOOD SPECIMENOrdering Facility: [facility] Address: [address] [place] [address] Performed By: #### 5 7021-8 ####[facility] LABCLIA [id number] [place] [address] [place] MCH (RBC) [Entitic mass] 29.5 pg Normal 26.0-34.0 [facility] Comment on above: Order Comment: Speci men Type: BLOOD SPECIMENOrdering Facility: [facility] Address: [address] [place] [address] Performed By: #### 5 7021-8 ####[facility] [place] LABCLIA [id number] [place] [address] [place] MCHC (RBC) [Mass/Vol] 34.1 g/dL Normal 30.5-36.0 [facility] Comment on above: Order Comment: Speci men Type: BLOOD SPECIMENOrdering Facility: [facility] Address: [address] [place] [address] Performed By: #### 5 7021-8 ####[facility] [place] LABCLIA [id number] [place] [address] [place] MCV (RBC) [Entitic vol] 86.3 fL Normal 80.0-100.0 [facility] Comment on above: Order Comment: Speci men Type: BLOOD SPECIMENOrdering Facility: [facility] Address: [address] [place] [address] Performed By: #### 5 7021-8 ####[facility] [place] LABCLIA [id number] [place] [address] [place] Monocytes (Bld) [#/Vol] 0.45 10*3/uL Normal <0.87 [facility] Comment on above: Order Comment: Speci men Type: BLOOD SPECIMENOrdering Facility: [facility] Address: [address] [place] [address] Performed By: #### 5 7021-8 ####[facility] [place] LABCLIA [id number] [place] [address] [facility] [place] Monocytes/100 WBC (Bld) 7.8 % Normal [facility] Comment on above: Order Comment: Speci men Type: BLOOD SPECIMENOrdering Facility: [facility] Address: [address] [place] [address] Performed By: #### 5 7021-8 ####[facility] [place] LABCLIA [id number] [place] [address] [place] Neutrophils (Bld) [#/Vol] 2.93 10*3/uL Normal 1.45-7.50 [facility] Comment on above: Order Comment: Speci men Type: BLOOD SPECIMENOrdering Facility: [facility] Address: [address] [place] [address] Performed By: #### 5 7021-8 ####[facility] [place] LABCLIA [id number] [place] [address] [place] Neutrophils/100 WBC (Bld) 51.0 % Normal [facility] Comment on above: Order Comment: Speci men Type: BLOOD SPECIMENOrdering Facility: [facility] Address: [address] [place] [address] Performed By: #### 5 7021-8 ####[facility] [place] LABCLIA [id number] [place] [address] [place] Nucleated RBC (Bld) [#/Vol] Normal [facility] Comment on above: Order Comment: Speci men Type: BLOOD SPECIMENOrdering Facility: [facility] Address: [address] [place] [address] Performed By: #### 5 7021-8 ####[facility] [place] LABCLIA [id number] [place] [facility] [place] [address] [place] Nucleated RBC/100 WBC (Bld) [Ratio] Normal [facility] Comment on above: Order Comment: Speci men Type: BLOOD SPECIMENOrdering Facility: [facility] Address: [address] [place] [address] Performed By: #### 5 7021-8 ####[facility] LABCLIA [id number] [facility] [place] [address] [place] Platelet mean volume (Bld) [Entitic vol] 11.7 fL Normal 9.0-12.7 [facility] Comment on above: Order Comment: Speci men Type: BLOOD SPECIMENOrdering Facility: [facility] Address: [address] [place] [address] Performed By: #### 5 7021-8 ####[facility] [place] LABCLIA [id number] [facility] [place] [address] [place] Platelets (Bld) [#/Vol] 46 10*3/uL Low 150-400 [facility] Comment on above: Order Comment: Speci men Type: BLOOD SPECIMENOrdering Facility: [facility] Address: [address] [place] [address] Result Comment: No c lot detected.Platelet count confirmed by manual review of peripheral blood smear. Performed By: #### 5 7021-8 ####[facility] LABCLIA [id number] [place] [address] [place] RBC (Bld) [#/Vol] 2.41 10*6/uL Low 4.20-6.00 [facility] Comment on above: Order Comment: Speci men Type: BLOOD SPECIMENOrdering Facility: [facility] Address: [address] [place] [address] Performed By: #### 5 7021-8 ####[facility] LABCLIA [id number] [place] [address] [facility] WBC (Bld) [#/Vol] 5.75 10*3/uL Normal 3.70-11.00 [facility] Comment on above: Order Comment: Speci men Type: BLOOD SPECIMENOrdering Facility: [facility] Address: [address] [place] [address] Performed By: #### 5 7021-8 ####[facility] LABCLIA [id number] [place] [address] [facility] Comprehensive metabolic 2000 panelon 05-20-2024 Albumin [Mass/Vol] 3.8 g/dL Low 3.9-4.9 [facility] Comment on above: Order Comment: Speci men Type: BLOOD SPECIMENOrdering Facility: [facility] Address: [address] [place] [address] Performed By: #### 2 4323-8 ####[facility] LABCLIA [id number] [place] [address] [facility] ALP [Catalytic activity/Vol] 92 U/L Normal 38-113 [facility] Comment on above: Order Comment: Speci men Type: BLOOD SPECIMENOrdering Facility: [facility] Address: [address] [place] [address] Performed By: #### 2 4323-8 ####[facility] LABCLIA [id number] [place] [address] [facility] ALT With P-5'-P [Catalytic activity/Vol] 16 U/L Normal 10-54 [facility] Comment on above: Order Comment: Speci men Type: BLOOD SPECIMENOrdering Facility: [facility] Address: [address] [place] [address] Performed By: #### 2 4323-8 ####[facility] [place] LABCLIA [id number] [place] [address] [place] Anion gap [Moles/Vol] 17 mmol/L High 8-15 [facility] Comment on above: Order Comment: Speci men Type: BLOOD SPECIMENOrdering Facility: [facility] Address: [address] [place] [address] Performed By: #### 2 4323-8 ####[facility] [place] LABCLIA [id number] [place] [address] [place] AST With P-5'-P [Catalytic activity/Vol] 20 U/L Normal 14-40 [facility] Comment on above: Order Comment: Speci men Type: BLOOD SPECIMENOrdering Facility: [facility] Address: [address] [place] [address] Performed By: #### 2 4323-8 ####[facility] [place] LABCLIA [id number] [place] [address] [place] Bilirubin [Mass/Vol] 0.2 mg/dL Normal 0.2-1.3 [facility] Comment on above: Order Comment: Speci men Type: BLOOD SPECIMENOrdering Facility: [facility] Address: [address] [place] [address] Performed By: #### 2 4323-8 ####[facility] [place] LABCLIA [id number] [facility] [place] [address] [place] Calcium [Mass/Vol] 9.6 mg/dL Normal 8.5-10.2 [facility] Comment on above: Order Comment: Speci men Type: BLOOD SPECIMENOrdering Facility: [facility] Address: [address] [place] [address] Performed By: #### 2 4323-8 ####[facility] [place] LABCLIA [id number] [place] [address] [place] Chloride [Moles/Vol] 103 mmol/L Normal 98-107 [facility] Comment on above: Order Comment: Speci men Type: BLOOD SPECIMENOrdering Facility: [facility] Address: [address] [place] [address] Performed By: #### 2 4323-8 ####[facility] LABCLIA [id number] [place] [address] [place] CO2 [Moles/Vol] 18 mmol/L Low 22-30 [facility] Comment on above: Order Comment: Speci men Type: BLOOD SPECIMENOrdering Facility: [facility] Address: [address] [place] [address] Performed By: #### 2 4323-8 ####[facility] LABCLIA [id number] [place] [address] [place] Creatinine [Mass/Vol] 1.08 mg/dL Normal 0.73-1.22 [facility] Comment on above: Order Comment: Speci men Type: BLOOD SPECIMENOrdering Facility: [facility] Address: [address] [place] [address] Performed By: #### 2 4323-8 ####[facility] LABCLIA [id number] [place] [address] [place] Creatinine and Glomerular filtration rate.predicted panel (S/P/Bld) 69 mL/min/1.73m??? Normal >=60 [facility] Comment on above: Order Comment: Speci men Type: BLOOD SPECIMENOrdering Facility: [facility] Address: [address] [place] [address] Result Comment: Sharon mated Glomerular Filtration Rate [...] actual GFR. Performed By: #### 2 4323-8 ####[facility] [place] LABCLIA [id number] [place] [address] [place] Glucose [Mass/Vol] 191 mg/dL High 74-99 [facility] Comment on above: Order Comment: Mathew lindsey Type: BLOOD SPECIMENOrdering Facility: [facility] Address: [address] [place], [place] [address] Result Comment: The [place] Diabetes Association (ADA) provides guidance for cutoff [...] Standards of Medical Care in Diabetes 2016, [place] [employer]. Diabetes Care. 2016.39(Suppl 1). Performed By: #### 2 4323-8 ####[facility] LABCLIA [id number] [place] [address] [place] Potassium [Moles/Vol] 4.5 mmol/L Normal 3.7-5.1 [facility] Comment on above: Order Comment: Mathew lindsey Type: BLOOD SPECIMENOrdering Facility: [facility] Address: [address] [place], [place] [address] Performed By: #### 2 4323-8 ####[facility] [place] LABCLIA [id number] [place] [address] [place] Protein [Mass/Vol] 7.2 g/dL Normal 6.3-8.0 [facility] Comment on above: Order Comment: Mathew portillo Type: BLOOD SPECIMENOrdering Facility: [facility] Address: [address] [place] [address] Performed By: #### 2 4323-8 ####[facility] [place] LABCLIA [id number] [place] [address] [place] Sodium [Moles/Vol] 138 mmol/L Normal 136-144 [facility] Comment on above: Order Comment: Speci men Type: BLOOD SPECIMENOrdering Facility: [facility] Address: [address] [place] [address] Performed By: #### 2 4323-8 ####[facility] [place] LABCLIA [id number] [place] [address] [place] Urea nitrogen [Mass/Vol] 26 mg/dL High 9-24 [facility] Comment on above: Order Comment: Speci men Type: BLOOD SPECIMENOrdering Facility: [facility] Address: [address] [place] [address] Performed By: #### 2 4323-8 ####[facility] [place] LABCLIA [id number] [place] [address] [place] TYPE + SCREENon 05-20-2024 ABO B Normal [facility] Comment on above: Order Comment: Speci men Type: BLOOD SPECIMENOrdering Facility: [facility] Address: [address] [place] [address] Performed By: #### T SCR ####[facility] BLOOD BANKCLIA [id number] [address] [place] Rh Nom (Bld) Positive Normal [facility] Comment on above: Order Comment: Speci men Type: BLOOD SPECIMENOrdering Facility: [facility] Address: [address] [place] [address] Performed By: #### T SCR ####[facility] BLOOD BANKCLIA [id number] [address] OF [place] TYPE AND SCREEN EXPIRATION 05/23/2024 23:59 Normal [facility] Comment on above: Order Comment: Speci men Type: BLOOD SPECIMENOrdering Facility: [facility] Address: [address] [place] [address] Performed By: #### T SCR ####[facility] BLOOD BANKCLIA [id number] [address] [place] CBC W Auto Differential pane l (Bld)on 05-05-2024 Basophils (Bld) [#/Vol] NINF [facility] Basophils/100 WBC (Bld) 0.4 % [facility] Differential cell count method Nom (Bld) Auto [facility] Eosinophils (Bld) [#/Vol] [facility] Eosinophils/100 WBC (Bld) 0.4 % [facility] Erythrocyte distribution width (RBC) [Ratio] 14.4 % 11.5 - 15.0 % [facility] Hematocrit (Bld) [Volume fraction] 18.5 % Low 39.0 - 51.0 % [facility] Hemoglobin (Bld) [Mass/Vol] 6.4 g/dL Low 13.0 - 17.0 g/dL [facility] Immature granulocytes (Bld) [#/Vol] [facility] Immature granulocytes/100 WBC (Bld) 0.4 % [facility] Interpretation and review of laboratory results Abnormal [facility] Lymphocytes (Bld) [#/Vol] 1.8 10*3/uL [facility] Lymphocytes/100 WBC (Bld) 36.4 % [facility] MCH (RBC) [Entitic mass] 29.4 pg 26.0 - 34.0 pg [facility] MCHC (RBC) [Mass/Vol] 34.6 g/dL 30.5 - 36.0 g/dL [facility] MCV (RBC) [Entitic vol] 84.9 fL 80.0 - 100.0 fL [facility] Monocytes (Bld) [#/Vol] 0.24 10*3/uL [facility] Monocytes/100 WBC (Bld) 4.9 % [facility] Neutrophils (Bld) [#/Vol] 2.84 10*3/uL [facility] Neutrophils/100 WBC (Bld) 57.5 % [facility] Nucleated RBC (Bld) [#/Vol] 0.02 10*3/uL High [facility] Nucleated RBC/100 WBC (Bld) [Ratio] 0.4 % /100 WBC [facility] Platelet mean volume (Bld) [Entitic vol] 11.7 fL 9.0 - 12.7 fL [facility] Platelets (Bld) [#/Vol] 53 10*3/uL Low [facility] Comment on above: No clot detected. RBC (Bld) [#/Vol] 2.18 10*6/uL Low 4.20 - 6.0 0 m/uL [facility] WBC (Bld) [#/Vol] 4.94 10*3/uL [facility] Basophils (Bld) [#/Vol] 10*3/uL Normal <0.11 [facility] Comment on above: Order Comment: Speci men Type: BLOOD SPECIMENOrdering Facility: [facility] Address: [address] [place] [address] Performed By: #### 5 7021-8 ####[facility]ATORYCLIA [id number] [place] [address] [place] Basophils/100 WBC (Bld) 0.4 % Normal [facility] Comment on above: Order Comment: Speci men Type: BLOOD SPECIMENOrdering Facility: [facility] Address: [address] [place] [address] Performed By: #### 5 7021-8 ####[facility]ATORYCLIA [id number] [address] [place] Differential cell count method Nom (Bld) Auto Normal [facility] Comment on above: Order Comment: Speci men Type: BLOOD SPECIMENOrdering Facility: [facility] Address: [address] [place] [address] Performed By: #### 5 7021-8 ####[facility]ORATORYCLIA [id number] [place] [address] [place] Eosinophils (Bld) [#/Vol] 10*3/uL Normal <0.46 [facility] Comment on above: Order Comment: Speci men Type: BLOOD SPECIMENOrdering Facility: [facility] Address: [address] [place] [address] Performed By: #### 5 7021-8 ####[facility]ORATORYCLIA [id number] [place] [address] [place] Eosinophils/100 WBC (Bld) 0.4 % Normal [facility] Comment on above: Order Comment: Speci men Type: BLOOD SPECIMENOrdering Facility: [facility] Address: [address] [place] [address] Performed By: #### 5 7021-8 ####[facility]ORATORYCLIA [id number] [address] Erythrocyte distribution width (RBC) [Ratio] 14.4 % Normal 11.5-15.0 [facility] Comment on above: Order Comment: Speci men Type: BLOOD SPECIMENOrdering Facility: [facility] Address: [address] [place] [address] Performed By: #### 5 7021-8 ####[facility] LABORATORYCLIA [id number] [address] [place] Hematocrit (Bld) [Volume fraction] 18.5 % Low 39.0-51.0 [facility] Comment on above: Order Comment: Speci men Type: BLOOD SPECIMENOrdering Facility: [facility] Address: [address] [place] [address] Performed By: #### 5 7021-8 ####[facility] LABORATORYCLIA [id number] [address] [place] Hemoglobin (Bld) [Mass/Vol] 6.4 g/dL Low 13.0-17.0 [facility] Comment on above: Order Comment: Speci men Type: BLOOD SPECIMENOrdering Facility: [facility] Address: [address] [place] [address] Performed By: #### 5 7021-8 ####[facility] LABORATORYCLIA [id number] [address] [place] Immature granulocytes (Bld) [#/Vol] 10*3/uL Normal <0.10 [facility] Comment on above: Order Comment: Speci men Type: BLOOD SPECIMENOrdering Facility: [facility] Address: [address] [place] [address] Performed By: #### 5 7021-8 ####[facility] LABORATORYCLIA [id number] [address] Immature granulocytes/100 WBC (Bld) 0.4 % Normal [facility] Comment on above: Order Comment: Speci men Type: BLOOD SPECIMENOrdering Facility: [facility] Address: [address] [place] [address] Performed By: #### 5 7021-8 ####[facility] LABORATORYCLIA [id number] [address] Lymphocytes (Bld) [#/Vol] 1.80 10*3/uL Normal 1.00-4.00 [facility] Comment on above: Order Comment: Speci men Type: BLOOD SPECIMENOrdering Facility: [facility] Address: [address] [place] [address] Performed By: #### 5 7021-8 ####[facility] LABORATORYCLIA [id number] [address] Lymphocytes/100 WBC (Bld) 36.4 % Normal [facility] Comment on above: Order Comment: Speci men Type: BLOOD SPECIMENOrdering Facility: [facility] Address: [address] [place] [address] Performed By: #### 5 7021-8 ####[facility] LABORATORYCLIA [id number] [address] STATES [facility] MCH (RBC) [Entitic mass] 29.4 pg Normal 26.0-34.0 [facility] Comment on above: Order Comment: Speci men Type: BLOOD SPECIMENOrdering Facility: [facility] Address: [address] [place] [address] Performed By: #### 5 7021-8 ####[facility] LABORATORYCLIA [id number] [address] [place] MCHC (RBC) [Mass/Vol] 34.6 g/dL Normal 30.5-36.0 [facility] Comment on above: Order Comment: Speci men Type: BLOOD SPECIMENOrdering Facility: [facility] Address: [address] [place] [address] Performed By: #### 5 7021-8 ####[facility] LABORATORYCLIA [id number] [address] OF [facility] MCV (RBC) [Entitic vol] 84.9 fL Normal 80.0-100.0 [facility] Comment on above: Order Comment: Speci men Type: BLOOD SPECIMENOrdering Facility: [facility] Address: [address] [place] [address] Performed By: #### 5 7021-8 ####[facility] LABORATORYCLIA [id number] [address] [place] Monocytes (Bld) [#/Vol] 0.24 10*3/uL Normal <0.87 [facility] Comment on above: Order Comment: Speci men Type: BLOOD SPECIMENOrdering Facility: [facility] Address: [address] [place] [address] Performed By: #### 5 7021-8 ####[facility] LABORATORYCLIA [id number] [address] [place] Monocytes/100 WBC (Bld) 4.9 % Normal [facility] Comment on above: Order Comment: Speci men Type: BLOOD SPECIMENOrdering Facility: [facility] Address: [address] [place] [address] Performed By: #### 5 7021-8 ####[facility]ORATORYCLIA [id number] [place] [address] [place] Neutrophils (Bld) [#/Vol] 2.84 10*3/uL Normal 1.45-7.50 [facility] Comment on above: Order Comment: Speci men Type: BLOOD SPECIMENOrdering Facility: [facility] Address: [address] [place] [address] Performed By: #### 5 7021-8 ####[facility]ORATORYCLIA [id number] [address] [place] Neutrophils/100 WBC (Bld) 57.5 % Normal [facility] Comment on above: Order Comment: Speci men Type: BLOOD SPECIMENOrdering Facility: [facility] Address: [address] [place] [address] Performed By: #### 5 7021-8 ####[facility]ORATORYCLIA [id number] [place] [address] [place] Nucleated RBC (Bld) [#/Vol] 0.02 10*3/uL High <0.01 [facility] Comment on above: Order Comment: Speci men Type: BLOOD SPECIMENOrdering Facility: [facility] Address: [address] [place] [address] Performed By: #### 5 7021-8 ####[facility] LABORATORYCLIA [id number] [address] STATES OF [facility] Nucleated RBC/100 WBC (Bld) [Ratio] 0.4 /100 WBC Normal [facility] Comment on above: Order Comment: Speci men Type: BLOOD SPECIMENOrdering Facility: [facility] Address: [address] [place] [address] Performed By: #### 5 7021-8 ####[facility] LABORATORYCLIA [id number] [address] [place] Platelet mean volume (Bld) [Entitic vol] 11.7 fL Normal 9.0-12.7 [facility] Comment on above: Order Comment: Speci men Type: BLOOD SPECIMENOrdering Facility: [facility] Address: [address] [place] [address] Performed By: #### 5 7021-8 ####[facility] LABORATORYCLIA [id number] [address] [place] Platelets (Bld) [#/Vol] 53 10*3/uL Low 150-400 [facility] Comment on above: Order Comment: Speci men Type: BLOOD SPECIMENOrdering Facility: [facility] Address: [address] [place] [address] Result Comment: No c lot detected. Performed By: #### 5 7021-8 ####[facility] LABORATORYCLIA [id number] [address] [place] RBC (Bld) [#/Vol] 2.18 10*6/uL Low 4.20-6.00 [facility] Comment on above: Order Comment: Speci men Type: BLOOD SPECIMENOrdering Facility: [facility] Address: [address] [place] [address] Performed By: #### 5 7021-8 ####[facility] LABORATORYCLIA [id number] [place] [address] [place] WBC (Bld) [#/Vol] 4.94 10*3/uL Normal 3.70-11.00 [facility] Comment on above: Order Comment: Speci men Type: BLOOD SPECIMENOrdering Facility: [facility] Address: [facility] [place] [address] Performed By: #### 5 7021-8 ####[facility] LABORATORYCLIA [id number] [place] [address] [place] CNOVSPon 05-05-2024 CNOVSP Normal [facility] Comprehensive metabolic 2000 panelon 05-05-2024 Albumin [Mass/Vol] 3.7 g/dL Low 3.9 - 4.9 g/dL [facility] ALP [Catalytic activity/Vol] 91 U/L 38 - 113 U/L [facility] ALT With P-5'-P [Catalytic activity/Vol] 15 U/L 10 - 54 U/L [facility] Anion gap [Moles/Vol] 15 mmol/L 8 - 15 mmol/L [facility] AST With P-5'-P [Catalytic activity/Vol] 19 U/L 14 - 40 U/L [facility] Bilirubin [Mass/Vol] 0.2 mg/dL 0.2 - 1.3 mg/dL [facility] Calcium [Mass/Vol] 9.2 mg/dL 8.5 - 10. 2 mg/dL [facility] Chloride [Moles/Vol] 103 mmol/L 98 - 107 mmol/L [facility] CO2 [Moles/Vol] 18 mmol/L Low 22 - 30 mmol/L [facility] Creatinine [Mass/Vol] 0.97 mg/dL 0.73 - 1.22 mg/dL [facility] GFR/1.73 sq M.predicted among non-blacks MDRD (S/P/Bld) [Vol rate/Area] 79 mL/min/{1.73_m2} - PINF [facility] Comment on above: Estimated Glomerular Filtration Rate [...] 264 mg/dL High 74 - 99 mg/dL [facility] Comment on above: The [place] Di[employer] Association (ADA) provides guidance for [...] Standards of Medical Care in Diabetes 2016, [place] [employer]. Diabetes Care. 2016.39(Suppl 1). Interpretation and review of laboratory results Abnormal [facility] Potassium [Moles/Vol] 4.4 mmol/L 3.7 - 5.1 mmol/L [facility] Protein [Mass/Vol] 6.6 g/dL 6.3 - 8.0 g/dL [facility] Sodium [Moles/Vol] 136 mmol/L 136 - 144 mmol/L [facility] Urea nitrogen [Mass/Vol] 22 mg/dL 9 - 24 mg/dL [facility] Albumin [Mass/Vol] 3.7 g/dL Low 3.9-4.9 [facility] Comment on above: Order Comment: Speci lindsey Type: BLOOD SPECIMENOrdering Facility: [facility] Address: [address] [place] [address] Performed By: #### 2 4323-8 ####[facility] LABORATORYCLIA [id number] [place] [address] [place] ALP [Catalytic activity/Vol] 91 U/L Normal 38-113 [facility] Comment on above: Order Comment: Mathew portillo Type: BLOOD SPECIMENOrdering Facility: [facility] Address: [address] [place] [address] Performed By: #### 2 4323-8 ####[facility]ORATORYCLIA [id number] [place] [address] [place] ALT With P-5'-P [Catalytic activity/Vol] 15 U/L Normal 10-54 [facility] Comment on above: Order Comment: Speci men Type: BLOOD SPECIMENOrdering Facility: [facility] Address: [address] [place] [address] Performed By: #### 2 4323-8 ####[facility]ORATORYCLIA [id number] [place] [address] [place] Anion gap [Moles/Vol] 15 mmol/L Normal 8-15 [facility] Comment on above: Order Comment: Speci men Type: BLOOD SPECIMENOrdering Facility: [facility] Address: [address] [place] [address] Performed By: #### 2 4323-8 ####[facility]ORATORYCLIA [id number] [address] [place] AST With P-5'-P [Catalytic activity/Vol] 19 U/L Normal 14-40 [facility] Comment on above: Order Comment: Speci men Type: BLOOD SPECIMENOrdering Facility: [facility] Address: [address] [place] [address] Performed By: #### 2 4323-8 ####[facility]ATORYCLIA [id number] [place] [address] [place] Bilirubin [Mass/Vol] 0.2 mg/dL Normal 0.2-1.3 [facility] Comment on above: Order Comment: Speci men Type: BLOOD SPECIMENOrdering Facility: [facility] Address: [address] [place] [address] Performed By: #### 2 4323-8 ####[facility] LABORATORYCLIA [id number] [address] [place] Calcium [Mass/Vol] 9.2 mg/dL Normal 8.5-10.2 [facility] Comment on above: Order Comment: Speci men Type: BLOOD SPECIMENOrdering Facility: [facility] Address: [address] [place] [address] Performed By: #### 2 4323-8 ####[facility] LABORATORYCLIA [id number] [place] [address] [place] Chloride [Moles/Vol] 103 mmol/L Normal 98-107 [facility] Comment on above: Order Comment: Speci men Type: BLOOD SPECIMENOrdering Facility: [facility] Address: [address] [place] [address] Performed By: #### 2 4323-8 ####[facility] LABORATORYCLIA [id number] [place] [address] [place] CO2 [Moles/Vol] 18 mmol/L Low 22-30 [facility] Comment on above: Order Comment: Speci men Type: BLOOD SPECIMENOrdering Facility: [facility] Address: [address] [place] [address] Performed By: #### 2 4323-8 ####[facility] LABORATORYCLIA [id number] [address] [place] Creatinine [Mass/Vol] 0.97 mg/dL Normal 0.73-1.22 [facility] Comment on above: Order Comment: Speci men Type: BLOOD SPECIMENOrdering Facility: [facility] Address: [address] [place] [address] Performed By: #### 2 4323-8 ####[facility] LABORATORYCLIA [id number] [address] Creatinine and Glomerular filtration rate.predicted panel (S/P/Bld) 79 mL/min/1.73m??? Normal >=60 [facility] Comment on above: Order Comment: Speci men Type: BLOOD SPECIMENOrdering Facility: [facility] Address: [address] [place] [address] Result Comment: Sharon mated Glomerular Filtration Rate [...] actual GFR. Performed By: #### 2 4323-8 ####[facility] LABORATORYCLIA [id number] [place] [address] [place] Glucose [Mass/Vol] 264 mg/dL High 74-99 [facility] Comment on above: Order Comment: Mathew portillo Type: BLOOD SPECIMENOrdering Facility: [facility] Address: [address] [place] [address] Result Comment: The [place] Diabetes Association (ADA) provides guidance for cutoff [...] Standards of Medical Care in Diabetes 2016, [place] [employer]. Diabetes Care. 2016.39(Suppl 1). Performed By: #### 2 4323-8 ####[facility] LABORATORYCLIA [id number] [place] [address] [place] Potassium [Moles/Vol] 4.4 mmol/L Normal 3.7-5.1 [facility] Comment on above: Order Comment: Mathew portillo Type: BLOOD SPECIMENOrdering Facility: [facility] Address: [address] [place] [address] Performed By: #### 2 4323-8 ####[facility] LABORATORYCLIA [id number] [place] [address] [place] Protein [Mass/Vol] 6.6 g/dL Normal 6.3-8.0 [facility] Comment on above: Order Comment: Mathew portillo Type: BLOOD SPECIMENOrdering Facility: [facility] Address: [address] [place] [address] Performed By: #### 2 4323-8 ####[facility] LABORATORYCLIA [id number] [place] [address] [place] Sodium [Moles/Vol] 136 mmol/L Normal 136-144 [facility] Comment on above: Order Comment: Speci men Type: BLOOD SPECIMENOrdering Facility: [facility] Address: [address] [place] [address] Performed By: #### 2 4323-8 ####[facility] LABORATORYCLIA [id number] [place] [address] [place] Urea nitrogen [Mass/Vol] 22 mg/dL Normal 9-24 [facility] Comment on above: Order Comment: Speci men Type: BLOOD SPECIMENOrdering Facility: [facility] Address: [address] [place] [address] Performed By: #### 2 4323-8 ####[facility] LABORATORYCLIA [id number] [address] [place] TYPE + SCREENon 05-05-2024 ABO group Nom (Bld) B [facility] Blood group antibody screen Ql Negative [facility] Rh Nom (Bld) Positive [facility] Type and Screen Expiration 05/08/2024 23:59 [facility] ABO B Normal [facility] Comment on above: Order Comment: Speci men Type: BLOOD SPECIMENOrdering Facility: [facility] Address: [address] [place] [address] Performed By: #### T SCR ####[facility] BLOOD BANKCLIA [id number] [address] [place] Rh Nom (Bld) Positive Normal [facility] Comment on above: Order Comment: Speci men Type: BLOOD SPECIMENOrdering Facility: [facility] Address: [address] [place] [address] Performed By: #### T SCR ####[facility] BLOOD BANKCLIA [id number] [address] [place] TYPE AND SCREEN EXPIRATION 05/08/2024 23:59 Normal [facility] Comment on above: Order Comment: Speci men Type: BLOOD SPECIMENOrdering Facility: [facility] Address: [address] [place] [address] Performed By: #### T SCR ####[facility] BLOOD BANKCLIA [id number] [address] STATES [facility] CBC W Auto Differential pane l (Bld)on 04-27-2024 Basophils (Bld) [#/Vol] 0.04 10*3/uL Normal <0.11 [facility] Comment on above: Order Comment: Speci men Type: BLOOD SPECIMENOrdering Facility: [facility] Address: [address] [place] [address] Performed By: #### 5 7021-8 ####[facility] [place] LABCLIA [id number] [address] Basophils/100 WBC (Bld) 0.6 % Normal [facility] Comment on above: Order Comment: Speci men Type: BLOOD SPECIMENOrdering Facility: [facility] Address: [address] [place] [address] Performed By: #### 5 7021-8 ####[facility] LABCLIA [id number] [address] Differential cell count method Nom (Bld) Auto Normal [facility] Comment on above: Order Comment: Speci men Type: BLOOD SPECIMENOrdering Facility: [facility] Address: [address] [place] [address] Performed By: #### 5 7021-8 ####[facility] [place] LABCLIA [id number] [place] [id number] [place] Eosinophils (Bld) [#/Vol] 10*3/uL Normal <0.46 [facility] Comment on above: Order Comment: Speci men Type: BLOOD SPECIMENOrdering Facility: [facility] Address: [address] [place] [address] Performed By: #### 5 7021-8 ####[facility] [place] LABCLIA [id number] [place] [id number] [facility] Eosinophils/100 WBC (Bld) 0.3 % Normal [facility] Comment on above: Order Comment: Speci men Type: BLOOD SPECIMENOrdering Facility: [facility] Address: [address] [place] [address] Performed By: #### 5 7021-8 ####[facility] [place] LABCLIA [id number] [place] [address] [place] Erythrocyte distribution width (RBC) [Ratio] 14.9 % Normal 11.5-15.0 [facility] Comment on above: Order Comment: Speci men Type: BLOOD SPECIMENOrdering Facility: [facility] Address: [address] [place] [address] Performed By: #### 5 7021-8 ####[facility] [place] LABCLIA [id number] [place] [address] [facility] Hematocrit (Bld) [Volume fraction] 24.1 % Low 39.0-51.0 [facility] Comment on above: Order Comment: Speci men Type: BLOOD SPECIMENOrdering Facility: [facility] Address: [address] [place] [address] Performed By: #### 5 7021-8 ####[facility] LABCLIA [id number] [place] [address] [facility] [place] Hemoglobin (Bld) [Mass/Vol] 8.1 g/dL Low 13.0-17.0 [facility] Comment on above: Order Comment: Speci men Type: BLOOD SPECIMENOrdering Facility: [facility] Address: [address] [place] [address] Performed By: #### 5 7021-8 ####[facility] [place] LABCLIA [id number] [place] [id number] [facility] [place] Immature granulocytes (Bld) [#/Vol] 0.05 10*3/uL Normal <0.10 [facility] Comment on above: Order Comment: Speci men Type: BLOOD SPECIMENOrdering Facility: [facility] Address: [address] [place] [address] Performed By: #### 5 7021-8 ####[facility] [place] LABCLIA [id number] [place] [address] [place] [facility] Immature granulocytes/100 WBC (Bld) 0.7 % Normal [facility] Comment on above: Order Comment: Speci men Type: BLOOD SPECIMENOrdering Facility: [facility] Address: [address] [place] [address] Performed By: #### 5 7021-8 ####[facility] [place] LABCLIA [id number] [place] [address] [place] Lymphocytes (Bld) [#/Vol] 2.45 10*3/uL Normal 1.00-4.00 [facility] Comment on above: Order Comment: Speci men Type: BLOOD SPECIMENOrdering Facility: [facility] Address: [address] [place] [address] Performed By: #### 5 7021-8 ####[facility] LABCLIA [id number] [place] [id number] [place] [facility] Lymphocytes/100 WBC (Bld) 34.8 % Normal [facility] Comment on above: Order Comment: Speci men Type: BLOOD SPECIMENOrdering Facility: [facility] Address: [address] [place] [address] Performed By: #### 5 7021-8 ####[facility] LABCLIA [id number] [place] [address] [place] MCH (RBC) [Entitic mass] 29.6 pg Normal 26.0-34.0 [facility] Comment on above: Order Comment: Speci men Type: BLOOD SPECIMENOrdering Facility: [facility] Address: [address] [place] [address] Performed By: #### 5 7021-8 ####[facility] [place] LABCLIA [id number] [place] [address] [place] MCHC (RBC) [Mass/Vol] 33.6 g/dL Normal 30.5-36.0 [facility] Comment on above: Order Comment: Speci men Type: BLOOD SPECIMENOrdering Facility: [facility] Address: [address] [place] [address] Performed By: #### 5 7021-8 ####[facility] [place] LABCLIA [id number] [place] [address] [place] MCV (RBC) [Entitic vol] 88.0 fL Normal 80.0-100.0 [facility] Comment on above: Order Comment: Speci men Type: BLOOD SPECIMENOrdering Facility: [facility] Address: [address] [place] [address] Performed By: #### 5 7021-8 ####[facility] LABCLIA [id number] [place] [address] [place] Monocytes (Bld) [#/Vol] 0.42 10*3/uL Normal <0.87 [facility] Comment on above: Order Comment: Speci men Type: BLOOD SPECIMENOrdering Facility: [facility] Address: [address] [place] [address] Performed By: #### 5 7021-8 ####[facility] LABCLIA [id number] [place] [address] [place] [facility] Monocytes/100 WBC (Bld) 6.0 % Normal [facility] Comment on above: Order Comment: Speci men Type: BLOOD SPECIMENOrdering Facility: [facility] Address: [address] [place] [address] Performed By: #### 5 7021-8 ####[facility] [place] LABCLIA [id number] [place] [address] [place] Neutrophils (Bld) [#/Vol] 4.06 10*3/uL Normal 1.45-7.50 [facility] Comment on above: Order Comment: Speci men Type: BLOOD SPECIMENOrdering Facility: [facility] Address: [address] [place] [address] Performed By: #### 5 7021-8 ####[facility] [place] LABCLIA [id number] [facility] [place] [address] [place] Neutrophils/100 WBC (Bld) 57.6 % Normal [facility] Comment on above: Order Comment: Speci men Type: BLOOD SPECIMENOrdering Facility: [facility] Address: [address] [place] [address] Performed By: #### 5 7021-8 ####[facility] [place] LABCLIA [id number] [facility] [place] [address] [place] Nucleated RBC (Bld) [#/Vol] Normal [facility] Comment on above: Order Comment: Speci men Type: BLOOD SPECIMENOrdering Facility: [facility] Address: [address] [place] [address] Performed By: #### 5 7021-8 ####[facility] LABCLIA [id number] [place] [address] [place] Nucleated RBC/100 WBC (Bld) [Ratio] Normal [facility] Comment on above: Order Comment: Speci men Type: BLOOD SPECIMENOrdering Facility: [facility] Address: [address] [place] [address] Performed By: #### 5 7021-8 ####[facility] LABCLIA [id number] [place] [address] [place] Platelet mean volume (Bld) [Entitic vol] 12.6 fL Normal 9.0-12.7 [facility] Comment on above: Order Comment: Speci men Type: BLOOD SPECIMENOrdering Facility: [facility] Address: [address] [place] [address] Performed By: #### 5 7021-8 ####[facility] [place] LABCLIA [id number] [place] [address] [place] Platelets (Bld) [#/Vol] 73 10*3/uL Low 150-400 [facility] Comment on above: Order Comment: Speci men Type: BLOOD SPECIMENOrdering Facility: [facility] Address: [address] [place] [address] Result Comment: Resu lts checked and verified.No clot detected.Reviewed. Performed By: #### 5 7021-8 ####[facility] [place] LABCLIA [id number] [facility] [place] [address] [facility] RBC (Bld) [#/Vol] 2.74 10*6/uL Low 4.20-6.00 [facility] Comment on above: Order Comment: Speci men Type: BLOOD SPECIMENOrdering Facility: [facility] Address: [address] [place] [address] Performed By: #### 5 7021-8 ####[facility] [place] LABCLIA [id number] [facility] [place] [address] [facility] WBC (Bld) [#/Vol] 7.04 10*3/uL Normal 3.70-11.00 [facility] Comment on above: Order Comment: Speci men Type: BLOOD SPECIMENOrdering Facility: [facility] Address: [address] [place] [address] Performed By: #### 5 7021-8 ####[facility] LABCLIA [id number] [facility] [place] [address] [facility] Comprehensive metabolic 2000 panelon 04-27-2024 Albumin [Mass/Vol] 3.9 g/dL Normal 3.9-4.9 [facility] Comment on above: Order Comment: Speci men Type: BLOOD SPECIMENOrdering Facility: [facility] Address: [address] [place] [address] Performed By: #### 2 4323-8 ####[facility] [place] LABCLIA [id number] [facility] [place] [address] [facility] ALP [Catalytic activity/Vol] 92 U/L Normal 38-113 [facility] Comment on above: Order Comment: Speci men Type: BLOOD SPECIMENOrdering Facility: [facility] Address: [address] [place] [address] Performed By: #### 2 4323-8 ####[facility] [place] LABCLIA [id number] [place] [address] [place] ALT With P-5'-P [Catalytic activity/Vol] 15 U/L Normal 10-54 [facility] Comment on above: Order Comment: Speci men Type: BLOOD SPECIMENOrdering Facility: [facility] Address: [address] [place] [address] Performed By: #### 2 4323-8 ####[facility] [place] LABCLIA [id number] [place] [address] [place] Anion gap [Moles/Vol] 12 mmol/L Normal 8-15 [facility] Comment on above: Order Comment: Speci men Type: BLOOD SPECIMENOrdering Facility: [facility] Address: [address] [place] [address] Performed By: #### 2 4323-8 ####[facility] [place] LABCLIA [id number] [place] [address] [place] AST With P-5'-P [Catalytic activity/Vol] 20 U/L Normal 14-40 [facility] Comment on above: Order Comment: Speci men Type: BLOOD SPECIMENOrdering Facility: [facility] Address: [address] [place] [address] Performed By: #### 2 4323-8 ####[facility] [place] LABCLIA [id number] [place] [address] [place] Bilirubin [Mass/Vol] 0.3 mg/dL Normal 0.2-1.3 [facility] Comment on above: Order Comment: Speci men Type: BLOOD SPECIMENOrdering Facility: [facility] Address: [address] [place] [address] Performed By: #### 2 4323-8 ####[facility] [place] LABCLIA [id number] [place] [address] [place] Calcium [Mass/Vol] 9.4 mg/dL Normal 8.5-10.2 [facility] Comment on above: Order Comment: Speci men Type: BLOOD SPECIMENOrdering Facility: [facility] Address: [address] [place] [address] Performed By: #### 2 4323-8 ####[facility] [place] LABCLIA [id number] [place] [address] [place] Chloride [Moles/Vol] 106 mmol/L Normal 98-107 [facility] Comment on above: Order Comment: Speci men Type: BLOOD SPECIMENOrdering Facility: [facility] Address: [address] [place] [address] Performed By: #### 2 4323-8 ####[facility] [place] LABCLIA [id number] [place] [address] [place] CO2 [Moles/Vol] 22 mmol/L Normal 22-30 [facility] Comment on above: Order Comment: Speci men Type: BLOOD SPECIMENOrdering Facility: [facility] Address: [address] [place] [address] Performed By: #### 2 4323-8 ####[facility] LABCLIA [id number] [place] [address] [place] Creatinine [Mass/Vol] 1.00 mg/dL Normal 0.73-1.22 [facility] Comment on above: Order Comment: Speci men Type: BLOOD SPECIMENOrdering Facility: [facility] Address: [address] [place] [address] Performed By: #### 2 4323-8 ####[facility] LABCLIA [id number] [place] [address] [facility] Creatinine and Glomerular filtration rate.predicted panel (S/P/Bld) 76 mL/min/1.73m??? Normal >=60 [facility] Comment on above: Order Comment: Speci men Type: BLOOD SPECIMENOrdering Facility: [facility] Address: [address] [place] [address] Result Comment: Sharon mated Glomerular Filtration Rate [...] actual GFR. Performed By: #### 2 4323-8 ####[facility] LABCLIA [id number] [place] [address] [place] Glucose [Mass/Vol] 210 mg/dL High 74-99 [facility] Comment on above: Order Comment: Mathew portillo Type: BLOOD SPECIMENOrdering Facility: [facility] Address: [address] [place] [address] Result Comment: The [place] Diabetes [employer] (ADA) provides guidance for cutoff [...] Standards of Medical Care in Diabetes 2016, [place] [employer]. Diabetes Care. 2016.39(Suppl 1). Performed By: #### 2 4323-8 ####[facility] LABCLIA [id number] [place] [address] [place] Potassium [Moles/Vol] 4.7 mmol/L Normal 3.7-5.1 [facility] Comment on above: Order Comment: Mathew portillo Type: BLOOD SPECIMENOrdering Facility: [facility] Address: [address] [place] [id number] Performed By: #### 2 4323-8 ####[facility] LABCLIA [id number] [place] [address] [place] Protein [Mass/Vol] 7.0 g/dL Normal 6.3-8.0 [facility] Comment on above: Order Comment: Mathew portillo Type: BLOOD SPECIMENOrdering Facility: [facility] Address: [address] [place] [address] Performed By: #### 2 4323-8 ####[facility] [place] LABCLIA [id number] [place] [address] [facility] Sodium [Moles/Vol] 140 mmol/L Normal 136-144 [facility] Comment on above: Order Comment: Speci men Type: BLOOD SPECIMENOrdering Facility: [facility] Address: [address] [place] [address] Performed By: #### 2 4323-8 ####[facility] [place] LABCLIA [id number] [place] [address] [facility] Urea nitrogen [Mass/Vol] 20 mg/dL Normal 9-24 [facility] Comment on above: Order Comment: Speci men Type: BLOOD SPECIMENOrdering Facility: [facility] Address: [address] [place] [address] Performed By: #### 2 4323-8 ####[facility] [place] LABCLIA [id number] [place] [address] [facility] TYPE + SCREENon 04-27-2024 ABO B Normal [facility] Comment on above: Order Comment: Speci men Type: BLOOD SPECIMENOrdering Facility: [facility] Address: [address] [place] [address] Performed By: #### T SCR ####[facility] BLOOD BANKCLIA [id number] [address] Rh Nom (Bld) Positive Normal [facility] Comment on above: Order Comment: Speci men Type: BLOOD SPECIMENOrdering Facility: [facility] Address: [address] [place] [address] Performed By: #### T SCR ####[facility] BLOOD BANKCLIA [id number] [address] TYPE AND SCREEN EXPIRATION 04/30/2024 23:59 Normal [facility] Comment on above: Order Comment: Speci men Type: BLOOD SPECIMENOrdering Facility: [facility] Address: [address] [place] [address] Performed By: #### T SCR ####[facility] BLOOD BANKCLIA [id number] [place] [address] [place] CNPNon 04-15-2024 CNPN Normal [facility] TYPE + SCREENon 04-15-2024 ABO B Normal [facility] Comment on above: Order Comment: Speci men Type: BLOOD SPECIMENOrdering Facility: [facility] Address: [address] [place] [address] Performed By: #### T SCR ####[facility] BLOOD BANKCLIA [id number] [place] [id number] [place] Rh Nom (Bld) Positive Normal [facility] Comment on above: Order Comment: Speci men Type: BLOOD SPECIMENOrdering Facility: [facility] Address: [address] [place] [address] Performed By: #### T SCR ####[facility] BLOOD BANKCLIA [id number] [address] OF [facility] TYPE AND SCREEN EXPIRATION 04/18/2024 23:59 Normal [facility] Comment on above: Order Comment: Speci men Type: BLOOD SPECIMENOrdering Facility: [facility] Address: [address] [place] [address] Performed By: #### T SCR ####[facility] BLOOD BANKCLIA [id number] [address] [place] CBC W Auto Differential pane l (Bld)on 04-14-2024 Anisocytosis Ql (Bld) Present [facility] Basophils (Bld) [#/Vol] NINF [facility] Basophils/100 WBC (Bld) 0.4 % [facility] Differential cell count method Nom (Bld) Auto [facility] Eosinophils (Bld) [#/Vol] NINF [facility] Eosinophils/100 WBC (Bld) 0.2 % [facility] Erythrocyte distribution width (RBC) [Ratio] 16.7 % High 11.5 - 15.0 % [facility] Hematocrit (Bld) [Volume fraction] 20.9 % Low 39.0 - 51.0 % [facility] Hemoglobin (Bld) [Mass/Vol] 6.9 g/dL Low 13.0 - 17.0 g/dL [facility] Immature granulocytes (Bld) [#/Vol] NINF [facility] Immature granulocytes/100 WBC (Bld) 0.4 % [facility] Interpretation and review of laboratory results Abnormal [facility] Lymphocytes (Bld) [#/Vol] 1.52 10*3/uL [facility] Lymphocytes/100 WBC (Bld) 27.9 % [facility] MCH (RBC) [Entitic mass] 29.6 pg 26.0 - 34.0 pg [facility] MCHC (RBC) [Mass/Vol] 33 g/dL 30.5 - 36.0 g/dL [facility] MCV (RBC) [Entitic vol] 89.7 fL 80.0 - 100.0 fL [facility] Monocytes (Bld) [#/Vol] 0.37 10*3/uL NINF [facility] Monocytes/100 WBC (Bld) 6.8 % [facility] Neutrophils (Bld) [#/Vol] 3.51 10*3/uL [facility] Neutrophils/100 WBC (Bld) 64.3 % [facility] Nucleated RBC (Bld) [#/Vol] [facility] Nucleated RBC/100 WBC (Bld) [Ratio] [facility] Platelet mean volume (Bld) [Entitic vol] 11.7 fL 9.0 - 12.7 fL [facility] Platelets (Bld) [#/Vol] 96 10*3/uL Low [facility] Comment on above: No clot detected. Platelets Estimate (Bld) [#/Vol] Decreased [facility] Polychromasia LM Ql (Bld) Slight [facility] RBC (Bld) [#/Vol] 2.33 10*6/uL Low 4.20 - 6.0 0 m/uL [facility] Red Cell Morph Reviewed: see result s of individual morphologies [facility] WBC (Bld) [#/Vol] 5.45 10*3/uL [facility] This is an appended report. These results have been appended to a previously verified report. [facility] Anisocytosis Ql (Bld) Present Normal [facility] Comment on above: Order Comment: Speci men Type: BLOOD SPECIMENOrdering Facility: [facility] Address: [address] [place] [address] Performed By: #### 5 7021-8 ####[facility] LABCLIA [id number] [facility] [place] [address] [place] Basophils (Bld) [#/Vol] 10*3/uL Normal <0.11 [facility] Comment on above: Order Comment: Speci men Type: BLOOD SPECIMENOrdering Facility: [facility] Address: [address] [place] [address] Performed By: #### 5 7021-8 ####[facility] LABCLIA [id number] [facility] [place] [address] [place] Basophils/100 WBC (Bld) 0.4 % Normal [facility] Comment on above: Order Comment: Speci men Type: BLOOD SPECIMENOrdering Facility: [facility] Address: [address] [place] [address] Performed By: #### 5 7021-8 ####[facility] LABCLIA [id number] [place] [address] [facility] [place] Differential cell count method Nom (Bld) Auto Normal [facility] Comment on above: Order Comment: Speci men Type: BLOOD SPECIMENOrdering Facility: [facility] Address: [address] [place] [address] Performed By: #### 5 7021-8 ####[facility] LABCLIA [id number] [facility] [place] [address] [place] Eosinophils (Bld) [#/Vol] 10*3/uL Normal <0.46 [facility] Comment on above: Order Comment: Speci men Type: BLOOD SPECIMENOrdering Facility: [facility] Address: [address] [place] [address] Performed By: #### 5 7021-8 ####[facility] LABCLIA [id number] [facility] [place] [address] [place] Eosinophils/100 WBC (Bld) 0.2 % Normal [facility] Comment on above: Order Comment: Speci men Type: BLOOD SPECIMENOrdering Facility: [facility] Address: [address] [place] [address] Performed By: #### 5 7021-8 ####[facility] LABCLIA [id number] [place] [address] [place] Erythrocyte distribution width (RBC) [Ratio] 16.7 % High 11.5-15.0 [facility] Comment on above: Order Comment: Speci men Type: BLOOD SPECIMENOrdering Facility: [facility] Address: [address] [place] [address] Performed By: #### 5 7021-8 ####[facility] LABCLIA [id number] [place] [address] [facility] [place] Hematocrit (Bld) [Volume fraction] 20.9 % Low 39.0-51.0 [facility] Comment on above: Order Comment: Speci men Type: BLOOD SPECIMENOrdering Facility: [facility] Address: [address] [place] [address] Performed By: #### 5 7021-8 ####[facility] LABCLIA [id number] [place] [address] [place] Hemoglobin (Bld) [Mass/Vol] 6.9 g/dL Low 13.0-17.0 [facility] Comment on above: Order Comment: Speci men Type: BLOOD SPECIMENOrdering Facility: [facility] Address: [address] [place] [address] Performed By: #### 5 7021-8 ####[facility] LABCLIA [id number] [place] [address] [place] Immature granulocytes (Bld) [#/Vol] 10*3/uL Normal <0.10 [facility] Comment on above: Order Comment: Speci men Type: BLOOD SPECIMENOrdering Facility: [facility] Address: [address] [place] [address] Performed By: #### 5 7021-8 ####[facility] LABCLIA [id number] [facility] [place] [address] [facility] Immature granulocytes/100 WBC (Bld) 0.4 % Normal [facility] Comment on above: Order Comment: Speci men Type: BLOOD SPECIMENOrdering Facility: [facility] Address: [address] [place] [address] Performed By: #### 5 7021-8 ####[facility] LABCLIA [id number] [place] [address] [place] Lymphocytes (Bld) [#/Vol] 1.52 10*3/uL Normal 1.00-4.00 [facility] Comment on above: Order Comment: Speci men Type: BLOOD SPECIMENOrdering Facility: [facility] Address: [address] [place] [address] Performed By: #### 5 7021-8 ####[facility] LABCLIA [id number] [address] Lymphocytes/100 WBC (Bld) 27.9 % Normal [facility] Comment on above: Order Comment: Speci men Type: BLOOD SPECIMENOrdering Facility: [facility] Address: [address] [place] [address] Performed By: #### 5 7021-8 ####[facility] LABCLIA [id number] [address] [place] MCH (RBC) [Entitic mass] 29.6 pg Normal 26.0-34.0 [facility] Comment on above: Order Comment: Speci men Type: BLOOD SPECIMENOrdering Facility: [facility] Address: [address] [place] [address] Performed By: #### 5 7021-8 ####[facility] LABCLIA [id number] [place] [id number] [place] MCHC (RBC) [Mass/Vol] 33.0 g/dL Normal 30.5-36.0 [facility] Comment on above: Order Comment: Speci men Type: BLOOD SPECIMENOrdering Facility: [facility] Address: [address] [place] [address] Performed By: #### 5 7021-8 ####[facility] LABCLIA [id number] [place] [address] [place] MCV (RBC) [Entitic vol] 89.7 fL Normal 80.0-100.0 [facility] Comment on above: Order Comment: Speci men Type: BLOOD SPECIMENOrdering Facility: [facility] Address: [address] [place] [address] Performed By: #### 5 7021-8 ####[facility] LABCLIA [id number] [place] [address] [place] Monocytes (Bld) [#/Vol] 0.37 10*3/uL Normal <0.87 [facility] Comment on above: Order Comment: Speci men Type: BLOOD SPECIMENOrdering Facility: [facility] Address: [address] [place] [address] Performed By: #### 5 7021-8 ####[facility] LABCLIA [id number] [facility] [place] [address] [place] Monocytes/100 WBC (Bld) 6.8 % Normal [facility] Comment on above: Order Comment: Speci men Type: BLOOD SPECIMENOrdering Facility: [facility] Address: [address] [place] [address] Performed By: #### 5 7021-8 ####[facility] LABCLIA [id number] [facility] [place] [address] [place] Neutrophils (Bld) [#/Vol] 3.51 10*3/uL Normal 1.45-7.50 [facility] Comment on above: Order Comment: Speci men Type: BLOOD SPECIMENOrdering Facility: [facility] Address: [address] [place] [address] Performed By: #### 5 7021-8 ####[facility] LABCLIA [id number] [facility] [place] [address] [place] Neutrophils/100 WBC (Bld) 64.3 % Normal [facility] Comment on above: Order Comment: Speci men Type: BLOOD SPECIMENOrdering Facility: [facility] Address: [address] [place] [address] Performed By: #### 5 7021-8 ####[facility] LABCLIA [id number] [facility] [place] [address] [place] Nucleated RBC (Bld) [#/Vol] Normal [facility] Comment on above: Order Comment: Speci men Type: BLOOD SPECIMENOrdering Facility: [facility] Address: [address] [place] [address] Performed By: #### 5 7021-8 ####[facility] LABCLIA [id number] [facility] [address] [facility] [place] Nucleated RBC/100 WBC (Bld) [Ratio] Normal [facility] Comment on above: Order Comment: Speci men Type: BLOOD SPECIMENOrdering Facility: [facility] Address: [address] [place] [address] Performed By: #### 5 7021-8 ####[facility] LABCLIA [id number] [facility] [place] [address] [place] Platelet mean volume (Bld) [Entitic vol] 11.7 fL Normal 9.0-12.7 [facility] Comment on above: Order Comment: Speci men Type: BLOOD SPECIMENOrdering Facility: [facility] Address: [address] [place] [address] Performed By: #### 5 7021-8 ####[facility] LABCLIA [id number] [facility] [place] [address] [facility] [place] Platelets (Bld) [#/Vol] 96 10*3/uL Low 150-400 [facility] Comment on above: Order Comment: Speci men Type: BLOOD SPECIMENOrdering Facility: [facility] Address: [address] [place] [address] Result Comment: No c lot detected. Performed By: #### 5 7021-8 ####[facility] LABCLIA [id number] [place] [address] [facility] Platelets Estimate (Bld) [#/Vol] Decreased Normal [facility] Comment on above: Order Comment: Speci men Type: BLOOD SPECIMENOrdering Facility: [facility] Address: [address] [place] [address] Performed By: #### 5 7021-8 ####[facility] LABCLIA [id number] [place] [address] [facility] Polychromasia LM Ql (Bld) Slight Normal [facility] Comment on above: Order Comment: Speci men Type: BLOOD SPECIMENOrdering Facility: [facility] Address: [address] [place] [address] Performed By: #### 5 7021-8 ####[facility] LABCLIA [id number] [place] [address] [facility] RBC (Bld) [#/Vol] 2.33 10*6/uL Low 4.20-6.00 [facility] Comment on above: Order Comment: Speci men Type: BLOOD SPECIMENOrdering Facility: [facility] Address: [address] [place] [address] Performed By: #### 5 7021-8 ####[facility] LABCLIA [id number] [place], [place] [address] [place] [address] RED CELL MORPH Reviewed: see result s of individual morphologies Normal [facility] Comment on above: Order Comment: Speci men Type: BLOOD SPECIMENOrdering Facility: [facility] Address: [address] [place] [address] Performed By: #### 5 7021-8 ####[facility] LABCLIA [id number] [place] [address] [facility] WBC (Bld) [#/Vol] 5.45 10*3/uL Normal 3.70-11.00 [facility] Comment on above: Order Comment: Speci men Type: BLOOD SPECIMENOrdering Facility: [facility] Address: [address] [place] [address] Performed By: #### 5 7021-8 ####[facility] LABCLIA [id number] [place] [address] [place] CNPNon 04-14-2024 CNPN Normal [facility] CBC W Auto Differential pane l (Bld)on 04-07-2024 Basophils (Bld) [#/Vol] [facility] Basophils/100 WBC (Bld) 0.3 % [facility] Differential cell count method Nom (Bld) Auto [facility] Eosinophils (Bld) [#/Vol] [facility] Eosinophils/100 WBC (Bld) 0.2 % [facility] Erythrocyte distribution width (RBC) [Ratio] 17 % High 11.5 - 15.0 % [facility] Hematocrit (Bld) [Volume fraction] 23.7 % Low 39.0 - 51.0 % [facility] Hemoglobin (Bld) [Mass/Vol] 8 g/dL Low 13.0 - 17.0 g/dL [facility] Immature granulocytes (Bld) [#/Vol] 0.04 10*3/uL [facility] Immature granulocytes/100 WBC (Bld) 0.7 % [facility] Interpretation and review of laboratory results Abnormal [facility] Lymphocytes (Bld) [#/Vol] 1.9 10*3/uL [facility] Lymphocytes/100 WBC (Bld) 32.9 % [facility] MCH (RBC) [Entitic mass] 29.6 pg 26.0 - 34.0 pg [facility] MCHC (RBC) [Mass/Vol] 33.8 g/dL 30.5 - 36.0 g/dL [facility] MCV (RBC) [Entitic vol] 87.8 fL 80.0 - 100.0 fL [facility] Monocytes (Bld) [#/Vol] 0.41 10*3/uL [facility] Monocytes/100 WBC (Bld) 7.1 % [facility] Neutrophils (Bld) [#/Vol] 3.4 10*3/uL [facility] Neutrophils/100 WBC (Bld) 58.8 % [facility] Nucleated RBC (Bld) [#/Vol] 0.05 10*3/uL High [facility] Nucleated RBC/100 WBC (Bld) [Ratio] 0.9 % /100 WBC [facility] Platelet mean volume (Bld) [Entitic vol] 11.9 fL 9.0 - 12.7 fL [facility] Platelets (Bld) [#/Vol] 97 10*3/uL Low [facility] Comment on above: No clot detected. RBC (Bld) [#/Vol] 2.7 10*6/uL Low 4.20 - 6.0 0 m/uL [facility] WBC (Bld) [#/Vol] 5.78 10*3/uL [facility] Basophils (Bld) [#/Vol] 10*3/uL Normal <0.11 [facility] Comment on above: Order Comment: Speci men Type: BLOOD SPECIMENOrdering Facility: [facility] Address: [address] [place] [address] Performed By: #### 5 7021-8 ####[facility]ORATORYCLIA [id number] [address] [place] Basophils/100 WBC (Bld) 0.3 % Normal [facility] Comment on above: Order Comment: Speci men Type: BLOOD SPECIMENOrdering Facility: [facility] Address: [address] [place] [address] Performed By: #### 5 7021-8 ####[facility] LABORATORYCLIA [id number] [address] [place] Differential cell count method Nom (Bld) Auto Normal [facility] Comment on above: Order Comment: Speci men Type: BLOOD SPECIMENOrdering Facility: [facility] Address: [address] [place] [address] Performed By: #### 5 7021-8 ####[facility] LABORATORYCLIA [id number] [place] [address] [place] Eosinophils (Bld) [#/Vol] 10*3/uL Normal <0.46 [facility] Comment on above: Order Comment: Speci men Type: BLOOD SPECIMENOrdering Facility: [facility] Address: [address] [place] [address] Performed By: #### 5 7021-8 ####[facility]ORY[facility] [id number] [address] [place] Eosinophils/100 WBC (Bld) 0.2 % Normal [facility] Comment on above: Order Comment: Speci men Type: BLOOD SPECIMENOrdering Facility: [facility] Address: [address] [place] [address] Performed By: #### 5 7021-8 ####[facility] LABORATORYCLIA [id number] [address] [place] Erythrocyte distribution width (RBC) [Ratio] 17.0 % High 11.5-15.0 [facility] Comment on above: Order Comment: Speci men Type: BLOOD SPECIMENOrdering Facility: [facility] Address: [address] [place] [address] Performed By: #### 5 7021-8 ####[facility] LABORATORYCLIA [id number] [address] [place] Hematocrit (Bld) [Volume fraction] 23.7 % Low 39.0-51.0 [facility] Comment on above: Order Comment: Speci men Type: BLOOD SPECIMENOrdering Facility: [facility] Address: [address] [place] [address] Performed By: #### 5 7021-8 ####[facility]ORATORYCLIA [id number] [address] [place] Hemoglobin (Bld) [Mass/Vol] 8.0 g/dL Low 13.0-17.0 [facility] Comment on above: Order Comment: Speci men Type: BLOOD SPECIMENOrdering Facility: [facility] Address: [address] [place] [address] Performed By: #### 5 7021-8 ####[facility]ATORYCLIA [id number] [address] [place] Immature granulocytes (Bld) [#/Vol] 0.04 10*3/uL Normal <0.10 [facility] Comment on above: Order Comment: Speci men Type: BLOOD SPECIMENOrdering Facility: [facility] Address: [address] [place], [place] [address] Performed By: #### 5 7021-8 ####[facility]ORATORYCLIA [id number] [address] Immature granulocytes/100 WBC (Bld) 0.7 % Normal [facility] Comment on above: Order Comment: Speci men Type: BLOOD SPECIMENOrdering Facility: [facility] Address: [address] [place] [address] Performed By: #### 5 7021-8 ####[facility]ORATORYCLIA [id number] [address] [place] Lymphocytes (Bld) [#/Vol] 1.90 10*3/uL Normal 1.00-4.00 [facility] Comment on above: Order Comment: Speci men Type: BLOOD SPECIMENOrdering Facility: [facility] Address: [address] [place] [address] Performed By: #### 5 7021-8 ####[facility]ORATORYCLIA [id number] [address] Lymphocytes/100 WBC (Bld) 32.9 % Normal [facility] Comment on above: Order Comment: Speci men Type: BLOOD SPECIMENOrdering Facility: [facility] Address: [address] [place] [address] Performed By: #### 5 7021-8 ####[facility]ORATORYCLIA [id number] [address] [place] MCH (RBC) [Entitic mass] 29.6 pg Normal 26.0-34.0 [facility] Comment on above: Order Comment: Speci men Type: BLOOD SPECIMENOrdering Facility: [facility] Address: [address] [place] [address] Performed By: #### 5 7021-8 ####[facility]ORATORYCLIA [id number] [address] [place] MCHC (RBC) [Mass/Vol] 33.8 g/dL Normal 30.5-36.0 [facility] Comment on above: Order Comment: Speci men Type: BLOOD SPECIMENOrdering Facility: [facility] Address: [address] [place] [address] Performed By: #### 5 7021-8 ####[facility]ORATORYCLIA [id number] [address] [place] MCV (RBC) [Entitic vol] 87.8 fL Normal 80.0-100.0 [facility] Comment on above: Order Comment: Speci men Type: BLOOD SPECIMENOrdering Facility: [facility] Address: [address] [place] [address] Performed By: #### 5 7021-8 ####[facility]ORATORYCLIA [id number] [place] [address] [place] Monocytes (Bld) [#/Vol] 0.41 10*3/uL Normal <0.87 [facility] Comment on above: Order Comment: Speci men Type: BLOOD SPECIMENOrdering Facility: [facility] Address: [address] [place] [address] Performed By: #### 5 7021-8 ####[facility]ORATORYCLIA [id number] [address] [place] Monocytes/100 WBC (Bld) 7.1 % Normal [facility] Comment on above: Order Comment: Speci men Type: BLOOD SPECIMENOrdering Facility: [facility] Address: [address] [place] [address] Performed By: #### 5 7021-8 ####[facility]ORATORYCLIA [id number] [address] [place] Neutrophils (Bld) [#/Vol] 3.40 10*3/uL Normal 1.45-7.50 [facility] Comment on above: Order Comment: Speci men Type: BLOOD SPECIMENOrdering Facility: [facility] Address: [address] [place] [address] Performed By: #### 5 7021-8 ####[facility]ORYCLIA [id number] [address] [place] Neutrophils/100 WBC (Bld) 58.8 % Normal [facility] Comment on above: Order Comment: Speci men Type: BLOOD SPECIMENOrdering Facility: [facility] Address: [address] [place] [address] Performed By: #### 5 7021-8 ####[facility]ORATORYCLIA [id number] [address] [place] Nucleated RBC (Bld) [#/Vol] 0.05 10*3/uL High <0.01 [facility] Comment on above: Order Comment: Speci men Type: BLOOD SPECIMENOrdering Facility: [facility] Address: [address] [place] [address] Performed By: #### 5 7021-8 ####[facility]ORATORYCLIA [id number] [address] [place] Nucleated RBC/100 WBC (Bld) [Ratio] 0.9 /100 WBC Normal [facility] Comment on above: Order Comment: Speci men Type: BLOOD SPECIMENOrdering Facility: [facility] Address: [address] [place] [address] Performed By: #### 5 7021-8 ####[facility]ORATORYCLIA [id number] [address] [place] Platelet mean volume (Bld) [Entitic vol] 11.9 fL Normal 9.0-12.7 [facility] Comment on above: Order Comment: Speci men Type: BLOOD SPECIMENOrdering Facility: [facility] Address: [address] [place] [address] Performed By: #### 5 7021-8 ####[facility]ORATORYCLIA [id number] [address] [place] Platelets (Bld) [#/Vol] 97 10*3/uL Low 150-400 [facility] Comment on above: Order Comment: Speci men Type: BLOOD SPECIMENOrdering Facility: [facility] Address: [address] [place] [address] Result Comment: No c lot detected. Performed By: #### 5 7021-8 ####[facility]ATORYCLIA [id number] [address] [place] RBC (Bld) [#/Vol] 2.70 10*6/uL Low 4.20-6.00 [facility] Comment on above: Order Comment: Speci men Type: BLOOD SPECIMENOrdering Facility: [facility] Address: [address] [place] [address] Performed By: #### 5 7021-8 ####[facility]ORATORYCLIA [id number] [address] WBC (Bld) [#/Vol] 5.78 10*3/uL Normal 3.70-11.00 [facility] Comment on above: Order Comment: Speci men Type: BLOOD SPECIMENOrdering Facility: [facility] Address: [address] [place] [address] Performed By: #### 5 7021-8 ####[facility] LABORATORYCLIA [id number] [address] OF [facility] CNOVSPon 04-07-2024 CNOVSP Normal [facility] Comprehensive metabolic 2000 panelon 04-07-2024 Albumin [Mass/Vol] 4.1 g/dL 3.9 - 4.9 g/dL [facility] ALP [Catalytic activity/Vol] 100 U/L 38 - 113 U/L [facility] ALT With P-5'-P [Catalytic activity/Vol] 15 U/L 10 - 54 U/L [facility] Anion gap [Moles/Vol] 11 mmol/L 8 - 15 mmol/L [facility] AST With P-5'-P [Catalytic activity/Vol] 18 U/L 14 - 40 U/L [facility] Bilirubin [Mass/Vol] 0.2 mg/dL 0.2 - 1.3 mg/dL [facility] Calcium [Mass/Vol] 9.5 mg/dL 8.5 - 10. 2 mg/dL [facility] Chloride [Moles/Vol] 101 mmol/L 98 - 107 mmol/L [facility] CO2 [Moles/Vol] 24 mmol/L 22 - 30 mmol/L [facility] Creatinine [Mass/Vol] 0.89 mg/dL 0.73 - 1.22 mg/dL [facility] GFR/1.73 sq M.predicted among non-blacks MDRD (S/P/Bld) [Vol rate/Area] 87 mL/min/{1.73_m2} - PINF [facility] Comment on above: Estimated Glomerular Filtration Rate [...] 296 mg/dL High 74 - 99 mg/dL [facility] Comment on above: The [place] Diab[employer] s Association (ADA) provides guidance for [...] Standards of Medical Care in Diabetes 2016, [place] [employer]. Diabetes Care. 2016.39(Suppl 1). Interpretation and review of laboratory results Abnormal [facility] Potassium [Moles/Vol] 4.3 mmol/L 3.7 - 5.1 mmol/L [facility] Protein [Mass/Vol] 6.9 g/dL 6.3 - 8.0 g/dL [facility] Sodium [Moles/Vol] 136 mmol/L 136 - 144 mmol/L [facility] Urea nitrogen [Mass/Vol] 21 mg/dL 9 - 24 mg/dL [facility] Albumin [Mass/Vol] 4.1 g/dL Normal 3.9-4.9 [facility] Comment on above: Order Comment: Speci men Type: BLOOD SPECIMENOrdering Facility: [facility] Address: [facility] [place] [address] Performed By: #### 2 4323-8 ####[facility]ORATORYCLIA [id number] [place] [address] [place] ALP [Catalytic activity/Vol] 100 U/L Normal 38-113 [facility] Comment on above: Order Comment: Speci men Type: BLOOD SPECIMENOrdering Facility: [facility] Address: [address] [place] [address] Performed By: #### 2 4323-8 ####[facility]ORATORYCLIA [id number] [address] [place] ALT With P-5'-P [Catalytic activity/Vol] 15 U/L Normal 10-54 [facility] Comment on above: Order Comment: Speci men Type: BLOOD SPECIMENOrdering Facility: [facility] Address: [address] [place] [address] Performed By: #### 2 4323-8 ####[facility]ORATORYCLIA [id number] [address] STATES [facility] Anion gap [Moles/Vol] 11 mmol/L Normal 8-15 [facility] Comment on above: Order Comment: Speci men Type: BLOOD SPECIMENOrdering Facility: [facility] Address: [address] [place] [address] Performed By: #### 2 4323-8 ####[facility] LABORATORYCLIA [id number] [address] [place] AST With P-5'-P [Catalytic activity/Vol] 18 U/L Normal 14-40 [facility] Comment on above: Order Comment: Speci men Type: BLOOD SPECIMENOrdering Facility: [facility] Address: [address] [place] [address] Performed By: #### 2 4323-8 ####[facility]ORATORYCLIA [id number] [address] [place] Bilirubin [Mass/Vol] 0.2 mg/dL Normal 0.2-1.3 [facility] Comment on above: Order Comment: Speci men Type: BLOOD SPECIMENOrdering Facility: [facility] Address: [address] [place] [address] Performed By: #### 2 4323-8 ####[facility]ATORYCLIA [id number] [place] [address] [place] Calcium [Mass/Vol] 9.5 mg/dL Normal 8.5-10.2 [facility] Comment on above: Order Comment: Speci men Type: BLOOD SPECIMENOrdering Facility: [facility] Address: [address] [place] [address] Performed By: #### 2 4323-8 ####[facility] LABORATORYCLIA [id number] [place] [address] [place] Chloride [Moles/Vol] 101 mmol/L Normal 98-107 [facility] Comment on above: Order Comment: Speci men Type: BLOOD SPECIMENOrdering Facility: [facility] Address: [address] [place] [address] Performed By: #### 2 4323-8 ####[facility] LABORATORYCLIA [id number] [place] [address] [place] CO2 [Moles/Vol] 24 mmol/L Normal 22-30 [facility] Comment on above: Order Comment: Speci men Type: BLOOD SPECIMENOrdering Facility: [facility] Address: [address] [place] [address] Performed By: #### 2 4323-8 ####[facility] LABORATORYCLIA [id number] [place] [address] [place] Creatinine [Mass/Vol] 0.89 mg/dL Normal 0.73-1.22 [facility] Comment on above: Order Comment: Speci men Type: BLOOD SPECIMENOrdering Facility: [facility] Address: [address] [place] [address] Performed By: #### 2 4323-8 ####[facility] LABORATORYCLIA [id number] [address] [place] Creatinine and Glomerular filtration rate.predicted panel (S/P/Bld) 87 mL/min/1.73m??? Normal >=60 [facility] Comment on above: Order Comment: Mathew portillo Type: BLOOD SPECIMENOrdering Facility: [facility] Address: [address] [place] [address] Result Comment: Sharon mated Glomerular Filtration Rate [...] actual GFR. Performed By: #### 2 4323-8 ####[facility] LABORATORYCLIA [id number] [place] [address] [place] Glucose [Mass/Vol] 296 mg/dL High 74-99 [facility] Comment on above: Order Comment: Mathew portillo Type: BLOOD SPECIMENOrdering Facility: [facility] Address: [address] [place] [address] Result Comment: The [place] Diabetes Association (ADA) provides guidance for cutoff [...] Standards of Medical Care in Diabetes 2016, [place] Diabetes Association. Diabetes Care. 2016.39(Suppl 1). Performed By: #### 2 4323-8 ####[facility] LABORATORYCLIA [id number] [place] [address] [place] Potassium [Moles/Vol] 4.3 mmol/L Normal 3.7-5.1 [facility] Comment on above: Order Comment: Mathew portillo Type: BLOOD SPECIMENOrdering Facility: [facility] Address: [address] [place] [address] Performed By: #### 2 4323-8 ####[facility] LABORATORYCLIA [id number] [place] [address] [place] Protein [Mass/Vol] 6.9 g/dL Normal 6.3-8.0 [facility] Comment on above: Order Comment: Speci men Type: BLOOD SPECIMENOrdering Facility: [facility] Address: [address] [place] [address] Performed By: #### 2 4323-8 ####[facility] LABORATORYCLIA [id number] [address] [place] Sodium [Moles/Vol] 136 mmol/L Normal 136-144 [facility] Comment on above: Order Comment: Speci men Type: BLOOD SPECIMENOrdering Facility: [facility] Address: [address] [place] [address] Performed By: #### 2 4323-8 ####[facility] LABORATORYCLIA [id number] [address] [place] Urea nitrogen [Mass/Vol] 21 mg/dL Normal 9-24 [facility] Comment on above: Order Comment: Speci men Type: BLOOD SPECIMENOrdering Facility: [facility] Address: [address] [place] [address] Performed By: #### 2 4323-8 ####[facility] LABORATORYCLIA [id number] [address] [place] CBC W Auto Differential pane l (Bld)on 03-24-2024 Basophils (Bld) [#/Vol] 10*3/uL Normal <0.11 [facility] Comment on above: Order Comment: Speci men Type: BLOOD SPECIMENOrdering Facility: [facility] Address: [address] [place] [address] Performed By: #### 5 7021-8 ####[facility] LABORATORYCLIA [id number] [address] [place] Basophils/100 WBC (Bld) 0.2 % Normal [facility] Comment on above: Order Comment: Speci men Type: BLOOD SPECIMENOrdering Facility: [facility] Address: [address] [place] [address] Performed By: #### 5 7021-8 ####[facility]ORATORYCLIA [id number] [address] Differential cell count method Nom (Bld) Auto Normal [facility] Comment on above: Order Comment: Speci men Type: BLOOD SPECIMENOrdering Facility: [facility] Address: [address] [place] [address] Performed By: #### 5 7021-8 ####[facility]ORATORYCLIA [id number] [address] [place] Eosinophils (Bld) [#/Vol] 10*3/uL Normal <0.46 [facility] Comment on above: Order Comment: Speci men Type: BLOOD SPECIMENOrdering Facility: [facility] Address: [address] [place] [address] Performed By: #### 5 7021-8 ####[facility] LABORATORYCLIA [id number] [address] Eosinophils/100 WBC (Bld) 0.3 % Normal [facility] Comment on above: Order Comment: Speci men Type: BLOOD SPECIMENOrdering Facility: [facility] Address: [address] [place] [address] Performed By: #### 5 7021-8 ####[facility] LABORATORYCLIA [id number] [address] [place] Erythrocyte distribution width (RBC) [Ratio] 19.3 % High 11.5-15.0 [facility] Comment on above: Order Comment: Speci men Type: BLOOD SPECIMENOrdering Facility: [facility] Address: [address] [place] [address] Performed By: #### 5 7021-8 ####[facility]ORATORYCLIA [id number] [address] [place] Hematocrit (Bld) [Volume fraction] 19.5 % Low 39.0-51.0 [facility] Comment on above: Order Comment: Speci men Type: BLOOD SPECIMENOrdering Facility: [facility] Address: [address] [place] [address] Performed By: #### 5 7021-8 ####[facility]ORATORYCLIA [id number] [place] [address] [place] Hemoglobin (Bld) [Mass/Vol] 6.4 g/dL Low 13.0-17.0 [facility] Comment on above: Order Comment: Speci men Type: BLOOD SPECIMENOrdering Facility: [facility] Address: [address] [place] [address] Performed By: #### 5 7021-8 ####[facility]ATORYCLIA [id number] [address] [place] Immature granulocytes (Bld) [#/Vol] 0.03 10*3/uL Normal <0.10 [facility] Comment on above: Order Comment: Speci men Type: BLOOD SPECIMENOrdering Facility: [facility] Address: [address] [place] [address] Performed By: #### 5 7021-8 ####[facility] LABORATORYCLIA [id number] [address] [place] Immature granulocytes/100 WBC (Bld) 0.5 % Normal [facility] Comment on above: Order Comment: Speci men Type: BLOOD SPECIMENOrdering Facility: [facility] Address: [address] [place] [address] Performed By: #### 5 7021-8 ####[facility]ORATORYCLIA [id number] [place] [address] [place] Lymphocytes (Bld) [#/Vol] 2.08 10*3/uL Normal 1.00-4.00 [facility] Comment on above: Order Comment: Speci men Type: BLOOD SPECIMENOrdering Facility: [facility] Address: [address] [place] [address] Performed By: #### 5 7021-8 ####[facility]ORATORYCLIA [id number] [address] [place] Lymphocytes/100 WBC (Bld) 32.8 % Normal [facility] Comment on above: Order Comment: Speci men Type: BLOOD SPECIMENOrdering Facility: [facility] Address: [address] [place] [address] Performed By: #### 5 7021-8 ####[facility] LABORATORYCLIA [id number] [address] MCH (RBC) [Entitic mass] 31.7 pg Normal 26.0-34.0 [facility] Comment on above: Order Comment: Speci men Type: BLOOD SPECIMENOrdering Facility: [facility] Address: [address] [place] [address] Performed By: #### 5 7021-8 ####[facility] LABORATORYCLIA [id number] [address] MCHC (RBC) [Mass/Vol] 32.8 g/dL Normal 30.5-36.0 [facility] Comment on above: Order Comment: Speci men Type: BLOOD SPECIMENOrdering Facility: [facility] Address: [address] [place] [address] Performed By: #### 5 7021-8 ####[facility] LABORATORYCLIA [id number] [address] MCV (RBC) [Entitic vol] 96.5 fL Normal 80.0-100.0 [facility] Comment on above: Order Comment: Speci men Type: BLOOD SPECIMENOrdering Facility: [facility] Address: [address] [place] [address] Performed By: #### 5 7021-8 ####[facility] LABORATORYCLIA [id number] [address] Monocytes (Bld) [#/Vol] 0.50 10*3/uL Normal <0.87 [facility] Comment on above: Order Comment: Speci men Type: BLOOD SPECIMENOrdering Facility: [facility] Address: [address] [place] [address] Performed By: #### 5 7021-8 ####[facility] LABORATORYCLIA [id number] [place] [address] [place] Monocytes/100 WBC (Bld) 7.9 % Normal [facility] Comment on above: Order Comment: Speci men Type: BLOOD SPECIMENOrdering Facility: [facility] Address: [address] [place] [address] Performed By: #### 5 7021-8 ####[facility] LABORATORYCLIA [id number] [place] [address] [place] Neutrophils (Bld) [#/Vol] 3.71 10*3/uL Normal 1.45-7.50 [facility] Comment on above: Order Comment: Speci men Type: BLOOD SPECIMENOrdering Facility: [facility] Address: [address] [place] [address] Performed By: #### 5 7021-8 ####[facility] LABORATORYCLIA [id number] [place] [address] [place] Neutrophils/100 WBC (Bld) 58.3 % Normal [facility] Comment on above: Order Comment: Speci men Type: BLOOD SPECIMENOrdering Facility: [facility] Address: [address] [place] [address] Performed By: #### 5 7021-8 ####[facility] LABORATORYCLIA [id number] [place] [address] [place] Nucleated RBC (Bld) [#/Vol] 0.02 10*3/uL High <0.01 [facility] Comment on above: Order Comment: Speci men Type: BLOOD SPECIMENOrdering Facility: [facility] Address: [address] [place] [address] Performed By: #### 5 7021-8 ####[facility] LABORATORYCLIA [id number] [place] [address] [place] Nucleated RBC/100 WBC (Bld) [Ratio] 0.3 /100 WBC Normal [facility] Comment on above: Order Comment: Speci men Type: BLOOD SPECIMENOrdering Facility: [facility] Address: [address] [place] [address] Performed By: #### 5 7021-8 ####[facility] LABORATORYCLIA [id number] [address] [place] Platelet mean volume (Bld) [Entitic vol] 10.9 fL Normal 9.0-12.7 [facility] Comment on above: Order Comment: Speci men Type: BLOOD SPECIMENOrdering Facility: [facility] Address: [address] [place] [address] Performed By: #### 5 7021-8 ####[facility] LABORATORYCLIA [id number] [place] [address] [place] Platelets (Bld) [#/Vol] 93 10*3/uL Low 150-400 [facility] Comment on above: Order Comment: Speci men Type: BLOOD SPECIMENOrdering Facility: [facility] Address: [address] [place] [address] Result Comment: No c lot detected. Performed By: #### 5 7021-8 ####[facility] LABORATORYCLIA [id number] [address] [place] RBC (Bld) [#/Vol] 2.02 10*6/uL Low 4.20-6.00 [facility] Comment on above: Order Comment: Speci men Type: BLOOD SPECIMENOrdering Facility: [facility] Address: [address] [place] [address] Performed By: #### 5 7021-8 ####[facility] LABORATORYCLIA [id number] [place] [address] [place] WBC (Bld) [#/Vol] 6.35 10*3/uL Normal 3.70-11.00 [facility] Comment on above: Order Comment: Speci men Type: BLOOD SPECIMENOrdering Facility: [facility] Address: [address] [place] [address] Performed By: #### 5 7021-8 ####[facility] LABORATORYCLIA [id number] [address] [place] CNOVSPon 03-24-2024 CNOVSP Normal [facility] TYPE + SCREENon 03-24-2024 ABO B Normal [facility] Comment on above: Order Comment: Speci men Type: BLOOD SPECIMENOrdering Facility: [facility] Address: [address] [place] [address] Performed By: #### T SCR ####[facility] BLOOD BANKCLIA [id number] [address] Rh Nom (Bld) Positive Normal [facility] Comment on above: Order Comment: Speci men Type: BLOOD SPECIMENOrdering Facility: [facility] Address: [address] [place] [address] Performed By: #### T SCR ####[facility] BLOOD BANKCLIA [id number] [address] TYPE AND SCREEN EXPIRATION 03/27/2024 23:59 Normal [facility] Comment on above: Order Comment: Speci men Type: BLOOD SPECIMENOrdering Facility: [facility] Address: [address] [place] [address] Performed By: #### T SCR ####[facility] BLOOD BANKCLIA [id number] [address] CNOVSPon 03-13-2024 CNOVSP Normal [facility] CBC W Auto Differential pane l (Bld)on 03-11-2024 Basophils (Bld) [#/Vol] 0.03 10*3/uL Normal <0.11 [facility] Comment on above: Order Comment: Speci men Type: BLOOD SPECIMENOrdering Facility: [facility] Address: [address] [place] [address] Performed By: #### 5 7021-8 ####[facility] LABCLIA [id number] [address] Basophils/100 WBC (Bld) 0.5 % Normal [facility] Comment on above: Order Comment: Speci men Type: BLOOD SPECIMENOrdering Facility: [facility] Address: [address] [place] [address] Performed By: #### 5 7021-8 ####[facility] LABCLIA [id number] [place] [address] [facility] Differential cell count method Nom (Bld) Auto Normal [facility] Comment on above: Order Comment: Speci men Type: BLOOD SPECIMENOrdering Facility: [facility] Address: [address] [place] [address] Performed By: #### 5 7021-8 ####[facility] LABCLIA [id number] [place] [address] [facility] [place] Eosinophils (Bld) [#/Vol] 10*3/uL Normal <0.46 [facility] Comment on above: Order Comment: Speci men Type: BLOOD SPECIMENOrdering Facility: [facility] Address: [address] [place] [address] Performed By: #### 5 7021-8 ####[facility] LABCLIA [id number] [place] [address] [facility] Eosinophils/100 WBC (Bld) 0.2 % Normal [facility] Comment on above: Order Comment: Speci men Type: BLOOD SPECIMENOrdering Facility: [facility] Address: [address] [place] [address] Performed By: #### 5 7021-8 ####[facility] LABCLIA [id number] [place] [address] [facility] [place] Erythrocyte distribution width (RBC) [Ratio] 19.8 % High 11.5-15.0 [facility] Comment on above: Order Comment: Speci men Type: BLOOD SPECIMENOrdering Facility: [facility] Address: [address] [place] [address] Performed By: #### 5 7021-8 ####[facility] LABCLIA [id number] [place] [address] [facility] Hematocrit (Bld) [Volume fraction] 25.1 % Low 39.0-51.0 [facility] Comment on above: Order Comment: Speci men Type: BLOOD SPECIMENOrdering Facility: [facility] Address: [address] [place] [address] Performed By: #### 5 7021-8 ####[facility] LABCLIA [id number] [place] [address] [place] Hemoglobin (Bld) [Mass/Vol] 8.1 g/dL Low 13.0-17.0 [facility] Comment on above: Order Comment: Speci men Type: BLOOD SPECIMENOrdering Facility: [facility] Address: [address] [place] [address] Performed By: #### 5 7021-8 ####[facility] LABCLIA [id number] [facility] [place] [address] [place] Immature granulocytes (Bld) [#/Vol] 10*3/uL Normal <0.10 [facility] Comment on above: Order Comment: Speci men Type: BLOOD SPECIMENOrdering Facility: [facility] Address: [address] [place] [address] Performed By: #### 5 7021-8 ####[facility] LABCLIA [id number] [place] [address] [place] Immature granulocytes/100 WBC (Bld) 0.2 % Normal [facility] Comment on above: Order Comment: Speci men Type: BLOOD SPECIMENOrdering Facility: [facility] Address: [address] [place] [address] Performed By: #### 5 7021-8 ####[facility] LABCLIA [id number] [place] [address] [place] Lymphocytes (Bld) [#/Vol] 2.55 10*3/uL Normal 1.00-4.00 [facility] Comment on above: Order Comment: Speci men Type: BLOOD SPECIMENOrdering Facility: [facility] Address: [address] [place] [address] Performed By: #### 5 7021-8 ####[facility] LABCLIA [id number] [place] [address] [place] Lymphocytes/100 WBC (Bld) 39.4 % Normal [facility] Comment on above: Order Comment: Speci men Type: BLOOD SPECIMENOrdering Facility: [facility] Address: [address] [place] [address] Performed By: #### 5 7021-8 ####[facility] LABCLIA [id number] [place] [address] [place] [facility] MCH (RBC) [Entitic mass] 31.3 pg Normal 26.0-34.0 [facility] Comment on above: Order Comment: Speci men Type: BLOOD SPECIMENOrdering Facility: [facility] Address: [address] [place] [address] Performed By: #### 5 7021-8 ####[facility] LABCLIA [id number] [place] [address] [facility] MCHC (RBC) [Mass/Vol] 32.3 g/dL Normal 30.5-36.0 [facility] Comment on above: Order Comment: Speci men Type: BLOOD SPECIMENOrdering Facility: [facility] Address: [address] [place] [address] Performed By: #### 5 7021-8 ####[facility] LABCLIA [id number] [place] [address] [facility] [place] MCV (RBC) [Entitic vol] 96.9 fL Normal 80.0-100.0 [facility] Comment on above: Order Comment: Speci men Type: BLOOD SPECIMENOrdering Facility: [facility] Address: [address] [place] [address] Performed By: #### 5 7021-8 ####[facility] LABCLIA [id number] [place] [address] [facility] Monocytes (Bld) [#/Vol] 0.53 10*3/uL Normal <0.87 [facility] Comment on above: Order Comment: Speci men Type: BLOOD SPECIMENOrdering Facility: [facility] Address: [address] [place] [address] Performed By: #### 5 7021-8 ####[facility] LABCLIA [id number] [facility] [place] [address] [place] Monocytes/100 WBC (Bld) 8.2 % Normal [facility] Comment on above: Order Comment: Speci men Type: BLOOD SPECIMENOrdering Facility: [facility] Address: [address] [place] [address] Performed By: #### 5 7021-8 ####[facility] LABCLIA [id number] [facility] [place] [address] [place] Neutrophils (Bld) [#/Vol] 3.34 10*3/uL Normal 1.45-7.50 [facility] Hospital Comment on above: Order Comment: Speci men Type: BLOOD SPECIMENOrdering Facility: [facility] Address: [address] [place] [address] Performed By: #### 5 7021-8 ####[facility] LABCLIA [id number] [place] [address] [place] Neutrophils/100 WBC (Bld) 51.5 % Normal [facility] Comment on above: Order Comment: Speci men Type: BLOOD SPECIMENOrdering Facility: [facility] Address: [address] [place] [address] Performed By: #### 5 7021-8 ####[facility] LABCLIA [id number] [place] [address] [place] Nucleated RBC (Bld) [#/Vol] Normal [facility] Comment on above: Order Comment: Speci men Type: BLOOD SPECIMENOrdering Facility: [facility] Address: [address] [place] [address] Performed By: #### 5 7021-8 ####[facility] LABCLIA [id number] [place] [address] [place] Nucleated RBC/100 WBC (Bld) [Ratio] Normal [facility] Comment on above: Order Comment: Speci men Type: BLOOD SPECIMENOrdering Facility: [facility] Address: [address] [place] [address] Performed By: #### 5 7021-8 ####[facility] LABCLIA [id number] [facility] [place] [address] [place] Platelet mean volume (Bld) [Entitic vol] 11.7 fL Normal 9.0-12.7 [facility] Comment on above: Order Comment: Speci men Type: BLOOD SPECIMENOrdering Facility: [facility] Address: [address] [place] [address] Performed By: #### 5 7021-8 ####[facility] LABCLIA [id number] [place] [facility] [place] [address] [facility] [place] Platelets (Bld) [#/Vol] 86 10*3/uL Low 150-400 [facility] Comment on above: Order Comment: Speci men Type: BLOOD SPECIMENOrdering Facility: [facility] Address: [address] [place] [address] Result Comment: No c lot detected. Performed By: #### 5 7021-8 ####[facility] LABCLIA [id number] [facility] [place] [address] [place] RBC (Bld) [#/Vol] 2.59 10*6/uL Low 4.20-6.00 [facility] Comment on above: Order Comment: Speci men Type: BLOOD SPECIMENOrdering Facility: [facility] Address: [address] [place] [address] Performed By: #### 5 7021-8 ####[facility] LABCLIA [id number] [facility] [place] [address] [place] WBC (Bld) [#/Vol] 6.47 10*3/uL Normal 3.70-11.00 [facility] Comment on above: Order Comment: Speci men Type: BLOOD SPECIMENOrdering Facility: [facility] Address: [address] [place] [address] Performed By: #### 5 7021-8 ####[facility] LABCLIA [id number] [place] [address] [facility] Comprehensive metabolic 2000 panelon 03-11-2024 Albumin [Mass/Vol] 3.9 g/dL Normal 3.9-4.9 [facility] Comment on above: Order Comment: Speci men Type: BLOOD SPECIMENOrdering Facility: [facility] Address: [address] [place] [address] Performed By: #### 2 4323-8 ####[facility] LABCLIA [id number] [facility] [place] [address] [place] [facility] ALP [Catalytic activity/Vol] 74 U/L Normal 38-113 [facility] Comment on above: Order Comment: Speci men Type: BLOOD SPECIMENOrdering Facility: [facility] Address: [address] [place] [address] Performed By: #### 2 4323-8 ####[facility] LABCLIA [id number] [place] [address] [facility] ALT With P-5'-P [Catalytic activity/Vol] 16 U/L Normal 10-54 [facility] Comment on above: Order Comment: Speci men Type: BLOOD SPECIMENOrdering Facility: [facility] Address: [address] [place] [address] Performed By: #### 2 4323-8 ####[facility] LABCLIA [id number] [place] [address] [facility] Anion gap [Moles/Vol] 11 mmol/L Normal 8-15 [facility] Comment on above: Order Comment: Speci men Type: BLOOD SPECIMENOrdering Facility: [facility] Address: [address] [place] [address] Performed By: #### 2 4323-8 ####[facility] LABCLIA [id number] [place] [address] [facility] [place] AST With P-5'-P [Catalytic activity/Vol] 22 U/L Normal 14-40 [facility] Comment on above: Order Comment: Speci men Type: BLOOD SPECIMENOrdering Facility: [facility] Address: [address] [place] [address] Performed By: #### 2 4323-8 ####[facility] LABCLIA [id number] [place] [address] [place] Bilirubin [Mass/Vol] 0.2 mg/dL Normal 0.2-1.3 [facility] Comment on above: Order Comment: Speci men Type: BLOOD SPECIMENOrdering Facility: [facility] Address: [address] [place] [address] Performed By: #### 2 4323-8 ####[facility] LABCLIA [id number] [place] [address] [place] Calcium [Mass/Vol] 9.8 mg/dL Normal 8.5-10.2 [facility] Comment on above: Order Comment: Speci men Type: BLOOD SPECIMENOrdering Facility: [facility] Address: [address] [place] [address] Performed By: #### 2 4323-8 ####[facility] LABCLIA [id number] [place] [facility] [place] [address] [place] Chloride [Moles/Vol] 100 mmol/L Normal 98-107 [facility] Comment on above: Order Comment: Speci men Type: BLOOD SPECIMENOrdering Facility: [facility] Address: [address] [place] [address] Performed By: #### 2 4323-8 ####[facility] LABCLIA [id number] [place] [address] [place] CO2 [Moles/Vol] 22 mmol/L Normal 22-30 [facility] Comment on above: Order Comment: Speci men Type: BLOOD SPECIMENOrdering Facility: [facility] Address: [address] [place] [address] Performed By: #### 2 4323-8 ####[facility] LABCLIA [id number] [place] [address] [place] Creatinine [Mass/Vol] 0.90 mg/dL Normal 0.73-1.22 [facility] Comment on above: Order Comment: Mathew lindsey Type: BLOOD SPECIMENOrdering Facility: [facility] Address: [address] [place] [address] Performed By: #### 2 4323-8 ####[facility] LABCLIA [id number] [place] [address] [place] Creatinine and Glomerular filtration rate.predicted panel (S/P/Bld) 86 mL/min/1.73m??? Normal >=60 [facility] Comment on above: Order Comment: Mathew portillo Type: BLOOD SPECIMENOrdering Facility: [facility] Address: [address] [place] [address] Result Comment: Sharon mated Glomerular Filtration Rate [...] actual GFR. Performed By: #### 2 4323-8 ####[facility] LABCLIA [id number] [place] [address] [place] Glucose [Mass/Vol] 219 mg/dL High 74-99 [facility] Comment on above: Order Comment: Mayurmagdalena portillo Type: BLOOD SPECIMENOrdering Facility: [facility] Address: [address] [place] [address] Result Comment: The [place] Diabetes Association (ADA) provides guidance for cutoff [...] Standards of Medical Care in Diabetes 2016, [place] [employer]. Diabetes Care. 2016.39(Suppl 1). Performed By: #### 2 4323-8 ####[facility] LABCLIA [id number] [facility] [place] [address] [place] Potassium [Moles/Vol] 4.5 mmol/L Normal 3.7-5.1 [facility] Comment on above: Order Comment: Speci men Type: BLOOD SPECIMENOrdering Facility: [facility] Address: [address] [place] [address] Performed By: #### 2 4323-8 ####[facility] LABCLIA [id number] [facility] [place] [address] [place] Protein [Mass/Vol] 7.1 g/dL Normal 6.3-8.0 [facility] Comment on above: Order Comment: Speci men Type: BLOOD SPECIMENOrdering Facility: [facility] Address: [address] [place] [address] Performed By: #### 2 4323-8 ####[facility] LABCLIA [id number] [facility] [place] [address] [place] Sodium [Moles/Vol] 133 mmol/L Low 136-144 [facility] Comment on above: Order Comment: Speci men Type: BLOOD SPECIMENOrdering Facility: [facility] Address: [address] [place] [address] Performed By: #### 2 4323-8 ####[facility] LABCLIA [id number] [place] [address] [place] Urea nitrogen [Mass/Vol] 19 mg/dL Normal 9-24 [facility] Comment on above: Order Comment: Speci men Type: BLOOD SPECIMENOrdering Facility: [facility] Address: [address] [place] [address] Performed By: #### 2 4323-8 ####[facility] LABCLIA [id number] [facility] [place] [address] [place] TYPE + SCREENon 03-11-2024 ABO B Normal [facility] Comment on above: Order Comment: Speci men Type: BLOOD SPECIMENOrdering Facility: [facility] Address: [address] [place] [address] Performed By: #### T SCR ####[facility] BLOOD BANKCLIA [id number] [place] [id number] [facility] [place] Rh Nom (Bld) Positive Normal [facility] Comment on above: Order Comment: Speci men Type: BLOOD SPECIMENOrdering Facility: [facility] Address: [address] [place] [address] Performed By: #### T SCR ####[facility] BLOOD BANKCLIA [id number] [place] [id number] [place] [facility] TYPE AND SCREEN EXPIRATION 03/14/2024 23:59 Normal [facility] Comment on above: Order Comment: Speci men Type: BLOOD SPECIMENOrdering Facility: [facility] Address: [address] [place] [address] Performed By: #### T SCR ####[facility] BLOOD BANKCLIA [id number] [address] [place] CNPNon 03-09-2024 CNPN Normal [facility] Basic metabolic 2000 panelon 03-06-2024 Anion gap [Moles/Vol] 12 mmol/L Normal 8-15 [facility] Comment on above: Order Comment: Speci men Type: BLOOD SPECIMENOrdering Facility: [facility] Address: [address] [place] [address] Performed By: #### 1 9123-9, 18256-6 ####[facility] LABCLIA [id number] [place] [address] [place] Calcium [Mass/Vol] 9.0 mg/dL Normal 8.5-10.2 [facility] Comment on above: Order Comment: Speci men Type: BLOOD SPECIMENOrdering Facility: [facility] Address: [address] [place] [address] Performed By: #### 1 9123-9, 33789-4 ####[facility] LABCLIA [id number] [place] [address] [place] Chloride [Moles/Vol] 105 mmol/L Normal 98-107 [facility] Comment on above: Order Comment: Speci men Type: BLOOD SPECIMENOrdering Facility: [facility] Address: [address] [place] [address] Performed By: #### 1 9123-9, 97700-9 ####[facility] LABCLIA [id number] [place] [address] [place] CO2 [Moles/Vol] 21 mmol/L Low 22-30 [facility] Comment on above: Order Comment: Speci men Type: BLOOD SPECIMENOrdering Facility: [facility] Address: [address] [place] [address] Performed By: #### 1 9123-9, 68421-9 ####[facility] LABCLIA [id number] [place] [address] [place] Creatinine [Mass/Vol] 0.84 mg/dL Normal 0.73-1.22 [facility] Comment on above: Order Comment: Speci men Type: BLOOD SPECIMENOrdering Facility: [facility] Address: [address] [place] [address] Performed By: #### 1 9123-9, 79988-1 ####[facility] LABCLIA [id number] [place] [address] [facility] Creatinine and Glomerular filtration rate.predicted panel (S/P/Bld) 88 mL/min/1.73m??? Normal >=60 [facility] Comment on above: Order Comment: Speci men Type: BLOOD SPECIMENOrdering Facility: [facility] Address: [address] [place] [address] Result Comment: Sharon mated Glomerular Filtration Rate [...] actual GFR. Performed By: #### 1 9123-9, 09395-9 ####[facility] [employer] LABCLIA [id number] [place] [address] [place] Glucose [Mass/Vol] 216 mg/dL High 74-99 [facility] Comment on above: Order Comment: Speci men Type: BLOOD SPECIMENOrdering Facility: [facility] Address: [address] [place] [address] Result Comment: The [place] Diabetes Association (ADA) provides guidance for cutoff [...] Standards of Medical Care in Diabetes 2016, [place] [employer]. Diabetes Care. 2016.39(Suppl 1). Performed By: #### 1 9123-9, 66926-7 ####[facility] [employer] LABCLIA [id number] [place] [address] [place] Potassium [Moles/Vol] 4.2 mmol/L Normal 3.7-5.1 [facility] Comment on above: Order Comment: Speci men Type: BLOOD SPECIMENOrdering Facility: [facility] Address: [address] [place] [address] Performed By: #### 1 9123-9, 55971-6 ####[facility] LABCLIA [id number] [place] [address] [place] Sodium [Moles/Vol] 138 mmol/L Normal 136-144 [facility] Comment on above: Order Comment: Speci men Type: BLOOD SPECIMENOrdering Facility: [facility] Address: [address] [place], [place] [address] Performed By: #### 1 91239, 81665-9 ####[facility] LABCLIA [id number] [place] [address] [place] Urea nitrogen [Mass/Vol] 19 mg/dL Normal 9-24 [facility] Comment on above: Order Comment: Speci men Type: BLOOD SPECIMENOrdering Facility: [facility] Address: [address] [place] [address] Performed By: #### 1 9123-9, 54726-3 ####[facility] LABCLIA [id number] [place] [address] [facility] CBC panel Auto (Bld)on 03-06 Erythrocyte distribution width (RBC) [Ratio] 21.3 % High 11.5-15.0 [facility] Comment on above: Order Comment: Speci men Type: BLOOD SPECIMENOrdering Facility: [facility] Address: [address] [place] [address] Performed By: #### 5 8410-2 ####[facility] LABCLIA [id number] [place] [address] [place] [facility] Hematocrit (Bld) [Volume fraction] 25.5 % Low 39.0-51.0 [facility] Comment on above: Order Comment: Speci men Type: BLOOD SPECIMENOrdering Facility: [facility] Address: [address] [place] [address] Performed By: #### 5 8410-2 ####[facility] LABCLIA [id number] [place] [address] [place] Hemoglobin (Bld) [Mass/Vol] 8.5 g/dL Low 13.0-17.0 [facility] Comment on above: Order Comment: Speci men Type: BLOOD SPECIMENOrdering Facility: [facility] Address: [address] [place] [address] Performed By: #### 5 8410-2 ####[facility] LABCLIA [id number] [place] [address] [place] MCH (RBC) [Entitic mass] 31.5 pg Normal 26.0-34.0 [facility] Comment on above: Order Comment: Speci men Type: BLOOD SPECIMENOrdering Facility: [facility] Address: [address] [place] [address] Performed By: #### 5 8410-2 ####[facility] LABCLIA [id number] [place] [address] [place] MCHC (RBC) [Mass/Vol] 33.3 g/dL Normal 30.5-36.0 [facility] Comment on above: Order Comment: Speci men Type: BLOOD SPECIMENOrdering Facility: [facility] Address: [address] [place] [address] Performed By: #### 5 8410-2 ####[facility] LABCLIA [id number] [place] [address] [place] MCV (RBC) [Entitic vol] 94.4 fL Normal 80.0-100.0 [facility] Comment on above: Order Comment: Speci men Type: BLOOD SPECIMENOrdering Facility: [facility] Address: [address] [place] [address] Performed By: #### 5 8410-2 ####[facility] LABCLIA [id number] [place] [address] [facility] [place] Platelet mean volume (Bld) [Entitic vol] 10.3 fL Normal 9.0-12.7 [facility] Comment on above: Order Comment: Speci men Type: BLOOD SPECIMENOrdering Facility: [facility] Address: [address] [place] [address] Performed By: #### 5 8410-2 ####[facility] LABCLIA [id number] [place] [address] [facility] [place] Platelets (Bld) [#/Vol] 66 10*3/uL Low 150-400 [facility] Comment on above: Order Comment: Speci men Type: BLOOD SPECIMENOrdering Facility: [facility] Address: [address] [place] [address] Performed By: #### 5 8410-2 ####[facility] [place] LABCLIA [id number] [place] [address] [place] RBC (Bld) [#/Vol] 2.70 10*6/uL Low 4.20-6.00 [facility] Comment on above: Order Comment: Speci men Type: BLOOD SPECIMENOrdering Facility: [facility] Address: [address] [place] [address] Performed By: #### 5 8410-2 ####[facility] LABCLIA [id number] [place] [address] [place] WBC (Bld) [#/Vol] 5.48 10*3/uL Normal 3.70-11.00 [facility] Comment on above: Order Comment: Speci men Type: BLOOD SPECIMENOrdering Facility: [facility] Address: [address] [place] [address] Performed By: #### 5 8410-2 ####[facility] LABCLIA [id number] [facility] [place] [address] [place] Erythrocyte distribution width (RBC) [Ratio] 19.6 % High 11.5-15.0 [facility] Comment on above: Order Comment: Speci men Type: BLOOD SPECIMENOrdering Facility: [facility] Address: [address] [place] [address] Performed By: #### 5 8410-2 ####[facility] LABCLIA [id number] [facility] [place] [address] [place] Hematocrit (Bld) [Volume fraction] 17.5 % Low 39.0-51.0 [facility] Comment on above: Order Comment: Speci men Type: BLOOD SPECIMENOrdering Facility: [facility] Address: [address] [place] [address] Performed By: #### 5 8410-2 ####[facility] LABCLIA [id number] [facility] [place] [address] [facility] [place] Hemoglobin (Bld) [Mass/Vol] 5.8 g/dL Critically low 13.0-17.0 [facility] Comment on above: Order Comment: Speci men Type: BLOOD SPECIMENOrdering Facility: [facility] Address: [address] [place] [address] Result Comment: No c lot detected. Performed By: #### 5 8410-2 ####[facility] LABCLIA [id number] [place] [address] [facility] MCH (RBC) [Entitic mass] 34.3 pg High 26.0-34.0 [facility] Comment on above: Order Comment: Speci men Type: BLOOD SPECIMENOrdering Facility: [facility] Address: [address] [place] [address] Performed By: #### 5 8410-2 ####[facility] LABCLIA [id number] [place] [address] [place] [facility] MCHC (RBC) [Mass/Vol] 33.1 g/dL Normal 30.5-36.0 [facility] Comment on above: Order Comment: Speci men Type: BLOOD SPECIMENOrdering Facility: [facility] Address: [address] [place] [address] Performed By: #### 5 8410-2 ####[facility] LABCLIA [id number] [place] [address] [place] MCV (RBC) [Entitic vol] 103.6 fL High 80.0-100.0 [facility] Comment on above: Order Comment: Speci men Type: BLOOD SPECIMENOrdering Facility: [facility] Address: [address] [place] [address] Performed By: #### 5 8410-2 ####[facility] LABCLIA [id number] [place] [address] [facility] Platelet mean volume (Bld) [Entitic vol] 11.8 fL Normal 9.0-12.7 [facility] Comment on above: Order Comment: Speci men Type: BLOOD SPECIMENOrdering Facility: [facility] Address: [address] [place] [address] Performed By: #### 5 8410-2 ####[facility] [place] LABCLIA [id number] [facility] [place] [address] [facility] Platelets (Bld) [#/Vol] 68 10*3/uL Low 150-400 [facility] Comment on above: Order Comment: Speci men Type: BLOOD SPECIMENOrdering Facility: [facility] Address: [address] [place] [address] Performed By: #### 5 8410-2 ####[facility] LABCLIA [id number] [facility] [place] [address] [place] RBC (Bld) [#/Vol] 1.69 10*6/uL Low 4.20-6.00 [facility] Comment on above: Order Comment: Speci men Type: BLOOD SPECIMENOrdering Facility: [facility] Address: [address] [place] [address] Performed By: #### 5 8410-2 ####[facility] LABCLIA [id number] [place] [address] [facility] WBC (Bld) [#/Vol] 4.20 10*3/uL Normal 3.70-11.00 [facility] Comment on above: Order Comment: Speci men Type: BLOOD SPECIMENOrdering Facility: [facility] Address: [address] [place] [address] Performed By: #### 5 8410-2 ####[facility] LABCLIA [id number] [place] [address] [facility] CNDSon 03-06-2024 CNDS Normal [facility] Magnesium SerPl-mCncon 03-06 Magnesium [Mass/Vol] 1.7 mg/dL Normal 1.7-2.3 [facility] Comment on above: Order Comment: Speci men Type: BLOOD SPECIMENOrdering Facility: [facility] Address: [address] [place] [address] Performed By: #### 1 9123-9, 40890-8 ####[facility] [facility] LABCLIA [id number] [place] [address] [place] [facility] CBC panel Auto (Bld)on 03-05 Erythrocyte distribution width (RBC) [Ratio] 19.8 % High 11.5-15.0 [facility] Comment on above: Order Comment: Speci men Type: BLOOD SPECIMENOrdering Facility: [facility] Address: [address] [place] [address] Performed By: #### 5 8410-2 ####[facility] LABCLIA [id number] [place] [address] [facility] Hematocrit (Bld) [Volume fraction] 17.7 % Low 39.0-51.0 [facility] Comment on above: Order Comment: Speci men Type: BLOOD SPECIMENOrdering Facility: [facility] Address: [address] [place] [address] Performed By: #### 5 8410-2 ####[facility] LABIA [id number] [place] [id number] [facility] Hemoglobin (Bld) [Mass/Vol] 5.7 g/dL Critically low 13.0-17.0 [facility] Comment on above: Order Comment: Speci men Type: BLOOD SPECIMENOrdering Facility: [facility] Address: [address] [place] [address] Performed By: #### 5 8410-2 ####[facility] LABCLIA [id number] [place] [address] [place] MCH (RBC) [Entitic mass] 33.1 pg Normal 26.0-34.0 [facility] Comment on above: Order Comment: Speci men Type: BLOOD SPECIMENOrdering Facility: [facility] Address: [address] [place] [address] Performed By: #### 5 8410-2 ####[facility] LABCLIA [id number] [place] [address] [place] MCHC (RBC) [Mass/Vol] 32.2 g/dL Normal 30.5-36.0 [facility] Comment on above: Order Comment: Speci men Type: BLOOD SPECIMENOrdering Facility: [facility] Address: [address] [place] [address] Performed By: #### 5 8410-2 ####[facility] LABCLIA [id number] [place] [address] [place] MCV (RBC) [Entitic vol] 102.9 fL High 80.0-100.0 [facility] Comment on above: Order Comment: Speci men Type: BLOOD SPECIMENOrdering Facility: [facility] Address: [address] [place] [address] Performed By: #### 5 8410-2 ####[facility] LABCLIA [id number] [place] [address] [facility] Platelet mean volume (Bld) [Entitic vol] 11.5 fL Normal 9.0-12.7 [facility] Comment on above: Order Comment: Speci men Type: BLOOD SPECIMENOrdering Facility: [facility] Address: [address] [place] [address] Performed By: #### 5 8410-2 ####[facility] LABCLIA [id number] [place] [address] [place] Platelets (Bld) [#/Vol] 69 10*3/uL Low 150-400 [facility] Comment on above: Order Comment: Speci men Type: BLOOD SPECIMENOrdering Facility: [facility] Address: [address] [place] [address] Result Comment: No c lot detected. Performed By: #### 5 8410-2 ####[facility] LABCLIA [id number] [place] [address] [facility] RBC (Bld) [#/Vol] 1.72 10*6/uL Low 4.20-6.00 [facility] Comment on above: Order Comment: Speci men Type: BLOOD SPECIMENOrdering Facility: [facility] Address: [address] [place] [address] Performed By: #### 5 8410-2 ####[facility] LABCLIA [id number] [facility] [facility] [place] [address] [facility] WBC (Bld) [#/Vol] 4.11 10*3/uL Normal 3.70-11.00 [facility] Comment on above: Order Comment: Speci men Type: BLOOD SPECIMENOrdering Facility: [facility] Address: [address] [place] [address] Performed By: #### 5 8410-2 ####[facility] LABCLIA [id number] [facility] [place] [address] [facility] Comprehensive metabolic 2000 panelon 03-05-2024 Albumin [Mass/Vol] 3.7 g/dL Low 3.9-4.9 [facility] Comment on above: Order Comment: Speci men Type: BLOOD SPECIMENOrdering Facility: [facility] Address: [address] [place] [address] Performed By: #### 2 4323-8 ####[facility] LABCLIA [id number] [facility] [place] [address] [facility] [place] ALP [Catalytic activity/Vol] 70 U/L Normal 38-113 [facility] Comment on above: Order Comment: Speci men Type: BLOOD SPECIMENOrdering Facility: [facility] Address: [address] [place] [address] Performed By: #### 2 4323-8 ####[facility] LABCLIA [id number] [facility] [place] [address] [facility] ALT With P-5'-P [Catalytic activity/Vol] 14 U/L Normal 10-54 [facility] Comment on above: Order Comment: Speci men Type: BLOOD SPECIMENOrdering Facility: [facility] Address: [address] [place] [address] Performed By: #### 2 4323-8 ####[facility] LABCLIA [id number] [facility] [place] [address] [facility] Anion gap [Moles/Vol] 15 mmol/L Normal 8-15 [facility] Comment on above: Order Comment: Speci men Type: BLOOD SPECIMENOrdering Facility: [facility] Address: [address] [place] [address] Performed By: #### 2 4323-8 ####[facility] LABCLIA [id number] [place] [address] [place] AST With P-5'-P [Catalytic activity/Vol] 17 U/L Normal 14-40 [facility] Comment on above: Order Comment: Speci men Type: BLOOD SPECIMENOrdering Facility: [facility] Address: [address] [place] [address] Performed By: #### 2 4323-8 ####[facility] LABCLIA [id number] [facility] [place] [address] [place] Bilirubin [Mass/Vol] 0.2 mg/dL Normal 0.2-1.3 [facility] Comment on above: Order Comment: Speci men Type: BLOOD SPECIMENOrdering Facility: [facility] Address: [address] [place] [address] Performed By: #### 2 4323-8 ####[facility] LABCLIA [id number] [facility] [place] [address] [place] Calcium [Mass/Vol] 9.2 mg/dL Normal 8.5-10.2 [facility] Comment on above: Order Comment: Speci men Type: BLOOD SPECIMENOrdering Facility: [facility] Address: [address] [place] [address] Performed By: #### 2 4323-8 ####[facility] LABCLIA [id number] [facility] [place] [address] [place] Chloride [Moles/Vol] 100 mmol/L Normal 98-107 [facility] Comment on above: Order Comment: Speci men Type: BLOOD SPECIMENOrdering Facility: [facility] Address: [address] [place] [address] Performed By: #### 2 4323-8 ####[facility] LABCLIA [id number] [place] [address] [place] CO2 [Moles/Vol] 20 mmol/L Low 22-30 [facility] Comment on above: Order Comment: Speci lindsey Type: BLOOD SPECIMENOrdering Facility: [facility] Address: [address] [place] [address] Performed By: #### 2 4323-8 ####[facility] LABCLIA [id number] [place] [address] [place] Creatinine [Mass/Vol] 0.87 mg/dL Normal 0.73-1.22 [facility] Comment on above: Order Comment: Speci men Type: BLOOD SPECIMENOrdering Facility: [facility] Address: [address] [place] [address] Performed By: #### 2 4323-8 ####[facility] LABCLIA [id number] [place] [address] [facility] Creatinine and Glomerular filtration rate.predicted panel (S/P/Bld) 87 mL/min/1.73m??? Normal >=60 [facility] Comment on above: Order Comment: Speci men Type: BLOOD SPECIMENOrdering Facility: [facility] Address: [address] [place] [address] Result Comment: Sharon mated Glomerular Filtration Rate [...] actual GFR. Performed By: #### 2 4323-8 ####[facility] LABCLIA [id number] [place] [address] [place] Glucose [Mass/Vol] 255 mg/dL High 74-99 [facility] Comment on above: Order Comment: Speci men Type: BLOOD SPECIMENOrdering Facility: [facility] Address: [address] [place] [address] Result Comment: The [place] [employer] (ADA) provides guidance for cutoff [...] Standards of Medical Care in Diabetes 2016, [place] [employer]. Diabetes Care. 2016.39(Suppl 1). Performed By: #### 2 4323-8 ####[facility] LABCLIA [id number] [place] [address] [place] Potassium [Moles/Vol] 4.2 mmol/L Normal 3.7-5.1 [facility] Comment on above: Order Comment: Mathew portillo Type: BLOOD SPECIMENOrdering Facility: [facility] Address: [address] [place] [address] Performed By: #### 2 4323-8 ####[facility] LABCLIA [id number] [place] [address] [place] Protein [Mass/Vol] 6.6 g/dL Normal 6.3-8.0 [facility] Comment on above: Order Comment: Mathew portillo Type: BLOOD SPECIMENOrdering Facility: [facility] Address: [address] [place] [address] Performed By: #### 2 4323-8 ####[facility] LABCLIA [id number] [place] [address] [place] Sodium [Moles/Vol] 135 mmol/L Low 136-144 [facility] Comment on above: Order Comment: Mathew portillo Type: BLOOD SPECIMENOrdering Facility: [facility] Address: [address] [place] [address] Performed By: #### 2 4323-8 ####[facility] LABCLIA [id number] [place] [address] [place] Urea nitrogen [Mass/Vol] 22 mg/dL Normal 9-24 [facility] Comment on above: Order Comment: Speci men Type: BLOOD SPECIMENOrdering Facility: [facility] Address: [address] [place] [address] Performed By: #### 2 4323-8 ####[facility] [place] LABCLIA [id number] [place] [id number] [facility] ED NOTEon 03-05-2024 ED NOTE HNO ID: [id number] Author: COLLEEN HUIZAR, DERIC Service: Emergency Medicine Author Type: Registered Nurse Type: ED Notes Filed: 03/05/2024 17:35 Note Text: Report given to Mireya LEOS Normal [facility] ED NOTE HNO ID: [id number] Author: KEVIN JOYA RN Service: ? Author Type: Registered Nurse Type: ED Notes Filed: 03/05/2024 17:24 Note Text: Diabetic meal tray ordered Normal [facility] ED NOTE Normal [facility] ED PROV NOTEon 03-05-2024 ED PROV NOTE Normal [facility] HISTORY PHYSICALon HISTORY PHYSICAL Normal [facility] TYPE + SCREENon 03-05-2024 ABO B Normal [facility] Comment on above: Order Comment: Speci men Type: BLOOD SPECIMENOrdering Facility: [facility] Address: [address] [place] [address] Performed By: #### T SCR ####[facility] BLOOD BANKCLIA [id number] [address] [place] [address] Rh Nom (Bld) Positive Normal [facility] Comment on above: Order Comment: Speci men Type: BLOOD SPECIMENOrdering Facility: [facility] Address: [address] [place] [address] Performed By: #### T SCR ####[facility] BLOOD BANKCLIA [id number] [place] TYPE AND SCREEN EXPIRATION 03/08/2024 23:59 Normal [facility] Comment on above: Order Comment: Speci men Type: BLOOD SPECIMENOrdering Facility: [facility] Address: [address] [place] [address] Performed By: #### T SCR ####[facility] BLOOD BANKCLIA [id number] [address] STATES OF [facility] CBC W Auto Differential pane l (Bld)on 02-11-2024 Basophils (Bld) [#/Vol] 10*3/uL Normal <0.11 [facility] Comment on above: Order Comment: Speci men Type: BLOOD SPECIMENOrdering Facility: [facility] Address: [address] [place] [address] Performed By: #### 5 7021-8 ####[facility] [place] LABCLIA [id number] [place] [id number] [place] Basophils/100 WBC (Bld) 0.4 % Normal [facility] Comment on above: Order Comment: Speci men Type: BLOOD SPECIMENOrdering Facility: [facility] Address: [address] [place] [address] Performed By: #### 5 7021-8 ####[facility] LABCLIA [id number] [place] [id number] [place] [facility] Differential cell count method Nom (Bld) Auto Normal [facility] Comment on above: Order Comment: Speci men Type: BLOOD SPECIMENOrdering Facility: [facility] Address: [address] [place] [address] Performed By: #### 5 7021-8 ####[facility] [place] LABCLIA [id number] [place] [address] [place] Eosinophils (Bld) [#/Vol] 10*3/uL Normal <0.46 [facility] Comment on above: Order Comment: Speci men Type: BLOOD SPECIMENOrdering Facility: [facility] Address: [address] [place] [address] Performed By: #### 5 7021-8 ####[facility] [place] LABCLIA [id number] [place] [address] [place] Eosinophils/100 WBC (Bld) 0.2 % Normal [facility] Comment on above: Order Comment: Speci men Type: BLOOD SPECIMENOrdering Facility: [facility] Address: [address] [place] [address] Performed By: #### 5 7021-8 ####[facility] [place] LABCLIA [id number] [place] [address] [place] Erythrocyte distribution width (RBC) [Ratio] 21.2 % High 11.5-15.0 [facility] Comment on above: Order Comment: Speci men Type: BLOOD SPECIMENOrdering Facility: [facility] Address: [address] [place] [address] Performed By: #### 5 7021-8 ####[facility] LABCLIA [id number] [place] [address] [place] Hematocrit (Bld) [Volume fraction] 21.1 % Low 39.0-51.0 [facility] Comment on above: Order Comment: Speci men Type: BLOOD SPECIMENOrdering Facility: [facility] Address: [address] [place] [address] Performed By: #### 5 7021-8 ####[facility] LABCLIA [id number] [place] [address] [place] Hemoglobin (Bld) [Mass/Vol] 7.2 g/dL Low 13.0-17.0 [facility] Comment on above: Order Comment: Speci men Type: BLOOD SPECIMENOrdering Facility: [facility] Address: [address] [place] [address] Performed By: #### 5 7021-8 ####[facility] [place] LABCLIA [id number] [place] [address] [place] Immature granulocytes (Bld) [#/Vol] 10*3/uL Normal <0.10 [facility] Comment on above: Order Comment: Speci men Type: BLOOD SPECIMENOrdering Facility: [facility] Address: [address] [place] [address] Performed By: #### 5 7021-8 ####[facility] [place] LABCLIA [id number] [place] [address] [facility] Immature granulocytes/100 WBC (Bld) 0.0 % Normal [facility] Comment on above: Order Comment: Speci men Type: BLOOD SPECIMENOrdering Facility: [facility] Address: [address] [place] [address] Performed By: #### 5 7021-8 ####[facility] [place] LABCLIA [id number] [place] [address] [place] Lymphocytes (Bld) [#/Vol] 1.79 10*3/uL Normal 1.00-4.00 [facility] Comment on above: Order Comment: Speci men Type: BLOOD SPECIMENOrdering Facility: [facility] Address: [address] [place] [address] Performed By: #### 5 7021-8 ####[facility] LABCLIA [id number] [place] [id number] [facility] Lymphocytes/100 WBC (Bld) 33.1 % Normal [facility] Comment on above: Order Comment: Speci men Type: BLOOD SPECIMENOrdering Facility: [facility] Address: [address] [place] [address] Performed By: #### 5 7021-8 ####[facility] LABCLIA [id number] [place] [address] [place] MCH (RBC) [Entitic mass] 36.7 pg High 26.0-34.0 [facility] Comment on above: Order Comment: Speci men Type: BLOOD SPECIMENOrdering Facility: [facility] Address: [address] [place] [address] Performed By: #### 5 7021-8 ####[facility] [place] LABCLIA [id number] [place] [address] [place] MCHC (RBC) [Mass/Vol] 34.1 g/dL Normal 30.5-36.0 [facility] Comment on above: Order Comment: Speci men Type: BLOOD SPECIMENOrdering Facility: [facility] Address: [address] [place] [address] Performed By: #### 5 7021-8 ####[facility] [place] LABCLIA [id number] [place] [address] [place] MCV (RBC) [Entitic vol] 107.7 fL High 80.0-100.0 [facility] Comment on above: Order Comment: Speci men Type: BLOOD SPECIMENOrdering Facility: [facility] Address: [address] [place] [address] Performed By: #### 5 7021-8 ####[facility] [place] LABCLIA [id number] [place] [address] [place] Monocytes (Bld) [#/Vol] 0.34 10*3/uL Normal <0.87 [facility] Comment on above: Order Comment: Speci men Type: BLOOD SPECIMENOrdering Facility: [facility] Address: [address] [place] [address] Performed By: #### 5 7021-8 ####[facility] LABCLIA [id number] [place] [address] [place] Monocytes/100 WBC (Bld) 6.3 % Normal [facility] Comment on above: Order Comment: Speci men Type: BLOOD SPECIMENOrdering Facility: [facility] Address: [address] [place] [address] Performed By: #### 5 7021-8 ####[facility] [place] LABCLIA [id number] [place] [address] [place] Neutrophils (Bld) [#/Vol] 3.24 10*3/uL Normal 1.45-7.50 [facility] Comment on above: Order Comment: Speci men Type: BLOOD SPECIMENOrdering Facility: [facility] Address: [address] [place] [address] Performed By: #### 5 7021-8 ####[facility] [place] LABCLIA [id number] [place] [address] [place] Neutrophils/100 WBC (Bld) 60.0 % Normal [facility] Comment on above: Order Comment: Speci men Type: BLOOD SPECIMENOrdering Facility: [facility] Address: [address] [place] [address] Performed By: #### 5 7021-8 ####[facility] [place] LABCLIA [id number] [place] [address] [place] Nucleated RBC (Bld) [#/Vol] Normal [facility] Comment on above: Order Comment: Speci men Type: BLOOD SPECIMENOrdering Facility: [facility] Address: [address] [place] [address] Performed By: #### 5 7021-8 ####[facility] [place] LABCLIA [id number] [facility] [place] [address] [place] Nucleated RBC/100 WBC (Bld) [Ratio] Normal [facility] Comment on above: Order Comment: Speci men Type: BLOOD SPECIMENOrdering Facility: [facility] Address: [address] [place] [address] Performed By: #### 5 7021-8 ####[facility] [place] LABCLIA [id number] [facility] [place] [address] [place] Platelet mean volume (Bld) [Entitic vol] 11.4 fL Normal 9.0-12.7 [facility] Comment on above: Order Comment: Speci men Type: BLOOD SPECIMENOrdering Facility: [facility] Address: [address] [place] [address] Performed By: #### 5 7021-8 ####[facility] [place] LABCLIA [id number] [facility] [place] [address] [place] Platelets (Bld) [#/Vol] 60 10*3/uL Low 150-400 [facility] Comment on above: Order Comment: Speci men Type: BLOOD SPECIMENOrdering Facility: [facility] Address: [address], [place] [address] Result Comment: No c lot detected. Performed By: #### 5 7021-8 ####[facility] [place] LABCLIA [id number] [facility] [facility] [place] [address] [facility] RBC (Bld) [#/Vol] 1.96 10*6/uL Low 4.20-6.00 [facility] Comment on above: Order Comment: Speci men Type: BLOOD SPECIMENOrdering Facility: [facility] Address: [address] [place] [address] Performed By: #### 5 7021-8 ####[facility] [place] LABCLIA [id number] [facility] [place] [address] [facility] WBC (Bld) [#/Vol] 5.40 10*3/uL Normal 3.70-11.00 [facility] Comment on above: Order Comment: Speci men Type: BLOOD SPECIMENOrdering Facility: [facility] Address: [address] [place] [address] Performed By: #### 5 7021-8 ####[facility] LABCLIA [id number] [place] [address] [facility] Comprehensive metabolic 2000 panelon 02-11-2024 Albumin [Mass/Vol] 3.7 g/dL Low 3.9-4.9 [facility] Comment on above: Order Comment: Speci men Type: BLOOD SPECIMENOrdering Facility: [facility] Address: [address] [place] [address] Performed By: #### 2 4323-8 ####[facility] [place] LABCLIA [id number] [facility] [place] [address] [facility] ALP [Catalytic activity/Vol] 73 U/L Normal 38-113 [facility] Comment on above: Order Comment: Speci men Type: BLOOD SPECIMENOrdering Facility: [facility] Address: [address] [place], [place] [address] Performed By: #### 2 4323-8 ####[facility] [place] LABCLIA [id number] [facility] [place] [address] [place] ALT With P-5'-P [Catalytic activity/Vol] 16 U/L Normal 10-54 [facility] Comment on above: Order Comment: Speci men Type: BLOOD SPECIMENOrdering Facility: [facility] Address: [address] [place] [address] Performed By: #### 2 4323-8 ####[facility] [place] LABCLIA [id number] [place] [address] [place] Anion gap [Moles/Vol] 11 mmol/L Normal 8-15 [facility] Comment on above: Order Comment: Speci men Type: BLOOD SPECIMENOrdering Facility: [facility] Address: [address] [place] [address] Performed By: #### 2 4323-8 ####[facility] [place] LABCLIA [id number] [place] [address] [place] AST With P-5'-P [Catalytic activity/Vol] 20 U/L Normal 14-40 [facility] Comment on above: Order Comment: Speci men Type: BLOOD SPECIMENOrdering Facility: [facility] Address: [address] [place] [address] Performed By: #### 2 4323-8 ####[facility] [place] LABCLIA [id number] [place] [address] [place] Bilirubin [Mass/Vol] 0.2 mg/dL Normal 0.2-1.3 [facility] Comment on above: Order Comment: Speci men Type: BLOOD SPECIMENOrdering Facility: [facility] Address: [address] [place] [address] Performed By: #### 2 4323-8 ####[facility] [place] LABCLIA [id number] [facility] [place] [address] [place] Calcium [Mass/Vol] 9.2 mg/dL Normal 8.5-10.2 [facility] Comment on above: Order Comment: Speci men Type: BLOOD SPECIMENOrdering Facility: [facility] Address: [address] [place] [address] Performed By: #### 2 4323-8 ####[facility] LABCLIA [id number] [place] [address] [place] Chloride [Moles/Vol] 102 mmol/L Normal 98-107 [facility] Comment on above: Order Comment: Speci men Type: BLOOD SPECIMENOrdering Facility: [facility] Address: [address] [place] [address] Performed By: #### 2 4323-8 ####[facility] LABCLIA [id number] [place] [address] [place] CO2 [Moles/Vol] 24 mmol/L Normal 22-30 [facility] Comment on above: Order Comment: Speci men Type: BLOOD SPECIMENOrdering Facility: [facility] Address: [address] [place] [address] Performed By: #### 2 4323-8 ####[facility] LABCLIA [id number] [place] [address] [place] Creatinine [Mass/Vol] 0.84 mg/dL Normal 0.73-1.22 [facility] Comment on above: Order Comment: Speci men Type: BLOOD SPECIMENOrdering Facility: [facility] Address: [address] [place] [address] Performed By: #### 2 4323-8 ####[facility] LABCLIA [id number] [place] [address] [facility] Creatinine and Glomerular filtration rate.predicted panel (S/P/Bld) 88 mL/min/1.73m??? Normal >=60 [facility] Comment on above: Order Comment: Speci men Type: BLOOD SPECIMENOrdering Facility: [facility] Address: [address] [place] [address] Result Comment: Sharon mated Glomerular Filtration Rate [...] actual GFR. Performed By: #### 2 4323-8 ####[facility] LABCLIA [id number] [place] [address] [place] Glucose [Mass/Vol] 230 mg/dL High 74-99 [facility] Comment on above: Order Comment: Mathew portillo Type: BLOOD SPECIMENOrdering Facility: [facility] Address: [address] [place] [address] Result Comment: The [place] Diabetes Association (ADA) provides guidance for cutoff [...] Standards of Medical Care in Diabetes 2016, [place] [employer]. Diabetes Care. 2016.39(Suppl 1). Performed By: #### 2 4323-8 ####[facility] LABCLIA [id number] [place] [address] [place] Potassium [Moles/Vol] 4.3 mmol/L Normal 3.7-5.1 [facility] Comment on above: Order Comment: Mathew portillo Type: BLOOD SPECIMENOrdering Facility: [facility] Address: [address] [id number] Performed By: #### 2 4323-8 ####[facility] LABCLIA [id number] [place] [address] [place] Protein [Mass/Vol] 6.4 g/dL Normal 6.3-8.0 [facility] Comment on above: Order Comment: Mathew portillo Type: BLOOD SPECIMENOrdering Facility: [facility] Address: [address] [place], [place] [id number] Performed By: #### 2 4323-8 ####[facility] [place] LABCLIA [id number] [place] [address] [place] Sodium [Moles/Vol] 137 mmol/L Normal 136-144 [facility] Comment on above: Order Comment: Speci men Type: BLOOD SPECIMENOrdering Facility: [facility] Address: [address] [place] [address] Performed By: #### 2 4323-8 ####[facility] [place] LABCLIA [id number] [place] [address] [place] [facility] Urea nitrogen [Mass/Vol] 17 mg/dL Normal 9-24 [facility] Comment on above: Order Comment: Speci men Type: BLOOD SPECIMENOrdering Facility: [facility] Address: [address] [place] [address] Performed By: #### 2 4323-8 ####[facility] [place] LABCLIA [id number] [address] TYPE + SCREENon 02-11-2024 ABO B Normal [facility] Comment on above: Order Comment: Speci men Type: BLOOD SPECIMENOrdering Facility: [facility] Address: [address] [place] [address] Performed By: #### T SCR ####[facility] BLOOD BANKCLIA [id number] [address] Rh Nom (Bld) Positive Normal [facility] Comment on above: Order Comment: Speci men Type: BLOOD SPECIMENOrdering Facility: [facility] Address: [address] [place] [address] Performed By: #### T SCR ####[facility] BLOOD BANKCLIA [id number] [address] TYPE AND SCREEN EXPIRATION 02/14/2024 23:59 Normal [facility] Comment on above: Order Comment: Speci men Type: BLOOD SPECIMENOrdering Facility: [facility] Address: [address] [place] [address] Performed By: #### T SCR ####[facility] BLOOD BANKCLIA [id number] [place] [address] [place] CBC W Auto Differential pane l (Bld)on 02-07-2024 Basophils (Bld) [#/Vol] [facility] Basophils/100 WBC (Bld) 0.4 % [facility] Differential cell count method Nom (Bld) Auto [facility] Eosinophils (Bld) [#/Vol] [facility] Eosinophils/100 WBC (Bld) 0.2 % [facility] Erythrocyte distribution width (RBC) [Ratio] 21.1 % High 11.5 - 15.0 % [facility] Hematocrit (Bld) [Volume fraction] 19.6 % Low 39.0 - 51.0 % [facility] Hemoglobin (Bld) [Mass/Vol] 6.6 g/dL Low 13.0 - 17.0 g/dL [facility] Immature granulocytes (Bld) [#/Vol] [facility] Immature granulocytes/100 WBC (Bld) 0.4 % [facility] Interpretation and review of laboratory results Abnormal [facility] Lymphocytes (Bld) [#/Vol] 1.56 10*3/uL [facility] Lymphocytes/100 WBC (Bld) 31.5 % [facility] MCH (RBC) [Entitic mass] 37.1 pg High 26.0 - 34.0 pg [facility] MCHC (RBC) [Mass/Vol] 33.7 g/dL 30.5 - 36.0 g/dL [facility] MCV (RBC) [Entitic vol] 110.1 fL High 80.0 - 100.0 fL [facility] Monocytes (Bld) [#/Vol] 0.32 10*3/uL [facility] Monocytes/100 WBC (Bld) 6.5 % [facility] Neutrophils (Bld) [#/Vol] 3.03 10*3/uL [facility] Neutrophils/100 WBC (Bld) 61.0 % [facility] Nucleated RBC (Bld) [#/Vol] [facility] Nucleated RBC/100 WBC (Bld) [Ratio] 0.0 % /100 WBC [facility] Platelet mean volume (Bld) [Entitic vol] 12.1 fL 9.0 - 12.7 fL [facility] Platelets (Bld) [#/Vol] 74 10*3/uL Low [facility] Comment on above: No clot detected. RBC (Bld) [#/Vol] 1.78 10*6/uL Low 4.20 - 6.0 0 m/uL [facility] WBC (Bld) [#/Vol] 4.96 10*3/uL [facility] Basophils (Bld) [#/Vol] 10*3/uL Normal <0.11 [facility] Comment on above: Order Comment: Speci men Type: BLOOD SPECIMENOrdering Facility: [facility] Address: [address] [place] [address] Performed By: #### 5 7021-8 ####[facility]ATORYCLIA [id number] [address] [place] Basophils/100 WBC (Bld) 0.4 % Normal [facility] Comment on above: Order Comment: Speci men Type: BLOOD SPECIMENOrdering Facility: [facility] Address: [address] [place] [address] Performed By: #### 5 7021-8 ####[facility] LABORATORYCLIA [id number] [address] [place] Differential cell count method Nom (Bld) Auto Normal [facility] Comment on above: Order Comment: Speci men Type: BLOOD SPECIMENOrdering Facility: [facility] Address: [address] [place] [address] Performed By: #### 5 7021-8 ####[facility]ORATORYCLIA [id number] [address] [place] Eosinophils (Bld) [#/Vol] 10*3/uL Normal <0.46 [facility] Comment on above: Order Comment: Speci men Type: BLOOD SPECIMENOrdering Facility: [facility] Address: [address] [place] [address] Performed By: #### 5 7021-8 ####[facility] LABORATORYCLIA [id number] [address] [place] Eosinophils/100 WBC (Bld) 0.2 % Normal [facility] Comment on above: Order Comment: Speci men Type: BLOOD SPECIMENOrdering Facility: [facility] Address: [address] [place] [address] Performed By: #### 5 7021-8 ####[facility] LABORATORYCLIA [id number] [address] [place] Erythrocyte distribution width (RBC) [Ratio] 21.1 % High 11.5-15.0 [facility] Comment on above: Order Comment: Speci men Type: BLOOD SPECIMENOrdering Facility: [facility] Address: [address] [place] [address] Performed By: #### 5 7021-8 ####[facility] LABORATORYCLIA [id number] [address] [place] Hematocrit (Bld) [Volume fraction] 19.6 % Low 39.0-51.0 [facility] Comment on above: Order Comment: Speci men Type: BLOOD SPECIMENOrdering Facility: [facility] Address: [address] [place] [address] Performed By: #### 5 7021-8 ####[facility] LABORATORYCLIA [id number] [address] [place] Hemoglobin (Bld) [Mass/Vol] 6.6 g/dL Low 13.0-17.0 [facility] Comment on above: Order Comment: Speci men Type: BLOOD SPECIMENOrdering Facility: [facility] Address: [address] [place] [address] Performed By: #### 5 7021-8 ####[facility] LABORATORYCLIA [id number] [address] [place] Immature granulocytes (Bld) [#/Vol] 10*3/uL Normal <0.10 [facility] Comment on above: Order Comment: Speci men Type: BLOOD SPECIMENOrdering Facility: [facility] Address: [address] [place] [address] Performed By: #### 5 7021-8 ####[facility] LABORATORYCLIA [id number] [address] Immature granulocytes/100 WBC (Bld) 0.4 % Normal [facility] Comment on above: Order Comment: Speci men Type: BLOOD SPECIMENOrdering Facility: [facility] Address: [address] [place] [address] Performed By: #### 5 7021-8 ####[facility] LABORATORYCLIA [id number] [place] [address] [place] Lymphocytes (Bld) [#/Vol] 1.56 10*3/uL Normal 1.00-4.00 [facility] Comment on above: Order Comment: Speci men Type: BLOOD SPECIMENOrdering Facility: [facility] Address: [address] [place] [address] Performed By: #### 5 7021-8 ####[facility] LABORATORYCLIA [id number] [address] Lymphocytes/100 WBC (Bld) 31.5 % Normal [facility] Comment on above: Order Comment: Speci men Type: BLOOD SPECIMENOrdering Facility: [facility] Address: [address] [place] [address] Performed By: #### 5 7021-8 ####[facility] LABORATORYCLIA [id number] [address] [place] MCH (RBC) [Entitic mass] 37.1 pg High 26.0-34.0 [facility] Comment on above: Order Comment: Speci men Type: BLOOD SPECIMENOrdering Facility: [facility] Address: [address] [place] [address] Performed By: #### 5 7021-8 ####[facility] LABORATORYCLIA [id number] [address] [place] MCHC (RBC) [Mass/Vol] 33.7 g/dL Normal 30.5-36.0 [facility] Comment on above: Order Comment: Speci men Type: BLOOD SPECIMENOrdering Facility: [facility] Address: [address] [place] [address] Performed By: #### 5 7021-8 ####[facility] LABORATORYCLIA [id number] [place] [address] [place] MCV (RBC) [Entitic vol] 110.1 fL High 80.0-100.0 [facility] Comment on above: Order Comment: Speci men Type: BLOOD SPECIMENOrdering Facility: [facility] Address: [address] [place] [address] Performed By: #### 5 7021-8 ####[facility] LABORATORYCLIA [id number] [place] [address] [place] Monocytes (Bld) [#/Vol] 0.32 10*3/uL Normal <0.87 [facility] Comment on above: Order Comment: Speci men Type: BLOOD SPECIMENOrdering Facility: [facility] Address: [address] [place] [address] Performed By: #### 5 7021-8 ####[facility] LABORATORYCLIA [id number] [address] [place] Monocytes/100 WBC (Bld) 6.5 % Normal [facility] Comment on above: Order Comment: Speci men Type: BLOOD SPECIMENOrdering Facility: [facility] Address: [address] [place] [address] Performed By: #### 5 7021-8 ####[facility] LABORATORYCLIA [id number] [place] [address] [place] Neutrophils (Bld) [#/Vol] 3.03 10*3/uL Normal 1.45-7.50 [facility] Comment on above: Order Comment: Speci men Type: BLOOD SPECIMENOrdering Facility: [facility] Address: [address] [place] [address] Performed By: #### 5 7021-8 ####[facility] LABORATORYCLIA [id number] [address] [place] Neutrophils/100 WBC (Bld) 61.0 % Normal [facility] Comment on above: Order Comment: Speci men Type: BLOOD SPECIMENOrdering Facility: [facility] Address: [address] [place] [address] Performed By: #### 5 7021-8 ####[facility] LABORATORYCLIA [id number] [address] [place] Nucleated RBC (Bld) [#/Vol] 10*3/uL Normal <0.01 [facility] Comment on above: Order Comment: Speci men Type: BLOOD SPECIMENOrdering Facility: [facility] Address: [address] [place] [address] Performed By: #### 5 7021-8 ####[facility] LABORATORYCLIA [id number] [address] [place] Nucleated RBC/100 WBC (Bld) [Ratio] 0.0 /100 WBC Normal [facility] Comment on above: Order Comment: Speci men Type: BLOOD SPECIMENOrdering Facility: [facility] Address: [address] [place] [address] Performed By: #### 5 7021-8 ####[facility] LABORATORYCLIA [id number] [address] Platelet mean volume (Bld) [Entitic vol] 12.1 fL Normal 9.0-12.7 [facility] Comment on above: Order Comment: Speci men Type: BLOOD SPECIMENOrdering Facility: [facility] Address: [address] [place] [address] Performed By: #### 5 7021-8 ####[facility] LABORATORYCLIA [id number] [address] [place] Platelets (Bld) [#/Vol] 74 10*3/uL Low 150-400 [facility] Comment on above: Order Comment: Speci men Type: BLOOD SPECIMENOrdering Facility: [facility] Address: [address] [place] [address] Result Comment: No c lot detected. Performed By: #### 5 7021-8 ####[facility] LABORATORYCLIA [id number] [address] [place] RBC (Bld) [#/Vol] 1.78 10*6/uL Low 4.20-6.00 [facility] Comment on above: Order Comment: Speci men Type: BLOOD SPECIMENOrdering Facility: [facility] Address: [address] [place] [address] Performed By: #### 5 7021-8 ####[facility] LABORATORYCLIA [id number] [address] WBC (Bld) [#/Vol] 4.96 10*3/uL Normal 3.70-11.00 [facility] Comment on above: Order Comment: Speci men Type: BLOOD SPECIMENOrdering Facility: [facility] Address: [address] [place] [address] Performed By: #### 5 7021-8 ####[facility] LABORATORYCLIA [id number] [address] Comprehensive metabolic 2000 panelon 02-07-2024 Albumin [Mass/Vol] 3.8 g/dL Low 3.9 - 4.9 g/dL [facility] ALP [Catalytic activity/Vol] 70 U/L 38 - 113 U/L [facility] ALT With P-5'-P [Catalytic activity/Vol] 12 U/L 10 - 54 U/L [facility] Anion gap [Moles/Vol] 14 mmol/L 8 - 15 mmol/L [facility] AST With P-5'-P [Catalytic activity/Vol] 15 U/L 14 - 40 U/L [facility] Bilirubin [Mass/Vol] 0.2 mg/dL 0.2 - 1.3 mg/dL [facility] Calcium [Mass/Vol] 9.2 mg/dL 8.5 - 10. 2 mg/dL [facility] Chloride [Moles/Vol] 103 mmol/L 98 - 107 mmol/L [facility] CO2 [Moles/Vol] 21 mmol/L Low 22 - 30 mmol/L [facility] Creatinine [Mass/Vol] 0.92 mg/dL 0.73 - 1.22 mg/dL [facility] GFR/1.73 sq M.predicted among non-blacks MDRD (S/P/Bld) [Vol rate/Area] 84 mL/min/{1.73_m2} - PINF [facility] Comment on above: Estimated Glomerular Filtration Rate [...] 241 mg/dL High 74 - 99 mg/dL [facility] Comment on above: The [place] Di[employer] Association (ADA) provides guidance for [...] Standards of Medical Care in Diabetes 2016, [place] [employer]. Diabetes Care. 2016.39(Suppl 1). Interpretation and review of laboratory results Abnormal [facility] Potassium [Moles/Vol] 4.3 mmol/L 3.7 - 5.1 mmol/L [facility] Protein [Mass/Vol] 6.4 g/dL 6.3 - 8.0 g/dL [facility] Sodium [Moles/Vol] 138 mmol/L 136 - 144 mmol/L [facility] Urea nitrogen [Mass/Vol] 17 mg/dL 9 - 24 mg/dL [facility] Albumin [Mass/Vol] 3.8 g/dL Low 3.9-4.9 [facility] Comment on above: Order Comment: Speci men Type: BLOOD SPECIMENOrdering Facility: [facility] Address: [facility] [place] [address] Performed By: #### 2 4323-8 ####[facility] LABORATORYCLIA [id number] [place] [address] [place] ALP [Catalytic activity/Vol] 70 U/L Normal 38-113 [facility] Comment on above: Order Comment: Speci men Type: BLOOD SPECIMENOrdering Facility: [facility] Address: [address] [place] [address] Performed By: #### 2 4323-8 ####[facility]ATORYCLIA [id number] [address] [place] ALT With P-5'-P [Catalytic activity/Vol] 12 U/L Normal 10-54 [facility] Comment on above: Order Comment: Speci men Type: BLOOD SPECIMENOrdering Facility: [facility] Address: [address] [place] [address] Performed By: #### 2 4323-8 ####[facility] LABORATORYCLIA [id number] [address] [place] Anion gap [Moles/Vol] 14 mmol/L Normal 8-15 [facility] Comment on above: Order Comment: Speci men Type: BLOOD SPECIMENOrdering Facility: [facility] Address: [address] [place] [address] Performed By: #### 2 4323-8 ####[facility] LABORATORYCLIA [id number] [address] STATES [facility] AST With P-5'-P [Catalytic activity/Vol] 15 U/L Normal 14-40 [facility] Comment on above: Order Comment: Speci men Type: BLOOD SPECIMENOrdering Facility: [facility] Address: [address] [place] [address] Performed By: #### 2 4323-8 ####[facility]ATORYCLIA [id number] [place] [address] [place] Bilirubin [Mass/Vol] 0.2 mg/dL Normal 0.2-1.3 [facility] Comment on above: Order Comment: Speci men Type: BLOOD SPECIMENOrdering Facility: [facility] Address: [address] [place] [address] Performed By: #### 2 4323-8 ####[facility] LABORATORYCLIA [id number] [place] [address] [place] Calcium [Mass/Vol] 9.2 mg/dL Normal 8.5-10.2 [facility] Comment on above: Order Comment: Speci men Type: BLOOD SPECIMENOrdering Facility: [facility] Address: [address] [place] [address] Performed By: #### 2 4323-8 ####[facility] LABORATORYCLIA [id number] [place] [address] [place] Chloride [Moles/Vol] 103 mmol/L Normal 98-107 [facility] Comment on above: Order Comment: Speci men Type: BLOOD SPECIMENOrdering Facility: [facility] Address: [address] [place] [address] Performed By: #### 2 4323-8 ####[facility] LABORATORYCLIA [id number] [place] [address] [place] CO2 [Moles/Vol] 21 mmol/L Low 22-30 [facility] Comment on above: Order Comment: Speci men Type: BLOOD SPECIMENOrdering Facility: [facility] Address: [address] [place] [address] Performed By: #### 2 4323-8 ####[facility] LABORATORYCLIA [id number] [place] [address] [place] Creatinine [Mass/Vol] 0.92 mg/dL Normal 0.73-1.22 [facility] Comment on above: Order Comment: Speci men Type: BLOOD SPECIMENOrdering Facility: [facility] Address: [address] [place] [address] Performed By: #### 2 4323-8 ####[facility] LABORATORYCLIA [id number] [place] [address] [place] Creatinine and Glomerular filtration rate.predicted panel (S/P/Bld) 84 mL/min/1.73m??? Normal >=60 [facility] Comment on above: Order Comment: Speci men Type: BLOOD SPECIMENOrdering Facility: [facility] Address: [address] [place] [address] Result Comment: Sharon mated Glomerular Filtration Rate [...] actual GFR. Performed By: #### 2 4323-8 ####[facility] LABORATORYCLIA [id number] [place] [address] [place] Glucose [Mass/Vol] 241 mg/dL High 74-99 [facility] Comment on above: Order Comment: Speci men Type: BLOOD SPECIMENOrdering Facility: [facility] Address: [address] [place] [address] Result Comment: The [place] Diabetes Association (ADA) provides guidance for cutoff [...] Standards of Medical Care in Diabetes 2016, [place] [employer]. Diabetes Care. 2016.39(Suppl 1). Performed By: #### 2 4323-8 ####[facility] LABORATORYCLIA [id number] [place] [id number] [place] Potassium [Moles/Vol] 4.3 mmol/L Normal 3.7-5.1 [facility] Comment on above: Order Comment: Speci men Type: BLOOD SPECIMENOrdering Facility: [facility] Address: [address] [id number] Performed By: #### 2 4323-8 ####[facility] LABORATORYCLIA [id number] [place] [address] [place] Protein [Mass/Vol] 6.4 g/dL Normal 6.3-8.0 [facility] Comment on above: Order Comment: Speci men Type: BLOOD SPECIMENOrdering Facility: [facility] Address: [address] [place] [address] Performed By: #### 2 4323-8 ####[facility] LABORATORYCLIA [id number] [place] [id number] [place] Sodium [Moles/Vol] 138 mmol/L Normal 136-144 [facility] Comment on above: Order Comment: Speci men Type: BLOOD SPECIMENOrdering Facility: [facility] Address: [address] [place] [address] Performed By: #### 2 4323-8 ####[facility] LABORATORYCLIA [id number] [address] [place] Urea nitrogen [Mass/Vol] 17 mg/dL Normal 9-24 [facility] Comment on above: Order Comment: Speci men Type: BLOOD SPECIMENOrdering Facility: [facility] Address: [address] [place] [address] Performed By: #### 2 4323-8 ####[facility] LABORATORYCLIA [id number] [address] OF [facility] TYPE + SCREENon 02-07-2024 ABO B Normal [facility] Comment on above: Order Comment: Speci men Type: BLOOD SPECIMENOrdering Facility: [facility] Address: [address] [place] [address] Performed By: #### T SCR ####[facility] BLOOD BANKCLIA [id number] [address] [place] Rh Nom (Bld) Positive Normal [facility] Comment on above: Order Comment: Speci men Type: BLOOD SPECIMENOrdering Facility: [facility] Address: [address] [place] [address] Performed By: #### T SCR ####[facility] BLOOD BANKCLIA [id number] [address] [place] TYPE AND SCREEN EXPIRATION 02/10/2024 23:59 Normal [facility] Comment on above: Order Comment: Speci men Type: BLOOD SPECIMENOrdering Facility: [facility] Address: [address] [place] [address] Performed By: #### T SCR ####[facility] BLOOD BANKCLIA [id number] [place] [id number] [place] ABO group Nom (Bld) B [facility] Blood group antibody screen Ql Negative [facility] Rh Nom (Bld) Positive [facility] Type and Screen Expiration 02/10/2024 23:59 [facility] CBC W Auto Differential pane l (Bld)on 01-28-2024 Basophils (Bld) [#/Vol] 10*3/uL Normal <0.11 [facility] Comment on above: Order Comment: Speci men Type: BLOOD SPECIMENOrdering Facility: [facility] Address: [address] [place] [address] Performed By: #### 5 7021-8 ####[facility] [place] LABCLIA [id number] [place] [id number] [place] Basophils/100 WBC (Bld) 0.4 % Normal [facility] Comment on above: Order Comment: Speci men Type: BLOOD SPECIMENOrdering Facility: [facility] Address: [address] [place] [address] Performed By: #### 5 7021-8 ####[facility] [place] LABCLIA [id number] [place] [address] [place] Differential cell count method Nom (Bld) Auto Normal [facility] Comment on above: Order Comment: Speci men Type: BLOOD SPECIMENOrdering Facility: [facility] Address: [address] [place] [address] Performed By: #### 5 7021-8 ####[facility] [place] LABCLIA [id number] [place] [address] [place] Eosinophils (Bld) [#/Vol] 10*3/uL Normal <0.46 [facility] Comment on above: Order Comment: Speci men Type: BLOOD SPECIMENOrdering Facility: [facility] Address: [address] [place] [address] Performed By: #### 5 7021-8 ####[facility] [place] LABCLIA [id number] [facility] [place] [address] [place] Eosinophils/100 WBC (Bld) 0.4 % Normal [facility] Comment on above: Order Comment: Speci men Type: BLOOD SPECIMENOrdering Facility: [facility] Address: [address] [place] [address] Performed By: #### 5 7021-8 ####[facility] [place] LABCLIA [id number] [facility] [place] [address] [place] Erythrocyte distribution width (RBC) [Ratio] 19.7 % High 11.5-15.0 [facility] Comment on above: Order Comment: Speci men Type: BLOOD SPECIMENOrdering Facility: [facility] Address: [address] [place] [address] Performed By: #### 5 7021-8 ####[facility] [place] LABCLIA [id number] [place] [address] [place] Hematocrit (Bld) [Volume fraction] 21.9 % Low 39.0-51.0 [facility] Comment on above: Order Comment: Speci men Type: BLOOD SPECIMENOrdering Facility: [facility] Address: [address] [place] [address] Performed By: #### 5 7021-8 ####[facility] [place] LABCLIA [id number] [place] [address] [place] Hemoglobin (Bld) [Mass/Vol] 7.0 g/dL Low 13.0-17.0 [facility] Comment on above: Order Comment: Speci men Type: BLOOD SPECIMENOrdering Facility: [facility] Address: [address] [place] [address] Performed By: #### 5 7021-8 ####[facility] [place] LABCLIA [id number] [facility] [place] [address] [place] Immature granulocytes (Bld) [#/Vol] 10*3/uL Normal <0.10 [facility] Comment on above: Order Comment: Speci men Type: BLOOD SPECIMENOrdering Facility: [facility] Address: [address] [place] [address] Performed By: #### 5 7021-8 ####[facility] [place] LABCLIA [id number] [place] [address] [place] [facility] Immature granulocytes/100 WBC (Bld) 0.2 % Normal [facility] Comment on above: Order Comment: Speci men Type: BLOOD SPECIMENOrdering Facility: [facility] Address: [address] [place] [address] Performed By: #### 5 7021-8 ####[facility] [place] LABCLIA [id number] [place] [address] [place] Lymphocytes (Bld) [#/Vol] 2.14 10*3/uL Normal 1.00-4.00 [facility] Comment on above: Order Comment: Speci men Type: BLOOD SPECIMENOrdering Facility: [facility] Address: [address] [place] [address] Performed By: #### 5 7021-8 ####[facility] [place] LABCLIA [id number] [place] [address] [place] [facility] Lymphocytes/100 WBC (Bld) 38.0 % Normal [facility] Comment on above: Order Comment: Speci men Type: BLOOD SPECIMENOrdering Facility: [facility] Address: [address] [place] [address] Performed By: #### 5 7021-8 ####[facility] [place] LABCLIA [id number] [place] [address] [place] MCH (RBC) [Entitic mass] 37.6 pg High 26.0-34.0 [facility] Comment on above: Order Comment: Speci men Type: BLOOD SPECIMENOrdering Facility: [facility] Address: [address] [place] [address] Performed By: #### 5 7021-8 ####[facility] [place] LABCLIA [id number] [place] [address] [place] MCHC (RBC) [Mass/Vol] 32.0 g/dL Normal 30.5-36.0 [facility] Comment on above: Order Comment: Speci men Type: BLOOD SPECIMENOrdering Facility: [facility] Address: [address] [place] [address] Performed By: #### 5 7021-8 ####[facility] [place] LABCLIA [id number] [place] [address] [place] MCV (RBC) [Entitic vol] 117.7 fL High 80.0-100.0 [facility] Comment on above: Order Comment: Speci men Type: BLOOD SPECIMENOrdering Facility: [facility] Address: [address] [place] [address] Performed By: #### 5 7021-8 ####[facility] [place] LABCLIA [id number] [place] [address] [place] Monocytes (Bld) [#/Vol] 0.52 10*3/uL Normal <0.87 [facility] Comment on above: Order Comment: Speci men Type: BLOOD SPECIMENOrdering Facility: [facility] Address: [address] [place] [address] Performed By: #### 5 7021-8 ####[facility] [place] LABCLIA [id number] [place] [address] [facility] Monocytes/100 WBC (Bld) 9.2 % Normal [facility] Comment on above: Order Comment: Speci men Type: BLOOD SPECIMENOrdering Facility: [facility] Address: [address] [place] [address] Performed By: #### 5 7021-8 ####[facility] [place] LABCLIA [id number] [place] [address] [place] Neutrophils (Bld) [#/Vol] 2.92 10*3/uL Normal 1.45-7.50 [facility] Comment on above: Order Comment: Speci men Type: BLOOD SPECIMENOrdering Facility: [facility] Address: [address] [place] [address] Performed By: #### 5 7021-8 ####[facility] [place] LABCLIA [id number] [facility] [place] [address] [place] Neutrophils/100 WBC (Bld) 51.8 % Normal [facility] Comment on above: Order Comment: Speci men Type: BLOOD SPECIMENOrdering Facility: [facility] Address: [address] [place] [address] Performed By: #### 5 7021-8 ####[facility] [place] LABCLIA [id number] [facility] [place] [address] [place] Nucleated RBC (Bld) [#/Vol] Normal [facility] Comment on above: Order Comment: Speci men Type: BLOOD SPECIMENOrdering Facility: [facility] Address: [address] [place] [address] Performed By: #### 5 7021-8 ####[facility] LABCLIA [id number] [place] [address] [place] Nucleated RBC/100 WBC (Bld) [Ratio] Normal [facility] Comment on above: Order Comment: Speci men Type: BLOOD SPECIMENOrdering Facility: [facility] Address: [address] [place] [address] Performed By: #### 5 7021-8 ####[facility] [place] LABCLIA [id number] [place] [address] [place] Platelet mean volume (Bld) [Entitic vol] 12.6 fL Normal 9.0-12.7 [facility] Comment on above: Order Comment: Speci men Type: BLOOD SPECIMENOrdering Facility: [facility] Address: [address] [place] [address] Performed By: #### 5 7021-8 ####[facility] [place] LABCLIA [id number] [facility] [place] [address] [place] Platelets (Bld) [#/Vol] 91 10*3/uL Low 150-400 [facility] Comment on above: Order Comment: Speci men Type: BLOOD SPECIMENOrdering Facility: [facility] Address: [address] [place] [address] Result Comment: No c lot detected. Performed By: #### 5 7021-8 ####[facility] LABCLIA [id number] [place] [address] [facility] RBC (Bld) [#/Vol] 1.86 10*6/uL Low 4.20-6.00 [facility] Comment on above: Order Comment: Speci men Type: BLOOD SPECIMENOrdering Facility: [facility] Address: [address] [place] [address] Performed By: #### 5 7021-8 ####[facility] LABCLIA [id number] [place] [address] [facility] WBC (Bld) [#/Vol] 5.63 10*3/uL Normal 3.70-11.00 [facility] Comment on above: Order Comment: Speci men Type: BLOOD SPECIMENOrdering Facility: [facility] Address: [address] [place] [address] Performed By: #### 5 7021-8 ####[facility] LABCLIA [id number] [place] [address] [facility] Comprehensive metabolic 2000 panelon 01-28-2024 Albumin [Mass/Vol] 4.0 g/dL Normal 3.9-4.9 [facility] Comment on above: Order Comment: Speci men Type: BLOOD SPECIMENOrdering Facility: [facility] Address: [address] [place] [address] Performed By: #### 2 4323-8 ####[facility] LABCLIA [id number] [place] [address] [facility] ALP [Catalytic activity/Vol] 72 U/L Normal 38-113 [facility] Comment on above: Order Comment: Speci men Type: BLOOD SPECIMENOrdering Facility: [facility] Address: [address] [place] [address] Performed By: #### 2 4323-8 ####[facility] [place] LABCLIA [id number] [place] [address] [place] ALT With P-5'-P [Catalytic activity/Vol] 13 U/L Normal 10-54 [facility] Comment on above: Order Comment: Speci men Type: BLOOD SPECIMENOrdering Facility: [facility] Address: [address] [place] [address] Performed By: #### 2 4323-8 ####[facility] [place] LABCLIA [id number] [place] [address] [place] Anion gap [Moles/Vol] 14 mmol/L Normal 8-15 [facility] Comment on above: Order Comment: Speci men Type: BLOOD SPECIMENOrdering Facility: [facility] Address: [address] [place] [address] Performed By: #### 2 4323-8 ####[facility] [place] LABCLIA [id number] [place] [address] [place] AST With P-5'-P [Catalytic activity/Vol] 15 U/L Normal 14-40 [facility] Comment on above: Order Comment: Speci men Type: BLOOD SPECIMENOrdering Facility: [facility] Address: [address] [place] [address] Performed By: #### 2 4323-8 ####[facility] [place] LABCLIA [id number] [place] [address] [place] Bilirubin [Mass/Vol] 0.2 mg/dL Normal 0.2-1.3 [facility] Comment on above: Order Comment: Speci men Type: BLOOD SPECIMENOrdering Facility: [facility] Address: [address] [place] [address] Performed By: #### 2 4323-8 ####[facility] [place] LABCLIA [id number] [place] [address] [place] Calcium [Mass/Vol] 9.7 mg/dL Normal 8.5-10.2 [facility] Comment on above: Order Comment: Speci men Type: BLOOD SPECIMENOrdering Facility: [facility] Address: [address] [place] [address] Performed By: #### 2 4323-8 ####[facility] [place] LABCLIA [id number] [place] [address] [place] Chloride [Moles/Vol] 104 mmol/L Normal 98-107 [facility] Comment on above: Order Comment: Speci men Type: BLOOD SPECIMENOrdering Facility: [facility] Address: [address] [place] [address] Performed By: #### 2 4323-8 ####[facility] [place] LABCLIA [id number] [place] [address] [place] CO2 [Moles/Vol] 20 mmol/L Low 22-30 [facility] Comment on above: Order Comment: Speci men Type: BLOOD SPECIMENOrdering Facility: [facility] Address: [address] [place] [address] Performed By: #### 2 4323-8 ####[facility] LABCLIA [id number] [place] [address] [place] Creatinine [Mass/Vol] 1.04 mg/dL Normal 0.73-1.22 [facility] Comment on above: Order Comment: Speci men Type: BLOOD SPECIMENOrdering Facility: [facility] Address: [address] [place] [address] Performed By: #### 2 4323-8 ####[facility] [place] LABCLIA [id number] [place] [address] [place] Creatinine and Glomerular filtration rate.predicted panel (S/P/Bld) 73 mL/min/1.73m??? Normal >=60 [facility] Comment on above: Order Comment: Speci men Type: BLOOD SPECIMENOrdering Facility: [facility] Address: [address] [place] [address] Result Comment: Sharon mated Glomerular Filtration Rate [...] actual GFR. Performed By: #### 2 4323-8 ####[facility] LABCLIA [id number] [place] [address] [place] Glucose [Mass/Vol] 185 mg/dL High 74-99 [facility] Comment on above: Order Comment: Mayuri men Type: BLOOD SPECIMENOrdering Facility: [facility] Address: [address] [place], [place] [address] Result Comment: The [place] [employer] (ADA) provides guidance for cutoff [...] Standards of Medical Care in Diabetes 2016, [place] [employer]. Diabetes Care. 2016.39(Suppl 1). Performed By: #### 2 4323-8 ####[facility] LABCLIA [id number] [place] [address] [place] Potassium [Moles/Vol] 4.5 mmol/L Normal 3.7-5.1 [facility] Comment on above: Order Comment: Mathew portillo Type: BLOOD SPECIMENOrdering Facility: [facility] Address: [address] [place] [address] Performed By: #### 2 4323-8 ####[facility] [place] LABCLIA [id number] [place] [address] [place] Protein [Mass/Vol] 6.9 g/dL Normal 6.3-8.0 [facility] Comment on above: Order Comment: Speci men Type: BLOOD SPECIMENOrdering Facility: [facility] Address: [address] [place] [address] Performed By: #### 2 4323-8 ####[facility] [place] LABCLIA [id number] [place] [address] [place] Sodium [Moles/Vol] 138 mmol/L Normal 136-144 [facility] Comment on above: Order Comment: Speci men Type: BLOOD SPECIMENOrdering Facility: [facility] Address: [address] [place] [address] Performed By: #### 2 4323-8 ####[facility] [place] LABCLIA [id number] [place] [address] [place] [facility] Urea nitrogen [Mass/Vol] 25 mg/dL High 9-24 [facility] Comment on above: Order Comment: Speci men Type: BLOOD SPECIMENOrdering Facility: [facility] Address: [address] [place] [address] Performed By: #### 2 4323-8 ####[facility] [place] LABCLIA [id number] [place] [address] [facility] TYPE + SCREENon 01-28-2024 ABO B Normal [facility] Comment on above: Order Comment: Speci men Type: BLOOD SPECIMENOrdering Facility: [facility] Address: [address] [place] [address] Performed By: #### T SCR ####[facility] BLOOD BANKCLIA [id number] [address] [place] Rh Nom (Bld) Positive Normal [facility] Comment on above: Order Comment: Speci men Type: BLOOD SPECIMENOrdering Facility: [facility] Address: [address] [place] [address] Performed By: #### T SCR ####[facility] BLOOD BANKCLIA [id number] [address] [place] TYPE AND SCREEN EXPIRATION 01/31/2024 23:59 Normal [facility] Comment on above: Order Comment: Speci men Type: BLOOD SPECIMENOrdering Facility: [facility] Address: [address] [place] [address] Performed By: #### T SCR ####[facility] BLOOD BANKCLIA [id number] [place] [id number] [place] BILIRUBIN, CONJUGATEDon 12-26 Bilirubin.conjugate d [Mass/Vol] mg/dL NINF - 0.2 mg/dL [facility] Bilirub Conj SerPl-mCncon Bilirubin.conjugate d [Mass/Vol] mg/dL Normal <0.2 [facility] Comment on above: Order Comment: Speci men Type: BLOOD SPECIMENOrdering Facility: [facility] Address: [address] [place] [address] Performed By: #### 2 276-4, 24624-7, 37279-7, 48298-3 ####[facility] LABORATORYCLIA [id number] [address] [place] Bilirubin.conjugated [Mass/V ol]on 01-10-2024 Interpretation and review of laboratory results Normal [facility] CBC W Auto Differential pane l (Bld)on 01-10-2024 Basophils (Bld) [#/Vol] [facility] Basophils/100 WBC (Bld) 0.2 % [facility] Differential cell count method Nom (Bld) Auto [facility] Eosinophils (Bld) [#/Vol] [facility] Eosinophils/100 WBC (Bld) 0.4 % [facility] Erythrocyte distribution width (RBC) [Ratio] 20.6 % High 11.5 - 15.0 % [facility] Hematocrit (Bld) [Volume fraction] 26.0 % Low 39.0 - 51.0 % [facility] Hemoglobin (Bld) [Mass/Vol] 8.5 g/dL Low 13.0 - 17.0 g/dL [facility] Immature granulocytes (Bld) [#/Vol] NINF [facility] Immature granulocytes/100 WBC (Bld) 0.2 % [facility] Interpretation and review of laboratory results Abnormal [facility] Lymphocytes (Bld) [#/Vol] 1.39 10*3/uL [facility] Lymphocytes/100 WBC (Bld) 27.9 % [facility] MCH (RBC) [Entitic mass] 37.1 pg High 26.0 - 34.0 pg [facility] MCHC (RBC) [Mass/Vol] 32.7 g/dL 30.5 - 36.0 g/dL [facility] MCV (RBC) [Entitic vol] 113.5 fL High 80.0 - 100.0 fL [facility] Monocytes (Bld) [#/Vol] 0.29 10*3/uL [facility] Monocytes/100 WBC (Bld) 5.8 % [facility] Neutrophils (Bld) [#/Vol] 3.26 10*3/uL [facility] Neutrophils/100 WBC (Bld) 65.5 % [facility] Nucleated RBC (Bld) [#/Vol] 0.06 10*3/uL High [facility] Nucleated RBC/100 WBC (Bld) [Ratio] 1.2 % /100 WBC [facility] Platelet mean volume (Bld) [Entitic vol] 11.9 fL 9.0 - 12.7 fL [facility] Platelets (Bld) [#/Vol] 133 10*3/uL Low [facility] RBC (Bld) [#/Vol] 2.29 10*6/uL Low 4.20 - 6.0 0 m/uL [facility] WBC (Bld) [#/Vol] 4.98 10*3/uL [facility] Basophils (Bld) [#/Vol] 10*3/uL Normal <0.11 [facility] Comment on above: Order Comment: Speci men Type: BLOOD SPECIMENOrdering Facility: [facility] Address: [address] [place] [address] Performed By: #### 5 7021-8 ####[facility] LABORATORYCLIA [id number] [address] OF [facility] Basophils/100 WBC (Bld) 0.2 % Normal [facility] Comment on above: Order Comment: Speci men Type: BLOOD SPECIMENOrdering Facility: [facility] Address: [address] [place] [address] Performed By: #### 5 7021-8 ####[facility] LABORATORYCLIA [id number] [address] Differential cell count method Nom (Bld) Auto Normal [facility] Comment on above: Order Comment: Speci men Type: BLOOD SPECIMENOrdering Facility: [facility] Address: [address] [place] [address] Performed By: #### 5 7021-8 ####[facility] LABORATORYCLIA [id number] [address] [place] Eosinophils (Bld) [#/Vol] 10*3/uL Normal <0.46 [facility] Comment on above: Order Comment: Speci men Type: BLOOD SPECIMENOrdering Facility: [facility] Address: [address] [place] [address] Performed By: #### 5 7021-8 ####[facility] LABORATORYCLIA [id number] [address] Eosinophils/100 WBC (Bld) 0.4 % Normal [facility] Comment on above: Order Comment: Speci men Type: BLOOD SPECIMENOrdering Facility: [facility] Address: [address] [place] [address] Performed By: #### 5 7021-8 ####[facility] LABORATORYCLIA [id number] [address] Erythrocyte distribution width (RBC) [Ratio] 20.6 % High 11.5-15.0 [facility] Comment on above: Order Comment: Speci men Type: BLOOD SPECIMENOrdering Facility: [facility] Address: [address] [place] [address] Performed By: #### 5 7021-8 ####[facility] LABORATORYCLIA [id number] [address] Hematocrit (Bld) [Volume fraction] 26.0 % Low 39.0-51.0 [facility] Comment on above: Order Comment: Speci men Type: BLOOD SPECIMENOrdering Facility: [facility] Address: [address] [place] [address] Performed By: #### 5 7021-8 ####[facility] LABORATORYCLIA [id number] [place] [address] [place] Hemoglobin (Bld) [Mass/Vol] 8.5 g/dL Low 13.0-17.0 [facility] Comment on above: Order Comment: Speci men Type: BLOOD SPECIMENOrdering Facility: [facility] Address: [address] [place] [address] Performed By: #### 5 7021-8 ####[facility] LABORATORYCLIA [id number] [place] [address] [place] Immature granulocytes (Bld) [#/Vol] 10*3/uL Normal <0.10 [facility] Comment on above: Order Comment: Speci men Type: BLOOD SPECIMENOrdering Facility: [facility] Address: [address] [place] [address] Performed By: #### 5 7021-8 ####[facility] LABORATORYCLIA [id number] [address] [place] Immature granulocytes/100 WBC (Bld) 0.2 % Normal [facility] Comment on above: Order Comment: Speci men Type: BLOOD SPECIMENOrdering Facility: [facility] Address: [address] [place] [address] Performed By: #### 5 7021-8 ####[facility] LABORATORYCLIA [id number] [address] [place] Lymphocytes (Bld) [#/Vol] 1.39 10*3/uL Normal 1.00-4.00 [facility] Comment on above: Order Comment: Speci men Type: BLOOD SPECIMENOrdering Facility: [facility] Address: [address] [place] [address] Performed By: #### 5 7021-8 ####[facility]ORATORYCLIA [id number] [address] [place] Lymphocytes/100 WBC (Bld) 27.9 % Normal [facility] Comment on above: Order Comment: Speci men Type: BLOOD SPECIMENOrdering Facility: [facility] Address: [address] [place] [address] Performed By: #### 5 7021-8 ####[facility] LABORATORYCLIA [id number] [address] STATES OF [facility] MCH (RBC) [Entitic mass] 37.1 pg High 26.0-34.0 [facility] Comment on above: Order Comment: Speci men Type: BLOOD SPECIMENOrdering Facility: [facility] Address: [address] [place] [address] Performed By: #### 5 7021-8 ####[facility] LABORATORYCLIA [id number] [address] [place] MCHC (RBC) [Mass/Vol] 32.7 g/dL Normal 30.5-36.0 [facility] Comment on above: Order Comment: Speci men Type: BLOOD SPECIMENOrdering Facility: [facility] Address: [address] [place] [address] Performed By: #### 5 7021-8 ####[facility] LABORATORYCLIA [id number] [address] [place] MCV (RBC) [Entitic vol] 113.5 fL High 80.0-100.0 [facility] Comment on above: Order Comment: Speci men Type: BLOOD SPECIMENOrdering Facility: [facility] Address: [address] [place] [address] Performed By: #### 5 7021-8 ####[facility] LABORATORYCLIA [id number] [address] [place] Monocytes (Bld) [#/Vol] 0.29 10*3/uL Normal <0.87 [facility] Comment on above: Order Comment: Speci men Type: BLOOD SPECIMENOrdering Facility: [facility] Address: [address] [place] [address] Performed By: #### 5 7021-8 ####[facility] LABORATORYCLIA [id number] [address] Monocytes/100 WBC (Bld) 5.8 % Normal [facility] Comment on above: Order Comment: Speci men Type: BLOOD SPECIMENOrdering Facility: [facility] Address: [address] [place] [address] Performed By: #### 5 7021-8 ####[facility] LABORATORYCLIA [id number] [place] [address] [place] Neutrophils (Bld) [#/Vol] 3.26 10*3/uL Normal 1.45-7.50 [facility] Comment on above: Order Comment: Speci men Type: BLOOD SPECIMENOrdering Facility: [facility] Address: [address] [place] [address] Performed By: #### 5 7021-8 ####[facility] LABORATORYCLIA [id number] [address] [place] Neutrophils/100 WBC (Bld) 65.5 % Normal [facility] Comment on above: Order Comment: Speci men Type: BLOOD SPECIMENOrdering Facility: [facility] Address: [address] [place] [address] Performed By: #### 5 7021-8 ####[facility] LABORATORYCLIA [id number] [place] [address] [place] Nucleated RBC (Bld) [#/Vol] 0.06 10*3/uL High <0.01 [facility] Comment on above: Order Comment: Speci men Type: BLOOD SPECIMENOrdering Facility: [facility] Address: [address] [place] [address] Performed By: #### 5 7021-8 ####[facility] LABORATORYCLIA [id number] [address] [place] Nucleated RBC/100 WBC (Bld) [Ratio] 1.2 /100 WBC Normal [facility] Comment on above: Order Comment: Speci men Type: BLOOD SPECIMENOrdering Facility: [facility] Address: [address] [place] [address] Performed By: #### 5 7021-8 ####[facility] LABORATORYCLIA [id number] [place] [address] [place] Platelet mean volume (Bld) [Entitic vol] 11.9 fL Normal 9.0-12.7 [facility] Comment on above: Order Comment: Speci men Type: BLOOD SPECIMENOrdering Facility: [facility] Address: [address] [place] [address] Performed By: #### 5 7021-8 ####[facility] LABORATORYCLIA [id number] [place] [address] [place] Platelets (Bld) [#/Vol] 133 10*3/uL Low 150-400 [facility] Comment on above: Order Comment: Speci men Type: BLOOD SPECIMENOrdering Facility: [facility] Address: [address] [place] [address] Performed By: #### 5 7021-8 ####[facility]ORATORYCLIA [id number] [place] [address] [place] RBC (Bld) [#/Vol] 2.29 10*6/uL Low 4.20-6.00 [facility] Comment on above: Order Comment: Speci men Type: BLOOD SPECIMENOrdering Facility: [facility] Address: [address] [place] [address] Performed By: #### 5 7021-8 ####[facility] LABORATORYCLIA [id number] [address] [place] WBC (Bld) [#/Vol] 4.98 10*3/uL Normal 3.70-11.00 [facility] Comment on above: Order Comment: Speci men Type: BLOOD SPECIMENOrdering Facility: [facility] Address: [address] [place] [address] Performed By: #### 5 7021-8 ####[facility] LABORATORYCLIA [id number] [place] [address] [place] CNOVon 01-10-2024 CNOV Normal [facility] Comprehensive metabolic 2000 panelon 01-10-2024 Albumin [Mass/Vol] 4.0 g/dL 3.9 - 4.9 g/dL [facility] ALP [Catalytic activity/Vol] 73 U/L 38 - 113 U/L [facility] ALT With P-5'-P [Catalytic activity/Vol] 13 U/L 10 - 54 U/L [facility] Anion gap [Moles/Vol] 15 mmol/L 8 - 15 mmol/L [facility] AST With P-5'-P [Catalytic activity/Vol] 15 U/L 14 - 40 U/L [facility] Bilirubin [Mass/Vol] 0.2 mg/dL 0.2 - 1.3 mg/dL [facility] Calcium [Mass/Vol] 9.2 mg/dL 8.5 - 10. 2 mg/dL [facility] Chloride [Moles/Vol] 103 mmol/L 98 - 107 mmol/L [facility] CO2 [Moles/Vol] 20 mmol/L Low 22 - 30 mmol/L [facility] Creatinine [Mass/Vol] 0.98 mg/dL 0.73 - 1.22 mg/dL [facility] GFR/1.73 sq M.predicted among non-blacks MDRD (S/P/Bld) [Vol rate/Area] 78 mL/min/{1.73_m2} - PINF [facility] Comment on above: Estimated Glomerular Filtration Rate [...] 280 mg/dL High 74 - 99 mg/dL [facility] Comment on above: The [place] Diabete s Association (ADA) provides guidance for [...] Standards of Medical Care in Diabetes 2016, [place] [employer]. Diabetes Care. 2016.39(Suppl 1). Potassium [Moles/Vol] 4.4 mmol/L 3.7 - 5.1 mmol/L [facility] Protein [Mass/Vol] 6.6 g/dL 6.3 - 8.0 g/dL [facility] Sodium [Moles/Vol] 138 mmol/L 136 - 144 mmol/L [facility] Urea nitrogen [Mass/Vol] 21 mg/dL 9 - 24 mg/dL [facility] Albumin [Mass/Vol] 4.0 g/dL Normal 3.9-4.9 [facility] Comment on above: Order Comment: Speci men Type: BLOOD SPECIMENOrdering Facility: [facility] Address: [address] [place] [address] Performed By: #### 2 276-4, 28590-5, 31369-7, 40088-2 ####[facility]ORATORYCLIA [id number] [address] STATES OF [facility] ALP [Catalytic activity/Vol] 73 U/L Normal 38-113 [facility] Comment on above: Order Comment: Speci men Type: BLOOD SPECIMENOrdering Facility: [facility] Address: [address] [place] [address] Performed By: #### 2 276-4, 84870-5, 17980-2, 33470-4 ####[facility]ORATORYCLIA [id number] [address] [place] ALT With P-5'-P [Catalytic activity/Vol] 13 U/L Normal 10-54 [facility] Comment on above: Order Comment: Speci men Type: BLOOD SPECIMENOrdering Facility: [facility] Address: [address] [place] [address] Performed By: #### 2 276-4, 35965-5, 61888-9, 63221-2 ####[facility]ORATORYCLIA [id number] [address] STATES [facility] Anion gap [Moles/Vol] 15 mmol/L Normal 8-15 [facility] Comment on above: Order Comment: Speci men Type: BLOOD SPECIMENOrdering Facility: [facility] Address: [address] [place] [address] Performed By: #### 2 276-4, 99915-4, 97240-5, 24180-4 ####[facility]ORATORYCLIA [id number] [place] [address] [place] AST With P-5'-P [Catalytic activity/Vol] 15 U/L Normal 14-40 [facility] Comment on above: Order Comment: Speci men Type: BLOOD SPECIMENOrdering Facility: [facility] Address: [address] [place] [address] Performed By: #### 2 276-4, 89456-6, 23765-7, 83012-9 ####[facility]ORATORYCLIA [id number] [place] [address] [place] Bilirubin [Mass/Vol] 0.2 mg/dL Normal 0.2-1.3 [facility] Comment on above: Order Comment: Speci men Type: BLOOD SPECIMENOrdering Facility: [facility] Address: [address] [place] [address] Performed By: #### 2 276-4, 74503-6, 53090-0, 92154-2 ####[facility]ORATORYCLIA [id number] [place] [address] [place] Calcium [Mass/Vol] 9.2 mg/dL Normal 8.5-10.2 [facility] Comment on above: Order Comment: Speci men Type: BLOOD SPECIMENOrdering Facility: [facility] Address: [address] [place] [address] Performed By: #### 2 276-4, 75719-3, 81354-2, 04251-1 ####[facility]ORATORYCLIA [id number] [place] [id number] [place] Chloride [Moles/Vol] 103 mmol/L Normal 98-107 [facility] Comment on above: Order Comment: Speci men Type: BLOOD SPECIMENOrdering Facility: [facility] Address: [address] [place] [address] Performed By: #### 2 276-4, 61313-2, 32952-8, 14810-3 ####[facility] CITYCLIA [id number] [place] [address] [place] CO2 [Moles/Vol] 20 mmol/L Low 22-30 [facility] Comment on above: Order Comment: Speci men Type: BLOOD SPECIMENOrdering Facility: [facility] Address: [address] [place] [address] Performed By: #### 2 276-4, 30316-3, 18672-2, 08124-4 ####[facility] CITYCLIA [id number] [place] [id number] [place] Creatinine [Mass/Vol] 0.98 mg/dL Normal 0.73-1.22 [facility] Comment on above: Order Comment: Speci men Type: BLOOD SPECIMENOrdering Facility: [facility] Address: [address] [place] [address] Performed By: #### 2 276-4, 31400-3, 13128-3, 21264-3 ####[facility] [id number] [place] [id number] [place] [facility] Creatinine and Glomerular filtration rate.predicted panel (S/P/Bld) 78 mL/min/1.73m??? Normal >=60 [facility] Comment on above: Order Comment: Speci men Type: BLOOD SPECIMENOrdering Facility: [facility] Address: [address] [place] [address] Result Comment: Sharon mated Glomerular Filtration Rate [...] reflect actual GFR. Performed By: #### 2 276-4, 19588-1, 43846-2, 53017-8 ####[facility]ORATORYCLIA [id number] [place] [address] [place] Glucose [Mass/Vol] 280 mg/dL High 74-99 [facility] Comment on above: Order Comment: Mathew portillo Type: BLOOD SPECIMENOrdering Facility: [facility] Address: [address] [place] [address] Result Comment: The [place] Diabetes Association (ADA) provides guidance for cutoff [...] Standards of Medical Care in Diabetes 2016, [place] [employer]. Diabetes Care. 2016.39(Suppl 1). Performed By: #### 2 276-4, 19526-3, 19749-1, 26008-0 ####[facility]ORATORYCLIA [id number] [place] [address] [place] Potassium [Moles/Vol] 4.4 mmol/L Normal 3.7-5.1 [facility] Comment on above: Order Comment: Mathew portillo Type: BLOOD SPECIMENOrdering Facility: [facility] Address: [address] [place] [address] Performed By: #### 2 276-4, 18234-8, 28038-2, 79698-2 ####[facility]ORATORYCLIA [id number] [place] [id number] [place] Protein [Mass/Vol] 6.6 g/dL Normal 6.3-8.0 [facility] Comment on above: Order Comment: Mathew portillo Type: BLOOD SPECIMENOrdering Facility: [facility] Address: [address] [place] [address] Performed By: #### 2 276-4, 54016-4, 77771-0, 93949-2 ####[facility]ORATORYCLIA [id number] [place] [id number] [place] Sodium [Moles/Vol] 138 mmol/L Normal 136-144 [facility] Comment on above: Order Comment: Speci men Type: BLOOD SPECIMENOrdering Facility: [facility] Address: [address] [place] [id number] Performed By: #### 2 276-4, 32527-5, 07527-6, 09150-9 ####[facility] LABORATORYCLIA [id number] [place] [address] [place] [facility] Urea nitrogen [Mass/Vol] 21 mg/dL Normal 9-24 [facility] Comment on above: Order Comment: Speci men Type: BLOOD SPECIMENOrdering Facility: [facility] Address: [address] [place] [address] Performed By: #### 2 276-4, 26028-1, 07681-0, 90120-5 ####[facility]ORATORYCLIA [id number] [place] [address] [place] FERRITINon 01-10-2024 Ferritin [Mass/Vol] 1130.0 ng/mL High 30.3 - 5 65.7 ng/mL [facility] Ferritin SerPl-mCncon 2023 Ferritin [Mass/Vol] 1130.0 ng/mL High 30.3-565.7 [facility] Comment on above: Order Comment: Speci men Type: BLOOD SPECIMENOrdering Facility: [facility] Address: [facility] [place] [address] Performed By: #### 2 276-4, 66220-3, 71371-0, 59297-0 ####[facility]ORATORYCLIA [id number] [place] [address] [place] Ferritin [Mass/Vol]on 2023 Interpretation and review of laboratory results Abnormal [facility] Iron and Iron binding capaci ty panelon 01-10-2024 Iron [Mass/Vol] 225 ug/dL High 41 - 186 ug/dL [facility] Iron binding capacity [Mass/Vol] 244 ug/dL 232 - 386 ug/dL [facility] Iron saturation [Mass fraction] 92.2 % High 15.0 - 57.0 % [facility] Iron [Mass/Vol] 225 ug/dL High 41-186 [facility] Comment on above: Order Comment: Speci men Type: BLOOD SPECIMENOrdering Facility: [facility] Address: [address] [place] [address] Performed By: #### 2 276-4, 59457-2, 41804-0, 10981-1 ####[facility]ORATORYCLIA [id number] [place] [id number] [place] Iron binding capacity [Mass/Vol] 244 ug/dL Normal 232-386 [facility] Comment on above: Order Comment: Speci men Type: BLOOD SPECIMENOrdering Facility: [facility] Address: [address] [place] [address] Performed By: #### 2 276-4, 53636-8, 74489-6, 84112-0 ####[facility]ORATORYCLIA [id number] [address] STATES OF [facility] Iron saturation [Mass fraction] 92.2 % High 15.0-57.0 [facility] Comment on above: Order Comment: Speci men Type: BLOOD SPECIMENOrdering Facility: [facility] Address: [address] [place] [address] Performed By: #### 2 276-4, 50862-6, 58700-7, 39647-4 ####[facility]ORATORYCLIA [id number] [address] [place] No Panel Informationon 01-09 Interpretation and review of laboratory results Abnormal [facility] TYPE + SCREENon 01-10-2024 ABO B Normal [facility] Comment on above: Order Comment: Speci men Type: BLOOD SPECIMENOrdering Facility: [facility] Address: [address] [place] [address] Performed By: #### T SCR ####[facility] BLOOD BANKCLIA [id number] [address] [place] Rh Nom (Bld) Positive Normal [facility] Comment on above: Order Comment: Speci men Type: BLOOD SPECIMENOrdering Facility: [facility] Address: [facility] [place] [address] Performed By: #### T SCR ####[facility] BLOOD BANKCLIA [id number] [place] [address] [place] [facility] TYPE AND SCREEN EXPIRATION 01/13/2024 23:59 Normal [facility] Comment on above: Order Comment: Speci men Type: BLOOD SPECIMENOrdering Facility: [facility] Address: [address] [place] [id number] Performed By: #### T SCR ####[facility] BLOOD BANKCLIA [id number] [place] [address] [place] ABO group Nom (Bld) B [facility] Blood group antibody screen Ql Negative [facility] Rh Nom (Bld) Positive [facility] Type and Screen Expiration 01/13/2024 23:59 [facility] CBC W Auto Differential pane l (Bld)on 12-31-2023 Basophils (Bld) [#/Vol] [facility] Basophils/100 WBC (Bld) 0.3 % [facility] Differential cell count method Nom (Bld) Auto [facility] Eosinophils (Bld) [#/Vol] [facility] Eosinophils/100 WBC (Bld) 0.3 % [facility] Erythrocyte distribution width (RBC) [Ratio] 20.8 % High 11.5 - 15.0 % [facility] Hematocrit (Bld) [Volume fraction] 27.6 % Low 39.0 - 51.0 % [facility] Hemoglobin (Bld) [Mass/Vol] 8.8 g/dL Low 13.0 - 17.0 g/dL [facility] Immature granulocytes (Bld) [#/Vol] 0.05 10*3/uL [facility] Immature granulocytes/100 WBC (Bld) 0.9 % [facility] Interpretation and review of laboratory results Abnormal [facility] Lymphocytes (Bld) [#/Vol] 1.70 10*3/uL [facility] Lymphocytes/100 WBC (Bld) 29.4 % [facility] MCH (RBC) [Entitic mass] 36.5 pg High 26.0 - 34.0 pg [facility] MCHC (RBC) [Mass/Vol] 31.9 g/dL 30.5 - 36.0 g/dL [facility] MCV (RBC) [Entitic vol] 114.5 fL High 80.0 - 100.0 fL [facility] Monocytes (Bld) [#/Vol] 0.33 10*3/uL [facility] Monocytes/100 WBC (Bld) 5.7 % [facility] Neutrophils (Bld) [#/Vol] 3.67 10*3/uL [facility] Neutrophils/100 WBC (Bld) 63.4 % [facility] Nucleated RBC (Bld) [#/Vol] 0.06 10*3/uL High NINF [facility] Nucleated RBC/100 WBC (Bld) [Ratio] 1.0 % /100 WBC [facility] Platelet mean volume (Bld) [Entitic vol] 11.8 fL 9.0 - 12.7 fL [facility] Platelets (Bld) [#/Vol] 123 10*3/uL Low [facility] RBC (Bld) [#/Vol] 2.41 10*6/uL Low 4.20 - 6.0 0 m/uL [facility] WBC (Bld) [#/Vol] 5.79 10*3/uL [facility] Comprehensive metabolic 2000 panelon 12-31-2023 Albumin [Mass/Vol] 4.1 g/dL 3.9 - 4.9 g/dL [facility] ALP [Catalytic activity/Vol] 61 U/L 38 - 113 U/L [facility] ALT With P-5'-P [Catalytic activity/Vol] 12 U/L 10 - 54 U/L [facility] Anion gap [Moles/Vol] 11 mmol/L 8 - 15 mmol/L [facility] AST With P-5'-P [Catalytic activity/Vol] 15 U/L 14 - 40 U/L [facility] Bilirubin [Mass/Vol] 0.3 mg/dL 0.2 - 1.3 mg/dL [facility] Calcium [Mass/Vol] 9.3 mg/dL 8.5 - 10. 2 mg/dL [facility] Chloride [Moles/Vol] 105 mmol/L 98 - 107 mmol/L [facility] CO2 [Moles/Vol] 22 mmol/L 22 - 30 mmol/L [facility] Creatinine [Mass/Vol] 0.99 mg/dL 0.73 - 1.22 mg/dL [facility] GFR/1.73 sq M.predicted among non-blacks MDRD (S/P/Bld) [Vol rate/Area] 77 mL/min/{1.73_m2} - PINF [facility] Comment on above: Estimated Glomerular Filtration Rate [...] 179 mg/dL High 74 - 99 mg/dL [facility] Comment on above: The [place] Diabete [employer] Association (ADA) provides guidance for [...] Standards of Medical Care in Diabetes 2016, [place] [employer]. Diabetes Care. 2016.39(Suppl 1). Interpretation and review of laboratory results Abnormal [facility] Potassium [Moles/Vol] 4.3 mmol/L 3.7 - 5.1 mmol/L [facility] Protein [Mass/Vol] 6.8 g/dL 6.3 - 8.0 g/dL [facility] Sodium [Moles/Vol] 138 mmol/L 136 - 144 mmol/L [facility] Urea nitrogen [Mass/Vol] 17 mg/dL 9 - 24 mg/dL [facility] Endocrinology Visit Reporton 12-31-2023 Endocrinology Visit Report [facility] [address] [place] [address] OFFICE VISIT Date of Service: 12/31/23 MR#: [id number] Acct: [id number] Name: JOSS OROPEZA Rep #: [id number] : 1945 Provider: Asha Johnson Age/Sex: 78/M Location: [facility] Status: Signed Intake Vital Signs 08/20/23 [...] gauge x #50 ea 08/20/23 12/31/23 Rx 32 (BD Ultra-Fine Cristal Pen Needle) glimepiride 4 [...] complete sente (more content not included)... Normal [facility] CBC W Auto Differential pane l (Bld)on 11-19-2023 Basophils (Bld) [#/Vol] [facility] Basophils/100 WBC (Bld) 0.2 % [facility] Differential cell count method Nom (Bld) Auto [facility] Eosinophils (Bld) [#/Vol] [facility] Eosinophils/100 WBC (Bld) 0.2 % [facility] Erythrocyte distribution width (RBC) [Ratio] 19.6 % High 11.5 - 15.0 % [facility] Hematocrit (Bld) [Volume fraction] 22.9 % Low 39.0 - 51.0 % [facility] Hemoglobin (Bld) [Mass/Vol] 7.5 g/dL Low 13.0 - 17.0 g/dL [facility] Immature granulocytes (Bld) [#/Vol] [facility] Immature granulocytes/100 WBC (Bld) 0.2 % [facility] Interpretation and review of laboratory results Abnormal [facility] Lymphocytes (Bld) [#/Vol] 1.74 10*3/uL [facility] Lymphocytes/100 WBC (Bld) 37.3 % [facility] MCH (RBC) [Entitic mass] 39.1 pg High 26.0 - 34.0 pg [facility] MCHC (RBC) [Mass/Vol] 32.8 g/dL 30.5 - 36.0 g/dL [facility] MCV (RBC) [Entitic vol] 119.3 fL High 80.0 - 100.0 fL [facility] Monocytes (Bld) [#/Vol] 0.30 10*3/uL [facility] Monocytes/100 WBC (Bld) 6.4 % [facility] Neutrophils (Bld) [#/Vol] 2.59 10*3/uL [facility] Neutrophils/100 WBC (Bld) 55.7 % [facility] Nucleated RBC (Bld) [#/Vol] [facility] Nucleated RBC/100 WBC (Bld) [Ratio] [facility] Platelet mean volume (Bld) [Entitic vol] 12.6 fL 9.0 - 12.7 fL [facility] Platelets (Bld) [#/Vol] 116 10*3/uL Low [facility] RBC (Bld) [#/Vol] 1.92 10*6/uL Low 4.20 - 6.0 0 m/uL [facility] WBC (Bld) [#/Vol] 4.66 10*3/uL [facility] TYPE + SCREENon 11-19-2023 ABO group Nom (Bld) B [facility] Blood group antibody screen Ql Negative [facility] HIstorical Ab Scr Status Negative [facility] Rh Nom (Bld) Positive [facility] Type and Screen Expiration 11/22/2023 23:59 [facility] CBC W Auto Differential pane l (Bld)on 10-29-2023 Anisocytosis Ql (Bld) Present [facility] Basophils (Bld) [#/Vol] 0.00 10*3/uL [facility] Basophils/100 WBC (Bld) 0.0 % [facility] Differential cell count method Nom (Bld) Manual [facility] Eosinophils (Bld) [#/Vol] 0.00 10*3/uL [facility] Eosinophils/100 WBC (Bld) 0.0 % [facility] Erythrocyte distribution width (RBC) [Ratio] 20.4 % High 11.5 - 15.0 % [facility] Hematocrit (Bld) [Volume fraction] 24.4 % Low 39.0 - 51.0 % [facility] Hemoglobin (Bld) [Mass/Vol] 7.9 g/dL Low 13.0 - 17.0 g/dL [facility] Interpretation and review of laboratory results Abnormal [facility] Lymphocytes (Bld) [#/Vol] 2.09 10*3/uL [facility] Lymphocytes/100 WBC (Bld) 37.0 % [facility] MCH (RBC) [Entitic mass] 37.8 pg High 26.0 - 34.0 pg [facility] MCHC (RBC) [Mass/Vol] 32.4 g/dL 30.5 - 36.0 g/dL [facility] MCV (RBC) [Entitic vol] 116.7 fL High 80.0 - 100.0 fL [facility] Monocytes (Bld) [#/Vol] 0.23 10*3/uL NINF [facility] Monocytes/100 WBC (Bld) 4.0 % [facility] Neutrophils (Bld) [#/Vol] 3.33 10*3/uL [facility] Neutrophils/100 WBC (Bld) 59.0 % [facility] Nucleated RBC (Bld) [#/Vol] NINF [facility] Nucleated RBC/100 WBC (Bld) [Ratio] 0.0 % /100 WBC [facility] Ovalocytes LM Ql (Bld) Few [facility] Platelet mean volume (Bld) [Entitic vol] 12.0 fL 9.0 - 12.7 fL [facility] Platelets (Bld) [#/Vol] 112 10*3/uL Low [facility] Platelets Estimate (Bld) [#/Vol] Decreased [facility] Polychromasia LM Ql (Bld) Slight [facility] RBC (Bld) [#/Vol] 2.09 10*6/uL Low 4.20 - 6.0 0 m/uL [facility] Red Cell Morph Reviewed: see result s of individual morphologies [facility] WBC (Bld) [#/Vol] 5.65 10*3/uL [facility] This is an appended report. These results have been appended to a previously verified report. [facility] Laboratory - Blood bankon ABO group Nom (Bld) B [facility] Blood group antibody screen Ql Negative [facility] Rh Nom (Bld) Positive [facility] No Panel Informationon 10-28 HIstorical Ab Scr Status Negative [facility] Type and Screen Expiration 11/01/2023 23:59 [facility] CBC W Auto Differential pane l (Bld)on 10-03-2023 Basophils (Bld) [#/Vol] 0.03 10*3/uL [facility] Basophils/100 WBC (Bld) 0.6 % [facility] Differential cell count method Nom (Bld) Auto [facility] Eosinophils (Bld) [#/Vol] NINF [facility] Eosinophils/100 WBC (Bld) 0.2 % [facility] Erythrocyte distribution width (RBC) [Ratio] 21.3 % High 11.5 - 15.0 % [facility] Hematocrit (Bld) [Volume fraction] 26.1 % Low 39.0 - 51.0 % [facility] Hemoglobin (Bld) [Mass/Vol] 8.8 g/dL Low 13.0 - 17.0 g/dL [facility] Immature granulocytes (Bld) [#/Vol] 0.06 10*3/uL [facility] Immature granulocytes/100 WBC (Bld) 1.2 % [facility] Interpretation and review of laboratory results Abnormal [facility] Lymphocytes (Bld) [#/Vol] 2.41 10*3/uL [facility] Lymphocytes/100 WBC (Bld) 48.4 % [facility] MCH (RBC) [Entitic mass] 38.8 pg High 26.0 - 34.0 pg [facility] MCHC (RBC) [Mass/Vol] 33.7 g/dL 30.5 - 36.0 g/dL [facility] MCV (RBC) [Entitic vol] 115.0 fL High 80.0 - 100.0 fL [facility] Monocytes (Bld) [#/Vol] 0.35 10*3/uL [facility] Monocytes/100 WBC (Bld) 7.0 % [facility] Neutrophils (Bld) [#/Vol] 2.12 10*3/uL [facility] Neutrophils/100 WBC (Bld) 42.6 % [facility] Nucleated RBC (Bld) [#/Vol] 0.06 10*3/uL High [facility] Nucleated RBC/100 WBC (Bld) [Ratio] 1.2 % /100 WBC [facility] Platelet mean volume (Bld) [Entitic vol] 11.7 fL 9.0 - 12.7 fL [facility] Platelets (Bld) [#/Vol] 126 10*3/uL Low [facility] RBC (Bld) [#/Vol] 2.27 10*6/uL Low 4.20 - 6.0 0 m/uL [facility] WBC (Bld) [#/Vol] 4.98 10*3/uL [facility] TYPE + SCREENon 10-03-2023 ABO group Nom (Bld) B [facility] Blood group antibody screen Ql Negative [facility] HIstorical Ab Scr Status Negative [facility] Rh Nom (Bld) Positive [facility] Type and Screen Expiration 10/06/2023 23:59 [facility] CBC W Auto Differential pane l (Bld)on 09-13-2023 Basophils (Bld) [#/Vol] 0.03 10*3/uL [facility] Basophils/100 WBC (Bld) 0.7 % [facility] Differential cell count method Nom (Bld) Auto [facility] Eosinophils (Bld) [#/Vol] [facility] Eosinophils/100 WBC (Bld) 0.5 % [facility] Erythrocyte distribution width (RBC) [Ratio] 16.2 % High 11.5 - 15.0 % [facility] Hematocrit (Bld) [Volume fraction] 21.8 % Low 39.0 - 51.0 % [facility] Hemoglobin (Bld) [Mass/Vol] 7.1 g/dL Low 13.0 - 17.0 g/dL [facility] Immature granulocytes (Bld) [#/Vol] [facility] Immature granulocytes/100 WBC (Bld) 0.2 % [facility] Interpretation and review of laboratory results Abnormal [facility] Lymphocytes (Bld) [#/Vol] 1.65 10*3/uL [facility] Lymphocytes/100 WBC (Bld) 39.5 % [facility] MCH (RBC) [Entitic mass] 39.9 pg High 26.0 - 34.0 pg [facility] MCHC (RBC) [Mass/Vol] 32.6 g/dL 30.5 - 36.0 g/dL [facility] MCV (RBC) [Entitic vol] 122.5 fL High 80.0 - 100.0 fL [facility] Monocytes (Bld) [#/Vol] 0.19 10*3/uL [facility] Monocytes/100 WBC (Bld) 4.5 % [facility] Neutrophils (Bld) [#/Vol] 2.28 10*3/uL [facility] Neutrophils/100 WBC (Bld) 54.6 % [facility] Nucleated RBC (Bld) [#/Vol] [facility] Nucleated RBC/100 WBC (Bld) [Ratio] [facility] Platelet mean volume (Bld) [Entitic vol] 12.3 fL 9.0 - 12.7 fL [facility] Platelets (Bld) [#/Vol] 121 10*3/uL Low [facility] RBC (Bld) [#/Vol] 1.78 10*6/uL Low 4.20 - 6.0 0 m/uL [facility] WBC (Bld) [#/Vol] 4.18 10*3/uL [facility] CBC W Auto Differential pane l (Bld)on 08-23-2023 Basophils (Bld) [#/Vol] [facility] Basophils/100 WBC (Bld) 0.5 % [facility] Differential cell count method Nom (Bld) Auto [facility] Eosinophils (Bld) [#/Vol] [facility] Eosinophils/100 WBC (Bld) 0.5 % [facility] Erythrocyte distribution width (RBC) [Ratio] 16.3 % High 11.5 - 15.0 % [facility] Hematocrit (Bld) [Volume fraction] 22.2 % Low 39.0 - 51.0 % [facility] Hemoglobin (Bld) [Mass/Vol] 7.3 g/dL Low 13.0 - 17.0 g/dL [facility] Immature granulocytes (Bld) [#/Vol] [facility] Immature granulocytes/100 WBC (Bld) 0.2 % [facility] Interpretation and review of laboratory results Abnormal [facility] Lymphocytes (Bld) [#/Vol] 1.59 10*3/uL [facility] Lymphocytes/100 WBC (Bld) 38.4 % [facility] MCH (RBC) [Entitic mass] 40.3 pg High 26.0 - 34.0 pg [facility] MCHC (RBC) [Mass/Vol] 32.9 g/dL 30.5 - 36.0 g/dL [facility] MCV (RBC) [Entitic vol] 122.7 fL High 80.0 - 100.0 fL [facility] Monocytes (Bld) [#/Vol] 0.21 10*3/uL [facility] Monocytes/100 WBC (Bld) 5.1 % [facility] Neutrophils (Bld) [#/Vol] 2.29 10*3/uL [facility] Neutrophils/100 WBC (Bld) 55.3 % [facility] Nucleated RBC (Bld) [#/Vol] [facility] Nucleated RBC/100 WBC (Bld) [Ratio] [facility] Platelet mean volume (Bld) [Entitic vol] 12.4 fL 9.0 - 12.7 fL [facility] Platelets (Bld) [#/Vol] 115 10*3/uL Low [facility] RBC (Bld) [#/Vol] 1.81 10*6/uL Low 4.20 - 6.0 0 m/uL [facility] WBC (Bld) [#/Vol] 4.14 10*3/uL [facility] TYPE + SCREENon 08-23-2023 ABO group Nom (Bld) B [facility] Blood group antibody screen Ql Negative [facility] HIstorical Ab Scr Status Negative [facility] Rh Nom (Bld) Positive [facility] Type and Screen Expiration 08/26/2023 23:59 [facility] CBC W Auto Differential pane l (Bld)on 08-02-2023 Basophils (Bld) [#/Vol] NINF [facility] Basophils/100 WBC (Bld) 0.2 % [facility] Differential cell count method Nom (Bld) Auto [facility] Eosinophils (Bld) [#/Vol] [facility] Eosinophils/100 WBC (Bld) 0.2 % [facility] Erythrocyte distribution width (RBC) [Ratio] 16.3 % High 11.5 - 15.0 % [facility] Hematocrit (Bld) [Volume fraction] 23.5 % Low 39.0 - 51.0 % [facility] Hemoglobin (Bld) [Mass/Vol] 7.7 g/dL Low 13.0 - 17.0 g/dL [facility] Immature granulocytes (Bld) [#/Vol] NINF [facility] Immature granulocytes/100 WBC (Bld) 0.2 % [facility] Interpretation and review of laboratory results Abnormal [facility] Lymphocytes (Bld) [#/Vol] 1.81 10*3/uL [facility] Lymphocytes/100 WBC (Bld) 43.0 % [facility] MCH (RBC) [Entitic mass] 40.5 pg High 26.0 - 34.0 pg [facility] MCHC (RBC) [Mass/Vol] 32.8 g/dL 30.5 - 36.0 g/dL [facility] MCV (RBC) [Entitic vol] 123.7 fL High 80.0 - 100.0 fL [facility] Monocytes (Bld) [#/Vol] 0.23 10*3/uL [facility] Monocytes/100 WBC (Bld) 5.5 % [facility] Neutrophils (Bld) [#/Vol] 2.14 10*3/uL [facility] Neutrophils/100 WBC (Bld) 50.9 % [facility] Nucleated RBC (Bld) [#/Vol] [facility] Nucleated RBC/100 WBC (Bld) [Ratio] [facility] Platelet mean volume (Bld) [Entitic vol] 11.9 fL 9.0 - 12.7 fL [facility] Platelets (Bld) [#/Vol] 128 10*3/uL Low [facility] RBC (Bld) [#/Vol] 1.90 10*6/uL Low 4.20 - 6.0 0 m/uL [facility] WBC (Bld) [#/Vol] 4.21 10*3/uL [facility] CBC W Auto Differential pane l (Bld)on 07-12-2023 Anisocytosis Ql (Bld) Present [facility] Basophils (Bld) [#/Vol] 0.00 10*3/uL [facility] Basophils/100 WBC (Bld) 0.0 % [facility] Differential cell count method Nom (Bld) Manual [facility] Eosinophils (Bld) [#/Vol] 0.00 10*3/uL [facility] Eosinophils/100 WBC (Bld) 0.0 % [facility] Erythrocyte distribution width (RBC) [Ratio] 15.9 % High 11.5 - 15.0 % [facility] Hematocrit (Bld) [Volume fraction] 22.6 % Low 39.0 - 51.0 % [facility] Hemoglobin (Bld) [Mass/Vol] 7.4 g/dL Low 13.0 - 17.0 g/dL [facility] Interpretation and review of laboratory results Abnormal [facility] Lymphocytes (Bld) [#/Vol] 1.40 10*3/uL [facility] Lymphocytes/100 WBC (Bld) 50.0 % [facility] MCH (RBC) [Entitic mass] 40.4 pg High 26.0 - 34.0 pg [facility] MCHC (RBC) [Mass/Vol] 32.7 g/dL 30.5 - 36.0 g/dL [facility] MCV (RBC) [Entitic vol] 123.5 fL High 80.0 - 100.0 fL [facility] Monocytes (Bld) [#/Vol] 0.06 10*3/uL NINF [facility] Monocytes/100 WBC (Bld) 2.0 % [facility] Neutrophils (Bld) [#/Vol] 1.34 10*3/uL Low [facility] Neutrophils/100 WBC (Bld) 48.0 % [facility] Nucleated RBC (Bld) [#/Vol] NINF [facility] Nucleated RBC/100 WBC (Bld) [Ratio] 0.0 % /100 WBC [facility] Platelet mean volume (Bld) [Entitic vol] 11.2 fL 9.0 - 12.7 fL [facility] Platelets (Bld) [#/Vol] 100 10*3/uL Low [facility] Platelets Estimate (Bld) [#/Vol] Decreased [facility] Polychromasia LM Ql (Bld) Slight [facility] RBC (Bld) [#/Vol] 1.83 10*6/uL Low 4.20 - 6.0 0 m/uL [facility] Red Cell Morph Reviewed: see result s of individual morphologies [facility] WBC (Bld) [#/Vol] 2.80 10*3/uL Low [facility] This is an appended report. These results have been appended to a previously verified report. [facility] TYPE + SCREENon 07-12-2023 ABO group Nom (Bld) B [facility] Blood group antibody screen Ql Negative [facility] HIstorical Ab Scr Status Negative [facility] Rh Nom (Bld) Positive [facility] Type and Screen Expiration 07/15/2023 23:59 [facility] CNDSon 06-10-2023 CNDS HNO ID: [id number] Author: CHANEL GUO APRN.CNP Service: Hospital Medicine Author Type: [...] as: FOSAMAX aspirin 81 mg chewable tablet IFTIKHAR VAZQUEZ U-100 INSULIN 100 unit/mL (3 mL) Generic drug: insulin glargine BD CRISTAL 2ND GEN PEN NEEDLE 32 gauge x Generic drug: Insulin [place] (Disposable) cyanocobalamin 1,000 mcg Tab Commonly known [...] Your Medications These medications were sent to [facility] [address] [place], [place] [id number] [place], [place] [id number] [place] [address] clopidogrel 75 mg tablet FINAL DIAGNOSIS: TIA, uncontrolled DM Plan of care discussed with Provider, RN, Patient I have performed the [id number] and relevant services for a total of < 30 minutes. SIGNATURE: Chanel Guo APRN.CHRISTOPHER PATIENT NAME: Joss Oropeza DATE: June 10, 2023 TIME: 2:03 PM [facility] CONSULT PROGon 06-10-2023 CONSULT PROG HNO ID: [id number] Author: PRAVIN SUAREZ APRN.CHRISTOPHER Service: Neurology General Author Type: Nurse Practitioner [...] Daily NIHSS Score: 0 (06/10/23 1030 : Pravin Suarez, PADILLA.MEDICAL RECORD LIBRARIAN) 0 MENTAL STATUS: Alert, oriented to person, [...] Stroke Care and Prevention (personally reviewed by Pravin Suarez APRN.MEDICAL RECORD LIBRARIAN): Daily Rounding Date: 06/10/23 Daily Rounding Time: 1030 PROBLEM LIST: Principal Problem: TIA (transient ischemic [...] then discontinue (more content not included)... Normal [facility] ECHOon 06-10-2023 Echocardiography Echocardiography Rep ort: Transthoracic Echo [facility] Date of service: 06/10/2023 2:16:23 PM Ordering physician: FRANKLYN HER Indication: TIA Technologist: Rowena Kemp [facility] Interpreting physician: Jesse Smith MD PATIENT: Name: JOSS OROPEZA : [...] * * * Final * * * [employer] : [id number] Normal [facility] NM CARDIAC PERF STRESS/PHARM on 06-10-2023 NM CARDIAC PERF STRESS/PHARM * * *Final Report* * * DATE OF EXAM: Jun 10 2023 10:32AM FVN 0006 - NM CARDIAC PERF STRESS/PHARM / PROCEDURE REASON: Chest pain/anginal equiv, high CAD risk, not treadmill candidate * * * * Physician Interpretation * * * * Stress [facility] Vat Worker Report: [facility] Date of service: 06/10/2023 8:22:28 AM Supervising physician: Jesse Smith MD PATIENT: Name: JOSS OROPEZA Age: [...] later. See administered radiotracer and doses below. [facility] Date of service: 06/10/2023 8:22:28 AM Ordering [...] Final * * * NM CTAC Report: [facility] Date of service: 06/10/2023 8:22:28 AM CTAC interpreting physician: Edmundo Pyane MD PATIENT: Name: JOSS OROPEZA Age: 78 years Gender: M 1. Incidental Findings from limited non-diagnostic CTAC: - Coronary calcifications visualized. - Aortic valve leaflet calcifications visualized. Correlation with echocardiography suggested. Multiple calcified granuloma in right and left perihilar areas and adjacent lung carnes. No prior CT in chart. * * * Final * * * Stress ECG Report: [facility] Date of service: 06/10/2023 8:22:28 AM Ordering physician: BERNARD PUGH school psychology specialist: Rema Rodgers Process Development Associate: Alia Justin Interpreting physician: Jesse Smith MD Patient name: JOSS OROPEZA Age: 78 years Gender: M Height: 175.26 cm BSA: 2.14 m? Weight: 94.35 kg BMI: 30.7 kg/m? Indication: Dyspnea on exertion, Abnormal result of cardiovascular function study, Encounter for screening for cardiovascular disorders and Fatigue Stress ECG Conclusion: Conclusion: Normal Stress ECG Summary: The (more content not included)... Normal [facility] ALLIED HEALTHon 06-09-2023 ALLIED HEALTH HNO ID: [id number] Author: NELI RUST RT(R) Service: Radiology Author Type: Technologist [...] PATIENT PRESENTS WITH AN IMPLANTABLE OR ATTACHED GEOLOGICAL SPECIALIST: No RADIOLOGY DEPARTMENT: MR; Exam(s) Completed: Head: Routine Brain PERIPHERAL IV DATA: Not applicable SIGNED BY: Neli Rust RT(R) June 09, 2023 9:53 AM Normal [facility] CBC panel Auto (Bld)on 06-08 Erythrocyte distribution width (RBC) [Ratio] 15.7 % High 11.5-15.[address] [facility] Comment on above: Order Comment: Speci men Type: BLOOD SPECIMENOrdering Facility: [facility] Address: [address] [place] [address] Performed By: #### 5 8410-2 ####[facility] LABORATORYCLIA [id number] [place] [address] [place] Hematocrit (Bld) [Volume fraction] 24.8 % Low 39.0-51.[address] [facility] Comment on above: Order Comment: Speci men Type: BLOOD SPECIMENOrdering Facility: [facility] Address: [address] [place] [address] Performed By: #### 5 8410-2 ####[facility] LABORATORYCLIA [id number] [place] [address] [place] Hemoglobin (Bld) [Mass/Vol] 8.3 g/dL Low 13.0-17.[address] [facility] Comment on above: Order Comment: Speci men Type: BLOOD SPECIMENOrdering Facility: [facility] Address: [address] [place] [address] Performed By: #### 5 8410-2 ####[facility] LABORATORYCLIA [id number] [place] [address] [place] MCH (RBC) [Entitic mass] 39.5 pg High 26.0-34.[address] [facility] Comment on above: Order Comment: Speci men Type: BLOOD SPECIMENOrdering Facility: [facility] Address: [address] [place] [address] Performed By: #### 5 8410-2 ####[facility] LABORATORYCLIA [id number] [address] [place] [facility] MCHC (RBC) [Mass/Vol] 33.5 g/dL Normal 30.5-36.[address] [facility] Comment on above: Order Comment: Speci men Type: BLOOD SPECIMENOrdering Facility: [facility] Address: [address] [place] [address] Performed By: #### 5 8410-2 ####[facility] LABORATORYCLIA [id number] [address] [place] MCV (RBC) [Entitic vol] 118.1 fL High 80.0-100.[address] [facility] Comment on above: Order Comment: Speci men Type: BLOOD SPECIMENOrdering Facility: [facility] Address: [address] [place] [address] Performed By: #### 5 8410-2 ####[facility] LABORATORYCLIA [id number] [place] [address] [place] Nucleated RBC (Bld) [#/Vol] 0.05 10*3/uL High <0.[address] [facility] Comment on above: Order Comment: Speci men Type: BLOOD SPECIMENOrdering Facility: [facility] Address: [address] [place] [address] Performed By: #### 5 8410-2 ####[facility] LABORATORYCLIA [id number] [address] [place] Platelet mean volume (Bld) [Entitic vol] 12.6 fL Normal 9.0-12.[address] [facility] Comment on above: Order Comment: Speci men Type: BLOOD SPECIMENOrdering Facility: [facility] Address: [address] [place] [address] Performed By: #### 5 8410-2 ####[facility] LABORATORYCLIA [id number] [place] [address] [place] Platelets (Bld) [#/Vol] 119 10*3/uL Low 150-[address] [facility] Comment on above: Order Comment: Speci men Type: BLOOD SPECIMENOrdering Facility: [facility] Address: [address] [place] [address] Performed By: #### 5 8410-2 ####[facility] LABORATORYCLIA [id number] [place] [address] [place] RBC (Bld) [#/Vol] 2.10 10*6/uL Low 4.20-6.00 [facility] Comment on above: Order Comment: Speci men Type: BLOOD SPECIMENOrdering Facility: [facility] Address: [address] [place] [address] Performed By: #### 5 8410-2 ####[facility] LABORATORYCLIA [id number] [place] [address] [place] WBC (Bld) [#/Vol] 5.94 10*3/uL Normal 3.70-11.00 [facility] Comment on above: Order Comment: Speci men Type: BLOOD SPECIMENOrdering Facility: [facility] Address: [address] [place] [address] Performed By: #### 5 8410-2 ####[facility] LABORATORYCLIA [id number] [place] [id number] [facility] CONSULTon 06-09-2023 CONSULT HNO ID: [id number] Author: PRAVIN SUAREZ APRN.MEDICAL RECORD LIBRARIAN Service: Neurology General Author Type: Nurse Practitioner Type: Consults Filed: 06/09/2023 14:50 Note Text: NEURO STROKE INITIAL CONSULT SERVICE DATE: 06/09/2023 SERVICE TIME: 1115 REQUESTING PHYSICIAN: Franklyn Her APRN.MEDICAL RECORD LIBRARIAN PCP: German Robertson MD REASON FOR STROKE [...] the time, no focal deficits. Went to [place] workup negative. 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 Normal [facility] CONSULT HNO ID: [id number] Author: JESSE SMITH MD Service: Cardiovascular Medicine Author Type: Physician Type: Consults Filed: 06/09/2023 15:47 Note Text: CONSULT: CARDIOLOGY SERVICE SERVICE DATE: June 09, 2023 SERVICE TIME: 9:20 AM CONSULTING PHYSICIAN: Dr. Smith PCP: German Robertson MD ATTENDING: Stef Amanda MD REASON FOR CONSULT: Cardiology Evaluation ASSESSMENT AND PLAN: Principal Problem: Expressive aphasia Exertional dyspnea Fatigue Comment/Plan: No [place] or ACS. Not in acute heart failure. [...] JONATHON, 20-39% stenosis LICA 2020). Denies prior [place] or CAD, states he had a normal heart catheterization at [facility] many years ago. Macrocytic anemia, hepatic steatosis. [...] Stroke (ce (more content not included)... Normal [facility] Comprehensive metabolic 2000 panelon 06-09-2023 Albumin [Mass/Vol] 3.9 g/dL Normal 3.9-4.9 [facility] Comment on above: Order Comment: Speci men Type: BLOOD SPECIMENOrdering Facility: [facility] Address: [address] [place] [address] Performed By: #### 2 4323-8, 3015-04, ####[facility] LABORATORYCLIA [id number] [place] [id number] [place] ALP [Catalytic activity/Vol] 55 U/L Normal 38-[address] [facility] Comment on above: Order Comment: Speci men Type: BLOOD SPECIMENOrdering Facility: [facility] Address: [address] [place] [address] Performed By: #### 2 4323-8, 3015-3, ####[facility] LABORATORYCLIA [id number] [place] [id number] [place] ALT [Catalytic activity/Vol] 11 U/L Normal 10-[address] [facility] Comment on above: Order Comment: Speci men Type: BLOOD SPECIMENOrdering Facility: [facility] Address: [address] [place] [address] Performed By: #### 2 4323-8, 3, ####[facility] LABORATORYCLIA [id number] [place] [address] [place] Anion gap [Moles/Vol] 10 mmol/L Normal 9-[address] [facility] Comment on above: Order Comment: Speci men Type: BLOOD SPECIMENOrdering Facility: [facility] Address: [address] [place] [address] Performed By: #### 2 4323-8, 3015-04, ####[facility] LABORATORYCLIA [id number] [place] [id number] [place] AST [Catalytic activity/Vol] 16 U/L Normal 14-[address] [facility] Comment on above: Order Comment: Speci men Type: BLOOD SPECIMENOrdering Facility: [facility] Address: [address] [place] [address] Performed By: #### 2 4323-8, 3015-04, ####[facility] LABORATORYCLIA [id number] [place] [id number] [place] Bilirubin [Mass/Vol] 0.2 mg/dL Normal 0.2-1.[address] [facility] Comment on above: Order Comment: Speci men Type: BLOOD SPECIMENOrdering Facility: [facility] Address: [address] [place] [address] Performed By: #### 2 4323-8, 3, ####[facility] LABORATORYCLIA [id number] [place] [id number] [place] Calcium [Mass/Vol] 9.1 mg/dL Normal 8.5-10.2 [facility] Comment on above: Order Comment: Speci men Type: BLOOD SPECIMENOrdering Facility: [facility] Address: [address] [place] [address] Performed By: #### 2 4323-8, 3016-3, ####[facility] LABORATORYCLIA [id number] [place] [address] [place] Chloride [Moles/Vol] 107 mmol/L High 97-[address] [facility] Comment on above: Order Comment: Speci men Type: BLOOD SPECIMENOrdering Facility: [facility] Address: [address] [place] [address] Performed By: #### 2 4323-8, 3016-3, ####[facility] LABORATORYCLIA [id number] [place] [id number] [place] CO2 [Moles/Vol] 22 mmol/L Normal 22-[address] [facility] Comment on above: Order Comment: Speci men Type: BLOOD SPECIMENOrdering Facility: [facility] Address: [address] [place] [address] Performed By: #### 2 4323-8, 6-3, ####[facility] LABORATORYCLIA [id number] [place] [id number] [place] Creatinine [Mass/Vol] 1.00 mg/dL Normal 0.73-1.[address] [facility] Comment on above: Order Comment: Speci men Type: BLOOD SPECIMENOrdering Facility: [facility] Address: [address] [place] [address] Performed By: #### 2 4323-8, 6-3, ####[facility] LABORATORYCLIA [id number] [place] [id number] [place] Creatinine and Glomerular filtration rate.predicted panel (S/P/Bld) 76 mL/min/1.73m??? Normal >=[address] [facility] Comment on above: Order Comment: Speci men Type: BLOOD SPECIMENOrdering Facility: [facility] Address: [address] [place] [address] Result Comment: Sharon mated Glomerular Filtration Rate [...] actual GFR. Performed By: #### 2 4323-8, 3015-, ####[facility] LABORATORYCLIA [id number] [place] [id number] [place] Glucose [Mass/Vol] 124 mg/dL High 74-99 [facility] Comment on above: Order Comment: Mathew men Type: BLOOD SPECIMENOrdering Facility: [facility] Address: [address] [place] [address] Result Comment: The [place] Diabetes Association (ADA) provides guidance for cutoff [...] Standards of Medical Care in Diabetes 2016, [place] Diabetes Association. Diabetes Care. 2016.39(Suppl 1). Performed By: #### 2 4323-8, 3015-04, ####[facility] LABORATORYCLIA [id number] [place] [id number] [place] Potassium [Moles/Vol] 4.3 mmol/L Normal 3.7-5.[address] [facility] Comment on above: Order Comment: Mathew portillo Type: BLOOD SPECIMENOrdering Facility: [facility] Address: [address] [place] [id number] Performed By: #### 2 4323-8, 3015-04, ####[facility] LABORATORYCLIA [id number] [place] [address] [place] Protein [Mass/Vol] 6.4 g/dL Normal 6.3-8.0 [facility] Comment on above: Order Comment: Mathew portillo Type: BLOOD SPECIMENOrdering Facility: [facility] Address: [address] [place], [place] [address] Performed By: #### 2 4323-8, 6-3, ####[facility] LABORATORYCLIA [id number] [place] [address] [place] Sodium [Moles/Vol] 139 mmol/L Normal 136-144 [facility] Comment on above: Order Comment: Speci men Type: BLOOD SPECIMENOrdering Facility: [facility] Address: [address] [place] [address] Performed By: #### 2 4323-8, 3015-3, ####[facility] LABORATORYCLIA [id number] [place] [id number] [place] Urea nitrogen [Mass/Vol] 18 mg/dL Normal 9-[address] [facility] Comment on above: Order Comment: Speci men Type: BLOOD SPECIMENOrdering Facility: [facility] Address: [address] [place] [address] Performed By: #### 2 4323-8, 3, ####[facility] LABORATORYCLIA [id number] [place] [id number] [place] HIGH SENSITIVITY TROPONIN To n 06-09-2023 Troponin T.cardiac High sensitivity method [Mass/Vol] 17 ng/L High <[address] [facility] Comment on above: Order Comment: Speci men Type: BLOOD SPECIMENOrdering Facility: [facility] Address: [address] [place] [address] Result Comment: When assessing risk for acute [...] day MACE. Performed By: #### H STNT ####[facility] LABORATORYCLIA [id number] [place] [id number] [place] Troponin T.cardiac High sensitivity method [Mass/Vol] 18 ng/L High <[address] [facility] Comment on above: Order Comment: Mathew portillo Type: BLOOD SPECIMENOrdering Facility: [facility] Address: [address] [place] [address] Result Comment: When assessing risk for acute [...] day MACE. Performed By: #### H STNT ####[facility] LABORATORYCLIA [id number] [place] [address] [place] HbA1c (Bld)on 06-09-2023 Average glucose Estimated from glycated hemoglobin (Bld) [Mass/Vol] 217 mg/dL Normal [facility] Comment on above: Order Comment: Mathew portillo Type: BLOOD SPECIMENOrdering Facility: [facility] Address: [address] [place] [address] Result Comment: eAG: (Estimated average glucose) is a calculated value from HgbA1c and is operations support representative of the average blood glucose level in the last 2-3 month period. Performed By: #### 5 5454-3 ####[facility] LABCLIA [id number] [address] [place] HbA1c (Bld) [Mass fraction] 9.2 % High 4.3-5.[address] [facility] Comment on above: Order Comment: Mathew portillo Type: BLOOD SPECIMENOrdering Facility: [facility] Address: [address] [place] [address] Result Comment: Amer [place] Diabetes Association guidelines indicate that patients with HgbA1c in the range 5.7-6.4% are at increased risk for development of diabetes, and intervention by lifestyle modification may be beneficial. HgbA1c greater or equal to 6.5% is considered diagnostic of diabetes. Performed By: #### 5 5454-3 ####[facility] LABCLIA [id number] [address] [place] MRI BRAIN WO [...] loss and mild sclerotic chronic microvascular ischemia. Foundry Process Engineer: DIVINA Transcribe Date/Time: Jun 09 2023 11:34A Dictated by : SELENA DISLA MD This examination was interpreted and the report reviewed and electronically signed by: SELENA DISLA MD on Jun 09 2023 11:36AM EST [id number] Normal [facility] Magnesium SerPl-mCncon 06-08 Magnesium [Mass/Vol] 1.8 mg/dL Normal 1.7-2.[address] [facility] Comment on above: Order Comment: Speci men Type: BLOOD SPECIMENOrdering Facility: [facility] Address: [address] [place] [address] Performed By: #### 2 4323-8, 3016-3, 61411-6 ####[facility] LABORATORYCLIA [id number] [place] [id number] [place] TOXICOLOGY SCREEN, ROUTINE U RINEon 06-09-2023 Amphetamines Confirm (U) [Mass/Vol] Negative Normal Negative [facility] Comment on above: Order Comment: Speci men Type: URINE SPECIMENOrdering Facility: [facility] Address: [address] [place] [address] Result Comment: Cuto ff threshold at 1000 ng/mL. Performed By: #### U TOX2 ####[facility] LABORATORYCLIA [id number] [place] [address] [place] BARBITURATES, URINE Negative Normal Negative [facility] Comment on above: Order Comment: Speci men Type: URINE SPECIMENOrdering Facility: [facility] Address: [address] [place] [address] Result Comment: Cuto ff threshold at 200 ng/mL. Performed By: #### U TOX2 ####[facility] LABORATORYCLIA [id number] [place] [address] [place] BENZODIAZEPINES, UR Negative Normal Negative [facility] Comment on above: Order Comment: Speci men Type: URINE SPECIMENOrdering Facility: [facility] Address: [address] [place] [address] Result Comment: Cuto ff threshold at 200 ng/mL. Performed By: #### U TOX2 ####[facility] LABORATORYCLIA [id number] [place] [address] [place] Cannabinoids Screen Ql (U) Negative Normal Negative [facility] Comment on above: Order Comment: Speci men Type: URINE SPECIMENOrdering Facility: [facility] Address: [address] [place] [address] Result Comment: Cuto ff threshold at 50 ng/mL. Performed By: #### U TOX2 ####[facility]ORATORYCLIA [id number] [place] [address] [place] Cocaine Ql (U) Negative Normal Negative [facility] Comment on above: Order Comment: Speci men Type: URINE SPECIMENOrdering Facility: [facility] Address: [address] [place] [address] Result Comment: Cuto ff threshold at 300 ng/mL. Performed By: #### U TOX2 ####[facility] LABORATORYCLIA [id number] [address] Ethanol (U) [Mass/Vol] <11 Normal <[address] [facility] Comment on above: Order Comment: Speci men Type: URINE SPECIMENOrdering Facility: [facility] Address: [address] [place] [address] Performed By: #### U TOX2 ####[facility] LABORATORYCLIA [id number] [address] Opiates Screen Ql (U) Negative Normal Negative [facility] Comment on above: Order Comment: Speci men Type: URINE SPECIMENOrdering Facility: [facility] Address: [address] [place] [address] Result Comment: Cuto ff threshold at 300 ng/mL. Performed By: #### U TOX2 ####[facility] LABORATORYCLIA [id number] [address] oxyCODONE cutoff Screen (U) [Mass/Vol] Negative Normal Negative [facility] Comment on above: Order Comment: Speci men Type: URINE SPECIMENOrdering Facility: [facility] Address: [address] [place] [address] Result Comment: Cuto ff threshold at 100 ng/mL. Performed By: #### U TOX2 ####[facility] LABORATORYCLIA [id number] [address] Phencyclidine Ql (U) Negative Normal Negative [facility] Comment on above: Order Comment: Speci men Type: URINE SPECIMENOrdering Facility: [facility] Address: [address] [place] [address] Result Comment: Cuto ff threshold at 25 ng/mL. Performed By: #### U TOX2 ####[facility] LABORATORYCLIA [id number] [place] [id number] [place] TSH SerPl-aCncon 04-14-2024 TSH Qn 2.680 m[IU]/L Normal 0.270-4.[address] [facility] Comment on above: Order Comment: Speci men Type: BLOOD SPECIMENOrdering Facility: [facility] Address: [address] [place] [address] Performed By: #### 2 4323-8, 3016-3, 74700-4 ####[facility] LABORATORYCLIA [id number] [address] Urinalysis complete panel (U )on 06-09-2023 Bilirubin Ql (U) Negative Normal Negative [facility] Comment on above: Order Comment: Speci men Type: URINE SPECIMENOrdering Facility: [facility] Address: [address] [place] [address] Performed By: #### 2 4356-8 ####[facility] LABORATORYCLIA [id number] [address] [place] Clarity (Unsp spec) Clear Normal Clear [facility] Comment on above: Order Comment: Speci men Type: URINE SPECIMENOrdering Facility: [facility] Address: [address] [place] [address] Performed By: #### 2 4356-8 ####[facility] LABORATORYCLIA [id number] [place] [address] [place] [facility] Color (U) Colorless Normal Yellow [facility] Comment on above: Order Comment: Speci men Type: URINE SPECIMENOrdering Facility: [facility] Address: [address] [place] [address] Performed By: #### 2 4356-8 ####[facility] LABORATORYCLIA [id number] [address] [place] Glucose Test strip (U) [Mass/Vol] Negative Normal Trace, Negative [facility] Comment on above: Order Comment: Speci men Type: URINE SPECIMENOrdering Facility: [facility] Address: [address] [place] [address] Performed By: #### 2 4356-8 ####[facility] LABORATORYCLIA [id number] [place] [id number] [place] Hemoglobin Ql (U) Negative Normal Negative, Trace [facility] Comment on above: Order Comment: Speci men Type: URINE SPECIMENOrdering Facility: [facility] Address: [address] [place] [address] Performed By: #### 2 4356-8 ####[facility] LABORATORYCLIA [id number] [place] [address] [place] Ketones Ql (U) Negative Normal Negative, Trace [facility] Comment on above: Order Comment: Speci men Type: URINE SPECIMENOrdering Facility: [facility] Address: [address] [place] [address] Performed By: #### 2 4356-8 ####[facility] LABORATORYCLIA [id number] [address] [place] Leukocyte esterase Test strip Ql (U) Negative Normal Negative, 25 Ray/uL [facility] Comment on above: Order Comment: Speci men Type: URINE SPECIMENOrdering Facility: [facility] Address: [address] [place] [address] Performed By: #### 2 4356-8 ####[facility] LABORATORYCLIA [id number] [place] [address] [place] Nitrite Ql (U) Negative Normal Negative [facility] Comment on above: Order Comment: Speci men Type: URINE SPECIMENOrdering Facility: [facility] Address: [address] [place] [address] Performed By: #### 2 4356-8 ####[facility] LABORATORYCLIA [id number] [place] [address] [place] pH (U) 6.0 [pH] Normal 5.0-8.[address] [facility] Comment on above: Order Comment: Speci men Type: URINE SPECIMENOrdering Facility: [facility] Address: [address] [place] [address] Performed By: #### 2 4356-8 ####[facility] LABORATORYCLIA [id number] [place] [address] [place] Protein (U) [Mass/Vol] Negative Normal Trace, Negative [facility] Comment on above: Order Comment: Speci men Type: URINE SPECIMENOrdering Facility: [facility] Address: [address] [place] [address] Performed By: #### 2 4356-8 ####[facility] LABORATORYCLIA [id number] [place] [address] [place] RBC LM.HPF (Urine sed) [#/Area] 0-3 /HPF Normal 0-3 /HPF [facility] Comment on above: Order Comment: Speci men Type: URINE SPECIMENOrdering Facility: [facility] Address: [address] [place] [address] Performed By: #### 2 4356-8 ####[facility] LABORATORYCLIA [id number] [place] [address] [place] Specific gravity (U) [Rel density] 1.023 Normal 1.005-1.[address] [facility] Comment on above: Order Comment: Speci men Type: URINE SPECIMENOrdering Facility: [facility] Address: [address] [place] [address] Performed By: #### 2 4356-8 ####[facility] LABORATORYCLIA [id number] [place] [address] [place] Urobilinogen Ql (U) Normal Normal Normal [facility] Comment on above: Order Comment: Speci men Type: URINE SPECIMENOrdering Facility: [facility] Address: [address] [place] [address] Performed By: #### 2 4356-8 ####[facility] LABORATORYCLIA [id number] [place] [address] [place] WBC LM.HPF (Urine sed) [#/Area] 0-5 /HPF Normal 0-5 /HPF [facility] Comment on above: Order Comment: Speci men Type: URINE SPECIMENOrdering Facility: [facility] Address: [address] [place] [address] Performed By: #### 2 4356-8 ####[facility] LABORATORYCLIA [id number] [place] [id number] [place] Basic metabolic 2000 panelon 06-08-2023 Anion gap [Moles/Vol] 12 mmol/L Normal 9-[address] [facility] Comment on above: Order Comment: Speci men Type: BLOOD SPECIMENOrdering Facility: [facility] Address: [address] [place] [address] Performed By: #### 2 4331-1, HSTNT, 03982-4 ####[facility] LABORATORYCLIA [id number] [place] [address] [place] Calcium [Mass/Vol] 9.7 mg/dL Normal 8.5-10.2 [facility] Comment on above: Order Comment: Speci men Type: BLOOD SPECIMENOrdering Facility: [facility] Address: [address] [place] [address] Performed By: #### 2 4331-1, HSTNT, 06688-1 ####[facility] LABORATORYCLIA [id number] [place] [id number] [place] Chloride [Moles/Vol] 101 mmol/L Normal 97-[address] [facility] Comment on above: Order Comment: Speci men Type: BLOOD SPECIMENOrdering Facility: [facility] Address: [address] [place] [address] Performed By: #### 2 4331-1, HSTNT, 95823-1 ####[facility]ORATORYCLIA [id number] [place] [id number] [place] CO2 [Moles/Vol] 22 mmol/L Normal 22-[address] [facility] Comment on above: Order Comment: Speci men Type: BLOOD SPECIMENOrdering Facility: [facility] Address: [address] [place] [address] Performed By: #### 2 4331-1, HSTNT, 15232-9 ####[facility] LABORATORYCLIA [id number] [place] [id number] [place] Creatinine [Mass/Vol] 1.04 mg/dL Normal 0.73-1.[address] [facility] Comment on above: Order Comment: Speci men Type: BLOOD SPECIMENOrdering Facility: [facility] Address: [address] [place] [address] Performed By: #### 2 4331-1, HSTNT, 12799-1 ####[facility] LABORATORYCLIA [id number] [place] [address] [place] Creatinine and Glomerular filtration rate.predicted panel (S/P/Bld) 73 mL/min/1.73m??? Normal >=[address] [facility] Comment on above: Order Comment: Mathew portillo Type: BLOOD SPECIMENOrdering Facility: [facility] Address: [address] [place] [address] Result Comment: Sharon mated Glomerular Filtration Rate [...] GFR. Performed By: #### 2 4331-1, HSTNT, 64785-1 ####[facility] LABORATORYCLIA [id number] [place] [address] [place] Glucose [Mass/Vol] 201 mg/dL High 74-99 [facility] Comment on above: Order Comment: Mathew portillo Type: BLOOD SPECIMENOrdering Facility: [facility] Address: [address] [place] [address] Result Comment: The [place] Diabetes Association (ADA) provides guidance for cutoff [...] Standards of Medical Care in Diabetes 2016, [place] Diabetes Association. Diabetes Care. 2016.39(Suppl 1). Performed By: #### 2 4331-1, HSTNT, 13176-0 ####[facility] LABORATORYCLIA [id number] [place] [address] [place] Potassium [Moles/Vol] 4.4 mmol/L Normal 3.7-5.[address] [facility] Comment on above: Order Comment: Speci men Type: BLOOD SPECIMENOrdering Facility: [facility] Address: [address] [place] [address] Performed By: #### 2 4331-1, HSTNT, 41999-0 ####[facility] LABORATORYCLIA [id number] [place] [address] [place] Sodium [Moles/Vol] 135 mmol/L Low 136-144 [facility] Comment on above: Order Comment: Speci men Type: BLOOD SPECIMENOrdering Facility: [facility] Address: [address] [place] [address] Performed By: #### 2 4331-1, HSTNT, 33699-3 ####[facility] LABORATORYCLIA [id number] [place] [address] [place] Urea nitrogen [Mass/Vol] 23 mg/dL Normal 9-[address] [facility] Comment on above: Order Comment: Speci men Type: BLOOD SPECIMENOrdering Facility: [facility] Address: [address] [place] [address] Performed By: #### 2 4331-1, HSTNT, 39374-8 ####[facility] LABORATORYCLIA [id number] [place] [address] [place] CBC panel Auto (Bld)on 06-07 Erythrocyte distribution width (RBC) [Ratio] 15.9 % High 11.5-15.[address] [facility] Comment on above: Order Comment: Speci men Type: BLOOD SPECIMENOrdering Facility: [facility] Address: [address] [place] [address] Performed By: #### 5 8410-2 ####[facility] LABORATORYCLIA [id number] [place] [address] [place] Hematocrit (Bld) [Volume fraction] 27.4 % Low 39.0-51.[address] [facility] Comment on above: Order Comment: Speci men Type: BLOOD SPECIMENOrdering Facility: [facility] Address: [address] [place] [address] Performed By: #### 5 8410-2 ####[facility] LABORATORYCLIA [id number] [address] [place] [facility] Hemoglobin (Bld) [Mass/Vol] 9.3 g/dL Low 13.0-17.[address] [facility] Comment on above: Order Comment: Speci men Type: BLOOD SPECIMENOrdering Facility: [facility] Address: [address] [place] [address] Performed By: #### 5 8410-2 ####[facility] LABORATORYCLIA [id number] [address] [place] MCH (RBC) [Entitic mass] 40.1 pg High 26.0-34.[address] [facility] Comment on above: Order Comment: Speci men Type: BLOOD SPECIMENOrdering Facility: [facility] Address: [address] [place] [address] Performed By: #### 5 8410-2 ####[facility] LABORATORYCLIA [id number] [address] [place] MCHC (RBC) [Mass/Vol] 33.9 g/dL Normal 30.5-36.[address] [facility] Comment on above: Order Comment: Speci men Type: BLOOD SPECIMENOrdering Facility: [facility] Address: [address] [place] [address] Performed By: #### 5 8410-2 ####[facility] LABORATORYCLIA [id number] [address] [place] MCV (RBC) [Entitic vol] 118.1 fL High 80.0-100.[address] [facility] Comment on above: Order Comment: Speci men Type: BLOOD SPECIMENOrdering Facility: [facility] Address: [address] [place] [address] Performed By: #### 5 8410-2 ####[facility] LABORATORYCLIA [id number] [address] [place] Nucleated RBC (Bld) [#/Vol] 0.05 10*3/uL High <0.[address] [facility] Comment on above: Order Comment: Speci men Type: BLOOD SPECIMENOrdering Facility: [facility] Address: [address] [place] [address] Performed By: #### 5 8410-2 ####[facility] LABORATORYCLIA [id number] [place] [id number] [place] Platelet mean volume (Bld) [Entitic vol] 12.9 fL High 9.0-12.[address] [facility] Comment on above: Order Comment: Speci men Type: BLOOD SPECIMENOrdering Facility: [facility] Address: [address] [place] [address] Performed By: #### 5 8410-2 ####[facility] LABORATORYCLIA [id number] [place] [id number] [place] Platelets (Bld) [#/Vol] 132 10*3/uL Low 150-[address] [facility] Comment on above: Order Comment: Speci men Type: BLOOD SPECIMENOrdering Facility: [facility] Address: [address] [place] [address] Performed By: #### 5 8410-2 ####[facility] LABORATORYCLIA [id number] [place] [id number] [place] RBC (Bld) [#/Vol] 2.32 10*6/uL Low 4.20-6.00 [facility] Comment on above: Order Comment: Speci men Type: BLOOD SPECIMENOrdering Facility: [facility] Address: [address] [place] [address] Performed By: #### 5 8410-2 ####[facility] LABORATORYCLIA [id number] [place] [id number] [place] WBC (Bld) [#/Vol] 6.73 10*3/uL Normal 3.70-11.00 [facility] Comment on above: Order Comment: Speci men Type: BLOOD SPECIMENOrdering Facility: [facility] Address: [address] [place] [address] Performed By: #### 5 8410-2 ####[facility] LABORATORYCLIA [id number] [place] [address] [place] BRAIN WO [...] basilar artery, and major branch vessels. Both greenhouse worker are patent with conventional origin on the left and origin on the right. Dural venous sinuses and major deep draining veins are patent. Human Resources Operations Specialist (topogram) images: No significant findings. IMPRESSION: 1. No acute intracranial findings. Chronic changes as described. 2. No large vessel occlusion or high-grade arterial stenosis intracranially. 3. No hemodynamically significant stenosis of the extracranial carotid or vertebral artery segments. Arterial blood flow was measured to detect acute large vessel occlusion by computer aided detection software: None. Concordance between software and imaging review: Concordant. Foundry Process Engineer: DIVINA Transcribe Date/Time: Jun 08 2023 6:48P Dictated by : EL NUNEZ MD This examination was interpreted and the report reviewed and electronically signed by: EL NUNEZ MD on Jun 08 2023 6:55PM EST [id number] Normal [facility] CTA HEAD W IVCONon 4 CTA HEAD [...] basilar artery, and major branch vessels. Both greenhouse worker are patent with conventional origin on the left and origin on the right. Dural venous sinuses and major deep draining veins are patent. Human Resources Operations Specialist (topogram) images: No significant findings. IMPRESSION: 1. No acute intracranial findings. Chronic changes as described. 2. No large vessel occlusion or high-grade arterial stenosis intracranially. 3. No hemodynamically significant stenosis of the extracranial carotid or vertebral artery segments. Arterial blood flow was measured to detect acute large vessel occlusion by computer aided detection software: None. Concordance between software and imaging review: Concordant. Foundry Process Engineer: PSCB Transcribe Date/Time: Jun 08 2023 6:48P Dictated by : LE NUNEZ MD This examination was interpreted and the report reviewed and electronically signed by: EL NUNEZ MD on Jun 08 2023 6:55PM EST [id number] Normal [facility] CTA NECK W IVCONon 4 CTA NECK W IVCON * * *Final [...] basilar artery, and major branch vessels. Both greenhouse worker are patent with conventional origin on the left and origin on the right. Dural venous sinuses and major deep draining veins are patent. Human Resources Operations Specialist (topogram) images: No significant findings. IMPRESSION: 1. No acute intracranial findings. Chronic changes as described. 2. No large vessel occlusion or high-grade arterial stenosis intracranially. 3. No hemodynamically significant stenosis of the extracranial carotid or vertebral artery segments. Arterial blood flow was measured to detect acute large vessel occlusion by computer aided detection software: None. Concordance between software and imaging review: Concordant. Foundry Process Engineer: DIVINA Transcribe Date/Time: Jun 08 2023 6:48P Dictated by : EL NUNEZ MD This examination was interpreted and the report reviewed and electronically signed by: EL NUNEZ MD on Jun 08 2023 6:55PM EST [id number] Normal [facility] ECG COMPLETEon 06-08-2023 ECG COMPLETE Ventricular Rate : 6 9 BPM Atrial Rate : 69 BPM P-R Interval : 175 ms QRS Duration : 86 ms Q-T Interval : 401 ms QTC Calculation(Bazett) : 430 ms Calculated P [place] : -24 degrees Calculated R [place] : 5 degrees Calculated T [place] : 3 degrees Sinus rhythm Normal ECG 711 No Stemi Confirmed by MD SPENSER, CHANEL ([id number]), pictures editor MARYLIN BRASHER ([id number]) on 06/09/2023 11:03:53 AM NAME : JOSS OROPEZA PID : [id number] : 1945 Gender : Male Race : ORD : [id number] Procedure Date : Jun 08 2023 16:43:30 Edit Date : Jun 09 2023 11:03:57 Diagnosis: Sinus rhythm Normal ECG 711 No Stemi Confirmed by MD SPENSER, CHANEL ([id number]), pictures editor MARYLIN BRASHER ([id number]) on 06/09/2023 11:03:53 AM Test Reason : Stroke Location : 402 : FVED [id number] Overread By : MD SPENSER,CHANEL Edited By : MARYLIN BRASHER Referred By : , Acquired by : [id number], [facility] ED NOTEon 06-08-2023 ED NOTE HNO ID: [id number] Author: XAVIER BUSTAMANTE RN Service: Nursing Author Type: Registered Nurse Type: ED Notes Filed: 06/08/2023 21:55 Note Text: Report called to RN [facility] ED NOTE HNO ID: [id number] Author: XAVIER BUSTAMANTE RN Service: Nursing Author [...] call light within reach. Awaiting bed assignment [facility] ED NOTE HNO ID: [id number] Author: XAVIER BUSTAMANTE RN Service: Nursing Author Type: Registered Nurse Type: ED Notes Filed: 06/08/2023 19:11 Note Text: Assumed care of pt [facility] ED NOTE HNO ID: [id number] Author: JOHN BROWN RN Service: ? Author Type: Registered Nurse Type: ED Notes Filed: 06/08/2023 19:08 Note Text: Report given to accepting nurse [facility] ED NOTE HNO ID: [id number] Author: JOHN BROWN RN Service: ? Author Type: Registered Nurse Type: ED Notes Filed: 06/08/2023 18:46 Note Text: Patient at restroom at this time. [facility] ED NOTE HNO ID: [id number] Author: JOHN BROWN RN Service: ? Author Type: Registered Nurse Type: ED Notes Filed: 06/08/2023 17:46 Note Text: Hourly neuro checks ok per Dr. Dueñas. [facility] ED NOTE HNO ID: [id number] Author: JOHN BROWN RN Service: ? Author Type: Registered Nurse Type: ED Notes Filed: 06/08/2023 16:44 Note Text: Patient brought in by EMS for stroke like symptoms. [facility] ED NOTE HNO ID: [id number] Author: PRAVIN MORRIS RN Service: ? Author Type: Registered Nurse Type: ED Notes Filed: 06/08/2023 16:36 Note Text: Bed: 19-ED Expected date: Expected time: Means of arrival: [facility]/EMS Comments: Pre notification 78 male Difficulty finding words x25 mins 17189 HR 98 RR18 98% BGL 227 [facility] ED PROV NOTEon 06-08-2023 ED PROV NOTE HNO ID: [id number] Author: CHANEL DUEÑAS MD Service: ? Author Type: Physician Type: ED Provider Notes Filed: 06/09/2023 02:14 Note Text: ED Provider Note Patient Name: Joss Oropeza : 1945 SERVICE DATE: 06/08/23 History Patient presents with: Potential Stroke Symptoms: Per EMS report, patient brought in for stroke like symptoms. Patient had a hard time finding words. Symptoms resolved before EMS got to the house. [place]: Patient present with complaint of difficulty speaking. Described as trouble finding words. Onset was prior to arrival, lasted approximately 5 to 10 minutes with resolved course since that time. Patient has past medical history of cancer of unknown origin, diabetes, dyslipidemia, stroke, rheumatic fever, microcytic anemia. Follows with primary in [place], [place]. Patient denies headache, change in vision, facial droop, paresthesias, weakness, chest pain, palpitations, shortness of breath, vertigo, recent head trauma/fall, vomiting, diarrhea, blood in stool, new medications. Symptoms are exacerbated by nothing. Symptoms are relieved by nothing tried. Symptoms had resolved prior to EMS arrival. Associated symptoms include patient was seen 1 week ago at [facility] for episode of shortness of breath and [...] 3. No (more content not included)... Normal [facility] HIGH SENSITIVITY TROPONIN To n 06-08-2023 Troponin T.cardiac High sensitivity method [Mass/Vol] 18 ng/L High <[address] [facility] Comment on above: Order Comment: Speci men Type: BLOOD SPECIMENOrdering Facility: [facility] Address: [address] [place] [address] Result Comment: When assessing risk for acute [...] MACE. Performed By: #### 2 4331-1, HSTNT, 24635-7 ####[facility] LABORATORYCLIA [id number] [place] [address] [place] HISTORY PHYSICALon HISTORY PHYSICAL HNO ID: [id number] Author: FRANKLYN HER APRN.CNP Service: General Internal Medicine Author Type: Nurse [...] or substance abuse. Patient was seen at [facility] 1 week ago for shortness of breath and fatigue. Patient states he was walking outside to take the trash out, when he suddenly became short of breath and felt like he couldn't breathe. Upon his return home, he felt so weak, he sat in his recliner and his daughter called EMS. Chart Review from [facility] 06/04/2023: CXR negative. Troponins flat. [...] Cancer of unknown origin (HCC) 12/11/2022 Diabetes ([facility]) Dyslipidemia Heart murmur Rheumatic fever Stroke (cerebrum) ([facility]) 06/24/2020 PAST SURGICAL HISTORY Procedure Laterality [...] skin discoloration. (more content not included)... Normal [facility] Lipid 1996 panelon 4 Cholesterol [Mass/Vol] 115 mg/dL Normal <[address] [facility] Comment on above: Order Comment: Mathew portillo Type: BLOOD SPECIMENOrdering Facility: [facility] Address: [address] [place] [address] Result Comment: <200 mg/dL, Desirable 200-239 mg/dL, Borderline high >239 mg/dL, High Performed By: #### 2 4331-1, HSTNT, 05728-1 ####[facility] LABORATORYCLIA [id number] [place] [address] [place] Cholesterol in HDL [Mass/Vol] 39 mg/dL Low >[address] [facility] Comment on above: Order Comment: Mathew portillo Type: BLOOD SPECIMENOrdering Facility: [facility] Address: [address] [place] [address] Result Comment: 40-5 9 mg/dL, Acceptable >59 mg/dL, High: Negative risk factor for coronary heart disease <40 mg/dL, Low: Positive risk factor for coronary heart disease Performed By: #### 2 4331-1, HSTNT, 95622-0 ####[facility] LABORATORYCLIA [id number] [place] [id number] [place] Cholesterol in LDL [Mass/Vol] 19 mg/dL Normal <[address] [facility] Comment on above: Order Comment: Speci men Type: BLOOD SPECIMENOrdering Facility: [facility] Address: [address] [place] [address] Result Comment: <100 mg/dL, Optimal 100-129 mg/dL, Near optimal/above optimal 130-159 mg/dL, Borderline high 160-189 mg/dL, High >189 mg/dL, Very high Secondary prevention optimal LDL Cholesterol levels are recommended to be < 70 mg/dL Performed By: #### 2 4331-1, HSTNT, 42074-3 ####[facility] LABORATORYCLIA [id number] [place] [id number] [place] Cholesterol in LDL/Cholesterol in HDL [Mass ratio] 0.49 {ratio} Normal <2.[address] [facility] Comment on above: Order Comment: Speci men Type: BLOOD SPECIMENOrdering Facility: [facility] Address: [address] [place] [address] Result Comment: Refe rence: 1. National Cholesterol Education Program ATP III Guideline At-A-Glance Quick Desk Reference: National Heart, Lung, and Blood [employer]. National Institutes of Health. 2001: NIH Publication No. 01-3305. 2. An International Atherosclerosis Society position paper: global recommendations for the management of dyslipidemia: executive summary, Atherosclerosis. 2014: 232(2):410-413. Performed By: #### 2 4331-1, HSTNT, 91497-2 ####[facility] LABORATORYCLIA [id number] [place] [id number] [place] Cholesterol in VLDL [Mass/Vol] 57 mg/dL High <[address] [facility] Comment on above: Order Comment: Speci men Type: BLOOD SPECIMENOrdering Facility: [facility] Address: [address] [place] [address] Performed By: #### 2 4331-1, HSTNT, 11410-2 ####[facility] LABORATORYCLIA [id number] [place] [address] [place] Cholesterol non HDL [Mass/Vol] 76 mg/dL Normal <[address] [facility] Comment on above: Order Comment: Speci men Type: BLOOD SPECIMENOrdering Facility: [facility] Address: [address] [place] [address] Result Comment: <130 mg/dL, Optimal 130-159 mg/dL, Near optimal/above optimal 160-189 mg/dL, Borderline high 190-219 mg/dL, High >219 mg/dL, Very high Secondary prevention optimal non HDL Cholesterol levels are recommended to be <100 mg/dL Performed By: #### 2 4331-1, HSTNT, 99408-3 ####[facility] LABORATORYCLIA [id number] [place] [id number] [place] Cholesterol.total/C holesterol in HDL [Mass ratio] 2.95 {ratio} Normal <5.[address] [facility] Comment on above: Order Comment: Speci men Type: BLOOD SPECIMENOrdering Facility: [facility] Address: [address] [place] [address] Performed By: #### 2 4331-1, HSTNT, 60311-7 ####[facility] LABORATORYCLIA [id number] [address] [place] FASTING TIME Normal [facility] Comment on above: Order Comment: Speci men Type: BLOOD SPECIMENOrdering Facility: [facility] Address: [address] [place] [address] Result Comment: Unkn own Performed By: #### 2 4331-1, HSTNT, 99445-0 ####[facility] LABORATORYCLIA [id number] [place] [id number] [place] Triglyceride [Mass/Vol] 284 mg/dL High <[address] [facility] Comment on above: Order Comment: Speci men Type: BLOOD SPECIMENOrdering Facility: [facility] Address: [address] [place] [address] Result Comment: <150 mg/dL, Normal 150-199 mg/dL, Borderline high 200-499 mg/dL, High >499 mg/dL, Very high Performed By: #### 2 4331-1, HSTNT, 20951-9 ####[facility] LABORATORYCLIA [id number] [place] [id number] [place] PT panel Coag (PPP)on 2023 INR Coag (PPP) [Relative time] 1.1 {INR} Normal 0.9-1.[address] [facility] Comment on above: Order Comment: Mathew portillo Type: BLOOD SPECIMENOrdering Facility: [facility] Address: [address] [place] [id number] Result Comment: Monae min K Antagonist (VKA) Therapeutic Range: INR 2 to 3 (Target INR of 2.5) Note: For patients treated with VKA drugs, such as warfarin, the [place] [employer] 2012 Guideline recommends [...] Chest 2012, 141:7S-47S Heike RA, et al. JAC 2017, 70: 252-289 Performed By: #### 3 4528-0, 66535-0 ####[facility] LABORATORYCLIA [id number] [place] [address] [place] PT Coag (PPP) [Time] 11.7 s Normal 9.7-13.[address] [facility] Comment on above: Order Comment: Mathew portillo Type: BLOOD SPECIMENOrdering Facility: [facility] Address: [address] [place] [id number] Performed By: #### 3 4528-0, 95961-5 ####[facility] LABORATORYCLIA [id number] [place] [id number] [place] aPTT PPPon 06-08-2023 aPTT Coag (PPP) [Time] 21.7 s Low 23.0-32.[address] [facility] Comment on above: Order Comment: Mathew portillo Type: BLOOD SPECIMENOrdering Facility: [facility] Address: [address] [place] [address] Performed By: #### 3 4528-0, 30845-3 ####[facility] LABORATORYCLIA [id number] [place] [address] [place] CBC W Auto Differential pane l (Bld)on 05-30-2023 Basophils (Bld) [#/Vol] <0.11 k/uL [facility] Basophils/100 WBC (Bld) 0.4 % [facility] Differential cell count method Nom (Bld) Auto [facility] Eosinophils (Bld) [#/Vol] <0.46 k/uL [facility] Eosinophils/100 WBC (Bld) 0.4 % [facility] Erythrocyte distribution width (RBC) [Ratio] 16.2 % High 11.5 - 15.0 % [facility] Hematocrit (Bld) [Volume fraction] 26.0 % Low 39.0 - 51.0 % [facility] Hemoglobin (Bld) [Mass/Vol] 8.4 g/dL Low 13.0 - 17.0 g/dL [facility] Immature granulocytes (Bld) [#/Vol] <0.10 k/uL [facility] Immature granulocytes/100 WBC (Bld) 0.2 % [facility] Lymphocytes (Bld) [#/Vol] 1.90 10*3/uL 1.00 - 4.00 k/uL [facility] Lymphocytes/100 WBC (Bld) 36.3 % [facility] MCH (RBC) [Entitic mass] 39.6 pg High 26.0 - 34.0 pg [facility] MCHC (RBC) [Mass/Vol] 32.3 g/dL 30.5 - 36.0 g/dL [facility] MCV (RBC) [Entitic vol] 122.6 fL High 80.0 - 100.0 fL [facility] Monocytes (Bld) [#/Vol] 0.30 10*3/uL <0.87 k/uL [facility] Monocytes/100 WBC (Bld) 5.7 % [facility] Neutrophils (Bld) [#/Vol] 2.98 10*3/uL 1.45 - 7.50 k/uL [facility] Neutrophils/100 WBC (Bld) 57.0 % [facility] Nucleated RBC (Bld) [#/Vol] [facility] Nucleated RBC/100 WBC (Bld) [Ratio] [facility] Platelet mean volume (Bld) [Entitic vol] 11.9 fL 9.0 - 12.7 fL [facility] Platelets (Bld) [#/Vol] 134 10*3/uL Low 150 - 400 k/uL [facility] RBC (Bld) [#/Vol] 2.12 10*6/uL Low 4.20 - 6.0 0 m/uL [facility] WBC (Bld) [#/Vol] 5.23 10*3/uL 3.70 - 11. 00 k/uL [facility] TYPE + SCREENon 05-30-2023 ABO group Nom (Bld) B [facility] Blood group antibody screen Ql Negative [facility] HIstorical Ab Scr Status Negative [facility] Rh Nom (Bld) Positive [facility] Type and Screen Expiration 06/02/2023 23:59 [facility] CBC W Auto Differential pane l (Bld)on 05-10-2023 Basophils (Bld) [#/Vol] 0.03 10*3/uL <0.11 k/uL [facility] Basophils/100 WBC (Bld) 0.6 % [facility] Differential cell count method Nom (Bld) Auto [facility] Eosinophils (Bld) [#/Vol] 0.03 10*3/uL <0.46 k/uL [facility] Eosinophils/100 WBC (Bld) 0.6 % [facility] Erythrocyte distribution width (RBC) [Ratio] 17.2 % High 11.5 - 15.0 % [facility] Hematocrit (Bld) [Volume fraction] 25.3 % Low 39.0 - 51.0 % [facility] Hemoglobin (Bld) [Mass/Vol] 8.4 g/dL Low 13.0 - 17.0 g/dL [facility] Immature granulocytes (Bld) [#/Vol] <0.10 k/uL [facility] Immature granulocytes/100 WBC (Bld) 0.4 % [facility] Lymphocytes (Bld) [#/Vol] 1.74 10*3/uL 1.00 - 4.00 k/uL [facility] Lymphocytes/100 WBC (Bld) 35.7 % [facility] MCH (RBC) [Entitic mass] 40.0 pg High 26.0 - 34.0 pg [facility] MCHC (RBC) [Mass/Vol] 33.2 g/dL 30.5 - 36.0 g/dL [facility] MCV (RBC) [Entitic vol] 120.5 fL High 80.0 - 100.0 fL [facility] Monocytes (Bld) [#/Vol] 0.27 10*3/uL <0.87 k/uL [facility] Monocytes/100 WBC (Bld) 5.5 % [facility] Neutrophils (Bld) [#/Vol] 2.79 10*3/uL 1.45 - 7.50 k/uL [facility] Neutrophils/100 WBC (Bld) 57.2 % [facility] Nucleated RBC (Bld) [#/Vol] [facility] Nucleated RBC/100 WBC (Bld) [Ratio] [facility] Platelet mean volume (Bld) [Entitic vol] 10.7 fL 9.0 - 12.7 fL [facility] Platelets (Bld) [#/Vol] 107 10*3/uL Low 150 - 400 k/uL [facility] RBC (Bld) [#/Vol] 2.10 10*6/uL Low 4.20 - 6.0 0 m/uL [facility] WBC (Bld) [#/Vol] 4.88 10*3/uL 3.70 - 11. 00 k/uL [facility] TYPE + SCREENon 05-10-2023 ABO group Nom (Bld) B [facility] Blood group antibody screen Ql Negative [facility] HIstorical Ab Scr Status Negative [facility] Rh Nom (Bld) Positive [facility] Type and Screen Expiration 05/13/2023 23:59 [facility] CBC W Auto Differential pane l (Bld)on 03-29-2023 Basophils (Bld) [#/Vol] <0.11 k/uL [facility] Basophils/100 WBC (Bld) 0.4 % [facility] Differential cell count method Nom (Bld) Auto [facility] Eosinophils (Bld) [#/Vol] <0.46 k/uL [facility] Eosinophils/100 WBC (Bld) 0.4 % [facility] Erythrocyte distribution width (RBC) [Ratio] 19.7 % High 11.5 - 15.0 % [facility] Hematocrit (Bld) [Volume fraction] 25.4 % Low 39.0 - 51.0 % [facility] Hemoglobin (Bld) [Mass/Vol] 8.5 g/dL Low 13.0 - 17.0 g/dL [facility] Immature granulocytes (Bld) [#/Vol] <0.10 k/uL [facility] Immature granulocytes/100 WBC (Bld) 0.2 % [facility] Lymphocytes (Bld) [#/Vol] 2.16 10*3/uL 1.00 - 4.00 k/uL [facility] Lymphocytes/100 WBC (Bld) 38.0 % [facility] MCH (RBC) [Entitic mass] 39.0 pg High 26.0 - 34.0 pg [facility] MCHC (RBC) [Mass/Vol] 33.5 g/dL 30.5 - 36.0 g/dL [facility] MCV (RBC) [Entitic vol] 116.5 fL High 80.0 - 100.0 fL [facility] Monocytes (Bld) [#/Vol] 0.25 10*3/uL <0.87 k/uL [facility] Monocytes/100 WBC (Bld) 4.4 % [facility] Neutrophils (Bld) [#/Vol] 3.22 10*3/uL 1.45 - 7.50 k/uL [facility] Neutrophils/100 WBC (Bld) 56.6 % [facility] Nucleated RBC (Bld) [#/Vol] [facility] Nucleated RBC/100 WBC (Bld) [Ratio] [facility] Platelet mean volume (Bld) [Entitic vol] 11.4 fL 9.0 - 12.7 fL [facility] Platelets (Bld) [#/Vol] 126 10*3/uL Low 150 - 400 k/uL [facility] RBC (Bld) [#/Vol] 2.18 10*6/uL Low 4.20 - 6.0 0 m/uL [facility] WBC (Bld) [#/Vol] 5.68 10*3/uL 3.70 - 11. 00 k/uL [facility] RED BLOOD CELLS, ADULTon ABO and Rh group Nom (Bld) 7300 [facility] ABO and Rh group Nom (Bld) Blood group B Rh(D) positive [facility] [facility] Expiration Date [id number] [facility] Issue Date/Time [id number] [facility] Product Code [id number] [facility] Product Expiration Date 03/07/2023 23:59 [facility] Product Identification Red Blood Cells [facility] Status Information Issued Final [facility] Unit Number [id number] [facility] XM RESULT Compatible [facility] Whole blood hemoglobin A1c/t otal hemoglobin ratio (mass fraction)Ordered By: Dr. Londono on 07-26-2022 HbA1c (Bld) [Mass fraction] 7.7 % 3.8-5.6 [facility] Comment on above: Normal < 5.7 % Predi abetic 5.7 - 6.4 % Diabetic >or= 6.5 % Please note range changes. ERYTHROPOIETIN/EPOon 023 Erythropoietin (EPO) Qn 879.9 [IU]/L High [facility] Erythropoietin (EPO) Qnon Interpretation and review of laboratory results Abnormal [facility] Test analyzed by the Kajal DxI method. [facility] CBC W Auto Differential pane l (Bld)on 07-03-2022 Basophils (Bld) [#/Vol] NINF [facility] Basophils/100 WBC (Bld) 0.0 % [facility] Differential cell count method Nom (Bld) Auto [facility] Eosinophils (Bld) [#/Vol] [facility] Eosinophils/100 WBC (Bld) 0.2 % [facility] Erythrocyte distribution width (RBC) [Ratio] 20.1 % High 11.5 - 15.0 % [facility] Hematocrit (Bld) [Volume fraction] 23.3 % Low 39.0 - 51.0 % [facility] Hemoglobin (Bld) [Mass/Vol] 7.6 g/dL Low 13.0 - 17.0 g/dL [facility] Immature granulocytes (Bld) [#/Vol] 0.05 10*3/uL NINF [facility] Immature granulocytes/100 WBC (Bld) 0.9 % [facility] Interpretation and review of laboratory results Abnormal [facility] Lymphocytes (Bld) [#/Vol] 1.44 10*3/uL [facility] Lymphocytes/100 WBC (Bld) 26.6 % [facility] MCH (RBC) [Entitic mass] 37.3 pg High 26.0 - 34.0 pg [facility] MCHC (RBC) [Mass/Vol] 32.6 g/dL 30.5 - 36.0 g/dL [facility] MCV (RBC) [Entitic vol] 114.2 fL High 80.0 - 100.0 fL [facility] Monocytes (Bld) [#/Vol] 0.21 10*3/uL NINF [facility] Monocytes/100 WBC (Bld) 3.9 % [facility] Neutrophils (Bld) [#/Vol] 3.70 10*3/uL [facility] Neutrophils/100 WBC (Bld) 68.4 % [facility] Nucleated RBC (Bld) [#/Vol] NINF [facility] Nucleated RBC/100 WBC (Bld) [Ratio] 0.0 % /100 WBC [facility] Platelet mean volume (Bld) [Entitic vol] 11.2 fL 9.0 - 12.7 fL [facility] Platelets (Bld) [#/Vol] 116 10*3/uL Low [facility] RBC (Bld) [#/Vol] 2.04 10*6/uL Low 4.20 - 6.0 0 m/uL [facility] WBC (Bld) [#/Vol] 5.41 10*3/uL [facility] Comprehensive metabolic 2000 panelon 07-03-2022 Albumin [Mass/Vol] 4.1 g/dL 3.9 - 4.9 g/dL [facility] ALP [Catalytic activity/Vol] 54 U/L 38 - 113 U/L [facility] ALT With P-5'-P [Catalytic activity/Vol] 13 U/L 10 - 54 U/L [facility] Anion gap [Moles/Vol] 13 mmol/L 9 - 18 mmol/L [facility] AST With P-5'-P [Catalytic activity/Vol] 18 U/L 14 - 40 U/L [facility] Bilirubin [Mass/Vol] 0.2 mg/dL 0.2 - 1.3 mg/dL [facility] Calcium [Mass/Vol] 9.5 mg/dL 8.5 - 10. 2 mg/dL [facility] Chloride [Moles/Vol] 102 mmol/L 97 - 105 mmol/L [facility] CO2 [Moles/Vol] 22 mmol/L 22 - 30 mmol/L [facility] Creatinine [Mass/Vol] 0.87 mg/dL 0.73 - 1.22 mg/dL [facility] GFR/1.73 sq M.predicted among non-blacks MDRD (S/P/Bld) [Vol rate/Area] 88 mL/min/{1.73_m2} - PINF [facility] Comment on above: Estimated Glomerular Filtration Rate [...] 232 mg/dL High 74 - 99 mg/dL [facility] Comment on above: The [place] Diab[employer] Association (ADA) provides guidance for [...] Standards of Medical Care in Diabetes 2016, [place] [employer]. Diabetes Care. 2016.39(Suppl 1). Interpretation and review of laboratory results Abnormal [facility] Potassium [Moles/Vol] 4.5 mmol/L 3.7 - 5.1 mmol/L [facility] Protein [Mass/Vol] 6.8 g/dL 6.3 - 8.0 g/dL [facility] Sodium [Moles/Vol] 137 mmol/L 136 - 144 mmol/L [facility] Urea nitrogen [Mass/Vol] 15 mg/dL 9 - 24 mg/dL [facility] RETIC COUNTon 07-03-2022 Reticulocytes (Bld) [#/Vol] 0.037 10*3/uL [facility] Reticulocytes (Bld) [#/Vol]o n 07-03-2022 Interpretation and review of laboratory results Normal [facility] Reticulocytes/100 RBC (Bld) 1.8 % 0.4 - 2.0 % [facility] CBC W Auto Differential pane l (Bld)on 06-01-2022 Basophils (Bld) [#/Vol] <0.11 k/uL [facility] Basophils/100 WBC (Bld) 0.2 % [facility] Eosinophils (Bld) [#/Vol] <0.46 k/uL [facility] Eosinophils/100 WBC (Bld) 0.5 % [facility] Immature granulocytes (Bld) [#/Vol] <0.10 k/uL [facility] Immature granulocytes/100 WBC (Bld) 0.5 % [facility] Lymphocytes (Bld) [#/Vol] 1.08 10*3/uL 1.00 - 4.00 k/uL [facility] Lymphocytes/100 WBC (Bld) 24.9 % [facility] Monocytes (Bld) [#/Vol] 0.25 10*3/uL <0.87 k/uL [facility] Monocytes/100 WBC (Bld) 5.8 % [facility] Neutrophils (Bld) [#/Vol] 2.95 10*3/uL 1.45 - 7.50 k/uL [facility] Neutrophils/100 WBC (Bld) 68.1 % [facility] CBC panel Auto (Bld)on 06-01 Erythrocyte distribution width (RBC) [Ratio] 21.1 % High 11.5 - 15.0 % [facility] Hematocrit (Bld) [Volume fraction] 24.8 % Low 39.0 - 51.0 % [facility] Hemoglobin (Bld) [Mass/Vol] 8.1 g/dL Low 13.0 - 17.0 g/dL [facility] MCH (RBC) [Entitic mass] 35.7 pg High 26.0 - 34.0 pg [facility] MCHC (RBC) [Mass/Vol] 32.7 g/dL 30.5 - 36.0 g/dL [facility] MCV (RBC) [Entitic vol] 109.3 fL High 80.0 - 100.0 fL [facility] Nucleated RBC (Bld) [#/Vol] <0.01 k/uL [facility] Platelet mean volume (Bld) [Entitic vol] 10.9 fL 9.0 - 12.7 fL [facility] Platelets (Bld) [#/Vol] 134 10*3/uL Low 150 - 400 k/uL [facility] RBC (Bld) [#/Vol] 2.27 10*6/uL Low 4.20 - 6.0 0 m/uL [facility] WBC (Bld) [#/Vol] 4.37 10*3/uL 3.70 - 11. 00 k/uL [facility] FLOW CYTOMETRY BONE MARROW H OLD (BMHOLD)on 06-01-2022 Flow Cytometry Order Status See Results in chart under F case ID [facility] IMAGING GUIDED BONE MARROW B IOPSY AND ASPIRATION (CIARAN)(MI NO AV,[facility])on 06-01-2022 [facility] PT panel Coag (PPP)on 2022 INR Coag (PPP) [Relative time] 1.0 {INR} 0.9 - 1.3 [facility] PT Coag (PPP) [Time] 11.2 s 9.7 - 13.0 sec [facility] Laboratory - Hematology and Cell countson 04-13-2022 HbA1c (Bld) [Mass fraction] 8.1 % [facility] US ABD RT UPPER QUADRANTon 0 11-24-2021 [facility] Glucose Glucometer (dC) [M ass/Vol]on 09-07-2021 Glucose [Mass/Vol] 186 mg/dL 74-106 [facility] Work Phone: Comment on above: MANAGEMENT OF [...] couple of years prior by Dr. Shira Moreno, [place]. 8. Rotator cuff surgery. 9. Cholecystectomy.INTERVAL HISTORY: [...] moist. No nasal discharge. NECK: Supple, no cervical/SClymphadenopathy . CHEST: Bilateral symmetrical, bilateral AE. CVS: S1, S2, RR.ABDOMEN: Soft, NT, no hepatosplenomegaly/masses, bowel sounds positive. 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 EXTREMITIES: No C/C/E. SKIN: No petechiae.LAB WORK: In January 2017, showed WBC 7.0, hemoglobin 13.0, MCV 103, [id number]. Ferritin was 687, serum protein immunoelectrophoresis normal, ironsaturation 37, ferritin was 687, LDH 112, B12 was 579.ASSESSMENT/PLAN: Mr. Oropeza, who is a 72-year-old gentleman, who haddiabetes and chronic back pain had a kyphoplasty and later developosteomyelitis requiring IV antibiotic, and after that he lost rvrfcqrisjscf29-nrpcq weight, although his weight loss has stabilized, and the patient is upto date on his cancer screening. I had a long discussion with the patient andexplained to him that the most common malignancies required screening whichincludes colon cancer, prostate cancer, lung cancer provided somebody has i70-uhkv-[id number] smoking history, but there is no other definite screeningrecommended for other malignancies. The patient already is up to date with thePSA, colonoscopy, has never smoked, and there is no indication of lung cancerscreening, also sees a manager product support for periodic skin exam for skinmalignancies. In the meantime, his CBC, LDH, serum protein electrophoresis areall within normal limits. At this time, I would recommend no further workup. [facility] offered a CT of the chest, abdomen, [...] was discussed. Thepatient was pleased.Carlos De Luna MDHematology-OncologySt. Mary's [facility]/[place] OfficePhone Fax [facility] OfficePhone Fax Allergies and Intolerances: Allergies: cefepime: [...] lung cancer. 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 Never smoked. Alcohol, once a year.No illicit drug use. (1)Vitals and Measurements:Vitals: Temp: 36.6 HR: 75 RR: 18 BP: 127/75 SPO2%: 96Measurements: HT(cm): 176.9 WT(kg): 96.9 BSA: 2.18 BMI: 30.9Second Set of Vitals/Vitals Comment: Weight= with shoes on(2)Lab Results:? ResultsCBC date/time WBC HGB HCT PLT [id number] 11:52 7.0 13.0(L) 39.8(L) 136(L) 4.27LDH date/time [id number] 11:51 N/APatient Instructions:Instructions: no0 f/uNote Recipients: German Robertson MD - [id number] Yes when ready to send to Provider(s) [...] Note - Intake 06/11/2017 03:19 PM [facility] Note - Intakeon 06-11 Clinic Note - Intake Patient Visit Information:? Visit Type Follow Up Visit? Patient States [...] room airPain Screening:? Patient States Pain no (0)Padding Gluer for intimate exam offered to patient:? Patient [...] you feel you need assistance? noAre there cultural/spiritual/religio us practices/values/needs important for usto know during your visit today noElectronic Signatures:Jessie Nunez I) (Signed 11-Jun-2017 15:27) Authored: Patient Visit Information, Vital Signs, Padding Gluer, Allergies,Outpatient Medication Profile, Adult Admission Risk ScreenLast Updated: 11-Jun-2017 15:27 by Jessie Nunez I) [facility] NAEL PATH REVIEWon 01-29-2017 PATH REVIEW-NAEL SORIN [facility] Comment on above: Result Comment: By h er/his signature above, the Pathologist listed as making the final interpretation certifies that she/he has personally reviewed this case. Performed By: #### P R34 ####[facility] [place] [address] PROTEIN ELECTROPHORESIS + IM MUNOFIXATION, SERUMon 01-29-2017 IMMUNOFIXATION INTERP NORMAL [facility] Comment on above: Result Comment: NO D EFINITE MONOCLONAL PROTEINS DETECTED BY IMMUNOFIXATION. Performed By: #### I FE2 ####[facility] [place] [address] INTERPRETATION NORMAL [facility] Comment on above: Performed By: #### I FE2 ####[facility] [place] [address] MONOCLONAL PROTEIN NONE DETECTED [facility] Comment on above: Performed By: #### I FE2 ####[facility] [place] [address] SPE PATH REVIEWon 01-29-2017 PATH REVIEW-SPE C.JENA [facility] Comment on above: Result Comment: By h er/his signature above, the Pathologist listed as making the final interpretation certifies that she/he has personally reviewed this case. Performed By: #### P R12 ####[facility] [place] [address] PROTEIN ELECTROPHORESIS + IM MUNOFIXATION, SERUMon 01-28-2017 GAMMA GLOBULIN 1.1 g/dL Normal 0.5 - 1.4 [facility] Comment on above: Performed By: #### I FE2 ####[facility] [place] [address] Albumin 4.1 g/dL Normal 3.4 - 5.0 [facility] Comment on above: Performed By: #### I FE2 ####[facility] [place] [address] ALPHA 1 GLOBULIN 0.3 g/dL Normal 0.2 - 0.6 [facility] Comment on above: Performed By: #### I FE2 ####[facility] [place] [address] ALPHA 2 GLOBULIN 0.8 g/dL Normal 0.4 - 1.1 [facility] Comment on above: Performed By: #### I FE2 ####[facility] [place] [address] BETA GLOBULIN 0.8 g/dL Normal 0.5 - 1.2 [facility] Comment on above: Performed By: #### I FE2 ####[facility] [place] [address] CBC AND DIFFERENTIALon 01-25 % NEUTROPHIL 61.5 % Normal 40.0 - 80.0 [facility] Comment on above: Performed By: #### C BCDF ####[address] [address] Basophils/100 WBC Auto (Bld) 0.01 x10E9/L Normal 0.00 - 0.10 [facility] Comment on above: Performed By: #### C BCDF ####[address] [address] Basophils/100 WBC Auto (Bld) 0.1 % Normal 0.0 - 2.0 [facility] Comment on above: Performed By: #### C BCDF ####[facility] [address] [address] Eosinophils 0.05 10*3/uL Normal 0.00 - 0.40 [facility] Comment on above: Performed By: #### C BCDF ####[facility] [address] [address] Eosinophils/100 leukocytes 0.7 % Normal 0.0 - 6.0 [facility] Comment on above: Performed By: #### C BCDF ####[facility] [address] [address] Erythrocyte distribution width Auto Ratio (RBC) 15.9 % High 11.5 - 14.5 [facility] Comment on above: Performed By: #### C BCDF ####[facility] [address] [address] Erythrocytes (RBC) 3.86 x10E12/L Low 4.50 - 5.90 [facility] Comment on above: Performed By: #### C BCDF ####[facility] [address] [address] Hematocrit (HCT) 39.8 % Low 41.0 - 52.0 [facility] Comment on above: Performed By: #### C BCDF ####[facility] [address] [address] Hemoglobin mass conc (Bld) 13.0 g/dL Low 13.5 - 17.5 [facility] Comment on above: Performed By: #### C BCDF ####[facility] [address] [address] Lymphocytes 2.00 10*3/uL Normal 0.80 - 3.00 [facility] Comment on above: Performed By: #### C BCDF ####[facility] [address] [address] Lymphocytes/100 leukocytes 28.8 % Normal 13.0 - 44.0 [facility] Comment on above: Performed By: #### C BCDF ####[facility] [address] [address] MCHC mass conc (RBC) 32.7 g/dL Normal 32.0 - 36.0 [facility] Comment on above: Performed By: #### C BCDF ####[facility] [address] [address] MCV 103 fL High 80 - 100 [facility] Comment on above: Performed By: #### C BCDF ####[facility] [address] [address] Monocytes 0.62 10*3/uL Normal 0.05 - 0.80 [facility] Comment on above: Performed By: #### C BCDF ####[facility] [address] [address] Monocytes/100 leukocytes 8.9 % Normal 2.0 - 10.0 [facility] Comment on above: Performed By: #### C BCDF ####[facility] [id number] [place] [address] Neutrophils 4.27 10*3/uL Normal 1.60 - 5.50 [facility] Comment on above: Result Comment: Perc ent differential counts (%) should be interpreted in the context of the absolute cell counts (cells/L). Performed By: #### C BCDF ####[facility] [id number] [place] [address] Platelets 136 10*3/uL Low 150 - 450 [facility] Comment on above: Performed By: #### C BCDF ####[id number] [place] [address] WBC (Leukocytes) 7.0 10*3/uL Normal 4.4 - 11.3 [facility] Comment on above: Performed By: #### C BCDF ####[facility] [address] [address] FERRITINon 01-25-2017 FERRITIN 687 ug/L High 20 - 300 [facility] Comment on above: Performed By: #### F ERRI ####[facility] [place] [address] IRON + TIBCon 01-25-2017 % SATURATION 37 % Normal 25 - 45 [facility] Comment on above: Performed By: #### I LAUREN ####[facility] [place] [address] Iron 127 ug/dL Normal 35 - 150 [facility] Comment on above: Performed By: #### I MICAT ####[facility] [place] [address] TIBC 347 ug/dL Normal 240 - 445 [facility] Comment on above: Performed By: #### I MICAT ####[facility] [place] [address] LDHon 01-25-2017 LDH 122 U/L Normal 84 - 246 [facility] Comment on above: Performed By: #### L DH ####[facility] [place] [address] PROTEIN ELECTROPHORESIS + IM MUNOFIXATION, SERUMon 01-25-2017 Protein 7.1 g/dL Normal 6.4 - 8.2 [facility] Comment on above: Performed By: #### I FE2 ####[facility] [place] [address] VITAMIN B12on 01-25-2017 Cobalamins (Vitamin B12) 579 pg/mL Normal 211 - 911 [facility] Comment on above: Performed By: #### V TB12 ####[facility] [place] [address] DX LUMBOSACRAL SPINE MIN 4 V IEWSon 10-31-2016 DX LUMBOSACRAL SPINE MIN 4 VIEWS Performed at [facility] APPROVED BY: Karri Matta MD EXAM TITLE: [...] abnormal subluxation with flexion and extension. Normal [facility] MRI LUMBAR SPINE W/O CONTRAS Ton 10-31-2016 MRI LUMBAR SPINE W/O CONTRAST Performed at [facility] APPROVED BY: JUNIOR RAE MD MRI LUMBAR [...] recesses with mild bilateral foraminal narrowing. Normal [facility] US RETROPERITONEAL COMPLETEo n 10-22-2016 US RETROPERITONEAL COMPLETE Performed at [facility] APPROVED BY: Tor Quiles MD EXAM TITLE: ULTRASOUND RETROPERITONEUM DATE: 10/22/2016 17:05 COMPARISON: No prior available. CLINICAL INDICATION/HISTORY: N28.1. Renal cyst. TECHNIQUE: Grayscale and color Doppler images were obtained of the retroperitoneum. Ultrasound images were obtained by the cardiovascular radiologic technologist and stored in a permanent archive. [...] retroperitoneum is otherwise within normal limits. Normal [facility] DISCHARGE SUMMARYon 09-25-19 17 DISCHARGE SUMMARY [facility] Discharge SummaryJOSS OROPEZAMRN: [id number] ACCTNUM: [id number] OF : 1945 SEX/AGE: M/71PATIENT TYPE: [facility]: LOCATION: [id number] DATE: 08/31/2016 DISCHARGE DATE: 09/07/2016DISCHARGE DIAGNOSES:1. Lumbar diskitis.2. Lower back pain.3. Diabetes type 2.4. Constipation.CONSULTANTS:[address] Hogue with Infectious Disease.2. Dr. Kohli with Neurosurgery.IMAGING AND PROCEDURES: L3-L4 vertebral body and disk biopsy and a PICC line placement.BRIEF HISTORY OF PRESENT ILLNESS: Mr. Oropeza was admitted to [facility] withlower back pain. MRI done [...] stable condition. He was discharged home with home healthfor IV antibiotics infusion. He was in a stable condition.DISCHARGE MEDICATIONS: Please refer to MRF. Patient will continue taking IV antibiotics along [facility]follow[facility].DISCHARGE INSTRUCTIONS: Follow up with Dr. Hogue from [facility] and follow up with home health care. Followup with Dr. Kohli with Neurosurgery. Page 1 of 1 [facility] Discharge Summary PATIENT NAME: JOSS OROPEZA MR#: [id number] ACCTNUM: [id number] DISCHARGE TIME: Time spent on discharge more than 30 minutes.Signed: CAN OSBORN MD09/24/2016 18:04 EDT Can Osborn MD QH:modl /[id number] cc: Edwin Hogue MD Page 2 of 1 Normal [facility] DISCHARGE SUMMARY PDF Normal [facility] DISCHARGE SUMMARY [facility] Discharge SummaryJOSS OROPEZAMRN: [id number] ACCTNUM: [id number] OF : 1945 SEX/AGE: M/71PATIENT TYPE: [facility]: LOCATION: [id number] DATE: 08/31/2016 DISCHARGE DATE: 09/10/2016ADDENDUM: Patient has [...] discharged in a stable condition on 09/10/2016 [facility] for IV antibiotics. For more details, please refer to previously dictated discharge summary on09/07/2016.Signed: CAN OSBORN MD09/24/2016 18:04 EDTCan Osborn MDQH:modlD: 09/10/2016 11:04:24T: 09/12/2016 04:21:25Job #: [id number] Page 1 of 1 Normal [facility] DISCHARGE SUMMARY PDF Normal [facility] Glucose Meteron 09-10-2016 Glucose mass conc 104 mg/dL High 70-99 [facility] Comment on above: Result Comment: DERIC Narvaez OTIFIED Performed By: #### G LMET ####[facility] [place], [place] [address] Glucose mass conc 131 mg/dL High 70-99 [facility] Comment on above: Performed By: #### G LMET ####[address] [address] [place], [place] [address] Glucose Meteron 09-09-2016 Glucose mass conc 142 mg/dL High 70- [facility] Comment on above: Result Comment: RN N OTIFIED Performed By: #### G LMET ####[address] [address] Glucose mass conc 103 mg/dL High 70- [facility] Comment on above: Result Comment: RN N OTIFIED Performed By: #### G LMET ####[address] [address] Glucose mass conc 171 mg/dL High 70- [facility] Comment on above: Result Comment: DERIC Narvaez OTIFIED Performed By: #### G LMET ####[address] [address] Glucose mass conc 118 mg/dL High 70- [facility] Comment on above: Performed By: #### G LMET ####[address] [address] Glucose Meteron 09-08-2016 Glucose mass conc 123 mg/dL High 70- [facility] Comment on above: Result Comment: RN Oziel OTIFIED Performed By: #### G LMET ####[address] [address] Glucose mass conc 138 mg/dL High 70- [facility] Comment on above: Result Comment: DERIC Narvaez OTIFIED Performed By: #### G LMET ####[address] [address] Glucose mass conc 153 mg/dL High 70- [facility] Comment on above: Result Comment: DERIC Narvaez OTIFIED Performed By: #### G LMET ####[address] [address] Glucose mass conc 126 mg/dL High 70- [facility] Comment on above: Result Comment: DERIC Narvaez OTIFIED Performed By: #### E SR ####[address] [address] Glucose Meteron 09-07-2016 Glucose mass conc 119 mg/dL High 70- [facility] Comment on above: Result Comment: RN N OTIFIED Performed By: #### E SR ####[facility] [place], [place] [address] Glucose mass conc 132 mg/dL High 70-99 [facility] Comment on above: Result Comment: RN N OTIFIED Performed By: #### E SR ####[address] [address] Glucose mass conc 130 mg/dL High 70-99 [facility] Comment on above: Performed By: #### E SR ####[address] [address] Glucose mass conc 123 mg/dL High 70-99 [facility] Comment on above: Result Comment: RN N OTIFIED Performed By: #### E SR ####[address] [address] Glucose Meteron 09-06-2016 Glucose mass conc 137 mg/dL High 70- [facility] Comment on above: Performed By: #### E SR ####[address] [address] Glucose mass conc 169 mg/dL High 70-99 [facility] Comment on above: Result Comment: RN N OTIFIED Performed By: #### E SR ####[address] [address] Glucose mass conc 122 mg/dL High 70-99 [facility] Comment on above: Result Comment: DERIC N OTIFIED Performed By: #### E SR ####[address] [address] Glucose mass conc 167 mg/dL High 70-99 [facility] Comment on above: Performed By: #### E SR ####[address] [address] PICC LINE INSERTION [id number] 09-06-2016 PICC LINE INSERTION [id number] Performed at [facility] APPROVED BY: MARTIR WITT MD EXAM TITLE: PICC LINE PLACEMENT DATE: 09/06/2016 10:30 COMPARISON: None. CLINICAL INDICATION/HISTORY: Patient is a 71-year-old male with need for long-term antibiotics. TECHNIQUE: All elements of maximal barrier technique including mask, sterile gown, sterile gloves, large sterile drape, appropriate hand hygiene, and appropriate prep agent were utilized. A PICC line was then placed by the [facility] nursing PICC team without added supervision by the interventionalist in special procedures. The PICC catheter entry site is the right brachial vein. The tip of the PICC catheter is in the distal SVC. The PICC line has been secured to the skin, bandaged, and flushed with appropriate saline and is ready for use. IMPRESSION: Technically successful placement of PICC line by the [facility] nursing PICC team. Normal [facility] Vancomycin,Troughon 09-07-19 17 Vancomycin,Trough 9.4 mg/L Low 10.0-20.0 [facility] Comment on above: Performed By: #### C RP3 ####[address] [address] Glucose Meteron 09-05-2016 Glucose mass conc 147 mg/dL High 70-99 [facility] Comment on above: Result Comment: RN N OTIFIED Performed By: #### C RP3 ####[address] [address] Glucose mass conc 114 mg/dL High 70-99 [facility] Comment on above: Result Comment: DERIC N OTIFIED Performed By: #### C RP3 ####[address] [address] Glucose mass conc 202 mg/dL High 70-99 [facility] Comment on above: Result Comment: RN N OTIFIED Performed By: #### C RP3 ####[address] [address] Glucose mass conc 149 mg/dL High 70-99 [facility] Comment on above: Performed By: #### C RP3 ####[address] [address] Glucose Meteron 09-04-2016 Glucose mass conc 145 mg/dL High 70-99 [facility] Comment on above: Result Comment: RN N OTIFIED Performed By: #### C RP3 ####[address] [address] Glucose mass conc 131 mg/dL High 70-99 [facility] Comment on above: Result Comment: RN N OTIFIED Performed By: #### C RP3 ####[facility] [place], [place] [address] Glucose mass conc 135 mg/dL High 70-99 [facility] Comment on above: Result Comment: RN N OTIFIED Performed By: #### C RP3 ####[facility] [place], [place] [address] Glucose mass conc 136 mg/dL High 70-99 [facility] Comment on above: Result Comment: RN N OTIFIED Performed By: #### G FR ####[facility] [place] [address] Activated PTTon 09-03-2016 aPTT 24.3 s Normal 22.0-34.0 [facility] Comment on above: Performed By: #### G FR ####[place] [id number] CT NEEDLE BIOPSY BONE DEEPon 09-03-2016 CT NEEDLE BIOPSY BONE DEEP Performed at [facility] APPROVED BY: Merary Gonzalez MD Procedure: CT guided percutaneous intervertebral disc [...] biopsy of the L3/L4 disc space. Normal [facility] CT PERC ASPIRATION DISC 6226 7on 09-03-2016 CT PERC ASPIRATION DISC 37[address] Performed at [facility] APPROVED BY: Merary Gonzalez MD Procedure: CT guided percutaneous intervertebral disc [...] biopsy of the L3/L4 disc space. Normal [facility] Cytology, Medicalon 09-04-19 17 Cytology, Medical Test performed at [address] [address]HZQB: JOSS OROPEZA [id number] REQUESTING: TRACY MARTINEZ M.D.DIAGNOSISL3-L4 LUMBAR DISC ASPIRATION - NEGATIVE FOR MALIGNANT CELLS.NARRATIVECHONDROCYTE S, FEW PMNS AND LYMPHOCYTES. SPECIMEN: A) FOT, FNA, OTHER SITE Lumbar disc aspiration, L3-L4 Description: Materials Prepared & Examined: Volume: ......... 6.5 # of Cell Blocks: .......... 1 Color: ............ Red # of Monolayers: .......... 1 Other: ............. White # of Slides: ................. particles 3Electronically Signed: 09/05/2016Screened by: VICENTA KNIGHT CT(ASCP)Signed Out by: BRUNILDA JOHNSON M.D.,PATHOLOGISTPrinted on: September 05, 2016 Page 1 of 1 [facility] [place] Comment on above: Performed By: #### C RP3 ####[place] [address] Glucose Meteron 09-03-2016 Glucose mass conc 130 mg/dL High 70-99 [facility] Comment on above: Result Comment: DERIC Narvaez OTIFIED Performed By: #### G FR ####[address] [address] Glucose mass conc 116 mg/dL High 70-99 [facility] Comment on above: Performed By: #### G FR ####[address] [address] Glucose mass conc 133 mg/dL High 70-99 [facility] Comment on above: Result Comment: DERIC Narvaez OTIFIED Performed By: #### G FR ####[address] [address] Glucose mass conc 141 mg/dL High 70-99 [facility] Comment on above: Result Comment: DERIC Narvaez OTIFIED Performed By: #### G FR ####[address] [address] Protimeon 09-03-2016 INR Coag RelTime (PPP) 1.01 {INR} Normal [facility] Comment on above: Result Comment: Nathaniel dard Therapy 2.0-3.0High Dose 2.5-3.5 Performed By: #### G FR ####[address] [address] Prothrombin time (PT) Coag time (PPP) 10.9 s Normal 9.3-11.9 [facility] Comment on above: Performed By: #### G FR ####[address] [address] Surgical Tissue Examon 09-03 Surgical Tissue Exam Test performed at [place] [address]NAME: JOSS OROPEZA [id number] REQUESTING: TRACY MARTINEZ M.D.FINAL DIAGNOSIS:CORE BIOPSY OF BONE (LUMBAR L3-L4) - FIBROCARTILAGE WITH DEGENERATIVECHANGES. ASSOCIATED BENIGN BONE AND BONE MARROW. OSTEOMYELITIS IS NOTIDENTIFIED.OPERATIVE PROCEDURE:CT needle biopsy bone / aspiration 17:05CLINICAL INFORMATION:Vertebral osteomyelitis L3-L4 biopsy needle aspirationGROSS DESCRIPTION:CT guided disc biopsy lumbar spine L3-L4The specimen is labeled and designated Joss Oropeza, [id number]. Received in formalin, a 1.5 cm length x 0.3 cm in diameterfragmented core entirely submitted, in total, in a single cassetteafter light decalcification. ELH:otoniel DUKE M.D.(Electronic signature on file)Signed out: 09/05/2016 14:23PRINTED: 09/05/2016 Page 1 of 1 Normal [facility] Comment on above: Performed By: #### C RP3 ####[address] [address] Glucose Meteron 09-02-2016 Glucose mass conc 152 mg/dL High 70-99 [facility] Comment on above: Result Comment: RN N OTIFIED Performed By: #### P 8 ####[address] [address] Glucose mass conc 142 mg/dL High 70-99 [facility] Comment on above: Result Comment: RN N OTIFIED Performed By: #### P 8 ####[address] [address] Glucose mass conc 199 mg/dL High 70-99 [facility] Comment on above: Result Comment: RN N OTIFIED Performed By: #### P 8 ####[facility] [place], [place] [address] Glucose mass conc 174 mg/dL High 70-99 [facility] Comment on above: Result Comment: RN N OTIFIED Performed By: #### P 8 ####[facility] [place], [place] [address] Glucose mass conc 173 mg/dL High 70-99 [facility] Comment on above: Result Comment: RN N OTIFIED Performed By: #### P 8 ####[facility] [place], [place] [address] MRSA Screenon 09-02-2016 MRSA Screen Test performed at [facility] No MRSA detected. Normal [facility] Comment on above: Performed By: #### G FR ####[address] [address] Basic Panelon 09-01-2016 Creatinine 0.74 mg/dL Normal 0.67-1.17 [facility] Comment on above: Performed By: #### P 8 ####[address] [address] Anion gap 14 mmol/L Normal 8-16 [facility] Comment on above: Performed By: #### P 8 ####[address] [address] CO2 23 mmol/L Normal 21-32 [facility] Comment on above: Performed By: #### P 8 ####[facility] [place], [place] [address] Glucose mass conc 138 mg/dL High 70-99 [facility] Comment on above: Performed By: #### P 8 ####[address] [address] Urea nitrogen 18 mg/dL Normal 7-18 [facility] Comment on above: Performed By: #### P 8 ####[address] [address] Calcium 9.2 mg/dL Normal 8.5-10.1 [facility] Comment on above: Performed By: #### P 8 ####[facility]1 [place], [place] [address] Chloride 106 mmol/L Normal 98-107 [facility] Comment on above: Performed By: #### P 8 ####[facility]1 [place], [place] [address] Potassium molar conc 4.1 mmol/L Normal 3.5-5.1 [facility] Comment on above: Performed By: #### P 8 ####[address] [address] Sodium 139 mmol/L Normal 136-145 [facility] Comment on above: Performed By: #### P 8 ####[address] [address] Glucose Meteron 09-01-2016 Glucose mass conc 130 mg/dL High 70-99 [facility] Comment on above: Result Comment: RN N OTIFIED Performed By: #### P 8 ####[address] [address] Glucose mass conc 124 mg/dL High 70-99 [facility] Comment on above: Result Comment: DERIC Narvaez OTIFIED Performed By: #### P 8 ####[address] [address] Glucose mass conc 175 mg/dL High 70-99 [facility] Comment on above: Performed By: #### G LMET ####[address] [address] Hemogram/Diffon 09-01-2016 Basophils Auto #/vol (Bld) 0.01 thou/cmm Normal 0.01-0.08 [facility] Comment on above: Performed By: #### C BCD1 ####[address] [address] Basophils/100 WBC Auto (Bld) 0.2 % Normal [facility] Comment on above: Performed By: #### C BCD1 ####[address] [address] Eosinophils 0.07 thou/cmm Normal 0.04-0.54 [facility] Comment on above: Performed By: #### C BCD1 ####[address] [address] Eosinophils/100 leukocytes 1.1 % Normal [facility] Comment on above: Performed By: #### C BCD1 ####[place] [address] Erythrocyte distribution width Auto Ratio (RBC) 15.7 % High 11.6-14.4 [facility] Comment on above: Performed By: #### C BCD1 ####[place] [address] Erythrocytes (RBC) 3.56 mil/cmm Low 4.63-6.08 [facility] Comment on above: Performed By: #### C BCD1 ####[place] [address] Hematocrit (HCT) 35.8 % Low 40.1-51.0 [facility] Comment on above: Performed By: #### C BCD1 ####[place] [address] Hemoglobin mass conc (Bld) 11.8 g/dL Low 13.7-17.5 [facility] Comment on above: Performed By: #### C BCD1 ####[place] [address] Immature Grans 0.30 % Normal [facility] Comment on above: Performed By: #### C BCD1 ####[place] [address] Immature Grans # 0.02 thou/cmm Normal 0.00-0.05 [facility] Comment on above: Performed By: #### C BCD1 ####[place] [address] Lymphocytes 1.89 thou/cmm Normal 0.84-2.85 [facility] Comment on above: Performed By: #### C BCD1 ####[place] [address] Lymphocytes/100 leukocytes 30.9 % Normal [facility] Comment on above: Performed By: #### C BCD1 ####[address], [place] [address] MCH 33.1 pg High 25.7-32.2 [facility] Comment on above: Performed By: #### C BCD1 ####[address] [address] MCHC mass conc (RBC) 33.0 % Normal 32.3-36.5 [facility] Comment on above: Performed By: #### C BCD1 ####[place] [address] MCV 100.6 fL High 83.2-95.6 [facility] Comment on above: Performed By: #### C BCD1 ####[place] [address] Monocytes 0.54 thou/cmm Normal 0.30-0.82 [facility] Comment on above: Performed By: #### C BCD1 ####[place] [address] Monocytes/100 leukocytes 8.8 % Normal [facility] Comment on above: Performed By: #### C BCD1 ####[place] [address] Platelet mean volume (PMV) 9.4 fL Normal 8.7-12.0 [facility] Comment on above: Performed By: #### C BCD1 ####[place] [address] Platelets 174 thou/cmm Normal 141-365 [facility] Comment on above: Performed By: #### C BCD1 ####[place] [address] RDW SD 58.0 fl High 36.1-45.8 [facility] Comment on above: Performed By: #### C BCD1 ####[address] [address] Seg Neutrophil 58.7 % Normal [facility] Comment on above: Performed By: #### C BCD1 ####[place] [address] Seg. Neut.# 3.59 thou/cmm Normal 1.78-5.38 [facility] Comment on above: Performed By: #### C BCD1 ####[place] [address] WBC (Leukocytes) 6.11 thou/cmm Normal 4.23-9.07 [facility] Comment on above: Performed By: #### C BCD1 ####[place] [id number] MDRD GFRon 09-01-2016 eGFR (non-black) mL/min/{1.73_m2} Normal >60mL/m in/1.73 m2 [facility] Comment on above: Result Comment: If t he patient is , multiply the result by 1.210. Performed By: #### G FR ####[place] [address] Procalcitoninon 09-01-2016 Procalcitonin <0.05 Normal [facility] Comment on above: Result Comment: Leve ls [...] procalcitonin elevations. Performed By: #### P 8 ####[place] [address] Basic Panelon 08-31-2016 Creatinine 0.72 mg/dL Normal 0.67-1.17 [facility] Comment on above: Performed By: #### P 8 ####[place] [id number] Glucose mass conc 192 mg/dL High 70-99 [facility] Comment on above: Performed By: #### P 8 ####[place] [address] Anion gap 12 mmol/L Normal 8-16 [facility] Comment on above: Performed By: #### P 8 ####[facility] [place], [place] [address] Calcium 9.0 mg/dL Normal 8.5-10.1 [facility] Comment on above: Performed By: #### P 8 ####[facility] [place], [place] [address] CO2 25 mmol/L Normal 21-32 [facility] Comment on above: Performed By: #### P 8 ####[facility] [place], [place] [address] Urea nitrogen 18 mg/dL Normal 7-18 [facility] Comment on above: Performed By: #### P 8 ####[facility] [place] [address] Chloride 103 mmol/L Normal 98-107 [facility] Comment on above: Performed By: #### P 8 ####[facility] [place] [address] Potassium molar conc 3.9 mmol/L Normal 3.5-5.1 [facility] Comment on above: Performed By: #### P 8 ####[facility] [place] [address] Sodium 136 mmol/L Normal 136-145 [facility] Comment on above: Performed By: #### P 8 ####[address] [address] CRPon 08-31-2016 C reactive protein (CRP) 2.07 mg/dL High 0.00-0.30 [facility] Comment on above: Performed By: #### C RP3 ####[facility] [place], [place] [address] Cult Bloodon 08-31-2016 Cult Blood Test performed at [facility] No growth Normal [facility] Comment on above: Performed By: #### P 8 ####[facility] [place], [place] [address] Glucose Meteron 08-31-2016 Glucose mass conc 115 mg/dL High 70-99 [facility] Comment on above: Performed By: #### G LMET ####[address] [address] Hemogram/Diffon 08-31-2016 Basophils Auto #/vol (Bld) 0.02 thou/cmm Normal 0.01-0.08 [facility] Comment on above: Performed By: #### C BCD1 ####[address] [address] Basophils/100 WBC Auto (Bld) 0.2 % Normal [facility] Comment on above: Performed By: #### C BCD1 ####[address] [address] Eosinophils 0.02 thou/cmm Low 0.04-0.54 [facility] Comment on above: Performed By: #### C BCD1 ####[address] [address] Eosinophils/100 leukocytes 0.2 % Normal [facility] Comment on above: Performed By: #### C BCD1 ####[place] [address] Erythrocyte distribution width Auto Ratio (RBC) 15.8 % High 11.6-14.4 [facility] Comment on above: Performed By: #### C BCD1 ####[address] [address] Erythrocytes (RBC) 3.72 mil/cmm Low 4.63-6.08 [facility] Comment on above: Performed By: #### C BCD1 ####[address] [address] Hematocrit (HCT) 37.6 % Low 40.1-51.0 [facility] Comment on above: Performed By: #### C BCD1 ####[address] [address] Hemoglobin mass conc (Bld) 12.3 g/dL Low 13.7-17.5 [facility] Comment on above: Performed By: #### C BCD1 ####[place] [address] Immature Grans 0.50 % Normal [facility] Comment on above: Performed By: #### C BCD1 ####[place] [address] Immature Grans # 0.04 thou/cmm Normal 0.00-0.05 [facility] Comment on above: Performed By: #### C BCD1 ####[place] [address] Lymphocytes 2.04 thou/cmm Normal 0.84-2.85 [facility] Comment on above: Performed By: #### C BCD1 ####[place] [address] Lymphocytes/100 leukocytes 24.0 % Normal [facility] Comment on above: Performed By: #### C BCD1 ####[place] [address] MCH 33.1 pg High 25.7-32.2 [facility] Comment on above: Performed By: #### C BCD1 ####[place] [address] MCHC mass conc (RBC) 32.7 % Normal 32.3-36.5 [facility] Comment on above: Performed By: #### C BCD1 ####[place] [address] MCV 101.1 fL High 83.2-95.6 [facility] Comment on above: Performed By: #### C BCD1 ####[place] [address] Monocytes 0.60 thou/cmm Normal 0.30-0.82 [facility] Comment on above: Performed By: #### C BCD1 ####[place] [address] Monocytes/100 leukocytes 7.1 % Normal [facility] Comment on above: Performed By: #### C BCD1 ####[place] [address] Platelet mean volume (PMV) 10.0 fL Normal 8.7-12.0 [facility] Comment on above: Performed By: #### C BCD1 ####[facility] [place], [place] [address] Platelets 191 thou/cmm Normal 141-365 [facility] Comment on above: Performed By: #### C BCD1 ####[address] [address] RDW SD 57.6 fl High 36.1-45.8 [facility] Comment on above: Performed By: #### C BCD1 ####[address] [address] Seg Neutrophil 68.0 % Normal [facility] Comment on above: Performed By: #### C BCD1 ####[place] [address] Seg. Neut.# 5.79 thou/cmm High 1.78-5.38 [facility] Comment on above: Performed By: #### C BCD1 ####[place] [address] WBC (Leukocytes) 8.51 thou/cmm Normal 4.23-9.07 [facility] Comment on above: Performed By: #### C BCD1 ####[place] [id number] MDRD GFRon 08-31-2016 eGFR (non-black) mL/min/{1.73_m2} Normal >60mL/m in/1.73 m2 [facility] Comment on above: Result Comment: If t he patient is , multiply the result by 1.210. Performed By: #### G FR ####[address] [address] Sed Rateon 08-31-2016 Sed Rate 50 mm/hr High 0-14 [facility] Comment on above: Performed By: #### E SR ####[place] [address] No Panel Information [facility] Vital Signs Date Time Vital Sign Value Performing Clinician Faci lity 11-04-2024 15:05-0400 Body temperature 97.7 [degF] [facility] 11-04-2024 15:05-0400 Diastolic blood pressure 57 mm[Hg] [facility] 11-04-2024 15:05-0400 Heart rate 87 /min Chair Jackson [facility] 11-04-2024 15:05-0400 Respiratory rate 16 /min Chair Jackson [facility] 11-04-2024 15:05-0400 Systolic blood pressure 153 mm[Hg] [facility] 11-04-2024 14:08-0400 SaO2% (BldA) [Mass fraction] 98 % [facility] 10-28-2024 13:37-0400 Body temperature 98.2 [degF] Treatment 1 [facility] 10-28-2024 13:37-0400 Diastolic blood pressure 67 mm[Hg] Treatment 1 [facility] 10-28-2024 13:37-0400 Heart rate 95 /min Treatment 1 [facility] 10-28-2024 13:37-0400 Respiratory rate 16 /min Treatment 1 [facility] 10-28-2024 13:37-0400 SaO2% (BldA) [Mass fraction] 99 % Treatment 1 [facility] 10-28-2024 13:37-0400 Systolic blood pressure 146 mm[Hg] Treatment 1 [facility] 10-21-2024 14:30-0400 Body temperature 98.01 [degF] Treatment 1 [facility] 10-21-2024 14:30-0400 Diastolic blood pressure 62 mm[Hg] Treatment 1 [facility] 10-21-2024 14:30-0400 Heart rate 80 /min Treatment 1 [facility] 10-21-2024 14:30-0400 Respiratory rate 18 /min Treatment 1 [facility] 10-21-2024 14:30-0400 SaO2% (BldA) [Mass fraction] 98 % Treatment 1 [facility] 10-21-2024 14:30-0400 Systolic blood pressure 151 mm[Hg] Treatment 1 [facility] 10-14-2024 13:00-0400 Body temperature 98.4 [degF] Treatment 1 [facility] 10-14-2024 13:00-0400 Diastolic blood pressure 64 mm[Hg] Treatment 1 [facility] 10-14-2024 13:00-0400 Heart rate 94 /min Treatment 1 [facility] 10-14-2024 13:00-0400 Respiratory rate 16 /min Treatment 1 [facility] 10-14-2024 13:00-0400 SaO2% (BldA) [Mass fraction] 97 % Treatment 1 [facility] 10-14-2024 13:00-0400 Systolic blood pressure 136 mm[Hg] Treatment 1 [facility] 10-08-2024 15:11-0400 Body temperature 97.7 [degF] Treatment 1 [facility] 10-08-2024 15:11-0400 Diastolic blood pressure 56 mm[Hg] Treatment 1 [facility] 10-08-2024 15:11-0400 Heart rate 73 /min Treatment 1 [facility] 10-08-2024 15:11-0400 Respiratory rate 16 /min Treatment 1 [facility] 10-08-2024 15:11-0400 SaO2% (BldA) [Mass fraction] 98 % Treatment 1 [facility] 10-08-2024 15:11-0400 Systolic blood pressure 141 mm[Hg] Treatment 1 [facility] 10-07-2024 14:42-0400 Body mass index (BMI) [Ratio] 33.08 kg/m2 [facility] 10-07-2024 14:42-0400 Body temperature 97.5 [degF] [facility] 10-07-2024 14:42-0400 Body weight 101.3 kg [facility] 10-07-2024 14:42-0400 Diastolic blood pressure 55 mm[Hg] [facility] 10-07-2024 14:42-0400 Heart rate 111 /min [facility] 10-07-2024 14:42-0400 SaO2% (BldA) [Mass fraction] 99 % [facility] 10-07-2024 14:42-0400 Systolic blood pressure 133 mm[Hg] [facility] 09-24-2024 15:16-0400 Body temperature 98.8 [degF] Treatment 1 [facility] 09-24-2024 15:16-0400 Diastolic blood pressure 54 mm[Hg] Treatment 1 [facility] 09-24-2024 15:16-0400 Heart rate 80 /min Treatment 1 [facility] 09-24-2024 15:16-0400 Respiratory rate 18 /min Treatment 1 [facility] 09-24-2024 15:16-0400 Systolic blood pressure 139 mm[Hg] Treatment 1 [facility] 09-24-2024 13:12-0400 SaO2% (BldA) [Mass fraction] 98 % Treatment 1 [facility] 09-23-2024 11:25-0400 Body height 175 cm Annie Frank MD Work Phone: [facility] Comment on above: w shoes 09-23-2024 11:25-0400 Body mass index (BMI) [Ratio] 31.44 kg/m2 Annie Frank MD Work Phone: [facility] 09-23-2024 11:25-0400 Body temperature 97.39 [degF] Annie Frank MD Work Phone: [facility] 09-23-2024 11:25-0400 Body weight 96.3 kg Annie Frank MD Work Phone: [facility] Comment on above: w [facility] 09-23-2024 11:25-0400 Diastolic blood pressure 52 mm[Hg] Annie Frank MD Work Phone: [facility] 09-23-2024 11:25-0400 Heart rate 90 /min Annie Frank MD Work Phone: [facility] 09-23-2024 11:25-0400 Respiratory rate 20 /min Annie Frank MD Work Phone: [facility] 09-23-2024 11:25-0400 SaO2% (BldA) [Mass fraction] 98 % Annie Frank MD Work Phone: [facility] 09-23-2024 11:25-0400 Systolic blood pressure 134 mm[Hg] Annie Frank MD Work Phone: [facility] 09-16-2024 13:48-0400 Body temperature 98.49 [degF] Treatment 1 [facility] 09-16-2024 13:48-0400 Diastolic blood pressure 60 mm[Hg] Treatment 1 [facility] 09-16-2024 13:48-0400 Heart rate 92 /min Treatment 1 [facility] 09-16-2024 13:48-0400 Respiratory rate 16 /min Treatment 1 [facility] 09-16-2024 13:48-0400 SaO2% (BldA) [Mass fraction] 100 % Treatment 1 [facility] 09-16-2024 13:48-0400 Systolic blood pressure 147 mm[Hg] Treatment 1 [facility] 09-09-2024 14:32-0400 Body temperature 97.2 [degF] [facility] 09-09-2024 14:32-0400 Diastolic blood pressure 67 mm[Hg] [facility] 09-09-2024 14:32-0400 Heart rate 110 /min [facility] 09-09-2024 14:32-0400 Respiratory rate 16 /min [facility] 09-09-2024 14:32-0400 Systolic blood pressure 160 mm[Hg] [facility] 09-09-2024 12:32-0400 Body mass index (BMI) [Ratio] 31.7 kg/m2 [facility] 09-09-2024 12:32-0400 Body weight 98.8 kg [facility] 09-09-2024 12:32-0400 SaO2% (BldA) [Mass fraction] 98 % [facility] 09-02-2024 14:35-0400 Body temperature 98.4 [degF] Treatment [address] [place] [address] 09-02-2024 14:35-0400 Diastolic blood pressure 66 mm[Hg] Treatment 1 [facility] 09-02-2024 14:35-0400 Heart rate 78 /min Treatment 1 [facility] 09-02-2024 14:35-0400 Respiratory rate 18 /min Treatment [address] [place] [address] 09-02-2024 14:35-0400 SaO2% (BldA) [Mass fraction] 99 % Treatment 1 [facility] 09-02-2024 14:35-0400 Systolic blood pressure 137 mm[Hg] Treatment 1 [facility] 08-26-2024 12:39-0400 Body temperature 98.6 [degF] Treatment 1 [facility] 08-26-2024 12:39-0400 Diastolic blood pressure 66 mm[Hg] Treatment 1 [facility] 08-26-2024 12:39-0400 Heart rate 89 /min Treatment 1 [facility] 08-26-2024 12:39-0400 Respiratory rate 18 /min Treatment 1 [facility] 08-26-2024 12:39-0400 SaO2% (BldA) [Mass fraction] 98 % Treatment 1 [facility] 08-26-2024 12:39-0400 Systolic blood pressure 151 mm[Hg] Treatment 1 [facility] 08-19-2024 14:13-0400 Body temperature 97.9 [degF] Treatment 2 [facility] 08-19-2024 14:13-0400 Diastolic blood pressure 67 mm[Hg] Treatment 2 [facility] 08-19-2024 14:13-0400 Heart rate 70 /min Treatment 2 [facility] 08-19-2024 14:13-0400 Respiratory rate 18 /min Treatment 2 [facility] 08-19-2024 14:13-0400 SaO2% (BldA) [Mass fraction] 99 % Treatment 2 [facility] 08-19-2024 14:13-0400 Systolic blood pressure 146 mm[Hg] Treatment 2 [facility] 08-12-2024 14:41-0400 Body temperature 98.01 [degF] Treatment 1 [facility] 08-12-2024 14:41-0400 Diastolic blood pressure 61 mm[Hg] Treatment 1 [facility] 08-12-2024 14:41-0400 Heart rate 72 /min Treatment 1 [facility] 08-12-2024 14:41-0400 Respiratory rate 16 /min Treatment 1 [facility] 08-12-2024 14:41-0400 Systolic blood pressure 129 mm[Hg] Treatment 1 [facility] 08-12-2024 12:41-0400 SaO2% (BldA) [Mass fraction] 98 % Treatment 1 [facility] 08-11-2024 15:30-0400 Body height 172.7 cm Sabas Vargas MD Work Phone: [facility] 08-11-2024 15:30-0400 Body mass index (BMI) [Ratio] 32.77 kg/m2 Sabas Vargas MD Work Phone: [facility] 08-11-2024 15:30-0400 Body temperature 98.71 [degF] Sabas Vargas MD Work Phone: [facility] 08-11-2024 15:30-0400 Body weight 97.75 kg Sabas Vargas MD Work Phone: [facility] 08-11-2024 15:30-0400 Diastolic blood pressure 64 mm[Hg] Sabas Vargas MD Work Phone: [facility] 08-11-2024 15:30-0400 Heart rate 91 /min Sabas Vargas MD Work Phone: [facility] 08-11-2024 15:30-0400 SaO2% (BldA) [Mass fraction] 99 % Sabas Vargas MD Work Phone: [facility] 08-11-2024 15:30-0400 Systolic blood pressure 130 mm[Hg] Sabas Vargas MD Work Phone: [facility] 08-05-2024 11:05-0400 Body height 176.5 cm Vicenta Lai Work Phone: [facility] 08-05-2024 11:05-0400 Body mass index (BMI) [Ratio] 31.44 kg/m2 Vicenta Noriega MD Work Phone: [facility] 08-05-2024 11:05-0400 Body temperature 97.59 [degF] Vicenta Lai Work Phone: [facility] 08-05-2024 11:05-0400 Body weight 97.98 kg Vicenta Lai Work Phone: [facility] 08-05-2024 11:05-0400 Diastolic blood pressure 70 mm[Hg] Vicenta Noriega MD Work Phone: [facility] 08-05-2024 11:05-0400 Heart rate 89 /min Vicenta Lai Work Phone: [facility] 08-05-2024 11:05-0400 SaO2% (BldA) [Mass fraction] 97 % Vicenta Noriega MD Work Phone: [facility] 08-05-2024 11:05-0400 Systolic blood pressure 149 mm[Hg] Vicenta Noriega MD Work Phone: [facility] 07-29-2024 15:16-0400 Body temperature 98.29 [degF] Treatment 1 [facility] 07-29-2024 15:16-0400 Diastolic blood pressure 72 mm[Hg] Treatment 1 [facility] 07-29-2024 15:16-0400 Heart rate 79 /min Treatment 1 [facility] 07-29-2024 15:16-0400 Respiratory rate 18 /min Treatment 1 [facility] 07-29-2024 15:16-0400 Systolic blood pressure 153 mm[Hg] Treatment 1 [facility] 07-29-2024 13:40-0400 SaO2% (BldA) [Mass fraction] 96 % Treatment 1 [facility] 07-24-2024 09:28-0400 Body height 172.7 cm Sabas Vargas MD Work Phone: [facility] 07-24-2024 09:28-0400 Body mass index (BMI) [Ratio] 32.07 kg/m2 Sabas Vargas MD Work Phone: [facility] 07-24-2024 09:28-0400 Body temperature 98.1 [degF] Sabas Vargas MD Work Phone: [facility] 07-24-2024 09:28-0400 Body weight 95.66 kg Sabas Vargas MD Work Phone: [facility] 07-24-2024 09:28-0400 Diastolic blood pressure 56 mm[Hg] Sabas Vargas MD Work Phone: [facility] 07-24-2024 09:28-0400 Heart rate 105 /min Sabas Vargas MD Work Phone: [facility] 07-24-2024 09:28-0400 SaO2% (BldA) [Mass fraction] 99 % Sabas Vargas MD Work Phone: [facility] 07-24-2024 09:28-0400 Systolic blood pressure 103 mm[Hg] Sabas Vargas MD Work Phone: [facility] 07-21-2024 13:30-0400 Diastolic blood pressure 62 mm[Hg] Miguelangel Magana MD, MD Work Phone: [facility] 07-21-2024 13:30-0400 SaO2% (BldA) [Mass fraction] 96 % Miguelangel Magana MD, MD Work Phone: [facility] 07-21-2024 13:30-0400 Systolic blood pressure 129 mm[Hg] Miguelangel Magana MD, MD Work Phone: [facility] 07-21-2024 13:00-0400 Heart rate 87 /min Miguelangel Magana MD, MD Work Phone: [facility] 07-21-2024 13:00-0400 Respiratory rate 14 /min Miguelangel Magana MD, MD Work Phone: [facility] 07-21-2024 12:16-0400 Body temperature 97.59 [degF] Miguelangel Magana MD, MD Work Phone: [facility] 07-21-2024 11:24-0400 Body mass index (BMI) [Ratio] 31.88 kg/m2 Miguelangel Magana MD, MD Work Phone: [facility] 07-21-2024 11:24-0400 Body weight 99.34 kg Miguelangel Magana MD, MD Work Phone: [facility] 07-03-2024 15:27-0400 Body temperature 97.81 [degF] Treatment 1 [facility] 07-03-2024 15:27-0400 Diastolic blood pressure 84 mm[Hg] Treatment 1 [facility] 07-03-2024 15:27-0400 Heart rate 76 /min Treatment 1 [facility] 07-03-2024 15:27-0400 Respiratory rate 20 /min Treatment 1 [facility] 07-03-2024 15:27-0400 Systolic blood pressure 153 mm[Hg] Treatment 1 [facility] 07-03-2024 13:49-0400 SaO2% (BldA) [Mass fraction] 98 % Treatment 1 [facility] 06-30-2024 11:41-0400 Body height 175.3 cm [facility] 06-30-2024 11:41-0400 Body mass index (BMI) [Ratio] 32.22 kg/m2 [facility] 06-30-2024 11:41-0400 Body temperature 97.7 [degF] [facility] 06-30-2024 11:41-0400 Body weight 99 kg [facility] 06-30-2024 11:41-0400 Diastolic blood pressure 68 mm[Hg] [facility] 06-30-2024 11:41-0400 Heart rate 92 /min [facility] 06-30-2024 11:41-0400 Respiratory rate 16 /min [facility] 06-30-2024 11:41-0400 SaO2% (BldA) [Mass fraction] 98 % [facility] 06-30-2024 11:41-0400 Systolic blood pressure 142 mm[Hg] [facility] 06-02-2024 16:29-0400 Body temperature 97.2 [degF] [facility] 06-02-2024 16:29-0400 Diastolic blood pressure 83 mm[Hg] [facility] 06-02-2024 16:29-0400 Heart rate 65 /min [facility] 06-02-2024 16:29-0400 Respiratory rate 18 /min [facility] 06-02-2024 16:29-0400 Systolic blood pressure 167 mm[Hg] [facility] 06-02-2024 11:10-0400 Body mass index (BMI) [Ratio] 32.72 kg/m2 [facility] 06-02-2024 11:10-0400 Body weight 100.55 kg [facility] 06-02-2024 11:10-0400 SaO2% (BldA) [Mass fraction] 99 % [facility] 05-26-2024 15:37-0400 Body temperature 98.29 [degF] Treatment 1 [facility] 05-26-2024 15:37-0400 Diastolic blood pressure 74 mm[Hg] Treatment 1 [facility] 05-26-2024 15:37-0400 Heart rate 66 /min Treatment 1 [facility] 05-26-2024 15:37-0400 Respiratory rate 18 /min Treatment 1 [facility] 05-26-2024 15:37-0400 SaO2% (BldA) [Mass fraction] 97 % Treatment 1 [facility] 05-26-2024 15:37-0400 Systolic blood pressure 158 mm[Hg] Treatment 1 [facility] 05-06-2024 16:26-0400 Diastolic blood pressure 81 mm[Hg] Treatment 1 [facility] 05-06-2024 16:26-0400 Heart rate 66 /min Treatment 1 [facility] 05-06-2024 16:26-0400 Respiratory rate 18 /min Treatment 1 [facility] 05-06-2024 16:26-0400 Systolic blood pressure 175 mm[Hg] Treatment 1 [facility] 05-06-2024 15:52-0400 Body temperature 98.8 [degF] Treatment 1 [facility] 05-06-2024 11:59-0400 SaO2% (BldA) [Mass fraction] 98 % Treatment 1 [facility] 05-05-2024 16:48-0400 Body temperature 97.3 [degF] [facility] 05-05-2024 16:48-0400 Diastolic blood pressure 69 mm[Hg] [facility] 05-05-2024 16:48-0400 Heart rate 76 /min [facility] 05-05-2024 16:48-0400 Respiratory rate 18 /min [facility] 05-05-2024 16:48-0400 Systolic blood pressure 159 mm[Hg] [facility] 05-05-2024 11:34-0400 Body mass index (BMI) [Ratio] 32.64 kg/m2 [facility] 05-05-2024 11:34-0400 Body weight 100.31 kg [facility] 05-05-2024 11:34-0400 SaO2% (BldA) [Mass fraction] 98 % [facility] 04-16-2024 17:20-0500 Diastolic blood pressure 78 mm[Hg] Treatment 1 [facility] 04-16-2024 17:20-0500 Systolic blood pressure 158 mm[Hg] Treatment 1 [facility] 04-16-2024 17:08-0500 Body temperature 97.9 [degF] Treatment 1 [facility] 04-16-2024 17:08-0500 Heart rate 64 /min Treatment 1 [facility] 04-16-2024 17:08-0500 Respiratory rate 16 /min Treatment 1 [facility] 04-16-2024 13:10-0500 SaO2% (BldA) [Mass fraction] 94 % Treatment 1 [facility] 04-14-2024 14:10-0500 Body temperature 97.7 [degF] Treatment 1 [facility] 04-14-2024 14:10-0500 Diastolic blood pressure 72 mm[Hg] Treatment 1 [facility] 04-14-2024 14:10-0500 Heart rate 75 /min Treatment 1 [facility] 04-14-2024 14:10-0500 Respiratory rate 18 /min Treatment [address] [place] [address] 04-14-2024 14:10-0500 SaO2% (BldA) [Mass fraction] 99 % Treatment 1 [facility] 04-14-2024 14:10-0500 Systolic blood pressure 160 mm[Hg] Treatment 1 [facility] 04-07-2024 16:00-0500 Diastolic blood pressure 76 mm[Hg] [facility] 04-07-2024 16:00-0500 Heart rate 76 /min [facility] 04-07-2024 16:00-0500 Systolic blood pressure 187 mm[Hg] [facility] 04-07-2024 13:22-0500 SaO2% (BldA) [Mass fraction] 97 % [facility] 04-07-2024 11:58-0500 Body height 175.3 cm [facility] 04-07-2024 11:58-0500 Body mass index (BMI) [Ratio] 32.75 kg/m2 [facility] 04-07-2024 11:58-0500 Body temperature 97.3 [degF] [facility] 04-07-2024 11:58-0500 Body weight 100.65 kg [facility] 04-07-2024 11:58-0500 Respiratory rate 18 /min [facility] 03-25-2024 15:12-0500 Body temperature 97.9 [degF] Treatment 1 [facility] 03-25-2024 15:12-0500 Diastolic blood pressure 64 mm[Hg] Treatment 1 [facility] 03-25-2024 15:12-0500 Heart rate 61 /min Treatment 1 [facility] 03-25-2024 15:12-0500 Respiratory rate 16 /min Treatment [address] [place] [address] 03-25-2024 15:12-0500 Systolic blood pressure 173 mm[Hg] Treatment 1 [facility] 03-25-2024 12:55-0500 SaO2% (BldA) [Mass fraction] 98 % Treatment 1 [facility] 03-24-2024 16:26-0500 Body temperature 97.3 [degF] [facility] 03-24-2024 16:26-0500 Diastolic blood pressure 70 mm[Hg] [facility] 03-24-2024 16:26-0500 Heart rate 68 /min [facility] 03-24-2024 16:26-0500 Respiratory rate 18 /min [facility] 03-24-2024 16:26-0500 Systolic blood pressure 146 mm[Hg] [facility] 03-24-2024 13:43-0500 Body height 175.3 cm Vicenta Lai Work Phone: [facility] 03-24-2024 13:30-0500 Body height 175.2 cm [facility] 03-24-2024 13:30-0500 Body mass index (BMI) [Ratio] 32.61 kg/m2 [facility] 03-24-2024 13:30-0500 Body weight 100.1 kg [facility] 03-24-2024 13:30-0500 SaO2% (BldA) [Mass fraction] 99 % [facility] 03-13-2024 14:35-0500 Body height 175.3 cm Vicenta Lai Work Phone: [facility] 03-13-2024 14:35-0500 Body mass index (BMI) [Ratio] 32.49 kg/m2 Vicenta Noriega MD Work Phone: [facility] 03-13-2024 14:35-0500 Body temperature 97.81 [degF] Vicenta Lai Work Phone: [facility] 03-13-2024 14:35-0500 Body weight 99.79 kg Vicenta Lai Work Phone: [facility] 03-13-2024 14:35-0500 Diastolic blood pressure 60 mm[Hg] Vicenta Noriega MD Work Phone: [facility] Comment on above: rt arm 03-13-2024 14:35-0500 Heart rate 87 /min Vicenta Lai Work Phone: [facility] 03-13-2024 14:35-0500 SaO2% (BldA) [Mass fraction] 99 % Vicenta Noriega MD Work Phone: [facility] 03-13-2024 14:35-0500 Systolic blood pressure 122 mm[Hg] Vicenta Noriega MD Work Phone: [facility] Comment on above: rt [facility] 02-12-2024 15:22-0500 Body temperature 97.7 [degF] Treatment 3 [facility] 02-12-2024 15:22-0500 Diastolic blood pressure 65 mm[Hg] Treatment 3 [facility] 02-12-2024 15:22-0500 Heart rate 61 /min Treatment 3 [facility] 02-12-2024 15:22-0500 Respiratory rate 16 /min Treatment 3 [facility] 02-12-2024 15:22-0500 SaO2% (BldA) [Mass fraction] 98 % Treatment 3 [facility] 02-12-2024 15:22-0500 Systolic blood pressure 159 mm[Hg] Treatment [address] [place] [address] 02-07-2024 15:55-0500 Body temperature 97.2 [degF] [facility] 02-07-2024 15:55-0500 Diastolic blood pressure 71 mm[Hg] [facility] 02-07-2024 15:55-0500 Heart rate 70 /min [facility] 02-07-2024 15:55-0500 Respiratory rate 18 /min [facility] 02-07-2024 15:55-0500 Systolic blood pressure 162 mm[Hg] [facility] 02-07-2024 09:40-0500 Body mass index (BMI) [Ratio] 32.12 kg/m2 [facility] 02-07-2024 09:40-0500 Body weight 98.6 kg [facility] 02-07-2024 09:40-0500 SaO2% (BldA) [Mass fraction] 98 % [facility] 01-30-2024 16:52-0500 Body temperature 97.39 [degF] Treatment [address] [place] [address] 01-30-2024 16:52-0500 Diastolic blood pressure 64 mm[Hg] Treatment 1 [facility] 01-30-2024 16:52-0500 Heart rate 67 /min Treatment 1 [facility] 01-30-2024 16:52-0500 Respiratory rate 18 /min Treatment [address] [place] [address] 01-30-2024 16:52-0500 SaO2% (BldA) [Mass fraction] 98 % Treatment 1 [facility] 01-30-2024 16:52-0500 Systolic blood pressure 153 mm[Hg] Treatment 1 [facility] 01-10-2024 15:27-0500 Diastolic blood pressure 76 mm[Hg] [facility] 01-10-2024 15:27-0500 Heart rate 64 /min [facility] 01-10-2024 15:27-0500 Systolic blood pressure 167 mm[Hg] [facility] 01-10-2024 09:59-0500 Body height 175.2 cm [facility] 01-10-2024 09:59-0500 Body mass index (BMI) [Ratio] 31.5 kg/m2 [facility] 01-10-2024 09:59-0500 Body temperature 97.3 [degF] [facility] 01-10-2024 09:59-0500 Body weight 96.7 kg [facility] 01-10-2024 09:59-0500 SaO2% (BldA) [Mass fraction] 95 % [facility] 12-31-2023 10:21-0500 Body mass index (BMI) [Ratio] 31.6 kg/m2 [facility] 12-31-2023 10:21-0500 Body temperature 97.5 [degF] [facility] 12-31-2023 10:21-0500 Body weight 97.1 kg [facility] 12-31-2023 10:21-0500 Diastolic blood pressure 58 mm[Hg] [facility] 12-31-2023 10:21-0500 Heart rate 84 /min [facility] 12-31-2023 10:21-0500 SaO2% (BldA) [Mass fraction] 97 % [facility] 12-31-2023 10:21-0500 Systolic blood pressure 121 mm[Hg] [facility] 12-11-2023 14:06-0400 Body temperature 98.8 [degF] Treatment 1 [facility] 12-11-2023 14:06-0400 Diastolic blood pressure 68 mm[Hg] Treatment 1 [facility] 12-11-2023 14:06-0400 Heart rate 69 /min Treatment 1 [facility] 12-11-2023 14:06-0400 Respiratory rate 20 /min Treatment 1 [facility] 12-11-2023 14:06-0400 SaO2% (BldA) [Mass fraction] 97 % Treatment 1 [facility] 12-11-2023 14:06-0400 Systolic blood pressure 169 mm[Hg] Treatment 1 [facility] 11-28-2023 14:44-0400 Body height 175.3 cm Vicenta Lai Work Phone: [facility] 11-28-2023 14:44-0400 Body mass index (BMI) [Ratio] 32.3 kg/m2 Vicenta Noriega MD Work Phone: [facility] 11-28-2023 14:44-0400 Body weight 99.25 kg Vicenta Lai Work Phone: [facility] 11-28-2023 14:44-0400 Diastolic blood pressure 68 mm[Hg] Vicenta Noriega MD Work Phone: [facility] 11-28-2023 14:44-0400 Heart rate 70 /min Vicenta Lai Work Phone: [facility] 11-28-2023 14:44-0400 SaO2% (BldA) [Mass fraction] 97 % Vicenta Noriega MD Work Phone: [facility] 11-28-2023 14:44-0400 Systolic blood pressure 167 mm[Hg] Vicenta Noriega MD Work Phone: [facility] 11-20-2023 16:16-0400 Diastolic blood pressure 70 mm[Hg] Treatment 1 [facility] 11-20-2023 16:16-0400 Systolic blood pressure 178 mm[Hg] Treatment 1 [facility] 11-20-2023 15:55-0400 Body temperature 98.2 [degF] Treatment 1 [facility] 11-20-2023 15:55-0400 Heart rate 65 /min Treatment 1 [facility] 11-20-2023 15:55-0400 Respiratory rate 16 /min Treatment 1 [facility] 11-19-2023 13:12-0400 Body temperature 98.4 [degF] Treatment 2 [facility] 11-19-2023 13:12-0400 Diastolic blood pressure 62 mm[Hg] Treatment 2 [facility] 11-19-2023 13:12-0400 Heart rate 69 /min Treatment 2 [facility] 11-19-2023 13:12-0400 Respiratory rate 20 /min Treatment 2 [facility] 11-19-2023 13:12-0400 SaO2% (BldA) [Mass fraction] 96 % Treatment 2 [facility] 11-19-2023 13:12-0400 Systolic blood pressure 133 mm[Hg] Treatment 2 [facility] 10-29-2023 14:00-0400 Diastolic blood pressure 60 mm[Hg] Treatment 2 [facility] 10-29-2023 14:00-0400 Heart rate 74 /min Treatment 2 [facility] 10-29-2023 14:00-0400 Respiratory rate 16 /min Treatment 2 [facility] 10-29-2023 14:00-0400 SaO2% (BldA) [Mass fraction] 96 % Treatment 2 [facility] 10-29-2023 14:00-0400 Systolic blood pressure 138 mm[Hg] Treatment 2 [facility] 10-08-2023 14:29-0400 Body temperature 98.49 [degF] Treatment 1 [facility] 10-08-2023 14:29-0400 Diastolic blood pressure 66 mm[Hg] Treatment 1 [facility] 10-08-2023 14:29-0400 Heart rate 70 /min Treatment 1 [facility] 10-08-2023 14:29-0400 Respiratory rate 16 /min Treatment 1 [facility] 10-08-2023 14:29-0400 SaO2% (BldA) [Mass fraction] 98 % Treatment 1 [facility] 10-08-2023 14:29-0400 Systolic blood pressure 169 mm[Hg] Treatment 1 [facility] 10-03-2023 15:20-0400 Body height 175.3 cm Vicenta Lai Work Phone: [facility] 10-03-2023 15:20-0400 Body mass index (BMI) [Ratio] 32.34 kg/m2 Vicenta Noriega MD Work Phone: [facility] 10-03-2023 15:20-0400 Body temperature 97.81 [degF] Vicenta Lai Work Phone: [facility] 10-03-2023 15:20-0400 Body weight 99.34 kg Vicenta Lai Work Phone: [facility] 10-03-2023 15:20-0400 Diastolic blood pressure 72 mm[Hg] Vicenta Noriega MD Work Phone: [facility] Comment on above: rt arm 10-03-2023 15:20-0400 Heart rate 58 /min Vicenta Lai Work Phone: [facility] 10-03-2023 15:20-0400 SaO2% (BldA) [Mass fraction] 93 % Vicenta Noriega MD Work Phone: [facility] 10-03-2023 15:20-0400 Systolic blood pressure 155 mm[Hg] Vicenta Noriega MD Work Phone: [facility] Comment on above: rt arm 09-19-2023 13:19-0400 Body height 175.3 cm Rowena Guerra [employer] Work Phone: [facility] 09-19-2023 13:19-0400 Body mass index (BMI) [Ratio] 31.58 kg/m2 Rowena Guerra [employer] Work Phone: [facility] 09-19-2023 13:19-0400 Body weight 97 kg Rowena Guerra DIRECTOR STARS.MEDICAL RECORD LIBRARIAN Work Phone: [facility] 09-19-2023 13:19-0400 Diastolic blood pressure 70 mm[Hg] Rowena Guerra DIRECTOR STARS.MEDICAL RECORD LIBRARIAN Work Phone: [facility] 09-19-2023 13:19-0400 Heart rate 68 /min Rowena Guerra DIRECTOR STARS[employer]MEDICAL RECORD LIBRARIAN Work Phone: [facility] 09-19-2023 13:19-0400 SaO2% (BldA) [Mass fraction] 97 % Rowena Guerra DIRECTOR STARS.MEDICAL RECORD LIBRARIAN Work Phone: [facility] 09-19-2023 13:19-0400 Systolic blood pressure 138 mm[Hg] Rowena Guerra DIRECTOR STARS[employer]MEDICAL RECORD LIBRARIAN Work Phone: [facility] 09-18-2023 15:37-0400 Diastolic blood pressure 77 mm[Hg] Treatment 1 [facility] 09-18-2023 15:37-0400 Heart rate 65 /min Treatment 1 [facility] 09-18-2023 15:37-0400 Respiratory rate 18 /min Treatment 1 [facility] 09-18-2023 15:37-0400 SaO2% (BldA) [Mass fraction] 97 % Treatment 1 [facility] 09-18-2023 15:37-0400 Systolic blood pressure 172 mm[Hg] Treatment 1 [facility] 09-18-2023 15:25-0400 Body temperature 97.7 [degF] Treatment 1 [facility] 09-13-2023 13:49-0400 Body temperature 98.71 [degF] Treatment 1 [facility] 09-13-2023 13:49-0400 Diastolic blood pressure 63 mm[Hg] Treatment 1 [facility] 09-13-2023 13:49-0400 Heart rate 82 /min Treatment 1 [facility] 09-13-2023 13:49-0400 Respiratory rate 16 /min Treatment 1 [facility] 09-13-2023 13:49-0400 SaO2% (BldA) [Mass fraction] 97 % Treatment 1 [facility] 09-13-2023 13:49-0400 Systolic blood pressure 128 mm[Hg] Treatment 1 [facility] 08-23-2023 13:35-0400 Body temperature 99.1 [degF] Treatment 1 [facility] 08-23-2023 13:35-0400 Diastolic blood pressure 55 mm[Hg] Treatment 1 [facility] 08-23-2023 13:35-0400 Heart rate 76 /min Treatment 1 [facility] 08-23-2023 13:35-0400 Respiratory rate 16 /min Treatment 1 [facility] 08-23-2023 13:35-0400 SaO2% (BldA) [Mass fraction] 97 % Treatment 1 [facility] 08-23-2023 13:35-0400 Systolic blood pressure 122 mm[Hg] Treatment 1 [facility] 08-02-2023 13:46-0400 Body temperature 97.9 [degF] Treatment 1 [facility] 08-02-2023 13:46-0400 Diastolic blood pressure 72 mm[Hg] Treatment 1 [facility] 08-02-2023 13:46-0400 Heart rate 77 /min Treatment 1 [facility] 08-02-2023 13:46-0400 Respiratory rate 16 /min Treatment 1 [facility] 08-02-2023 13:46-0400 SaO2% (BldA) [Mass fraction] 97 % Treatment 1 [facility] 08-02-2023 13:46-0400 Systolic blood pressure 116 mm[Hg] Treatment 1 [facility] 08-01-2023 14:39-0400 Body height 175.3 cm Vicenta Lai Work Phone: [facility] 08-01-2023 14:39-0400 Body mass index (BMI) [Ratio] 32.34 kg/m2 Vicenta Noriega MD Work Phone: [facility] 08-01-2023 14:39-0400 Body weight 99.34 kg Vicenta Lai Work Phone: [facility] 08-01-2023 14:39-0400 Diastolic blood pressure 68 mm[Hg] Vicenta Noriega MD Work Phone: [facility] Comment on above: right arm 08-01-2023 14:39-0400 Heart rate 94 /min Vicenta Lai Work Phone: [facility] 08-01-2023 14:39-0400 SaO2% (BldA) [Mass fraction] 98 % Vicenta Noriega MD Work Phone: [facility] 08-01-2023 14:39-0400 Systolic blood pressure 150 mm[Hg] Vicenta Noriega MD Work Phone: [facility] Comment on above: right arm 07-12-2023 10:040 Body temperature 98.01 [degF] Treatment 1 [facility] 07-12-2023 [id number] Diastolic blood pressure 60 mm[Hg] Treatment 1 [facility] 07-12-2023 10:[id number] Heart rate 70 /min Treatment 1 [facility] 07-12-2023 10:28040 Respiratory rate 16 /min Treatment 1 [facility] 07-12-2023 10:28040 SaO2% (BldA) [Mass fraction] 98 % Treatment 1 [facility] 07-12-2023 10:28040 Systolic blood pressure 134 mm[Hg] Treatment 1 [facility] 06-28-2023 14:20-0400 Body height 175.3 cm Rowena Daeliashausen DIRECTOR STARS[employer]MEDICAL RECORD LIBRARIAN Work Phone: [facility] 06-28-2023 14:20-0400 Body mass index (BMI) [Ratio] 32.52 kg/m2 Rowena Jinhausen DIRECTOR STARS[employer]MEDICAL RECORD LIBRARIAN Work Phone: [facility] 06-28-2023 14:20-0400 Body weight 99.9 kg Rowenajuan Abdihausen DIRECTOR STARS.MEDICAL RECORD LIBRARIAN Work Phone: [facility] 06-28-2023 14:20-0400 Diastolic blood pressure 69 mm[Hg] Rowenajuan Abdihausen DIRECTOR STARS.MEDICAL RECORD LIBRARIAN Work Phone: [facility] 06-28-2023 14:20-0400 Heart rate 78 /min Rowenajuan Abdihausen DIRECTOR STARS[employer]MEDICAL RECORD LIBRARIAN Work Phone: [facility] 06-28-2023 14:20-0400 SaO2% (BldA) [Mass fraction] 98 % Rowenajuan Abdihausen DIRECTOR STARS[employer]MEDICAL RECORD LIBRARIAN Work Phone: [facility] 06-28-2023 14:20-0400 Systolic blood pressure 126 mm[Hg] Rwoena Dahlhausen DIRECTOR [employer]MED[employer] RECORD LIBRARIAN Work Phone: [facility] 06-21-2023 14:13-0400 Body temperature 99 [degF] Treatment 1 [facility] 06-21-2023 14:13-0400 Diastolic blood pressure 65 mm[Hg] Treatment 1 [facility] 06-21-2023 14:13-0400 Heart rate 75 /min Treatment 1 [facility] 06-21-2023 14:13-0400 Respiratory rate 20 /min Treatment 1 [facility] 06-21-2023 14:13-0400 SaO2% (BldA) [Mass fraction] 97 % Treatment 1 [facility] 06-21-2023 14:13-0400 Systolic blood pressure 160 mm[Hg] Treatment 1 [facility] 06-03-2023 14:01-0400 Body height 177.8 cm Vicenta Lai Work Phone: [facility] 06-03-2023 14:01-0400 Body mass index (BMI) [Ratio] 31.14 kg/m2 Vicenta Noriega MD Work Phone: [facility] 06-03-2023 14:01-0400 Body temperature 98.1 [degF] Vicenta Lai Work Phone: [facility] 06-03-2023 14:01-0400 Body weight 98.43 kg Vicenta Lai Work Phone: [facility] 06-03-2023 14:01-0400 Diastolic blood pressure 67 mm[Hg] Vicenta Noriega MD Work Phone: [facility] Comment on above: right arm 06-03-2023 14:01-0400 Heart rate 89 /min Vicenta Lai Work Phone: [facility] 06-03-2023 14:01-0400 SaO2% (BldA) [Mass fraction] 98 % Vicenta Noriega MD Work Phone: [facility] 06-03-2023 14:01-0400 Systolic blood pressure 169 mm[Hg] Vicenta Noriega MD Work Phone: [facility] Comment on above: right arm 05-30-2023 14:08-0400 Body temperature 98.6 [degF] Treatment 1 [facility] 05-30-2023 14:08-0400 Diastolic blood pressure 59 mm[Hg] Treatment 1 [facility] 05-30-2023 14:08-0400 Heart rate 73 /min Treatment 1 [facility] 05-30-2023 14:08-0400 Respiratory rate 20 /min Treatment 1 [facility] 05-30-2023 14:08-0400 SaO2% (BldA) [Mass fraction] 97 % Treatment 1 [facility] 05-30-2023 14:08-0400 Systolic blood pressure 139 mm[Hg] Treatment 1 [facility] 05-10-2023 14:15-0400 Body temperature 98.29 [degF] Treatment 1 [facility] 05-10-2023 14:15-0400 Diastolic blood pressure 65 mm[Hg] Treatment 1 [facility] 05-10-2023 14:15-0400 Heart rate 75 /min Treatment 1 [facility] 05-10-2023 14:15-0400 Respiratory rate 20 /min Treatment 1 [facility] 05-10-2023 14:15-0400 SaO2% (BldA) [Mass fraction] 98 % Treatment 1 [facility] 05-10-2023 14:15-0400 Systolic blood pressure 135 mm[Hg] Treatment 1 [facility] 04-19-2023 14:25-0500 Body temperature 98.91 [degF] Treatment 1 [facility] 04-19-2023 14:25-0500 Diastolic blood pressure 64 mm[Hg] Treatment 1 [facility] 04-19-2023 14:25-0500 Heart rate 89 /min Treatment 1 [facility] 04-19-2023 14:25-0500 Respiratory rate 18 /min Treatment 1 [facility] 04-19-2023 14:25-0500 SaO2% (BldA) [Mass fraction] 100 % Treatment 1 [facility] 04-19-2023 14:25-0500 Systolic blood pressure 127 mm[Hg] Treatment 1 [facility] 04-08-2023 15:07-0500 Body height 177.8 cm Vicenta Lai Work Phone: [facility] 04-08-2023 15:07-0500 Body mass index (BMI) [Ratio] 30.71 kg/m2 Vicenta Noriega MD Work Phone: [facility] 04-08-2023 15:07-0500 Body temperature 98.2 [degF] Vicenta Lai Work Phone: [facility] 04-08-2023 15:07-0500 Body weight 97.07 kg Vicenta Lai Work Phone: [facility] 04-08-2023 15:07-0500 Diastolic blood pressure 71 mm[Hg] Vicenta Noriega MD Work Phone: [facility] Comment on above: left arm 04-08-2023 15:07-0500 Heart rate 75 /min Vicenta Lai Work Phone: [facility] 04-08-2023 15:07-0500 SaO2% (BldA) [Mass fraction] 98 % Vicenta Noriega MD Work Phone: [facility] 04-08-2023 15:07-0500 Systolic blood pressure 177 mm[Hg] Vicenta Noriega MD Work Phone: [facility] Comment on above: left arm 03-29-2023 14:57-0500 Body temperature 97.3 [degF] Chair Bath Work Phone: [facility] 03-29-2023 14:57-0500 Body weight 96.89 kg Chair Bath Work Phone: [facility] 03-29-2023 14:57-0500 Diastolic blood pressure 76 mm[Hg] Chair Bath Work Phone: [facility] 03-29-2023 14:57-0500 Heart rate 72 /min Chair Bath Work Phone: [facility] 03-29-2023 14:57-0500 Respiratory rate 18 /min Chair Bath Work Phone: [facility] 03-29-2023 14:57-0500 SaO2% (BldA) [Mass fraction] 96 % Chair Bath Work Phone: [facility] 03-29-2023 14:57-0500 Systolic blood pressure 175 mm[Hg] Chair Bath Work Phone: [facility] 03-05-2023 14:02-0500 Body height 177.8 cm Vicenta Lai Work Phone: [facility] 03-05-2023 14:02-0500 Body mass index (BMI) [Ratio] 30.85 kg/m2 Vicenta Noriega MD Work Phone: [facility] 03-05-2023 14:02-0500 Body temperature 98.4 [degF] Vicenta Lai Work Phone: [facility] 03-05-2023 14:02-0500 Body weight 97.52 kg Vicenta Lai Work Phone: [facility] 03-05-2023 14:02-0500 Diastolic blood pressure 72 mm[Hg] Vicenta Noriega MD Work Phone: [facility] Comment on above: right arm 03-05-2023 14:02-0500 Heart rate 70 /min Vicenta Lai Work Phone: [facility] 03-05-2023 14:02-0500 SaO2% (BldA) [Mass fraction] 97 % Vicenta Noriega MD Work Phone: [facility] 03-05-2023 14:02-0500 Systolic blood pressure 162 mm[Hg] Vicenta Noriega MD Work Phone: [facility] Comment on above: right arm 12-11-2022 14:58-0400 Body height 177.8 cm Vicenta Lai Work Phone: [facility] 12-11-2022 14:58-0400 Body mass index (BMI) [Ratio] 30.85 kg/m2 Vicenta Noriega MD Work Phone: [facility] 12-11-2022 14:58-0400 Body temperature 97.7 [degF] Vicenta Lai Work Phone: [facility] 12-11-2022 14:58-0400 Body weight 97.52 kg Vicenta Lai Work Phone: [facility] 12-11-2022 14:58-0400 Diastolic blood pressure 65 mm[Hg] Vicenta Noriega MD Work Phone: [facility] Comment on above: left arm 12-11-2022 14:58-0400 Heart rate 89 /min Vicenta Lai Work Phone: [facility] 12-11-2022 14:58-0400 SaO2% (BldA) [Mass fraction] 99 % Vicenta Noriega MD Work Phone: [facility] 12-11-2022 14:58-0400 Systolic blood pressure 162 mm[Hg] Vicenta Noriega MD Work Phone: [facility] Comment on above: left arm 11-29-2022 15:38-0400 Body temperature 98.01 [degF] Treatment 2 [facility] 11-29-2022 15:38-0400 Diastolic blood pressure 68 mm[Hg] Treatment 2 [facility] 11-29-2022 15:38-0400 Heart rate 65 /min Treatment 2 [facility] 11-29-2022 15:38-0400 Respiratory rate 18 /min Treatment 2 [facility] 11-29-2022 15:38-0400 Systolic blood pressure 179 mm[Hg] Treatment 2 [facility] 11-29-2022 13:50-0400 SaO2% (BldA) [Mass fraction] 98 % Treatment 2 [facility] 11-16-2022 14:42-0400 Body height 177.8 cm Vicenta Lai Work Phone: [facility] 11-16-2022 14:42-0400 Body mass index (BMI) [Ratio] 30.13 kg/m2 Vicenta Noriega MD Work Phone: [facility] 11-16-2022 14:42-0400 Body weight 95.25 kg Vicenta Lai Work Phone: [facility] 11-16-2022 14:42-0400 Diastolic blood pressure 76 mm[Hg] Vicenta Noriega MD Work Phone: [facility] 11-16-2022 14:42-0400 Heart rate 72 /min Vicenta Lai Work Phone: [facility] 11-16-2022 14:42-0400 SaO2% (BldA) [Mass fraction] 96 % Vicenta Noriega MD Work Phone: [facility] 11-16-2022 14:42-0400 Systolic blood pressure 152 mm[Hg] Vicenta Noriega MD Work Phone: [facility] 10-31-2022 15:35-0400 Body temperature 98.01 [degF] Treatment 3 [facility] 10-31-2022 15:35-0400 Diastolic blood pressure 66 mm[Hg] Treatment 3 [facility] 10-31-2022 15:35-0400 Heart rate 61 /min Treatment 3 [facility] 10-31-2022 15:35-0400 Respiratory rate 16 /min Treatment 3 [facility] 10-31-2022 15:35-0400 SaO2% (BldA) [Mass fraction] 97 % Treatment 3 [facility] 10-31-2022 15:35-0400 Systolic blood pressure 146 mm[Hg] Treatment 3 [facility] 10-11-2022 14:11-0400 Body height 176.5 cm Vicenta Lai Work Phone: [facility] 10-11-2022 14:11-0400 Body mass index (BMI) [Ratio] 30.57 kg/m2 Vicenta Noriega MD Work Phone: [facility] 10-11-2022 14:11-0400 Body temperature 98.1 [degF] Vicenta Lai Work Phone: [facility] 10-11-2022 14:11-0400 Body weight 95.25 kg Vicenta Lai Work Phone: [facility] 10-11-2022 14:11-0400 Diastolic blood pressure 73 mm[Hg] Vicenta Noriega MD Work Phone: [facility] Comment on above: right arm 10-11-2022 14:11-0400 Heart rate 72 /min Vicenta Lai Work Phone: [facility] 10-11-2022 14:11-0400 SaO2% (BldA) [Mass fraction] 98 % Vicenta Noriega MD Work Phone: [facility] 10-11-2022 14:11-0400 Systolic blood pressure 158 mm[Hg] Vicenta Noriega MD Work Phone: [facility] Comment on above: right arm 09-12-2022 15:30-0400 Body temperature 98.1 [degF] Chair Bath Work Phone: [facility] 09-12-2022 15:30-0400 Diastolic blood pressure 72 mm[Hg] Chair Bath Work Phone: [facility] 09-12-2022 15:30-0400 Heart rate 70 /min Chair Bath Work Phone: [facility] 09-12-2022 15:30-0400 Respiratory rate 16 /min Chair Bath Work Phone: [facility] 09-12-2022 15:30-0400 Systolic blood pressure 126 mm[Hg] Chair Bath Work Phone: [facility] 09-11-2022 13:57-0400 Body height 176.5 cm Owen Whitleyim DIRECTOR STARS[employer]MED[employer] RECORD LIBRARIAN Work Phone: [facility] 09-11-2022 13:57-0400 Body weight 95.25 kg Owen Ac DIRECTOR STARS.MEDICAL RECORD LIBRARIAN Work Phone: [facility] 09-11-2022 13:57-0400 Diastolic blood pressure 65 mm[Hg] Owen Yashira DIRECTOR ST[employer].MEDICAL RECORD LIBRARIAN Work Phone: [facility] 09-11-2022 13:57-0400 Heart rate 70 /min Owen Whitleyim DIRECTOR ST[employer].MEDICAL RECORD LIBRARIAN Work Phone: [facility] 09-11-2022 13:57-0400 SaO2% (BldA) [Mass fraction] 99 % Owen Whitleyim DIRECTOR ST[employer].MEDICAL RECORD LIBRARIAN Work Phone: [facility] 09-11-2022 13:57-0400 Systolic blood pressure 130 mm[Hg] Owen Yashira DIRECTOR ST[employer]MEDICAL RECORD LIBRARIAN Work Phone: [facility] 07-31-2022 14:04-0400 Body height 176.[address] German Robertson Work Phone: [facility] 07-31-2022 14:04-0400 Body mass index (BMI) [Ratio] 30.9 kg/m2 Dr. German Robertson Work Phone: [facility] 07-31-2022 14:04-0400 Body temperature 98.4 [degF] Dr. German Robertson Work Phone: [facility] 07-31-2022 14:04-0400 Body weight 96.[address] German Robertson Work Phone: [facility] 07-31-2022 14:04-0400 Diastolic blood pressure 78 mm[Hg] Dr. German Robertson Work Phone: [facility] 07-31-2022 14:04-0400 Heart rate 68 /min Dr. German Robertson Work Phone: [facility] 07-31-2022 14:04-0400 Respiratory rate 16 /min Dr. German Robertson Work Phone: [facility] 07-31-2022 14:04-0400 SaO2% (BldA) [Mass fraction] 96 % Dr. German Robertson Work Phone: [facility] 07-31-2022 14:04-0400 Systolic blood pressure 160 mm[Hg] Dr. German Robertson Work Phone: [facility] 07-03-2022 15:23-0400 Body height 176.5 cm Vicenta Lai Work Phone: [facility] 07-03-2022 15:23-0400 Body mass index (BMI) [Ratio] 31 kg/m2 Vicenta Noriega MD Work Phone: [facility] 07-03-2022 15:23-0400 Body temperature 99.1 [degF] Vicenta Lai Work Phone: [facility] 07-03-2022 15:23-0400 Body weight 96.62 kg Vicenta Lai Work Phone: [facility] 07-03-2022 15:23-0400 Diastolic blood pressure 63 mm[Hg] Vicenta Noriega MD Work Phone: [facility] Comment on above: rt arm 07-03-2022 15:23-0400 Heart rate 82 /min Vicenta Lai Work Phone: [facility] 07-03-2022 15:23-0400 SaO2% (BldA) [Mass fraction] 97 % Vicenta Noriega MD Work Phone: [facility] 07-03-2022 15:23-0400 Systolic blood pressure 137 mm[Hg] iVcenta Noriega MD Work Phone: [facility] Comment on above: rt arm 06-01-2022 12:00-0400 Diastolic blood pressure 60 mm[Hg] Teddy Terrazas MD Work Phone: [facility] 06-01-2022 12:00-0400 SaO2% (BldA) [Mass fraction] 93 % Teddy Terrazas MD Work Phone: [facility] 06-01-2022 12:00-0400 Systolic blood pressure 125 mm[Hg] Teddy Terrazas MD Work Phone: [facility] 06-01-2022 10:50-0400 Heart rate 63 /min Teddy Terrazas MD Work Phone: [facility] 06-01-2022 10:50-0400 Respiratory rate 18 /min Teddy Terrazas MD Work Phone: [facility] 04-13-2022 13:59-0500 Body height 176.[address] German Robertson Work Phone: [facility] 04-13-2022 13:59-0500 Body mass index (BMI) [Ratio] 31.3 kg/m2 Dr. German Robertson Work Phone: [facility] 04-13-2022 13:59-0500 Body temperature 97.3 [degF] Dr. German Robertson Work Phone: [facility] 04-13-2022 13:59-0500 Body weight 97.[address] German Robertson Work Phone: [facility] 04-13-2022 13:59-0500 Diastolic blood pressure 69 mm[Hg] Dr. German Robertson Work Phone: [facility] 04-13-2022 13:59-0500 Heart rate 68 /min Dr. German Robertson Work Phone: [facility] 04-13-2022 13:59-0500 Respiratory rate 18 /min Dr. German Robertson Work Phone: [facility] 04-13-2022 13:59-0500 SaO2% (BldA) [Mass fraction] 96 % Dr. German Robertson Work Phone: [facility] 04-13-2022 13:59-0500 Systolic blood pressure 155 mm[Hg] Dr. German Robertson Work Phone: [facility] 09-07-2021 07:17-0400 Body temperature 98.4 [degF] Dr. German Robertson Work Phone: [facility] Work Phone: 09-07-2021 07:17-0400 Diastolic blood pressure 75 mm[Hg] Dr. German Robertson Work Phone: [facility] Work Phone: 09-07-2021 07:17-0400 Heart rate 67 /min Dr. German Robertson Work Phone: [facility] Work Phone: 09-07-2021 07:17-0400 Respiratory rate 16 /min Dr. German Robertson Work Phone: [facility] Work Phone: 09-07-2021 07:17-0400 SaO2% (BldA) [Mass fraction] 95 % Dr. German Robertson Work Phone: [facility] Work Phone: 09-07-2021 07:17-0400 Systolic blood pressure 150 mm[Hg] Dr. German Robertson Work Phone: [facility] Work Phone: 09-07-2021 05:56-0400 Body height 176.[address] German Robertson Work Phone: [facility] Work Phone: 09-07-2021 05:56-0400 Body mass index (BMI) [Ratio] 30.8 kg/m2 Dr. German Robertson Work Phone: [facility] Work Phone: 09-07-2021 05:56-0400 Body weight 96.[address] German Robertson Work Phone: [facility] Work Phone: Encounters Encounter Date Encounter Type Care Provider Facility Start: 01-04-2025 Evaluation and management of inpatient CHELLE REYES Facility:[facility] Start: 01-04-2025 End: 01-04-2025 [facility] Comment on above: Other (ED calling fo r physician ) Start: 01-01-2025 Emergency department patient visit GERMAN ROBERTSON Facility:[facility] Start: 01-01-2025 ambulatory GERMAN ROBERTSON Facility:[facility] Start: 01-01-2025 End: 01-01-2025 ambulatory ANNIE FRANK Facility:[facility] Start: 12-30-2024 End: 12-30-2024 ambulatory GERMAN ROBERTSON [facility] Start: 12-23-2024 End: 12-23-2024 ambulatory GERMAN ROBERTSON Facility[facility] Start: 12-19-2024 End: 12-21-2024 ambulatory TINA NINA Facility:[facility] Start: 12-17-2024 End: 12-17-2024 ambulatory GERMAN ROBERTSON Facility:[facility] Start: 12-16-2024 End: 12-16-2024 ambulatory GERMAN ROBERTSON Facility:[facility] Start: 12-15-2024 End: 12-15-2024 ambulatory GERMAN ROBERTSON Facility:[facility] Start: 12-10-2024 End: 12-10-2024 ambulatory GERMAN ROBERTSON Facility:[facility] Start: 12-09-2024 End: 12-09-2024 ambulatory GERMAN ROBERTSON Facility:[facility] Start: 12-08-2024 End: 12-08-2024 ambulatory GERMAN ROBERTSON Facility:[facility] Start: 12-02-2024 End: 12-02-2024 ambulatory GERMAN ROBERTSON Facility:[facility] Start: 12-01-2024 End: 12-01-2024 ambulatory GERMAN ROBERTSON Facility:[facility] Start: 11-26-2024 End: 11-26-2024 ambulatory GERMAN ROBERTSON Facility:[facility] Start: 11-25-2024 End: 11-25-2024 ambulatory GERMAN ROBERTSON Facility:[facility] Start: 11-18-2024 End: 11-18-2024 ambulatory GERMAN ROBERTSON Facility[facility] Start: 11-17-2024 End: 11-17-2024 ambulatory GERMAN ROBERTSON Facility:[facility] Start: 11-13-2024 End: 11-16-2024 ambulatory ANNIE FRANK Facility:[facility] Start: 11-11-2024 End: 11-11-2024 ambulatory VICENTA NORIEGA [facility] Start: 11-10-2024 End: 11-10-2024 ambulatory GERMAN ROBERTSON Facility:[facility] Start: 11-06-2024 End: 11-06-2024 ambulatory Maude Aguilar [facility] Start: 11-06-2024 End: 11-06-2024 Patient encounter procedure Maude Aguilar [facility] Comment on above: SPP Oral Oncology/he matology - Treatment Referral (Deferasirox 360mg ); Insurance Authorization (Pending [place]) Start: 11-04-2024 End: 11-04-[address] [facility] Comment on above: Anemia, unspecified type (Primary Dx); Myelodysplastic syndrome, unspecified (HCC) Start: 11-04-2024 End: 11-04-2024 ambulatory GERMAN ROBERTSON Facility[facility] Start: 11-03-2024 End: 11-03-2024 ambulatory GERMAN ROBERTSON Facility:[facility] Start: 10-28-2024 End: 10-28-2024 ambulatory Treatment Room [facility] Comment on above: Myelodysplastic synd aric, unspecified (HCC) (Primary Dx) Start: 10-27-2024 End: 10-27-2024 ambulatory GERMAN ROBERTSON Facility:[facility] Start: 10-21-2024 End: 10-21-2024 ambulatory Treatment [facility] Comment on above: Anemia, unspecified type (Primary Dx); Myelodysplastic syndrome, unspecified (HCC) Start: 10-19-2024 End: 10-19-2024 ambulatory GERMAN ROBERTSON Facility:[facility] Start: 10-15-2024 End: 10-15-[address] German Robertson MD Work Phone: [facility] Start: 10-15-2024 End: 10-15-[address] Guicho Cordova MD [facility] Work Phone: Start: 10-14-2024 End: 10-15-2024 ambulatory Treatment Room [facility] Comment on above: Myelodysplastic synd aric, unspecified (HCC) (Primary Dx) Start: 10-13-2024 End: 10-13-2024 ambulatory GERMAN ROBERTSON Facility:[facility] Start: 10-08-2024 End: 10-08-2024 ambulatory Treatment Room [facility] Comment on above: Anemia, unspecified type (Primary Dx); Myelodysplastic syndrome, unspecified (HCC) Start: 10-07-2024 End: 10-07-2024 Patient encounter procedure Vicenta Noriega MD Work Phone: [facility] Hematology/Oncology Start: 10-07-2024 End: 10-07-2024 ambulatory Chair 4 [facility]On[facility] Comment on above: Myelodysplastic synd aric, unspecified (HCC) (Primary Dx) Myelodysplastic synd aric, unspecified (HCC) (Primary Dx); Anemia, unspecified type; Clonal cytopenia of undetermined significance (CCUS) Start: 10-06-2024 End: 10-06-2024 ambulatory GERMAN ROBERTSON Facility:[facility] Start: 09-30-2024 End: 09-30-2024 ambulatory GERMAN ROBERTSON Facility:[facility] Start: 09-29-2024 End: 10-06-2024 Orders Only Vicenta Noriega MD Work Phone: [facility] Hematology/Oncology Comment on above: Myelodysplastic synd aric, unspecified (HCC) (Primary Dx); Anemia, unspecified type Start: 09-24-2024 End: 09-24-2024 ambulatory [facility] Comment on above: Anemia, unspecified type (Primary Dx); Myelodysplastic syndrome, unspecified (HCC) Start: 09-23-2024 End: 09-23-2024 Chart abstracting Selma Ravi Research Coordinator Hematology/Oncology Comment on above: Research (IRB [id number] I nformed Consent) Start: 09-23-2024 End: 09-23-2024 ambulatory Annie Frank MD Work Phone: Hematology/Oncology Comment on above: Myelodysplastic synd aric, unspecified (HCC) (Primary Dx); Anemia, unspecified type; Vitamin D deficiency, unspecified; MDS (myelodysplastic syndrome) (HCC) Start: 09-23-2024 End: 09-23-2024 Patient encounter procedure Annie Frank MD Work Phone: Hematology/Oncology Start: 09-22-2024 End: 09-22-2024 ambulatory GERMAN ROBERTSON Facility:[facility] Start: 09-16-2024 End: 09-16-2024 ambulatory Treatment [facility] Comment on above: Myelodysplastic synd aric, unspecified (HCC) (Primary Dx) Start: 09-15-2024 End: 09-15-2024 ambulatory GERMAN ROBERTSON Facility:[facility] Start: 09-09-2024 End: 09-09-2024 ambulatory Vicenta Noriega MD Work Phone: [facility] Hematology/Oncology Comment on above: Myelodysplastic synd aric, unspecified (HCC) (Primary Dx); Clonal cytopenia of undetermined significance (CCUS); Anemia, unspecified type Start: 09-09-2024 End: 09-09-2024 Patient encounter procedure Vicenta Noriega MD Work Phone: [facility] Hematology/Oncology Start: 09-09-2024 End: 09-09-2024 ambulatory Chair 2 Nila Sheppard Hematology/Oncology Comment on above: Anemia, unspecified type (Primary Dx); Myelodysplastic syndrome, unspecified (HCC) Start: 09-08-2024 End: 09-08-2024 ambulatory GERMAN ROBERTSON Facility:[facility] Start: 09-02-2024 End: 09-02-2024 ambulatory Treatment [facility] Comment on above: Anemia, unspecified type (Primary Dx); Myelodysplastic syndrome, unspecified (HCC) Start: 09-01-2024 End: 09-01-2024 ambulatory GERMAN ROBERTSON Facility:[facility] Start: 08-26-2024 End: 08-26-2024 ambulatory Treatment [facility] Comment on above: Myelodysplastic synd aric, unspecified (HCC) (Primary Dx) Start: 08-25-2024 End: 08-25-2024 ambulatory GERMAN ROBERTSON Facility:[facility] Start: 08-19-2024 End: 08-19-2024 ambulatory Treatment [facility] Comment on above: Myelodysplastic synd aric, unspecified (HCC) (Primary Dx); Anemia, unspecified type Start: 08-18-2024 End: 08-18-2024 ambulatory Gill Andrea RN [facility] Comment on above: Anemia, unspecified type (Primary Dx); Myelodysplastic syndrome, unspecified (HCC) Start: 08-12-2024 End: 08-12-2024 ambulatory Treatment [facility] Comment on above: Anemia, unspecified type (Primary Dx); Myelodysplastic syndrome, unspecified (HCC) Start: 08-11-2024 End: 08-11-2024 Office outpatient visit 40 minutes Sabas You MD Work Phone: [facility] Comment on above: MDS (myelodysplastic syndrome) (HCC) (Primary Dx) Start: 08-11-2024 End: 08-11-2024 ambulatory [facility] Start: 08-11-2024 End: 08-11-2024 [facility] Start: 08-09-2024 End: 08-09-[address] German Robertson MD Work Phone: [facility] Work Phone: Start: 08-09-2024 End: 08-09-[address] German Robertson MD -Radiology [facility] Work Phone: Start: 08-09-2024 End: 08-09-2024 ambulatory German Robertson Facility:[facility] Start: 08-05-2024 End: 08-06-2024 Telephone encounter Vicenta Noriega MD Work Phone: [facility] Hematology/Oncology Start: 08-05-2024 End: 08-05-2024 Patient encounter procedure Vicenta Noriega MD Work Phone: [facility] Hematology/Oncology Start: 08-05-2024 End: 08-05-2024 ambulatory Vicenta Noriega MD Work Phone: [facility] Hematology/Oncology Comment on above: Myelodysplastic synd aric, unspecified (HCC) (Primary Dx); Clonal cytopenia of undetermined significance (CCUS); Anemia, unspecified type; Platelets decreased Start: 08-04-2024 End: 08-04-2024 ambulatory GERMAN ROBERTSON Facility:[facility] Start: 07-29-2024 End: 07-29-2024 ambulatory Treatment [facility] Comment on above: Anemia, unspecified type (Primary Dx); Myelodysplastic syndrome, unspecified (HCC) Start: 07-28-2024 End: 07-28-2024 ambulatory GERMAN ROBERTSON Facility:[facility] Start: 07-27-2024 End: 07-27-2024 Telephone encounter Fiorella Murdock MA [facility] Comment on above: Labs Only Start: 07-24-2024 End: 07-24-2024 Office outpatient new 60 minutes Sabas You MD Work Phone: [facility] Comment on above: MDS (myelodysplastic syndrome) (HCC) (Primary Dx) Start: 07-24-2024 End: 07-24-2024 ambulatory GERMAN ROBERTSON [facility] Start: 07-23-2024 End: 07-23-2024 ambulatory GERMAN ROBERTSON Facility:[facility] Start: 07-21-2024 ambulatory GERMAN ROBERTSON Facility:[facility] Start: 07-21-2024 End: 07-21-2024 Subsequent hospital visit by physician Miguelangel Magana MD Work Phone: [facility] Comment on above: Myelodysplastic synd aric, unspecified (HCC) [D46.9] Start: 07-17-2024 End: 07-17-2024 [facility] Start: 07-16-2024 End: 07-16-2024 ambulatory GERMAN ROBERTSON Facility:[facility] Start: 07-15-2024 End: 07-15-2024 ambulatory TRACY FARFAN Facility:[facility] Start: 07-14-2024 ambulatory Maurisio Londono Facility:[facility] Start: 07-09-2024 End: 07-09-2024 [facility] Start: 07-03-2024 End: 07-03-2024 ambulatory Treatment [facility] Comment on above: Anemia, unspecified type (Primary Dx); Myelodysplastic syndrome, unspecified (HCC) Start: 07-02-2024 End: 07-02-2024 Emergency department patient visit KIRTI NIEVES Facility:[facility] Start: 06-30-2024 End: 06-30-2024 ambulatory [facility] Start: 06-30-2024 End: 06-30-2024 Patient encounter procedure Vicenta Noriega MD Work Phone: [facility] Hematology/Oncology Start: 06-30-2024 End: 06-30-[address] 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); Myelodysplastic syndrome, unspecified (HCC); Clonal cytopenia of undetermined significance (CCUS); Anemia, unspecified type Myelodysplastic synd aric, unspecified (HCC) (Primary Dx); Clonal cytopenia of undetermined significance (CCUS); Anemia, unspecified type Start: 06-20-2024 End: 06-20-2024 [facility]ulatory [facility] Start: 06-20-2024 End: 06-20-2024 Patient encounter procedure Jim Russell Clinical Communication Start: 06-09-2024 End: 06-19-2024 Evaluation and management of inpatient BRYCE A PHYLICIAUESTAD Facility:[facility] Start: 06-06-2024 End: 06-09-2024 ambulatory [facility] Facility:[facility] Start: 06-03-2024 End: 06-05-2024 ambulatory [facility] Facility:[facility] Start: 06-02-2024 End: 06-02-2024 ambulatory Chair 4 [facility] Hematology/Oncology Comment on above: Myelodysplastic synd aric, unspecified (HCC) (Primary Dx); Clonal cytopenia of undetermined significance (CCUS) Start: 05-26-2024 End: 05-26-2024 ambulatory [facility] Comment on above: Anemia, unspecified type (Primary Dx); Myelodysplastic syndrome, unspecified (HCC); Cancer of unknown origin (HCC) Start: 05-25-2024 End: 05-25-2024 ambulatory GERMAN ROBERTSON Facility:[facility] Start: 05-20-2024 End: 05-20-2024 ambulatory Gill Andrea RN [facility] Start: 05-06-2024 End: 05-06-2024 ambulatory Treatment [facility] Comment on above: Anemia, unspecified type (Primary Dx); Myelodysplastic syndrome, unspecified (HCC) Start: 05-05-2024 End: 05-05-2024 ambulatory Owen Ac APRN.MEDICAL RECORD LIBRARIAN Work Phone: [facility] Hematology/Oncology Comment on above: Myelodysplastic synd aric, unspecified (HCC) (Primary Dx) Start: 05-05-2024 End: 05-05-2024 Patient encounter procedure Owen Ac APRN.CNP Work Phone: [facility] Hematology/Oncology Start: 05-05-2024 End: 05-05-2024 ambulatory Chair 8 [facility] Hematology/Oncology Comment on above: Myelodysplastic synd aric, unspecified (HCC) (Primary Dx); Anemia, unspecified type; Cancer of unknown origin (HCC) Start: 04-27-2024 End: 04-27-2024 [facility] Facility:[facility] Start: 04-16-2024 End: 04-16-2024 ambulatory Treatment [facility] Comment on above: Anemia, unspecified type (Primary Dx); Myelodysplastic syndrome, unspecified (HCC) Start: 04-15-2024 End: 04-15-2024 Telephone encounter Vicenta Noriega MD Work Phone: [facility] Hematology/Oncology Start: 04-15-2024 End: 04-15-2024 ambulatory [facility] 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); Myelodysplastic syndrome, unspecified (HCC) Start: 04-07-2024 End: 04-07-2024 Patient encounter procedure Vicenta Noriega MD Work Phone: [facility] Hematology/Oncology Start: 04-07-2024 End: 04-07-2024 ambulatory Chair 9 Nila Phelps Hematology/Oncology Comment on above: Myelodysplastic synd aric, unspecified (HCC) (Primary Dx) Myelodysplastic synd aric, unspecified (HCC) (Primary Dx); Clonal cytopenia of undetermined significance (CCUS); Platelets decreased (HCC); Anemia, unspecified type Start: 03-25-2024 End: 03-25-2024 ambulatory Treatment [facility] Comment on above: Anemia, unspecified type (Primary Dx); Myelodysplastic syndrome, unspecified (HCC) Start: 03-24-2024 End: 03-24-2024 Patient encounter procedure Vicenta Noriega MD Work Phone: [facility] Hematology/Oncology Start: 03-24-2024 End: 03-24-2024 ambulatory Chair 1 [facility] Hematology/Oncology Comment on above: 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); Myelodysplastic syndrome, unspecified (HCC); Anemia, unspecified type Myelodysplastic synd aric, unspecified (HCC) (Primary Dx); Clonal cytopenia of undetermined significance (CCUS); Platelets decreased (HCC); Anemia, unspecified type Start: 03-13-2024 End: 03-13-2024 Patient encounter procedure Vicenta Noriega MD Work Phone: [facility] Hematology/Oncology Start: 03-13-2024 End: 03-13-2024 ambulatory Vicenta Noriega MD Work Phone: [facility] Hematology/Oncology Comment on above: Myelodysplastic synd aric, unspecified (HCC) (Primary Dx); Clonal cytopenia of undetermined significance (CCUS); Platelets decreased (HCC); Anemia, unspecified type Start: 03-11-2024 End: 03-11-2024 ambulatory GERMAN ROBERTSON Facility:[facility] Start: 03-09-2024 End: 03-09-2024 Telephone encounter Vicenta Noriega MD Work Phone: [facility] Hematology/Oncology Comment on above: Scheduling Start: 03-05-2024 End: 03-06-2024 ambulatory THOMAS MARÍA [facility] Start: 02-12-2024 End: 02-12-2024 ambulatory Treatment [facility] Comment on above: Anemia, unspecified type (Primary Dx); Myelodysplastic syndrome, unspecified (HCC) Start: 02-11-2024 End: 02-11-2024 Orders Only Vicenta Noriega MD Work Phone: [facility] Hematology/Oncology Start: 02-07-2024 End: 02-07-2024 ambulatory Chair 8 [facility] Hematology/Oncology Comment on above: Myelodysplastic synd aric, unspecified (HCC) (Primary Dx); Anemia, unspecified type Start: 01-30-2024 End: 01-30-2024 ambulatory Treatment [facility] Comment on above: Anemia, unspecified type (Primary Dx); Myelodysplastic syndrome, unspecified (HCC) Start: 01-28-2024 End: 01-28-2024 ambulatory GERMAN ROBERTSON [facility] Start: 01-10-2024 End: 01-10-2024 Patient encounter procedure Garry Trino [facility] Hematology/Oncology Comment on above: Myelodysplastic synd aric, unspecified (HCC) (Primary Dx) Start: 01-10-2024 End: 01-10-2024 ambulatory Chair 4 [facility] Hematology/Oncology Comment on above: Myelodysplastic synd aric, unspecified (HCC) (Primary Dx) Start: 12-31-2023 End: 12-31-2023 ambulatory Maurisio Londono Facility:[facility] Start: 12-31-2023 End: 12-31-2023 ambulatory Chair 5 [facility] Hematology/Oncology Comment on above: Myelodysplastic synd aric, unspecified (HCC) (Primary Dx); Cancer of unknown origin (HCC) Myelodysplastic synd aric, unspecified (HCC) (Primary Dx); Clonal cytopenia of undetermined significance (CCUS); Anemia, unspecified type Start: 12-31-2023 End: 12-31-2023 Patient encounter procedure Vicenta Noriega MD Work Phone: [facility] Hematology/Oncology Start: 12-24-2023 End: 12-24-2023 Orders Only Owen Ac APRN.MEDICAL RECORD LIBRARIAN Work Phone: [facility] Hematology/Oncology Comment on above: Myelodysplastic synd aric, unspecified (HCC) (Primary Dx) Start: 12-11-2023 End: 12-11-2023 ambulatory Treatment [facility] Comment on above: 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); Myelodysplastic syndrome, unspecified (HCC) Start: 11-28-2023 End: 11-28-2023 ambulatory Vicenta Noriega MD Work Phone: [facility] Hematology/Oncology Comment on above: Myelodysplastic synd aric, unspecified (HCC) (Primary Dx); Clonal cytopenia of undetermined significance (CCUS); Anemia, unspecified type; Platelets decreased (HCC) Start: 11-28-2023 End: 11-28-2023 Patient encounter procedure Vicenta Noriega MD Work Phone: [facility] Hematology/Oncology Start: 11-20-2023 End: 11-20-2023 ambulatory Treatment [facility] Comment on above: Anemia, unspecified type (Primary Dx); Myelodysplastic syndrome, unspecified (HCC) Start: 11-19-2023 End: 11-19-2023 ambulatory Treatment [facility] Comment on above: 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); Myelodysplastic syndrome, unspecified (HCC); Clonal cytopenia of undetermined significance (CCUS) Start: 11-07-2023 End: 11-07-2023 Telephone encounter Vicenta Noriega MD Work Phone: [facility] Comment on above: Patient Update Start: 10-29-2023 End: 10-29-2023 ambulatory Treatment [facility] Comment on above: 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); Myelodysplastic syndrome, unspecified (HCC); Clonal cytopenia of undetermined significance (CCUS) Start: 10-08-2023 End: 10-08-2023 ambulatory Treatment [facility] Comment on above: 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); Myelodysplastic syndrome, unspecified (HCC) Start: 10-03-2023 End: 10-03-2023 ambulatory Vicenta Noriega MD Work Phone: [facility] Hematology/Oncology Comment on above: Myelodysplastic synd aric, unspecified (HCC) (Primary Dx); Clonal cytopenia of undetermined significance (CCUS) Start: 10-03-2023 End: 10-03-2023 Patient encounter procedure Vicenta Noriega MD Work Phone: [facility] Hematology/Oncology Start: 09-19-2023 End: 09-19-2023 Patient encounter procedure Rowena Guerra APRN.CNP Work Phone: Neurology Comment on above: TIA (transient ische lula attack) (Primary Dx); Wenckebach; SVT (supraventricular tachycardia) (HCC) Start: 09-18-2023 End: 09-18-2023 ambulatory Treatment [facility] Comment on above: Anemia, unspecified type (Primary Dx); Myelodysplastic syndrome, unspecified (HCC) Start: 09-13-2023 End: 09-13-2023 ambulatory Treatment [facility] Comment on above: 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); Myelodysplastic syndrome, unspecified (HCC); Anemia, unspecified type Start: 09-13-2023 Telephone encounter Vicenta Lopez MD Work Phone: [facility] Comment on above: Patient Update Start: 08-23-2023 End: 08-23-2023 ambulatory Treatment [facility] Comment on above: 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); Myelodysplastic syndrome, unspecified (HCC); Anemia, unspecified type Start: 08-23-2023 Telephone encounter Vicenta Lopez MD Work Phone: [facility] Comment on above: Patient Question Start: 08-02-2023 End: 08-02-2023 ambulatory [facility] Comment on above: 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); Myelodysplastic syndrome, unspecified (HCC); Anemia, unspecified type Start: 08-01-2023 End: 08-01-2023 ambulatory Vicenta Noriega MD Work Phone: [facility] Hematology/Oncology Comment on above: Myelodysplastic synd aric, unspecified (HCC) (Primary Dx) Start: 08-01-2023 End: 08-01-2023 Patient encounter procedure Vicenta Noriega MD Work Phone: [facility] Hematology/Oncology Start: 07-12-2023 Telephone encounter Vicenta Lopez MD Work Phone: [facility] Comment on above: Patient Update; Resu lts Start: 07-12-2023 End: 07-12-2023 ambulatory Treatment [facility] Comment on above: 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); Anemia, unspecified type Start: 06-28-2023 End: 06-28-2023 Patient encounter procedure Rowena Guerra APRN.CNP Work Phone: Neurology Comment on above: TIA (transient ische lula attack) (Primary Dx) Start: 06-21-2023 End: 06-21-2023 ambulatory Treatment [facility] Comment on above: 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) Start: 06-08-2023 End: 06-10-2023 ambulatory GERMAN ROBERTSON Facility:[facility] Start: 06-03-2023 End: 06-03-2023 ambulatory Vicenta Noriega MD Work Phone: [facility] Hematology/Oncology Comment on above: Myelodysplastic synd aric, unspecified (HCC) (Primary Dx); Anemia, unspecified type; Platelets decreased (HCC) Start: 06-03-2023 End: 06-03-2023 Patient encounter procedure Vicenta Noriega MD Work Phone: [facility] Hematology/Oncology Start: 05-30-2023 End: 05-30-2023 ambulatory Treatment [facility] Comment on above: Anemia, unspecified type (Primary Dx); Cancer of unknown origin (HCC) Start: 05-10-2023 End: 05-10-2023 ambulatory Treatment [facility] Comment on above: Anemia, unspecified type (Primary Dx); Cancer of unknown origin (HCC) Start: 04-19-2023 End: 04-19-2023 ambulatory Treatment [facility] Comment on above: 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) Start: 04-08-2023 End: 04-08-2023 ambulatory Vicenta Noriega MD Work Phone: [facility] Hematology/Oncology Comment on above: Myelodysplastic synd aric, unspecified (HCC) (Primary Dx); Platelets decreased (HCC); Anemia, unspecified type Start: 04-08-2023 End: 04-08-2023 Patient encounter procedure Vicenta Noriega MD Work Phone: [facility] Hematology/Oncology Start: 03-29-2023 End: 03-29-2023 ambulatory Chair 5 [facility] Work Phone: Hematology/Oncology Comment on above: Anemia, unspecified type (Primary Dx); Cancer of unknown origin (HCC) Start: 03-05-2023 End: 03-05-2023 ambulatory Vicenta Noriega MD Work Phone: [facility] Hematology/Oncology Comment on above: Myelodysplastic synd aric, unspecified (HCC) (Primary Dx); Anemia, unspecified type Start: 03-05-2023 End: 03-05-2023 Patient encounter procedure Vicenta Noriega MD Work Phone: [facility] Hematology/Oncology Start: 02-12-2023 End: 11-15-2023 ambulatory Fabiola Agarwal DERMATOLOGY TECHNICIAN Comment on above: Anemia, unspecified type (Primary Dx) Start: 01-11-2023 End: 11-15-2023 ambulatory Fabiola Agarwal DERMATOLOGY TECHNICIAN Start: 01-02-2023 ambulatory Radha Kelly RN [facility] Start: 01-02-2023 Patient encounter procedure Radha Kelly RN [facility] Start: 12-29-2022 ambulatory Kanchan Banks RN [facility] Start: 12-29-2022 Patient encounter procedure Kanchan Banks RN [facility] Start: 12-11-2022 End: 12-11-2022 ambulatory Vicenta Noriega MD Work Phone: [facility] Hematology/Oncology Comment on above: Anemia, unspecified type (Primary Dx); Clonal cytopenia of undetermined significance (CCUS) Start: 12-11-2022 End: 12-11-2022 Patient encounter procedure Vicenta Noriega MD Work Phone: [facility] Hematology/Oncology Start: 11-29-2022 End: 11-29-2022 ambulatory Treatment [facility] Comment on above: Anemia, unspecified type (Primary Dx) Start: 11-16-2022 End: 11-16-2022 ambulatory Vicenta Noriega MD Work Phone: [facility] Hematology/Oncology Comment on above: Anemia, unspecified type (Primary Dx); Clonal cytopenia of undetermined significance (CCUS) Start: 11-16-2022 End: 11-16-2022 Patient encounter procedure Vicenta Noriega MD Work Phone: [facility] Hematology/Oncology Start: 10-31-2022 End: 10-31-2022 ambulatory Treatment Room [facility] Comment on above: Anemia, unspecified type (Primary Dx) Start: 10-30-2022 Telephone encounter Akosua Prieto RN Work Phone: [facility] Comment on above: Transfusion Start: 10-11-2022 End: 10-11-2022 ambulatory Vicenta Noriega MD Work Phone: [facility] Hematology/Oncology Comment on above: 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); Anemia, unspecified type; Clonal cytopenia of undetermined significance (CCUS) Start: 10-11-2022 End: 10-11-2022 Patient encounter procedure Vicenta Noriega MD Work Phone: [facility] Hematology/Oncology Start: 09-12-2022 End: 09-12-2022 ambulatory Chair 7 [facility] Work Phone: Hematology/Oncology Comment on above: Anemia, unspecified type (Primary Dx) Start: 09-11-2022 End: 09-11-2022 ambulatory Owen Ac APRN.MEDICAL RECORD LIBRARIAN Work Phone: [facility] Hematology/Oncology Comment on above: Anemia, unspecified type (Primary Dx) Start: 09-11-2022 End: 09-11-2022 Patient encounter procedure Owen Ac APRN.MEDICAL RECORD LIBRARIAN Work Phone: [facility] Start: 07-31-2022 End: 07-31-[address] German Robertson Work Phone: [facility] Endocrinology Start: 07-26-2022 End: 07-26-[address] German Robertson Work Phone: [facility] Work Phone: Start: 07-26-2022 End: 07-26-[address] German Robertson Work Phone: [facility] Start: 07-03-2022 End: 07-03-2022 ambulatory Vicenta Noriega MD Work Phone: [facility] Hematology/Oncology Comment on above: Anemia, unspecified type (Primary Dx); Clonal cytopenia of undetermined significance (CCUS); Platelets decreased (HCC) Start: 07-03-2022 End: 07-03-2022 Patient encounter procedure Vicenta Noriega MD Work Phone: [facility] Hematology/Oncology Start: 06-14-2022 Non-patient / Non-visit Dr. Clayton Baker Work Phone: [facility] Start: 06-14-2022 End: 06-14-[address] German Robertson Work Phone: [facility] Work Phone: Start: 06-14-2022 End: 06-14-[address] German Robertson Work Phone: [facility]-Cardiovascular Services Start: 06-01-2022 End: 06-01-2022 Subsequent hospital visit by physician Teddy Terrazas MD Work Phone: [facility] Comment on above: Anemia, unspecified type [D64.9] Start: 05-22-2022 End: 05-22-[address] German Robertson Work Phone: [facility] Work Phone: Start: 05-22-2022 End: 05-22-[address] German Robertson Work Phone: [facility]-Radiology, [facility] Start: 04-13-2022 End: 04-13-[address] German Robertson Work Phone: [facility] Endocrinology Start: 11-24-2021 End: 11-24-2021 Subsequent hospital visit by physician [facility] Comment on above: Liver disease, unspe cified [K76.9] Start: 09-07-2021 Non-patient / Non-visit Dr. Clayton Baker Work Phone: [facility] Start: 09-07-2021 End: 09-07-2021 Admission to same day surgery center Dr. German Robertson Work Phone: [facility]-Endoscopy Start: 07-28-2021 End: 07-28-[address] German Robertson Work Phone: [facility] Gastroenterology Start: 06-11-2017 [facility] [place] [facility] Start: 01-25-2017 Ambulatory Carlos Devoscarbh ai [place] Facility:[facility] Start: 01-02-2017 Ambulatory YO KOHLI Fac ility:[facility] Start: 11-19-2016 End: 11-20-[address] Facility:[facility] Start: 10-31-2016 End: 11-01-[address] Facility:[facility] Start: 10-22-2016 End: 10-23-[address] Facility:[facility] Start: 08-31-2016 End: 09-10-2016 Evaluation and management of inpatient NO REFERRING DR Facility:[facility] Procedures Date Procedure Procedure Detail Performing Clinician Start: 01-06-2025 Antibody screen CHELLE REYES Comment on above: Order Comment: Specimen Type: BLOOD SPEC IMENOrdering Facility: [facility] Address: [address] [place] [address] Performed By: #### T SCR ####[facility] [id number] [place] [address] [facility] Start: 12-30-2024 Antibody screen GERMAN ROBERTSON Comment on above: Order Comment: Specimen Type: BLOOD SPEC IMENOrdering Facility: [facility] Address: [address] [place] [address] Performed By: #### T SCR ####[facility] [id number] [address] Start: 12-23-2024 Antibody screen GERMAN ROBERTSON Comment on above: Order Comment: Specimen Type: BLOOD SPEC IMENOrdering Facility: [facility] Address: [address] [place] [address] Performed By: #### T SCR ####[facility]ANKCLIA [id number] [address] Start: 12-20-2024 Antibody screen GERMAN ROBERTSON Comment on above: Order Comment: Specimen Type: BLOOD SPEC IMENOrdering Facility: [facility] Address: [address] [place] [address] Performed By: #### T SCR ####[facility]ANKCL[facility] [id number] [address] Start: 12-15-2024 Antibody screen GERMAN ROBERTSON Comment on above: Order Comment: Specimen Type: BLOOD SPEC IMENOrdering Facility: [facility] Address: [address] [place] [address] Performed By: #### T SCR ####[facility]ANKCL[facility] [id number] [address] Start: 12-08-2024 Antibody screen GERMAN ROBERTSON Comment on above: Order Comment: Specimen Type: BLOOD SPEC IMENOrdering Facility: [facility] Address: [address] [place] [address] Performed By: #### T SCR ####[facility]ANKCL[facility] [id number] [address] Start: 12-01-2024 Antibody screen GERMAN ROBERTSON Comment on above: Order Comment: Specimen Type: BLOOD SPEC IMENOrdering Facility: [facility] Address: [address] [place] [address] Performed By: #### T SCR ####[facility]ANKCL[facility] [id number] [address] Start: 11-25-2024 Antibody screen GERMAN ROBERTSON Comment on above: Order Comment: Specimen Type: BLOOD SPEC IMENOrdering Facility: [facility] Address: [address] [place] [address] Performed By: #### T SCR ####[facility]CL[facility] [id number] [address] Start: 11-17-2024 Antibody screen GERMAN ROBERTSON Comment on above: Order Comment: Specimen Type: BLOOD SPEC IMENOrdering Facility: [facility] Address: [address] [place] [address] Performed By: #### T SCR ####[facility]ANKCL[facility] [id number] [address] Start: 11-11-2024 Antibody screen GERMAN ROBERTSON Comment on above: Order Comment: Specimen Type: BLOOD SPEC IMENOrdering Facility: [facility] Address: [address] [place] [address] Performed By: #### T SCR ####[facility] BLO[facility] BANKIA [id number] [address] Start: 11-04-2024 End: 11-04-2024 RBC TRANSFUSION INSTRUCTION ([place], [place]) Vicenta Noriega MD Work Phone: Start: 11-03-2024 RED BLOOD CELLS, ADULT Vicenta Noriega MD Work Phone: Start: 11-03-2024 Antibody screen GERMAN ROBERTSON Comment on above: Order Comment: Specimen Type: BLOOD SPEC IMENOrdering Facility: [facility] Address: [address] [place] [address] Performed By: #### T SCR ####[facility]ANKCL[facility] [id number] [address] Start: 10-27-2024 Antibody screen GERMAN ROBERTSON Comment on above: Order Comment: Specimen Type: BLOOD SPEC IMENOrdering Facility: [facility] Address: [address] [place] [address] Performed By: #### T SCR ####[facility] BLOOD BANKCLIA [id number] [place] [address] [facility] Start: 10-21-2024 End: 10-21-2024 RBC TRANSFUSION INSTRUCTION ([place], [place]) Vicenta Noriega MD Work Phone: Start: 10-19-2024 Antibody screen GERMAN ROBERTSON Comment on above: Order Comment: Specimen Type: BLOOD SPEC IMENOrdering Facility: [facility] Address: [address] [place] [address] Performed By: #### T SCR ####[facility] B[facility]ANKCLIA [id number] [address] Start: 10-15-2024 MRI of lumbar spine Dr. German Robertson MD Work Phone: Start: 10-13-2024 Antibody screen GERMAN ROBERTSON Comment on above: Order Comment: Specimen Type: BLOOD SPEC IMENOrdering Facility: [facility] Address: [address] [place] [address] Performed By: #### T SCR ####[facility] BLO[facility] BANKCLIA [id number] [address] Start: 10-07-2024 Antibody screen GERMAN ROBERTSON Comment on above: Order Comment: Specimen Type: BLOOD SPEC IMENOrdering Facility: [facility] Address: [address] [place] [address] Performed By: #### T SCR ####[facility] B[facility]ANKCL[facility] [id number] [address] Start: 10-06-2024 Antibody screen GERMAN ROBERTSON Comment on above: Order Comment: Specimen Type: BLOOD SPEC IMENOrdering Facility: [facility] Address: [address] [place] [address] Performed By: #### T SCR ####[facility] BLO[facility] BANKCLIA [id number] [address] Start: 09-29-2024 Antibody screen GERMAN ROBERTSON Comment on above: Order Comment: Specimen Type: BLOOD SPEC IMENOrdering Facility: [facility] Address: [address] [place] [address] Performed By: #### T SCR ####[facility] BLO[facility] BANKCLIA [id number] [address] Start: 09-24-2024 End: 09-24-2024 RBC TRANSFUSION INSTRUCTION ([place]) Vicenta Noriega MD Work Phone: Start: 09-22-2024 Antibody screen GERMAN ROBERTSON Comment on above: Order Comment: Specimen Type: BLOOD SPEC IMENOrdering Facility: [facility] Address: [address] [place] [address] Performed By: #### T SCR ####[facility] BLO[facility] BANKCLIA [id number] [address] Start: 09-15-2024 Antibody screen GERMAN ROBERTSON Comment on above: Order Comment: Specimen Type: BLOOD SPEC IMENOrdering Facility: [facility] Address: [address] [place] [address] Performed By: #### T SCR ####[facility] BLO[facility] BANKCLIA [id number] [address] Start: 09-08-2024 RED BLOOD CELLS, ADULT Vicenta Noriega MD Work Phone: Start: 09-08-2024 Antibody screen GERMAN ROBERTSON Comment on above: Order Comment: Specimen Type: BLOOD SPEC IMENOrdering Facility: [facility] Address: [address] [place] [address] Performed By: #### T SCR ####[facility] B[facility] BANKCLIA [id number] [address] Start: 09-02-2024 End: 09-02-2024 RBC TRANSFUSION INSTRUCTION ([place] Vicenta Noriega MD Work Phone: Start: 09-01-2024 Antibody screen GERMAN ROBERTSON Comment on above: Order Comment: Specimen Type: BLOOD SPEC IMENOrdering Facility: [facility] Address: [address] [place] [address] Performed By: #### T SCR ####[facility] BLO[facility] BANKCLIA [id number] [place] [address] [facility] Start: 08-25-2024 Antibody screen GERMAN ROBERTSON Comment on above: Order Comment: Specimen Type: BLOOD SPEC IMENOrdering Facility: [facility] Address: [address] [place] [address] Performed By: #### T SCR ####[facility] B[facility]ANKCLIA [id number] [address] Start: 08-19-2024 End: 08-19-2024 RBC TRANSFUSION INSTRUCTION ([place], [place]) Vicenta Noriega MD Work Phone: Start: 08-18-2024 Antibody screen GERMAN ROBERTSON Comment on above: Order Comment: Specimen Type: BLOOD SPEC IMENOrdering Facility: [facility] Address: [address] [place] [address] Performed By: #### T SCR ####[facility] B[facility]ANKCLIA [id number] [address] Start: 08-17-2024 RED BLOOD CELLS, ADULT Vicenta Noriega MD Work Phone: Start: 08-12-2024 End: 08-12-2024 RBC TRANSFUSION INSTRUCTION ([place], [place]) Vicenta Noriega MD Work Phone: Start: 08-11-2024 Antibody screen GERMAN ROBERTSON Comment on above: Order Comment: Specimen Type: BLOOD SPEC IMENOrdering Facility: [facility] Address: [address] [place] [address] Performed By: #### T SCR ####[facility] BLOOD BANKCLIA [id number] [place] [id number] [facility] Start: 08-09-2024 Plain X-ray abdomen Dr. German Robertson MD Work Phone: Start: 08-04-2024 Antibody screen GERMAN ROBERTSON Comment on above: Order Comment: Specimen Type: BLOOD SPEC IMENOrdering Facility: [facility] Address: [address] [place] [address] Performed By: #### T SCR ####[facility] BLOOD BANKCLIA [id number] [place], [place] [id number] [place] [address] Start: 07-29-2024 End: 07-29-2024 RBC TRANSFUSION INSTRUCTION ([place], [place]) Vicenta Noriega MD Work Phone: Start: 07-28-2024 Antibody screen GERMAN ROBERTSON Comment on above: Order Comment: Specimen Type: BLOOD SPEC IMENOrdering Facility: [facility] Address: [address] [place] [address] Performed By: #### T SCR ####[facility] BLO[facility]ANKCLIA [id number] [address] Start: 07-24-2024 History of cholecystectomy History of cholecystectomy Sabas Vargas MD Work Phone: Start: 07-24-2024 Comprehensive metabolic panel Sabas You MD Work Phone: Start: 07-24-2024 IMMUNOFIXATION ELECTROPHORESIS Sabas You MD Work Phone: Start: 07-24-2024 SERUM ELECTROPHORESIS Sabas You MD Work Phone: Start: 07-23-2024 Antibody screen GERMAN ROBERTSON Comment on above: Order Comment: Specimen Type: BLOOD SPEC IMENOrdering Facility: [facility] Address: [address] [place] [address] Performed By: #### T SCR ####[facility] BLO[facility] BANKCLIA [id number] [address] Start: 07-21-2024 End: 07-21-2024 Diagnostic bone marrow biopsies & aspirations [facility] Provider Start: 07-21-2024 Blood count complete auto&auto difrntl wbc Miguelangel Magana MD Work Phone: Start: 07-16-2024 Antibody screen GERMAN ROBERTSON Comment on above: Order Comment: Specimen Type: BLOOD SPEC IMENOrdering Facility: [facility] Address: [address] [place] [address] Performed By: #### T SCR ####[facility]ANKCL[facility] [id number] [address] Start: 07-09-2024 Antibody screen GERMAN ROBERTSON Comment on above: Order Comment: Specimen Type: BLOOD SPEC IMENOrdering Facility: [facility] Address: [address] [place] [address] Performed By: #### T SCR ####[facility] BLO[facility] BANKCLIA [id number] [address] Start: 07-03-2024 End: 07-03-2024 RBC TRANSFUSION INSTRUCTION ([place], [place]) Vicenta Noriega MD Work Phone: Start: 06-30-2024 Antibody screen GERMAN ROBERTSON Comment on above: Order Comment: Specimen Type: BLOOD SPEC IMENOrdering Facility: [facility] Address: [address] [place] [address] Performed By: #### T SCR ####[facility] BLO[facility] BANKCLIA [id number] [address] Start: 06-30-2024 Antibody screen rbc each serum technique Vicenta Noriega MD Work Phone: Start: 06-30-2024 Blood count complete auto&auto difrntl wbc Vicenta Noriega MD Work Phone: Start: 06-29-2024 RED BLOOD CELLS, ADULT Vicenta Noriega MD Work Phone: Start: 06-17-2024 Antibody screen GERMAN ROBERTSON Comment on above: Order Comment: Specimen Type: BLOOD SPEC IMENOrdering Facility: [facility] Address: [address] [place] [address] Performed By: #### T SCR ####[facility] BLO[facility] BANKCLIA [id number] [address] Start: 06-04-2024 Antibody screen GERMAN ROBERTSON Comment on above: Order Comment: Specimen Type: BLOOD SPEC IMENOrdering Facility: [facility] Address: [address] [place] [address] Performed By: #### T SCR ####[facility] BLO[facility] BANKCLIA [id number] [address] Start: 06-02-2024 Antibody screen GERMAN ROBERTSON Comment on above: Order Comment: Specimen Type: BLOOD SPEC IMENOrdering Facility: [facility] Address: [address] [place] [address] Performed By: #### T SCR ####[facility] BLO[facility] BANKCLIA [id number] [address] Start: 06-02-2024 Antibody screen rbc each serum technique Vicenta Noriega MD Work Phone: Start: 06-02-2024 Blood count complete auto&auto difrntl wbc Vicenta Noriega MD Work Phone: Start: 05-26-2024 End: 05-26-2024 RBC TRANSFUSION INSTRUCTION ([place], [place]) Vicenta Noriega MD Work Phone: Start: 05-26-2024 End: 05-26-2024 RBC TRANSFUSION INSTRUCTION ([place], [place]) Vicenta Noriega MD Work Phone: Start: 05-25-2024 Antibody screen GERMAN ROBERTSON Comment on above: Order Comment: Specimen Type: BLOOD SPEC IMENOrdering Facility: [facility] Address: [address] [place] [address] Performed By: #### T SCR ####[facility] BLOOD BANKCLIA [id number] [address] Start: 05-20-2024 Antibody screen GERMAN ROBERTSON Comment on above: Order Comment: Specimen Type: BLOOD SPEC IMENOrdering Facility: [facility] Address: [address] [place] [address] Performed By: #### T SCR ####[facility] BLO[facility] BANKCLIA [id number] [address] Start: 05-05-2024 Antibody screen GERMAN ROBERTSON Comment on above: Order Comment: Specimen Type: BLOOD SPEC IMENOrdering Facility: [facility] Address: [address] [place] [address] Performed By: #### T SCR ####[facility] B[facility] BANKCLIA [id number] [address] Start: 05-05-2024 Antibody screen rbc each serum technique Vicenta Noriega MD Work Phone: Start: 05-05-2024 Blood count complete auto&auto difrntl wbc Vicenta Noriega MD Work Phone: Start: 05-04-2024 RED BLOOD CELLS, ADULT Vicenta Noriega MD Work Phone: Start: 04-27-2024 Antibody screen GERMAN ROBERTSON Comment on above: Order Comment: Specimen Type: BLOOD SPEC IMENOrdering Facility: [facility] Address: [address] [place] [address] Performed By: #### T SCR ####[facility] B[facility]ANKCLIA [id number] [address] Start: 04-15-2024 Antibody screen GERMAN ROBERTSON Comment on above: Order Comment: Specimen Type: BLOOD SPEC IMENOrdering Facility: [facility] Address: [address] [place] [address] Performed By: #### T SCR ####[facility] B[facility] BANKCLIA [id number] [address] Start: 04-14-2024 Blood count complete auto&auto difrntl wbc Vicenta Noriega MD Work Phone: Start: 04-07-2024 Blood count complete auto&auto difrntl wbc Vicenta Noriega MD Work Phone: Start: 03-24-2024 End: 03-24-2024 RBC TRANSFUSION INSTRUCTION ([place], [place]) Vicenta Noriega MD Work Phone: Start: 03-24-2024 Antibody screen GERMAN ROBERTSON Comment on above: Order Comment: Specimen Type: BLOOD SPEC IMENOrdering Facility: [facility] Address: [address] [place] [address] Performed By: #### T SCR ####[facility]ANKCL[facility] [id number] [address] Start: 03-23-2024 RED BLOOD CELLS, ADULT Vicenta Noriega MD Work Phone: Start: 03-11-2024 Antibody screen GERMAN ROBERTSON Comment on above: Order Comment: Specimen Type: BLOOD SPEC IMENOrdering Facility: [facility] Address: [address] [place] [address] Performed By: #### T SCR ####[facility] B[facility] BANKCLIA [id number] [address] Start: 03-05-2024 Antibody screen GERMAN ROBERTSON Comment on above: Order Comment: Specimen Type: BLOOD SPEC IMENOrdering Facility: [facility] Address: [address] [place] [address] Performed By: #### T SCR ####[facility] B[facility] BANKCLIA [id number] [address] Start: 03-05-2024 Lily ROBERTSON Start: 02-12-2024 End: 02-12-2024 RBC TRANSFUSION INSTRUCTION ([place], [place]) Vicenta Noriega MD Work Phone: Start: 02-11-2024 Antibody screen GERMAN ROBERTSON Comment on above: Order Comment: Specimen Type: BLOOD SPEC IMENOrdering Facility: [facility] Address: [address] [place] [address] Performed By: #### T SCR ####[facility] B[facility] BANKCLIA [id number] [address] Start: 02-07-2024 End: 02-07-2024 RBC TRANSFUSION INSTRUCTION ([place], [place]) Vicenta Noriega MD Work Phone: Start: 02-07-2024 Antibody screen GERMAN ROBERTSON Comment on above: Order Comment: Specimen Type: BLOOD SPEC IMENOrdering Facility: [facility] Address: [address] [place] [address] Performed By: #### T SCR ####[facility] B[facility]ANKCL[facility] [id number] [address] Start: 02-07-2024 Antibody screen rbc each serum technique Vicenta Noriega MD Work Phone: Start: 02-07-2024 Blood count complete auto&auto difrntl wbc Vicenta Noriega MD Work Phone: Start: 02-06-2024 RED BLOOD CELLS, ADULT Vicenta Noriega MD Work Phone: Start: 01-30-2024 End: 01-30-2024 RBC TRANSFUSION INSTRUCTION ([place], [place]) Vicenta Noriega MD Work Phone: Start: 01-28-2024 Antibody screen EGRMAN ROBERTSON Comment on above: Order Comment: Specimen Type: BLOOD SPEC IMENOrdering Facility: [facility] Address: [address] [place] [address] Performed By: #### T SCR ####[facility]CL[facility] [id number] [address] Start: 01-10-2024 Antibody screen GERMAN ROBERTSON Comment on above: Order Comment: Specimen Type: BLOOD SPEC IMENOrdering Facility: [facility] Address: [address] [place] [address] Performed By: #### T SCR ####[facility] B[facility] BANKCLIA [id number] [place] [address] [place] Start: 01-10-2024 Antibody screen rbc each serum technique Vicenta Noriega MD Work Phone: Start: 01-10-2024 Bilirubin direct Owen Ac APRN.MEDICAL RECORD LIBRARIAN Work Phone: Start: 11-19-2023 Antibody screen rbc each serum technique Vicenta Noriega MD Work Phone: Start: 11-19-2023 Blood count complete auto&auto difrntl wbc Vicenta Noriega MD Work Phone: Start: 10-29-2023 Antibody screen rbc each serum technique Vicenta Noriega MD Work Phone: Start: 10-29-2023 Blood count complete auto&auto difrntl wbc Vicenta Noriega MD Work Phone: Start: 09-13-2023 Blood count complete auto&auto difrntl wbc Owen Ac DIRECTOR STARS.MEDICAL RECORD LIBRARIAN Work Phone: Start: 08-23-2023 Antibody screen rbc each serum technique Owen Ac APRN.MEDICAL RECORD LIBRARIAN Work Phone: Start: 08-23-2023 Blood count complete auto&auto difrntl wbc Owen Ac APRN.MEDICAL RECORD LIBRARIAN Work Phone: Start: 08-02-2023 Blood count complete auto&auto difrntl wbc Owen Ac APRN.MEDICAL RECORD LIBRARIAN Work Phone: Start: 07-12-2023 Antibody screen rbc each serum technique Owen Ac APRN.MEDICAL RECORD LIBRARIAN Work Phone: Start: 07-12-2023 Blood count complete auto&auto difrntl wbc Owen Ac APRN.MEDICAL RECORD LIBRARIAN Work Phone: Start: 05-30-2023 Antibody screen rbc each serum technique Owen Ac APRN.MEDICAL RECORD LIBRARIAN Work Phone: Start: 05-30-2023 Blood count complete auto&auto difrntl wbc Owen Asha Yashira DIRECTOR STARS.MEDICAL RECORD LIBRARIAN Work Phone: Start: 05-10-2023 Antibody screen rbc each serum technique Vicenta Noriega MD Work Phone: Start: 05-10-2023 Blood count complete auto&auto difrntl wbc Vicenta Noriega MD Work Phone: Start: 03-29-2023 Blood count complete auto&auto difrntl wbc Owen Asha Yashira DIRECTOR STARS.MEDICAL RECORD LIBRARIAN Work Phone: Start: 02-12-2023 Compatibility each unit electronic Vicenta Noriega MD Work Phone: Start: 11-29-2022 End: 11-29-2022 RBC TRANSFUSION INSTRUCTION ([place]) Owen Ac DIRECTOR STARS.MEDICAL RECORD LIBRARIAN Work Phone: Start: 10-30-2022 Compatibility each unit electronic Akosua Rios RN Work Phone: Start: 09-11-2022 Compatibility each unit electronic Vicenta Noriega MD Work Phone: Start: 06-14-2022 Radionuclide imaging of perfusion of myocardium under exercise stress Dr. German Robertson Work Phone: Start: 06-01-2022 Diagnostic bone marrow biopsies & aspirations Vicenta Noriega MD Work Phone: Start: 06-01-2022 FLOW CYTOMETRY BONE MARROW HOLD (BMHOLD) Vicenta Noriega MD Work Phone: Start: 06-01-2022 Blood [...] Treatment Date Care Activity Detail Author Start: 01-04-2026 Diabetes: Estimated Glomerular Filtration Rate for [facility] Diabetes: Estimated Glomerular Filtration Rate for [facility] Start: 07-24-2025 Diabetes: Estimated Glomerular Filtration Rate for [facility] Diabetes: Estimated Glomerular Filtration Rate for [facility] Start: 06-07-2025 Diabetes: Estimated Glomerular Filtration Rate for [facility] Diabetes: Estimated Glomerular Filtration Rate for [facility] Start: 02-24-2025 End: 02-24-2025 ambulatory 02/24/2025 10:00 AM EST [facility] [address] [place] [address] PROCRIT/DACOGEN Hematology/Oncology Comment on above: PROCRIT/DACOGEN Start: 02-17-2025 End: 02-17-2025 ambulatory 02/17/2025 10:00 AM EST [facility]Oncology [address] [place] [address] PROCRIT/DACOGEN Hematology/Oncology Comment on above: PROCRIT/DACOGEN Start: 02-10-2025 End: 02-10-2025 ambulatory 02/10/2025 2:00 PM EST [facility] H[facility]ology[facility]Oncology [address] [place] [address] PROCRIT/DACOGEN Hematology/Oncology Comment on above: PROCRIT/DACOGEN Start: 02-03-2025 End: 02-03-2025 ambulatory 02/03/2025 2:00 PM EST [facility] [address] [place] [address] PROCRIT/DACOGEN Hematology/Oncology Comment on above: PROCRIT/DACOGEN Start: 01-27-2025 End: 01-27-2025 ambulatory 01/27/2025 2:00 PM EST [facility]On[facility] [address] [place] [address] PROCRIT/DACOGEN Hematology/Oncology Comment on above: PROCRIT/DACOGEN Start: 01-20-2025 End: 01-20-2025 ambulatory 01/20/2025 2:30 PM EST [facility] H[facility]Oncology [address] [place] [address] PROCRIT/DACOGEN Hematology/Oncology Comment on above: PROCRIT/DACOGEN Start: 01-13-2025 End: 01-13-2025 ambulatory 01/13/2025 2:00 PM EST [facility] H[facility]On[facility] [address] [place] [address] PROCRIT/DACOGEN Hematology/Oncology Comment on above: PROCRIT/DACOGEN Start: 01-06-2025 End: 01-06-2025 ambulatory 01/06/2025 2:00 PM EST [facility] H[facility]Oncology [address] [place] [address] PROCRIT/DACOGEN Hematology/Oncology Comment on above: PROCRIT/DACOGEN Start: 12-30-2024 End: 12-30-2024 ambulatory 12/30/2024 2:00 PM EST [facility] Hematology[facility]Oncology [address] [place] [address] PROCRIT/DACOGEN Hematology/Oncology Comment on above: PROCRIT/DACOGEN Start: 12-23-2024 End: 12-23-2024 ambulatory 12/23/2024 2:00 PM EDT [facility] Hematology[facility]Oncology [address] [place] [address] PROCRIT/DACOGEN Hematology/Oncology Comment on above: PROCRIT/DACOGEN Start: 12-16-2024 End: 12-16-2024 ambulatory [facility] Comment on above: epoetin, anemia, Mat t, EMBER PROCRIT/DACOGEN Start: 12-09-2024 End: 12-09-2024 ambulatory [facility] Comment on above: epoetin, anemia, Mat t, EMBER PROCRIT/DACOGEN Start: 12-02-2024 End: 12-02-2024 ambulatory IN[facility] Comment on above: epoetin, anemia, Mat t, EMBER PROCRIT/DACOGEN Start: 11-25-2024 End: 11-25-2024 ambulatory IN[facility] Comment on above: epoetin, anemia, Mat t, EMBER PROCRIT/DACOGEN Start: 11-20-2024 End: 11-20-2024 ambulatory 11/20/2024 4:30 PM EDT [facility] Hematology/Oncology [address] [place] [address] Annie Frank MD [address] [place], [place] [id number] [phone] Hematology/Oncology Comment on above: [phone] Start: 11-18-2024 End: 11-18-2024 ambulatory IN[facility] Comment on above: epoetin, anemia, Mat t, EMBER PROCRIT/DACOGEN PROCRIT/DACOGEN 1:00 Start: 11-13-2024 End: 11-13-2024 ambulatory 11/13/2024 3:00 PM EDT [facility] Hematology/Oncology [address] [place] [id number] Annie Frank MD [address] [place], [place] [id number] [phone] Hematology/Oncology Comment on above: [phone] Start: 11-12-2024 End: 11-12-2024 ambulatory 11/12/2024 2:00 PM EDT [facility] [address] [place] [address] epoetin, anemia, Garcia, EMBER INF[facility] Comment on above: epoetin, anemia, Mat t, EMBER Start: 11-11-2024 End: 11-11-2024 ambulatory 11/11/2024 1:00 PM EDT [facility] Hematology/Oncology [address] [place] [address] PROCRIT/DACOGEN Hematology/Oncology Comment on above: PROCRIT/DACOGEN Start: 11-04-2024 End: 11-04-2024 ambulatory Hematology/Oncology Comment on above: PROCRIT procrit 2:30 Start: 10-28-2024 End: 10-28-2024 ambulatory 10/28/2024 1:00 PM EDT [facility] [address] [place] [address] epoetin, anemia, Garcia, EMBER IN[facility] Comment on above: epoetin, anemia, Mat t, EMBER Start: 10-26-2024 COVID-19 Vaccine () COVID-19 Vaccine () [facility] Start: 10-26-2024 Influenza vaccination [facility] Start: 10-21-2024 End: 10-21-2024 ambulatory 10/21/2024 1:00 PM EDT [facility]fusion [facility] [address] [place] [address] epoetin, anemia, Garcia, EMBER IN[facility] Comment on above: epoetin, anemia, Mat t, EMBER Start: 10-14-2024 End: 10-14-2024 ambulatory 10/14/2024 1:00 PM EDT [facility] [address] [place] [address] epoetin, anemia, Garcia, EMBER INF[facility] Comment on above: epoetin, anemia, Mat t, EMBER Start: 10-08-2024 End: 10-08-2024 ambulatory 10/08/2024 1:00 PM EDT [facility] [address] [place] [address] RBC, Garcia, EMBER IN[facility] Comment on above: RBC, Garcia, EMBER Start: 10-07-2024 End: 10-07-2024 ambulatory Hematology/Oncology Comment on above: PROCRIT PROCRIT 2:30 Start: 09-30-2024 End: 09-30-2024 ambulatory 09/30/2024 1:00 PM EDT [facility] [address] [place] [address] epoetin, anemia, Garcia, EMBER IN[facility] Comment on above: epoetin, anemia, Mat t, EMBER Start: 09-24-2024 End: 09-24-2024 ambulatory 09/24/2024 1:00 PM EDT [facility] [address] [place] [address] epoetin, RBC?, anemia, Garcia, EMBER IN[facility] Comment on above: epoetin, RBC?, anemi a, Garcia, EMBER Start: 09-23-2024 End: 12-23-2024 25-hydroxyvitamin D3 [Mass/volume] in Serum or Plasma VITAMIN D 25 HYDROXY Lab Routine Myelodysplastic syndrome, unspecified (HCC) Anemia, unspecified type Vitamin D deficiency, unspecified Expected: 09/23/2024 (Approximate), Expires: 12/23/2024 [facility] Comment on above: Expected: 09/23/2024 (Approximate), Expires: 12/23/2024 Start: 09-23-2024 End: 12-23-2024 CBC W Auto Differential panel - Blood COMPLETE BLOOD COUNT AND DIFFERENTIAL Lab Routine Myelodysplastic syndrome, unspecified (HCC) Anemia, unspecified type Expected: 09/23/2024 (Approximate), Expires: 12/23/2024 [facility] Comment on above: Expected: 09/23/2024 (Approximate), Expires: 12/23/2024 Start: 09-23-2024 End: 12-23-2024 Comprehensive metabolic 2000 panel - Serum or Plasma COMPREHENSIVE METABOLIC PANEL Lab Routine Myelodysplastic syndrome, unspecified (HCC) Anemia, unspecified type Expected: 09/23/2024 (Approximate), Expires: 12/23/2024 [facility] Comment on above: Expected: 09/23/2024 (Approximate), Expires: 12/23/2024 Start: 09-23-2024 End: 12-23-2024 COPPER BLOOD COPPER BLOOD Lab Routine Myelodysplastic syndrome, unspecified (HCC) Anemia, unspecified type Expected: 09/23/2024 (Approximate), Expires: 12/23/2024 [facility] Comment on above: Expected: 09/23/2024 (Approximate), Expires: 12/23/2024 Start: 09-23-2024 End: 12-23-2024 Ferritin [Mass/volume] in Serum or Plasma FERRITIN Lab Routine Myelodysplastic syndrome, unspecified (HCC) Anemia, unspecified type Expected: 09/23/2024 (Approximate), Expires: 12/23/2024 [facility] Work Phone: Comment on above: Expected: 09/23/2024 (Approximate), Expires: 12/23/2024 Start: 09-23-2024 End: 12-23-2024 Iron and Iron binding capacity panel - Serum or Plasma IRON AND TIBC Lab Routine Myelodysplastic syndrome, unspecified (HCC) Anemia, unspecified type Expected: 09/23/2024 (Approximate), Expires: 12/23/2024 [facility] Comment on above: Expected: 09/23/2024 (Approximate), Expires: 12/23/2024 Start: 09-23-2024 End: 12-23-2024 Lactate dehydrogenase [Enzymatic activity/volume] in Serum or Plasma LACTATE DEHYDROGENASE Lab Routine Myelodysplastic syndrome, unspecified (HCC) Anemia, unspecified type Expected: 09/23/2024 (Approximate), Expires: 12/23/2024 [facility] Comment on above: Expected: 09/23/2024 (Approximate), Expires: 12/23/2024 Start: 09-23-2024 End: 12-23-2024 Methylmalonate [Moles/volume] in Serum or Plasma METHYLMALONIC ACID Lab Routine Myelodysplastic syndrome, unspecified (HCC) Anemia, unspecified type Expected: 09/23/2024 (Approximate), Expires: 12/23/2024 [facility] Comment on above: Expected: 09/23/2024 (Approximate), Expires: 12/23/2024 Start: 09-23-2024 End: 12-23-2024 RETICULOCYTE COUNT RETICULOCYTE COUNT Lab Routine Myelodysplastic syndrome, unspecified (HCC) Anemia, unspecified type Expected: 09/23/2024 (Approximate), Expires: 12/23/2024 [facility] Comment on above: Expected: 09/23/2024 (Approximate), Expires: 12/23/2024 Start: 09-23-2024 End: 12-23-2024 Testosterone [Mass/volume] in Serum or Plasma TESTOSTERONE, TOTAL BY IMMUNOASSAY (ADULT MALES, OR INDIVIDUALS ON TESTOSTERONE THERAPY) Lab Routine Myelodysplastic syndrome, unspecified (HCC) Anemia, unspecified type Expected: 09/23/2024 (Approximate), Expires: 12/23/2024 [facility] Comment on above: Expected: 09/23/2024 (Approximate), Expires: 12/23/2024 Start: 09-23-2024 End: 12-23-2024 Thyrotropin [Units/volume] in Serum or Plasma THYROID STIMULATING HORMONE Lab Routine Myelodysplastic syndrome, unspecified (HCC) Anemia, unspecified type Expected: 09/23/2024 (Approximate), Expires: 12/23/2024 [facility] Comment on above: Expected: 09/23/2024 (Approximate), Expires: 12/23/2024 Start: 09-23-2024 End: 09-23-2024 ambulatory 09/23/2024 11:00 AM EDT Visit (SP) Office Hematology/Oncology [address] [place] [phone] [place] [address] [place] [address] [facility] Hematology/Oncology 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 Start: 09-22-2024 End: 09-22-2024 ambulatory 09/22/2024 11:30 AM EDT [facility] Hematology[facility]Oncology [address] [place] [address] [facility] Hematology/Oncology Comment on above: rytelo Start: 09-16-2024 End: 09-16-2024 ambulatory 09/16/2024 1:30 PM EDT [facility]fusion [facility] [address] [place] [address] epoetin, anemia, Garcia, EMBER [facility] Comment on above: epoetin, anemia, Mat t, EMBER Start: 09-09-2024 End: 09-09-2024 ambulatory Hematology/Oncology Comment on above: EPOETIN Epoetin 2:30 Start: 09-04-2024 End: 09-04-2024 ambulatory 09/04/2024 1:00 PM EDT Visit (SP) Office Hematology/Oncology [id number] [place] [address] [place] [address] [place], [place] [id number] [facility]ematology[facility]On[facility] 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 Start: 09-02-2024 End: 09-02-2024 ambulatory 09/02/2024 1:00 PM EDT [facility] [address] [place] [address] epoetin, RBC?, anemia, Garcia, EMBER [facility] Comment on above: epoetin, RBC?, anemi a, Garcia, EMBER Start: 09-01-2024 End: 09-01-2024 ambulatory 09/01/2024 1:30 PM EDT [facility] Hematology[facility]Oncology [address] [place] [address] [facility] Hematology/Oncology Comment on above: Reblozyl Start: 08-26-2024 End: 08-26-2024 ambulatory 08/26/2024 1:00 PM EDT [facility] [address] [place] [address] epoetin, RBC?, anemia, Garcia, EMBER [facility] Comment on above: epoetin, RBC?, anemi a, Garcia, EMBER Start: 08-25-2024 End: 08-25-2024 ambulatory 08/25/2024 11:30 AM EDT [facility] Hematology[facility]Oncology [address] [place] [address] [facility] Hematology/Oncology Comment on above: rytelo Start: 08-19-2024 End: 08-19-2024 ambulatory [facility] Comment on above: RBC, anemia, Garcia, K C epoetin, RBC?, anemi a, Garcia, EMBER Start: 08-18-2024 End: 08-11-2025 CBC W Auto Differential panel - Blood CBC auto differential Lab Routine MDS (myelodysplastic syndrome) (HCC) Expected: 08/18/2024 (Approximate), Expires: 08/11/2025 [employer] [facility] Work Phone: Comment on above: Expected: 08/18/2024 (Approximate), Expires: 08/11/2025 Start: 08-18-2024 End: 08-11-2025 Erythropoietin Erythropoietin Lab Routine MDS (myelodysplastic syndrome) (HCC) Expected: 08/18/2024 (Approximate), Expires: 08/11/2025 [facility] Comment on above: Expected: 08/18/2024 (Approximate), Expires: 08/11/2025 Start: 08-12-2024 End: 08-12-2024 ambulatory 08/12/2024 12:30 PM EDT [facility]fusion [facility] [address] [place] [address] RBC, anemia, Garcia, EMBER IN[facility] Comment on above: RBC, anemia, Garcia, K C Start: 08-11-2024 End: 08-11-2024 ambulatory 08/11/2024 1:30 PM EDT [facility] Hematology[facility]Oncology [address] [place] [address] [facility] Hematology/Oncology Comment on above: Reblozyl Start: 08-10-2024 End: 08-10-2024 Patient encounter procedure 08/10/2024 12:00 PM EDT Office Visit [facility] Hematology and Medical Oncology [facility] [address] [place] [phone] Sabas You MD [address] [facility] [address] [place] [address] [facility] Hematology and Medical Oncology - [facility] Start: 08-06-2024 End: 08-06-2024 ambulatory 08/06/2024 1:30 PM EDT [facility]fusion [facility] [address] [place] [address] RBC's, anemia, Garcia, EMBER IN[facility] Comment on above: RBC's, anemia, Garcia, EMBER Start: 08-05-2024 End: 08-05-2024 ambulatory 08/05/2024 11:00 AM EDT Visit (SP) Office [facility] [address] [place] [address] Garcia-Vicenta Cruz MD [address] [facility] [address] [place] [phone] Bone marrow results [facility] Comment on above: Bone marrow results Start: 07-28-2024 End: 07-28-2024 ambulatory 07/28/2024 11:30 AM EDT [facility] Hematology[facility]Oncology [address] [place] [address] [facility] Hematology/Oncology Comment on above: rytelo Start: 07-24-2024 End: 07-24-2025 Immunofixation Electrophoresis [facility] Work Phone: Comment on above: Expected: 07/24/2024 (Approximate), Expires: 07/24/2025 Start: 07-24-2024 End: 07-24-2024 ambulatory 07/24/2024 1:30 PM EDT [facility]fusion [facility] [address] [place] [address] RBC, anemia, Garcia. EMBER [facility] Comment on above: RBC, anemia, Garcia. K C Start: 07-22-2024 End: 07-22-2024 ambulatory 07/22/2024 2:30 PM EDT [facility] Hematology[facility]Oncology [address] [place] [address] [facility] Hemat[facility]On[facility] Comment on above: Rebcarolyl Start: 07-17-2024 End: 07-17-2024 ambulatory 07/17/2024 12:00 PM EDT [facility]fusion [facility] [address] [place] [address] RBC, anemia, Garcia. EMBER IN[facility] Comment on above: RBC, anemia, Garcia. K C Start: 07-15-2024 End: 07-15-2024 Patient encounter procedure 07/15/2024 9:40 AM EDT Office Visit [facility] [address] [address] Tracy Farfan PA-C [address] [place] [address] Back pain [facility] Comment on above: Back pain Start: 07-10-2024 End: 07-10-2024 ambulatory 07/10/2024 1:00 PM EDT [facility] [address] [place] [address] RBC, anemia, Garcia. EBMER [facility] Comment on above: RBC, anemia, Garcia. K C Start: 07-03-2024 End: 07-30-2025 Guidance for biopsy of Bone marrow IMAGING GUIDED BONE MARROW BIOPSY AND ASPIRATION (CIARAN)([place] AV,[facility]) Radiology Routine Myelodysplastic syndrome, unspecified (HCC) Clonal cytopenia of undetermined significance (CCUS) Expected: 07/03/2024, Expires: 07/30/2025 [facility] Work Phone: Comment on above: Expected: 07/03/2024 , Expires: 07/30/2025 Start: 07-03-2024 End: 07-03-2024 ambulatory 07/03/2024 1:00 PM EDT [facility]fusion [facility] [address] [place] [address] RBC, anemia, Garcia. EMBER [facility] Comment on above: RBC, anemia, Garcia. K C Start: 06-30-2024 End: 06-30-2024 ambulatory 06/30/2024 11:30 AM EDT [facility] Hematology[facility]Oncology [address] [place] [address] [facility] Hematology/Oncology Comment on above: [facility] Start: 06-24-2024 End: 06-24-2024 Patient encounter procedure 06/24/2024 9:45 AM EDT Office Visit [facility] [address] [phone] Sabas You MD [address] [facility] [address] [address] [facility] Start: 06-17-2024 End: 06-17-2024 ambulatory 06/17/2024 12:00 PM EDT [facility]fusion [facility] [address] [place] [address] Reblozyl, anemia, Garcia, EMBER [facility] Comment on above: Reblozyl, anemia, Ma tt, EMBER Start: 06-12-2024 DIABETES SCREEN DIABETES SCREEN [facility] Start: 06-07-2024 Hepatitis B surface antibody level LDL Cholesterol [facility] Start: 06-02-2024 End: 06-02-2024 ambulatory 06/02/2024 11:30 AM EDT [facility] Hematology[facility]Oncology [address] [place] [address] [facility] Hematology/Oncology Comment on above: [facility] Start: 2024 End: 2024 ambulatory 2024 1:00 PM EDT [facility] [address] [place] [address] Reblozyl, anemia, Garcia, EMBER IN[facility] Comment on above: Reblozyl, anemia, Ma tt, EMBER Start: 05-06-2024 End: 05-06-2024 ambulatory 05/06/2024 12:00 PM EDT [facility] [address] [place] [address] RBC's, anemia, EMBER IN[facility]ION Comment on above: RBC's, anemia, EMBER Start: 05-05-2024 End: 05-05-2024 ambulatory [facility] Comment on above: labs/Reblozyl, anemi a, Garcia, EMBER rytelo 1:30 Start: 05-05-2024 End: 05-05-2024 ambulatory 05/05/2024 11:30 AM EDT [facility]fusion [facility] Hematology/Oncology [address] [place] [address] [facility] Hematology/Oncology Comment on above: r[facility]elo Start: 04-16-2024 End: 04-16-2024 ambulatory 04/16/2024 1:00 PM EST [facility]fusion [facility] [address] [place] [address] Transfusion, Garcia, EMBER INF[facility]ION Comment on above: Transfusion, Garcia, K C Start: 04-14-2024 End: 04-14-2024 ambulatory 04/14/2024 1:30 PM EST [facility] [address] [place] [address] labs/Reblozyl, anemia, Garcia, EMBER IN[facility] Comment on above: labs/Reblozyl, anemi a, Garcia, EMBER Start: 04-07-2024 End: 04-07-2024 ambulatory 04/07/2024 12:00 PM EST [facility] Hematology[facility]Oncology [address] [place] [address] [facility] Hematology/Oncology Comment on above: rytelo Start: 03-25-2024 End: 03-25-2024 ambulatory 03/25/2024 1:00 PM EST [facility]fusion [facility] [address] [place] [address] RBC, anemia, Garcia, EMBER IN[facility] Comment on above: RBC, anemia, Garcia, K C Start: 03-13-2024 End: 03-13-2024 ambulatory 03/13/2024 2:45 PM EST Visit (SP) Office [facility] [address] [place] [address] Vicenta Noriega MD [address] [phone] ov with labs [facility] Comment on above: ov with labs Start: 03-06-2024 End: 03-06-2024 ambulatory 03/06/2024 9:30 AM EST [facility] H[facility]ology[facility]Oncology [address] [place] [address] RYTEM[facility]HEAL Hematology/Oncology Comment on above: RYTELO Start: 02-26-2024 Advance Directive Discussion Advance Directive Discussion [facility] Start: 02-26-2024 Medicare Advantage A nnual Wellness Visit Medicare Advantage Annual Wellness Visit [facility] Start: 02-12-2024 End: 02-12-2024 ambulatory [facility] Comment on above: RBC's. anemia, Garcia, EMBER 1 unit Start: 02-07-2024 End: 02-07-2024 ambulatory 02/07/2024 9:30 AM EST [facility] H[facility]ology[facility]Oncology [address] [place] [address] GAVINTEMICHEAL Hematology/Oncology Comment on above: RYTELO Start: 01-10-2024 End: 01-10-2024 ambulatory 01/10/2024 9:30 AM EST [facility] Hematology[facility]Oncology [address] [place] [address] [employer]OM HANDLE DIPPER GAVINTEMICHEAL Hematology/Oncology Comment on above: BROOM HANDLE DIPPER RYTEMICHEAL Start: 12-31-2023 End: 12-31-2023 ambulatory 12/31/2023 9:30 AM EST [facility] Hematology/Oncology [address] [place], [place] [id number] BROOM HANDLE DIPPER GAVINTEMICHEAL Hematology/Oncology Comment on above: BROOM HANDLE DIPPER GAVINTEMICHEAL Start: 12-24-2023 End: 03-24-2024 Basic metabolic 2000 panel - Serum or Plasma BASIC METABOLIC PANEL Lab Routine Myelodysplastic syndrome, unspecified (HCC) Expected: 12/24/2023, Expires: 03/24/2024 [facility] Comment on above: Expected: 12/24/2023 , Expires: 03/24/2024 Start: 12-24-2023 End: 03-24-2024 CBC W Auto Differential panel - Blood COMPLETE BLOOD COUNT AND DIFFERENTIAL Lab STAT Myelodysplastic syndrome, unspecified (HCC) Expected: 12/24/2023, Expires: 03/24/2024 [facility] Work Phone: Comment on above: Expected: 12/24/2023 , Expires: 03/24/2024 Start: 12-24-2023 End: 03-24-2024 Ferritin [Mass/volume] in Serum or Plasma FERRITIN Lab Routine Myelodysplastic syndrome, unspecified (HCC) Expected: 12/24/2023, Expires: 03/24/2024 [facility] Comment on above: Expected: 12/24/2023 , Expires: 03/24/2024 Start: 12-24-2023 End: 03-24-2024 Hepatic function 2000 panel - Serum or Plasma HEPATIC FUNCTION PNL Lab Routine Myelodysplastic syndrome, unspecified (HCC) Expected: 12/24/2023, Expires: 03/24/2024 [facility] Work Phone: Comment on above: Expected: 12/24/2023 , Expires: 03/24/2024 Start: 12-24-2023 End: 03-24-2024 Iron and Iron binding capacity panel - Serum or Plasma IRON AND TIBC Lab Routine Myelodysplastic syndrome, unspecified (HCC) Expected: 12/24/2023, Expires: 03/24/2024 [facility] Comment on above: Expected: 12/24/2023 , Expires: 03/24/2024 Start: 12-10-2023 End: 12-10-2023 ambulatory 12/10/2023 1:30 PM EDT [facility]fusion [facility] [address] [place] [address] Reblozyl/labs, anemia, Garcia, EMBER [facility] Comment on above: Reblozyl/labs, anemi a, Garcia, EMBER Start: 11-28-2023 End: 11-28-2023 ambulatory 11/28/2023 2:45 PM EDT Visit (SP) Office [facility] [address] [place] [address] Garcia-Vicenta Cruz MD [address] [phone] WK OV + LABS [facility] Comment on above: 8 WK OV + LABS Start: 11-20-2023 End: 11-20-2023 ambulatory 11/20/2023 1:30 PM EDT [facility]fusion [facility] [address] [place] [address] RBC's, anemia, Garcia, EMBER [facility] Comment on above: RBC's, anemia, Garcia, EMBER Start: 11-19-2023 End: 11-19-2023 ambulatory 11/19/2023 1:00 PM EDT [facility]fusion [facility] [address] [place] [address] labs/Reblozyl, anemia, Garcia, EMBER IN[facility] Comment on above: labs/Reblozyl, anemi a, Garcia, EMBER Start: 10-29-2023 End: 10-29-2023 ambulatory 10/29/2023 2:00 PM EDT [facility]fusion [facility] [address] [place] [address] Reblozyl, anemia, Garcia, EMBER [facility] Comment on above: Reblozyl, anemia, Ma tt, EMBER Start: 10-27-2023 Covid-19 Vaccine ( season) Covid-19 Vaccine ( season) [facility] Start: 10-27-2023 Covid-19 Vaccine ( season) Covid-19 Vaccine () [facility] Start: 10-27-[address] [facility] Start: 10-03-2023 End: 10-03-2023 ambulatory [facility] Comment on above: 2 month ov + labs Reblozyl, anemia, Ma tt, EMBER Start: 09-19-2023 End: 09-19-2023 Patient encounter procedure 09/19/2023 1:30 PM EDT Office Visit Neurology [address] [address] Rowena Guerra APRN.MEDICAL RECORD LIBRARIAN [address] [place] [address] Neurology Comment on above: FU Start: 09-18-2023 End: 09-18-2023 ambulatory 09/18/2023 1:00 PM EDT [facility] [address] [place] [address] RBC, anemia, Garcia- Anthony, EMBER [facility] Comment on above: RBC, anemia, Garcia- A kimmy, EMBER Start: 09-13-2023 End: 09-13-2023 ambulatory 09/13/2023 2:00 PM EDT [facility] [address] [place] [address] Reblozyl, anemia, Garcia, EMBER [facility] Comment on above: Reblozyl, anemia, Ma tt, EMBER Start: 09-13-2023 End: 12-13-2023 TYPE + SCREEN TYPE + SCREEN Blood Bank Routine Myelodysplastic syndrome, unspecified (HCC) Expected: 09/13/2023, Expires: 12/13/2023 [facility] Work Phone: Comment on above: Expected: 09/13/2023 , Expires: 12/13/2023 Start: 09-08-2023 Hemoglobin A1c measurement HbA1C [facility] Start: 08-23-2023 End: 08-23-2023 ambulatory 08/23/2023 2:00 PM EDT [facility] [address] [place] [address] Reblozyl, anemia, Garcia, EMBER [facility] Comment on above: Reblozyl, anemia, Ma tt, EMBER Start: 08-02-2023 End: 08-02-2023 ambulatory 08/02/2023 2:00 PM EDT [facility]fusion [facility] [address] [place] [address] Reblozyl, anemia, Garcia-Anthony,EMBER INFUS[facility] Comment on above: Reblozyl, anemia, Ma tt-Anthony,EMBER Start: 08-01-2023 End: 08-01-2023 ambulatory 08/01/2023 2:30 PM EDT Visit (SP) Office [facility] [address] [place] [address] Vicenta Noriega MD [address] [phone] 8 wk ov + labs [facility] Comment on above: 8 wk ov + labs Start: 07-12-2023 End: 07-12-2023 ambulatory 07/12/2023 2:30 PM EDT [facility] [address] [place] [address] Reblozyl, anemia, Garcia-Anthony, EMBER INF[facility] Comment on above: Reblozyl, anemia, Phil tt-Anthony, EMBER Start: 07-12-2023 End: 07-12-2023 ambulatory 07/12/2023 10:30 AM EDT [facility]fusion [facility] [address] [place] [address] Reblozyl, anemia, Garcia-Anthony, EMBER [facility] Comment on above: Reblozyl, anemia, Ma tt-Anthony, EMBER Start: 06-28-2023 End: 06-28-2023 Patient encounter procedure 06/28/2023 2:30 PM EDT Office Visit Neurology [address] [address] Rowena Guerra, DIRECTOR STARS.MEDICAL RECORD LIBRARIAN [address] [place] [address] [facility] Comment on above: TIA Start: 02-25-2023 Advance Directive Discussion Advance Directive Discussion [facility] Start: 02-25-2023 Behavioral Health Screening Behavioral Health Screening [facility] Start: 02-25-2023 Depression Assessment Depression Ass essment [facility] Start: 12-16-2022 End: 02-15-2023 Erythropoietin (EPO) [Units/volume] in Serum or Plasma ERYTHROPOIETIN/EPO Lab Routine Anemia, unspecified type Clonal cytopenia of undetermined significance (CCUS) Expected: 12/16/2022, Expires: 02/15/2023 [facility] Comment on above: Expected: 12/16/2022 , Expires: 02/15/2023 Start: 12-16-2022 End: 02-15-2023 Ferritin [Mass/volume] in Serum or Plasma FERRITIN BLD Lab Routine Anemia, unspecified type Clonal cytopenia of undetermined significance (CCUS) Expected: 12/16/2022, Expires: 02/15/2023 [facility] Comment on above: Expected: 12/16/2022 , Expires: 02/15/2023 Start: 12-16-2022 End: 02-15-2023 Iron and Iron binding capacity panel - Serum or Plasma IRON + TIBC Lab Routine Anemia, unspecified type Clonal cytopenia of undetermined significance (CCUS) Expected: 12/16/2022, Expires: 02/15/2023 [facility] Work Phone: Comment on above: Expected: 12/16/2022 , Expires: 02/15/2023 Start: 10-26-2022 Covid-19 Vaccine ( season) Covid-19 Vaccine () [facility] Start: 10-26-[address] [facility] Start: 02-25-2022 ADVANCE DIRECTIVE DISCUSSION ADVANCE DIRECTIVE DISCUSSION [facility] Start: 02-25-2022 DEPRESSION ASSESSMENT DEPRESSION ASS ESSMENT [facility] Start: 10-26-2021 Influenza vaccination INFLUENZA (#1) [facility] Start: 09-07-2021 Patient discharge [facility] Work Phone: Start: 06-25-2021 Hepatitis B surface antibody level LDL CHOLESTEROL [facility] Start: 02-25-2021 ADVANCE DIRECTIVE DISCUSSION ADVANCE DIRECTIVE DISCUSSION [facility] Start: 02-25-2021 DEPRESSION ASSESSMENT DEPRESSION ASS ESSMENT [facility] Start: 12-26-2020 Hemoglobin A1c measurement HbA1C [facility] Start: 12-26-2020 Hemoglobin A1c/Hemoglobin.total in Blood HBA1C [facility] Start: 07-21-2020 COVID-19 VACCINE (3 - Booster for Moderna series) COVID-19 VACCINE (3 - Booster for Moderna series) [facility] Start: 07-21-2020 COVID-19 VACCINE (3 - Moderna series) COVID-19 VACCINE (3 - Moderna series) [facility] Start: 05-26-2018 RSV Immunization for Adults (1 - 1-dose 75+ series) RSV Immunization for Adults (1 - 1-dose 75+ series) [facility] Start: 05-26-2018 RSV Vaccine (1 - 1-d ose 75+ series) RSV Vaccine (1 - 1-dose 75+ series) [facility] Start: 05-26-2008 PNEUMOCOCCAL: 65+ (1 - PCV) PNEUMOCOCCAL: 65+ (1 - PCV) [facility] Start: 2003 Hepatitis B Vaccine (1 of 3 - Risk 3-dose series) Hepatitis B Vaccine (1 of 3 - Risk 3-dose series) [facility] Start: 2003 RSV Vaccine (1 - 1-d ose 60+ series) RSV Vaccine (1 - 1-dose 60+ series) [facility] Start: 05-26-1993 Pneumococcal Vaccine : 50+ Years (1 of 1 - PCV) Pneumococcal Vaccine: 50+ Years (1 of 1 - PCV) [facility] Start: 05-26-1993 SHINGRIX VACCINE (1 of 2) MURPHY GRIX VACCINE (1 of 2) [facility] Start: 05-26-1993 Zoster Vaccines (1 of 2) Zoster Vacc slime (1 of 2) [facility] Start: 05-26-1962 DTaP/Tdap/Td Vaccine s (1 - Tdap) DTaP/Tdap/Td Vaccines (1 - Tdap) [facility] Start: 05-26-1962 Pneumococcal Vaccine : 50+ (1 of 2 - PCV) Pneumococcal Vaccine: 50+ (1 of 2 - PCV) [facility] Start: 05-26-1962 Pneumococcal Vaccine : 50+ Years (1 of 2 - PCV) Pneumococcal Vaccine: 50+ Years (1 of 2 - PCV) [facility] Start: 05-26-1962 Shingrix Vaccine (1 of 2) Murphy grix Vaccine (1 of 2) [facility] Start: 05-26-1962 Urine microalbumin profile [facility] Start: 05-26-1961 ANNUAL PCP TEAM STONE SETTER METAL OPTICAL FRAMES LEN DISEASE VISIT ANNUAL PCP TEAM CHRONIC DISEASE VISIT [facility] Start: 05-26-1961 Anxiety Screening Anxiety Screening [facility] Start: 05-26-1961 Depression Screening Depression Scre ing [facility] Start: 05-26-1961 Diabetes: Urine Albumin-Creatinine Ratio for Kidney Health Diabetes: Urine Albumin-Creatinine Ratio for Kidney Health [facility] Start: 05-26-1961 HEPATITIS C SCREENING HEPATITIS C SC REENING [facility] Start: 1955 Depression Screening Depression Scre don [facility] Start: 05-26-1953 3 comp foot exam completed DIABETIC FOOT EXAM [facility] Start: 05-26-1953 Diabetic foot examination Diabetic F oot Exam [facility] Start: 05-26-1953 Glaucoma screening Dilated Retinal E xam [facility] Start: 05-26-1953 Hepatitis B screening URINE AL BUMIN:CREATININE RATIO [facility] Start: 05-26-1953 Hepatitis C antibody , confirmatory test DILATED RETINAL EXAM [facility] Start: 05-26-1949 Pneumococcal Vaccine : 65+ (1 - PCV) Pneumococcal Vaccine: 65+ (1 - PCV) [facility] Start: 05-26-1949 Pneumococcal Vaccine : 65+ (1 of 2 - PCV) Pneumococcal Vaccine: 65+ (1 of 2 - PCV) [facility] Start: 05-26-1949 PNEUMOCOCCAL: 65+ (1 - PCV) PNEUMOCOCCAL: 65+ (1 - PCV) [facility] BONE MARROW ANALYSIS BONE MARROW ANALYSIS Lab Routine Anemia, unspecified type 06/01/2022 10:34 AM [facility] Work Phone: BONE MARROW ANALYSIS BONE MARROW ANALYSIS Lab Routine Myelodysplastic syndrome, unspecified (HCC) 07/21/2024 12:28 PM [facility] BONE MARROW CHROMOSO ME ANAL BONE MARROW CHROMOSOME ANAL Lab Routine Anemia, unspecified type 06/01/2022 10:34 AM [facility] Work Phone: BONE MARROW CHROMOSO ME ANAL BONE MARROW CHROMOSOME ANAL Lab Routine Myelodysplastic syndrome, unspecified (HCC) 07/21/2024 12:28 PM [facility] End: 09-19-2023 CBC W Auto Differential panel - Blood CBC + DIFF Lab STAT Anemia, unspecified type 20 Occurrences starting 09/19/2022 until 09/19/2023 [facility] Work Phone: Comment on above: 20 Occurrences start ing 09/19/2022 until 09/19/2023 End: 10-02-2024 CBC W Auto Differential panel - Blood COMPLETE BLOOD COUNT AND DIFFERENTIAL Lab STAT Myelodysplastic syndrome, unspecified (HCC) Clonal cytopenia of undetermined significance (CCUS) Once per week for 52 Occurrences starting 10/03/2023 until 10/02/2024, 2 completed [facility] [employer] Work Phone: Comment on above: Once per week for 52 Occurrences starting 10/03/2023 until 10/02/2024, 2 completed End: 12-23-2024 CBC W Auto Differential panel - Blood COMPLETE BLOOD COUNT AND DIFFERENTIAL Lab STAT Myelodysplastic syndrome, unspecified (HCC) Once per month for 12 Occurrences starting 12/25/2023 until 12/23/2024, 1 completed [facility] Comment on above: Once per month for 1 2 Occurrences starting 12/25/2023 until 12/23/2024, 1 completed End: 10-06-2025 CBC W Auto Differential panel - Blood COMPLETE BLOOD COUNT AND DIFFERENTIAL Lab STAT Myelodysplastic syndrome, unspecified (HCC) Anemia, unspecified type 30 Occurrences starting 10/06/2024 until 10/06/2025, 1 completed [facility] [employer] Work Phone: Comment on above: 30 Occurrences start ing 10/06/2024 until 10/06/2025, 1 completed [facility] Work Phone: End: 12-23-2024 Comprehensive metabolic 2000 panel - Serum or Plasma COMPREHENSIVE METABOLIC PANEL Lab STAT Myelodysplastic syndrome, unspecified (HCC) Once per month for 12 Occurrences starting 12/25/2023 until 12/23/2024, 1 completed [facility] [employer] Work Phone: Comment on above: Once per month for 1 2 Occurrences starting 12/25/2023 until 12/23/2024, 1 completed End: 10-06-2025 Comprehensive metabolic 2000 panel - Serum or Plasma COMPREHENSIVE METABOLIC PANEL Lab Routine Myelodysplastic syndrome, unspecified (HCC) Anemia, unspecified type Once per month for 12 Occurrences starting 10/06/2024 until 10/06/2025, 1 completed [facility] Comment on above: Once per month for 1 2 Occurrences starting 10/06/2024 until 10/06/2025, 1 completed DNA EXTRACTION BONE MARROW (BUFFY COAT) DNA EXTRACTION BONE MARROW (BUFFY COAT) Lab Routine Anemia, unspecified type 06/01/2022 10:34 AM [facility] Work Phone: DNA EXTRACTION BONE MARROW (BUFFY COAT) DNA EXTRACTION BONE MARROW (BUFFY COAT) Lab Routine Myelodysplastic syndrome, unspecified (HCC) 07/21/2024 12:28 PM [facility] End: 10-06-2025 Ferritin [Mass/volume] in Serum or Plasma FERRITIN Lab Routine Myelodysplastic syndrome, unspecified (HCC) Anemia, unspecified type Once per month for 12 Occurrences starting 10/06/2024 until 10/06/2025, 1 completed [facility] Comment on above: Once per month for 1 2 Occurrences starting 10/06/2024 until 10/06/2025, 1 completed FLOW CYTOMETRY BONE MARROW REFLEX FLOW CYTOMETRY BONE MARROW REFLEX Lab Routine Anemia, unspecified type 06/01/2022 10:34 AM [facility] Work Phone: FLOW CYTOMETRY FOR LEUKEMIA/LYMPHOMA (FCLL) FLOW CYTOMETRY FOR LEUKEMIA/LYMPHOMA (FCLL) Lab Routine Myelodysplastic syndrome, unspecified (HCC) 07/21/2024 12:28 PM [facility] End: 07-21-2024 FLOW CYTOMETRY FOR LEUKEMIA/LYMPHOMA (FCLL) PERFORMABLE [facility] Work Phone: Comment on above: Once for 1 Occurrenc es starting 07/21/2024 until 07/21/2024 End: 07-21-2024 FLT3 ITD HN BONE MARROW [facility] Comment on above: ONCE for 1 Occurrenc es starting 07/21/2024 until 07/21/2024 Immunofixation Electrophoresis Immunofixation Electrophoresis Lab Routine MDS (myelodysplastic syndrome) (HCC) 07/24/2024 10:29 AM [facility] End: 10-06-2025 Iron and Iron binding capacity panel - Serum or Plasma IRON AND TIBC Lab Routine Myelodysplastic syndrome, unspecified (HCC) Anemia, unspecified type Once per month for 12 Occurrences starting 10/06/2024 until 10/06/2025, 1 completed [facility] Comment on above: Once per month for 1 2 Occurrences starting 10/06/2024 until 10/06/2025, 1 completed MYELOID NGS PANEL PACO NE MARROW MYELOID NGS PANEL BONE MARROW Lab Routine Myelodysplastic syndrome, unspecified (HCC) 07/21/2024 12:28 PM T [facility] Patient referral [facility] Work Phone: Protein, Total and Protein Electrophoresis Protein, Total and Protein Electrophoresis Lab Routine MDS (myelodysplastic syndrome) (HCC) 07/24/2024 10:29 AM T [employer] RED BLOOD CELLS, ADULT RED BLOOD CELLS, ADULT Blood Bank Routine Anemia, unspecified type 09/11/2022 12:00 AM T [facility] Work Phone: RED BLOOD CELLS, ADULT RED BLOOD CELLS, ADULT Blood Bank Routine Anemia, unspecified type 10/30/2022 12:00 AM [facility] Work Phone: RED BLOOD CELLS, ADULT RED BLOOD CELLS, ADULT Blood Bank Routine Myelodysplastic syndrome, unspecified (HCC) Anemia, unspecified type 02/06/2024 7:00 PM [facility] Work Phone: RED BLOOD CELLS, ADULT RED BLOOD CELLS, ADULT Blood Bank Routine Myelodysplastic syndrome, unspecified (HCC) Anemia, unspecified type 03/23/2024 7:00 PM [facility] Work Phone: RED BLOOD CELLS, ADULT RED BLOOD CELLS, ADULT Blood Bank Routine Myelodysplastic syndrome, unspecified (HCC) Anemia, unspecified type 03/23/2024 7:00 PM [facility] RED BLOOD CELLS, ADULT RED BLOOD CELLS, ADULT Blood Bank Routine Myelodysplastic syndrome, unspecified (HCC) Anemia, unspecified type 05/04/2024 8:00 PM [facility] Work Phone: RED BLOOD CELLS, ADULT RED BLOOD CELLS, ADULT Blood Bank Routine Myelodysplastic syndrome, unspecified (HCC) Anemia, unspecified type 06/29/2024 8:00 PM [facility] Work Phone: RED BLOOD CELLS, ADULT RED BLOOD CELLS, ADULT Blood Bank Routine Anemia, unspecified type Myelodysplastic syndrome, unspecified (HCC) 08/17/2024 8:00 PM [facility] Work Phone: RED BLOOD CELLS, ADULT RED BLOOD CELLS, ADULT Blood Bank Routine Anemia, unspecified type Myelodysplastic syndrome, unspecified (HCC) 09/08/2024 8:00 PM [facility] Work Phone: RED BLOOD CELLS, ADULT RED BLOOD CELLS, ADULT Blood Bank Routine Anemia, unspecified type Myelodysplastic syndrome, unspecified (HCC) 11/03/2024 8:00 PM T [facility] Work Phone: Serum Electrophoresis Serum Elec trophoresis Lab Routine MDS (myelodysplastic syndrome) (HCC) 07/24/2024 10:29 AM [facility] End: 09-19-2023 TYPE + SCREEN TYPE + SCREEN Blood Bank Routine Anemia, unspecified type 20 Occurrences starting 09/19/2022 until 09/19/2023 [facility] Work Phone: Comment on above: 20 Occurrences start ing 09/19/2022 until 09/19/2023 TYPE + SCREEN TYPE + SCREEN Bl ood Bank Routine Anemia, unspecified type 03/29/2023 3:04 PM [facility] Work Phone: TYPE + SCREEN TYPE + SCREEN Bl ood Bank Routine Anemia, unspecified type 08/02/2023 1:41 PM [facility] Work Phone: End: 10-02-2024 TYPE + SCREEN TYPE + SCREEN Blood Bank Routine Myelodysplastic syndrome, unspecified (HCC) Clonal cytopenia of undetermined significance (CCUS) Once per week for 52 Occurrences starting 10/03/2023 until 10/02/2024, 2 completed [facility] Comment on above: Once per week for 52 Occurrences starting 10/03/2023 until 10/02/2024, 2 completed End: 12-24-2024 TYPE + SCREEN TYPE + SCREEN Blood Bank Routine Myelodysplastic syndrome, unspecified (HCC) 10 Occurrences starting 12/25/2023 until 12/24/2024 [facility] Comment on above: 10 Occurrences start ing 12/25/2023 until 12/24/2024 End: 10-06-2025 TYPE + SCREEN TYPE + SCREEN Blood Bank Routine Myelodysplastic syndrome, unspecified (HCC) Anemia, unspecified type 30 Occurrences starting 10/06/2024 until 10/06/2025, 1 completed [facility] Comment on above: 30 Occurrences start ing 10/06/2024 until 10/06/2025, 1 completed [facility] Payers Date Payer Category Payer Medicare (Managed Care) [facility] [id number] 2024 Medicare HMO [employer] [id number] 2023 Self-pay [id number] 2023 Private Health Insurance [id number] 2021 Medicare [id number] 2017 Medicare [id number] 2010 Unknown [id number] 2008 Medicare [id number] Private Health Insurance [id number] Unknown [id number] Unknown [id number] Unknown [id number] Unknown [id number] Unknown [id number] Social History Date Type Detail Facility Start: 09-05-2021 End: 07-31-2022 Tobacco smoking status WYIS Unknown if ever smoked [facility] Start: 02-23-2020 None [facility] Start: 02-23-2020 Spouse/ Signif icant Other [facility] Start: 06-30-2020 Non-smoker [facility] Start: 1945 Sex Assigned At Male [facility] Start: 06-24-2020 End: 07-24-2024 Tobacco smoking status WYIS Never smoked tobacco [facility] Start: 06-24-2020 End: 07-24-2024 Tobacco use and exposure Smokeless tobacco non-user [facility] Start: 06-11-2021 End: 08-11-2024 Alcohol intake Current drinker of alcohol (finding) [facility] Start: 10-29-2020 History SDOH Alcohol Comment social/rare [facility] Start: 1945 Sex Assigned At Not on file [facility] Start: 11-14-2021 End: 11-24-2021 Exposure to SARS-CoV-2 (event) Not sure [facility] Start: 05-23-2022 History SDOH Financial 5 [facility] Start: 05-23-2022 History SDOH Food Worry 1 [facility] Start: 05-23-2022 History SDOH Transpo rt Med 2 [facility] Start: 07-03-2022 End: 08-11-2024 History of Social function [facility] Start: 07-03-2022 End: 08-11-2024 Tobacco use panel [facility] Start: 01-27-2012 How hard is it for y ou to pay for the very basics like food, housing, medical care, and heating Not hard at all [facility] (I/We) worried whephylicia er (my/our) food would run out before (I/we) got money to buy more. Never true [facility] In the past 12 month s, was there a time when you were not able to pay the mortgage or rent on time? 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 [facility] Start: 07-24-2024 Alcohol Comment rare [facility] Medical Equipment Procedure Code Equipment Code Equipment Origin al Text Equipment Identifier Dates [id number] Start: 01-29-2023 Pen Needle, Diab etic (Bd Ultra-Fine Cristal Pen Needle) 32 gauge x 5/32 needle Start: 08-20-2023 Pen Needle, Diab etic (Bd Ultra-Fine Cristal Pen Needle) 32 gauge x 5/32 needle Start: 01-29-2023 End: 08-20-2023 Pen Needle, Diab etic (Bd Ultra-Fine Cristal Pen Needle) 32 gauge x 5/32 needle Start: 08-20-2023 Pen Needle, Diab etic (Bd Ultra-Fine Cristal Pen Needle) 32 gauge x 5/32 needle Start: 01-29-2023 End: 08-20-2023 Goals Date Patient Goal Desired Activity /State Functional Status Date Assessment Result Facility 06-19-2024 Are you deaf, or do you have serious difficulty hearing Yes 06/19/2024 6:07 PM EDT Dian Jaquez RN Yes [facility] 06-19-2024 Are you blind, or do you have serious difficulty seeing, even when wearing glasses No 06/19/2024 6:07 PM Dian Khan RN No [facility] 06-19-2024 Do you have serious difficulty walking or climbing stairs Yes 06/19/2024 6:07 PM Dian Khan RN Yes [facility] 06-19-2024 Do you have difficul ty dressing or bathing Yes 06/19/2024 6:07 PM Dian Khan RN Yes [facility] 06-19-2024 Because of a physica l, mental, or emotional condition, do you have difficulty doing errands alone such as visiting a physician's office or shopping Yes 06/19/2024 6:07 PM Dian Khan RN Yes [facility] 03-06-2024 Are you deaf, or do you have serious difficulty hearing No 03/06/2024 2:27 PM Lisette Coyle RN No [facility] 03-06-2024 Are you blind, or do you have serious difficulty seeing, even when wearing glasses No 03/06/2024 2:27 PM Lisette Coyle RN No [facility] 03-06-2024 Do you have serious difficulty walking or climbing stairs No 03/06/2024 2:27 PM Lisette Coyle RN No [facility] 03-06-2024 Do you have difficul ty dressing or bathing No 03/06/2024 2:27 PM Lisette Coyle RN No [facility] 03-06-2024 Because of a physica l, mental, or emotional condition, do you have difficulty doing errands alone such as visiting a physician's office or shopping No 03/06/2024 2:27 PM Lisette Coyle RN No [facility] Mental Status Date Assessment Result Facility 06-19-2024 Because of a physica l, mental, or emotional condition, do you have serious difficulty concentrating, remembering, or making decisions Yes 06/19/2024 6:07 PM Dian Khan RN Yes [facility] 03-06-2024 Because of a physica l, mental, or emotional condition, do you have serious difficulty concentrating, remembering, or making decisions No 03/06/2024 2:27 PM Lisette Coyle RN No [facility] 09-07-2021 Cognitive function Voice/Name [facility] Work Phone: Clinical Notes 06-01-2022 to 01-06-2025 Telephone Encounter - Francisca Kuhn RN - 01/04/2025 4:35 PM ESTTelephone Encounter - Francisca Kuhn RN - 01/04/2025 4:35 PM Chelle Vincent - 11/06/2024 8:51 AM EDT Note Date & Type Note Facility 01-06-2025 Note HNO ID: [id number] Author: ELPIDIO BOLIVAR RPh Service: Pharmacy Author Type: Pharmacist Type: Plan of Care Filed: 01/06/2025 12:36 Note Text: PHARMACY MEDICATION REVIEW Patient Name: Joss Oropeza : 1945 The following medications were updated within the 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 medication list: Medications ADDED to 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 medication list none Medications CHANGED on 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 medication list none Medications REMOVED from 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 medication list none Additional comments: Patient transferred from [facility]. Has been admitted for >72 hrs - medications titrated to clinical course. Reviewed pharmacy dispense history The below information represents the best possible medication history: Yes Medication history completed by: Pharmacist: Elpidio Bolivar RPh Source of history: Pharmacy records: dispense history and [facility] records Medication nonadherence identified: Unable to assess Reconciliation completed: Yes Completed by: Elpidio Bolivar RPh All 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 medications addressed by LIP Patient interested in Bedside Delivery Services or using OP Pharmacy at discharge? Unable to assess Preferred outpatient pharmacy: - [facility] [address] [place] [phone] [facility] [phone] [place] [address] [facility] Allergies: Maxipime [Cefepime] Unknown Prior to Admission Medications Prescriptions Last Dose Informant Patient Reported? Taking? BASAGLAR KWIKPEN U-100 INSULIN 100 unit/mL (3 mL) No Yes Sig: Inject 35 Units subcutaneously every morning. BD CRISTAL 2ND GEN PEN NEEDLE 32 gauge x 5/32 Yes No MEN'S MULTI-VITAMIN ORAL Yes Yes Sig: Take 1 tablet by mouth. alendronate (FOSAMAX) 70 mg tablet Yes Yes Sig: Take 70 mg by mouth one time a week. In AM with cup of water on empty stomach. Nothing else by mouth and stay upright for 30 min. aspirin 81 mg chewable tablet Yes Yes Sig: Take 81 mg by mouth once daily. cyanocobalamin (VITAMIN B-12) 1,000 mcg tab Yes Yes Sig: Take 1,000 mcg by mouth once daily. deferasirox (JADENU) 360 mg tab No Yes Sig: Take 4 tablets (1440mg) by mouth once daily. Take on an empty stomach. finasteride (PROSCAR) 5 mg tablet Yes Yes Sig: Take 5 mg by mouth daily at bedtime. glimepiride (AMARYL) 4 mg tablet No Yes Sig: Take 1 tablet by mouth two times a day with meals. guaiFENesin (MUCINEX) 600 mg 12 hr tablet No Yes Sig: Take 2 tablets by mouth every 12 hours. lidocaine-prilocaine (EMLA) 2.5-2.5 % cream No No Sig: Apply to anticipated injection site 30 minutes before injection rosuvastatin (CRESTOR) 10 mg tablet No Yes Sig: Take 1 tablet by mouth daily at bedtime. tamsulosin (FLOMAX) 0.4 mg Yes Yes Sig: Take 0.4 mg by mouth once daily. Facility-Administered Medications: None Elpidio Bolivar [facility] 01/06/2025 [facility] 01-06-2025 Note HNO ID: [id number] Author: ALMITA CARR MD Service: Hospital Medicine Author Type: Physician Type: Progress Notes Filed: 01/06/2025 20:51 Note Text: INTERNAL MEDICINE PROGRESS NOTE SERVICE DATE: 01/06/2025 SERVICE TIME: 11:17 AM ADMITTING PHYSICIAN: Almita Carr MD Subjective CHIEF COMPLAINT: cough Current Facility-Administered Medications Medication Dose Route Frequency sodium chloride 7% solution 4 mL INHALATION ONLY 4 mL INHALATION BID ipratropium-albuterol 3 mL nebulizer solution (DUONEB) 3 mL INHALATION QID guaiFENesin-dextromethorphan 100-10 mg/5 mL 10 mL oral liquid (ROBITUSSIN DM) 10 mL ORAL q 4 H PRN aspirin 81 mg chewable tab(s) 81 mg ORAL DAILY rosuvastatin 10 mg tab(s) (CRESTOR) 10 mg ORAL AT BEDTIME insulin glargine 35 Units pen (long acting) 35 Units SUBCUTANEOUS DAILY (9 AM) glimepiride 4 mg tab(s) (AMARYL) 4 mg ORAL BID w MEALS guaiFENesin 1,200 mg ER tab(s) (MUCINEX) 1,200 mg ORAL q 12 H deferasirox tab 1,440 mg 1,440 mg ORAL DAILY finasteride 5 mg tab(s) (PROSCAR) 5 mg ORAL AT BEDTIME tamsulosin 0.4 mg cap(s) (FLOMAX) 0.4 mg ORAL DAILY dextrose 40 % 15 g 15 g ORAL PRN Or glucagon 1 mg injection 1 mg INTRAMUSCULAR PRN Or dextrose 10% iv bolus 12.5 g INTRAVENOUS PRN NaCl 0.9% iv flush bag 20 mL INTRAVENOUS PRN acetaminophen 650 mg tab(s) (TYLENOL) 650 mg ORAL q 6 H PRN miconazole 2 % 1 application topical powder 1 application TOPICAL BID piperacillin-tazobactam iv piggyback 3.375 g in dextrose (iso-osmotic) 50 mL (ZOSYN) 3.375 g INTRAVENOUS q 6 H NaCl 0.9% iv infusion 75 mL/hr INTRAVENOUS CONTINUOUS insulin lispro injection (rapid acting) (ADMElog) SUBCUTANEOUS w MEALS INTERVAL HISTORY OF PRESENT ILLNESS: pt doing ok today still with a cough. His hemoglobin is low and he is getting transfused 2 units of PRBC's Objective PHYSICAL EXAM: Patient Vitals for the past 24 hrs: BP Temp Temp src Pulse Resp SpO2 01/06/25 1107 143/67 36.6 ?C (97.9 ?F) Oral 81 17 94 % 01/06/25 1048 134/64 36.9 ?C (98.5 ?F) Oral 79 16 94 % 01/06/25 0734 142/66 36.9 ?C (98.4 ?F) Oral 83 12 95 % 01/06/25 0717 -- -- -- 81 16 94 % 01/05/25 2318 130/57 36.4 ?C (97.5 ?F) Oral 93 19 93 % 01/05/25 1950 -- -- -- 84 16 -- 01/05/251934 -- -- -- 80 16 -- 01/05/25 193 115/62 36.6 ?C (97.9 ?F) Oral 82 18 97 % 01/05/25 1709 112/53 36.8 ?C (98.2 ?F) Oral 85 18 98 % 01/05/25 1533 -- -- -- 18 -- 01/05/25 1520 -- -- -- 16 -- 01/05/25 1206 -- -- -- 86 16 100 % 01/05/25 1151 -- -- -- 85 16 95 % Body mass index is 30.71 kg/m?. GENERAL: Alert, no distress, cooperative SKIN: Skin color, texture, turgor normal. No rashes or lesions. OROPHARYNX: Lips, mucosa, and tongue are normal.Teeth and gums, normal. Oropharynx normal. NECK: No jugulovenous distention, No carotid bruits, Carotid pulse normal contour, Supple LUNGS: diminished at the bases with crackles CARDIAC: Normal S1 and S2; no rubs, murmurs, or gallops ABDOMEN: Abdomen soft, non-tender, BS normal, No masses or organomegaly EXTREMITIES: Extremities normal, no deformities, edema, clubbing or skin discoloration. Good capillary refill., No ulcers NEURO: Alert, oriented X 3, Gait normal. Non-focal. Reflexes normal and symmetric. Sensation grossly intact., Cranial nerves II-XII intact PULSES: 2+ radial, 2+ carotid DATA: Diagnostic tests reviewed for today's visit: Most recent labs and imaging results. Assessment AND Plan Sepsis (HCC) Present on Admission: Yes Anemia Present on Admission: Yes Type 2 diabetes mellitus, with long-term current use of insulin (HCC) Present on Admission: Yes Dyslipidemia Present on Admission: Yes BPH (benign prostatic hyperplasia) Present on Admission: Yes Pancytopenia (HCC) Present on Admission: Yes H/O: stroke Present on Admission: Yes Multifocal pneumonia Present on Admission: Yes Elevated lactic acid level Present on Admission: Yes Aspiration into airway Present on Admission: Status not on file Plan Cont current antibiotics Cont pulm toilet MBS to be done Transfuse 2 units of prbc's today Medication and Non-Pharmacologic VTE Prophylaxis/Anticoagulants Anticoagulant AND Antiplatelet Medications (From admission, onward) Start Dose Route Frequency Last Action Ordered Stop 01/05/25 0900 aspirin 81 mg chewable tab(s) 81 mg PO DAILY Given, 01/06 0848 01/04/25 2304 -- 01/04/25 2315 pneumatic compression sleeve(s) (hi,tn) 01/04/25 231 activity - mobilize patient ([place]) VTE Prophylaxis: VTE prophylaxis appropriate SIGNATURE: Almita Carr MD PATIENT NAME: Joss Oropeza DATE: January 06, 2025 TIME: 11:17 AM [facility] 01-06-2025 Note HNO ID: [id number] Author: SHANNON CEDENO RN Service: Care Management Author Type: Registered Nurse Type: Care Mgt Progress Note Filed: 01/06/2025 10:07 Note Text: CARE MANAGEMENT PROGRESS NOTE SERVICE DATE: 01/06/2025 SERVICE TIME: 10:02 AM LOS: 2 days 01/04/25 Admission Hospital Consults: Pulmonary. ST. O2: room air Diet: carbohydrate control IV antibiotic: zosyn IV fluids Discharge Plan: Home Discharge Transportation: Family Needs Prior to Discharge: To Be Determined PCP: German Robertson MD - Discharge Pharmacy Preference: [facility] Dept to Follow. SIGNATURE: Shannon Cedeno RN PATIENT NAME: Joss Oropeza DATE: January 06, 2025 TIME: 10:02 AM [facility] 01-05-2025 Note HNO ID: [id number] Author: HINA PONCE RN Service: Care Management Author Type: Registered Nurse Type: Care Mgt Initial Assessment Filed: 01/05/2025 11:45 Note Text: CARE MANAGEMENT: ASSESSMENT AND DISCHARGE PLAN SERVICE DATE: January 05, 2025 SERVICE TIME: 11:44 AM PCP: German Robertson MD Primary Contact: Extended Emergency Contact Information Primary Emergency Contact: Gracia Worthy Mobile Relation: Daughter Secondary Emergency Contact: Won Oropeza Mobile Relation: Son Admission Status: Inpatient Insurance Provider: [employer] MEDICARE PPO Discharge Planning requested by: Per Department Practice Potential Transition Plans Home Advance Directives Current Advance Directive: None Page Technician Attempted to Assist with AD Completion: Yes Action: Patient Unwilling Current Living Arrangements and Support Lives with: Spouse/significant other Type of Residence: Private Residence (House) Does the patient have to climb stairs at home?: Yes, stairs outside the home, stairs within the home Support: Spouse/significant other, Children How do you manage to accomplish the following: Independent: Ambulation, Bathe/Shower, Dress, Meals/Meal Prep, Going to the bathroom, Medication Management, Transportation to appointments/community Current Services/Equipment Current Post-Acute Service(s): DME Current DME Type: Walker Discharge Planning Patient Goal(s): General wellness [place] of Choice Explained: [place] of Choice Given: No Reason Not Given: No placements necessary Are you interested in bedside delivery of your medications? No, [facility] in [place] Discharge Planning Participant(s): Patient Patient/Family Comments: Caregiver Assessment: Caregiver is ready, willing and able to meet the patient's needs as recommended by the inter-professional team: No Caregiver needed Transport at Discharge: Transportation Arrangements: Car Needs Prior to Discharge: Needs Prior to Discharge: Other: See Comment (medical clearance) Post-Acute Discharge Plan: EMR reviewed. Patient admitted with pneumonia and sepsis. RNCM spoke to patient to complete assessment. Patient from home with , 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, drives. One of his children will transport upon DC. CM assigned will continue to follow for DC planning needs. SIGNATURE: Hina Ponce RN PATIENT NAME: Joss Oropeza DATE: January 05, 2025 TIME: 11:44 AM [facility] 01-04-2025 Note HNO ID: [id number] Author: JOANNA HERRERA APRN.CNP Service: General Internal Medicine Author Type: Nurse Practitioner Type: Progress Notes Filed: 01/05/2025 01:21 Note Text: Admission Examination SERVICE DATE: 01/04/2025 SERVICE TIME: 2249 PCP: German Robertson MD PRIMARY ATTENDING: Almita Araya MD Subjective CHIEF COMPLAINT: Transferred from [facility] for inpatient pulmonology evaluation HPI: Patient is a 79 year old male with a past medical history of MDS, iron overload, pancytopenia, DM2, HLD and CVA who was transferred from [facility] for inpatient pulmonology evaluation. Patient presented to [facility] for persistent cough with associated midsternal chest pain. On presentation, he was found to be septic with tachycardia, hypoxia, leukopenia, and elevated lactate 2.4. He is being treated for pneumonia, initially with doxycycline and levaquin, now on Zosyn. His symptoms have not improved, still with elevated lactate despite antibiotics and IVF. Patient was discussed with medical coder, Dr. Carrillo, who recommended transfer for inpatient evaluation and possible bronchoscopy. Of note, patient recently admitted to [facility] 12/19/24 - 12/21/24 for hyponatremia and acute on chronic anemia. Received blood transfusion and treated for upper respiratory infection with doxycycline and azithromycin. On assessment, patient resting in bed. Continues to report persistent cough with clear sputum. Denies any further chest pain. Reports having low grade fevers at [facility]. Denies any shortness of breath, palpitations, N/V/D/C, urinary symptoms or chills. Code status discussed and patient wishes to be a FULL code. History provided by: patient and EMR FUNCTIONAL STATUS: Independent PAST MEDICAL HISTORY Diagnosis Date Cancer of unknown origin (HCC) 12/11/2022 Diabetes (HCC) Dyslipidemia Heart murmur Rheumatic fever Stroke (cerebrum) ([facility]) 06/24/2020 PAST SURGICAL HISTORY Procedure Laterality [...] Onset Stroke Mother Ischemic Heart Disease Father SOCIAL HISTORY[1] I have confirmed and edited as necessary, the PFSH obtained by others. ALLERGIES Allergen Reactions Maxipime [Cefepime] Unknown Prior to Admission Medications Prescriptions Last Dose Informant Patient Reported? Taking? BASAGLAR KWIKPEN U-100 INSULIN 100 unit/mL (3 mL) No Yes Sig: Inject 35 Units subcutaneously every morning. BD CRISTAL 2ND GEN PEN NEEDLE 32 gauge x Yes No MEN'S MULTI-VITAMIN ORAL Yes Yes Sig: Take 1 tablet by mouth. alendronate (FOSAMAX) 70 mg tablet Yes Yes Sig: Take 70 mg by mouth one time a week. In AM with cup of water on empty stomach. Nothing else by mouth and stay upright for 30 min. aspirin 81 mg chewable tablet Yes Yes Sig: Take 81 mg by mouth once daily. cyanocobalamin (VITAMIN B-12) 1,000 mcg tab Yes Yes Sig: Take 1,000 mcg by mouth once daily. deferasirox (JADENU) 360 mg tab No Yes Sig: Take 4 tablets (1440mg) by mouth once daily. Take on an empty stomach. finasteride (PROSCAR) 5 mg tablet Yes Yes Sig: Take 5 mg by mouth daily at bedtime. glimepiride (AMARYL) 4 mg tablet No Yes Sig: Take 1 tablet by mouth two times a day with meals. guaiFENesin (MUCINEX) 600 mg 12 hr tablet No Yes Sig: Take 2 tablets by mouth every 12 hours. lidocaine-prilocaine (EMLA) 2.5-2.5 % cream No No Sig: Apply to anticipated injection site 30 minutes before injection rosuvastatin (CRESTOR) 10 mg tablet No Yes Sig: Take 1 tablet by mouth daily at bedtime. tamsulosin (FLOMAX) 0.4 mg Yes Yes Sig: Take 0.4 mg by mouth once daily. Facility-Administered Medications: None REVIEW OF SYSTEMS: GENERAL: No weight loss, malaise, fevers, or chills. HEENT: Negative for frequent or significant headaches. No changes in hearing or vision. RESPIRATORY: Negative for hemoptysis, wheezing, or shortness of breath. + for cough CARDIOVASCULAR: Negative for chest pain, leg swelling, or palpitations. GI: Negative for abdominal pain, decreased appetite, nausea, vomiting, diarrhea or constipation. : Negative for dysuria, hematuria, frequency, or urgency. MUSCULOSKELETAL: Negative for joint pain or swelling. Negative for back pain or muscle pain. Negative for motor deficits. SKIN: Negative for lesions, rashes, or itching. NEURO: Negative for headaches, weakness, numbness/tingling, or seizures. PSYCH: Negative for sleep disturbance, mood dis (more content not included)... [facility] 01-04-2025 Telephone encounter Note Brianne Tolentino with [facility] calling for Dr. Carr regarding transfer of patient from [place] to [place]. R- Message sent to Dr. Carr via Secure Chat, she acknowledged receipt of message. [facility] 01-04-2025 Miscellaneous Notes Rodolfo- Rajan with [facility] calling for Dr. Carr regarding transfer of patient from [place] to [place]. R- Message sent to Dr. Carr via Secure Chat, she acknowledged receipt of message. documented in this encounter [facility] 01-03-2025 Note [facility] 01-02-2025 Note [facility] 01-02-2025 Note [facility] 01-01-2025 Note SARS-COV-2 (AGENT OF COVID-19) RNA: Not detected INFLUENZA A RNA: Not detected INFLUENZA B RNA: Not detected RESPIRATORY SYNCYTIAL VIRUS (RSV) RNA: Not detected [facility] Comment on above: Performed By: #### 9 5941-1 ####[facility] LAB[facility] [id number] [address]#### [address]-2 ####[facility] [id number] [address] OF [facility] 01-01-2025 Note HNO ID: [id number] Author: ANNIE FRANK MD Service: ? Author Type: Physician Type: Progress Notes Filed: 01/01/2025 17:02 Note Text: I have communicated my name and active licensure. The patient's identity and physical location were verified at the time of this visit. Either the patient or their legal operations support representative has been informed of the risks and benefits of -- and alternatives to -- treatment through a remote evaluation and consents to proceed with the evaluation remotely. Visit was conducted via Audio-only Patient Location: Patient Home or Place of Residence Primary Hematology/Oncology: Dr Vicenta AlarconAnthony Hematology/Oncology Diagnosis: Myelodysplastic syndrome (MDS), diagnosed ~April 2022 after presentation with anemia Treatment history for MDS: - Luspatercept dose increased to 1.75 mg/kg, Day 1 03/08/23, discontinued 06/30/24 for lack of response - Imetelstat (Rytelo) Day 1 01/10/24, discontinued 06/30/24 for lack of response. 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 Oropeza is a 79 year old male who presented to ER on 05/22/22 for anemia after this was noted by primary care. Patient states he was 6.7 at PCP office and 6.0 at [facility]. No overt GI bleeding, no blood or darker stool, no weight loss, no abdominal pain, no issues swallowing, and no issues with constipation or diarrhea. Reports several colonoscopies in the past with Dr. Hernandez in [place], last done July 2021 that had one polyp removed. Remote EGD. No NSAID use besides ASA 81 mg, no blood thinners, no smoking, and only rare alcohol use. Taking insulin daily. Just had it doubled to 25 units per day. Has made some progress getting to <200. - 03/11/24 glucose level of 219. - 03/06/24 glucose level 216. - 03/05/24 glucose level 255. At this time - Very fatigued, able to get around the home - Has trouble getting around also because of back pain (recently injured his back) - Sleeps through the night in an electric lift chair, sleeps lying flat, has to get up frequently to urinate - No PND - Not on oxygen - Appetite is good - No fevers - No drenching night sweats - No infections, no pneumonias, has not required antibiotics - No chemotherapy or radiation - Never smoked - Drinks ETOH only on occasions - No abdominal pains - No bleeding from the gums or nose - No blood in the stool - No melena PAST MEDICAL HISTORY Diagnosis Date Cancer of [...] NEGATIVE TONSILLECTOMY PRIMARY/SECONDARY Tonsillectomy Current Outpatient Medications Medication Sig IFTIKHAR VAZQUEZ U-100 INSULIN 100 unit/mL (3 mL) Inject 30 Units subcutaneously every morning. lidocaine-prilocaine (EMLA) 2.5-2.5 % cream Apply to anticipated injection site 30 minutes before injection deferasirox (JADENU) 360 mg tab Take 4 tablets (1440mg) by mouth once daily. Take on an empty stomach. amLODIPine (NORVASC) 5 mg tablet Take 1 tablet by mouth once daily. aspirin 81 mg chewable tablet Take 81 mg by mouth once daily. BD CRISTAL 2ND GEN PEN NEEDLE 32 gauge x 32 glimepiride (AMARYL) 4 mg tablet Take 4 [...] facility-administered medications for this visit. ALLERGIES Allergen Reacti (more content not included)... [facility] 01-01-2025 Note [facility] 12-30-2024 Note [facility] 12-19-2024 Note [facility] 12-19-2024 Note SARS-COV-2 (AGENT OF COVID-19) RNA: Not detected INFLUENZA A RNA: Not detected INFLUENZA B RNA: Not detected RESPIRATORY SYNCYTIAL VIRUS (RSV) RNA: Not detected [facility] Comment on above: Performed By: #### 9 5941-1 ####[facility] LABCLIA [id number] [place] [address] [facility] 12-17-2024 Note [facility] 12-16-2024 Note HNO ID: [id number] Author: MELBA MILLER RN Service: ? Author Type: Registered Nurse Type: Progress Notes Filed: 12/16/2024 15:48 Note Text: Pt aware he will need transfusion tomorrow. Appt in [place] at 1:30. Pt aware. [facility] 12-16-2024 Note [facility] 12-10-2024 Note [facility] 12-07-2024 Note HNO ID: [id number] Author: ?, ?, ? Service: ? Author Type: ? Type: Progress Notes Filed: 12/28/2024 10:24 Note Text: Unable to reach patient for refill of Deferasirox after 4+ call attempts. Pt last refilled medication on 11/13/24. Will schedule future follow-up in 2 weeks from today's date. Office will be updated if future attempts are unsuccessful. Chelle Orlando [facility] 12-02-2024 Note [facility] 11-26-2024 Note [facility] 11-18-2024 Note [facility] 11-13-2024 Note HNO ID: [id number] Author: ANNIE FRANK MD Service: ? Author Type: Physician Type: Progress Notes Filed: 11/13/2024 15:50 Note Text: Primary Hematology/Oncology: Dr Vicenta Noriega Hematology/Oncology Diagnosis: Myelodysplastic syndrome (MDS), diagnosed ~April 2022 after presentation with anemia Treatment history for MDS: - Luspatercept dose increased to 1.75 mg/kg, Day 1 03/08/23, discontinued 06/30/24 for lack of response - Imetelstat (Rytelo) Day 1 01/10/24, discontinued 06/30/24 for lack of response. 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 Oropeza is a 79 year old male who presented to ER on 05/22/22 for anemia after this was noted by primary care. Patient states he was 6.7 at PCP office and 6.0 at [facility]. No overt GI bleeding, no blood or darker stool, no weight loss, no abdominal pain, no issues swallowing, and no issues with constipation or diarrhea. Reports several colonoscopies in the past with Dr. Hernandez in [place], last done July 2021 that had one polyp removed. Remote EGD. No NSAID use besides ASA 81 mg, no blood thinners, no smoking, and only rare alcohol use. Taking insulin daily. Just had it doubled to 25 units per day. Has made some progress getting to <200. - 03/11/24 glucose level of 219. - 03/06/24 glucose level 216. - 03/05/24 glucose level 255. At this time - Very fatigued, able to get around the home - Has trouble getting around also because of back pain (recently injured his back) - Sleeps through the night in an electric lift chair, sleeps lying flat, has to get up frequently to urinate - No PND - Not on oxygen - Appetite is good - No fevers - No drenching night sweats - No infections, no pneumonias, has not required antibiotics - No chemotherapy or radiation - Never smoked - Drinks ETOH only on occasions - No abdominal pains - No bleeding from the gums or nose - No blood in the stool - No melena PAST MEDICAL HISTORY Diagnosis Date Cancer of [...] NEGATIVE TONSILLECTOMY PRIMARY/SECONDARY Tonsillectomy Current Outpatient Medications Medication Sig deferasirox (JADENU) 360 mg tab Take 4 tablets (1440mg) by mouth once daily. Take on an empty stomach. oxycodone HCl/acetaminophen (PERCOCET ORAL) Take by mouth. (Patient not taking: Reported on 07/15/2024) tramadol HCl (ULTRAM ORAL) Take by mouth. (Patient not taking: Reported on 07/15/2024) polyethylene glycol 3350 17 gram packet Take 1 packet by mouth once daily. Dissolve dose in 4 - 8 ounces of liquid and take as directed. (Patient not taking: Reported on 07/15/2024) amLODIPine (NORVASC) 5 mg tablet Take 1 tablet by mouth once daily. aspirin 81 mg chewable tablet Take 81 mg by mouth once daily. BASAGLAR GEORGE U-100 INSULIN 100 unit/mL (3 mL) Inject [...] Comment: social/rare Drug use: No Review of S (more content not included)... [facility] 11-11-2024 Note [facility] 11-11-2024 Note HNO ID: [id number] Author: DANISHA SCHWARTZ RN Service: ? Author Type: Registered Nurse Type: Progress Notes Filed: 11/11/2024 14:41 Note Text: Verified procrit dose with pharmacist Talha. [facility] 11-06-2024 History of Present illness Narrative [facility] received prescription(s) for Deferasirox from Dr. Noriega's office. Benefits investigation was conducted, indicating that a prior authorization is required by patient's insurance plan with [employer]are. Encounter will be updated once prior authorization has been submitted by [facility]. [place]le [place] [facility] Oncology P: [phone] F: [phone] documented in this encounter [facility] 11-06-2024 Note HNO ID: [id number] Author: ?, ?, ? Service: ? Author Type: ? Type: Progress Notes Filed: 11/06/2024 08:54 Note Text: [facility] received prescription(s) for Deferasirox from Dr. Noriega's office. Benefits investigation was conducted, indicating that a prior authorization is required by patient's insurance plan with [employer]/Med[employer]are. Encounter will be updated once prior authorization has been submitted by [facility]. Chelle Orlando [facility] Oncology P: [phone] F: [phone] [facility] 11-06-2024 Note HNO ID: [id number] Author: MAUDE AGUILAR [facility] Service: ? Author Type: Pharmacist Type: Progress Notes Filed: 11/12/2024 14:41 Note Text: [facility] received prescription(s) for Deferasirox (Jadenu) from Dr. Noriega's office. Benefits investigation was conducted, indicating that a prior authorization is required. NORA was approved with details listed below: Plan Name: León PA reference number: [id number] Approval Dates: 02/26/24 - 02/24/25 Pt's copay is $187.01. Shipment has been arranged, and pt will receive medication(s) on 11/16/24. Pt has been instructed to follow-up with clinic to confirm start date. A full drug interaction report was conducted, and noted category C interaction with alendronate - may increase ADEs of deferasirox (specifically GI ulceration / irritation risk) - monitor. I reviewed with Joss appropriate dose and dosing frequency, administration directions (Take 4 tabs (1440mg) by mouth daily on empty stomach), potential side effects, ability to self-administer and proper storage and handling requirements. S/he expressed understanding of the information we provided today, and received our contact information for the pharmacy if s/he had any other questions. Office/provider notes have been reviewed prior to dispensing the medication. 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 Take on an empty stomach. oxycodone HCl/acetaminophen (PERCOCET ORAL) Take by mouth. (Patient not taking: Reported on 07/15/2024) tramadol HCl (ULTRAM ORAL) Take by mouth. (Patient not taking: Reported on 07/15/2024) polyethylene glycol 3350 17 gram packet Take 1 packet by mouth once daily. Dissolve dose in 4 - 8 ounces of liquid and take as directed. (Patient not taking: Reported on 07/15/2024) amLODIPine (NORVASC) 5 mg tablet Take 1 tablet by mouth once daily. aspirin 81 mg chewable tablet Take 81 [...] facility-administered medications on file prior to visit. ALLERGIES Allergen Reactions Maxipime [Cefepime] Unknown Problem List Noted Noted By Resolved Resolved By Aftercare 06/09/2024 Chelle Reyes, PADILLA.MEDICAL RECORD LIBRARIAN No Intractable back pain 06/06/2024 Maureen Langley, No History of stroke 06/03/2024 Jimenez Pérez PA-C No Acute midline low back pain without sciatica 06/03/2024 Jimenez Pérez PA-C No Acute bilateral low back pain without sciatica 06/03/2024 Jimenez Pérez PA-C No Symptomatic anemia 03/05/2024 Chelle Reyes, DIRECTOR STARS.MEDICAL RECORD LIBRARIAN No Myelodysplastic syndrome, unspecified (HCC) 07/24/2023 Vicenta Noriega MD No BPH (benign prostatic hyperplasia) 06/09/2023 Her, Franklyn, DIRECTOR STARS.MEDICAL RECORD LIBRARIAN No Expressive aphasia 06/09/2023 Her, Franklyn, DIRECTOR STARS.MEDICAL RECORD LIBRARIAN No TIA (transient ischemic attack) 06/08/2023 Her, Franklyn, DIRECTOR STARS.MEDICAL RECORD LIBRARIAN No Thrombocytopenia 01/22/2023 Vicenta Noriega MD No Cancer of unknown origin (HCC) 12/11/2022 Garry Jameson [facility] No Obesity, Class I, BMI 30-34.9 05/26/2022 Neo Argueta MD No Anemia 05/22/2022 Alice Navarro DIRECTOR STARS.MEDICAL RECORD LIBRARIAN No Diabetes (HCC) 05/22/2022 Alice Navarro DIRECTOR STARS.MEDICAL RECORD LIBRARIAN No Dyslipidemia 05/22/2022 Alice Navarro DIRECTOR STARS.MEDICAL RECORD LIBRARIAN No Weakness 06/12/2021 SheetsShannon C, DO No Pneumonia 06/11/2021 SheetsShannon C, DO No 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 Alice Navarro APRN.MEDICAL RECORD LIBRARIAN No Diastasis recti 01/03/2013 Manuel Marley MD No 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 [facility] 11-06-2024 Note HNO ID: [id number] Author: MAUDE AGUILAR glenn Service: ? Author Type: Registered Nurse Type: Progress Notes Filed: 11/12/2024 10:18 Note Text: [facility] received prescription(s) for deferasirox from Dr. Noriega's office. PA was approved with details listed below. Plan Name: [employer] Plan Agent/[place]: [id number] Phone/ [place] reference number: [id number] Approval Dates: 02/26/24 - 02/24/25 Prescriptions will now be processed through [facility] for determination of next steps. FAZAL Duarte RN Addendum November 12, 2024 10:02 AM : The first copay is high (>$187) due to the $2000 maximum out of pocket limit or cap on prescription drug expenses. It is estimated that the patient's copays will be somewhat similar until (s)he meets the cap after which future fills are expected to be ~$0 monthly thereafter. There is no funding available for patient's diagnosis at this time (including grants and patient assistance), therefore alternative options will be discussed. The new M3P program will also be discussed as appropriate for patients eligible as an additional option to pursue. [[facility] is open for MDS but does not provide coverage for jadenu] Maude Aguilar, ShaniceD Clinical Pharmacist, Oncology [facility] P: , F: Pool: P [facility] Pool #: [id number] [facility] 11-04-2024 Note [facility] 11-04-2024 Miscellaneous Notes Addended by: IRIS TOMLINSON on: 11/04/2024 04:04 PM Modules accepted: Orders documented in this encounter [facility] 11-04-2024 Note Addended by: IRIS OJEDA on: 11/04/2024 04:04 PM Modules accepted: Orders [facility] 10-28-2024 Note [facility] 10-28-2024 History of Present illness Narrative Pt arrived per self. Appears fatigued. Pt states he is feeling extremely weak. VSS. Sob with exertion noted. procrit given as ordered. Pt tolerated well, pt will have next weeks dose at . Scheduled reviewed, no questions at this time. Pt ambulated to [facility]. documented in this encounter [facility] 10-21-2024 Note [facility] 10-21-2024 History of Present illness Narrative Pt arrived, well-appearing, steady gate. Some sob after ambulating from waiting room, resolves at rest. VSS. Pt denies recent fever, chills, cold/flu-like symptoms. PIV started, IV fluids started. PRBCs started per order. Pt verbalizes understanding of RN instruction to notify if he experiences any sob, chest pain, back pain, chills, or any discomfort. Procrit injection given per order. Transfusion complete. Pt tolerated well. VSS. PIV removed without complications. Plan reviewed, pt denies needs. Pt exited to [facility], steady gate. documented in this encounter [facility] 10-14-2024 Note [facility] 10-14-2024 History of Present illness Narrative Pt arrived to Infusion per self. Appears well. VSS. Procrit given as ordered. Pt tolerated well. Denies questions or needs. Pt ambulated to [facility], no concerns. documented in this encounter [facility] 10-08-2024 Note [facility] 10-08-2024 History of Present illness Narrative Pt arrived per self in stable condition. VSS. PIV started. Pt assessment WNL, denies fever, chills, cough or cold symptoms. RBC's up as ordered, pt verbalized understanding to notify Rn of sob, chest pain, chills, back pain. Will monitor. Transfusion complete. VSS, no S&S of reaction. PIV removed intact. Pt ambulated to [facility] no concerns. documented in this encounter [facility] 10-07-2024 Note [facility] 10-07-2024 History of Present illness Narrative Joss Oropeza 1945 October 07, 2024 HPI: Joss Oropeza is a 79 year old male who presents as a hospital follow up. Mr. Oropeza is a 79 year old male who presented to ER on 05/22/22 for anemia. This is a 79 year old male who presented with for low hgb from primary care office. Patient states he was 6.7 at PCP office and 6.0 at [facility]. PMHx of chronic anemia (baseline [...] in the past with Dr. Hernandez in [place], last done July 2021 that had one [...] Does get some therapy and transfusions at [facility] closer to home. Remains on Rytelo per scheduling. Taking insulin daily. Just had it doubled to 25 units per day. Has made some progress getting to <200. - 03/11/24 glucose level of 219. - 03/06/24 glucose level 216. - 03/05/24 glucose level 255. Interval history: Today he is here with his family for follow up and TOAN injection. Getting 1 unit PRBC tomorrow. Met with Dr. Frank and notes reviewed. Epo today. Fatigued. Back ache. Feels different from back pain. Had his shots from [facility]. Needs an ablation but needs to get his 2nd set of shots. Just recently received those. Doing ok today. No major changes. PAST MEDICAL HISTORY Diagnosis [...] Current Outpatient Medications Medication Sig Dispense Refill oxycodone HCl/acetaminophen (PERCOCET ORAL) Take by mouth. (Patient not taking: Reported on 07/15/2024) 0 tramadol HCl (ULTRAM ORAL) Take by mouth. (Patient not taking: Reported on 07/15/2024) polyethylene glycol 3350 17 gram packet Take 1 packet by mouth once daily. Dissolve dose in 4 - 8 ounces of liquid and take as directed. (Patient not taking: Reported on 07/15/2024) amLODIPine (NORVASC) 5 mg tablet Take 1 tablet by mouth once daily. 90 tablet aspirin 81 mg chewable tablet Take 81 mg by mouth once daily. BASAGLAR AUGUSTINEPEN U-100 INSULIN 100 unit/mL (3 mL) Inject [...] PSHx, social history and ROS on October 07, 2024 - all new information noted. [...] have performed the physical exam on October 07, 2024 - all new findings noted below. Physical Exam: Trending of last 3 clinical abnormalities associated with Severe Sepsis or Septic Shock 09/30/2024 1330 09/30/2024 1444 10/07/2024 1442 Temp: 37.2 C (99 F) 37 C (98.6 F) 36.4 C (97.5 F) Pulse: 83 72 111 Resp: 18 18 -- BP: 135/63 141/65 133/55 O2 Sat: 98 % 99 % 99 % Last Wt 10/07/24 : 101.3 kg (223 lb 5.2 oz) 09/23/24 : 96.3 kg (212 lb 4.9 oz) 09/09/24 : 98.8 kg (217 lb 13 oz) 08/05/24 : 98 kg (216 lb) 07/21/24 : 99.3 kg (219 lb) Last 1 Encounter Ht Readings: Date: Ht: 09/23/2024 175 cm (5' 8.9) ECOG PS: 1 Pain Intensity: 0/10 General: [...] coping or adjustment. Labs CBC: Recent Labs 10/07/24 1421 10/06/24 1151 WBC 5.39 4.55 HB 7.0* 7.1* HCT 20.8* 21.1* PLT 86* 90* MCV 90.4 90.2 RDWCV 14.1 14.2 NEUTP 52.2 55.7 ABSNEUT 2.82 2.53 LYMPHP 39.7 37.6 MONOP 7.1 5.9 EODINP 0.2 0.4 COAG: No results for input(s): APTT, INR in the last 168 hours. BMP: Recent Labs 10/06/24 1151 GLUC 283* NA 136 K 4.1 CHLOR 102 CO2 19* ANION 15 BUN 15 CREAT 0.78 CHEM: Recent Labs 10/06/24 1151 ALB 3.7* TPROT 7.0 CA 9.3 Lab Results Component Value Date MURRAY 2,924.0 (H) 10/06/2024 MURRAY 2,609.0 (H) 09/29/2024 MURRAY 1,130.0 (H) 01/10/2024 IRON Lab Results Component Value Date FE 225 (H) 10/06/2024 FE 242 (H) 09/29/2024 FE 225 (H) 01/10/2024 TIBC Lab Results Component Value Date TIBC <242 10/06/2024 TIBC <259 09/29/2024 TIBC 244 01/10/2024 FOLATE Lab Results Component Value Date FOLATE >20.0 05/23/2022 Lab Results Component Value Date RETICP 1.0 09/29/2024 RETICP 1.8 07/03/2022 ABSRETIC 0.020 09/29/2024 ABSRETIC 0.037 07/03/2022 MURRAY 2,924.0 (H) 10/06/2024 MURRAY 2,609.0 (H) 09/29/2024 MURRAY 1,130.0 (H) 01/10/2024 FE 225 (H) 10/06/2024 FE 242 (H) 09/29/2024 FE 225 (H) 01/10/2024 TIBC <242 10/06/2024 TIBC <259 09/29/2024 TIBC 244 01/10/2024 TRANSFERSAT >93.0 (H) 10/06/2024 TRANSFERSAT >93.4 (H) 09/29/2024 TRANSFERSAT 92.2 (H) 01/10/2024 Radiology: US Kidney 11/12/15: 1. Simple left [...] although this variant is rarely germline. 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 - Small population of clonal CD5 negative, CD10 negative B cells detected by flow cytometry. - Small distinct population of CD8 positive, CD16/CD56 T cells detected by flow cytometry. See report below. - Mildly increased polytypic plasma cells. - Increased stainable iron. - Mild (MF 1) reticulin fibrosis. - Peripheral blood normocytic anemia and thrombocytopenia. Per report from [facility], myeloid NGS demonstrated: RESULT SUMMARY Variants Detected Strong Clinical Significance Potential Clinical Significance 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 Bone marrow findings ([id number], June 2024) show normocellular marrow with dyserythropoiesis [...] clinical history, marrow morphology and cytogenetics (PMID: 69238823). Mutations in PPM1D are associated with prior exposure to DNA-damaging agents, and are present in a high percentage of cases of therapy related myeloid neoplasms (PMID: 08366507).These results should be interpreted in the context of the clinical and pathological findings for final evaluation. 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 Recommend clinical correlation. 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 - started on Luspatercept on 03/08/23 Received 06/30/24. - Started on Rytelo 01/10/24. Due again on 04/07/[address] to 5.6mg/kg C#6 completed on 06/30/24. Not sure this is helping anymore. This was d/c. - recommended repeat BM biopsy to see if anything had changed. Did not change per 07/21/24 marrow. - now trying Epo weekly to see if this works. Will try to increase dose with next shot. - needs PRBC today. 2) Macrocytic anemia - related to #1. 3) Fatigue - likely due to anemia. 4) DM - on insulin. - trying to get BS < 200. Plan is to initiate PRBC if needed and ideally keep Hb between 7 and 8. However discussed today that he has been using a lot of transfusions lately and did not get any help with Luspatercept or with Rytelo. Will transfuse as needed. Discussed with pt and family about current treatment. Transfuse 1 unit PRBC Will attempt to try Procrit or Aranesp and see if this helps instead. If not, may need to move on to AZA. Will try to adjust Epo. Not responding well to shots. Will increase to 60K for next shot and see how he does. May need to repeat marrow. Reviewed BM biopsy with pt and family again today. Transfusion threshold is 7.5 now given the amount of transfusions he has had and lack of benefit. The patient was able to ask questions and all were answered to his satisfaction. I will see him back in about 2-3 weeks. Will arrange shots at [facility] per pt request and alternate with Sofía to see me. Pt agreeable. Start Vit D 2000 daily Reviewed decitabine would have to be here and not [facility]. Per Dr. Frank: IMPRESSION: 1. 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 Clinical problem is severe anemia with red cell transfusion dependence, mild thrombocytopenia. The [id number] are to improve quality- and [id number] by increasing marrow RBC production. Treatment considerations for these goals are: A. Identify and correct any nutritional or endocrine deficiencies that can contribute to anemia. Presently on appropriate erythropoietin replacement therapy with erythropoietin 60,000 units per week. No iron deficiency, to recheck TSH, copper level, testosterone level, MMA level (serum B12 can be misleading in context of myeloid malignancy) to guide any additional replacement therapies as needed. As component of overall health maintenance, to also check vitamin D level. B. Luspatercept. Luspatercept can assist with erythroid lineage maturation, received a therapeutic trial of luspatercept at appropriate dose without response. C. Imetelstat. Imetelstat is indicated for MDS causing severe anemia. Received an appropriate therapeutic trial of imetelstat without response after ~24 weeks of therapy. D. Hypomethylating agent. If persistent anemia indicated adequate replacement therapies as per 'A' above, to consider addition of HMA to the erythropoietin. An HMA selection and regimen that offers a favorable risk/benefit ratio in this clinical context is metronomic subcutaneous decitabine 0.2 mg/kg 1X/week (a non-cytotoxic epigenetic dose). The subcutaneous decitabine can be administered at the same visit as the erythropoietin 1X/week thus not adding to logistical burden for the patient. Anti-emetics are typically not needed with this non-cytotoxic regimen. The main side-effect is neutropenia, hold if neutrophil count is <0.5 t73dca1/L. E. Supportive care. Continue supportive care with PRN transfusion as per Dr Noriega. Monitor iron studies to guide initiation of oral iron chelation therapy if needed. RECOMMEND: - CBC with diff, retic count, CMP and LDH every 4 weeks to track disease course and response to therapy - Monitor iron studies every 12 weeks to guide initiation of oral iron chelation therapy, e.g, with deferasirox (JadeNu), if indicated, consider starting at low dose, e.g., 90 mg per day, and increasing dose as tolerated by renal function that is monitored 1X/month as above - Recheck TSH, total testosterone, copper level, MMA to guide replacement therapies, e.g., with danazol 50 mg PO BID increase to 100 mg PO BID as tolerated depending on baseline testosterone level result - CBC with type and screen 1X/week to guide PRN PRBC transfusion supportive care - Continue erythropoietin 60,000 units 1X/week - If persistent anemia despite adequate replacement therapies, consider subcutaneous decitabine 0.2 mg/kg 1X/week same visit as erythropoietin, as per discussion above I will see him back in 2 weeks for follow up. Parts of the HPI, ROS, exam and impression/plan may have been copied from my personal previous clinical note and remain pertinent. Current changes have been made and documented today. Other parts or data were deleted if not relevant for today. The documentation has been reviewed and edited as necessary to support the clinical decision making for today's visit. Vicenta Noriega MD documented in this encounter [facility] 09-30-2024 Note Sofía Sh[facility] 09-24-2024 Note Sofía Sharma [facility] 09-24-2024 History of Present illness Narrative Pt arrived in stable condition. Appears very sob after ambulating. VSS. Assessment WNL, pt denies fever, chills, cough or cold symptoms. PIV started, fluids up. RBC's up as ordered, pt verbalized understanding to notify RN of sob, chest pain, chills or discomfort. Will monitor. Transfusion complete. VSS. Pt tolerated without incident. Line flushing. PIV removed intact. DSD placed. Pt ambulated to [facility]. documented in this encounter [facility] 09-23-2024 Note HNO ID: [id number] Author: ELISABET EVANS LPN Service: ? Author Type: LICENSED NURSE Type: Progress Notes Filed: 09/23/2024 12:59 Note Text: Additional intake questions: Has the patient had fever, nausea, vomiting, diarrhea, constipation, fatigue for > 1 week? No Does the patient have a decreased appetite? No Does patient want to see a [employer]? No (yes to any of above refer patient to schedulers for dietitian appointment) ) Does patient have any new or increased numbness or tingling of extremities? No Is patient interested in fertility information? No Does patient need any prescription refills? No Does patient have an advanced directive in place? No, Patient referred to [facility] Electronically Signed By: Elisabet Evans LPN [facility] 09-23-2024 History of Present illness Narrative Additional intake questions: Has the patient had fever, nausea, vomiting, diarrhea, constipation, fatigue for > 1 week? No Does the patient have a decreased appetite? No Does patient want to see a [employer]? No (yes to any of above refer patient to schedulers for dietitian appointment) ) Does patient have any new or increased numbness or tingling of extremities? No Is patient interested in fertility information? No Does patient need any prescription refills? No Does patient have an advanced directive in place? No, Patient referred to [facility] Electronically Signed By: Elisabet Evans LPN Primary Hematology/Oncology: Dr Vicenta Noriega Hematology/Oncology Diagnosis: Myelodysplastic syndrome (MDS), diagnosed ~April 2022 after presentation with anemia Treatment history for MDS: - Luspatercept dose increased to 1.75 mg/kg, Day 1 03/08/23, discontinued 06/30/24 for lack of response - Imetelstat (Rytelo) Day 1 01/10/24, discontinued 06/30/24 for lack of response. 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 Oropeza is a 79 year old male who presented to ER on 05/22/22 for anemia after this was noted by primary care. Patient states he was 6.7 at PCP office and 6.0 at [facility]. No overt GI bleeding, no blood or darker stool, no weight loss, no abdominal pain, no issues swallowing, and no issues with constipation or diarrhea. Reports several colonoscopies in the past with Dr. Hernandez in [place], last done July 2021 that had one polyp removed. Remote EGD. No NSAID use besides ASA 81 mg, no blood thinners, no smoking, and only rare alcohol use. Taking insulin daily. Just had it doubled to 25 units per day. Has made some progress getting to <200. - 03/11/24 glucose level of 219. - 03/06/24 glucose level 216. - 03/05/24 glucose level 255. At this time - Very fatigued, able to get around the home - Has trouble getting around also because of back pain (recently injured his back) - Sleeps through the night in an electric lift chair, sleeps lying flat, has to get up frequently to urinate - No PND - Not on oxygen - Appetite is good - No fevers - No drenching night sweats - No infections, no pneumonias, has not required antibiotics - No chemotherapy or radiation - Never smoked - Drinks ETOH only on occasions - No abdominal pains - No bleeding from the gums or nose - No blood in the stool - No melena PAST MEDICAL HISTORY Diagnosis Date Cancer of [...] 12 Tonsillectomy Current Outpatient Medications Medication Sig oxycodone HCl/acetaminophen (PERCOCET ORAL) Take by mouth. (Patient not taking: Reported on 07/15/2024) tramadol HCl (ULTRAM ORAL) Take by mouth. (Patient not taking: Reported on 07/15/2024) polyethylene glycol 3350 17 gram packet Take 1 packet by mouth once daily. Dissolve dose in 4 - 8 ounces of liquid and take as directed. (Patient not taking: Reported on 07/15/2024) amLODIPine (NORVASC) 5 mg tablet Take 1 tablet by mouth once daily. (Patient not taking: Reported on 08/05/2024) aspirin 81 mg chewable tablet Take 81 [...] social/rare Drug use: No Review of Systems: Systems reviewed in detail, pertinent positives and negatives as per HPC Physical Exam: BP 134/52 Pulse 90 Temp 36.3 C (97.4 F) (Temporal) Resp 20 Ht 175 cm (5' 8.9) Wt 96.3 kg (212 lb 4.9 oz) SpO2 98% BMI 31.44 kg/m Pallor, no icterus, no petechiae Mucosa normal No palpable lymphadenopathy Lungs CTA HS systolic murmur at LSE into aortic area, no other added sounds, RRR Abdo soft and nontender, no palpable hepatomegaly or splenomegaly No peripheral edema BONE MARROW ASPIRATE AND BIOPSY 07/01/24 (restaging on luspatercept and imetelstat therapy) FINAL DIAGNOSIS A, B, and C. Bone marrow, aspirate, biopsy, clot preparation and peripheral smear: - Normocellular marrow with trilineage hematopoiesis, decreased erythroids with dyserythropoiesis including ring sideroblasts, and mild megakaryocyte atypia. - Small population of clonal CD5 negative, CD10 negative B cells detected by flow cytometry. - Small distinct population of CD8 positive, CD16/CD56 T cells detected by flow cytometry. See report below. - Mildly increased polytypic plasma cells. - Increased stainable iron. - Mild (MF 1) reticulin fibrosis. - Peripheral blood normocytic anemia and thrombocytopenia. PPM1D p.C478*, [id number], c.1434C>A VAF: 36% The patient has a history of bone [...] plasma cells are increased. Stainable iron is increased. Flow cytometry detected a small population of both [...] and follow-up. Recommend correlation with pending myeloid NGS. Dr. Yunier Phan reviewed the case and agrees with the diagnosis. CLINICAL INFORMATION 79-year-old male with a history of macrocytic anemia and thrombocytopenia being evaluated for possible myelodysplastic syndrome. Bone marrow findings ([id number], June 2024) show normocellular marrow with dyserythropoiesis [...] clinical history, marrow morphology and cytogenetics (PMID: [id number]). Mutations in PPM1D are associated with prior exposure to DNA-damaging agents, and are present in a high percentage of cases of therapy related myeloid neoplasms (PMID: 14271513).These results should be interpreted in the context of the clinical and pathological findings for final evaluation. 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 Recommend clinical correlation. Rn Icu slides including peripheral blood smear, aspirate, biopsy, iron stains and immunohistochemical stains for CD3, CD20, CD138 and kappa/lambda CISH were shown at [facility] hematopathology consensus conference via telepathology on 07.31.24 with consensus in the diagnosis (Dr. Espinal, Dr. Yanez). Microscopic Description PERIPHERAL BLOOD: CBC (07/21/2024 11:30 AM) Diff: Auto WBC 4.66 k/uL Neutrophils % 45.4 Hemoglobin 7.9 g/dL Lymphocytes % 44.4 MCV 85.2 fL Monocytes % 9 RDW-CV 15.9 % Eosinophils % 0.4 Platelet Count 99 k/uL Basophils % 0.2 Immature Granulocytes % 0.6 Morphology/Interpretation: Normocytic anemia with slight rouleaux formation and rare nucleated red blood cells. Thrombocytopenia. Mild nuclear segmentation atypia in the granulocytes which are very slightly left shifted. BONE MARROW ASPIRATE: Result Normal Range 0 % Blasts 0-2 0 % Promyelocytes 1-5 47 % Myelos/Metas/Bands/Segs 32-72 1 % Eosinophils 1-6 1 % Basophils 0-1 6 % Monocytes 0-4 9 % Erythroid precursors 13-37 30 % Lymphocytes 7-23 6 % Plasma cells 0-2 5% mast cells Myeloid/Erythro (1.5-4): 5.4 Cells counted: [...] increased and mildly atypical including slightly enlarged forms. BONE MARROW BIOPSY: Adequacy: Suboptimal and subcortical with [...] for reticulin demonstrates mild (MF 1) reticulin fibrosis. Immunohistochemical stain for E-cadherin demonstrates decreased erythroids. Immunohistochemical [...] increased and admixed in the 1 small aggregate. CLOT SECTION: Marrow particles: Small particles with granulocyte predominant trilineage hematopoiesis. Morphology: Particles appear mildly hypocellular (5-10% cellular). ANCILLARY TESTS: Flow cytometry: Per report from [facility] main, flow cytometry demonstrated: Interpretation There is an immunophenotypically distinct B cell subset (CD19+ CD20+ sIg-; 6% of lymphocytes), in a background of polytypic B cells. Whether this represents the tissue equivalent of a monoclonal B cell lymphocytosis or low level involvement by a systemic lymphoma (e.g. marginal zone lymphoma, lymphoplasmacytic lymphoma, among other lymphoproliferative disorders with a nonspecific CD5/JL78-grrcxzly immunophenotype) requires correlation with the clinical and bone marrow histopathologic findings. There is an immunophenotypically distinct T cell subset (CD3+dim CD8+ CD16/56+; 3% of lymphocytes), in a background of unremarkable T cells. Whether this represents a reactive T cell expansion (e.g. due to underlying autoimmune disorder, inflammation, infection, among other causes) or a T cell lymphoproliferative disorder requires correlation with the clinical and bone marrow histopathologic findings. There is no immunophenotypic evidence of an abnormal blast population. Clinical correlation is recommended. Results Flow Cytometry Bone Marrow Immunophenotyping Marker Normal Cell Type Result (Abnormal B cell subset) CD2 T/NK cells Negative CD3 T-cells Negative CD4 T-cell subset Negative CD5 T-cells Negative CD7 T/NK-cells Negative CD8 T-cell subset Negative CD10 B-cell subset Negative CD13 Myeloid Negative CD16/56 NK cells Negative CD19 B-cells Negative CD20 B-cells Positive CD23 B-cells subset Negative CD34 Blast Negative CD45 Taylor-leukocyte Positive CD123 Dendritic Negative CD200 B-cells Positive (dim) kappa/lambda B-cells Negative TRBC1 T-cells Negative Flow cytometric analysis of the bone marrow aspirate [...] 56% of total events. Blasts are not increased. 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 COMMENT: Ten metaphase cells were analyzed from the culture supplemented with GM-CSF and ten metaphase cells were analyzed from the 24 hour unstimulated culture. Twenty cells analyzed showed a 46,XY,inv(9)(p12q13) karyotype. The pericentric inversion of chromosome 9 is a benign, constitutional variant with no clinical significance. There was no significant numerical chromosome abnormality and no structural change detected within the limits of resolution. Please see complete report. BM biopsy 06/01/22 (diagnosis bone marrow): Variably cellular marrow with trilineage hematopoiesis and [...] although this variant is rarely germline. 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 Clinical problem is severe anemia with red cell transfusion dependence, mild thrombocytopenia. The yfols-fo-ttci are to improve quality- and hjisrmro-xu-ypss by increasing marrow RBC production. Treatment considerations for these goals are: A. Identify and correct any nutritional or endocrine deficiencies that can contribute to anemia. Presently on appropriate erythropoietin replacement therapy with erythropoietin 60,000 units per week. No iron deficiency, to recheck TSH, copper level, testosterone level, MMA level (serum B12 can be misleading in context of myeloid malignancy) to guide any additional replacement therapies as needed. As component of overall health maintenance, to also check vitamin D level. B. Luspatercept. Luspatercept can assist with erythroid lineage maturation, received a therapeutic trial of luspatercept at appropriate dose without response. C. Imetelstat. Imetelstat is indicated for MDS causing severe anemia. Received an appropriate therapeutic trial of imetelstat without response after ~24 weeks of therapy. D. Hypomethylating agent. If persistent anemia indicated adequate replacement therapies as per 'A' above, to consider addition of HMA to the erythropoietin. An HMA selection and regimen that offers a favorable risk/benefit ratio in this clinical context is metronomic subcutaneous decitabine 0.2 mg/kg 1X/week (a non-cytotoxic epigenetic dose). The subcutaneous decitabine can be administered at the same visit as the erythropoietin 1X/week thus not adding to logistical burden for the patient. Anti-emetics are typically not needed with this non-cytotoxic regimen. The main side-effect is neutropenia, hold if neutrophil count is <0.5 h29lit3/L. E. Supportive care. Continue supportive care with PRN transfusion as per Dr Noriega. Monitor iron studies to guide initiation of oral iron chelation therapy if needed. RECOMMEND: - CBC with diff, retic count, CMP and LDH every 4 weeks to track disease course and response to therapy - Monitor iron studies every 12 weeks to guide initiation of oral iron chelation therapy, e.g, with deferasirox (JadeNu), if indicated, consider starting at low dose, e.g., 90 mg per day, and increasing dose as tolerated by renal function that is monitored 1X/month as above - Recheck TSH, total testosterone, copper level, MMA to guide replacement therapies, e.g., with danazol 50 mg PO BID increase to 100 mg PO BID as tolerated depending on baseline testosterone level result - CBC with type and screen 1X/week to guide PRN PRBC transfusion supportive care - Continue erythropoietin 60,000 units 1X/week - If persistent anemia despite adequate replacement therapies, consider subcutaneous decitabine 0.2 mg/kg 1X/week same visit as erythropoietin, as per discussion above - The referral from Dr Noriega is much appreciated, please do not hesitate to call me at [phone] if I can be of further assistance, I have asked Mr Oropeza to follow with me every 8-12 weeks in addition to Dr Noriega to assist with treatment adjustments as indicated documented in this encounter [facility] 09-23-2024 Note HNO ID: [id number] Author: ANNIE FRANK MD Service: ? Author Type: Physician Type: Progress Notes Filed: 09/23/2024 12:59 Note Text: Primary Hematology/Oncology: Dr Vicenta Noriega Hematology/Oncology Diagnosis: Myelodysplastic syndrome (MDS), diagnosed ~April 2022 after presentation with anemia Treatment history for MDS: - Luspatercept dose increased to 1.75 mg/kg, Day 1 03/08/23, discontinued 06/30/24 for lack of response - Imetelstat (Rytelo) Day 1 01/10/24, discontinued 06/30/24 for lack of response. 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 Oropeza is a 79 year old male who presented to ER on 05/22/22 for anemia after this was noted by primary care. Patient states he was 6.7 at PCP office and 6.0 at [facility]. No overt GI bleeding, no blood or darker stool, no weight loss, no abdominal pain, no issues swallowing, and no issues with constipation or diarrhea. Reports several colonoscopies in the past with Dr. Hernandez in [place], last done July 2021 that had one polyp removed. Remote EGD. No NSAID use besides ASA 81 mg, no blood thinners, no smoking, and only rare alcohol use. Taking insulin daily. Just had it doubled to 25 units per day. Has made some progress getting to <200. - 03/11/24 glucose level of 219. - 03/06/24 glucose level 216. - 03/05/24 glucose level 255. At this time - Very fatigued, able to get around the home - Has trouble getting around also because of back pain (recently injured his back) - Sleeps through the night in an electric lift chair, sleeps lying flat, has to get up frequently to urinate - No PND - Not on oxygen - Appetite is good - No fevers - No drenching night sweats - No infections, no pneumonias, has not required antibiotics - No chemotherapy or radiation - Never smoked - Drinks ETOH only on occasions - No abdominal pains - No bleeding from the gums or nose - No blood in the stool - No melena PAST MEDICAL HISTORY Diagnosis Date Cancer of [...] NEGATIVE TONSILLECTOMY PRIMARY/SECONDARY Tonsillectomy Current Outpatient Medications Medication Sig oxycodone HCl/acetaminophen (PERCOCET ORAL) Take by mouth. (Patient not taking: Reported on 07/15/2024) tramadol HCl (ULTRAM ORAL) Take by mouth. (Patient not taking: Reported on 07/15/2024) polyethylene glycol 3350 17 gram packet Take 1 packet by mouth once daily. Dissolve dose in 4 - 8 ounces of liquid and take as directed. (Patient not taking: Reported on 07/15/2024) amLODIPine (NORVASC) 5 mg tablet Take 1 tablet by mouth once daily. (Patient not taking: Reported on 08/05/2024) aspirin 81 mg chewable tablet Take 81 [...] social/rare Drug use: No Review of Systems: Systems reviewed in detail, pertinent positives and negatives as per [facility] Physical Exam: BP 134/52 Pulse 90 Temp 36.3 ?C (97.4 ?F) (Temporal) Resp 20 Ht 175 cm (5' 8.9) Wt 96.3 kg (212 lb 4.9 oz) SpO2 98% BMI 31.44 kg/m? Pallor, no icterus, no petechiae Mucosa normal No (more content not included)... [facility] 09-16-2024 Note Sofía [facility] 09-16-2024 History of Present illness Narrative Pt arrived to infusion for injection. Appears well, walking without a walker today, VSS. Pt denies fever, chills, cough or cold symptoms. Assessment WNL, unchanged. Injection given to right arm, tolerated well, DSD placed. Pt denies questions or needs. Ambulated to lobby. documented in this encounter [facility] 09-09-2024 Note [facility] 09-09-2024 History of Present illness Narrative Joss Oropeza 1945 September 09, 2024 HPI: Joss Oropeza is a 79 year old male who presents as a hospital follow up. Mr. Oropeza is a 79 year old male who presented to ER on 05/22/22 for anemia. This is a 79 year old male who presented with for low hgb from primary care office. Patient states he was 6.7 at PCP office and 6.0 at [facility]. PMHx of chronic anemia (baseline [...] in the past with Dr. Hernandez in [place], last done July 2021 that had one [...] Does get some therapy and transfusions at [facility] closer to home. Remains on Rytelo per scheduling. Taking insulin daily. Just had it doubled to 25 units per day. Has made some progress getting to <200. - 03/11/24 glucose level of 219. - 03/06/24 glucose level 216. - 03/05/24 glucose level 255. Interval history: Today he is here with his family for follow up and PRBC. Epo today. Going to see a doc at [facility] for another opinion here soon. Fatigued. Back ache Different from back pain. Had his shots from [facility] pain management. Needs an ablation but needs to get his 2nd set of shots. Just recently received those. Doing ok today. No major changes. PAST MEDICAL HISTORY Diagnosis [...] Current Outpatient Medications Medication Sig Dispense Refill oxycodone HCl/acetaminophen (PERCOCET ORAL) Take by mouth. (Patient not taking: Reported on 07/15/2024) 0 tramadol HCl (ULTRAM ORAL) Take by mouth. (Patient not taking: Reported on 07/15/2024) polyethylene glycol 3350 17 gram packet Take 1 packet by mouth once daily. Dissolve dose in 4 - 8 ounces of liquid and take as directed. (Patient not taking: Reported on 07/15/2024) amLODIPine (NORVASC) 5 mg tablet Take 1 tablet by mouth once daily. (Patient not taking: Reported on 08/05/2024) 90 tablet aspirin 81 mg chewable tablet Take 81 [...] Route Frequency Provider Last Rate Last Admin NaCl 0.9% iv infusion 500-999 mL/hr INTRAVENOUS PRN Vicenta Noriega MD diphenhydrAMINE 50 mg injection (BENADRYL) 50 mg INTRAVENOUS PRVicenta Tejada MD hydrocortisone sodium succinate (PF) 100 mg injection (Solu-CORTEF) 100 mg INTRAVENOUS PRN Vicenta Noriega MD EPINEPHrine HCl (PF) 1 mg/mL (1 mL) 0.3 mg injection 0.3 mg INTRAMUSCULAR PRVicenta Tejada MD NaCl 0.9% iv infusion 500-999 mL/hr INTRAVENOUS PRVicenta Tejada MD diphenhydrAMINE 50 mg injection (BENADRYL) 50 mg INTRAVENOUS PRVicenta Tejada MD hydrocortisone sodium succinate (PF) 100 mg injection (Solu-CORTEF) 100 mg INTRAVENOUS PRVicenta Tejada MD EPINEPHrine HCl (PF) 1 mg/mL (1 mL) 0.3 mg injection 0.3 mg INTRAMUSCULAR PRVicenta Tejada MD ALLERGIES Allergen Reactions Maxipime [Cefepime] Unknown FAMILY HISTORY Problem Relation Age of Onset Stroke Mother Ischemic Heart Disease Father Social History Tobacco Use Smoking status: Never Smokeless tobacco: Never Vaping Use Vaping status: Never Used Substance Use Topics Alcohol use: Yes Comment: social/rare Drug use: No I have reviewed the PMHx, PSHx, social history and ROS on September 09, 2024 - all new information noted. Review [...] I have performed the physical exam on September 09, 2024 - all new findings noted below. Physical Exam: Trending of last 3 clinical abnormalities associated with Severe Sepsis or Septic Shock 09/09/2024 1321 09/09/2024 1340 09/09/2024 1432 Temp: 36.3 C (97.3 F) -- 36.2 C (97.2 F) Pulse: 83 81 110 Resp: BP: 133/63 136/69 160/67 Last Wt 09/09/24 : 98.8 kg (217 lb 13 oz) 08/05/24 : 98 kg (216 lb) 07/21/24 : 99.3 kg (219 lb) 07/15/24 : 95.6 kg (210 lb 12.2 oz) 07/02/24 : 98.9 kg (218 lb) Last 1 Encounter Ht Readings: Date: Ht: 08/05/2024 176.5 cm (5' 9.5) ECOG PS: 1 Pain Intensity: 0/10 General: [...] coping or adjustment. Labs CBC: Recent Labs 09/08/24 1110 WBC 5.76 HB 6.7* HCT 20.1* PLT 92* MCV 89.7 RDWCV 15.5* NEUTP 52.8 ABSNEUT 3.03 LYMPHP 39.2 MONOP 7.1 EODINP 0.3 COAG: No results for input(s): APTT, INR in the last 168 hours. BMP: No results for input(s): GLUC, NA, K, CHLOR, CO2, ANION, BUN, CREAT in the last 168 hours. CHEM: No results for input(s): ALB, TPROT, CA, MG in the last 168 hours. Lab Results Component Value Date MURRAY 1,130.0 [...] although this variant is rarely germline. 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 - Small population of clonal CD5 negative, CD10 negative B cells detected by flow cytometry. - Small distinct population of CD8 positive, CD16/CD56 T cells detected by flow cytometry. See report below. - Mildly increased polytypic plasma cells. - Increased stainable iron. - Mild (MF 1) reticulin fibrosis. - Peripheral blood normocytic anemia and thrombocytopenia. Per report from [facility] main, myeloid NGS demonstrated: RESULT SUMMARY Variants Detected Strong Clinical Significance Potential Clinical Significance 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 Bone marrow findings ([id number], June 2024) show normocellular marrow with dyserythropoiesis [...] clinical history, marrow morphology and cytogenetics (PMID: 73706021). Mutations in PPM1D are associated with prior exposure to DNA-damaging agents, and are present in a high percentage of cases of therapy related myeloid neoplasms (PMID: 12365538).These results should be interpreted in the context of the clinical and pathological findings for final evaluation. 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 Recommend clinical correlation. 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 - started on Luspatercept on 03/08/23 Received 06/30/24. - Started on Rytelo 01/10/24. Due again on 04/07/[address] to 5.6mg/kg C#6 completed on 06/30/24. Not sure this is helping anymore. This was d/c. - recommended repeat BM biopsy to see if anything had changed. Did not change per 07/21/24 marrow. - now trying Epo weekly to see if this works. - needs PRBC today. 2) Macrocytic anemia - related to #1. 3) Fatigue - likely due to anemia. 4) DM - on insulin. - trying to get BS < 200. Plan is to initiate PRBC if needed and ideally keep Hb between 7 and 8. However discussed today that he has been using a lot of transfusions lately and did not get any help with Luspatercept or with Rytelo. Will transfuse as needed. Discussed with pt and family about current treatment. Transfuse 1 unit PRBC Will attempt to try Procrit or Aranesp and see if this helps instead. If not, may need to move on to AZA. Will try to adjust Epo. Not responding well to shots. Will increase to 60K for next shot and see how he does. May need to repeat marrow. Reviewed BM biopsy with pt and family again today. Transfusion threshold is 7.5 now given the amount of transfusions he has had and lack of benefit. The patient was able to ask questions and all were answered to his satisfaction. I will see him back in about 4 weeks. Will arrange shots at [facility] per pt request and alternate with Sofía to see me. Pt agreeable. Will see if main [facility] doc has anything to add. Parts of the HPI, ROS, exam and impression/plan may have been copied from my personal previous clinical note and remain pertinent. Current changes have been made and documented today. Other parts or data were deleted if not relevant for today. The documentation has been reviewed and edited as necessary to support the clinical decision making for today's visit. Vicenta Noriega MD documented in this encounter [facility] 09-09-2024 Note [facility] 09-09-2024 History of Present illness Narrative September 09, 2024 2:46 PM If you experience any of the following symptoms within 24 hours after your transfusion, you should notify your physician! Fever Chills Hives Chest Pain Shortness of breath Headache Jaundice (yellow discoloration of skin) Nausea and vomiting Flushing Dark or bloody urine Profuse sweating Unusual bleeding Sudden change in the way you feel. Many of the symptoms can be treated with medication. It's very important to keep your physician informed of any problems that occur. Physician: Vicenta Noriega M.D., MPH Additional Information: Plan of care evaluated at discharge by : Danisha Schwartz RN September 09, 2024 If you smoke, Stop! Call [phone] or [phone] for additional information. Please take this form with you to all physician visits. Copy of patient instructions given to patient. documented in this encounter [facility] 09-02-2024 Note [facility] 09-02-2024 History of Present illness Narrative Pt arrived to infusion room, steady gate with wheel walker. Pt denies fever, chills, cold/flu-like symptoms. Pt states he does not feel as weak and tired as usual despite his low hgb level. VSS. PIV started without complications. IV fluids started. PRBCs started per order. Pt verbalizes understanding to notify if he experiences sob, chest pain, back pain, chills, or any discomfort. Epoetin given per order. RBCs complete, pt tolerated well. PIV removed without complications. Plan reviewed, pt denies needs[facility]. documented in this encounter [facility] 08-26-2024 Note [facility] 08-26-2024 History of Present illness Narrative Pt arrived to infusion room, well-appearing, steady gate with wheel walker. Pt denies recent fever, chills, cold/flu symptoms. Pt states he feels better than last week and hopeful that the procrit is being effective. VSS. Epoetin injection given per order. Pt tolerated well. Plan reviewed, pt denies needs. Pt exited to [facility]. documented in this encounter [facility] 08-19-2024 Note [facility] 08-19-2024 History of Present illness Narrative Pt arrived to infusion room, steady gait with wheel walker. Pt denies recent fever, chills, cold/flu symptoms. Pt c/o weakness and fatigue. VSS. PIV started without complications. IV fluids started. PRBCs started per order. Pt verbalizes understanding to notify if he experiences any SOB, chest pain, back pain, chills, or any discomfort. Education provided and reviewed with patient about Epoetin injection. Pt verbalizes understanding and denies further questions. Epoetin injection given per order. Transfusion complete. Pt tolerated well as evidenced by VSS and no S&S of a reaction. PIV removed without complications. Plan reviewed, pt denies needs. Pt exited to [facility] with walker. documented in this encounter [facility] 08-12-2024 Note [facility] 08-12-2024 History of Present illness Narrative Pt arrived per self, with wheel walker. VSS, Dyspnea with ambulation noted. Pt states he feels weak and tired so he is not surprised his Hgb is low. PIV started without issue. IV fluids up. Pt denies questions or needs. RBC 's unit up as ordered, pt verbalized understanding to notify RN of sob, chest pain, chills and congestion. Will monitor. Transfusion complete. VSS, Pt tolerated well. Line flushing at this time. Waiting to hear back from auth team to see if procrit is authorized for todays visit. PIV removed intact. Pt denies questions and needs at this time. Will reschedule patient for procrit when authorized. Pt ambulated to lobby per walker, gait steady. documented in this encounter [facility] 08-11-2024 History of Present illness Narrative Images from the original note were not included. Sabas You MD [facility] Hematology/Oncology - [facility] [address] [facility] [address] [facility] [address] Dept: [phone] Dept PROBLEM LIST: 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 -03/08/2023 started Luspatercept which was increased to max dose -01/10/2024 = started on Imetelstat via Dr Vicenta Noriega -Receiving luspatercept and Imetelstat through [facility]/Vicenta Noriega -07/21/2024 BMBx= normocellular marrow with trilineage hematopoiesis, decreased erythroids with dyserythropoiesis including ring sideroblasts and mild megakaryocytic atypia. Small clonal B-cell populations per report, mild reticulin fibrosis, increased stainable iron. Positive PPM1D mutation indicating clonal hematopoiesis 2. Fatty liver Documented on 11/24/2021 [facility] u/s 3.Iron overload ASSESSMENT AND PLAN: Joss Oropeza is a 79 y.o. male here for 1. MDS: -06/2024 BMBx ([facility]) reviewed = likely MDS -With pt failing to respond to prior therapies (would recommend discontinuation of current treatment), we spent time today discussing options going forward. With anemia being the main issue, it would be reasonable to trial an TOAN such as Retacrit. However, patient will need to have an erythropoietin level drawn. If this agent does not improve hemoglobin in a short time or there are other cytopenias noted, switching to azacitidine or decitabine would be reasonable. We discussed this all at length the day. After long discussion, the patient and family did wish to seek a second opinion at main [facility] so we did place a referral today for Dr. Annie Frank. The patient wished to continue his care under Dr. Vicenta Noriega at [facility]. They look forward to Dr. Frank's opinion and coordinating his recommendations with Dr. Noriega's treatment plan. All questions were answered to the patient, , son satisfaction 2. Iron overload Would recommend iron chelation On this date, 08/11/24 , I have spent 40 minutes preparing to see the patient, reviewing previous notes and test results, completing clinical documentation as well as with [id number] patient care, performing a medically appropriate examination, counseling / educating the patient/family/caregiver, and ordering medications, tests, or procedures. HPI: Joss Oropeza is a 79 y.o. male who presents here today with MDS Since last appointment the patient underwent a bone marrow biopsy at [facility] The patient reports that he is very frustrated with ongoing fatigue and weakness. 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 Vaping Use Vaping status: Never Used Substance and Sexual Activity Alcohol use: Yes Comment: rare Drug use: Never Sexual activity: Not on file Other Topics Concern Not on file Social History Narrative Not on file Social Drivers of Health Financial Resource Strain: Low Risk (05/23/2022) Received from [facility] Overall Financial Resource Strain (CARDIA) Difficulty of Paying Living Expenses: Not hard at all Food Insecurity: No Food Insecurity (06/07/2024) Received from [facility] Hunger Vital Sign Worried About Running Out of Food in the Last Year: Never true Ran Out of Food in the Last Year: Never true Transportation Needs: No Transportation Needs (06/07/2024) Received from [facility] PRAPARE - Transportation Lack of Transportation (Medical): No Lack of Transportation (Non-Medical): No Physical Activity: Not on file Stress: Not on file Social Connections: Not on file Intimate Partner Violence: Not on file Housing Stability: Unknown (06/07/2024) Received from [facility] Housing Stability Vital Sign Unable to Pay for Housing in the Last Year: No Number of Times Moved in the Last Year: Not on file Homeless in the Last Year: No Family History[7] Allergies[8] Reviewed medications, allergies, past medical history, social history, family history as above. PHYSICAL EXAM: BP 130/64 Pulse 91 Temp 37.1 C (98.7 F) (Temporal) Ht 1.727 m (5' 7.99) Wt 97.8 kg (215 lb 8 oz) SpO2 99% BMI 32.77 kg/m CONSTITUTIONAL: see VS. No apparent distress. SKIN: No rashes PYSCH: AAOx3. Mood and affect appropriate, patient interactive Labs Most recent labs reviewed Lab Results Component Value Date NA 133 (L) 07/24/2024 K 4.4 07/24/2024 CL 103 07/24/2024 CO2 24 07/24/2024 BUN 23 07/24/2024 CREATININE 1.08 07/24/2024 GLUCOSE 215 (H) 07/24/2024 CALCIUM 9.0 07/24/2024 PROT 6.7 07/24/2024 BILITOT 0.2 07/24/2024 ALKPHOS 119 07/24/2024 AST 22 07/24/2024 ALT 21 07/24/2024 Lab Results Component Value Date WBC 4.4 07/24/2024 HGB 7.1 (L) 07/24/2024 HCT 20.7 (L) 07/24/2024 MCV 85.2 07/24/2024 PLT 112 (L) 07/24/2024 LYMPHOPCT 37.6 07/24/2024 RBC 2.43 (L) 07/24/2024 MCH 29.2 07/24/2024 MCHC 34.3 07/24/2024 RDW 16.3 (H) 07/24/2024 07/03/2022 labs CBC: 5.4/7.6/23/116 EPO = 879 June 07, 2024 labs: CBC: 6.4/9.0/25.9/54 Normal differential July 28, 2024 labs: CBC: 5.9/6.6/20.04/2021 ANC = 2390 Radiology reviewed: 06/08/24 MRI L spine 1. [...] change detected within the limits of resolution. 07/21/24 BMBx = Addendum Per report from [facility] main, myeloid NGS demonstrated: RESULT SUMMARY Variants Detected Strong Clinical Significance Potential Clinical Significance 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 Bone marrow findings ([id number], June 2024) show normocellular marrow with dyserythropoiesis [...] clinical history, marrow morphology and cytogenetics (PMID: 32518190). Mutations in PPM1D are associated with prior exposure to DNA-damaging agents, and are present in a high percentage of cases of therapy related myeloid neoplasms (PMID: 11963275).These results should be interpreted in the context of the clinical and pathological findings for final evaluation. -The findings are consistent with at least clonal cytopenia of undetermined significance although evaluation for dysplasia is limited in a post treatment bone marrow. Recommend clinical correlation. Rn Icu slides including peripheral blood smear, aspirate, biopsy, iron stains and immunohistochemical stains for CD3, CD20, CD138 and kappa/lambda CISH were shown at [facility] hematopathology consensus conference via telepathology on 07.31.24 with consensus in the diagnosis (Dr. Espinal, Dr. Yanez). Addendum electronically signed by Elpidio Storm MD on 07/31/2024 at 1257 EDT FINAL DIAGNOSIS A, B, and C. Bone marrow, aspirate, biopsy, clot preparation and peripheral smear: - Normocellular marrow with trilineage hematopoiesis, decreased erythroids with dyserythropoiesis including ring sideroblasts, and mild megakaryocyte atypia. - Small population of clonal CD5 negative, CD10 negative B cells detected by flow cytometry. - Small distinct population of CD8 positive, CD16/CD56 T cells detected by flow cytometry. See report below. - Mildly increased polytypic plasma cells. - Increased stainable iron. - Mild (MF 1) reticulin fibrosis. - Peripheral blood normocytic anemia and thrombocytopenia. at 1622 EDT Diagnosis Comment The patient has a history of bone [...] plasma cells are increased. Stainable iron is increased. Flow cytometry detected a small population of both [...] and follow-up. Recommend correlation with pending myeloid NGS. Dr. Yunier Phan reviewed the case and agrees with the diagnosis. Microscopic Description PERIPHERAL BLOOD: CBC (07/21/2024 11:30 AM) Diff: Auto WBC 4.66 k/uL Neutrophils % 45.4 Hemoglobin 7.9 g/dL Lymphocytes % 44.4 MCV 85.2 fL Monocytes % 9 RDW-CV 15.9 % Eosinophils % 0.4 Platelet Count 99 k/uL Basophils % 0.2 Immature Granulocytes % 0.6 Morphology/Interpretation: Normocytic anemia with slight rouleaux formation and rare nucleated red blood cells. Thrombocytopenia. Mild nuclear segmentation atypia in the granulocytes which are very slightly left shifted. BONE MARROW ASPIRATE: Result Normal Range 0 % Blasts 0-2 0 % Promyelocytes 1-5 47 % Myelos/Metas/Bands/Segs 32-72 1 % Eosinophils 1-6 1 % Basophils 0-1 6 % Monocytes 0-4 9 % Erythroid precursors 13-37 30 % Lymphocytes 7-23 6 % Plasma cells 0-2 5% mast cells Myeloid/Erythro (1.5-4): 5.4 Cells counted: [...] increased and mildly atypical including slightly enlarged forms. BONE MARROW BIOPSY: Adequacy: Suboptimal and subcortical with [...] for reticulin demonstrates mild (MF 1) reticulin fibrosis. Immunohistochemical stain for E-cadherin demonstrates decreased erythroids. Immunohistochemical [...] increased and admixed in the 1 small aggregate. CLOT SECTION: Marrow particles: Small particles with granulocyte predominant trilineage hematopoiesis. Morphology: Particles appear mildly hypocellular (5-10% cellular). ANCILLARY TESTS: Flow cytometry: Per report from [facility] main, flow cytometry demonstrated: Interpretation There is an immunophenotypically distinct B cell subset (CD19+ CD20+ sIg-; 6% of lymphocytes), in a background of polytypic B cells. Whether this represents the tissue equivalent of a monoclonal B cell lymphocytosis or low level involvement by a systemic lymphoma (e.g. marginal zone lymphoma, lymphoplasmacytic lymphoma, among other lymphoproliferative disorders with a nonspecific CD5/VI53-ezvydpcf immunophenotype) requires correlation with the clinical and bone marrow histopathologic findings. There is an immunophenotypically distinct T cell subset (CD3+dim CD8+ CD16/56+; 3% of lymphocytes), in a background of unremarkable T cells. Whether this represents a reactive T cell expansion (e.g. due to underlying autoimmune disorder, inflammation, infection, among other causes) or a T cell lymphoproliferative disorder requires correlation with the clinical and bone marrow histopathologic findings. There is no immunophenotypic evidence of an abnormal blast population. Clinical correlation is recommended. Results Flow Cytometry Bone Marrow Immunophenotyping Marker Normal Cell Type Result (Abnormal B cell subset) CD2 T/NK cells Negative CD3 T-cells Negative CD4 T-cell subset Negative CD5 T-cells Negative CD7 T/NK-cells Negative CD8 T-cell subset Negative CD10 B-cell subset Negative CD13 Myeloid Negative CD16/56 NK cells Negative CD19 B-cells Negative CD20 B-cells Positive CD23 B-cells subset Negative CD34 Blast Negative CD45 Taylor-leukocyte Positive CD123 Dendritic Negative CD200 B-cells Positive (dim) kappa/lambda B-cells Negative TRBC1 T-cells Negative Flow cytometric analysis of the bone marrow aspirate [...] 56% of total events. Blasts are not increased. 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 Whether this represents the tissue equivalent of a monoclonal B cell lymphocytosis or low level involvement by a systemic lymphoma (e.g. marginal zone lymphoma, lymphoplasmacytic lymphoma, among other lymphoproliferative disorders with a nonspecific CD5/AV76-jctkzdqh immunophenotype) requires correlation with the clinical and bone marrow histopathologic findings. There is an immunophenotypically distinct T cell subset (CD3+dim CD8+ CD16/56+; 3% of lymphocytes), in a background of unremarkable T cells. Whether this represents a reactive T cell expansion (e.g. due to underlying autoimmune disorder, inflammation, infection, among other causes) or a T cell lymphoproliferative disorder requires correlation with the clinical and bone marrow histopathologic findings. There is no immunophenotypic evidence of an abnormal blast population. Clinical correlation is recommended. Sabas You MD Disclaimer: This note was dictated by speech recognition and may contain minor errors in echocardiograph technician. [1] Past Medical History: Diagnosis Date Clonal cytopenia of undetermined significance DM (diabetes mellitus) (HCC) Hypercholesteremia Myelodysplastic syndrome (HCC) [2] Past Surgical History: Procedure Laterality Date BACK SURGERY CHOLECYSTECTOMY TONSILLECTOMY [3] Current Outpatient Medications: alendronate (Fosamax) 70 MG tablet, 1 tab(s) orally once a week, Disp: , Rfl: aspirin 81 MG EC tablet, Take 81 mg by mouth., Disp: , Rfl: cyanocobalamin (Vitamin B-12) 1000 MCG tablet, Take [...] mg by mouth daily., Disp: , Rfl: [4] [5] [6] [7] Family History Problem Relation Name Age of Onset Thyroid cancer Mother Pulmonary embolism Sister Thyroid cancer Daughter [8] Allergies Allergen Reactions Cefepime Unknown PT is exhausted all the time documented in this encounter [facility] 08-10-2024 Radiology Diagnostic study note [facility] Imaging Services [address], [place] [address] Abdomen Single View MR#: [id number] Acct: [id number] Name: JOSS OROPEZA Rep #: [id number] : 1945 M 79 From: Fuentes Byrd MD PCP: Dr. German Robertson MD Status: REG CLI Study:Abdomen Single View Date of Exam: 08/09/24 Exam# [id number] Ordering Dr: German Robertson MD PROCEDURE: ABDOMEN SINGLE VIEW 08/09/2024 REASON FOR EXAM: PAIN TECHNIQUE: ABDOMEN SINGLE VIEW FINDINGS: Normal gastrointestinal gas pattern seen. Right upper quadrant surgical clips are seen. Mild stool noted in large bowel loops. No pneumoperitoneum. Visualized bones appear unremarkable. No pathological abdominal calcifications noted. RAD/Abdomen Single View IMPRESSION: No acute findings Reading [facility] CC: Dr. 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 documented in this encounter [facility] 08-05-2024 Telephone encounter Note Need to schedule pt for procrit weekly - mostly lodi but every 3-4 here. [facility] Work Phone: 08-05-2024 History of Present illness Narrative Joss Oropeza 1945 August 05, 2024 HPI: Joss Oropeza is a 79 year old male who presents as a hospital follow up. Mr. Oropeza is a 79 year old male who presented to ER on 05/22/22 for anemia. This is a 79 year old male who presented with for low hgb from primary care office. Patient states he was 6.7 at PCP office and 6.0 at [facility]. PMHx of chronic anemia (baseline [...] in the past with Dr. Hernandez in [place], last done July 2021 that had one [...] Does get some therapy and transfusions at [place] closer to home. Remains on Rytelo per scheduling. Taking insulin daily. Just had it doubled to 25 units per day. Has made some progress getting to <200. - 03/11/24 glucose level of 219. - 03/06/24 glucose level 216. - 03/05/24 glucose level 255. Interval history: Today he is here with his family for follow up. Fatigued. Back ache Having abd pain on the L side flank > 1 week. Different from back pain. Had his shots from [facility] pain management. Needs an ablation but needs to get his 2nd set of shots. Will be getting them this . Doing ok today. Was in the hospital [...] mouth and stay upright for 30 min. oxycodone HCl/acetaminophen (PERCOCET ORAL) Take by mouth. (Patient not taking: Reported on 07/15/2024) 0 tramadol HCl (ULTRAM ORAL) Take by mouth. (Patient not taking: Reported on 07/15/2024) polyethylene glycol 3350 17 gram packet Take 1 packet by mouth once daily. Dissolve dose in 4 - 8 ounces of liquid and take as directed. (Patient not taking: Reported on 07/15/2024) amLODIPine (NORVASC) 5 mg tablet Take 1 tablet by mouth once daily. (Patient not taking: Reported on 08/05/2024) 90 tablet No current facility-administered medications for this visit. [...] PSHx, social history and ROS on August 05, 2024 - all new information noted. Review [...] have performed the physical exam on August 05, 2024 - all new findings noted below. Physical Exam: BP 149/70 Pulse 89 Temp 36.4 C (97.6 F) (Oral) Ht 176.5 cm (5' 9.5) Wt 98 kg (216 lb) SpO2 97% BMI 31.44 kg/m ECOG PS: 1 Pain Intensity: 0/10 General: [...] coping or adjustment. Labs CBC: Recent Labs 08/04/24 1147 WBC 6.77 HB 7.2* HCT 22.1* PLT 119* MCV 88.4 RDWCV 16.2* NEUTP 52.2 ABSNEUT 3.53 LYMPHP 38.8 MONOP 8.0 EODINP 0.1 COAG: No results for input(s): APTT, INR in the last 168 hours. BMP: No results for input(s): GLUC, NA, K, CHLOR, CO2, ANION, BUN, CREAT in the last 168 hours. CHEM: No results for input(s): ALB, TPROT, CA, MG in the last 168 hours. Lab Results Component Value Date MURRAY 1,130.0 [...] although this variant is rarely germline. 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 - Small population of clonal CD5 negative, CD10 negative B cells detected by flow cytometry. - Small distinct population of CD8 positive, CD16/CD56 T cells detected by flow cytometry. See report below. - Mildly increased polytypic plasma cells. - Increased stainable iron. - Mild (MF 1) reticulin fibrosis. - Peripheral blood normocytic anemia and thrombocytopenia. Per report from [facility] main, myeloid NGS demonstrated: RESULT SUMMARY Variants Detected Strong Clinical Significance Potential Clinical Significance 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 Bone marrow findings ([id number], June 2024) show normocellular marrow with dyserythropoiesis [...] clinical history, marrow morphology and cytogenetics (PMID: 42468252). Mutations in PPM1D are associated with prior exposure to DNA-damaging agents, and are present in a high percentage of cases of therapy related myeloid neoplasms (PMID: 45303084).These results should be interpreted in the context of the clinical and pathological findings for final evaluation. 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 Recommend clinical correlation. 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 - started on Luspatercept on 03/08/23 Still on this. Received today 06/30/24. - Started on Rytelo 01/10/24. Due again on 04/07/[address] to 5.6mg/kg C#6 completed on 06/30/24. Not sure this is helping anymore. This was d/c. - recommended repeat BM biopsy to see if anything had changed. Did not change per 07/21/24 marrow. 2) Macrocytic anemia - related to #1. 3) Fatigue - likely due to anemia. 4) DM - on insulin. - trying to get BS < 200. Plan is to initiate PRBC if needed and ideally keep Hb between 7 and 8. However discussed today that he has been using a lot of transfusions lately and did not get any help with Luspatercept or with Rytelo. Will transfuse as needed. Discussed with pt and family about current treatment. Transfuse 1 unit PRBC Will attempt to try Procrit or Aranesp and see if this helps instead. If not, may need to move on to AZA. Reviewed BM biopsy with pt and family today. Transfusion threshold is 7.5 now given the amount of transfusions he has had and lack of benefit. The patient was able to ask questions and all were answered to his satisfaction. I will see him back in about 4-6 weeks. Will arrange shots at [place] per pt request and alternate with Sofía to see me. Pt agreeable. Parts of the HPI, ROS, exam and impression/plan may have been copied from my personal previous clinical note and remain pertinent. Current changes have been made and documented today. Other parts or data were deleted if not relevant for today. The documentation has been reviewed and edited as necessary to support the clinical decision making for today's visit. Vicenta Noriega MD documented in this encounter [facility] 08-05-2024 Note [facility] 07-29-2024 Note [facility] 07-29-2024 History of Present illness Narrative Pt arrived to infusion per [...] self. No concerns. documented in this encounter [facility] 07-27-2024 Telephone encounter Note Noted. Message sent to PHIL Barros. No further orders at this time. [facility] 07-27-2024 Miscellaneous Notes Noted. Message sent to PHIL Barros. No further orders at this time. Images from the original note were not included. Noted. No need to have him come back for redraw. We can await labs we have and discuss at next appt Elpidio Spears RN to Me (Selected Message) MA 07/27/24 11:30 AM Please see message and advise, thanks Elpidio Spears RN MA 07/27/24 11:29 AM Note Noted. Message sent to . 07/27/24 11:28 AM Fiorella Murdock MA routed this conversation to [facility] On[facility] Clinical Sr. Manager MD Fiorella Coon MA 07/27/24 11:27 AM Note Zinc and Copper tests where Canceled. Send outs called me and stated that I did not spin tubes properly. [employer] Vat Worker in Send outs. She states that the way I have been sending these tests is incorrect and they need redrawn. DO NOT spin them and I am to send these tubes (royal blue) to [facility] Do you want these test redrawn?? Or wait till he comes back in to see you? Thank You José Miguel : ) Noted. Message sent to . Zinc and Copper tests where Canceled. Send outs called me and stated that I did not spin tubes properly. [employer] Vat Worker in Send outs. She states that the way I have been sending these tests is incorrect and they need redrawn. DO NOT spin them and I am to send these tubes (royal blue) to [facility] STAT Do you want these test redrawn?? Or wait till he comes back in to see you? Thank You José Miguel : ) documented in this encounter [facility] 07-27-2024 Telephone encounter Note Images from the original note were not included. Noted. No need to have him come back for redraw. We can await labs we have and discuss at next appt Elpidio Spears RN to Mi (Selected Message) MA 07/27/24 11:30 AM Please see message and advise, thanks Elpidio Spears RN MA 07/27/24 11:29 AM Note Noted. Message sent to . 07/27/24 11:28 AM Fiorella Murdock MA routed this conversation to [facility] On[facility] Clinical Sr. Manager MD Fiorella Coon MA 07/27/24 11:27 AM Note Zinc and Copper tests where Canceled. Send outs called me and stated that I did not spin tubes properly. [employer] Vat Worker in Send outs. She states that the way I have been sending these tests is incorrect and they need redrawn. DO NOT spin them and I am to send these tubes (royal blue) to [facility] STAT Do you want these test redrawn?? Or wait till he comes back in to see you? Thank You José Miguel : ) [facility] 07-27-2024 Telephone encounter Note Noted. Message sent to . [facility] 07-27-2024 Telephone encounter Note Zinc and Copper tests where Canceled. Send outs called me and stated that I did not spin tubes properly. [employer] Vat Worker in Send outs. She states that the way I have been sending these tests is incorrect and they need redrawn. DO NOT spin them and I am [facility]royal blue[facility] Do you want these test redrawn?? Or wait till he comes back in to see you? Thank You José Miguel : ) [facility] 07-24-2024 History of Present illness Narrative Images from the original note were not included. Sabas You MD [facility] Hematology/Oncology - [facility] [address] [facility] [address] [facility] [address] Dept: [phone] Dept PROBLEM LIST: 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 -03/08/2023 started Luspatercept which was increased to max dose -01/10/2024 = started on Imetelstat via Dr Vicenta Noriega -Receiving luspatercept and Imetelstat through [facility]/Vicenta Noriega -07/24/2024 =2nd opinion w/ me 2. 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 Vaping Use Vaping status: Never Used Substance and Sexual Activity Alcohol use: Yes Comment: rare Drug use: Never Sexual activity: Not on file Other Topics Concern Not on file Social History Narrative Not on file Social Drivers of Health Financial Resource Strain: Low Risk (05/23/2022) Received from [facility] Overall Financial Resource Strain (CARDIA) Difficulty of Paying Living Expenses: Not hard at all Food Insecurity: No Food Insecurity (06/07/2024) Received from [facility] Hunger Vital Sign Worried About Running Out of Food in the Last Year: Never true Ran Out of Food in the Last Year: Never true Transportation Needs: No Transportation Needs (06/07/2024) Received from [facility] PRAPARE - Transportation Lack of Transportation (Medical): No Lack of Transportation (Non-Medical): No Physical Activity: Not on file Stress: Not on file Social Connections: Not on file Intimate Partner Violence: Not on file Housing Stability: Unknown (06/07/2024) Received from [facility] Housing Stability Vital Sign Unable to Pay for Housing in the Last Year: No Number of Times Moved in the Last Year: Not on file Homeless in the Last Year: No Family History[7] Allergies[8] Reviewed medications, allergies, past medical history, social history, family history as above. 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 [1] Past Medical History: Diagnosis Date Clonal [...] by mouth daily., Disp: , Rfl: SITagliptin (Febuvia) 100 MG tablet, Take 100 mg by [...] blue 4-10ml sst [facility] documented in this encounter [facility] 07-24-2024 History of Present illness Narrative Images from the original note were not included. 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 -03/08/2023 started Luspatercept which was increased to max dose -01/10/2024 = started on Imetelstat via Dr Vicenta Garcia-Anthony -Receiving luspatercept and Imetelstat through [facility]/Vicenta Noriega -07/24/2024 =2nd opinion w/ me 2. 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 Vaping Use Vaping status: Never Used Substance and Sexual Activity Alcohol use: Yes Comment: rare Drug use: Never Sexual activity: Not on file Other Topics Concern Not on file Social History Narrative Not on file Social Drivers of Health Financial Resource Strain: Low Risk (05/23/2022) Received from [facility] Overall Financial Resource Strain (CARDIA) Difficulty of Paying Living Expenses: Not hard at all Food Insecurity: No Food Insecurity (06/07/2024) Received from [facility] Hunger Vital Sign Worried About Running Out of Food in the Last Year: Never true Ran Out of Food in the Last Year: Never true Transportation Needs: No Transportation Needs (06/07/2024) Received from [facility] PRAPARE - Transportation Lack of Transportation (Medical): No Lack of Transportation (Non-Medical): No Physical Activity: Not on file Stress: Not on file Social Connections: Not on file Intimate Partner Violence: Not on file Housing Stability: Unknown (06/07/2024) Received from [facility] Housing Stability Vital Sign Unable to Pay for Housing in the Last Year: No Number of Times Moved in the Last Year: Not on file Homeless in the Last Year: No Family History[7] Allergies[8] Reviewed medications, allergies, past medical history, social history, family history as above. 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 [1] Past Medical History: Diagnosis Date Clonal [...] blue 4-10ml sst All labs [facility] documented in this encounter [facility] 07-21-2024 Surgery Surgical operation note INTERVENTIONAL RADIOLOGY POST PROCEDURE NOTE DATE: 07/21/24 NAME: Joss Oropeza LOG ID: [id number] Pre-Procedure Diagnosis: Thrombocytopenia Network Operations Project Manager: Surgeons and Role: * Miguelangel Magana MD MD - Primary Procedure: BMB & aspiration Anesthesia: Procedural Sedation Findings: ~ 25 cc marrow aspirated. Good core specimen Estimated Blood Loss: 2 mls Specimen: To hematology Complications: None Post-Op/Post-Procedure Diagnosis: Thrombocytopenia [facility] 07-21-2024 Surgical operation note INTERVENTIONAL RADIOLOGY POST PROCEDURE NOTE DATE: 07/21/24 NAME: Joss Oropeza LOG ID: [id number] Pre-Procedure Diagnosis: Thrombocytopenia Network Operations Project Manager: Surgeons and Role: * Miguelangel Magana MD, MD - Primary Procedure: BMB & aspiration Anesthesia: Procedural Sedation Findings: ~ 25 cc marrow aspirated. Good core specimen Estimated Blood Loss: 2 mls Specimen: To hematology Complications: None Post-Op/Post-Procedure Diagnosis: Thrombocytopenia documented in this encounter [facility] 07-21-2024 History and physical note UPDATED HISTORY [...] Medical Record dated 07/15/2024 @ 10:43 AM. [facility] Work Phone: 07-21-2024 History and physical note [...] @ 10:43 AM. documented in this encounter [facility] 07-17-2024 Note [facility] 07-15-2024 Note HNO ID: [id number] Author: TRACY FARFAN PA-C Service: ? Author Type: Physician Process Development Associate Type: Progress Notes Filed: 07/15/2024 10:43 Note Text: Tracy Farfan PA-C [facility] [address] [address] 07/15/2024 ASSESSMENT AND PLAN: Assessment : Encounter Diagnosis ICD-10-CM 1. Mechanical low back pain M54.59 2. Right foot drop M21.371 Discussion: Mr. Oropeza is a pleasant 79-year-old man accompanied by his oldest son Wno today. The patient is here for evaluation [...] today with this patient visit. This includes mczp-hh-[id number] time, review of chart records regarding conservative care history, spine-pertinent imaging, and communication/care coordination with referring provider, problem-specific history-taking and counseling/education regarding treatment options. cc: Bryce Garland [address] [facility] [address] Results of consultation to be transmitted via electronic medical record for those providers who practice within [facility] or with access to [employer] via MD Connect, or via letter. ____ ################################## ################################## #### CHIEF COMPLAINT: Patient is here for the [...] relief of his (more content not included)... [facility] 07-03-2024 Note [facility] 07-03-2024 History of Present illness Narrative Pt arrived using walker to [...] at this time. documented in this encounter [facility] 06-30-2024 Note [facility] 06-30-2024 History of Present illness Narrative Joss Oropeza 1945 June 30, [...] 6.7 at PCP office and 6.0 at [facility]. PMHx of chronic anemia (baseline [...] in the past with Dr. Hernandez in [place], last done July 2021 that had one [...] Does get some therapy and transfusions at [place] closer to home. Remains on Rytelo per [...] CHOLECYSTECTOMY Cholecystectomy, lap PAST SURGICAL HISTORY OF 22-12 BACK SURGERY PAST SURGICAL HISTORY OF SKIN [...] 2ND GEN PEN NEEDLE 32 gauge x / glimepiride (AMARYL) 4 mg tablet Take 4 [...] 1.75 mg/kg/dose (Treatment Plan Recorded) SUBCUTANEOUS ONCE Vicenta Noriega MD hydrocortisone sodium succinate (PF) 100 mg injection (Solu-CORTEF) 100 mg INTRAVENOUS ONCE Vicenta Noriega MD NaCl 0.9% iv infusion 500-999 mL/hr INTRAVENOUS PRN Vicenta Noriega MD diphenhydrAMINE 50 mg injection (BENADRYL) 50 mg INTRAVENOUS PRN Vicenta Noriega MD hydrocortisone sodium succinate (PF) 100 mg injection (Solu-CORTEF) 100 mg INTRAVENOUS PRN Vicenta Noriega MD EPINEPHrine HCl (PF) 1 mg/mL (1 mL) 0.3 mg injection 0.3 mg INTRAMUSCULAR PRN Vicenta Noriega MD imetelstat 543.76 mg in NaCl 0.9% 500 mL (RYTELO) 5.6 mg/kg/dose (Treatment Plan Recorded) INTRAVENOUS ONCE Vicenta Noriega MD ALLERGIES Allergen Reactions Maxipime [Cefepime] [...] today's visit. Transcribed by Miguelina Lin, virtual medical csr for Vicenta Noriega MD. I, Vicenta Noriega MD, personally performed the services described in this documentation. All medical record entries made by the scribe were at my direction and in my presence. I have reviewed the chart and agree that the record reflects my personal performance and is accurate and complete. Vicenta Noriega MD documented in this encounter [facility] 06-20-2024 Telephone encounter Note S: [facility] with complaints of a missing antihypertensive. B: Asymptomatic. Patient was in [place] rehabilitant unit, and was released last night. Allergies and pharmacy, [facility] in [place], verified. A: Patient reports that while in [...] >= 100 Protocols used: Blood Pressure - [id number] [facility] 04-26-2025 Miscellaneous Notes S: [facility] with complaints of a missing antihypertensive. B: Asymptomatic. Patient was in [place] rehabilitant unit, and was released last night. Allergies and pharmacy, [facility] in [place], verified. A: Patient reports that while in [...] >= 100 Protocols used: Blood Pressure - [id number] documented in this encounter [facility] 06-16-2024 Note HNO ID: [id number] Author: SETH REAGAN RN Service: Nursing Author Type: Registered Nurse Type: Nursing Progress Note Filed: 06/16/2024 17:25 Note Text: Other: [facility] faxed back to [phone] [facility] 06-14-2024 Note [facility] 06-09-2024 Note HNO ID: [id number] Author: SETH REAGAN RN Service: Nursing Author Type: Registered Nurse Type: Nursing Progress Note Filed: 06/09/2024 18:20 Note Text: Other: watched channel 95 fall safety video. Bed alarm on and call light in reach. [facility] 06-09-2024 Note HNO ID: [id number] Author: TIA KRUEGER RN Service: Nursing Author Type: Registered Nurse Type: Nursing Progress Note Filed: 06/09/2024 14:46 Note Text: Other: Report called to [facility] 06-08-2024 Note [facility] 06-07-2024 Note [facility] 06-07-2024 Note HNO ID: [id number] Author: KAMLA NGUYEN, DERIC Service: Nursing Author Type: Registered Nurse Type: Progress Notes Filed: 06/07/2024 03:23 Note Text: Page sent to SOUND to notify pt BP 174/88. [facility] 06-03-2024 Note [facility] 06-02-2024 History of Present illness Narrative Dr. Zelaya notified of HGB 7.7 and elevated blood pressure readings, patient advised to see PCP for follow up. Ok to proceed with tx documented in this encounter [facility] 06-02-2024 Note [facility] 05-26-2024 Note [facility] 05-26-2024 History of Present illness Narrative Pt arrived in stable condition. [...] VSS. PIV removed intact. Pt ambulated to [facility]. documented in this encounter [facility] 05-20-2024 Note HNO ID: [id number] Author: GILL ANDREA RN Service: ? Author Type: Registered Nurse Type: Progress Notes Filed: 05/20/2024 16:49 Note Text: Encounter made in error [facility] 05-20-2024 History of Present illness Narrative Encounter made in error documented in this encounter [facility] 05-07-2024 Note [facility] 05-07-2024 History of Present illness Narrative Oncology Follow Up Joss Oropeza [...] 6.7 at PCP office and 6.0 at [facility]. PMHx of chronic anemia (baseline [...] in the past with Dr. Hernandez in [place], last done July 2021 that had one [...] up for 2 units PRBC tomorrow in [place]. His is present with him. ACTIVE PROBLEM [...] activity greater than 3 months.) Homer Velarde [facility] Current Outpatient Medications Medication Sig Dispense Refill [...] weak: 2 units of PRBC tomorrow in [place] 3) Fatigue - likely due to anemia. See at next infusion appointment. Owen Ac APRN.MEDICAL RECORD LIBRARIAN HPI and A/P documentation from Dr. Zelaya's previous visit of 04/07/24 was copied and pasted, documentation has been reviewed and edited as necessary for today's visit. Medical Decision Making: Problems: Moderate: 1+ chronic illnesses with change Data: Unique test result(s) reviewed: 2 Risk: Moderate: Drug management High: High risk from testing/treatment Medical Decision Making Level: 4 - Moderate documented in this encounter [facility] 05-06-2024 Note [facility] 05-06-2024 History of Present illness Narrative Pt arrived to infusion per [...] of pt elevated BP. Pt ambulated to [facility].Gait steady, no complaints or concerns. documented in this encounter [facility] 05-05-2024 Note [facility] 05-05-2024 History of Present illness Narrative Dr. Zelaya notified of Hgb 6.4, Platelets 53. Ok to proceed with tx, patient will receive 2 units of PRBC 05/06/24 at [place] documented in this encounter [facility] 04-16-2024 Note [facility] 04-16-2024 History of Present illness Narrative Pt arrived in good condition. [...] removed, tolerated well, no concerns. Ambulated to [facility] gait steady. documented in this encounter [facility] 04-15-2024 Telephone encounter Note Orders have been completed at 140pm today by Dr. Zelaya. Fazal Morris MA [facility] 04-15-2024 Miscellaneous Notes Orders have been completed at 140pm today by Dr. Zelaya. Fazal Morris MA Good morning, Joss has been added to the schedule at [place] [facility] 04/16 1pm for 2 units of RBC's. The orders just need signed please. Thank you, Fabiola RN Want me to get him in this [...] [facility] documented in this encounter [facility] 04-15-2024 Telephone encounter Note [place] need orders singed he is getting blood tomorrow he is 6.9 Micah Heart MA [facility] 04-15-2024 Miscellaneous Notes Mynor need orders singed he is getting blood tomorrow he is 6.9 Micah Heart MA documented in this encounter [facility] 04-15-2024 Telephone encounter Note Good morning, Joss has been added to the schedule at [place] [facility] 04/16 1pm for 2 units of RBC's. The orders just need signed please. Thank you, Fabiola RN [facility] 04-15-2024 Telephone encounter Note Want me to get him in this week if possible for transfusion? Ashley Swift, DERIC [facility] 04-14-2024 Telephone encounter Note Yes he is transfused anything less than 7. [facility] 04-14-2024 Tara Sharma [facility] 04-14-2024 History of Present illness Narrative Pt arrived to [facility], slow and steady gate. Pt c/o fatigue, [...] MD concerning Hgb level. Pt exited to [facility], steady glenvil. documented in this encounter [facility] 04-14-2024 Telephone encounter Note Good afternoon, Joss [...] transfusion or not. Please advise. Thank you! [facility] 04-07-2024 History of Present illness Narrative Joss Oropeza 1945 April 07, [...] 6.7 at PCP office and 6.0 at [facility]. PMHx of chronic anemia (baseline [...] in the past with Dr. Hernandez in [place], last done July 2021 that had one [...] Does get some therapy and transfusions at [place] closer to home. PAST MEDICAL HISTORY Diagnosis [...] 5.6 mg/kg/dose (Treatment Plan Recorded) INTRAVENOUS ONCE Vicenta Noriega MD NaCl 0.9% iv infusion 500-999 mL/hr INTRAVENOUS PRN Vicenta Noriega MD diphenhydrAMINE 50 mg injection (BENADRYL) 50 mg INTRAVENOUS PRN Vicenta Noriega MD hydrocortisone sodium succinate (PF) 100 mg injection (Solu-CORTEF) 100 mg INTRAVENOUS PRN Vicenta Noriega MD EPINEPHrine HCl (PF) 1 mg/mL (1 mL) 0.3 mg injection 0.3 mg INTRAMUSCULAR PRN Vicenta Noriega MD ALLERGIES Allergen Reactions Maxipime [Cefepime] [...] by Rin Gonsalves & Miguelina Lin, virtual medical csr for Vicenta Noriega MD. I, Vicenta Noriega MD, personally performed the services described in this documentation. All medical record entries made by the scribe were at my direction and in my presence. I have reviewed the chart and agree that the record reflects my personal performance and is accurate and complete. Vicenta Noriega MD documented in this encounter [facility] 04-07-2024 Note [facility] 03-25-2024 Note [facility] 03-25-2024 History of Present illness Narrative Pt arrived to infusion. Appears [...] lobby. No concerns documented in this encounter [facility] 03-24-2024 History of Present illness Narrative Joss Oropeza 1945 March 24, [...] 6.7 at PCP office and 6.0 at [facility]. PMHx of chronic anemia (baseline [...] in the past with Dr. Hernandez in [place], last done July 2021 that had one [...] CHOLECYSTECTOMY Cholecystectomy, lap PAST SURGICAL HISTORY OF 11--12 BACK SURGERY PAST SURGICAL HISTORY OF SKIN [...] 03/24/2024 Component Date Value Product Code 03/23/2024 [id number] Product Identification 03/23/2024 Red Blood Cells Status Information 03/23/2024 Transfused Product Expiration Date 03/23/2024 04/19/2024 23:59 Unit Number 03/23/2024 [id number] Unit Blood Type 03/23/2024 B Pos XM RESULT 03/23/2024 Compatible Issue Date/Time 03/23/2024 03/24/2024 14:54 Type and Screen Expirati* 03/23/2024 03/27/2024 23:59 Product Code 03/23/2024 [id number] Product Identification 03/23/2024 Red Blood Cells Status Information 03/23/2024 Transfused Product Expiration Date 03/23/2024 04/17/2024 23:59 Unit Number 03/23/2024 [id number] Unit Blood Type 03/23/2024 O Pos XM [...] 03/24/2024 2.08 Monocytes % 03/24/2024 7.9 Abs Yancey 03/24/2024 0.50 Eosinophils % 03/24/2024 0.3 Abs [...] 03/11/2024 2.55 Monocytes % 03/11/2024 8.2 Abs Yancey 03/11/2024 0.53 Eosinophils % 03/11/2024 0.2 Abs [...] QTC Calculation (Bazett) 03/05/2024 449 Calculated P [place] 03/05/2024 15 Calculated R [place] 03/05/2024 42 Calculated T [place] 03/05/2024 79 ABO 03/05/2024 B Rh(D) 03/05/2024 [...] Glomerular Jim* 03/05/2024 87 Product Code 03/05/2024 [id number] Product Identification 03/05/2024 Red Blood Cells Status Information 03/05/2024 Transfused Product Expiration Date 03/05/2024 03/31/2024 23:59 Unit Number 03/05/2024 [id number] Unit Blood Type 03/05/2024 B Pos XM RESULT 03/05/2024 Compatible Product Code 03/05/2024 [id number] Product Identification 03/05/2024 Red Blood Cells Status Information 03/05/2024 Transfused Product Expiration Date 03/05/2024 03/20/2024 23:59 Unit Number 03/05/2024 [id number] Unit Blood Type 03/05/2024 B Pos XM [...] today's visit. Transcribed by Rin Gonsalves, virtual medical csr for Vicenta Noriega MD. I, Vicenta Noriega MD, personally performed the services described in this documentation. All medical record entries made by the scribe were at my direction and in my presence. I have reviewed the chart and agree that the record reflects my personal performance and is accurate and complete. Vicenta Noriega MD documented in this encounter [facility] 03-24-2024 Note [facility] 03-13-2024 Note [facility] 03-13-2024 History of Present illness Narrative Joss Oropeza 1945 March 13, [...] 6.7 at PCP office and 6.0 at [facility]. PMHx of chronic anemia (baseline [...] in the past with Dr. Hernandez in [place], last done July 2021 that had one [...] one due to being in hospital in [place] with Hb 5.8. Fatigued and tired all [...] the clinical decision making for today's visit. Vicenta Noriega MD documented in this encounter [facility] 03-09-2024 Telephone encounter Note Per , request to schedule office visit with lab check prior. [facility] 03-09-2024 Miscellaneous Notes Per , request to schedule office visit with lab check prior. Patient called today with concerns about Rytelo infusions. He feels the medication is causing need for transfusions. When do you need a scheduled visit? He questions if you will reduce the dose. 03/06/2024 infusion cancelled due to no medication at pharmacy. (Per Deb, shipment received). documented in this encounter [facility] 03-09-2024 Telephone encounter Note Patient called today with concerns about Rytelo infusions. He feels the medication is causing need for transfusions. When do you need a scheduled visit? He questions if you will reduce the dose. 03/06/2024 infusion cancelled due to no medication at pharmacy. (Per Deb, shipment received). [facility] 02-12-2024 Note Sofía Sharma [facility] 02-12-2024 History of Present illness Narrative Pt arrived to infusion in [...] pt denies questions or needs. Ambulated to lobby per self, no concerns. documented in this encounter [facility] 02-07-2024 History of Present illness Narrative Dr. Zelaya notified of CBC results. Ok to proceed with tx, patient to receive 1 unit PRBC today and 1 next week. documented in this encounter [facility] 02-07-2024 Note [facility] 01-30-2024 Note [facility] 01-30-2024 History of Present illness Narrative Pt arrived to infusion room, [...] complication. Pt denies needs/questions. Pt exited to [facility], slow and steady gate. documented in this encounter [facility] 01-10-2024 Note [facility] 01-10-2024 History of Present illness Narrative January 10, 2024 You have [...] your condition Any questions or concerns Physician: Vicenta Noriega M.D., MPH Follow up with your physician if you any problems. If your physician is unavailable, go to the Emergency Room at [facility]. Plan of care evaluated at discharge by : Danisha Schwartz RN January 10, 2024 If you smoke, Stop! Call [phone] or [phone] for additional information. Please take this form with you to all physician visits. Copy of patient instructions given to patient. Pt does not know all home meds. documented in this encounter [facility] 01-10-2024 History of Present illness Narrative [facility] Department of Pharmacy Oncology Pharmacy Medication Education Patient Name: Joss Oropeza Primary Oncologist: Dr. Zelaya Diagnosis: ROSALINA Oropeza is a 78 year old patient [...] Garry Jameson RPh documented in this encounter [facility] 01-10-2024 Note [facility] 01-10-2024 Note HNO ID: [id number] Author: DANISHA SCHWARTZ, RN Service: ? Author Type: Registered Nurse Type: Progress Notes Filed: 01/10/2024 09:59 Note Text: Pt does not know all home meds. [facility] 12-31-2023 History of Present illness Narrative Joss Oropeza 1945 December 31, [...] 6.7 at PCP office and 6.0 at [facility]. PMHx of chronic anemia (baseline [...] in the past with Dr. Hernandez in [place], last done July 2021 that had one [...] here for follow up and C#1 of [place]. No drug today. Do not have in [...] 9:31am (Patient not taking: Reported on 09/19/2023) BASAGLAR KWEMILYPEN U-100 INSULIN 100 unit/mL (3 mL) Inject [...] Value XM RESULT 09/17/2023 Compatible Expiration Date 09/17/202381681815137965 Product Expiration Date 09/17/2023 10/11/2023 23:59 ISBT Blood Type 09/17/2023 7300 Unit Blood Type 09/17/2023 B Pos Unit Number 09/17/2023 [id number] Status Information 09/17/2023 Issued Final Product Identification 09/17/2023 Red Blood Cells Product Code 09/17/2023 [id number] Issue Date/Time 09/17/[id number] Appointment on 09/17/2023 Component Date Value ABO [...] 09/13/2023 1.65 Monocytes % 09/13/2023 4.5 Abs Yancey 09/13/2023 0.19 Eosinophils % 09/13/2023 0.5 Abs [...] 08/23/2023 1.59 Monocytes % 08/23/2023 5.1 Abs Yancey 08/23/2023 0.21 Eosinophils % 08/23/2023 0.5 Abs [...] 08/02/2023 1.81 Monocytes % 08/02/2023 5.5 Abs Yancey 08/02/2023 0.23 Eosinophils % 08/02/2023 0.2 Abs [...] 07/18/2023 1.59 Monocytes % 07/18/2023 7.7 Abs Yancey 07/18/2023 0.33 Eosinophils % 07/18/2023 0.5 Abs [...] 07/12/2023 1.40 Monocytes % 07/12/2023 2.0 Abs Yancey 07/12/2023 0.06 Eosin% 07/12/2023 0.0 Abs Eosin [...] the clinical decision making for today's visit. Vicenta Noriega MD documented in this encounter [facility] 12-31-2023 History of Present illness Narrative 1040- Dr Zelaya notified of pt's arrival and of expectations for treatment today. 1200-Pt discharged after being seen by Dr Zelaya with discussion of future treatment and will be scheduled to return documented in this encounter [facility] 12-11-2023 History of Present illness Narrative Pt arrived to infusion. VSS, appears well, denies questions or needs. Injections divided between left and right arms, pt tolerated well, ambulated to lobby. Gait steady. documented in this encounter [facility] 11-28-2023 History of Present illness Narrative Joss Oropeza 1945 November 28, [...] 6.7 at PCP office and 6.0 at [facility]. PMHx of chronic anemia (baseline [...] in the past with Dr. Hernandez in [place], last done July 2021 that had one [...] time. Last PRBC 11/20/23. Getting shots in [place] every 3 weeks on Fridays. Getting his [...] Value XM RESULT 11/19/2023 Compatible Expiration Date 11/19/[id number] Product Expiration Date 11/19/2023 11/27/2023 23:59 ISBT Blood Type 11/19/2023 7300 Unit Blood Type 11/19/2023 B Pos Unit Number 11/19/2023 [id number] Status Information 11/19/2023 Issued Final Product Identification 11/19/2023 Red Blood Cells Product Code 11/19/2023 [id number] Issue Date/Time 11/19/2023 [id number] Infusion Center on 11/19/2023 Component Date Value [...] 11/19/2023 1.74 Monocytes % 11/19/2023 6.4 Abs Yancey 11/19/2023 0.30 Eosinophils % 11/19/2023 0.2 Abs [...] 11/06/2023 2.59 Monocytes % 11/06/2023 5.4 Abs Yancey 11/06/2023 0.33 Eosinophils % 11/06/2023 0.2 Abs [...] all were answered to their satisfaction. ? [place] for TOAN I will see him back [...] the clinical decision making for today's visit. Vicenta Noriega MD documented in this encounter [facility] 11-20-2023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 for today's visit. Vicenta Noriega MD documented in this encounter [facility] 03-05-2023 History of Present illness Narrative Joss Oropeza 1945 March 05, [...] 6.7 at PCP office and 6.0 at [facility]. PMHx of chronic anemia (baseline [...] in the past with Dr. Hernandez in [place], last done July 2021 that had one [...] CHOLECYSTECTOMY Cholecystectomy, lap PAST SURGICAL HISTORY OF 01-16- BACK SURGERY PAST SURGICAL HISTORY OF SKIN [...] visit. ALLERGIES Allergen Reactions Maxipime [Cefepime] Unknown Dombywd-Kkg-Nho Red* Other: See Comments, Unknown Leg pain [...] 02/26/2023 1.54 Monocytes % 02/26/2023 8.5 Abs Yancey 02/26/2023 0.33 Eosinophils % 02/26/2023 1.3 Abs [...] Value XM RESULT 02/12/2023 Compatible Expiration Date 02/12/202371490410390660 Product Expiration Date 02/12/2023 03/07/2023 23:59 ISBT Blood Type 02/12/2023 7300 Unit Blood Type 02/12/2023 B Pos Unit Number 02/12/2023 [id number] Status Information 02/12/2023 Issued Final Product Identification 02/12/2023 Red Blood Cells Product Code 02/12/2023 [id number] Issue Date/Time 02/12/202370360724351981 Appointment on 02/12/2023 Component Date Value WBC [...] 02/12/2023 1.63 Monocytes % 02/12/2023 5.4 Abs Yancey 02/12/2023 0.26 Eosinophils % 02/12/2023 0.4 Abs [...] 02/05/2023 1.52 Monocytes % 02/05/2023 5.9 Abs Yancey 02/05/2023 0.27 Eosinophils % 02/05/2023 0.7 Abs [...] 01/22/2023 1.80 Monocytes % 01/22/2023 7.1 Abs Yancey 01/22/2023 0.34 Eosinophils % 01/22/2023 0.8 Abs [...] all were answered to their satisfaction. ? [place] for TOAN Changing to [employer] 02/25/23. *Luspatercept [...] the clinical decision making for today's visit. Vicenta Noriega MD documented in this encounter [facility] 01-02-2023 Telephone encounter Note S: pt calling [...] janumet- see Rx pt states he did mushroom picker the metformin and took his last [...] Protocols used: Information Only Call - No [id number]-[id number]-[id number] [facility] 01-02-2023 Miscellaneous Notes S: pt calling CAC [...] janumet- see Rx pt states he did mushroom picker the metformin and took his last [...] Protocols used: Information Only Call - No Dmropb-WPWGY-YN documented in this encounter [facility] 11-04-2023 Telephone encounter Note S: Patient spoke with [facility] nurse regarding medication concerns B: Onset of [...] policy Protocols used: Medication Refill and Renewal Lyct-QISYT-CN T [facility] 12-29-2022 Miscellaneous Notes S: Patient spoke with [facility] nurse regarding medication concerns B: Onset of [...] policy Protocols used: Medication Refill and Renewal Xqyx-MAZPQ-JS documented in this encounter [facility] 12-11-2022 History of Present illness Narrative Joss Oropeza 1945 December 11, [...] 6.7 at PCP office and 6.0 at [facility]. PMHx of chronic anemia (baseline [...] in the past with Dr. Hernandez in [place], last done July 2021 that had one [...] visit. ALLERGIES Allergen Reactions Maxipime [Cefepime] Unknown Anbiguz-Yos-Jwt Red* Other: See Comments, Unknown Leg pain [...] and will continue eow for now. ? [place] for TOAN The patient and their family [...] the clinical decision making for today's visit. Vicenta Noriega MD documented in this encounter [facility] 11-29-2022 History of Present illness Narrative Pt ambulated to infusion room [...] Fabiola Agarwal RN documented in this encounter [facility] 11-16-2022 History of Present illness Narrative Joss Oropeza 1945 November 16, 2022 Cancer Staging No matching staging information was found for the patient. HPI:Mr. Oropeza is a 77 year old male who presented to ER on 3/28/23 for anemia. This is a 77 year old male who presented with for low hgb from primary care office. Patient states he was 6.7 at PCP office and 6.0 at [facility]. PMHx of chronic anemia (baseline [...] in the past with Dr. Hernandez in [place], last done July 2021 that had one [...] visit. ALLERGIES Allergen Reactions Maxipime [Cefepime] Unknown Nhuynvu-Gcs-Bnc Red* Other: See Comments, Unknown Leg pain [...] the clinical decision making for today's visit. Vicenta Noriega MD documented in this encounter [facility] 10-31-2022 History of Present illness Narrative Pt admitted to infusion room [...] with without incident. documented in this encounter [facility] 10-30-2022 Miscellaneous Notes Blood order received. Verified with blood bank They need a Red Adult order like what was placed on September 11 in order for the Blood Bank to see it Micah Heart MA Orders are in [place]. Rafat Noriega, Following up with you for blood transfusion orders for this patient for [facility]. He came in today and got a CBC and type and screen at [place]. Blood bank is awaiting orders and we can transfuse him tomorrow. Akosua Burch documented in this encounter [facility] 10-11-2022 History of Present illness Narrative Joss Oropeza 1945 October 11, 2022 Cancer Staging No matching staging information was found for the patient. HPI: Mr. Oropeza is a 77 year old male who presented to ER on 05/22/22 for anemia. This is a 76 year old male who presented with for low hgb from primary care office. Patient states he was 6.7 at PCP office and 6.0 at [facility]. PMHx of chronic anemia (baseline [...] in the past with Dr. Hernandez in [place], last done July 2021 that had one [...] visit. ALLERGIES Allergen Reactions Maxipime [Cefepime] Unknown Zqgydwi-Umr-Fcd Red* Other: See Comments, Unknown Leg pain [...] the clinical decision making for today's visit. Vicenta Noriega MD documented in this encounter [facility] 09-11-2022 Instructions Owen Ac APRN.CHRISTOPHER - 09/11/2022 2:25 PM EDT Go to [place] weekly for blood draws documented in this encounter [facility] 09-11-2022 History of Present illness Narrative Joss Oropeza 1945 September 11, [...] 6.7 at PCP office and 6.0 at [facility]. PMHx of chronic anemia (baseline [...] in the past with Dr. Hernandez in [place], last done July 2021 that had one [...] active at home. He lives close to [facility] and would prefer to get his transfusions [...] visit. ALLERGIES Allergen Reactions Maxipime [Cefepime] Unknown Fmdcutb-Qzd-Fea Red* Other: See Comments, Unknown Leg pain [...] try to get him set up in [place] or [place] as he lives in that area 2) Fatigue - due to #1 3) Itching -topical meds -pepcid -benadryl -improved Owen Ac APRN.MEDICAL RECORD LIBRARIAN documented in this encounter [facility] 07-03-2022 History of Present illness Narrative Joss Oropeza 1945 July [birth year], [...] 6.7 at PCP office and 6.0 at [facility]. PMHx of chronic anemia (baseline [...] in the past with Dr. Hernandez in [place], last done July 2021 that had one [...] visit. ALLERGIES Allergen Reactions Maxipime [Cefepime] Unknown Dmwloab-Ijg-Kdu Red* Other: See Comments, Unknown Leg pain [...] 07/03/2022 1.44 Monocytes % 07/03/2022 3.9 Abs Yancey 07/03/2022 0.21 Eosinophils % 07/03/2022 0.2 Abs [...] To order testing on this specimen for [facility] patients, please place an [facility] order for DNA and RNA Clinical Testing (SQNUCADD). To order testing for patients outside of the [facility] system, please request DNA and RNA for Clinical Testing, order code NUCADD. If additional paperwork is required for testing, please send completed forms via secure email to [email or web address]. Chromosome BM 06/01/2022 Value:Laboratory Accession Number: [id number] Doctor: Leann Pathologist: Emeterio Surgical Pathology No: [id number] Clinical diagnosis: Anemia Specimen Type: Bone marrow [...] Philip De Oliveira, PhD, FACMG Performed by [facility]ology and [facility] Division of Molecular Pathology Cytogenetics Lab, [place] [id number] [place] [address]. [place] [address] Toll free: Case Report 06/01/2022 Value:Bone Marrow Pathology Report Case: [id number] Authorizing Provider: Vicenta Noriega MD Collected: 06/01/2022 10:34 AM Ordering Location: [facility] Hematology/Oncology Received: 06/01/2022 11:23 AM Pathologist: Elpidio Storm MD Specimens: A) - BONE MARROW [...] 06/01/2022 1.08 Monocytes % 06/01/2022 5.8 Abs Yancey 06/01/2022 0.25 Eosinophils % 06/01/2022 0.5 Abs [...] here. Case Report 06/01/2022 Value:Flow Cytometry Case: [id number] Authorizing Provider: Vicenta Noriega MD Collected: 06/01/2022 10:34 AM Ordering Location: [facility] Received: 06/01/2022 04:06 PM INTERVENTIONAL RADIOLOGY Pathologist: Malachi Solorzano MD Specimen: Bone Marrow Performing Lab 06/01/2022 Value:This result contains rich text formatting which cannot be displayed here. MYELOID NGS PANEL BONE M* 06/01/2022 Myeloid NGS Panel Bone Marrow Laboratory Accession Number: [id number] Result: Please see linked document and/or separate report for full result when available. As reviewed by Tracy Curtis MD FLT3 ITD HN PANEL BONE M* 06/01/2022 Value:FLT3 Internal Tandem Duplication (ITD) Mutation Testing Laboratory Accession Number: [id number] FLT3 Internal Tandem Duplication (ITD) mutation: Not [...] assess prognosis within myeloid neoplasms. References: 1) Jamaelli MP, Saimati P, Tiacci E, et al. Mutational landscape of AML with normal cytogenetics: biological and clinical implications. Blood Rev.2013;27:13-22. 2) Mingo MISSAEL, Lanre M, Hassan ME, et al. Prognostic relevance of integrated genetic profiling in acute myeloid leukemia. N Engl J Med. 2011May 16;366 (12):1079-89. 3) Erin H, Blair E, Jessenia Lai, et al. Diagnosis and mangement of AML in adults: 2017 ELN recommendations from an international expert panel. Blood [phone] (2017). Disclaimer: This test was developed and its performance characteristics determined [facility] ([facility]). It has not been cleared or approved by the FDA. RT-PLNY is regulated under CLIA as certified to perform high- complexity testing. This test is used for clinical purposes. It should not be regarded as investigational or for research. Testing and interpretation performed at [facility], [address] [place] [address]. CLIA Number: [id number] As reviewed by Philip De Oliveira, PhD, [facility] CLARITY SIGNOUT PATHOLOG* 06/01/2022 [id number] DNA,RNA EXTRACTION REQUI* 06/01/2022 DNA ORIGINAL SPECIMEN 06/01/2022 Bone marrow TOTAL YIELD 06/01/2022 38.934 EXTRACTION METHOD 06/01/2022 [employer] Manual ORIGINAL SPECIMEN COLLEC* 06/01/2022 06-01-22 Admission on 05/22/2022, Discharged on [...] (L) XM RESULT 05/22/2022 Compatible Expiration Date 05/22/202209376488976121 Product Expiration Date 05/22/2022 06/20/2022 23:59 ISBT Blood Type 05/22/2022 5100 Unit Blood Type 05/22/2022 O Pos Unit Number 05/22/2022 [id number] Status Information 05/22/2022 Issued Final Product Identification 05/22/2022 Red Blood Cells Product Code 05/22/2022 [id number] Issue Date/Time 05/22/202259401835415249 ABO 05/23/2022 B Rh(D) 05/23/2022 Positive Glucose, [...] 89 XM RESULT 05/23/2022 Compatible Expiration Date 05/23/202225251361793522 Product Expiration Date 05/23/2022 06/22/2022 23:59 ISBT Blood Type 05/23/2022 7300 Unit Blood Type 05/23/2022 B Pos Unit Number 05/23/2022 [id number] Status Information 05/23/2022 Issued Final Product Identification 05/23/2022 Red Blood Cells Product Code 05/23/2022 [id number] Issue Date/Time 05/23/2022 [id number] Glucose, Point of Care 05/24/2022 175 (A) [...] Case Report 05/25/2022 Value:Surgical Pathology Report Case: [id number] Authorizing Provider: Henrik Brown, Collected: 05/25/2022 02:34 PM Ordering Location: [facility] Received: 05/28/2022 08:54 AM Pathologist: Yunier Phan MD Specimen: RECTAL POLYP FINAL DIAGNOSIS [...] QTC Calculation (Bazett) 05/22/2022 456 Calculated P [place] 05/22/2022 59 Calculated R [place] 05/22/2022 64 Calculated T [place] 05/22/2022 49 Glucose 05/22/2022 134 (H) BUN [...] 05/22/2022 1.44 Monocytes % 05/22/2022 5.1 Abs Yancey 05/22/2022 0.26 Eosinophils % 05/22/2022 0.2 Abs [...] QTC Calculation (Bazett) 05/22/2022 456 Calculated P [place] 05/22/2022 59 Calculated R [place] 05/22/2022 64 Calculated T [place] 05/22/2022 49 FERRITIN BLD Lab Results Component [...] the clinical decision making for today's visit. Vicenta Noriega MD documented in this encounter [facility] 06-01-2022 Surgical operation note INTERVENTIONAL RADIOLOGY POST PROCEDURE NOTE DATE: 06/01/22 NAME: Joss Oropeza LOG ID: [id number] Pre-Procedure Diagnosis: anemia Post Procedure Diagnosis: Same. Network Operations Project Manager: Dr. Teddy Terrazas (Primary) Procedure: Biopsy Anesthesia: Moderate sedation Findings: CT guided bone marrow biopsy right iliac bone. Estimated Blood Loss: Minimal (Less Than 25 mL). 0 ml Specimen: hematology . Complications: None. Full report with procedural details to follow and will become available under Imaging Reports. Please contact for any questions or concerns. documented in this encounter [facility] 06-01-2022 History and physical note INTERVENTIONAL RADIOLOGY PRE-PROCEDURE INTERVAL HISTORY AND PHYSICAL EXAM UPDATE Date: 06/01/22 Name: Joss Oropeza The History and Physical (completed in the past 30 days) has been reviewed and the patient has been examined. The contents accurately reflect the patient's condition with the following additions or revisions since the H&P was completed. Examination indicates no changes. This H&P can be found in the Electronic Medical Record dated 06/01/22. Source Note - Alice Navarro APRN.MEDICAL RECORD LIBRARIAN - 05/22/2022 10:41 PM EDT DEPARTMENT OF HOSPITAL MEDICINE HISTORY AND PHYSICAL EXAM SERVICE DATE: 05/22/2022 SERVICE TIME: 10:41 PM Primary Care Physician: German Robertson MD NIGHT & WEEKEND COVERAGE: From 7am - 7pm, please call Sound attending After 7pm, please call cross cover pager #[phone] Subjective CHIEF COMPLAINT: Abnormal labs HPI: This [...] Unknown ALLERGIES Allergen Reactions Maxipime [Cefepime] Unknown Kotzlmq-Qkz-Tlv Red* Other: See Comments, Unknown Leg pain [...] Enlarged prostate. Fat containing anterior abdominal hernia. Foundry Process Engineer: DIVINA Transcribe Date/Time: May 22 2022 5:23P Dictated [...] 22, 2022 TIME: 10:41 PM PAGER/CONTACT #: [phone] documented in this encounter [facility] Evaluation note Diagnosis Onset Date Encounter for screening colonoscopy acute [facility] Work Phone: evaluation note* Diagnosis Onset Date Resolution Status Obesity acute Diabetes chronic HTN (hypertension) chronic [facility] Work Phone: Evaluation note* Diagnosis Anemia, unspecified type [facility], unspecified type- [facility] Diagnosis Anemia, unspecified type- Primary [facility] Diagnosis Anemia, unspecified type Anemia, unspecified type- Primary [facility] Diagnosis Anemia, unspecified type- Primary [facility] Diagnosis Anemia, unspecified type- Primary Cancer of unknown origin (HCC) Other malignant neoplasm without specification of site [facility] Diagnosis Cancer of unknown origin (HCC)- Primary Other malignant neoplasm without specification of site [facility] Diagnosis Anemia, unspecified type- Primary Cancer of unknown origin (HCC) Other malignant neoplasm without specification of site [facility] Diagnosis Anemia, unspecified type- Primary Cancer of unknown origin (HCC) Other malignant neoplasm without specification of site [facility] Diagnosis Cancer of unknown origin (HCC)- Primary Other malignant neoplasm without specification of site [facility] Diagnosis TIA (transient ischemic attack)- Primary Unspecified transient cerebral ischemia [facility] Diagnosis Anemia, unspecified type- Primary 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) Thrombocytopenia, unspecified [facility] Diagnosis Cancer of unknown origin (HCC)- Primary Other malignant neoplasm without specification of site Anemia, unspecified type [facility] Diagnosis Cancer of unknown origin (HCC)- Primary Other malignant neoplasm without specification of site Myelodysplastic syndrome, unspecified (HCC) Myelodysplastic syndrome, unspecified Anemia, unspecified type documented in this encounter [facility] note* Diagnosis Cancer of unknown origin (HCC)- Primary Other malignant neoplasm without specification of site Anemia, unspecified type Clonal cytopenia of undetermined significance (CCUS) documented in this encounter [facility] note* Diagnosis Anemia, unspecified type- Primary Clonal cytopenia of undetermined significance (CCUS) documented in this encounter [facility] note* Diagnosis Anemia, unspecified type- Primary Clonal cytopenia of undetermined significance (CCUS) documented in this encounter [facility] note* Diagnosis Myelodysplastic syndrome, unspecified (HCC)- Primary Myelodysplastic syndrome, unspecified Anemia, unspecified type documented in this encounter [facility] note* Diagnosis Myelodysplastic syndrome, unspecified (HCC)- Primary Myelodysplastic syndrome, unspecified Platelets decreased (HCC) Thrombocytopenia, unspecified Anemia, unspecified type documented in this encounter [facility] note* Diagnosis Myelodysplastic syndrome, unspecified (HCC)- Primary Myelodysplastic syndrome, unspecified Anemia, unspecified type Platelets decreased (HCC) Thrombocytopenia, unspecified documented in this encounter [facility] note* Diagnosis Cancer of unknown origin (HCC)- Primary Other malignant neoplasm without specification of site Myelodysplastic syndrome, unspecified (HCC) Myelodysplastic syndrome, unspecified Anemia, unspecified type documented in this encounter [facility] note* Diagnosis Myelodysplastic syndrome, unspecified (HCC)- Primary Myelodysplastic syndrome, unspecified documented in this encounter [facility] note* Diagnosis Cancer of unknown origin (HCC)- Primary Other malignant neoplasm without specification of site Myelodysplastic syndrome, unspecified (HCC) Myelodysplastic syndrome, unspecified Anemia, unspecified type TIA (transient ischemic attack)- Primary Unspecified transient cerebral ischemia documented in this encounter [facility] note* Diagnosis Myelodysplastic syndrome, unspecified (HCC)- Primary Myelodysplastic syndrome, unspecified TIA (transient ischemic attack)- Primary Unspecified transient cerebral ischemia documented in this encounter [facility] note* Diagnosis Anemia, unspecified type- Primary Myelodysplastic syndrome, unspecified (HCC) Myelodysplastic syndrome, unspecified TIA (transient ischemic attack)- Primary Unspecified transient cerebral ischemia documented in this encounter [facility] note* Diagnosis TIA (transient ischemic attack)- Primary Unspecified transient cerebral ischemia Wenckebach Other second degree atrioventricular block SVT (supraventricular tachycardia) (HCC) Other specified cardiac dysrhythmias documented in this encounter [facility] note* Diagnosis Cancer of unknown origin (HCC)- Primary Other malignant neoplasm without specification of site Myelodysplastic syndrome, unspecified (HCC) Myelodysplastic syndrome, unspecified documented in this encounter [facility] note* Diagnosis Cancer of unknown origin (HCC)- Primary Other malignant neoplasm without specification of site Myelodysplastic syndrome, unspecified (HCC) Myelodysplastic syndrome, unspecified Clonal cytopenia of undetermined significance (CCUS) documented in this encounter [facility] note* Diagnosis Myelodysplastic syndrome, unspecified (HCC)- Primary Myelodysplastic syndrome, unspecified Clonal cytopenia of undetermined significance (CCUS) documented in this encounter [facility] note* Diagnosis Anemia, unspecified type- Primary documented in this encounter [facility] note* Diagnosis Cancer of unknown origin (HCC)- Primary Other malignant neoplasm without specification of site Myelodysplastic syndrome, unspecified (HCC) Myelodysplastic syndrome, unspecified Clonal cytopenia of undetermined significance (CCUS) documented in this encounter [facility] note* Diagnosis Anemia, unspecified type- Primary Myelodysplastic syndrome, unspecified (HCC) Myelodysplastic syndrome, unspecified documented in this encounter [facility] note* Diagnosis Cancer of unknown origin (HCC)- Primary Other malignant neoplasm without specification of site Myelodysplastic syndrome, unspecified (HCC) Myelodysplastic syndrome, unspecified documented in this encounter [facility] note* Diagnosis Myelodysplastic syndrome, unspecified (HCC)- Primary Myelodysplastic syndrome, unspecified documented in this encounter [facility] note* Diagnosis Myelodysplastic syndrome, unspecified (HCC)- Primary Myelodysplastic syndrome, unspecified documented in this encounter [facility] note* Diagnosis Myelodysplastic syndrome, unspecified (HCC)- Primary Myelodysplastic syndrome, unspecified Cancer of unknown origin (HCC) Other malignant neoplasm without specification of site documented in this encounter [facility] note* Diagnosis Myelodysplastic syndrome, unspecified (HCC)- Primary Myelodysplastic syndrome, unspecified Clonal cytopenia of undetermined significance (CCUS) Anemia, unspecified type Platelets decreased (HCC) Thrombocytopenia, unspecified documented in this encounter [facility] note* Diagnosis Myelodysplastic syndrome, unspecified (HCC)- Primary Myelodysplastic syndrome, unspecified documented in this encounter [facility] note* Diagnosis Anemia, unspecified type- Primary Myelodysplastic syndrome, unspecified (HCC) Myelodysplastic syndrome, unspecified documented in this encounter [facility] note* Diagnosis Myelodysplastic syndrome, unspecified (HCC)- Primary Myelodysplastic syndrome, unspecified Clonal cytopenia of undetermined significance (CCUS) Anemia, unspecified type documented in this encounter [facility] note* Diagnosis Myelodysplastic syndrome, unspecified (HCC)- Primary Myelodysplastic syndrome, unspecified Anemia, unspecified type documented in this encounter [facility] note* Diagnosis Cancer of unknown origin (HCC)- Primary Other malignant neoplasm without specification of site Myelodysplastic syndrome, unspecified (HCC) Myelodysplastic syndrome, unspecified Anemia, unspecified type documented in this encounter [facility] note* Diagnosis Anemia, unspecified type- Primary Myelodysplastic syndrome, unspecified (HCC) Myelodysplastic syndrome, unspecified documented in this encounter [facility] note* Diagnosis Myelodysplastic syndrome, unspecified (HCC)- Primary Myelodysplastic syndrome, unspecified documented in this encounter [facility] note* Diagnosis Cancer of unknown origin (HCC)- Primary Other malignant neoplasm without specification of site Myelodysplastic syndrome, unspecified (HCC) Myelodysplastic syndrome, unspecified documented in this encounter [facility] note* Diagnosis Anemia, unspecified type- Primary Myelodysplastic syndrome, unspecified (HCC) Myelodysplastic syndrome, unspecified documented in this encounter [facility] note* Diagnosis Myelodysplastic syndrome, unspecified (HCC)- Primary Myelodysplastic syndrome, unspecified 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) Thrombocytopenia, unspecified Anemia, unspecified type documented in this encounter [facility] note* Diagnosis Myelodysplastic syndrome, unspecified (HCC)- Primary Myelodysplastic syndrome, unspecified 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) Thrombocytopenia, unspecified Anemia, unspecified type documented in this encounter [facility] note* Diagnosis Myelodysplastic syndrome, unspecified (HCC)- Primary Myelodysplastic syndrome, unspecified Anemia, unspecified type Cancer of unknown origin (HCC) Other malignant neoplasm without specification of site documented in this encounter [facility] note* Diagnosis Anemia, unspecified type- Primary Myelodysplastic syndrome, unspecified (HCC) Myelodysplastic syndrome, unspecified documented in this encounter [facility] note* Diagnosis Myelodysplastic syndrome, unspecified (HCC)- Primary Myelodysplastic syndrome, unspecified documented in this encounter [facility] note* Diagnosis Myelodysplastic syndrome, unspecified (HCC)- Primary Myelodysplastic syndrome, unspecified 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) Thrombocytopenia, unspecified Anemia, unspecified type documented in this encounter [facility] note* Diagnosis Anemia, unspecified type- Primary Myelodysplastic syndrome, unspecified (HCC) Myelodysplastic syndrome, unspecified Cancer of unknown origin (HCC) Other malignant neoplasm without specification of site documented in this encounter [facility] note* Diagnosis Myelodysplastic syndrome, unspecified (HCC)- Primary Myelodysplastic syndrome, unspecified Clonal cytopenia of undetermined significance (CCUS) documented in this encounter [facility] note* Diagnosis Cancer of unknown origin (HCC)- Primary Other malignant neoplasm without specification of site Myelodysplastic syndrome, unspecified (HCC) Myelodysplastic syndrome, unspecified Clonal cytopenia of undetermined significance (CCUS) Anemia, unspecified type documented in this encounter [facility] note* Diagnosis Anemia, unspecified type- Primary Myelodysplastic syndrome, unspecified (HCC) Myelodysplastic syndrome, unspecified documented in this encounter [facility] note* Diagnosis Myelodysplastic syndrome, unspecified (HCC) Myelodysplastic syndrome, unspecified Clonal cytopenia of undetermined significance (CCUS) documented in this encounter [facility] note* Diagnosis MDS (myelodysplastic syndrome) (HCC)- Primary Myelodysplastic syndrome, unspecified documented in this encounter [facility] note* Diagnosis MDS (myelodysplastic syndrome) (HCC)- Primary Myelodysplastic syndrome, unspecified documented in this encounter [facility] note* Diagnosis Anemia, unspecified type- Primary Myelodysplastic syndrome, unspecified (HCC) Myelodysplastic syndrome, unspecified documented in this encounter [facility] note* Diagnosis Myelodysplastic syndrome, unspecified (HCC)- Primary Myelodysplastic syndrome, unspecified Clonal cytopenia of undetermined significance (CCUS) Anemia, unspecified type documented in this encounter [facility] note* Diagnosis MDS (myelodysplastic syndrome) (HCC)- Primary Myelodysplastic syndrome, unspecified documented in this encounter [facility] note* Diagnosis Anemia, unspecified type- Primary Myelodysplastic syndrome, unspecified (HCC) Myelodysplastic syndrome, unspecified documented in this encounter [facility] noteNo assessment information availableWOhioHealth [facility] Work Phone: Evaluation note* Diagnosis Myelodysplastic syndrome, unspecified (HCC)- Primary Myelodysplastic syndrome, unspecified Clonal cytopenia of undetermined significance (CCUS) Anemia, unspecified type Platelets decreased Thrombocytopenia, unspecified documented in this encounter [facility] note* Diagnosis Anemia, unspecified type- Primary Myelodysplastic syndrome, unspecified (HCC) Myelodysplastic syndrome, unspecified documented in this encounter [facility] note* Diagnosis Myelodysplastic syndrome, unspecified (HCC)- Primary Myelodysplastic syndrome, unspecified Anemia, unspecified type documented in this encounter [facility] note* Diagnosis Myelodysplastic syndrome, unspecified (HCC)- Primary Myelodysplastic syndrome, unspecified documented in this encounter [facility] note* Diagnosis Anemia, unspecified type- Primary Myelodysplastic syndrome, unspecified (HCC) Myelodysplastic syndrome, unspecified documented in this encounter [facility] note* Diagnosis Anemia, unspecified type- Primary Myelodysplastic syndrome, unspecified (HCC) Myelodysplastic syndrome, unspecified documented in this encounter [facility] note* Diagnosis Myelodysplastic syndrome, unspecified (HCC)- Primary Myelodysplastic syndrome, unspecified documented in this encounter [facility] note* Diagnosis Myelodysplastic syndrome, unspecified (HCC)- Primary Myelodysplastic syndrome, unspecified Clonal cytopenia of undetermined significance (CCUS) Anemia, unspecified type documented in this encounter [facility] note* Diagnosis Myelodysplastic syndrome, unspecified (HCC)- Primary Myelodysplastic syndrome, unspecified Anemia, unspecified type Vitamin D deficiency, unspecified MDS (myelodysplastic syndrome) (HCC) Myelodysplastic syndrome, unspecified documented in this encounter [facility] note* Diagnosis Myelodysplastic syndrome, unspecified (HCC)- Primary Myelodysplastic syndrome, unspecified Anemia, unspecified type documented in this encounter [facility] note* Diagnosis Myelodysplastic syndrome, unspecified (HCC)- Primary Myelodysplastic syndrome, unspecified documented in this encounter [facility] note* Diagnosis Myelodysplastic syndrome, unspecified (HCC)- Primary Myelodysplastic syndrome, unspecified documented in this encounter [facility] note* Diagnosis Myelodysplastic syndrome, unspecified (HCC)- Primary Myelodysplastic syndrome, unspecified Anemia, unspecified type Clonal cytopenia of undetermined significance (CCUS) documented in this encounter [facility] note* Diagnosis Anemia, unspecified type- Primary Myelodysplastic syndrome, unspecified (HCC) Myelodysplastic syndrome, unspecified documented in this encounter [facility] note* Diagnosis Myelodysplastic syndrome, unspecified (HCC)- Primary Myelodysplastic syndrome, unspecified documented in this encounter [facility] note* Diagnosis Anemia, unspecified type- Primary Myelodysplastic syndrome, unspecified (HCC) Myelodysplastic syndrome, unspecified documented in this encounter [facility] note* Diagnosis Myelodysplastic syndrome, unspecified (HCC)- Primary Myelodysplastic syndrome, unspecified Myelodysplastic syndrome, unspecified (HCC)- Primary Myelodysplastic syndrome, unspecified [facility]No reason for referral information availableBarn[facility]ville [facility] Work Phone: Reason for visit Narrative* Outpatient Procedure (Routine) - Authorized Specialty Diagnoses / Procedures Referred By Contmanuel t Referred To Contact [facility] Diagnoses BROOM HANDLE DIPPER LOWELL AUTH EXP 02/24/25 KM Procedures TREATMENT 5 HOURS Vicenta Noriega MD [address] [address] Ciaran Treat [facility] [address] [place] [address] Referral ID Status Reason Start Date Expiration Date V isits Requested Visits Authorized [id number] Authorized 01/08/2024 02/24/2025 1 99 [facility] for visit Narrative* Fisher Prior Authorization (Routine) - Authorized Specialty Diagnoses / Procedures Referred By Contac t Referred To Contact Diagnoses Myelodysplastic syndrome, unspecified (HCC) Vicenta Noriega MD [address] [place] [address] Phone: tel: fax: INFUSION [address] [place] [address] Phone: tel: fax: Referral ID Status Reason Start Date Expiration Date V isits Requested Visits Authorized [id number] Authorized 08/11/2024 11/10/2024 1 16 [facility] for visit Narrative* Fisher Prior Authorization (Routine) - Authorized Specialty Diagnoses / Procedures Referred By Contac t Referred To Contact Diagnoses Myelodysplastic syndrome, unspecified (HCC) Procedures EPOETIN KHLOE, NON-ESRD Vicenta Noriega MD [address] [place] [address] Phone: tel: fax: INFUSION [address] [place] [address] Phone: tel: fax: Referral ID Status Reason Start Date Expiration Date Visits Requested Visits Authorized [id number] Authorized Patient Cleared - Admin/Chairm an/Director advise to proceed or did not respond 08/11/2024 01/05/2025 1 16 [facility] Summary Purpose Family History No Family History [...] Date/ Time Name of Medical Power of Film Vault Supervisor September 05, 2021 12:34pm Living Will Yes September 05, 2021 12:34pm Power of Film Vault Supervisor Yes September 05 12:34pm Advance Directive Response Recorded Date/ Time Living Will Yes September 05, 2021 12:34pm Power of Film Vault Supervisor Yes September 05 12:34pm Date Activated Date Inactivated Comments 06/08/2023 11:10 PM 06/10/2023 9:11 PM Date Activated Date Inactivated Comments 06/08/2023 11:10 PM 06/10/2023 9:11 PM Question Answer Comments Full Code Order Discussed With: Patient Date Activated Date Inactivated Comments 06/09/2024 5:58 PM 06/19/2024 9:20 PM Date Activated Date Inactivated Comments 06/06/2024 11:21 [...] Visit Obesity Diabetes HTN (hypertension) Chief Complaint Admit Date A RAY ABDOMEN KUB August 09, 2024 3:26 pm Chief Complaint Admit Date A RAY ABDOMEN KUB August 09, 2024 3:26 pm RADICULOPATHY October 15, 2024 1: 26pm Medications Administered Section Inactive Administered Medications - [...] Referral Specialty Diagnoses / Procedures Referred By Jennifer t Referred To Contact Cardiology Diagnoses [place]enckebach SVT (supraventricular tachycardia) ([facility]) Procedures CONSULT TO CARDIOLOGY OFFICE/OUTPATIENT [facility] 60 MINUTES Rowena Guerra APRN.MEDICAL RECORD LIBRARIAN [address] [place] [address] Referral ID Status Reason Start Date Expiration Date Visits Requested Visits Authorized [id number] Authorized PCP Requested Referral 09/19/2023 09/18/2024 1 1 Additional Source Comments (unrecognized sect ion and content) No Status Records FoundNo Status Records FoundNo Status Records FoundNo Status Records FoundNo Status Records FoundNo Status Records FoundNo Status Records FoundNo Status Records FoundNo Status Records Found INFORMATION SOURCE (unrecogn ized section and content) DATE CREATED AUTHOR 08/15/2017 [facility] DATE CREATED AUTHOR AUTHOR'S ORGANIZ ATION 08/20/2017 [facility] DATE CREATED AUTHOR AUTHOR'S ORGANIZ ATION 06/20/2023 [facility] DATE CREATED AUTHOR AUTHOR'S ORGANIZ ATION 08/12/2024 [facility] DATE CREATED AUTHOR AUTHOR'S ORGANIZ ATION 10/23/2024 [facility] DATE CREATED AUTHOR AUTHOR'S ORGANIZ ATION 01/02/2025 [facility] DATE CREATED AUTHOR AUTHOR'S ORGANIZ ATION 01/04/2025 [facility] DATE CREATED AUTHOR AUTHOR'S ORGANIZ ATION 01/05/2025 [facility] DATE CREATED AUTHOR AUTHOR'S ORGANIZ ATION 01/07/2025 [facility] Source Comments (unrecognize d section and content) In the event this informatio n is protected by the Federal Confidentiality of Alcohol and Drug Abuse Patient Records regulations: The Federal rules restrict any use of the information to criminally investigate or prosecute any alcohol or drug abuse patient.[facility] Hospital[facility] the event this information is protected by the Federal Confidentiality of Alcohol and Drug Abuse Patient Records regulations: The Federal rules restrict any use of the information to criminally investigate or prosecute any alcohol or drug abuse patient.[facility] HospitalIn the event this information is protected by the Federal Confidentiality of Alcohol and Drug Abuse Patient Records regulations: The Federal rules restrict any use of the information to criminally investigate or prosecute any alcohol or drug abuse patient.[facility] HospitalIn the event this information is protected by the Federal Confidentiality of Alcohol and Drug Abuse Patient Records regulations: The Federal rules restrict any use of the information to criminally investigate or prosecute any alcohol or drug abuse patient.[facility] HospitalIn the event this information is protected by the Federal Confidentiality of Alcohol and Drug Abuse Patient Records regulations: The Federal rules restrict any use of the information to criminally investigate or prosecute any alcohol or drug abuse patient.[facility] HospitalIn the event this information is protected by the Federal Confidentiality of Alcohol and Drug Abuse Patient Records regulations: The Federal rules restrict any use of the information to criminally investigate or prosecute any alcohol or drug abuse patient.[facility] HospitalIn the event this information is protected by the Federal Confidentiality of Alcohol and Drug Abuse Patient Records regulations: The Federal rules restrict any use of the information to criminally investigate or prosecute any alcohol or drug abuse patient.[facility] HospitalIn the event this information is protected by the Federal Confidentiality of Alcohol and Drug Abuse Patient Records regulations: The Federal rules restrict any use of the information to criminally investigate or prosecute any alcohol or drug abuse patient.[facility] HospitalIn the event this information is protected by the Federal Confidentiality of Alcohol and Drug Abuse Patient Records regulations: The Federal rules restrict any use of the information to criminally investigate or prosecute any alcohol or drug abuse patient.[facility] HospitalIn the event this information is protected by the Federal Confidentiality of Alcohol and Drug Abuse Patient Records regulations: The Federal rules restrict any use of the information to criminally investigate or prosecute any alcohol or drug abuse patient.[facility] HospitalIn the event this information is protected by the Federal Confidentiality of Alcohol and Drug Abuse Patient Records regulations: The Federal rules restrict any use of the information to criminally investigate or prosecute any alcohol or drug abuse patient.[facility] HospitalIn the event this information is protected by the Federal Confidentiality of Alcohol and Drug Abuse Patient Records regulations: The Federal rules restrict any use of the information to criminally investigate or prosecute any alcohol or drug abuse patient.[facility] HospitalIn the event this information is protected by the Federal Confidentiality of Alcohol and Drug Abuse Patient Records regulations: The Federal rules restrict any use of the information to criminally investigate or prosecute any alcohol or drug abuse patient.[facility] HospitalIn the event this information is protected by the Federal Confidentiality of Alcohol and Drug Abuse Patient Records regulations: The Federal rules restrict any use of the information to criminally investigate or prosecute any alcohol or drug abuse patient.[facility] HospitalIn the event this information is protected by the Federal Confidentiality of Alcohol and Drug Abuse Patient Records regulations: The Federal rules restrict any use of the information to criminally investigate or prosecute any alcohol or drug abuse patient.[facility] HospitalIn the event this information is protected by the Federal Confidentiality of Alcohol and Drug Abuse Patient Records regulations: The Federal rules restrict any use of the information to criminally investigate or prosecute any alcohol or drug abuse patient.[facility] HospitalIn the event this information is protected by the Federal Confidentiality of Alcohol and Drug Abuse Patient Records regulations: The Federal rules restrict any use of the information to criminally investigate or prosecute any alcohol or drug abuse patient.[facility] HospitalIn the event this information is protected by the Federal Confidentiality of Alcohol and Drug Abuse Patient Records regulations: The Federal rules restrict any use of the information to criminally investigate or prosecute any alcohol or drug abuse patient.[facility] HospitalIn the event this information is protected by the Federal Confidentiality of Alcohol and Drug Abuse Patient Records regulations: The Federal rules restrict any use of the information to criminally investigate or prosecute any alcohol or drug abuse patient.[facility] HospitalIn the event this information is protected by the Federal Confidentiality of Alcohol and Drug Abuse Patient Records regulations: The Federal rules restrict any use of the information to criminally investigate or prosecute any alcohol or drug abuse patient.[facility] HospitalIn the event this information is protected by the Federal Confidentiality of Alcohol and Drug Abuse Patient Records regulations: The Federal rules restrict any use of the information to criminally investigate or prosecute any alcohol or drug abuse patient.[facility] HospitalIn the event this information is protected by the Federal Confidentiality of Alcohol and Drug Abuse Patient Records regulations: The Federal rules restrict any use of the information to criminally investigate or prosecute any alcohol or drug abuse patient.[facility] HospitalIn the event this information is protected by the Federal Confidentiality of Alcohol and Drug Abuse Patient Records regulations: The Federal rules restrict any use of the information to criminally investigate or prosecute any alcohol or drug abuse patient.[facility] HospitalIn the event this information is protected by the Federal Confidentiality of Alcohol and Drug Abuse Patient Records regulations: The Federal rules restrict any use of the information to criminally investigate or prosecute any alcohol or drug abuse patient.[facility] HospitalIn the event this information is protected by the Federal Confidentiality of Alcohol and Drug Abuse Patient Records regulations: The Federal rules restrict any use of the information to criminally investigate or prosecute any alcohol or drug abuse patient.[facility] HospitalIn the event this information is protected by the Federal Confidentiality of Alcohol and Drug Abuse Patient Records regulations: The Federal rules restrict any use of the information to criminally investigate or prosecute any alcohol or drug abuse patient.[facility] HospitalIn the event this information is protected by the Federal Confidentiality of Alcohol and Drug Abuse Patient Records regulations: The Federal rules restrict any use of the information to criminally investigate or prosecute any alcohol or drug abuse patient.[facility] HospitalIn the event this information is protected by the Federal Confidentiality of Alcohol and Drug Abuse Patient Records regulations: The Federal rules restrict any use of the information to criminally investigate or prosecute any alcohol or drug abuse patient.[facility] ClinicIn the event this information is protected by the Federal Confidentiality of Alcohol and Drug Abuse Patient Records regulations: The Federal rules restrict any use of the information to criminally investigate or prosecute any alcohol or drug abuse patient.[facility] HospitalIn the event this information is protected by the Federal Confidentiality of Alcohol and Drug Abuse Patient Records regulations: The Federal rules restrict any use of the information to criminally investigate or prosecute any alcohol or drug abuse patient.[facility] HospitalIn the event this information is protected by the Federal Confidentiality of Alcohol and Drug Abuse Patient Records regulations: The Federal rules restrict any use of the information to criminally investigate or prosecute any alcohol or drug abuse patient.[facility] HospitalIn the event this information is protected by the Federal Confidentiality of Alcohol and Drug Abuse Patient Records regulations: The Federal rules restrict any use of the information to criminally investigate or prosecute any alcohol or drug abuse patient.[facility] HospitalIn the event this information is protected by the Federal Confidentiality of Alcohol and Drug Abuse Patient Records regulations: The Federal rules restrict any use of the information to criminally investigate or prosecute any alcohol or drug abuse patient.[facility] HospitalIn the event this information is protected by the Federal Confidentiality of Alcohol and Drug Abuse Patient Records regulations: The Federal rules restrict any use of the information to criminally investigate or prosecute any alcohol or drug abuse patient.[facility] HospitalIn the event this information is protected by the Federal Confidentiality of Alcohol and Drug Abuse Patient Records regulations: The Federal rules restrict any use of the information to criminally investigate or prosecute any alcohol or drug abuse patient.[facility] HospitalIn the event this information is protected by the Federal Confidentiality of Alcohol and Drug Abuse Patient Records regulations: The Federal rules restrict any use of the information to criminally investigate or prosecute any alcohol or drug abuse patient.[facility] HospitalIn the event this information is protected by the Federal Confidentiality of Alcohol and Drug Abuse Patient Records regulations: The Federal rules restrict any use of the information to criminally investigate or prosecute any alcohol or drug abuse patient.[facility] HospitalIn the event this information is protected by the Federal Confidentiality of Alcohol and Drug Abuse Patient Records regulations: The Federal rules restrict any use of the information to criminally investigate or prosecute any alcohol or drug abuse patient.[facility] HospitalIn the event this information is protected by the Federal Confidentiality of Alcohol and Drug Abuse Patient Records regulations: The Federal rules restrict any use of the information to criminally investigate or prosecute any alcohol or drug abuse patient.[facility] HospitalIn the event this information is protected by the Federal Confidentiality of Alcohol and Drug Abuse Patient Records regulations: The Federal rules restrict any use of the information to criminally investigate or prosecute any alcohol or drug abuse patient.[facility] HospitalIn the event this information is protected by the Federal Confidentiality of Alcohol and Drug Abuse Patient Records regulations: The Federal rules restrict any use of the information to criminally investigate or prosecute any alcohol or drug abuse patient.[facility] HospitalIn the event this information is protected by the Federal Confidentiality of Alcohol and Drug Abuse Patient Records regulations: The Federal rules restrict any use of the information to criminally investigate or prosecute any alcohol or drug abuse patient.[facility] HospitalIn the event this information is protected by the Federal Confidentiality of Alcohol and Drug Abuse Patient Records regulations: The Federal rules restrict any use of the information to criminally investigate or prosecute any alcohol or drug abuse patient.[facility] HospitalIn the event this information is protected by the Federal Confidentiality of Alcohol and Drug Abuse Patient Records regulations: The Federal rules restrict any use of the information to criminally investigate or prosecute any alcohol or drug abuse patient.[facility] HospitalIn the event this information is protected by the Federal Confidentiality of Alcohol and Drug Abuse Patient Records regulations: The Federal rules restrict any use of the information to criminally investigate or prosecute any alcohol or drug abuse patient.[facility] HospitalIn the event this information is protected by the Federal Confidentiality of Alcohol and Drug Abuse Patient Records regulations: The Federal rules restrict any use of the information to criminally investigate or prosecute any alcohol or drug abuse patient.[facility] HospitalIn the event this information is protected by the Federal Confidentiality of Alcohol and Drug Abuse Patient Records regulations: The Federal rules restrict any use of the information to criminally investigate or prosecute any alcohol or drug abuse patient.[facility] HospitalIn the event this information is protected by the Federal Confidentiality of Alcohol and Drug Abuse Patient Records regulations: The Federal rules restrict any use of the information to criminally investigate or prosecute any alcohol or drug abuse patient.[facility] HospitalIn the event this information is protected by the Federal Confidentiality of Alcohol and Drug Abuse Patient Records regulations: The Federal rules restrict any use of the information to criminally investigate or prosecute any alcohol or drug abuse patient.[facility] HospitalIn the event this information is protected by the Federal Confidentiality of Alcohol and Drug Abuse Patient Records regulations: The Federal rules restrict any use of the information to criminally investigate or prosecute any alcohol or drug abuse patient.[facility] HospitalIn the event this information is protected by the Federal Confidentiality of Alcohol and Drug Abuse Patient Records regulations: The Federal rules restrict any use of the information to criminally investigate or prosecute any alcohol or drug abuse patient.[facility] HospitalIn the event this information is protected by the Federal Confidentiality of Alcohol and Drug Abuse Patient Records regulations: The Federal rules restrict any use of the information to criminally investigate or prosecute any alcohol or drug abuse patient.[facility] HospitalIn the event this information is protected by the Federal Confidentiality of Alcohol and Drug Abuse Patient Records regulations: The Federal rules restrict any use of the information to criminally investigate or prosecute any alcohol or drug abuse patient.[facility] HospitalIn the event this information is protected by the Federal Confidentiality of Alcohol and Drug Abuse Patient Records regulations: The Federal rules restrict any use of the information to criminally investigate or prosecute any alcohol or drug abuse patient.[facility] HospitalIn the event this information is protected by the Federal Confidentiality of Alcohol and Drug Abuse Patient Records regulations: The Federal rules restrict any use of the information to criminally investigate or prosecute any alcohol or drug abuse patient.[facility] HospitalIn the event this information is protected by the Federal Confidentiality of Alcohol and Drug Abuse Patient Records regulations: The Federal rules restrict any use of the information to criminally investigate or prosecute any alcohol or drug abuse patient.[facility] HospitalIn the event this information is protected by the Federal Confidentiality of Alcohol and Drug Abuse Patient Records regulations: The Federal rules restrict any use of the information to criminally investigate or prosecute any alcohol or drug abuse patient.[facility] HospitalIn the event this information is protected by the Federal Confidentiality of Alcohol and Drug Abuse Patient Records regulations: The Federal rules restrict any use of the information to criminally investigate or prosecute any alcohol or drug abuse patient.[facility] HospitalIn the event this information is protected by the Federal Confidentiality of Alcohol and Drug Abuse Patient Records regulations: The Federal rules restrict any use of the information to criminally investigate or prosecute any alcohol or drug abuse patient.[facility] HospitalIn the event this information is protected by the Federal Confidentiality of Alcohol and Drug Abuse Patient Records regulations: The Federal rules restrict any use of the information to criminally investigate or prosecute any alcohol or drug abuse patient.[facility] HospitalIn the event this information is protected by the Federal Confidentiality of Alcohol and Drug Abuse Patient Records regulations: The Federal rules restrict any use of the information to criminally investigate or prosecute any alcohol or drug abuse patient.[facility] HospitalIn the event this information is protected by the Federal Confidentiality of Alcohol and Drug Abuse Patient Records regulations: The Federal rules restrict any use of the information to criminally investigate or prosecute any alcohol or drug abuse patient.[facility] HospitalIn the event this information is protected by the Federal Confidentiality of Alcohol and Drug Abuse Patient Records regulations: The Federal rules restrict any use of the information to criminally investigate or prosecute any alcohol or drug abuse patient.[facility] HospitalIn the event this information is protected by the Federal Confidentiality of Alcohol and Drug Abuse Patient Records regulations: The Federal rules restrict any use of the information to criminally investigate or prosecute any alcohol or drug abuse patient.[facility] HospitalIn the event this information is protected by the Federal Confidentiality of Alcohol and Drug Abuse Patient Records regulations: The Federal rules restrict any use of the information to criminally investigate or prosecute any alcohol or drug abuse patient.[facility] HospitalIn the event this information is protected by the Federal Confidentiality of Alcohol and Drug Abuse Patient Records regulations: The Federal rules restrict any use of the information to criminally investigate or prosecute any alcohol or drug abuse patient.[facility] HospitalIn the event this information is protected by the Federal Confidentiality of Alcohol and Drug Abuse Patient Records regulations: The Federal rules restrict any use of the information to criminally investigate or prosecute any alcohol or drug abuse patient.[facility] HospitalIn the event this information is protected by the Federal Confidentiality of Alcohol and Drug Abuse Patient Records regulations: The Federal rules restrict any use of the information to criminally investigate or prosecute any alcohol or drug abuse patient.[facility] HospitalIn the event this information is protected by the Federal Confidentiality of Alcohol and Drug Abuse Patient Records regulations: The Federal rules restrict any use of the information to criminally investigate or prosecute any alcohol or drug abuse patient.[facility] HospitalIn the event this information is protected by the Federal Confidentiality of Alcohol and Drug Abuse Patient Records regulations: The Federal rules restrict any use of the information to criminally investigate or prosecute any alcohol or drug abuse patient.[facility] HospitalIn the event this information is protected by the Federal Confidentiality of Alcohol and Drug Abuse Patient Records regulations: The Federal rules restrict any use of the information to criminally investigate or prosecute any alcohol or drug abuse patient.[facility] HospitalIn the event this information is protected by the Federal Confidentiality of Alcohol and Drug Abuse Patient Records regulations: The Federal rules restrict any use of the information to criminally investigate or prosecute any alcohol or drug abuse patient.[facility] HospitalIn the event this information is protected by the Federal Confidentiality of Alcohol and Drug Abuse Patient Records regulations: The Federal rules restrict any use of the information to criminally investigate or prosecute any alcohol or drug abuse patient.[facility] HospitalIn the event this information is protected by the Federal Confidentiality of Alcohol and Drug Abuse Patient Records regulations: The Federal rules restrict any use of the information to criminally investigate or prosecute any alcohol or drug abuse patient.[facility] HospitalIn the event this information is protected by the Federal Confidentiality of Alcohol and Drug Abuse Patient Records regulations: The Federal rules restrict any use of the information to criminally investigate or prosecute any alcohol or drug abuse patient.[facility] HospitalIn the event this information is protected by the Federal Confidentiality of Alcohol and Drug Abuse Patient Records regulations: The Federal rules restrict any use of the information to criminally investigate or prosecute any alcohol or drug abuse patient.[facility] HospitalIn the event this information is protected by the Federal Confidentiality of Alcohol and Drug Abuse Patient Records regulations: The Federal rules restrict any use of the information to criminally investigate or prosecute any alcohol or drug abuse patient.[facility] HospitalIn the event this information is protected by the Federal Confidentiality of Alcohol and Drug Abuse Patient Records regulations: The Federal rules restrict any use of the information to criminally investigate or prosecute any alcohol or drug abuse patient.[facility] ClinicIn the event this information is protected by the Federal Confidentiality of Alcohol and Drug Abuse Patient Records regulations: The Federal rules restrict any use of the information to criminally investigate or prosecute any alcohol or drug abuse patient.[facility] HospitalIn the event this information is protected by the Federal Confidentiality of Alcohol and Drug Abuse Patient Records regulations: The Federal rules restrict any use of the information to criminally investigate or prosecute any alcohol or drug abuse patient.[facility] HospitalIn the event this information is protected by the Federal Confidentiality of Alcohol and Drug Abuse Patient Records regulations: The Federal rules restrict any use of the information to criminally investigate or prosecute any alcohol or drug abuse patient.[facility] HospitalIn the event this information is protected by the Federal Confidentiality of Alcohol and Drug Abuse Patient Records regulations: The Federal rules restrict any use of the information to criminally investigate or prosecute any alcohol or drug abuse patient.[facility] HospitalIn the event this information is protected by the Federal Confidentiality of Alcohol and Drug Abuse Patient Records regulations: The Federal rules restrict any use of the information to criminally investigate or prosecute any alcohol or drug abuse patient.[facility] HospitalIn the event this information is protected by the Federal Confidentiality of Alcohol and Drug Abuse Patient Records regulations: The Federal rules restrict any use of the information to criminally investigate or prosecute any alcohol or drug abuse patient.[facility] HospitalIn the event this information is protected by the Federal Confidentiality of Alcohol and Drug Abuse Patient Records regulations: The Federal rules restrict any use of the information to criminally investigate or prosecute any alcohol or drug abuse patient.[facility] HospitalIn the event this information is protected by the Federal Confidentiality of Alcohol and Drug Abuse Patient Records regulations: The Federal rules restrict any use of the information to criminally investigate or prosecute any alcohol or drug abuse patient.[facility] HospitalIn the event this information is protected by the Federal Confidentiality of Alcohol and Drug Abuse Patient Records regulations: The Federal rules restrict any use of the information to criminally investigate or prosecute any alcohol or drug abuse patient.[facility] HospitalIn the event this information is protected by the Federal Confidentiality of Alcohol and Drug Abuse Patient Records regulations: The Federal rules restrict any use of the information to criminally investigate or prosecute any alcohol or drug abuse patient.[facility] HospitalIn the event this information is protected by the Federal Confidentiality of Alcohol and Drug Abuse Patient Records regulations: The Federal rules restrict any use of the information to criminally investigate or prosecute any alcohol or drug abuse patient.[facility] HospitalIn the event this information is protected by the Federal Confidentiality of Alcohol and Drug Abuse Patient Records regulations: The Federal rules restrict any use of the information to criminally investigate or prosecute any alcohol or drug abuse patient.[facility] HospitalIn the event this information is protected by the Federal Confidentiality of Alcohol and Drug Abuse Patient Records regulations: The Federal rules restrict any use of the information to criminally investigate or prosecute any alcohol or drug abuse patient.[facility] HospitalIn the event this information is protected by the Federal Confidentiality of Alcohol and Drug Abuse Patient Records regulations: The Federal rules restrict any use of the information to criminally investigate or prosecute any alcohol or drug abuse patient.[facility] HospitalIn the event this information is protected by the Federal Confidentiality of Alcohol and Drug Abuse Patient Records regulations: The Federal rules restrict any use of the information to criminally investigate or prosecute any alcohol or drug abuse patient.[facility] HospitalIn the event this information is protected by the Federal Confidentiality of Alcohol and Drug Abuse Patient Records regulations: The Federal rules restrict any use of the information to criminally investigate or prosecute any alcohol or drug abuse patient.[facility] HospitalIn the event this information is protected by the Federal Confidentiality of Alcohol and Drug Abuse Patient Records regulations: The Federal rules restrict any use of the information to criminally investigate or prosecute any alcohol or drug abuse patient.[facility] HospitalIn the event this information is protected by the Federal Confidentiality of Alcohol and Drug Abuse Patient Records regulations: The Federal rules restrict any use of the information to criminally investigate or prosecute any alcohol or drug abuse patient.[facility] Care Teams (unrecognized sec tion and content) Paint Spray Inspector Relationship Specialty Start Date End Date German Robertson [address] [facility] [address] [place] [address] PCP - General Internal Medicine 11/26/11 Team [...] Primary Care Provider, Attendi ng Provider Active Paint Spray Inspector Relationship Specialty Start Date End Date German Robertson MD [address] [place] [address] PCP - General Internal Medicine 11/26/11 Team [...] MD Attending Provider, Referring Provi roxi Active Paint Spray Inspector Relationship Specialty Start Date End Date German Robertson MD [address] [place] [address] PCP - General Internal Medicine 11/26/11 Paint Spray Inspector Relationship Specialty Start Date End Date German Robertson MD [address] [place] [address] PCP - General Internal Medicine 11/26/11 Paint Spray Inspector Relationship Specialty Start Date End Date German Robertson MD [address] [place] [address] PCP - General Internal Medicine 11/26/11 Paint Spray Inspector Relationship Specialty Start Date End Date German Robertson MD [address] [address] [place] [address] PCP - General Internal Medicine 11/26/11 Paint Spray Inspector Relationship Specialty Start Date End Date German Robertson [address] [place] [address] PCP - General 02/15/14 Vicenta Noriega MD [address] [place] [address] Medical Oncology 11/08/22 Paint Spray Inspector Relationship Specialty Start Date End Date German Robertson [address] [place] [id number] PCP - General 02/15/14 Vicenta Noriega MD [address] [place] [address] Medical Oncology 11/08/22 Paint Spray Inspector Relationship Specialty Start Date End Date German Robertson MD [address] [facility] [address] [place] [address] PCP - General Internal Medicine 11/26/11 Paint Spray Inspector Relationship Specialty Start Date End Date German Robertson MD [address] [address] PCP - General Internal Medicine 11/26/11 Paint Spray Inspector Relationship Specialty Start Date End Date German Robertson MD [address] [facility] [address] [place] [address] PCP - General Internal Medicine 11/26/11 Paint Spray Inspector Relationship Specialty Start Date End Date German Robertson MD [address] [address] PCP - General Internal Medicine 11/26/11 Paint Spray Inspector Relationship Specialty Start Date End Date German Robertson MD [address] [place] [address] PCP - General Internal Medicine 11/26/11 Paint Spray Inspector Relationship Specialty Start Date End Date German Robertson MD [address] [facility] [address] [place] [address] PCP - General Internal Medicine 11/26/11 Paint Spray Inspector Relationship Specialty Start Date End Date German Robertson MD [address] [facility] [address] [place] [address] PCP - General Internal Medicine 11/26/11 Paint Spray Inspector Relationship Specialty Start Date End Date German Robertson MD [address] [address] PCP - General Internal Medicine 11/26/11 Paint Spray Inspector Relationship Specialty Start Date End Date German Robertson MD [address] [address] PCP - General Internal Medicine 11/26/11 Paint Spray Inspector Relationship Specialty Start Date End Date German Robertson MD [address] [facility] [address] [place] [address] PCP - General Internal Medicine 11/26/11 Paint Spray Inspector Relationship Specialty Start Date End Date German Robertson MD [address] [facility] [address] [place] [address] PCP - General Internal Medicine 11/26/11 Paint Spray Inspector Relationship Specialty Start Date End Date German Robertson MD [address] [address] PCP - General Internal Medicine 11/26/11 Paint Spray Inspector Relationship Specialty Start Date End Date German Robertson MD [address] [address] PCP - General Internal Medicine 11/26/11 Paint Spray Inspector Relationship Specialty Start Date End Date German Robertson MD [address] [address] PCP - General Internal Medicine 11/26/11 Paint Spray Inspector Relationship Specialty Start Date End Date German Robertson MD [address] [address] PCP - General Internal Medicine 11/26/11 Paint Spray Inspector Relationship Specialty Start Date End Date German Robertson MD [address] [address] PCP - General Internal Medicine 11/26/11 Paint Spray Inspector Relationship Specialty Start Date End Date German Robertson MD [address] [address] PCP - General Internal Medicine 11/26/11 Paint Spray Inspector Relationship Specialty Start Date End Date German Robertson MD [address] [address] PCP - General Internal Medicine 11/26/11 Paint Spray Inspector Relationship Specialty Start Date End Date German Robertson MD [address] [address] PCP - General Internal Medicine 11/26/11 Paint Spray Inspector Relationship Specialty Start Date End Date German Robertson MD [address] [place] [address] PCP - General Internal Medicine 11/26/11 Paint Spray Inspector Relationship Specialty Start Date End Date German Robertson MD [address] [place] [address] PCP - General Internal Medicine 11/26/11 Paint Spray Inspector Relationship Specialty Start Date End Date German Robertson [address] [place] [phone] PCP - General 02/15/14 Vicenta Noriega MD [address] [place] [phone] Medical Oncology 11/08/22 Paint Spray Inspector Relationship Specialty Start Date End Date German Robertson MD [address] [place] [address] PCP - General Internal Medicine 11/26/11 Paint Spray Inspector Relationship Specialty Start Date End Date German Robertson MD [address] [place] [address] PCP - General Internal Medicine 11/26/11 Paint Spray Inspector Relationship Specialty Start Date End Date German Robertson [address] [place] [phone] PCP - General 02/15/14 Vicenta Noriega MD [address] [place] [address] Medical Oncology 11/08/22 Sabas You MD [address] [place] [address] Consulting Physician Hematology and Oncology 07/24/24 Paint Spray Inspector Relationship Specialty Start Date End Date German Robertson [address] [place] [phone] PCP - General 02/15/14 Vicenta Noriega MD [address] [place] [address] Medical Oncology 11/08/22 Sabas You MD [address] [place] [address] Consulting Physician Hematology and Oncology 07/24/24 Paint Spray Inspector Relationship Specialty Start Date End Date German Robertson [address] [place] [phone] PCP - General 02/15/14 Vicenta Noriega MD [address] [place] [address] Medical Oncology 11/08/22 Sabas You MD [address] [place] [address] Consulting Physician Hematology and Oncology 07/24/24 Paint Spray Inspector Relationship Specialty Start Date End Date German Robertson [address] [place] [address] PCP - General 02/15/14 Vicenta Noriega MD [address] [place] [address] Medical Oncology 11/08/22 Sabas You MD [address] [place] [address] Consulting Physician Hematology and Oncology 07/24/24 Team Status: Inactive Member Role Status Dates Dr. German Robertson MD Primary Care Provider Active Start: August 09, 2024 End: August 09, 2024 Dr. German Robertson MD Attending Provider Active Start: August 09, 2024 End: August 09, 2024 Paint Spray Inspector Relationship Specialty Start Date End Date German Robertson MD [address] [place] [address] PCP - General Internal Medicine 11/26/11 Paint Spray Inspector Relationship Specialty Start Date End Date German Robertson MD [address] [place] [address] PCP - General Internal Medicine 11/26/11 Paint Spray Inspector Relationship Specialty Start Date End Date German Robertson MD [address] [place] [address] PCP - General Internal Medicine 11/26/11 Paint Spray Inspector Relationship Specialty Start Date End Date German Robertson MD [address] [place] [address] PCP - General Internal Medicine 11/26/11 Paint Spray Inspector Relationship Specialty Start Date End Date German Robertson MD [address] [facility] [address] [place] [address] PCP - General Internal Medicine 11/26/11 Paint Spray Inspector Relationship Specialty Start Date End Date German Robertson MD [address] [facility] [address] [place] [address] PCP - General Internal Medicine 11/26/11 Edward Nicole, RN Specialty Executive Compensation Analyst Hematology/Oncology 09/24/24 Paint Spray Inspector Relationship Specialty Start Date End Date German Robertson MD [address] [facility] [address] [place] [address] PCP - General Internal Medicine 11/26/11 Edward Nicole RN Specialty Executive Compensation Analyst Hematology/Oncology 09/24/24 Paint Spray Inspector Relationship Specialty Start Date End Date German Robertson MD [address] [address] PCP - General Internal Medicine 11/26/11 Edward Nicole RN Specialty Executive Compensation Analyst Hematology/Oncology 09/24/24 Paint Spray Inspector Relationship Specialty Start Date End Date German Robertson MD [address] [facility] [address] [place] [address] PCP - General Internal Medicine 11/26/11 Edward Nicole, RN Specialty Executive Compensation Analyst Hematology/Oncology 09/24/24 Team Status: Active Member Role/Relationship Status Dates Dr. German Robertson MD Primary Care Provider Active Team Status: Inactive Member Role/Relationship Status Dates Dr. German Robertson MD Primary Care Provider Active Start: August 09, 2024 End: August 09, 2024 Dr. German Robertson MD Attending Provider Active Start: August 09, 2024 End: August 09, 2024 Team Status: Inactive Member Role/Relationship Status Dates Dr. German Robertson MD Primary Care Provider Active Start: October 15, 2024 End: October 15, 2024 Dr. Guicho Cordova MD Attending Provider Active Start: October 15, 2024 End: October 15, 2024 Dr. Guicho Cordova MD Referring Provider Active Start: October 15, 2024 End: October 15, 2024 Paint Spray Inspector Relationship Specialty Start Date End Date German Robertson MD [address] [place] [address] PCP - General Internal Medicine 11/26/11 Edward Nicole, RN Specialty Executive Compensation Analyst Hematology/Oncology 09/24/24 Paint Spray Inspector Relationship Specialty Start Date End Date German Robertson MD [address] [place] [address] PCP - General Internal Medicine 11/26/11 Edward Nicole, RN Specialty Executive Compensation Analyst Hematology/Oncology 09/24/24 Paint Spray Inspector Relationship Specialty Start Date End Date German Robertson MD [address] [place] [address] PCP - General Internal Medicine 11/26/11 Edward Nicole, RN Specialty Executive Compensation Analyst Hematology/Oncology 09/24/24 Paint Spray Inspector Relationship Specialty Start Date End Date German Robertson MD [address] [place] [address] PCP - General Internal Medicine 11/26/11 Edward Nicole, RN Specialty Executive Compensation Analyst Hematology/Oncology 09/24/24 Paint Spray Inspector Relationship Specialty Start Date End Date German Robertson [address] [place] [phone] PCP - General 02/15/14 Vicenta Noriega MD [address] [place] [address] Medical Oncology 11/08/22 Sabas You MD [address] [place] [address] Consulting Physician Hematology and Oncology 07/24/24 Goals (unrecognized section and content) Goals may be documented in a n alternate sectionGoals may be documented in an alternate sectionGoals may be documented in an alternate sectionGoals may be documented in an alternate sectionGoals may be documented in an alternate section Reason for Visit (unrecogniz ed section and content) Reason Comments Injections Specialty Diagnoses / Procedures Referred By Contac t Referred To Contact Diagnoses Myelodysplastic syndrome, unspecified (HCC) Procedures EPOETIN KHLOE, NON-ESRD Vicenta Noriega MD [address] [address] Phone: tel: fax: INFUSION [address] [place] [address] Phone: tel: fax: Referral ID Status Reason Start Date Expiration Date Visits Requested Visits Authorized [id number] Authorized Patient Cleared - Admin/Chairm an/Director advise to proceed or did not respond 08/11/2024 01/05/2025 1 16 Reason Comments Imm/Inj Reason Comments Transfusion Specialty Diagnoses / Procedures Referred By Contac t Referred To Contact Diagnoses Myelodysplastic syndrome, unspecified (HCC) Vicenta Noriega MD [address] [facility] [address] [place] [address] Phone: tel: fax: INFUSION [address] [place] [address] Phone: tel: fax: Referral ID Status Reason Start Date Expiration Date V isits Requested Visits Authorized [id number] Authorized 08/11/2024 11/10/2024 1 16 Specialty Diagnoses / Procedures Referred By Contac t Referred To Contact Diagnoses Cancer of unknown origin (HCC) Myelodysplastic syndrome, unspecified (HCC) Procedures INJ LUSPATERCEPT-AAMT,0.25 MG Garcia-AnthonyVicenta sorto MD [address] [address] Phone: tel: fax: INFUSION [address] [place] [address] Phone: tel: fax: Referral ID Status Reason Start Date Expiration Date Visits Requested Visits Authorized [id number] Authorized Patient Cleared - INN Insurance Found Patient Cleared - Admin/Chairma n/Director advise to proceed or did not respond 03/08/2023 02/24/2025 99 99 Reason Comments Infusion Transfusion Specialty Diagnoses / Procedures Referred By Contac t Referred To Contact Diagnoses Cancer of unknown origin (HCC) Myelodysplastic syndrome, unspecified (HCC) Procedures INJ LUSPATERCEPT-AAMT,0.25 MG Garcia-AnthonyVicenta sorto MD [address] [address] Infusion [place] [address] [place] [address] Referral ID Status Reason Start Date Expiration Date Visits Requested Visits Authorized [id number] Authorized Patient Cleared - INN Insurance Found Patient Cleared - Admin/Chairma n/Director advise to proceed or did not respond 03/08/2023 02/24/2025 99 99 Specialty Diagnoses / Procedures Referred By Contac t Referred To Contact Diagnoses Anemia, unspecified type Procedures DIAGNOSTIC BONE MARROW BIOPSIES & ASPIRATIONS DIAGNOSTIC BONE MARROW BIOPSY(IES) AND ASPIRATION(S) [facility] [address] [place] [address] Referral ID Status Reason Start Date Expiration Date Visits Re quested Visits Authorized [id number] 1 1 Specialty Diagnoses / Procedures Referred By Contac t Referred To Contact Hematology / HEMONC INFUSION Diagnoses *1 unit blood - type & screen already done Procedures BLOOD TRANSTREATMENT 2.5 HOURS Vicenta Noriega MD [address] [place] [address] Ciaran Treat [facility] [place] [address] [place] [address] Referral ID Status Reason Start Date Expiration Date V isits Requested Visits Authorized [id number] Authorized 09/12/2022 02/24/2023 1 99 Reason Comments Established Patient Specialty Diagnoses / Procedures Referred By Contac t Referred To Contact Hematology/Oncology / HEMATOLOGY/ONCOLOGY Diagnoses 2 month ov + labs Procedures OFFICE/OUTPATIENT ESTABLISHED MOD MDM 30-39 MIN EST PATIENT Vicenta Noriega MD [address] [place] [address] Vicenta Noriega MD [address] [address] Referral ID Status Reason Start Date Expiration Date Visits Re quested Visits Authorized [id number] Closed 02/25/2022 02/24/2023 1 1 Reason Onset Date Comments Medication Problem 12/29/2022 Specialty Diagnoses / Procedures Referred By Contac t Referred To Contact Diagnoses Cancer of unknown origin (HCC) Procedures INJ LUSPATERCEPT-AAMT,0.25 MG Vicenta Noriega MD [address] [address] Ciaran Treat [facility] [place] [address] [place] [address] Referral ID Status Reason Start Date Expiration Date Visits Requested Visits Authorized [id number] Authorized Patient Cleared - INN Insurance Found Patient Cleared - Admin/Chairma n/Director advise to proceed or did not respond 03/08/2023 02/25/2024 1 99 Specialty Diagnoses / Procedures Referred By Contac t Referred To Contact Diagnoses Cancer of unknown origin (HCC) Procedures INJ LUSPATERCEPT-AAMT,0.25 MG Garcia-Vicenta Cruz MD [address] [address] Infusion [place] [address] [place] [address] Referral ID Status Reason Start Date Expiration Date Visits Requested Visits Authorized [id number] Authorized Patient Cleared - INN Insurance Found Patient Cleared - Admin/Chairma n/Director advise to proceed or did not respond 03/08/2023 09/06/2023 1 99 Reason Comments Follow Up TIA Reason Comments Established Patient Ov, results Specialty Diagnoses / Procedures Referred By Contac t Referred To Contact Hematology/Oncology / HEMATOLOGY/ONCOLOGY Diagnoses bx results Procedures OFFICE/OUTPATIENT ESTABLISHED MOD MDM 30-39 MIN EST PATIENT Vicenta Noriega MD [address] [address] Vicenta Noriega MD [address] [address] Referral ID Status Reason Start Date Expiration Date Visits Re quested Visits Authorized [id number] Closed 02/25/2022 02/24/2023 1 1 Reason Comments Patient Update Results Specialty Diagnoses / Procedures Referred By Contac t Referred To Contact Diagnoses Cancer of unknown origin (HCC) Myelodysplastic syndrome, unspecified (HCC) Procedures INJ LUSPATERCEPT-AAMT,0.25 MG Garcia-Vicenta Cruz MD [address] [place] [address] Infusion [place] [address] [place] [address] Referral ID Status Reason Start Date Expiration Date Visits Requested Visits Authorized [id number] Authorized Patient Cleared - INN Insurance Found Patient Cleared - Admin/Chairma n/Director advise to proceed or did not respond 03/08/2023 09/06/2023 99 99 Specialty Diagnoses / Procedures Referred By Contac t Referred To Contact Hematology/Oncology / HEMATOLOGY/ONCOLOGY Diagnoses 1 month ov + lab Procedures OFFICE/OUTPATIENT ESTABLISHED MOD MDM 30-39 MIN EST PATIENT Vicenta Noriega MD [address] [place] [address] Vicenta Noriega MD [address] [place] [address] Referral ID Status Reason Start Date Expiration Date Visits Re quested Visits Authorized [id number] Closed 02/25/2022 02/24/2023 1 1 Specialty Diagnoses / Procedures Referred By Contac t Referred To Contact Hematology/Oncology / HEMATOLOGY/ONCOLOGY Diagnoses 6 wk ov + labs Procedures OFFICE/OUTPATIENT ESTABLISHED MOD MDM 30-39 MIN EST PATIENT Vicenta Noriega MD [address] [place] [address] Vicenta Noriega MD [address] [place] [address] Referral ID Status Reason Start Date Expiration Date Visits Re quested Visits Authorized [id number] Closed 02/25/2022 02/24/2023 1 1 Specialty Diagnoses / Procedures Referred By Contac t Referred To Contact Hematology/Oncology / HEMATOLOGY/ONCOLOGY Diagnoses 1 month ov+ labs Procedures OFFICE/OUTPATIENT ESTABLISHED MOD MDM 30-39 MIN EST PATIENT Vicenta Noriega MD [address] [place] [address] Vicenta Noriega MD [address] [place] [address] Referral ID Status Reason Start Date Expiration Date Visits Re quested Visits Authorized [id number] Closed 02/25/2022 02/24/2023 1 1 Specialty Diagnoses / Procedures Referred By Contac t Referred To Contact Hematology/Oncology / HEMATOLOGY/ONCOLOGY Diagnoses Encounter for general adult medical examination without abnormal findings 6 wk ov + labs Procedures OFFICE/OUTPATIENT ESTABLISHED MOD MDM 30-39 MIN EST PATIENT Vicenta Noriega MD [address] [place] [address] Vicenta Noriega MD [address] [place] [address] Referral ID Status Reason Start Date Expiration Date Visits Re quested Visits Authorized [id number] Closed 02/25/2023 02/25/2024 1 1 Referral ID Status Reason Start Date Expiration Date Visits Requested Visits Authorized [id number] Authorized Patient Cleared - INN Insurance Found Patient Cleared - Admin/Chairma n/Director advise to proceed or did not respond 03/08/2023 12/06/2023 99 99 Reason Comments Patient Question Reason Comments Patient Update Reason Comments Follow Up Referral ID Status Reason Start Date Expiration Date Visits Requested Visits Authorized [id number] New Request Patient Cleared - INN Insurance Found Patient Cleared - Admin/Chairma n/Director advise to proceed or did not respond 03/08/2023 12/06/2023 99 99 Reason Comments Established Patient 2 month ov Referral ID Status Reason Start Date Expiration Date Visits Requested Visits Authorized [id number] Authorized Patient Cleared - INN Insurance Found Patient Cleared - Admin/Chairma n/Director advise to proceed or did not respond 03/08/2023 02/25/2024 99 99 Reason Comments Infusion Reason Comments Chemotherapy Treatment Specialty Diagnoses / Procedures Referred By Contac t Referred To Contact HEMONC INFUSION Diagnoses BROOM HANDLE DIPPER RYTELO AUTH EXP 02/24/25 KM Procedures TREATMENT 5 HOURS Vicenta Noriega MD [address] [address] [facility] [place] [facility] [address] [place] [address] Referral ID Status Reason Start Date Expiration Date V isits Requested Visits Authorized [id number] Authorized 01/08/2024 02/24/2025 1 99 Reason Comments Scheduling Specialty Diagnoses / Procedures Referred By Contac t Referred To Contact HEMONC INFUSION Diagnoses BROOM HANDLE DIPPER RYTELO AUTH EXP 02/24/25 KM Procedures TREATMENT 5 HOURS Vicenta Noriega MD [address] [address] Phone: tel: fax: Hematology/Oncology [address] [place] [address] Phone: tel: fax: Referral ID Status Reason Start Date Expiration Date Visits Requested Visits Authorized [id number] Authorized Patient Cleared - Admin/Chairm an/Director advise to proceed or did not respond 02/24/2025 1 99 Reason Comments Established Patient Ov Reason Onset Date Comments Hypertension 06/20/2024 Reason Comments New Patient Myelodysplastic synd aric, Clonal cytopenia of undetermined significance (CCUS) Reason Onset Date Comments Labs Only 07/27/2024 Reason Comments Follow-up Reason Comments Established Patient Bone marrow results Reason Comments Transfusion Injections Specialty Diagnoses / Procedures Referred By Contmanuel t Referred To Contact Diagnoses Myelodysplastic syndrome, unspecified (HCC) Viecnta Noriega MD [address] [address] Phone: tel: fax: INFUSION [address] [place] [address] Phone: tel: fax: Reason Comments Consult Reason Comments Research IRB 5024 Informed Co nsent Reason Onset Date Comments SPP Oral Oncology/hematology - Treatment Referra l 11/06/2024 Deferasirox 360mg Insurance Authorization 11/06/2024 Pending PA Reason Onset Date Comments Other 01/04/2025 ED calling for p hysician PRN Active and Recently Administ ered Medications (unrecognized section and content) Medication Order 05/30/2022 05/31/2022 06/01/2022 fentaNYL 50 mcg/mL injection (SUBLIMAZE) INTRAVENOUS, X (OR/PROCEDURE) PRN, Starting on 06/01/22 at 1025, Until 06/02/22 at 0303, Intraprocedure [...] 1230, Intraprocedure 1223 (Given - Provid er: Neli Quinn RN) HYDROcodone 5 mg - acetaminophen [...] 1230, Intraprocedure 1223 (Given - Provid er: Neli Quinn RN) ondansetron (PF) 4 mg injection [...] Recorded weight), SUBCUTANEOUS, ONCE, 1 dose, On Rody 05/30/23 at 1500, Refrigerate - EXP: (24 HR) [...] BE BASED ON THE PRIMARY CLINICAL RECORDS. [facility] [facility]. provides no warranty or guarantee of the accuracy or completeness of information in this document."
[2025-02-12] VITALS (7 sets, daily range): BP systolic 117–169; BP diastolic 46–73; PULSE 67–79; RESP 16; TEMP 35.5–36.2; O2SAT 97–100; BMI 30.5
== END 2025-02-12 23:59 | disposition home or self-care (01) ==
PROVIDERS: PCP Internal Medicine; Referring Provider Internal Medicine Hematology & Oncology; Visit Provider Internal Medicine Hematology & Oncology
DX: D46.20 Refractory anemia with excess of blasts, unspecified (principal)
CPT/HCPCS: 36430; 86850; 86900; 86901; 86920; 86921; 86922; P9040; A4216